=== PATIENT | male | born 2005 | race Two or more races ===

== ENCOUNTER 2023-07-08 09:20 | Outpatient (OUT) | payer OTHER, SELFPAY ==
[2023-07-08 12:25] LABS: TSH W/ REFLEX FT4 1.138 uIU/mL (0.516-4.130)
[2023-07-09 16:10] LABS: Thyroglobulin Antibody <1.0 IU/mL (0.0-0.9); Thyroid Peroxidase (TPO) Ab 9 IU/mL (0-26)
== END 2023-07-08 09:21 | disposition home or self-care (01) ==
LOC: LAB 09:24
PROVIDERS: PCP Nurse Practitioner Family; Visit Provider Nurse Practitioner Family
DX: E55.9 Vitamin D deficiency, unspecified (principal); Z83.49 Family history of other endocrine, nutritional and metabolic diseases; R53.83 Other fatigue
CPT/HCPCS: 36415; 82306; 84443; 86376; 86800

== ENCOUNTER 2023-08-06 20:53 | Emergency (ER) | payer OTHER, SELFPAY ==
[2023-08-06 21:00] VITALS: BP 149/88; PULSE 93; TEMP 36.4; O2SAT 100; BMI 51.5
--- NOTE | 2023-08-06 21:14 | XR_ITS ---
[address] [address] Patient Name: JET HERRERA MRN: [facility]:[id number] date: 2005 Sex: M Assigned Patient Location: ER Current Patient Location: ER Accession/Order Number: [id number] Exam Date: 08/06/2023 21:20 Report Date: 08/06/2023 21:54 At the request of: ELVIN MARKER Procedure: XR wrist LT min 3V Exam: Radiographs: XR hand LT min 3V, XR wrist LT min 3V Reason for exam: [facility] hand/wrist injury Comparison: None XR/XR wrist LT min 3V IMPRESSION: Unremarkable left hand radiographs. Unremarkable left wrist radiographs. Electronically authenticated by: YOSSI BUSTAMANTE Date: 08/06/2023 21:54
--- NOTE | 2023-08-06 21:14 | XR_ITS ---
[address] [address] Patient Name: JET HERRERA MRN: [id number] date: 2005 Sex: M Assigned Patient Location: ER Current Patient Location: ER Accession/Order Number: [id number] Exam Date: 08/06/2023 21:20 Report Date: 08/06/2023 21:54 At the request of: ELVIN MARKER Procedure: XR hand LT min 3V Exam: Radiographs: XR hand LT min 3V, XR wrist LT min 3V Reason for exam: [facility] hand/wrist injury Comparison: None XR/XR hand LT min 3V IMPRESSION: Unremarkable left hand radiographs. Unremarkable left wrist radiographs. Electronically authenticated by: YOSSI BUSTAMANTE Date: 08/06/2023 21:54
--- NOTE | 2023-08-06 21:14 | ED.UPPEXIN1 ---
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 The patient was at work and states he was picking up an approximately 10 pound item from a toad which he has to slide onto something else and at the time he was picking it up felt a snapping sensation in the medial aspect of his left hand. He now has pain and swelling at the 5th medial metacarpal region. There is some redness in this area. He states he can feel a lump in the proximal metacarpal area which I do not appreciate. He denies any blunt trauma. There is no numbness or tingling. He took an ibuprofen when the symptoms started several hours ago. No additional injuries or complaints. Related Data Home Medications ?Medication ?Instructions ?Recorded ?Confirmed cholecalciferol (vitamin D3) 1,250 50,000 unit PO .weekly 08/06/23 08/06/23 mcg (50,000 unit) capsule meloxicam 15 mg tablet 15 mg PO DAILY 08/06/23 08/06/23 Allergies Allergy/AdvReac Type Severity Reaction Status Date / Time Penicillins Allergy Hives Verified 08/06/23 21:06 Review of Systems ROS Status of ROS 10 or more systems reviewed and unremarkable except as noted in history and below Exam Narrative Exam Narrative: Nurses note and vital signs reviewed and patient is not hypoxic. General: Obese male resting currently on the stretcher, no respiratory distress Skin: Warm, dry, no pallor noted. There is no rash noted. Head: Normocephalic, atraumatic Eye: Normal conjunctiva, no drainage, EOMI. PERRL Cardiovascular: Regular Rate and Rhythm Respiratory: Patient is in no distress, no accessory muscle use, lungs are clear to auscultation, no wheezing, rales or rhonchi Musculoskeletal: There Is some mild redness to the medial aspect of the left hand overlying the 5th metacarpal. There is tenderness along the 5th metacarpal with no bony deformity is notable abnormality noted. The area is tender to palpation without appreciable swelling or bruising. As previously stated there was some erythema. Is able to approximate the thumb, index long and ring finger but not able to approximate the 5th finger. He is able to fully extend all of his fingers and make a loose fist. Distal sensation is intact. Capillary refill is less than 2 seconds. Radial pulse is brisk and equal. There is also some mild tenderness in the distal medial forearm no palpable deformity or abnormality. he is able to supinate and pronate without much discomfort but has discomfort with medial and lateral angulation of the hand. Neurological: A&O x4, normal speech Psychiatric: Cooperative Constitutional Vital Signs, click to edit/add: Last Vital Signs Temp 97.6 F 08/06/23 21:00 Pulse 93 H 08/06/23 21:00 Resp 16 08/06/23 21:00 BP 149/88 H 08/06/23 21:00 Pulse Ox 100 08/06/23 21:00 O2 Del Method Room Air 08/06/23 21:00 Course Vital Signs Vital signs: Vital Signs Temperature 97.6 F 08/06/23 21:00 Pulse Rate 93 H 08/06/23 21:00 Respiratory Rate 16 08/06/23 21:00 Blood Pressure 149/88 H 08/06/23 21:00 Pulse Oximetry 100 08/06/23 21:00 Oxygen Delivery Method Room Air 08/06/23 21:00 Temperature 97.6 F 08/06/23 21:00 Pulse Rate 93 H 08/06/23 21:00 Respiratory Rate 16 08/06/23 21:00 Blood Pressure 149/88 H 08/06/23 21:00 Pulse Oximetry 100 08/06/23 21:00 Oxygen Delivery Method Room Air 08/06/23 21:00 MDM - Extremity Injury (Upper) MDM Narrative Medical decision making narrative: 18-year-old male who is right-hand dominant presents for evaluation of pain in his left 5th metacarpal. He was at work and taking up in approximately 10 pound item and felt a snapping sensation in his left 5th metacarpal area. He has tenderness in this area with some decreased range of motion. His family is otherwise normal. I expect him that that was likely a tendon that he felt snapping and he may have some degree of tendinitis but clinically I do not suspect a tendon rupture. His neuro exam was normal. Capillary refill is normal. X-ray of the hand and wrist is negative for acute findings. He was placed in a wrist hand splint to immobilize this area of his hand and will be referred to outpatient Workmen's Comp. He had taken ibuprofen prior to arrival after the incident occurred but will be given a prescription for ibuprofen 600 mg to use as needed for ongoing pain. I believe he is stable for return to work despite this injury as the risks will also provide she will support to his hand. Medical Records Medical records narrative: [place] [address] XRay Report Signed Patient: JET HERRERA MR#: [id number] : 2005 Acct:[id number] Age/Sex: 18 / M ADM Date: 08/06/23 Loc: ER Attending Dr: Ordering Physician: Cindy Jacobson Date of Service: 08/06/23 Procedure(s): XR hand LT min 3V Accession Number(s): [id number] cc: Cindy Jacobson; SHERRI ORDOÑEZ [facility] [place] [id number] Patient Name: JET HERRERA MRN: [id number] date: 2005 Sex: M Assigned Patient Location: ER Current Patient Location: ER Accession/Order Number: [id number] Exam Date: 08/06/2023 21:20 Report Date: 08/06/2023 21:54 At the request of: CINDY JACOBSON Procedure: XR hand LT min 3V Exam: Radiographs: XR hand LT min 3V, XR wrist LT min 3V Reason for exam: [facility] hand/wrist injury Comparison: None XR/XR hand LT min 3V IMPRESSION: Unremarkable left hand radiographs. Unremarkable left wrist radiographs. Electronically authenticated by: YOSSI BUSTAMANTE Date: 08/06/2023 21:54 Discharge Plan Discharge Stand Alone Forms: Portal Instructions Clinical Impression: Left hand tendonitis Patient Disposition: Home, Self-Care Time of Disposition Decision: 22:11 Condition: Good Prescriptions / Home Meds: No Action cholecalciferol (vitamin D3) 1,250 mcg (50,000 unit) capsule 50,000 unit PO .weekly meloxicam 15 mg tablet 15 mg PO DAILY Print Language: Belarusian Instructions: Tendinitis (ED) Additional Instructions: Follow up with [facility] for further evaluation and treatment. Use ice, ibuprofen and the splint provided to you until symptoms resolve. Referrals: SHERRI ORDOÑEZ [Primary Care Provider] - 1 week
--- OUTSIDE RECORDS SUMMARY | 2023-08-06 21:14 | XMS_ITS | CCD ---
Author Organization [facility] Care Team Providers Care Reservoir Engineer Name Role Phone NAOMI ROD Unavailable Unavailable SELF, REFERRED Unavailable Unavailable HOUSE, BALJIT P Unavailable Unavailable HOUSE, BALJIT P Unavailable Unavailable NAOMI ROD Unavailable Unavailable SELF, REFERRED Unavailable Unavailable Devika King Unavailable HOUSE, DR COLLAZO Admitting Unavailable HOUSE, DR COLLAZO Primary Care Unavailable HOUSE, DR COLLAZO Consulting Unavailable HOUSE, DR COLLAZO Attending Unavailable HOUSE, DR COLLAZO Admitting Unavailable HOUSE, DR COLLAZO Primary Care Unavailable HOUSE, DR COLLAZO Consulting Unavailable HOUSE, DR COLLAZO Attending Unavailable HOUSE, DR COLLAZO Admitting Unavailable HOUSE, DR COLLAZO Consulting Unavailable HOUSE, DR COLLAZO Attending Unavailable [facility] [place], DR SANJAY Gavin Consulting Unavailable Asaad, Imad Unavailable DO Baljit Pisano Primary Care Provider [phone] MD Wilver Felton Attending Provider MD Lewis Mirza Attending Provider [phone] Manuelad, Imad Attending Unavailable HouseBaljit Primary Care Unavailable Asaad, Imad Admitting Unavailable House, Baljit Primary Care Unavailable Asaad, Imad Admitting Unavailable Asaad, Caad Attending Unavailable House, Baljit Primary Care Unavailable Lewis Mirza Admitting Unavailable Lewis Mirza Attending Unavailable Asaad, Imariana Attending Unavailable House, Baljit Primary Care Unavailable Asaad, Imad Admitting Unavailable HOUSE, BALJIT P Primary Care Unavailable Rafita Stover MD Attending Unavailable HOUSE, BALJIT P Admitting Unavailable HOUSE, BALJIT P Primary Care Unavailable HOUSE, BALJIT P Attending Unavailable HOUSE, BALJIT P Admitting Unavailable HOUSE, BALJIT P Attending Unavailable HOUSE, BALJIT P Primary Care Unavailable HOUSE, BALJIT P Admitting Unavailable HOUSE, BALJIT P Attending Unavailable HOUSE, BALJIT P Primary Care Unavailable HOUSE, BALJIT P Primary Care Unavailable Rafita Stover MD Attending Unavailable Rafita Stover MD Attending Unavailable HOUSE, BALJIT P Primary Care Unavailable HOUSE, BALJIT P Primary Care Unavailable Rafita Stover MD Attending Unavailable HOUSE, BALJIT P Primary Care Unavailable Rafita Stover MD Attending Unavailable HOUSE, BALJIT P Primary Care Unavailable Rafita Stover MD Attending Unavailable HOUSE, BALJIT P Primary Care Unavailable SANJAY WEBSTER Attending Unavailable WING, SANJAY Manning Attending Unavailable WING, SANJAY Manning Referring Unavailable HOUSE, BALJIT P Primary Care Unavailable House DO, Baljit P Primary Care Provider SHENMELAE VCYNYA Attending Unavailable HOUSE, BALJIT P Referring Unavailable HOUSE, BALJIT P Primary Care Unavailable SHENDGE V, MAGALIE Referring Unavailable HOUSE, BALJIT P Primary Care Unavailable Allergies Allergy Classification Reported Allergen(s) Allergy Type Date of Onset Reaction(s) Facility (1 source) penicillAMINE Drug Allergy [facility] Other (6 sources) Penicillin; Translations: [penicillin] Drug Allergy Unknown [facility] Repository (3 sources) Penicillins; Translations: [PENICILLINS] Drug allergy (disorder) 7 [facility] Repository (1 source) Penicillins Propensity to adverse reactions to drug 7 [facility] Medications Current Medications Medication Drug Class(es) Dates Sig (Normalized) Sig (Original) bismuth subsalicylate 17.5 mg/ml oral suspension (1 source) Bismuth Start: 12-26-2022 take 15 mL by mouth every six hours as needed bismuth subsalicylate (PEPTO BISMOL) 262 mg/15 mL suspension Take 15 mL by mouth every 6 (six) hours as needed for indigestion. 360 mL 0 12/26/2022 Active cariprazine (1 source) Atypical Antipsychotic Vraylar Active famotidine 20 mg oral tablet (1 source) Histamine-2 Receptor Antagonist Start: 12-26-2022 take 1 tablet by mouth in the morning, then take 1 tablet by mouth at bedtime famotidine (PEPCID) 20 mg tablet Take 1 tablet (20 mg total) by mouth in the morning and 1 tablet (20 mg total) before bedtime. 20 tablet 0 12/26/2022 Active ibuprofen 600 mg oral tablet (2 sources) Nonsteroidal Anti-inflammatory Drug Start: 06-30-2023 take 1 tablet by mouth every eight hours as needed for pain ibuprofen (MOTRIN) 600 mg tablet Take 1 tablet (600 mg total) by mouth every 8 (eight) hours as needed for pain. 12 tablet 0 06/30/2023 Active take 2 tablets by [facility] twice daily at mealtime as needed Ibuprofen 200 MG 2 tablet with food or milk as needed Orally twice a day Active meloxicam 15 mg oral tablet (1 source) Nonsteroidal Anti-inflammatory Drug Start: 07-21-2023 meloxicam (MOBIC) 15 mg tablet Indications: Chronic fatigue , Pain in both hands Take one tablet in the morning with food 30 tablet 2 07/21/2023 Active ondansetron 4 mg disintegrating oral tablet (1 source) Serotonin-3 Receptor Antagonist Start: 12-26-2022 take 1 tablet by mouth every eight hours as needed for nausea ondansetron ODT (ZOFRAN ODT) 4 mg disintegrating tablet Dissolve 1 tablet (4 mg total) on tongue every 8 (eight) hours as needed for nausea for up to 10 doses. 10 tablet 0 12/26/2022 Active tiZANidine 2 mg oral tablet (1 source) Central alpha-2 Adrenergic Agonist Start: 06-30-2023 take 1 tablet by mouth every six hours as needed tiZANidine (ZANAFLEX) 2 mg tablet Take 1 tablet (2 mg total) by mouth every 6 (six) hours as needed for muscle spasms. 12 tablet 0 06/30/2023 Active Problems Active Problems Problem Classification Problem Date Documented Da te Episodic/Chronic Hepatitis (7 sources) Hepatitis A test positive; Translations: [Hepatitis A without hepatic coma] Episodic Hepatitis (1 source) Hepatitis; Translations: [Hepatitis A without hepatic coma] Onset: 03-19-2023 Immunizations and screening for infectious disease (9 sources) Contact with and (suspected) exposure to other viral communicable diseases; Translations: [Anti-nuclear factor positive] Onset: 07-21-2023 Episodic Malaise and fatigue (2 sources) Fatigue; Translations: [Chronic fatigue, unspecified] Onset: 07-21-2023 07-21-2023 Chronic Malaise and fatigue (2 sources) Other fatigue; Translations: [Other fatigue] Onset: 04-21-2023 Episodic Nonspecific chest pain (2 sources) Other chest pain; Translations: [Chest pain, unspecified] Onset: 06-30-2023 Episodic Other connective tissue disease (4 sources) Pain in right lower leg; Translations: [PAIN IN RIGHT LOWER LEG] Onset: 07-03-2022 Episodic Other connective tissue disease (1 source) Pain of bilateral hands; Translations: [Pain in right hand] 07-21-2023 Episodic Other connective tissue disease (1 source) Pain in right hand; Translations: [Pain in right hand] Onset: 07-21-2023 Episodic Other connective tissue disease (1 source) Pain in left hand; Translations: [Pain in left hand] Onset: 07-21-2023 Episodic Other liver diseases (5 sources) Steatosis of liver; Translations: [Fatty (change of) liver, not elsewhere classified] Chronic Other liver diseases (4 sources) Fatty (change of) liver, not elsewhere classified; Translations: [Fatty (change of) liver, not elsewhere classified] Onset: 04-01-2023 Chronic Other lower respiratory disease (1 source) Rib pain Onset: 06-30-2023 Episodic Other nervous system disorders (1 source) Bilateral carpal tunnel syndrome; Translations: [Carpal tunnel syndrome, bilateral upper limbs] 07-21-2023 Chronic Other nervous system disorders (1 source) Carpal tunnel syndrome, bilateral upper limbs; Translations: [Carpal tunnel syndrome, bilateral upper limbs] Onset: 07-21-2023 Chronic Other non-traumatic joint disorders (4 sources) Other specified arthritis, unspecified site; Translations: [OTHER SPECIFIED ARTHRITIS UNS SITE] Onset: 09-15-2022 Chronic Other screening for suspected conditions (not mental disorders or infectious disease) (10 sources) Elevated liver enzymes level; Translations: [Other specified abnormal findings of blood chemistry] Onset: 03-19-2023 Episodic Other upper respiratory infections (1 source) Acute upper respiratory infection, unspecified Episodic Unclassified (1 source) Pain in right knee; Translations: [Pain in right knee] Onset: 05-19-2023 Unclassified (1 source) Underarm pain Onset: 06-30-2023 Unclassified (1 source) New Patient Onset: 07-21-2023 Past or Other Problems Problem Classification Problem Date Documented Da te Episodic/Chronic Appendicitis and other appendiceal conditions (1 source) Acute appendicitis; Translations: [Unspecified acute appendicitis] Onset: 02-20-2022 02-20-2022 Episodic Results Test Name Value Interpretation Reference Range Facility XR OSSEOUS SURVEY LIMITEDon 07-22-2023 XR OSSEOUS SURVEY LIMITED XR OSSEOUS SURVEY LIMITED XR OSSEOUS SURVEY LIMITED Clinical history:Pain in both hands Comparison: None. Findings: AP and oblique views of the left and right hand and left and right wrist obtained the same time. There is no acute process, fracture or dislocation. Alignment and mineralization are within normal limits. No erosive changes or soft tissue calcifications. Impression: Unremarkable evaluation of the bilateral hands and wrists. No evidence of acute process or erosive change. Finalized by Dean Palm MD on 07/22/2023 8:15 PM Normal [facility] BASIC METABOLIC PANLon 06-30 Anion gap [Moles/Vol] 6 mmol/L Normal 5-[address] [facility] Comment on above: Performed By: #### B ASAF, CBCA, 04678-2, 19173-0 #### [facility] ([id number]) [address] [place] [address] 77521 Calcium [Mass/Vol] 8.9 mg/dL Normal 8.5-10.5 [facility] Comment on above: Performed By: #### B ASAF, CBCA, 10886-5, 80533-3 #### [facility] ([id number]) [address] [place] [address] 96784 Chloride [Moles/Vol] 104 mmol/L Normal 98-109 [facility] Comment on above: Performed By: #### B MP, CBCA, 06383-0, 08758-1 #### [facility] ([id number]) [address] [place] [address] 47938 CO2 [Moles/Vol] 24 mmol/L Normal 22-32 [facility] Comment on above: Performed By: #### B MP, CBCA, 41581-6, 48561-9 #### [facility] ([id number]) [address] [place] [address] 14088 Creatinine [Mass/Vol] 0.83 mg/dL Normal 0.70-1.[address] [facility] Comment on above: Result Comment: METH OD TRACEABLE TO IDMS STANDARD Performed By: #### B SHERLYN RON, 52505-2, 80972-6 #### [facility] ([id number]) [address] [place] [address] 56321 eGFR (CKD-EPI) NON-RACE DEPENDENT >90 Normal >59 [facility] Comment on above: Result Comment: Reported eGFR is based on the CKD-EPI 2020 equation that does not use a race coefficient. Performed By: #### B SHERLYN RON, 70897-5, 82537-6 #### [facility] ([id number]) [address] [place] [address] 09844 Glucose [Mass/Vol] 103 mg/dL High 65-99 [facility] Comment on above: Performed By: #### B SHERLYN RON, 39191-2, 26672-7 #### [facility] ([id number]) [address] [place] [address] 58614 Potassium [Moles/Vol] 3.7 mmol/L Normal 3.5-5.[address] [facility] Comment on above: Performed By: #### B SHERLYN RON, 57528-8, 42387-2 #### [facility] ([id number]) [address] [place] [address] 50132 Sodium [Moles/Vol] 134 mmol/L Normal 134-146 [facility] Comment on above: Performed By: #### B SHERLYN RON, 52063-5, 11738-0 #### [facility] ([id number]) [address] [place] [address] 57903 Urea nitrogen [Mass/Vol] 10 mg/dL Normal 5-23 [facility] Comment on above: Performed By: #### B SHERLYN RON, 07851-1, 01161-7 #### [facility] ([id number]) [address] [place] [address] 97852 CBC AND AUTO DIFFon -20-20 24 ABSOLUTE BASOPHIL 0.0 X10E9/L Normal 0.0-0.2 [facility] Comment on above: Performed By: #### B MP, CBCA, 16764-3, 42943-4 #### [facility] ([id number]) [address] [place] [address] 33923 ABSOLUTE NEUTROPHIL 2.6 X10E9/L Normal 1.5-6.6 [facility] Comment on above: Performed By: #### B MP, CBCA, 51381-2, 45520-2 #### [facility] ([id number]) [address] [place] [address] 41249 Basophils/100 WBC (Bld) 0.6 % Normal [facility] Comment on above: Performed By: #### B MP, CBCA, 01929-3, 55001-6 #### [facility] ([id number]) [address] [place] [address] 88264 Eosinophils (Bld) [#/Vol] 0.1 10*3/uL Normal 0.0-0.4 [facility] Comment on above: Performed By: #### B MP, CBCA, 51198-3, 51203-1 #### [facility] ([id number]) [address] [place] [address] 77739 Eosinophils/100 WBC (Bld) 2.7 % Normal [facility] Comment on above: Performed By: #### B MP, CBCA, 71992-8, 74122-6 #### [facility] ([id number]) [address] [place] [address] 17974 Erythrocyte distribution width (RBC) [Ratio] 13.3 % Normal 11.5-15.0 [facility] Comment on above: Performed By: #### B MP, CBCA, 16751-8, 27973-7 #### [facility] ([id number]) [address] [place] [address] 12153 Hematocrit (Bld) [Volume fraction] 41.2 % Normal 39-49 [facility] Comment on above: Performed By: #### B MP, CBCA, 85253-4, 13546-2 #### [facility] ([id number]) [address] [place] [address] 38893 Hemoglobin (Bld) [Mass/Vol] 14.3 g/dL Normal 13.0-17.0 [facility] Comment on above: Performed By: #### B MP, CBCA, 48342-3, 06470-1 #### [facility] ([id number]) [address] [place] [address] 24872 Lymphocytes (Bld) [#/Vol] 1.4 10*3/uL Normal 1.0-3.5 [facility] Comment on above: Performed By: #### B ASAF, CBCA, 78880-0, 31962-5 #### [facility] ([id number]) [address] [place] [address] 36492 Lymphocytes/100 WBC (Bld) 30.6 % Normal [facility] Comment on above: Performed By: #### B MP, CBCA, 31894-3, 33111-4 #### [facility] ([id number]) [address] [place] [address] 58456 MCH (RBC) [Entitic mass] 29.7 pg Normal 27-34 [facility] Comment on above: Performed By: #### B MP, CBCA, 90226-7, 51467-6 #### [facility] ([id number]) [address] [place] [address] 00769 MCHC (RBC) [Mass/Vol] 34.7 g/dL Normal 32-[address] [facility] Comment on above: Performed By: #### B ASAF, CBCA, 55507-5, 73070-3 #### [facility] ([id number]) [address] [place] [address] 20903 MCV (RBC) [Entitic vol] 86 fL Normal 80-100 [facility] Comment on above: Performed By: #### B ASAF, CBCA, 08470-5, 26566-3 #### [facility] ([id number]) [address] [place] [address] 72364 Monocytes (Bld) [#/Vol] 0.6 10*3/uL Normal 0-0.9 [facility] Comment on above: Performed By: #### B ASAF, CBCA, 52107-5, 97454-9 #### [facility] ([id number]) [address] [place] [address] 70808 Monocytes/100 WBC (Bld) 11.8 % Normal [facility] Comment on above: Performed By: #### B ASAF, CBCA, 92602-9, 05077-1 #### [facility] ([id number]) [address] [place] [address] 22508 Neutrophils/100 WBC (Bld) 54.3 % Normal [facility] Comment on above: Performed By: #### B ASAF, CBCA, 31127-9, 04999-0 #### [facility] ([id number]) [address] [place] [address] 81946 Platelet mean volume (Bld) [Entitic vol] 9.1 fL Normal 7-12 [facility] Comment on above: Performed By: #### B ASAF, CBCA, 70965-9, 63780-5 #### [facility] ([id number]) [address] [place] [address] 08323 Platelets (Bld) [#/Vol] 236 10*3/uL Normal 150-450 [facility] Comment on above: Performed By: #### B MP, CBCA, 03564-4, 41689-2 #### [facility] ([id number]) [address] [place] [address] 47307 RBC COUNT 4.82 X10E12/L Normal 4.10-5.70 [facility] Comment on above: Performed By: #### B MP, CBCA, 12978-3, 20379-8 #### [facility] ([id number]) [address] [place] [address] 40476 WBC (Bld) [#/Vol] 4.7 10*3/uL Normal 4.0-11.0 [facility] Comment on above: Performed By: #### B MP, CBCA, 84100-1, 50669-6 #### [facility] ([id number]) [address] [place] [address] 02249 Fibrin D-dimer DDU (PPP) [Ma ss/Vol]on 06-30-2023 D DIMER <150 Normal <255 [facility] Comment on above: Result Comment: Results <255 ng/mL DDU: The presence of a VTE can safely be excluded with a negative D-Dimer result and Wells score. A negative result doesn't exclude the possibility of DIC. The test be repeated along with other diagnostic tests if the patient's symptoms persist or worsen. [email or web address] Performed By: #### B MP, CBCA, 09431-5, 34941-0 #### [facility] ([id number]) [address] [place] [address] 41989 TROPONIN Ion 06-30-2023 Troponin I.cardiac [Mass/Vol] ng/mL Normal 0.00-0.04 [facility] Comment on above: Performed By: #### B MP, CBCA, 72183-7, 54259-9 #### [facility] ([id number]) [address] [facility] [place]], [place] [address] XR CHEST 2 VWSon 06-30-2023 XR CHEST 2 VWS XR CHEST 2 VWS XR CHEST 2 VWS INDICATION: right sided chest pain. Chest pain FINDINGS: Cardiac silhouette is normal in size. Trachea midline. No focal pulmonary consolidation. No pleural effusion. No pneumothorax. IMPRESSION: 1. No acute findings. Finalized by Dwaine Sharpe MD on 06/30/2023 5:11 AM Normal [facility] Miscellaneouson 06-22-2023 Miscellaneous [id number] [id number]#[id number] FF Normal [facility] Office/Clinic Noteon 024 Miscellaneous [id number] 17612 [id number]#1.00OTGT IFF Normal [facility] Office/Clinic Note [id number] [id number]#1.00OTGT IFF [facility] Alanine aminotransferase [En zymatic activity/volume] in Serum or PlasmaOrdered By: Lewis Mirza on 05-19-2023 ALT [Catalytic activity/Vol] 56 U/L 7-52 [facility] Albumin [Mass/volume] in Ser um or Plasma by Bromocresol green (BCG) dye binding methoOrdered By: Lewis Mirza on 05-19-2023 Albumin BCG dye [Mass/Vol] 4.4 g/dL 3.5-5.7 [facility] Alkaline phosphatase [Enzyma tic activity/volume] in Serum or PlasmaOrdered By: Lewis Mirza on 05-19-2023 ALP [Catalytic activity/Vol] 58 U/L 34-104 [facility] Anti-Centromere B Antibodies on 05-19-2023 Anti-Centromere B Antibodies <0.2 Normal 0.0-0.9 [facility] Comment on above: Result Comment: Perf ormed at: - [facility] [address] [id number] Drafter Electrical: Zechariah Paula PhD, Phone: [phone] Performed By: #### I GG, SMAB, MITOM2, L-K MICRO, ALPHA PHEN, HEMOCHROM, CERULOP, TENA #### [facility] , #### PARVEEN, TSH3 #### [address] Anti-RNPon 05-19-2023 Anti-DIRECTOR REGULATORY COMPLIANCE 0.6 Normal 0.0-0.9 [facility] Comment on above: Performed By: #### I GG, SMAB, MITOM2, L-K MICRO, ALPHA PHEN, HEMOCHROM, CERULOP, TENA #### [facility] , #### PARVEEN, TSH3 #### [address] Anti-Newberry Antibodieson Anti-Newberry Antibodies <0.2 Normal 0.0-0.9 [facility] Comment on above: Performed By: #### I GG, SMAB, MITOM2, L-K MICRO, ALPHA PHEN, HEMOCHROM, CERULOP, TENA #### [facility] , #### PARVEEN, TSH3 #### [address] Anti-dsDNA(DBL)Abon 05-19-19 24 Anti-dsDNA(DBL)Ab 3 Normal 0-9 [facility] Comment on above: Result Comment: Nega tive <5 Equivocal 5 - 9 Positive >9 Performed By: #### I GG, SMAB, MITOM2, L-K MICRO, ALPHA PHEN, HEMOCHROM, CERULOP, TENA #### [facility] , #### PARVEEN, TSH3 #### [address] Aspartate aminotransferase [ Enzymatic activity/volume] in Serum or PlasmaOrdered By: Lewis Mirza on 05-19-2023 AST [Catalytic activity/Vol] 30 U/L 13-39 [facility] Automated erythrocytes count in urine sediment (number/area)Ordered By: Lewis Mirza on 05-19-2023 RBC Auto (Urine sed) [#/Area] 1-2 [HPF] 0-4 [facility] Automated leukocytes count i n urine sediment (number/area)Ordered By: Lewis Mirza on 05-19-2023 WBC Auto (Urine sed) [#/Area] None seen [HPF] 0-4 [facility] Basophils Auto (Bld) [#/Vol] Ordered By: Lewis Mirza on 05-19-2023 Basophils (Bld) [#/Vol] 0.0 10*3/uL 0.0-0.2 [facility] Basophils/100 WBC Auto (Bld) Ordered By: Lewis Mirza on 05-19-2023 Basophils/100 WBC (Bld) 0.7 % . [facility] Bilirubin Test strip Ql (U)O rdered By: Lewis Mirza on 05-19-2023 Bilirubin Ql (U) Negative Negative [facility] Bilirubin.total [Mass/volume ] in Serum or PlasmaOrdered By: Lewis Mirza on 05-19-2023 Bilirubin [Mass/Vol] 0.8 mg/dL 0.3-1.0 [facility] C reactive protein [Mass/vol ume] in Serum or PlasmaOrdered By: Lewis Mirza on 05-19-2023 CRP [Mass/Vol] < 0.5 mg/dL 0.0-0.5 [facility] C-Reactive Proteinon 024 CRP [Mass/Vol] mg/L Normal 0.0-0.5 [facility] Comment on above: Performed By: #### I GG, SMAB, MITOM2, L-K MICRO, ALPHA PHEN, HEMOCHROM, CERULOP, TENA #### [facility] , #### PARVEEN, TSH3 #### [facility] [address] Calcium [Mass/volume] in Ser um or PlasmaOrdered By: Lewis Mirza on 05-19-2023 Calcium [Mass/Vol] 9.4 mg/dL 8.6-10.3 [facility] Carbon dioxide, total [Moles /volume] in Serum or PlasmaOrdered By: Lewis Mirza on 05-19-2023 CO2 [Moles/Vol] 23.5 mmol/L 21.0-31.0 [facility] Chloride [Moles/volume] in S saima or PlasmaOrdered By: Lewis Mirza on 05-19-2023 Chloride [Moles/Vol] 107 mmol/L 98-107 [facility] Color Auto (U)Ordered By: Jenny Mirza on 05-19-2023 Color (U) Yellow Yellow [facility] Complement C3on 05-19-2023 Complement C3 161 mg/dL Normal 82-167 [facility] Comment on above: Result Comment: Perf ormed at: [facility] [address] [id number] Drafter Electrical: Zechariah Paula PhD, Phone: [phone] Performed By: #### I GG, SMAB, MITOM2, L-K MICRO, ALPHA PHEN, HEMOCHROM, CERULOP, TENA #### [facility] , #### PARVEEN, TSH3 #### [facility] [address] Complement C4on 05-19-2023 Complement C4 24 mg/dL Normal 12-38 [facility] Comment on above: Performed By: #### I GG, SMAB, MITOM2, L-K MICRO, ALPHA PHEN, HEMOCHROM, CERULOP, TENA #### [facility] , #### PARVEEN, TSH3 #### [facility] [address] [place] [address] [place] Complement Total (CH50)on Complement Total (CH50) 49 Normal >41 [facility] Comment on above: Result Comment: Age Male Female 1 - 30 days Not Estab. Not Estab. 31 days - 6 months >32 >20 7 months - 17 years >39 >39 >17 years >41 >41 NOTE: The adult ( >17 years ) reference interval range is used to flag abnormals on this report. If the patient is 17 years old or younger, use the table above to determine out of range values. Performed at: [facility] [address] [place] [id number] Drafter Electrical: Zechariah Paula PhD, Phone: [phone] PERFORMED BY: [place] [address] PATHOLOGIST LINING MAKER LISA COOLEY M.D. Performed By: #### I GG, SMAB, MITOM2, L-K MICRO, ALPHA PHEN, HEMOCHROM, CERULOP, TENA #### [facility] , #### PARVEEN, TSH3 #### [address] Complete Blood Count Auto Di ffon 05-19-2023 Basophils (Bld) [#/Vol] 0.0 10*3/uL Normal 0.0-0.2 [facility] Comment on above: Performed By: #### I GG, SMAB, MITOM2, L-K MICRO, ALPHA PHEN, HEMOCHROM, CERULOP, TENA #### [facility] , #### PARVEEN, TSH3 #### [address] Basophils/100 WBC (Bld) 0.7 % Normal . [facility] Comment on above: Performed By: #### I GG, SMAB, MITOM2, L-K MICRO, ALPHA PHEN, HEMOCHROM, CERULOP, TENA #### [facility] , #### PARVEEN, TSH3 #### [address] Eosinophils (Bld) [#/Vol] 0.2 10*3/uL Normal 0.0-0.45 [facility] Comment on above: Performed By: #### I GG, SMAB, MITOM2, L-K MICRO, ALPHA PHEN, HEMOCHROM, CERULOP, TENA #### [facility] , #### PARVEEN, TSH3 #### [address] Eosinophils/100 WBC (Bld) 2.7 % Normal . [facility] Comment on above: Performed By: #### I GG, SMAB, MITOM2, L-K MICRO, ALPHA PHEN, HEMOCHROM, CERULOP, TENA #### [facility] , #### PARVEEN, TSH3 #### [address] Erythrocyte distribution width (RBC) [Ratio] 13.0 % Normal 12.0-14.8 [facility] Comment on above: Performed By: #### I GG, SMAB, MITOM2, L-K MICRO, ALPHA PHEN, HEMOCHROM, CERULOP, TENA #### [facility] , #### PARVEEN, TSH3 #### [address] Hematocrit (Bld) [Volume fraction] 41.7 % Normal 38.8-50.0 [facility] Comment on above: Performed By: #### I GG, SMAB, MITOM2, L-K MICRO, ALPHA PHEN, HEMOCHROM, CERULOP, TENA #### [facility] , #### PARVEEN, TSH3 #### [address] Hemoglobin (Bld) [Mass/Vol] 14.2 g/dL Normal 13.0-17.0 [facility] Comment on above: Performed By: #### I GG, SMAB, MITOM2, L-K MICRO, ALPHA PHEN, HEMOCHROM, CERULOP, TENA #### [facility] , #### PARVEEN, TSH3 #### [address] Lymphocytes (Bld) [#/Vol] 2.1 10*3/uL Normal 1.00-4.8 [facility] Comment on above: Performed By: #### I GG, SMAB, MITOM2, L-K MICRO, ALPHA PHEN, HEMOCHROM, CERULOP, TENA #### [facility] , #### PARVEEN, TSH3 #### [address] Lymphocytes/100 WBC (Bld) 32.5 % Normal . [facility] Comment on above: Performed By: #### I GG, SMAB, MITOM2, L-K MICRO, ALPHA PHEN, HEMOCHROM, CERULOP, TENA #### [facility] , #### PARVEEN, TSH3 #### [address] MCH (RBC) [Entitic mass] 29.3 pg Normal 27.5-35.2 [facility] Comment on above: Performed By: #### I GG, SMAB, MITOM2, L-K MICRO, ALPHA PHEN, HEMOCHROM, CERULOP, TENA #### [facility] , #### PARVEEN, TSH3 #### [address] MCV (RBC) [Entitic vol] 86.0 fL Normal 83.5-101 [facility] Comment on above: Performed By: #### I GG, SMAB, MITOM2, L-K MICRO, ALPHA PHEN, HEMOCHROM, CERULOP, TENA #### [facility] , #### PARVEEN, TSH3 #### [address] Mean Corpuscular HGB Conc 34.1 g/dL Normal 32.5-35.6 [facility] Comment on above: Performed By: #### I GG, SMAB, MITOM2, L-K MICRO, ALPHA PHEN, HEMOCHROM, CERULOP, TENA #### [facility] , #### PARVEEN, TSH3 #### [address] Monocytes (Bld) [#/Vol] 0.7 10*3/uL Normal 0.0-0.8 [facility] Comment on above: Performed By: #### I GG, SMAB, MITOM2, L-K MICRO, ALPHA PHEN, HEMOCHROM, CERULOP, TENA #### [facility] , #### PARVEEN, TSH3 #### [address] Monocytes/100 WBC (Bld) 10.7 % Normal . [facility] Comment on above: Performed By: #### I GG, SMAB, MITOM2, L-K MICRO, ALPHA PHEN, HEMOCHROM, CERULOP, TENA #### [facility] , #### PARVEEN, TSH3 #### [address] Neutrophils (Bld) [#/Vol] 3.4 10*3/uL Normal 1.8-7.7 [facility] Comment on above: Performed By: #### I GG, SMAB, MITOM2, L-K MICRO, ALPHA PHEN, HEMOCHROM, CERULOP, TENA #### [facility] , #### PARVEEN, TSH3 #### [address] Neutrophils/100 WBC (Bld) 53.4 % Normal . [facility] Comment on above: Performed By: #### I GG, SMAB, MITOM2, L-K MICRO, ALPHA PHEN, HEMOCHROM, CERULOP, TENA #### [facility] , #### PARVEEN, TSH3 #### [address] NRBC% 0.2 /100{WBC} Normal 0-0.5 [facility] Comment on above: Performed By: #### I GG, SMAB, MITOM2, L-K MICRO, ALPHA PHEN, HEMOCHROM, CERULOP, TENA #### [facility] , #### PARVEEN, TSH3 #### [address] Platelet mean volume (Bld) [Entitic vol] 9.2 fL Normal 6.6-10.1 [facility] Comment on above: Performed By: #### I GG, SMAB, MITOM2, L-K MICRO, ALPHA PHEN, HEMOCHROM, CERULOP, TENA #### [facility] , #### PARVEEN, TSH3 #### [address] Platelets (Bld) [#/Vol] 254 10*3/uL Normal 150-450 [facility] Comment on above: Performed By: #### I GG, SMAB, MITOM2, L-K MICRO, ALPHA PHEN, HEMOCHROM, CERULOP, TENA #### [facility] , #### PARVEEN, TSH3 #### [address] RBC (Bld) [#/Vol] 4.85 10*6/uL Normal 3.90-5.60 [facility] Comment on above: Performed By: #### I GG, SMAB, MITOM2, L-K MICRO, ALPHA PHEN, HEMOCHROM, CERULOP, TENA #### [facility] , #### PARVEEN, TSH3 #### [address] WBC (Bld) [#/Vol] 6.4 10*3/uL Normal 4.1-10.5 [facility] Comment on above: Performed By: #### I GG, SMAB, MITOM2, L-K MICRO, ALPHA PHEN, HEMOCHROM, CERULOP, TENA #### [facility] , #### PARVEEN, TSH3 #### [address] Comprehensive Metabolic Pane adrianna 05-19-2023 Albumin [Mass/Vol] 4.4 g/dL Normal 3.5-5.7 [facility] Comment on above: Performed By: #### I GG, SMAB, MITOM2, L-K MICRO, ALPHA PHEN, HEMOCHROM, CERULOP, TENA #### [facility] , #### PARVEEN, TSH3 #### [address] Albumin/Globulin [Mass ratio] 1.6 {ratio} Normal [facility] Comment on above: Performed By: #### I GG, SMAB, MITOM2, L-K MICRO, ALPHA PHEN, HEMOCHROM, CERULOP, TENA #### [facility] , #### PARVEEN, TSH3 #### [address] ALP [Catalytic activity/Vol] 58 U/L Normal 34-104 [facility] Comment on above: Performed By: #### I GG, SMAB, MITOM2, L-K MICRO, ALPHA PHEN, HEMOCHROM, CERULOP, TENA #### [facility] , #### PARVEEN, TSH3 #### [address] ALT [Catalytic activity/Vol] 56 U/L High 7-52 [facility] Comment on above: Performed By: #### I GG, SMAB, MITOM2, L-K MICRO, ALPHA PHEN, HEMOCHROM, CERULOP, TENA #### [facility] , #### PARVEEN, TSH3 #### [address] Anion gap [Moles/Vol] 14.3 mmol/L Normal 6.0-15.0 [facility] Comment on above: Performed By: #### I GG, SMAB, MITOM2, L-K MICRO, ALPHA PHEN, HEMOCHROM, CERULOP, TENA #### [facility] , #### PARVEEN, TSH3 #### [address] AST [Catalytic activity/Vol] 30 U/L Normal 13-39 [facility] Comment on above: Performed By: #### I GG, SMAB, MITOM2, L-K MICRO, ALPHA PHEN, HEMOCHROM, CERULOP, TENA #### [facility] , #### PARVEEN, TSH3 #### [address] Bilirubin [Mass/Vol] 0.8 mg/dL Normal 0.3-1.0 [facility] Comment on above: Performed By: #### I GG, SMAB, MITOM2, L-K MICRO, ALPHA PHEN, HEMOCHROM, CERULOP, TENA #### [facility] , #### PARVEEN, TSH3 #### [address] Calcium [Mass/Vol] 9.4 mg/dL Normal 8.6-10.3 [facility] Comment on above: Performed By: #### I GG, SMAB, MITOM2, L-K MICRO, ALPHA PHEN, HEMOCHROM, CERULOP, TENA #### [facility] , #### PARVEEN, TSH3 #### [address] Chloride [Moles/Vol] 107 mmol/L Normal 98-107 [facility] Comment on above: Performed By: #### I GG, SMAB, MITOM2, L-K MICRO, ALPHA PHEN, HEMOCHROM, CERULOP, TENA #### [facility] , #### PARVEEN, TSH3 #### [address] CO2 [Moles/Vol] 23.5 mmol/L Normal 21.0-31.0 [facility] Comment on above: Performed By: #### I GG, SMAB, MITOM2, L-K MICRO, ALPHA PHEN, HEMOCHROM, CERULOP, TENA #### [facility] , #### PARVEEN, TSH3 #### [address] Creatinine [Mass/Vol] 0.78 mg/dL Normal 0.70-1.30 [facility] Comment on above: Performed By: #### I GG, SMAB, MITOM2, L-K MICRO, ALPHA PHEN, HEMOCHROM, CERULOP, TENA #### [facility] , #### PARVEEN, TSH3 #### [address] GFR/1.73 sq M.predicted MDRD (S/P/Bld) [Vol rate/Area] mL/min/{1.73_m2} [facility] Comment on above: Performed By: #### I GG, SMAB, MITOM2, L-K MICRO, ALPHA PHEN, HEMOCHROM, CERULOP, TENA #### [facility] , #### PARVEEN, TSH3 #### [address] Globulin (S) [Mass/Vol] 2.7 g/dL [facility] Comment on above: Performed By: #### I GG, SMAB, MITOM2, L-K MICRO, ALPHA PHEN, HEMOCHROM, CERULOP, TENA #### [facility] , #### PARVEEN, TSH3 #### [address] Glucose [Mass/Vol] 98 mg/dL Normal 70-100 [facility] Comment on above: Result Comment: [facility] Glucose Reference Range is dependent on time and content of last meal. Glucose of more than 200 mg/dL in a nonstressed, ambulatory subject supports the diagnosis of Diabetes Mellitus. ADA recommended reference range Performed By: #### I GG, SMAB, MITOM2, L-K MICRO, ALPHA PHEN, HEMOCHROM, CERULOP, TENA #### [facility] , #### PARVEEN, TSH3 #### [address] Potassium [Moles/Vol] 3.8 mmol/L Normal 3.5-5.1 [facility] Comment on above: Performed By: #### I GG, SMAB, MITOM2, L-K MICRO, ALPHA PHEN, HEMOCHROM, CERULOP, TENA #### [facility] , #### PARVEEN, TSH3 #### [address] Protein [Mass/Vol] 7.1 g/dL Normal 6.4-8.9 [facility] Comment on above: Performed By: #### I GG, SMAB, MITOM2, L-K MICRO, ALPHA PHEN, HEMOCHROM, CERULOP, TENA #### [facility] , #### PARVEEN, TSH3 #### [address] Sodium [Moles/Vol] 141 mmol/L Normal 136-145 [facility] Comment on above: Performed By: #### I GG, SMAB, MITOM2, L-K MICRO, ALPHA PHEN, HEMOCHROM, CERULOP, TENA #### [facility] , #### PARVEEN, TSH3 #### [address] Urea nitrogen [Mass/Vol] 10 mg/dL Normal 7-25 [facility] Comment on above: Performed By: #### I GG, SMAB, MITOM2, L-K MICRO, ALPHA PHEN, HEMOCHROM, CERULOP, TENA #### [facility] , #### PARVEEN, TSH3 #### [address] Creatine Kinaseon 05-19-2023 CK [Catalytic activity/Vol] 112 U/L Normal 30-223 [facility] Comment on above: Result Comment: PERF ORMED BY: [place] [id number] PATHOLOGIST [employer] LISA COOLEY M.D. Performed By: #### I GG, SMAB, MITOM2, L-K MICRO, ALPHA PHEN, HEMOCHROM, CERULOP, TENA #### [facility] , #### PARVEEN, TSH3 #### [facility] [address] [place] [address] [place] Creatine kinase [Enzymatic a ctivity/volume] in Serum or PlasmaOrdered By: Lewis Mirza on 05-19-2023 CK [Catalytic activity/Vol] 112 U/L 30-223 [facility] Creatinine [Mass/volume] in Serum or PlasmaOrdered By: Lewis Mirza on 05-19-2023 Creatinine [Mass/Vol] 0.78 mg/dL 0.70-1.30 [facility] Dipstick and Microscopicon 0 05-19-2023 Appearance (U) Clear Normal Clear [facility] Comment on above: Order Comment: Reaso n for Exam Elevated LFTs Performed By: #### I GG, SMAB, MITOM2, L-K MICRO, ALPHA PHEN, HEMOCHROM, CERULOP, TENA #### [facility] , #### PARVEEN, TSH3 #### [facility] [address] [place] [address] Bacteria,Urine None Seen Normal None Seen [facility] Comment on above: Order Comment: Reaso n for Exam Elevated LFTs Performed By: #### I GG, SMAB, MITOM2, L-K MICRO, ALPHA PHEN, HEMOCHROM, CERULOP, TENA #### [facility] , #### PARVEEN, TSH3 #### [facility] [address] [place] [address] Bilirubin,Urine Negative Normal Negative [facility] Comment on above: Order Comment: Reaso n for Exam Elevated LFTs Performed By: #### I GG, SMAB, MITOM2, L-K MICRO, ALPHA PHEN, HEMOCHROM, CERULOP, TENA #### [facility] , #### PARVEEN, TSH3 #### [facility] [address] [place] [address] Color (U) Yellow Normal Yellow [facility] Comment on above: Order Comment: Reaso n for Exam Elevated LFTs Performed By: #### I GG, SMAB, MITOM2, L-K MICRO, ALPHA PHEN, HEMOCHROM, CERULOP, TENA #### [facility] , #### PARVEEN, TSH3 #### [facility] [address] [place] [address] Glucose Ql (U) Normal Normal Normal [facility] Comment on above: Order Comment: Reaso n for Exam Elevated LFTs Performed By: #### I GG, SMAB, MITOM2, L-K MICRO, ALPHA PHEN, HEMOCHROM, CERULOP, TENA #### [facility] , #### PARVEEN, TSH3 #### [address] Hyaline Casts,Urine None Seen Normal 0-8 [facility] Comment on above: Order Comment: Reaso n for Exam Elevated LFTs Result Comment: PERF ORMED BY: [place] [address] PATHOLOGIST [employer] LISA COOLEY M.D. Performed By: #### I GG, SMAB, MITOM2, L-K MICRO, ALPHA PHEN, HEMOCHROM, CERULOP, TENA #### [facility] , #### PARVEEN, TSH3 #### [address] Ketones Ql (U) Negative Normal Negative [facility] Comment on above: Order Comment: Reaso n for Exam Elevated LFTs Performed By: #### I GG, SMAB, MITOM2, L-K MICRO, ALPHA PHEN, HEMOCHROM, CERULOP, TENA #### [facility] , #### PARVEEN, TSH3 #### [address] Leukocyte esterase Test strip Ql (U) Negative Normal Negative [facility] Comment on above: Order Comment: Reaso n for Exam Elevated LFTs Performed By: #### I GG, SMAB, MITOM2, L-K MICRO, ALPHA PHEN, HEMOCHROM, CERULOP, TENA #### [facility] , #### PARVEEN, TSH3 #### [facility] [address] [place] [address] Nitrite,Urine Negative Normal Negative [facility] Comment on above: Order Comment: Reaso n for Exam Elevated LFTs Performed By: #### I GG, SMAB, MITOM2, L-K MICRO, ALPHA PHEN, HEMOCHROM, CERULOP, TENA #### [facility] , #### PARVEEN, TSH3 #### [address] Occult Blood,Urine Negative Normal Negative [facility] Comment on above: Order Comment: Reaso n for Exam Elevated LFTs Performed By: #### I GG, SMAB, MITOM2, L-K MICRO, ALPHA PHEN, HEMOCHROM, CERULOP, TENA #### [facility] , #### PARVEEN, TSH3 #### [address] pH (U) 5.5 [pH] Normal 5.0-9.0 [facility] Comment on above: Order Comment: Reaso n for Exam Elevated LFTs Performed By: #### I GG, SMAB, MITOM2, L-K MICRO, ALPHA PHEN, HEMOCHROM, CERULOP, TENA #### [facility] , #### PARVEEN, TSH3 #### [address] Protein,Urine Negative Normal Negative [facility] Comment on above: Order Comment: Reaso n for Exam Elevated LFTs Performed By: #### I GG, SMAB, MITOM2, L-K MICRO, ALPHA PHEN, HEMOCHROM, CERULOP, TENA #### [facility] , #### PARVEEN, TSH3 #### [address] RBC,Urine 1-2 Normal 0-4 [facility] Comment on above: Order Comment: Reaso n for Exam Elevated LFTs Performed By: #### I GG, SMAB, MITOM2, L-K MICRO, ALPHA PHEN, HEMOCHROM, CERULOP, TENA #### [facility] , #### PARVEEN, TSH3 #### [facility] [address] [place] [address] Specificy [place],Urine 1.023 Normal 1.001-1.03 0 [facility] Comment on above: Order Comment: Reaso n for Exam Elevated LFTs Performed By: #### I GG, SMAB, MITOM2, L-K MICRO, ALPHA PHEN, HEMOCHROM, CERULOP, TENA #### [facility] , #### PARVEEN, TSH3 #### [facility] [address] [place] [address] Squamous Epithelial Cell,Urine None Seen Normal 0-2 [facility] Comment on above: Order Comment: Reaso n for Exam Elevated LFTs Performed By: #### I GG, SMAB, MITOM2, L-K MICRO, ALPHA PHEN, HEMOCHROM, CERULOP, TENA #### [facility] , #### PARVEEN, TSH3 #### [facility] [address] [place] [address] Urobilinogen,Urine Normal Normal Normal [facility] Comment on above: Order Comment: Reaso n for Exam Elevated LFTs Performed By: #### I GG, SMAB, MITOM2, L-K MICRO, ALPHA PHEN, HEMOCHROM, CERULOP, TENA #### [facility] , #### PARVEEN, TSH3 #### [facility] [address] [place] [address] WBC,Urine None Seen Normal 0-4 [facility] Comment on above: Order Comment: Reaso n for Exam Elevated LFTs Performed By: #### I GG, SMAB, MITOM2, L-K MICRO, ALPHA PHEN, HEMOCHROM, CERULOP, TENA #### [facility] , #### PARVEEN, TSH3 #### [facility] [address] [place] [address] Eosinophils Auto (Bld) [#/Vo l]Ordered By: Lewis Mirza on 05-19-2023 Eosinophils (Bld) [#/Vol] 0.2 10*3/uL 0.0-0.45 [facility] Eosinophils/100 WBC Auto (Bl d)Ordered By: Lewis Mirza on 05-19-2023 Eosinophils/100 WBC (Bld) 2.7 % . [facility] Erythrocyte Sedimentation Ra andra 05-19-2023 ESR (Bld) [Velocity] 14 mm/h Normal 0-14 [facility] Comment on above: Result Comment: PERF ORMED BY: [facility] [address] [place] [address] PATHOLOGIST [employer] LISA COOLEY M.D. Performed By: #### I GG, SMAB, MITOM2, L-K MICRO, ALPHA PHEN, HEMOCHROM, CERULOP, TENA #### [facility] , #### PARVEEN, TSH3 #### [facility] [address] Erythrocyte distribution wid th Auto (RBC) [Ratio]Ordered By: Lewis Mirza on 05-19-2023 Erythrocyte distribution width (RBC) [Ratio] 13.0 % 12.0-14.8 [facility] Erythrocyte sedimentation ra te by Photometric methodOrdered By: Lewis Mirza on 05-19-2023 ESR Photometric method (Bld) [Velocity] 14 mm/hr 0-14 [facility] Globulin Calc (S) [Mass/Vol] Ordered By: Lewis Mirza on 05-19-2023 Globulin (S) [Mass/Vol] 2.7 g/dL [facility] Glucose [Mass/volume] in Ser um or PlasmaOrdered By: Lewis Mirza on 05-19-2023 Glucose [Mass/Vol] 98 mg/dL 70-100 [facility] Comment on above: ADA recommended refe rence rangeRandom Glucose Reference Range is dependent on time and content of last meal. Glucose of more than 200 mg/dL in a nonstressed, ambulatory subject supports the diagnosis of Diabetes Mellitus. Hematocrit Auto (Bld) [Volum e fraction]Ordered By: Lewis Mirza on 05-19-2023 Hematocrit (Bld) [Volume fraction] 41.7 % 38.8-50.0 [facility] Hemoglobin [Mass/volume] in BloodOrdered By: Lewis Mirza on 05-19-2023 Hemoglobin (Bld) [Mass/Vol] 14.2 g/dL 13.0-17.0 [facility] Ketones Auto test strip (U) [Mass/Vol]Ordered By: Lewis Mirza on 05-19-2023 Ketones (U) [Mass/Vol] Negative Negative [facility] - UrinalysisOrder ed By: Lewis Mirza on 05-19-2023 Hyaline casts LM Ql (Urine sed) None seen [LPF] 0-8 [facility] Leukocytes [#/volume] correc sirisha for nucleated erythrocytes in Blood by Automated counOrdered By: Lewis Mirza on 05-19-2023 WBC corrected for nucl RBC Auto (Bld) [#/Vol] 6.4 10*3/uL 4.1-10.5 [facility] Lymphocytes Auto (Bld) [#/Vo l]Ordered By: Lewis Mirza on 05-19-2023 Lymphocytes (Bld) [#/Vol] 2.1 10*3/uL 1.00-4.8 [facility] Lymphocytes/100 WBC Auto (Bl d)Ordered By: Lewis Mirza on 05-19-2023 Lymphocytes/100 WBC (Bld) 32.5 % . [facility] MCH Auto (RBC) [Entitic mass ]Ordered By: Lewis Mirza on 05-19-2023 MCH (RBC) [Entitic mass] 29.3 pg 27.5-35.2 [facility] MCHC Auto (RBC) [Mass/Vol]Or dered By: Lewis Mirza on 05-19-2023 MCHC (RBC) [Mass/Vol] 34.1 g/dL 32.5-35.6 [facility] MCV Auto (RBC) [Entitic vol] Ordered By: Lewis Mirza on 05-19-2023 MCV (RBC) [Entitic vol] 86.0 fL 83.5-101 [facility] Monocytes Auto (Bld) [#/Vol] Ordered By: Lewis Mirza on 05-19-2023 Monocytes (Bld) [#/Vol] 0.7 10*3/uL 0.0-0.8 [facility] Monocytes/100 WBC Auto (Bld) Ordered By: Lewis Mirza on 05-19-2023 Monocytes/100 WBC (Bld) 10.7 % . [facility] Neutrophils Auto (Bld) [#/Vo l]Ordered By: Lewis Mirza on 05-19-2023 Neutrophils (Bld) [#/Vol] 3.4 10*3/uL 1.8-7.7 [facility] Neutrophils/100 WBC Auto (Bl d)Ordered By: Lewis Mirza on 05-19-2023 Neutrophils/100 WBC (Bld) 53.4 % . [facility] Nitrite Test strip Ql (U)Ord ered By: Lewis Mirza on 05-19-2023 Nitrite Ql (U) Negative Negative [facility] No Panel InformationOrdered By: Lewis Mirza on 05-19-2023 Estimated GFR (CKD-EPI) > 60.0 mL/Min [facility] Creatinine Clearance (Chem N/A [facility] Nucleated erythrocytes [Pres ence] in Blood by Automated countOrdered By: Lewis Mirza on 05-19-2023 Nucleated RBC Auto Ql (Bld) 0.2 /100{WBC} 0-0.5 [facility] PM-SCL Antibodieson 05-19-19 24 [facility] PM-Scl Antibody <20 Normal <20 [facility] Comment on above: Result Comment: This test was developed and its performance characteristics determined by [facility]. It has not been cleared or approved by the Food and Drug Administration. Negative: <20 Weak Positive: 20 - 39 Moderate Positive: 40 - 80 Strong Positive: >80 Performed at: [facility] [address] [place] [address] [id number] [employer]: Issa Thao MD, Phone: [phone] Performed By: #### I GG, SMAB, MITOM2, L-K MICRO, ALPHA PHEN, HEMOCHROM, CERULOP, TENA #### [facility] , #### PARVEEN, TSH3 #### [facility] [address] Platelet mean volume Auto (B ld) [Entitic vol]Ordered By: Lewis Mirza on 05-19-2023 Platelet mean volume (Bld) [Entitic vol] 9.2 fL 6.6-10.1 [facility] Platelets Auto (Bld) [#/Vol] Ordered By: Lewis Mirza on 05-19-2023 Platelets (Bld) [#/Vol] 254 10*3/uL 150-450 [facility] Potassium [Moles/volume] in Serum or PlasmaOrdered By: Lewis Mirza on 05-19-2023 Potassium [Moles/Vol] 3.8 mmol/L 3.5-5.1 [facility] Protein Auto test strip (U) [Mass/Vol]Ordered By: Lewis Mirza on 05-19-2023 Protein (U) [Mass/Vol] Negative Negative [facility] Protein [Mass/volume] in Ser um or PlasmaOrdered By: Lewis Mirza on 05-19-2023 Protein [Mass/Vol] 7.1 g/dL 6.4-8.9 [facility] RBC Auto (Bld) [#/Vol]Ordere d By: Lewis Mirza on 05-19-2023 RBC (Bld) [#/Vol] 4.85 10*6/uL 3.90-5.60 [facility] RNA Polymerase IIion 024 RNA Polymerase IIi <20 Normal <20 [facility] Comment on above: Result Comment: Nega tive: <20 Weak Positive: 20 - 39 Moderate Positive: 40 - 80 Strong Positive: >80 Performed at: [facility] [address] [place] [address] [id number] [employer]: Issa Thao MD, Phone: [phone] PERFORMED BY: [place] [address] PATHOLOGIST [employer]ING MAKER LISA COOLEY M.D. Performed By: #### I GG, SMAB, MITOM2, L-K MICRO, ALPHA PHEN, HEMOCHROM, CERULOP, TENA #### [facility] , #### PARVEEN, TSH3 #### [address] Scleroderma 70 Antibodieson 05-19-2023 Scleroderma 70 Antibodies <0.2 Normal 0.0-0.9 [facility] Comment on above: Performed By: #### I GG, SMAB, MITOM2, L-K MICRO, ALPHA PHEN, HEMOCHROM, CERULOP, TENA #### [facility] , #### PARVEEN, TSH3 #### [facility] [address] Serum or plasma albumin/glob ulin mass ratioOrdered By: Lewis Mirza on 05-19-2023 Albumin/Globulin [Mass ratio] 1.6 {ratio} [facility] Serum or plasma anion gap de terminationOrdered By: Lewis Mirza on 05-19-2023 Anion gap [Moles/Vol] 14.3 mmol/L 6.0-15.0 [facility] Sodium [Moles/volume] in Ser um or PlasmaOrdered By: Lewis Mirza on 05-19-2023 Sodium [Moles/Vol] 141 mmol/L 136-145 [facility] Specific gravity Auto test s trip (U) [Rel density]Ordered By: Lewis Mirza on 05-19-2023 Specific gravity (U) [Rel density] 1.023 1.001-1.03 0 [facility] Squamous epithelial cells de tection in urine sediment by light microscopyOrdered By: Lewis Mirza on 05-19-2023 Epithelial cells.squamous LM Ql (Urine sed) None seen [HPF] 0-2 [facility] Th/To Antibodyon 05-19-2023 Th/To Antibody Negative Normal Negative [facility] Comment on above: Result Comment: This test was developed and its performance characteristics determined by [facility]. It has not been cleared or approved by the Food and Drug Administration. Performed at: [facility] [address] [place] [address] [id number] [employer]: Issa Thao MD, Phone: [phone] Performed By: #### I GG, SMAB, MITOM2, L-K MICRO, ALPHA PHEN, HEMOCHROM, CERULOP, TENA #### [facility] , #### PARVEEN, TSH3 #### [facility] [address] [place] [address] Thyroid Stimulating Hormoneo n 05-19-2023 TSH Qn 1.01 m[IU]/L Normal 0.45-5.33 [facility] Comment on above: Result Comment: PERF ORMED BY: [place] [address] PATHOLOGIST [employer]ING MAK[employer] LISA COOLEY M.D. Performed By: #### I GG, SMAB, MITOM2, L-K MICRO, ALPHA PHEN, HEMOCHROM, CERULOP, TENA #### [facility] , #### PARVEEN, TSH3 #### [facility] [address] [place] [address] Thyrotropin [Units/volume] i n Serum or PlasmaOrdered By: Lewis Mirza on 05-19-2023 TSH Qn 1.01 m[IU]/L 0.45-5.33 [facility] U3 Rnpon 05-19-2023 U3 Cuff Maker Negative Normal Negative [facility] Comment on above: Result Comment: This test was developed and its performance characteristics determined by [facility]. It has not been cleared or approved by the Food and Drug Administration. Performed at: [facility] [address] [place] [id number] [employer]: Issa Thao MD, Phone: [phone] PERFORMED BY: [place] [address] PATHOLOGIST LINING MAKER LISA COOLEY M.D. Performed By: #### I GG, SMAB, MITOM2, L-K MICRO, ALPHA PHEN, HEMOCHROM, CERULOP, TENA #### [facility] , #### PARVEEN, TSH3 #### [address] Urea nitrogen [Mass/volume] in Serum or PlasmaOrdered By: Lewis Mirza on 05-19-2023 Urea nitrogen [Mass/Vol] 10 mg/dL 12-02 [facility] Urine bacteria detection by automated methodOrdered By: Lewis Mirza on 05-19-2023 Bacteria Auto Ql (U) None seen None Seen [facility] Urine clarity by refractomet ry automatedOrdered By: Lewis Mirza on 05-19-2023 Clarity Refractometry automated (U) Clear Clear [facility] Urine glucose measurement by automated test strip (mass/volume)Ordered By: Lewis Mirza on 05-19-2023 Glucose Auto test strip (U) [Mass/Vol] Normal mg/dL Normal [facility] Urine hemoglobin detection b y automated test stripOrdered By: Lewis Mirza on 05-19-2023 Hemoglobin Auto test strip Ql (U) Negative Negative [facility] Urine leukocyte esterase det ection by automated test stripOrdered By: Lewis Mirza on 05-19-2023 Leukocyte esterase Auto test strip Ql (U) Negative Negative [facility] Urobilinogen Auto test strip (U) [Mass/Vol]Ordered By: Lewis Mirza on 05-19-2023 Urobilinogen (U) [Mass/Vol] Normal mg/dL Normal [facility] WBC Auto (Bld) [#/Vol]Ordere d By: Lewis Mirza on 05-19-2023 WBC (Bld) [#/Vol] 6.4 10*3/uL 4.1-10.5 [facility] XR knee BI 2Von 05-19-2023 XR knee BI 2V [facility] [place] [address] XRay Report Signed Patient: Ta Duncan MR#: [id number] 0 : 2005 Acct:[id number] Age/Sex: 17 / M ADM Date: 05/19/23 Loc: ICXD Room: Type: [facility] Attending Dr: Lewis Mirza MD Copies to: Lewis Mirza MD Ordering Provider: Lewis Mirza MD Date of Service: 05/19/23 XR/XR knee BI 2V: PAIN ([id number]) XR/XR thoracic spine 3V*: PAIN THORACIC SPINE - - 3 views bilateral knee series 2 views each CLINICAL HISTORY: Chronic right knee and upper back injuries COMPARISON: None FINDINGS: Thoracic spine: Vertebral body heights appear maintained. Pedicles appear intact. No significant degenerative change. Right knee: No knee joint effusion or acute bony process. Joint spaces appear maintained. Left knee: No knee joint effusion. No acute bony process. Joint spaces appear maintained. XR/XR thoracic spine 3V* IMPRESSION: NO ACUTE BONY PROCESS OR SIGNIFICANT DEGENERATIVE CHANGE INVOLVING THE THORACIC SPINE OR KNEES. Impression dictated by: Ki Davila Jr., D.O.05/19/2023 2:25 PM Dictation Location: [place] [address] Transcribed By: [facility] 05/19/231424 Dictated By: Ki Davila Jr, DO 05/19/231423 Signed By: 05/19/231424 Normal [facility] pH Auto test strip (U)Ordere d By: Lewis Mirza on 05-19-2023 pH (U) 5.5 [pH] 5.0-9.0 [facility] Miscellaneouson 04-30-2023 Miscellaneous [id number]#1.00OTG TIFF Normal [facility] Outside Recordson 04-22-2023 Outside Records [id number]#1.00OTGTIF F [facility] TENA Antinuclear Antibodieson 04-21-2023 Antinuclear Abs, IFA Positive Critically abnormal . [facility] Comment on above: Order Comment: Reaso n for Exam Elevated LFTs Result Comment: Nega tive <1:80 Borderline 1:80 Positive >1:80 Performed By: #### I GG, SMAB, MITOM2, L-K MICRO, ALPHA PHEN, HEMOCHROM, CERULOP, TENA #### [facility] , #### PARVEEN, TSH3 #### [facility] [address] [place] [address] Homogeneous Pattern 1:160 High . [facility] Comment on above: Order Comment: Reaso n for Exam Elevated LFTs Result Comment: ICAP nomenclature: AC-1 Performed By: #### I GG, SMAB, MITOM2, L-K MICRO, ALPHA PHEN, HEMOCHROM, CERULOP, TENA #### [facility] , #### PARVEEN, TSH3 #### [facility] [address] Note 1 Normal . [facility] Comment on above: Order Comment: Bailee birch for Exam Elevated LFTs Result Comment: Nola slade Potential Disease Association Homogeneous Systemic Lupus Erythematosus, Drug Induced Systemic Lupus Erythematosus, Chronic Autoimmune hepatitis, Juvenile Idiopathic Arthritis Speckled Sjogren Syndrome, Systemic Lupus Erythematosus, Subacute Cutaneous Lupus, Lupus, Congenital Heart Block, Mixed Connective Tissue Disease, Scleroderma-diffuse, Scleroderma-Autoimmune Myositis Overlap Syndrome, Systemic Lupus Pcigvquddvfce-Cbazkxswcaw-Bgohogxafg Myositis Overlap Syndrome, Systemic Autoimmune Rheumatic Disease, Undifferentiated Connective Tissue Disease Nucleolar Systemic Sclerosis, Scleroderma-Autoimmune Myositis Overlap Syndrome, Sjogren Syndrome, Raynaud phenomenon, Pulmonary Arterial Hypertension, Systemic Autoimmune Rheumatic Disease, Cancer Centromere Scleroderma-CREST, Limited Cutaneous SSc, Raynaud's Phenomenon, Primary Biliary Cholangitis Nuclear Dot Primary Biliary Cholangitis Nuclear Primary Biliary Cholangitis, Autoimmune Membrane Hepatitis/Liver disease, Systemic Autoimmune Rheumatic Disease, Autoimmune Cytopenias, Linear Scleroderma, Antiphospholipid Syndrome Performed at: - [facility] [address] [id number] Drafter Electrical: Zechariah Paula PhD, Phone: [phone] Performed By: #### I GG, SMAB, MITOM2, L-K MICRO, ALPHA PHEN, HEMOCHROM, CERULOP, TENA #### [facility] , #### PARVEEN, TSH3 #### [facility] [address] Actin smooth muscle IgG Ab [ Units/volume] in SerumOrdered By: Wilver Felton on 04-21-2023 Actin smooth muscle IgG Qn (S) 13 Units 0-19 [facility] Comment on above: Negative 0 - 19 Weak positive 20 - 30 Moderate to strong positive >30 Actin Antibodies are found in 52-85% of patients with autoimmune hepatitis or chronic active hepatitis and in 22% of patients with primary biliary cirrhosis. Nmznu-6-Naenjyhcoxb Phenotyp meri 04-21-2023 Alpha 1 Anti-Trypsin 139 mg/dL Normal 95-164 [facility] Comment on above: Order Comment: Reaso n for Exam Elevated LFTs Performed By: #### I GG, SMAB, MITOM2, L-K MICRO, ALPHA PHEN, HEMOCHROM, CERULOP, TENA #### [facility] , #### PARVEEN, TSH3 #### [facility] [address] Phenotype (P1) MM Normal . [facility] Comment on above: Order Comment: Reaso n for Exam Elevated LFTs Result Comment: Phen otype Population A-1-AT Concentration* Incidence % % of MM (Typical Range) MM 86.5% 100% (96 - 189) MS 8.0% 86% (83 - 161) MZ 3.9% 61% (60 - 111) FM 0.4% 100% (93 - 191) SZ 0.3% 41% (42 - 75) SS 0.1% 64% (62 - 119) ZZ 0.05% 19% (16 - 38) FS 0.05% 70% (70 - 128) FZ Unknown 46% (44 - 88) FF Unknown Unknown *A-1-AT concentration in the homozygous MM phenotype is taken as the reference normal. Percent deficiency in each phenotype is reported relative to this reference. Ranges used to confirm phenotype. Performed at: - [facility] [id number] Drafter Electrical: Zechariah Paula PhD, Phone: [phone] Performed at: - [facility] [id number] Drafter Electrical: Aston Omalley MD, Phone: [phone] Performed By: #### I GG, SMAB, MITOM2, L-K MICRO, ALPHA PHEN, HEMOCHROM, CERULOP, TENA #### [facility] , #### PARVEEN, TSH3 #### [facility] [address] Blood or tissue HFE gene mut ations identification by molecular genetics methodOrdered By: Wilver Felton on 04-21-2023 HFE gene targeted mutation analysis Molgen Nom (Bld/Tiss) See comment . [facility] Comment on above: Result:c.845G>A (p.C bz889Nyt) - Not Detectedc.187C>G (p.Uhs56Yoi) - Not Detectedc.193A>T (p.Ogn75Por) - Not DetectedNot associated with increased risk to develop clinicalsymptoms of Hereditary Hemochromatosis. In symptomaticindividuals, other causes of iron overload should beevaluated. See Additional Information and Comments.Additional Clinical Information:Hereditary hemochromatosis (HFE related) is an autosomalrecessive iron storage disorder. Patients may have agenetic diagnosis of hereditary hemochromatosis and nevershow clinical symptoms. Clinical symptoms typically appearbetween 40 to 60 years in males and after menopause infemales. Signs and symptoms may include organ damage,primarily in the liver, risk for hepatocellularcarcinoma, diabetes, and heart disease due to ironaccumulation. Life expectancy may be decreased inindividuals who develop cirrhosis. Treatment forclinically symptomatic individuals may includetherapeutic phlebotomy. Liver transplant may be used totreat end stage liver failure. For preventive care,monitoring for iron overload is recommended for patientswho are homozygous for c.845G>A (p.Pwu790Ztk) and have yetto experience clinical symptoms.Comments:The most common HFE variants associated with hereditaryhemochromatosis are c.845G>A (p.Nhc558Hhi), c.187C>G(p.Qnl95Uin), c.193A>T (p.Fph03Ugy). While patientshomozygous for c.845G>A (p.Wdf045Qkf) are the most likelyto present clinical symptoms, less than 10% developclinically significant iron overload with tissue and organdamage.Genetic counseling is recommended to discuss the potentialclinical implications of positive results, as well asrecommendations for testing family members.Genetic Coordinators are available for health careproviders to discuss results at [phone] Details:Three variants analyzed:c.845G>A (p.Zzp318Thu), commonly referred to as C282Yc.187C>G (p.Dzm54Njw), commonly referred to as H63Dc.193A>T (p.Wlc26Hso), commonly referred to as L68CEnjogmu/Limitations:DNA Analysis of the HFE gene (NM_000410.4) was performedby PCR amplification followed by restriction enzymedigestion analyses. Results must be combined with clinicalinformation for the most accurate interpretation. Molecular-based testing is highly accurate, but as in any laboratorytest, diagnostic errors may occur. False positive or falsenegative results may occur for reasons that include geneticvariants, blood transfusions, bone marrow transplantation,somatic or tissue-specific mosaicism, mislabeled samples,or erroneous representation of family relationships.This test was developed and its performancecharacteristics determined by [facility]. It has not beencleared or approved by the Food and Drug Administration.References:Paul BR, Joseph PC, Mohini KV, Christiano LW, Erick ;[place] Association for the Study of Liver Diseases.Diagnosis and management of hemochromatosis: 2011 practiceguideline by the [place] Association for the Study ofLiver Diseases. Hepatology. 2010;54(1):328-43. doi:10.1002/hep.60137. PMID: 53483349; PMCID: LFO3517781.Surekha G, Shorty P, Hailey HENDERSON, Tor H, Corrine O,Simón S, Guerrero Castellanos, Alireza M, Holly S. [facility] best practiceguidelines for the molecular genetic diagnosis ofhereditary hemochromatosis (HH). Eur J Hum Meliza. 2016Apr;24(4):479-95. doi: 10.1038/ejhg.2015.128. Epub 2014. PMID: 23912099; PMCID: [id number]. Ceruloplasminon 04-21-2023 Ceruloplasmin 23.7 mg/dL Normal 16.0-31.0 [facility] Comment on above: Order Comment: Reaso n for Exam Elevated LFTs Result Comment: Perf ormed at: CB - [facility] [address] [id number] Drafter Electrical: Zcehariah Paula PhD, Phone: [phone] PERFORMED BY: [place] [address] PATHOLOGIST LINING MAKER LISA COOLEY M.D. Performed By: #### I GG, SMAB, MITOM2, L-K MICRO, ALPHA PHEN, HEMOCHROM, CERULOP, TENA #### [facility] , #### PARVEEN, TSH3 #### [address] Ferritinon 04-21-2023 Ferritin [Mass/Vol] 59.0 ng/mL Normal 23.9-336.2 [facility] Comment on above: Order Comment: Reaso n for Exam Elevated LFTs Reason for Exam Fatigue Performed By: #### I GG, SMAB, MITOM2, L-K MICRO, ALPHA PHEN, HEMOCHROM, CERULOP, TENA #### [facility] , #### PARVEEN, TSH3 #### [facility] [address] [place] [id number] [facility] Ferritin [Mass/volume] in Se rum or PlasmaOrdered By: Wilver Felton on 04-21-2023 Ferritin [Mass/Vol] 59.0 ng/mL 23.9-336.2 [facility] Hereditary Hemochromatosis,D NAon 04-21-2023 Hereditary Hemochromatosis Normal . [facility] Comment on above: Order Comment: Reaso n for Exam Elevated LFTs Result Comment: Resu lt: c.845G>A (p.Blr904Vin) - Not Detected c.187C>G (p.Xnw68Ihp) - Not Detected c.193A>T (p.Hit39Yip) - Not Detected Not associated with increased risk to develop clinical symptoms of Hereditary Hemochromatosis. In symptomatic individuals, other causes of iron overload should be evaluated. See Additional Information and Comments. Additional Clinical Information: Hereditary hemochromatosis (HFE related) is an autosomal recessive iron storage disorder. Patients may have a genetic diagnosis of hereditary hemochromatosis and never show clinical symptoms. Clinical symptoms typically appear between 40 to 60 years in males and after menopause in females. Signs and symptoms may include organ damage, primarily in the liver, risk for hepatocellular carcinoma, diabetes, and heart disease due to iron accumulation. Life expectancy may be decreased in individuals who develop cirrhosis. Treatment for clinically symptomatic individuals may include therapeutic phlebotomy. Liver transplant may be used to treat end stage liver failure. For preventive care, monitoring for iron overload is recommended for patients who are homozygous for c.845G>A (p.Fmv444Rzd) and have yet to experience clinical symptoms. Comments: The most common HFE variants associated with hereditary hemochromatosis are c.845G>A (p.Hwm905Gpt), c.187C>G (p.Sbl55Zjn), c.193A>T (p.Mep72Bis). While patients homozygous for c.845G>A (p.Xqi135Xbf) are the most likely to present clinical symptoms, less than 10% develop clinically significant iron overload with tissue and organ damage. Genetic counseling is recommended to discuss the potential clinical implications of positive results, as well as recommendations for testing family members. Genetic Coordinators are available for health care providers to discuss results at [phone] Test Details: Three variants analyzed: c.845G>A (p.Yps421Ika), commonly referred to as C282Y c.187C>G (p.Bdr74Qbt), commonly referred to as H63D c.193A>T (p.Ldi05Fta), commonly referred to as S65C Methods/Limitations: DNA Analysis of the HFE gene (NM_000410.4) was performed by PCR amplification followed by restriction enzyme digestion analyses. Results must be combined with clinical information for the most accurate interpretation. Molecular- based testing is highly accurate, but as in any laboratory test, diagnostic errors may occur. False positive or false negative results may occur for reasons that include genetic variants, blood transfusions, bone marrow transplantation, somatic or tissue-specific mosaicism, mislabeled samples, or erroneous representation of family relationships. This test was developed and its performance characteristics determined by [facility]. It has not been cleared or approved by the Food and Drug Administration. References: Paul BR, Joseph PC, Mohini KV, Christiano LW, Erick ; [place] Association for the Study of Liver Diseases. Diagnosis and management of hemochromatosis: 2011 practice guideline by the [place] Association for the Study of Liver Diseases. Hepatology. 2011 Nov;54(1):328-43. doi: 10.1002/hep.67392. PMID: 87364277; PMCID: [id number]. Surekha G, Shorty P, Hailey HENDERSON, Tor H, Corrine O, Simón S, Guerrero I, Alireza M, Holly S. [facility] best practice guidelines for the molecular genetic diagnosis of hereditary hemochromatosis (HH). Eur J Hum Meliza. 2016 Aug;24(4):479-95. doi: 10.1038/ejhg.2015.128. Epub 2014Nov 15. PMID: 41758196; PMCID: [id number]. Performed By: #### I GG, SMAB, MITOM2, L-K MICRO, ALPHA PHEN, HEMOCHROM, CERULOP, TENA #### [facility] , #### PARVEEN, TSH3 #### [address] Reviewed by: Normal . [facility] Comment on above: Order Comment: Reaso n for Exam Elevated LFTs Result Comment: Tech nical Component performed at [facility] Professional Component performed by: Daniella Birch, Ph.D., FACMG Director, Molecular Genetics [address] [place] [address] [facility] [address] Performed at: - [facility] [address] [place], [place] [id number] Drafter Electrical: Dinesh Davis [facility], Phone: [phone] PERFORMED BY: [place] [address] PATHOLOGIST LINING MAKER LISA COOLEY M.D. Performed By: #### I GG, SMAB, MITOM2, L-K MICRO, ALPHA PHEN, HEMOCHROM, CERULOP, TENA #### [facility] , #### PARVEEN, TSH3 #### [address] IgG [Mass/volume] in Serum o r PlasmaOrdered By: Wilver Felton on 04-21-2023 IgG [Mass/Vol] 1272 mg/dL [address] [place] [address] Comment on above: Performed at: - [facility] [place] [id number] Director: Zechariah Paula PhD, Phone: [phone] Immunoglobulin Asaf 3 Immunoglobulin G 1272 mg/dL Normal [address] [place] [address] Comment on above: Order Comment: Reaso n for Exam Elevated LFTs Result Comment: Perf ormed at: - [facility] [place] [address] [place], [place] [id number] Dra[employer] Electrical: Zechariah Paula PhD, Phone: [phone] Performed By: #### I GG, SMAB, MITOM2, L-K MICRO, ALPHA PHEN, HEMOCHROM, CERULOP, TENA #### [facility] , #### PARVEEN, TSH3 #### [facility] [address] [place] [address] Liver-Kidney Microsomal Abon 04-21-2023 Liver-Kidney Microsomal Ab 1.5 Normal 0.0-20.0 [facility] Comment on above: Order Comment: Reaso n for Exam Elevated LFTs Result Comment: Nega tive 0.0 - 20.0 Equivocal 20.1 - 24.9 Positive >24.9 LKM type 1 antibodies are detected in patients with autoimmune hepatitis type 2 and in up to 8% of patients with chronic HCV infection. Performed at: [address] [id number] Drafter Electrical: Zechariah Paula PhD, Phone: [phone] Performed By: #### I GG, SMAB, MITOM2, L-K MICRO, ALPHA PHEN, HEMOCHROM, CERULOP, TENA #### [facility] , #### PARVEEN, TSH3 #### [facility] [address] [place] [address] Mitochondrial (M2) Antibodyo n 04-21-2023 Mitochondrial (M2) Antibody <20.0 Normal 0.0-20.0 [facility] Comment on above: Order Comment: Reaso n for Exam Elevated LFTs Result Comment: Nega tive 0.0 - 20.0 Equivocal 20.1 - 24.9 Positive >24.9 Mitochondrial (M2) Antibodies are found in 90-96% of patients with primary biliary cirrhosis. Performed By: #### I GG, SMAB, MITOM2, L-K MICRO, ALPHA PHEN, HEMOCHROM, CERULOP, TENA #### [facility] , #### PARVEEN, TSH3 #### [facility] [address] [place] [address] No Panel InformationOrdered By: Wilver Felton on 04-21-2023 Anti-Nuclear Antibody Comment 2 See comment . [facility] Comment on above: Pattern Potential Di sease Association Homogeneous Systemic Lupus Erythematosus, Drug Induced Systemic Lupus Erythematosus, Chronic Autoimmune hepatitis, Juvenile Idiopathic Arthritis Speckled Sjogren Syndrome, Systemic Lupus Erythematosus, Subacute Cutaneous Lupus, Lupus, Congenital Heart Block, Mixed Connective Tissue Disease, Scleroderma-diffuse, Scleroderma-Autoimmune Myositis Overlap Syndrome, Systemic Lupus Ihovepeyndkbn-Wtwsgmiqkup-Vlkfqhxalh Myositis Overlap Syndrome, Systemic Autoimmune Rheumatic Disease, Undifferentiated Connective Tissue Disease Nucleolar Systemic Sclerosis, Scleroderma-Autoimmune Myositis Overlap Syndrome, Sjogren Syndrome, Raynaud phenomenon, Pulmonary Arterial Hypertension, Systemic Autoimmune Rheumatic Disease, Cancer Centromere Scleroderma-CREST, Limited Cutaneous SSc, Raynaud's Phenomenon, Primary Biliary Cholangitis Nuclear Dot Primary Biliary Cholangitis Nuclear Primary Biliary Cholangitis, AutoimmuneMembrane Hepatitis/Liver disease, Systemic Autoimmune Rheumatic Disease, Autoimmune Cytopenias, Linear Scleroderma, Antiphospholipid Syndrome Performed at: - [facility] [id number] [place], [place] [id number] Director: Zechariah Paula PhD, Phone: [phone] Hemochromatosis Note See comment . [facility] Comment on above: Technical Component performed at [facility] RTPProfessional Component performed by:Daniella Birch, Ph.D., FACMGDirector, Molecular Pewqxfzt32[address] [facility] [place] [address]Btcngfuht at: - [facility] [id number] [facility], [facility], [place] [id number] Director: Dinesh Davis [facility], Phone: [phone] Serum hogzp-2-sckfwwyhlsm me asurementOrdered By: Imad Asaariana on 04-21-2023 Alpha 1 antitrypsin [Mass/Vol] 139 mg/dL 95-164 [facility] Serum homogeneous pattern an tinuclear antibody (TENA) titerOrdered By: Imad Asaad on 04-21-2023 Homogenous nuclear Ab pattern (S) [Titer] 1:160 . [facility] Comment on above: ICAP nomenclature: A C-1 Serum mitochondria M2 IgG an tibody assay (units/volume)Ordered By: Imad Asaad on 04-21-2023 Mitochondria M2 IgG Qn (S) <20.0 Units 0.0-20.0 [facility] Comment on above: Negative 0.0 - 20.0 Equivocal 20.1 - 24.9 Positive >24.9Mitochondrial (M2) Antibodies are found in 90-96% ofpatients with primary biliary cirrhosis. Serum nuclear antibody titer Ordered By: Imad Asaad on 04-21-2023 Nuclear Ab (S) [Titer] Positive . [facility] Comment on above: Negative <1:80 Borortizine 1:80 Positive >1:80 Serum or plasma alpha 1 anti trypsin phenotyping identification by immunofixationOrdered By: Imariana Jacksonad on 04-21-2023 Alpha 1 antitrypsin phenotyping Immunofixation Nom Mm . [facility] Comment on above: Phenotype Population A-1-AT Concentration* Incidence % % of MM (Typical Range) MM 86.5% 100% (96 - 189) MS 8.0% 86% (83 - 161) MZ 3.9% 61% (60 - 111) FM 0.4% 100% (93 - 191) SZ 0.3% 41% (42 - 75) SS 0.1% 64% (62 - 119) ZZ 0.05% 19% (16 - 38) FS 0.05% 70% (70 - 128) FZ Unknown 46% (44 - 88) FF Unknown Unknown*A-1-AT concentration in the homozygous MM phenotype is taken as the reference normal. Percent deficiency in each phenotype is reported relative to this reference. Ranges used to confirm phenotype.Performed at: [address] [id number] Director: Zechariah Paula PhD, Phone: [phone] at: [address] [id number] Director: Aston Omalley MD, Phone: [phone] Serum or plasma ceruloplasmi n measurement (mass/volume)Ordered By: Wilver Felton on 04-21-2023 Ceruloplasmin [Mass/Vol] 23.7 mg/dL 16.0-31.0 [facility] Comment on above: Performed at: [address] [id number] Director: Zechariah Paula PhD, Phone: [phone] Serum or plasma lipoprotein a measurement (moles/volume)Ordered By: Wilver Felton on 04-21-2023 Lipoprotein a [Moles/Vol] 1.5 Units 0.0-20.0 [facility] Comment on above: Negative 0.0 - 20.0 Equivocal 20.1 - 24.9 Positive >24.9LKM type 1 antibodies are detected in patients withautoimmune hepatitis type 2 and in up to 8% ofpatients with chronic HCV infection.Performed at: [address] [id number] Director: Zechariah Paula PhD, Phone: [phone] Smooth Muscle Antibodyon Smooth Muscle Antibody 13 Normal 0-19 [facility] Comment on above: Order Comment: Reaso n for Exam Elevated LFTs Result Comment: Nega tive 0 - 19 Weak positive 20 - 30 Moderate to strong positive >30 Actin Antibodies are found in 52-85% of patients with autoimmune hepatitis or chronic active hepatitis and in 22% of patients with primary biliary cirrhosis. Performed By: #### I GG, SMAB, MITOM2, L-K MICRO, ALPHA PHEN, HEMOCHROM, CERULOP, TENA #### [facility] , #### PARVEEN, TSH3 #### [address] Thyroid Stimulating Hormoneo n 04-21-2023 TSH Qn 1.24 m[IU]/L Normal 0.45-5.33 [facility] Comment on above: Order Comment: Reaso n for Exam Elevated LFTs Reason for Exam Fatigue Result Comment: PERF ORMED BY: [place] [address] PATHOLOGIST LINING MAKER LISA COOLEY M.D. Performed By: #### I GG, SMAB, MITOM2, L-K MICRO, ALPHA PHEN, HEMOCHROM, CERULOP, TENA #### [facility] , #### PARVEEN, TSH3 #### [address] Thyrotropin [Units/volume] i n Serum or PlasmaOrdered By: Wilver Felton on 04-21-2023 TSH Qn 1.24 m[IU]/L 0.45-5.33 [facility] Miscellaneouson 04-07-2023 Miscellaneous [id number] IFF [facility] Miscellaneous [id number]#[id number] IFF [facility] Outside Recordson 03-24-2023 Outside Records [id number]#[id number] FF Normal [facility] Alanine aminotransferase [En zymatic activity/volume] in Serum or PlasmaOrdered By: Wilver Asa on 03-19-2023 ALT [Catalytic activity/Vol] 48 U/L 7-52 [facility] Albumin [Mass/volume] in Ser um or Plasma by Bromocresol green (BCG) dye binding methoOrdered By: Imad Asaad on 03-19-2023 Albumin BCG dye [Mass/Vol] 4.3 g/dL 3.5-5.7 [facility] Alkaline phosphatase [Enzyma tic activity/volume] in Serum or PlasmaOrdered By: ad [facility]-19-2023 ALP [Catalytic activity/Vol] 60 U/L 34-104 [facility] Aspartate aminotransferase [ Enzymatic activity/volume] in Serum or PlasmaOrdered By: ad [facility] on 03-19-2023 AST [Catalytic activity/Vol] 27 U/L 13-39 [facility] Bilirubin.direct [Mass/volum e] in Serum or PlasmaOrdered By: [facility] on 03-19-2023 Bilirubin.direct [Mass/Vol] 0.10 mg/dL 0.03-0.18 [facility] Bilirubin.total [Mass/volume ] in Serum or PlasmaOrdered By: [facility] on 03-19-2023 Bilirubin [Mass/Vol] 0.8 mg/dL 0.3-1.0 [facility] Globulin Calc (S) [Mass/Vol] Ordered By: [facility] on 03-19-2023 Globulin (S) [Mass/Vol] 2.8 g/dL [facility] Hep B Real-Time PCR, Quanton 03-19-2023 HBV As IU/mL Not detected Normal . [facility] Comment on above: Order Comment: Reaso n for Exam Elevated LFTs Reason for Exam Fatigue Performed By: #### I GG, SMAB, MITOM2, L-K MICRO, ALPHA PHEN, HEMOCHROM, CERULOP, TENA #### [facility] , #### PARVEEN, TSH3 #### [facility] [address] [place] [address] Log10 HBV (As IU/mL) Normal . [facility] Comment on above: Order Comment: Reaso n for Exam Elevated LFTs Reason for Exam Fatigue Result Comment: Resu lt Units: log10 IU/mL Unable to calculate result since non-numeric result obtained for component test. Performed By: #### I GG, SMAB, MITOM2, L-K MICRO, ALPHA PHEN, HEMOCHROM, CERULOP, TENA #### [facility] , #### PARVEEN, TSH3 #### [address] Test Information: Normal . [facility] Comment on above: Order Comment: Reaso n for Exam Elevated LFTs Reason for Exam Fatigue Result Comment: The reportable range for this assay is 10 IU/mL to 1 billion IU/mL. Performed at: [address] [id number] Drafter Electrical: Aston Omalley MD, Phone: [phone] PERFORMED BY: [place] [address] PATHOLOGIST LINING MAKER LISA COOLEY M.D. Performed By: #### I GG, SMAB, MITOM2, L-K MICRO, ALPHA PHEN, HEMOCHROM, CERULOP, TENA #### [facility] , #### PARVEEN, TSH3 #### [address] Hep C Ab wRfx to Qnt PCRon 1 05-19-2022 Hepatitis C Virus Antibody Non-Reactive Normal Non Reactive [facility] Comment on above: Order Comment: Reaso n for Exam Elevated LFTs Reason for Exam Fatigue Performed By: #### I GG, SMAB, MITOM2, L-K MICRO, ALPHA PHEN, HEMOCHROM, CERULOP, TENA #### [facility] , #### PARVEEN, TSH3 #### [facility] [address] [place] [address] Interpretation Hepatitis C Normal . [facility] Comment on above: Order Comment: Reaso n for Exam Elevated LFTs Reason for Exam Fatigue Result Comment: Not infected with HCV unless early or acute infection is suspected (which may be delayed in an immunocompromised individual), or other evidence exists to indicate HCV infection. Performed By: #### I GG, SMAB, MITOM2, L-K MICRO, ALPHA PHEN, HEMOCHROM, CERULOP, TENA #### [facility] , #### PARVEEN, TSH3 #### [facility] [address] [place] [address] Hepatic Panelon 03-19-2023 Albumin [Mass/Vol] 4.3 g/dL Normal 3.5-5.7 [facility] Comment on above: Order Comment: Reaso n for Exam Elevated LFTs Reason for Exam Fatigue Performed By: #### I GG, SMAB, MITOM2, L-K MICRO, ALPHA PHEN, HEMOCHROM, CERULOP, TENA #### [facility] , #### PARVEEN, TSH3 #### [address] Albumin/Globulin [Mass ratio] 1.5 {ratio} Normal [facility] Comment on above: Order Comment: Reaso n for Exam Elevated LFTs Reason for Exam Fatigue Performed By: #### I GG, SMAB, MITOM2, L-K MICRO, ALPHA PHEN, HEMOCHROM, CERULOP, TENA #### [facility] , #### PARVEEN, TSH3 #### [facility] [address] [place] [address] ALP [Catalytic activity/Vol] 60 U/L Normal 34-104 [facility] Comment on above: Order Comment: Reaso n for Exam Elevated LFTs Reason for Exam Fatigue Result Comment: PERF ORMED BY: [place] [address] PATHOLOGIST LINING MAKER LISA COOLEY M.D. Performed By: #### I GG, SMAB, MITOM2, L-K MICRO, ALPHA PHEN, HEMOCHROM, CERULOP, TENA #### [facility] , #### PARVEEN, TSH3 #### [address] ALT [Catalytic activity/Vol] 48 U/L Normal 7-52 [facility] Comment on above: Order Comment: Reaso n for Exam Elevated LFTs Reason for Exam Fatigue Performed By: #### I GG, SMAB, MITOM2, L-K MICRO, ALPHA PHEN, HEMOCHROM, CERULOP, TENA #### [facility] , #### PARVEEN, TSH3 #### [address] AST [Catalytic activity/Vol] 27 U/L Normal 13-39 [facility] Comment on above: Order Comment: Reaso n for Exam Elevated LFTs Reason for Exam Fatigue Performed By: #### I GG, SMAB, MITOM2, L-K MICRO, ALPHA PHEN, HEMOCHROM, CERULOP, TENA #### [facility] , #### PARVEEN, TSH3 #### [address] Bilirubin [Mass/Vol] 0.8 mg/dL Normal 0.3-1.0 [facility] Comment on above: Order Comment: Reaso n for Exam Elevated LFTs Reason for Exam Fatigue Performed By: #### I GG, SMAB, MITOM2, L-K MICRO, ALPHA PHEN, HEMOCHROM, CERULOP, TENA #### [facility] , #### PARVEEN, TSH3 #### [address] Bilirubin,Indirect 0.7 mg/dL Normal [facility] Comment on above: Order Comment: Reaso n for Exam Elevated LFTs Reason for Exam Fatigue Performed By: #### I GG, SMAB, MITOM2, L-K MICRO, ALPHA PHEN, HEMOCHROM, CERULOP, TENA #### [facility] , #### PARVEEN, TSH3 #### [facility] [address] [place] [address] [place] Bilirubin.indirect [Mass/Vol] 0.10 mg/dL Normal 0.03-0.18 [facility] Comment on above: Order Comment: Reaso n for Exam Elevated LFTs Reason for Exam Fatigue Performed By: #### I GG, SMAB, MITOM2, L-K MICRO, ALPHA PHEN, HEMOCHROM, CERULOP, TENA #### [facility] , #### PARVEEN, TSH3 #### [facility] [address] Globulin (S) [Mass/Vol] 2.8 g/dL Normal [facility] Comment on above: Order Comment: Reaso n for Exam Elevated LFTs Reason for Exam Fatigue Performed By: #### I GG, SMAB, MITOM2, L-K MICRO, ALPHA PHEN, HEMOCHROM, CERULOP, TENA #### [facility] , #### PARVEEN, TSH3 #### [address] Protein [Mass/Vol] 7.1 g/dL Normal 6.4-8.9 [facility] Comment on above: Order Comment: Reaso n for Exam Elevated LFTs Reason for Exam Fatigue Performed By: #### I GG, SMAB, MITOM2, L-K MICRO, ALPHA PHEN, HEMOCHROM, CERULOP, TENA #### [facility] , #### PARVEEN, TSH3 #### [address] Hepatitis A Antibody IgMon 1 05-19-2022 Hepatitis A Antibody IgM Negative Normal Negative [facility] Comment on above: Order Comment: Reaso n for Exam Elevated LFTs Reason for Exam Fatigue Performed By: #### I GG, SMAB, MITOM2, L-K MICRO, ALPHA PHEN, HEMOCHROM, CERULOP, TENA #### [facility] , #### PARVEEN, TSH3 #### [facility] [address] [place] [address] Hepatitis B Core Antibodyon 03-19-2023 Hepatitis B Core Antibody Negative Normal Negative [facility] Comment on above: Order Comment: Reaso n for Exam Elevated LFTs Reason for Exam Fatigue Performed By: #### I GG, SMAB, MITOM2, L-K MICRO, ALPHA PHEN, HEMOCHROM, CERULOP, TENA #### [facility] , #### PARVEEN, TSH3 #### [facility] [address] [place] [address] Hepatitis B Core Antibody Ig Mon 03-19-2023 Hepatitis B Core Antibody IgM Negative Normal Negative [facility] Comment on above: Order Comment: Reaso n for Exam Elevated LFTs Reason for Exam Fatigue Result Comment: Perf ormed at: - [facility] [address] [id number] Drafter Electrical: Zechariah Paula PhD, Phone: [phone] Performed By: #### I GG, SMAB, MITOM2, L-K MICRO, ALPHA PHEN, HEMOCHROM, CERULOP, TENA #### [facility] , #### PARVEEN, TSH3 #### [facility] [address] [place] [address] Hepatitis B Surface Ab, Blair ton 03-19-2023 Hepatitis B Surface Ab, Quant >1000.0 Normal Immunity>9 .9 [facility] Comment on above: Order Comment: Reaso n for Exam Elevated LFTs Reason for Exam Fatigue Result Comment: Stat us of Immunity Anti-HBs Level Inconsistent with Immunity 0.0 - 9.9 Consistent with Immunity >9.9 PERFORMED BY: [place] [address] PATHOLOGIST LINING MAKER LISA COOLEY M.D. Performed By: #### I GG, SMAB, MITOM2, L-K MICRO, ALPHA PHEN, HEMOCHROM, CERULOP, TENA #### [facility] , #### PARVEEN, TSH3 #### [facility] [address] [place] [address] Hepatitis B Surface Antibody on 03-19-2023 Hepatitis B Surface Antibody Reactive Normal . [facility] Comment on above: Order Comment: Reaso n for Exam Elevated LFTs Reason for Exam Fatigue Result Comment: Non Reactive: Inconsistent with immunity, less than 10 mIU/mL Reactive: Consistent with immunity, greater than 9.9 mIU/mL Performed By: #### I GG, SMAB, MITOM2, L-K MICRO, ALPHA PHEN, HEMOCHROM, CERULOP, TENA #### [facility] , #### PARVEEN, TSH3 #### [facility] [address] [place] [address] [place] Hepatitis B Surface Antigeno n 03-19-2023 HBsAg Screen Negative Normal Negative [facility] Comment on above: Order Comment: Reaso n for Exam Elevated LFTs Reason for Exam Fatigue Performed By: #### I GG, SMAB, MITOM2, L-K MICRO, ALPHA PHEN, HEMOCHROM, CERULOP, TENA #### [facility] , #### PARVEEN, TSH3 #### [facility] [address] Hepatitis B virus surface Ab [Units/volume] in SerumOrdered By: Wilver Felton on 03-19-2023 HBV surface Ab Qn (S) >1000.0 mIU/mL Immu nity>9 .9 [facility] Comment on above: Status of Immunity A nti-HBs Level Inconsistent with Immunity 0.0 - 9.9Consistent with Immunity >9.9 Hepatitis B virus surface Ag [Presence] in Serum or Plasma by ImmunoassayOrdered By: Wilver Felton on 03-19-2023 HBV surface Ag IA Ql Negative Negative [facility] Hepatitis C virus IgG Ab [Pr esence] in Serum or Plasma by ImmunoassayOrdered By: Wilver Felton on 03-19-2023 HCV IgG IA Ql Non-Reactive Non Reactive [facility] No Panel InformationOrdered By: Wilver Felton on 03-19-2023 Hepatitis A IgM Antibody Negative Negative [facility] Hepatitis B Core IgM Antibody Negative Negative [facility] Comment on above: Performed at: [address] [id number] Director: Zechariah Paula PhD, Phone: [phone] Hepatitis B Core Total Antibody Negative Negative [facility] Hepatitis B DNA Test Information See comment . [facility] Comment on above: The reportable range for this assay is 10 IU/mL to 1billion IU/mL.Performed at: [address] [id number] Director: Aston Omalley MD, Phone: [phone] Hepatitis C Interpretation See comment . [facility] Comment on above: Not infected with HC V unless early or acute infection issuspected (which may be delayed in an immunocompromisedindividual), or other evidence exists to indicate HCVinfection. Protein [Mass/volume] in Ser um or PlasmaOrdered By: Wilver Felton on 03-19-2023 Protein [Mass/Vol] 7.1 g/dL 6.4-8.9 [facility] Serum hepatitis B virus surf daniel antibody detectionOrdered By: Wilver Felton on 03-19-2023 HBV surface Ab Ql (S) Reactive . [facility] Comment on above: Non Reactive: Incons istent with immunity, less than 10 mIU/mL Reactive: Consistent with immunity, greater than 9.9 mIU/mL Serum or plasma albumin/glob ulin mass ratioOrdered By: ariana Felton on 03-19-2023 Albumin/Globulin [Mass ratio] 1.5 {ratio} [facility] Serum or plasma hepatitis B virus DNA measurement (units/volume) (viral load) by probOrdered By: Wilver Felton on 03-19-2023 HBV DNA GITA+probe Qn Not detected . [facility] Serum or plasma hepatitis B virus DNA viral load by probe and target amplification meOrdered By: ariana Felton on 03-19-2023 HBV DNA GITA+probe [Log units/Vol] See comment . [facility] Comment on above: Result Units: log10 IU/mLUnable to calculate result since non-numeric resultobtained for component test. Serum or plasma non-glucuron idated bilirubin measurement (mass/volume)Ordered By: Wilver Felton on 03-19-2023 Bilirubin.indirect [Mass/Vol] 0.7 mg/dL [facility] Outside Recordson 03-03-2023 Outside Records [id number]#[id number] [facility] Outside Recordson 02-19-2023 Outside Records [id number]#1.00OTG TIFF [facility] Coding Summaryon 02-16-2023 Coding Summary HTMLBase 64 BzerbsswZJb0cNw+PGhlYWQ+P M3CYTKlV51jqWXjyE1uK6IFCW lOSywgQVBQTElOSyIgbmFtZT1 kaXNjZXJu IC8+DK2wJHJgDocmyXBkn5M2g LS7J07gcn8fNLpsrYO5DEVwUl Cnnutry6puyXf6EWzyLazqTsN t NOPolZ53MVE4fS76Qc74mNIkg WFsr5niqUz2AyIdAZFhLOV6wA lkQGcek8LfXXEwP53vtOVng4L 6 QDJyyWnbyOSdYfVbeZD8yO9eS Zrbeurbv5sdqhrzMoz7ht28pQ Cnk6P5mRI9D3GqpcU9KHDeeNT g GwcxkHJIeW0anuxhw1ysjfrcV fUoWCSdGTd5AWv8QQMtiKwcPw JaPZ97CIG8BFGouzUpI7CmNUG s tFxqWfO4c1T2Dn7OG1UKAsudI 1VNTUFSWTwvdGQ+XB40xa46G3 QkEttzTqh5OKIyBFA8nTM1nE6 n EAIkYOtkb6Q2wAT9Y2VcsbWgs x4gw2wxSWEyEMgvQ09dmDEnc9 J7NPKozMT9ATMxyVxmRsUsjX7 3 Oyc+ICItyBwon4CtHbpex2ixy 9matHr5OgqdACJlywPbdKhgAX K2d8NzVw3rZKXrcPJ0iTZ5zD3 i WeBiAtV9HDuoV461VdDqjGWxB jnbX23mZ2LazQN+TKOdMnu4DU EmpQbgLN4tG3ShTZOdzhjbnPP m oEcqHS0fEQNjjacjRTMiuX8oH KOuM4w7ScRtOrW9QOkxR9QrYE XhwabfWg90hR7xXyHsNxH1ABy u B2GgcpC6HPFreDNiOKjcWMA5Y 00pj7Z9MYYvCKCzUNZ9bBM1bQ 1hbGlnbjogbGVmdDsgdmVydGl j JQrxTAwgD830HBNtfXqkXfRcV GluZyBEYXRlOiAgMTAvMDkvMj AyMzwvdGQ+VIPbKZN2tTmeVYR n cVNaOXlbTa9zdLfjgEerXV0oX JDnbghlPRXppV0mOAIpiGPavE sxEC6zQIQcatsmz602ZaMgZVZ 0 TECvcWZiJ9DefU8uZrMcVMLuD WZhH0XktRZeLHqnA738YZrlAa J9GOLpjhSsA6NdLHAnsTinEpY 0 d3D2Yf5Wt2EarcxjA9LleDGtL fZbGipvOCo3W4RvFmywiDR+PC 64XGDqVN36GRo3KSB8cLofKVr i LNKuV1HbvJ3tWfSvTAXzZXKvI yc+PHRhYmxlIHdpZHRoPScxMD EzNeYppLccJQ3cJz7kJRSoGPN v wIbnpDYsFkRzk8xnDFRyWJevY J1xeVurL5AsqTL0RJXxh2e5Os 51V62iQ3AyvKT+UYHlzWN8aFR 0 zS5mTnExPkA8VJkaB475LqZzv BDfYoghe7uan4tnqQq3OrH5JZ KoguQlzLlfMSL5r3KwLv02K86 s IHdpZHRoPSIxNSUiIHZhbGlnb m8pwG3aFf3+HFMguJP8sPM2zJ 3jVkGvSgW6YPaxY194MdRicQM v Vxlxg7upq3ggrGd6NdDaEOBvj lUnpKzoFSN6o5AnVi28C0NxsP oni3DeNhd2wg61uEGpy6I0sOH 9 I3CtJYIwddsmhKSttQluBF0vH NJhdzteJZJdeR6hDIMkR9y7Lz RuOxD9NKqjL6ZhxdJ1HHRttZS g DAZglFRRpR4kdktce2iwxubzP mVzSNOsVJt4WMx5GNBpyOksAa IjICD9VfG9KJM7uCFiqT5ztEe n neizfI1mKcl+SRP5aAEboWJHX K6nRojocKS+YDBmUXM0kXgeMT suNNKmkU2cYUVwM1z7ZqDlYmI 1 PMsfE8FxymC8ALCheWUgVQFmq WKYeT8drdxkc8iclkeiMlPpHW DoKFo6XNg2RNWcpZwrLoYjWZW 0 TtE5OGM3fICceW6rdIsqxthph G9wOyc+VkimiWciHED6DUv8T9 CzAgy3JTAwdKtgPI8obVYiMNl u Qq9qjYcviKpuKG5uEEXshdttk 228RqMkw5zkRUWjpBRjBTrcYJ U3L54ho3I0XFYuZBBvMTU0xED 4 tF4oiBrdzwfqpOSeaBllgwLdd QcxLSimJSeiB075DVWsjOnpYc XmODq0L0RbYke3UDLajEcaZG8 n bNIpAKbfXg7ggNozeWzsBZ8fW FKougjky841BhIfu7skJAGccP BqCPdhBRO7A45gt3Y7TCJxRQQ w XUG0wXD5xG0azZifxtakbDUkl ZhccrFzxUnvOVxbZKgvA297VP AnbDoaXeKyvKs0O0ZeBgx1OAL z wZtaBN6plQLoBBqsPz7zvWtzj DchFU8iEIZhqewoj452SrNda6 trYJIkeMPeWBjiFJA8K44pl6T 6 XAFmUNDeTDS0rSI8hJ2pbQskj jogbGVmdDsgdmVydGljYWwtYW zbH180FFSmqDubZqGoeTpcvuY g SQqgECz1D3RkSwdioYH+PC90Y PPgNI78cRPloDQhz3rowHn3Xf TkKXImTLD8nAoiSTigs5ZlNSC t H02auSSuj3Z3BKRovRegtZNiB vXgdAY1rU0vPLiwazloi2szly njCbqkg3bsdf18mA70R46xBNb p OZPmUYKkNOYaKQPjwAhfvh0ls G9wIi8+IGGoyHB4vJN5uI7zAD OoSxO2BFruX015TeZclTWgQog j y2tsv1idhCv6QtD8NKIasfPet SywLST6q0TlLi08G67uUEssBN TfQOCpTDAeJMCwkEpnyf2upY9 w Ii8+JXHwsAK4gNF6dL9eTqGeD sJ4SIsfY831DhKmqIBaDvqiY9 3rV4VcxXR+CIWtDxc0CTVfvCh s NP9uvZYeRTwbVx5fNLI5UsXcA gDkQCwvG1WaERQgipslsphacL G3FSYqRTXgiS78Xr3bnNzzZGY w zCWGiA2pygkzx3tzzvozWjRxA LFlWLz6YWv2ARRuiNhbLsGqAM N9PwD4UVR4lNNgwP2zsRdrcav g iC9eT2JfDTFcfgetWk42yO3dL uQjOcN9MHtnOax+QkFVRVIsIE dBVkVOIEFORFJFVzwvdGQ+PHR k USB6wVjeIQxtOREkeR4sVPZhT 6x4MlHgFqN8ODscP5ZuTDXhbe fbSc09iY4hTvTqTcQ3HOjkY6L v fbQ0FXMopFOiFEssVFG5Y98vt 3C8LNTkKZTwNOA3rKR2wA2voA lnbjogbGVmdDsgdmVydGljYWw t ZAucT585KSPjjDnsKwAuNhQaP vBlBVJ4C0CcZhe9QFLlySpwOR 3ekJApIWejMb9sgTpngIwwCA4 w KOJobbukDJJkjX0aYZAaxIIrb ZdxJE9wUZFedgaxr915BbXrPD M7MTBcaVOrS2TfnD3aQtPhAQC w RPCmV2GtdKRnWOllS593DRzgK vB4LVVvwrKaZ5KxXTYjsBanOk Z4o3G1Pb6sCLJOOJDlotgfcGU + XVPiZPX8fLocQYztLPMdyH6oO JWaF7e1IpTbQtG6FVyrQ7RtRV JnehzmSn76bI9dPpSzZvZ5PEf u U5VfxrH1WGXeoCZdTBziVSR2F 80bf0S4MTTaAOBbKVR9wTV8fL 1hbGlnbjogbGVmdDsgdmVydGl j GPfeUEyjY690GDDhtJwcQa2MX NT8K6TeBcz1QIZciVozIL4ltQ YuIRyeJp9tmEignXhzKH2eENB p zukfQKAowC3ySQBbjMMcwCsmZ V7wYRGflvfeu551SxXkJBY7TU NxgIQkQ3FzgP5hDfFuWGPwLEF w U7WgzAZpGEefN571BXsdHcI6Q RIcfaSrN8ZqBMQhpIfjAiK6f7 N7Qu2YJVozyBN+TF48vd21D0R h UykxCon2JOOtRVO7rBT9pR1uD XVuRDjuy2L0xYD5W0CsytHdsu 8ph3pyTYPaICxmT75ycAAmx3C 7 TCPnoMY7HQLegQfjHjQixJ19W yc+GSRzlMnbk8IvDzzcp3yuj0 ebzPa0RqPzJIKmahEozZkpHAX 0 s1AwLg76B27tUIyeXDWsWWHjC EDeGOOviCaqje7tkV5tQt1+PG QlyTU2vJG1kU8fUrQqBzZ8EUg p Z531PwFcpIXoVmnws0fsp8jmn Ns6SgYqKQGwepJygSmmNJX7m1 ZjIi17C8DfiMpqu6DdNqu9bu1 8 kWGqk1D2kJD2W6EbIQVezbkxa DDagXbhKC4hYUNoheunIXSvbV 1nMAQlD9x4UpQeJvX8UFmqS6K v frC6WMLafUPkRQKvjXVDlU2bj mrum7acociqTvOyZQFcMLu3OV l3JUSqpFkwOqTnMBB7BpI0SXE 0 eYGjaD7omGvgkgwjsG4oXis+U Mg3o0rvbEMvVQ9prSN5LG92RS 69gMPzt6M1aCJ9M7BlLZHqbko t vxqzbZA2EXHtYPHkfY30Ft2hs NzbQq7eREAeMLO9WRDotUQaE6 TsvV7cVnLhEXPnZNSmP0TkiYQ t QWknI197AZwkEpF5HIZdnsUaO 0FbUXMlrHpvPqL3i9H9Qd8AIL 32VU52VO91dJXzl9S1vHG9B8L h BIRdiypwnaocoRJ1FOAiUDVkk W21Qr2skRhuOz7nVHXfGCR9HK JowXGiD1ChdZ7qQqYgBZZrSYZ w H0SklBSyXXdyU950NKneLiT5X RQzsmBaI2FhKYOjcJylHeR6y4 J5Hy5VNa50HT64DS40hMMvy5E 5 cVX1Q3CrTVPalwjftfatmMU9W APqDGXcjT28Xd4smUulCl1fDK TgVRF6OGDzuAQtN3BrxE0eBeF j TCBeHJDjQ8PhxCCkQPphI092I PqiOhF6LFJofpFbK2ZdELAuxP utAvP0y5K5Wi4MACijahy7B0R k PjwvdHI+SD26XJUoZA71hYEbc MIho5shpKv4YhDkCETlSQK1eP reGKhhh3PnWYBfQ99ptWHgs9I 6 IGN (more content not included)... Normal [facility] Reminder Messageson 02-17-20 Reminder Messages - From: BALJIT PISANO DO To: [facility] Clinical Pool ([email or web address]); Sent: 02/12/2023 15:32:57 EDT ! Show up: 02/12/2023 15:32:57 EDT Subject: Results Follow Up Actions: Call the patient with result(s) Due Date/Time: 02/13/2023 15:32:00 EDT Reminder Comments: elevated lft's about the same as before Results: Date Result Name Ind Value Ref Range 02/12/2023 13:38 Alk Phos 56 IU/L (32 - 91) 02/12/2023 13:38 AST/SGOT 35 IU/L (13 - 38) 02/12/2023 13:38 ALT/SGPT ((H)) 53.0 IU/L (8.0 - 36.0) 02/12/2023 13:38 GGT ((H)) 31.0 IU/L (7.0 - 26.0) 02/12/2023 13:38 WBC 5.9 x103/mcL (3.5 - 10.5) 02/12/2023 13:38 RBC 4.89 x106/mcL (3.70 - 5.30) 02/12/2023 13:38 Hgb 14.7 gm/dL (11.8 - 17.7) 02/12/2023 13:38 Hct 42.2 % (34.8 - 51.9) 02/12/2023 13:38 MCV 86 fL (81 - 100) 02/12/2023 13:38 MCH 30 pg (24 - 34) 02/12/2023 13:38 MCHC 35 gm/dL (26 - 37) 02/12/2023 13:38 RDW 12.9 % (11.5 - 15.0) 02/12/2023 13:38 Platelet 254 x103/mcL (138 - 427) 02/12/2023 13:38 MPV 8.6 fL (6.3 - 10.2) 02/12/2023 13:38 Auto Neut % 57 % (44 - 88) 02/12/2023 13:38 Auto Lymph % 28 % (14 - 48) 02/12/2023 13:38 Auto Manati % 12 % (1 - 12) 02/12/2023 13:38 Auto Eos % 2.0 % (0.9 - 4.0) 02/12/2023 13:38 Auto Baso % 0.8 % (0.2 - 2.0) 02/12/2023 13:38 Neut Abs# 3.4 x103/mcL (1.5 - 9.2) 02/12/2023 13:38 Lymph Abs# 1.7 x103/mcL (1.3 - 2.9) 02/12/2023 13:38 Manati Abs# 0.7 x103/mcL (0.0 - 0.8) 02/12/2023 13:38 Eos Abs# 0.1 x103/mcL (0.0 - 0.4) 02/12/2023 13:38 Baso Abs# 0.0 x103/mcL (0.0 - 0.2) attempted to contact patient, unable to LM, multiple rings, no VM Patient returned tamra and was notified of results. Normal [facility] .Auto Diff 1on 02-12-2023 Auto Manati % 12 % Normal - [facility] Comment on above: Performed By: #### 1 [id number], [id number] ####[facility] (DEFAULT)[address] [place] [address] Baso Abs# 0.0 x10 Normal 0.0-0.2 [facility] Comment on above: Performed By: #### 1 [id number], [id number], [id number] ####[facility] (DEFAULT)[address] [place] [id number] Basophils/100 WBC (Bld) 0.8 % Normal 0.2-2.0 [facility] Comment on above: Performed By: #### 1 [id number], [id number], [id number] ####[facility] (DEFAULT)[address] [place] [id number] Eos Abs# 0.1 x10 Normal 0.0-0.4 [facility] Comment on above: Performed By: #### 1 [id number], [id number], [id number] ####[facility] (DEFAULT)[address] [place] [address] Eosinophils/100 WBC (Bld) 2.0 % Normal 0.9-4.0 [facility] Comment on above: Performed By: #### 1 [id number], [id number], [id number] ####[facility] (DEFAULT)[address] [place] [address] Lymph Abs# 1.7 x10 Normal 1.3-2.9 [facility] Comment on above: Performed By: #### 1 [id number], [id number], [id number] ####[facility] (DEFAULT)[address] [place] [address] Lymphocytes/100 WBC (Bld) 28 % Normal 14-48 [facility] Comment on above: Performed By: #### 1 [id number], [id number], [id number] ####[facility] (DEFAULT)[address] [place] [address] Manati Abs# 0.7 x10 Normal 0.0-0.8 [facility] Comment on above: Performed By: #### 1 [id number], [id number], [id number] ####[facility] (DEFAULT)[address] [place] [address] 12163 Neut Abs# 3.4 x10 Normal 1.5-9.2 [facility] Comment on above: Performed By: #### 1 [id number], [id number], [id number] ####[facility] (DEFAULT)[address] [place] [address] Neutrophils/100 WBC (Bld) 57 % Normal 44-88 [facility] Comment on above: Performed By: #### 1 [id number], [id number], [id number] ####[facility] (DEFAULT)[address] [place] [address] CBC w/ Auto Diffon Erythrocyte distribution width (RBC) [Ratio] 12.9 % Normal 11.5-15.0 [facility] Comment on above: Performed By: #### 1 [id number], [id number], [id number] #### [facility] (DEFAULT) [address] [place] [address] Hematocrit (Bld) [Volume fraction] 42.2 % Normal 34.8-51.9 [facility] Comment on above: Performed By: #### 1 [id number], [id number], [id number] #### [facility] (DEFAULT) [address] [place] [address] Hemoglobin (Bld) [Mass/Vol] 14.7 g/dL Normal 11.8-17.7 [facility] Comment on above: Performed By: #### 1 [id number], [id number], [id number] #### [facility] (DEFAULT) [address] [place] [address] Man Diff? Auto Invalid Interpretation Code [facility] Comment on above: Performed By: #### 1 [id number], [id number], [id number] #### [facility] (DEFAULT) [address] [place] [address] MCH (RBC) [Entitic mass] 30 pg Normal 24-34 [facility] Comment on above: Performed By: #### 1 [id number], [id number], [id number] #### [facility] (DEFAULT) [address] [place] [address] MCHC (RBC) [Mass/Vol] 35 g/dL Normal 26-37 [facility] Comment on above: Performed By: #### 1 [id number], [id number], [id number] #### [facility] (DEFAULT) [address] [place] [id number] MCV (RBC) [Entitic vol] 86 fL Normal 81-100 [facility] Comment on above: Performed By: #### 1 [id number], [id number], [id number] #### [facility] (DEFAULT) [address] [place] [id number] Platelet 254 x10 Normal 138-427 [facility] Comment on above: Performed By: #### 1 [id number] #### [facility] (DEFAULT) [address] [place] [address] 50139 Platelet mean volume (Bld) [Entitic vol] 8.6 fL Normal 6.3-10.2 [facility] Comment on above: Performed By: #### 1 [id number] #### [facility] (DEFAULT) [address] [place] [address] 26218 RBC 4.89 x10 Normal 3.70-5.30 [facility] Comment on above: Performed By: #### 1 [id number] #### [facility] (DEFAULT) [address] [place] [address] 85621 WBC 5.9 x10 Normal 3.5-10.5 [facility] Comment on above: Performed By: #### 1 [id number] #### [facility] (DEFAULT) [address] [place] [address] 23977 Liver Enzymeson 02-12-2023 Alk Phos 56 IU/L Normal 32-91 [facility] Comment on above: Performed By: #### 1 [id number] ####[facility] (DEFAULT)[address] [place] [address] 94080 ALT [Catalytic activity/Vol] 53.0 U/L High 8.0-36.0 [facility] Comment on above: Performed By: #### 1 [id number] ####[facility] (DEFAULT)[address] [place] [address] 87903 AST [Catalytic activity/Vol] 35 U/L Normal 13-38 [facility] Comment on above: Performed By: #### 1 [id number] ####[facility] (DEFAULT)[address] [place] [address] Gamma glutamyl transferase [Catalytic activity/Vol] 31.0 U/L High 7.0-26.0 [facility] Comment on above: Performed By: #### 1 [id number] ####[facility] (DEFAULT)[address] [place] [address] Coding Summaryon 01-16-2023 Coding Summary HTMLBase 64 EretbazkDOa5cSv+PGhlYWQ+P F9PZSOdY46jpCLqhJ2xE0NDQN lOSywgQVBQTElOSyIgbmFtZT1 kaXNjZXJu IC8+IY5kEMPrChomfCUcn6L2h IL5V56qgn8nWIfeaQR4UOUvNj Sdxfhbf9ehcFc5BOuhGnwsKiJ t CZAfiY70EWS9rP25Uu36gFJyu ULjt9dvwVx3DbNyPMAhKXJ4tZ omFSxos2MpPXIcW52wgHPla3C 6 CQDtyLabkDWqHqVtyJL8gJ9xX Lwsnyste1tedzohTqu6ly77lV Ewi2G4pFR7Y8GtptW6VHMnpFR g HjsgnNNOvO6zksabz6wojsyjE nTsCZNkQBo5GXq0EZPrtWlfDk CsJF14CUW7WJDzucNbL7SzDXZ s pFoaBaP0w9R7Jf2ES0NAHqoyV 1VNTUFSWTwvdGQ+HQ25dy79J9 YlCmbbKtv4VWLbIJT8rNK1yE3 n CFSiCIqhb5V0hCU8M9YlpcJhy j4dg3gdFZSqLErnE00cqTAun8 H8TBPttJS9IMOzcIucVsIwjV8 3 Oyc+GWJhzUuzn0UrMxbnn8whi 1frtPt3HnygGGUibqZmoOkbNV Q9v2YzSt7dVBZfxGJ9jGP2tY7 i YoPcZpH8NLcjP450XpJzqAOhZ jskB88aP4ShqIC+WRLjKil6PX UegPgzSN1aI4VgRAXaezpgvGI m hGkrDC6lXLNdalgwBFFhuU9vT SYnF5g4CuRfHrZ5YMerO2DnFA DltqsoXs43xS0sAqJwQaN9CBa u E4AnjcR8FQHqlXZzRLuqZMK6E 24xx3P6KJAaJPVwJQF3gAO0aW 1hbGlnbjogbGVmdDsgdmVydGl j BBclCXmyB497QCDlhSsdHvFqG GluZyBEYXRlOiAgMDkvMDgvMj AyMzwvdGQ+LYPlEWP1hAflFXD n zNVrJAcsDn0fzWzrtBqiMU8mQ ZVvfcphFNIfpJ8iRIMtjQUczR vfQY1eNIUlgouzn055XzJiMOB 0 JYQnpZZsX5AauP8bPwNzSDNpG GQtR6TtkWHzTKxeB329OSilVt Y6GOMoyzAiI7NwTZSuzMqzKaH 0 b0I0Fw5Ss9ZwmzyaN8GabTFjM gQlKstrHOy0R9GlXmrbgSV+PC 51GUSpNE50RFp6NRU1zPekOGp i ZAHrJ3ChvJ1dIoEuEXCjBDHrA yc+PHRhYmxlIHdpZHRoPScxMD BuHwGwmHvhSW4gHa8fKKWyUBV v mSwipCTvHcDet6fjMRKgAJzgF D4mbIicO5AaiUL9HGWsp2j9Zq 49Z82hV6MscTX+JPTtjNR7xUR 0 bY9oPxDtGoZ9FLkmF546KvTrr BMcAixif3taq9poxYb9XyW8RB JwipAerBuwIKM6h6AyId95M40 s IHdpZHRoPSIxNSUiIHZhbGlnb z6feP0yYm4+PMPulGM2eDW0eE 5vZoRjGxS9WJzmY780NsUkuYC v Rmzwe6egb5bfiSi1XpKbVIFdh aTvaCoxJYH5i8XyMg02Z9VzsY bet3MkDxt6kz86lJOyx2K8mPI 9 E0BjBBLxbuuxxEOnxUjlQR4mS GCkfphlDRZhoE7qKVCkQ0c2Db ToOyW4MKhjT6AwcrK8TBWtzHT g KPQiqQWDrX1ljgrlx7njltneF wGlBIMlSGm9JFs5YBExuLwqVz CkDIJ1RmP7JOG0tZVqzL5ulMc n ilptgP4jYid+NDR4aHCipBEFT Z5gUstamVX+UIEqTLU4lUmrCL tsRYLqhY7fKKKfL5t8SsHhEtA 1 ZWhkA4EdjkI3WYAojQKsKCXso GFNzI9nsfvks3eryoomGbOrYC FsBJw4MUz6LSVkxHxdRiZoWNM 0 NlR6SSI1nGFyuF3siDutjkptt G9wOyc+DgkekZmtBKR0NSp5M8 PbWwb3UURitOqeNE3wtOJxIAl u Hw2ikMsltSycMZ4qAWShowhyx 010IdMlv6ndKPQnbHBcENboHK B4F09lq3D2MDLwSWPbFJL2sEL 4 pF8odZixbclbrROolCgvfsXzn TfaJQgjNKqyM918ABIpdHabNt HsDFw1Q9IsCdp6MZRcvIncEW8 n vLWaEDsqZo0apPediUzgUG5rF RTmpiggl162SfYej1peIPNoeX RnVRafLZU6E96rb3C8MIQdTMF w OHR3dUP6jQ3lqRoqmgcznFFku IlltpNrxJxvAStpJSsdF643CA EybWhdRoNuiGq5X2BmAsl5AXR z dImbBW2zmIRyJFreVb8xpUnlb UluVB7bEFSufcsgr100TrVgd8 prZRDlaSDwWUcuAKM0U39dt5W 6 NFKwVLFbUHI2qZI6pN2xtQbwm jogbGVmdDsgdmVydGljYWwtYW ihJ012BCDjlStgCbUllXwkfpF g HNerSWt2Q2FjShcrdQN+PC90Y EUwJG04vOOzeHRgc1qwlRs9Xv YlKFSgNIM9nFzaAGfgx3CmQKK t C26djUXik6G6RRIgsEcdfGYdS aQhwSX3rR3eXMhmhregt9dyfg hmSikpc7xvig75lQ00A60gZXw p NWEyXELgRFAcVCQdvRgtzf6vw G9wIi8+OJFvqRQ2cZW2iF7pQY KbRtZ0MLvkB264DdRzrATxCht j f0yvq6xzrBv3IoX2RCBdebErv PueXUS1s8IvSn49L25zGRkxOF CrSOVnWMFkQZUwbVjxio6urF5 w Ii8+NQFozZE1dYX6mE5jBwNyO aS8FTvqS628VoDuvXIlSibnO0 2rC3BkaHD+BQBrMxu6RGTabPe s SO2bgRYfEVlsRr6iQEA5LuBdZ kItZVvaM4KjKOXizjsicmjlvS U0PHYrHBVkmP39Xh2thTjbHTG w sQJZhO5gjtyen5yedftwOpMkH NRqPFl1BVw7HQRczKwvJoRpJU T3SvN0EUT8dCYgtV1qrRbvzhd g mF3cD3BtVXGlaizhRh23cJ3xQ zIgLpD7AWhoQhz+QkFVRVIsIE dBVkVOIEFORFJFVzwvdGQ+PHR k IQE7uGndGDsnXBDlhR4dLDMwO 3v7KgTkBrC6NPopD4XhQJUvpf vrQd78aV2oEpQpUcN4LWqaD4S v qtY9GTAxbCJsCDgmYMV7P56pc 4J2MOReCCNcRZT5vNI2pF2owS lnbjogbGVmdDsgdmVydGljYWw t KBkgP993ESFfaSifDyBlJoKbP oXrCMB6G7JgGcb5RNActRczOL 9cuGEgYEvkEq9epUtvnIjqAC5 w ICHzyigsUUHoxG9dZQMibOWdo JkdTI6vUGRtpkulp716EbJiJK M0SROprYAsY7NbtQ9kMeNyGZK w VFLvP7YsrGMuULhjP209HQtlR eK7IKVirhYfD3RkCWXuiIbuYk Y3f0C9Kd1aAVNLGNFpjyhtpHZ + BOBeNNJ9kKloOGezAHWyeL7vD JLiW2z6EbHdAuR8NTovG5SgSP EzwdzdVf74vK8qVuJeAcK3JOf u U8ShfwI6FDEmiVBjZMgqGNK3V 25sp9N8UERoNRHpFOM2rEW6mH 1hbGlnbjogbGVmdDsgdmVydGl j JEesCSqeA406QRRfmPecPb9TO HH5Z7XgQec7GDWfvLjxMB3mzH FgSTqwMy5qdFckjPhrAL6bZLE p dxcwPFBsxG8aJNSsgGUhqErsP Z3hXKJowhghm992ZkUfWLV6PL QlgRUwJ8EdyB0wSkWpAZUeSUL w R0JgdNSoDCmjY717ZIeaVuS2K KHcpgFqW6NqYLBmsAhpOaJ3s0 R6Dp0SQLsteNW+BK74jv48V8L h LcjkPoc9QFDkYJM8kLC6qY5yH PRuFZzns9N8gWE0U1OakcJyrc 1tj4eqEHUzWIyeT96dkVNrx3L 7 FQKimJM1SULdrHneFrUpaG82L yc+BTNmnBmix4GqRacpa9ozt3 zlqKu6CpWjYWVkghZwqZoqVXK 0 h7ItBr67V21zHSheQGMgXYDwB FUnAQTrfOwsma7fpJ1vKk9+PG AhlID5oOZ7xY2sAbIeAdB0IUj p E075HsGovKEuZhwdz5jwc5lvv Zk5XkIvOHXxdnRhkEewKYQ0b0 UiEe17N2HqdFckt0OtRvv4yn2 8 xYGmf8S7xSV1H8UaUHEihnphe OIwpHjkGN8tGBBsxanjPXOqqD 8tCZTwR1l1YlNuCgW2VVjgY6T v tcQ5OIRpeDSrYFWhdOGCsQ8gn bsgn8piecgnQeBoBGWtZDc9LF p1ZLKmhCcyPwSnJRA3UtB0ONU 0 cLSpkW8zlNalmgknuB6fQbh+U Xn1x2wpwGLrFW0rbGB1KA48NH 69oBGza7L7qUQ9Q7ZqEYShghg t etbhvMH5RRBgJBSmpB74Gl3pe SiaRy4nVOAnPVC1JIWssULxD2 NniT5iFbStWRSfBBLoP6DlgSV t DRlnA908YOvtLzT7MNNqcnPcT 1DsSZEdvEmmHjY3e2A7Wq5FXQ 10MN67XT82nIBot6I7hTV4F5M h JFGnfszuyhhxnBH5WIIwWTZfi P59Gf7ksMezBa6vBJDzFYY9GY CyvAEfE7OhaS8fPmUbTTIbGYM w L9IaoXOlILciZ148MDelPcD4B QAmwdFjN4KlZBGheIkzQhD4w9 D1Vk6BFd75CX37BM85iWLtg0X 5 gSP0E6FeZADhzgfdaqjdcYM7E XRtKGCvfP65Fk3xnWutTo0aCE IaWTL8GHTosOJmI4XihS3qXtN j RLLbLJMsY4LdjUIlVIygJ417O YesLhV3MRFactDzD6UsIMAwhV eiDnX3m8Q6Tf6AUDploko2N9N k PjwvdHI+IE14DODvDP13kNGdm TVtc4inuIi5WqJhNRThLEU3lF roKFuom7NnYFSoP82uoUIin5R 6 IGN (more content not included)... [facility] Outside Recordson 01-15-2023 Outside Records [id number] [facility] Reminder Messageson 01-15-20 23 Reminder Messages - From: BALJIT PISANO DO To: [facility] Clinical Pool ([email or web address]); Sent: 01/13/2023 07:37:35 EDT ! Show up: 01/13/2023 07:37:35 EDT Subject: Results Follow Up Actions: Call the patient with result(s) Due Date/Time: 01/14/2023 07:37:00 EDT Reminder Comments: a bit lower than last time. all part of Hepatits A Results: Date Result Name Ind Value Ref Range 01/09/2023 9:07 Alk Phos 57 IU/L (32 - 91) 01/09/2023 9:07 AST/SGOT 35 IU/L (13 - 38) 01/09/2023 9:07 ALT/SGPT ((H)) 54.0 IU/L (8.0 - 36.0) 01/09/2023 9:07 GGT ((H)) 30.0 IU/L (7.0 - 26.0) Notified patient of results Normal [facility] Reminder Messages - From: BALJIT PISANO DO To: [facility] Clinical [facility] Sent: 01/13/2023 07:34:28 EDT ! Show up: 01/13/2023 07:34:28 EDT Subject: Results Follow Up Actions: Call the patient with result(s) Due Date/Time: 01/14/2023 07:34:00 EDT Reminder Comments: swollen fatty liver consistenat with hepatitis Results: Date Result Type Result Name 01/09/2023 16:08 Radiology US Gallbladder Notified patient of results Normal [facility] Liver Enzymeson 01-09-2023 Alk Phos 57 IU/L Normal 32-91 [facility] Comment on above: Performed By: #### 1 [id number] ####[facility] (DEFAULT)[address] [place] [address] 86214 ALT [Catalytic activity/Vol] 54.0 U/L High 8.0-36.0 [facility] Comment on above: Performed By: #### 1 [id number] ####[facility] (DEFAULT)[address] [place] [address] 17580 AST [Catalytic activity/Vol] 35 U/L Normal 13-38 [facility] Comment on above: Performed By: #### 1 [id number] ####[facility] (DEFAULT)[address] [place] [address] 00505 Gamma glutamyl transferase [Catalytic activity/Vol] 30.0 U/L High 7.0-26.0 [facility] Comment on above: Performed By: #### 1 [id number] ####[facility] (DEFAULT)[address] [place] [address] 14201 US Gallbladderon 01-09-2023 US Gallbladder Clinical History: Ri ght upper quadrant pain. Technique: [Sonography of the right upper quadrant was performed. Images were obtained and stored in a permanent archive.] Comparison: [None.] RESULT: Pancreas: [Normal sonographic appearance of the visualized portions.] Liver: Diffusely increased echogenicity with decreased through-transmission suggestive of steatosis. No distinct focal liver lesion. Biliary Ducts: No intrahepatic or extrahepatic biliary duct dilation. Common bile duct: 0.6 cm at the hilum. Gallbladder: [Normal caliber without cholelithiasis, wall thickening, or pericholecystic fluid.] Right kidney: [Visualized portions unremarkable.] Ascites: [None.] IMPRESSION: Diffuse hepatic steatosis. Otherwise unremarkable ultrasound. [] Final Signed (Electronic Signature): Rafita Farris MD 01/09/23 4:08 pm Technologist: [facility] Coding Summaryon 01-07-2023 Coding Summary HTMLBase 64 GhvpaqiaROf4kPf+PGhlYWQ+P Y1SGERiW51meSKmdK0eE2JPHO lOSywgQVBQTElOSyIgbmFtZT1 kaXNjZXJu IC8+LM8kXPToRgsdxEYbk4D6c MH0W37bmh1vQPljuAH8RIAjTp Lyhxzks1xvaVy1YPwuZhdkVlR t QRFzwH58WFA3uK16Hn23oSAer FUuv7weyOp6GwEkRLNnEPV5rK dsDFcsy3OqPQMiX98hjNKcg7O 6 KNRlwBsnfEJfSrXukSX2wF4yZ Nhvujbdu4fgxvxuQon7rh40jB Fdq2P9kUJ0X4AstjZ8JKKrvSY g YgyssPEAfG3fncntc7tyqmncP tTrHIKxNGk9WMp4IKHkkXdnKu EaHJ37BBL9UAPmzeTdU6FaJXB s tSzhGrY8g7J4Nz8YB9QBJuvcP 1VNTUFSWTwvdGQ+SW45oe96E5 AoAjveVth9MVLfAUD5mAK9cF2 n KHSlSIglx8I9mXT1V2BuvzEyd j6oh0coFARbZBmyD78wvTXsc5 S0IUSleRL2PBStlJceLcUxbD2 3 Oyc+ILJwiCwpi8TrKcidq1ael 6cwhYo9RcusFKXuwyCowSfdYK E3t9ZvSi0xZBTpnBC1aCI8bM4 i CxLrKuT7JAnwM547JcVipKQbE kioW69gN4JlcGT+IWQfIin6BO NjfZlkGN2qH9PsZIPyfxsssIW m tPhiLG2dLGLihncwMOHpcJ3xJ AHgB1m5HyAqIkE2KFjwA9MyLN JhbhswLt16yI0aMfLqXhA8EKf u Q9VtxgI1BASfoGCtUIliGZW7E 04fo8K0HDCqOAHcDKR7zGL2jB 1hbGlnbjogbGVmdDsgdmVydGl j NEpxYUykN917EMEqxRxkBzLwG GluZyBEYXRlOiAgMDgvMzAvMj AyMzwvdGQ+EKDvZNN2gHiqROB n lXLnFEcfMn9uwMckyIoeVM6hC MLllfqxQHFxhQ7oVQNkzPOfgQ atDV0uUVXssghbp211AzLtHQU 0 PXLloFYeV4LmeN4pJrLxUXQkQ NZxZ0MoqIWfEEaaX318MPdyCe X3LXXemjQnL2AtQFTooSksAjP 0 g6J4Rx5Uj2NfppjoO7BwiVAmF uBiUtlcSVw6Y2IcElfyzWH+PC 51VPTtYP30ENb4KSW4yVmbKCs i YTAyI2OniS0yHsVaWTDhLGOmM yc+PHRhYmxlIHdpZHRoPScxMD PbDrZrbBqlBD1pNs2dMKCeJYF v hFtluLZdCfFbs1rgYARiWRouH F2mqNsjC8LykCN8XRDuh2x4Rt 33Z12lS0HceBI+MSVzgUG3yTR 0 xY2fAoZqVrL7QUgcG782IxOck ZFoGgyhi8duj5hbyIn0OaP3TT NojgTkiXucKYB7t9LePj01A58 s IHdpZHRoPSIxNSUiIHZhbGlnb n0thZ8fVc6+IANagPY2nWN3dJ 1rIrFqOvF2NClmB396RbPuyLW v Dyiab0xns5hzuWm9NsOlZZMve eWvxYtjBYX0p0BvQt95O3SyvT kaz1AzRpu6xe31vFAjl9S6lVZ 9 F5AyVIGdexygdQMxrKssJQ4wL AHssfbxHWCxvD1jJVCuQ2s9Ok PzJiY0WHybV8KrhhV8FIVzhTB g UAOtsDLGmN2fwxplw2svplmrG gMoWDIiKPp7CFl3PVZmwTzpFr JzEJP5EbZ8NLL3sNJmsH8mkBd n itzjnY5yQtp+ZFN2vHJpxLDEM J3pLzqqiYI+XYLjKGJ8qEyuAK roTMGkqS5cRLAjN2r6LaLvJmZ 1 DDkrZ8VlfdK1KBMvjWBuTVAny PQAhP5dzflad4yjajttRxEvLJ SvRVv6PPp7RYRkfXitJgGfSJK 0 KqA0MYY9vTTgzA5huMepamaio G9wOyc+LkzpwIadSUO5SQx6P1 CyLtt0RLKazXyiIP7xiNZrMVg u Wq5ipWygwEyhXX8mATJtpiiba 172KaSdl8wvCUKhjSGaJJiaOX K7T29ow2O9RXIpDBTeMAY4gVL 4 uT3lfOaskedliVYxwNaxngUfr QdvLHklIQmyV265XYFlqOffFb YrAPp0N6ZsFmz3XHOmbWzxVR4 n vOYdBVjbHz6xxFpejBlyIR9bT MHvffpbd423XoZwm1yeMKBpiF ExKUyrKLR4I18fo2C2UTPgBZY w FOS9vEH2nK9mfYfjxlifzJLot OcgyoNclSjlYFpkBLinF362QW TbtXrkJwHhvRc8H6AlGbi4MQS z uJdbDQ5spAGoNHnrWq4ktRmcc SvtSR0gHOJzsiwzh720MgJyy1 upKPBlgQKfNNvqVIN6F99pz4E 6 ICZfBNGvEWW6bSB2tB2gqIcks jogbGVmdDsgdmVydGljYWwtYW siR586EMQaiKbeQtRymSfgcsQ g QSeiTTb7A8ZlZqhrxKH+PC90Y UJsGJ52wHSylZFdv1peoIp6Et YyYGEtCWA4rIjvMEepo7EgEIG t Y94ubXAfj2J7WAKbtJdzuXCnX mUroGX4uV6vWFpejkepf5ehly geGtkoc5aqas21uD77Y88gGYf p VCZeAJShJJQwYEEslNpawb1od G9wIi8+YLXpeCL7kIN7pH9sRY UkLaI0ZNahH033HdDcaYQnTvo j u8pbr3rqyGo8LpY5WYIzkyVee HbgRFO6k7PuIf44E61uFXyqGY AvISJqZDSqUZXccCwsvv4rjP9 w Ii8+RQYlqRI8iXF6qL0qIbFmW tZ0HKpnD959EnOppMMdTrbwI7 4qW8BihWS+VKXnMea9AZNpkSs s LU2qqCIwRXroHa8lAMX5KyXfZ kBtFTzmG1WbWEPuewcgjwubqK W9AWJoINJmaQ56Dt9iwQhmFMG w aMOXuW3hskfkv5opyyfhSaOzC UDgEQb3JOm7UAFshLcpOgTbNB J9EaQ7IKO5iGNllT4jrFxvpfi g fX1eN7AoJHEbxtbtRv60jX3nM rVuTmC0DYrcMdq+QkFVRVIsIE dBVkVOIEFORFJFVzwvdGQ+PHR k QIN2wTxxYZquYBOxvW3hVLHkT 7l5DmBdHxI4QPxjP9YkAWSolb uoWv01hF1uWbPnGfL3JVznW0D v tnN7EHIcpUInBLmfXOB5D47sr 2L1UMCqAPBcVZW1fFS0rZ1kvY lnbjogbGVmdDsgdmVydGljYWw t BDxoM883RONjsQahRuRrFqFrT aFwMEK0D1ZcMez3AYUipLdzBX 3eqZGmSEasKw9tzEnwlMpmDL0 w NOOlwajsWBDwdC7dUPNfrIOnd HqtBB4eTLRcvrjxv883PaZeXL A6GCDvqPAeL1QjtN8eNpOlYPR w IVMyH5JnlLYwYIcgZ813AZagA iH8PGUklhYvV5EzZGPgjAynQt E4c7N4Ku4yMIJPCZOeftvqgFY + DTRxJMC4eYwmAAxtKCTiuB3oP OGsM2n1XpGtOlD3AXduO1NxSW HwghdoCc88fS8kBvFsNyF1VCd u H7PpsnC6VARcxVTyJXorMBF4F 21wa9A3OEPpHIWoPRA3cGK9sE 1hbGlnbjogbGVmdDsgdmVydGl j XUelSOqfH886QFFyuHbuHy3LA TX5F6IsBnf9NTLunSjnLT9xmQ XmWQcjJr4hfErlzHzhNM5wGUY p hqbdHYShyW5nTBQbvIJkkYfmP P8mMDEdhbvou321BnDfQCP9VV LmhPFeJ1UljN6oLoQzWSTuLZL w F1SsyXMxCBfjR107FLcgKdM3K DGnldLxK7WvGULhlTqiTzS9t2 D4Ny2MHTlopAF+QY83wp70T7S h ImgkKei0ZVChUZE9gIU1kS7oU RGrMCgvz4C4gTF6O0MuhmMcxt 0be0znYAGxLLgjN47aiXHzh0S 7 ALUjcVJ0HBWhyDjqMgDneZ48M yc+UOWmuKmyd9DfVabks2oxc6 okrUj0XoDcPCIaaxPexFlhVDD 0 o6AkZf58G06lRLinFFEpLRViD CYaILOgoPeakh1mrW6wMw1+PG PmyIY4aLG6wC3lJuQeFxR3DTa p F675SyLyhCLvCzjuy1zkn7emj Ri7HvTrELFxuyRedDhzGGS0i8 UpJd60K5XztOcxu7TvPes2cc6 8 gFMjz1B2eLE1X8OjRMQokamjs SMqiSekSD8aQZZfgfnuLRKkzE 0nDDVkT1k3TiOpAnP3VPuuQ7Y v omP4BQRntMQdFGVmdRGVsQ1cf gnrh4vtkjjfOsCiYKBdUPe1WW p3VGQmtPodCoBgGBY0OxO7OXL 0 pZBuvV7ztNahsrldnN6hHks+U Nh6k9zwpAUhAB7hnDX9XX16NJ 27tEAqo8N7vYA1O4DuOTWlmmh t lclhoUE0LTZmNJKdvI67Bu8vj RqlSe6dHABgFFS4XWTbeRPhJ2 YxxX2iOjJxPAAqIVCdO9NqlDQ t GMidE242APdqOjW9DPNcmnHsH 5CnXWNaoMfuHkV4j9B3Dl3IXK 97TT09ZP21rXBwz3T7sBY4H8Q h EIMjcqjcedinsLR5EULxLIRqr C01Cz7plHejFn8jIZFfUTN0LR DfxPSvN9JeyO6xJgCtHIDtFAF w M0FrmWEnDKusK828UFtbDyT9S QRuwgQtJ9FiLOXpsPtjMlM0d2 G0Bt5IJf36CX12NP16jGTru5E 5 rYD8E4ZpOXGgmxayokhviCL9P IEjMCSbcX26Co7ihJcvSt1sZW FiMKI9HDPgiXIeE5DktW6yMmW j AOPhTMFeR7WbqCRiCRgyT657M DkaYyQ1CWYqvwWwC6FnITBmiX okNdA1f2F5Hz3EJZsvecp3O9F k PjwvdHI+YE39WLHtHY66jECuv PLlg3ywsCi0UsRuUIJuMSL1bL umMSisf5InRRJdX51juUQyb1L 6 IGN (more content not included)... Normal [facility] Reminder Messageson 01-03-20 Reminder Messages - From: BALJIT PISANO DO To: [facility] Clinical Pool ([email or web address]); Sent: 01/01/2023 10:45:19 EDT ! Show up: 01/01/2023 10:45:19 EDT Subject: Results Follow Up Actions: Call the patient with result(s) Due Date/Time: 01/02/2023 10:44:00 EDT Reminder Comments: Patient DOES have hepatitis A. that's why LFT's are elevated Results: Date Result Name Ind Value Ref Range 12/31/2022 14:09 HBsAg Screen LC Negative (Negative - ) 12/31/2022 14:09 Hep C Virus Ab LC Non Reactive (Non Reactive - ) 12/31/2022 14:09 Hep A Ab, Total LC ((A)) Positive (Negative - ) Attempted to contact Patient, unable to leave message-multiple rings/no voicemail Notified patient of results, patient verbalized understanding. Normal [facility] HBsAg Screen LCon 01-01-2023 HBsAg Screen LC Negative Invalid Interpretation Code Negative [facility] Comment on above: Result Comment: Perf ormed At: [address] [id number] Chai Apple PhD Ph:[phone] Performed By: #### 3 [id number], [id number], 2667522, 12247244, [id number], [id number] ####[facility] (DEFAULT)[address] [place] [address] HCV Antibody LCon 01-01-2023 Hep C Virus Ab LC Non-Reactive Invalid Interpretation Code Non Reactive [facility] Comment on above: Result Comment: HCV antibody alone does not differentiate between previously resolved infection and active infection. Equivocal and Reactive HCV antibody results should be followed up with an HCV RNA test to support the diagnosis of active HCV infection. Performed At: [address] [id number] Chai Apple PhD Ph:[phone] Performed By: #### 3 [id number], [id number], 1508661, 12568533, 78053231, [id number] ####[facility] (DEFAULT)[address] [place] [address]002 Hep A Ab, Total LCon 023 Hep A Ab, Total LC Positive Abnormal Negative [facility] Comment on above: Result Comment: Perf ormed At: [address] [id number] Chai Apple PhD Ph:[phone] Performed By: #### 3 [id number], 73098531, 4189299, 69250139, 09298697, [id number] ####[facility] (DEFAULT)[address] [place] [address]63 Outside Recordson 01-01-2023 Outside Records [id number]#1.00OTGTI FF Normal [facility] Patient Handouton 01-01-2023 Patient Handout [id number]#1.00OTGTI FF Normal [facility] .Auto Diff 12-31-2022 Auto [place] % 8 % Normal -12 [facility] Comment on above: Performed By: #### 3 [id number], 63470142, 2101450, 19017993, 26170891, [id number] ####[facility] (DEFAULT)[address] [place] [address] Baso Abs# 0.0 x10 Normal 0.0-0.2 [facility] Comment on above: Performed By: #### 3 1832107, 83830905, 1707139, 52380804, 33528678, [id number] ####[facility] (DEFAULT)[address] [place] [address] Basophils/100 WBC (Bld) 0.6 % Normal 0.2-2.0 [facility] Comment on above: Performed By: #### 3 9109190, 01125107, 6396965, 85071730, 38651556, [id number] ####[facility] (DEFAULT)[address] [place] [address]773 Eos Abs# 0.1 x10 Normal 0.0-0.4 [facility] Comment on above: Performed By: #### 3 7847595, 58404965, 7639067, 74016854, 97845853, [id number] ####[facility] (DEFAULT)[address] [place] [address] 14560 Eosinophils/100 WBC (Bld) 1.9 % Normal 0.9-4.0 [facility] Comment on above: Performed By: #### 3 5065763, 29547205, 3452638, 87780089, 83726798, [id number] ####[facility] (DEFAULT)[address] [place] [address]2585 Lymph Abs# 1.8 x10 Normal 1.3-2.9 [facility] Comment on above: Performed By: #### 3 6272505, 98550175, 1827491, 97235509, 31999583, [id number] ####[facility] (DEFAULT)[address] [place] [address] Lymphocytes/100 WBC (Bld) 27 % Normal 14-48 [facility] Comment on above: Performed By: #### 3 0633012, 83219538, 9200879, 64814321, 72385621, [id number] ####[facility] (DEFAULT)[address] [place] [address] Manati Abs# 0.5 x10 Normal 0.0-0.8 [facility] Comment on above: Performed By: #### 3 6295221, 00823763, 5207872, 68818092, 98903693, [id number] ####[facility] (DEFAULT)[address] [place] [address] Neut Abs# 4.3 x10 Normal 1.5-9.2 [facility] Comment on above: Performed By: #### 3 3459063, 45205209, 9405481, 81018688, 24024705, 2385310567 ####[facility] (DEFAULT)[address] [place] [address] Neutrophils/100 WBC (Bld) 63 % Normal 44-88 [facility] Comment on above: Performed By: #### 3 7913710, 40933598, 3407070, 68843229, 80293801, [id number] ####[facility] (DEFAULT)[address] [place] [address] CBC w/ Auto Diffon 3 Erythrocyte distribution width (RBC) [Ratio] 13.0 % Normal 11.5-15.0 [facility] Comment on above: Performed By: #### 3 3444002, 21382760, 5002474, 73312405, 45576243, [id number] ####[facility] (DEFAULT)[address] [place] [address] Hematocrit (Bld) [Volume fraction] 43.9 % Normal 34.8-51.9 [facility] Comment on above: Performed By: #### 3 1377942, 21284294, 3300584, 51427711, 96501610, [id number] ####[facility] (DEFAULT)[address] [place] [address] 28475 Hemoglobin (Bld) [Mass/Vol] 15.4 g/dL Normal 11.8-17.7 [facility] Comment on above: Performed By: #### 3 3563348, 09244079, 8654741, 86785585, 24741999, [id number] ####[facility] (DEFAULT)[address] [place] [address] Man Diff? Auto Invalid Interpretation Code [facility] Comment on above: Performed By: #### 3 2097223, 20147609, 4194906, 88169603, 54952308, [id number] ####[facility] (DEFAULT)[address] [place] [address] 95235 MCH (RBC) [Entitic mass] 30 pg Normal 24-34 [facility] Comment on above: Performed By: #### 3 0971421, 22352512, 5328752, 38573998, 65978400, [id number] ####[facility] (DEFAULT)[address] [place] [address] 83276 MCHC (RBC) [Mass/Vol] 35 g/dL Normal 26-37 [facility] Comment on above: Performed By: #### 3 9102119, 69441565, 5139089, 61151758, 08634109, [id number] ####[facility] (DEFAULT)[address] [place] [address] 89875 MCV (RBC) [Entitic vol] 86 fL Normal 81-100 [facility] Comment on above: Performed By: #### 3 4400944, 46461480, 6528544, 27302923, 98736403, 7785817972 ####[facility] (DEFAULT)[address] [place] [address] 62854 Platelet 252 x10 Normal 138-427 [facility] Comment on above: Performed By: #### 3 5859918, 65174400, 9775099, 70170751, 71541689, [id number] ####[facility] (DEFAULT)[address] [place] [address] 40435 Platelet mean volume (Bld) [Entitic vol] 8.5 fL Normal 6.3-10.2 [facility] Comment on above: Performed By: #### 3 6328741, 25274502, 9720758, 86273185, 73447419, 7386018554 ####[facility] (DEFAULT)[address] [place] [address] RBC 5.08 x10 Normal 3.70-5.30 [facility] Comment on above: Performed By: #### 3 5895070, 89861945, 7406949, 86637989, 37605394, 2787911671 ####[facility] (DEFAULT)[address] [place] [address] 77607 WBC 6.8 x10 Normal 3.5-10.5 [facility] Comment on above: Performed By: #### 3 0032895, 47490699, 1042079, 02209241, 95343121, 0153093450 ####[facility] (DEFAULT)[address] [place] [address] 91941 Liver Enzymeson 12-31-2022 Alk Phos 62 IU/L Normal 32-91 [facility] Comment on above: Performed By: #### 3 2332815, 01763168, 1601747, 67744311, 98742938, [id number] ####[facility] (DEFAULT)[address] [place] [address] 46659 ALT [Catalytic activity/Vol] 60.0 U/L High 8.0-36.0 [facility] Comment on above: Performed By: #### 3 5100037, 71105728, 1679535, 24683948, 57766691, [id number] ####[facility] (DEFAULT)[address] [place] [address] 91914 AST [Catalytic activity/Vol] 41 U/L High 13-38 [facility] Comment on above: Performed By: #### 3 3890813, 76986266, 5023257, 32274019, 24738947, [id number] ####[facility] [facility] (DEFAULT)[address] [place] [address] Gamma glutamyl transferase [Catalytic activity/Vol] 26.0 U/L Normal 7.0-26.0 [facility] Comment on above: Performed By: #### 3 [id number], [id number], [id number] ####[facility] (DEFAULT)[address] [place] [address] Patient Handouton 12-30-2022 Patient Handout [id number] TIFF Normal [facility] DIRECTOR REGULATORY COMPLIANCE ANTIBODIESon 09-22-2022 DIRECTOR REGULATORY COMPLIANCE Antibodies 0.3 AI Normal 0.0-0.9 [facility] Comment on above: Performed By: #### R NPAB #### [facility] [address] [place] [address] Dr. Radha Owens SJOGRENS ANTIBODIES (Anti SS A/B)on 09-22-2022 Sjogren's Anti-SS-A <0.2 Normal 0.0-0.9 [facility] Comment on above: Performed By: #### S AASSAB #### [facility] [address] [place] [address] Dr. Radha Owens Sjogren's Anti-SS-B <0.2 Normal 0.0-0.9 [facility] Comment on above: Performed By: #### S AASSAB #### [facility] [address] [place] [address] Dr. Radha Owens SLE PROFILE Bon 09-22-2022 TENA Direct Negative Normal Negative [facility] Comment on above: Performed By: #### S LEPB #### [facility] [address] [place] [address] Dr. Radha Owens Anti-DNA (DS) Ab Qn 2 IU/mL Normal 0-9 [facility] Comment on above: Result Comment: Nega tive <5 Equivocal 5 - 9 Positive >9 Performed By: #### S LEPB #### [facility] [address] [address] [address] Radha Owens Antichromatin Antibodies <0.2 Normal 0.0-0.9 [facility] Comment on above: Performed By: #### S LEPB #### [facility] [address] [address] [address] Radha Owens Complement C3, Serum 161 mg/dL Normal 82-167 [facility] Comment on above: Performed By: #### S LEPB #### [facility] [address] [address] [address] Radha Owens Complement C4, Serum 23 mg/dL Normal 12-38 [facility] Comment on above: Performed By: #### S LEPB #### [facility] [address] [place] [address] Dr. Radha Owens NEWBERRY ANTIBODIESon 3 Newberry Antibodies <0.2 Normal 0.0-0.9 [facility] Comment on above: Performed By: #### S MITHAB #### [facility] [address] [address] [address] Radha Owens RHEUMATOID FACTORon 09-21-19 23 RA Latex Turbid. <10.0 Normal <14.0 [facility] Comment on above: Performed By: #### R F ####[facility] [address] [address]Dr. Radha Owens TENA by IFAon 09-18-2022 Antinuclear Antibodies, IFA Positive Abnormal [facility] Comment on above: Result Comment: Nega tive <1:80 Borderline 1:80 Positive >1:80 Performed By: #### A NAIFA #### [facility] [address] [address] [address] Radha Owens Centriole Pattern Normal [facility] Comment on above: Performed By: #### A NAIFA #### [facility] [address] [address] [address] Radha Owens Centromere Pattern Normal [facility] Comment on above: Performed By: #### A NAIFA #### [facility] [address] [address] [address] Radha Owens Homogeneous Pattern 1:320 Critically high [facility] Comment on above: Result Comment: ICAP nomenclature: AC-1 Performed By: #### A NAIFA #### [facility] [address] [place], [place] [address] Dr. Radha Owens Midbody Pattern Normal [facility] Comment on above: Performed By: #### A NAIFA #### [facility] [address] [place], [place] [address] Dr. Radha Owens Note: Comment Normal [facility] Comment on above: Result Comment: For more information about Hep-2 cell patterns use ANApatterns.org, the official website for the International Consensus on Antinuclear Antibody (TENA) Patterns (ICAP). A positive TENA result may occur in healthy individuals (low titer) or be associated with a variety of diseases. See interpretation chart which is not all inclusive: . Pattern Antigen Detected Suggested Disease Association Homogeneous DNA(ds,ss), SLE - High titers Nucleosomes, Histones Drug-induced SLE Speckled Sm, DIRECTOR REGULATORY COMPLIANCE, SCL-70, SLE,MCTD,PSS (diffuse form), SS-A/SS-B Sjogrens Nucleolar SCL-70, PM-1/SCL High titers Scleroderma, PM/DM Centromere Centromere PSS (limited form) w/Crest syndrome variable Nuclear Dot [id number] Primary Biliary Cirrhosis Nuclear GP210, Primary Biliary Cirrhosis Membrane subhash A,B,C Performed By: #### A NAIFA #### [facility] [address] [place] [address] Dr. Radha Owens Nuclear Dot Pattern Normal [facility] Comment on above: Performed By: #### A NAIFA #### [facility] [address] [place] [address] Dr. Radha Owens Nuclear Membrane Pattern Normal [facility] Comment on above: Performed By: #### A NAIFA #### [facility] [address] [place] [address] Dr. Radha Owens Nucleolar Pattern Normal [facility] Comment on above: Performed By: #### A NAIFA #### [facility] [address] [place] [address] Dr. Radha Owens PCNA Pattern Normal [facility] Comment on above: Performed By: #### A NAIFA #### [facility] [address] [address] [address] Radha Owens Speckled Pattern Normal [facility] Comment on above: Performed By: #### A NAIFA #### [facility] [address] [place] [address] Dr. Radha Owens Spindle Apparatus Pattern Normal [facility] Comment on above: Performed By: #### A NAIFA #### [facility] [address] [address] [address] Radha Owens RHEUMATOID FACTORon 09-17-19 RA Latex Turbid. <10.0 Normal <14.0 [facility] Comment on above: Performed By: #### R F ####[facility] [address] [address]Dr. Radha Owens CBC AUTO DIFFon 09-15-2022 BASO # 0.0 103/ul Normal 0.0-0.1 [facility] Comment on above: Performed By: #### C BC #### [facility] [address] [place] [address] Dr. Radha Owens Basophils/100 WBC (Bld) 0.6 % Normal 0.2-2.0 [facility] Comment on above: Performed By: #### C BC #### [facility] [address] [place] [address] Dr. Radha Owens EO # 0.1 103/ul Normal 0.0-0.7 [facility] Comment on above: Performed By: #### C BC #### [facility] [address] [place] [address] Dr. Radha Owens Eosinophils/100 WBC (Bld) 1.8 % Normal 0.9-7.0 [facility] Comment on above: Performed By: #### C BC #### [facility] [address] [place] [address] Dr. Radha Owens Erythrocyte distribution width (RBC) [Ratio] 12.3 % Normal 11.0-15.0 [facility] Comment on above: Performed By: #### C BC #### [facility] [address] [place] [address] Dr. Radha Owens Hematocrit (Bld) [Volume fraction] 42.2 % Normal 42.0-54.0 [facility] Comment on above: Performed By: #### C BC #### [facility] [address] [place] [address] Dr. aRdha Owens Hemoglobin (Bld) [Mass/Vol] 14.3 g/dL Normal 14.0-18.0 [facility] Comment on above: Performed By: #### C BC #### [facility] [address] [place] [address] Dr. Radha Owens IG # 0.02 10e3/ul Normal 0.00-0.03 [facility] Comment on above: Performed By: #### C BC #### [facility] [address] [place] [address] Dr. Radha Owens IG % 0.3 % Normal 0.0-0.5 [facility] Comment on above: Performed By: #### C BC #### [facility] [address] [place] [address] Dr. Radha Owens LYMPH # 1.8 103/ul Normal 1.2-3.8 [facility] Comment on above: Performed By: #### C BC #### [facility] [address] [place] [address] Dr. Radha Owens Lymphocytes/100 WBC (Bld) 27.8 % Normal 20.5-60.0 [facility] Comment on above: Performed By: #### C BC #### [facility] [address] [place] [address] Dr. Radha Owens MANUAL DIFF REQ NO Normal [facility] Comment on above: Performed By: #### C BC #### [facility] [address] [place] [address] Dr. Radha Owens MCH (RBC) [Entitic mass] 29.8 pg Normal 25.9-34.0 [facility] Comment on above: Performed By: #### C BC #### [facility] [address] [place] [address] Dr. Radha Owens MCHC (RBC) [Mass/Vol] 33.9 g/dL Normal 29.9-35.2 [facility] Comment on above: Performed By: #### C BC #### [facility] [address] [place] [address] Dr. Radha Owens MCV (RBC) [Entitic vol] 87.9 fL Normal 80.0-94.0 [facility] Comment on above: Performed By: #### C BC #### [facility] [address] [place] [address] Dr. Radha Owens MONO # 0.7 103/ul Normal 0.3-0.8 [facility] Comment on above: Performed By: #### C BC #### [facility] [address] [place] [address] Dr. Radha Owens Monocytes/100 WBC (Bld) 11.3 % Normal 1.7-12.0 [facility] Comment on above: Performed By: #### C BC #### [facility] [address] [place] [address] Dr. Radha Owens NEUT # 3.8 103/ul Normal 1.4-6.5 [facility] Comment on above: Performed By: #### C BC #### [facility] [address] [place] [address] Dr. Radha Owens Neutrophils/100 WBC (Bld) 58.2 % Normal 43.0-75.0 [facility] Comment on above: Performed By: #### C BC #### [facility] [address] [place] [address] Dr. Radha Owens Platelet mean volume (Bld) [Entitic vol] 10.4 fL Normal 9.5-13.5 [facility] Comment on above: Performed By: #### C BC #### [facility] [address] [place] [address] Dr. Radha Owens PLT 235 103/ul Normal 150-450 [facility] Comment on above: Performed By: #### C BC #### [facility] [address] [place] [address] Dr. Radha Owens RBC 4.80 106/ul Normal 4.70-6.10 [facility] Comment on above: Performed By: #### C BC #### [facility] [address] [place] [address] Dr. Radha Owens WBC 6.5 103/ul Normal 4.0-11.0 [facility] Comment on above: Performed By: #### C BC #### [facility] [address] [place] [address] Dr. Radha Owens PROF 14(COMP METB)on 023 Albumin [Mass/Vol] 3.9 g/dL Normal 3.4-5.0 [facility] Comment on above: Performed By: #### C MP, URIC #### [facility] [address] [place] [address] Dr. Radha Owens Albumin/Globulin [Mass ratio] 1.0 {ratio} Normal [facility] Comment on above: Performed By: #### C MP, URIC #### [facility] [address] [place] [address] Dr. Radha Owens ALP [Catalytic activity/Vol] 73 U/L Normal 46-116 [facility] Comment on above: Performed By: #### C MP, URIC #### [facility] [address] [place] [address] Dr. Radha Owens ALT [Catalytic activity/Vol] 66 U/L Critically high 16-63 [facility] Comment on above: Performed By: #### C MP, URIC #### [facility] [address] [place] [address] Dr. Radha Owens Anion gap [Moles/Vol] 13.2 mmol/L Normal [facility] Comment on above: Performed By: #### C MP, URIC #### [facility] [address] [place] [address] Dr. Radha Owens AST [Catalytic activity/Vol] 31 U/L Normal 15-37 [facility] Comment on above: Performed By: #### C MP, URIC #### [facility] [address] [place] [address] Dr. Radha Owens Bilirubin [Mass/Vol] 0.8 mg/dL Normal 0.2-1.0 [facility] Comment on above: Performed By: #### C MP, URIC #### [facility] [address] [place] [address] Dr. Radha Owens Calcium [Mass/Vol] 9.2 mg/dL Normal 8.5-10.1 [facility] Comment on above: Performed By: #### C MP, URIC #### [facility] [address] [place] [address] Dr. Radha Owens Chloride [Moles/Vol] 107 mmol/L Normal 98-107 [facility] Comment on above: Performed By: #### C MP, URIC #### [facility] [address] [place] [address] Dr. Radha Owens CO2 [Moles/Vol] 26.0 mmol/L Normal 21.0-32.0 [facility] Comment on above: Performed By: #### C MP, URIC #### [facility] [address] [place] [address] Dr. Radha Owens Creatinine [Mass/Vol] 0.89 mg/dL Normal 0.70-1.30 [facility] Comment on above: Performed By: #### C MP, URIC #### [facility] [address] [place] [address] Dr. Radha Owens EGFR-AF ISRAELI >60 Normal >=60 [facility] Comment on above: Performed By: #### C MP, URIC #### [facility] [address] [place] [address] Dr. Radha Owens EGFR-NON AF ISRAELI >60 Normal >=60 [facility] Comment on above: Performed By: #### C MP, URIC #### [facility] [address] [place] [address] Dr. Radha Owens Globulin (S) [Mass/Vol] 4.1 g/dL Normal [facility] Comment on above: Performed By: #### C MP, URIC #### [facility] [address] [place] [address] Dr. Radha Owens Glucose [Mass/Vol] 99 mg/dL Normal 74-106 [facility] Comment on above: Performed By: #### C MP, URIC #### [facility] [address] [place] [address] Dr. Radha Owens Potassium [Moles/Vol] 4.2 mmol/L Normal 3.5-5.1 [facility] Comment on above: Performed By: #### C MP, URIC #### [facility] [address] [place] [address] Dr. Radha Owens Protein [Mass/Vol] 8.0 g/dL Normal 6.4-8.2 [facility] Comment on above: Performed By: #### C MP, URIC #### [facility] [address] [place] [address] Dr. Radha Owens Sodium [Moles/Vol] 142 mmol/L Normal 136-145 [facility] Comment on above: Performed By: #### C MP, URIC #### [facility] [address] [place] [address] Dr. Radha Owens Urea nitrogen [Mass/Vol] 13.0 mg/dL Normal 6.4-19.3 [facility] Comment on above: Performed By: #### C MP, URIC #### [facility] [address] [place] [address] Dr. Radha Owens Urea nitrogen/Creatinine [Mass ratio] 14.6 mg/mg Normal [facility] Comment on above: Performed By: #### C MP, URIC #### [facility] [address] [place] [address] Dr. Radha Owens SED RATE WESTERGRENon 2022 SED RATE 12 mm/hr Normal <=15 [facility] Comment on above: Performed By: #### S EDR #### [facility] [address] [place] [address] Dr. Radha Owens URIC ACID SERUMon 09-15-2022 Urate [Mass/Vol] 5.9 mg/dL Normal 3.5-7.2 [facility] Comment on above: Performed By: #### C MP, URIC #### [facility] [address] [place] [address] Dr. Radha Owens US CLIF DOP LEG RTon 07-03-19 23 US CLIF DOP LEG RT EXAMINATION: US CLIF DOP LEG RT HISTORY: Pain of right calf COMPARISON: No relevant comparison available. FINDINGS: REGION: Right lower extremity THROMBI: None. COMPRESSIBILITY: Normal compressibility. FLOW: Normal waveform and antegrade flow between 5 and 20 cm/s. OTHER: None. IMPRESSION: 1. No deep vein thrombus within the right lower extremity. Electronically authenticated by: SNAJAY ROJAS Date: 2022-07-03 17:14 Normal [facility] COVID Quick Testingon 2021 Result Negative [employer] Other MRI Knee w/o Righton MRI Knee w/o Right HISTORY: Fall with k nee pain. Popping sensation. Anterior knee pain. TECHNIQUE: Routine non-contrast MRI of the right knee. Unable to use dedicated knee coil, a body array coil used. Patient had difficulty holding still. Best images submitted. COMPARISON: None RESULT: Some limitations due to motion and inability to use dedicated knee coil. Within these limits: MENISCI: Medial Meniscus: Intact Lateral Meniscus: Intact LIGAMENTS: ACL, PCL, MCL, LCL Complex: Intact CARTILAGE: Within normal limits. TENDONS: Distal quadriceps intact. Patellar tendon intact. Popliteus tendon intact. BONES AND MARROW: No evidence of fracture or bone marrow replacing process. Benign small fibrous cortical defect within the posterior distal femur. MUSCLES: Muscle bulk and signal intensity are normal. JOINT FLUID AND SYNOVIUM: No joint effusion. No synovitis. No Conti's cyst. OTHER: Subcutaneous edema anteriorly. IMPRESSION: Intact menisci and ligaments. 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 TECHNIQUE: Right knee x-ray: 2 view(s). FINDINGS: Bones are normal density. No fracture, no bone destruction. Small knee effusion noted. Subcutaneous edema is seen. IMPRESSION: 1. No acute traumatic osseous pathology 2. Subcutaneous edema, possible small knee effusion Normal [facility] XR ANKLE 3 VIEWS - LEFTon XR ANKLE 3 VIEWS - LEFT REASON FOR EXAM: left ankle pain one month, hurt jumping for basketball ;PainTECHNIQUE: XR ANKLE 3 VIEWS - LEFTCOMPARISON: None.FINDINGS:DISTAL TIBIA and FIBULA: No fracture visualized. There is an eccentricslightly expansile lytic lesion with sclerotic margins at the lateraldiaphysis of the tibia, partially ossified superiorly. This extendsapproximately 5.7 cm craniocaudal, with transverse dimension of 1.8 cm x 2 cm. No periosteal new bone is noted.TALAR DOME and 5th METATARSAL: Normal.SOFT TISSUES: Normal. No radio-opaque foreign body.ANKLE JOINT EFFUSION: None.IMPRESSION:No fracture visualized. 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 There is no periosteal reaction identified.Interpreted by:Kandice Noriega MDSigned by: Kandice Noriega MD on 12/25/2017 2:18 PM Normal [facility] [place] Vital Signs Date Time Vital Sign Value Performing Clinician Facility 07-21-2023 09:16-0400 Body height 182.9 cm Magalie Shendge V, PA Work Phone: [facility] 07-21-2023 09:16-0400 Body mass index (BMI) [Ratio] 55.2 kg/m2 Magalie Shendge V, PA Work Phone: [facility] 07-21-2023 09:16-0400 Body weight 184.61 kg Magalie Shendge V, PA Work Phone: [facility] 07-21-2023 09:16-0400 Heart rate 85 /min Magalie Shendge V, PA Work Phone: [facility] 07-21-2023 09:16-0400 Respiratory rate 16 /min Magalie Shendge V, PA Work Phone: [facility] 05-26-2023 14:15-0500 Body height 185.42 cm Im [employer] Other [employer] Other 05-26-2023 14:15-0500 Body mass index (BMI) [Ratio] 51.45 kg/m2 Imad Asaad Other [employer] Other 05-26-2023 14:15-0500 Body weight 176.9 kg Imad Asaad Other [employer] Other 04-21-2023 13:45-0500 Body height 185.42 cm Imad Asaad Other [employer] Other 04-21-2023 13:45-0500 Body mass index (BMI) [Ratio] 51.84 kg/m2 Imad Asaad Other [employer] Other 04-21-2023 13:45-0500 Body weight 178.26 kg Imad Asaad Other [employer] Other 04-21-2023 13:45-0500 Diastolic blood pressure 82 mm[Hg] Imad Asaad Other [employer] Other 04-21-2023 13:45-0500 Systolic blood pressure 147 mm[Hg] Imad Asaad Other [employer] Other 03-19-2023 13:00-0500 Body height 185.42 cm Imad Asaad Other [employer] Other 03-19-2023 13:00-0500 Body mass index (BMI) [Ratio] 51.87 kg/m2 Imad Asaad Other [employer] Other 03-19-2023 13:00-0500 Body weight 178.36 kg Imad Asaad Other [employer] Other 03-19-2023 13:00-0500 Diastolic blood pressure 68 mm[Hg] Imad Asaad Other [employer] Other 03-19-2023 13:00-0500 Systolic blood pressure 76 mm[Hg] Imad Asaad Other [employer] Other 02-04-2022 10:55-0400 Body height 179.07 cm Devika King Other [employer] Other 02-04-2022 10:55-0400 Body mass index (BMI) [Ratio] 44.55 kg/m2 Devika King Other [employer] Other 02-04-2022 10:55-0400 Body temperature 97.5 [degF] Devika King Other [employer] Other 02-04-2022 10:55-0400 Body weight 142.88 kg Devika King Other [employer] Other 02-04-2022 10:55-0400 Respiratory rate 18 /min Devika King Other [employer] Other 02-04-2022 10:55-0400 SaO2% (BldA) [Mass fraction] 97 % Devika King Other [employer] Other Encounters Encounter Date Encounter Type Care Provider Facility Start: 07-21-2023 End: 07-22-2023 ambulatory MAGALIE SHENDGE V [facility] Start: 07-21-2023 End: 07-21-2023 ambulatory MAGALIE SHENDGE V [facility] Start: 07-21-2023 End: 07-21-2023 Office outpatient new 30 minutes Magalie COFFEY Work Phone: [facility] Comment on above: Positive TENA (antinu clear antibody) (Primary Dx); Chronic fatigue; Pain in both hands; Bilateral carpal tunnel syndrome Start: 06-30-2023 End: 07-01-2023 Emergency department patient visit SANJAY Nigel [facility] Start: 05-26-2023 End: 05-26-2023 ambulatory Imad Asaad Other [employer] Other Start: 05-26-2023 Office outpatient visit 25 minutes Imad Asaad [facility] Start: 05-19-2023 End: 05-19-2023 ambulatory Baljit House Facility:[facility] Start: 05-19-2023 End: 05-19-2023 ambulatory DO Baljit House Work Phone: [facility] Work Phone: Start: 05-19-2023 End: 05-19-2023 Patient encounter procedure DO Baljit House Work Phone: [facility] [address] Work Phone: Start: 04-29-2023 End: 04-30-2023 ambulatory BALJIT P HOUSE Facility:[facility] Start: 04-27-2023 End: 04-27-2023 ambulatory Imad Asaad Other [facility] [employer] Other Start: 04-27-2023 Telephone encounter Imad Asaad [facility] Start: 04-21-2023 End: 04-21-2023 ambulatory Baljit House Facility:[facility] Start: 04-21-2023 End: 04-21-2023 Patient encounter procedure DO Baljit House Work Phone: [facility] [address] [place] Work Phone: Start: 04-21-2023 End: 04-21-2023 ambulatory DO Baljit House Work Phone: [facility] Work Phone: Start: 04-21-2023 Office outpatient ne w 45 minutes Imad Asaad [facility] Start: 04-07-2023 End: 04-08-2023 ambulatory BALJIT P HOUSE Facility:[facility] Start: 04-01-2023 End: 04-01-2023 ambulatory Imad Asaad Facility:[facility] Start: 04-01-2023 End: 04-01-2023 ambulatory DO Baljit House Work Phone: [facility] Work Phone: Start: 04-01-2023 End: 04-01-2023 Patient encounter procedure DO Baljit House Work Phone: [facility] Work Phone: Start: 03-23-2023 End: 03-23-2023 ambulatory Imad Asaad Other [employer] Other Start: 03-23-2023 Telephone encounter Imad Asaad [facility] Start: 03-19-2023 Office outpatient ne w 45 minutes Imad Asaad [facility] Start: 03-19-2023 End: 03-19-2023 ambulatory DO Baljit House Work Phone: [employer] Other Start: 03-19-2023 End: 03-19-2023 Patient encounter procedure DO Baljit House Work Phone: [facility] [place] Work Phone: Start: 02-12-2023 End: 02-13-2023 ambulatory BALJIT P HOUSE Facility:[facility] Start: 01-28-2023 End: 01-29-2023 ambulatory BALJIT P HOUSE Facility:[facility] Start: 01-09-2023 End: 01-10-2023 ambulatory BALJIT P HOUSE Facility[facility] Start: 01-07-2023 End: 08-31-2023 ambulatory BALJIT P HOUSE Facility[facility] Start: 12-31-2022 End: 01-01-2023 ambulatory BALJIT PISANO Facility:[facility] Start: 12-30-2022 End: 12-31-2022 ambulatory Rafita Stover MD Facility:[facility] Start: 09-19-2022 End: 09-20-[address] BALJIT PISANO Facility:[facility] Start: 09-15-2022 End: 09-16-[address] BALJIT PISANO Facility:[facility] Start: 07-03-2022 End: 07-04-[address] BALJIT PISANO Facility:[facility] Start: 02-04-2022 End: 02-04-2022 ambulatory Devika King Other [facility] Other Start: 02-04-2022 Office outpatient ne w 30 minutes Devika King [facility] Start: 12-25-2017 End: 12-26-2017 Patient encounter BALJIT PISANO [facility] Procedures Date Procedure Procedure Detail Performing Clinician Start: 05-19-2023 Radiography of thora cic spine DO Baljit Pisano Work Phone: Start: 05-19-2023 X-ray of both knees DO Baljit SendMe Work Phone: Start: 04-01-2023 Ultrasound elastogra phy of liver DO Baljit Pisano Work Phone: Plan of Treatment Date Care Activity Detail Author Start: 01-03-2026 DTaP,Tdap and Td Vaccines (7 - Td or Tdap) DTaP,Tdap and Td Vaccines (7 - Td or Tdap) [facility] Start: 07-20-2024 Adult BMI Screening Adult BMI Screen ing [facility] Start: 07-20-2024 Tobacco Screening Tobacco Screening [facility] Start: 10-22-2023 End: 10-22-2023 Telemedicine consultation with patient 10/22/2023 9:30 AM EDT Telemedicine [facility] [address] [place] [phone] [place] [address] [place] [phone] [facility] Start: 07-21-2023 End: 07-20-2024 EMG EMG Neurology Routine Pain in both hands Bilateral carpal tunnel syndrome Expected: 07/21/2023 (Approximate), Expires: 07/20/2024 [facility] Work Phone: Comment on above: Expected: 07/21/2023 (Approximate), Expires: 07/20/2024 Start: 07-21-2023 End: 07-20-2024 XR Bones Limited Survey Views [facility]ICA [facility] Comment on above: Expected: 07/21/2023 , Expires: 07/20/2024 Start: 05-19-2023 Hemolytic complement CH50 level [facility] Start: 05-19-2023 DIRECTOR REGULATORY COMPLIANCE antibody measurement [facility] Start: 05-19-2023 [facility] Start: 04-01-2023 [facility] Start: 01-09-2023 Influenza vaccination Influenza Vacc ine [facility] Start: 07-11-2021 Adult BMI Follow Up Plan Adult BMI Follow Up Plan [facility] Start: 2015 Depression Screening Depression Scre ening [facility] Actin smooth muscle IgG Ab [Units/volume] in Serum [facility] Alpha 1 antitrypsin [Mass/volume] in Serum or Plasma [facility] Alpha 1 antitrypsin phenotyping [Identifier] in Serum or Plasma by Immunofixation [facility] Ceruloplasmin [Mass/volume] in Serum or Plasma [facility] Fibrillarin Ab [Presence] in Serum [facility] Hepatitis A virus antibody, IgM type [facility] Hepatitis B core antibody measurement [facility] Hepatitis B core antibody measurement, IgM type [facility] Hepatitis B virus DN A [#/volume] (viral load) in Serum or Plasma by GITA with probe detection [facility] Hepatitis B virus DN A [log units/volume] (viral load) in Serum or Plasma by GITA with probe detection [facility] Hepatitis B virus DN A [Units/volume] (viral load) in Serum or Plasma by GITA with probe detection [facility] Hepatitis B virus surface Ab [Presence] in Serum [facility] Hepatitis B virus surface Ab [Units/volume] in Serum [facility] Hepatitis B virus surface Ag [Presence] in Serum or Plasma by Immunoassay [facility] Hepatitis C virus Ig G Ab [Presence] in Serum or Plasma by Immunoassay [facility] HFE gene mutations f ound [Identifier] in Blood or Tissue by Molecular genetics method Nominal [facility] Homogenous nuclear A b pattern [Titer] in Serum [facility] IgG [Mass/volume] in Serum or Plasma [facility] Lipoprotein a [Moles/volume] in Serum or Plasma [facility] Mitochondria M2 IgG Ab [Units/volume] in Serum [facility] Nuclear Ab [Titer] i n Serum [facility] PM-SCL extractable nuclear Ab [Mass/volume] in Serum by Immune diffusion (ID) [facility] RNA polymerase III I gG Ab [Units/volume] in Serum or Plasma by Immunoassay [facility] Th-To Ab [Units/volu me] in Serum by Line blot [facility] Payers Date Payer Category Payer Self-pay [id number] 12-31-2022 [employer] ( [employer] others) [id number] 12-31-2022 [employer] ( and others) [id number] 05-11-2017 [employer] ( and others) [id number] 05-11-2017 [employer] ( and others) [facility] [id number] 05/11/2017-Present [phone] [address] [place] [address] [id number]. [id number] 11-25-2012 [employer] ( and others) [id number] 2003 Unknown [id number] 2.16.840.1.618530.3.579.2. 593 2003 Unknown [id number] 2.16.840.1.628460.3.579.2. 593 2003 Unknown [id number] 2.16.840.1.668013.3.579.2. 593 2003 Unknown [id number] 2.16.840.1.012242.3.579.2. 718 2003 Unknown [id number] 2.16.840.1.953055.3.579.2. 718 2003 Unknown [id number] 2.16.840.1.296700.3.579.2. 718 2003 Unknown [id number] 2.16.840.1.123486.3.579.2. 718 2003 Unknown [id number] 2.16.840.1.408272.3.579.2. 718 2003 Unknown [id number] 2.16.840.1.158382.3.579.2. 718 2003 Unknown [id number] 2.16.840.1.336999.3.579.2. 718 2003 Unknown [id number] 2.16.840.1.420856.3.579.2. 718 2003 Unknown [id number] 2.16.840.1.846923.3.579.2. 718 2003 Unknown [id number] 2.16.840.1.357313.3.579.2. 1286 2003 Unknown [id number] 2.16.840.1.557961.3.579.2. 1286 2003 Unknown [id number] 2.16.840.1.754772.3.579.2. 1286 2003 Unknown [id number] 2.16.840.1.173790.3.579.2. 1286 05-11-1961 [employer] ( and others) [id number] 05-11-1961 [employer] ( and others) [id number] Unknown [id number] 2.16.840.1.620446.3.579.2. 531 Unknown [id number] 2.16.840.1.300577.3.579.2. 531 Unknown [id number] 2.16.840.1.761126.3.579.2. 531 Unknown [id number] 2.16.840.1.882226.3.579.2. 531 Social History Date Type Detail Facility Unknown if ever smoked [facility] [employer] Other Start: 06-21-2020 End: 07-21-2023 Sex Assigned At [facility] yste Start: 2003 Sex Assigned At Male F [facility] Start: 02-20-2022 Tobacco smoking stat [facility] Never smoked tobacco [facility] Start: 02-20-2022 Tobacco use and exposure Smokeless tobacco non-user [facility] Start: 07-21-2023 Alcohol intake Ex-drinker (finding) [facility] Start: 06-21-2020 End: 07-21-2023 History of Social function [facility] Childcare Unknown [facility] Start: 2003 Sex Assigned At Not on file P [facility] Goals Date Patient Goal Desired Activity /State Clinical Notes 02-04-2022 to 07-21-2023 ERLINDA Cooper - 07/21/2023 9:30 AM EDT Note Date & Type Note Facility 07-21-2023 History of Present illness Narrative Images from the original note were not included. [address] [phone] Date of Service: 07/21/2023 Thank you for the referral to evaluate Ta Duncan for Pain in unspecified joint and fatigue .. This is a new patient and is seen at the request of BALJIT PISANO DO. Chief Complaint: Widespread pain SUBJECTIVE: Ta Duncan is a 18 y.o. male who presents today for evaluation of Pain in unspecified joint and fatigue . 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 Denies hand stiffness, experiences some in ankles and knees Previous medications/treatment Tizanidine-- made him feel weird Ibuprofen- helped a littlebit H/o psoriasis:no Family history of psoriasis/gout/autoimmune ds:maternal GM: RA lupus Current Outpatient Medications Medication Sig Dispense Refill bismuth subsalicylate (PEPTO BISMOL) 262 mg/15 mL suspension Take 15 mL by mouth every 6 (six) hours as needed for indigestion. 360 mL 0 famotidine (PEPCID) 20 mg tablet Take 1 tablet (20 mg total) by mouth in the morning and 1 tablet (20 mg total) before bedtime. 20 tablet 0 ibuprofen (MOTRIN) 600 mg tablet Take 1 tablet (600 mg total) by mouth every 8 (eight) hours as needed for pain. 12 tablet 0 ondansetron ODT (ZOFRAN ODT) 4 mg disintegrating tablet Dissolve 1 tablet (4 mg total) on tongue every 8 (eight) hours as needed for nausea for up to 10 doses. 10 tablet 0 tiZANidine (ZANAFLEX) 2 mg tablet Take 1 tablet (2 mg total) by mouth every 6 (six) hours as needed for muscle spasms. 12 tablet 0 meloxicam (MOBIC) 15 mg tablet Take one tablet in the morning with food 30 tablet 2 No current facility-administered medications for this visit. reviewed. Patient Active Problem List Diagnosis Acute appendicitis reviewed. Past Surgical History: Procedure Laterality Date LAPAROSCOPIC APPENDECTOMY N/A 02/20/2022 Performed by Dean Atkins DO at [facility] reviewed. Social History Tobacco Use Smoking status: Never Smokeless tobacco: Never Vaping Use Vaping Use: Never used Substance Use Topics Alcohol use: Not Currently Drug use: Never reviewed. Past Medical History: Diagnosis Date Anxiety Bipolar disorder ([facility]) Depression Fractures Mood disorder ([facility]) reviewed. Social History Social History Narrative Not on file reviewed Family History Problem Relation Age of Onset Heart disease Maternal Grandmother Cancer Maternal great-grandfather Lung cancer Maternal great-grandfather reviewed. Allergies Allergen Reactions Penicillins Hives reviewed. The following portions of the patient's history were reviewed and updated as appropriate: allergies, current medications, past family history, past medical history, past social history, past surgical history and problem list. REVIEW OF SYSTEMS: CONSTITUTIONAL: Admits: [] Weight Loss [] Fever [x] Frequent Night Sweats [x]Fatigue: / OPHTHALMOLOGIC: Admits: [] Glaucoma [] History or Current Inflammatory Eye Disease [] Cataracts ENT: Admits: [] Oral/Nasal Ulcers [] epistaxis [] Recurrent Sinusitis [] Dry Eyes [] Dry mouth CARDIOVASCULAR: Admits: [x] Chest pain: went to ER [place], did EKG, concluded as a muscle cramp [] Pericarditis/Pleuritis [] Palpitations [] Edema RESPIRATORY: Admits: [] hemoptysis [x] Dyspnea on Exertion [] Cough [] Wheezing GASTROINTESTINAL: Admits: [] Bloody Stool [x] Diarrhea [] Vomiting[x]Constipation GENITOURINARY: Admits: [] Blood in urine [] Genital Ulcers [] Burning/pain with urination MUSCULOSKELETAL: Admits: [] Muscle Pain [x] Joint Pain INTEGUMENTARY: Admits: [x] Skin changes: striae [] Sclerodactyly [] Raynauds [] Photosensitivity [] Alopecia NEUROLOGIC: Admits: [x] Recurrent Headaches [] Limb Weakness [x] Numbness/Tingling: fingers PSYCHIATRIC: Admits: [x] Insomnia [] Depression [x] Anxiety ENDOCRINE: Admits: [] Thyroid abnormalities HEMATOLOGY/LYMPH: Admits: [] Notable Swollen Lymph Nodes [] History of Cytopenias [] Bruising tendency [] History of DVT/PE All non checked boxes, patient denies. All other 10 point ROS reviewed and negative. PHYSICAL EXAMINATION: Constitutional: Pulse 85 Resp 16 Ht 182.9 cm (6') Wt (!) 184.6 kg (407 lb) BMI 55.20 kg/m : reviewed Comfortable, pleasant, no acute distress Eyes: Conjunctiva clear and moist, eyelids without lesions. Extraocular movements fully intact. Ears/Nose/Mouth/Throat: External inspection of ears/nose is normal - no scars, lesions, masses No oral ulcers or lesions on mucosa of inner mouth, tongue. Neck: Symmetrical, tongue midline, no masses, no lymphadenopathy, no thyromegaly Respiratory: Inspiratory and expiratory effort normal. Clear to auscultation bilaterally. No crackles or wheezes. Cardiovascular: Palpation of heart reveals normal PMI. Auscultation: regular rate rhythm, no murmurs/rubs/gallops. Carotid arteries symmetric and 2+. No edema of extremities Gastrointestinal: Soft, nontender, bowel sounds in all quadrants. No hepatosplenomegaly on palpation. Lymphatic: No lymphadenopathy in neck Neurologic: Facial muscles symmetric and of normal strength. Tongue is midline. Dermatologic: Inspection and palpation of skin and subcutaneous tissue of all four extremities without rashes Nailfold capillary exam normal Psychiatric: Normal affect. Judgement/insight intact. Musculoskeletal: b/l tender trigger points Neck: Full ROM. no swelling, No tenderness, Shoulder: Bilateral full active ROM. no swelling, No tenderness, Elbows: Full ROM. no swelling, No tenderness, Wrists: Full ROM. no swelling, No tenderness, Hands: Full ROM. no swelling, No tenderness, Hips: Normal ROM. No swelling, No tenderness, Knees: Normal ROM, no swelling, No tenderness, Feet: Full ROM. no swelling, No tenderness, Ankles: Normal ROM,no swelling, No tenderness, Spine: no tenderness throughout spine, no sacroiliac joint tenderness Physical Exam Labs & Imaging: Labs and Imaging reviewed and discussed with the patient during the visit. No results found for: RF , C3 , C4 Lab Results Component Value Date WBC 4.7 06/30/2023 HGB 14.3 06/30/2023 HCT 41.2 06/30/2023 MCV 86 06/30/2023 PLT 236 06/30/2023 Lab Results Component Value Date CREATININE 0.83 06/30/2023 BUN 10 06/30/2023 K 3.7 06/30/2023 CL 104 06/30/2023 CO2 24 06/30/2023 Lab Results Component Value Date ALT 69 (H) 12/26/2022 AST 44 (H) 12/26/2022 ALKPHOS 111 10/13/2019 ALT on 05/19/2023 was very mildly elevated at 56 but improved from December 2022, CBC was normal kidney function is normal CK was normal urine exam was normal DIRECTOR REGULATORY COMPLIANCE, anti Newberry antibody, scleroderma 70 antibody, complement C3-C4, centromere antibodies, p.m. Scl antibody, mahesh p.m. Scl antibody, anti dsDNA antibody, U3 DIRECTOR REGULATORY COMPLIANCE were all negative/ normal THC you antibody, RNA polymerase antibody were negative complement total was normal X-ray chest 2 views Result Date: 06/30/2023 Narrative: XR CHEST 2 VWS INDICATION: right sided chest pain. Chest pain FINDINGS: Cardiac silhouette is normal in size. Trachea midline. No focal pulmonary consolidation. No pleural effusion. No pneumothorax. IMPRESSION: 1. No acute findings. Finalized by Dwaine Sharpe MD on 06/30/2023 5:11 AM ASSESSMENT/PLAN: Ta Duncan is a 18 y.o. male patient presents for evaluation of Pain in unspecified joint and fatigue Patient established care with pa on 07/21/2023 Follow up in 3 months ICD-10-CM 1. Positive TENA (antinuclear antibody) R76.8 2. Chronic fatigue R53.82 3. Pain in both hands M79.641 M79.642 4. Bilateral carpal tunnel syndrome G56.03 Orders Placed This Encounter Procedures X-ray osseous survey limited Standing Status: Future Number of Occurrences: 1 Standing Expiration Date: 07/20/2024 Order Specific Question: Reason for Exam: Answer: hand pain Order Specific Question: Release to patient via MyChart? Answer: Immediate [1] EMG Standing Status: Future Standing Expiration Date: 07/20/2024 Order Specific Question: Reason for Exam: Answer: hand paraestehsia Order Specific Question: Release to patient via MyChart? Answer: Immediate [1] Overall impression and plan Patient had positive TENA at 1:160, done at an external lab. Patient denies frequent ulcers in nose or mouth, patchy hair loss, malar rash, photosensitivity, history of cytopenias, history of DVT/PE, blood in the urine or stool, joint swelling, joint stiffness in hands. He did not have any evidence of synovitis on examination the likelihood inflammatory arthritis/systemic autoimmune condition is low at this time I also explained to him that a titer of 1 in 160s considered a low titer and can be seen nonspecifically. If his symptoms were to change in future me may consider additional lab tests specific to exclude lupus He does describe widespread pain, chronic severe fatigue, chronic sleep disturbances, cognitive disturbances, paresthesia, had bilateral tender trigger points. I explained to patient that these symptoms are suggestive of fibromyalgia. Patient admitted that his mother also has fibromyalgia and he is familiar with what it is. I explained to him that I would like to exclude neuropathy by conducting EMG at this time. I will monitor his symptoms and would like to exclude any systemic autoimmune conditions/inflammatory arthritis should his symptoms change by ordering additional labs. He has tried tizanidine in the past and did not tolerate it well I would like to give meloxicam at this time Get EMG done Patient has class 3 obesity and would like him to work on weight loss, counseled him extensively on weight loss and lifestyle modification Consider gabapentin, Flexeril, Cymbalta, literature provided. Literature also provided on fibromyalgia He does report significant hand pain, hand x-rays today Exclude bilateral carpal tunnel syndrome, advised him to use wrist brace at bedtime, Voltaren gel Consider occupational therapy Consider hand surgery referral after EMG Follow-up in 3 months or sooner if symptoms change Total time spent with the patient face to face was 40 minutes which included obtaining and reviewing history, performing an exam, educating and counseling the patient, communicating test results to the patient. Preparing to see the patient (reviewing all results, history, medications, my office notes, other physician notes), ordering tests/medications/referrals, documenting in the patient's health record time spent was 10 minutes This note was created with the assistance of a speech recognition program. While intending to generate a timely document that accurately reflects the content of the visit, no guarantee can be provided that every grammatical or spelling mistake has been or will be identified or corrected. Thank you for your understanding. [facility] Magalie Cox PA-C [address] [place] [address] Office [phone] ERLINDA Cooper 07/21/23 2284 ERLINDA Cooper 07/21/23 0211 documented in this encounter [facility] 05-26-2023 Evaluation note Encounter Date Diagnosis Assessment Notes May, Elevated LFTs (ICD-10 - R79.89) The liver studies are all within normal limits. May, Fatty liver (ICD-10 - K76.0) Plan for repeat fibroscan in one year for routine surveillance. [facility] Other 12-12-2023 Evaluation note* Encounter Date Diagnosis Assessment Notes Treatment Notes Treatment Clinical Notes Apr, Fatty liver (ICD-10 - K76.0) Apr, Elevated LFTs (ICD-10 - R79.89) Apr, Hepatitis A test positive (ICD-10 - B15.9) Apr, Fatigue, unspecified type (ICD-10 - R53.83) [facility] Other 11-09-2023 Evaluation note* Encounter Date Diagnosis Assessment Notes Treatment Notes Treatment Clinical Notes Mar, Hepatitis A test positive (ICD-10 - B15.9) f/u after testing Mar, Elevated LFTs (ICD-10 - R79.89) Mar, Fatty liver (ICD-10 - K76.0) [facility] Other 09-27-2022 Evaluation note* Encounter Date Diagnosis Assessment Notes Treatment Notes Treatment Clinical Notes Jan, Contact with and (suspected) exposure to other viral communicable diseases (ICD-10 - Z20.828) Jan, Viral URI with cough (ICD-10 - J06.9) Advised patient that rapid COVID antigen test was negative today. Advised patient that will treat as viral URI. Supportive care as directed, increase fluids and rest, Tylenol/Motrin as directed, OTC cough/cold remedies as directed on packaging such as Mucinex DM, cool mist humidifier, throat lozenges. Discussed infection control practices such as good hand washing and mask wearing. Patient to follow up with PCP if symptoms persist or worsen despite treatment. Immediate eval for SOB, difficulty, chest pain, fevers that do not break with antipyretic or any other concerning symptoms as reviewed on patient education handout. Patient verbalizes understanding and is agreeable to treatment plan. Patient left in stable condition [facility] Other Evaluation noteNo assessment information available [facility] Work Phone: Evaluation noteNo InformationNort [facility] Other Evaluation note* Diagnosis Positive TENA (antinuclear antibody)- Primary Other and unspecified nonspecific immunological findings Chronic fatigue Other malaise and fatigue Pain in both hands Bilateral carpal tunnel syndrome Carpal tunnel syndrome documented in this [facility] N[facility]ative - Reported* Type Description Date Medical History bi polar [facility] Other Hiszvzf general Narrative - Reported* Type Description Date Medical History bi polar Surgical History appendectomy [facility] Other History general Narrative - Reported* Type Description Date Medical History bi polar Surgical History appendectomy Hospitalization History see above [facility] Other Instructions* Attachments The following attachments cannot be sent through Care Everywhere. * Carpal tunnel syndrome (Greenlandic) * Fibromyalgia (Greenlandic) * Gabapentin, ADULT ([place]ic) * Duloxetine, ADULT ([place]ic) * Meloxicam, ADULT ([place]ic) [facility] for [facility] Narrative PATIENT IS HERE AT THE REQUEST OF DR. PISANO FOR HEP INFECTION AND ELEVATED LIVER ENZYMES. US GALL BLADDER IN PT DOCS-LABS IN REFERRAL NOTESNort [facility] Other Summary Purpose Family History No Family History Records FoundNo Family History Records FoundNo Family History Records FoundNo Family History Records FoundNo Family History Records FoundNo Family History Records FoundNo Family History Records FoundNo Family History Records Found Advance Directives No Advanced Directives Records Found Advance Directive Response Recorded Date/ Time Advance Directives No December 18, 2018 8:54am Latest Code Status on File Code Status Date Activated Date Inactivated Comments Full Code 02/20/2022 8:51 AM 02/20/2022 1:58 PM Chief Complaint and Reason for Visit Chief Complaint B15.9 R79.89 Chief Complaint B15.9 R79.89 Fatty Liver Chief Complaint B15.9 R79.89 Fatty Liver r79.89 r53.83 Reason for Referral Specialty Diagnoses / Procedures Referred By Dhaval aparicio Referred To Contact Diagnoses Pain in both hands Bilateral carpal tunnel syndrome Procedures EMG Magalie Cox V, ERLINDA [address] [facility] [address] [place] [address] Referral ID Status Reason Start Date Expiration Date V isits Requested Visits Authorized [id number] Pending Review 07/21/2023 07/20/2024 1 1 Reason CONSULT Diagnosis 1 Fatigue (R53.83) Diagnosis 2 Body aches (R52) Referral Organization [facility] Referring Provider First Name Imad Referring Provider Last Name Asaad Referring Provider Specialty Gastroenter ology Referred Organization Unknown Facility Referred Provider Naomi Acuña Referred Provider Specialty Rheumatology Referral Priority Routine Additional Source Comments (unrecognized sect ion and content) No Status Records FoundNo Status Records FoundNo Status Records FoundNo Status Records FoundNo Status Records FoundNo Status Records FoundNo Status Records FoundNo Status Records Found INFORMATION SOURCE (unrecogn ized section and content) DATE CREATED AUTHOR 01/06/2018 [facility] DATE CREATED AUTHOR AUTHOR'S ORGANIZ ATION 04/19/2021 [facility] DATE CREATED AUTHOR AUTHOR'S ORGANIZ ATION 05/02/2021 [facility] dical Specialist DATE CREATED AUTHOR AUTHOR'S ORGANIZ ATION 09/22/2022 [facility]ital DATE CREATED AUTHOR AUTHOR'S ORGANIZ ATION 06/19/2023 [facility] DATE CREATED AUTHOR AUTHOR'S ORGANIZ ATION 06/22/2023 [facility] DATE CREATED AUTHOR AUTHOR'S ORGANIZ ATION 07/01/2023 [facility] DATE CREATED AUTHOR AUTHOR'S ORGANIZ ATION 07/24/2023 [facility] REASON FOR VISIT (unrecogniz ed section and content) Reason Comments New Patient M25.50- Pain in unsp ecified joint R53.83 - Other fatigue R76.8- Other specified abnormal immunological findings in serum Care Teams (unrecognized sec tion and content) Team Status: Active Member Role Status Dates Baljit Pisano DO Primary Care Provider Active Team Status: Inactive Member Role Status Dates Baljit Pisano DO Primary Care Provider Active Wilver Felton MD Attending Provider Active Team Status: Inactive Member Role Status Dates Wilver Felton MD Attending Provider Active Baljit Pisano DO Primary Care Provider Active Team Status: Inactive Member Role Status Dates Baljit Pisano DO Primary Care Provider Active Lewis Mirza MD Attending Provider Active Reservoir Engineer Relationship Specialty Start Date End Date Baljit Pisano DO [address] [place] [address] PCP - General 01/07/17 Goals (unrecognized section and content) Goals may be documented in a n alternate section FOR RECORDS PERTAINING TO PATIENTS WHO ARE OR HAVE BEEN ENROLLED IN A CHEMICAL DEPENDENCY/SUBSTANCEABUSE PROGRAM, SOME INFORMATION MAY BE OMITTED. This clinical summary was aggregated from multiple sources. Caution should be exercised in using it in the provision of clinical care. This summary normalizes information from multiple sources, and as a consequence, information in this document may materially change the coding, format and clinical context of patient data. In addition, data may be omitted in some cases. CLINICAL DECISIONS SHOULD BE BASED ON THE PRIMARY CLINICAL RECORDS. [employer] provides no warranty or guarantee of the accuracy or completeness of information in this document.
[2023-08-06 23:05] VITALS: BP 117/83; PULSE 91; O2SAT 100
== END 2023-08-06 23:09 | disposition home or self-care (01) ==
PROVIDERS: Emergency Provider Emergency Medicine; PCP Nurse Practitioner Family
DX: M77.8 Other enthesopathies, not elsewhere classified (principal); Z79.899 Other long term (current) drug therapy; E66.9 Obesity, unspecified; Z68.43 Body mass index [BMI] 50.0-59.9, adult
CPT/HCPCS: 73110; 73130; 99283

== ENCOUNTER 2024-01-24 20:24 | Emergency (ER) | payer OTHER, SELFPAY ==
--- OUTSIDE RECORDS SUMMARY | 2024-01-24 20:31 | XMS_ITS | CCD ---
Author Organization [facility] CliniSyd[facility] Care Team Providers Care Drop Wire Builder Name Role Phone NAOMI ROD Unavailable Unavailable [...] Consulting Unavailable HOUSE, DR COLLAZO Attending Unavailable [facility], DR SANJAY Gavin Consulting Unavailable Asaad, Imad Unavailable DO Baljit Pisano Primary Care Provider [phone] MD Wilver Felton Attending Provider [phone] MD Lewis Mirza Attending Provider Manuelad, Imad Attending Unavailable House, Baljit Primary Care Unavailable [...] Care Unavailable Rafita Stover MD Attending Unavailable House DO, Baljit P Primary Care Provider DO Baljit Pisano Primary Care Provider [phone] MD Lewis Mirza Attending Provider REUBEN Diaz Primary Care Provider MD Kareem Tijerina Attending Provider [phone] SHENBETTINA VCYNYA Attending Unavailable HOUSE, BALJIT P Referring Unavailable HOUSE, BALJIT P Primary Care Unavailable SHENDGE V, PATTIE Referring Unavailable HOUSE, BALJIT P Primary Care Unavailable HOUSE, BALJIT P Referring Unavailable HOUSE, BALJIT P Primary Care Unavailable HOUSE, BALJIT P Primary Care Unavailable ASHLEY WASHINGTON Attending Unavailable RAFITA GODWIN Attending Unavailable DARWINACHER, LEATHA Primary Care Unavailable RAFITA GODWIN Attending Unavailable RAFITA GODWIN Referring Unavailable ROHRBACHER, LEATHA Primary Care Unavailable ROHRBACHER, LEATHA Primary Care Unavailable YARELY PACHECO Attending Unavailable HOUSE, BALJIT P Primary Care Unavailable SANJAY WEBSTER Attending Unavailable SANJAY WEBSTER Attending Unavailable SANJAY WEBSTER Referring Unavailable HOUSE, BALJIT P Primary Care Unavailable Allergies Allergy Classification Reported Allergen(s) Allergy Type Date of Onset Reaction(s) Facility Penicillins (antibiotic) (1 source) Penicillins; Translations: [PENICILLINS] Drug Allergy [facility] Repository (1 source) penicillAMINE Drug Allergy [facility] Other (6 sources) Penicillin; Translations: [penicillin] Drug Allergy Unknown [facility] Repository (12 sources) Penicillins; Translations: [PENICILLINS] Drug allergy (disorder) 7 [facility] Repository (1 source) Penicillins Propensity to adverse reactions to drug 7 [facility] Medications Current Medications Medication Drug Class(es) [...] cariprazine (1 source) Atypical Antipsychotic Vraylar Active Cholecalciferol (15 sources) Vitamin D Start: 10-22-2023 take 1 capsule by mouth once daily cholecalciferol (vitamin D3) Active 1 CAP PO Daily October 22, 2023 12:00am Start: 07-09-2023 End: 10-22-2023 take 1 dose by mouth every week Cholecalciferol (Vitamin D3) Discontinued 1250 MCG PO every week 10 07July 09, 2023 1:00am October 22, 2023 9:43am take above dose for 8 weeks and then start 2,000 units daily of OTC vitamin d3 famotidine 20 mg oral tablet (1 source) Histamine-2 Receptor Antagonist Start: 12-26-2022 take 1 tablet by mouth in the morning, then take 1 tablet by mouth at bedtime famotidine (PEPCID) 20 mg tablet Take 1 tablet (20 mg total) by mouth in the morning and 1 tablet (20 mg total) before bedtime. 20 tablet 0 12/26/2022 Active meloxicam 15 mg oral tablet (1 [...] 10 doses. 10 tablet 0 12/26/2022 Active sertraline 50 mg oral tablet (10 sources) Serotonin Reuptake Inhibitor Start: 11-09-2023 take 50 mg by mouth once daily Sertraline Active 50 MG PO Daily 90 90 November 09, 2023 8:42am Start: 10-12-2023 End: 11-09-2023 take 25 mg by mouth once daily Sertraline Discontinued 25 MG PO Daily 30 October 12, 2023 12:00am November 09, 2023 8:43am tiZANidine 2 mg oral tablet (1 source) Central alpha-2 Adrenergic Agonist Start: 06-30-2023 take 1 tablet by mouth every six hours as needed tiZANidine (ZANAFLEX) 2 mg tablet Take 1 tablet (2 mg total) by mouth every 6 (six) hours as needed for muscle spasms. 12 tablet 0 06/30/2023 Active Completed/Discontinued Medications Medication Drug Class(es) Dates Sig (Normalized) Sig (Original) azithromycin 250 mg oral tablet (4 sources) Macrolide Antimicrobial Start: 11-09-2023 End: 12-09-2023 Azithromycin Discontinued 250 MG PO daily 6 5 November 09, 2023 12:00am December 09, 2023 11:26am Take 2 tablets today and then 1 for the next 4 days benzonatate 200 mg oral capsule (7 sources) Non-narcotic Antitussive Start: 08-27-2023 End: 09-10-2023 take 200 mg by mouth three times daily Benzonatate Discontinued 200 MG PO Three times daily 09 03August 27, 2023 12:00am September 10, 2023 10:35am doxycycline monohydrate 100 mg oral tablet (7 sources) Tetracycline-class Drug Start: 08-27-2023 End: 09-10-2023 take 100 mg by mouth twice daily Doxycycline Monohydrate Discontinued 100 MG PO Twice daily 27 02August 27, 2023 12:00am September 10, 2023 10:35am ibuprofen 200 mg oral tablet (12 sources) Nonsteroidal Anti-inflammatory Drug Start: 07-06-2023 End: 10-22-2023 take 200 mg by mouth every six hours Ibuprofen Discontinued 200 MG PO Every 6 hours July 06, 2023 1:00am October 22, 2023 9:43am Start: 06-30-2023 take 1 tablet by gilberto th every eight hours as needed for pain ibuprofen (MOTRIN) 600 mg tablet Take 1 tablet (600 mg total) by mouth every 8 (eight) hours as needed for pain. 12 tablet 0 06/30/2023 Active take 2 tablets by mo ut twice daily at mealtime as needed Ibuprofen 200 MG 2 tablet with food or milk as needed Orally twice a day Active Semaglutide (Weight Loss) (15 sources) Start: 09-10-2023 End: 09-10-2023 Semaglutide (Weight Loss) (W egovy) 0.25 mg/0.5 mL pen injector Discontinued 0.25 MG SUBCUT every week September 10, 2023 10:37am September 10, 2023 10:55am administer weeks 1 through 4 of therapy Start: 08-13-2023 End: 09-10-2023 Semaglutide (Weight Loss) (W egovy) 0.25 mg/0.5 mL pen injector Discontinued 0.25 MG SUBCUT every week 2 August 13, 2023 12:00am September 10, 2023 10:37am administer weeks 1 through 4 of therapy Start: 08-13-2023 Semaglutide (W eight Loss) (Wegovy) 0.25 mg/0.5 mL pen injector Active 0.25 MG SUBCUT every week 2 August 13, 2023 12:00am administer weeks 1 through 4 of therapy Problems Active Problems Problem Classification Problem Date Documented Da te Episodic/Chronic Abdominal pain (4 sources) Abdominal tenderness of left lower quadrant; Translations: [Left lower quadrant abdominal tenderness] 12-31-2023 Episodic Cardiac dysrhythmias (11 sources) Tachycardia; Translations: [Tachycardia, unspecified] Onset: 01-21-2024 10-22-2023 Episodic Chronic obstructive pulmonary disease and bronchiectasis (14 sources) Bronchitis; Translations: [Bronchitis, not specified as acute or chronic] 08-27-2023 Episodic Diabetes mellitus without complication (10 sources) Hyperglycemia; Translations: [Hyperglycemia, unspecified] 08-13-2023 Episodic Disorders of lipid metabolism (16 sources) Mixed hyperlipidemia; Translations: [Mixed hyperlipidemia] 09-10-2023 Chronic Gastrointestinal hemorrhage (4 sources) Hematochezia; Translations: [Melena] Onset: 01-21-2024 12-31-2023 Episodic Hepatitis (7 sources) Hepatitis A test positive; Translations: [Hepatitis A without hepatic coma] Episodic Hepatitis (1 source) Hepatitis; Translations: [Hepatitis A without hepatic coma] Onset: 03-19-2023 Immunizations and screening for infectious disease (19 sources) Contact with and (suspected) exposure to other viral communicable diseases; Translations: [Anti-nuclear factor positive] Onset: 07-21-2023 Episodic Influenza (1 source) Influenza Onset: 10-30-2023 Malaise and fatigue (2 sources) Fatigue; Translations: [Chronic fatigue, unspecified] Onset: 07-21-2023 07-21-2023 Chronic Malaise and fatigue (16 sources) Other fatigue; Translations: [Fatigue] Onset: 04-21-2023 Episodic Mood disorders (20 sources) Bipolar disorder; Translations: [Bipolar disorder, unspecified] Onset: 10-08-2023 07-07-2023 Chronic Mood disorders (1 source) Mood disorders; Translations: [Depression, unspecified] Onset: 10-08-2023 Nonspecific chest pain (2 sources) Chest pain, unspecified; Translations: [Other chest pain] Onset: 06-30-2023 Episodic Nutritional deficiencies (18 sources) Vitamin D deficiency; Translations: [Vitamin D deficiency, unspecified] 07-07-2023 Chronic Other connective tissue disease (4 sources) Pain [...] in left hand] Onset: 07-21-2023 Episodic Other gastrointestinal disorders (1 source) Altered bowel function; Translations: [Change in bowel habit] 12-31-2023 Episodic Other gastrointestinal disorders (1 source) Abdominal bloating; Translations: [Abdominal distension (gaseous)] 12-31-2023 Episodic Other gastrointestinal disorders (1 source) Abdominal distension (gaseous); Translations: [Flatulence, eructation, and gas pain] 12-31-2023 Episodic Other gastrointestinal disorders (1 source) Change in bowel habit; Translations: [Other symptoms involving digestive system] 12-31-2023 Episodic Other liver diseases (15 sources) Steatosis of liver; Translations: [Fatty (change of) liver, not elsewhere classified] 07-08-2023 Chronic Other liver diseases (20 sources) Fatty (change of) liver, not elsewhere classified; Translations: [Other chronic nonalcoholic liver disease] Onset: 04-01-2023 Chronic Other nervous system disorders (1 source) Bilateral carpal tunnel syndrome; Translations: [Carpal tunnel syndrome, bilateral upper limbs] 07-21-2023 Chronic Other nervous system disorders (1 source) Carpal tunnel syndrome, bilateral upper limbs; Translations: [Carpal tunnel syndrome, bilateral upper limbs] Onset: 07-21-2023 Chronic Other non-traumatic joint disorders (4 sources) Other specified arthritis, unspecified site; Translations: [OTHER SPECIFIED ARTHRITIS UNS SITE] Onset: 09-15-2022 Chronic Other non-traumatic joint disorders (10 sources) Multiple joint pain; Translations: [Pain in unspecified joint] 07-08-2023 Episodic Other non-traumatic joint disorders (4 sources) Pain in unspecified joint; Translations: [Pain in joint, multiple sites] 07-07-2023 Episodic Other non-traumatic joint disorders (17 sources) Pain in left knee; Translations: [Left knee pain] 09-24-2023 Episodic Other non-traumatic joint disorders (5 sources) Pain in right knee; Translations: [Pain in joint, lower leg] 09-24-2023 Episodic Other nutritional; endocrine; and metabolic disorders (10 sources) Morbid obesity; Translations: [Morbid (severe) obesity due to excess calories] 07-08-2023 Chronic Other nutritional; endocrine; and metabolic disorders (4 sources) Morbid (severe) obesity due to excess calories; Translations: [Morbid obesity] 07-07-2023 Chronic Other nutritional; endocrine; and metabolic disorders (6 sources) Body mass index 40+ - severely obese; Translations: [Body mass index (BMI) 50.0-59.9, adult] 09-10-2023 Chronic Other nutritional; endocrine; and metabolic disorders (10 sources) Body mass index (BMI) 50.0-59.9, adult; Translations: [Body Mass Index 50.0-59.9, adult] 09-10-2023 Chronic Other nutritional; endocrine; and metabolic disorders (9 sources) Abnormal weight gain; Translations: [Abnormal weight gain] 08-13-2023 Episodic Other nutritional; endocrine; and metabolic disorders (6 sources) Abnormal weight gain; Translations: [Abnormal weight gain] 08-13-2023 Episodic Other nutritional; endocrine; and metabolic disorders (1 source) Decrease in appetite; Translations: [Anorexia] 12-31-2023 Episodic Other nutritional; endocrine; and metabolic disorders (1 source) Anorexia; Translations: [Anorexia] 12-31-2023 Episodic Other screening for suspected conditions (not mental disorders or infectious disease) (10 sources) Elevated liver enzymes level; Translations: [Other specified abnormal findings of blood chemistry] Onset: 03-19-2023 Episodic Other upper respiratory infections (11 sources) Maxillary sinusitis; Translations: [Chronic maxillary sinusitis] 08-27-2023 Chronic Other upper respiratory infections (2 sources) Acute upper respiratory infection, unspecified; Translations: [Acute upper respiratory infection, unspecified] Onset: 10-30-2023 Episodic Residual codes; unclassified (10 sources) Family history of Luis thyroiditis; Translations: [Family history of other endocrine, nutritional and metabolic diseases] 07-07-2023 Episodic Residual codes; unclassified (10 sources) Disturbance in sleep behavior; Translations: [Sleep disorder, unspecified] 07-08-2023 Episodic Residual codes; unclassified (4 sources) Family history of other endocrine, nutritional and metabolic diseases; Translations: [Family history of other endocrine and metabolic diseases] 07-07-2023 Episodic Residual codes; unclassified (10 sources) Sleep disorder, unspecified; Translations: [Sleep disturbance, unspecified] 07-07-2023 Episodic Skin and subcutaneous tissue infections (1 source) Pilonidal cyst without abscess; Translations: [Pilonidal cyst without abscess] Onset: 01-21-2024 Episodic Spondylosis; intervertebral disc disorders; other back problems (1 source) Backache Onset: 01-21-2024 Episodic Unclassified (1 source) Pain in right knee; Translations: [Pain in right knee] Onset: 05-19-2023 Unclassified (1 source) SI Onset: 10-08-2023 Unclassified (1 source) New Patient Onset: 07-21-2023 Unclassified (1 source) Nasal Congestion, Chest Congestion Onset: 10-30-2023 Past or Other Problems Problem Classification Problem Date Documented Da te Episodic/Chronic Appendicitis and other appendiceal conditions (1 source) Acute appendicitis; Translations: [Unspecified acute appendicitis] Onset: 02-20-2022 02-20-2022 Episodic Other lower respiratory disease (1 source) Rib pain Onset: 06-30-2023 Episodic Results Test Name Value Interpretation Reference Range Facility XR CHEST 2 VWSon 10-30-2023 XR CHEST 2 VWS XR CHEST 2 VWS HISTORY: Cough, shortness of breath COMPARISON: Chest x-ray 06/30/2023 FINDINGS: PA and lateral views of the chest were obtained. Cardiac silhouette is within normal limits. No airspace consolidation or vascular congestion. No pleural effusion or pneumothorax. IMPRESSION: * No acute abnormality. Finalized by Tommy Owens MD on 10/30/2023 1:12 AM [facility] Cholesterol [Mass/volume] in Serum or PlasmaOrdered By: Kareem Tijerina on 08-13-2023 Cholesterol [Mass/Vol] 162 mg/dL 140-200 [facility] Comment on above: Chol less than 200 m g/dl low riskChol 201-239 mg/dl borderline riskChol 240 mg/dl and greater high risk Cholesterol in LDL Calc [Mas s/Vol]Ordered By: Kareem Tijerina on 08-13-2023 Cholesterol in LDL [Mass/Vol] 101 mg/dL High 0-100 [facility] Comment on above: LDL ATP III CLASSIFI CATIONLDL less than 100 mg/dL OptimalLDL 100-129 mg/dL Near or above optimalLDL 130-159 mg/dL Borderline highLDL 160-189 mg/dL HighLDL greater than 189 mg/dL Very high Cholesterol in VLDL Calc [Ma ss/Vol]Ordered By: Kareem Tijerina on 08-13-2023 Cholesterol in VLDL [Mass/Vol] 28 mg/dL [facility] HbA1c HPLC (Bld) [Mass fract ion]on 08-13-2023 HbA1c (Bld) [Mass fraction] 5.6 % [facility] Serum or plasma high density lipoprotein (HDL) cholesterol measurementOrdered By: Kareem Tijerina on 08-13-2023 Cholesterol in HDL [Mass/Vol] 32 mg/dL 23-92 [facility] Comment on above: HDL CHOL ATP-III CLA SSIFICATION Cardiovascular RiskHDL > or equal to 60 mg/dL LOWHDL < 40 mg/dL HIGH Serum or plasma insulin reynold urement (units/volume)Ordered By: Kareem Tijerina on 08-13-2023 Insulin Qn 23.8 u[iU]/mL 2.6-24.9 [facility] Comment on above: Performed at: [facility] Walk-in Appointment Scheduler [address] [id number] Director: Zechariah Paula PhD, Phone: [phone] Serum or plasma total choles terol/high density lipoprotein (HDL) cholesterol mass ratOrdered By: Kareem Tijerina on 08-13-2023 Cholesterol.total/[place] sterol in HDL [Mass ratio] 5.1 {ratio} <5.0 [facility] Triglyceride [Mass/volume] i n Serum or PlasmaOrdered By: Kareem Tijerina on 08-13-2023 Triglyceride [Mass/Vol] 144 mg/dL 0-149 [facility] Comment on above: TRIG ATP III CLASSIF ICATIONTRIG less than 150 mg/dL NormalTRIG 150-199 mg/dL Borderline highTRIG 200-500 mg/dL High TRIG greater than 500 mg/dL Very highStandard traceable to the Center for Disease Conrtrol and Prevention (CDC) test method. XR OSSEOUS SURVEY LIMITEDon 07-22-2023 XR OSSEOUS [...] Palm MD on 07/22/2023 8:15 PM Normal [facility] - Chemistry and C hemistry - challengeon 07-08-2023 TSH Qn 1.138 m[IU]/L 0.516-4.13 0 [facility] No Panel Informationon 07-08 25-Hydroxy Vitamin D Total 11.0 ng/mL [facility] Comment on above: <20 ng/mL Vit D defi cient20-<30 ng/mL Vit D [id number] ng/mL Vit D sufficient>100 ng/mL Potential Toxicity Serum or plasma thyroperoxid ase antibody assay (units/volume)on 07-08-2023 TPO Ab Qn 9 [IU]/mL 0-26 [facility] Thyroglobulin [Mass/volume] in Serum or Plasmaon 07-08-2023 Thyroglobulin [Mass/Vol] <1.0 [IU]/mL 0.0-0.9 [facility] Comment on above: Thyroglobulin Antibo dy measured by AvatripMethodologyIt should be noted that the presence of thyroglobulinantibodies may not be pathogenic nor diagnostic, especiallyat very low levels. The assay fishing captain has found thatfour percent of individuals without evidence of thyroiddisease or autoimmunity will have positive TgAb levels upto 4 IU/mL.Performed at: [email or web address] [id number] Director: Zechariah Paula PhD, Phone: [phone] BASIC METABOLIC PANLon 06-30 Anion gap [Moles/Vol] 6 mmol/L Normal 5-15 [facility] Comment on above: Performed By: #### B SHERLYN RON, 23784-3, 14600-3 #### [facility] ([id number]) [address] [place] [address] 19413 Calcium [Mass/Vol] 8.9 mg/dL Normal 8.5-10.5 [facility] Comment on above: Performed By: #### B ASAF CBCA, 79205-5, 34427-4 #### [facility] ([id number]) [address] [place] [address] 44324 Chloride [Moles/Vol] 104 mmol/L Normal 98-109 [facility] Comment on above: Performed By: #### B ASAF CBCA, 74855-5, 77015-9 #### [facility] ([id number]) [address] [place] [address] 99976 CO2 [Moles/Vol] 24 mmol/L Normal 22-32 [facility] Comment on above: Performed By: #### B ASAF, MARYA, 17330-4, 92226-6 #### [facility] ([id number]) [address] [place] [address] 30043 Creatinine [Mass/Vol] 0.83 mg/dL Normal 0.70-1.20 [facility] Comment on above: Result Comment: METH OD TRACEABLE TO IDMS STANDARD Performed By: #### B SHERLYN RON, 93000-7, 79870-5 #### [facility] ([id number]) [address] [place] [address] 01579 eGFR (CKD-EPI) NON-RACE DEPENDENT >90 Normal >59 [facility] Comment on above: Result Comment: Reported eGFR is based on the CKD-EPI 2020 equation that does not use a race coefficient. Performed By: #### B ASAF, SHERLYN, 59399-9, 12635-2 #### [facility] ([id number]) [address] [place] [address] 45203 Glucose [Mass/Vol] 103 mg/dL High 65-99 [facility] Comment on above: Performed By: #### B ASAF, MARYA, 40462-1, 14986-3 #### [facility] ([id number]) [address] [place] [address] 03182 Potassium [Moles/Vol] 3.7 mmol/L Normal 3.5-5.0 [facility] Comment on above: Performed By: #### B MARY RONA, 38222-4, 54174-8 #### [facility] ([id number]) [address] [place] [address] 55864 Sodium [Moles/Vol] 134 mmol/L Normal 134-146 [facility] Comment on above: Performed By: #### B ASAF, CBCA, 57826-8, 20691-3 #### [facility] ([id number]) [address] [place] [address] 83106 Urea nitrogen [Mass/Vol] 10 mg/dL Normal 5-23 [facility] Comment on above: Performed By: #### B MP, CBCA, 20861-9, 20414-6 #### [facility] ([id number]) [address] [place] [address] 81048 CBC AND AUTO DIFFon 06-30- 24 ABSOLUTE BASOPHIL 0.0 X10E9/L Normal 0.0-0.2 [facility] Comment on above: Performed By: #### B MP, CBCA, 32213-5, 84241-2 #### [facility] ([id number]) [address] [place] [address] 40602 ABSOLUTE NEUTROPHIL 2.6 X10E9/L Normal 1.5-6.6 [facility] Comment on above: Performed By: #### B MP, CBCA, 55567-0, 31451-9 #### [facility] ([id number]) [address] [place] [address] 55441 Basophils/100 WBC (Bld) 0.6 % Normal [facility] Comment on above: Performed By: #### B MP, CBCA, 31786-1, 41778-6 #### [facility] ([id number]) [address] [place] [address] 34653 Eosinophils (Bld) [#/Vol] 0.1 10*3/uL Normal 0.0-0.4 [facility] Comment on above: Performed By: #### B MP, CBCA, 88347-1, 21416-8 #### [facility] ([id number]) [address] [place] [address] 91971 Eosinophils/100 WBC (Bld) 2.7 % Normal [facility] Comment on above: Performed By: #### B MP, CBCA, 65519-2, 71240-6 #### [facility] ([id number]) [address] [place] [address] 76327 Erythrocyte distribution width (RBC) [Ratio] 13.3 % Normal 11.5-15.0 [facility] Comment on above: Performed By: #### B MP, CBCA, 27089-3, 11630-2 #### [facility] ([id number]) [address] [place] [address] 12894 Hematocrit (Bld) [Volume fraction] 41.2 % Normal 39-49 [facility] Comment on above: Performed By: #### B ASAF, CBCA, 88496-6, 02735-9 #### [facility] ([id number]) [address] [place] [address] 45853 Hemoglobin (Bld) [Mass/Vol] 14.3 g/dL Normal 13.0-17.0 [facility] Comment on above: Performed By: #### B MP, CBCA, 01041-4, 14126-1 #### [facility] ([id number]) [address] [place] [address] 84504 Lymphocytes (Bld) [#/Vol] 1.4 10*3/uL Normal 1.0-3.5 [facility] Comment on above: Performed By: #### B ASAF, CBCA, 33538-9, 11592-6 #### [facility] ([id number]) [address] [place] [address] 22528 Lymphocytes/100 WBC (Bld) 30.6 % Normal [facility] Comment on above: Performed By: #### B MP, CBCA, 31139-3, 69325-4 #### [facility] ([id number]) [address] [place] [address] 06802 MCH (RBC) [Entitic mass] 29.7 pg Normal 27-34 [facility] Comment on above: Performed By: #### B MP, CBCA, 91640-2, 23730-3 #### [facility] ([id number]) [address] [place] [address] 81569 MCHC (RBC) [Mass/Vol] 34.7 g/dL Normal 32-36 [facility] Comment on above: Performed By: #### B MP, CBCA, 10595-9, 49131-3 #### [facility] ([id number]) [address] [place] [address] 66844 MCV (RBC) [Entitic vol] 86 fL Normal 80-100 [facility] Comment on above: Performed By: #### B MP, CBCA, 94946-3, 36500-3 #### [facility] ([id number]) [address] [place] [address] 48394 Monocytes (Bld) [#/Vol] 0.6 10*3/uL Normal 0-0.9 [facility] Comment on above: Performed By: #### B MP, CBCA, 39761-9, 29615-7 #### [facility] ([id number]) [address] [place] [address] 38758 Monocytes/100 WBC (Bld) 11.8 % Normal [facility] Comment on above: Performed By: #### B MP, CBCA, 43211-0, 01194-9 #### [facility] ([id number]) [address] [place] [address] 61317 Neutrophils/100 WBC (Bld) 54.3 % Normal [facility] Comment on above: Performed By: #### B MP, CBCA, 35170-3, 96238-2 #### [facility] ([id number]) [address] [place] [address] 19719 Platelet mean volume (Bld) [Entitic vol] 9.1 fL Normal 7-12 [facility] Comment on above: Performed By: #### B MP, CBCA, 87650-6, 99211-6 #### [facility] ([id number]) [address] [place] [address] 84057 Platelets (Bld) [#/Vol] 236 10*3/uL Normal 150-450 [facility] Comment on above: Performed By: #### B MP, CBCA, 12343-4, 78251-8 #### [facility] ([id number]) [address] [place] [address] 16420 RBC COUNT 4.82 X10E12/L Normal 4.10-5.70 [facility] Comment on above: Performed By: #### B MP, CBCA, 32885-7, 56642-0 #### [facility] ([id number]) [address] [place] [id number] WBC (Bld) [#/Vol] 4.7 10*3/uL Normal 4.0-11.0 [facility] Comment on above: Performed By: #### B MP, CBCA, 34183-4, 28199-5 #### [facility] ([id number]) [address] [place] [address] Fibrin D-dimer DDU (PPP) [Ma ss/Vol]on 06-30-2023 D DIMER <150 Normal <255 [facility] Comment on above: Result Comment: Results <255 ng/mL DDU: The presence of a VTE can safely be excluded with a negative D-Dimer result and Wells score. A negative result doesn't exclude the possibility of DIC. The test be repeated along with other diagnostic tests if the patient's symptoms persist or worsen. [email or web address] Performed By: #### B MP, CBCA, 17083-3, 48433-4 #### [facility] ([id number]) [address] [place], [place] [id number] TROPONIN Ion 06-30-2023 Troponin I.cardiac [Mass/Vol] ng/mL Normal 0.00-0.04 [facility] Comment on above: Performed By: #### B ASAF, CBCA, 01606-9, 52115-5 #### [facility] ([id number]) [address] [place] [address] XR CHEST 2 VWSon 06-30-2023 XR CHEST 2 VWS XR CHEST 2 VWS XR CHEST 2 VWS INDICATION: right sided chest pain. Chest pain FINDINGS: Cardiac silhouette is normal in size. Trachea midline. No focal pulmonary consolidation. No pleural effusion. No pneumothorax. IMPRESSION: 1. No acute findings. Finalized by Dwaine Sharpe MD on 06/30/2023 5:11 AM Normal [facility] Miscellaneouson 06-22-2023 Miscellaneous [id number]#1.00OTG TIFF Normal [facility] Office/Clinic Noteon 024 Miscellaneous [id number]#1.00OT GTIFF [facility] Office/Clinic Note [id number]#1.00OT GTIFF [facility] Alanine aminotransferase [En zymatic activity/volume] in Serum or PlasmaOrdered By: Lewis Mirza on 05-19-2023 ALT [Catalytic activity/Vol] 56 U/L 7-52 [facility] Albumin [Mass/volume] in Ser um or Plasma by Bromocresol green (BCG) dye binding methoOrdered By: Lewis Mirza on 05-19-2023 Albumin BCG dye [Mass/Vol] 4.4 g/dL 3.5-5.7 [facility] Alkaline phosphatase [Enzyma tic activity/volume] in Serum or PlasmaOrdered By: Lewis Mirza on 05-19-2023 ALP [Catalytic activity/Vol] 58 U/L 34-104 [facility] Anti-Centromere B Antibodies on 05-19-2023 Anti-Centromere B Antibodies <0.2 Normal 0.0-0.9 [facility] Comment on above: Result Comment: Perf ormed at: - [facility] [address] [id number] Frame Feeder: Zechariah Paula PhD, Phone: [phone] Performed By: #### I GG, SMAB, MITOM2, L-K MICRO, ALPHA PHEN, HEMOCHROM, CERULOP, TENA #### [facility] , #### PARVEEN, TSH3 #### [address] Anti-RNPon 05-19-2023 Anti-SECURITIES RESEARCH ANALYST 0.6 Normal 0.0-0.9 [facility] Comment on above: Performed By: #### I GG, SMAB, MITOM2, L-K MICRO, ALPHA PHEN, HEMOCHROM, CERULOP, TENA #### [facility] , #### PARVEEN, TSH3 #### [address] Anti-Newberry Antibodieson Anti-Newberry Antibodies <0.2 Normal 0.0-0.9 [facility] Comment on above: Performed By: #### I GG, SMAB, MITOM2, L-K MICRO, ALPHA PHEN, HEMOCHROM, CERULOP, TENA #### [facility] , #### PARVEEN, TSH3 #### [address] Anti-dsDNA(DBL)Abon 05-19-19 24 Anti-dsDNA(DBL)Ab 3 Normal 0-9 [facility] Comment on above: Result Comment: Nega tive <5 Equivocal 5 - 9 Positive >9 Performed By: #### I GG, SMAB, MITOM2, L-K MICRO, ALPHA PHEN, HEMOCHROM, CERULOP, TENA #### [facility] , #### PARVEEN, TSH3 #### [address] Aspartate aminotransferase [ Enzymatic activity/volume] in Serum or PlasmaOrdered By: Lewis Mirza on 05-19-2023 AST [Catalytic activity/Vol] 30 U/L 13-39 [facility] Automated erythrocytes count in urine sediment (number/area)Ordered By: Lewis Mirza on 05-19-2023 RBC Auto (Urine sed) [#/Area] 1-2 [HPF] 0-4 [facility] Automated leukocytes count i n urine sediment (number/area)Ordered By: Lewis Mirza on 05-19-2023 WBC Auto (Urine sed) [#/Area] None seen [HPF] 0-4 [facility] Basophils Auto (Bld) [#/Vol] Ordered By: Lewis Mirza on 05-19-2023 Basophils (Bld) [#/Vol] 0.0 10*3/uL 0.0-0.2 [facility] Basophils/100 WBC Auto (Bld) Ordered By: Lewis Mirza on 05-19-2023 Basophils/100 WBC (Bld) 0.7 % . F [facility] Bilirubin Test strip Ql (U)O rdered By: Lewis Mirza on 05-19-2023 Bilirubin Ql (U) Negative Negative [facility] Bilirubin.total [Mass/volume ] in Serum or PlasmaOrdered By: eLwis Mirza on 05-19-2023 Bilirubin [Mass/Vol] 0.8 mg/dL 0.3-1.0 [facility] C reactive protein [Mass/vol ume] in Serum or PlasmaOrdered By: Lewis Mirza on 05-19-2023 CRP [Mass/Vol] < 0.5 mg/dL 0.0-0.5 [facility] C-Reactive Proteinon 024 CRP [Mass/Vol] mg/L Normal 0.0-0.5 [facility] Comment on above: Performed By: #### I GG, SMAB, MITOM2, L-K MICRO, ALPHA PHEN, HEMOCHROM, CERULOP, TENA #### [facility] , #### PARVEEN, TSH3 #### [facility] [address] Calcium [Mass/volume] in Ser um or PlasmaOrdered By: Lewis Mirza on 05-19-2023 Calcium [Mass/Vol] 9.4 mg/dL 8.6-10.3 [facility] Carbon dioxide, total [Moles /volume] in Serum or PlasmaOrdered By: Lewis Mirza on 05-19-2023 CO2 [Moles/Vol] 23.5 mmol/L 21.0-31.0 [facility] Chloride [Moles/volume] in S saima or PlasmaOrdered By: Lewis Mirza on 05-19-2023 Chloride [Moles/Vol] 107 mmol/L 98-107 [facility] Color Auto (U)Ordered By: Jenny Mirza on 05-19-2023 Color (U) Yellow Yellow [facility] Complement C3on 05-19-2023 Complement C3 161 mg/dL Normal 82-167 [facility] Comment on above: Result Comment: Perf ormed at: CB - [facility] [place] [id number] Frame Feeder: Zechariah Paula PhD, Phone: [phone] Performed By: #### I GG, SMAB, MITOM2, L-K MICRO, ALPHA PHEN, HEMOCHROM, CERULOP, TENA #### [facility] , #### PARVEEN, TSH3 #### [facility] [address] [place] [address] Complement C4on 05-19-2023 Complement C4 24 mg/dL Normal 12-38 [facility] Comment on above: Performed By: #### I GG, SMAB, MITOM2, L-K MICRO, ALPHA PHEN, HEMOCHROM, CERULOP, TENA #### [facility] , #### PARVEEN, TSH3 #### [facility] [address] [place] [address] [place] Complement Total (CH50)on Complement Total (CH50) 49 Normal >41 F [facility] Comment on above: Result Comment: Age [...] determine out of range values. Performed at: - [facility] [id number] Frame Feeder: Zechariah Paula PhD, Phone: [phone] PERFORMED BY: [place] [address] PATHOLOGIST HEATING AND VENTILATION ENGINEER LISA COOLEY M.D. Performed By: #### I GG, SMAB, MITOM2, L-K MICRO, ALPHA PHEN, HEMOCHROM, CERULOP, TENA #### [facility] , #### PARVEEN, TSH3 #### [address] Complete Blood Count Auto Di ffon 05-19-2023 Basophils (Bld) [#/Vol] 0.0 10*3/uL Normal 0.0-0.2 [facility] Comment on above: Performed By: #### I GG, SMAB, MITOM2, L-K MICRO, ALPHA PHEN, HEMOCHROM, CERULOP, TENA #### [facility] , #### PARVEEN, TSH3 #### [address] Basophils/100 WBC (Bld) 0.7 % Normal . [facility] Comment on above: Performed By: #### I GG, SMAB, MITOM2, L-K MICRO, ALPHA PHEN, HEMOCHROM, CERULOP, TENA #### [facility] , #### PARVEEN, TSH3 #### [address] Eosinophils (Bld) [#/Vol] 0.2 10*3/uL Normal 0.0-0.45 [facility] Comment on above: Performed By: #### I GG, SMAB, MITOM2, L-K MICRO, ALPHA PHEN, HEMOCHROM, CERULOP, TENA #### [facility] , #### PARVEEN, TSH3 #### [address] Eosinophils/100 WBC (Bld) 2.7 % Normal . [facility] Comment on above: Performed By: #### I GG, SMAB, MITOM2, L-K MICRO, ALPHA PHEN, HEMOCHROM, CERULOP, TENA #### [facility] , #### PARVEEN, TSH3 #### [address] Erythrocyte distribution width (RBC) [Ratio] 13.0 % Normal 12.0-14.8 [facility] Comment on above: Performed By: #### I GG, SMAB, MITOM2, L-K MICRO, ALPHA PHEN, HEMOCHROM, CERULOP, TENA #### [facility] , #### PARVEEN, TSH3 #### [address] Hematocrit (Bld) [Volume fraction] 41.7 % Normal 38.8-50.0 [facility] Comment on above: Performed By: #### I GG, SMAB, MITOM2, L-K MICRO, ALPHA PHEN, HEMOCHROM, CERULOP, TENA #### [facility] , #### PARVEEN, TSH3 #### [address] Hemoglobin (Bld) [Mass/Vol] 14.2 g/dL Normal 13.0-17.0 [facility] Comment on above: Performed By: #### I GG, SMAB, MITOM2, L-K MICRO, ALPHA PHEN, HEMOCHROM, CERULOP, TENA #### [facility] , #### PARVEEN, TSH3 #### [address] Lymphocytes (Bld) [#/Vol] 2.1 10*3/uL Normal 1.00-4.8 [facility] Comment on above: Performed By: #### I GG, SMAB, MITOM2, L-K MICRO, ALPHA PHEN, HEMOCHROM, CERULOP, TENA #### [facility] , #### PARVEEN, TSH3 #### [address] Lymphocytes/100 WBC (Bld) 32.5 % Normal . [facility] Comment on above: Performed By: #### I GG, SMAB, MITOM2, L-K MICRO, ALPHA PHEN, HEMOCHROM, CERULOP, TENA #### [facility] , #### PARVEEN, TSH3 #### [address] MCH (RBC) [Entitic mass] 29.3 pg Normal 27.5-35.2 [facility] Comment on above: Performed By: #### I GG, SMAB, MITOM2, L-K MICRO, ALPHA PHEN, HEMOCHROM, CERULOP, TENA #### [facility] , #### PARVEEN, TSH3 #### [address] MCV (RBC) [Entitic vol] 86.0 fL Normal 83.5-101 F [facility] Comment on above: Performed By: #### I GG, SMAB, MITOM2, L-K MICRO, ALPHA PHEN, HEMOCHROM, CERULOP, TENA #### [facility] , #### PARVEEN, TSH3 #### [address] Mean Corpuscular HGB Conc 34.1 g/dL Normal 32.5-35.6 [facility] Comment on above: Performed By: #### I GG, SMAB, MITOM2, L-K MICRO, ALPHA PHEN, HEMOCHROM, CERULOP, TENA #### [facility] , #### PARVEEN, TSH3 #### [address] Monocytes (Bld) [#/Vol] 0.7 10*3/uL Normal 0.0-0.8 [facility] Comment on above: Performed By: #### I GG, SMAB, MITOM2, L-K MICRO, ALPHA PHEN, HEMOCHROM, CERULOP, TENA #### [facility] , #### PARVEEN, TSH3 #### [address] Monocytes/100 WBC (Bld) 10.7 % Normal . [facility] Comment on above: Performed By: #### I GG, SMAB, MITOM2, L-K MICRO, ALPHA PHEN, HEMOCHROM, CERULOP, TENA #### [facility] , #### PARVEEN, TSH3 #### [address] Neutrophils (Bld) [#/Vol] 3.4 10*3/uL Normal 1.8-7.7 [facility] Comment on above: Performed By: #### I GG, SMAB, MITOM2, L-K MICRO, ALPHA PHEN, HEMOCHROM, CERULOP, TENA #### [facility] , #### PARVEEN, TSH3 #### [address] Neutrophils/100 WBC (Bld) 53.4 % Normal . [facility] Comment on above: Performed By: #### I GG, SMAB, MITOM2, L-K MICRO, ALPHA PHEN, HEMOCHROM, CERULOP, TENA #### [facility] , #### PARVEEN, TSH3 #### [place] [address] [place] NRBC% 0.2 /100{WBC} Normal 0-0.5 [facility] Comment on above: Performed By: #### I GG, SMAB, MITOM2, L-K MICRO, ALPHA PHEN, HEMOCHROM, CERULOP, TENA #### [facility] , #### PARVEEN, TSH3 #### [address] Platelet mean volume (Bld) [Entitic vol] 9.2 fL Normal 6.6-10.1 [facility] Comment on above: Performed By: #### I GG, SMAB, MITOM2, L-K MICRO, ALPHA PHEN, HEMOCHROM, CERULOP, TENA #### [facility] , #### PARVEEN, TSH3 #### [address] Platelets (Bld) [#/Vol] 254 10*3/uL Normal 150-450 [facility] Comment on above: Performed By: #### I GG, SMAB, MITOM2, L-K MICRO, ALPHA PHEN, HEMOCHROM, CERULOP, TENA #### [facility] , #### PARVEEN, TSH3 #### [address] RBC (Bld) [#/Vol] 4.85 10*6/uL Normal 3.90-5.60 [facility] Comment on above: Performed By: #### I GG, SMAB, MITOM2, L-K MICRO, ALPHA PHEN, HEMOCHROM, CERULOP, TENA #### [facility] , #### PARVEEN, TSH3 #### [address] WBC (Bld) [#/Vol] 6.4 10*3/uL Normal 4.1-10.5 [facility] Comment on above: Performed By: #### I GG, SMAB, MITOM2, L-K MICRO, ALPHA PHEN, HEMOCHROM, CERULOP, TENA #### [facility] , #### PARVEEN, TSH3 #### [address] Comprehensive Metabolic Pane adrianna 05-19-2023 Albumin [Mass/Vol] 4.4 g/dL Normal 3.5-5.7 [facility] Comment on above: Performed By: #### I GG, SMAB, MITOM2, L-K MICRO, ALPHA PHEN, HEMOCHROM, CERULOP, TENA #### [facility] , #### PARVEEN, TSH3 #### [address] Albumin/Globulin [Mass ratio] 1.6 {ratio} Normal [facility] Comment on above: Performed By: #### I GG, SMAB, MITOM2, L-K MICRO, ALPHA PHEN, HEMOCHROM, CERULOP, TENA #### [facility] , #### PARVEEN, TSH3 #### [address] ALP [Catalytic activity/Vol] 58 U/L Normal 34-104 [facility] Comment on above: Performed By: #### I GG, SMAB, MITOM2, L-K MICRO, ALPHA PHEN, HEMOCHROM, CERULOP, TENA #### [facility] , #### PARVEEN, TSH3 #### [address] ALT [Catalytic activity/Vol] 56 U/L High 7-52 [facility] Comment on above: Performed By: #### I GG, SMAB, MITOM2, L-K MICRO, ALPHA PHEN, HEMOCHROM, CERULOP, TENA #### [facility] , #### PARVEEN, TSH3 #### [address] Anion gap [Moles/Vol] 14.3 mmol/L Normal 6.0-15.0 [facility] Comment on above: Performed By: #### I GG, SMAB, MITOM2, L-K MICRO, ALPHA PHEN, HEMOCHROM, CERULOP, TENA #### [facility] , #### PARVEEN, TSH3 #### [address] AST [Catalytic activity/Vol] 30 U/L Normal 13-39 [facility] Comment on above: Performed By: #### I GG, SMAB, MITOM2, L-K MICRO, ALPHA PHEN, HEMOCHROM, CERULOP, TENA #### [facility] , #### PARVEEN, TSH3 #### [address] Bilirubin [Mass/Vol] 0.8 mg/dL Normal 0.3-1.0 [facility] Comment on above: Performed By: #### I GG, SMAB, MITOM2, L-K MICRO, ALPHA PHEN, HEMOCHROM, CERULOP, TENA #### [facility] , #### PARVEEN, TSH3 #### [address] Calcium [Mass/Vol] 9.4 mg/dL Normal 8.6-10.3 [facility] Comment on above: Performed By: #### I GG, SMAB, MITOM2, L-K MICRO, ALPHA PHEN, HEMOCHROM, CERULOP, TENA #### [facility] , #### PARVEEN, TSH3 #### [address] Chloride [Moles/Vol] 107 mmol/L Normal 98-107 [facility] Comment on above: Performed By: #### I GG, SMAB, MITOM2, L-K MICRO, ALPHA PHEN, HEMOCHROM, CERULOP, TENA #### [facility] , #### PARVEEN, TSH3 #### [address] CO2 [Moles/Vol] 23.5 mmol/L Normal 21.0-31.0 [facility] Comment on above: Performed By: #### I GG, SMAB, MITOM2, L-K MICRO, ALPHA PHEN, HEMOCHROM, CERULOP, TENA #### [facility] , #### PARVEEN, TSH3 #### [address] Creatinine [Mass/Vol] 0.78 mg/dL Normal 0.70-1.30 [facility] Comment on above: Performed By: #### I GG, SMAB, MITOM2, L-K MICRO, ALPHA PHEN, HEMOCHROM, CERULOP, TENA #### [facility] , #### PARVEEN, TSH3 #### [facility] [address] [place] [address] [place] GFR/1.73 sq M.predicted MDRD (S/P/Bld) [Vol rate/Area] mL/min/{1.73_m2} Normal [facility] Comment on above: Performed By: #### I GG, SMAB, MITOM2, L-K MICRO, ALPHA PHEN, HEMOCHROM, CERULOP, TENA #### [facility] , #### PARVEEN, TSH3 #### [facility] [address] [place] [address] Globulin (S) [Mass/Vol] 2.7 g/dL Normal [facility] Comment on above: Performed By: #### I GG, SMAB, MITOM2, L-K MICRO, ALPHA PHEN, HEMOCHROM, CERULOP, TENA #### [facility] , #### PARVEEN, TSH3 #### [facility] [address] [place] [address] Glucose [Mass/Vol] 98 mg/dL Normal 70-100 [facility] Comment on above: Result Comment: [place] Glucose Reference Range is dependent on time and content of last meal. Glucose of more than 200 mg/dL in a nonstressed, ambulatory subject supports the diagnosis of Diabetes Mellitus. ADA recommended reference range Performed By: #### I GG, SMAB, MITOM2, L-K MICRO, ALPHA PHEN, HEMOCHROM, CERULOP, TENA #### [facility] , #### PARVEEN, TSH3 #### [facility] [address] [place] [address] Potassium [Moles/Vol] 3.8 mmol/L Normal 3.5-5.1 [facility] Comment on above: Performed By: #### I GG, SMAB, MITOM2, L-K MICRO, ALPHA PHEN, HEMOCHROM, CERULOP, TENA #### [facility] , #### PARVEEN, TSH3 #### [address] Protein [Mass/Vol] 7.1 g/dL Normal 6.4-8.9 [facility] Comment on above: Performed By: #### I GG, SMAB, MITOM2, L-K MICRO, ALPHA PHEN, HEMOCHROM, CERULOP, TENA #### [facility] , #### PARVEEN, TSH3 #### [address] Sodium [Moles/Vol] 141 mmol/L Normal 136-145 [facility] Comment on above: Performed By: #### I GG, SMAB, MITOM2, L-K MICRO, ALPHA PHEN, HEMOCHROM, CERULOP, TENA #### [facility] , #### PARVEEN, TSH3 #### [address] Urea nitrogen [Mass/Vol] 10 mg/dL Normal 7-25 [facility] Comment on above: Performed By: #### I GG, SMAB, MITOM2, L-K MICRO, ALPHA PHEN, HEMOCHROM, CERULOP, TENA #### [facility] , #### PARVEEN, TSH3 #### [address] Creatine Kinaseon 05-19-2023 CK [Catalytic activity/Vol] 112 U/L Normal 30-223 [facility] Comment on above: Result Comment: PERF ORMED BY: [place] [address] PATHOLOGIST HEATING AND VENTILATION ENGINEER LISA COOLEY M.D. Performed By: #### I GG, SMAB, MITOM2, L-K MICRO, ALPHA PHEN, HEMOCHROM, CERULOP, TENA #### [facility] , #### PARVEEN, TSH3 #### [address] [place] [address] [place] Creatine kinase [Enzymatic a ctivity/volume] in Serum or PlasmaOrdered By: Lewis Mirza on 05-19-2023 CK [Catalytic activity/Vol] 112 U/L 30-223 [facility] Creatinine [Mass/volume] in Serum or PlasmaOrdered By: Lewis Mirza on 05-19-2023 Creatinine [Mass/Vol] 0.78 mg/dL 0.70-1.30 [facility] DNA double strand Ab [Units/ volume] in SerumOrdered By: Lewis Mirza on 05-19-2023 DNA double strand Ab Qn (S) 3 [IU]/mL 0-9 [facility] Comment on above: Negative <5 Equivoca l 5 - 9 Positive >9 Dipstick and Microscopicon 0 05-19-2023 Appearance (U) Clear Normal Clear [facility] Comment on above: Order Comment: Reaso n for Exam Elevated LFTs Performed By: #### I GG, SMAB, MITOM2, L-K MICRO, ALPHA PHEN, HEMOCHROM, CERULOP, TENA #### [facility] , #### PARVEEN, TSH3 #### [facility] [address] [place] [address] [place] Bacteria,Urine None Seen Normal None Seen [facility] Comment on above: Order Comment: Reaso n for Exam Elevated LFTs Performed By: #### I GG, SMAB, MITOM2, L-K MICRO, ALPHA PHEN, HEMOCHROM, CERULOP, TENA #### [facility] , #### PARVEEN, TSH3 #### [facility] [address] [place] [address] [place] Bilirubin,Urine Negative Normal Negative [facility] Comment on above: Order Comment: Reaso n for Exam Elevated LFTs Performed By: #### I GG, SMAB, MITOM2, L-K MICRO, ALPHA PHEN, HEMOCHROM, CERULOP, TENA #### [facility] , #### PARVEEN, TSH3 #### [facility] [address] [place] [address] [place] Color (U) Yellow Normal Yellow [facility] Comment on above: Order Comment: Reaso n for Exam Elevated LFTs Performed By: #### I GG, SMAB, MITOM2, L-K MICRO, ALPHA PHEN, HEMOCHROM, CERULOP, TENA #### [facility] , #### PARVEEN, TSH3 #### [facility] [address] [place] [address] Glucose Ql (U) Normal Normal Normal [facility] Comment on above: Order Comment: Reaso n for Exam Elevated LFTs Performed By: #### I GG, SMAB, MITOM2, L-K MICRO, ALPHA PHEN, HEMOCHROM, CERULOP, TENA #### [facility] , #### PARVEEN, TSH3 #### [facility] [address] [place] [address] Hyaline Casts,Urine None Seen Normal 0-8 [facility] Comment on above: Order Comment: Reaso n for Exam Elevated LFTs Result Comment: PERF ORMED BY: [place] [address] PATHOLOGIST HEATING AND VENTILATION ENGINEER LISA COOLEY M.D. Performed By: #### I GG, SMAB, MITOM2, L-K MICRO, ALPHA PHEN, HEMOCHROM, CERULOP, TENA #### [facility] , #### PARVEEN, TSH3 #### [facility] [address] [place] [address] Ketones Ql (U) Negative Normal Negative [facility] Comment on above: Order Comment: Reaso n for Exam Elevated LFTs Performed By: #### I GG, SMAB, MITOM2, L-K MICRO, ALPHA PHEN, HEMOCHROM, CERULOP, TENA #### [facility] , #### PARVEEN, TSH3 #### [facility] [address] [place] [address] Leukocyte esterase Test strip Ql (U) Negative Normal Negative [facility] Comment on above: Order Comment: Reaso n for Exam Elevated LFTs Performed By: #### I GG, SMAB, MITOM2, L-K MICRO, ALPHA PHEN, HEMOCHROM, CERULOP, TENA #### [facility] , #### PARVEEN, TSH3 #### [facility] [address] [place] [address] Nitrite,Urine Negative Normal Negative [facility] Comment on above: Order Comment: Reaso n for Exam Elevated LFTs Performed By: #### I GG, SMAB, MITOM2, L-K MICRO, ALPHA PHEN, HEMOCHROM, CERULOP, TENA #### [facility] , #### PARVEEN, TSH3 #### [address] Occult Blood,Urine Negative Normal Negative [facility] Comment on above: Order Comment: Reaso n for Exam Elevated LFTs Performed By: #### I GG, SMAB, MITOM2, L-K MICRO, ALPHA PHEN, HEMOCHROM, CERULOP, TENA #### [facility] , #### PARVEEN, TSH3 #### [address] pH (U) 5.5 [pH] Normal 5.0-9.0 [facility] Comment on above: Order Comment: Reaso n for Exam Elevated LFTs Performed By: #### I GG, SMAB, MITOM2, L-K MICRO, ALPHA PHEN, HEMOCHROM, CERULOP, TENA #### [facility] , #### PARVEEN, TSH3 #### [facility] [address] [place] [address] Protein,Urine Negative Normal Negative [facility] Comment on above: Order Comment: Reaso n for Exam Elevated LFTs Performed By: #### I GG, SMAB, MITOM2, L-K MICRO, ALPHA PHEN, HEMOCHROM, CERULOP, TENA #### [facility] , #### PARVEEN, TSH3 #### [address] RBC,Urine 1-2 Normal 0-4 [facility] Comment on above: Order Comment: Reaso n for Exam Elevated LFTs Performed By: #### I GG, SMAB, MITOM2, L-K MICRO, ALPHA PHEN, HEMOCHROM, CERULOP, TENA #### [facility] , #### PARVEEN, TSH3 #### [address] Specificy Cougar,Urine 1.023 Normal 1.00 1-1.03 0 [facility] Comment on above: Order Comment: Reaso n for Exam Elevated LFTs Performed By: #### I GG, SMAB, MITOM2, L-K MICRO, ALPHA PHEN, HEMOCHROM, CERULOP, TENA #### [facility] , #### PARVEEN, TSH3 #### [address] Squamous Epithelial Cell,Urine None Seen Normal 0-2 [facility] Comment on above: Order Comment: Reaso n for Exam Elevated LFTs Performed By: #### I GG, SMAB, MITOM2, L-K MICRO, ALPHA PHEN, HEMOCHROM, CERULOP, TENA #### [facility] , #### PARVEEN, TSH3 #### [address] Urobilinogen,Urine Normal Normal Normal [facility] Comment on above: Order Comment: Reaso n for Exam Elevated LFTs Performed By: #### I GG, SMAB, MITOM2, L-K MICRO, ALPHA PHEN, HEMOCHROM, CERULOP, TENA #### [facility] , #### PARVEEN, TSH3 #### [address] WBC,Urine None Seen Normal 0-4 [facility] Comment on above: Order Comment: Reaso n for Exam Elevated LFTs Performed By: #### I GG, SMAB, MITOM2, L-K MICRO, ALPHA PHEN, HEMOCHROM, CERULOP, TENA #### [facility] , #### PARVEEN, TSH3 #### [address] [place] [address] [place] Eosinophils Auto (Bld) [#/Vo l]Ordered By: Lewis Mirza on 05-19-2023 Eosinophils (Bld) [#/Vol] 0.2 10*3/uL 0.0-0.45 [facility] Eosinophils/100 WBC Auto (Bl d)Ordered By: Lewis Mirza on 05-19-2023 Eosinophils/100 WBC (Bld) 2.7 % . [facility] Erythrocyte Sedimentation Ra andra 05-19-2023 ESR (Bld) [Velocity] 14 mm/h Normal 0-14 [facility] Comment on above: Result Comment: PERF ORMED BY: [place] [address] PATHOLOGIST HEATING AND VENTILATION ENGINEER LISA COOLEY M.D. Performed By: #### I GG, SMAB, MITOM2, L-K MICRO, ALPHA PHEN, HEMOCHROM, CERULOP, TENA #### [facility] , #### PARVEEN, TSH3 #### [address] Erythrocyte distribution wid th Auto (RBC) [Ratio]Ordered By: Lewis Mirza on 05-19-2023 Erythrocyte distribution width (RBC) [Ratio] 13.0 % 12.0-14.8 [facility] Erythrocyte sedimentation ra te by Photometric methodOrdered By: Lewis Mirza on 05-19-2023 ESR Photometric method (Bld) [Velocity] 14 mm/hr 0-14 [facility] Fibrillarin Ab [Presence] in SerumOrdered By: Lewis Mirza on 05-19-2023 Fibrillarin Ab Ql (S) Negative Negative [facility] [facility] Comment on above: This test was develo ped and its performance characteristicsdetermined by [facility]. It has not been cleared orapproved by the Food and Drug Administration.Performed at: [facility] [employer] [id number] [place] [id number] Director: Issa Thao MD, Phone: [phone] Globulin Calc (S) [Mass/Vol] Ordered By: Lewis Mirza on 05-19-2023 Globulin (S) [Mass/Vol] 2.7 g/dL F [facility] Glucose [Mass/volume] in Ser um or PlasmaOrdered By: Lewis Mirza on 05-19-2023 Glucose [Mass/Vol] 98 mg/dL 70-100 [facility] Comment on above: ADA recommended refe rence rangeRandom Glucose Reference Range is dependent on time and content of last meal. Glucose of more than 200 mg/dL in a nonstressed, ambulatory subject supports the diagnosis of Diabetes Mellitus. Hematocrit Auto (Bld) [Volum e fraction]Ordered By: Lewis Mirza on 05-19-2023 Hematocrit (Bld) [Volume fraction] 41.7 % 38.8-50.0 [facility] Hemoglobin [Mass/volume] in BloodOrdered By: Lewis Mirza on 05-19-2023 Hemoglobin (Bld) [Mass/Vol] 14.2 g/dL 13.0-17.0 [facility] Ketones Auto test strip (U) [Mass/Vol]Ordered By: Lewis Mirza on 05-19-2023 Ketones (U) [Mass/Vol] Negative Negative [facility] Laboratory - Serology - non- microOrdered By: Lewis Mirza on 05-19-2023 SCL-70 extractable nuclear Ab IA Qn (S) <0.2 AI 0.0-0.9 [facility] Laboratory - UrinalysisOrder ed By: Lewis Mirza on 05-19-2023 Hyaline casts LM Ql (Urine sed) None seen [LPF] 0-8 [facility] Leukocytes [#/volume] correc sirisha for nucleated erythrocytes in Blood by Automated counOrdered By: Lewis Mirza on 05-19-2023 WBC corrected for nucl RBC Auto (Bld) [#/Vol] 6.4 10*3/uL 4.1-10.5 [facility] Lymphocytes Auto (Bld) [#/Vo l]Ordered By: Lewis Mirza on 05-19-2023 Lymphocytes (Bld) [#/Vol] 2.1 10*3/uL 1.00-4.8 [facility] Lymphocytes/100 WBC Auto (Bl d)Ordered By: Lewis Mirza on 05-19-2023 Lymphocytes/100 WBC (Bld) 32.5 % . [facility] MCH Auto (RBC) [Entitic mass ]Ordered By: Lewis Mirza on 05-19-2023 MCH (RBC) [Entitic mass] 29.3 pg 27.5-35.2 [facility] MCHC Auto (RBC) [Mass/Vol]Or dered By: Lewis Mirza on 05-19-2023 MCHC (RBC) [Mass/Vol] 34.1 g/dL 32.5-35.6 [facility] MCV Auto (RBC) [Entitic vol] Ordered By: Lewis Mirza on 05-19-2023 MCV (RBC) [Entitic vol] 86.0 fL 83.5-101 F [facility] Monocytes Auto (Bld) [#/Vol] Ordered By: Lewis Mirza on 05-19-2023 Monocytes (Bld) [#/Vol] 0.7 10*3/uL 0.0-0.8 [facility] Monocytes/100 WBC Auto (Bld) Ordered By: Lewis Mirza on 05-19-2023 Monocytes/100 WBC (Bld) 10.7 % . F [facility] Neutrophils Auto (Bld) [#/Vo l]Ordered By: Lewis Mirza on 05-19-2023 Neutrophils (Bld) [#/Vol] 3.4 10*3/uL 1.8-7.7 [facility] Neutrophils/100 WBC Auto (Bl d)Ordered By: Lewis Mirza on 05-19-2023 Neutrophils/100 WBC (Bld) 53.4 % . [facility] Nitrite Test strip Ql (U)Ord ered By: Lewis Mirza on 05-19-2023 Nitrite Ql (U) Negative Negative [facility] No Panel InformationOrdered By: Lewis Mirza on 05-19-2023 Estimated GFR (CKD-EPI) > 60.0 mL/Min [facility] Creatinine Clearance (Chem N/A [facility] SECURITIES RESEARCH ANALYST Antibody 0.6 AI 0.0-0.9 [facility] Serology Comments N/A [facility] Total Complement (CH50) 49 U/mL >41 F [facility] Comment on above: Age Male Female 1 - 30 days [...] table above to determine out of range values.Performed at: [facility] [address] [id number] Director: Zechariah Paula PhD, Phone: [phone] Nucleated erythrocytes [Pres ence] in Blood by Automated countOrdered By: Lewis Mirza on 05-19-2023 Nucleated RBC Auto Ql (Bld) 0.2 /100{WBC} 0-0.5 [facility] PM-SCL Antibodieson 05-19-19 24 ANDREE PM-Scl Antibody <20 Normal <20 [facility] Comment on above: Result Comment: This test was developed and its performance characteristics determined by [facility]. It has not been cleared or approved by the Food and Drug Administration. Negative: <20 Weak Positive: 20 - 39 Moderate Positive: 40 - 80 Strong Positive: >80 Performed at: [facility] [address] [place] [id number] Frame Feeder: Issa Thao MD, Phone: [phone] Performed By: #### I GG, SMAB, MITOM2, L-K MICRO, ALPHA PHEN, HEMOCHROM, CERULOP, TENA #### [facility] , #### PARVEEN, TSH3 #### [facility] [address] [place] [address] PM-Scl antibody assay by imm unodiffusionOrdered By: Lewis Mirza on 05-19-2023 PM-SCL extractable nuclear Ab Immune diff (S) [Mass/Vol] <20 Units <20 [facility] Comment on above: This test was develo ped and its performance characteristicsdetermined by [employer]. It has not been cleared orapproved by the Food and Drug Administration. Negative: <20 Weak Positive: 20 - 39 Moderate Positive: 40 - 80 Strong Positive: >80Performed at: [facility] [id number] [place], [place] [id number] Director: Issa Thao MD, Phone: [phone] Platelet mean volume Auto (B ld) [Entitic vol]Ordered By: Lewis Mirza on 05-19-2023 Platelet mean volume (Bld) [Entitic vol] 9.2 fL 6.6-10.1 [facility] Platelets Auto (Bld) [#/Vol] Ordered By: Lewis Mirza on 05-19-2023 Platelets (Bld) [#/Vol] 254 10*3/uL 150-450 [facility] Potassium [Moles/volume] in Serum or PlasmaOrdered By: Lewis Mirza on 05-19-2023 Potassium [Moles/Vol] 3.8 mmol/L 3.5-5.1 [facility] Protein Auto test strip (U) [Mass/Vol]Ordered By: Lewis Mirza on 05-19-2023 Protein (U) [Mass/Vol] Negative Negative [facility] Protein [Mass/volume] in Ser um or PlasmaOrdered By: Lewis Mirza on 05-19-2023 Protein [Mass/Vol] 7.1 g/dL 6.4-8.9 [facility] RBC Auto (Bld) [#/Vol]Ordere d By: Lewis Mirza on 05-19-2023 RBC (Bld) [#/Vol] 4.85 10*6/uL 3.90-5.60 [facility] RNA Polymerase IIion 024 RNA Polymerase IIi <20 Normal <20 [facility] Comment on above: Result Comment: Nega tive: <20 Weak Positive: 20 - 39 Moderate Positive: 40 - 80 Strong Positive: >80 Performed at: [facility] [address] [place], [place] [id number] Frame Feeder: Issa Thao MD, Phone: [phone] PERFORMED BY: [place] [address] [place] [address] PATHOLOGIST HEATING AND VENTILATION ENGINEER LISA COOLEY M.D. Performed By: #### I GG, SMAB, MITOM2, L-K MICRO, ALPHA PHEN, HEMOCHROM, CERULOP, TENA #### [facility] , #### PARVEEN, TSH3 #### [address] RNA polymerase III IgG Ab [U nits/volume] in Serum or Plasma by ImmunoassayOrdered By: Lewis Mirza on 05-19-2023 RNA polymerase III IgG IA Qn <20 Units <20 [facility] Comment on above: Negative: <20 Weak P ositive: 20 - 39 Moderate Positive: 40 - 80 Strong Positive: >80Performed at: [facility] [employer] [address] [id number] Director: Issa Thao MD, Phone: [phone] Scleroderma 70 Antibodieson 05-19-2023 Scleroderma 70 Antibodies <0.2 Normal 0.0-0.9 [facility] Comment on above: Performed By: #### I GG, SMAB, MITOM2, L-K MICRO, ALPHA PHEN, HEMOCHROM, CERULOP, TENA #### [facility] , #### PARVEEN, TSH3 #### [address] Serum Newberry extractable nucl ear antigen (ANDREE) antibody assay (units/volume)Ordered By: Lewis Mirza on 05-19-2023 Newberry extractable nuclear Ab Qn (S) <0.2 AI 0.0-0.9 [facility] Serum centromere protein B a ntibody assay (units/volume)Ordered By: Lewis Mirza on 05-19-2023 Centromere protein B Ab Qn (S) <0.2 AI 0.0-0.9 [facility] Comment on above: Performed at: - [address] [id number] Director: Zechariah Paula PhD, Phone: [phone] Serum or plasma albumin/glob ulin mass ratioOrdered By: Lewis Mirza on 05-19-2023 Albumin/Globulin [Mass ratio] 1.6 {ratio} [facility] Serum or plasma anion gap de terminationOrdered By: Lewis Mirza on 05-19-2023 Anion gap [Moles/Vol] 14.3 mmol/L 6.0-15.0 [facility] Serum or plasma complement C 3 measurement (mass/volume)Ordered By: Lewis Mirza on 05-19-2023 Complement C3 [Mass/Vol] 161 mg/dL 82-167 [facility] Comment on above: Performed at: [facility] [id number] [place], [place] [id number] Director: Zechariah Paula PhD, Phone: [phone] Serum or plasma complement C 4 measurement (mass/volume)Ordered By: Lewis Mirza on 05-19-2023 Complement C4 [Mass/Vol] 24 mg/dL 12-38 [facility] Sodium [Moles/volume] in Ser um or PlasmaOrdered By: Lewis Mirza on 05-19-2023 Sodium [Moles/Vol] 141 mmol/L 136-145 [facility] Specific gravity Auto test s trip (U) [Rel density]Ordered By: Lewis Mirza on 05-19-2023 Specific gravity (U) [Rel density] 1.023 1.001-1.03 0 [facility] Squamous epithelial cells de tection in urine sediment by light microscopyOrdered By: Lewis Mirza on 05-19-2023 Epithelial cells.squamous LM Ql (Urine sed) None seen [HPF] 0-2 [facility] Th-To Ab [Units/volume] in S saima by Line blotOrdered By: Lewis Mirza on 05-19-2023 Th-To Ab Line blot Qn (S) Negative Negative [facility] Comment on above: This test was develo ped and its performance characteristicsdetermined by [facility]. It has not been cleared orapproved by the Food and Drug Administration.Performed at: [facility] [address] [place], [place] [id number] Director: Issa Thao MD, Phone: [phone] Th/To Antibodyon 01-09-2024 Th/To Antibody Negative Normal Negative [facility] Comment on above: Result Comment: This test was developed and its performance characteristics determined by [facility]. It has not been cleared or approved by the Food and Drug Administration. Performed at: [facility] [address] [place] [id number] Frame Feeder: Issa Thao MD, Phone: [phone] Performed By: #### I GG, SMAB, MITOM2, L-K MICRO, ALPHA PHEN, HEMOCHROM, CERULOP, TENA #### [facility] , #### PARVEEN, TSH3 #### [facility] [address] [place] [address] Thyroid Stimulating Hormoneo n 05-19-2023 TSH Qn 1.01 m[IU]/L Normal 0.45-5.33 [facility] Comment on above: Result Comment: PERF ORMED BY: [place] [address] PATHOLOGIST HEATING AND VENTILATION ENGINEER LISA COOLEY M.D. Performed By: #### I GG, SMAB, MITOM2, L-K MICRO, ALPHA PHEN, HEMOCHROM, CERULOP, TENA #### [facility] , #### PARVEEN, TSH3 #### [facility] [address] [place] [address] Thyrotropin [Units/volume] i n Serum or PlasmaOrdered By: Lewis Mirza on 05-19-2023 TSH Qn 1.01 m[IU]/L 0.45-5.33 [facility] U3 Rnpon 05-19-2023 U3 Check Cashier Negative Normal Negative [facility] Comment on above: Result Comment: This test was developed and its performance characteristics determined by [facility]. It has not been cleared or approved by the Food and Drug Administration. Performed at: [facility] [address] [place] [id number] Frame Feeder: Issa Thao MD, Phone: [phone] PERFORMED BY: [place] [address] PATHOLOGIST HEATING AND VENTILATION ENGINEER LISA COOLEY M.D. Performed By: #### I GG, SMAB, MITOM2, L-K MICRO, ALPHA PHEN, HEMOCHROM, CERULOP, TENA #### [facility] , #### PARVEEN, TSH3 #### [facility] [address] Urea nitrogen [Mass/volume] in Serum or PlasmaOrdered By: Lewis Mirza on 05-19-2023 Urea nitrogen [Mass/Vol] 10 mg/dL 12-02 [facility] Urine bacteria detection by automated methodOrdered By: Lewis Mirza on 05-19-2023 Bacteria Auto Ql (U) None seen None Seen [facility] Urine clarity by refractomet ry automatedOrdered By: Lewis Mirza on 05-19-2023 Clarity Refractometry automated (U) Clear Clear [facility] Urine glucose measurement by automated test strip (mass/volume)Ordered By: Lewis Mirza on 05-19-2023 Glucose Auto test strip (U) [Mass/Vol] Normal mg/dL Normal [facility] Urine hemoglobin detection b y automated test stripOrdered By: Lewis Mirza on 05-19-2023 Hemoglobin Auto test strip Ql (U) Negative Negative [facility] Urine leukocyte esterase det ection by automated test stripOrdered By: Lewis Mirza on 05-19-2023 Leukocyte esterase Auto test strip Ql (U) Negative Negative [facility] Urobilinogen Auto test strip (U) [Mass/Vol]Ordered By: Lewis Mirza on 05-19-2023 Urobilinogen (U) [Mass/Vol] Normal mg/dL Normal [facility] WBC Auto (Bld) [#/Vol]Ordere d By: Lewis Mirza on 05-19-2023 WBC (Bld) [#/Vol] 6.4 10*3/uL 4.1-10.5 [facility] XR knee BI 2Von 05-19-2023 XR knee BI 2V [facility] [address] [place] [address] [place] [address] XRay Report Signed Patient: Jet Duncan MR#: [id number] 0 : 2005 Acct:[id number] Age/Sex: 17 / M ADM Date: 05/19/23 Loc: ICXD Room: Type: [facility] Attending Dr: Lewis Mirza MD Copies to: Lewis Mirza MD Ordering Provider: Lewis Mirza MD Date of Service: 05/19/23 XR/XR knee BI 2V: PAIN ([id number]) XR/XR thoracic spine 3V*: PAIN THORACIC SPINE [...] KNEES. Impression dictated by: Ki Davila Jr., DAlexanderOAlexander05/19/2023 2:25 PM Dictation Location: [place] [address] Transcribed By: [facility] 05/19/23 1425 Dictated By: Ki Davila Jr, DO 05/19/23 142 Signed By: 05/19/23 1425 [facility] pH Auto test strip (U)Ordere d By: Lewis Mirza on 05-19-2023 pH (U) 5.5 [pH] 5.0-9.0 [facility] Miscellaneouson 04-30-2023 Miscellaneous [id number] 2042 [id number]#1.00O TGTIFF [facility] Outside Recordson 04-22-2023 Outside Records [id number] [id number]#1.00OTGT IFF [facility] TENA Antinuclear Antibodieson 04-21-2023 Antinuclear Abs, IFA Positive Critically abnormal . [facility] Comment on above: Order Comment: Reaso n for Exam Elevated LFTs Result Comment: Nega tive <1:80 Borderline 1:80 Positive >1:80 Performed By: #### I GG, SMAB, MITOM2, L-K MICRO, ALPHA PHEN, HEMOCHROM, CERULOP, TENA #### [facility] , #### PARVEEN, TSH3 #### [facility] [address] Homogeneous Pattern 1:160 High . [facility] Comment on above: Order Comment: Reaso n for Exam Elevated LFTs Result Comment: ICAP nomenclature: AC-1 Performed By: #### I GG, SMAB, MITOM2, L-K MICRO, ALPHA PHEN, HEMOCHROM, CERULOP, TENA #### [facility] , #### PARVEEN, TSH3 #### [facility] [address] Note 1 Normal . [facility] Comment on above: Order Comment: Reaso n for Exam Elevated LFTs Result Comment: Nola slade Potential Disease Association Homogeneous Systemic Lupus Erythematosus, Drug Induced Systemic Lupus Erythematosus, Chronic Autoimmune hepatitis, Juvenile Idiopathic Arthritis Speckled Sjogren Syndrome, Systemic Lupus Erythematosus, Subacute Cutaneous Lupus, Lupus, Congenital Heart Block, Mixed Connective Tissue Disease, Scleroderma-diffuse, Scleroderma-Autoimmune Myositis Overlap Syndrome, Systemic Lupus Maegbamqgssho-Qsqkzuhkakl-Ucigricmxa Myositis Overlap Syndrome, Systemic Autoimmune Rheumatic Disease, [...] Scleroderma, Antiphospholipid Syndrome Performed at: - [facility] [address] [id number] Frame Feeder: Zechariah Paula PhD, Phone: [phone] Performed By: #### I GG, SMAB, MITOM2, L-K MICRO, ALPHA PHEN, HEMOCHROM, CERULOP, TENA #### [facility] , #### PARVEEN, TSH3 #### [address] Actin smooth muscle IgG Ab [ Units/volume] in SerumOrdered By: Wilver Felton on 04-21-2023 Actin smooth muscle IgG Qn (S) 13 Units 0-19 [facility] Comment on above: Negative 0 - 19 Weak positive 20 - 30 Moderate to strong positive >30 Actin Antibodies are found in 52-85% of patients with autoimmune hepatitis or chronic active hepatitis and in 22% of patients with primary biliary cirrhosis. Kqhch-1-Inqdlmuxosy Phenotyp meri 04-21-2023 Alpha 1 Anti-Trypsin 139 mg/dL Normal 95-164 [facility] Comment on above: Order Comment: Reaso n for Exam Elevated LFTs Performed By: #### I GG, SMAB, MITOM2, L-K MICRO, ALPHA PHEN, HEMOCHROM, CERULOP, TENA #### [facility] , #### PARVEEN, TSH3 #### [address] Phenotype (P1) MM Normal . [facility] Comment on above: Order [...] Ranges used to confirm phenotype. Performed at: [address] [id number] Frame Feeder: Zechariah Paula PhD, Phone: [phone] Performed at: [address] [id number] Frame Feeder: Aston Omalley MD, Phone: [phone] Performed By: #### I GG, SMAB, MITOM2, L-K MICRO, ALPHA PHEN, HEMOCHROM, CERULOP, TENA #### [facility] , #### PARVEEN, TSH3 #### [facility] [address] Blood or tissue HFE gene mut ations identification by molecular genetics methodOrdered By: Wilver Felton on 04-21-2023 HFE gene targeted mutation analysis Molgen Nom (Bld/Tiss) See comment . [facility] Comment on above: Result:c.845G>A (p.C md566Bsw) - Not Detectedc.187C>G (p.Ffp03Qpb) - Not Detectedc.193A>T (p.Azf63Dkw) - Not DetectedNot associated with increased risk [...] recommended for patientswho are homozygous for c.845G>A (p.Smm983Wox) and have yetto experience clinical symptoms.Comments:The most common HFE variants associated with hereditaryhemochromatosis are c.845G>A (p.Gqd170Sjy), c.187C>G(p.Xxn44Eky), c.193A>T (p.Htz16Eex). While patientshomozygous for c.845G>A (p.Rwi030Qyq) are the most likelyto present clinical symptoms, less than 10% developclinically significant iron overload with tissue and organdamage.Genetic counseling is recommended to discuss the potentialclinical implications of positive results, as well asrecommendations for testing family members.Genetic Coordinators are available for health careproviders to discuss results at [phone] Details:Three variants analyzed:c.845G>A (p.Lvy511Zfh), commonly referred to as C282Yc.187C>G (p.Rye14Rvh), commonly referred to as H63Dc.193A>T (p.Lwr29Vvx), commonly referred to as O16NSoqmcxr/Limitations:DNA Analysis of the HFE gene (NM_000410.4) was [...] was developed and its performancecharacteristics determined by [facility]. It has not beencleared or approved by the Food and Drug Administration.References:Paul BR, Joseph PC, Mohini KV, Christiano LW, Erick ;[employer] Association for the Study of Liver Diseases.Diagnosis and management of hemochromatosis: 2011 practiceguideline by the [employer] Association for the Study ofLiver Diseases. Hepatology. 2010;54(1):328-43. doi:10.1002/hep.63161. PMID: 84239263; PMCID: [id number].Surekha G, Shorty P, Hailey HENDERSON, Tor H, Corrine O,Simón S, Guerrero I, Alireza M, Holly S. [facility] best practiceguidelines for the molecular genetic diagnosis ofhereditary hemochromatosis (HH). Eur J Hum Meliza. 2016Apr;24(4):479-95. doi: 10.1038/ejhg.2015.128. Epub 2014. PMID: 61711417; PMCID: [id number]. Ceruloplasminon 04-21-2023 Ceruloplasmin 23.7 mg/dL Normal 16.0-31.0 [facility] Comment on above: Order Comment: Reaso n for Exam Elevated LFTs Result Comment: Perf ormed at: - [facility] [address] [id number] Frame Feeder: Zechariah Paula PhD, Phone: [phone] PERFORMED BY: [address] [place] [address] PATHOLOGIST HEATING AND VENTILATION ENGINEER LISA COOLEY M.D. Performed By: #### I GG, SMAB, MITOM2, L-K MICRO, ALPHA PHEN, HEMOCHROM, CERULOP, TENA #### [facility] , #### PARVEEN, TSH3 #### [facility] [address] [place] [address] [place] Ferritinon 04-21-2023 Ferritin [Mass/Vol] 59.0 ng/mL Normal 23.9-336.2 [facility] Comment on above: Order Comment: Reaso n for Exam Elevated LFTs Reason for Exam Fatigue Performed By: #### I GG, SMAB, MITOM2, L-K MICRO, ALPHA PHEN, HEMOCHROM, CERULOP, TENA #### [facility] , #### PARVEEN, TSH3 #### [address] Ferritin [Mass/volume] in Se rum or PlasmaOrdered By: Wilver Felton on 04-21-2023 Ferritin [Mass/Vol] 59.0 ng/mL 23.9-336.2 [facility] Hereditary Hemochromatosis,D NAon 04-21-2023 Hereditary Hemochromatosis Normal . [facility] Comment on above: Order Comment: Reaso n for Exam Elevated LFTs Result Comment: Resu lt: c.845G>A (p.Qdm382Bmu) - Not Detected c.187C>G (p.Xql08Nlf) - Not Detected c.193A>T (p.Fdi66Bat) - Not Detected Not associated with increased [...] for patients who are homozygous for c.845G>A (p.Mys126Voq) and have yet to experience clinical symptoms. Comments: The most common HFE variants associated with hereditary hemochromatosis are c.845G>A (p.Hqo816Fjz), c.187C>G (p.Fsb54Fdv), c.193A>T (p.Nbd03Uid). While patients homozygous for c.845G>A (p.Wni855Hpp) are the most likely to present clinical symptoms, less than 10% develop clinically significant iron overload with tissue and organ damage. Genetic counseling is recommended to discuss the potential clinical implications of positive results, as well as recommendations for testing family members. Genetic Coordinators are available for health care providers to discuss results at [phone] Test Details: Three variants analyzed: c.845G>A (p.Gjq481Hwv), commonly referred to as C282Y c.187C>G (p.Abm51Kqq), commonly referred to as H63D c.193A>T (p.Yhn43Uwn), commonly referred to as S65C Methods/Limitations: DNA [...] developed and its performance characteristics determined by [facility]. It has not been cleared or approved by the Food and Drug Administration. References: Paul BR, Joseph PC, Mohini KV, Christiano LW, Erick ; [employer] Association for the Study of Liver Diseases. Diagnosis and management of hemochromatosis: 2011 practice guideline by the [employer] Association for the Study of Liver Diseases. Hepatology. 2011 Julius;54(1):328-43. doi: 10.1002/hep.38550. PMID: 05170530; PMCID: [id number]. Surekha G, Shorty P, Hailey HENDERSON, Tor H, Corrine O, Simón S, Guerrero I, Alireza Bradford, Holly Sherwood. [facility] best practice guidelines for the molecular genetic diagnosis of hereditary hemochromatosis (HH). Eur J Hum Meliza. 2016 Aug;24(4):479-95. doi: 10.1038/ejhg.2015.128. Epub 2014Nov 15. PMID: 92248479; PMCID: [id number]. Performed By: #### I GG, SMAB, MITOM2, L-K MICRO, ALPHA PHEN, HEMOCHROM, CERULOP, TENA #### [facility] , #### PARVEEN, TSH3 #### [address] Reviewed by: Normal . [facility] Comment on above: Order Comment: Reaso n for Exam Elevated LFTs Result Comment: Tech nical Component [facility] at [facility] Professional Component performed by: Daniella Birch, Ph.D., [facility] Director, Molecular Genetics [address] [place] [address] Performed at: - [facility] [address] [place], [place] [id number] Frame Feeder: Dinesh Davis [facility], Phone: [phone] PERFORMED BY: [place] [address] PATHOLOGIST HEATING AND VENTILATION ENGINEER LISA COOLEY M.D. Performed By: #### I GG, SMAB, MITOM2, L-K MICRO, ALPHA PHEN, HEMOCHROM, CERULOP, TENA #### [facility] , #### PARVEEN, TSH3 #### [address] IgG [Mass/volume] in Serum o r PlasmaOrdered By: Wilver Felton on 04-21-2023 IgG [Mass/Vol] 1272 mg/dL [phone] [facility] Comment on above: Performed at: [facility] [address] [id number] Director: Zechariah Paula PhD, Phone: [phone] Immunoglobulin Asaf 3 Immunoglobulin G 1272 mg/dL Normal 671-1456 [facility] Comment on above: Order Comment: Reaso n for Exam Elevated LFTs Result Comment: Perf ormed at: [facility] [address] [id number] Frame Feeder: Zechariah Paula PhD, Phone: [phone] Performed By: #### I GG, SMAB, MITOM2, L-K MICRO, ALPHA PHEN, HEMOCHROM, CERULOP, TENA #### [facility] , #### PARVEEN, TSH3 #### [facility] [address] [place] [address] Liver-Kidney Microsomal Abon 04-21-2023 Liver-Kidney Microsomal Ab 1.5 Normal 0.0-20.0 [facility] Comment on above: Order Comment: Reaso n for Exam Elevated LFTs Result Comment: Nega tive 0.0 - 20.0 Equivocal 20.1 - 24.9 Positive >24.9 LKM type 1 antibodies are detected in patients with autoimmune hepatitis type 2 and in up to 8% of patients with chronic HCV infection. Performed at: [facility] [address] [id number] Frame Feeder: Zechariah Paula PhD, Phone: [phone] Performed By: #### I GG, SMAB, MITOM2, L-K MICRO, ALPHA PHEN, HEMOCHROM, CERULOP, TENA #### [facility] , #### PARVEEN, TSH3 #### [facility] [address] [place] [address] [place] Mitochondrial (M2) Antibodyo n 04-21-2023 Mitochondrial (M2) Antibody <20.0 Normal 0.0-20.0 [facility] Comment on above: Order Comment: Reaso n for Exam Elevated LFTs Result Comment: Nega tive 0.0 - 20.0 Equivocal 20.1 - 24.9 Positive >24.9 Mitochondrial (M2) Antibodies are found in 90-96% of patients with primary biliary cirrhosis. Performed By: #### I GG, SMAB, MITOM2, L-K MICRO, ALPHA PHEN, HEMOCHROM, CERULOP, TENA #### [facility] , #### PARVEEN, TSH3 #### [address] No Panel InformationOrdered By: Wilver Felton on 04-21-2023 Anti-Nuclear Antibody Comment 2 See comment . [facility] Comment on above: Pattern Potential Di sease Association Homogeneous Systemic Lupus Erythematosus, Drug Induced Systemic Lupus Erythematosus, Chronic Autoimmune hepatitis, Juvenile Idiopathic Arthritis Speckled Sjogren Syndrome, Systemic Lupus Erythematosus, Subacute Cutaneous Lupus, Lupus, Congenital Heart Block, Mixed Connective Tissue Disease, Scleroderma-diffuse, Scleroderma-Autoimmune Myositis Overlap Syndrome, Systemic Lupus Niyshsflnwhgh-Fxnqmrhozbr-Kgaucjkwod Myositis Overlap Syndrome, Systemic Autoimmune Rheumatic Disease, [...] Cytopenias, Linear Scleroderma, Antiphospholipid Syndrome Performed at: [facility] [address] [id number] Director: Zechariah Paula PhD, Phone: [phone] Hemochromatosis Note See comment . [facility] Comment on above: Technical Component performed at [facility] RTPProfessional Component performed by:Daniella Birch, Ph.D., FACMGDirector, Molecular Zvnkenuh[address] [facility] [place] [address]Zedamppgf at: [facility] [id number] [place], [place] [id number] Director: Dinesh Davis [facility], Phone: [phone] Serum aabfr-5-cyccfjdvpaa me asurementOrdered By: Imad Asaad on 04-21-2023 Alpha 1 antitrypsin [Mass/Vol] 139 mg/dL 95-164 [facility] Serum homogeneous pattern an tinuclear antibody (TENA) titerOrdered By: Imad Asaad on 04-21-2023 Homogenous nuclear Ab pattern (S) [Titer] 1:160 . [facility] Comment on above: ICAP nomenclature: A C-1 Serum mitochondria M2 IgG an tibody assay (units/volume)Ordered By: Imad Asaad on 04-21-2023 Mitochondria M2 IgG Qn (S) <20.0 Units 0.0-20.0 [facility] Comment on above: Negative 0.0 - 20.0 Equivocal 20.1 - 24.9 Positive >24.9Mitochondrial (M2) Antibodies are found in 90-96% ofpatients with primary biliary cirrhosis. Serum nuclear antibody titer Ordered By: Wilver Felton on 04-21-2023 Nuclear Ab (S) [Titer] Positive . [facility] Comment on above: Negative <1:80 Borde rline 1:80 Positive >1:80 Serum or plasma alpha 1 anti trypsin phenotyping identification by immunofixationOrdered By: Wilver Felton on 04-21-2023 Alpha 1 antitrypsin phenotyping Immunofixation Nom Mm . [facility] Comment on above: Phenotype Population A-1-AT [...] reference. Ranges used to confirm phenotype.Performed at: - [facility] [address] [id number] Director: Zechariah Paula PhD, Phone: [phone] at: [facility] [place] [facility] [address] [id number] Director: Aston Omalley MD, Phone: [phone] Serum or plasma ceruloplasmi n measurement (mass/volume)Ordered By: Wilver Felton on 04-21-2023 Ceruloplasmin [Mass/Vol] 23.7 mg/dL 16.0-31.0 [facility] Comment on above: Performed at: [facility] [address] [place] [id number] Director: Zechariah Paula PhD, Phone: [phone] Serum or plasma lipoprotein a measurement (moles/volume)Ordered By: Wilver Felton on 04-21-2023 Lipoprotein a [Moles/Vol] 1.5 Units 0.0-20.0 [facility] Comment on above: Negative 0.0 - 20.0 Equivocal 20.1 - 24.9 Positive >24.9LKM type 1 antibodies are detected in patients withautoimmune hepatitis type 2 and in up to 8% ofpatients with chronic HCV infection.Performed at: - [facility] [id number] [place], [place] [id number] Director: Zechariah Paula PhD, Phone: [phone] Smooth Muscle Antibodyon Smooth Muscle Antibody 13 Normal 0-19 [facility] Comment on above: Order Comment: Reaso [...] #### [facility] , #### PARVEEN, TSH3 #### [facility] [address] [place] [address] Thyroid Stimulating Hormoneo n 04-21-2023 TSH Qn 1.24 m[IU]/L Normal 0.45-5.33 [facility] Comment on above: Order Comment: Reaso n for Exam Elevated LFTs Reason for Exam Fatigue Result Comment: PERF ORMED BY: [place] [address] PATHOLOGIST HEATING AND VENTILATION ENGINEER LISA COOLEY M.D. Performed By: #### I GG, SMAB, MITOM2, L-K MICRO, ALPHA PHEN, HEMOCHROM, CERULOP, TENA #### [facility] , #### PARVEEN, TSH3 #### [facility] [address] [place] [id number] [facility] Thyrotropin [Units/volume] i n Serum or PlasmaOrdered By: Imad Asaad on 04-21-2023 TSH Qn 1.24 m[IU]/L 0.45-5.33 [facility] Miscellaneouson 04-07-2023 Miscellaneous [id number]#1.00OT GTIFF [facility] Miscellaneous [id number]#1.00OT GTIFF [facility] Outside Recordson 03-24-2023 Outside Records [id number]#1.00OTG TIFF [facility] Alanine aminotransferase [En zymatic activity/volume] in Serum or PlasmaOrdered By: Imad Asaad on 03-19-2023 ALT [Catalytic activity/Vol] 48 U/L 7-52 [facility] Albumin [Mass/volume] in Ser um or Plasma by Bromocresol green (BCG) dye binding methoOrdered By: Imad Asaad on 03-19-2023 Albumin BCG dye [Mass/Vol] 4.3 g/dL 3.5-5.7 [facility] Alkaline phosphatase [Enzyma tic activity/volume] in Serum or PlasmaOrdered By: Imad Asaad on 03-19-2023 ALP [Catalytic activity/Vol] 60 U/L 34-104 [facility] Aspartate aminotransferase [ Enzymatic activity/volume] in Serum or PlasmaOrdered By: Imad Asaad on 03-19-2023 AST [Catalytic activity/Vol] 27 U/L 13-39 [facility] Bilirubin.direct [Mass/volum e] in Serum or PlasmaOrdered By: Imad Asaad on 03-19-2023 Bilirubin.direct [Mass/Vol] 0.10 mg/dL 0.03-0.18 [facility] Bilirubin.total [Mass/volume ] in Serum or PlasmaOrdered By: Imad Asaad on 03-19-2023 Bilirubin [Mass/Vol] 0.8 mg/dL 0.3-1.0 [facility] Globulin Calc (S) [Mass/Vol] Ordered By: Imad Asaad on 03-19-2023 Globulin (S) [Mass/Vol] 2.8 g/dL F [facility] Hep B Real-Time PCR, Quanton 03-19-2023 HBV As IU/mL Not detected Normal . [facility] Comment on above: Order Comment: Reaso n for Exam Elevated LFTs Reason for Exam Fatigue Performed By: #### I GG, SMAB, MITOM2, L-K MICRO, ALPHA PHEN, HEMOCHROM, CERULOP, TENA #### [facility] , #### PARVEEN, TSH3 #### [address] Log10 HBV (As IU/mL) Normal . [facility] Comment on above: Order Comment: Reaso n for Exam Elevated LFTs Reason for Exam Fatigue Result Comment: Resu lt Units: log10 IU/mL Unable to calculate result since non-numeric result obtained for component test. Performed By: #### I GG, SMAB, MITOM2, L-K MICRO, ALPHA PHEN, HEMOCHROM, CERULOP, TENA #### [facility] , #### PARVEEN, TSH3 #### [address] Test Information: Normal . [facility] Comment on above: Order Comment: Reaso n for Exam Elevated LFTs Reason for Exam Fatigue Result Comment: The reportable range for this assay is 10 IU/mL to 1 billion IU/mL. Performed at: [address] [id number] Frame Feeder: Aston Omalley MD, Phone: [phone] PERFORMED BY: [place] [address] PATHOLOGIST HEATING AND VENTILATION ENGINEER LISA COOLEY M.D. Performed By: #### I GG, SMAB, MITOM2, L-K MICRO, ALPHA PHEN, HEMOCHROM, CERULOP, TENA #### [facility] , #### PARVEEN, TSH3 #### [address] [address] [place] Hep C Ab wRfx to Qnt PCRon 1 05-19-2022 Hepatitis C Virus Antibody Non-Reactive Normal Non Reactive [facility] Comment on above: Order Comment: Reaso n for Exam Elevated LFTs Reason for Exam Fatigue Performed By: #### I GG, SMAB, MITOM2, L-K MICRO, ALPHA PHEN, HEMOCHROM, CERULOP, TENA #### [facility] , #### PARVEEN, TSH3 #### [facility] [address] [place] [address] Interpretation Hepatitis C Normal . [facility] Comment on above: Order [...] #### [facility] , #### PARVEEN, TSH3 #### [facility] [address] [place] [address] Hepatic Panelon 03-19-2023 Albumin [Mass/Vol] 4.3 g/dL Normal 3.5-5.7 [facility] Comment on above: Order Comment: Reaso n for Exam Elevated LFTs Reason for Exam Fatigue Performed By: #### I GG, SMAB, MITOM2, L-K MICRO, ALPHA PHEN, HEMOCHROM, CERULOP, TENA #### [facility] , #### PARVEEN, TSH3 #### [facility] [address] [place] [address] Albumin/Globulin [Mass ratio] 1.5 {ratio} Normal [facility] Comment on above: Order Comment: Reaso n for Exam Elevated LFTs Reason for Exam Fatigue Performed By: #### I GG, SMAB, MITOM2, L-K MICRO, ALPHA PHEN, HEMOCHROM, CERULOP, TENA #### [facility] , #### PARVEEN, TSH3 #### [facility] [address] [place] [address] ALP [Catalytic activity/Vol] 60 U/L Normal 34-104 [facility] Comment on above: Order Comment: Reaso n for Exam Elevated LFTs Reason for Exam Fatigue Result Comment: PERF ORMED BY: [place] [address] PATHOLOGIST HEATING AND VENTILATION ENGINEER LISA COOLEY M.D. Performed By: #### I GG, SMAB, MITOM2, L-K MICRO, ALPHA PHEN, HEMOCHROM, CERULOP, TENA #### [facility] , #### PARVEEN, TSH3 #### [address] ALT [Catalytic activity/Vol] 48 U/L Normal 7-52 [facility] Comment on above: Order Comment: Reaso n for Exam Elevated LFTs Reason for Exam Fatigue Performed By: #### I GG, SMAB, MITOM2, L-K MICRO, ALPHA PHEN, HEMOCHROM, CERULOP, TENA #### [facility] , #### PARVEEN, TSH3 #### [address] AST [Catalytic activity/Vol] 27 U/L Normal 13-39 [facility] Comment on above: Order Comment: Reaso n for Exam Elevated LFTs Reason for Exam Fatigue Performed By: #### I GG, SMAB, MITOM2, L-K MICRO, ALPHA PHEN, HEMOCHROM, CERULOP, TENA #### [facility] , #### PARVEEN, TSH3 #### [facility] [address] [place] [address] Bilirubin [Mass/Vol] 0.8 mg/dL Normal 0.3-1.0 [facility] Comment on above: Order Comment: Reaso n for Exam Elevated LFTs Reason for Exam Fatigue Performed By: #### I GG, SMAB, MITOM2, L-K MICRO, ALPHA PHEN, HEMOCHROM, CERULOP, TENA #### [facility] , #### PARVEEN, TSH3 #### [facility] [address] Bilirubin,Indirect 0.7 mg/dL Normal [facility] Comment on above: Order Comment: Reaso n for Exam Elevated LFTs Reason for Exam Fatigue Performed By: #### I GG, SMAB, MITOM2, L-K MICRO, ALPHA PHEN, HEMOCHROM, CERULOP, TENA #### [facility] , #### PARVEEN, TSH3 #### [address] Bilirubin.indirect [Mass/Vol] 0.10 mg/dL Normal 0.03-0.18 [facility] Comment on above: Order Comment: Reaso n for Exam Elevated LFTs Reason for Exam Fatigue Performed By: #### I GG, SMAB, MITOM2, L-K MICRO, ALPHA PHEN, HEMOCHROM, CERULOP, TENA #### [facility] , #### PARVEEN, TSH3 #### [address] Globulin (S) [Mass/Vol] 2.8 g/dL Normal [facility] Comment on above: Order Comment: Reaso n for Exam Elevated LFTs Reason for Exam Fatigue Performed By: #### I GG, SMAB, MITOM2, L-K MICRO, ALPHA PHEN, HEMOCHROM, CERULOP, TENA #### [facility] , #### PARVEEN, TSH3 #### [address] Protein [Mass/Vol] 7.1 g/dL Normal 6.4-8.9 [facility] Comment on above: Order Comment: Reaso n for Exam Elevated LFTs Reason for Exam Fatigue Performed By: #### I GG, SMAB, MITOM2, L-K MICRO, ALPHA PHEN, HEMOCHROM, CERULOP, TENA #### [facility] , #### PARVEEN, TSH3 #### [address] Hepatitis A Antibody IgMon 1 05-19-2022 Hepatitis A Antibody IgM Negative Normal Negative [facility] Comment on above: Order Comment: Reaso n for Exam Elevated LFTs Reason for Exam Fatigue Performed By: #### I GG, SMAB, MITOM2, L-K MICRO, ALPHA PHEN, HEMOCHROM, CERULOP, TENA #### [facility] , #### PARVEEN, TSH3 #### [facility] [address] Hepatitis B Core Antibodyon 03-19-2023 Hepatitis B Core Antibody Negative Normal Negative [facility] Comment on above: Order Comment: Reaso n for Exam Elevated LFTs Reason for Exam Fatigue Performed By: #### I GG, SMAB, MITOM2, L-K MICRO, ALPHA PHEN, HEMOCHROM, CERULOP, TENA #### [facility] , #### PARVEEN, TSH3 #### [facility] [address] [place] [address] Hepatitis B Core Antibody Ig Mon 03-19-2023 Hepatitis B Core Antibody IgM Negative Normal Negative [facility] Comment on above: Order Comment: Reaso n for Exam Elevated LFTs Reason for Exam Fatigue Result Comment: Perf ormed at: [facility] [place] [place] [id number] Frame Feeder: Zechariah Paula PhD, Phone: [phone] Performed By: #### I GG, SMAB, MITOM2, L-K MICRO, ALPHA PHEN, HEMOCHROM, CERULOP, TENA #### [facility] , #### PARVEEN, TSH3 #### [facility] [address] [place] [address] Hepatitis B Surface Ab, Blair ton 03-19-2023 Hepatitis B Surface Ab, Quant >1000.0 Normal Immunity>9 .9 [facility] Comment on above: Order Comment: Reaso n for Exam Elevated LFTs Reason for Exam Fatigue Result Comment: Stat us of Immunity Anti-HBs Level Inconsistent with Immunity 0.0 - 9.9 Consistent with Immunity >9.9 PERFORMED BY: [place] [address] PATHOLOGIST HEATING AND VENTILATION ENGINEER LISA COOLEY M.D. Performed By: #### I GG, SMAB, MITOM2, L-K MICRO, ALPHA PHEN, HEMOCHROM, CERULOP, TENA #### [facility] , #### PARVEEN, TSH3 #### [facility] [address] [place] [address] Hepatitis B Surface Antibody on 03-19-2023 Hepatitis B Surface Antibody Reactive Normal . [facility] Comment on above: Order Comment: Reaso n for Exam Elevated LFTs Reason for Exam Fatigue Result Comment: Non Reactive: Inconsistent with immunity, less than 10 mIU/mL Reactive: Consistent with immunity, greater than 9.9 mIU/mL Performed By: #### I GG, SMAB, MITOM2, L-K MICRO, ALPHA PHEN, HEMOCHROM, CERULOP, TENA #### [facility] , #### PARVEEN, TSH3 #### [facility] [address] [place] [address] Hepatitis B Surface Antigeno n 03-19-2023 HBsAg Screen Negative Normal Negative [facility] Comment on above: Order Comment: Reaso n for Exam Elevated LFTs Reason for Exam Fatigue Performed By: #### I GG, SMAB, MITOM2, L-K MICRO, ALPHA PHEN, HEMOCHROM, CERULOP, TENA #### [facility] , #### PARVEEN, TSH3 #### [facility] [address] [place] [address] Hepatitis B virus surface Ab [Units/volume] in SerumOrdered By: Imad Asaad on 03-19-2023 HBV surface Ab Qn (S) >1000.0 mIU/mL Immu nity>9 .9 [facility] Comment on above: Status of Immunity A nti-HBs Level Inconsistent with Immunity 0.0 - 9.9Consistent with Immunity >9.9 Hepatitis B virus surface Ag [Presence] in Serum or Plasma by ImmunoassayOrdered By: Wilver Felton on 03-19-2023 HBV surface Ag IA Ql Negative Negative [facility] Hepatitis C virus IgG Ab [Pr esence] in Serum or Plasma by ImmunoassayOrdered By: Imariana Felton on 03-19-2023 HCV IgG IA Ql Non-Reactive Non Reactive [facility] No Panel InformationOrdered By: Wilver Felton on 03-19-2023 Hepatitis A IgM Antibody Negative Negative [facility] Hepatitis B Core IgM Antibody Negative Negative [facility] Comment on above: Performed at: [facility] [address] [id number] Director: Zechariah Paula PhD, Phone: [phone] Hepatitis B Core Total Antibody Negative Negative [facility] Hepatitis B DNA Test Information See comment . [facility] Comment on above: The reportable range for this assay is 10 IU/mL to 1billion IU/mL.Performed at: [facility] [address] [id number] Director: Aston Omalley MD, Phone: [phone] Hepatitis C Interpretation See comment . [facility] Comment on above: Not infected with HC V unless early or acute infection issuspected (which may be delayed in an immunocompromisedindividual), or other evidence exists to indicate HCVinfection. Protein [Mass/volume] in Ser um or PlasmaOrdered By: Wilver Felton on 03-19-2023 Protein [Mass/Vol] 7.1 g/dL 6.4-8.9 [facility] Serum hepatitis B virus surf daniel antibody detectionOrdered By: Wilver Felton on 03-19-2023 HBV surface Ab Ql (S) Reactive . [facility] Comment on above: Non Reactive: Incons istent with immunity, less than 10 mIU/mL Reactive: Consistent with immunity, greater than 9.9 mIU/mL Serum or plasma albumin/glob ulin mass ratioOrdered By: Wilver Felton on 03-19-2023 Albumin/Globulin [Mass ratio] 1.5 {ratio} [facility] Serum or plasma hepatitis B virus DNA measurement (units/volume) (viral load) by probOrdered By: Wilver Felton on 03-19-2023 HBV DNA GITA+probe Qn Not detected . [facility] Serum or plasma hepatitis B virus DNA viral load by probe and target amplification meOrdered By: Wilver Felton on 03-19-2023 HBV DNA GITA+probe [Log units/Vol] See comment . [facility] Comment on above: Result Units: log10 IU/mLUnable to calculate result since non-numeric resultobtained for component test. Serum or plasma non-glucuron idated bilirubin measurement (mass/volume)Ordered By: Wilver Felton on 03-19-2023 Bilirubin.indirect [Mass/Vol] 0.7 mg/dL [facility] Outside Recordson 03-03-2023 Outside Records [id number]#1.00OTG TIFF [facility] Outside Recordson 02-19-2023 Outside Records [id number]#1.00O TGTIFF [facility] Coding Summaryon 02-16-2023 Coding Summary HTMLBase 64 XnghantlBBq0lXv+PGhlYWQ+ IS6XQOKgR94cnBYnyO5dT1GC TElOSywgQVBQTElOSyIgbmFt QA1tiEFvSICs IC8+EJ9sQGTqKwljtLAxz2I4 tTL9R08syy0eRElrrWH9EZYt WyTkgcetm9iavHn9JZfbCqos OyBt XBAcuA72CQS8sY15Vf64zXUr uXNqr7kyoQy5NoObASZsCGJ0 nHzgKMwrf1ZeHPXxD91daEXo c2U6 HNZnaVbweOVoCaUhoYI3yZ9x CKkxjgxtd2ejnmjdGqq7dz84 iPIti2W8aKN4Z9EgavR0OXWw bGQg TgysuHTIrK4ipzgti9lybzbe UqBgMWYlCDv5EYl2YZMxuWbx NnSiLM33WKY1FHZqwqZvJ9Xv LWFs iNjzHaR3u7Z0Rh3LY2VTEjgn D6NVSGPBJJzxlUB+HX43po01 M9LuHmsnZhm9NAUzIDK9gFT1 aD0n JTIeYTdbw9O5uGN4A3ZfzjMy op7qc9inTPZcBCnqR71ldGVo v8L4WNWanVC0EPAvmJtyPhAz aG93 Oyc+MFQuyDwvo6LdHpmyq7zn t4uwtTm7LbqkEVTnukYxiJgy BUU2g8MzSw9nCOIwfGM4dCB6 aD0i NiSdJkN6BNoiT446QnWqyNBx OhvbP82zM4TczWD+PHRyPjx0 UOVrvUktVK6kW1ErRAMijnmp bGVm bSazSL7hZTFqkwzyGOEahN1z EFRwH1y7LdOcXyJ5RGmjK5Cv XLYtkqobLa09hJ0hKmNcFkH8 MGlu Q1OynlR3ADMljPGpLLfdXTA2 S00ti4C0PTGhTZYmGQO8wHN1 rH8zcOinqlytgVRxcYknbyEq dGlj JXueKMrjK161ZHRztUnjFpKi ZGluZyBEYXRlOiAgMTAvMDkv MjAyMzwvdGQ+HTCnXKS4iOvc PSAn fRCcEDxuPc1srMrbuAnwHB6a MJPnyydnQIXczO3dWTNspVIh nBvuUU1dNRDnmjmem171KqWd MHB0 PWJazUXgO8BhuG5cAnAnWYMm PYPwH5OyqYUqNGnsZ127UCby NgR2FDGvyaEpJ0AuSTFqjEpb OiB0 x7G4Ro8Qt3UtbodvQ1MyxYUv ByDiYxcxXNq6O3PhPtfvgVI+ SB79PLNuZP06RFp9UYD9vWyd PSdi PMCaY1NasK0iEbJfGCUkCPVe Oyc+PHRhYmxlIHdpZHRoPScx KWRyRwEjeCmdRO8jVf8kCXSv LWNv nZtpfXAdMzPvk4vnTCQsUQfc MG4hlBmmK9GsqIY2ISJre8t1 Gj71S70hO4EfjUC+PGNvbCB3 aWR0 yZ3lVvWpOzC3QAqbA724CcIq eQVbHnufu3qsm0usdVa3VkW8 AFMcxuNxiJpeQOC7y4OdFb09 Y29s IHdpZHRoPSIxNSUiIHZhbGln lj8dxX2nTw1+YIQdyUP0qSO6 eT1pWgKvMyE0LXhgY679KgDm cCIv Kfbup1eaa1znvDz3RyRfIXLc vtJguGrjUVS0t7IxRk85Z8Vp cJbkb0JlCpk0xo88gDZlu8I1 bGU9 Q4VwUQZwzvbnwCXreMtjIH0n AFRuvcwdHLScgV8vYJRmX3j2 YdBvCoW1ZHluQ7IpxnD6JHQg bGQg LDVqvLCLrS1otjysw8afdwdr UgNkVGYlAFe6VUq4RWSuiVpc AzIkUNO1QmJ6DNW3gMNenW8m bGln kruhjB7wQui+LVJ2kCKilAIQ DL2kXodywNW+EAKvGSX0sUow STztDDGpaF4tQHYtT9w3AzLg LjA1 EQxeH0XfhdQ9UKHutUUwMVUr gDWMsQ2kebekv8bgkhbiOwOr CPSeVWn9CGv0IBEpaJurTrGc ZWZ0 MtV5XAL1zQUlfK0ctAwqkwlj oP6bJgt+ImyilLuvIQV7MJf8 Z6UdCdm8PKXvgJxnJP3csNFr ZGlu Wb5egNqqsXgaPO6fBHSrtgny g307HqHfh9yxGKPzpNXoIYgj DGS8Z23ig4X4XZYrXNAzNBZ1 dGV4 tV2pgLafziqnvNXczGdezmGn jIysAWuvHTvjB317NKIedSev MfTuKNy9Q4WwFab9GBCvqUyb ZT0n zLXgCEgmEo5qgJuglWpdAS6e HRLiiekfv360OjGhu4ovTESu tEKlPWksSNJ7Q03tb9V2RCYw MDAw IGI7gIN0oI6acLzqcwiouBVo oEsjcyEchYcsYPtkEUnkH929 PBNdsKeeRjEsfHt6V5ZyAjg2 ZCBz zUuiOU2axQMoPNvyNw5lyDai cDhoVA1mQMAkuradb487IfHb b6xgSIWluKPzIDtpWOT6D34f b3I6 OSRsQCTjSGU1tRP9cI9rbDhl bjogbGVmdDsgdmVydGljYWwt NYgnB433NAFykMruHnVkeMrw bnQg CXgeFLx1S4AmLokvhPL+PC90 ANRaHE33xRWsmNPbc4jktLq5 FeIcHYMuCUH2dApnOGjys8Rz ZXIt I56siHBap3T4CPFksMfoxSYo IxXstIC3qN8vCZylvdaoz2yh vpwyAyhnr8nnyo45zL15S37q IHdp UJHaEYFeTXThXZKfiGtscx1k yW5gQw5+QCVrrEV3fPS8eS2s FJSpFiH5FCwyE845DuMyjGKq Pjxj m1qbv1rruWm7EjL3IQJcqfUo sGslFQL7q6TbWd39M58pMLqp KTQbREGbJIBoGKJkjWtvwt6u dG9w Ii8+AYFtqIO9tEA7oC9iOiLp HdO0KNywR517QkQnuCVhKbxo M16lE5CdaTH+ECPwHyd0YISn dHls BF3liOHyLTlsFg7rDKS7UrAv WcPaOMgaE3ZbNZSxsufztbsv vGS6LOZtCABgcC82Zm2hjUed MTBw nFDMnB6txmauq2egznoaJcVm GMQbNUv1VUm2OPRskSqjBwUs VGZ4EqK7CUQ5rAUgpZ0wfRqj bjog qB1jQ1ZhYZUzguywDf88yB9g XhSkLcA0EQmtCxs+QkFVRVIs IEdBVkVOIEFORFJFVzwvdGQ+ PHRk QUL3mNrcOQuwJCYzmS2mCKTp L6r5VmHjBpO4PNzfE3RtPJFy yjouNg07rF0wHaIeGbM8YHjk O2Zv vbK5CZSnqNSvIVodGKQ8R10k h5P8VKZkTGOjWOL3sMM1wN4g bGlnbjogbGVmdDsgdmVydGlj YWwt DTltP216MIWxlUwhOiSgUjLo SvLqHID8T5IrXha4YQFwoGdj XZ3dsEBjVDubUt4meAlfiKjd MC4w JPBddhqpADUslE9uKBIxcWZj pJqtFK5hSNPzmpqnd222GxUp YVZ5KUKjcKNaX4FydX8nFjWj MDAw DZDmP3VfxWLvMXztR962ZQmh KqE9YSSasxPlV9AkMFIpaXnl QaW1f2P6Iz0pPFMWYQNdpglj dGQ+ QUBsTTO8sKxvYSfsYKXhmE3v IAAgK9v9CwAmTzP0URszA5Js NJAmkqxvIn79dN2qQgDzHzV2 MGlu P7LuwwT5SKKehYJoPPlwZLN9 O93mx6Q5JCKyZJQoNHN9vSE5 oL2mtXylstuhfXOdaVhajnXb dGlj VJirJGswG923IZAxmRzoDz6A FHR8B7LsKxo4EWJqeMyjYX3k uWKqNQacNk6hpXkcgImzCO7s NTBp eepfAASzeJ3xVJByjUGlbHpd UB3yWIYbapxil687HwHuRKG5 AZThfSHmF8StsA6nYlKrNDUd MDAw D8GlhUTxMMxyZ100SOykXcL3 WXFpjaZrY6DvKTDafOlbXjD3 e8P4Ud3NAEkcaNN+KN63qv14 L3Rh LqmzPox1WGCcPQB5sCV7hD1o HDUpYEmzf7M2uIC0R1SsvoOh bz5lu6szCECfAOixJ56tcMIh c2U7 ZUNhaCX3RCLmyNrfKlZzoV27 Oyc+WVNqsQgxx8AiPgqkf8hx c8vhhOi8IpMgHIPobiUfbAij PSJ0 e6KdJz42E58iPRvpXLViTJAu EXKrAWNroFdtop8tpC5mMd0+ RXMbuEB4uYB3wY7yBrTyDgR0 YWxp C702RhPfhAJeImzpu0arn3yc dGq9OnUxVYJysxGmzKxhTLJ6 t6OnPc22C1QvrHlaq5DzDpr6 cj48 cBRck0V7wDN0G9KaFRVqymxy hDOwsHvnYY9rSTLypbwiJOQq tB5xUZXbS9s0RgThYbT6TSxp O2Zv jvG4YDQepFTtGWPytNANfE6o umyhk0xtrtrnToBmCXAxRWj6 HRw6QFHsiNkxIcQoVBZ9SvF7 ZXJ0 pIGmiP4fqFtjgwrquB7aRkb+ TBi0h4qzoTGqRG5ciTG6FK46 YO25sUTcw8U0aOH8X2InXNEp bmct sdnpqZK0KJJdUIGrlA60Fe6l xFqdEt0fFTCuQTG0OVApvBYn V1AkfZ3jDhWjBWReJAUyL0Jb eHQt NNvmD804LDsoVmO3PWBgkjMo T1OtMVGoxHepHoQ4k1L0By4U OZ53JP12UR66wAEim4S2xOC0 J3Bh EEYibemvjiwbuOO1FNJpUJKi qX16Ok6tgJulQl1gEJMsBXZ6 DJEaaCTvK9AchY9hFnArOOOy MDAw O7JpjPToVBacK988CMtqQzL7 PZTuktFnW0LkSTOpwEnhHsB8 v9C4Dt1XOc62RU08VA17aHQs c3R5 vTV5T3KsEMVaivmwosnfnZA3 CLHeJVYiuZ75En2wfLwzJz3l MYEdISN5DQSipHCjO7KeqD0c OiAj NEShTKFwQ6YltBEwBIigY637 XWguPzF3LXXzpsTkE4WoPNNj lVoiOyB5d7A8Jq0BVKkdueu4 L3Rk PjwvdHI+BO53VYHtOK39tXKz zSHpd2ckcSr7TfLwVNQlZKL9 gOjyUWgnn0YhHFUsT24uePLl c2U6 IGN (more content not included)... Normal [facility] Reminder Messageson 02-17-20 Reminder Messages - From: BALJIT PISANO DO To: [facility] Clinical Pool ([facility]); Sent: 02/12/2023 15:32:57 EDT ! Show up: [...] % (14 - 48) 02/12/2023 13:38 Auto [place] % 12 % (1 - 12) 02/12/2023 13:38 Auto Eos % 2.0 % (0.9 - 4.0) 02/12/2023 13:38 Auto Baso % 0.8 % (0.2 - 2.0) 02/12/2023 13:38 Neut Abs# 3.4 x103/mcL (1.5 - 9.2) 02/12/2023 13:38 Lymph Abs# 1.7 x103/mcL (1.3 - 2.9) 02/12/2023 13:38 [place] Abs# 0.7 x103/mcL (0.0 - 0.8) 02/12/2023 13:38 Eos Abs# 0.1 x103/mcL (0.0 - 0.4) 02/12/2023 13:38 Baso Abs# 0.0 x103/mcL (0.0 - 0.2) attempted to contact patient, unable to LM, multiple rings, no VM Patient returned tamra and was notified of results. [facility] [facility] .Auto Diff 1on 02-12-2023 Auto [place] % 12 % Normal 1-12 [facility] Comment on above: Performed By: #### 1 [id number], [id number] ####[facility] (DEFAULT)[address] [place] [address] Baso Abs# 0.0 x10 Normal 0.0-0.2 [facility] Comment on above: Performed By: #### 1 [id number], [id number], [id number] ####[facility] (DEFAULT)[address] [place] [address] Basophils/100 WBC (Bld) 0.8 % Normal 0.2-2.0 [facility] Comment on above: Performed By: #### 1 [id number], [id number], [id number] ####[facility] (DEFAULT)[address] [place] [address] Eos Abs# 0.1 x10 Normal 0.0-0.4 [facility] Comment on above: Performed By: #### 1 [id number], [id number], [id number] ####[facility] (DEFAULT)[address] [place] [address] Eosinophils/100 WBC (Bld) 2.0 % Normal 0.9-4.0 [facility] Comment on above: Performed By: #### 1 [id number], [id number], [id number] ####[facility] (DEFAULT)[address] [place] [address] Lymph Abs# 1.7 x10 Normal 1.3-2.9 [facility] Comment on above: Performed By: #### 1 [id number], [id number], [id number] ####[facility] (DEFAULT)[address] [place] [address] Lymphocytes/100 WBC (Bld) 28 % Normal 14-48 [facility] Comment on above: Performed By: #### 1 [id number], [id number], [id number] ####[facility] (DEFAULT)[address] [place] [address] [place] Abs# 0.7 x10 Normal 0.0-0.8 [facility] Comment on above: Performed By: #### 1 [id number], [id number], [id number] ####[facility] (DEFAULT)[address] [place] [address] Neut Abs# 3.4 x10 Normal 1.5-9.2 [facility] Comment on above: Performed By: #### 1 [id number], [id number], [id number] ####[facility] (DEFAULT)[address] [place] [address] Neutrophils/100 WBC (Bld) 57 % Normal 44-88 [facility] Comment on above: Performed By: #### 1 [id number], [id number], [id number] ####[facility] (DEFAULT)[address] [place] [address] CBC w/ Auto Diffon Erythrocyte distribution width (RBC) [Ratio] 12.9 % Normal 11.5-15.0 [facility] Comment on above: Performed By: #### 1 [id number], [id number], [id number] #### [facility] (DEFAULT) [address] [place] [address] Hematocrit (Bld) [Volume fraction] 42.2 % Normal 34.8-51.9 [facility] Comment on above: Performed By: #### 1 [id number], [id number], [id number] #### [facility] (DEFAULT) [address] [place] [address] Hemoglobin (Bld) [Mass/Vol] 14.7 g/dL Normal 11.8-17.7 [facility] Comment on above: Performed By: #### 1 [id number], [id number], [id number] #### [facility] (DEFAULT) [address] [place] [address] 13811 Man Diff? Auto Invalid Interpretation Code [facility] Comment on above: Performed By: #### 1 [id number], [id number], [id number] #### [facility] (DEFAULT) [address] [place] [address] [id number] MCH (RBC) [Entitic mass] 30 pg Normal 24-34 [facility] Comment on above: Performed By: #### 1 [id number], [id number], [id number] #### [facility] (DEFAULT) [address] [place] [address] 42218 MCHC (RBC) [Mass/Vol] 35 g/dL Normal 26-37 [facility] Comment on above: Performed By: #### 1 [id number], [id number], [id number] #### [facility] (DEFAULT) [address] [place] [address] 92540 MCV (RBC) [Entitic vol] 86 fL Normal 81-100 [facility] Comment on above: Performed By: #### 1 [id number], [id number], [id number] #### [facility] (DEFAULT) [address] [place] [address] 50494 Platelet 254 x10 Normal 138-427 [facility] Comment on above: Performed By: #### 1 [id number], [id number], [id number] #### [facility] (DEFAULT) [address] [place] [address] 76506 Platelet mean volume (Bld) [Entitic vol] 8.6 fL Normal 6.3-10.2 [facility] Comment on above: Performed By: #### 1 [id number], [id number], [id number] #### [facility] (DEFAULT) [address] [place] [address] 62022 RBC 4.89 x10 Normal 3.70-5.30 [facility] Comment on above: Performed By: #### 1 [id number], [id number], [id number] #### [facility] (DEFAULT) [address] [place] [address] 79749 WBC 5.9 x10 Normal 3.5-10.5 [facility] Comment on above: Performed By: #### 1 [id number], [id number], [id number] #### [facility] (DEFAULT) [address] [place] [address] Liver Enzymeson 02-12-2023 Alk Phos 56 IU/L Normal 32-91 [facility] Comment on above: Performed By: #### 1 [id number], [id number], [id number] ####[facility] (DEFAULT)[address] [place] [address] ALT [Catalytic activity/Vol] 53.0 U/L High 8.0-36.0 [facility] Comment on above: Performed By: #### 1 [id number], [id number], [id number] ####[facility] (DEFAULT)[address] [place] [address] AST [Catalytic activity/Vol] 35 U/L Normal 13-38 [facility] Comment on above: Performed By: #### 1 [id number], [id number], [id number] ####[facility] (DEFAULT)[address] [place] [address] Gamma glutamyl transferase [Catalytic activity/Vol] 31.0 U/L High 7.0-26.0 [facility] Comment on above: Performed By: #### 1 [id number], [id number], [id number] ####[facility] (DEFAULT)[address] [place] [address] Coding Summaryon 01-16-2023 Coding Summary HTMLBase 64 ZmyvgalpZPw0bNc+PGhlYWQ+ IC3BTPVnF02frDKljC9uD2KH TElOSywgQVBQTElOSyIgbmFt KH2dzOZlCEPw IC8+QX4ySSAlXyfzrCIpu0P9 gWL3Q79azk7mGJcqnCF2AJDw HjTtamjho4jefMe4HVazEcvk OyBt HUIdrL40UMZ8dU01Hz08hJUg nZWzd6sncKa8OkErUKZvCBL1 aAvePWiui0ZrCCMaQ30usIQk c2U6 UYMtuFcwgGUgMuSwdSF6mO1g OSqcmtcby8fsrrydYox4bd33 rOTct8Y5xLO6S2DqlnN5BWXd bGQg EfrqvPWRwN9ufbooy4ailkca OoHgAXYoICk9LKv7PUOohSuo NjPaGO83XUO8XGJbnsJhL6Sv LWFs eNfnFeT1a4Y3Pm4XX5XZHlhg H9WSFDKOFHxqqKO+PZ42rr18 Y3SnPkidBje3KOPyGRR7qAK6 aD0n NGLhNLull7G9uIO5A7IxnoIh ay5tm7ulIIBdNJzfM15ztMZk v6P8HMAwrFX9IDLqaHcaKeQw aG93 Oyc+KUYghBvdx9EoPitfk9wj i7lnwTq0PjnaPURzbwRpiAgn WAL3d9KlEc9oMYUwyOI1zIC1 aD0i UdXbCdG1EWhpZ494NiBslBYn HuoyX24nT4KdrRO+PHRyPjx0 UICzpNwaCM0gP7XhILXyccnv bGVm fZwjKY5fZWPrblblWUGjkZ1u BTBuK7x3MvJlKpH8WQzgG4Cm TJErjywcFc76zT3jHqIaIqT7 MGlu D9ArhmH5WUNcrNFnOSjdQVY7 Y05mf5Q2QYBdHQMnEAE9aWP2 bB4cgOpmbtihcCQfmFogtwOx dGlj VAfnFTqdR739GUZlkXzgBtHo ZGluZyBEYXRlOiAgMDkvMDgv MjAyMzwvdGQ+NEPkEJW7yFsy PSAn mXYmJLqeAb1qzVvybXxzQO1x NJOucllhBTAwoJ6tYKWdcCAr aHksXF8bHGLcewasc016GtFd MHB0 RXIetBGhE4EjxP4hKdDjRQAp GZShN7FgsRLuAIqwL520FBnx CkV9OFEuskBbS3QlQHXmoMvi OiB0 b3H5Ab0Fh9YvulhaC1JtzLIu UrMsGbmaOKf3G4WsJcreyWW+ TU92WZXhFY16KZa9IWW2aDqc PSdi VWXxL6DkxS5jFlHlACGdUOBs Oyc+PHRhYmxlIHdpZHRoPScx CQFgNeVauFqjBY1dZe8qEQHv LWNv gMwykAVjFxTat0xaFTLwXRru GN8esMujK8UfhRB4FDMwx4m7 Eq01X41zC1UwbFF+PGNvbCB3 aWR0 lT2uLeGcRyR6YEflC767VaWr zYFtWtumx0htx9qluCl1RrJ4 GZIzkwUfbRwxHCO7b1CuQf88 Y29s IHdpZHRoPSIxNSUiIHZhbGln dm1faN1aUb2+YGVedGU8iOE4 oV4fLyHbPoA2LZtjU495KsXn cCIv Bdrjz7caw6phfMv5OlOkAKNc fmDzmLpkXFT8h4OtNe41R4Ce xMrkq9PtBbt1jw52zFLyy2N6 bGU9 Z2LrEDEnybfyySEebSagTZ8v BVVuuiggWMXudS0bFTDaG7d1 GwYuJoB8XMdwQ7SrtmE5UQSz bGQg PLMuvANRuM3myocwm0vfnztn TcYvPNVzRDh1KBm7ROZozPxe IcOvOEI6IvH8PUM0gLIscQ0c bGln mppviP4eJfw+YBG9aBAzxNPX GU3lTmjlcML+TDRfMBG6pKhc BTtkOHQuuB7oLSHlL4r2QzNz LjA1 FVxnN7PxfnS1LJVpvXEnEDBb lVHXnL0ctozui6hpsnkkVdLb RXBdMNd5VQy4CUHraHdeBeCf ZWZ0 EtD4MJV6jHIwdY8ibQyaxhxj tI2aOop+RlhigZvcCVP2ZAl0 A4TmZcw8IWLfuNmbHH9nkHGw ZGlu Eh7ayCmamLfhZM0eWVOqvkqs e664WiVpo3zgSQOylKBwCSfd RCQ8Z96dv7B1NHOhHXVeNIE8 dGV4 mT3isJqorodzeUVvqWbjphCc qTpzDSlwZNnmX771RSBnyTps KfXwXPz4X9GkUsn9ZMSfmKya ZT0n xOVsKEetIm1ktTrcdWedBG7s FEZxlohmk667SaIhe9idGJIg aIBaCRklCZA3S56re4V0PPXe MDAw RMU3jNY0eC6xfGfnqatkzYNi dBnnjcWacVdsYMpkLIctM390 NSJbkZmtYfXbnHk9V1LeZde8 ZCBz xIukFZ5gmKDrLGebIf2nkJmm qBxdMI0cASWfwoael877NcPb q5atXBAgvWWsMEjbGTW2A19j b3I6 YTBhVBKmPGJ9dZK1nJ0ioFhk bjogbGVmdDsgdmVydGljYWwt NGvpW216XRIwlQksYiEizLmv bnQg QSduJRp8R1DpXmllwBY+PC90 TCOrEE80sJUzeUTvx1fxnMt1 IiHwCUTeJEK1lWxtVGgjf1Nb ZXIt Z03zqDJru9A2BINsvWsggSMl FpHtiCM2tE0cOEjncfpls1tm gfquTptmq7dbly54tW59V83c IHdp XOFjOFAvQKVyUKKsoEylfw8s yV3bRl7+FCIpkAW0gZG3uI9i FZXsWuK5TKuzM461MvWzmRHa Pjxj h1alm3uatYp6EkH5ASVbnvMr uSzrRFJ8a6EvZm71I89nJGkl NOHbATZlAXDcYYGldCljbp2u dG9w Ii8+IWSieBU2yXE6dY3aUgLg XsL0DLnrG173PxOwaZLiBjhn X04rW3ClfNT+WLXxTgz8ENFv dHls EQ5dlBQoRWpsZk0pWLE1NnNp BdHfYAflY0AoLIDeibhfespe lGH1OEYmUSJcbW08Uc7ufEpi MTBw uAUMaG6vepeiz7ukkjraSoJf HNNlBUh6LLa6CZKxwWcaUlHv WYT0JjL0LHV1xJPlvK5nySrx bjog sF6lY8AxGXVvlmsqEo29wE5u LyDhFpP2WTnuNrh+QkFVRVIs IEdBVkVOIEFORFJFVzwvdGQ+ PHRk GGU1mOvgWXaoQNDarX8oIATv O5n5ByGhFfZ9BMgfS0BgKLPu nzyqFb84hV9xSnAmUnL2AZqa O2Zv hvG8BTLiiVZsGAqlRIX8X40j o9B8YKImZGMcZDI4uFY4hT4e bGlnbjogbGVmdDsgdmVydGlj YWwt HOqlF306UMIznNfoSmBrMxOn GuWgOGU1L8QxCib4PDKdeWpo QQ4oxUVoDFbqBx5toQnnuYaf MC4w JCArovulTFHwnZ7yMDXqoXSj sJmhHF6cKFIjhbvez166BwJy DKK1OLMbrKCsX5OmpO9lXxDe MDAw KFFrX5EfqWZrIUglV101TApv TwC3SFZswtAqS9GxQPZlzLvl IdG4u3T3Pn4gHEXVZLKrjcsx dGQ+ ZNWaDOQ5iWnfOUelYPXdyZ0v ECFqG3f3PfFrIvD0TOmnN6Nd ZKSlgfcaZm10mT7nRzNpQfZ6 MGlu U2JtqzS4OWYuyFSyGZzlGBP6 T26sp0Q6BGYqEODnHBL7eZH1 pR3pzEavifsjvZOjfDjpuoUq dGlj ISswOZtgT585UBEguLuqPk4Q IGU0B0UvMms9RUAigQssRG2l qUExXWxmCy3blKhvrEniTK8x NTBp pzloBWRfnY1jQJAfsDPvoWvh EX0vXUHgimisi171NnFxOTU1 EBCpuFVjY4KrmY3cSuXiMOGz MDAw P2LgeYViMBcqZ054YDirWiQ1 GGYlyhQsG8KrSCOcxWrpLtP1 d9D3Gy1SFLraxKA+SY32jn03 L3Rh VjveYvy1TZSwQTW1uJA3kT0p BEWoKEjdl0W4oEX0E0RnwlKo hj3av1qgRMJfUTlaZ96dgNLz c2U7 ALYhnXM7YIUryXcbUqHvoY31 Oyc+OMSrqSmtm9OkNmqai7iq b3bxiHh6HrWcCNZxsoGemAnv PSJ0 a8EpTq00Z92cQQncUTCjFWMs PMWfDDAcvHygey1slK9yOr9+ IENrzSW8tPF9nX0lXuXkYyR1 YWxp O123NpYagSTaZlvfe8hwp5bn vVw7QzBgCPEzdzGswKsyKPZ6 i9AxRa92G0IjmFsyy8CcUkh2 cj48 sVAek6D6jRK4D7GbSGPzsdbf eQRcbWdaTJ7vSWJyrawnMVYc sR5bRRDmG8w7EwWgHeC2VPva O2Zv ckU4MSExkCDqSKZhqHGOuU3w ahhgv6rgpjjnAaFgRSBiDAp3 NEp7POAmuZgvIoHtCAP3OpC5 ZXJ0 cGUnyA0qgFppmktkcL3nRpf+ ZEz8a1nsnNRoBS8mxOH5GW75 FH19fBAvt6X9wIB6A5CeYOBq bmct godzuLU0XCXkAMWxlC52Mg3c yEbfYu3tOAOnGBP0KNUbeNSc W3TkrM7nZqSnRPZuATTnV1Qp eHQt GEcmQ019WXzxSqW1ZYCwhuEt A9YjQLGvmMelEhE1g0F2Yq7N SC40VN43YH65aGIbn1C5dSB8 J3Bh WIFogrjftfueyCM1MGVvIGBt dZ18Fs2diHtoAl1fFIPlEGN9 YWGyhUYdT1TbcK1iGsHnVNVi MDAw N0ObmACcJAsoT854WWsjPqP7 GKVsonGyB8IuOWOpoHlpFpX5 h4S1Bo3FXe59YY26KE34vFNc c3R5 kFY9D0OtCOTczpgwwnmipKE8 OOReLREerA57Es5cgHqxAf9z FNYjUAD4YVViaDIkN0UweA9h OiAj KSSaQCWuO4JnhTRsFAjwH822 OAmeCmV2MTGwqxQqE2RkSGFt jCnkJrA9x2N5Ke8HUVnfhet7 L3Rk PjwvdHI+MZ54UCUxQA01kFLg jWGjj2tnzBd7PeNfQKZvSZJ4 bOxgGOpgf0SlCQAdD64otLTu c2U6 IGN (more content not included)... [facility] Outside Recordson 01-15-2023 Outside Records [id number] [facility] Reminder Messageson 01-15-20 23 Reminder Messages - From: BALJIT PISANO DO To: [facility] Clinical Pool ([facility]); Sent: 01/13/2023 07:37:35 EDT ! Show up: [...] - 26.0) Notified patient of results Normal [facility] Reminder Messages - From: BALJIT PISANO DO To: [facility] Clinical Pool ([facility]); Sent: 01/13/2023 07:34:28 EDT ! Show up: 01/13/2023 07:34:28 EDT Subject: Results Follow Up Actions: Call the patient with result(s) Due Date/Time: 01/14/2023 07:34:00 EDT Reminder Comments: swollen fatty liver consistenat with hepatitis Results: Date Result Type Result Name 01/09/2023 16:08 Radiology US Gallbladder Notified patient of results Normal [facility] Liver Enzymeson 01-09-2023 Alk Phos 57 IU/L Normal 32-91 [facility] Comment on above: Performed By: #### 1 [id number] ####[facility] (DEFAULT)[address] [place] [address] ALT [Catalytic activity/Vol] 54.0 U/L High 8.0-36.0 [facility] Comment on above: Performed By: #### 1 [id number] ####[facility] (DEFAULT)[address] [place] [address] AST [Catalytic activity/Vol] 35 U/L Normal 13-38 [facility] Comment on above: Performed By: #### 1 [id number] ####[facility] (DEFAULT)[address] [place] [address] Gamma glutamyl transferase [Catalytic activity/Vol] 30.0 U/L High 7.0-26.0 [facility] Comment on above: Performed By: #### 1 [id number] ####[facility] (DEFAULT)[address] [place] [address] US Gallbladderon 01-09-2023 US Gallbladder Clinical History: [...] Rafita Farris MD 01/09/23 4:08 pm Technologist: [facility] Coding Summaryon 01-07-2023 Coding Summary HTMLBase 64 QdwslpuhKIf8hVz+PGhlYWQ+ DY0ZLWDuV27xgXVsrJ7eX7HD TElOSywgQVBQTElOSyIgbmFt RN2xdTMsRWJa IC8+VH1hQVYhXhezkEPwl0U7 qUJ3M40glg0hKEybnTA2ZVBw UwSayrlda2yifCw9NLpaXdmx OyBt SZRpeR91FKR7hK77Cc75vYPf uSNcx3qbuMs3KjKpJDKaPVP2 sXipYQatq5GlKWEdM85beQEd c2U6 VKAkyPazaFYbIeQlnCS4sU3c VCnnxeddy9vvaaqqTun2nj97 jSRzw7Z0jBM3P4BngpW7SZLs bGQg MhqzfSUChV3gffyij9qihptk TzOdZHRoALj9YOw2FCQbiNrm ZuBdZB80DMX2EDFvlbCnE6Hg LWFs jGykFaZ6k6Z7Zk4EQ3BPFtny G5SQLBOTPHufuFA+VM22ko96 H3PbYetbGhk5HFUiMXG1fTQ4 aD0n ZZSwYAqaz1V5wJK1U6ZxvmMb wv3vd2wqLQFuXAsuM88tfBTd z7I0QKJjqOU3FKYsbOndStBl aG93 Oyc+PTDqqIozz5HuHxtdx8sa c8gsxHg7VnawQJYzzkWeeTty QRJ6b5MwPm1dAMHwpWE8eIG8 aD0i MbFxZgA3UBqxV956HlUamXZc BimoI24pO0NunHD+PHRyPjx0 QINiaImxKO7fE1NgOUSoigiz bGVm tTicNW6eKFMgqrqcQJUzjD2j LDPnB2m9XkZfKrX3DBqwE1Uh NAUxdtpmCr86xX1iGzWqAiM1 MGlu E8GpqlG5TFKmgAVrFTttTPD9 D04jx0H0UGBsSYEbEYL0zUL7 vN7ofXsbxzybuOCevIrzhzYj dGlj HZqvTFbcA295JNKidFjdNnWl ZGluZyBEYXRlOiAgMDgvMzAv MjAyMzwvdGQ+WCLwIFT9nOlo PSAn qVQpDIbfTq1ksMxjiDyzZX5i KWClaiyzVOUezA8fCRNinULt sQilIT5cDWZutgste442ZrUs MHB0 OFRecICuE3NwdR3nUiOuFYTu SHRkG3EjwRWyBWpqT488DErb DpS2CZZloqBeC7EcCWYgyAht OiB0 f0E3Wn9Ds5FxryzuR3RjsXIu FfGhOxoqYBz9U5MbCgsxlLA+ AB37CZUeXC07SBq4SAZ3vKwe PSdi HSJaU5FndQ2pKkVuNOUfEIRi Oyc+PHRhYmxlIHdpZHRoPScx NTRbDdHohKhtSI6lBr2jXBFs LWNv aOpwxBFxLhOmw8ewJXOoLTjb MR1zhHbeL4FvsAD4MFBwm8v8 Xp80U90bS0LesFA+PGNvbCB3 aWR0 mQ0bCuTnYcJ3BFkdI300QeDm bFThKkikb4pqw4atqFl6RuI6 OZYokfOqpXsfDYO9d6ZmXv69 Y29s IHdpZHRoPSIxNSUiIHZhbGln pb5pnQ0zVe6+JFKyzCZ7fPV0 lF1gYvApZeQ5GDedI721QsGf cCIv Zbyxi9rgr2whxUk8BnFkNTAf vvStlOfqBDL2f1ZjHl61Q6Hy eOavd8EfOlf1nv91iVDdp9I8 bGU9 H2YbVPHbrjegxTKtaKdzWZ4d FAJxzatkWBNuvE2aKUPjW7a9 LfFxNrR5JIidJ5CfbuW9CEVz bGQg YZLsiHNSvN7hbnwpz9rieaof BgZiZIKxTDv7FRy9KIYfyTix WbHlHIV7SnN4CSX0xMBhbX6m bGln egvlaI2jHrh+UNT4eYMokCCV LB4fNmgnyOO+IJKzNBJ9oYwb MJsxPOYkyZ8rIPRkR5v2ZsEn LjA1 NPxtV1EymcO5HAJfuSLaXJVd eDHVeV7wsbznu3djmflpLbHj HTGjSXt3VQq4LNInuOtpZeVu ZWZ0 NzM9MZT6zTShfP7iqJgubkmg lH1rIuj+AppmhSfvWKQ0ZIw7 V8DaSft6BRApsUqsUC8sgUMs ZGlu Ex4ytBiksLbzEE5gLAGipiad y828DyNyi8afOUMxcLLdAEhx GBU6O97gh9D0COXkMOYsBPC1 dGV4 xE3okRlpiqetvUGusBvxubXy uNeqLZedADaoX035JVXfhGvj ChTvNEf0C7QgLui4TIMxaAfn ZT0n uBUcWYigCy5ohHaxaAdzVN6a ZGHybdygp539OaVvd6ndXMWd xKZcPVtdUIV8Y62iy4X4CNKt MDAw BAI7rNK3cH4djHrbjqphpGCv tErxhpIheKzbFIzdAEqgZ448 GXQncYgcMvNnnXj8N5DvVer6 ZCBz lNbzZZ8glSPpVRzhHi1ceXjf bZizKG3kGBHvnuwcb453VcEh f0qpSNRteAMrPMebFPF3E54l b3I6 IVPeZAXmSNT6mQB9cH9csPoq bjogbGVmdDsgdmVydGljYWwt ZIemL355DTZjrEyhXlEbvEvo bnQg FFdjGJx8K9NrXzgmcER+PC90 QBFnWJ36lMYvmHOcl2uhiLd3 YgXxJPDlBIH5pIuqSCuck3Oq ZXIt P40hvNZcc0X8YSYdlSeixNOy ZgSuoYY0bX9iWUmbxrjgv3lv twotIafwx4qoqk65eK47G77k IHdp RUGlVBGuZBDqMCJitAekau3u kG8zLj5+QMFofCT9fVG1pZ8p QQRgYdS1LFpqV050UuEpxSEh Pjxj u1wnl7rwiLb5MoE9KAGczpXg iKowSED7h4UcDb74J09hGLws KZGoMQCiEXIkJVJkpJcpor3g dG9w Ii8+WUUcaFD9iDR9xV0rJfRw DpX3SLdyV480NsUwhQZwXuws O70oT3GxdGZ+LGXcRyw8LNDi dHls NU0zbREjPFupFr8lFDV2KpFk WxYfCTdrR9DbZYOsbwlexgcz xEY3PQWhMECrmL93Ch6yxOij MTBw fUKHwU0atqttj0eehtzeFmFh VOQwVPs5TSq3DTLzjMmkFvWs MKB8DqG7JMK8nEMnkG1ksSfm bjog rV7oS9ZvFTQjejjzGg06pY8u GyCaDhJ5RQyoDjf+QkFVRVIs IEdBVkVOIEFORFJFVzwvdGQ+ PHRk IAG3oCoxDQmjBLNcrC2zKUOy N8h1WwSiAcC2SLrkN2NhZYUo qnofFq88yI3jFzUhJpR3QQdu O2Zv teP4CQCtcHDnOXozYLN7A47s j9P2IVMcHPSvHKZ0zOF9nX0r bGlnbjogbGVmdDsgdmVydGlj YWwt FBooW300EFVnfAwxNuPlRhHm UjOvSEG6E7DcQvc6QWGkxCzg VL9poLChWLkzPa9stBqywYym MC4w IGKqrhzhNOSmjA8gAOIkkMWb bLinCC1dSHBkngrcx294GcUw UPZ0DTUcfCMpU8LirB2wUnYm MDAw EDMrB5HuwTLvWLqkD935OKmc DnF6MGSadoRfX8QoTSMykAvn UtL3x3F3Lf1pFZVRUKZcmwhl dGQ+ SAXcJIM5oAfqJAaiAXKnyK5l BZTiO0v4UuAcZeB6PPojE2Lx NLGceensAd20qA3vZvMdXeJ6 MGlu R0EohgP5DWSecMWyNZcoNFR6 O01fg5V8PLQnQQZqULA6zWO2 aO3qxCttoohxjUQdpXaodvFs dGlj LMeuXXfvN807ZLUumXhfTm9N DRK9C3LwZdy4SKVfxHxjKC5u pKViFFxqRo8unEpuqTrlSV7g NTBp dcvmFUCaaU3cBNHykMJrqSon LG9aTPQqijkty355TwIfFQW3 NUFzpWIrS5NpzV3wBcAjCUSp MDAw V0WdtGUjKSqrC344RObsJpG6 MSBplcRtV2UrESJalPmgHsB6 u4E1Fi1UMHhtgIO+ZZ65ia68 L3Rh XlmxPha7YRZlYXE6kJH9rT8g ECLtOLdcz9J1xXU7D3UgcvOb ia4kn9idFUXbUSoyP37pfPEk c2U7 JGEfyYG2VAEshLtoWdCptO38 Oyc+DVLnbRxxx5XmBqsxs8iw m2meoQx1MiJhIWVcoaWvpBkv PSJ0 i8DvKy89H76qOXzmCBXzVTSx KALvFRUsiYovtu0hgL8iEz0+ QBXfiPB1jJY5uU1rQuKlMiC2 YWxp W134CgVagFPkYicnv3xcy1kx hGv2HtAnTNGbjyHcfXnyJPB2 p9CiRv89Y0HkzManw3NcAnn1 cj48 mRHok0J2hFQ1W3HbLDLmiosf qJYorQctLB0nCLJkztnzOBWs yR7mEDLtS5w7AnCyIbD8DUmp O2Zv kuD1YHBiaTBqPJUbwQWEdR7m crvmp9wotzljKoPfQKVmSIw5 OXu6UBYxzLqyUxArLMB7StA3 ZXJ0 iKYesT3ilVrwotyooX3pCgs+ YGp9h4ibrUGzAR3pmPE3IH95 YZ20iNCcs5V6mZF4O9ZfOBWp bmct cmswdPN7HKYzMPZsaS66Ng2p hJnvDt4xNJLzOEW2YVLgfUAh H7SxgF8jOyVtBJEaTGDrS6Qw eHQt ASerI691PCwpPnJ2TJQrykXf F3EsVZRhwEjpZpF8k8P3Sf9Y NZ56HF79WN05yMDht3O4sSR1 J3Bh CHHacjnnercuuRC6ROHlNCCp xG93Wo8hfJutNu1zIKGtRIE9 PGWouJThY2IdvY8iKwNzELIb MDAw D3UldIUsRImiX424XNueQtD8 QJBhluCpL7KeERAbeFfaMjD9 l7B5Iy8HJm25ZB93BP16rDYn c3R5 lBA1A8BzMPBnnblfaagsrYG9 LAQoKBOffK53Hm1vgNxeTf7k YKYeRHC2LPJonAOnX8PikH8o OiAj YETjEBUfG2XgtALyBNcsZ553 ZPbnGmG1SBKphtOkQ6JnVTNm cKzsGlR7c7D2Ej7AKWcqrlt3 L3Rk PjwvdHI+TI57EDJpWF88lHJf kEIvd6caoCv2RuSzYNMxFFC0 fGauMJyml5YqRZQqT05luRDj c2U6 IGN (more content not included)... Normal [facility] Reminder Messageson 01-03-20 Reminder Messages - From: BALJIT PISANO DO To: [facility] Clinical Pool ([email or web address]); Sent: 01/01/2023 10:45:19 EDT ! Show up: [...] patient of results, patient verbalized understanding. Normal [facility] HBsAg Screen LCon 01-01-2023 HBsAg Screen LC Negative Invalid Interpretation Code Negative [facility] Comment on above: Result Comment: Perf ormed At: [facility] [id number] Chai Apple PhD Ph:[phone] Performed By: #### 3 [id number], [id number], [id number], [id number], [id number], [id number] ####[facility] (DEFAULT)[address] [place] [address] HCV Antibody LCon 01-01-2023 Hep C Virus Ab LC Non-Reactive Invalid Interpretation Code Non Reactive [facility] Comment on above: Result Comment: HCV antibody alone does not differentiate between previously resolved infection and active infection. Equivocal and Reactive HCV antibody results should be followed up with an HCV RNA test to support the diagnosis of active HCV infection. Performed At: [facility] [address] [place], [place] [id number] Chai Apple PhD Ph:[phone] Performed By: #### 3 [id number], [id number], 4595742, [id number], [id number], [id number] ####[facility] (DEFAULT)[address] [place] [address]7537 Hep A Ab, Total LCon 08-24-2 023 Hep A Ab, Total LC Positive Abnormal Negative [facility] Comment on above: Result Comment: Perf ormed At: [facility] [address] [id number] Chai Apple PhD Ph:[phone] Performed By: #### 3 [id number], [id number], 0236195, 19511399, [id number], [id number] ####[facility] (DEFAULT)[address] [place] [address]96 Outside Recordson 01-01-2023 Outside Records [id number]#1.00OTG TIFF Normal [facility] Patient Handouton 01-01-2023 Patient Handout [id number]#1.00OTG TIFF Normal [facility] .Auto Diff 112-31-2022 Auto [place] % 8 % Normal 05-22 [facility] Comment on above: Performed By: #### 3 [id number], [id number], 5493529, 95313693, 00413099, [id number] ####[facility] (DEFAULT)[address] [place] [address] Baso Abs# 0.0 x10 Normal 0.0-0.2 [facility] Comment on above: Performed By: #### 3 [id number], 18089620, 7661680, 31224156, 19654304, [id number] ####[facility] (DEFAULT)[address] [place] [address]22 Basophils/100 WBC (Bld) 0.6 % Normal 0.2-2.0 [facility] Comment on above: Performed By: #### 3 [id number], 39601200, 5070732, 39380942, 64241048, [id number] ####[facility] (DEFAULT)[address] [place] [address]1944 Eos Abs# 0.1 x10 Normal 0.0-0.4 [facility] Comment on above: Performed By: #### 3 1055530, 56963850, 2118271, 63690011, 06485752, [id number] ####[facility] (DEFAULT)[address] [place] [address]164 Eosinophils/100 WBC (Bld) 1.9 % Normal 0.9-4.0 [facility] Comment on above: Performed By: #### 3 0535995, 54438001, 7261513, 62465547, 71771852, [id number] ####[facility] (DEFAULT)[address] [place] [address] 16650 Lymph Abs# 1.8 x10 Normal 1.3-2.9 [facility] Comment on above: Performed By: #### 3 3485718, 79949903, 2925736, 78263953, 87605712, [id number] ####[facility] (DEFAULT)[address] [place] [address] 59990 Lymphocytes/100 WBC (Bld) 27 % Normal 14-48 [facility] Comment on above: Performed By: #### 3 6931945, 15524966, 0728565, 36962883, 18207057, [id number] ####[facility] (DEFAULT)[address] [place] [address] [place] Abs# 0.5 x10 Normal 0.0-0.8 [facility] Comment on above: Performed By: #### 3 8605303, 89365938, 1241150, 74168322, 95650085, [id number] ####[facility] (DEFAULT)[address] [place] [address] 64149 Neut Abs# 4.3 x10 Normal 1.5-9.2 [facility] Comment on above: Performed By: #### 3 6927585, 89819281, 0890713, 87331470, 83886137, [id number] ####[facility] (DEFAULT)[address] [place] [address] 49628 Neutrophils/100 WBC (Bld) 63 % Normal 44-88 [facility] Comment on above: Performed By: #### 3 1155098, 46048948, 9703392, 66479721, 69430527, [id number] ####[facility] (DEFAULT)[address] [place] [address] CBC w/ Auto Diffon 3 Erythrocyte distribution width (RBC) [Ratio] 13.0 % Normal 11.5-15.0 [facility] Comment on above: Performed By: #### 3 4318104, 80338140, 7389795, 26557677, 06009573, [id number] ####[facility] (DEFAULT)[address] [place] [address] Hematocrit (Bld) [Volume fraction] 43.9 % Normal 34.8-51.9 [facility] Comment on above: Performed By: #### 3 7805177, 65803244, 5230017, 15425880, 85646852, [id number] ####[facility] (DEFAULT)[address] [place] [address] Hemoglobin (Bld) [Mass/Vol] 15.4 g/dL Normal 11.8-17.7 [facility] Comment on above: Performed By: #### 3 5585470, 63354904, 3551548, 30154091, 20483942, [id number] ####[facility] (DEFAULT)[address] [place] [address] Man Diff? Auto Invalid Interpretation Code [facility] Comment on above: Performed By: #### 3 5546251, 37854198, 5400453, 77566588, 89353342, [id number] ####[facility] (DEFAULT)[address] [place] [address] MCH (RBC) [Entitic mass] 30 pg Normal 24-34 [facility] Comment on above: Performed By: #### 3 6899237, 47347023, 0702568, 58780980, 57292836, [id number] ####[facility] (DEFAULT)[address] [place] [address] MCHC (RBC) [Mass/Vol] 35 g/dL Normal 26-37 [facility] Comment on above: Performed By: #### 3 4597599, 21300957, 7190177, 05681307, 47167492, [id number] ####[facility] (DEFAULT)[address] [place] [address] 22480 MCV (RBC) [Entitic vol] 86 fL Normal 81-100 [facility] Comment on above: Performed By: #### 3 [id number], [id number], [id number], [id number], [id number], [id number] ####[facility] (DEFAULT)[address] [place] [address] 16029 Platelet 252 x10 Normal 138-427 [facility] Comment on above: Performed By: #### 3 [id number], [id number], [id number], [id number], [id number], [id number] ####[facility] (DEFAULT)[address] [place] [address] 19989 Platelet mean volume (Bld) [Entitic vol] 8.5 fL Normal 6.3-10.2 [facility] Comment on above: Performed By: #### 3 [id number], [id number], [id number], [id number], [id number], [id number] ####[facility] (DEFAULT)[address] [place] [address] 69738 RBC 5.08 x10 Normal 3.70-5.30 [facility] Comment on above: Performed By: #### 3 [id number], [id number], [id number], [id number], [id number], [id number] ####[facility] (DEFAULT)[address] [place] [address] 07213 WBC 6.8 x10 Normal 3.5-10.5 [facility] Comment on above: Performed By: #### 3 [id number], [id number], [id number], [id number], [id number], [id number] ####[facility] (DEFAULT)[address] [place] [address] 48323 Liver Enzymeson 12-31-2022 Alk Phos 62 IU/L Normal 32-91 [facility] Comment on above: Performed By: #### 3 [id number], [id number], [id number], [id number], [id number], [id number] ####[facility] (DEFAULT)[address] [place] [address] ALT [Catalytic activity/Vol] 60.0 U/L High 8.0-36.0 [facility] Comment on above: Performed By: #### 3 [id number], [id number], [id number], [id number], [id number], [id number] ####[facility] (DEFAULT)[address] [place] [address] AST [Catalytic activity/Vol] 41 U/L High 13-38 [facility] Comment on above: Performed By: #### 3 [id number], [id number], [id number], [id number], [id number], [id number] ####[facility] (DEFAULT)[address] [place] [address] Gamma glutamyl transferase [Catalytic activity/Vol] 26.0 U/L Normal 7.0-26.0 [facility] Comment on above: Performed By: #### 3 [id number], [id number], [id number], [id number], [id number], [id number] ####[facility] (DEFAULT)[address] [place] [address] Patient Handouton 12-30-2022 Patient Handout [id number] TGTIFF Normal [facility] SECURITIES RESEARCH ANALYST ANTIBODIESon 09-22-2022 SECURITIES RESEARCH ANALYST Antibodies 0.3 AI Normal 0.0-0.9 [facility] Comment on above: Performed By: #### R NPAB #### [facility] [address] [place] [address] Dr. Radha Owens SJOGRENS ANTIBODIES (Anti SS A/B)on 09-22-2022 Sjogren's Anti-SS-A <0.2 Normal 0.0-0.9 [facility] Comment on above: Performed By: #### S AASSAB #### [facility] [address] [address] [address] Radha Owens Sjogren's Anti-SS-B <0.2 Normal 0.0-0.9 [facility] Comment on above: Performed By: #### S AASSAB #### [facility] [address] [address] [address] Radha Owens SLE PROFILE Bon 09-22-2022 TENA Direct Negative Normal Negative [facility] Comment on above: Performed By: #### S LEPB #### [facility] [address] [address] [address] Radha Owens Anti-DNA (DS) Ab Qn 2 IU/mL Normal 0-9 [facility] Comment on above: Result Comment: Nega tive <5 Equivocal 5 - 9 Positive >9 Performed By: #### S LEPB #### [facility] [address] [place] [address] Dr. Radha Owens Antichromatin Antibodies <0.2 Normal 0.0-0.9 [facility] Comment on above: Performed By: #### S LEPB #### [facility] [address] [address] [address] Radha Owens Complement C3, Serum 161 mg/dL Normal 82-167 [facility] Comment on above: Performed By: #### S LEPB #### [facility] [address] [place] [address] Dr. Radha Owens Complement C4, Serum 23 mg/dL Normal 12-38 [facility] Comment on above: Performed By: #### S LEPB #### [facility] [address] [address] [address] Radha Owens NEWBERRY ANTIBODIESon Newberry Antibodies <0.2 Normal 0.0-0.9 [facility] Comment on above: Performed By: #### S MITHAB #### [facility] [address] [address] [address] Radha Owens RHEUMATOID FACTORon 09-21-19 23 RA Latex Turbid. <10.0 Normal <14.0 [facility] Comment on above: Performed By: #### R F ####[facility] [id number] [address]Dr. Radha Owens TENA by IFAon 09-18-2022 Antinuclear Antibodies, IFA Positive Abnormal [facility] Comment on above: Result Comment: Nega tive <1:80 Borderline 1:80 Positive >1:80 Performed By: #### A NAIFA #### [facility] [address] [address] [address] Radha Owens Centriole Pattern Normal [facility] Comment on above: Performed By: #### A NAIFA #### [facility] [address] [address] [address] Radha Owens Centromere Pattern Normal [facility] Comment on above: Performed By: #### A NAIFA #### [facility] [address] [address] [address] Radha Owens Homogeneous Pattern 1:320 Critically high [facility] Comment on above: Result Comment: ICAP nomenclature: AC-1 Performed By: #### A NAIFA #### [facility] [address] [address] [address] Radha Owens Midbody Pattern Normal [facility] Comment on above: Performed By: #### A NAIFA #### [facility] [address] [address] [address] Radha Owens Note: Comment Normal [facility] Comment on above: Result Comment: For more [...] titers Nucleosomes, Histones Drug-induced SLE Speckled Sm, SECURITIES RESEARCH ANALYST, SCL-70, SLE,MCTD,PSS (diffuse form), SS-A/SS-B Sjogrens Nucleolar SCL-70, PM-1/SCL High titers Scleroderma, PM/DM Centromere Centromere PSS (limited form) w/Crest syndrome variable Nuclear Dot Sp100,e89-[id number] Primary Biliary Cirrhosis Nuclear GP210, Primary Biliary Cirrhosis Membrane subhash A,B,C Performed By: #### Rachid SOSA #### [address] [place] [address] [address]. Radha Owens Nuclear Dot Pattern Normal [facility] Comment on above: Performed By: #### A NAIFA #### [facility] [address] [place] [address] Dr. Radha Owens Nuclear Membrane Pattern Normal [facility] Comment on above: Performed By: #### A NAIFA #### [facility] [address] [place] [address] Dr. Radha Owens Nucleolar Pattern Normal [facility] Comment on above: Performed By: #### A NAIFA #### [facility] [address] [place] [address] Dr. Radha Owens PCNA Pattern Normal [facility] Comment on above: Performed By: #### A NAIFA #### [facility] [address] [place] [address] Dr. Radha Owens Speckled Pattern Normal [facility] Comment on above: Performed By: #### A NAIFA #### [facility] [address] [place] [address] Dr. Radha Owens Spindle Apparatus Pattern [facility] Comment on above: Performed By: #### A NAIFA #### [facility] [address] [place] [address] Dr. Radha Owens RHEUMATOID FACTORon 09-17-19 RA Latex Turbid. <10.0 Normal <14.0 [facility] Comment on above: Performed By: #### R F ####[facility] [id number] [address]Dr. Radha Owens CBC AUTO DIFFon 09-15-2022 BASO # 0.0 103/ul Normal 0.0-0.1 [facility] Comment on above: Performed By: #### C BC #### [facility] [address] [place] [address] Dr. Radha Owens Basophils/100 WBC (Bld) 0.6 % Normal 0.2-2.0 [facility] Comment on above: Performed By: #### C BC #### [facility] [address] [place] [address] Dr. Radha Owens EO # 0.1 103/ul Normal 0.0-0.7 [facility] Comment on above: Performed By: #### C BC #### [facility] [address] [place] [address] Dr. Radha Owens Eosinophils/100 WBC (Bld) 1.8 % Normal 0.9-7.0 [facility] Comment on above: Performed By: #### C BC #### [facility] [address] [place] [address] Dr. Radha Owens Erythrocyte distribution width (RBC) [Ratio] 12.3 % Normal 11.0-15.0 [facility] Comment on above: Performed By: #### C BC #### [facility] [address] [place] [address] Dr. Radha Owens Hematocrit (Bld) [Volume fraction] 42.2 % Normal 42.0-54.0 [facility] Comment on above: Performed By: #### C BC #### [facility] [address] [place] [address] Dr. Radha Owens Hemoglobin (Bld) [Mass/Vol] 14.3 g/dL Normal 14.0-18.0 [facility] Comment on above: Performed By: #### C BC #### [facility] [address] [place] [address] Dr. Radha Owens IG # 0.02 10e3/ul Normal 0.00-0.03 [facility] Comment on above: Performed By: #### C BC #### [facility] [address] [place] [address] Dr. Radha Owens IG % 0.3 % Normal 0.0-0.5 [facility] Comment on above: Performed By: #### C BC #### [facility] [address] [place] [address] Dr. Radha Owens LYMPH # 1.8 103/ul Normal 1.2-3.8 [facility] Comment on above: Performed By: #### C BC #### [facility] [address] [place] [address] Dr. Radha Owens Lymphocytes/100 WBC (Bld) 27.8 % Normal 20.5-60.0 [facility] Comment on above: Performed By: #### C BC #### [facility] [address] [place] [address] Dr. Radha Owens MANUAL DIFF REQ NO Normal [facility] Comment on above: Performed By: #### C BC #### [facility] [address] [place] [address] Dr. Radha Owens MCH (RBC) [Entitic mass] 29.8 pg Normal 25.9-34.0 [facility] Comment on above: Performed By: #### C BC #### [facility] [address] [place] [address] Dr. Radha Owens MCHC (RBC) [Mass/Vol] 33.9 g/dL Normal 29.9-35.2 [facility] Comment on above: Performed By: #### C BC #### [facility] [address] [place] [address] Dr. Radha Owens MCV (RBC) [Entitic vol] 87.9 fL Normal 80.0-94.0 [facility] Comment on above: Performed By: #### C BC #### [facility] [address] [place] [address] Dr. Radha Owens MONO # 0.7 103/ul Normal 0.3-0.8 [facility] Comment on above: Performed By: #### C BC #### [facility] [address] [place] [address] Dr. Radha Owens Monocytes/100 WBC (Bld) 11.3 % Normal 1.7-12.0 [facility] Comment on above: Performed By: #### C BC #### [facility] [address] [place] [address] Dr. Radha Owens NEUT # 3.8 103/ul Normal 1.4-6.5 [facility] Comment on above: Performed By: #### C BC #### [facility] [address] [place] [address] Dr. Radha Owens Neutrophils/100 WBC (Bld) 58.2 % Normal 43.0-75.0 [facility] Comment on above: Performed By: #### C BC #### [facility] [address] [place] [address] Dr. Radha Owens Platelet mean volume (Bld) [Entitic vol] 10.4 fL Normal 9.5-13.5 [facility] Comment on above: Performed By: #### C BC #### [facility] [address] [place] [address] Dr. Radha Owens PLT 235 103/ul Normal 150-450 [facility] Comment on above: Performed By: #### C BC #### [facility] [address] [place] [address] Dr. Radha Owens RBC 4.80 106/ul Normal 4.70-6.10 [facility] Comment on above: Performed By: #### C BC #### [facility] [address] [place] [address] Dr. Radha Owens WBC 6.5 103/ul Normal 4.0-11.0 [facility] Comment on above: Performed By: #### C BC #### [facility] [address] [place] [address] Dr. Radha Owens PROF 14(COMP METB)on 023 Albumin [Mass/Vol] 3.9 g/dL Normal 3.4-5.0 [facility] Comment on above: Performed By: #### C MP, URIC #### [facility] [address] [place] [address] Dr. Radha Owens Albumin/Globulin [Mass ratio] 1.0 {ratio} Normal [facility] Comment on above: Performed By: #### C MP, URIC #### [facility] [address] [place] [address] Dr. Radha Owens ALP [Catalytic activity/Vol] 73 U/L Normal 46-116 [facility] Comment on above: Performed By: #### C MP, URIC #### [facility] [address] [place] [address] Dr. Radha Owens ALT [Catalytic activity/Vol] 66 U/L Critically high 16-63 [facility] Comment on above: Performed By: #### C MP, URIC #### [facility] [address] [address] [address] Radha Owens Anion gap [Moles/Vol] 13.2 mmol/L Normal Th [facility] Comment on above: Performed By: #### C MP, URIC #### [facility] [address] [address] [address] Radha Owens AST [Catalytic activity/Vol] 31 U/L Normal 15-37 [facility] Comment on above: Performed By: #### C MP, URIC #### [facility] [address] [address] [address] Radha Owens Bilirubin [Mass/Vol] 0.8 mg/dL Normal 0.2-1.0 [facility] Comment on above: Performed By: #### C MP, URIC #### [facility] [address] [place] [address] Dr. Radha Owens Calcium [Mass/Vol] 9.2 mg/dL Normal 8.5-10.1 [facility] Comment on above: Performed By: #### C MP, URIC #### [facility] [address] [place] [address] Dr. Radha Owens Chloride [Moles/Vol] 107 mmol/L Normal 98-107 [facility] Comment on above: Performed By: #### C MP, URIC #### [facility] [address] [place] [address] Dr. Radha Owens CO2 [Moles/Vol] 26.0 mmol/L Normal 21.0-32.0 [facility] Comment on above: Performed By: #### C MP, URIC #### [facility] [address] [place] [address] Dr. Radha Owens Creatinine [Mass/Vol] 0.89 mg/dL Normal 0.70-1.30 [facility] Comment on above: Performed By: #### C MP, URIC #### [facility] [address] [place] [address] Dr. Radha Owens EGFR-AF COMORAN >60 Normal >=60 [facility] Comment on above: Performed By: #### C MP, URIC #### [facility] [address] [address] [address] Radha Owens EGFR-NON AF COMORAN >60 Normal >=60 [facility] Comment on above: Performed By: #### C MP, URIC #### [facility] [address] [address] [address] Radha Owens Globulin (S) [Mass/Vol] 4.1 g/dL Normal [facility] Comment on above: Performed By: #### C MP, URIC #### [facility] [address] [address] [address] Radha Owens Glucose [Mass/Vol] 99 mg/dL Normal 74-106 [facility] Comment on above: Performed By: #### C MP, URIC #### [facility] [address] [address] [address] Radha Owens Potassium [Moles/Vol] 4.2 mmol/L Normal 3.5-5.1 [facility] Comment on above: Performed By: #### C MP, URIC #### [facility] [address] [address] [address] Radha Owens Protein [Mass/Vol] 8.0 g/dL Normal 6.4-8.2 [facility] Comment on above: Performed By: #### C MP, URIC #### [facility] [address] [address] [address] Radha Owens Sodium [Moles/Vol] 142 mmol/L Normal 136-145 [facility] Comment on above: Performed By: #### C MP, URIC #### [facility] [address] [address] [address] Radha Owens Urea nitrogen [Mass/Vol] 13.0 mg/dL Normal 6.4-19.3 [facility] Comment on above: Performed By: #### C MP, URIC #### [facility] [address] [address] [address] Radha Owens Urea nitrogen/Creatinine [Mass ratio] 14.6 mg/mg Normal [facility] Comment on above: Performed By: #### C MP, URIC #### [facility] [address] [address] [address] Radha Owens SED RATE WESTERGRENon 2022 SED RATE 12 mm/hr Normal <=15 [facility] Comment on above: Performed By: #### S EDR #### [facility] [address] [address] [address] Radha Owens URIC ACID SERUMon 09-15-2022 Urate [Mass/Vol] 5.9 mg/dL Normal 3.5-7.2 [facility] Comment on above: Performed By: #### C MP, URIC #### [facility] [address] [place] [address] Dr. Radha Owens US CLIF DOP LEG [...] the right lower extremity. Electronically authenticated by: SANJAY ROJAS Date: 2022-07-03 17:14 Normal [facility] COVID Quick Testingon 2021 Result Negative [employer] Other MRI Knee w/o Righton MRI Knee [...] by Rafita Farris on 05/01/[address] [facility] [employer] KNEE RIGHTon 04-18-2021 KNEE RIGHT EXAMINATION: KNEE RI GHT, 04/18/2021 5:05 PM EST HISTORY: Traumatic injury, pain COMPARISON: None. TECHNIQUE: Right knee x-ray: 2 view(s). FINDINGS: Bones are normal density. No fracture, no bone destruction. Small knee effusion noted. Subcutaneous edema is seen. IMPRESSION: 1. No acute traumatic osseous pathology 2. Subcutaneous edema, possible small knee effusion Normal [facility] XR ANKLE 3 VIEWS - LEFTon [...] Noriega MD on 12/25/2017 2:18 PM Normal [facility] Vital Signs Date Time Vital Sign Value Performing Clinician Facility 12-31-2023 10:31-0400 Body height 182.88 cm [facility] 12-31-2023 10:31-0400 Body mass index (BMI) [Ratio] 56.2 kg/m2 [facility] 12-31-2023 [id number] Body weight 188.24 kg [facility] 12-31-2023 10:31-0400 Diastolic blood pressure 80 mm[Hg] [facility] 12-31-2023 10:31-0400 Heart rate 97 /min [facility] 12-31-2023 10:31-0400 SaO2% (BldA) [Mass fraction] 98 % [facility] 12-31-2023 10:31-0400 Systolic blood pressure 116 mm[Hg] [facility] 12-09-2023 11:15-0400 Body height 182.88 cm [facility] 12-09-2023 11:15-0400 Body mass index (BMI) [Ratio] 54.8 kg/m2 [facility] 12-09-2023 11:15-0400 Body weight 183.42 kg [facility] 12-09-2023 11:15-0400 Diastolic blood pressure 92 mm[Hg] [facility] 12-09-2023 11:15-0400 Heart rate 108 /min [facility] 12-09-2023 11:15-0400 Respiratory rate 20 /min [facility] 12-09-2023 11:15-0400 SaO2% (BldA) [Mass fraction] 98 % [facility] 12-09-2023 11:15-0400 Systolic blood pressure 144 mm[Hg] [facility] 11-09-2023 08:32-0400 Body height 182.88 cm REUBEN Diaz Work Phone: [facility] 11-09-2023 08:32-0400 Body mass index (BMI) [Ratio] 53.8 kg/m2 REUBEN Diaz Work Phone: [facility] 11-09-2023 08:32-0400 Body weight 180.07 kg REUBEN Diaz Work Phone: [facility] 11-09-2023 08:32-0400 Diastolic blood pressure 78 mm[Hg] REUBEN Diaz Work Phone: [facility] 11-09-2023 08:32-0400 Heart rate 91 /min [employer] Leatha Lucasrbacher Work Phone: [facility] 11-09-2023 08:32-0400 SaO2% (BldA) [Mass fraction] 98 % [employer] Leatha Lucasrbacher Work Phone: [facility] 11-09-2023 08:32-0400 Systolic blood pressure 118 mm[Hg] [employer] Leatha Lucasrbacher Work Phone: [facility] 10-22-2023 09:32-0400 Body height 182.88 cm [employer] Leatha Lucasrbacher Work Phone: [facility] 10-22-2023 09:32-0400 Body mass index (BMI) [Ratio] 54.5 kg/m2 [employer] Leatha Lucasrbacher Work Phone: [facility] 10-22-2023 09:32-0400 Body weight 182.37 kg [employer] Leatha Lucasrbacher Work Phone: [facility] 10-22-2023 09:32-0400 Diastolic blood pressure 71 mm[Hg] [employer] Leatha Lucasrbacher Work Phone: [facility] 10-22-2023 09:32-0400 Heart rate 114 /min [employer] GUNJyoti JamilLeatha Lucasrbacher Work Phone: [facility] 10-22-2023 09:32-0400 Respiratory rate 20 /min [employer] Leatha Lucasrbacher Work Phone: [facility] 10-22-2023 09:32-0400 SaO2% (BldA) [Mass fraction] 95 % [employer] GUNJyoti RmLeatha Lucasrbacher Work Phone: [facility] 10-22-2023 09:32-0400 Systolic blood pressure 120 mm[Hg] [employer] G[employer]oti Zavalarbacher Work Phone: [facility] 10-12-2023 15:58-0400 Body height 182.88 cm [employer] Leatha Zavalarbacher Work Phone: [facility] 10-12-2023 15:58-0400 Body mass index (BMI) [Ratio] 54.2 kg/m2 [employer] G[employer] Zavalarbacher Work Phone: [facility] 10-12-2023 15:58-0400 Body weight 181.43 kg [employer] Leatha Lucasrbacher Work Phone: [facility] 10-12-2023 15:58-0400 Diastolic blood pressure 76 mm[Hg] [employer] Leatha Lucasrbacher Work Phone: [facility] 10-12-2023 15:58-0400 Heart rate 112 /min [employer] Leatha Lucasrbacher Work Phone: [facility] 10-12-2023 15:58-0400 SaO2% (BldA) [Mass fraction] 98 % [employer] Leatha Zavalarbacher Work Phone: [facility] 10-12-2023 15:58-0400 Systolic blood pressure 118 mm[Hg] [employer] Leatha Zavalarbacher Work Phone: [facility] 09-24-2023 14:27-0400 Body height 182.88 cm [employer] Leatha Lucasrbacher Work Phone: [facility] 09-24-2023 14:27-0400 Body mass index (BMI) [Ratio] 53.4 kg/m2 [employer] Leatha Lucasrbacher Work Phone: [facility] 09-24-2023 14:27-0400 Body weight 178.71 kg [employer] Leatha Lucasrbacher Work Phone: [facility] 09-24-2023 14:27-0400 Diastolic blood pressure 78 mm[Hg] [employer] GUNJyoti JamilLeatha Lucasrbacher Work Phone: [facility] 09-24-2023 14:27-0400 Heart rate 110 /min [employer] Leatha Lucasrbacher Work Phone: [facility] 09-24-2023 14:27-0400 SaO2% (BldA) [Mass fraction] 98 % [employer] Leatha Lucasrbacher Work Phone: [facility] 09-24-2023 14:27-0400 Systolic blood pressure 128 mm[Hg] [employer] GUNJyoti JamilLeatha Lucasrbacher Work Phone: [facility] 09-10-2023 10:28-0400 Body height 182.88 cm [employer] Leatha Lucasrbacher Work Phone: [facility] 09-10-2023 10:28-0400 Body mass index (BMI) [Ratio] 54.3 kg/m2 [employer] G[employer]Jyoti JamilLeatha Lucasrbacher Work Phone: [facility] 09-10-2023 10:28-0400 Body weight 181.6 kg [employer] Leatha Lucasrbacher Work Phone: [facility] 09-10-2023 10:28-0400 Diastolic blood pressure 87 mm[Hg] [employer] Leatha Lucasrbacher Work Phone: [facility] 09-10-2023 10:28-0400 Heart rate 102 /min PLASTERER SPRAY GUNJyoti Zavalarbacher Work Phone: [facility] 09-10-2023 10:28-0400 Respiratory rate 20 /min PLASTERER SPRAY GUNJyoti JamilLeatha Lucasrbacher Work Phone: [facility] 09-10-2023 10:28-0400 SaO2% (BldA) [Mass fraction] 97 % PLASTERER SPRAY GUNJyoti JamilLeatha Lucasrbacher Work Phone: [facility] 09-10-2023 10:28-0400 Systolic blood pressure 134 mm[Hg] PLASTERER SPRAY GUNJyoti Zavalarbacher Work Phone: [facility] 08-27-2023 10:38-0400 Body height 182.88 cm PLASTERER SPRAY GUNJyoti Diaz Work Phone: [facility] 08-27-2023 10:38-0400 Body mass index (BMI) [Ratio] 54.5 kg/m2 P[employer] SPR[employer] GUNJyoti Quintanillaacher Work Phone: [facility] 08-27-2023 10:38-0400 Body weight 182.34 kg PLASTERER SPRAY GUNJyoti Zhang Lucassamantha Work Phone: [facility] 08-27-2023 10:38-0400 Diastolic blood pressure 74 mm[Hg] P[employer]ER[employer] SPRAY GUNJyoti Zhang Lucassamantha Work Phone: [facility] 08-27-2023 10:38-0400 Heart rate 104 /min PLASTERER SPRAY GUNJyoti Diaz Work Phone: [facility] 08-27-2023 10:38-0400 SaO2% (BldA) [Mass fraction] 98 % PLASTERER SPRAY GUNJyoti Diaz Work Phone: [facility] 08-27-2023 10:38-0400 Systolic blood pressure 116 mm[Hg] PLASTERER SPRAY GUNJyoti Diaz Work Phone: [facility] 08-13-2023 10:02-0400 Body height 182.88 cm DO Baljit House Work Phone: [facility] 08-13-2023 10:02-0400 Body mass index (BMI) [Ratio] 55.2 kg/m2 DO Baljit House Work Phone: [facility] 08-13-2023 10:02-0400 Body weight 184.75 kg DO Baljit House Work Phone: [facility] 08-13-2023 10:02-0400 Diastolic blood pressure 49 mm[Hg] DO Baljit House Work Phone: [facility] 08-13-2023 10:02-0400 Heart rate 99 /min DO Baljit House Work Phone: [facility] 08-13-2023 10:02-0400 Respiratory rate 20 /min DO Baljit Pisano Work Phone: [facility] 08-13-2023 10:02-0400 SaO2% (BldA) [Mass fraction] 96 % DO Baljit Pisano Work Phone: [facility] 08-13-2023 10:02-0400 Systolic blood pressure 121 mm[Hg] DO Baljit Pisano Work Phone: [facility] 07-21-2023 09:16-0400 Body height 182.9 cm Pattie Shendge V, PA Work Phone: [facility] 07-21-2023 09:16-0400 Body mass index (BMI) [Ratio] 55.2 kg/m2 Pattie Shendge V, PA Work Phone: [employer] 07-21-2023 09:16-0400 Body weight 184.61 kg Pattie Shendge V, PA Work Phone: [employer] 07-21-2023 09:16-0400 Heart rate 85 /min Pattie Shendge V, PA Work Phone: [employer] 07-21-2023 09:16-0400 Respiratory rate 16 /min Pattie Shendge V, PA Work Phone: [employer] 07-07-2023 13:25-0500 Body height 185.42 cm DO Baljit Pisano Work Phone: [facility] 07-07-2023 13:25-0500 Body mass index (BMI) [Percentile] Per age and sex 99.9 % DO Baljit Pisano Work Phone: [facility] 07-07-2023 13:25-0500 Body mass index (BMI) [Ratio] 53.1 kg/m2 DO Baljit Pisano Work Phone: [facility] 07-07-2023 13:25-0500 Body weight 182.79 kg DO Baljit House Work Phone: [facility] 07-07-2023 13:25-0500 Diastolic blood pressure 82 mm[Hg] DO Baljit House Work Phone: [facility] 07-07-2023 13:25-0500 Heart rate 97 /min DO Baljit House Work Phone: [facility] 07-07-2023 13:25-0500 SaO2% (BldA) [Mass fraction] 98 % DO Baljit Pisano Work Phone: [facility] 07-07-2023 13:25-0500 Systolic blood pressure 126 mm[Hg] DO Baljit House Work Phone: [facility] 05-26-2023 14:15-0500 Body height 185.42 cm Imad Asaad Other [facility] 05-26-2023 14:15-0500 Body mass index (BMI) [Ratio] 51.45 kg/m2 Imad Asaad Other [employer] Other 05-26-2023 14:15-0500 Body weight 176.9 kg Imad Asaad Other [facility] 04-21-2023 13:45-0500 Body height 185.42 cm Imad Asaad Other [employer] Other 04-21-2023 13:45-0500 Body mass index (BMI) [Ratio] 51.84 kg/m2 Imad Asaad Other [employer] Other 04-21-2023 13:45-0500 Body weight 178.26 kg Imad Asaad Other [employer] Other 04-21-2023 13:45-0500 Diastolic blood pressure 82 mm[Hg] Imad Asaad Other [employer] Other 04-21-2023 13:45-0500 Systolic blood pressure 147 mm[Hg] Imad Asaad Other [employer] Other 03-19-2023 13:00-0500 Body height 185.42 cm Imad Asaad Other [employer] Other 03-19-2023 13:00-0500 Body mass index (BMI) [Ratio] 51.87 kg/m2 Imad Asaad Other [employer] Other 03-19-2023 13:00-0500 Body weight 178.36 kg Imad Asaad Other [employer] Other 03-19-2023 13:00-0500 Diastolic blood pressure 68 mm[Hg] Imad Asaad Other [employer] Other 03-19-2023 13:00-0500 Systolic blood pressure 76 mm[Hg] Imad Asaad Other [employer] Other 02-04-2022 10:55-0400 Body height 179.07 cm Devika King Other [employer] Other 02-04-2022 10:55-0400 Body mass index (BMI) [Ratio] 44.55 kg/m2 Devika iKng Other [employer] Other 02-04-2022 10:55-0400 Body temperature 97.5 [degF] Devika King Other [employer] Other 02-04-2022 10:55-0400 Body weight 142.88 kg Devika King Other [employer] Other 02-04-2022 10:55-0400 Respiratory rate 18 /min Devika King Other [employer] Other 02-04-2022 10:55-0400 SaO2% (BldA) [Mass fraction] 97 % Devika King Other [employer] Other Encounters Encounter Date Encounter Type Care Provider Facility Start: 01-21-2024 End: 01-21-2024 Emergency department patient visit LEATHA DIA[facility] Start: 12-31-2023 End: 12-31-2023 ambulatory [facility] Work Phone: Start: 12-31-2023 End: 12-31-2023 Patient encounter procedure [facility] Work Phone: Start: 12-15-2023 End: 12-15-2023 ambulatory [facility] Work Phone: Start: 12-15-2023 End: 12-15-2023 Patient encounter procedure [facility] Work Phone: Start: 12-09-2023 End: 12-09-2023 ambulatory [facility] Work Phone: Start: 12-09-2023 End: 12-09-2023 Patient encounter procedure [facility] Work Phone: Start: 11-09-2023 End: 11-09-2023 ambulatory REUBEN Diaz Work Phone: [facility] Work Phone: Start: 11-09-2023 End: 11-09-2023 Patient encounter procedure REUBEN Diaz Work Phone: [facility] Work Phone: Start: 10-30-2023 End: 10-31-2023 Emergency department patient visit RAFITA Segura [facility] Start: 10-22-2023 End: 10-22-2023 ambulatory [employer] G[employer]Jyoti JamilLeatha Emily Work Phone: [facility] Work Phone: Start: 10-22-2023 End: 10-22-2023 Patient encounter procedure P[employer] SPR[employer] GUNJyoti Diaz Work Phone: [facility] Work Phone: Start: 10-12-2023 End: 10-12-2023 ambulatory [employer] G[employer]Jyoti JamilLeatha Emily Work Phone: [facility] Work Phone: Start: 10-12-2023 End: 10-12-2023 Patient encounter procedure REUBEN Diaz Work Phone: [facility] Work Phone: Start: 10-08-2023 End: 10-08-2023 Emergency department patient visit [facility] Start: 09-25-2023 End: 09-26-2023 ambulatory [facility] Start: 09-24-2023 End: 09-24-2023 Patient encounter procedure REUBEN Diaz Work Phone: [facility] Work Phone: Start: 09-10-2023 End: 09-10-2023 Patient encounter procedure PLASTER[employer] SPRAY GUNJyoti Diaz Work Phone: [facility] Work Phone: Start: 08-27-2023 End: 08-27-2023 ambulatory P[employer] SPR[employer] GUNJyoti Diaz Work Phone: [facility] Work Phone: Start: 08-27-2023 End: 08-27-2023 Patient encounter procedure REUBEN Zhang Emily Work Phone: [facility] Work Phone: Start: 08-19-2023 End: 08-19-2023 ambulatory [employer] G[employer]Jyoti Zhang Emily Work Phone: [facility] Work Phone: Start: 08-19-2023 End: 08-19-2023 Patient encounter procedure REUBEN Zhang Emily Work Phone: [facility] Work Phone: Start: 08-13-2023 End: 08-13-2023 ambulatory DO Baljit House Work Phone: [facility] Work Phone: Start: 08-13-2023 End: 08-13-2023 Patient encounter procedure DO Baljit House Work Phone: [facility] [place] Work Phone: Start: 08-13-2023 End: 08-13-2023 ambulatory DO Baljit House Work Phone: [facility] Work Phone: Start: 08-13-2023 End: 08-13-2023 Patient encounter procedure DO Baljit House Work Phone: [facility] Work Phone: Start: 08-07-2023 Non-patient / Non-visit DO Baljit House Work Phone: [facility] Work Phone: Start: 07-21-2023 End: 07-22-2023 ambulatory PATTIE [facility]GE V [facility] Start: 07-21-2023 End: 07-21-2023 ambulatory PATTIE SHENDGE V [facility] Start: 07-21-2023 End: 07-21-2023 Office outpatient new 30 minutes Pattie Cox PA Work Phone: [facility] Comment on above: Positive TENA (antinu clear antibody) (Primary Dx); Chronic fatigue; Pain in both hands; Bilateral carpal tunnel syndrome Start: 07-08-2023 Non-patient / Non-visit DO Baljit House Work Phone: [facility] Work Phone: Start: 07-07-2023 End: 07-07-2023 Patient encounter procedure DO Baljit House Work Phone: [facility] Work Phone: Start: 06-30-2023 End: 07-01-2023 Emergency department patient visit SANJAY WEBSTER [facility] Start: 05-26-2023 End: 05-26-2023 ambulatory Imad Asaad Other [facility] [employer] Other Start: 05-26-2023 Office outpatient visit 25 minutes Imad Asaad [facility] Start: 05-26-2023 End: 05-26-2023 Patient encounter procedure DO Baljit Pisano Work Phone: [facility]- Start: 05-19-2023 End: 05-19-2023 ambulatory Baljit House Facility:[facility] Start: 05-19-2023 End: 05-19-2023 ambulatory DO Baljit House Work Phone: [facility] Work Phone: Start: 05-19-2023 End: 05-19-2023 Patient encounter procedure DO Baljit House Work Phone: [facility] [address] Work Phone: Start: 04-29-2023 End: 04-30-2023 ambulatory BALJIT P HOUSE Facility:[facility] Start: 04-27-2023 End: 04-27-2023 ambulatory Imad Asaad Other [employer] Other Start: 04-27-2023 Telephone encounter Imad Asaad [facility] Start: 04-21-2023 End: 04-21-2023 ambulatory Baljit House Facility:[facility] Start: 04-21-2023 End: 04-21-2023 Patient encounter procedure DO Baljit House Work Phone: [facility] [place] Work Phone: Start: 04-21-2023 End: 04-21-2023 ambulatory DO Baljit House Work Phone: [facility] Work Phone: Start: 04-21-2023 Office outpatient ne w 45 minutes Imad Asaad [facility] Start: 04-07-2023 End: 04-08-2023 ambulatory BALJIT P HOUSE Facility:[facility] Start: 04-01-2023 End: 04-01-2023 ambulatory Imad Asaad Facility:[facility] Start: 04-01-2023 End: 04-01-2023 ambulatory DO Baljit House Work Phone: [facility] Work Phone: Start: 04-01-2023 End: 04-01-2023 Patient encounter procedure DO Baljit House Work Phone: [facility] Work Phone: Start: 03-23-2023 End: 03-23-2023 ambulatory Imad Asaad Other [employer] Other Start: 03-23-2023 Telephone encounter Imad Asaad [facility] Start: 03-19-2023 Office outpatient ne w 45 minutes Imad Asaad [facility] Start: 03-19-2023 End: 03-19-2023 ambulatory DO Baljit House Work Phone: [employer] Other Start: 03-19-2023 End: 03-19-2023 Patient encounter procedure DO Baljit House Work Phone: [facility] [place] Work Phone: Start: 02-12-2023 End: 02-13-2023 ambulatory BALJIT PISANO Facility:[facility] Start: 01-28-2023 End: 01-29-2023 ambulatory BALJIT PISANO Facility:[facility] Start: 01-09-2023 End: 01-10-2023 ambulatory BALJIT PISANO [facility] Start: 01-07-2023 End: 01-08-2023 ambulatory BALJIT PISANO Facility:[facility] Start: 12-31-2022 End: 01-01-2023 ambulatory BALJIT PISANO [facility] Start: 12-30-2022 End: 12-31-2022 ambulatory Rafita Stover MD Facility:[facility] Start: 09-19-2022 End: 09-20-[address] BALJIT PISANO Facility:[facility] Start: 09-15-2022 End: 09-16-[address] BALJIT PISANO Facility:[facility] Start: 07-03-2022 End: 07-04-[address] BALJIT PISANO Facility:[facility] Start: 02-04-2022 End: 02-04-2022 ambulatory Devika King Other [employer] Other Start: 02-04-2022 Office outpatient ne w 30 minutes Devika King [facility] Start: 12-25-2017 End: 12-26-2017 Patient encounter BALJIT Keith PISANO [facility] Procedures Date Procedure Procedure Detail Performing Clinician Start: 05-19-2023 Radiography of thora cic spine DO Baljit Pisano Work Phone: Start: 05-19-2023 X-ray of both knees DO [employer] Work Phone: Start: 04-01-2023 Ultrasound elastogra phy of liver DO Baljit [employer] Work Phone: Plan of Treatment Date Care Activity Detail Author Start: 01-03-2026 DTaP,Tdap and Td Vaccines (7 - Td or Tdap) DTaP,Tdap and Td Vaccines (7 - Td or Tdap) [facility] Start: 07-20-2024 Adult BMI Screening Adult BMI Screen ing [facility] Start: 07-20-2024 Tobacco Screening Tobacco Screening [facility] Start: 10-22-2023 End: 10-22-2023 Telemedicine consultation with patient 10/22/2023 9:30 AM EDT Telemedicine [facility] [address] [place] [address] [address] [place] [address] Pattie Cox PA [address] [facility] [place] [address] [facility] Start: 08-13-2023 Patient referral [facility] Work Phone: Start: 08-13-2023 Insulin [Units/volum e] in Serum or Plasma [facility] Start: 07-21-2023 End: 07-20-2024 EMG EMG Neurology Routine Pain in both hands Bilateral carpal tunnel syndrome Expected: 07/21/2023 (Approximate), Expires: 07/20/2024 [facility] Work Phone: Comment on above: Expected: 07/21/2023 (Approximate), Expires: 07/20/2024 Start: 07-21-2023 End: 07-20-2024 XR Bones Limited Survey Views [facility] Comment on above: Expected: 07/21/2023 , Expires: 07/20/2024 Start: 05-19-2023 Hemolytic complement CH50 level [facility] Start: 05-19-2023 SECURITIES 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 ANALYST antibody measurement [facility] Start: 05-19-2023 [facility] Start: 04-01-2023 [facility] Start: 01-09-2023 Influenza vaccination Influenza Vacc ine [facility] Start: 07-11-2021 Adult BMI Follow Up Plan Adult BMI Follow Up Plan [facility] Start: 2015 Depression Screening Depression Scre ening [facility] Actin smooth muscle IgG Ab [Units/volume] in Serum [facility] Alpha 1 antitrypsin [Mass/volume] in Serum or Plasma [facility] Alpha 1 antitrypsin phenotyping [Identifier] in Serum or Plasma by Immunofixation [facility] Ceruloplasmin [Mass/volume] in Serum or Plasma [facility] CT Abdomen and Pelvi s WO and W contrast IV [facility] CT Abdomen WO and W contrast IV [facility] Fibrillarin Ab [Presence] in Serum [facility] Hemoglobin.gastroint jhon nal [Presence] in Stool [facility] Hepatitis A virus antibody, IgM type [facility] Hepatitis B core antibody measurement [facility] Hepatitis B core antibody measurement, IgM type [facility] Hepatitis B virus DN A [#/volume] (viral load) in Serum or Plasma by GITA with probe detection [facility] Hepatitis B virus DN A [log units/volume] (viral load) in Serum or Plasma by GITA with probe detection [facility] Hepatitis B virus DN A [Units/volume] (viral load) in Serum or Plasma by GITA with probe detection [facility] Hepatitis B virus surface Ab [Presence] in Serum [facility] Hepatitis B virus surface Ab [Units/volume] in Serum [facility] Hepatitis B virus surface Ag [Presence] in Serum or Plasma by Immunoassay [facility] Hepatitis C virus Ig G Ab [Presence] in Serum or Plasma by Immunoassay [facility] HFE gene mutations f ound [Identifier] in Blood or Tissue by Molecular genetics method Nominal [facility] Homogenous nuclear A b pattern [Titer] in Serum [facility] IgG [Mass/volume] in Serum or Plasma [facility] Lipoprotein a [Moles/volume] in Serum or Plasma [facility] Mitochondria M2 IgG Ab [Units/volume] in Serum [facility] Nuclear Ab [Titer] i n Serum [facility] Patient referral [facility] Work Phone: PM-SCL extractable nuclear Ab [Mass/volume] in Serum by Immune diffusion (ID) [facility] RNA polymerase III I gG Ab [Units/volume] in Serum or Plasma by Immunoassay [facility] Th-To Ab [Units/volu me] in Serum by Line blot [facility] Immunizations Immunization Date Immunization Notes Care Provider Nataly parada 12-14-2020 meningococcal oligosaccharide (groups A, C, Y and W-135) diphtheria toxoid conjugate vaccine (MCV4O) DO Baljit House Work Phone: [facility] 01-04-2016 meningococcal oligosaccharide (groups A, C, Y and W-135) diphtheria toxoid conjugate vaccine (MCV4O) DO Baljit House Work Phone: [facility] 01-04-2016 tetanus toxoid, redu sia diphtheria toxoid, and acellular pertussis vaccine, adsorbed REUBEN Diaz Work Phone: [facility] 01-18-2015 meningococcal oligosaccharide (groups A, C, Y and W-135) diphtheria toxoid conjugate vaccine (MCV4O) DO Baljit House Work Phone: [facility] 01-18-2015 tetanus toxoid, redu sia diphtheria toxoid, and acellular pertussis vaccine, adsorbed REUBEN Diaz Work Phone: [facility] 12-29-2013 poliovirus vaccine, inactivated DO Baljit House Work Phone: [facility] 07-20-2013 diphtheria, tetanus toxoids and acellular pertussis vaccine DO Baljit House Work Phone: [facility] 07-20-2013 hepatitis A vaccine, pediatric/adolescent dosage, 2 dose schedule DO Baljit House Work Phone: [facility] 04-15-2013 hepatitis B vaccine, pediatric or pediatric/adolescent dosage DO Baljit House Work Phone: [facility] 04-15-2013 poliovirus vaccine, inactivated DO Baljit House Work Phone: [facility] 04-15-2013 varicella virus vaccine DO [facility] Work Phone: [facility] 01-17-2013 diphtheria, tetanus toxoids and acellular pertussis vaccine DO Baljit House Work Phone: [facility] 01-17-2013 hepatitis B vaccine, pediatric or pediatric/adolescent dosage DO Baljit House Work Phone: [facility] 01-17-2013 measles, mumps and rubella virus vaccine DO Baljit House Work Phone: [facility] 01-17-2013 poliovirus vaccine, inactivated DO Baljit House Work Phone: [facility] 12-28-2012 hepatitis A vaccine, pediatric/adolescent dosage, 2 dose schedule DO Baljit House Work Phone: [facility] 12-14-2012 diphtheria, tetanus toxoids and acellular pertussis vaccine DO Baljit House Work Phone: [facility] 12-14-2012 hepatitis B vaccine, pediatric or pediatric/adolescent dosage DO Baljit Pisano Work Phone: [facility] 12-14-2012 measles, mumps and rubella virus vaccine DO Baljit House Work Phone: [facility] 12-14-2012 poliovirus vaccine, inactivated DO Baljit House Work Phone: [facility] 12-14-2012 varicella virus vaccine DO Nigel Pisano Work Phone: [facility] 2003 diphtheria, tetanus toxoids and acellular pertussis vaccine, unspecified formulation DO Baljit Pisano Work Phone: [facility] 2003 haemophilus influenz ae type b conjugate and Hepatitis B vaccine DO Baljit House Work Phone: [facility] 2003 pneumococcal conjuga te vaccine, 7 valent DO Baljit House Work Phone: [facility] 2003 poliovirus vaccine, inactivated DO Baljit House Work Phone: [facility] Payers Date Payer Category Payer Self-pay [id number] 12-31-2022 [employer] ( [employer] others) [id number] 12-31-2022 [employer] ( and others) [id number] 05-11-2017 [employer] ( and others) [facility] [id number] 05/11/2017-Present [phone] [address] [place] [address] [id number] 05-11-2017 [employer] ( and others) [id number] 11-25-2012 [employer] ( and others) [id number] 2003 Unknown [id number] 2.16.840.1.549088.3.579.2. 593 2003 Unknown [id number] 2.16.840.1.507316.3.579.2. 593 2003 Unknown [id number] 2.16.840.1.510689.3.579.2. 593 2003 Unknown [id number] 2.16.840.1.277192.3.579.2. 718 2003 Unknown [id number] 2.16.840.1.908406.3.579.2. 718 2003 Unknown [id number] 2.16.840.1.428563.3.579.2. 718 2003 Unknown [id number] 2.16.840.1.444932.3.579.2. 718 2003 Unknown [id number] 2.16.840.1.325786.3.579.2. 718 2003 Unknown [id number] 2.16.840.1.981454.3.579.2. 2003 Unknown [id number] 2.16.840.1.276031.3.579.2. 2003 Unknown [id number] 2.16.840.1.413506.3.579.2. 2003 Unknown [id number] 2.16.840.1.846474.3.579.2. 2003 Unknown [id number] 2.16.840.1.205837.3.579.2. 1285 2003 Unknown [id number] 2.16.840.1.839116.3.579.2. 1285 2003 Unknown [id number] 2.16.840.1.058277.3.579.2. 1285 2003 Unknown [id number] 2.16.840.1.317140.3.579.2. 1285 2003 Unknown [id number] 2.16.840.1.518434.3.579.2. 1285 2003 Unknown [id number] 2.16.840.1.614672.3.579.2. 1285 2003 Unknown [id number] 2.16.840.1.508149.3.579.2. 1285 2003 Unknown [id number] 2.16.840.1.744554.3.579.2. 1285 2003 Unknown [id number] 2.16.840.1.948979.3.579.2. 6 05-11-1961 [employer] ( and others) [id number] 05-11-1961 [employer] ( and others) [id number] [employer] ( and others) [facility] [id number] Unknown [id number] 2.16.840.1.756792.3.579.2. 531 Unknown [id number] 2.16.840.1.635020.3.579.2. 531 Unknown [id number] 2.16.840.1.799718.3.579.2. 531 Unknown [id number] 2.16.840.1.872929.3.579.2. 531 Social History Date Type Detail Facility Unknown if ever smoked [employer] Other Start: 06-21-2020 End: 07-21-2023 [facility] Start[facility] Assigned At [facility] Start: 02-20-2022 End: 12-31-2023 Tobacco smoking status NHIS Never smoked tobacco [facility] Start: 02-20-2022 Tobacco use and exposure Smokeless tobacco non-user [facility] Start: 07-21-2023 Alcohol intake Ex-drinker (finding) [facility] [employer] [facility] Start: 06-21-2020 End: 07-21-2023 History of Social function [facility] Childcare Unknown [facility] Start: 2003 Sex Assigned At Not on file [facility] [employer] [facility] Goals Date Patient Goal Desired Activity /State Clinical Notes 02-04-2022 to 10-22-2023 Note Date & Type Note Facility 10-22-2023 Evaluation note Authored October 22, 2023 10:11am Highest weight: 407.5 lbs Do wn 5.4 lbs Start weight: 407.5 lbs. he is down 5.4 lbs. today with a weight of 402.1 lbs. Up 1.5 lbs since last visit 09/10/23. Starting Date: 08-13-2023. 1. Abnormal weight gain. He is a big strong individual. He continues strength training. He does not have any family history from his dad and his dad side of the family. He has obesity and his maternal grandfather, maternal grandmother and maternal aunt. He denies a family history of type 2 diabetes. 2. Obesity-improved. This is his second visit back. We tried an Ozempic sample. He could consider compounded semaglutide in the future, but currently not affordable. He would like to consider bariatric surgery in the future. He is a big strong individual and we want to make sure we protect his muscle mass. He needs to lose some weight around his belly for his fatty liver, insulin resistance and low HDL. His insurance does not cover weight loss medications. He notes his family does not have financial issues for healthy eating. He lives with his mom, step-dad and step brothers and sisters. His diet has always been poor that when he was growing up they did not have a lot of money and they would eat a lot of cheap processed foods. 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 He notes in high school he put on a lot of weight but was active in 3 sports but had a very poor diet at home and had a job so could go by his own fast foods. He notes nothing healthy . He notes that the beginning of he started a keto diet and during the entire time of quarantine he stayed on that diet eating less than 20 g of carbs a day and lost 80 pounds, he felt he got down to 232 pounds but gained all the weight back when he stopped keto. He notes he did not feel well on keto. He had not diet at all till this New Year's again and since that time has been eating from 7 AM till 10 AM in the morning and also between 5 to 8 PM at night. He notes breakfast is tended to be chicken and rice and dinner a vegetable and a protein. Despite doing this since May he has not lost any weight and may have gained weight. He notes his weight was 402 when he made that New 's resolution. He does have known fatty liver and has seen gastroenterology. He was in the ER for chest pain in May but notes she has had no further chest pain. His A1c was starting the program was borderline high at 5.6. He does have some depression with his PHQ-9 of 18 with starting the program and does carry a diagnosis on the chart of bipolar disorder. He notes he tried medication in the past 7 years ago when he was diagnosed with depression but did not continue on the medication. He is uncertain what that medication was. His PCP is Leatha Diaz. 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 The patient has a number of weight related health issues including fatty liver, depression and possible insulin resistance. Behavioral: The patient's previous eating habits prior to starting our program fair. Before starting the program the biggest reasons for weight struggles include increased appetite, consistency. Exercise before starting the program:going to gym and lifting weights 3 x week.the patient will treat with long-term lifestyle changes of improved nutrition, increased exercise and activity, stress reduction, adequate sleep and behavioral modification versus short-term dieting. 3. Fatty liver-treat with healthy lifestyle changes and hopefully greater than 10% weight loss. He has had a full workup by GI and a FibroScan. 4. Insulin resistance/acanthosis nigracans-treat with healthy lifestyle changes and recommended GLP-1 agonist. Consider metformin. 5. Bipolar disorder-his PHQ-9 was 18 with starting the program. I am sending him to behavioral health for evaluation and treatment. If he truly has bipolar disorder we could not consider an antidepressant unless he was on a mood stabilizing medication. 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 Treat also with good sleep hygiene. Consider trying to get a day job. 7. Fibromyalgia 8. Mixed hyperlipidemia-treat with decreasing the simple sweets, added sugars, refined starches, and bad/added fats, increasing activity and exercise and continued long-term weight loss. Follow up with me in 6 weeks. New labs needed: Up-to-date. Monitor cholesterol profile, ALT with treatment. Salivary cortisol x 2 ordered/pending. Author Kareem Tijerina [facility] Authored September 10, 2023 11:24a m Highest weight: 407.5 lbs Do wn 6.9 lbs. Start weight: 407.5 lbs. he is down 6.9 lbs. today with a weight of 400.6 lbs. last visit 2023. Starting Date: 08-13-2023. 1. Abnormal weight gain. He is a big strong individual. He continues strength training. He does not have any family history from his dad and his dad side of the family. He has obesity and his maternal grandfather, maternal grandmother and maternal aunt. He denies a family history of type 2 diabetes. 2. Obesity-improved. This is his first visit back. We are going to try an Ozempic sample and consider compounded semaglutide in the future. He would also like to consider bariatric surgery in the future. He is a big strong individual and we want to make sure we protect his muscle mass. He needs to lose some weight around his belly for his fatty liver, insulin resistance and low HDL. His insurance does not cover weight loss medications. He notes his family does not have financial issues for healthy eating. He lives with his mom, step-dad and step brothers and sisters. His diet has always been poor that when he was growing up they did not have a lot of money and they would eat a lot of cheap processed foods. 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 He notes in high school he put on a lot of weight but was active in 3 sports but had a very poor diet at home and had a job so could go by his own fast foods. He notes nothing healthy . He notes that the beginning of he started a keto diet and during the entire time of quarantine he stayed on that diet eating less than 20 g of carbs a day and lost 80 pounds, he felt he got down to 232 pounds but gained all the weight back when he stopped keto. He notes he did not feel well on keto. He had not diet at all till this New Year's again and since that time has been eating from 7 AM till 10 AM in the morning and also between 5 to 8 PM at night. He notes breakfast is tended to be chicken and rice and dinner a vegetable and a protein. Despite doing this since May he has not lost any weight and may have gained weight. He notes his weight was 402 when he made that New 's resolution. He does have known fatty liver and has seen gastroenterology. He was in the ER for chest pain in May but notes she has had no further chest pain. His A1c was starting the program was borderline high at 5.6. He does have some depression with his PHQ-9 of 18 with starting the program and does carry a diagnosis on the chart of bipolar disorder. He notes he tried medication in the past 7 years ago when he was diagnosed with depression but did not continue on the medication. He is uncertain what that medication was. His PCP is Leatha Diaz. 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 The patient has a number of weight related health issues including fatty liver, depression and possible insulin resistance. Behavioral: The patient's previous eating habits prior to starting our program fair. Before starting the program the biggest reasons for weight struggles include increased appetite, consistency. Exercise before starting the program:going to gym and lifting weights 3 x week.the patient will treat with long-term lifestyle changes of improved nutrition, increased exercise and activity, stress reduction, adequate sleep and behavioral modification versus short-term dieting. 3. Fatty liver-treat with healthy lifestyle changes and hopefully greater than 10% weight loss. He has had a full workup by GI and a FibroScan. 4. Insulin resistance/acanthosis nigracans-treat with healthy lifestyle changes and recommended GLP-1 agonist. Consider metformin. 5. Bipolar disorder-his PHQ-9 was 18 with starting the program. I am sending him to behavioral health for evaluation and treatment. If he truly has bipolar disorder we could not consider an antidepressant unless he was on a mood stabilizing medication. 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 Treat also with good sleep hygiene. Consider trying to get a day job. 7. Fibromyalgia 8. Mixed hyperlipidemia-treat with decreasing the simple sweets, added sugars, refined starches, and bad/added fats, increasing activity and exercise and continued long-term weight loss. Follow up with me in 5 weeks. New labs needed: Up-to-date. Monitor cholesterol profile, ALT with treatment. Salivary cortisol x 2 ordered/pending. Author Zaida Frias [facility] Authored December 09, 2023 11:3 2am Assessment: Highest weight: 407.5 lbs Down 2.9 lbs Start weight: 407.5 lbs. he is down 2.9 lbs. today with a weight of 404.6 lbs. He is up 2.5 lbs since last visit 10/22/2023. Starting Date: 08-13-2023. 1. Abnormal weight gain. He is a big strong individual. He continues strength training. He does not have any family history from his dad and his dad side of the family. He has obesity and his maternal grandfather, maternal grandmother and maternal aunt. He denies a family history of type 2 diabetes. 2. Obesity-improved. This is his second visit back. We tried an Ozempic sample. He could consider compounded semaglutide in the future, but currently not affordable. He would like to consider bariatric surgery in the future. He is a big strong individual and we want to make sure we protect his muscle mass. He needs to lose some weight around his belly for his fatty liver, insulin resistance and low HDL. His insurance does not cover weight loss medications. He notes his family does not have financial issues for healthy eating. He lives with his mom, step- dad and step brothers and sisters. His diet has always been poor that when he was growing up they did not have a lot of money and they would eat a lot of cheap processed foods. 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 He notes in high school he put on a lot of weight but was active in 3 sports but had a very poor diet at home and had a job so could go by his own fast foods. He notes nothing healthy . He notes that the beginning of he started a keto diet and during the entire time of quarantine he stayed on that diet eating less than 20 g of carbs a day and lost 80 pounds, he felt he got down to 232 pounds but gained all the weight back when he stopped keto. He notes he did not feel well on keto. He had not diet at all till this New Year's again and since that time has been eating from 7 AM till 10 AM in the morning and also between 5 to 8 PM at night. He notes breakfast is tended to be chicken and rice and dinner a vegetable and a protein. Despite doing this since May he has not lost any weight and may have gained weight. He notes his weight was 402 when he made that New Year's resolution. He does have known fatty liver and has seen gastroenterology. He was in the ER for chest pain in May but notes she has had no further chest pain. His A1c was starting the program was borderline high at 5.6. He does have some depression with his PHQ-9 of 18 with starting the program and does carry a diagnosis on the chart of bipolar disorder. He notes he tried medication in the past 7 years ago when he was diagnosed with depression but did not continue on the medication. He is uncertain what that medication was. His PCP is Leatha Diaz. 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 The patient has a number of weight related health issues including fatty liver, depression and possible insulin resistance. Behavioral: The patient's previous eating habits prior to starting our program fair. Before starting the program the biggest reasons for weight struggles include increased appetite, consistency. Exercise before starting the program:going to gym and lifting weights 3 x week.the patient will treat with long-term lifestyle changes of improved nutrition, increased exercise and activity, stress reduction, adequate sleep and behavioral modification versus short-term dieting. 3. Fatty liver-treat with healthy lifestyle changes and hopefully greater than 10% weight loss. He has had a full workup by GI and a FibroScan. 4. Insulin resistance/acanthosis nigracans-treat with healthy lifestyle changes and recommended GLP-1 agonist. Consider metformin. 5. Bipolar disorder-his PHQ-9 was 18 with starting the program. I am sending him to behavioral health for evaluation and treatment. If he truly has bipolar disorder we could not consider an antidepressant unless he was on a mood stabilizing medication. 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 Treat also with good sleep hygiene. Consider trying to get a day job. 7. Fibromyalgia 8. Mixed hyperlipidemia-treat with decreasing the simple sweets, added sugars, refined starches, and bad/added fats, increasing activity and exercise and continued long-term weight loss. Follow up with me in 6 weeks. New labs needed: Up-to-date. Monitor cholesterol profile, ALT with treatment. Salivary cortisol x 2 ordered/pending. [facility] Work Phone: [phone] Evaluation note* Author Kareem Tijerina [facility] Authored October 22, 2023 10:1 1am Highest weight: 407.5 lbs Do wn 5.4 lbs Start weight: 407.5 lbs. he is down 5.4 lbs. today with a weight of 402.1 lbs. Up 1.5 lbs since last visit 09/10/23. Starting Date: 08-13-2023. 1. Abnormal weight gain. He is a big strong individual. He continues strength training. He does not have any family history from his dad and his dad side of the family. He has obesity and his maternal grandfather, maternal grandmother and maternal aunt. He denies a family history of type 2 diabetes. 2. Obesity-improved. This is his second visit back. We tried an Ozempic sample. He could consider compounded semaglutide in the future, but currently not affordable. He would like to consider bariatric surgery in the future. He is a big strong individual and we want to make sure we protect his muscle mass. He needs to lose some weight around his belly for his fatty liver, insulin resistance and low HDL. His insurance does not cover weight loss medications. He notes his family does not have financial issues for healthy eating. He lives with his mom, step- dad and step brothers and sisters. His diet has always been poor that when he was growing up they did not have a lot of money and they would eat a lot of cheap processed foods. 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 He notes in high school he put on a lot of weight but was active in 3 sports but had a very poor diet at home and had a job so could go by his own fast foods. He notes nothing healthy . He notes that the beginning of he started a keto diet and during the entire time of quarantine he stayed on that diet eating less than 20 g of carbs a day and lost 80 pounds, he felt he got down to 232 pounds but gained all the weight back when he stopped keto. He notes he did not feel well on keto. He had not diet at all till this New Year's again and since that time has been eating from 7 AM till 10 AM in the morning and also between 5 to 8 PM at night. He notes breakfast is tended to be chicken and rice and dinner a vegetable and a protein. Despite doing this since May he has not lost any weight and may have gained weight. He notes his weight was 402 when he made that New Year's resolution. He does have known fatty liver and has seen gastroenterology. He was in the ER for chest pain in May but notes she has had no further chest pain. His A1c was starting the program was borderline high at 5.6. He does have some depression with his PHQ-9 of 18 with starting the program and does carry a diagnosis on the chart of bipolar disorder. He notes he tried medication in the past 7 years ago when he was diagnosed with depression but did not continue on the medication. He is uncertain what that medication was. His PCP is Leatha Diaz. 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 The patient has a number of weight related health issues including fatty liver, depression and possible insulin resistance. Behavioral: The patient's previous eating habits prior to starting our program fair. Before starting the program the biggest reasons for weight struggles include increased appetite, consistency. Exercise before starting the program:going to gym and lifting weights 3 x week.the patient will treat with long-term lifestyle changes of improved nutrition, increased exercise and activity, stress reduction, adequate sleep and behavioral modification versus short-term dieting. 3. Fatty liver-treat with healthy lifestyle changes and hopefully greater than 10% weight loss. He has had a full workup by GI and a FibroScan. 4. Insulin resistance/acanthosis nigracans-treat with healthy lifestyle changes and recommended GLP-1 agonist. Consider metformin. 5. Bipolar disorder-his PHQ-9 was 18 with starting the program. I am sending him to behavioral health for evaluation and treatment. If he truly has bipolar disorder we could not consider an antidepressant unless he was on a mood stabilizing medication. 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 Treat also with good sleep hygiene. Consider trying to get a day job. 7. Fibromyalgia 8. Mixed hyperlipidemia-treat with decreasing the simple sweets, added sugars, refined starches, and bad/added fats, increasing activity and exercise and continued long-term weight loss. Follow up with me in 6 weeks. New labs needed: Up-to-date. Monitor cholesterol profile, ALT with treatment. Salivary cortisol x 2 ordered/pending. Author Molly [facility] Authored December 15, 2023 9:4 0am Patient has been NPO other t jha plain water for the last 4 hours. Patient has not exercised for the last 4 hours. Patient has not consumed any caffeine, nutritional supplements, or medications containing Ephedra, MaHuang, Pseudoephedrine, or other decongestants or stimulants such as Adipex for the last 4 hours. Patient has not smoked or used any type of Nicotine products including patches, gum, and vapors for the last hour. Patient has followed all the preparatory guidelines for Calorimeter testing today and understands the results will be discussed with the Beader. RESULTS: RMR = 2620 Author Kareem Tijerina [facility] Authored December 09, 2023 11:4 5am Assessment: Highest weight: 407.5 lbs Down 2.9 lbs Start weight: 407.5 lbs. he is down 2.9 lbs. today with a weight of 404.6 lbs. He is up 2.5 lbs since last visit 10/22/2023. Starting Date: 08-13-2023. 1. Abnormal weight gain. He is a big strong individual. He continues strength training. He does not have any family history from his dad and his dad side of the family. He has obesity and his maternal grandfather, maternal grandmother and maternal aunt. He denies a family history of type 2 diabetes. 2. Obesity-improved initially with Ozempic sample but we tried off the medication and he had some weight regain. He does feel that its helpful to help better control his appetite without side effects. This is his third visit back. He could consider compounded semaglutide in the future, but currently not affordable. He should consider bariatric surgery in the future. He is a big strong individual and we want to make sure we protect his muscle mass. He needs to lose some weight around his belly for his fatty liver, insulin resistance and low HDL. His insurance does not cover weight loss medications. He notes his family does not have financial issues for healthy eating. He lives with his mom, step-dad and step brothers and sisters. His diet has always been poor that when he was growing up they did not have a lot of money and they would eat a lot of cheap processed foods. 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 He notes in high school he put on a lot of weight but was active in 3 sports but had a very poor diet at home and had a job so could go by his own fast foods. He notes nothing healthy . He notes that the beginning of COV he started a keto diet and during the entire time of quarantine he stayed on that diet eating less than 20 g of carbs a day and lost 80 pounds, he felt he got down to 232 pounds but gained all the weight back when he stopped keto. He notes he did not feel well on keto. He had not diet at all till this New Year's again and since that time has been eating from 7 AM till 10 AM in the morning and also between 5 to 8 PM at night. He notes breakfast is tended to be chicken and rice and dinner a vegetable and a protein. Despite doing this since May he has not lost any weight and may have gained weight. He notes his weight was 402 when he made that New Year's resolution. He does have known fatty liver and has seen gastroenterology. He was in the ER for chest pain in May but notes she has had no further chest pain. His A1c was starting the program was borderline high at 5.6. He is uncertain what that medication was. His PCP is Leatha Diaz. 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 The patient has a number of weight related health issues including fatty liver, depression and possible insulin resistance. Behavioral: The patient's previous eating habits prior to starting our program fair. Before starting the program the biggest reasons for weight struggles include increased appetite, consistency. Exercise before starting the program:going to gym and lifting weights 3 x week.the patient will treat with long-term lifestyle changes of improved nutrition, increased exercise and activity, stress reduction, adequate sleep and behavioral modification versus short-term dieting. 3. Fatty liver-treat with healthy lifestyle changes and hopefully greater than 10% weight loss. He has had a full workup by GI and a FibroScan. 4. Insulin resistance/acanthosis nigracans-treat with healthy lifestyle changes and recommended GLP-1 agonist. Consider metformin. 5. Bipolar disorder-his PHQ-9 was 18 with starting the program. I am sending him to behavioral health for evaluation and treatment. If he truly has bipolar disorder we could not consider an antidepressant unless he was on a mood stabilizing medication. 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 Treat also with good sleep hygiene. Consider trying to get a day job. 7. Fibromyalgia 8. Mixed hyperlipidemia-should be improving with somewhat healthier eating. He will continue to treat with decreasing the simple sweets, added sugars, refined starches, and bad/added fats, increasing activity and exercise and continued long-term weight loss. Follow up with me in 6 weeks. New labs needed: Up-to-date. Monitor cholesterol profile, ALT with treatment. Salivary cortisol x 2 ordered. [facility] Work Phone: [phone] Evaluation note* Author Kareem Tijerina [facility] Authored August 13, 2023 11:1 8am Assessment: Highest weight: 407.5 lbs Start weight: 407.5 lbs. Starting Date: 08-13-2023. 1. Abnormal weight gain. He is a big strong individual. He continues strength training. He does not have any family history from his dad and his dad side of the family. He has obesity and his maternal grandfather, maternal grandmother and maternal aunt. He denies a family history of type 2 diabetes. 2. Obesity-he is a big strong individual and we want to make sure we protect his muscle mass. He just needs to lose some weight around his belly. We are going to try Wegovy if covered by his insurance. He has no contraindications. He could consider compounded semaglutide if not covered and if affordable. He notes his family does not have financial issues for healthy eating. He lives with his mom, victorino and step brothers and sisters. His diet has always been poor that when he was growing up they did not have a lot of money and they would eat a lot of cheap processed foods. 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 He notes in high school he put on a lot of weight but was active in 3 sports but had a very poor diet at home and had a job so could go by his own fast foods. He notes nothing healthy . He notes that the beginning of he started a keto diet and during the entire time of quarantine he stayed on that diet eating less than 20 g of carbs a day and lost 80 pounds, he felt he got down to 232 pounds but gained all the weight back when he stopped keto. He notes he did not feel well on keto. He had not diet at all till this New Year's again and since that time has been eating from 7 AM till 10 AM in the morning and also between 5 to 8 PM at night. He notes breakfast is tended to be chicken and rice and dinner a vegetable and a protein. Despite doing this since May he has not lost any weight and may have gained weight. He notes his weight was 402 when he made that New Year's resolution. He does have known fatty liver and has seen gastroenterology. He was in the ER for chest pain in May but notes she has had no further chest pain. His A1c was starting the program was borderline high at 5.6. He does have some depression with his PHQ-9 of 18 with starting the program and does carry a diagnosis on the chart of bipolar disorder. He notes he tried medication in the past 7 years ago when he was diagnosed with depression but did not continue on the medication. He is uncertain what that medication was. His PCP is Leatha Diaz. 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 The patient has a number of weight related health issues including fatty liver, depression and possible insulin resistance. Behavioral: The patient's previous eating habits prior to starting our program fair. Before starting the program the biggest reasons for weight struggles include increased appetite, consistency. Exercise before starting the program:going to gym and lifting weights 3 x week.the patient will treat with long-term lifestyle changes of improved nutrition, increased exercise and activity, stress reduction, adequate sleep and behavioral modification versus short-term dieting. 3. Fatty liver-treat with healthy lifestyle changes and hopefully greater than 10% weight loss. He has had a full workup by GI and a FibroScan. 4. Insulin resistance/acanthosis nigracans-treat with healthy lifestyle changes and recommended GLP-1 agonist. Consider metformin. 5. Bipolar disorder-his PHQ-9 was 18 with starting the program. I am sending him to behavioral health for evaluation and treatment. If he truly has bipolar disorder we could not consider an antidepressant unless he was on a mood stabilizing medication. 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 Treat also with good sleep hygiene. Consider trying to get a day job. 7. Fibromyalgia Follow up with me in 4 weeks. New labs needed: Fasting cholesterol profile and insulin level being done now. Salivary cortisol x 2 ordered. The patient was instructed to consider logging all foods and caloric beverages. I highly recommended minimizing or stopping caloric beverages including alcohol. The importance of preplanning, shopping at the edge of the store, decreasing unhealthy food cues and environmental control stressed. I recommend packing snacks and meals when out of the home. Remove trigger/unhealthy foods if possible from the home. No macronutrient is completely restricted. We discussed the addictive nature and unhealthy biological changes that occur with ultra processed food. We discussed the brain and peripheral biological changes with obesity that make it a chronic disease. Importance of cooking most food items from scratch discussed. No skipping any meals. Avoid added sugar, refined starches, and added fats. I highly recommended preference for whole foods/real foods. Foods from the farm, not from the factory. The plate method discussed and handout given. Lean unprocessed protein with each meal and each snack to help control appetite, decrease cravings and lessen muscle loss with weight loss advised. Consider use of a protein shake or protein bar instead of missing a meal. The patient will try to get at least 5 or more servings of low carbohydrate veggies/salads daily. Recommend regular follow-up with our registered dietitian. Benefits of regular exercise including cardio and resistance training discussed and recommended as appropriate for the patient. Slowly increase activity. Our exercise program was recommended with our business editor/obesity exercise group. Handout given. Our free weekly group support/food triggers program was highly recommended to help with long-term behavioral change and support. Handout given. The patient must start healthy behavioral changes. The patient was instructed on good sleep hygiene and on the importance of adequate sleep. Circadian rhythm and the importance of mealtime discussed. I recommended stress reduction. Medication addition and subtraction options discussed. Risks and benefits of prescribed meds discussed. Initial [id number]-[id number] interview/evaluation. The patient was counseled in detail on the options for weight loss in an individual setting. 55 minutes was spent caring for the patient, counseling/educating patient on the options for the treatment of obesity and related healthcare issues. The program's treatment goals were reviewed with the patient. Each aspect of the program was discussed with the patient. [facility] Work Phone: [phone]) 414-880104-04-2024 Evaluation note* Author Kareem Tijerina [facility] Authored August 13, 2023 11:1 8am Assessment: Highest weight: 407.5 lbs Start weight: 407.5 lbs. Starting Date: 08-13-2023. 1. Abnormal weight gain. He is a big strong individual. He continues strength training. He does not have any family history from his dad and his dad side of the family. He has obesity and his maternal grandfather, maternal grandmother and maternal aunt. He denies a family history of type 2 diabetes. 2. Obesity-he is a big strong individual and we want to make sure we protect his muscle mass. He just needs to lose some weight around his belly. We are going to try Wegovy if covered by his insurance. He has no contraindications. He could consider compounded semaglutide if not covered and if affordable. He notes his family does not have financial issues for healthy eating. He lives with his mom, victorino and step brothers and sisters. His diet has always been poor that when he was growing up they did not have a lot of money and they would eat a lot of cheap processed foods. 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 He notes in high school he put on a lot of weight but was active in 3 sports but had a very poor diet at home and had a job so could go by his own fast foods. He notes nothing healthy . He notes that the beginning of he started a keto diet and during the entire time of quarantine he stayed on that diet eating less than 20 g of carbs a day and lost 80 pounds, he felt he got down to 232 pounds but gained all the weight back when he stopped keto. He notes he did not feel well on keto. He had not diet at all till this New Year's again and since that time has been eating from 7 AM till 10 AM in the morning and also between 5 to 8 PM at night. He notes breakfast is tended to be chicken and rice and dinner a vegetable and a protein. Despite doing this since May he has not lost any weight and may have gained weight. He notes his weight was 402 when he made that New Year's resolution. He does have known fatty liver and has seen gastroenterology. He was in the ER for chest pain in May but notes she has had no further chest pain. His A1c was starting the program was borderline high at 5.6. He does have some depression with his PHQ-9 of 18 with starting the program and does carry a diagnosis on the chart of bipolar disorder. He notes he tried medication in the past 7 years ago when he was diagnosed with depression but did not continue on the medication. He is uncertain what that medication was. His PCP is Leatha Diaz. 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 The patient has a number of weight related health issues including fatty liver, depression and possible insulin resistance. Behavioral: The patient's previous eating habits prior to starting our program fair. Before starting the program the biggest reasons for weight struggles include increased appetite, consistency. Exercise before starting the program:going to gym and lifting weights 3 x week.the patient will treat with long-term lifestyle changes of improved nutrition, increased exercise and activity, stress reduction, adequate sleep and behavioral modification versus short-term dieting. 3. Fatty liver-treat with healthy lifestyle changes and hopefully greater than 10% weight loss. He has had a full workup by GI and a FibroScan. 4. Insulin resistance/acanthosis nigracans-treat with healthy lifestyle changes and recommended GLP-1 agonist. Consider metformin. 5. Bipolar disorder-his PHQ-9 was 18 with starting the program. I am sending him to behavioral health for evaluation and treatment. If he truly has bipolar disorder we could not consider an antidepressant unless he was on a mood stabilizing medication. 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 Treat also with good sleep hygiene. Consider trying to get a day job. 7. Fibromyalgia Follow up with me in 4 weeks. New labs needed: Fasting cholesterol profile and insulin level being done now. Salivary cortisol x 2 ordered. The patient was instructed to consider logging all foods and caloric beverages. I highly recommended minimizing or stopping caloric beverages including alcohol. The importance of preplanning, shopping at the edge of the store, decreasing unhealthy food cues and environmental control stressed. I recommend packing snacks and meals when out of the home. Remove trigger/unhealthy foods if possible from the home. No macronutrient is completely restricted. We discussed the addictive nature and unhealthy biological changes that occur with ultra processed food. We discussed the brain and peripheral biological changes with obesity that make it a chronic disease. Importance of cooking most food items from scratch discussed. No skipping any meals. Avoid added sugar, refined starches, and added fats. I highly recommended preference for whole foods/real foods. Foods from the farm, not from the factory. The plate method discussed and handout given. Lean unprocessed protein with each meal and each snack to help control appetite, decrease cravings and lessen muscle loss with weight loss advised. Consider use of a protein shake or protein bar instead of missing a meal. The patient will try to get at least 5 or more servings of low carbohydrate veggies/salads daily. Recommend regular follow-up with our registered dietitian. Benefits of regular exercise including cardio and resistance training discussed and recommended as appropriate for the patient. Slowly increase activity. Our exercise program was recommended with our business editor/obesity exercise group. Handout given. Our free weekly group support/food triggers program was highly recommended to help with long-term behavioral change and support. Handout given. The patient must start healthy behavioral changes. The patient was instructed on good sleep hygiene and on the importance of adequate sleep. Circadian rhythm and the importance of mealtime discussed. I recommended stress reduction. Medication addition and subtraction options discussed. Risks and benefits of prescribed meds discussed. Initial [id number]-fv-[id number] interview/evaluation. The patient was counseled in detail on the options for weight loss in an individual setting. 55 minutes was spent caring for the patient, counseling/educating patient on the options for the treatment of obesity and related healthcare issues. The program's treatment goals were reviewed with the patient. Each aspect of the program was discussed with the patient. Author Kareem Tijerina [facility] Authored September 10, 2023 11:24a m Highest weight: 407.5 lbs Do wn 6.9 lbs. Start weight: 407.5 lbs. he is down 6.9 lbs. today with a weight of 400.6 lbs. last visit 2023. Starting Date: 08-13-2023. 1. Abnormal weight gain. He is a big strong individual. He continues strength training. He does not have any family history from his dad and his dad side of the family. He has obesity and his maternal grandfather, maternal grandmother and maternal aunt. He denies a family history of type 2 diabetes. 2. Obesity-improved. This is his first visit back. We are going to try an Ozempic sample and consider compounded semaglutide in the future. He would also like to consider bariatric surgery in the future. He is a big strong individual and we want to make sure we protect his muscle mass. He needs to lose some weight around his belly for his fatty liver, insulin resistance and low HDL. His insurance does not cover weight loss medications. He notes his family does not have financial issues for healthy eating. He lives with his mom, step-dad and step brothers and sisters. His diet has always been poor that when he was growing up they did not have a lot of money and they would eat a lot of cheap processed foods. 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 He notes in high school he put on a lot of weight but was active in 3 sports but had a very poor diet at home and had a job so could go by his own fast foods. He notes nothing healthy . He notes that the beginning of he started a keto diet and during the entire time of quarantine he stayed on that diet eating less than 20 g of carbs a day and lost 80 pounds, he felt he got down to 232 pounds but gained all the weight back when he stopped keto. He notes he did not feel well on keto. He had not diet at all till this New Year's again and since that time has been eating from 7 AM till 10 AM in the morning and also between 5 to 8 PM at night. He notes breakfast is tended to be chicken and rice and dinner a vegetable and a protein. Despite doing this since May he has not lost any weight and may have gained weight. He notes his weight was 402 when he made that New Year's resolution. He does have known fatty liver and has seen gastroenterology. He was in the ER for chest pain in May but notes she has had no further chest pain. His A1c was starting the program was borderline high at 5.6. He does have some depression with his PHQ-9 of 18 with starting the program and does carry a diagnosis on the chart of bipolar disorder. He notes he tried medication in the past 7 years ago when he was diagnosed with depression but did not continue on the medication. He is uncertain what that medication was. His PCP is Leatha Diaz. 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 The patient has a number of weight related health issues including fatty liver, depression and possible insulin resistance. Behavioral: The patient's previous eating habits prior to starting our program fair. Before starting the program the biggest reasons for weight struggles include increased appetite, consistency. Exercise before starting the program:going to gym and lifting weights 3 x week.the patient will treat with long-term lifestyle changes of improved nutrition, increased exercise and activity, stress reduction, adequate sleep and behavioral modification versus short-term dieting. 3. Fatty liver-treat with healthy lifestyle changes and hopefully greater than 10% weight loss. He has had a full workup by GI and a FibroScan. 4. Insulin resistance/acanthosis nigracans-treat with healthy lifestyle changes and recommended GLP-1 agonist. Consider metformin. 5. Bipolar disorder-his PHQ-9 was 18 with starting the program. I am sending him to behavioral health for evaluation and treatment. If he truly has bipolar disorder we could not consider an antidepressant unless he was on a mood stabilizing medication. 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 Treat also with good sleep hygiene. Consider trying to get a day job. 7. Fibromyalgia 8. Mixed hyperlipidemia-treat with decreasing the simple sweets, added sugars, refined starches, and bad/added fats, increasing activity and exercise and continued long-term weight loss. Follow up with me in 5 weeks. New labs needed: Up-to-date. Monitor cholesterol profile, ALT with treatment. Salivary cortisol x 2 ordered/pending. [facility] Work Phone: 1([phone]) 556-796004-04-2024 Evaluation note* Author Kareem Tijerina [facility] Authored August 13, 2023 11:1 8am Assessment: Highest weight: 407.5 lbs Start weight: 407.5 lbs. Starting Date: 08-13-2023. 1. Abnormal weight gain. He is a big strong individual. He continues strength training. He does not have any family history from his dad and his dad side of the family. He has obesity and his maternal grandfather, maternal grandmother and maternal aunt. He denies a family history of type 2 diabetes. 2. Obesity-he is a big strong individual and we want to make sure we protect his muscle mass. He just needs to lose some weight around his belly. We are going to try Wegovy if covered by his insurance. He has no contraindications. He could consider compounded semaglutide if not covered and if affordable. He notes his family does not have financial issues for healthy eating. He lives with his mom, victorino and step brothers and sisters. His diet has always been poor that when he was growing up they did not have a lot of money and they would eat a lot of cheap processed foods. 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 He notes in high school he put on a lot of weight but was active in 3 sports but had a very poor diet at home and had a job so could go by his own fast foods. He notes nothing healthy . He notes that the beginning of he started a keto diet and during the entire time of quarantine he stayed on that diet eating less than 20 g of carbs a day and lost 80 pounds, he felt he got down to 232 pounds but gained all the weight back when he stopped keto. He notes he did not feel well on keto. He had not diet at all till this New Year's again and since that time has been eating from 7 AM till 10 AM in the morning and also between 5 to 8 PM at night. He notes breakfast is tended to be chicken and rice and dinner a vegetable and a protein. Despite doing this since May he has not lost any weight and may have gained weight. He notes his weight was 402 when he made that New Year's resolution. He does have known fatty liver and has seen gastroenterology. He was in the ER for chest pain in May but notes she has had no further chest pain. His A1c was starting the program was borderline high at 5.6. He does have some depression with his PHQ-9 of 18 with starting the program and does carry a diagnosis on the chart of bipolar disorder. He notes he tried medication in the past 7 years ago when he was diagnosed with depression but did not continue on the medication. He is uncertain what that medication was. His PCP is Leatha Diaz. 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 The patient has a number of weight related health issues including fatty liver, depression and possible insulin resistance. Behavioral: The patient's previous eating habits prior to starting our program fair. Before starting the program the biggest reasons for weight struggles include increased appetite, consistency. Exercise before starting the program:going to gym and lifting weights 3 x week.the patient will treat with long-term lifestyle changes of improved nutrition, increased exercise and activity, stress reduction, adequate sleep and behavioral modification versus short-term dieting. 3. Fatty liver-treat with healthy lifestyle changes and hopefully greater than 10% weight loss. He has had a full workup by GI and a FibroScan. 4. Insulin resistance/acanthosis nigracans-treat with healthy lifestyle changes and recommended GLP-1 agonist. Consider metformin. 5. Bipolar disorder-his PHQ-9 was 18 with starting the program. I am sending him to behavioral health for evaluation and treatment. If he truly has bipolar disorder we could not consider an antidepressant unless he was on a mood stabilizing medication. 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 Treat also with good sleep hygiene. Consider trying to get a day job. 7. Fibromyalgia Follow up with me in 4 weeks. New labs needed: Fasting cholesterol profile and insulin level being done now. Salivary cortisol x 2 ordered. The patient was instructed to consider logging all foods and caloric beverages. I highly recommended minimizing or stopping caloric beverages including alcohol. The importance of preplanning, shopping at the edge of the store, decreasing unhealthy food cues and environmental control stressed. I recommend packing snacks and meals when out of the home. Remove trigger/unhealthy foods if possible from the home. No macronutrient is completely restricted. We discussed the addictive nature and unhealthy biological changes that occur with ultra processed food. We discussed the brain and peripheral biological changes with obesity that make it a chronic disease. Importance of cooking most food items from scratch discussed. No skipping any meals. Avoid added sugar, refined starches, and added fats. I highly recommended preference for whole foods/real foods. Foods from the farm, not from the factory. The plate method discussed and handout given. Lean unprocessed protein with each meal and each snack to help control appetite, decrease cravings and lessen muscle loss with weight loss advised. Consider use of a protein shake or protein bar instead of missing a meal. The patient will try to get at least 5 or more servings of low carbohydrate veggies/salads daily. Recommend regular follow-up with our registered dietitian. Benefits of regular exercise including cardio and resistance training discussed and recommended as appropriate for the patient. Slowly increase activity. Our exercise program was recommended with our business editor/obesity exercise group. Handout given. Our free weekly group support/food triggers program was highly recommended to help with long-term behavioral change and support. Handout given. The patient must start healthy behavioral changes. The patient was instructed on good sleep hygiene and on the importance of adequate sleep. Circadian rhythm and the importance of mealtime discussed. I recommended stress reduction. Medication addition and subtraction options discussed. Risks and benefits of prescribed meds discussed. Initial soxv-fi-sfuk interview/evaluation. The patient was counseled in detail on the options for weight loss in an individual setting. 55 minutes was spent caring for the patient, counseling/educating patient on the options for the treatment of obesity and related healthcare issues. The program's treatment goals were reviewed with the patient. Each aspect of the program was discussed with the patient. Author Oriana Cutler [facility] Authored October 22, 2023 9:48 am Highest weight: 407.5 lbs Do wn 5.4 lbs Start weight: 407.5 lbs. he is down 5.4 lbs. today with a weight of 402.1 lbs. Up 1.5 lbs since last visit 09/10/23. Starting Date: 08-13-2023. 1. Abnormal weight gain. He is a big strong individual. He continues strength training. He does not have any family history from his dad and his dad side of the family. He has obesity and his maternal grandfather, maternal grandmother and maternal aunt. He denies a family history of type 2 diabetes. 2. Obesity-improved. This is his first visit back. We are going to try an Ozempic sample and consider compounded semaglutide in the future. He would also like to consider bariatric surgery in the future. He is a big strong individual and we want to make sure we protect his muscle mass. He needs to lose some weight around his belly for his fatty liver, insulin resistance and low HDL. His insurance does not cover weight loss medications. He notes his family does not have financial issues for healthy eating. He lives with his mom, step-dad and step brothers and sisters. His diet has always been poor that when he was growing up they did not have a lot of money and they would eat a lot of cheap processed foods. 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 He notes in high school he put on a lot of weight but was active in 3 sports but had a very poor diet at home and had a job so could go by his own fast foods. He notes nothing healthy . He notes that the beginning of he started a keto diet and during the entire time of quarantine he stayed on that diet eating less than 20 g of carbs a day and lost 80 pounds, he felt he got down to 232 pounds but gained all the weight back when he stopped keto. He notes he did not feel well on keto. He had not diet at all till this New Year's again and since that time has been eating from 7 AM till 10 AM in the morning and also between 5 to 8 PM at night. He notes breakfast is tended to be chicken and rice and dinner a vegetable and a protein. Despite doing this since May he has not lost any weight and may have gained weight. He notes his weight was 402 when he made that New 's resolution. He does have known fatty liver and has seen gastroenterology. He was in the ER for chest pain in May but notes she has had no further chest pain. His A1c was starting the program was borderline high at 5.6. He does have some depression with his PHQ-9 of 18 with starting the program and does carry a diagnosis on the chart of bipolar disorder. He notes he tried medication in the past 7 years ago when he was diagnosed with depression but did not continue on the medication. He is uncertain what that medication was. His PCP is Leatha Diaz. 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 The patient has a number of weight related health issues including fatty liver, depression and possible insulin resistance. Behavioral: The patient's previous eating habits prior to starting our program fair. Before starting the program the biggest reasons for weight struggles include increased appetite, consistency. Exercise before starting the program:going to gym and lifting weights 3 x week.the patient will treat with long-term lifestyle changes of improved nutrition, increased exercise and activity, stress reduction, adequate sleep and behavioral modification versus short-term dieting. 3. Fatty liver-treat with healthy lifestyle changes and hopefully greater than 10% weight loss. He has had a full workup by GI and a FibroScan. 4. Insulin resistance/acanthosis nigracans-treat with healthy lifestyle changes and recommended GLP-1 agonist. Consider metformin. 5. Bipolar disorder-his PHQ-9 was 18 with starting the program. I am sending him to behavioral health for evaluation and treatment. If he truly has bipolar disorder we could not consider an antidepressant unless he was on a mood stabilizing medication. 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 Treat also with good sleep hygiene. Consider trying to get a day job. 7. Fibromyalgia 8. Mixed hyperlipidemia-treat with decreasing the simple sweets, added sugars, refined starches, and bad/added fats, increasing activity and exercise and continued long-term weight loss. Follow up with me in 5 weeks. New labs needed: Up-to-date. Monitor cholesterol profile, ALT with treatment. Salivary cortisol x 2 ordered/pending. Author Kareem Almodovardiff [facility] Authored September 10, 2023 11:24a m Highest weight: 407.5 lbs Do wn 6.9 lbs. Start weight: 407.5 lbs. he is down 6.9 lbs. today with a weight of 400.6 lbs. last visit 2023. Starting Date: 08-13-2023. 1. Abnormal weight gain. He is a big strong individual. He continues strength training. He does not have any family history from his dad and his dad side of the family. He has obesity and his maternal grandfather, maternal grandmother and maternal aunt. He denies a family history of type 2 diabetes. 2. Obesity-improved. This is his first visit back. We are going to try an Ozempic sample and consider compounded semaglutide in the future. He would also like to consider bariatric surgery in the future. He is a big strong individual and we want to make sure we protect his muscle mass. He needs to lose some weight around his belly for his fatty liver, insulin resistance and low HDL. His insurance does not cover weight loss medications. He notes his family does not have financial issues for healthy eating. He lives with his mom, step-dad and step brothers and sisters. His diet has always been poor that when he was growing up they did not have a lot of money and they would eat a lot of cheap processed foods. 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 He notes in high school he put on a lot of weight but was active in 3 sports but had a very poor diet at home and had a job so could go by his own fast foods. He notes nothing healthy . He notes that the beginning of he started a keto diet and during the entire time of quarantine he stayed on that diet eating less than 20 g of carbs a day and lost 80 pounds, he felt he got down to 232 pounds but gained all the weight back when he stopped keto. He notes he did not feel well on keto. He had not diet at all till this New Year's again and since that time has been eating from 7 AM till 10 AM in the morning and also between 5 to 8 PM at night. He notes breakfast is tended to be chicken and rice and dinner a vegetable and a protein. Despite doing this since May he has not lost any weight and may have gained weight. He notes his weight was 402 when he made that New Year's resolution. He does have known fatty liver and has seen gastroenterology. He was in the ER for chest pain in May but notes she has had no further chest pain. His A1c was starting the program was borderline high at 5.6. He does have some depression with his PHQ-9 of 18 with starting the program and does carry a diagnosis on the chart of bipolar disorder. He notes he tried medication in the past 7 years ago when he was diagnosed with depression but did not continue on the medication. He is uncertain what that medication was. His PCP is Leatha Diaz. 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 The patient has a number of weight related health issues including fatty liver, depression and possible insulin resistance. Behavioral: The patient's previous eating habits prior to starting our program fair. Before starting the program the biggest reasons for weight struggles include increased appetite, consistency. Exercise before starting the program:going to gym and lifting weights 3 x week.the patient will treat with long-term lifestyle changes of improved nutrition, increased exercise and activity, stress reduction, adequate sleep and behavioral modification versus short-term dieting. 3. Fatty liver-treat with healthy lifestyle changes and hopefully greater than 10% weight loss. He has had a full workup by GI and a FibroScan. 4. Insulin resistance/acanthosis nigracans-treat with healthy lifestyle changes and recommended GLP-1 agonist. Consider metformin. 5. Bipolar disorder-his PHQ-9 was 18 with starting the program. I am sending him to behavioral health for evaluation and treatment. If he truly has bipolar disorder we could not consider an antidepressant unless he was on a mood stabilizing medication. 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 Treat also with good sleep hygiene. Consider trying to get a day job. 7. Fibromyalgia 8. Mixed hyperlipidemia-treat with decreasing the simple sweets, added sugars, refined starches, and bad/added fats, increasing activity and exercise and continued long-term weight loss. Follow up with me in 5 weeks. New labs needed: Up-to-date. Monitor cholesterol profile, ALT with treatment. Salivary cortisol x 2 ordered/pending. [facility] Work Phone: [phone] Evaluation note* Author Kareem Tijerina [facility] Authored August 13, 2023 11:1 8am Assessment: Highest weight: 407.5 lbs Start weight: 407.5 lbs. Starting Date: 08-13-2023. 1. Abnormal weight gain. He is a big strong individual. He continues strength training. He does not have any family history from his dad and his dad side of the family. He has obesity and his maternal grandfather, maternal grandmother and maternal aunt. He denies a family history of type 2 diabetes. 2. Obesity-he is a big strong individual and we want to make sure we protect his muscle mass. He just needs to lose some weight around his belly. We are going to try Wegovy if covered by his insurance. He has no contraindications. He could consider compounded semaglutide if not covered and if affordable. He notes his family does not have financial issues for healthy eating. He lives with his mom, victorino and step brothers and sisters. His diet has always been poor that when he was growing up they did not have a lot of money and they would eat a lot of cheap processed foods. 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 He notes in high school he put on a lot of weight but was active in 3 sports but had a very poor diet at home and had a job so could go by his own fast foods. He notes nothing healthy . He notes that the beginning of he started a keto diet and during the entire time of quarantine he stayed on that diet eating less than 20 g of carbs a day and lost 80 pounds, he felt he got down to 232 pounds but gained all the weight back when he stopped keto. He notes he did not feel well on keto. He had not diet at all till this New Year's again and since that time has been eating from 7 AM till 10 AM in the morning and also between 5 to 8 PM at night. He notes breakfast is tended to be chicken and rice and dinner a vegetable and a protein. Despite doing this since May he has not lost any weight and may have gained weight. He notes his weight was 402 when he made that New 's resolution. He does have known fatty liver and has seen gastroenterology. He was in the ER for chest pain in May but notes she has had no further chest pain. His A1c was starting the program was borderline high at 5.6. He does have some depression with his PHQ-9 of 18 with starting the program and does carry a diagnosis on the chart of bipolar disorder. He notes he tried medication in the past 7 years ago when he was diagnosed with depression but did not continue on the medication. He is uncertain what that medication was. His PCP is Leatha Diaz. 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 The patient has a number of weight related health issues including fatty liver, depression and possible insulin resistance. Behavioral: The patient's previous eating habits prior to starting our program fair. Before starting the program the biggest reasons for weight struggles include increased appetite, consistency. Exercise before starting the program:going to gym and lifting weights 3 x week.the patient will treat with long-term lifestyle changes of improved nutrition, increased exercise and activity, stress reduction, adequate sleep and behavioral modification versus short-term dieting. 3. Fatty liver-treat with healthy lifestyle changes and hopefully greater than 10% weight loss. He has had a full workup by GI and a FibroScan. 4. Insulin resistance/acanthosis nigracans-treat with healthy lifestyle changes and recommended GLP-1 agonist. Consider metformin. 5. Bipolar disorder-his PHQ-9 was 18 with starting the program. I am sending him to behavioral health for evaluation and treatment. If he truly has bipolar disorder we could not consider an antidepressant unless he was on a mood stabilizing medication. 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 Treat also with good sleep hygiene. Consider trying to get a day job. 7. Fibromyalgia Follow up with me in 4 weeks. New labs needed: Fasting cholesterol profile and insulin level being done now. Salivary cortisol x 2 ordered. The patient was instructed to consider logging all foods and caloric beverages. I highly recommended minimizing or stopping caloric beverages including alcohol. The importance of preplanning, shopping at the edge of the store, decreasing unhealthy food cues and environmental control stressed. I recommend packing snacks and meals when out of the home. Remove trigger/unhealthy foods if possible from the home. No macronutrient is completely restricted. We discussed the addictive nature and unhealthy biological changes that occur with ultra processed food. We discussed the brain and peripheral biological changes with obesity that make it a chronic disease. Importance of cooking most food items from scratch discussed. No skipping any meals. Avoid added sugar, refined starches, and added fats. I highly recommended preference for whole foods/real foods. Foods from the farm, not from the factory. The plate method discussed and handout given. Lean unprocessed protein with each meal and each snack to help control appetite, decrease cravings and lessen muscle loss with weight loss advised. Consider use of a protein shake or protein bar instead of missing a meal. The patient will try to get at least 5 or more servings of low carbohydrate veggies/salads daily. Recommend regular follow-up with our registered dietitian. Benefits of regular exercise including cardio and resistance training discussed and recommended as appropriate for the patient. Slowly increase activity. Our exercise program was recommended with our business editor/obesity exercise group. Handout given. Our free weekly group support/food triggers program was highly recommended to help with long-term behavioral change and support. Handout given. The patient must start healthy behavioral changes. The patient was instructed on good sleep hygiene and on the importance of adequate sleep. Circadian rhythm and the importance of mealtime discussed. I recommended stress reduction. Medication addition and subtraction options discussed. Risks and benefits of prescribed meds discussed. Initial [id number] interview/evaluation. The patient was counseled in detail on the options for weight loss in an individual setting. 55 minutes was spent caring for the patient, counseling/educating patient on the options for the treatment of obesity and related healthcare issues. The program's treatment goals were reviewed with the patient. Each aspect of the program was discussed with the patient. Author Kareem Tijerina [facility] Authored October 22, 2023 10:1 1am Highest weight: 407.5 lbs Do wn 5.4 lbs Start weight: 407.5 lbs. he is down 5.4 lbs. today with a weight of 402.1 lbs. Up 1.5 lbs since last visit 09/10/23. Starting Date: 08-13-2023. 1. Abnormal weight gain. He is a big strong individual. He continues strength training. He does not have any family history from his dad and his dad side of the family. He has obesity and his maternal grandfather, maternal grandmother and maternal aunt. He denies a family history of type 2 diabetes. 2. Obesity-improved. This is his second visit back. We tried an Ozempic sample. He could consider compounded semaglutide in the future, but currently not affordable. He would like to consider bariatric surgery in the future. He is a big strong individual and we want to make sure we protect his muscle mass. He needs to lose some weight around his belly for his fatty liver, insulin resistance and low HDL. His insurance does not cover weight loss medications. He notes his family does not have financial issues for healthy eating. He lives with his mom, step- dad and step brothers and sisters. His diet has always been poor that when he was growing up they did not have a lot of money and they would eat a lot of cheap processed foods. 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 He notes in high school he put on a lot of weight but was active in 3 sports but had a very poor diet at home and had a job so could go by his own fast foods. He notes nothing healthy . He notes that the beginning of he started a keto diet and during the entire time of quarantine he stayed on that diet eating less than 20 g of carbs a day and lost 80 pounds, he felt he got down to 232 pounds but gained all the weight back when he stopped keto. He notes he did not feel well on keto. He had not diet at all till this New Year's again and since that time has been eating from 7 AM till 10 AM in the morning and also between 5 to 8 PM at night. He notes breakfast is tended to be chicken and rice and dinner a vegetable and a protein. Despite doing this since May he has not lost any weight and may have gained weight. He notes his weight was 402 when he made that New 's resolution. He does have known fatty liver and has seen gastroenterology. He was in the ER for chest pain in May but notes she has had no further chest pain. His A1c was starting the program was borderline high at 5.6. He does have some depression with his PHQ-9 of 18 with starting the program and does carry a diagnosis on the chart of bipolar disorder. He notes he tried medication in the past 7 years ago when he was diagnosed with depression but did not continue on the medication. He is uncertain what that medication was. His PCP is Leatha Diaz. 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 The patient has a number of weight related health issues including fatty liver, depression and possible insulin resistance. Behavioral: The patient's previous eating habits prior to starting our program fair. Before starting the program the biggest reasons for weight struggles include increased appetite, consistency. Exercise before starting the program:going to gym and lifting weights 3 x week.the patient will treat with long-term lifestyle changes of improved nutrition, increased exercise and activity, stress reduction, adequate sleep and behavioral modification versus short-term dieting. 3. Fatty liver-treat with healthy lifestyle changes and hopefully greater than 10% weight loss. He has had a full workup by GI and a FibroScan. 4. Insulin resistance/acanthosis nigracans-treat with healthy lifestyle changes and recommended GLP-1 agonist. Consider metformin. 5. Bipolar disorder-his PHQ-9 was 18 with starting the program. I am sending him to behavioral health for evaluation and treatment. If he truly has bipolar disorder we could not consider an antidepressant unless he was on a mood stabilizing medication. 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 Treat also with good sleep hygiene. Consider trying to get a day job. 7. Fibromyalgia 8. Mixed hyperlipidemia-treat with decreasing the simple sweets, added sugars, refined starches, and bad/added fats, increasing activity and exercise and continued long-term weight loss. Follow up with me in 6 weeks. New labs needed: Up-to-date. Monitor cholesterol profile, ALT with treatment. Salivary cortisol x 2 ordered/pending. Author Kareem Tijerina [facility] Authored September 10, 2023 11:24a m Highest weight: 407.5 lbs Do wn 6.9 lbs. Start weight: 407.5 lbs. he is down 6.9 lbs. today with a weight of 400.6 lbs. last visit 2023. Starting Date: 08-13-2023. 1. Abnormal weight gain. He is a big strong individual. He continues strength training. He does not have any family history from his dad and his dad side of the family. He has obesity and his maternal grandfather, maternal grandmother and maternal aunt. He denies a family history of type 2 diabetes. 2. Obesity-improved. This is his first visit back. We are going to try an Ozempic sample and consider compounded semaglutide in the future. He would also like to consider bariatric surgery in the future. He is a big strong individual and we want to make sure we protect his muscle mass. He needs to lose some weight around his belly for his fatty liver, insulin resistance and low HDL. His insurance does not cover weight loss medications. He notes his family does not have financial issues for healthy eating. He lives with his mom, step-dad and step brothers and sisters. His diet has always been poor that when he was growing up they did not have a lot of money and they would eat a lot of cheap processed foods. 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 He notes in high school he put on a lot of weight but was active in 3 sports but had a very poor diet at home and had a job so could go by his own fast foods. He notes nothing healthy . He notes that the beginning of he started a keto diet and during the entire time of quarantine he stayed on that diet eating less than 20 g of carbs a day and lost 80 pounds, he felt he got down to 232 pounds but gained all the weight back when he stopped keto. He notes he did not feel well on keto. He had not diet at all till this New Year's again and since that time has been eating from 7 AM till 10 AM in the morning and also between 5 to 8 PM at night. He notes breakfast is tended to be chicken and rice and dinner a vegetable and a protein. Despite doing this since May he has not lost any weight and may have gained weight. He notes his weight was 402 when he made that New 's resolution. He does have known fatty liver and has seen gastroenterology. He was in the ER for chest pain in May but notes she has had no further chest pain. His A1c was starting the program was borderline high at 5.6. He does have some depression with his PHQ-9 of 18 with starting the program and does carry a diagnosis on the chart of bipolar disorder. He notes he tried medication in the past 7 years ago when he was diagnosed with depression but did not continue on the medication. He is uncertain what that medication was. His PCP is Leatha Diaz. 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 The patient has a number of weight related health issues including fatty liver, depression and possible insulin resistance. Behavioral: The patient's previous eating habits prior to starting our program fair. Before starting the program the biggest reasons for weight struggles include increased appetite, consistency. Exercise before starting the program:going to gym and lifting weights 3 x week.the patient will treat with long-term lifestyle changes of improved nutrition, increased exercise and activity, stress reduction, adequate sleep and behavioral modification versus short-term dieting. 3. Fatty liver-treat with healthy lifestyle changes and hopefully greater than 10% weight loss. He has had a full workup by GI and a FibroScan. 4. Insulin resistance/acanthosis nigracans-treat with healthy lifestyle changes and recommended GLP-1 agonist. Consider metformin. 5. Bipolar disorder-his PHQ-9 was 18 with starting the program. I am sending him to behavioral health for evaluation and treatment. If he truly has bipolar disorder we could not consider an antidepressant unless he was on a mood stabilizing medication. 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 Treat also with good sleep hygiene. Consider trying to get a day job. 7. Fibromyalgia 8. Mixed hyperlipidemia-treat with decreasing the simple sweets, added sugars, refined starches, and bad/added fats, increasing activity and exercise and continued long-term weight loss. Follow up with me in 5 weeks. New labs needed: Up-to-date. Monitor cholesterol profile, ALT with treatment. Salivary cortisol x 2 ordered/pending. [facility] Work Phone: 1(111) 258-695203-12-2024 History of Present illness Narrative* ERLINDA Cooper - 07/21/2023 9:30 AM EDT Images from the original note were not included. [id number] [id number] Date of Service: 07/21/2023 Thank you for the referral to evaluate Jet Duncan for Pain in unspecified joint and fatigue.. This is a new patient and is seen at the request of BALJIT PISANO DO. Chief Complaint: Widespread pain SUBJECTIVE: Jet Duncan is a 18 y.o. male who presents today for evaluation of Pain in unspecified jointand fatigue . PAIN: Location:widespread Timing (When do [...] by mouth every 6 (six) hours as neededfor muscle spasms. 12 tablet 0 meloxicam (MOBIC) 15 mg tablet Take one tablet in the morning with food 30 tablet 2 No current facility-administered medications for this visit. reviewed. Patient Active Problem List Diagnosis Acute appendicitis reviewed. Past Surgical History: Procedure Laterality Date LAPAROSCOPIC APPENDECTOMY N/A 02/20/2022 Performed by Dean Atkins DO at [facility] reviewed. Social History Tobacco Use Smoking status: Never Smokeless tobacco: Never Vaping Use Vaping Use: Never used Substance Use Topics Alcohol use: Not Currently Drug use: Never reviewed. Past Medical History: Diagnosis Date Anxiety Bipolar disorder ([facility]) Depression Fractures Mood disorder ([facility]) reviewed. Social History Social History Narrative Not on file reviewed Family History Problem Relation Age of Onset Heart disease Maternal Grandmother Cancer Maternal great-grandfather Lung cancer Maternal great-grandfather reviewed. Allergies Allergen Reactions Penicillins Hives reviewed. The following portions of the patient's history were reviewed and updated as appropriate: allergies, current medications, past family history, past medical history, past social history, past surgicalhistory and problem list. REVIEW OF SYSTEMS: CONSTITUTIONAL: Admits: [] Weight Loss [] Fever [x] Frequent Night Sweats [x]Fatigue: 3/3 OPHTHALMOLOGIC: Admits: [] Glaucoma [] History or Current Inflammatory Eye Disease [] Cataracts ENT: Admits: [] Oral/Nasal Ulcers [] epistaxis [] Recurrent Sinusitis [] Dry Eyes [] Dry mouth CARDIOVASCULAR: Admits: [x] Chest pain: went to ER [facility], did EKG, concluded as a muscle cramp [...] CK was normal urine exam was normal SECURITIES RESEARCH ANALYST, anti Newberry antibody, scleroderma 70 antibody, complement C3-C4, centromere antibodies, p.m. Scl antibody, andree p.m. Scl antibody, anti dsDNA antibody, U3 SECURITIES RESEARCH ANALYST were all negative/ normal THC you antibody, [...] Sharpe MD on 06/30/2023 5:11 AM ASSESSMENT/PLAN: Jet Duncan is a 18 y.o. male patient presents for evaluation of Pain in unspecified joint and fatigue Patient established care with me on 07/21/2023 Follow up in 3 months [...] work on weight loss, counseled him extensively onweight loss and lifestyle modification Consider gabapentin, Flexeril, [...] or corrected. Thank you for your understanding. [facility] Pattie Cox PA-C [address] [place] [address] Office [phone] ERLINDA Cooper 07/21/23 [id number] ERLINDA Cooper 07/21/23 0598 documented [facility] Evaluation note* Encounter Date Diagnosis Assessment Notes Treatment Notes Treatment Clinical Notes May, Elevated LFTs (ICD-10 - R79.89) The liver studies are all within normal limits. May, Fatty liver (ICD-10 - K76.0) Plan for repeat fibroscan in one year for routine surveillance. [employer] Other 12-12-2023 Evaluation note* Encounter Date Diagnosis Assessment Notes Treatment Notes Treatment Clinical Notes Apr, Fatty liver (ICD-10 - K76.0) Apr, Elevated LFTs (ICD-10 - R79.89) Apr, Hepatitis A test positive (ICD-10 - B15.9) Apr, Fatigue, unspecified type (ICD-10 - R53.83) [employer] Other 11-09-2023 Evaluation note* Encounter Date Diagnosis Assessment Notes Treatment Notes Treatment Clinical Notes Mar, Hepatitis A test positive (ICD-10 - B15.9) f/u after testing Mar, Elevated LFTs (ICD-10 - R79.89) Mar, Fatty liver (ICD-10 - K76.0) [employer] Other 09-27-2022 Evaluation note* Encounter Date Diagnosis [...] treatment plan. Patient left in stable condition [employer] Other Chiyl complaint+Reason for visit Narrative* Chief Complaint 1 Month Follow Up Stomach Issues Amb Documentation [place]-Referral Leatha Diaz k76.0 r73.9 k76.0 Reason for Visit Family history of [place] shimoto thyroiditis Fatigue Fatty liver Multiple joint pain Obesities, morbid Sleep disturbance Vitamin D deficiency Abnormal weight gain Fatty liver Sleep disturbance Bipolar disorder [facility] Work Phone: Chizi complaint+Reason for visit Narrative* Chief Complaint Stomach Issues Amb Documentation [place]-Referral Leatha Emily k76.0 r73.9 k76.0 chest congestion Reason for Visit Family history of [place] shimoto thyroiditis Fatigue Fatty liver Multiple joint pain Obesities, morbid Sleep disturbance Vitamin D deficiency Abnormal weight gain Fatty liver Sleep disturbance Bipolar disorder Bronchitis Maxillary sinusitis [facility] Work Phone: Chief complaint+Reason for visit Narrative* Chief Complaint Amb Documentation [place]-Referral Leatha Emily k76.0 r73.9 k76.0 chest congestion knee issues Mental concerns Reason for Visit Abnormal weight gain Fatty liver Sleep disturbance Bipolar disorder Bronchitis Maxillary sinusitis Adult BMI 50.0-59.9 kg/sq m Fatty liver Mixed hyperlipidemia Vitamin D deficiency Bipolar disorder Left knee pain Right knee pain Depression [facility] Work Phone: Chiao complaint+Reason for visit Narrative* Chief Complaint [place]-Referral Abelino schuster Emily k76.0 r73.9 k76.0 chest congestion knee issues Mental concerns 4 week follow up Reason for Visit Abnormal weight gain Fatty liver Sleep disturbance Bipolar disorder Bronchitis Maxillary sinusitis Adult BMI 50.0-59.9 kg/sq m Fatty liver Mixed hyperlipidemia Vitamin D deficiency Bipolar disorder Left knee pain Right knee pain Depression Adult BMI 50.0-59.9 kg/sq m Fatty liver Mixed hyperlipidemia Tachycardia Depression [facility] Work Phone: Evaluation noteNo assessment information [facility] Work Phone: Evaluation noteNo InformationNoray [facility] hospital [employer] Other Evaluation note* Diagnosis Positive TENA (antinuclear antibody)- Primary Other and unspecified nonspecific immunological findings Chronic fatigue Other malaise and fatigue Pain in both hands Bilateral carpal tunnel syndrome Carpal tunnel syndrome documented [facility] Author Zaida Frias [facility] Authored August 13, 2023 10:3 8am Assessment: Highest weight: 407.5 lbs Start weight: 407.5 lbs. Starting Date: 08-13-2023. 1. Abnormal weight gain 2. Obesity-the patient will treat with long-term lifestyle changes of improved nutrition, increased exercise and activity, stress reduction, adequate sleep and behavioral modification versus short-term dieting. [ ] 3. [ ] 4. [ ] 5. [ ] 6. [ ] 7. [ ] 8. [ ] 9. [ ] 10. [ ] 11. [ ] Follow up with me in 6 weeks. New labs needed: [TSH, cholesterol profile, and CMP] The patient was instructed to consider logging all foods and caloric beverages. I highly recommended minimizing or stopping caloric beverages including alcohol. The importance of preplanning, shopping at the edge of the store, decreasing unhealthy food cues and environmental control stressed. I recommend packing snacks and meals when out of the home. Remove trigger/unhealthy foods if possible from the home. No macronutrient is completely restricted. We discussed the addictive nature and unhealthy biological changes that occur with ultra processed food. We discussed the brain and peripheral biological changes with obesity that make it a chronic disease. Importance of cooking most food items from scratch discussed. No skipping any meals. Avoid added sugar, refined starches, and added fats. I highly recommended preference for whole foods/real foods. Foods from the farm, not from the factory. The plate method discussed and handout given. Lean unprocessed protein with each meal and each snack to help control appetite, decrease cravings and lessen muscle loss with weight loss advised. Consider use of a protein shake or protein bar instead of missing a meal. The patient will try to get at least 5 or more servings of low carbohydrate veggies/salads daily. Recommend regular follow-up with our registered dietitian. Benefits of regular exercise including cardio and resistance training discussed and recommended as appropriate for the patient. Slowly increase activity. Our exercise program was recommended with our business editor/obesity exercise group. Handout given. Our free weekly group support/food triggers program was highly recommended to help with long-term behavioral change and support. Handout given. The patient must start healthy behavioral changes. The patient was instructed on good sleep hygiene and on the importance of adequate sleep. Circadian rhythm and the importance of mealtime discussed. I recommended stress reduction. Medication addition and subtraction options discussed. Risks and benefits of prescribed meds discussed. Initial [id number] interview/evaluation. The patient was counseled in detail on the options for weight loss in an individual setting. [ ] minutes was spent caring for the patient, counseling/educating patient on the options for the treatment of obesity and related healthcare issues. The program's treatment goals were reviewed with the patient. Each aspect of the program was discussed with the patient. [facility] Work Phone: Hiskeqp general Narrative - Reported* Type Description Date Medical History bi polar [employer] Other History general Narrative - Reported* Type Description Date Medical History bi polar Surgical History appendectomy [place] [facility] [employer] Other History general Narrative - Reported* Type Description Date Medical History bi polar Surgical History appendectomy Hospitalization History see above [employer] Other Instructions* Attachments The following attachments cannot be sent through Care Everywhere. * Carpal tunnel syndrome (Thai) * Fibromyalgia (Thai) * Gabapentin, ADULT (Thai) * Duloxetine, ADULT (Thai) * Meloxicam, ADULT (Thai) documented in [facility] encounterMain [facility] SystemReason for visit Narrative PATIENT IS HERE AT THE REQUEST OF DR. PISANO FOR HEP INFECTION AND ELEVATED LIVER ENZYMES. US GALL BLADDER IN PT DOCS-LABS IN REFERRAL NOTESNort [employer] Other Summary Purpose Family History No Family History Records Found Relationship Condition Age at Onset Recorded Date/T priya father Unknown family medical history Unknown Not Specified Fibromyalgia Unknown Disorder of thyroid Unknown Relationship Condition Age at Onset Recorded Date/T priya father Unknown family medical history Unknown Not Specified Fibromyalgia Unknown Disorder of thyroid Unknown Not Specified Disorder of thyroid Unknown Relationship Condition Age at Onset Recorded Date/T priya father Unknown family medical history Unknown mother Fibromyalgia Unknown Disorder of thyroid Unknown mother Disorder of thyroid Unknown Advance Directives No Advanced Directives Records Found Advance Directive Response Recorded Date/ Time Advance Directives No December 18, 2018 8:54am Latest Code Status on File Code Status Date Activated Date Inactivated Comments Full Code 02/20/2022 8:51 AM 02/20/2022 1:58 PM Advance Directive Response Recorded Date/ Time Advance Directives No December 18, 2018 9:54am Chief Complaint and Reason for Visit Chief Complaint B15.9 R79.89 Chief Complaint B15.9 R79.89 Fatty Liver Chief Complaint B15.9 R79.89 Fatty Liver r79.89 r53.83 Chief Complaint M79.1 M25.50,R 76.0 UPPER BACK PAIN, KNEE PAIN FAT 1 Month Follow Up Stomach Issues Amb Documentation [place]-Referral Leatha Diaz Reason for Visit Family history of [place] shimoto thyroiditis Fatigue Fatty liver Multiple joint pain Obesities, morbid Sleep disturbance Vitamin D deficiency Chief Complaint M79.1 M25.50,R 76.0 UPPER BACK PAIN, KNEE PAIN FAT 1 Month Follow Up Stomach Issues Amb Documentation [place]-Referral Leatha Diaz k76.0 r73.9 k76.0 Reason for Visit Family history of [place] shimoto thyroiditis Fatigue Fatty liver Multiple joint pain Obesities, morbid Sleep disturbance Vitamin D deficiency Abnormal weight gain Fatty liver Sleep disturbance Bipolar disorder Chief Complaint knee issues Mental concerns 4 week follow up Reason for Visit Adult BMI 50.0-59.9 kg/sq m Fatty liver Mixed hyperlipidemia Vitamin D deficiency Bipolar disorder Left knee pain Right knee pain Depression Adult BMI 50.0-59.9 kg/sq m Fatty liver Mixed hyperlipidemia Tachycardia Bronchitis Depression Chief Complaint knee issues Mental concerns 4 week follow up Metabolic testing Reason for Visit Left knee pain Right knee pain Depression Adult BMI 50.0-59.9 kg/sq m Fatty liver Mixed hyperlipidemia Tachycardia Bronchitis Depression Adult BMI 50.0-59.9 kg/sq m Fatty liver Mixed hyperlipidemia Tachycardia Chief Complaint Mental concerns 4 week follow up Metabolic testing cramping/blood in stool Reason for Visit Depression Adult BMI 50.0-59.9 kg/sq m Fatty liver Mixed hyperlipidemia Tachycardia Bronchitis Depression Adult BMI 50.0-59.9 kg/sq m Fatty liver Mixed hyperlipidemia Tachycardia Abdominal cramping Bloating Blood in stool Change in bowel habit Decreased appetite Left lower quadrant abdominal tenderness Reason for Referral Specialty Diagnoses / Procedures Referred By Dhaval aparicio Referred To Contact Diagnoses Pain in both hands Bilateral carpal tunnel syndrome Procedures [facility] Pattie Cox V, ERLINDA [address] [place] [address] [id number] [place] [address] Referral ID Status Reason Start Date Expiration Date V isits Requested Visits Authorized [id number] Pending Review 07/21/2023 07/20/2024 1 1 Reason [...] section and content) DATE CREATED AUTHOR 01/06/2018 [facility] DATE CREATED AUTHOR AUTHOR'S ORGANIZ ATION 04/19/2021 [facility] DATE CREATED AUTHOR AUTHOR'S ORGANIZ ATION 05/02/2021 [facility] dical Specialist DATE CREATED AUTHOR AUTHOR'S ORGANIZ ATION 09/22/2022 [facility] DATE CREATED AUTHOR AUTHOR'S ORGANIZ ATION 06/19/2023 [facility] DATE CREATED AUTHOR AUTHOR'S ORGANIZ ATION 06/22/2023 [facility] DATE CREATED AUTHOR AUTHOR'S ORGANIZ ATION 10/09/2023 [facility] DATE CREATED AUTHOR AUTHOR'S ORGANIZ ATION 01/23/2024 [facility] REASON FOR VISIT (unrecogniz ed section and [...] Active Lewis Mirza MD Attending Provider Active Drop Wire Builder Relationship Specialty Start Date End Date Baljit Pisano DO [address] [place] [address] PCP - General 01/07/17 Team Status: Active Member Role Status Dates Leatha Diaz APRN PULPING MACHINE OPERATOR-C Primary Care Provider Active Team Status: Inactive Member Role Status Dates Baljit Pisano DO Primary Care Provider Active Start: May 19, 2023 End: May 19, 2023 Lewis Mirza MD Attending Provider Active St art: May 19, 2023 End: May 19, 2023 Team Status: Inactive Member Role Status Dates Wilver Felton MD Attending Provider Active Start: May 26, 2023 End: May 26, 2023 Team Status: Inactive Member Role Status Dates Leatha Diaz APRN PULPING MACHINE OPERATOR-C Primary Care Provider, Attending Provider Active Start: July 07, 2023 End: July 07, 2023 Team Status: Active Member Role Status Dates Leatha Diaz APRN PULPING MACHINE OPERATOR-C Primary Care Provider, Attending Provider Active Start: July 08, 2023 Team Status: Active Member Role Status Dates Leatha Diaz APRN PULPING MACHINE OPERATOR-C Primary Care Provider Active Start: August 07, 2023 Montserrat Sterling Attending Provider Active Start: August 07, 2023 Team Status: Inactive Member Role Status Dates Leatha Diaz APRN PULPING MACHINE OPERATOR-C Primary Care Provider Active Start: August 13, 2023 End: August 13, 2023 Kareem Tijerina MD Attending Provider Active Start: August 13, 2023 End: August 13, 2023 Team Status: Active Member Role Status Dates Leatha Diaz APRN PULPING MACHINE OPERATOR-C Primary Care Provider Active Start: August 07, 2023 Montserrat Sterling LPN Attending Provider Active S tart: August 07, 2023 Team Status: Inactive Member Role Status Dates Leatha Diaz APRN PULPING MACHINE OPERATOR-C Primary Care Provider Active Start: August 19, 2023 End: August 19, 2023 ROS Mireles Attending Provider Active Start: August 19, 2023 End: August 19, 2023 Team Status: Inactive Member Role Status Dates Leatha Diaz APRN PULPING MACHINE OPERATOR-C Primary Care Provider, Attending Provider Active Start: August 27, 2023 End: August 27, 2023 Team Status: Inactive Member Role Status Dates Leatha Diaz APRN PULPING MACHINE OPERATOR-C Primary Care Provider Active Start: September 10, 2023 End: September 10, 2023 Kareem Tijerina MD Attending Provider Active Start: September 10, 2023 End: September 10, 2023 Team Status: Inactive Member Role Status Dates Leatha Diaz APRN PULPING MACHINE OPERATOR-C Primary Care Provider, Attending Provider Active Start: September 24, 2023 End: September 24, 2023 Team Status: Inactive Member Role Status Dates Leatha Diaz APRN PULPING MACHINE OPERATOR-C Primary Care Provider, Attending Provider Active Start: October 12, 2023 End: October 12, 2023 Team Status: Active Member Role Status Dates Leatha Diaz APRN PULPING MACHINE OPERATOR-C Primary Care Provider Active Start: August 07, 2023 Montserrat Nelson LPN Attending Provider Active St art: August 07, 2023 Team Status: Inactive Member Role Status Dates Leatha Diaz APRN PULPING MACHINE OPERATOR-C Primary Care Provider Active Start: October 22, 2023 End: October 22, 2023 Kareem Tijerina MD Attending Provider Active Start: October 22, 2023 End: October 22, 2023 Team Status: Inactive Member Role Status Magali Leatha iDaz APRN PULPING MACHINE OPERATOR-C Primary Care Provider, Attending Provider Active Start: November 09, 2023 End: November 09, 2023 Team Status: Inactive Member Role Status Dates Leatha Diaz APRN PULPING MACHINE OPERATOR-C Primary Care Provider Active Start: December 09, 2023 End: December 09, 2023 Kareem Tijerina MD Attending Provider Active Start: December 09, 2023 End: December 09, 2023 Team Status: Inactive Member Role Status Magali Leatha Diaz APRN PULPING MACHINE OPERATOR-C Primary Care Provider Active Start: December 15, 2023 End: December 15, 2023 Kareem Tijerina MD Attending Provider Active Start: December 15, 2023 End: December 15, 2023 Team Status: Inactive Member Role Status Dates Leatha Diaz APRN PULPING MACHINE OPERATOR-C Primary Care Provider, Attending Provider Active Start: December 31, 2023 End: December 31, 2023 Goals (unrecognized section and content) Goals may [...] BE BASED ON THE PRIMARY CLINICAL RECORDS. [facility] [employer] [facility]. provides no warranty or guarantee of the accuracy or completeness of information in this document.
[2024-01-24 20:33] VITALS: BP 148/88; PULSE 109; TEMP 37.1; O2SAT 97; BMI 52.9
--- NOTE | 2024-01-24 20:50 | ED.GENADUL1 ---
HPI HPI - General Adult General Stated complaint: lump Time Seen by Provider: 01/24/24 20:42 Source: patient Mode of arrival: walk-in History of Present Illness HPI narrative: Patient is a 18-year-old male who presents to the emergency department for drainage and bleeding from a pilonidal cyst/abscess. He states he was diagnosed with the abscess 3 days ago at the [place] emergency department. He was started on Percocet and clindamycin. He states he has been taking the medications. He denies any objective fevers or vomiting. He states tonight about 2 hours ago he was lying in bed when he felt drainage from the area and noticed pus and blood coming from the pilonidal cyst. He was concerned and presents to the ER for evaluation. Related Data Home Medications ?Medication ?Instructions ?Recorded ?Confirmed cholecalciferol (vitamin D3) 1,250 50,000 unit PO .weekly 08/06/23 01/24/24 mcg (50,000 unit) capsule clindamycin HCl 300 mg capsule 300 mg PO TID 01/24/24 01/24/24 oxycodone-acetaminophen 5 mg-325 1 tab PO Q4H PRN pain 01/24/24 01/24/24 mg tablet sertraline 50 mg tablet 50 mg PO DAILY 01/24/24 01/24/24 Previous Rx's ?Medication ?Instructions ?Recorded ketorolac 10 mg tablet 10 mg PO TID PRN pain #10 tabs 01/24/24 Allergies Allergy/AdvReac Type Severity Reaction Status Date / Time Penicillins Allergy Hives Verified 08/06/23 21:06 Opioid HPI Opioid Management Most Recent Opioid Data: No Data to Display Review of Systems ROS Constitutional Denies: fever or chills Ears, nose, mouth, and throat Denies: throat pain or nasal congestion Respiratory Denies: shortness of breath Gastrointestinal Denies: nausea or vomiting Integumentary/Breast Reports: skin pain and skin tenderness; Denies: rash Hematologic/Lymphatic Denies: easy bruising or easy bleeding Exam Narrative Exam Narrative: Gen.: Awake, alert, in no distress Head: Normocephalic, atraumatic ENT: Moist mucous membranes Respiratory: No respiratory distress Extremities: Moves extremities equally Back: Small pilonidal cyst noted above the rectum at the superior aspect of the buttocks. Small open area in the inferior aspect of the abscess with purulent/bloody drainage. Exam performed with Faustina Oden RN at bedside throughout the duration of the exam Psych: Normal mood and affect Neuro: No focal neuro deficit Skin: Warm, dry, intact Constitutional Vital Signs, click to edit/add: Last Vital Signs Temp 98.8 F 01/24/24 20:33 Pulse 109 H 01/24/24 20:33 Resp 20 01/24/24 20:33 BP 148/88 H 01/24/24 20:33 Pulse Ox 97 01/24/24 20:33 O2 Del Method Room Air 01/24/24 20:33 Course Vital Signs Vital signs: Vital Signs Temperature 98.8 F 01/24/24 20:33 Pulse Rate 109 H 01/24/24 20:33 Respiratory Rate 01/24/24 20:33 Blood Pressure 148/88 H 01/24/24 20:33 Pulse Oximetry 97 01/24/24 20:33 Oxygen Delivery Method Room Air 01/24/24 20:33 Temperature 98.8 F 01/24/24 20:33 Pulse Rate 109 H 01/24/24 20:33 Respiratory Rate 01/24/24 20:33 Blood Pressure 148/88 H 01/24/24 20:33 Pulse Oximetry 97 01/24/24 20:33 Oxygen Delivery Method Room Air 01/24/24 20:33 Medical Decision Making MDM Narrative Medical decision making narrative: Exam is consistent with open and draining pilonidal cyst abscess. Patient was given education and reassurance to continue clindamycin, additional Toradol given for comfort for home. The area was cleaned, dressed and he is hemodynamically stable for discharge. Continue warm compresses and follow-up with general surgery on Thursday as scheduled. Return to the ER if symptoms change or worsen SUPERVISED APC VISIT, PHYSICIAN ATTESTATION: Based on the medical record the care appears appropriate. ? Medical Records Medical records reviewed: Yes I reviewed the patient's medical records Discharge Plan Discharge Clinical Impression: Pilonidal abscess Patient Disposition: Home, Self-Care Time of Disposition Decision: 20:49 Condition: Good Prescriptions / Home Meds: New ketorolac 10 mg tablet 10 mg PO TID PRN (Reason: pain) Qty: 10 0RF No Action cholecalciferol (vitamin D3) 1,250 mcg (50,000 unit) capsule 50,000 unit PO .weekly clindamycin HCl 300 mg capsule 300 mg PO TID oxycodone-acetaminophen 5-325 mg tablet 1 tab PO Q4H PRN (Reason: pain) sertraline 50 mg tablet 50 mg PO DAILY Print Language: Monegasque Instructions: Pilonidal Cyst (ED) Referrals: SHERRI ORDOÑEZ [Primary Care Provider] - 1 week
--- NOTE | 2024-01-24 20:54 | PC.NURSE ---
Pt to room. Pt states that he was seen at [facility], diagnosed with a pylenodial cyst and put on ATB. Pt has a F/u appt with a surgeon. pt states that tonight he started to have drainage from that area. Nakia COFFEY come in room and assess area. Pt has dark red/purulent drainage noted in top of gluetal cleft and down into the cleft. Area cleansed with water. Nakia given pt reassurance.
== END 2024-01-24 20:58 | disposition home or self-care (01) ==
PROVIDERS: Emergency Provider Emergency Medicine; PCP Nurse Practitioner Family
DX: L05.01 Pilonidal cyst with abscess (principal)
CPT/HCPCS: 99282

== ENCOUNTER 2024-01-29 08:29 | Outpatient (RCR) | payer OTHER, SELFPAY ==
--- NOTE | 2024-01-29 08:31 | PC.NURSE ---
0800 arrival in department, accompanied by father who is going to learn to pack wound. patient had already removed packing prior to arrival. wound to upper crease of buttocks irrigated with 20 ml of ns using filter straw and ns syringe, 1st returned bloody purulent drainage, second only blood tinged drainage. surrounding skin cleansed with soap and water, dried. Wound approx 2 cm deep when probed with cotton tipped applicator. repacked with 1/4 iodaform dresing approx 12 inchs. patient expressed mild discomfort, 4x4 dressing folded and placed increase of buttocks to collect drainage, father asked questions and verbalized understanding regarding dressing change. Released ambulatory. all supplies sent home with patient.
== END 2024-02-08 23:59 | disposition home or self-care (01) ==
LOC: INF 08:29
PROVIDERS: PCP Nurse Practitioner Family; Visit Provider Nurse Practitioner Family
DX: L05.01 Pilonidal cyst with abscess (principal)

== ENCOUNTER 2024-03-28 10:45 | Outpatient (OUT) | payer OTHER, SELFPAY ==
--- OUTSIDE RECORDS SUMMARY | 2024-03-28 11:07 | XMS_ITS | CCD ---
Author Organization [facility] CliniSyma Care Team Providers Care Tourist Home Keeper Name Role Phone NAOMI ROD Unavailable Unavailable SELF, REFERRED Unavailable Unavailable HOUSE, BALJIT P Unavailable Unavailable HOUSE, BALJIT P Unavailable Unavailable NAOMI ROD Unavailable Unavailable SELF, REFERRED Unavailable Unavailable Devika King Unavailable HOUSE, DR SMILEY Admitting Unavailable HOUSE, DR SMILEY Primary Care Unavailable HOUSE, DR SMILEY Consulting Unavailable HOUSE, DR SMILEY Attending Unavailable HOUSE, DR SMILEY Admitting Unavailable HOUSE, DR SMILEY Primary Care Unavailable HOUSE, DR SMILEY Consulting Unavailable HOUSE, DR SMILEY Attending Unavailable HOUSE, DR SMILEY Admitting Unavailable HOUSE, DR SMILEY Consulting Unavailable HOUSE, DR SMILEY Attending Unavailable [facility], DR SANJAY Gavin Consulting Unavailable Wilver Felton Unavailable Norris, DO Smiley Primary Care Provider MD Wilver Felton Attending Provider [phone] MD Lewis Mirza Attending Provider [phone] NORRIS, BALJIT Parker Primary Care Unavailable Rafita Stover MD Attending [...] Rafita Stover MD Attending Unavailable HOUSE, BALJIT Keith Primary Care Unavailable Rafita Stover MD Attending Unavailable House DOBaljit Primary Care Provider DO Baljit Pisano Primary Care Provider MD Lewis Mirza Attending Provider REUBEN Diaz Primary Care Provider MD Kareem Tijerina Attending Provider PATTIE BERGER Attending Unavailable HOUSE, BALJIT P Referring Unavailable HOUSE, BALJIT P Primary Care Unavailable SHENDGE V, PATTIE Referring Unavailable HOUSE, BALJIT P Primary Care Unavailable HOUSE, BALJIT P Referring Unavailable HOUSE, BALJIT P Primary Care Unavailable HOUSE, BALJIT P Primary Care Unavailable ASHLEY WASHINGTON Attending Unavailable ROHRBACHER, LEATHA Primary Care Unavailable PIPPA VALLE Attending Unavailable KERAFITA SHIRLEY Attending Unavailable ROHRBACHER, LEATHA Primary Care Unavailable KERAFITA SHIRLEY Attending Unavailable RAFITA GODWIN Referring Unavailable ROHRBACHER, LEATHA Primary Care Unavailable ROHRBACHER, LEATHA Primary Care Unavailable YARELY PACHECO Attending Unavailable ROHRBACHER, LEATHA Primary Care Unavailable NORRIS, BALJIT Primary Care Unavailable SANJAY WEBSTER Attending Unavailable SANJAY WEBSTER Attending Unavailable SANJAY WEBSTER Referring Unavailable DELRAY, BALJIT Primary Care Unavailable LINDY LANGSTON Attending Unavailable ROHRBACHER, LEATHA Referring Unavailable ROHRBACHER, LEATHA Primary Care Unavailable Rohrbacher, [facility] Primary Care Unavailable Kareem Tijerina Admitting Unavailable Kareem Tijerina Attending Unavailable Asaad, Imad Attending Unavailable [place], Baljit Primary Care Unavailable Asaad, Imad Admitting Unavailable [place], Baljit Primary Care Unavailable Asaad, Imad Admitting Unavailable Asaad, Imad Attending Unavailable Patr, [facility] Primary Care Unavailable Asaad, Imad Admitting Unavailable Asaad, Imad Attending Unavailable Baljit Pisano Primary Care Unavailable Lewis Mirza Admitting Unavailable Lewis Mirza Attending Unavailable Leatha Diaz APRN Primary Care Provider Wilver Felton MD Attending Provider [phone] Allergies Allergy Classification Reported Allergen(s) Allergy Type Date of Onset Reaction(s) Facility (1 source) penicillAMINE Drug Allergy i-drive Other (6 sources) Penicillin; Translations: [penicillin] Drug Allergy Unknown [facility] Repository (18 sources) Penicillins; Translations: [PENICILLINS] Propensity to adverse reactions to drug 7 [facility] (2 sources) Penicillins Drug allergy (disorder) 4 [facility] Repository Medications Current Medications Medication Drug Class(es) Dates [...] 10 doses. 10 tablet 0 12/26/2022 Active pantoprazole 40 mg delayed release oral tablet (1 source) Proton Pump Inhibitor Start: 03-22-2024 take 1 tablet by mouth once daily Pantoprazole 40 mg tablet,delayed release (DR/EC) Active 40 MG PO Daily 56 56 March 22, 2024 12:00am tiZANidine 2 mg oral tablet (1 source) [...] Sig (Original) azithromycin 250 mg oral tablet (8 sources) Macrolide Antimicrobial Start: 11-09-2023 End: 12-09-2023 Azithromycin 250 mg tablet Discontinued 250 MG PO daily 6 November 08, 2023 11:00pm December 09, 2023 10:26am Take 2 tablets today and then 1 for the next 4 days benzonatate 200 mg oral capsule (11 sources) Non-narcotic Antitussive Start: 08-27-2023 End: 09-10-2023 take 1 capsule by mouth three times daily as needed for cough Benzonatate 200 mg capsule Discontinued 200 MG PO Three times daily as needed for cough 09 03August 26, 2023 11:00pm September 10, 2023 9:35am Cholecalciferol (20 sources) Vitamin D Start: 10-22-2023 End: 03-22-2024 take 1 capsule by mouth once daily cholecalciferol (vitamin D3) Discontinued 1 CAP PO Daily October 21, 2023 11:00pm March 22, 2024 9:58am Start: 10-22-2023 take 1 capsule by [facility] once daily cholecalciferol (vitamin D3) Active 1 CAP PO Daily October 22, 2023 12:00am Start: 07-09-2023 End: 10-22-2023 take 1 capsule by mouth every week Cholecalciferol (Vitamin D3) 1,250 mcg (50,000 unit) capsule Discontinued 1250 MCG PO every week 10 07July 09, 2023 12:00am October 22, 2023 8:43am take above dose for 8 weeks and then start 2,000 units daily of OTC vitamin d3 dicyclomine hydrochloride 10 mg oral capsule (1 source) Anticholinergic Start: 02-25-2024 End: 03-22-2024 take 1 capsule by mouth three times daily as needed for pain Dicyclomine 10 mg capsule Discontinued 10 MG PO Three times daily as needed for abdominal pain 09 03February 24, 2024 11:00pm March 22, 2024 9:58am doxycycline monohydrate 100 mg oral tablet (11 sources) Tetracycline-class Drug Start: 08-27-2023 End: 09-10-2023 take 1 tablet by mouth twice daily Doxycycline Monohydrate 100 mg tablet Discontinued 100 MG PO Twice daily 27 02August 26, 2023 11:00pm September 10, 2023 9:35am ibuprofen 200 mg oral tablet (16 sources) Nonsteroidal Anti-inflammatory Drug Start: 07-06-2023 End: 10-22-2023 take 1 tablet by mouth every six hours as needed Ibuprofen 200 mg tablet Discontinued 200 MG PO Every 6 hours as needed July 06, 2023 12:00am October 22, 2023 8:43am Start: 06-30-2023 take 1 tablet by gilberto every eight hours as needed for pain ibuprofen (MOTRIN) 600 mg tablet Take 1 tablet (600 mg total) by mouth every 8 (eight) hours as needed for pain. 12 tablet 0 06/30/2023 Active take 2 tablets by mo [facility] twice daily at mealtime as needed Ibuprofen 200 MG 2 tablet with food or milk as needed Orally twice a day Active Semaglutide (3 sources) Start: 02-09-2024 End: 02-25-2024 Semaglutide (Ozempic) 0.25 m g or 0.5 mg (2 mg/3 mL) pen injector Discontinued 0.25 MG SUBCUT every week February 08, 2024 11:00pm February 25, 2024 2:36pm sample Start: 02-09-2024 End: 02-25-2024 Semaglutide (Ozempic) 0.25 m g or 0.5 mg (2 mg/3 mL) pen injector Discontinued 0.25 MG SUBCUT every week February 09, 2024 12:00am February 25, 2024 3:36pm sample Start: 02-09-2024 Semaglutide (O zempic) 0.25 mg or 0.5 mg (2 mg/3 mL) pen injector Active 0.25 MG SUBCUT every week February 09, 2024 12:00am sample Semaglutide (Weight Loss) (20 sources) Start: 09-10-2023 End: 09-10-2023 Semaglutide (Weight Loss) (W egovy) 0.25 mg/0.5 mL pen injector Discontinued 0.25 MG SUBCUT every week September 10, 2023 9:37am September 10, 2023 9:55am administer weeks 1 through 4 of therapy Start: 09-10-2023 End: 09-10-2023 Semaglutide (Weight Loss) (W egovy) 0.25 mg/0.5 mL pen injector Discontinued 0.25 MG SUBCUT every week September 10, 2023 10:37am September 10, 2023 10:55am administer weeks 1 through 4 of therapy Start: 08-13-2023 End: 09-10-2023 Semaglutide (Weight Loss) (W egovy) 0.25 mg/0.5 mL pen injector Discontinued 0.25 MG SUBCUT every week 2 August 12, 2023 11:00pm September 10, 2023 9:37am administer weeks 1 through 4 of therapy [...] administer weeks 1 through 4 of therapy sertraline 50 mg oral tablet (18 sources) Serotonin Reuptake Inhibitor Start: 11-09-2023 End: 02-25-2024 take 1 tablet by mouth once daily Sertraline 50 mg tablet Discontinued 50 MG PO Daily 90 90 November 09, 2023 7:42am February 25, 2024 2:36pm Start: 10-12-2023 End: 11-09-2023 take 1 tablet by mouth once daily Sertraline 25 mg tablet Discontinued 25 MG PO Daily 30 October 11, 2023 11:00pm November 09, 2023 7:43am Sod Picosulf-Mag Ox-Citric A c (1 source) Start: 02-29-2024 End: 03-22-2024 Sod Picosulf-Mag Ox-Citric A c (Clenpiq) 10 mg-3.5 gram- 12 gram/175 mL solution Discontinued 175 ML PO .COMPLEX 350 1 February 28, 2024 11:00pm March 22, 2024 9:58am Follow instructions given by office Problems Active Problems Problem Classification Problem Date Documented Da te Episodic/Chronic Abdominal pain (20 sources) Abdominal tenderness of left lower quadrant; Translations: [Left lower quadrant abdominal tenderness] 12-31-2023 Episodic Cardiac dysrhythmias (18 sources) Tachycardia; Translations: [Tachycardia, unspecified] Onset: 01-21-2024 10-22-2023 Episodic Chronic obstructive pulmonary disease and bronchiectasis (19 sources) Bronchitis; Translations: [Bronchitis, not specified as acute or chronic] 08-27-2023 Episodic Disorders of lipid metabolism (20 sources) Mixed hyperlipidemia; Translations: [Mixed hyperlipidemia] 09-10-2023 Chronic Gastrointestinal hemorrhage (17 sources) Hematochezia; Translations: [Melena] Onset: 01-21-2024 12-31-2023 Episodic Headache; including migraine (2 sources) Morning headache; Translations: [Morning headache] 02-28-2024 Episodic Hepatitis (7 sources) Hepatitis A test positive; Translations: [Hepatitis A without hepatic coma] Episodic Immunizations and screening for infectious disease (20 sources) Contact with and (suspected) exposure to other viral communicable diseases; Translations: [Anti-nuclear factor positive] Onset: 07-21-2023 Episodic Influenza (1 source) Influenza Onset: 10-30-2023 Malaise and fatigue (2 sources) Fatigue; Translations: [Chronic fatigue, unspecified] Onset: 07-21-2023 07-21-2023 Chronic Mood disorders (20 sources) Bipolar disorder; Translations: [Bipolar disorder, unspecified] Onset: 10-07-2023 07-07-2023 Chronic Mood disorders (1 source) Mood disorders; Translations: [Depression, unspecified] Onset: 10-07-2023 Nonspecific chest pain (2 sources) Chest pain, unspecified; Translations: [Other chest pain] Onset: 06-30-2023 Episodic Nutritional deficiencies (20 sources) Vitamin D deficiency; Translations: [Vitamin D deficiency, unspecified] 07-07-2023 Chronic Other connective tissue disease (4 sources) Pain in right lower leg; Translations: [PAIN IN RIGHT LOWER LEG] Onset: 07-03-2022 Episodic Other connective tissue disease (1 source) Pain of bilateral hands; Translations: [Pain in right hand] 07-21-2023 Episodic Other gastrointestinal disorders (5 sources) Altered bowel function; Translations: [Change in bowel habit] 12-31-2023 Episodic Other gastrointestinal disorders (5 sources) Abdominal bloating; Translations: [Abdominal distension (gaseous)] 12-31-2023 Episodic Other gastrointestinal disorders (9 sources) Abdominal distension (gaseous); Translations: [Flatulence, eructation, and gas pain] 12-31-2023 Episodic Other gastrointestinal disorders (9 sources) Change in bowel habit; Translations: [Other symptoms involving digestive system] 12-31-2023 Episodic Other liver diseases (19 sources) Steatosis of liver; Translations: [Fatty (change [...] Onset: 09-15-2022 Chronic Other non-traumatic joint disorders (14 sources) Multiple joint pain; Translations: [Pain in unspecified joint] 07-08-2023 Episodic Other non-traumatic joint disorders (4 sources) Pain in unspecified joint; Translations: [Pain in joint, multiple sites] 07-07-2023 Episodic Other non-traumatic joint disorders (20 sources) Pain in left knee; Translations: [Left knee pain] 09-24-2023 Episodic Other non-traumatic joint disorders (5 sources) Pain in right knee; Translations: [Pain in joint, lower leg] 09-24-2023 Episodic Other nutritional; endocrine; and metabolic disorders (14 sources) Morbid obesity; Translations: [Morbid (severe) obesity due to excess calories] 07-08-2023 Chronic Other nutritional; endocrine; and metabolic disorders (5 sources) Morbid (severe) obesity due to excess calories; Translations: [Morbid obesity] 07-07-2023 Chronic Other nutritional; endocrine; and metabolic disorders (10 sources) Body mass index 40+ - severely obese; Translations: [Body mass index (BMI) 50.0-59.9, adult] 09-10-2023 Chronic Other nutritional; endocrine; and metabolic disorders (15 sources) Body mass index (BMI) 50.0-59.9, adult; Translations: [Body Mass Index 50.0-59.9, adult] 09-10-2023 Chronic Other nutritional; endocrine; and metabolic disorders (13 sources) Abnormal weight gain; Translations: [Abnormal weight gain] 08-13-2023 Episodic Other nutritional; endocrine; and metabolic disorders (6 sources) Abnormal weight gain; Translations: [Abnormal weight gain] 08-13-2023 Episodic Other nutritional; endocrine; and metabolic disorders (5 sources) Decrease in appetite; Translations: [Anorexia] 12-31-2023 Episodic Other nutritional; endocrine; and metabolic disorders (5 sources) Anorexia; Translations: [Anorexia] 12-31-2023 Episodic Other upper respiratory infections (15 sources) Maxillary sinusitis; Translations: [Chronic maxillary sinusitis] 08-27-2023 Chronic Other upper respiratory infections (2 sources) Acute upper respiratory infection, unspecified; Translations: [Acute upper respiratory infection, unspecified] Onset: 10-30-2023 Episodic Residual codes; unclassified (14 sources) Family history of Luis thyroiditis; Translations: [Family history of other endocrine, nutritional and metabolic diseases] 07-07-2023 Episodic Residual codes; unclassified (14 sources) Disturbance in sleep behavior; Translations: [Sleep disorder, unspecified] 07-08-2023 Episodic Residual codes; unclassified (4 sources) Family history of other endocrine, nutritional and metabolic diseases; Translations: [Family history of other endocrine and metabolic diseases] 07-07-2023 Episodic Residual codes; unclassified (10 sources) Sleep disorder, unspecified; Translations: [Sleep disturbance, unspecified] 07-07-2023 Episodic Residual codes; unclassified (1 source) Frequent night waking; Translations: [Insomnia, unspecified] 02-28-2024 Episodic Residual codes; unclassified (1 source) Insomnia, unspecified; Translations: [Other sleep disturbances] 02-25-2024 Episodic Skin and subcutaneous tissue infections (12 sources) Pilonidal cyst without abscess; Translations: [Pilonidal cyst with abscess] Onset: 01-21-2024 02-09-2024 Episodic Spondylosis; intervertebral disc disorders; other back problems (1 source) Backache Onset: 01-21-2024 Episodic Unclassified (2 sources) Cyst Onset: 01-22-2024 Unclassified (1 source) SI Onset: 10-07-2023 Unclassified (1 source) New Patient Onset: 07-21-2023 Unclassified (1 source) Nasal Congestion, Chest Congestion Onset: 10-30-2023 Unclassified (1 source) Pain in right knee; Translations: [Pain in right knee] Onset: 05-19-2023 Past or Other Problems Problem Classification Problem Date Documented Da te Episodic/Chronic Appendicitis and other appendiceal conditions (1 source) Acute appendicitis; Translations: [Unspecified acute appendicitis] Onset: 02-20-2022 02-20-2022 Episodic Diabetes mellitus without complication (15 sources) Hyperglycemia; Translations: [Hyperglycemia, unspecified] Onset: 08-13-2023 08-13-2023 Episodic Malaise and fatigue (20 sources) Other fatigue; Translations: [Fatigue] Onset: 04-21-2023 Episodic Other connective tissue disease (1 source) Pain in right hand; Translations: [Pain in right hand] Onset: 07-21-2023 Episodic Other connective tissue disease (1 source) Pain in left hand; Translations: [Pain in left hand] Onset: 07-21-2023 Episodic Other lower respiratory disease (1 source) Rib pain Onset: 06-30-2023 Episodic Other screening for suspected conditions (not mental disorders or infectious disease) (9 sources) Elevated liver enzymes level; Translations: [Other specified abnormal findings of blood chemistry] Onset: 04-21-2023 Episodic Results Test Name Value Interpretation Reference Range Facility Pathology study report docum entOrdered By: Chavez Valentine on 03-23-2024 Pathology study [facility] Other Darnell 03-22-2024 L ---- Specimen: [id number] Received: 03/22/24 Status: MELECIO Little Num: [id number] Spec Type: Surgical Subm Dr: Wilver Felton MD Tissues: A Small Intestine - Biopsy/Polyp (SMALL BOWEL BX'S R/O CELIAC) B GASTRIC FOR HP (GASTRIC BX'S R/O H PYLORI) C Colon Biopsy (RANDOM COLON BX'S R/O MICRO ) Procedures: HE/6, Gross/Micro L4/3, H PYLORI Age/ Patient Sex Location Account Attending Physician Ta Duncan 18/M [id number] Wilver Felton MD SPEC NUM: [id number] RECD: 03/22/24 STATUS: MELECIO LITTLE NUM: [id number] OLEGARIO: 03/22/24 [facility] DR: Wilver Felton MD ENTERED: 03/22/24 [facility] DR: SPEC TYPE: Surgical DEPT: S ENTERED BY: [id number] RECV BY: [id number] ORDERED: HE/6, Gross/Micro L4/3, H PYLORI ORDERED: HE/6, Gross/Micro L4/3, H PYLORI Pathological Diagnosis A. Small bowel, biopsy: - Small bowel mucosa with no significant histopathology. - No evidence of celiac disease identified. B. Stomach, biopsy: - Antral and oxyntic-type gastric mucosa with minimal chronic inactive gastritis. - No Helicobacter pylori microorganisms identified with immunohistochemical stain. C. Colon, random, biopsy: - Benign colonic mucosa with a single lymphoid aggregates. - No evidence of chronic, active or microscopic colitis identified. Clinical Information Change in bowel habits, abdominal distention and pain, melena. Rule out, celiac disease, H.pylori, and microscopic colitis. Gross Description Part A is received in formalin labeled with the patients name and small bowel BX is a richards- waldrop, focally erythematous, friable, 0.4 cm in greatest dimension tissue but. The specimen is entirely submitted in a single cassette. (1, ns, M20-2030 A) NAOMI Specimen: [id number] Received: 03/22/24 [facility] Num: [id number] Spec Type: Surgical Subm Dr: Wivler Felton MD Tissues: A Small Intestine - Biopsy/Polyp (SMALL BOWEL BX'S R/O CELIAC) B GASTRIC FOR HP (GASTRIC BX'S R/O H PYLORI) C Colon Biopsy (RANDOM COLON BX'S R/O MICRO ) Procedures: HE/6, Gross/Micro L4/3, H PYLORI Patient: Ta Dunacn [id number] (Continued) Specimen: [id number] Received: 03/22/24 (Continued) Gross Description (Continued) Signed (signature on file) Chavze Valentine MD 03/23/24 1501 Specimen: [id number] Received: 03/22/24 Status: MELECIO Little Num: [id number] Spec Type: Surgical Subm Dr: Wilver Felton MD Tissues: A Small Intestine - Biopsy/Polyp (SMALL BOWEL BX'S R/O CELIAC) B GASTRIC FOR HP (GASTRIC BX'S R/O H PYLORI) C Colon Biopsy (RANDOM COLON BX'S R/O MICRO ) Procedures: HE/6, Gross/Micro L4/3, H PYLORI Patient: Ta Duncan [id number] (Continued) Specimen: [id number] Received: 03/22/24 (Continued) Gross Description (Continued) Part B is received in formalin labeled with the patients name and gastric BX are two richards- waldrop, focally erythematous, friable, 0.3 cm each in greatest dimension tissue bits. The specimen is entirely submitted in a single cassette. (1, ns, [id number]) Part C is received in formalin labeled with the patients name and random colon BX'S are two richards-waldrop, focally erythematous, friable, 0.2 and 0.4 cm tissue bits. The specimen is entirely submitted in a single cassette. (1, ns, [id number] 5566 C) Microscopic Description A-C: Microscopic examination is performed. CPT Codes 91181 x3, 98906 Specimen: [id number] Received: 03/22/24 Status: MELECIO Little Num: [id number] Spec Type: Surgical Subm Dr: Wilver Felton MD Tissues: A Small Intestine - Biopsy/Polyp (SMALL BOWEL BX'S R/O CELIAC) B GASTRIC FOR HP (GASTRIC BX'S R/O H PYLORI) C Colon Biopsy (RANDOM COLON BX'S R/O MICRO ) Procedures: HE/6, Gross/Micro L4/3, H PYLORI (more content not included)... Normal [facility] XR CHEST 2 VWSon 10-30-2023 XR CHEST 2 VWS XR CHEST 2 VWS HISTORY: Cough, shortness of breath COMPARISON: Chest x-ray 06/30/2023 FINDINGS: PA and lateral views of the chest were obtained. Cardiac silhouette is within normal limits. No airspace consolidation or vascular congestion. No pleural effusion or pneumothorax. IMPRESSION: * No acute abnormality. Finalized by Tommy Owens MD on 10/30/2023 1:12 AM Normal [facility] Cholesterol [Mass/volume] in Serum or PlasmaOrdered By: Kareem Tijerina on 08-13-2023 Cholesterol [Mass/Vol] 162 mg/dL Normal 140-200 [facility] Comment on above: Chol less than 200 m g/dl low riskChol 201-239 mg/dl borderline riskChol 240 mg/dl and greater high risk Result Comment: Chol less than 200 mg/dl low risk Chol 201-239 mg/dl borderline risk Chol 240 mg/dl and greater high risk Performed By: #### M ITOM2, L-K MICRO, ALPHA PHEN, HEMOCHROM, CERULOP, TENA, IGG, SMAB #### [facility] , #### PARVEEN, TSH3 #### [address] Cholesterol in LDL Calc [Mas s/Vol]Ordered By: Kareem Tijerina on 08-13-2023 Cholesterol in LDL [Mass/Vol] 101 mg/dL High 0-100 [facility] Comment on above: LDL ATP III CLASSIFI CATIONLDL less than 100 mg/dL OptimalLDL 100-129 mg/dL Near or above optimalLDL 130-159 mg/dL Borderline highLDL 160-189 mg/dL HighLDL greater than 189 mg/dL Very high Cholesterol in VLDL Calc [Ma ss/Vol]Ordered By: Kareem Tijerina on 08-13-2023 Cholesterol in VLDL [Mass/Vol] 28 mg/dL [facility] HbA1c HPLC (Bld) [Mass fract ion]on 08-13-2023 HbA1c (Bld) [Mass fraction] 5.6 % [facility] Insulinon 08-13-2023 Insulin 23.8 u[iU]/mL Normal 2.6-24.9 [facility] Comment on above: Result Comment: Perf ormed at: CB - [facility] [address] [id number] Financial Management: Zechariah Paula PhD, Phone: [phone] PERFORMED BY: [place] [address] PATHOLOGIST OUTPATIENT INTERVIEWING CLERK LISA COOLEY M.D. Performed By: #### M ITOM2, L-K MICRO, ALPHA PHEN, HEMOCHROM, CERULOP, TENA, IGG, SMAB #### [facility] , #### PARVEEN, TSH3 #### [address] Lipid Panelon 08-13-2023 LDL Cholesterol,Calculated 101 mg/dL High 0-100 [facility] Comment on above: Result Comment: LDL ATP III CLASSIFICATION LDL less than 100 mg/dL Optimal LDL 100-129 mg/dL Near or above optimal LDL 130-159 mg/dL Borderline high LDL 160-189 mg/dL High LDL greater than 189 mg/dL Very high Performed By: #### M ITOM2, L-K MICRO, ALPHA PHEN, HEMOCHROM, CERULOP, TENA, IGG, SMAB #### [facility] , #### PARVEEN, TSH3 #### [address] Triglyceride w/Reflex 144 mg/dL Normal 0-149 [facility] Comment on above: Result Comment: TRIG ATP III CLASSIFICATION TRIG less than 150 mg/dL Normal TRIG 150-199 mg/dL Borderline high TRIG 200-500 mg/dL High TRIG greater than 500 mg/dL Very high Standard traceable to the Center for Disease Conrtrol and Prevention (CDC) test method. Performed By: #### M ITOM2, L-K MICRO, ALPHA PHEN, HEMOCHROM, CERULOP, TENA, IGG, SMAB #### [facility] , #### PARVEEN, TSH3 #### [address] VLDL CHOLESTEROL 28 mg/dL Normal [facility] Comment on above: Performed By: #### M ITOM2, L-K MICRO, ALPHA PHEN, HEMOCHROM, CERULOP, TENA, IGG, SMAB #### [facility] , #### PARVEEN, TSH3 #### [address] Serum or plasma high density lipoprotein (HDL) cholesterol measurementOrdered By: Kareem Tijerina on 08-13-2023 Cholesterol in HDL [Mass/Vol] 32 mg/dL Normal 23-92 [facility] Comment on above: HDL CHOL ATP-III CLA SSIFICATION Cardiovascular RiskHDL > or equal to 60 mg/dL LOWHDL < 40 mg/dL HIGH Result Comment: HDL CHOL ATP-III CLASSIFICATION Cardiovascular Risk HDL > or equal to 60 mg/dL LOW HDL < 40 mg/dL HIGH Performed By: #### M ITOM2, L-K MICRO, ALPHA PHEN, HEMOCHROM, CERULOP, TENA, IGG, SMAB #### [facility] , #### PARVEEN, TSH3 #### [address] Serum or plasma insulin reynold urement (units/volume)Ordered By: Kareem Tijerina on 04-04-2024 Insulin Qn 23.8 u[iU]/mL 2.6-24.9 [facility] Comment on above: Performed at: - [facility] [address] [id number] Director: Zechariah Paula PhD, Phone: [phone] Serum or plasma total choles terol/high density lipoprotein (HDL) cholesterol mass ratOrdered By: Kareem Tijerina on 08-13-2023 Cholesterol.total/[place] sterol in HDL [Mass ratio] 5.1 {ratio} Normal <5.0 [facility] Comment on above: Result Comment: PERF ORMED BY: [place] [address] PATHOLOGIST OUTPATIENT INTERVIEWING CLERK LISA COOLEY M.D. Performed By: #### M ITOM2, L-K MICRO, ALPHA PHEN, HEMOCHROM, CERULOP, TENA, IGG, SMAB #### [facility] , #### PARVEEN, TSH3 #### [facility] [address] [place] [place] [address] Triglyceride [Mass/volume] i n Serum or PlasmaOrdered By: Kareem Tijerina on 08-13-2023 Triglyceride [Mass/Vol] 144 mg/dL 0-149 [facility] Comment on above: TRIG ATP III [...] Palm MD on 07/22/2023 8:15 PM Normal [facility] - Chemistry and C hemistry - challengeon 07-08-2023 TSH Qn 1.138 m[IU]/L 0.516-4.13 0 [facility] No Panel Informationon 07-08 25-Hydroxy Vitamin D Total 11.0 ng/mL [facility] Comment on above: <20 ng/mL Vit D defi cient20-<30 ng/mL Vit D gsuutkzmzpvx96-256 ng/mL Vit D sufficient>100 ng/mL Potential Toxicity Serum or plasma thyroperoxid ase antibody assay (units/volume)on 07-08-2023 TPO Ab Qn 9 [IU]/mL 0-26 [facility] Thyroglobulin [Mass/volume] in Serum or Plasmaon 07-08-2023 Thyroglobulin [Mass/Vol] <1.0 [IU]/mL 0.0-0.9 [facility] Comment on above: Thyroglobulin Antibo dy measured by ManymoonMethodologyIt should be noted that the presence of thyroglobulinantibodies may not be pathogenic nor diagnostic, especiallyat very low levels. The assay landing gear mechanic has found thatfour percent of individuals without evidence of thyroiddisease or autoimmunity will have positive TgAb levels upto 4 IU/mL.Performed at: [facility] [id number] Director: Zechariah Paula PhD, Phone: [phone] BASIC METABOLIC PANLon 06-30 Anion gap [Moles/Vol] 6 mmol/L Normal 5-15 [facility] Comment on above: Performed By: #### B ASAF CBCA, 05585-3, 84287-9 #### [facility] ([id number]) [address] [place] [address]72 Calcium [Mass/Vol] 8.9 mg/dL Normal 8.5-10.5 [facility] Comment on above: Performed By: #### B ASAF, CBCA, 22376-6, 22943-9 #### [facility] ([id number]) [address] [place] [address]159 Chloride [Moles/Vol] 104 mmol/L Normal 98-109 [facility] Comment on above: Performed By: #### B ASAF, SHERLYN, 73259-8, 13867-8 #### [facility] ([id number]) [address] [place] [address] 29304 CO2 [Moles/Vol] 24 mmol/L Normal 22-32 [facility] Comment on above: Performed By: #### B ASAF, SHERLYN, 99909-3, 90985-4 #### [facility] ([id number]) [address] [place] [address] 93336 Creatinine [Mass/Vol] 0.83 mg/dL Normal 0.70-1.20 [facility] Comment on above: Result Comment: METH OD TRACEABLE TO IDMS STANDARD Performed By: #### B SHERLYN RON, 78212-8, 50628-4 #### [facility] ([id number]) [address] [place] [address]4623 eGFR (CKD-EPI) NON-RACE DEPENDENT >90 Normal >59 [facility] Comment on above: Result Comment: Reported eGFR is based on the CKD-EPI 2020 equation that does not use a race coefficient. Performed By: #### B SHERLYN RON, 67710-0, 30213-0 #### [facility] ([id number]) [address] [place] [address]407 Glucose [Mass/Vol] 103 mg/dL High 65-99 [facility] Comment on above: Performed By: #### B ASAF, MARYA, 26665-3, 65391-9 #### [facility] ([id number]) [address] [place] [address] 44983 Potassium [Moles/Vol] 3.7 mmol/L Normal 3.5-5.0 [facility] Comment on above: Performed By: #### B ASAF, MARYA, 09223-3, 71985-1 #### [facility] ([id number]) [address] [place] [address] 66267 Sodium [Moles/Vol] 134 mmol/L Normal 134-146 [facility] Comment on above: Performed By: #### B MP, CBCA, 33581-2, 11516-9 #### [facility] ([id number]) [address] [place] [address] 68466 Urea nitrogen [Mass/Vol] 10 mg/dL Normal 5-23 [facility] Comment on above: Performed By: #### B MP, CBCA, 18425-8, 56102-4 #### [facility] ([id number]) [address] [place] [address] 93236 CBC AND AUTO DIFFon 06-30-19 24 ABSOLUTE BASOPHIL 0.0 X10E9/L Normal 0.0-0.2 [facility] Comment on above: Performed By: #### B MP, CBCA, 35583-1, 34554-3 #### [facility] ([id number]) [address] [place] [address] 94186 ABSOLUTE NEUTROPHIL 2.6 X10E9/L Normal 1.5-6.6 [facility] Comment on above: Performed By: #### B MP, CBCA, 98954-1, 69794-3 #### [facility] ([id number]) [address] [place] [address] 30038 Basophils/100 WBC (Bld) 0.6 % Normal [facility] Comment on above: Performed By: #### B MP, CBCA, 10563-0, 33439-1 #### [facility] ([id number]) [address] [place] [address] 82723 Eosinophils (Bld) [#/Vol] 0.1 10*3/uL Normal 0.0-0.4 [facility] Comment on above: Performed By: #### B MP, CBCA, 45411-2, 03733-7 #### [facility] ([id number]) [address] [place] [address] 93738 Eosinophils/100 WBC (Bld) 2.7 % Normal [facility] Comment on above: Performed By: #### B MP, CBCA, 13901-4, 51639-8 #### [facility] ([id number]) [address] [place] [address] 31569 Erythrocyte distribution width (RBC) [Ratio] 13.3 % Normal 11.5-15.0 [facility] Comment on above: Performed By: #### B MP, CBCA, 79670-5, 17260-0 #### [facility] ([id number]) [address] [place] [address] 72099 Hematocrit (Bld) [Volume fraction] 41.2 % Normal 39-49 [facility] Comment on above: Performed By: #### B MP, CBCA, 15363-4, 80580-1 #### [facility] ([id number]) [address] [place] [address] 96260 Hemoglobin (Bld) [Mass/Vol] 14.3 g/dL Normal 13.0-17.0 [facility] Comment on above: Performed By: #### B MP, CBCA, 10216-6, 79064-1 #### [facility] ([id number]) [address] [place] [address] 18169 Lymphocytes (Bld) [#/Vol] 1.4 10*3/uL Normal 1.0-3.5 [facility] Comment on above: Performed By: #### B MP, CBCA, 21570-2, 40254-3 #### [facility] ([id number]) [address] [place] [address] 52588 Lymphocytes/100 WBC (Bld) 30.6 % Normal [facility] Comment on above: Performed By: #### B MP, CBCA, 85250-7, 19895-7 #### [facility] ([id number]) [address] [place] [address] 64647 MCH (RBC) [Entitic mass] 29.7 pg Normal 27-34 [facility] Comment on above: Performed By: #### B MP, CBCA, 80837-3, 67875-9 #### [facility] ([id number]) [address] [place] [address] 15104 MCHC (RBC) [Mass/Vol] 34.7 g/dL Normal 32-36 [facility] Comment on above: Performed By: #### B MP, CBCA, 97567-5, 02817-7 #### [facility] ([id number]) [address] [place] [address] 26191 MCV (RBC) [Entitic vol] 86 fL Normal 80-100 P [facility] Comment on above: Performed By: #### B MP, CBCA, 41761-2, 61973-3 #### [facility] ([id number]) [address] [place] [address] 43991 Monocytes (Bld) [#/Vol] 0.6 10*3/uL Normal 0-0.9 [facility] Comment on above: Performed By: #### B MP, CBCA, 84912-1, 66244-8 #### [facility] ([id number]) [address] [place] [address] 21500 Monocytes/100 WBC (Bld) 11.8 % Normal [facility] Comment on above: Performed By: #### B MP, CBCA, 21318-1, 86701-6 #### [facility] ([id number]) [address] [place] [address] 15006 Neutrophils/100 WBC (Bld) 54.3 % Normal [facility] Comment on above: Performed By: #### B MP, CBCA, 50806-7, 14566-5 #### [facility] ([id number]) [address] [place] [address] 71253 Platelet mean volume (Bld) [Entitic vol] 9.1 fL Normal 7-12 [facility] Comment on above: Performed By: #### B MP, CBCA, 64360-6, 85168-0 #### [facility] ([id number]) [address] [place] [address] 61474 Platelets (Bld) [#/Vol] 236 10*3/uL Normal 150-450 [facility] Comment on above: Performed By: #### B MP, CBCA, 78897-5, 75782-7 #### [facility] ([id number]) [address] [place] [address] 61923 RBC COUNT 4.82 X10E12/L Normal 4.10-5.70 [facility] Comment on above: Performed By: #### B MP, CBCA, 99151-3, 26204-3 #### [facility] ([id number]) [address] [place] [address] 18948 WBC (Bld) [#/Vol] 4.7 10*3/uL Normal 4.0-11.0 [facility] Comment on above: Performed By: #### B MP, CBCA, 81156-8, 30427-3 #### [facility] ([id number]) [address] [place] [address] 99088 Fibrin D-dimer DDU (PPP) [Ma ss/Vol]on 06-30-2023 D DIMER <150 Normal <255 [facility] Comment on above: Result Comment: Results <255 ng/mL DDU: The presence of a VTE can safely be excluded with a negative D-Dimer result and Wells score. A negative result doesn't exclude the possibility of DIC. The test be repeated along with other diagnostic tests if the patient's symptoms persist or worsen. [email or web address] Performed By: #### B MARY RONA, 91466-2, 16079-8 #### [facility] ([id number]) [address] [place] [address] 38152 TROPONIN Ion 06-30-2023 Troponin I.cardiac [Mass/Vol] ng/mL Normal 0.00-0.04 [facility] Comment on above: Performed By: #### B ASAF CBCA, 32941-1, 66376-0 #### [facility] ([id number]) [address] [place] [address] 84828 XR CHEST 2 VWSon 06-30-2023 XR CHEST 2 VWS XR CHEST 2 VWS XR CHEST 2 VWS INDICATION: right sided chest pain. Chest pain FINDINGS: Cardiac silhouette is normal in size. Trachea midline. No focal pulmonary consolidation. No pleural effusion. No pneumothorax. IMPRESSION: 1. No acute findings. Finalized by Dwaine Sharpe MD on 06/30/2023 5:11 AM Normal [facility] Miscellaneouson 06-22-2023 Miscellaneous [id number] [id number]#1.00OTG TIFF Normal [facility] Office/Clinic Noteon 024 Miscellaneous [id number] 1563 [id number]#1.00OT GTIFF Normal [facility] Office/Clinic Note [id number]#1.00OT GTIFF [facility] Alanine aminotransferase [En zymatic activity/volume] in Serum or PlasmaOrdered By: Lewis Mirza on 05-19-2023 ALT [Catalytic activity/Vol] 56 U/L [facility] 7-52 [facility] Comment on above: Performed By: #### M ITOM2, L-K MICRO, ALPHA PHEN, HEMOCHROM, CERULOP, TENA, IGG, SMAB #### [facility] , #### PARVEEN, TSH3 #### [address] Albumin [Mass/volume] in Ser um or Plasma by Bromocresol green (BCG) dye binding methoOrdered By: Lewis Mirza on 05-19-2023 Albumin BCG dye [Mass/Vol] 4.4 g/dL 3.5-5.7 [facility] Alkaline phosphatase [Enzyma tic activity/volume] in Serum or PlasmaOrdered By: Lewis Mirza on 05-19-2023 ALP [Catalytic activity/Vol] 58 U/L Normal 34-104 [facility] Comment on above: Performed By: #### M ITOM2, L-K MICRO, ALPHA PHEN, HEMOCHROM, CERULOP, TENA, IGG, SMAB #### [facility] , #### PARVEEN, TSH3 #### [address] Anti-Centromere B Antibodies on 05-19-2023 Anti-Centromere B Antibodies <0.2 Normal 0.0-0.9 [facility] Comment on above: Result Comment: Perf ormed at: - [facility] [address] [id number] Financial Management: Zechariah Paula PhD, Phone: [phone] Performed By: #### M ITOM2, L-K MICRO, ALPHA PHEN, HEMOCHROM, CERULOP, TENA, IGG, SMAB #### [facility] , #### PARVEEN, TSH3 #### [address] Anti-RNPon 05-19-2023 Anti-VICE PRESIDENT RESEARCH 0.6 Normal 0.0-0.9 [facility] Comment on above: Performed By: #### M ITOM2, L-K MICRO, ALPHA PHEN, HEMOCHROM, CERULOP, TENA, IGG, SMAB #### [facility] , #### PARVEEN, TSH3 #### [address] [place] [address] [place] Anti-Newberry Antibodieson Anti-Newberry Antibodies <0.2 Normal 0.0-0.9 [facility] Comment on above: Performed By: #### M ITOM2, L-K MICRO, ALPHA PHEN, HEMOCHROM, CERULOP, TENA, IGG, SMAB #### [facility] , #### PARVEEN, TSH3 #### [address] Anti-dsDNA(DBL)Abon 05-19-19 24 Anti-dsDNA(DBL)Ab 3 Normal 0-9 [facility] Comment on above: Result Comment: Nega tive <5 Equivocal 5 - 9 Positive >9 Performed By: #### M ITOM2, L-K MICRO, ALPHA PHEN, HEMOCHROM, CERULOP, TENA, IGG, SMAB #### [facility] , #### PARVEEN, TSH3 #### [address] Aspartate aminotransferase [ Enzymatic activity/volume] in Serum or PlasmaOrdered By: Lewis Mirza on 05-19-2023 AST [Catalytic activity/Vol] 30 U/L Normal 13-39 [facility] Comment on above: Performed By: #### M ITOM2, L-K MICRO, ALPHA PHEN, HEMOCHROM, CERULOP, TENA, IGG, SMAB #### [facility] , #### PARVEEN, TSH3 #### [address] Automated basophil %Ordered By: Lewis Mirza on 05-19-2023 Basophils/100 WBC (Bld) 0.7 % Normal . [facility] Comment on above: Performed By: #### M ITOM2, L-K MICRO, ALPHA PHEN, HEMOCHROM, CERULOP, TENA, IGG, SMAB #### [facility] , #### PARVEEN, TSH3 #### [address] Automated basophil countOrde red By: Lewis Mirza on 05-19-2023 Basophils (Bld) [#/Vol] 0.0 10*3/uL Normal 0.0-0.2 [facility] Comment on above: Performed By: #### M ITOM2, L-K MICRO, ALPHA PHEN, HEMOCHROM, CERULOP, TENA, IGG, SMAB #### [facility] , #### PARVEEN, TSH3 #### [address] Automated blood monocyte cou ntOrdered By: Lewis Mirza on 05-19-2023 Monocytes (Bld) [#/Vol] 0.7 10*3/uL Normal 0.0-0.8 [facility] Comment on above: Performed By: #### M ITOM2, L-K MICRO, ALPHA PHEN, HEMOCHROM, CERULOP, TENA, IGG, SMAB #### [facility] , #### PARVEEN, TSH3 #### [address] Automated eosinophil %Ordere d By: Lewis Mirza on 05-19-2023 Eosinophils/100 WBC (Bld) 2.7 % Normal . [facility] Comment on above: Performed By: #### M ITOM2, L-K MICRO, ALPHA PHEN, HEMOCHROM, CERULOP, TENA, IGG, SMAB #### [facility] , #### PARVEEN, TSH3 #### [address] Automated eosinophil countOr dered By: Lewis Mirza on 05-19-2023 Eosinophils (Bld) [#/Vol] 0.2 10*3/uL Normal 0.0-0.45 [facility] Comment on above: Performed By: #### M ITOM2, L-K MICRO, ALPHA PHEN, HEMOCHROM, CERULOP, TENA, IGG, SMAB #### [facility] , #### PARVEEN, TSH3 #### [facility] [address] [place] [address] [place] Automated erythrocytes count in urine sediment (number/area)Ordered By: Lewis Mirza on 05-19-2023 RBC Auto (Urine sed) [#/Area] 1-2 [HPF] 0-4 [facility] Automated leukocytes count i n urine sediment (number/area)Ordered By: Lewis Mirza on 05-19-2023 WBC Auto (Urine sed) [#/Area] None seen [HPF] 0-4 [facility] Automated monocyte %Ordered By: Lewis Mirza on 05-19-2023 Monocytes/100 WBC (Bld) 10.7 % Normal . [facility] Comment on above: Performed By: #### M ITOM2, L-K MICRO, ALPHA PHEN, HEMOCHROM, CERULOP, TENA, IGG, SMAB #### [facility] , #### PARVEEN, TSH3 #### [facility] [address] [place] [address] Automated neutrophil %Ordere d By: Lewis Mirza on 05-19-2023 Neutrophils/100 WBC (Bld) 53.4 % Normal . [facility] Comment on above: Performed By: #### M ITOM2, L-K MICRO, ALPHA PHEN, HEMOCHROM, CERULOP, TENA, IGG, SMAB #### [facility] , #### PARVEEN, TSH3 #### [facility] [address] [place] [place] [address] Automated urine color determ inationOrdered By: Lewis Mirza on 05-19-2023 Color (U) Yellow Normal Yellow [facility] Comment on above: Order Comment: Reaso n for Exam Elevated LFTs Reason for Exam Fatigue Performed By: #### M ITOM2, L-K MICRO, ALPHA PHEN, HEMOCHROM, CERULOP, TENA, IGG, SMAB #### [facility] , #### PARVEEN, TSH3 #### [facility] [address] [place] [place] [address] Bilirubin Test strip Ql (U)O rdered By: Lewis Mirza on 05-19-2023 Bilirubin Ql (U) Negative Negative [facility] Bilirubin.total [Mass/volume ] in Serum or PlasmaOrdered By: Lewis Mirza on 05-19-2023 Bilirubin [Mass/Vol] 0.8 mg/dL Normal 0.3-1.0 [facility] Comment on above: Performed By: #### M ITOM2, L-K MICRO, ALPHA PHEN, HEMOCHROM, CERULOP, TENA, IGG, SMAB #### [facility] , #### PARVEEN, TSH3 #### [facility] [address] [place] [address] [place] C reactive protein [Mass/vol ume] in Serum or PlasmaOrdered By: Lewis Mirza on 05-19-2023 CRP [Mass/Vol] < 0.5 mg/dL 0.0-0.5 [facility] C-Reactive Proteinon 024 CRP [Mass/Vol] mg/L Normal 0.0-0.5 [facility] Comment on above: Performed By: #### M ITOM2, L-K MICRO, ALPHA PHEN, HEMOCHROM, CERULOP, TENA, IGG, SMAB #### [facility] , #### PARVEEN, TSH3 #### [facility] [address] [place] [address] [place] Calcium [Mass/volume] in Ser um or PlasmaOrdered By: Lewis Mirza on 05-19-2023 Calcium [Mass/Vol] 9.4 mg/dL Normal 8.6-10.3 [facility] Comment on above: Performed By: #### M ITOM2, L-K MICRO, ALPHA PHEN, HEMOCHROM, CERULOP, TENA, IGG, SMAB #### [facility] , #### PARVEEN, TSH3 #### [facility] [address] [place] [address] [place] Carbon dioxide, total [Moles /volume] in Serum or PlasmaOrdered By: Lewis Mirza on 05-19-2023 CO2 [Moles/Vol] 23.5 mmol/L Normal 21.0-31.0 [facility] Comment on above: Performed By: #### M ITOM2, L-K MICRO, ALPHA PHEN, HEMOCHROM, CERULOP, TENA, IGG, SMAB #### [facility] , #### PARVEEN, TSH3 #### [facility] [address] [place] [place] [address] Chloride [Moles/volume] in S saima or PlasmaOrdered By: Lewis Mirza on 05-19-2023 Chloride [Moles/Vol] 107 mmol/L Normal 98-107 [facility] Comment on above: Performed By: #### M ITOM2, L-K MICRO, ALPHA PHEN, HEMOCHROM, CERULOP, TENA, IGG, SMAB #### [facility] , #### PARVEEN, TSH3 #### [address] Complement C3on 05-19-2023 Complement C3 161 mg/dL Normal 82-167 [facility] Comment on above: Result Comment: Perf ormed at: - [facility] [place] [id number] Financial Management: Zechariah Paula PhD, Phone: [phone] Performed By: #### M ITOM2, L-K MICRO, ALPHA PHEN, HEMOCHROM, CERULOP, TENA, IGG, SMAB #### [facility] , #### PARVEEN, TSH3 #### [address] Complement C4on 05-19-2023 Complement C4 24 mg/dL Normal 12-38 [facility] Comment on above: Performed By: #### M ITOM2, L-K MICRO, ALPHA PHEN, HEMOCHROM, CERULOP, TENA, IGG, SMAB #### [facility] , #### PARVEEN, TSH3 #### [address] Complement Total (CH50)on Complement Total (CH50) 49 Normal >41 [facility] Comment on above: Result Comment: Age Male [...] out of range values. Performed at: - [facility] [address] [id number] Financial Management: Zechariah Paula PhD, Phone: [phone] PERFORMED BY: [place] [address] PATHOLOGIST OUTPATIENT INTERVIEWING CLERK LISA COOLEY M.D. Performed By: #### M ITOM2, L-K MICRO, ALPHA PHEN, HEMOCHROM, CERULOP, TENA, IGG, SMAB #### [facility] , #### PARVEEN, TSH3 #### [address] Complete Blood Count Auto Di ffon 05-19-2023 Mean Corpuscular HGB Conc 34.1 g/dL Normal 32.5-35.6 [facility] Comment on above: Performed By: #### M ITOM2, L-K MICRO, ALPHA PHEN, HEMOCHROM, CERULOP, TENA, IGG, SMAB #### [facility] , #### PARVEEN, TSH3 #### [address] NRBC% 0.2 /100{WBC} Normal 0-0.5 [facility] Comment on above: Performed By: #### M ITOM2, L-K MICRO, ALPHA PHEN, HEMOCHROM, CERULOP, TENA, IGG, SMAB #### [facility] , #### PARVEEN, TSH3 #### [address] Comprehensive Metabolic Pane darnell 05-19-2023 Albumin [Mass/Vol] 4.4 g/dL Normal 3.5-5.7 [facility] Comment on above: Performed By: #### M ITOM2, L-K MICRO, ALPHA PHEN, HEMOCHROM, CERULOP, TENA, IGG, SMAB #### [facility] , #### PARVEEN, TSH3 #### [place] [address] [place] GFR/1.73 sq M.predicted MDRD (S/P/Bld) [Vol rate/Area] mL/min/{1.73_m2} Normal [facility] Comment on above: Performed By: #### M ITOM2, L-K MICRO, ALPHA PHEN, HEMOCHROM, CERULOP, TENA, IGG, SMAB #### [facility] , #### PARVEEN, TSH3 #### [address] Creatine kinase [Enzymatic a ctivity/volume] in Serum or PlasmaOrdered By: Lewis Mirza on 05-19-2023 CK [Catalytic activity/Vol] 112 U/L Normal 30-223 [facility] Comment on above: Result Comment: PERF ORMED BY: [place] [address] PATHOLOGIST OUTPATIENT INTERVIEWING CLERK LISA COOLEY M.D. Performed By: #### M ITOM2, L-K MICRO, ALPHA PHEN, HEMOCHROM, CERULOP, TENA, IGG, SMAB #### [facility] , #### PARVEEN, TSH3 #### [place] [address] [place] Creatinine [Mass/volume] in Serum or PlasmaOrdered By: Lewis Mirza on 05-19-2023 Creatinine [Mass/Vol] 0.78 mg/dL Normal 0.70-1.30 [facility] Comment on above: Performed By: #### M ITOM2, L-K MICRO, ALPHA PHEN, HEMOCHROM, CERULOP, TENA, IGG, SMAB #### [facility] , #### PARVEEN, TSH3 #### [address] DNA double strand Ab [Units/ volume] in SerumOrdered By: Lewis Mirza on 05-19-2023 DNA double strand Ab Qn (S) 3 [IU]/mL 0-9 [facility] Comment on above: Negative <5 Equivoca l 5 - 9 Positive >9 Dipstick and Microscopicon 0 05-19-2023 Appearance (U) Clear Normal Clear [facility] Comment on above: Order Comment: Reaso n for Exam Elevated LFTs Reason for Exam Fatigue Performed By: #### M ITOM2, L-K MICRO, ALPHA PHEN, HEMOCHROM, CERULOP, TENA, IGG, SMAB #### [facility] , #### PARVEEN, TSH3 #### [facility] [address] Bacteria,Urine None Seen Normal None Seen [facility] Comment on above: Order Comment: Reaso n for Exam Elevated LFTs Reason for Exam Fatigue Performed By: #### M ITOM2, L-K MICRO, ALPHA PHEN, HEMOCHROM, CERULOP, TENA, IGG, SMAB #### [facility] , #### PARVEEN, TSH3 #### [facility] [address] Bilirubin,Urine Negative Normal Negative [facility] Comment on above: Order Comment: Reaso n for Exam Elevated LFTs Reason for Exam Fatigue Performed By: #### M ITOM2, L-K MICRO, ALPHA PHEN, HEMOCHROM, CERULOP, TENA, IGG, SMAB #### [facility] , #### PARVEEN, TSH3 #### [facility] [address] Glucose Ql (U) Normal Normal Normal [facility] Comment on above: Order Comment: Reaso n for Exam Elevated LFTs Reason for Exam Fatigue Performed By: #### M ITOM2, L-K MICRO, ALPHA PHEN, HEMOCHROM, CERULOP, TENA, IGG, SMAB #### [facility] , #### PARVEEN, TSH3 #### [facility] [address] Hyaline Casts,Urine None Seen Normal 0-8 [facility] Comment on above: Order Comment: Reaso n for Exam Elevated LFTs Reason for Exam Fatigue Result Comment: PERF ORMED BY: [place] [address] PATHOLOGIST OUTPATIENT INTERVIEWING CLERK LISA COOLEY M.D. Performed By: #### M ITOM2, L-K MICRO, ALPHA PHEN, HEMOCHROM, CERULOP, TENA, IGG, SMAB #### [facility] , #### PARVEEN, TSH3 #### [address] Ketones Ql (U) Negative Normal Negative [facility] Comment on above: Order Comment: Reaso n for Exam Elevated LFTs Reason for Exam Fatigue Performed By: #### M ITOM2, L-K MICRO, ALPHA PHEN, HEMOCHROM, CERULOP, TENA, IGG, SMAB #### [facility] , #### PARVEEN, TSH3 #### [address] Leukocyte esterase Test strip Ql (U) Negative Normal Negative [facility] Comment on above: Order Comment: Reaso n for Exam Elevated LFTs Reason for Exam Fatigue Performed By: #### M ITOM2, L-K MICRO, ALPHA PHEN, HEMOCHROM, CERULOP, TENA, IGG, SMAB #### [facility] , #### PARVEEN, TSH3 #### [address] Nitrite,Urine Negative Normal Negative [facility] Comment on above: Order Comment: Reaso n for Exam Elevated LFTs Reason for Exam Fatigue Performed By: #### M ITOM2, L-K MICRO, ALPHA PHEN, HEMOCHROM, CERULOP, TENA, IGG, SMAB #### [facility] , #### PARVEEN, TSH3 #### [address] Occult Blood,Urine Negative Normal Negative [facility] Comment on above: Order Comment: Reaso n for Exam Elevated LFTs Reason for Exam Fatigue Performed By: #### M ITOM2, L-K MICRO, ALPHA PHEN, HEMOCHROM, CERULOP, TENA, IGG, SMAB #### [facility] , #### PARVEEN, TSH3 #### [address] Protein,Urine Negative Normal Negative [facility] Comment on above: Order Comment: Reaso n for Exam Elevated LFTs Reason for Exam Fatigue Performed By: #### M ITOM2, L-K MICRO, ALPHA PHEN, HEMOCHROM, CERULOP, TENA, IGG, SMAB #### [facility] , #### PARVEEN, TSH3 #### [address] RBC,Urine 1-2 Normal 0-4 [facility] Comment on above: Order Comment: Reaso n for Exam Elevated LFTs Reason for Exam Fatigue Performed By: #### M ITOM2, L-K MICRO, ALPHA PHEN, HEMOCHROM, CERULOP, TENA, IGG, SMAB #### [facility] , #### PARVEEN, TSH3 #### [address] Specificy [place],Urine 1.023 Normal 1.00 1-1.03 0 [facility] Comment on above: Order Comment: Reaso n for Exam Elevated LFTs Reason for Exam Fatigue Performed By: #### M ITOM2, L-K MICRO, ALPHA PHEN, HEMOCHROM, CERULOP, TENA, IGG, SMAB #### [facility] , #### PARVEEN, TSH3 #### [address] Squamous Epithelial Cell,Urine None Seen Normal 0-2 [facility] Comment on above: Order Comment: Reaso n for Exam Elevated LFTs Reason for Exam Fatigue Performed By: #### M ITOM2, L-K MICRO, ALPHA PHEN, HEMOCHROM, CERULOP, TENA, IGG, SMAB #### [facility] , #### PARVEEN, TSH3 #### [address] Urobilinogen,Urine Normal Normal Normal [facility] Comment on above: Order Comment: Reaso n for Exam Elevated LFTs Reason for Exam Fatigue Performed By: #### M ITOM2, L-K MICRO, ALPHA PHEN, HEMOCHROM, CERULOP, TENA, IGG, SMAB #### [facility] , #### PARVEEN, TSH3 #### [address] WBC,Urine None Seen Normal 0-4 [facility] Comment on above: Order Comment: Reaso n for Exam Elevated LFTs Reason for Exam Fatigue Performed By: #### M ITOM2, L-K MICRO, ALPHA PHEN, HEMOCHROM, CERULOP, TENA, IGG, SMAB #### [facility] , #### PARVEEN, TSH3 #### [address] Erythrocyte Sedimentation Ra andra 05-19-2023 ESR (Bld) [Velocity] 14 mm/h Normal 0-14 [facility] Comment on above: Result Comment: PERF ORMED BY: [place] [address] PATHOLOGIST OUTPATIENT INTERVIEWING CLERK LISA COOLEY M.D. Performed By: #### M ITOM2, L-K MICRO, ALPHA PHEN, HEMOCHROM, CERULOP, TENA, IGG, SMAB #### [facility] , #### PARVEEN, TSH3 #### [address] Erythrocyte distribution wid th [Ratio] by Automated countOrdered By: Lewis Mirza on 05-19-2023 Erythrocyte distribution width (RBC) [Ratio] 13.0 % Normal 12.0-14.8 [facility] Comment on above: Performed By: #### M ITOM2, L-K MICRO, ALPHA PHEN, HEMOCHROM, CERULOP, TENA, IGG, SMAB #### [facility] , #### PARVEEN, TSH3 #### [facility] [address] [place] [address] [place] Erythrocyte sedimentation ra te by Photometric methodOrdered By: Lewis Mirza on 05-19-2023 ESR Photometric method (Bld) [Velocity] 14 mm/hr 0-14 [facility] Erythrocytes [#/volume] in B lood by Automated countOrdered By: Lewis Mirza on 05-19-2023 RBC (Bld) [#/Vol] 4.85 10*6/uL Normal 3.90-5.60 [facility] Comment on above: Performed By: #### M ITOM2, L-K MICRO, ALPHA PHEN, HEMOCHROM, CERULOP, TENA, IGG, SMAB #### [facility] , #### PARVEEN, TSH3 #### [facility] [address] Fibrillarin Ab [Presence] in SerumOrdered By: Lewis Mirza on 05-19-2023 Fibrillarin Ab Ql (S) Negative Negative [facility] Comment on above: This test was develo ped and its performance characteristicsdetermined by [facility]. It has not been cleared orapproved by the Food and Drug Administration.Performed at: [employer] [facility] [facility] [employer] [address] [id number] Director: Issa Thao MD, Phone: [phone] Glucose [Mass/volume] in Ser um or PlasmaOrdered By: Lewis Mirza on 05-19-2023 Glucose [Mass/Vol] 98 mg/dL Normal 70-100 [facility] Comment on above: ADA recommended refe rence rangeRandom Glucose Reference Range is dependent on time and content of last meal. Glucose of more than 200 mg/dL in a nonstressed, ambulatory subject supports the diagnosis of Diabetes Mellitus. Result Comment: [place] om Glucose Reference Range is dependent on time and content of last meal. Glucose of more than 200 mg/dL in a nonstressed, ambulatory subject supports the diagnosis of Diabetes Mellitus. ADA recommended reference range Performed By: #### M ITOM2, L-K MICRO, ALPHA PHEN, HEMOCHROM, CERULOP, TENA, IGG, SMAB #### [facility] , #### PARVEEN, TSH3 #### [address] Hematocrit [Volume Fraction] of Blood by Automated countOrdered By: Lewis Mirza on 05-19-2023 Hematocrit (Bld) [Volume fraction] 41.7 % Normal 38.8-50.0 [facility] Comment on above: Performed By: #### M ITOM2, L-K MICRO, ALPHA PHEN, HEMOCHROM, CERULOP, TENA, IGG, SMAB #### [facility] , #### PARVEEN, TSH3 #### [address] Hemoglobin [Mass/volume] in BloodOrdered By: Lewis Mirza on 05-19-2023 Hemoglobin (Bld) [Mass/Vol] 14.2 g/dL Normal 13.0-17.0 [facility] Comment on above: Performed By: #### M ITOM2, L-K MICRO, ALPHA PHEN, HEMOCHROM, CERULOP, TENA, IGG, SMAB #### [facility] , #### PARVEEN, TSH3 #### [address] Ketones Auto test strip (U) [Mass/Vol]Ordered By: Lewis Mirza on 05-19-2023 Ketones (U) [Mass/Vol] Negative Negative [facility] - Serology - non- microOrdered By: Lewis Mirza on 05-19-2023 SCL-70 extractable nuclear Ab IA Qn (S) <0.2 AI 0.0-0.9 [facility] Laboratory - UrinalysisOrder ed By: Lewis Mirza on 05-19-2023 Hyaline casts LM Ql (Urine sed) None seen [LPF] 0-8 [facility] Leukocytes [#/volume] correc sirisha for nucleated erythrocytes in Blood by Automated counOrdered By: Lewis Mirza on 05-19-2023 WBC corrected for nucl RBC Auto (Bld) [#/Vol] 6.4 10*3/uL 4.1-10.5 [facility] Leukocytes [#/volume] in Blo od by Automated countOrdered By: Lewis Mirza on 05-19-2023 WBC (Bld) [#/Vol] 6.4 10*3/uL Normal 4.1-10.5 [facility] Comment on above: Performed By: #### M ITOM2, L-K MICRO, ALPHA PHEN, HEMOCHROM, CERULOP, TENA, IGG, SMAB #### [facility] , #### PARVEEN, TSH3 #### [facility] [address] [place] [address] [place] Lymphocytes [#/volume] in Bl ood by Automated countOrdered By: Lewis Mirza on 05-19-2023 Lymphocytes (Bld) [#/Vol] 2.1 10*3/uL Normal 1.00-4.8 [facility] Comment on above: Performed By: #### M ITOM2, L-K MICRO, ALPHA PHEN, HEMOCHROM, CERULOP, TENA, IGG, SMAB #### [facility] , #### PARVEEN, TSH3 #### [facility] [address] [place] [address] [place] Lymphocytes/100 leukocytes i n Blood by Automated countOrdered By: Lewis Mirza on 05-19-2023 Lymphocytes/100 WBC (Bld) 32.5 % Normal . [facility] Comment on above: Performed By: #### M ITOM2, L-K MICRO, ALPHA PHEN, HEMOCHROM, CERULOP, TENA, IGG, SMAB #### [facility] , #### PARVEEN, TSH3 #### [facility] [address] [place] [address] [place] MCH [Entitic mass] by Automa sirisha countOrdered By: Lewis Mirza on 05-19-2023 MCH (RBC) [Entitic mass] 29.3 pg Normal 27.5-35.2 [facility] Comment on above: Performed By: #### M ITOM2, L-K MICRO, ALPHA PHEN, HEMOCHROM, CERULOP, TENA, IGG, SMAB #### [facility] , #### PARVEEN, TSH3 #### [address] MCHC Auto (RBC) [Mass/Vol]Or dered By: Lewis Mirza on 05-19-2023 MCHC (RBC) [Mass/Vol] 34.1 g/dL 32.5-35.6 [facility] MCV [Entitic volume] by Auto mated countOrdered By: Lewis Mirza on 05-19-2023 MCV (RBC) [Entitic vol] 86.0 fL Normal 83.5-101 [facility] Comment on above: Performed By: #### M ITOM2, L-K MICRO, ALPHA PHEN, HEMOCHROM, CERULOP, TENA, IGG, SMAB #### [facility] , #### PARVEEN, TSH3 #### [address] Neutrophils [#/volume] in Bl ood by Automated countOrdered By: Lewis Mirza on 05-19-2023 Neutrophils (Bld) [#/Vol] 3.4 10*3/uL Normal 1.8-7.7 [facility] Comment on above: Performed By: #### M ITOM2, L-K MICRO, ALPHA PHEN, HEMOCHROM, CERULOP, TENA, IGG, SMAB #### [facility] , #### PARVEEN, TSH3 #### [address] Nitrite Test strip Ql (U)Ord ered By: Lewis Mirza on 05-19-2023 Nitrite Ql (U) Negative Negative [facility] No Panel InformationOrdered By: Lewis Mirza on 05-19-2023 Estimated GFR (CKD-EPI) > 60.0 mL/Min [facility] Creatinine Clearance (Chem N/A [facility] VICE PRESIDENT RESEARCH Antibody 0.6 AI 0.0-0.9 [facility] Serology Comments N/A [facility] Total Complement (CH50) 49 U/mL >41 [facility] Comment on above: Age Male Female [...] to determine out of range values.Performed at: [facility] [employer] [id number] Director: Zechariah Paula PhD, Phone: [phone] Nucleated erythrocytes [Pres ence] in Blood by Automated countOrdered By: Lewis Mirza on 05-19-2023 Nucleated RBC Auto Ql (Bld) 0.2 /100{WBC} 0-0.5 [facility] PM-SCL Antibodieson 05-19-19 24 ANDREE PM-Scl Antibody <20 Normal <20 [facility] Comment on above: Result Comment: This test was developed and its performance characteristics determined by [employer]. It has not been cleared or approved by the Food and Drug Administration. Negative: <20 Weak Positive: 20 - 39 Moderate Positive: 40 - 80 Strong Positive: >80 Performed at: [employer] [address] [place] [id number] Financial Management: Issa Thao MD, Phone: [phone] Performed By: #### M ITOM2, L-K MICRO, ALPHA PHEN, HEMOCHROM, CERULOP, TENA, IGG, SMAB #### [facility] , #### PARVEEN, TSH3 #### [address] PM-Scl antibody assay by imm unodiffusionOrdered By: Lewis Mirza on 05-19-2023 PM-SCL extractable nuclear Ab Immune diff (S) [Mass/Vol] <20 Units <20 [facility] Comment on above: This test was develo ped and its performance characteristicsdetermined by [employer]. It has not been cleared orapproved by the Food and Drug Administration. Negative: <20 Weak Positive: 20 - 39 Moderate Positive: 40 - 80 Strong Positive: >80Performed at: [facility] [id number] [place], [place] [id number] Director: Issa Thao MD, Phone: [phone] Platelet mean volume [Entiti c volume] in Blood by Automated countOrdered By: Lewis Mirza on 05-19-2023 Platelet mean volume (Bld) [Entitic vol] 9.2 fL Normal 6.6-10.1 [facility] Comment on above: Performed By: #### M ITOM2, L-K MICRO, ALPHA PHEN, HEMOCHROM, CERULOP, TENA, IGG, SMAB #### [facility] , #### PARVEEN, TSH3 #### [address] Platelets [#/volume] in Bloo d by Automated countOrdered By: Lewis Mirza on 05-19-2023 Platelets (Bld) [#/Vol] 254 10*3/uL Normal 150-450 [facility] Comment on above: Performed By: #### M ITOM2, L-K MICRO, ALPHA PHEN, HEMOCHROM, CERULOP, TENA, IGG, SMAB #### [facility] , #### PARVEEN, TSH3 #### [address] Potassium [Moles/volume] in Serum or PlasmaOrdered By: Lewis Mirza on 05-19-2023 Potassium [Moles/Vol] 3.8 mmol/L Normal 3.5-5.1 [facility] Comment on above: Performed By: #### M ITOM2, L-K MICRO, ALPHA PHEN, HEMOCHROM, CERULOP, TENA, IGG, SMAB #### [facility] , #### PARVEEN, TSH3 #### [address] Protein Auto test strip (U) [Mass/Vol]Ordered By: Lewis Mirza on 05-19-2023 Protein (U) [Mass/Vol] Negative Negative [facility] Protein [Mass/volume] in Ser um or PlasmaOrdered By: Lewis Mirza on 05-19-2023 Protein [Mass/Vol] 7.1 g/dL Normal 6.4-8.9 [facility] Comment on above: Performed By: #### M ITOM2, L-K MICRO, ALPHA PHEN, HEMOCHROM, CERULOP, TENA, IGG, SMAB #### [facility] , #### PARVEEN, TSH3 #### [address] RNA Polymerase IIion 024 RNA Polymerase IIi <20 Normal <20 [facility] Comment on above: Result Comment: Nega tive: <20 Weak Positive: 20 - 39 Moderate Positive: 40 - 80 Strong Positive: >80 Performed at: [facility] [address] [place], [place] [id number] Financial Management: Issa Thao MD, Phone: [phone] PERFORMED BY: [place] [address] PATHOLOGIST OUTPATIENT INTERVIEWING CLERK LISA COOLEY M.D. Performed By: #### M ITOM2, L-K MICRO, ALPHA PHEN, HEMOCHROM, CERULOP, TENA, IGG, SMAB #### [facility] , #### PARVEEN, TSH3 #### [address] RNA polymerase III IgG Ab [U nits/volume] in Serum or Plasma by ImmunoassayOrdered By: Lewis Mirza on 05-19-2023 RNA polymerase III IgG IA Qn <20 Units <20 [facility] Comment on above: Negative: <20 Weak P ositive: 20 - 39 Moderate Positive: 40 - 80 Strong Positive: >80Performed at: [facility] [id number] [place], [place] [id number] Director: Issa Thao MD, Phone: [phone] Scleroderma 70 Antibodieson 05-19-2023 Scleroderma 70 Antibodies <0.2 Normal 0.0-0.9 [facility] Comment on above: Performed By: #### M ITOM2, L-K MICRO, ALPHA PHEN, HEMOCHROM, CERULOP, TENA, IGG, SMAB #### [facility] , #### PARVEEN, TSH3 #### [address] Serum Newberry extractable nucl ear antigen (ANDREE) antibody assay (units/volume)Ordered By: Lewis Mirza on 05-19-2023 Newberry extractable nuclear Ab Qn (S) <0.2 AI 0.0-0.9 [facility] Serum centromere protein B a ntibody assay (units/volume)Ordered By: Lweis Mirza on 05-19-2023 Centromere protein B Ab Qn (S) <0.2 AI 0.0-0.9 [facility] Comment on above: Performed at: [address] Director: Zechariah Paula PhD, Phone: [phone] Serum globulin measurement b y calculation (mass/volume)Ordered By: Lewis Mirza on 05-19-2023 Globulin (S) [Mass/Vol] 2.7 g/dL Normal [facility] Comment on above: Performed By: #### M ITOM2, L-K MICRO, ALPHA PHEN, HEMOCHROM, CERULOP, TENA, IGG, SMAB #### [facility] , #### PARVEEN, TSH3 #### [address] Serum or plasma albumin/glob ulin mass ratioOrdered By: Lewis Mirza on 05-19-2023 Albumin/Globulin [Mass ratio] 1.6 {ratio} Normal [facility] Comment on above: Performed By: #### M ITOM2, L-K MICRO, ALPHA PHEN, HEMOCHROM, CERULOP, TENA, IGG, SMAB #### [facility] , #### PARVEEN, TSH3 #### [address] Serum or plasma anion gap de terminationOrdered By: Lewis Mirza on 05-19-2023 Anion gap [Moles/Vol] 14.3 mmol/L Normal 6.0-15.0 [facility] Comment on above: Performed By: #### M ITOM2, L-K MICRO, ALPHA PHEN, HEMOCHROM, CERULOP, TENA, IGG, SMAB #### [facility] , #### PARVEEN, TSH3 #### [address] Serum or plasma complement C 3 measurement (mass/volume)Ordered By: Lewis Mirza on 05-19-2023 Complement C3 [Mass/Vol] 161 mg/dL 82-167 [facility] Comment on above: Performed at: [place] [id number] Director: Zechariah Paula PhD, Phone: [phone] Serum or plasma complement C 4 measurement (mass/volume)Ordered By: Lewis Mirza on 05-19-2023 Complement C4 [Mass/Vol] 24 mg/dL 12-38 [facility] Sodium [Moles/volume] in Ser um or PlasmaOrdered By: Lewis Mirza on 05-19-2023 Sodium [Moles/Vol] 141 mmol/L Normal 136-145 [facility] Comment on above: Performed By: #### M ITOM2, L-K MICRO, ALPHA PHEN, HEMOCHROM, CERULOP, TENA, IGG, SMAB #### [facility] , #### PARVEEN, TSH3 #### [address] Specific gravity Auto test s trip (U) [Rel density]Ordered By: Lewis Mirza on 05-19-2023 Specific gravity (U) [Rel density] 1.023 1.001-1.03 0 [facility] Squamous epithelial cells de tection in urine sediment by light microscopyOrdered By: Lewis Mirza on 05-19-2023 Epithelial cells.squamous LM Ql (Urine sed) None seen [HPF] 0-2 [facility] Th-To Ab [Units/volume] in S saima by Line blotOrdered By: Lewis Mirza on 05-19-2023 Th-To Ab Line blot Qn (S) Negative Negative [facility] Comment on above: This test was develo ped and its performance characteristicsdetermined by [facility]. It has not been cleared orapproved by the Food and Drug Administration.Performed at: [employer] [facility] [id number] [place], [place] [id number] Director: Issa Thao MD, Phone: [phone] Th/To Antibodyon 05-19-2023 Th/To Antibody Negative Normal Negative [facility] Comment on above: Result Comment: This test was developed and its performance characteristics determined by [facility]. It has not been cleared or approved by the Food and Drug Administration. Performed at: [facility] [address] [place], [place] [id number] Financial Management: Issa Thao MD, Phone: [phone] Performed By: #### M ITOM2, L-K MICRO, ALPHA PHEN, HEMOCHROM, CERULOP, TENA, IGG, SMAB #### [facility] , #### PARVEEN, TSH3 #### [facility] [address] [place] [address] Thyrotropin [Units/volume] i n Serum or PlasmaOrdered By: Lewis Mirza on 05-19-2023 TSH Qn 1.01 m[IU]/L Normal 0.45-5.33 [facility] Comment on above: Result Comment: PERF ORMED BY: [place] [address] PATHOLOGIST OUTPATIENT INTERVIEWING CLERK LISA COOLEY M.D. Performed By: #### M ITOM2, L-K MICRO, ALPHA PHEN, HEMOCHROM, CERULOP, TENA, IGG, SMAB #### [facility] , #### PARVEEN, TSH3 #### [facility] [address] [place] [address] U3 Rnpon 05-19-2023 U3 Passenger [place] Negative Normal Negative [facility] Comment on above: Result Comment: This test was developed and its performance characteristics determined by [facility]. It has not been cleared or approved by the Food and Drug Administration. Performed at: [employer] [facility] [employer] [address] [place] [id number] Financial Management: Issa Thao MD, Phone: [phone] PERFORMED BY: [place] [address] PATHOLOGIST OUTPATIENT INTERVIEWING CLERK LISA COOLEY M.D. Performed By: #### M ITOM2, L-K MICRO, ALPHA PHEN, HEMOCHROM, CERULOP, TENA, IGG, SMAB #### [facility] , #### PARVEEN, TSH3 #### [address] Urea nitrogen [Mass/volume] in Serum or PlasmaOrdered By: Lewis Mirza on 05-19-2023 Urea nitrogen [Mass/Vol] 10 mg/dL Normal 7-25 [facility] Comment on above: Performed By: #### M ITOM2, L-K MICRO, ALPHA PHEN, HEMOCHROM, CERULOP, TENA, IGG, SMAB #### [facility] , #### PARVEEN, TSH3 #### [address] Urine bacteria detection by automated methodOrdered By: Lewis Mirza on 05-19-2023 Bacteria Auto Ql (U) None seen None Seen [facility] Urine clarity by refractomet ry automatedOrdered By: Lewis Mirza on 05-19-2023 Clarity Refractometry automated (U) Clear Clear [facility] Urine glucose measurement by automated test strip (mass/volume)Ordered By: Lewis Mirza on 05-19-2023 Glucose Auto test strip (U) [Mass/Vol] Normal mg/dL Normal [facility] Urine hemoglobin detection b y automated test stripOrdered By: Lewis Mirza on 05-19-2023 Hemoglobin Auto test strip Ql (U) Negative Negative [facility] Urine leukocyte esterase det ection by automated test stripOrdered By: Lewis Mirza on 05-19-2023 Leukocyte esterase Auto test strip Ql (U) Negative Negative [facility] Urine pH measurement by auto mated test stripOrdered By: Lewis Mirza on 05-19-2023 pH (U) 5.5 [pH] Normal 5.0-9.0 [facility] Comment on above: Order Comment: Reaso n for Exam Elevated LFTs Reason for Exam Fatigue Performed By: #### M ITOM2, L-K MICRO, ALPHA PHEN, HEMOCHROM, CERULOP, TENA, IGG, SMAB #### [facility] , #### PARVEEN, TSH3 #### [address] Urobilinogen Auto test strip (U) [Mass/Vol]Ordered By: Lewis Mirza on 05-19-2023 Urobilinogen (U) [Mass/Vol] Normal mg/dL Normal [facility] XR knee BI 2Von 05-19-2023 XR knee BI 2V [facility] [place] [address] [place] [address] XRay Report Signed Patient: Ta Duncan MR#: [id number] 0 : 2005 Acct:[id number] Age/Sex: 17 / M ADM Date: 05/19/23 Loc: ICXD Room: Type[facility] Attending Dr: Lewis Mirza MD Copies to: Lewis Mirza MD Ordering Provider: Lewis Mirza MD Date of Service: 05/19/23 XR/XR knee BI 2V: PAIN ([id number]) XR/XR thoracic spine 3V*: PAIN THORACIC SPINE [...] KNEES. Impression dictated by: Ki Davila Jr., D.OAlexander05/19/2023 2:25 PM Dictation Location: [place] [address] Transcribed By: [facility] 05/19/23 142 Dictated By: Ki Davila Jr, 05/19/231423 Signed By: 05/19/23 1425 Normal [facility] Miscellaneouson 04-30-2023 Miscellaneous [id number] 2042 [id number] TGTIFF Normal [facility] Outside Recordson 04-22-2023 Outside Records [id number] [id number] IFF Normal [facility] TENA Antinuclear Antibodieson 04-21-2023 Antinuclear Abs, IFA Positive Critically abnormal . [facility] Comment on above: Order Comment: Reaso n for Exam Elevated LFTs Result Comment: Nega tive <1:80 Borderline 1:80 Positive >1:80 Performed By: #### M ITOM2, L-K MICRO, ALPHA PHEN, HEMOCHROM, CERULOP, TENA, IGG, SMAB #### [facility] , #### PARVEEN, TSH3 #### [facility] [address] Homogeneous Pattern 1:160 High . [facility] Comment on above: Order Comment: Reaso n for Exam Elevated LFTs Result Comment: ICAP nomenclature: AC-1 Performed By: #### M ITOM2, L-K MICRO, ALPHA PHEN, HEMOCHROM, CERULOP, TENA, IGG, SMAB #### [facility] , #### PARVEEN, TSH3 #### [facility] [address] Note 1 Normal . [facility] Comment on above: Order Comment: Reaso n for Exam Elevated LFTs Result Comment: Nola slade Potential [employer] Homogeneous Systemic Lupus Erythematosus, Drug Induced Systemic Lupus Erythematosus, Chronic Autoimmune hepatitis, Juvenile Idiopathic Arthritis Speckled Sjogren Syndrome, Systemic Lupus Erythematosus, Subacute Cutaneous Lupus, Lupus, Congenital Heart Block, Mixed Connective Tissue Disease, Scleroderma-diffuse, Scleroderma-Autoimmune Myositis Overlap Syndrome, Systemic Lupus Ylbfqsgyggsjt-Fgdjjmhnaoq-Psrdhgwmtg Myositis Overlap Syndrome, Systemic Autoimmune Rheumatic Disease, [...] Scleroderma, Antiphospholipid Syndrome Performed at: - [facility] [address] [id number] Financial Management: Zechariah Paula PhD, Phone: [phone] Performed By: #### M ITOM2, L-K MICRO, ALPHA PHEN, HEMOCHROM, CERULOP, TENA, IGG, SMAB #### [facility] , #### PARVEEN, TSH3 #### [facility] [address] Actin smooth muscle IgG Ab [ Units/volume] in SerumOrdered By: Imad Asaad on 04-21-2023 Actin smooth muscle IgG Qn (S) 13 Units 0-19 [facility] Comment on above: Negative 0 - 19 Weak positive 20 - 30 Moderate to strong positive >30 Actin Antibodies are found in 52-85% of patients with autoimmune hepatitis or chronic active hepatitis and in 22% of patients with primary biliary cirrhosis. Gtcqi-4-Xfhxtxjilgy Phenotyp meri 04-21-2023 Alpha 1 Anti-Trypsin 139 mg/dL Normal 95-164 [facility] Comment on above: Order Comment: Reaso n for Exam Elevated LFTs Performed By: #### M ITOM2, L-K MICRO, ALPHA PHEN, HEMOCHROM, CERULOP, TENA, IGG, SMAB #### [facility] , #### PARVEEN, TSH3 #### [address] Phenotype (P1) MM Normal . [facility] Comment on above: Order Comment: Reaso n [...] used to confirm phenotype. Performed at: - [facility] [id number] [place], [place] [id number] Financial Management: Zechariah Paula PhD, Phone: [phone] Performed at: - [facility] [id number] Financial Management: Aston Omalley MD, Phone: [phone] Performed By: #### M ITOM2, L-K MICRO, ALPHA PHEN, HEMOCHROM, CERULOP, TENA, IGG, SMAB #### [facility] , #### PARVEEN, TSH3 #### [address] Blood or tissue HFE gene mut ations identification by molecular genetics methodOrdered By: Wilver Felton on 04-21-2023 HFE gene targeted mutation analysis Molgen Nom (Bld/Tiss) See comment . [facility] Comment on above: Result:c.845G>A (p.C oh105Xgo) - Not Detectedc.187C>G (p.Msu49Wpi) - Not Detectedc.193A>T (p.Vov51Yoo) - Not DetectedNot associated with increased risk [...] recommended for patientswho are homozygous for c.845G>A (p.Vxf716Spo) and have yetto experience clinical symptoms.Comments:The most common HFE variants associated with hereditaryhemochromatosis are c.845G>A (p.Wpr161Jxz), c.187C>G(p.Bia62Nfu), c.193A>T (p.Gok41Cka). While patientshomozygous for c.845G>A (p.Ygu708Fxs) are the most likelyto present clinical symptoms, less than 10% developclinically significant iron overload with tissue and organdamage.Genetic counseling is recommended to discuss the potentialclinical implications of positive results, as well asrecommendations for testing family members.Genetic Coordinators are available for health careproviders to discuss results at [phone]).Test Details:Three variants analyzed:c.845G>A (p.Osr727Ffw), commonly referred to as C282Yc.187C>G (p.Ecz85Ssi), commonly referred to as H63Dc.193A>T (p.Iai93Zpn), commonly referred to as U80MKarxqgg/Limitations:DNA Analysis of the HFE gene (NM_000410.4) was [...] was developed and its performancecharacteristics determined by [employer]. It has not beencleared or approved by the Food and Drug Administration.References:Paul BR, Joseph PC, Mohini KV, Christiano LW, Erick ;[employer] Liver [employer].Diagnosis and management of hemochromatosis: 2011 practiceguideline by the [employer] the Study ofLiver Diseases. Hepatology. 2010;54(1):328-43. doi:10.1002/hep.70576. PMID: 46400652; PMCID: IHO8080363.Surekha Hartman Shorty P, Hailey HENDERSON, Tor H, Corrine O,Simón S, Guerrero I, Alireza Bradford, Holly Sherwood. EMQN best practiceguidelines for the molecular genetic diagnosis ofhereditary hemochromatosis (HH). Eur J Hum Meliza. 2016Apr;24(4):479-46. doi: 10.1038/ejhg.2015.128. Epub 2014. PMID: 75825452; PMCID: [id number]. Ceruloplasminon 04-21-2023 Ceruloplasmin 23.7 mg/dL Normal 16.0-31.0 [facility] Comment on above: Order Comment: Reaso n for Exam Elevated LFTs Result Comment: Perf ormed at: - [facility] [address] [id number] Financial Management: Zechariah Paula PhD, Phone: [phone] PERFORMED BY: [place] [address] PATHOLOGIST OUTPATIENT INTERVIEWING CLERK LISA COOLEY M.D. Performed By: #### M ITOM2, L-K MICRO, ALPHA PHEN, HEMOCHROM, CERULOP, TENA, IGG, SMAB #### [facility] , #### PARVEEN, TSH3 #### [facility] [address] [place] [place] [address] Ferritin [Mass/volume] in Se rum or PlasmaOrdered By: Wilver Felton on 04-21-2023 Ferritin [Mass/Vol] 59.0 ng/mL Normal 23.9-336.2 [facility] Comment on above: Order Comment: Reaso n for Exam Elevated LFTs Reason for Exam Fatigue Performed By: #### M ITOM2, L-K MICRO, ALPHA PHEN, HEMOCHROM, CERULOP, TENA, IGG, SMAB #### [facility] , #### PARVEEN, TSH3 #### [facility] [address] [place] [place] [address] Hereditary Hemochromatosis,Carmella Haq 04-21-2023 Hereditary Hemochromatosis Normal . [facility] Comment on above: Order Comment: Reaso n for Exam Elevated LFTs Result Comment: Resu lt: c.845G>A (p.Als166Dmz) - Not Detected c.187C>G (p.Ixq15Hek) - Not Detected c.193A>T (p.Bru27Ota) - Not Detected Not associated with increased [...] for patients who are homozygous for c.845G>A (p.Crd974Vna) and have yet to experience clinical symptoms. Comments: The most common HFE variants associated with hereditary hemochromatosis are c.845G>A (p.Fyo605Cgz), c.187C>G (p.Pxh07Sio), c.193A>T (p.Udm40Btm). While patients homozygous for c.845G>A (p.Clx282Bvu) are the most likely to present clinical symptoms, less than 10% develop clinically significant iron overload with tissue and organ damage. Genetic counseling is recommended to discuss the potential clinical implications of positive results, as well as recommendations for testing family members. Genetic Coordinators are available for health care providers to discuss results at [phone] Test Details: Three variants analyzed: c.845G>A (p.Xlb077Ybc), commonly referred to as C282Y c.187C>G (p.Jif79Gbw), commonly referred to as H63D c.193A>T (p.Beq56Aqc), commonly referred to as S65C Methods/Limitations: DNA [...] developed and its performance characteristics determined by [facility]. It has not been cleared or approved by the Food and Drug Administration. References: Paul BR, Joseph PC, Mohini KV, Christiano LW, Erick ; [employer] Liver Diseases. Diagnosis and management of hemochromatosis: 2011 practice guideline by the [employer] Liver Diseases. Hepatology. 2011 Nov;54(1):328-43. doi: 10.1002/hep.65214. PMID: 22560665; PMCID: [id number]. Surekha G, Shorty P, Hailey HENDERSON, Tor H, Corrine O, Simón S, Guerrero I, Alireza M, Holly S. [facility] best practice guidelines for the molecular genetic diagnosis of hereditary hemochromatosis (HH). Eur J Hum Meliza. 2016 Aug;24(4):479-95. doi: 10.1038/ejhg.2015.128. Epub 2014Nov 15. PMID: 93115774; PMCID: [id number]. Performed By: #### M ITOM2, L-K MICRO, ALPHA PHEN, HEMOCHROM, CERULOP, TENA, IGG, SMAB #### [facility] , #### PARVEEN, TSH3 #### [facility] [address] [place] [address] [place] Reviewed by: Normal . [facility] Comment on above: Order Comment: Reaso n for Exam Elevated LFTs Result Comment: Tech nical Component performed at [facility] RTP Professional Component performed by: Daniella Birch, Ph.D., FACMG Director, Molecular Genetics [address] [place] [address] Dr Betsye AGUAYO [address] Performed at: - [facility] [address] [facility], [place] [id number] Financial Management: Dinesh Davis [facility], Phone: [phone] PERFORMED BY: [place] [address] PATHOLOGIST OUTPATIENT INTERVIEWING CLERK LISA COOLEY M.D. Performed By: #### M ITOM2, L-K MICRO, ALPHA PHEN, HEMOCHROM, CERULOP, TENA, IGG, SMAB #### [facility] , #### PARVEEN, TSH3 #### [facility] [address] [place] [place] [address] IgG [Mass/volume] in Serum o r PlasmaOrdered By: Wilver Felton on 04-21-2023 IgG [Mass/Vol] 1272 mg/dL [phone] [facility] Comment on above: Performed at: [employer] [address] [id number] Director: Zechariah Paula PhD, Phone: [phone] Immunoglobulin Asaf 3 Immunoglobulin G 1272 mg/dL Normal [phone] [facility] Comment on above: Order Comment: Reaso n for Exam Elevated LFTs Result Comment: Perf ormed at: [employer] [address] [id number] Financial Management: Zechariah Paula PhD, Phone: [phone] Performed By: #### M ITOM2, L-K MICRO, ALPHA PHEN, HEMOCHROM, CERULOP, TENA, IGG, SMAB #### [facility] , #### PARVEEN, TSH3 #### [facility] [address] [place] [place] [address] Liver-Kidney Microsomal Abon 04-21-2023 Liver-Kidney Microsomal Ab 1.5 Normal 0.0-20.0 [facility] Comment on above: Order Comment: Reaso n for Exam Elevated LFTs Result Comment: Nega tive 0.0 - 20.0 Equivocal 20.1 - 24.9 Positive >24.9 LKM type 1 antibodies are detected in patients with autoimmune hepatitis type 2 and in up to 8% of patients with chronic HCV infection. Performed at: [employer] [facility] [address] [id number] Financial Management: Zechariah Paula PhD, Phone: [phone] Performed By: #### M ITOM2, L-K MICRO, ALPHA PHEN, HEMOCHROM, CERULOP, TENA, IGG, SMAB #### [facility] , #### PARVEEN, TSH3 #### [facility] [address] [place] [place] [address] Mitochondrial (M2) Antibodyo n 04-21-2023 Mitochondrial (M2) Antibody <20.0 Normal 0.0-20.0 [facility] Comment on above: Order Comment: Reaso n for Exam Elevated LFTs Result Comment: Nega tive 0.0 - 20.0 Equivocal 20.1 - 24.9 Positive >24.9 Mitochondrial (M2) Antibodies are found in 90-96% of patients with primary biliary cirrhosis. Performed By: #### M ITOM2, L-K MICRO, ALPHA PHEN, HEMOCHROM, CERULOP, TENA, IGG, SMAB #### [facility] , #### PARVEEN, TSH3 #### [facility] [address] [place] [address] No Panel InformationOrdered By: Wilver Felton on 04-21-2023 Anti-Nuclear Antibody Comment 2 See comment . [facility] Comment on above: Pattern Potential Di sease Association Homogeneous Systemic Lupus Erythematosus, Drug Induced Systemic Lupus Erythematosus, Chronic Autoimmune hepatitis, Juvenile Idiopathic Arthritis Speckled Sjogren Syndrome, Systemic Lupus Erythematosus, Subacute Cutaneous Lupus, Lupus, Congenital Heart Block, Mixed Connective Tissue Disease, Scleroderma-diffuse, Scleroderma-Autoimmune Myositis Overlap Syndrome, Systemic Lupus Gyccfgbpasmim-Qtwemmymwpt-Qdktwflage Myositis Overlap Syndrome, Systemic Autoimmune Rheumatic Disease, [...] Cytopenias, Linear Scleroderma, Antiphospholipid Syndrome Performed at: [address] [id number] Director: Zechariah Paula PhD, Phone: [phone] Hemochromatosis Note See comment . [facility] Comment on above: Technical Component performed at [facility] RTPProfessional Component performed by:Daniella Birch, Ph.D., FACMGDirector, Molecular [address] [place] [address] [place] [address]Xshefuqox at: TG - [facility] [id number] Juni Munson, [facility], [place] [id number] Director: Dinesh Davis [facility], Phone: [phone] Serum rbtkx-2-araesywxnfb me asurementOrdered By: Imad Asaad on 04-21-2023 Alpha 1 antitrypsin [Mass/Vol] 139 mg/dL 95-164 [facility] Serum homogeneous pattern an tinuclear antibody (TENA) titerOrdered By: Imad Asaad on 04-21-2023 Homogenous nuclear Ab pattern (S) [Titer] 1:160 . [facility] Comment on above: ICAP nomenclature: A C-1 Serum mitochondria M2 IgG an tibody assay (units/volume)Ordered By: Imad Asaad on 04-21-2023 Mitochondria M2 IgG Qn (S) <20.0 Units 0.0-20.0 [facility] Comment on above: Negative 0.0 - 20.0 Equivocal 20.1 - 24.9 Positive >24.9Mitochondrial (M2) Antibodies are found in 90-96% ofpatients with primary biliary cirrhosis. Serum nuclear antibody titer Ordered By: Imad Asaad on 04-21-2023 Nuclear Ab (S) [Titer] Positive . [facility] Comment on above: Negative <1:80 Borde rline 1:80 Positive >1:80 Serum or plasma alpha 1 anti trypsin phenotyping identification by immunofixationOrdered By: Imad Asa on 04-21-2023 Alpha 1 antitrypsin phenotyping Immunofixation Nom Mm . [facility] Comment on above: Phenotype Population A-1-AT [...] reference. Ranges used to confirm phenotype.Performed at: [address] [id number] Director: Zechariah Paula PhD, Phone: [phone] at: [address] [id number] Director: Aston Omalley MD, Phone: [phone] Serum or plasma ceruloplasmi n measurement (mass/volume)Ordered By: Wilver Felton on 04-21-2023 Ceruloplasmin [Mass/Vol] 23.7 mg/dL 16.0-31.0 [facility] Comment on above: Performed at: [address] [id number] Director: Zechariah Paula PhD, Phone: [phone] Serum or plasma lipoprotein a measurement (moles/volume)Ordered By: Wilver Felton on 04-21-2023 Lipoprotein a [Moles/Vol] 1.5 Units 0.0-20.0 [facility] Comment on above: Negative 0.0 - 20.0 Equivocal 20.1 - 24.9 Positive >24.9LKM type 1 antibodies are detected in patients withautoimmune hepatitis type 2 and in up to 8% ofpatients with chronic HCV infection.Performed at: [address] [id number] Director: Zechariah Paula PhD, Phone: [phone] Smooth Muscle Antibodyon Smooth Muscle Antibody 13 Normal 0-19 [facility] Comment on above: Order Comment: Reaso n for Exam Elevated LFTs Result Comment: Nega tive 0 - 19 Weak positive 20 - 30 Moderate to strong positive >30 Actin Antibodies are found in 52-85% of patients with autoimmune hepatitis or chronic active hepatitis and in 22% of patients with primary biliary cirrhosis. Performed By: #### M ITOM2, L-K MICRO, ALPHA PHEN, HEMOCHROM, CERULOP, TENA, IGG, SMAB #### [facility] , #### PARVEEN, TSH3 #### [facility] [address] [place] [id number] [facility] Thyrotropin [Units/volume] i n Serum or PlasmaOrdered By: Imad Asaariana on 04-21-2023 TSH Qn 1.24 m[IU]/L Normal 0.45-5.33 [facility] Comment on above: Order Comment: Reaso n for Exam Elevated LFTs Reason for Exam Fatigue Result Comment: PERF ORMED BY: [place] [address] PATHOLOGIST OUTPATIENT INTERVIEWING CLERK LISA COOLEY M.D. Performed By: #### M ITOM2, L-K MICRO, ALPHA PHEN, HEMOCHROM, CERULOP, TENA, IGG, SMAB #### [facility] , #### PARVEEN, TSH3 #### [place] [id number] [facility] Miscellaneouson 04-07-2023 Miscellaneous [id number]#1.00OT GTIFF [facility] Miscellaneous [id number]#1.00OT GTIFF [facility] Outside Recordson 03-24-2023 Outside Records [id number]#1.00OTG TIFF [facility] Alanine aminotransferase [En zymatic activity/volume] in Serum or PlasmaOrdered By: Imad Asaad on 03-19-2023 ALT [Catalytic activity/Vol] 48 U/L 7-52 [facility] Albumin [Mass/volume] in Ser um or Plasma by Bromocresol green (BCG) dye binding methoOrdered By: Imad Asaad on 03-19-2023 Albumin BCG dye [Mass/Vol] 4.3 g/dL 3.5-5.7 [facility] Alkaline phosphatase [Enzyma tic activity/volume] in Serum or PlasmaOrdered By: Imad Asaad on 03-19-2023 ALP [Catalytic activity/Vol] 60 U/L 34-104 [facility] Aspartate aminotransferase [ Enzymatic activity/volume] in Serum or PlasmaOrdered By: Imad Jose Francisco on 03-19-2023 AST [Catalytic activity/Vol] 27 U/L 13-39 [facility] Bilirubin.direct [Mass/volum e] in Serum or PlasmaOrdered By: Imad Manuelad on 03-19-2023 Bilirubin.direct [Mass/Vol] 0.10 mg/dL 0.03-0.18 [facility] Bilirubin.total [Mass/volume ] in Serum or PlasmaOrdered By: Imad Asaad on 03-19-2023 Bilirubin [Mass/Vol] 0.8 mg/dL 0.3-1.0 [facility] Globulin Calc (S) [Mass/Vol] Ordered By: [facility] on 03-19-2023 Globulin (S) [Mass/Vol] 2.8 g/dL [facility] Hepatitis B virus surface Ab [Units/volume] in SerumOrdered By: ariana [facility] 03-19-2023 HBV surface Ab Qn (S) >1000.0 mIU/mL Immu nity>9 .9 [facility] Comment on above: Status of Immunity A nti-HBs Level Inconsistent with Immunity 0.0 - 9.9Consistent with Immunity >9.9 Hepatitis B virus surface Ag [Presence] in Serum or Plasma by ImmunoassayOrdered By: ariana Felton on 03-19-2023 HBV surface Ag IA Ql Negative Negative [facility] Hepatitis C virus IgG Ab [Pr esence] in Serum or Plasma by ImmunoassayOrdered By: ariana Felton on 03-19-2023 HCV IgG IA Ql Non-Reactive Non Reactive [facility] No Panel InformationOrdered By: [facility] 03-19-2023 Hepatitis A IgM Antibody Negative Negative [facility] Hepatitis B Core IgM Antibody Negative Negative [facility] Comment on above: Performed at: [facility] [address] [id number] Director: Zechariah Paula PhD, Phone: [phone] Hepatitis B Core Total Antibody Negative Negative [facility] Hepatitis B DNA Test Information See comment . [facility] Comment on above: The reportable range for this assay is 10 IU/mL to 1billion IU/mL.Performed at: [address] [id number] Director: Aston Omalley MD, Phone: [phone] Hepatitis C Interpretation See comment . [facility] Comment on above: Not infected with HC V unless early or acute infection issuspected (which may be delayed in an immunocompromisedindividual), or other evidence exists to indicate HCVinfection. Protein [Mass/volume] in Ser um or PlasmaOrdered By: Wilver Felton on 03-19-2023 Protein [Mass/Vol] 7.1 g/dL 6.4-8.9 [facility] Serum hepatitis B virus surf daniel antibody detectionOrdered By: ariana Felton on 03-19-2023 HBV surface Ab Ql (S) Reactive . [facility] Comment on above: Non Reactive: Incons istent with immunity, less than 10 mIU/mL Reactive: Consistent with immunity, greater than 9.9 mIU/mL Serum or plasma albumin/glob ulin mass ratioOrdered By: ariana Felton on 03-19-2023 Albumin/Globulin [Mass ratio] 1.5 {ratio} [facility] Serum or plasma hepatitis B virus DNA measurement (units/volume) (viral load) by probOrdered By: ariana Felton on 03-19-2023 HBV DNA GITA+probe Qn Not detected . [facility] Serum or plasma hepatitis B virus DNA viral load by probe and target amplification meOrdered By: ariana Felton on 03-19-2023 HBV DNA GITA+probe [Log units/Vol] See comment . [facility] Comment on above: Result Units: log10 IU/mLUnable to calculate result since non-numeric resultobtained for component test. Serum or plasma non-glucuron idated bilirubin measurement (mass/volume)Ordered By: Wilver Felton on 03-19-2023 Bilirubin.indirect [Mass/Vol] 0.7 mg/dL [facility] Outside Recordson 03-03-2023 Outside Records [id number]#1.00[facility] 02-19-2023 Outside Records [id number]#1.00O TGTIFF [facility] Coding Summaryon 02-16-2023 Coding Summary HTMLBase 64 OazkdevjTZz2rQe+PGhlYWQ+ YF8SYNCxT48gcTUxuQ1wZ6TI TElOSywgQVBQTElOSyIgbmFt DG5pvKMyXSRi IC8+SY5aAIQiXajlcKRys3K2 eZJ6M44ihj4gSQmxzCQ2ENGc TtCggoygy1pvrPy7XOszUjpe OyBt SRYjeV79IUE4jV06Eb22fBJb rTIkv7kwwKp1FcHySXTnTVN3 fFzbALvrs1TuCWXbF86sgHPp c2U6 YKHwaKsyfATpDtFcjRS4pV7l RHyobboqr3lncerjCww2nz69 iOIel1I3sOS4Z8NwiaP2TXOv bGQg BkxihDHTaT9lnezqd2kgmttt YdGsZQAnVJw2ULg3QXIjiVvs KjFdPP24SYI5PDGginKtM2Dx LWFs bDflMdP5b3Q7Ko1DI5XXVirl W5IDVELFRXaztPG+DG91ac96 F7HtWcahMoj8PPOjGQQ0tXE8 aD0n KVTeODopc7L8cBY9I9PtkbWe nr3mt2qpQSNlEJhlO03jsXSd x9Z2RZZwyUI3AIXrkVthDdZu aG93 Oyc+EYAjtLtlq2HiIwirn4hw n0vxdRq0KipgDGWssmZhhAgl PXL2h6LhXp1xYGMrmQA4eKU1 aD0i FqZnPiZ6WUczV014BrCrbOYo ZlivG91mW9KgnFQ+PHRyPjx0 CHRtcTjyNU1dN0DrWUVjsria bGVm bXdnCJ4gBOAfqpzsIBSatT3h ZREpW5w0IuWjQeT9TAykV2Wz ORCmclhmCn70vL8rUkWiSyB3 MGlu D3KvxqE9YZWoiQBwHZnxRSW8 T35iy7O0OFVqYQVdCTO4oXK2 dL9ktTufghhydGRzpRcsyeNk dGlj XHosGDrtM981PAUpyPpnRnVk ZGluZyBEYXRlOiAgMTAvMDkv MjAyMzwvdGQ+JRCfLUS2jFsj PSAn sVYoECfhDj2pwFacmNrfCK2l RAIzsxyaGAMomB4tVZMksDZw iPpiSI1gFCDpokzon243HeDz MHB0 XKJavQHpE4YgcJ3iTuYyJUJy VVKdF9KawVGrWXymG704ZClm CiC7IDRsshSyN4OtWWMecJfk OiB0 l6I7Zn4Ky3JcslyoV5OneAXm FsAdKsvfZUz1U3JoHnsdhAL+ VJ13WTXpRF80IBl6AKN0zSpq PSdi GWQaZ9MeuA6eCwVxHYDhUCRs Oyc+PHRhYmxlIHdpZHRoPScx XRWjReLeaXmjBD7pOk3jQOTj LWNv bVcosCKlZzAeo5rpNNHbHOar MJ8tuRjtO7EstUH8OBXkw9k4 Gp32O30xN2GqjQG+PGNvbCB3 aWR0 vQ9iYpRpAjW2NMiuZ259FvXk eBWaGyofx9xyr2rsdUc5YhA2 UXBrxtCvzChcQKV7z9ObUf53 Y29s IHdpZHRoPSIxNSUiIHZhbGln ev0mvZ1lDt0+TITxuPK6wCA5 gD3mLcVtSkQ9RAbpK736LoYq cCIv Zlxtt4vcs9wizDn2VyKqNOMz ylOtnIvxAHX2y8MkVm06V5Zq uHyuy4HvHbk5mm85pGYfp4O5 bGU9 A6FnFRTocrzdiFApkMhyTH2a NTSmkyfaMOHwsF4qUXKgK1r2 KwJdTyC5VOdjC9SgcbB3SKUa bGQg CNWzpVIKpU1sjccxr3buuxvv QkQsZSPfVFq4DUo9SMSdqOwq WrJrDPD0VeT1KLI4jUTkpJ8o bGln owfwbF5uYjh+OHD1kJAybTOQ GF2hEfzdoYI+VRUkIFT0iFfc FUqgRSBqbF9mJHCuN0n4KyVi LjA1 IToiP0XhnrF5TXThdEXjFQYh gEZDoR4apcszn7jboozqQeSu QQVcZJf5COm8ILYogGgaGxBz ZWZ0 HeE9DUG5uSXxaG0yiAcvypcz kR3sWyp+IhmsmAklXBZ8EDj1 U4MuAss9EWVxeEclBV0kaLPp ZGlu Qz6ykBjmkUgsCO5jJINmjgvg d589MkUvx3oaIFFkcIZuJIbt ZQZ5T62rr6T6PPXiRQBgOJC2 dGV4 aF8hcTpcbeplqHNmsGkhgyOq aJavYFhnSIrtS956FCFxhBzw YlBgZPy3O6GsZte8WTUaqFvm ZT0n zJBwKPggWw7pxVbevTkaIM7g OWOvpndzp635VcRme2ghLSSy qKFhGCabUYM6C45kh0X2JEFe MDAw RQB5tSL1vK6bqGwkjgwypIMr uYssenEqpBnqYFrlXEyyT455 VYRqiAcmOtYajRx1W7VgOeh2 ZCBz aNunES7ejECrDMrzZh9umDlp sJzeLZ7bKVCrfjlkq465ErMs z6nnJFRglNEgDKxjAOX4T73w b3I6 IFCuHJMwDFW1bUO8oO3teVsh bjogbGVmdDsgdmVydGljYWwt QNkpJ487ACGfzFhtIhAqkLze bnQg EKcrWUs3V6UbQgyxkSJ+PC90 WYFqQP01mABvbZZar1zquPk8 JdWfCPQjTMJ4yLzmGWdiq7Uj ZXIt H76ykQEsv6N0AEUpfDgcnHUq KhWwtOR6gO7eQXkfsrdet8xm onczBhnto6dxjz13pT31O01w IHdp VASfSNUjCFMmWOTtiQtvwf2x rW1nCh6+HXSmnWL9tWM5oB7j AJGaZdG8VMstD938PcDrkTNf Pjxj y6htz2vzeIj3NdB2UGPwlnWo aVasVIX9x4BmIe48R50eYJiw WHHbVVMiLTKfVPPcjLhejy9b dG9w Ii8+NNIbxLN9bAG4oL6iHfWf TxN9UKwoP989GpXozRFvKpbu U26oD1HepLX+FCRuPrc8TPHt dHls KE1udZFhKNjuJk8kABH3PsMs XzSjTMwxP3OpFHOokzdgxddc bXH9DUMxHQLobI42Lx7fvHhh MTBw fWKCxV0ynemri0djvjpcJgZk KYKsUVo8UVx4RPVtdAzfYbDp bjog sK8lY3EgZFProlpiIq71fQ5q SeCcMrO3QQfxMnx+QkFVRVIs IEdBVkVOIEFORFJFVzwvdGQ+ PHRk JQX1hZudTUnxSZWxnK9zWVHs J3o4RgVcMaQ4OFqyZ4ZnIXRp zwftMw70iK1wGlXtTkV0QZbl O2Zv fzN2ZMXdeQFcKLvyUKG5Y61s r9V1QGJpARKbFYS2tHO8eI8d bGlnbjogbGVmdDsgdmVydGlj YWwt MFnaA226CMQwoWgoSvHlFuPy BxAgREY0M6ZpAgt0OGTctLfm TI0acSIlHNvpGm1dnZmeyUvq MC4w SAOeursdQSJcwM2qFAIveMGk mEueIA8jGZApunlkl611IcVq MIU9QONzkKYzL9HyqQ6oKxVn MDAw SQUgK1HcnHKoDYasJ710YOld CgO9ONLcycJnB2XtODOokIgi QfD5y2D6Br9eUCAQAKTucuta dGQ+ MOKvHTX3uQhrSMnxOGTwyA9r HWAwP5d0ItDgUdE4HIijE8Mx CDPpupjeNn78yK3gTiPsHvM0 MGlu A7HmrtS4QOGuuYYcLFwaZML3 T26xg9Q3RJLcQNSwGSD6zZH0 jD2wwNtnrzaouXWnhVcrqfEe dGlj OZypGYshA946EGOgcKbfPe2O TOQ8G5MbMer2HXJpsHccIR4y zTNyDUhyCw4maVhggHitSO8o NTBp ebcvBNQbkG0hMWLdiWQekDzw IR4oDLMaaoudc844QiWeHJP1 DVCflWWtN1WmvA0yAyGwXYUv MDAw L6IsrNDhCKqbZ846WAbcCiM9 COIgkcWzO3HsNTUycNxaEcU5 l3U1Je1IBZclvOH+YQ11id37 L3Rh GopqIwz8SLOdCJI0xYY5iH8l ISXgTOvyw5I0fKP7P8WdpnRu sl1bb8ctRFUtRDvtS14lwTBs c2U7 GRCedMX8MZIteTjkKtZtwB63 Oyc+JFTiuLvah1NyXfxnj2za m2lmpRk0MsKcUPRksgJuoOde PSJ0 n5YzBe75Q22eEHysUXKpSSQu UVNlXYBcrDedib7cmT5kGv4+ TXJtjGX5zRA9kI4bLkBsSqP7 YWxp N882VnHfnDDuDhysm7vsl8js dTz6HmDzJFApbaTarXzvXOM8 w7CaQp19C8ZveZhkt7RnArc6 cj48 sNCyu4I0lQJ8A8VkWDJvdiya rRPyuQfoYZ9xSAJyofhqAVUu lN5xCJVvA0h3HpDzJlL2HJyf O2Zv vvV2FMWebVWfITMxhMERfG0l rhkgx7xpxauhLeWnQWOhQAb5 CDg5WEMgzFxnPmNeKJW1BlG8 ZXJ0 wIGmpE5yeSzvvimdzR2lBsq+ CBn9f0odxKQmQI9bdSH1HY50 PY10lUNkh7F8nNY7J4RyLFPo bmct mdvaoNE6OERgQXDdgD01Im6a yOctOt3qRLXjSAQ4EBGjbDSa C4CqwA4gAoYnYJWmBCYdJ9Rn eHQt VTraF986YUauRdN4ELXfehQt M3XfDFUswWdcBjC5c1M5Hv0W YU62GM67RK27lVKmk2E4xLP0 J3Bh PTUffvdspurxtFS1TGQcPKHn jW52Wu3foJumJh7kTWQtOSV3 VSJlkMKlV4ImcY7mRsSgRNXg MDAw X5EwyGOiMEddC686UQxuOvL9 ZQWkhpPrH6BaGGSsuQfcVfA3 z9P6Zp9ZUq07QX78RW22iZHv c3R5 vSD8J2XdVOMbmsyicmgihGM6 IDVrOCBarS16Cd1hmCyfMy6p CRRqXCS4TFBlkAMpS7WkpX4q OiAj FVThJWLeU8NgbZMaSXfcJ666 NAgbUnU9YPZtduBpA7XaXIIh zWstYqX1k0Z1Pu3LTPptdli4 L3Rk PjwvdHI+YL71GRVjXR42sYYb qSWlk7cflGw2LwEtWYDkYGC7 cDxnAHslt1EvOFTbV52avLMc c2U6 IGN (more content not included)... Normal [facility] Reminder Messageson 02-17-20 Reminder Messages - From: BALJIT PISANO DO To: [facility] Clinical [facility] ([facility] Sent: 02/12/2023 15:32:57 EDT ! Show up: [...] % (14 - 48) 02/12/2023 13:38 Auto [place] % 12 % (1 - 12) 02/12/2023 13:38 Auto Eos % 2.0 % (0.9 - 4.0) 02/12/2023 13:38 Auto Baso % 0.8 % (0.2 - 2.0) 02/12/2023 13:38 Neut Abs# 3.4 x103/mcL (1.5 - 9.2) 02/12/2023 13:38 Lymph Abs# 1.7 x103/mcL (1.3 - 2.9) 02/12/2023 13:38 [place] Abs# 0.7 x103/mcL (0.0 - 0.8) 02/12/2023 13:38 Eos Abs# 0.1 x103/mcL (0.0 - 0.4) 02/12/2023 13:38 Baso Abs# 0.0 x103/mcL (0.0 - 0.2) attempted to contact patient, unable to LM, multiple rings, no VM Patient returned tamra and was notified of results. Normal [facility] .Auto Diff 1on 02-12-2023 Auto [place] % 12 % Normal 1-12 [facility] Comment on above: Performed By: #### 1 [id number] ####[facility] (DEFAULT)[address] [place] [address] Baso Abs# 0.0 x10 Normal 0.0-0.2 [facility] Comment on above: Performed By: #### 1 [id number], [id number], [id number] ####[facility] (DEFAULT)[address] [place] [address] 58743 Basophils/100 WBC (Bld) 0.8 % Normal 0.2-2.0 [facility] Comment on above: Performed By: #### 1 [id number], [id number], [id number] ####[facility] (DEFAULT)[address] [place] [address] 11917 Eos Abs# 0.1 x10 Normal 0.0-0.4 [facility] Comment on above: Performed By: #### 1 [id number], [id number], [id number] ####[facility] (DEFAULT)[address] [place] [address] 74145 Eosinophils/100 WBC (Bld) 2.0 % Normal 0.9-4.0 [facility] Comment on above: Performed By: #### 1 [id number], [id number], [id number] ####[facility] (DEFAULT)[address] [place] [address] 54347 Lymph Abs# 1.7 x10 Normal 1.3-2.9 [facility] Comment on above: Performed By: #### 1 [id number], [id number], [id number] ####[facility] (DEFAULT)[address] [place] [address] 83581 Lymphocytes/100 WBC (Bld) 28 % Normal 14-48 [facility] Comment on above: Performed By: #### 1 [id number], [id number], [id number] ####[facility] (DEFAULT)[address] [place] [address] 25200 [place] Abs# 0.7 x10 Normal 0.0-0.8 [facility] Comment on above: Performed By: #### 1 [id number], [id number], [id number] ####[facility] (DEFAULT)[address] [place] [address] 24864 Neut Abs# 3.4 x10 Normal 1.5-9.2 [facility] Comment on above: Performed By: #### 1 [id number], [id number], [id number] ####[facility] (DEFAULT)[address] [place] [address] Neutrophils/100 WBC (Bld) 57 % Normal 44-88 [facility] Comment on above: Performed By: #### 1 [id number], [id number], [id number] ####[facility] (DEFAULT)[address] [place] [address] CBC w/ Auto Diffon Erythrocyte distribution width (RBC) [Ratio] 12.9 % Normal 11.5-15.0 [facility] Comment on above: Performed By: #### 1 [id number], [id number], [id number] #### [facility] (DEFAULT) [address] [place] [address] Hematocrit (Bld) [Volume fraction] 42.2 % Normal 34.8-51.9 [facility] Comment on above: Performed By: #### 1 [id number], [id number], [id number] #### [facility] (DEFAULT) [address] [place] [address] Hemoglobin (Bld) [Mass/Vol] 14.7 g/dL Normal 11.8-17.7 [facility] Comment on above: Performed By: #### 1 [id number], [id number], [id number] #### [facility] (DEFAULT) [address] [place] [address] Man Diff? Auto Invalid Interpretation Code [facility] Comment on above: Performed By: #### 1 [id number], [id number], [id number] #### [facility] (DEFAULT) [address] [place] [address] MCH (RBC) [Entitic mass] 30 pg Normal 24-34 [facility] Comment on above: Performed By: #### 1 [id number], [id number], [id number] #### [facility] (DEFAULT) [address] [place] [address] MCHC (RBC) [Mass/Vol] 35 g/dL Normal 26-37 [facility] Comment on above: Performed By: #### 1 [id number], [id number], [id number] #### [facility] (DEFAULT) [address] [place] [address] 87817 MCV (RBC) [Entitic vol] 86 fL Normal 81-100 [facility] Comment on above: Performed By: #### 1 [id number], [id number], [id number] #### [facility] (DEFAULT) [address] [place] [address] 98593 Platelet 254 x10 Normal 138-427 [facility] Comment on above: Performed By: #### 1 [id number], [id number], [id number] #### [facility] (DEFAULT) [address] [place] [address] 93445 Platelet mean volume (Bld) [Entitic vol] 8.6 fL Normal 6.3-10.2 [facility] Comment on above: Performed By: #### 1 [id number], [id number], [id number] #### [facility] (DEFAULT) [address] [place] [address] 11626 RBC 4.89 x10 Normal 3.70-5.30 [facility] Comment on above: Performed By: #### 1 [id number], [id number], [id number] #### [facility] (DEFAULT) [address] [place] [address] 18507 WBC 5.9 x10 Normal 3.5-10.5 [facility] Comment on above: Performed By: #### 1 [id number], [id number], [id number] #### [facility] (DEFAULT) [address] [place] [address] 42237 Liver Enzymeson 02-12-2023 Alk Phos 56 IU/L Normal 32-91 [facility] Comment on above: Performed By: #### 1 [id number], [id number], [id number] ####[facility] (DEFAULT)[address] [place] [address] 52984 ALT [Catalytic activity/Vol] 53.0 U/L High 8.0-36.0 [facility] Comment on above: Performed By: #### 1 [id number], [id number], [id number] ####[facility] (DEFAULT)[address] [place] [address] 30503 AST [Catalytic activity/Vol] 35 U/L Normal 13-38 [facility] Comment on above: Performed By: #### 1 [id number], [id number], [id number] ####[facility] (DEFAULT)[address] [place] [address] Gamma glutamyl transferase [Catalytic activity/Vol] 31.0 U/L High 7.0-26.0 [facility] Comment on above: Performed By: #### 1 [id number], [id number], [id number] ####[facility] (DEFAULT)[address] [place] [address] Coding Summaryon 01-16-2023 Coding Summary HTMLBase 64 TkeaxbyfBYk8zGb+PGhlYWQ+ EL4NJLKaI37uhQKpbS7nD5CD TElOSywgQVBQTElOSyIgbmFt NK4aeZVmLETe IC8+UK5uTJZnXvoeyOWrr7Z9 nJK2U73qea9cRDmavPV0NYRr ZkUsdornl7qvcCl3JEvkKdmt OyBt FBDwsY60INY8tD89Ap67hIOq wJOqs5lauZo7AqPyFMSgEBS8 bLepICgtc4CpCOWnZ09szKTy c2U6 JPNgnYnsuZCfTaNioZK7rE4j LXxrkriuy4yhdomoUon0ic47 mZBia9N3fKX5W8PrssY1AVJk bGQg ZlmhwKVBqG3lrfbvj7efujlq HcYhEZOfMLe4UFu4KMSokCvc VmYcGY24YWH2HFOcmpCdV4Dk LWFs qVldUhJ4g0O2Ek4BQ5WGFdrp M6WJYDGKTKrccLN+PQ00xj53 K1FlBwvvZck5MTPwDSX6sMG7 aD0n QLTxSJyyq2U2tKB2K0SdzdCb ou7sl9wyQQKnBVmoY25kvTGu j5G1UZMwyLY9YUSizIizGzCz aG93 Oyc+RPUiyLway8RhIkppd7kz v1cjbAf9CyprTQYelcJnzYyr DCT6d3LdZo8qINLvmLK9nSA0 aD0i MvXeJmT4AXczI044NaNhzNWy QpdvS41eI0RsiDX+PHRyPjx0 XIIqfFxnHJ6iE6TrHEQtzoyo bGVm eWucAJ8mBWElqqsbDISoeD4q NVCuA1u7RlCfSuR8VMinR9Ob XRShwmsyRf53yE7qFaDuEqW5 MGlu R9ZihvF6BKMbaFIjRQngYVG4 G12nk3G5KYYfYWGfNND4wBW5 uJ8xqPnidvuwdXZqqUwcpnWe dGlj QFhdJRwvP278PUAxdEkdTlXa ZGluZyBEYXRlOiAgMDkvMDgv MjAyMzwvdGQ+UEPcDQM4gHot PSAn jWMrKIbcKh2cwIerkHpyRH6p FUVywgkvQYRtvU0lWBYcdSXl tKmgYP2eAKMymieih793FpTg MHB0 UAYpsZVcC7HmvF0wBaJzKXGf WOIwV9KznIDmMGakA679PZvn MlP8QHPygxVfJ6VgHQHubWph OiB0 r5Z7Me5Ej2MkjhqsD0DkxJKt EwChCzzoAPk7H8YeBfdytMQ+ EF19LFXmOL04QDv4BEX7pUpi PSdi HCGlC9KvmP0mVhQxCPKdUWMu Oyc+PHRhYmxlIHdpZHRoPScx QOEcGvYfxPfkMC0mMy8tFCIh LWNv xWidzDHuKhFkt4wvLIPfIIyk RC6dlXnsL1GvhBT8AGTcf1k8 Gj85Y72dQ4AtgKX+PGNvbCB3 aWR0 wD2gZtKlGuU2UQzhP764CyTa pHLfAljwr7nbx3vajYa5VfN0 UTHheaSwdZwzYJR1v4EmCz44 Y29s IHdpZHRoPSIxNSUiIHZhbGln rc3gjC7sJg1+TAOhcAB2hUF2 xA1nBsOvFrS3IZxjI767MiMx cCIv Eplmm7tzp7ywpBy9MeXpCQXz ikJkaHbaGNF1b2JjOo63S0Lq yNdap4AkMrs1pu25hMLut1K4 bGU9 F9FsZVVupmotaDZqtLaaQR5y QGSsniszAEJojM3lVQEsK8e4 GzBiBnW4BCrrK1GpthQ5XKNt bGQg ALRbaUOFiZ6iwusnw4akjjch PhMmPPOoDKn6QHr5LHNnqRop DqGqECJ0SuT5REW0aMYwcN5r bGln oewozI6tDkl+TDZ5kUJgvZMJ IN3eJjlgiFO+REYjQCQ4cNqc IMoiCYWrwF3nYUBgL5e1XjGc LjA1 VYxzL7XochF1XTUniHGgVNOp iTFXlC8tqxrkv1fsompjCqSg DXUzJBf6VZg5UURluBapXtLa ZWZ0 VbD4YQY4kNUwrF9ulHnrjehg cE7kBkq+QnvhgXyhAVC2YPe8 I9GuUie7WMRmiTexJB4rzOXv ZGlu En7nnWoohHrvJY6vVTPmxgvb u083EyUnz4btGESsaNXjAHuo LCW1P69cx8T3SGKaIQUqPIN5 dGV4 aM0qgCobpmkdxSKcoIqqkhUg eBbhKTrkSCnkP504BZZwdYwp QqOiBXy5N2VfQfy8PKBplWjg ZT0n mDYqTOwpFl5ziVrzrGuvYW9e ENGfczful483VgLfc9dtJXVj cDBpZRkbNEH3B10rf8N5AZKa MDAw NWY6lIL1hD6vhRclnyqmbAOb wPvaqrMnmHguHNldMNcdH481 TKRdwUatYaOxtNe9N1AsSfs2 ZCBz bQtfII6qjTOcZSauUk8luWfm oIjbBZ6hRHVqdavia291KbJg m1ajGWIttKVwUYmaGLC3M75g b3I6 TVBnBPAtWRY4xOU4jA9geMfw bjogbGVmdDsgdmVydGljYWwt CKweX786YQKjcQmhVtMqtLdo bnQg PZnfTXc6Z6MgUgmjtSW+PC90 DDKgWI21iVXqxHUll0lkaRx1 JxMwFHEoNQK9qGlkUIszj5Ej ZXIt W21tjJPid1Z6XOAeyMasiOBt BaZspLU1oV8fJSjcyvpmv5si yynjPhcmm0hbsc60mE15D43u IHdp FWMxKQQxVEDyXMHsfIemnl3m eL7wNa8+AYQsxSJ7sAV7dR2i QZDeKgJ3IBemX987AnQqrIZm Pjxj o3jws0iweDc6BlZ3OOPaxmPw bIrhUNG6d5RmJe60N26aVOxi SQMmWFAyNZCnUTUwqVkski3j dG9w Ii8+UPTfbBX0fHH7iL1oNzKs JoD1YBxnR745YbIjmLXgEvrd N84cB7UztVV+GYBcRql6AXBk dHls SO2gzQAtLAhuJo3oJRF6HcYe CcIoRSgrA2OfNQHjcmzfzafv cIA0MNPrOGJuiM57Eb3yoFbs MTBw oLULkO2rekuxh2phrwwgYjPo CPKcIGj9VIm8VDGhaQywUaSy TYO2OoI7ABH0iSVocD5jhIsc bjog pZ4yL2WoFRVlvojgGt40lP6c VhFaOyZ1DNejJfl+QkFVRVIs IEdBVkVOIEFORFJFVzwvdGQ+ PHRk ASJ5kGoaOFtcIRRsuX4mOPYa Z0b3RoHiXdV9TTwtK7OeSUJu mgpiPr09tP8yWqVyQdA1VHht O2Zv bvD6UVZfrFVsBUqbFGL1I26h u9X2UIIcAGVrWWR6eEE1gG3s bGlnbjogbGVmdDsgdmVydGlj YWwt XLefK061SICvnZirAjYvSlKv SuIzWTX6P8TjPyp6VPBioLca XD4zpGHpMZatKb6bqUxjjAwu MC4w XHZtzngaRXRvdB7dMTLhbXIl iWsaSU7vMFXkaklfo029LzLf DKK0DPVzqUIyA9ZwsD3uFdMc MDAw LEDxO6FxhYAbQJqkJ055UNnh HgH0IUPnkrNbJ3UqGBXfnOll TbE6m5P1Za1dZGPGKUFxskio dGQ+ FJLoJJH2xSxsVGigNJMpaZ3j PLEtV3x5ZcGgCvJ5RRojQ6Rj UJZjaubsCc79tF2pSlUwXrA7 MGlu N0XgmaC0KWRzdVCtEZhrXOZ5 M48at6L5KTWzEACqWTD6eGB5 fA4ytGhxhiewlVMhiBarhvMd dGlj QQqtRUrkZ248DSRijBzjAr8L PYW4A2DmIon6WQAxfXcyUO0a kGQnLFzwRi8taFtrsZnrPM8s NTBp vuobCZLccS9eSXRkpAZrnOhl IT4nJHCaillwg218DoFtQYS4 RXZsnAJxO6AjaH1dOmBxJZQx MDAw I0VesRKsIJudH285DWdaTpI7 OIBidaDaY8XfFYKcuBitJhX6 t3U4Lo3EYJsloUI+VJ25pq97 L3Rh OswwVbk6GSKaYAX2iQH6lT4x SJXjYIuay4S0uMF8U0QkzrPj nm5uq9esYKIvUKfdA59hwALx c2U7 ESQxfUB0LQDdaQmcWfNevP25 Oyc+IGBarCvdp5KiMonhi7cl k5grnMx1GeGnDINuleMbfEgc PSJ0 w7EkTh77S99qUTsoOYYuEIWb GOFcWKTrxCpeas1gcW1oMx0+ WHByjRV4aSE5mX5pXuFeGxB0 YWxp L955ShPnaOZwZteat5cpc3hc cIr4FrIxLQQwkaEqxIulKNM6 j5QhKv83S0GjpTphr7JdDxq6 cj48 eTFju5L2hYQ2S5JsMGSqieqh mUMpsEkqEI5jROAearvgDMYo bN0bBWDzS5y3DvUvWxZ7UIch O2Zv vaV7LFJawQQgIMWtuJIIpO3y cloxa9nhkivhDkXnCYAjURz5 MXs0VSGlaCwqJqYoZYA6UoR8 ZXJ0 vLXeqZ5qzXmngluhxH1aJvk+ STz9q6oahNPqSB0zqSF1CH25 UL64fGAkr0J6yAD4W6EkXMDw bmct pnwohMM9ACQpGHThaD56Fu9p tSkjAv9iBCJoFTG5MMFqpZHe F8UpmQ7bHyUcUSOhFMNyI4Fq eHQt PQqzP418WFchReH8BWRawxCt Q5ThLJQbrPbvDzC1b9V5Kk3W KZ89GF08AO76nSIkt5B6qLT8 J3Bh TOZlutzgczqvbBT1KHXzEHOa xS28Cl1hcDyuRx4mVQJxXTQ7 VVYppOOoF7WyaG9oMxYdLRDq MDAw I4ZrdHEbYZpoA881GKvzZoJ6 RVDikqRoY0GoYMChsVbuAlI1 c0U3Wh3DKg27MT51FO02wQVi c3R5 rVP2K2PzIJLhbynzaextjAW7 WUOkZSHlqJ28Do6tvSlnCw0h QOAjUWV4YMEjfKZxJ7CyoP0w OiAj TTCmUTPsX0SrkAHbUWdiE507 SDqoZyN0RXNziwBeB0KfATMr yVqjWyS3b1T9Jg5BYGytqnj7 L3Rk PjwvdHI+RU03MOCtKA88lPMh cKDfx0grqEo2PxNkMZRtANK6 hZyiOTpif3YeTJFoY97msEOv c2U6 IGN (more content not included)... [facility] Outside Recordson 01-15-2023 Outside Records [id number] [facility] Reminder Messageson 01-15-20 Reminder Messages - From: BALJIT PISANO DO To: [facility] Clinical Pool ([facility]); Sent: 01/13/2023 07:37:35 EDT ! Show up: [...] - 26.0) Notified patient of results Normal [facility] Reminder Messages - From: BALJIT PISANO DO To: [facility] [place] Sent: 01/13/2023 07:34:28 EDT ! Show up: 01/13/2023 07:34:28 EDT Subject: Results Follow Up Actions: Call the patient with result(s) Due Date/Time: 01/14/2023 07:34:00 EDT Reminder Comments: swollen fatty liver consistenat with hepatitis Results: Date Result Type Result Name 01/09/2023 16:08 Radiology US Gallbladder Notified patient of results Normal [facility] Liver Enzymeson 01-09-2023 Alk Phos 57 IU/L Normal 32-91 [facility] Comment on above: Performed By: #### 1 [id number] ####[facility] (DEFAULT)[address] [place] [address] 52971 ALT [Catalytic activity/Vol] 54.0 U/L High 8.0-36.0 [facility] Comment on above: Performed By: #### 1 [id number] ####[facility] (DEFAULT)[address] [place] [address] 77276 AST [Catalytic activity/Vol] 35 U/L Normal 13-38 [facility] Comment on above: Performed By: #### 1 [id number] ####[facility] (DEFAULT)[address] [place] [address] 33869 Gamma glutamyl transferase [Catalytic activity/Vol] 30.0 U/L High 7.0-26.0 [facility] Comment on above: Performed By: #### 1 [id number] ####[facility] (DEFAULT)[address] [place] [address] 41152 US Gallbladderon 01-09-2023 US Gallbladder Clinical History: [...] Rafita Farris MD 01/09/23 4:08 pm Technologist: [facility] Coding Summaryon 01-07-2023 Coding Summary HTMLBase 64 LiafkxjgQVn1fCd+PGhlYWQ+ AW1XDOPvB07inXErdW1cP7YU TElOSywgQVBQTElOSyIgbmFt MQ5zoPFuACNg IC8+FD1nJPLoAysokZOqq2T1 tSH3G94ywr5eWRclxBN3PWNj YfPuuyptg2vygAx9RDrdCihb OyBt VWGxlQ41GKS9dZ08Gs20yRDn dZTpx4iywTr9OhLfWXAoLPZ0 sWilFTznk3DeJHNbT00olLHs c2U6 WFIxuSwkhFRhBsXjqHT4nY0c QGffzgljj5guxfkhUbp0bn37 uDLgk4L1tKH2Q1NwymO5JWTf bGQg JxtjqUGDpB4lfynhq8ekpzfz JnIpFJNeYUm9QGo5UCSwnZqt QvNkRO98CMW5BXCdokNcW8Zs LWFs lQxzWjX3m6I5Qz0RB8ZKBhem Y6KSICEXCXkmpSN+DW91tb57 S1AmFpjuAyk7DSOnXGH5vWU6 aD0n SWYhTWkjt5C1oDN1M7NwmyZk bx2lr7rcKKWkNHvrY48ekTHc i2T4XGMufKT8ETDuiGnyReYx aG93 Oyc+WIAocAunl9TwPfkib6ad w7slhQh0KgmfWAXgxoNnuKkj NKO5k5LmJl1oYIKspWZ1kEC4 aD0i RjBaYvD2GEdsG416YgFpcIVx KdysA90uZ5TcaWC+PHRyPjx0 NGRxqLkcYO6kJ3DzQRAbolod bGVm dTujZP8gSXHksmmiERIzjK9v JVAaG5v2RsZfUaF1XGqyC6Zl TFIuthpcFp16tR4bUxOvLkM1 MGlu F7DqqjG3MFYfxQBkSDjkJLM0 U97yl1Q7AHMmMNFoJNG5vSQ9 fL0qfIxbxfinnDOpkHvffyVc dGlj OXuiOObpA906EUNydZvxMdQu ZGluZyBEYXRlOiAgMDgvMzAv MjAyMzwvdGQ+QLRfXMO4jVyg PSAn mGCwIWmtEg9vcEawoFvqFV1e DTSszyryZZWioV8jDFMvpLRt vRlgNX9pMZWkfbkrd349ZoPf MHB0 ANFlvPHcD8TcyS3lFjDqRMVn MWLvH2YshFEqPTgcI111NSiy UxN4UJNaahSfA9HeANRqmKdp OiB0 x3W1Ew8Wk2FkvjxxG1LkaUNv XcHgQrydAKu5G4FtEhjodCX+ TI91QKYpAV55PVq2RSN7bQak PSdi QNDlR2LahT5oOwPsRPBtOFJq Oyc+PHRhYmxlIHdpZHRoPScx XGCzEsDmlWuaWX4zPt4iXEXi LWNv sYhzlGBuWnCvm6xnJGYjPTcz IQ1yfIhvR1ZdiBG3EMAri5k3 Ud49N38oT2VabCI+PGNvbCB3 aWR0 fG4qRfJlRrJ9FTlbM476LzPq iRTmLijyd8oql5xxuKq7IkL2 NWZzdyBybLvjKYT2y8MtJq95 Y29s IHdpZHRoPSIxNSUiIHZhbGln yc8ysH2zCa5+JBMnwCV6yUZ6 hU9vRuZmJjL4EWhvR081SzEm cCIv Areoa4ths4fveIq2QtQsQGGh maPwdEwmJJQ6j3RfTu78H3Hy eWdrr0EcPbx5bh17mTAqx4G6 bGU9 C6VuVTMpfyylpLPexVrgTY3u VLZfzdvsKOMthM6iCUDuI1g4 UxYxYuE9ZUjyV0YvlfE3VACx bGQg FXCwrBQOkM1jiglrg7knzivg EqFpYORpMIz1HIv2IOEznSvs ZmQiCGU2UsJ6YRQ1hWRgeF9g bGln hisywQ2vLfo+TDW1yKLhuMYG WW6zAohvtXY+QPGgIKL8vXcs ZHjaGIPqlZ0tSWBxN7j6DyGw LjA1 IAywY3GvseY9KVYxbSVbYLRa rPHEaG1ddyhst7muhdbxKkOk ZZYxXFn7EPf3DHGryHoiMqWo ZWZ0 VmW7IIB9jCUshA0wrJdqrhat fP0sWdh+EnyybDexHYN3CMb0 I4OmYxs9PYYvqFlmVC3clEKd ZGlu Ii5foRqvhTkxZZ2sZWOxvavj h026LzKsp1jeYQKdbIJvXKgk REM4G29pl0X5XGLlGDHmQOD0 dGV4 pD1neFidkbnqlMPcyYmgbdLf gOogBJzbVSnkB355HBPagLwn AdRzBAx0A5ZeXcy2PYZvmFzu ZT0n iAMzXZnbMy6hgMuhfPcoSG5y LZCfyhsje162JeCwp4chWHYr oWAlHWoaFKC7R66nv6K0VMXw MDAw PIL6jNB4oM3exGzcdkowvNMo kXroxzSqgHdrBIvgHOsdB937 CGHabMczTiDnlCq3E6MhOty1 ZCBz zQsoXW9gbMNzHQxcEi1nwMfg tOzyVB7bIIItxuhsp608ObYp y7ofUTPgrIJeATgyVWV5A83r b3I6 EECrUDZdCWQ6fEO4wG7wwPci bjogbGVmdDsgdmVydGljYWwt DCjfL715IFBbuUvaZmBjkRav bnQg JTlgTSs2X5ZrDqyssWD+PC90 PSQyCL75fCHnsOKqp0bpdYj1 SzAzVHQpDEZ1nDnjFNlzl2Gt ZXIt G43ciQLsv8J1BFBfxSdzsSBl GhZduQG6kR7iOLrutdjhp5sx nrueRmlji5scbs94iY68K89i IHdp SCAkYYXqDFMkELLaqZmwxn2p uJ8qNv4+WGPqbJV4fYA0uG9i MBYrTdX5CRzvB376CwSmaEOx Pjxj z0nsu5sknDx7RtX0EPZbhxGv fUnqJCF7k7TdAr38P00nOPhw TJBdOVMeFYTzCJSxzQudsb4t dG9w Ii8+WEYszQJ5xHN8gS0mUcAb GnR4PMniA959UpVwmQKlCclm J81gL7PcsKA+MDXnIlu5GLBu dHls EQ1rzESoQPgyRb1bANF5PaOl LrIfFFnuZ5DzIOYomjwcpjhd fSD1ODVsHTHuhZ22Cj1lsJur MTBw mVLOkC0abkbnw7vyizydLkBw WOYkYEg3RQo5KBPemFynDlBu ELI7GyK2EUU1wIHndT1bvAfw bjog vM6vN2KzRQHkeycdHj88eQ5e QpMpKvK6QBwgTax+QkFVRVIs IEdBVkVOIEFORFJFVzwvdGQ+ PHRk BLX3pLozRCyjPGCdlX5oJAJg M9v9GeWaXnB1QSziU7RyXYDn mynbRc73dN1iJlBgVjM6RFhf O2Zv zsA6ITFneKTmHGzxMER6I11x n4B3QISdHOXyLCC9rHR5kF3q bGlnbjogbGVmdDsgdmVydGlj YWwt RVaeJ262JCDuxSvxNoIkCuKm SuHhCSJ7S1NaFcc4CJHfzFkz RG3oyCDjXIquGl9acMzgqLdb MC4w IHYenpchHXWlcA7fEISbiMZb vGcoQD4tJOJtevyym151EhMk HTY0PKVvkKUnX3NlsC8zUlJo MDAw GPPoF6DqfWWvBGexL358UIry VfP9DIEkryIxH9VsAHGufMta ZbR4l2X6Sh1vZIGSTNHhvesq dGQ+ ZJYgUIX4lEeqQGvfWSCuvI2n GBLkH3t2GdEpSfZ1FLhgX0Ux EXMymrpiCq40tI3tQcBhIvM2 MGlu Y0DznuD7FTYxfMDxYDhhYJV5 X74dq8I2FZHeNFGkSTT8mDY6 tT6ujSwxcxghlLIxdQpvwbTr dGlj FLvoUMksR969JGVufVbdIz8D ESE9E1AfWch7ZQTsrVhdOH8o oGXlGTabYy1biCqfqOxwSV1m NTBp awkbZQUiyH7pCGEyeUOonVwg OT8bLLFudoklu728NzRaANU1 TGDptPOmP9UwnH8qIvPpEHKm MDAw P8LeoEZqBPcaW630XKoeRqM7 BYOszxOiG7IlPXGpbXofFuA5 m1E9Vk7DVFzsmOK+BM27jr04 L3Rh NepoCuh3OISlMDH4zIA6qX8r EXOtXHwrs5B7uEH1G9PqqwJv we1oe0lqRSLvZGsfB77shJCj c2U7 RDCbiNM2BPSkzYizHeEtuB82 Oyc+KQBuhErrg0XkMpxsb8md y3yrjWw2XbByZGCsgzDjnDuu PSJ0 h2TsOy78B39tMFmpFVNpGQZp YSRuLVApwNbohp0ccA0sFk4+ VEVxoMF9iZG3lD1tMtEjOvI5 YWxp F162XuJfaNWcMmcqg7cxr3jh zQe5JrNhAHReumNknEzfQQV6 y1WgKj40I9KnmMdjn4EgAyi5 cj48 sYZxh3S7dMP4Y5FeALSadeeg bVGyxMabAV2eEADzmpqdEOQm rK7oWANyK9o4JhRgUeW3XKhh O2Zv bpT1DHCwvOSqDLOueOJUpJ6q jeaxr0xxchupKkEtKJZlSOg7 WKg3SCFoyQwxHpFmNOB1RbY2 ZXJ0 uNKuhS1lvOfokdjcnH6jWeh+ QSu7g7vfuRBiOJ2rzDD4VV52 NK04vXDbm9M7eMM9Y7UjDYDk bmct rryvkJT5MEVcRYTcbZ53Hq3q bXmnXp4kIARtFBB3POOwvGEz K2HtzS8rJmJuXVJvBLEnV0Vm eHQt KNrqP389YCjuQcK8KXRwtsCp Y2BpGLYkdCufTdK8z1K0Gb4P ZJ22RO82VD37gHNqk1X8lHP5 J3Bh LMUifpsiuafkrIV1DRAwGDRq yU90Li8bgYajWv5tZPVrYFV4 ALRivESiJ5TkjH1tOpOyASVj MDAw A2RhwLJpNZnfK200ZUgyVxH5 VKCoegNrH9TfZAUfjJomByU6 n7T0Lu5SEt57RK07FZ93nQBz c3R5 kGX3X5AbCIMcwiytzytlyVU6 FERgEUGnpE59Nk9efNbfOo0c YUXfRBA0IHCljDWsJ3XvzY4h OiAj FJKdRDFbE7XlwQDdIQmuE646 XAuxLeN0LOTjugHnU6AtQVJa jSptRwP3n4M3Vs2JFVkckix0 L3Rk PjwvdHI+KF27ODNpRF60tCJb zQIsa4dffDq1ZhUmTMHxZCH1 pNltHTaeu7UkPLMxP07ueVQz c2U6 IGN (more content not included)... Normal [facility] Reminder Messageson 01-03-20 Reminder Messages - From: BALJIT PISANO DO To: [facility] Clinical Pool ([facility] Sent: 01/01/2023 10:45:19 EDT ! Show up: [...] patient of results, patient verbalized understanding. Normal [facility] HBsAg Screen LCon 01-01-2023 HBsAg Screen LC Negative Invalid Interpretation Code Negative [facility] Comment on above: Result Comment: Perf ormed At: [id number] [place], [place] [id number] Chai Apple PhD Ph:[phone] Performed By: #### 3 [id number], [id number], [id number], [id number], [id number], [id number] ####[facility] (DEFAULT)[address] [place] [address]238 HCV Antibody LCon 01-01-2023 Hep C Virus Ab LC Non-Reactive Invalid Interpretation Code Non Reactive [facility] Comment on above: Result Comment: HCV antibody alone does not differentiate between previously resolved infection and active infection. Equivocal and Reactive HCV antibody results should be followed up with an HCV RNA test to support the diagnosis of active HCV infection. Performed At: [id number] [place], [place] [id number] Chai Apple PhD Ph:[phone] Performed By: #### 3 [id number], [id number], 2423222, 30532160, 76935908, [id number] ####[facility] (DEFAULT)[address] [place] [address]7340 Hep A Ab, Total LCon 023 Hep A Ab, Total LC Positive Abnormal Negative [facility] Comment on above: Result Comment: Perf ormed At: [address] [id number] Chai Apple PhD Ph:[phone] Performed By: #### 3 [id number], [id number], 2807972, 50134381, [id number], [id number] ####[facility] (DEFAULT)[address] [place] [address]9528 Outside Recordson 01-01-2023 Outside Records [id number] [facility] [id number]#1.00OTG TIFF Normal [facility] Patient Handouton 01-01-2023 Patient Handout [id number] [facility] [id number]#1.00OTG TIFF Normal [facility] .Auto Diff 12-31-2022 Auto [place] % 8 % Normal -12 [facility] Comment on above: Performed By: #### 3 [id number], [id number], 4175267, 89386752, 69808502, [id number] ####[facility] (DEFAULT)[address] [place] [address]8967 Baso Abs# 0.0 x10 Normal 0.0-0.2 [facility] Comment on above: Performed By: #### 3 [id number], 60325333, 6850754, 40373647, 77563682, [id number] ####[facility] (DEFAULT)[address] [place] [address]6936 Basophils/100 WBC (Bld) 0.6 % Normal 0.2-2.0 [facility] Comment on above: Performed By: #### 3 [id number], 65234936, 8179116, 64116244, 97821839, [id number] ####[facility] (DEFAULT)[address] [place] [address]1111 Eos Abs# 0.1 x10 Normal 0.0-0.4 [facility] Comment on above: Performed By: #### 3 [id number], 84770642, 9781583, 75082793, 60117301, [id number] ####[facility] (DEFAULT)[address] [place] [address] 17703 Eosinophils/100 WBC (Bld) 1.9 % Normal 0.9-4.0 [facility] Comment on above: Performed By: #### 3 2481055, 83826878, 5584417, 39536917, 77230830, [id number] ####[facility] (DEFAULT)[address] [place] [address]6830 Lymph Abs# 1.8 x10 Normal 1.3-2.9 [facility] Comment on above: Performed By: #### 3 6598881, 87743430, 2898159, 41263497, 59344586, [id number] ####[facility] (DEFAULT)[address] [place] [address] Lymphocytes/100 WBC (Bld) 27 % Normal 14-48 [facility] Comment on above: Performed By: #### 3 8461515, 65525819, 7467288, 74117554, 09191799, [id number] ####[facility] (DEFAULT)[address] [place] [address] [place] Abs# 0.5 x10 Normal 0.0-0.8 [facility] Comment on above: Performed By: #### 3 3000341, 89633060, 6619162, 00850279, 63929854, [id number] ####[facility] (DEFAULT)[address] [place] [address] Neut Abs# 4.3 x10 Normal 1.5-9.2 [facility] Comment on above: Performed By: #### 3 1617778, 10590843, 9921157, 24656505, 79297736, [id number] ####[facility] (DEFAULT)[address] [place] [address] Neutrophils/100 WBC (Bld) 63 % Normal 44-88 [facility] Comment on above: Performed By: #### 3 3398846, 52385497, 7919033, 40046857, 54318691, [id number] ####[facility] (DEFAULT)[address] [place] [address] CBC w/ Auto Diffon 3 Erythrocyte distribution width (RBC) [Ratio] 13.0 % Normal 11.5-15.0 [facility] Comment on above: Performed By: #### 3 [id number], 03435200, 8583283, [id number], [id number], [id number] ####[facility] (DEFAULT)[address] [place] [address] Hematocrit (Bld) [Volume fraction] 43.9 % Normal 34.8-51.9 [facility] Comment on above: Performed By: #### 3 [id number], [id number], [id number], [id number], [id number], [id number] ####[facility] (DEFAULT)[address] [place] [address] Hemoglobin (Bld) [Mass/Vol] 15.4 g/dL Normal 11.8-17.7 [facility] Comment on above: Performed By: #### 3 [id number], [id number], [id number], [id number], [id number], [id number] ####[facility] (DEFAULT)[address] [place] [address] Man Diff? Auto Invalid Interpretation Code [facility] Comment on above: Performed By: #### 3 [id number], [id number], [id number], [id number], [id number], [id number] ####[facility] (DEFAULT)[address] [place] [address] MCH (RBC) [Entitic mass] 30 pg Normal 24-34 [facility] Comment on above: Performed By: #### 3 [id number], [id number], 4569894, 53605637, [id number], [id number] ####[facility] (DEFAULT)[address] [place] [address] MCHC (RBC) [Mass/Vol] 35 g/dL Normal 26-37 [facility] Comment on above: Performed By: #### 3 [id number], [id number], [id number], [id number], [id number], [id number] ####[facility] (DEFAULT)[address] [place] [address] MCV (RBC) [Entitic vol] 86 fL Normal 81-100 [facility] Comment on above: Performed By: #### 3 [id number], [id number], 1485481, 76935803, 18885939, [id number] ####[facility] (DEFAULT)[address] [place] [address] Platelet 252 x10 Normal 138-427 [facility] Comment on above: Performed By: #### 3 [id number], [id number], 1278975, 12937265, 67714785, [id number] ####[facility] (DEFAULT)[address] [place] [address] Platelet mean volume (Bld) [Entitic vol] 8.5 fL Normal 6.3-10.2 [facility] Comment on above: Performed By: #### 3 [id number], [id number], 0498841, 39998134, [id number], [id number] ####[facility] (DEFAULT)[address] [place] [address] RBC 5.08 x10 Normal 3.70-5.30 [facility] Comment on above: Performed By: #### 3 [id number], 60635303, 8952067, 39865447, 42004571, [id number] ####[facility] (DEFAULT)[address] [place] [address]73 WBC 6.8 x10 Normal 3.5-10.5 [facility] Comment on above: Performed By: #### 3 [id number], 70512057, 6075512, 28740171, 57158085, [id number] ####[facility] (DEFAULT)[address] [place] [address] Liver Enzymeson 12-31-2022 Alk Phos 62 IU/L Normal 32-91 [facility] Comment on above: Performed By: #### 3 [id number], 18401267, 4656239, 96958569, 08599992, [id number] ####[facility] (DEFAULT)[address] [place] [address] 10911 ALT [Catalytic activity/Vol] 60.0 U/L High 8.0-36.0 [facility] Comment on above: Performed By: #### 3 [id number], 30791466, 6188260, 79933892, 81450890, [id number] ####[facility] (DEFAULT)[address] [place] [address]01 AST [Catalytic activity/Vol] 41 U/L High 13-38 [facility] Comment on above: Performed By: #### 3 [id number], 06935287, 6236696, 49196094, 80730315, [id number] ####[facility] (DEFAULT)[address] [place] [address] Gamma glutamyl transferase [Catalytic activity/Vol] 26.0 U/L Normal 7.0-26.0 [facility] Comment on above: Performed By: #### 3 [id number], 62942463, 6455217, 09329359, 94200711, [id number] ####[facility] (DEFAULT)[address] [place] [address] Patient Handouton 12-30-2022 Patient Handout [id number] TGTIFF Normal [facility] VICE PRESIDENT RESEARCH ANTIBODIESon 09-22-2022 VICE PRESIDENT RESEARCH Antibodies 0.3 AI Normal 0.0-0.9 [facility] Comment on above: Performed By: #### R NPAB #### [facility] [address] [place] [address] Dr. Radha Owens SJOGRENS ANTIBODIES (Anti SS A/B)on 09-22-2022 Sjogren's Anti-SS-A <0.2 Normal 0.0-0.9 [facility] Comment on above: Performed By: #### S AASSAB #### [facility] [address] [place] [address] Dr. Radha Owens Sjogren's Anti-SS-B <0.2 Normal 0.0-0.9 [facility] Comment on above: Performed By: #### S AASSAB #### [facility] [address] [place] [address] Dr. Radha Owens SLE PROFILE Bon 09-22-2022 TENA Direct Negative Normal Negative [facility] Comment on above: Performed By: #### S LEPB #### [facility] [address] [place] [address] Dr. Radha Owens Anti-DNA (DS) Ab Qn 2 IU/mL Normal 0-9 [facility] Comment on above: Result Comment: Nega tive <5 Equivocal 5 - 9 Positive >9 Performed By: #### S LEPB #### [facility] [address] [address] [address] Radha Owens Antichromatin Antibodies <0.2 Normal 0.0-0.9 [facility] Comment on above: Performed By: #### S LEPB #### [facility] [address] [address] [address] Radha Owens Complement C3, Serum 161 mg/dL Normal 82-167 [facility] Comment on above: Performed By: #### S LEPB #### [facility] [address] [address] [address] Radha Owens Complement C4, Serum 23 mg/dL Normal 12-38 [facility] Comment on above: Performed By: #### S LEPB #### [facility] [address] [address] [address] Radha Owens NEWBERRY ANTIBODIESon 3 Newberry Antibodies <0.2 Normal 0.0-0.9 [facility] Comment on above: Performed By: #### S MITHAB #### [facility] [address] [address] [address] Radha Owens RHEUMATOID FACTORon 09-21-19 23 RA Latex Turbid. <10.0 Normal <14.0 [facility] Comment on above: Performed By: #### R F ####[facility] [address] [address]Dr. Radha Owens TENA by IFAon 09-18-2022 Antinuclear Antibodies, IFA Positive Abnormal [facility] Comment on above: Result Comment: Nega tive <1:80 Borderline 1:80 Positive >1:80 Performed By: #### A NAIFA #### [facility] [address] [address] [address] Radha Owens Centriole Pattern Normal [facility] Comment on above: Performed By: #### A NAIFA #### [facility] [address] [address] [address] Radha Owens Centromere Pattern Normal [facility] Comment on above: Performed By: #### A NAIFA #### [facility] [address] [address] [address] Radha Owens Homogeneous Pattern 1:320 Critically high [facility] Comment on above: Result Comment: ICAP nomenclature: AC-1 Performed By: #### A NAIFA #### [facility] [address] [address] [address] Radha Owens Midbody Pattern Normal [facility] Comment on above: Performed By: #### A NAIFA #### [facility] [address] [address] [address] Radha Owens Note: Comment Normal [facility] Comment on above: Result Comment: [...] titers Nucleosomes, Histones Drug-induced SLE Speckled Sm, VICE PRESIDENT RESEARCH, SCL-70, SLE,MCTD,PSS (diffuse form), SS-A/SS-B Sjogrens Nucleolar SCL-70, PM-1/SCL High titers Scleroderma, PM/DM Centromere Centromere PSS (limited form) w/Crest syndrome variable Nuclear Dot Sp100,s52-ssimdl Primary Biliary Cirrhosis Nuclear GP210, Primary Biliary Cirrhosis Membrane subhash A,B,C Performed By: #### A NAIFA #### [facility] [address] [place] [address] Dr. Radha Owens Nuclear Dot Pattern Normal [facility] Comment on above: Performed By: #### A NAIFA #### [facility] [address] [place] [address] Dr. Radha Owens Nuclear Membrane Pattern Normal [facility] Comment on above: Performed By: #### A NAIFA #### [facility] [address] [address] [address] Radha Owens Nucleolar Pattern Normal [facility] Comment on above: Performed By: #### A NAIFA #### [facility] [address] [place] [address] Dr. Radha Owens PCNA Pattern Normal [facility] Comment on above: Performed By: #### A NAIFA #### [facility] [address] [address] [address] Radha Owens Speckled Pattern Normal [facility] Comment on above: Performed By: #### A NAIFA #### [facility] [address] [place] [address] Dr. Radha Owens Spindle Apparatus Pattern Normal [facility] Comment on above: Performed By: #### A NAIFA #### [facility] [address] [place] [address] Dr. Radha Owens RHEUMATOID FACTORon 09-17-19 RA Latex Turbid. <10.0 Normal <14.0 [facility] Comment on above: Performed By: #### R F ####[facility] [address] [address]Dr. Radha Owens CBC AUTO DIFFon 09-15-2022 BASO # 0.0 103/ul Normal 0.0-0.1 [facility] Comment on above: Performed By: #### C BC #### [facility] [address] [place] [address] Dr. Radha Owens Basophils/100 WBC (Bld) 0.6 % Normal 0.2-2.0 [facility] Comment on above: Performed By: #### C BC #### [facility] [address] [place] [address] Dr. Radha Owens EO # 0.1 103/ul Normal 0.0-0.7 [facility] Comment on above: Performed By: #### C BC #### [facility] [address] [place] [address] Dr. Radha Owens Eosinophils/100 WBC (Bld) 1.8 % Normal 0.9-7.0 [facility] Comment on above: Performed By: #### C BC #### [facility] [address] [place] [address] Dr. Radha Owens Erythrocyte distribution width (RBC) [Ratio] 12.3 % Normal 11.0-15.0 [facility] Comment on above: Performed By: #### C BC #### [facility] [address] [place] [address] Dr. Radha Owens Hematocrit (Bld) [Volume fraction] 42.2 % Normal 42.0-54.0 [facility] Comment on above: Performed By: #### C BC #### [facility] [address] [place] [address] Dr. Radha Owens Hemoglobin (Bld) [Mass/Vol] 14.3 g/dL Normal 14.0-18.0 [facility] Comment on above: Performed By: #### C BC #### [facility] [address] [place] [address] Dr. Radha Owens IG # 0.02 10e3/ul Normal 0.00-0.03 [facility] Comment on above: Performed By: #### C BC #### [facility] [address] [place] [address] Dr. Radha Owens IG % 0.3 % Normal 0.0-0.5 [facility] Comment on above: Performed By: #### C BC #### [facility] [address] [place] [address] Dr. Radha Owens LYMPH # 1.8 103/ul Normal 1.2-3.8 [facility] Comment on above: Performed By: #### C BC #### [facility] [address] [place] [address] Dr. Radha Owens Lymphocytes/100 WBC (Bld) 27.8 % Normal 20.5-60.0 [facility] Comment on above: Performed By: #### C BC #### [facility] [address] [place] [address] Dr. Radha Owens MANUAL DIFF REQ NO Normal [facility] Comment on above: Performed By: #### C BC #### [facility] [address] [place] [address] Dr. Radha Owens MCH (RBC) [Entitic mass] 29.8 pg Normal 25.9-34.0 [facility] Comment on above: Performed By: #### C BC #### [facility] [address] [place] [address] Dr. Radha Owens MCHC (RBC) [Mass/Vol] 33.9 g/dL Normal 29.9-35.2 [facility] Comment on above: Performed By: #### C BC #### [facility] [address] [address] [address] Radha Owens MCV (RBC) [Entitic vol] 87.9 fL Normal 80.0-94.0 [facility] Comment on above: Performed By: #### C BC #### [facility] [address] [address] [address] Radha Owens MONO # 0.7 103/ul Normal 0.3-0.8 [facility] Comment on above: Performed By: #### C BC #### [facility] [address] [place] [address] Dr. Radha Owens Monocytes/100 WBC (Bld) 11.3 % Normal 1.7-12.0 [facility] Comment on above: Performed By: #### C BC #### [facility] [address] [place] [address] Dr. Radha Owens NEUT # 3.8 103/ul Normal 1.4-6.5 [facility] Comment on above: Performed By: #### C BC #### [facility] [address] [place] [address] Dr. Radha Owens Neutrophils/100 WBC (Bld) 58.2 % Normal 43.0-75.0 [facility] Comment on above: Performed By: #### C BC #### [facility] [address] [place] [address] Dr. Radha Owens Platelet mean volume (Bld) [Entitic vol] 10.4 fL Normal 9.5-13.5 [facility] Comment on above: Performed By: #### C BC #### [facility] [address] [place] [address] Dr. Radha Owens PLT 235 103/ul Normal 150-450 [facility] Comment on above: Performed By: #### C BC #### [facility] [address] [place] [address] Dr. Radha Owens RBC 4.80 106/ul Normal 4.70-6.10 [facility] Comment on above: Performed By: #### C BC #### [facility] [address] [address] [address] Radha Owens WBC 6.5 103/ul Normal 4.0-11.0 [facility] Comment on above: Performed By: #### C BC #### [facility] [address] [place] [address] Dr. Radha Owens PROF 14(COMP METB)on 023 Albumin [Mass/Vol] 3.9 g/dL Normal 3.4-5.0 [facility] Comment on above: Performed By: #### C MP, URIC #### [facility] [address] [place] [address] Dr. Radha Owens Albumin/Globulin [Mass ratio] 1.0 {ratio} Normal [facility] Comment on above: Performed By: #### C MP, URIC #### [facility] [address] [place] [address] Dr. Radha Owens ALP [Catalytic activity/Vol] 73 U/L Normal 46-116 [facility] Comment on above: Performed By: #### C MP, URIC #### [facility] [address] [place] [address] Dr. Radha Owens ALT [Catalytic activity/Vol] 66 U/L Critically high 16-63 [facility] Comment on above: Performed By: #### C MP, URIC #### [facility] [address] [address] [address] Radha Owens Anion gap [Moles/Vol] 13.2 mmol/L Normal [facility] Comment on above: Performed By: #### C MP, URIC #### [facility] [address] [place] [address] Dr. Radha Owens AST [Catalytic activity/Vol] 31 U/L Normal 15-37 [facility] Comment on above: Performed By: #### C MP, URIC #### [facility] [address] [place] [address] Dr. Radha Owens Bilirubin [Mass/Vol] 0.8 mg/dL Normal 0.2-1.0 [facility] Comment on above: Performed By: #### C MP, URIC #### [facility] [address] [address] [address] Radha Owens Calcium [Mass/Vol] 9.2 mg/dL Normal 8.5-10.1 [facility] Comment on above: Performed By: #### C MP, URIC #### [facility] [address] [address] [address] Radha Owens Chloride [Moles/Vol] 107 mmol/L Normal 98-107 [facility] Comment on above: Performed By: #### C MP, URIC #### [facility] [address] [place] [address] Dr. Radha Owens CO2 [Moles/Vol] 26.0 mmol/L Normal 21.0-32.0 [facility] Comment on above: Performed By: #### C MP, URIC #### [facility] [address] [place] [address] Dr. Radha Owens Creatinine [Mass/Vol] 0.89 mg/dL Normal 0.70-1.30 [facility] Comment on above: Performed By: #### C MP, URIC #### [facility] [address] [place] [address] Dr. Radha Owens EGFR-AF ARGENTINE >60 Normal >=60 [facility] Comment on above: Performed By: #### C MP, URIC #### [facility] [address] [place] [address] Dr. Radha Owens EGFR-NON AF ARGENTINE >60 Normal >=60 [facility] Comment on above: Performed By: #### C MP, URIC #### [facility] [address] [place] [address] Dr. Radha Owens Globulin (S) [Mass/Vol] 4.1 g/dL Normal [facility] Comment on above: Performed By: #### C MP, URIC #### [facility] [address] [place] [address] Dr. Radha Owens Glucose [Mass/Vol] 99 mg/dL Normal 74-106 [facility] Comment on above: Performed By: #### C MP, URIC #### [facility] [address] [address] [address] Radha Owens Potassium [Moles/Vol] 4.2 mmol/L Normal 3.5-5.1 [facility] Comment on above: Performed By: #### C MP, URIC #### [facility] [address] [address] [address] Radha Owens Protein [Mass/Vol] 8.0 g/dL Normal 6.4-8.2 [facility] Comment on above: Performed By: #### C MP, URIC #### [facility] [address] [address] [address] Radha Owens Sodium [Moles/Vol] 142 mmol/L Normal 136-145 [facility] Comment on above: Performed By: #### C MP, URIC #### [facility] [address] [place] [address] Dr. Rdaha Owens Urea nitrogen [Mass/Vol] 13.0 mg/dL Normal 6.4-19.3 [facility] Comment on above: Performed By: #### C MP, URIC #### [facility] [address] [address] [address] Radha Owens Urea nitrogen/Creatinine [Mass ratio] 14.6 mg/mg Normal [facility] Comment on above: Performed By: #### C MP, URIC #### [facility] [address] [place] [address] Dr. Radha Owens [facility] SED RATE 12 mm/hr Normal <=15 [facility] Comment on above: Performed By: #### S EDR #### [facility] [address] [address] [address] Radha Owens URIC ACID SERUMon 09-15-2022 Urate [Mass/Vol] 5.9 mg/dL Normal 3.5-7.[address] [facility] Comment on above: Performed By: #### C MP, URIC #### [facility] [address] [address] [address] Radha Owens US CLIF DOP LEG [...] by: SANJAY ROJAS Date: 2022-07-03 17:14 Normal [facility] COVID Quick Testingon 2021 Result Negative ViSSee Other MRI Knee w/o Righton MRI Knee [...] by Rafita Farris on 05/01/2021 1125 Normal [facility] [employer] KNEE RIGHTon 04-18-2021 KNEE RIGHT EXAMINATION: KNEE RI GHT, 04/18/2021 5:05 PM EST HISTORY: Traumatic injury, pain COMPARISON: None. TECHNIQUE: Right knee x-ray: 2 view(s). FINDINGS: Bones are normal density. No fracture, no bone destruction. Small knee effusion noted. Subcutaneous edema is seen. IMPRESSION: 1. No acute traumatic osseous pathology 2. Subcutaneous edema, possible small knee effusion Normal [facility] XR ANKLE 3 VIEWS - LEFTon [...] Noriega MD on 12/25/2017 2:18 PM Normal [facility] Vital Signs Date Time Vital Sign Value Performing Clinician Facility 03-22-2024 11:15-0500 Diastolic blood pressure 89 mm[Hg] Leatha Diaz APRN Work Phone: [facility] 03-22-2024 11:15-0500 Heart rate 84 /min Leatha Diaz APRN Work Phone: [facility] 03-22-2024 11:15-0500 Respiratory rate 16 /min Leatha Diaz APRN Work Phone: [facility] 03-22-2024 11:15-0500 SaO2% (BldA) [Mass fraction] 99 % Leatha Diaz APRN Work Phone: [facility] 03-22-2024 11:15-0500 Systolic blood pressure 142 mm[Hg] Leatha Diaz APRN Work Phone: [facility] 03-22-2024 09:53-0500 Body height 182.88 cm Leatha Diaz APRN Work Phone: [facility] 03-22-2024 09:53-0500 Body weight 181.43 kg Leatha Diaz APRN Work Phone: [facility] 02-25-2024 15:32-0400 Body height 182.88 cm [facility] 02-25-2024 15:32-0400 Body mass index (BMI) [Ratio] 57.1 kg/m2 [facility] 02-25-2024 15:32-0400 Body temperature 97.1 [degF] [facility] 02-25-2024 15:32-0400 Body weight 190.96 kg [facility] 02-25-2024 15:32-0400 Diastolic blood pressure 86 mm[Hg] [facility] 02-25-2024 15:32-0400 Heart rate 73 /min [facility] 02-25-2024 15:32-0400 SaO2% (BldA) [Mass fraction] 97 % [facility] 02-25-2024 15:32-0400 Systolic blood pressure 132 mm[Hg] [facility] 02-09-2024 09:01-0400 Body height 182.88 cm [facility] 02-09-2024 09:01-0400 Body mass index (BMI) [Ratio] 57.4 kg/m2 [facility] 02-09-2024 09:01-0400 Body weight 192.09 kg [facility] 02-09-2024 09:01-0400 Diastolic blood pressure 81 mm[Hg] [facility] 02-09-2024 09:01-0400 Heart rate 110 /min [facility] 02-09-2024 09:01-0400 Respiratory rate 20 /min [facility] 02-09-2024 09:01-0400 SaO2% (BldA) [Mass fraction] 94 % [facility] 02-09-2024 09:01-0400 Systolic blood pressure 126 mm[Hg] [facility] 01-28-2024 10:26-0400 Body height 182.88 cm [facility] 01-28-2024 10:26-0400 Body mass index (BMI) [Ratio] 57.1 kg/m2 [facility] 01-28-2024 10:26-0400 Body temperature 97.8 [degF] [facility] 01-28-2024 10:26-0400 Body weight 190.96 kg [facility] 01-28-2024 10:26-0400 Diastolic blood pressure 84 mm[Hg] [facility] 01-28-2024 10:26-0400 Heart rate 110 /min [facility] 01-28-2024 10:26-0400 SaO2% (BldA) [Mass fraction] 96 % [facility] 01-28-2024 10:26-0400 Systolic blood pressure 130 mm[Hg] [facility] 12-31-2023 10:31-0400 Body height 182.88 cm [facility] 12-31-2023 10:31-0400 Body mass index (BMI) [Ratio] 56.2 kg/m2 [facility] 12-31-2023 10:31-0400 Body weight 188.24 kg [facility] 12-31-2023 10:31-0400 Diastolic blood pressure 80 mm[Hg] [facility] 12-31-2023 10:31-0400 Heart rate 97 /min [facility] 12-31-2023 10:31-0400 SaO2% (BldA) [Mass fraction] 98 % [facility] 12-31-2023 10:31-0400 Systolic blood pressure 116 mm[Hg] [facility] 12-09-2023 11:15-0400 Body height 182.88 cm [facility] 12-09-2023 11:15-0400 Body mass index (BMI) [Ratio] 54.8 kg/m2 [facility] 12-09-2023 11:15-0400 Body weight 183.42 kg [facility] 12-09-2023 11:15-0400 Diastolic blood pressure 92 mm[Hg] [facility] 12-09-2023 11:15-0400 Heart rate 108 /min [facility] 12-09-2023 11:15-0400 Respiratory rate 20 /min [facility] 12-09-2023 11:15-0400 SaO2% (BldA) [Mass fraction] 98 % [facility] 12-09-2023 11:15-0400 Systolic blood pressure 144 mm[Hg] [facility] 11-09-2023 08:32-0400 Body height 182.88 cm MARKET RESEARCH COORDINATORJyoti Quintanillaacher Work Phone: [facility] 11-09-2023 08:32-0400 Body mass index (BMI) [Ratio] 53.8 kg/m2 MARKET RESEARCH COORDINATORJyoti Zavalarbacher Work Phone: [facility] 11-09-2023 08:32-0400 Body weight 180.07 kg MARKET RESEARCH COORDINATORJyoti Quintanillaacher Work Phone: [facility] 11-09-2023 08:32-0400 Diastolic blood pressure 78 mm[Hg] MARKET RESEARCH COORDINATORJyoti Quintanillaacher Work Phone: [facility] 11-09-2023 08:32-0400 Heart rate 91 /min MARKET RESEARCH COORDINATORJyoti Quintanillaacher Work Phone: [facility] 11-09-2023 08:32-0400 SaO2% (BldA) [Mass fraction] 98 % MARKET RESEARCH COORDINATORJyoti Zavalarbacher Work Phone: [facility] 11-09-2023 08:32-0400 Systolic blood pressure 118 mm[Hg] REUBEN Quintanillaacher Work Phone: [facility] 10-22-2023 09:32-0400 Body height 182.88 cm MARKET RESEARCH COORDINATORJyoti Zavalarbacher Work Phone: [facility] 10-22-2023 09:32-0400 Body mass index (BMI) [Ratio] 54.5 kg/m2 MARKET RESEARCH COORDINATORJyoti Zavalarbacher Work Phone: [facility] 10-22-2023 09:32-0400 Body weight 182.37 kg MARKET RESEARCH COORDINATORJyoti Quintanillaacher Work Phone: [facility] 10-22-2023 09:32-0400 Diastolic blood pressure 71 mm[Hg] MARKET RESEARCH COORDINATOR Leatha Lucasrbacher Work Phone: [facility] 10-22-2023 09:32-0400 Heart rate 114 /min MARKET RESEARCH COORDINATOR Leatha Zavalarbacher Work Phone: [facility] 10-22-2023 09:32-0400 Respiratory rate 20 /min MARKET RESEARCH COORDINATOR Leatha Lucasrbacher Work Phone: [facility] 10-22-2023 09:32-0400 SaO2% (BldA) [Mass fraction] 95 % MARKET RESEARCH COORDINATOR Leatha Lucasrbacher Work Phone: [facility] 10-22-2023 09:32-0400 Systolic blood pressure 120 mm[Hg] MARKET RESEARCH COORDINATOR Leatha Lucasrbacher Work Phone: [facility] 10-12-2023 15:58-0400 Body height 182.88 cm MARKET RESEARCH COORDINATOR Leatha Zavalarbacher Work Phone: [facility] 10-12-2023 15:58-0400 Body mass index (BMI) [Ratio] 54.2 kg/m2 MARKET RESEARCH COORDINATORJyoti Zavalarbacher Work Phone: [facility] 10-12-2023 15:58-0400 Body weight 181.43 kg MARKET RESEARCH COORDINATOR Leatha Lucasrbacher Work Phone: [facility] 10-12-2023 15:58-0400 Diastolic blood pressure 76 mm[Hg] MARKET RESEARCH COORDINATOR Leatha Lucasrbacher Work Phone: [facility] 10-12-2023 15:58-0400 Heart rate 112 /min MARKET RESEARCH COORDINATOR Leatha Lucasrbacher Work Phone: [facility] 10-12-2023 15:58-0400 SaO2% (BldA) [Mass fraction] 98 % MARKET RESEARCH COORDINATOR Leatha Lucasrbacher Work Phone: [facility] 10-12-2023 15:58-0400 Systolic blood pressure 118 mm[Hg] MARKET RESEARCH COORDINATOR Leatha Lucasrbacher Work Phone: [facility] 09-24-2023 14:27-0400 Body height 182.88 cm MARKET RESEARCH COORDINATOR Leatha Lucasrbacher Work Phone: [facility] 09-24-2023 14:27-0400 Body mass index (BMI) [Ratio] 53.4 kg/m2 MARKET RESEARCH COORDINATOR Leatha Lucasrbacher Work Phone: [facility] 09-24-2023 14:27-0400 Body weight 178.71 kg MARKET RESEARCH COORDINATOR Leatha Lucasrbacher Work Phone: [facility] 09-24-2023 14:27-0400 Diastolic blood pressure 78 mm[Hg] MARKET RESEARCH COORDINATORJyoti JamilLeatha Lucasrbacher Work Phone: [facility] 09-24-2023 14:27-0400 Heart rate 110 /min MARKET RESEARCH COORDINATOR Leatha Lucasrbacher Work Phone: [facility] 09-24-2023 14:27-0400 SaO2% (BldA) [Mass fraction] 98 % MARKET RESEARCH COORDINATOR Leatha Lucasrbacher Work Phone: [facility] 09-24-2023 14:27-0400 Systolic blood pressure 128 mm[Hg] MARKET RESEARCH COORDINATORJyoti JamilLeatha Socorroacher Work Phone: [facility] 09-10-2023 10:28-0400 Body height 182.88 cm MARKET RESEARCH COORDINATORJyoti JamilLeatha Lucasrbacher Work Phone: [facility] 09-10-2023 10:28-0400 Body mass index (BMI) [Ratio] 54.3 kg/m2 MARKET RESEARCH COORDINATORJyoti JamilLeatha Lucasrbacher Work Phone: [facility] 09-10-2023 10:28-0400 Body weight 181.6 kg MARKET RESEARCH COORDINATORJyoti Zavalarbacher Work Phone: [facility] 09-10-2023 10:28-0400 Diastolic blood pressure 87 mm[Hg] MARKET RESEARCH COORDINATOR Leatha Lucsarbacher Work Phone: [facility] 09-10-2023 10:28-0400 Heart rate 102 /min MARKET RESEARCH COORDINATOR Leatha Lucasrbacher Work Phone: [facility] 09-10-2023 10:28-0400 Respiratory rate 20 /min MARKET RESEARCH COORDINATOR Leatha Lucasrbacher Work Phone: [facility] 09-10-2023 10:28-0400 SaO2% (BldA) [Mass fraction] 97 % MARKET RESEARCH COORDINATOR Leatha Lucasrbacher Work Phone: [facility] 09-10-2023 10:28-0400 Systolic blood pressure 134 mm[Hg] MARKET RESEARCH COORDINATOR Leatha Lucasmarlenacher Work Phone: [facility] 08-27-2023 10:38-0400 Body height 182.88 cm MARKET RESEARCH COORDINATOR Leatha Lucasrbacher Work Phone: [facility] 08-27-2023 10:38-0400 Body mass index (BMI) [Ratio] 54.5 kg/m2 MARKET RESEARCH COORDINATOR Leatha Zavalarbacher Work Phone: [facility] 08-27-2023 10:38-0400 Body weight 182.34 kg MARKET RESEARCH COORDINATOR Leatha Lucasmarlenacher Work Phone: [facility] 08-27-2023 10:38-0400 Diastolic blood pressure 74 mm[Hg] MARKET RESEARCH COORDINATOR Leatha Lucasrbacher Work Phone: [facility] 08-27-2023 10:38-0400 Heart rate 104 /min MARKET RESEARCH COORDINATOR Leatha Lucasrbacher Work Phone: [facility] 08-27-2023 10:38-0400 SaO2% (BldA) [Mass fraction] 98 % MARKET RESEARCH COORDINATORJyoti Zavalarbacher Work Phone: [facility] 08-27-2023 10:38-0400 Systolic blood pressure 116 mm[Hg] REUBEN Quintanillaacher Work Phone: [facility] 08-13-2023 10:02-0400 Body height 182.88 cm DO Baljit House Work Phone: [facility] 08-13-2023 10:02-0400 Body mass index (BMI) [Ratio] 55.2 kg/m2 DO Baljit House Work Phone: [facility] 08-13-2023 10:02-0400 Body weight 184.75 kg DO Baljit House Work Phone: [facility] 08-13-2023 10:02-0400 Diastolic blood pressure 49 mm[Hg] DO Baljit House Work Phone: [facility] 08-13-2023 10:02-0400 Heart rate 99 /min DO Baljit House Work Phone: [facility] 08-13-2023 10:02-0400 Respiratory rate 20 /min DO Baljit House Work Phone: [facility] 08-13-2023 10:02-0400 SaO2% (BldA) [Mass fraction] 96 % DO Baljit House Work Phone: [facility] 08-13-2023 10:02-0400 Systolic blood pressure 121 mm[Hg] DO Baljit House Work Phone: [facility] 07-21-2023 09:16-0400 Body height 182.9 cm Pattie Shendge V, PA Work Phone: [employer] 07-21-2023 09:16-0400 Body mass index (BMI) [Ratio] 55.2 kg/m2 Pattie Shendge V, PA Work Phone: [employer] [facility] 07-21-2023 09:16-0400 Body weight 184.61 kg Pattie Shendge V, PA Work Phone: [facility] 07-21-2023 09:16-0400 Heart rate 85 /min Pattie Shendge V, PA Work Phone: [facility] 07-21-2023 09:16-0400 Respiratory rate 16 /min Pattie Shendge V, PA Work Phone: [facility] 07-07-2023 13:25-0500 Body height 185.42 cm DO Baljit House Work Phone: [facility] 07-07-2023 13:25-0500 Body mass index (BMI) [Percentile] Per age and sex 99.9 % DO Baljit House Work Phone: [facility] 07-07-2023 13:25-0500 Body mass index (BMI) [Ratio] 53.1 kg/m2 DO Baljit House Work Phone: [facility] 07-07-2023 13:25-0500 Body weight 182.79 kg DO Baljit House Work Phone: [facility] 07-07-2023 13:25-0500 Diastolic blood pressure 82 mm[Hg] DO Baljit House Work Phone: [facility] 07-07-2023 13:25-0500 Heart rate 97 /min DO Baljit House Work Phone: [facility] 07-07-2023 13:25-0500 SaO2% (BldA) [Mass fraction] 98 % DO Baljit House Work Phone: [facility] 07-07-2023 13:25-0500 Systolic blood pressure 126 mm[Hg] DO Baljit House Work Phone: [facility] 05-26-2023 14:15-0500 Body height 185.42 cm Imad Asaad Other [facility] 05-26-2023 14:15-0500 Body mass index (BMI) [Ratio] 51.45 kg/m2 Imad Asaad Other [employer] Other 05-26-2023 14:15-0500 Body weight 176.9 kg Imad Asaad Other [facility] 04-21-2023 13:45-0500 Body height 185.42 cm Imad Asaad Other [employer] Other 04-21-2023 13:45-0500 Body mass index (BMI) [Ratio] 51.84 kg/m2 Imad Asaad Other [employer] Other 04-21-2023 13:45-0500 Body weight 178.26 kg Imad Asaad Other [employer] Other 04-21-2023 13:45-0500 Diastolic blood pressure 82 mm[Hg] Imad Asaad Other [employer] Other 04-21-2023 13:45-0500 Systolic blood pressure 147 mm[Hg] Imad Asaad Other [employer] Other 03-19-2023 13:00-0500 Body height 185.42 cm Imad Asaad Other [employer] Other 03-19-2023 13:00-0500 Body mass index (BMI) [Ratio] 51.87 kg/m2 Imad Asaad Other [employer] Other 03-19-2023 13:00-0500 Body weight 178.36 kg Imad Asaad Other [employer] Other 03-19-2023 13:00-0500 Diastolic blood pressure 68 mm[Hg] Imad Asaad Other [employer] Other 03-19-2023 13:00-0500 Systolic blood pressure 76 mm[Hg] Imad Asaad Other [employer] Other 02-04-2022 10:55-0400 Body height 179.07 cm Devika King Other [employer] Other 02-04-2022 10:55-0400 Body mass index (BMI) [Ratio] 44.55 kg/m2 Devika King Other [employer] Other 02-04-2022 10:55-0400 Body temperature 97.5 [degF] Devika King Other [employer] Other 02-04-2022 10:55-0400 Body weight 142.88 kg Devika King Other [employer] Other 02-04-2022 10:55-0400 Respiratory rate 18 /min Devika King Other [employer] Other 02-04-2022 10:55-0400 SaO2% (BldA) [Mass fraction] 97 % Devika Kunzler Other [employer] Other Encounters Encounter Date Encounter Type Care Provider Facility Start: 03-22-2024 Non-patient / Non-visit Leatha Diaz APRN Work Phone: [facility] G[facility] Work Phone: Start: 03-22-2024 End: 03-22-2024 Admission to same day surgery center Leatha Diaz APRN Work Phone: [facility] Work Phone: Start: 03-22-2024 End: 03-22-2024 ambulatory Leatha Diaz Facility:[facility] Start: 02-25-2024 End: 02-25-2024 ambulatory [facility] [place] Work Phone: Start: 02-25-2024 End: 02-25-2024 Patient encounter procedure [facility] Work Phone: Start: 02-09-2024 End: 02-09-2024 ambulatory [facility] Work Phone: Start: 02-09-2024 End: 02-09-2024 Patient encounter procedure [facility] Work Phone: Start: 01-28-2024 End: 01-28-2024 ambulatory [facility] Work Phone: Start: 01-28-2024 End: 01-28-2024 Patient encounter procedure [facility] Work Phone: Start: 01-26-2024 End: 01-26-2024 ambulatory [facility] Start: 01-24-2024 End: 01-24-2024 Emergency department patient visit [facility] Start: 01-22-2024 End: 01-23-2024 [facility] Start: 01-21-2024 End: 01-21-2024 Emergency department patient visit [facility] Start: 12-31-2023 End: 12-31-2023 ambulatory [facility] Work Phone: Start: 12-31-2023 End: 12-31-2023 Patient encounter procedure [facility] Work Phone: Start: 12-15-2023 End: 12-15-2023 ambulatory [facility] Work Phone: Start: 12-15-2023 End: 12-15-2023 Patient encounter procedure [facility] Work Phone: Start: 12-09-2023 End: 12-09-2023 ambulatory [facility] Work Phone: Start: 12-09-2023 End: 12-09-2023 Patient encounter procedure [facility] Work Phone: Start: 11-09-2023 End: 11-09-2023 ambulatory MARKET RESEARCH COORDINATOR Leatha Emily Work Phone: [facility] Work Phone: Start: 11-09-2023 End: 11-09-2023 Patient encounter procedure REUBEN Diaz Work Phone: [facility] Work Phone: Start: 10-30-2023 End: 10-31-2023 [facility] Start: 10-22-2023 End: 10-22-2023 ambulatory MARKET RESEARCH COORDINATORJyoti Diaz Work Phone: [facility] Work Phone: Start: 10-22-2023 End: 10-22-2023 Patient encounter procedure REUBEN Jamilfer Emily Work Phone: [facility] Work Phone: Start: 10-12-2023 End: 10-12-2023 ambulatory MARKET RESEARCH COORDINATOR Leathasudheer Diaz Work Phone: [facility] Work Phone: Start: 10-12-2023 End: 10-12-2023 Patient encounter procedure MARKET RESEARCH COORDINATORJyoti JamilLeatha Emily Work Phone: [facility] Work Phone: Start: 10-07-2023 End: 10-08-2023 Emergency department patient visit BALJIT P [facility] Start: 09-25-2023 End: 09-25-2023 ambulatory BALJIT P [facility] Start: 09-24-2023 End: 09-24-2023 Patient encounter procedure REUBEN Zhang Emily Work Phone: [facility] Work Phone: Start: 09-10-2023 End: 09-10-2023 Patient encounter procedure MARKET RESEARCH COORDINATORJyoti Zhang Emily Work Phone: [facility] Work Phone: Start: 08-27-2023 End: 08-27-2023 ambulatory REUBEN Zhang Emily Work Phone: [facility] Work Phone: Start: 08-27-2023 End: 08-27-2023 Patient encounter procedure MARKET RESEARCH COORDINATORJyoti Zhang Emily Work Phone: [facility] Work Phone: Start: 08-19-2023 End: 08-19-2023 ambulatory MARKET RESEARCH COORDINATORJyoti Zhang Emily Work Phone: [facility] Work Phone: Start: 08-19-2023 End: 08-19-2023 Patient encounter procedure MARKET RESEARCH COORDINATOR Leatha Emily Work Phone: [facility] Work Phone: Start: 08-13-2023 End: 08-13-2023 Patient encounter procedure DO Baljit House Work Phone: [facility] [place] Work Phone: Start: 08-13-2023 End: 08-13-2023 ambulatory DO Baljit House Work Phone: [facility] Work Phone: Start: 08-13-2023 End: 08-13-2023 ambulatory DO Baljit House Work Phone: [facility] Work Phone: Start: 08-13-2023 End: 08-13-2023 Patient encounter procedure DO Baljit Pisano Work Phone: [facility] Work Phone: Start: 08-07-2023 Non-patient / Non-visit DO Baljit Pisano Work Phone: [facility] Work Phone: Start: 07-21-2023 End: 07-21-2023 ambulatory PATTIE SHENDGE V [facility] Start: 07-21-2023 End: 07-21-2023 Office outpatient new 30 minutes Pattie Shendge PA Work Phone: [facility] Comment on above: Positive TENA (antinu clear antibody) (Primary Dx); Chronic fatigue; Pain in both hands; Bilateral carpal tunnel syndrome Start: 07-21-2023 End: 07-21-2023 ambulatory PATTIE SHENDGE V [facility] Start: 07-08-2023 Non-patient / Non-visit DO Baljit Pisano Work Phone: [facility] Work Phone: Start: 07-07-2023 End: 07-07-2023 Patient encounter procedure DO Baljit Pisano Work Phone: [facility] Work Phone: Start: 06-30-2023 End: 07-01-2023 Emergency department patient visit SANJAY WEBSTER [facility] Start: 05-26-2023 End: 05-26-2023 ambulatory Imad Asaad Other [facility] [employer] Other Start: 05-26-2023 Office outpatient visit 25 minutes Imad Asaad [facility] Start: 05-26-2023 End: 05-26-2023 Patient encounter procedure DO Baljit House Work Phone: [facility]- Start: 05-19-2023 End: 05-19-2023 Patient encounter procedure DO Baljit House Work Phone: [facility] [address] Work Phone: Start: 05-19-2023 End: 05-19-2023 ambulatory DO Baljit House Work Phone: [facility] Work Phone: Start: 04-29-2023 End: 04-30-2023 ambulatory BALJIT P HOUSE Facility:[facility] Start: 04-27-2023 End: 04-27-2023 ambulatory Imad Asaad Other [facility] [employer] Other Start: 04-27-2023 Telephone encounter Imad Asaad [facility] Start: 04-21-2023 End: 04-21-2023 Patient encounter procedure DO Baljit House Work Phone: [facility] [place] Work Phone: Start: 04-21-2023 End: 04-21-2023 ambulatory DO Balijt House Work Phone: [facility] Work Phone: Start: 04-21-2023 Office outpatient new 45 minutes Imad Asaad [facility] Start: 04-07-2023 End: 04-08-2023 ambulatory BALJIT P HOUSE Facility:[facility] Start: 04-01-2023 End: 04-01-2023 Patient encounter procedure DO Baljit House Work Phone: [facility] Work Phone: Start: 04-01-2023 End: 04-01-2023 ambulatory DO Baljit House Work Phone: [facility] Work Phone: Start: 03-23-2023 End: 03-23-2023 ambulatory Imad Asaad Other [employer] Other Start: 03-23-2023 Telephone encounter Imad Asaad [facility] Start: 03-19-2023 Office outpatient new 45 minutes Imad Asaad [facility] Start: 03-19-2023 End: 03-19-2023 ambulatory DO Baljit Pisano Work Phone: [employer] Other Start: 03-19-2023 End: 03-19-2023 Patient encounter procedure DO Baljit House Work Phone: [facility] [place] Work Phone: Start: 02-12-2023 End: 02-13-2023 ambulatory BALJIT PISANO [facility] Start: 01-28-2023 End: 01-29-2023 ambulatory BALJIT PISANO Facility:[facility] Start: 01-09-2023 End: 01-10-2023 ambulatory BALJIT PISANO [facility] Start: 01-07-2023 End: 01-08-2023 ambulatory BALJIT PISANO Facility:[facility] Start: 12-31-2022 End: 01-01-2023 ambulatory BALJIT PISANO [facility] Start: 12-30-2022 End: 12-31-2022 ambulatory Rafita Stover MD Facility:[facility] Start: 09-19-2022 End: 09-20-[address] BALJIT PISANO Facility:[facility] Start: 09-15-2022 End: 09-16-[address] BALJIT PISANO Facility:[facility] Start: 07-03-2022 End: 07-04-[address] BALJIT PISANO Facility:[facility] Start: 02-04-2022 End: 02-04-2022 ambulatory Devika King Other [employer] Other Start: 02-04-2022 Office outpatient new 30 minutes Devika King [facility] Start: 12-25-2017 End: 12-26-2017 Patient encounter BALJIT PISANO [facility] Procedures Date Procedure Procedure Detail Performing Clinician Start: 03-22-2024 Esophagogastroduodenoscopy Leatha mcgrath APRN Work Phone: Start: 05-19-2023 Radiography of thoracic spine DO Baljit [place] Work Phone: Start: 05-19-2023 X-ray of both knees DO Baljit [place] Work Phone: Start: 04-01-2023 Ultrasound elastography of liver DO [facility] Work Phone: Plan of Treatment Date Care Activity Detail Author Start: 01-03-2026 DTaP,Tdap and Td Vaccines (7 - Td or Tdap) DTaP,Tdap and Td Vaccines (7 - Td or Tdap) [facility] Start: 07-20-2024 Adult BMI Screening Adult BMI Screen ing [facility] Start: 07-20-2024 Tobacco Screening Tobacco Screening [facility] Start: 03-22-2024 [facility] Start: 01-28-2024 Patient referral [facility] Work Phone: Start: 10-22-2023 End: 10-22-2023 Telemedicine consultation with patient 10/22/2023 9:30 AM EDT Telemedicine [facility] [address] [place] [phone] [place] [address] [place] [phone] [facility] Start: 08-13-2023 Patient referral [facility] Work Phone: Start: 08-13-2023 Insulin [Units/volum e] in Serum or Plasma [facility] Start: 07-21-2023 End: 07-20-2024 [facility] Neurology Routine Pain in both hands Bilateral carpal tunnel syndrome Expected: 07/21/2023 (Approximate), Expires: 07/20/2024 [facility] Work Phone: Comment on above: Expected: 07/21/2023 (Approximate), Expires: 07/20/2024 Start: 07-21-2023 End: 07-20-2024 XR Bones Limited Survey Views [facility] Comment on above: Expected: 07/21/2023 , Expires: 07/20/2024 Start: 05-19-2023 Hemolytic complement CH50 level [facility] Start: 05-19-2023 VICE PRESIDENT RESEARCH antibody measurement [facility] Start: 05-19-2023 [facility] Start: 04-01-2023 [facility] Start: 01-09-2023 Influenza vaccination Influenza Vacc ine [facility] Start: 07-11-2021 Adult BMI Follow Up Plan Adult BMI Follow Up Plan [facility] Start: 2015 Depression Screening Depression Scre ening [facility] Actin smooth muscle IgG Ab [Units/volume] in Serum [facility] Alpha 1 antitrypsin [Mass/volume] in Serum or Plasma [facility] Alpha 1 antitrypsin phenotyping [Identifier] in Serum or Plasma by Immunofixation [facility] Ceruloplasmin [Mass/volume] in Serum or Plasma [facility] CT Abdomen and Pelvi s WO and W contrast IV [facility] CT Abdomen WO and W contrast IV [facility] Fibrillarin Ab [Presence] in Serum [facility] Hemoglobin.gastroint jhon nal [Presence] in Stool [facility] Hepatitis A virus antibody, IgM type [facility] Hepatitis B core antibody measurement [facility] Hepatitis B core antibody measurement, IgM type [facility] Hepatitis B virus DN A [#/volume] (viral load) in Serum or Plasma by GITA with probe detection [facility] Hepatitis B virus DN A [log units/volume] (viral load) in Serum or Plasma by GITA with probe detection [facility] Hepatitis B virus DN A [Units/volume] (viral load) in Serum or Plasma by GITA with probe detection [facility] Hepatitis B virus surface Ab [Presence] in Serum [facility] Hepatitis B virus surface Ab [Units/volume] in Serum [facility] Hepatitis B virus surface Ag [Presence] in Serum or Plasma by Immunoassay [facility] Hepatitis C virus Ig G Ab [Presence] in Serum or Plasma by Immunoassay [facility] HFE gene mutations f ound [Identifier] in Blood or Tissue by Molecular genetics method Nominal [facility] Homogenous nuclear A b pattern [Titer] in Serum [facility] IgG [Mass/volume] in Serum or Plasma [facility] Lipoprotein a [Moles/volume] in Serum or Plasma [facility] Mitochondria M2 IgG Ab [Units/volume] in Serum [facility] Nuclear Ab [Titer] i n Serum [facility] Patient Education Hemorrhoids (D C) Esophagitis Know your Meds [facility] Work Phone: Patient referral [facility] Work Phone: PM-SCL extractable nuclear Ab [Mass/volume] in Serum by Immune diffusion (ID) [facility] RNA polymerase III I gG Ab [Units/volume] in Serum or Plasma by Immunoassay [facility] Th-To Ab [Units/volu me] in Serum by Line blot [facility] Immunizations Immunization Date Immunization Notes Care Provider [facility] 12-14-2020 meningococcal oligosaccharide (groups A, C, Y and W-135) diphtheria toxoid conjugate vaccine (MCV4O) DO [employer] Work Phone: [facility] 01-04-2016 meningococcal oligosaccharide (groups A, C, Y and W-135) diphtheria toxoid conjugate vaccine (MCV4O) DO [employer] Work Phone: [facility] 01-04-2016 tetanus toxoid, redu sia diphtheria toxoid, and acellular pertussis vaccine, adsorbed REUBEN Diaz Work Phone: [facility] 01-18-2015 meningococcal oligosaccharide (groups A, C, Y and W-135) diphtheria toxoid conjugate vaccine (MCV4O) DO [employer] Work Phone: [facility] 01-18-2015 tetanus toxoid, redu sia diphtheria toxoid, and acellular pertussis vaccine, adsorbed REUBEN Diaz Work Phone: [facility] 12-29-2013 poliovirus vaccine, inactivated DO [facility] Work Phone: [facility] 07-20-2013 diphtheria, tetanus toxoids and acellular pertussis vaccine DO [facility] Work Phone: [facility] 07-20-2013 hepatitis A vaccine, pediatric/adolescent dosage, 2 dose schedule DO [facility] Work Phone: [facility] 04-15-2013 hepatitis B vaccine, pediatric or pediatric/adolescent dosage DO [facility] Work Phone: [facility] 04-15-2013 poliovirus vaccine, inactivated DO [facility] Work Phone: [facility] 04-15-2013 varicella virus vaccine DO Nigel [facility] Work Phone: [facility] 01-17-2013 diphtheria, tetanus toxoids and acellular pertussis vaccine DO [facility] Work Phone: [facility] 01-17-2013 hepatitis B vaccine, pediatric or pediatric/adolescent dosage DO [facility] Work Phone: [facility] 01-17-2013 measles, mumps and rubella virus vaccine DO [facility] Work Phone: [facility] 01-17-2013 poliovirus vaccine, inactivated DO [facility] Work Phone: [facility] 12-28-2012 hepatitis A vaccine, pediatric/adolescent dosage, 2 dose schedule DO [facility] Work Phone: [facility] 12-14-2012 diphtheria, tetanus toxoids and acellular pertussis vaccine DO [facility] Work Phone: [facility] 12-14-2012 hepatitis B vaccine, pediatric or pediatric/adolescent dosage DO [facility] Work Phone: [facility] 12-14-2012 measles, mumps and rubella virus vaccine DO [facility] Work Phone: [facility] 12-14-2012 poliovirus vaccine, inactivated DO [facility] Work Phone: [facility] 12-14-2012 varicella virus vaccine DO [facility] Work Phone: [facility] 2003 diphtheria, tetanus toxoids and acellular pertussis vaccine, unspecified formulation DO [facility] [place] Work Phone: [facility] 2003 haemophilus influenz ae type b conjugate and Hepatitis B vaccine DO [facility] [place] Work Phone: [facility] 2003 pneumococcal conjuga te vaccine, 7 valent DO [facility] Work Phone: [facility] 2003 poliovirus vaccine, inactivated DO [facility] Work Phone: [facility] Payers Date Payer Category Payer [employer] ( and others) [id number] 03-19-2023 Self-pay [id number] 12-31-2022 [employer] ( [employer] others) [id number] 12-31-2022 [employer] ( and others) [id number] 05-11-2017 [employer] ( and others) [facility] [id number] 05/11/2017-Present [phone] [facility] [address] [place] [address] [id number] 05-11-2017 [employer] ( and others) [id number] 11-25-2012 [employer] ( and others) [id number] 2003 Unknown [id number] 2.16.840.1.658137.3.579.2. 593 2003 Unknown [id number] 2.16.840.1.435395.3.579.2. 593 2003 Unknown [id number] 2.16.840.1.995484.3.579.2. 593 2003 Unknown [id number] 2.16.840.1.325015.3.579.2. 718 2003 Unknown [id number] 2.16.840.1.240309.3.579.2. 718 2003 Unknown [id number] 2.16.840.1.120129.3.579.2. 718 2003 Unknown [id number] 2.16.840.1.170868.3.579.2. 718 2003 Unknown [id number] 2.16.840.1.936132.3.579.2. 718 2003 Unknown [id number] 2.16.840.1.209198.3.579.2. 718 2003 Unknown [id number] 2.16.840.1.740677.3.579.2. 718 2003 Unknown [id number] 2.16.840.1.135683.3.579.2. 718 2003 Unknown [id number] 2.16.840.1.797405.3.579.2. 718 2003 Unknown [id number] 2.16.840.1.862074.3.579.2. 1286 2003 Unknown [id number] 2.16.840.1.669716.3.579.2. 128 2003 Unknown [id number] 2.16.840.1.537499.3.579.2. 1286 2003 Unknown [id number] 2.16.840.1.489495.3.579.2. 128 2003 Unknown [id number] 2.16.840.1.221646.3.579.2. 1286 2003 Unknown [id number] 2.16.840.1.034137.3.579.2. 1286 2003 Unknown [id number] 2.16.840.1.057244.3.579.2. 1286 2003 Unknown [id number] 2.16.840.1.155441.3.579.2. 1286 2003 Unknown [id number] 2.16.840.1.391360.3.579.2. 1286 2003 Unknown [id number] 2.16.840.1.728239.3.579.2. 1286 2003 Unknown [id number] 2.16.840.1.402537.3.579.2. 1286 2003 Unknown [id number] 2.16.840.1.865646.3.579.2. 1286 05-11-1961 [employer] ( and others) [id number] 05-11-1961 [employer] ( and others) [id number] Unknown [id number] 2.16.840.1.414000.3.579.2. 531 Unknown [id number] 2.16840.1.079389.3.579.2. 531 Unknown [id number] 2.16840.1.738557.3.579.2. 531 Unknown [id number] 2.16840.1.849145.3.579.2. 531 Unknown [id number] 2.16840.1.300811.3.579.2. 531 Social History Date Type Detail Facility Unknown if ever smoked [facility] Other Start: 06-21-2020 End: 07-21-2023 [facility] Start: 2003 Sex Assigned At Male [facility] Start: 02-20-2022 End: 12-31-2023 Tobacco smoking status NHIS Never smoked tobacco [facility] Start: 02-20-2022 Tobacco use and exposure Smokeless tobacco non-user [facility] Start: 07-21-2023 Alcohol intake Ex-drinker (finding) [facility] Start: 06-21-2020 End: 07-21-2023 History of Social function [facility] Childcare Unknown [facility] Start: 2003 Sex Assigned At Not on file P [facility] Start: 03-22-2024 Sex Male (finding) [facility] Goals Date Patient Goal Desired Activity /State Clinical Notes 02-04-2022 to 03-22-2024 Note Date & Type Note Facility 03-22-2024 Procedure note [facility] 03-22-2024 History and physical note [facility] 03-11-2024 History and physical note Note Date/Time March 22, 2024 10:12am [facility] [address] [place] [address] Gastroenterology H&P Signed Patient: Ta Duncan MR#: [id number] : 2005 Acct:[id number] Age/Sex: 18 / M Adm Date: 4 Loc: Room: Type: [facility] Attending Dr: Wilver Felton MD Copies to: MD Leatha Ribeiro APRN, [employer] GOODS INSPECTOR~ Date of Service: 03/22/2024 HISTORY & PHYSICAL: Patient's history with special attention to the cardiovascular, pulmonary systems and the current problem was reviewed with the patient immediately prior to the procedure. Present medications and doses reviewed in the EMR. Allergies and pertinent laboratory tests were also reviewedat this time in the EMR. The physical examination, as below, was then performed. Indication, assessment and HPI: 18-year-old man here for EGD for evaluation of abdominal pain heartburn and intermittent vomiting and colonoscopy for evaluation of change in bowel habits Family history of GI malignancy? No PHYSICAL EXAMINATION General appearance: NAD Skin: No jaundice Head: NC/AT Eyes: Anicteric Neck: Supple Lungs: Normal respiratory effort, no use of accessory muscles Abdomen: nondistended Neuro: Ox3. REVIEW OF SYSTEMS Constitutional: Denies malaise, fevers Cardiovascular: Denies chest pain, palpitations Respiratory: Denies shortness of breath, wheezing Gastrointestinal: As per HPI Genitourinary: Denies dysuria, polyuria Musculoskeletal: Denies joint swelling, joint stiffness Neurological: Denies confusion, numbness, tingling Endocrine: Denies fatigue Written informed consent obtained from the patient. Risks (including but not limited to perforation, infection, bloating, bleeding, need for emergent surgeryand loss of life), benefits and alternatives explained and questions answered. The patient verbalized understanding. Based on history patient is an appropriate candidate for the procedure. Wilver Felton M.D. Documented By: Wilver Felton MD 03/22/24 1010 Signed By: <Electronically signed by Wilver Felton MD> 03/22/24 1012 [facility] Work Phone: 1(847) 216-220410-01-2024 Evaluation note* Author Kareem Tijerina [facility] Authored February 09, 2024 8: 48am Highest weight: 407.5 lbs. U p 16.3lbs Start weight: 407.5 lbs. he is up 16.3 lbs. today with a weight of 423.8 lbs. He is up 19.2 lbs since last visit 12/09/2023. Starting Date: 08-13-2023. 1. Abnormal weight gain. He is a big strong individual. He continues strength training. He does not have any family history from his dad and his dad side of the family. He has obesity and his maternal grandfather, maternal grandmother and maternal aunt. He denies a family history of type 2 diabetes. 2. Obesity-improved initially with Ozempic sample having recent issues with some GI cramping and some blood in his stool for which she will be seeing GI. His screening metabolic rate was 2620. 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 He could consider compounded semaglutide in the future, but currently not affordable. He should consider bariatric surgery in the future. He has history of bipolar disorder so would have to be careful with considering phentermine, Topamax or Wellbutrin. He is a big strong individual and we want to make sure we protect his muscle mass. He understands the risk of eating a highly processed diet. 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 6. 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 Follow up with me in 6-8 weeks. New labs needed: Up-to-date. Monitor cholesterol profile, ALT with treatment. Salivary cortisol x 2 ordered. [facility] Work Phone: 1(769) 843-659608-06-2024 Evaluation note* Author Molly Kulkarni [facility] Authored December 15, 2023 9:4 0am Patient [...] the results will be discussed with the [employer] Driver. 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 6. 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 Salivary cortisol x 2 ordered. [facility] Work Phone: 1([phone]) 507-463808-06-2024 Evaluation note* Author Molly Kulkarni [facility] Authored December 15, 2023 9:4 0am Patient [...] the results will be discussed with the [employer] Driver. 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 6. 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 Salivary cortisol x 2 ordered. Author Zaida Frias [facility] Authored February 09, 2024 9: 20am Highest weight: 407.5 lbs. U p 16.3lbs Start weight: 407.5 lbs. he is up 16.3 lbs. today with a weight of 423.8 lbs. He is up 19.2 lbs since last visit 12/09/2023. Starting Date: 08-13-2023. 1. Abnormal weight gain. 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 6. 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 Salivary cortisol x 2 ordered. [facility] Work Phone: 1([phone]) 814-762008-06-2024 Evaluation note* Author Molly Kulkarni [facility] Authored December 15, 2023 9:4 0am Patient [...] the results will be discussed with the [employer] Driver. 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 6. 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 Salivary cortisol x 2 ordered. Author Kareem Tijerina [facility] Authored February 09, 2024 9: 48am Highest weight: 407.5 lbs. U p 16.3lbs Start weight: 407.5 lbs. he is up 16.3 lbs. today with a weight of 423.8 lbs. He is up 19.2 lbs since last visit 12/09/2023. Starting Date: 08-13-2023. 1. Abnormal weight gain. He is a big strong individual. He continues strength training. He does not have any family history from his dad and his dad side of the family. He has obesity and his maternal grandfather, maternal grandmother and maternal aunt. He denies a family history of type 2 diabetes. 2. Obesity-improved initially with Ozempic sample having recent issues with some GI cramping and some blood in his stool for which she will be seeing GI. His screening metabolic rate was 2620. 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 He could consider compounded semaglutide in the future, but currently not affordable. He should consider bariatric surgery in the future. He has history of bipolar disorder so would have to be careful with considering phentermine, Topamax or Wellbutrin. He is a big strong individual and we want to make sure we protect his muscle mass. He understands the risk of eating a highly processed diet. 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 6. 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 Follow up with me in 6-8 weeks. New labs needed: Up-to-date. Monitor cholesterol profile, ALT with treatment. Salivary cortisol x 2 ordered. 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 He notes in high school he put on a lot of weight but was active in 3 sports but had a very poor diet at home and had a job so could go by his own fast foods. He notes nothing healthy . He notes that the beginning he started a keto diet and during [...] on a mood stabilizing medication. 6. 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 6. 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 6. 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 Salivary cortisol x 2 ordered/pending. 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 6. 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 Author Molly Shad [facility] Authored December 15, 2023 9:4 0am Patient [...] the results will be discussed with the [employer]ump[employer] Driver. 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 6. 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 Salivary cortisol x 2 ordered. 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 I am sending him to [facility] for evaluation and treatment. If he truly has bipolar disorder we could not consider an antidepressant unless he was on a mood stabilizing medication. 6. 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 Handout given. Our free weekly [...] and benefits of prescribed meds discussed. Initial bprw-hq-osms interview/evaluation. The patient was counseled in detail on the options for weight loss in an individual setting. 55 minutes was spent caring for the patient, counseling/educating patient on the options for the treatment of obesity and related healthcare issues. The program's treatment goals were reviewed with the patient. Each aspect of the program was discussed with the patient. 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 6. 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 Handout given. Our free weekly [...] and benefits of prescribed meds discussed. Initial xdms-be-xewl interview/evaluation. The patient was counseled in detail on the options for weight loss in an individual setting. 55 minutes was spent caring for the patient, counseling/educating patient on the options for the treatment of obesity and related healthcare issues. The program's treatment goals were reviewed with the patient. Each aspect of the program was discussed with the patient. 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 6. 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 Salivary cortisol x 2 ordered/pending. 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 6. 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 Handout given. Our free weekly [...] and benefits of prescribed meds discussed. Initial bmgo-jw-dwsz interview/evaluation. The patient was counseled in detail on the options for weight loss in an individual setting. 55 minutes was spent caring for the patient, counseling/educating patient on the options for the treatment of obesity and related healthcare issues. The program's treatment goals were reviewed with the patient. Each aspect of the program was discussed with the patient. 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 6. 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 6. 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 Salivary cortisol x 2 ordered/pending. 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 His PCP is Leatha Rohrbacher. He was sent for sleep study but [...] on a mood stabilizing medication. 6. 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 Handout given. Our free weekly [...] and benefits of prescribed meds discussed. Initial jwzd-wa-laae interview/evaluation. The patient was counseled in detail on the options for weight loss in an individual setting. 55 minutes was spent caring for the patient, counseling/educating patient on the options for the treatment of obesity and related healthcare issues. The program's treatment goals were reviewed with the patient. Each aspect of the program was discussed with the patient. 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 6. 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 6. 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 Salivary cortisol x 2 ordered/pending. [facility] Work Phone: [phone]) 796-554603-12-2024 History of Present illness Narrative* ERLINDA Cooper - 07/21/2023 9:30 AM EDT Images from the original note were not included. [id number] [address] Date of Service: 07/21/2023 Thank you for [...] 02/20/2022 Performed by Dean Atkins DO at [facility] reviewed. Social History Tobacco Use Smoking status: Never Smokeless tobacco: Never Vaping Use Vaping Use: Never used Substance Use Topics Alcohol use: Not Currently Drug use: Never reviewed. Past Medical History: Diagnosis Date Anxiety Bipolar disorder ([facility]) Depression Fractures Mood disorder ([facility]) reviewed. Social History Social History Narrative Not [...] [] Fever [x] Frequent Night Sweats [x]Fatigue: 3/ OPHTHALMOLOGIC: Admits: [] Glaucoma [] History or Current Inflammatory Eye Disease [] Cataracts ENT: Admits: [] Oral/Nasal Ulcers [] epistaxis [] Recurrent Sinusitis [] Dry Eyes [] Dry mouth CARDIOVASCULAR: Admits: [x] Chest pain: went to ER [facility], did EKG, concluded as a muscle cramp [...] CK was normal urine exam was normal VICE PRESIDENT RESEARCH, anti Newberry antibody, scleroderma 70 antibody, complement C3-C4, centromere antibodies, p.m. Scl antibody, andree p.m. Scl antibody, anti dsDNA antibody, U3 VICE PRESIDENT [employer]EARCH were all negative/ normal THC you antibody, [...] or corrected. Thank you for your understanding. [facility] Pattie Cox PA-C [address] [place] [address] Office [phone] ERLINDA Cooper 07/21/23 [id number] ERLINDA Cooper 07/21/23 [id number] [facility]* Encounter Date Diagnosis Assessment Notes Treatment Notes Treatment Clinical Notes May, Elevated LFTs (ICD-10 - R79.89) The liver studies are all within normal limits. May, Fatty liver (ICD-10 - K76.0) Plan for repeat fibroscan in one year for routine surveillance. [facility] Other 12-12-2023 Evaluation note* Encounter Date Diagnosis Assessment Notes Treatment Notes Treatment Clinical Notes Apr, Fatty liver (ICD-10 - K76.0) Apr, Elevated LFTs (ICD-10 - R79.89) Apr, Hepatitis A test positive (ICD-10 - B15.9) Apr, Fatigue, unspecified type (ICD-10 - R53.83) [facility] Other 11-09-2023 Evaluation note* Encounter Date Diagnosis Assessment Notes Treatment Notes Treatment Clinical Notes Mar, Hepatitis A test positive (ICD-10 - B15.9) f/u after testing Mar, Elevated LFTs (ICD-10 - R79.89) Mar, Fatty liver (ICD-10 - K76.0) [facility] Other 09-27-2022 Evaluation note* Encounter Date Diagnosis [...] treatment plan. Patient left in stable condition [facility] Other Chief complaint+Reason for visit Narrative* Chief Complaint 1 Month Follow Up Stomach Issues Amb Documentation [place]-Referral Leatha Emily k76.0 r73.9 k76.0 Reason for Visit Family history of [place] shimoto thyroiditis Fatigue Fatty liver Multiple joint pain Obesities, morbid Sleep disturbance Vitamin D deficiency Abnormal weight gain Fatty liver Sleep disturbance Bipolar disorder [facility] Work Phone: Chief complaint+Reason for visit Narrative* Chief Complaint Stomach Issues Amb Documentation [place]-Referral Leatha Emily k76.0 r73.9 k76.0 chest congestion Reason for Visit Family history of [place] shimoto thyroiditis Fatigue Fatty liver Multiple joint pain Obesities, morbid Sleep disturbance Vitamin D deficiency Abnormal weight gain Fatty liver Sleep disturbance Bipolar disorder Bronchitis Maxillary sinusitis [facility] Work Phone: Chief complaint+Reason for visit Narrative* Chief Complaint Amb Documentation [place]-Referral Leatha Emily k76.0 r73.9 k76.0 chest congestion knee issues Mental concerns Reason for Visit Abnormal weight gain Fatty liver Sleep disturbance Bipolar disorder Bronchitis Maxillary sinusitis Adult BMI 50.0-59.9 kg/sq m Fatty liver Mixed hyperlipidemia Vitamin D deficiency Bipolar disorder Left knee pain Right knee pain Depression [facility] Work Phone: Chiga complaint+Reason for visit Narrative* Chief Complaint [place]-Referral Abelino schuster Emily k76.0 r73.9 k76.0 chest congestion knee issues Mental concerns 4 week follow up Reason for Visit Abnormal weight gain Fatty liver Sleep disturbance Bipolar disorder Bronchitis Maxillary sinusitis Adult BMI 50.0-59.9 kg/sq m Fatty liver Mixed hyperlipidemia Vitamin D deficiency Bipolar disorder Left knee pain Right knee pain Depression Adult BMI 50.0-59.9 kg/sq m Fatty liver Mixed hyperlipidemia Tachycardia Depression [facility] Work Phone: Evaluation noteNo assessment information available [facility] Work Phone: Evaluation noteNo InformationNort Favor Other Evaluation note* Diagnosis Positive TENA (antinuclear antibody)- Primary Other and unspecified nonspecific immunological findings Chronic fatigue Other malaise and fatigue Pain in both hands Bilateral carpal tunnel syndrome Carpal tunnel syndrome [facility] Author Zaida Frias [facility] Authored August 13, 2023 10:3 8am [...] Our exercise program was recommended with our gear setter/obesity exercise group. Handout given. Our free weekly [...] and benefits of prescribed meds discussed. Initial lmlg-gw-psxs interview/evaluation. The patient was counseled in detail on the options for weight loss in an individual setting. [ ] minutes was spent caring for the patient, counseling/educating patient on the options for the treatment of obesity and related healthcare issues. The program's treatment goals were reviewed with the patient. Each aspect of the program was discussed with the patient. [facility] Work Phone: History general Narrative - Reported* Type Description Date Medical History bi polar [facility] Other History general Narrative - Reported* Type Description Date Medical History bi polar Surgical History appendectomy [facility] Other History general Narrative - Reported* Type Description Date Medical History bi polar Surgical History appendectomy Hospitalization History see above [facility] Other Instructions* Attachments The following attachments cannot be sent through Care Everywhere. * Carpal tunnel syndrome (Greek) * Fibromyalgia (Greek) * Gabapentin, ADULT (Greek) * Duloxetine, ADULT (Greek) * Meloxicam, ADULT (Greek) documented in [facility] encounterOhio [facility]Fit[facility] SystemReason for visit Narrative PATIENT IS HERE AT THE REQUEST OF DR. PISANO FOR HEP INFECTION AND ELEVATED LIVER ENZYMES. US GALL BLADDER IN PT DOCS-LABS IN REFERRAL NOTESNort Favor Other Summary Purpose Family History Relationship Condition Age at Onset Recorded Date/T [...] thyroid Unknown mother Disorder of thyroid Unknown Relationship Condition Age at Onset Recorded Date/T priya father Unknown family medical history Unknown mother Fibromyalgia Unknown Disorder of thyroid Unknown Advance Directives Advance Directive Response Recorded Date/ Time Advance [...] Month Follow Up Stomach Issues Amb Documentation [place]-Referral Leatha Diaz Reason for Visit Family history of [place] shimoto thyroiditis Fatigue Fatty liver Multiple joint pain Obesities, morbid Sleep disturbance Vitamin D deficiency Chief Complaint M79.1 M25.50,R 76.0 UPPER BACK PAIN, KNEE PAIN FAT 1 Month Follow Up Stomach Issues Amb Documentation [place]-Referral Leatha Diaz k76.0 r73.9 k76.0 Reason for [...] Decreased appetite Left lower quadrant abdominal tenderness Chief Complaint 4 week follow up Metabolic testing cramping/blood in stool cyst still painful Reason for Visit Bronchitis Depression Adult BMI 50.0-59.9 kg/sq m Fatty liver Mixed hyperlipidemia Tachycardia Abdominal cramping Bloating Blood in stool Change in bowel habit Decreased appetite Left lower quadrant abdominal tenderness Chief Complaint Metabolic testing cramping/blood in stool cyst still painful Reason for Visit Adult BMI 50.0-59.9 kg/sq m Fatty liver Mixed hyperlipidemia Tachycardia Abdominal cramping Bloating Blood in stool Change in bowel habit Decreased appetite Left lower quadrant abdominal tenderness Bloating Blood in stool Change in bowel habit Pilonidal cyst Chief Complaint Metabolic testing cramping/blood in stool cyst still painful stomach pain Reason for Visit Adult BMI 50.0-59.9 kg/sq m Fatty liver Mixed hyperlipidemia Tachycardia Abdominal cramping Bloating Blood in stool Change in bowel habit Decreased appetite Left lower quadrant abdominal tenderness Bloating Blood in stool Change in bowel habit Pilonidal cyst Adult BMI 50.0-59.9 kg/sq m Fatty liver Mixed hyperlipidemia Chief Complaint Admit Date cramping/blood in stool December 30 10:28am cyst still painful January 28, 2024 10:22am stomach pain February 25, 2024 3 :28pm change in bowel habit/abd distension & p ain/melena March 22, 2024 9:36am change in bowel habit/abd distension & p ain/melena March 22, 2024 10:10am Reason for Visit Admit Date Abdominal cramping December 31, 2023 10 :28am Bloating December 31, 2023 10 :28am Blood in stool December 31, 2023 10 :28am Change in bowel habit December 31, 2023 10:28am Decreased appetite December 31, 2023 10 :28am Left lower quadrant abdominal tenderness December 31, 2023 10:28am Bloating January 28, 2024 10:22am Blood in stool January 28, 2024 10:22am Change in bowel habit January 27 10:22am Pilonidal cyst January 28, 2024 10:22am Adult BMI 50.0-59.9 kg/sq m February 09, 2024 8:55am Fatty liver February 09, 2024 8: 55am Mixed hyperlipidemia February 09, 2024 8 :55am Abdominal cramping February 25, 2024 3 :28pm Abdominal pain February 25, 2024 3 :28pm Bloating February 25, 2024 3 :28pm Blood in stool February 25, 2024 3 :28pm Change in bowel habit February 25, 2024 3:28pm Frequent nocturnal awakening February 3:28pm Morning headache February 25, 2024 3 :28pm Obesities, morbid February 25, 2024 3 :28pm Reason for Referral Specialty Diagnoses / Procedures Referred By Dhaval aparicio Referred To Contact Diagnoses Pain in both hands Bilateral carpal tunnel syndrome Procedures [facility] Pattie Cox V, ERLINDA [address] [facility] [address] [place] [address] Referral ID Status Reason Start Date Expiration Date V isits Requested Visits Authorized [id number] Pending Review 07/21/2023 07/20/2024 1 1 Reason [...] section and content) DATE CREATED AUTHOR 01/06/2018 [facility] DATE CREATED AUTHOR AUTHOR'S ORGANIZ ATION 04/19/2021 [facility] DATE CREATED AUTHOR AUTHOR'S ORGANIZ ATION 05/02/2021 [facility] DATE CREATED AUTHOR AUTHOR'S ORGANIZ ATION 09/22/2022 [facility] DATE CREATED AUTHOR AUTHOR'S ORGANIZ ATION 06/22/2023 [facility] DATE CREATED AUTHOR AUTHOR'S ORGANIZ ATION 01/25/2024 [facility] DATE CREATED AUTHOR AUTHOR'S ORGANIZ ATION 01/25/2024 [facility] DATE CREATED AUTHOR AUTHOR'S ORGANIZ ATION 01/28/2024 [facility] DATE CREATED AUTHOR AUTHOR'S ORGANIZ ATION 03/24/2024 [facility] REASON FOR VISIT (unrecogniz ed section and [...] Active Lewis Mirza MD Attending Provider Active Tourist Home Keeper Relationship Specialty Start Date End Date Baljit Pisano DO [address] [place] [address] PCP - General 01/07/17 Team Status: Active Member Role Status Dates Leatha Diaz APRN [employer]NAGERS-C Primary Care Provider Active Team Status: Inactive [...] Member Role Status Dates Leatha Diaz APRN [employer]NAG[employer]-C Primary Care Provider, Attending Provider Active Start: July 07, 2023 End: July 07, 2023 Team Status: Active Member Role Status Dates Leatha Diaz APRN [employer]-C Primary Care Provider, Attending Provider Active Start: July 08, 2023 Team Status: Active Member Role Status Dates Leatha Diaz APRN [employer]NAG[employer]-C Primary Care Provider Active Start: August 07, 2023 Montserrat Sterling Attending Provider Active Start: August 07, 2023 Team Status: Inactive Member Role Status Dates Leatha Diaz APRN [employer]-C Primary Care Provider Active Start: August 13, 2023 End: August 13, 2023 Kareem Tijerina MD Attending Provider Active Start: August 13, 2023 End: August 13, 2023 Team Status: Active Member Role Status Dates Leatha Diaz APRN [employer]NAG[employer]-C Primary Care Provider Active Start: August 07, 2023 Montserrat Sterling LPN Attending Provider Active S tart: August 07, 2023 Team Status: Inactive Member Role Status Dates Leatha Diaz APRN [employer]NAG[employer]-C Primary Care Provider Active Start: August 19, 2023 End: August 19, 2023 ROS Mireles Attending Provider Active Start: August 19, 2023 End: August 19, 2023 Team Status: Inactive Member Role Status Dates Leatha Diaz APRN [employer]-C Primary Care Provider, Attending Provider Active Start: August 27, 2023 End: August 27, 2023 Team Status: Inactive Member Role Status Dates Leatha Diaz APRN [employer]NAG[employer]-C Primary Care Provider Active Start: September 10, 2023 End: September 10, 2023 Kareem Tijerina MD Attending Provider Active Start: September 10, 2023 End: September 10, 2023 Team Status: Inactive Member Role Status Dates Leatha Diaz APRN [employer]NAG[employer]-C Primary Care Provider, Attending Provider Active Start: September 24, 2023 End: September 24, 2023 Team Status: Inactive Member Role Status Dates Leatha Diaz APRN [employer]NA[employer]-C Primary Care Provider, Attending Provider Active Start: October 12, 2023 End: October 12, 2023 Team Status: Active Member Role Status Dates Leatha Diaz APRN [employer]NAG[employer]-C Primary Care Provider Active Start: August 07, 2023 Montserrat Nelson LPN Attending Provider Active St art: August 07, 2023 Team Status: Inactive Member Role Status Dates Leatha Diaz APRN [employer]-C Primary Care Provider Active Start: October 22, 2023 End: October 22, 2023 Kareem Tijerina MD Attending Provider Active Start: October 22, 2023 End: October 22, 2023 Team Status: Inactive Member Role Status Dates Leatha Diaz APRN [employer]-C Primary Care Provider, Attending Provider Active Start: November 09, 2023 End: November 09, 2023 Team Status: Inactive Member Role Status Dates Leatha Diaz APRN [employer]NAG[employer]-C Primary Care Provider Active Start: December 09, 2023 End: December 09, 2023 Kareem Tijerina MD Attending Provider Active Start: December 09, 2023 End: December 09, 2023 Team Status: Inactive Member Role Status Dates Leatha Diaz APRN [employer]NAGERS-C Primary Care Provider Active Start: December 15, 2023 End: December 15, 2023 Kareem Tijerina MD Attending Provider Active Start: December 15, 2023 End: December 15, 2023 Team Status: Inactive Member Role Status Dates Leatha Diaz APRN [employer]-C Primary Care Provider, Attending Provider Active Start: December 31, 2023 End: December 31, 2023 Team Status: Inactive Member Role Status Dates Leatha Diaz APRN [employer]NAG[employer]-C Primary Care Provider, Attending Provider Active Start: January 28, 2024 End: January 28, 2024 Team Status: Inactive Member Role Status Dates Leahta Diaz APRN [employer]-C Primary Care Provider Active Start: February 09, 2024 End: February 09, 2024 Kareem Tijerina MD Attending Provider Active Start: February 09, 2024 End: February 09, 2024 Team Status: Inactive Member Role Status Dates Leatha Diaz APRN [employer]NAGERS-C Primary Care Provider, Attending Provider Active Start: February 25, 2024 End: February 25, 2024 Team Status: Inactive Member Role Status Dates Leatha Diaz APRN [employer]UC[employer]NAG[employer]-C Primary Care Provider Active Start: March 222023 End: March 22, 2024 Wilver Felton MD Attending Provider Active Start: March 22, 2024 End: March 22, 2024 Team Status: Active Member Role Status Dates Leatha Diaz APRN [employer]UC[employer]NAGERS-C Primary Care Provider Active Start: March 222023 Wilver Felton MD Attending Provider, Other Provider Active Start: March 22, 2024 Goals (unrecognized section and content) Goals may [...] BE BASED ON THE PRIMARY CLINICAL RECORDS. [email or web address] [facility]. provides no warranty or guarantee of the accuracy or completeness of information in this document.
== END 2024-03-28 10:46 | disposition home or self-care (01) ==
PROVIDERS: PCP Nurse Practitioner Family; Visit Provider Nurse Practitioner Family
DX: G47.33 Obstructive sleep apnea (adult) (pediatric) (principal)

== ENCOUNTER 2024-03-30 10:45 | Outpatient (OUT) | payer OTHER, SELFPAY ==
--- OUTSIDE RECORDS SUMMARY | 2024-04-04 08:14 | XMS_ITS | CCD ---
Author Organization [facility] Team Providers Care Log Loader Name Role Phone NAOMI ROD Unavailable Unavailable SELF, REFERRED Unavailable Unavailable HOUSE, BALJIT P Unavailable Unavailable HOUSE, BALJIT P Unavailable Unavailable BERRIN, NAOMI ANTUNEZ Unavailable Unavailable SELF, REFERRED Unavailable Unavailable Devika [...] Consulting Unavailable HOUSE, DR SMILEY Attending Unavailable [facility], DR SANJAY Gavin Consulting Unavailable Wilver Felton Unavailable House, DO Smiley Primary Care Provider [phone] MD Wilver Felton Attending Provider MD Lewis Mirza Attending Provider HOUSE, BALJIT Parker Primary Care Unavailable Rafita Stover MD Attending Unavailable HOUSE, BLAJIT P Admitting Unavailable HOUSE, BALJIT P Primary [...] Unavailable Rafita Stover MD Attending Unavailable House Baljit VALLE Primary Care Provider Norris, DO Smiley Primary Care Provider MD Lewis Mirza Attending Provider [phone] REUBEN Diaznifer Primary Care Provider MD Kareem Tijeirna Attending Provider ROSY Rocha, PATTIE Attending Unavailable HOUSE, BALJIT P Referring Unavailable [...] Primary Care Unavailable KERAFITA SHIRLEY Attending Unavailable KERAFITA SHIRLEY Referring Unavailable ROHRBACHER, LEATHA Primary Care Unavailable ROHRBACHER, LEATHA Primary Care Unavailable OUYARELY YOUNG Attending Unavailable ROHRBACHER, LEATHA Primary Care Unavailable NORRIS, BALJIT Primary Care Unavailable SANJAY WEBSTER Attending Unavailable SANJAY WEBSTER Attending Unavailable SANJAY WEBSTER Referring Unavailable ARLINGTON, ABLJIT Primary Care Unavailable LINDY LANGSTON Attending Unavailable ROHRBACHER, LEATHA Referring Unavailable ROHRBACHER, [facility] Primary Care Unavailable Rohrbacher FINISHING SUPERVISOR, [facility] Wilver Felton MD Attending Provider [phone] Asaad, Imad Attending Unavailable Norris, Baljit Primary Care Unavailable Asaad, Imad Admitting Unavailable Schertz, Baljit Primary Care Unavailable Lewis Mirza Admitting Unavailable Lewis Mirza Attending Unavailable Emily, Leatha Primary Care Unavailable Kareem Tijerina Admitting Unavailable Kareem Tijerina Attending Unavailable Asaariana, Wilver Attending Unavailable [facility] Primary Care Unavailable Asaad, Imad Admitting Unavailable Allergies Allergy Classification Reported Allergen(s) Allergy Type Date of Onset Reaction(s) Facility (1 source) [facility] ([facility] sources) Penicillin; Translations: [penicillin] Drug Allergy Unknown [facility] Repository (18 sources) Penicillins; Translations: [PENICILLINS] Propensity to adverse reactions to drug 7 [place] (2 sources) Penicillins Drug allergy (disorder) 4 [facility] Repository Medications Current Medications Medication Drug [...] tablet Discontinued 250 MG PO daily 6 5 November 08, 2023 11:00pm December 09, 2023 [...] 9:58am Start: 10-22-2023 take 1 capsule by mo [facility] once daily cholecalciferol (vitamin D3) Active 1 [...] times daily as needed for abdominal pain 30 February 24, 2024 11:00pm March 22, 2024 9:58am [...] 06/30/2023 Active take 2 tablets by mo [facility] twice daily at mealtime as needed [...] mg tablet Discontinued 50 MG PO Daily November 09, 2023 7:42am February 25, 2024 2:36pm Start: 10-12-2023 End: 11-09-2023 take 1 tablet by mouth once daily Sertraline 25 mg tablet Discontinued 25 MG PO Daily October 11, 2023 11:00pm November 09, 2023 [...] quadrant; Translations: [Left lower quadrant abdominal tenderness] Onset: 03-22-2024 12-31-2023 Episodic Cardiac dysrhythmias (18 sources) Tachycardia; [...] Translations: [Other chronic nonalcoholic liver disease] Onset: 08-13-2023 Chronic Other nervous system disorders (1 source) [...] By: Chavez Valentine on 03-23-2024 Pathology study [facility] Other Darnell 03-22-2024 L ---- Specimen: [id number] Received: 03/22/24 Status: MELECIO Little Num: [id number] Spec Type: Surgical Subm Dr: Wilver Felton MD Tissues: A Small Intestine - Biopsy/Polyp (SMALL BOWEL BX'S R/O CELIAC) B GASTRIC FOR HP (GASTRIC BX'S R/O H PYLORI) C Colon Biopsy (RANDOM COLON BX'S R/O MICRO ) Procedures: HE/6, Gross/Micro L4/3, H PYLORI Age/ Patient Sex Location Account Attending Physician Ta Duncan 18/M [id number] Wilver Felton MD SPEC NUM: [id number] RECD: 03/22/24 STATUS: MELECIO LITTLE NUM: [id number] OLEGARIO: 03/22/24 [facility] DR: Wilver Felton MD ENTERED: 03/22/[address] [facility] [address]: SPEC TYPE: Surgical DEPT: S ENTERED BY: [id number] RECV BY: [id number] ORDERED: HE/6, Gross/Micro L4/3, H PYLORI ORDERED: [...] submitted in a single cassette. (1, ns, [id number] A) NAOMI Specimen: [id number] Received: 03/22/24 Status: MELECIO Req Num: [id number] Spec Type: Surgical Subm Dr: Wilver Felton MD Tissues: A Small Intestine - Biopsy/Polyp (SMALL BOWEL BX'S R/O CELIAC) B GASTRIC FOR HP (GASTRIC BX'S R/O H PYLORI) C Colon Biopsy (RANDOM COLON BX'S R/O MICRO ) Procedures: HE/6, Gross/Micro L4/3, H PYLORI Patient: Ta Duncan [id number] (Continued) Specimen: [id number] Received: 03/22/24 (Continued) Gross Description (Continued) Signed (signature on file) Chavez Valentine MD 03/23/24 1501 Specimen: [id number] Received: 03/22/24 Status: MELECIO Little Num: [id number] Spec Type: Surgical Subm Dr: Wilver Felton MD Tissues: A Small Intestine - Biopsy/Polyp (SMALL BOWEL BX'S R/O CELIAC) B GASTRIC FOR HP (GASTRIC BX'S R/O H PYLORI) C Colon Biopsy (RANDOM COLON BX'S R/O MICRO ) Procedures: HE/6, Gross/Micro L4/3, H PYLORI Patient: Ta Duncan [id number] (Continued) Specimen: [id number] Received: 03/22/24 (Continued) Gross Description (Continued) Part B is received in formalin labeled with the patients name and gastric BX are two richards- waldrop, focally erythematous, friable, 0.3 cm each in greatest dimension tissue bits. The specimen is entirely submitted in a single cassette. (1, ns, [id number]) Part C is received in formalin labeled with the patients name and random colon BX'S are two richards-waldrop, focally erythematous, friable, 0.2 and 0.4 cm tissue bits. The specimen is entirely submitted in a single cassette. (1, ns, [id number] C) Microscopic Description A-C: Microscopic examination is performed. CPT Codes 75449 x3, 39085 Specimen: [id number] Received: 03/22/24 Status: MELECIO Little Num: [id number] Spec Type: Surgical Subm Dr: Wilver Felton MD Tissues: A Small Intestine - Biopsy/Polyp (SMALL BOWEL BX'S R/O CELIAC) B GASTRIC FOR HP (GASTRIC BX'S R/O H PYLORI) C Colon Biopsy (RANDOM COLON BX'S R/O MICRO ) Procedures: HE/6, Gross/Micro L4/3, H PYLORI (more content not included)... Normal [facility] XR CHEST [...] Owens MD on 10/30/2023 1:12 AM Normal [facility] Cholesterol [Mass/volume] in Serum or PlasmaOrdered By: Kareem Tijerina on 08-13-2023 Cholesterol [Mass/Vol] 162 mg/dL Normal 140-200 [facility] Comment on above: Chol less than 200 m g/dl low riskChol 201-239 mg/dl borderline riskChol 240 mg/dl and greater high risk Result Comment: Chol less than 200 mg/dl low risk Chol 201-239 mg/dl borderline risk Chol 240 mg/dl and greater high risk Performed By: #### M ITOM2, L-K MICRO, ALPHA PHEN, HEMOCHROM, CERULOP, TENA, IGG, SMAB #### [facility] , #### PARVEEN, TSH3 #### [facility] [address] [place] [address] Cholesterol in LDL Calc [Mas s/Vol]Ordered By: Kareem Tijerina on 08-13-2023 Cholesterol in LDL [Mass/Vol] 101 mg/dL High 0-100 [facility] Comment on above: LDL ATP III CLASSIFI CATIONLDL less than 100 mg/dL OptimalLDL 100-129 mg/dL Near or above optimalLDL 130-159 mg/dL Borderline highLDL 160-189 mg/dL HighLDL greater than 189 mg/dL Very high Cholesterol in VLDL Calc [Ma ss/Vol]Ordered By: Kareem Tijerina on 08-13-2023 Cholesterol in VLDL [Mass/Vol] 28 mg/dL [facility] HbA1c HPLC (Bld) [Mass fract ion]on 08-13-2023 HbA1c (Bld) [Mass fraction] 5.6 % [facility] Insulinon 08-13-2023 Insulin 23.8 u[iU]/mL Normal 2.6-24.[address] [facility] Comment on above: Result Comment: Perf ormed at: CB - [facility] [address] [id number] President & Founder: Zechariah Palua PhD, Phone: [phone] PERFORMED BY: [place] [address] PATHOLOGIST STREETCAR REPAIRER HELPER LISA COOLEY M.D. Performed By: #### M ITOM2, L-K MICRO, ALPHA PHEN, HEMOCHROM, CERULOP, TENA, IGG, SMAB #### [facility] , #### PARVEEN, TSH3 #### [address] Lipid Panelon 08-13-2023 LDL Cholesterol,Calculated 101 mg/dL High 0-100 [facility] Comment on above: Result Comment: LDL ATP III CLASSIFICATION LDL less than 100 mg/dL Optimal LDL 100-129 mg/dL Near or above optimal LDL 130-159 mg/dL Borderline high LDL 160-189 mg/dL High LDL greater than 189 mg/dL Very high Performed By: #### M ITOM2, L-K MICRO, ALPHA PHEN, HEMOCHROM, CERULOP, TENA, IGG, SMAB #### [facility] , #### PARVEEN, TSH3 #### [address] Triglyceride w/Reflex 144 mg/dL Normal 0-149 [facility] Comment on [...] #### [facility] , #### PARVEEN, TSH3 #### [address] VLDL CHOLESTEROL 28 mg/dL Normal [facility] Comment on above: Performed By: #### M ITOM2, L-K MICRO, ALPHA PHEN, HEMOCHROM, CERULOP, TENA, IGG, SMAB #### [facility] , #### PARVEEN, TSH3 #### [address] Serum or plasma high density lipoprotein (HDL) cholesterol measurementOrdered By: Kareem Tijerina on 08-13-2023 Cholesterol in HDL [Mass/Vol] 32 mg/dL Normal 23-92 [facility] Comment on above: HDL CHOL ATP-III [...] #### [facility] , #### PARVEEN, TSH3 #### [address] Serum or plasma insulin reynold urement (units/volume)Ordered By: Kareme Tijerina on 08-13-2023 Insulin Qn 23.8 u[iU]/mL 2.6-24.9 [facility] Comment on above: Performed at: CB - [facility] [id number] [place], [place] [id number] Director: Zechariah Paula PhD, Phone: [phone] Serum or plasma total choles terol/high density lipoprotein (HDL) cholesterol mass ratOrdered By: Kareem Tijerina on 08-13-2023 Cholesterol.total/[place] sterol in HDL [Mass ratio] 5.1 {ratio} Normal <5.0 [facility] Comment on above: Result Comment: PERF ORMED BY: [place] [address] [address] REPAIRER HELPER LISA COOLEY M.D. Performed By: #### M ITOM2, L-K MICRO, ALPHA PHEN, HEMOCHROM, CERULOP, TENA, IGG, SMAB #### [facility] , #### PARVEEN, TSH3 #### [address] Triglyceride [Mass/volume] i n Serum or PlasmaOrdered By: Kareem Tijerina on 08-13-2023 Triglyceride [Mass/Vol] 144 mg/dL 0-149 [facility] Comment on above: TRIG ATP III CLASSIF [...] Palm MD on 07/22/2023 8:15 PM Normal [facility] - Chemistry and C hemistry - challengeon 07-08-2023 TSH Qn 1.138 m[IU]/L 0.516-4.13 0 [facility] No Panel Informationon 07-08 25-Hydroxy Vitamin D Total 11.0 ng/mL [facility] Comment on above: <20 ng/mL Vit D defi cient20-<30 ng/mL Vit D iipmenhhuuei79-841 ng/mL Vit D sufficient>100 ng/mL Potential Toxicity Serum or plasma thyroperoxid ase antibody assay (units/volume)on 07-08-2023 TPO Ab Qn 9 [IU]/mL 0-26 [facility] Thyroglobulin [Mass/volume] in Serum or Plasmaon 07-08-2023 Thyroglobulin [Mass/Vol] <1.0 [IU]/mL 0.0-0.9 [facility] Comment on above: Thyroglobulin Antibo dy measured by [employer] WalletMethodologyIt should be noted that the presence of thyroglobulinantibodies may not be pathogenic nor diagnostic, especiallyat very low levels. The assay residence director has found thatfour percent of individuals without evidence of thyroiddisease or autoimmunity will have positive TgAb levels upto 4 IU/mL.Performed at: [employer] Director: Zechariah Paula PhD, Phone: [phone] BASIC METABOLIC PANLon 06-30 Anion gap [Moles/Vol] 6 mmol/L Normal 5-15 [facility] Comment on above: Performed By: #### B ASAF CBCA, 00873-3, 82336-2 #### [facility] ([id number]) [address] [place] [address] Calcium [Mass/Vol] 8.9 mg/dL Normal 8.5-10.5 [facility] Comment on above: Performed By: #### B ASAF CBCA, 80756-9, 00445-9 #### [facility] ([id number]) [address] [place] [address] Chloride [Moles/Vol] 104 mmol/L Normal 98-109 [facility] Comment on above: Performed By: #### B SHERLYN RON, 02526-4, 38703-8 #### [facility] ([id number]) [address] [place] [address] 49518 CO2 [Moles/Vol] 24 mmol/L Normal 22-32 [facility] Comment on above: Performed By: #### B SHERLYN RON, 87973-0, 47842-2 #### [facility] ([id number]) [address] [place] [address] 42528 Creatinine [Mass/Vol] 0.83 mg/dL Normal 0.70-1.20 [facility] Comment on above: Result Comment: METH OD TRACEABLE TO IDMS STANDARD Performed By: #### B SHERLYN RON, 40109-2, 38737-7 #### [facility] ([id number]) [address] [place] [address]172 eGFR (CKD-EPI) NON-RACE DEPENDENT >90 Normal >59 [facility] Comment on above: Result Comment: Reported eGFR is based on the CKD-EPI 2020 equation that does not use a race coefficient. Performed By: #### B SHERLYN RON, 55211-6, 39409-7 #### [facility] ([id number]) [address] [place] [address]393 Glucose [Mass/Vol] 103 mg/dL High 65-99 [facility] Comment on above: Performed By: #### B SHERLYN RON, 19339-3, 31916-1 #### [facility] ([id number]) [address] [place] [address] 51061 Potassium [Moles/Vol] 3.7 mmol/L Normal 3.5-5.0 [facility] Comment on above: Performed By: #### B SHERLYN RON, 55367-0, 37483-1 #### [facility] ([id number]) [address] [place] [address]26 Sodium [Moles/Vol] 134 mmol/L Normal 134-146 [facility] Comment on above: Performed By: #### B MP, CBCA, 07928-0, 71491-5 #### [facility] ([id number]) [address] [place] [address] 92745 Urea nitrogen [Mass/Vol] 10 mg/dL Normal 5-23 [facility] Comment on above: Performed By: #### B MP, CBCA, 65672-7, 78488-5 #### [facility] ([id number]) [address] [place] [address] 69266 CBC AND AUTO DIFFon 06-30- 24 ABSOLUTE BASOPHIL 0.0 X10E9/L Normal 0.0-0.2 [facility] Comment on above: Performed By: #### B MP, CBCA, 43649-5, 57484-8 #### [facility] ([id number]) [address] [place] [address] 37551 ABSOLUTE NEUTROPHIL 2.6 X10E9/L Normal 1.5-6.6 [facility] Comment on above: Performed By: #### B MP, CBCA, 34675-6, 09483-2 #### [facility] ([id number]) [address] [place] [address] 18695 Basophils/100 WBC (Bld) 0.6 % Normal [facility] Comment on above: Performed By: #### B MP, CBCA, 00184-2, 74117-7 #### [facility] ([id number]) [address] [place] [address] 78312 Eosinophils (Bld) [#/Vol] 0.1 10*3/uL Normal 0.0-0.4 [facility] Comment on above: Performed By: #### B MP, CBCA, 33402-5, 36674-8 #### [facility] ([id number]) [address] [place] [address] 33273 Eosinophils/100 WBC (Bld) 2.7 % Normal [facility] Comment on above: Performed By: #### B MP, CBCA, 64935-2, 40962-5 #### [facility] ([id number]) [address] [place] [address] 96037 Erythrocyte distribution width (RBC) [Ratio] 13.3 % Normal 11.5-15.0 [facility] Comment on above: Performed By: #### B ASAF, CBCA, 74525-4, 02748-3 #### [facility] ([id number]) [address] [place] [address] 89535 Hematocrit (Bld) [Volume fraction] 41.2 % Normal 39-49 [facility] Comment on above: Performed By: #### B ASAF, CBCA, 72323-4, 85117-2 #### [facility] ([id number]) [address] [place] [address] 04874 Hemoglobin (Bld) [Mass/Vol] 14.3 g/dL Normal 13.0-17.0 [facility] Comment on above: Performed By: #### B ASAF, CBCA, 39436-1, 00502-0 #### [facility] ([id number]) [address] [place] [address] 08536 Lymphocytes (Bld) [#/Vol] 1.4 10*3/uL Normal 1.0-3.5 [facility] Comment on above: Performed By: #### B MP, CBCA, 92596-1, 83528-4 #### [facility] ([id number]) [address] [place] [address] 91232 Lymphocytes/100 WBC (Bld) 30.6 % Normal [facility] Comment on above: Performed By: #### B MP, CBCA, 10440-0, 43262-0 #### [facility] ([id number]) [address] [place] [address] 73690 MCH (RBC) [Entitic mass] 29.7 pg Normal 27-34 [facility] Comment on above: Performed By: #### B MP, CBCA, 16575-2, 36843-7 #### [facility] ([id number]) [address] [place] [address] 58410 MCHC (RBC) [Mass/Vol] 34.7 g/dL Normal 32-36 [facility] Comment on above: Performed By: #### B MP, CBCA, 57609-4, 19937-2 #### [facility] ([id number]) [address] [place] [address] 61335 MCV (RBC) [Entitic vol] 86 fL Normal 80-100 [facility] Comment on above: Performed By: #### B MP, CBCA, 37448-4, 06948-2 #### [facility] ([id number]) [address] [place] [address] 06150 Monocytes (Bld) [#/Vol] 0.6 10*3/uL Normal 0-0.9 [facility] Comment on above: Performed By: #### B MP, CBCA, 37636-4, 86500-9 #### [facility] ([id number]) [address] [place] [address] 81306 Monocytes/100 WBC (Bld) 11.8 % Normal [facility] Comment on above: Performed By: #### B MP, CBCA, 37056-9, 55629-2 #### [facility] ([id number]) [address] [place] [address] 12379 Neutrophils/100 WBC (Bld) 54.3 % Normal [facility] Comment on above: Performed By: #### B MP, CBCA, 28130-0, 14423-5 #### [facility] ([id number]) [address] [place] [address] 47181 Platelet mean volume (Bld) [Entitic vol] 9.1 fL Normal 7-12 [facility] Comment on above: Performed By: #### B MP, CBCA, 32208-3, 43764-2 #### [facility] ([id number]) [address] [place] [address] 24487 Platelets (Bld) [#/Vol] 236 10*3/uL Normal 150-450 [facility] Comment on above: Performed By: #### B MP, CBCA, 10013-7, 15947-6 #### [facility] ([id number]) [address] [place] [address] 13437 RBC COUNT 4.82 X10E12/L Normal 4.10-5.70 [facility] Comment on above: Performed By: #### B MP, CBCA, 48357-8, 09210-4 #### [facility] ([id number]) [address] [place] [address] 90004 WBC (Bld) [#/Vol] 4.7 10*3/uL Normal 4.0-11.0 [facility] Comment on above: Performed By: #### B MP, CBCA, 30541-1, 32528-1 #### [facility] ([id number]) [address] [place] [address] 19269 Fibrin D-dimer DDU (PPP) [Ma ss/Vol]on 06-30-2023 D DIMER <150 Normal <255 [facility] Comment on above: Result Comment: Results <255 ng/mL DDU: The presence of a VTE can safely be excluded with a negative D-Dimer result and Wells score. A negative result doesn't exclude the possibility of DIC. The test be repeated along with other diagnostic tests if the patient's symptoms persist or worsen. [email or web address] Performed By: #### B MARY RONA, 62145-7, 50536-6 #### [facility] ([id number]) [address] [place] [address] 26735 TROPONIN Ion 06-30-2023 Troponin I.cardiac [Mass/Vol] ng/mL Normal 0.00-0.04 [facility] Comment on above: Performed By: #### B MARY RONA, 48013-4, 44275-4 #### [facility] ([id number]) [address] [place] [address] 32444 XR CHEST 2 VWSon 06-30-2023 XR CHEST 2 VWS XR CHEST 2 VWS XR CHEST 2 VWS INDICATION: right sided chest pain. Chest pain FINDINGS: Cardiac silhouette is normal in size. Trachea midline. No focal pulmonary consolidation. No pleural effusion. No pneumothorax. IMPRESSION: 1. No acute findings. Finalized by Dwaine Sharpe MD on 06/30/2023 5:11 AM Normal [facility] Miscellaneouson 06-22-2023 Miscellaneous [id number] 1121 [id number]#1.00OTG TIFF [facility] Office/Clinic Noteon 024 Miscellaneous [id number] 5429 [id number]#1.00OT GTIFF [facility] Office/Clinic Note [id number]#1.00OT GTIFF [facility] Alanine aminotransferase [En zymatic activity/volume] in Serum or PlasmaOrdered By: Lewis Mirza on 05-19-2023 ALT [Catalytic activity/Vol] 56 U/L [facility] 7-52 [facility] Comment on above: Performed By: #### M ITOM2, L-K MICRO, ALPHA PHEN, HEMOCHROM, CERULOP, TENA, IGG, SMAB #### [facility] , #### PARVEEN, TSH3 #### [place] [address] [place] Albumin [Mass/volume] in Ser um or Plasma by Bromocresol green (BCG) dye binding methoOrdered By: Lewis Mirza on 05-19-2023 Albumin BCG dye [Mass/Vol] 4.4 g/dL 3.5-5.7 [facility] Alkaline phosphatase [Enzyma tic activity/volume] in Serum or PlasmaOrdered By: Lewis Mirza on 05-19-2023 ALP [Catalytic activity/Vol] 58 U/L Normal 34-104 [facility] Comment on above: Performed By: #### M ITOM2, L-K MICRO, ALPHA PHEN, HEMOCHROM, CERULOP, TENA, IGG, SMAB #### [facility] , #### PARVEEN, TSH3 #### [address] Anti-Centromere B Antibodies on 05-19-2023 Anti-Centromere B Antibodies <0.2 Normal 0.0-0.9 [facility] Comment on above: Result Comment: Perf ormed at: - [facility] [place] [id number] President & Founder: Zechariah Paula PhD, Phone: [phone] Performed By: #### M ITOM2, L-K MICRO, ALPHA PHEN, HEMOCHROM, CERULOP, TENA, IGG, SMAB #### [facility] , #### PARVEEN, TSH3 #### [place] [address] [place] Anti-RNPon 05-19-2023 Anti-PAPER CONE DRYING MACHINE OPERATOR 0.6 Normal 0.0-0.9 [facility] Comment on above: Performed By: #### M ITOM2, L-K MICRO, ALPHA PHEN, HEMOCHROM, CERULOP, TENA, IGG, SMAB #### [facility] , #### PARVEEN, TSH3 #### [place] [address] [place] Anti-Newberry Antibodieson Anti-Newberry Antibodies <0.2 Normal 0.0-0.9 [facility] Comment on above: Performed By: #### M ITOM2, L-K MICRO, ALPHA PHEN, HEMOCHROM, CERULOP, TENA, IGG, SMAB #### [facility] , #### PARVEEN, TSH3 #### [address] Anti-dsDNA(DBL)Abon 05-19-19 24 Anti-dsDNA(DBL)Ab 3 Normal 0-9 [facility] Comment on above: Result Comment: Nega tive <5 Equivocal 5 - 9 Positive >9 Performed By: #### M ITOM2, L-K MICRO, ALPHA PHEN, HEMOCHROM, CERULOP, TENA, IGG, SMAB #### [facility] , #### PARVEEN, TSH3 #### [address] Aspartate aminotransferase [ Enzymatic activity/volume] in Serum or PlasmaOrdered By: Lewis Mirza on 05-19-2023 AST [Catalytic activity/Vol] 30 U/L Normal 13-39 [facility] Comment on above: Performed By: #### M ITOM2, L-K MICRO, ALPHA PHEN, HEMOCHROM, CERULOP, TENA, IGG, SMAB #### [facility] , #### PARVEEN, TSH3 #### [address] Automated basophil %Ordered By: Lewis Mirza on 05-19-2023 Basophils/100 WBC (Bld) 0.7 % Normal . [facility] [facility] Comment on above: Performed By: #### M ITOM2, L-K MICRO, ALPHA PHEN, HEMOCHROM, CERULOP, TENA, IGG, SMAB #### [facility] , #### PARVEEN, TSH3 #### [address] Automated basophil countOrde red By: Lewis Mirza on 05-19-2023 Basophils (Bld) [#/Vol] 0.0 10*3/uL Normal 0.0-0.2 [facility] Comment on above: Performed By: #### M ITOM2, L-K MICRO, ALPHA PHEN, HEMOCHROM, CERULOP, TENA, IGG, SMAB #### [facility] , #### PARVEEN, TSH3 #### [address] Automated blood monocyte cou ntOrdered By: Lewis Mirza on 05-19-2023 Monocytes (Bld) [#/Vol] 0.7 10*3/uL Normal 0.0-0.8 [facility] Comment on above: Performed By: #### M ITOM2, L-K MICRO, ALPHA PHEN, HEMOCHROM, CERULOP, TENA, IGG, SMAB #### [facility] , #### PARVEEN, TSH3 #### [address] Automated eosinophil %Ordere d By: Lewis Mirza on 05-19-2023 Eosinophils/100 WBC (Bld) 2.7 % Normal . [facility] Comment on above: Performed By: #### M ITOM2, L-K MICRO, ALPHA PHEN, HEMOCHROM, CERULOP, TENA, IGG, SMAB #### [facility] , #### PARVEEN, TSH3 #### [address] Automated eosinophil countOr dered By: Lewis Mirza on 05-19-2023 Eosinophils (Bld) [#/Vol] 0.2 10*3/uL Normal 0.0-0.45 [facility] Comment on above: Performed By: #### M ITOM2, L-K MICRO, ALPHA PHEN, HEMOCHROM, CERULOP, TENA, IGG, SMAB #### [facility] , #### PARVEEN, TSH3 #### [address] Automated erythrocytes count in urine sediment (number/area)Ordered By: Lewis Mirza on 05-19-2023 RBC Auto (Urine sed) [#/Area] 1-2 [HPF] 0-4 [facility] Automated leukocytes count i n urine sediment (number/area)Ordered By: Lewis Mirza on 05-19-2023 WBC Auto (Urine sed) [#/Area] None seen [HPF] 0-4 [facility] Automated monocyte %Ordered By: Lewis Mirza on 05-19-2023 Monocytes/100 WBC (Bld) 10.7 % Normal . [facility] Comment on above: Performed By: #### M ITOM2, L-K MICRO, ALPHA PHEN, HEMOCHROM, CERULOP, TENA, IGG, SMAB #### [facility] , #### PARVEEN, TSH3 #### [address] Automated neutrophil %Ordere d By: Lewis Mirza on 05-19-2023 Neutrophils/100 WBC (Bld) 53.4 % Normal . [facility] Comment on above: Performed By: #### M ITOM2, L-K MICRO, ALPHA PHEN, HEMOCHROM, CERULOP, TENA, IGG, SMAB #### [facility] , #### PARVEEN, TSH3 #### [facility] [address] [place] [address] Automated urine color determ inationOrdered By: Lewis Mirza on 05-19-2023 Color (U) Yellow Normal Yellow [facility] Comment on above: Order Comment: Reaso n for Exam Elevated LFTs Reason for Exam Fatigue Performed By: #### M ITOM2, L-K MICRO, ALPHA PHEN, HEMOCHROM, CERULOP, TENA, IGG, SMAB #### [facility] , #### PARVEEN, TSH3 #### [facility] [address] [place] [address] Bilirubin Test strip Ql (U)O rdered By: Lewis Mirza on 05-19-2023 Bilirubin Ql (U) Negative Negative [facility] Bilirubin.total [Mass/volume ] in Serum or PlasmaOrdered By: Lewis Mirza on 05-19-2023 Bilirubin [Mass/Vol] 0.8 mg/dL Normal 0.3-1.0 [facility] Comment on above: Performed By: #### M ITOM2, L-K MICRO, ALPHA PHEN, HEMOCHROM, CERULOP, TENA, IGG, SMAB #### [facility] , #### PARVEEN, TSH3 #### [facility] [address] [place] [address] [place] C reactive protein [Mass/vol ume] in Serum or PlasmaOrdered By: Lewis Mirza on 05-19-2023 CRP [Mass/Vol] < 0.5 mg/dL 0.0-0.5 [facility] C-Reactive Proteinon 024 CRP [Mass/Vol] mg/L Normal 0.0-0.5 [facility] Comment on above: Performed By: #### M ITOM2, L-K MICRO, ALPHA PHEN, HEMOCHROM, CERULOP, TENA, IGG, SMAB #### [facility] , #### PARVEEN, TSH3 #### [facility] [address] [place] [address] [place] Calcium [Mass/volume] in Ser um or PlasmaOrdered By: Lewis Mirza on 05-19-2023 Calcium [Mass/Vol] 9.4 mg/dL Normal 8.6-10.[address] [facility] Comment on above: Performed By: #### M ITOM2, L-K MICRO, ALPHA PHEN, HEMOCHROM, CERULOP, TENA, IGG, SMAB #### [facility] , #### PARVEEN, TSH3 #### [facility] [address] [place] [address] [place] Carbon dioxide, total [Moles /volume] in Serum or PlasmaOrdered By: Lewis Mirza on 05-19-2023 CO2 [Moles/Vol] 23.5 mmol/L Normal 21.0-31.0 [facility] Comment on above: Performed By: #### M ITOM2, L-K MICRO, ALPHA PHEN, HEMOCHROM, CERULOP, TENA, IGG, SMAB #### [facility] , #### PARVEEN, TSH3 #### [facility] [address] [place] [address] [place] Chloride [Moles/volume] in S saima or PlasmaOrdered By: Lewis Mirza on 05-19-2023 Chloride [Moles/Vol] 107 mmol/L Normal 98-107 [facility] Comment on above: Performed By: #### M ITOM2, L-K MICRO, ALPHA PHEN, HEMOCHROM, CERULOP, TENA, IGG, SMAB #### [facility] , #### PARVEEN, TSH3 #### [facility] [address] Complement C3on 05-19-2023 Complement C3 161 mg/dL Normal 82-[address] [facility] Comment on above: Result Comment: Perf ormed at: - [facility] [address] [id number] President & Founder: Zechariah Paula PhD, Phone: [phone] Performed By: #### M ITOM2, L-K MICRO, ALPHA PHEN, HEMOCHROM, CERULOP, TENA, IGG, SMAB #### [facility] , #### PARVEEN, TSH3 #### [address] Complement C4on 05-19-2023 Complement C4 24 mg/dL Normal 12-[address] [facility] Comment on above: Performed By: #### M ITOM2, L-K MICRO, ALPHA PHEN, HEMOCHROM, CERULOP, TENA, IGG, SMAB #### [facility] , #### PARVEEN, TSH3 #### [address] Complement Total (CH50)on Complement Total (CH50) 49 Normal >41 [facility] Comment on [...] out of range values. Performed at: - [address] [id number] President & Founder: Zechariah Paula PhD, Phone: [phone] PERFORMED BY: [place] [address] PATH[address] STRE[address]CAR REPAIRER HELPER LISA COOLEY M.D. Performed By: #### M ITOM2, L-K MICRO, ALPHA PHEN, HEMOCHROM, CERULOP, TENA, IGG, SMAB #### [facility] , #### PARVEEN, TSH3 #### [address] Complete Blood Count Auto Di ffon 05-19-2023 Mean Corpuscular HGB Conc 34.1 g/dL Normal 32.5-35.6 [facility] Comment on above: Performed By: #### M ITOM2, L-K MICRO, ALPHA PHEN, HEMOCHROM, CERULOP, TENA, IGG, SMAB #### [facility] , #### PARVEEN, TSH3 #### [address] NRBC% 0.2 /100{WBC} Normal 0-0.[address] [facility] Comment on above: Performed By: #### M ITOM2, L-K MICRO, ALPHA PHEN, HEMOCHROM, CERULOP, TENA, IGG, SMAB #### [facility] , #### PARVEEN, TSH3 #### [address] Comprehensive Metabolic Pane darnell 05-19-2023 Albumin [Mass/Vol] 4.4 g/dL Normal 3.5-5.7 [facility] Comment on above: Performed By: #### M ITOM2, L-K MICRO, ALPHA PHEN, HEMOCHROM, CERULOP, TENA, IGG, SMAB #### [facility] , #### PARVEEN, TSH3 #### [place] [address] [place] GFR/1.73 sq M.predicted MDRD (S/P/Bld) [Vol rate/Area] mL/min/{1.73_m2} Normal [facility] Comment on above: Performed By: #### M ITOM2, L-K MICRO, ALPHA PHEN, HEMOCHROM, CERULOP, TENA, IGG, SMAB #### [facility] , #### PARVEEN, TSH3 #### [address] Creatine kinase [Enzymatic a ctivity/volume] in Serum or PlasmaOrdered By: Lewis Mirza on 05-19-2023 CK [Catalytic activity/Vol] 112 U/L Normal 30-223 [facility] Comment on above: Result Comment: PERF ORMED BY: [place] [address] [address]CAR REPAIRER HELPER LISA COOLEY M.D. Performed By: #### M ITOM2, L-K MICRO, ALPHA PHEN, HEMOCHROM, CERULOP, TENA, IGG, SMAB #### [facility] , #### PARVEEN, TSH3 #### [place] [address] [place] Creatinine [Mass/volume] in Serum or PlasmaOrdered By: Lewis Mirza on 05-19-2023 Creatinine [Mass/Vol] 0.78 mg/dL Normal 0.70-1.30 [facility] Comment on above: Performed By: #### M ITOM2, L-K MICRO, ALPHA PHEN, HEMOCHROM, CERULOP, TENA, IGG, SMAB #### [facility] , #### PARVEEN, TSH3 #### [place] [address] [place] DNA double strand Ab [Units/ volume] in SerumOrdered By: Lewis Mirza on 05-19-2023 DNA double strand Ab Qn (S) 3 [IU]/mL 0-9 [facility] Comment on above: Negative <5 Equivoca l 5 - 9 Positive >9 Dipstick and Microscopicon 0 05-19-2023 Appearance (U) Clear Normal Clear [facility] Comment on above: Order Comment: Reaso n for Exam Elevated LFTs Reason for Exam Fatigue Performed By: #### M ITOM2, L-K MICRO, ALPHA PHEN, HEMOCHROM, CERULOP, TENA, IGG, SMAB #### [facility] , #### PARVEEN, TSH3 #### [address] Bacteria,Urine None Seen Normal None Seen [facility] Comment on above: Order Comment: Reaso n for Exam Elevated LFTs Reason for Exam Fatigue Performed By: #### M ITOM2, L-K MICRO, ALPHA PHEN, HEMOCHROM, CERULOP, TENA, IGG, SMAB #### [facility] , #### PARVEEN, TSH3 #### [address] Bilirubin,Urine Negative Normal Negative [facility] Comment on above: Order Comment: Reaso n for Exam Elevated LFTs Reason for Exam Fatigue Performed By: #### M ITOM2, L-K MICRO, ALPHA PHEN, HEMOCHROM, CERULOP, TENA, IGG, SMAB #### [facility] , #### PARVEEN, TSH3 #### [address] Glucose Ql (U) Normal Normal Normal [facility] Comment on above: Order Comment: Reaso n for Exam Elevated LFTs Reason for Exam Fatigue Performed By: #### M ITOM2, L-K MICRO, ALPHA PHEN, HEMOCHROM, CERULOP, TENA, IGG, SMAB #### [facility] , #### PARVEEN, TSH3 #### [facility] [address] Hyaline Casts,Urine None Seen Normal 0-8 [facility] Comment on above: Order Comment: Reaso n for Exam Elevated LFTs Reason for Exam Fatigue Result Comment: PERF ORMED BY: [place] [address] [address] REPAIRER HELPER LISA COOLEY M.D. Performed By: #### M ITOM2, L-K MICRO, ALPHA PHEN, HEMOCHROM, CERULOP, TENA, IGG, SMAB #### [facility] , #### PARVEEN, TSH3 #### [address] Ketones Ql (U) Negative Normal Negative [facility] Comment on above: Order Comment: Reaso n for Exam Elevated LFTs Reason for Exam Fatigue Performed By: #### M ITOM2, L-K MICRO, ALPHA PHEN, HEMOCHROM, CERULOP, TENA, IGG, SMAB #### [facility] , #### PARVEEN, TSH3 #### [address] Leukocyte esterase Test strip Ql (U) Negative Normal Negative [facility] Comment on above: Order Comment: Reaso n for Exam Elevated LFTs Reason for Exam Fatigue Performed By: #### M ITOM2, L-K MICRO, ALPHA PHEN, HEMOCHROM, CERULOP, TENA, IGG, SMAB #### [facility] , #### PARVEEN, TSH3 #### [address] Nitrite,Urine Negative Normal Negative [facility] Comment on above: Order Comment: Reaso n for Exam Elevated LFTs Reason for Exam Fatigue Performed By: #### M ITOM2, L-K MICRO, ALPHA PHEN, HEMOCHROM, CERULOP, TENA, IGG, SMAB #### [facility] , #### PARVEEN, TSH3 #### [address] Occult Blood,Urine Negative Normal Negative [facility] Comment on above: Order Comment: Reaso n for Exam Elevated LFTs Reason for Exam Fatigue Performed By: #### M ITOM2, L-K MICRO, ALPHA PHEN, HEMOCHROM, CERULOP, TENA, IGG, SMAB #### [facility] , #### PARVEEN, TSH3 #### [address] Protein,Urine Negative Normal Negative [facility] Comment on above: Order Comment: Reaso n for Exam Elevated LFTs Reason for Exam Fatigue Performed By: #### M ITOM2, L-K MICRO, ALPHA PHEN, HEMOCHROM, CERULOP, TENA, IGG, SMAB #### [facility] , #### PARVEEN, TSH3 #### [address] RBC,Urine 1-2 Normal 0-4 [facility] Comment on above: Order Comment: Reaso n for Exam Elevated LFTs Reason for Exam Fatigue Performed By: #### M ITOM2, L-K MICRO, ALPHA PHEN, HEMOCHROM, CERULOP, TENA, IGG, SMAB #### [facility] , #### PARVEEN, TSH3 #### [address] Specificy [place],Urine 1.023 Normal 1.00 1-1.03 0 [facility] Comment on above: Order Comment: Reaso n for Exam Elevated LFTs Reason for Exam Fatigue Performed By: #### M ITOM2, L-K MICRO, ALPHA PHEN, HEMOCHROM, CERULOP, TENA, IGG, SMAB #### [facility] , #### PARVEEN, TSH3 #### [address] Squamous Epithelial Cell,Urine None Seen Normal 0-2 [facility] Comment on above: Order Comment: Reaso n for Exam Elevated LFTs Reason for Exam Fatigue Performed By: #### M ITOM2, L-K MICRO, ALPHA PHEN, HEMOCHROM, CERULOP, TENA, IGG, SMAB #### [facility] , #### PARVEEN, TSH3 #### [address] Urobilinogen,Urine Normal Normal Normal [facility] Comment on above: Order Comment: Reaso n for Exam Elevated LFTs Reason for Exam Fatigue Performed By: #### M ITOM2, L-K MICRO, ALPHA PHEN, HEMOCHROM, CERULOP, TENA, IGG, SMAB #### [facility] , #### PARVEEN, TSH3 #### [address] WBC,Urine None Seen Normal 0-4 [facility] Comment on above: Order Comment: Reaso n for Exam Elevated LFTs Reason for Exam Fatigue Performed By: #### M ITOM2, L-K MICRO, ALPHA PHEN, HEMOCHROM, CERULOP, TENA, IGG, SMAB #### [facility] , #### PARVEEN, TSH3 #### [address] Erythrocyte Sedimentation Ra andra 05-19-2023 ESR (Bld) [Velocity] 14 mm/h Normal 0-14 [facility] Comment on above: Result Comment: PERF ORMED BY: [place] [address] [address]CAR REPAIRER HELPER LISA COOLEY M.D. Performed By: #### M ITOM2, L-K MICRO, ALPHA PHEN, HEMOCHROM, CERULOP, TENA, IGG, SMAB #### [facility] , #### PARVEEN, TSH3 #### [address] Erythrocyte distribution wid th [Ratio] by Automated countOrdered By: Lewis Mirza on 05-19-2023 Erythrocyte distribution width (RBC) [Ratio] 13.0 % Normal 12.0-14.8 [facility] Comment on above: Performed By: #### M ITOM2, L-K MICRO, ALPHA PHEN, HEMOCHROM, CERULOP, TENA, IGG, SMAB #### [facility] , #### PARVEEN, TSH3 #### [address] Erythrocyte sedimentation ra te by Photometric methodOrdered By: Lewis Mirza on 05-19-2023 ESR Photometric method (Bld) [Velocity] 14 mm/hr 0-14 [facility] Erythrocytes [#/volume] in B lood by Automated countOrdered By: Lewis Mirza on 05-19-2023 RBC (Bld) [#/Vol] 4.85 10*6/uL Normal 3.90-5.60 [facility] Comment on above: Performed By: #### M ITOM2, L-K MICRO, ALPHA PHEN, HEMOCHROM, CERULOP, TENA, IGG, SMAB #### [facility] , #### PARVEEN, TSH3 #### [facility] [address] Fibrillarin Ab [Presence] in SerumOrdered By: Lewis Mirza on 05-19-2023 Fibrillarin Ab Ql (S) Negative Negative [facility] Comment on above: This test was develo ped and its performance characteristicsdetermined by [facility]. It has not been cleared orapproved by the Food and Drug Administration.Performed at: [facility] [employer] [address] [id number] Director: Issa Thao MD, Phone: [phone] Glucose [Mass/volume] in Ser um or PlasmaOrdered By: Lewis Mirza on 05-19-2023 Glucose [Mass/Vol] 98 mg/dL Normal 70-[address] [facility] Comment on above: ADA recommended refe rence rangeRandom Glucose Reference Range is dependent on time and content of last meal. Glucose of more than 200 mg/dL in a nonstressed, ambulatory subject supports the diagnosis of Diabetes Mellitus. Result Comment: [place] om Glucose Reference Range is dependent on time and content of last meal. Glucose of more than 200 mg/dL in a nonstressed, ambulatory subject supports the diagnosis of Diabetes Mellitus. ADA recommended reference range Performed By: #### M ITOM2, L-K MICRO, ALPHA PHEN, HEMOCHROM, CERULOP, TENA, IGG, SMAB #### [facility] , #### PARVEEN, TSH3 #### [facility] [address] [place] [address] [place] Hematocrit [Volume Fraction] of Blood by Automated countOrdered By: Lewis Mirza on 05-19-2023 Hematocrit (Bld) [Volume fraction] 41.7 % Normal 38.8-50.0 [facility] Comment on above: Performed By: #### M ITOM2, L-K MICRO, ALPHA PHEN, HEMOCHROM, CERULOP, TENA, IGG, SMAB #### [facility] , #### PARVEEN, TSH3 #### [facility] [address] Hemoglobin [Mass/volume] in BloodOrdered By: Lewis Mirza on 05-19-2023 Hemoglobin (Bld) [Mass/Vol] 14.2 g/dL Normal 13.0-17.0 [facility] Comment on above: Performed By: #### M ITOM2, L-K MICRO, ALPHA PHEN, HEMOCHROM, CERULOP, TENA, IGG, SMAB #### [facility] , #### PARVEEN, TSH3 #### [address] Ketones Auto test strip (U) [Mass/Vol]Ordered By: Lewis Mirza on 05-19-2023 Ketones (U) [Mass/Vol] Negative Negative [facility] - Serology - non- microOrdered By: Lewis Mirza on 05-19-2023 SCL-70 extractable nuclear Ab IA Qn (S) <0.2 AI 0.0-0.9 [facility] - UrinalysisOrder ed By: Lewis Mirza on 05-19-2023 Hyaline casts LM Ql (Urine sed) None seen [LPF] 0-8 [facility] Leukocytes [#/volume] correc sirisha for nucleated erythrocytes in Blood by Automated counOrdered By: Lewis Mirza on 05-19-2023 WBC corrected for nucl RBC Auto (Bld) [#/Vol] 6.4 10*3/uL 4.1-10.5 [facility] Leukocytes [#/volume] in Blo od by Automated countOrdered By: Lewis Mirza on 05-19-2023 WBC (Bld) [#/Vol] 6.4 10*3/uL Normal 4.1-10.[address] [facility] Comment on above: Performed By: #### M ITOM2, L-K MICRO, ALPHA PHEN, HEMOCHROM, CERULOP, TENA, IGG, SMAB #### [facility] , #### PARVEEN, TSH3 #### [address] Lymphocytes [#/volume] in Bl ood by Automated countOrdered By: Lewis Mirza on 05-19-2023 Lymphocytes (Bld) [#/Vol] 2.1 10*3/uL Normal 1.00-4.8 [facility] Comment on above: Performed By: #### M ITOM2, L-K MICRO, ALPHA PHEN, HEMOCHROM, CERULOP, TENA, IGG, SMAB #### [facility] , #### PARVEEN, TSH3 #### [place] [address] [place] Lymphocytes/100 leukocytes i n Blood by Automated countOrdered By: Lewis Mirza on 05-19-2023 Lymphocytes/100 WBC (Bld) 32.5 % Normal . [facility] Comment on above: Performed By: #### M ITOM2, L-K MICRO, ALPHA PHEN, HEMOCHROM, CERULOP, TENA, IGG, SMAB #### [facility] , #### PARVEEN, TSH3 #### [place] [address] [place] MCH [Entitic mass] by Automa sirisha countOrdered By: Lewis Mirza on 05-19-2023 MCH (RBC) [Entitic mass] 29.3 pg Normal 27.5-35.2 [facility] Comment on above: Performed By: #### M ITOM2, L-K MICRO, ALPHA PHEN, HEMOCHROM, CERULOP, TENA, IGG, SMAB #### [facility] , #### PARVEEN, TSH3 #### [facility] [address] MCHC Auto (RBC) [Mass/Vol]Or dered By: Lewis Mirza on 05-19-2023 MCHC (RBC) [Mass/Vol] 34.1 g/dL 32.5-35.6 [facility] MCV [Entitic volume] by Auto mated countOrdered By: Lewis Mirza on 05-19-2023 MCV (RBC) [Entitic vol] 86.0 fL Normal 83.5-101 [facility] Comment on above: Performed By: #### M ITOM2, L-K MICRO, ALPHA PHEN, HEMOCHROM, CERULOP, TENA, IGG, SMAB #### [facility] , #### PARVEEN, TSH3 #### [facility] [address] [place] [address] Neutrophils [#/volume] in Bl ood by Automated countOrdered By: Lewis Mirza on 05-19-2023 Neutrophils (Bld) [#/Vol] 3.4 10*3/uL Normal 1.8-7.7 [facility] Comment on above: Performed By: #### M ITOM2, L-K MICRO, ALPHA PHEN, HEMOCHROM, CERULOP, TENA, IGG, SMAB #### [facility] , #### PARVEEN, TSH3 #### [address] Nitrite Test strip Ql (U)Ord ered By: Lewis Mirza on 05-19-2023 Nitrite Ql (U) Negative Negative [facility] No Panel InformationOrdered By: Lewis Mirza on 05-19-2023 Estimated GFR (CKD-EPI) > 60.0 mL/Min [facility] Creatinine Clearance (Chem N/A [facility] PAPER [employer] DRYING MACHINE OPERATOR Antibody 0.6 AI 0.0-0.9 [facility] Serology Comments N/A [facility] Total Complement (CH50) 49 U/mL >41 [facility] Comment on above: Age Male Female 1 [...] to determine out of range values.Performed at: - [address] [id number] Director: Zechariah Paula PhD, Phone: [phone] Nucleated erythrocytes [Pres ence] in Blood by Automated countOrdered By: Lewis Mirza on 05-19-2023 Nucleated RBC Auto Ql (Bld) 0.2 /100{WBC} 0-0.5 [facility] PM-SCL Antibodieson 05-19-19 24 ANDREE PM-Scl Antibody <20 Normal <20 [facility] Comment on above: Result Comment: This test was developed and its performance characteristics determined by [facility]. It has not been cleared or approved by the Food and Drug Administration. Negative: <20 Weak Positive: 20 - 39 Moderate Positive: 40 - 80 Strong Positive: >80 Performed at: [facility] [address] [place], [place] [id number] President & Founder: Issa Thao MD, Phone: [phone] Performed By: #### M ITOM2, L-K MICRO, ALPHA PHEN, HEMOCHROM, CERULOP, TENA, IGG, SMAB #### [facility] , #### PARVEEN, TSH3 #### [address] PM-Scl antibody assay by imm unodiffusionOrdered By: Lewis Mirza on 05-19-2023 PM-SCL extractable nuclear Ab Immune diff (S) [Mass/Vol] <20 Units <20 [facility] Comment on above: This test was develo ped and its performance characteristicsdetermined by [employer]. It has not been cleared orapproved by the Food and Drug Administration. Negative: <20 Weak Positive: 20 - 39 Moderate Positive: 40 - 80 Strong Positive: >80Performed at: [facility] [id number] [place], [place] [id number] Director: Issa Thao MD, Phone: [phone] Platelet mean volume [Entiti c volume] in Blood by Automated countOrdered By: Lewis Mirza on 05-19-2023 Platelet mean volume (Bld) [Entitic vol] 9.2 fL Normal 6.6-10.1 [facility] Comment on above: Performed By: #### M ITOM2, L-K MICRO, ALPHA PHEN, HEMOCHROM, CERULOP, TENA, IGG, SMAB #### [facility] , #### PARVEEN, TSH3 #### [address] Platelets [#/volume] in Bloo d by Automated countOrdered By: Lewis Mirza on 05-19-2023 Platelets (Bld) [#/Vol] 254 10*3/uL Normal 150-450 [facility] Comment on above: Performed By: #### M ITOM2, L-K MICRO, ALPHA PHEN, HEMOCHROM, CERULOP, TENA, IGG, SMAB #### [facility] , #### PARVEEN, TSH3 #### [address] Potassium [Moles/volume] in Serum or PlasmaOrdered By: Lewis Mirza on 05-19-2023 Potassium [Moles/Vol] 3.8 mmol/L Normal 3.5-5.1 [facility] Comment on above: Performed By: #### M ITOM2, L-K MICRO, ALPHA PHEN, HEMOCHROM, CERULOP, TENA, IGG, SMAB #### [facility] , #### PARVEEN, TSH3 #### [address] Protein Auto test strip (U) [Mass/Vol]Ordered By: Lewis Mirza on 05-19-2023 Protein (U) [Mass/Vol] Negative Negative [facility] Protein [Mass/volume] in Ser um or PlasmaOrdered By: Lewis Mirza on 05-19-2023 Protein [Mass/Vol] 7.1 g/dL Normal 6.4-8.[address] [facility] Comment on above: Performed By: #### M ITOM2, L-K MICRO, ALPHA PHEN, HEMOCHROM, CERULOP, TENA, IGG, SMAB #### [facility] , #### PARVEEN, TSH3 #### [facility] [address] [place] [address] RNA Polymerase IIion 024 RNA Polymerase IIi <20 Normal <20 [facility] Comment on above: Result Comment: Nega tive: <20 Weak Positive: 20 - 39 Moderate Positive: 40 - 80 Strong Positive: >80 Performed at: [facility] [address] [place], [place] [id number] President & Founder: Issa Thao MD, Phone: [phone] PERFORMED BY: [place] [address] PATHOLOG[address]RE[address]CAR REPAIRER HELPER LISA COOLEY M.D. Performed By: #### M ITOM2, L-K MICRO, ALPHA PHEN, HEMOCHROM, CERULOP, TENA, IGG, SMAB #### [facility] , #### PARVEEN, TSH3 #### [address] RNA polymerase III IgG Ab [U nits/volume] in Serum or Plasma by ImmunoassayOrdered By: Lewis Mirza on 05-19-2023 RNA polymerase III IgG IA Qn <20 Units <20 [facility] Comment on above: Negative: <20 Weak P ositive: 20 - 39 Moderate Positive: 40 - 80 Strong Positive: >80Performed at: [facility] [id number] [place], [place] [id number] Director: Issa Thao MD, Phone: [phone] Scleroderma 70 Antibodieson 05-19-2023 Scleroderma 70 Antibodies <0.2 Normal 0.0-0.9 [facility] Comment on above: Performed By: #### M ITOM2, L-K MICRO, ALPHA PHEN, HEMOCHROM, CERULOP, TENA, IGG, SMAB #### [facility] , #### PARVEEN, TSH3 #### [facility] [address] [place] [address] Serum Newberry extractable nucl ear antigen (ANDREE) antibody assay (units/volume)Ordered By: Lewis Mirza on 05-19-2023 Newberry extractable nuclear Ab Qn (S) <0.2 AI 0.0-0.9 [facility] Serum centromere protein B a ntibody assay (units/volume)Ordered By: Lewis Mirza on 05-19-2023 Centromere protein B Ab Qn (S) <0.2 AI 0.0-0.9 [facility] Comment on above: Performed at: [address] [id number] Director: Zechariah Paula PhD, Phone: [phone] Serum globulin measurement b y calculation (mass/volume)Ordered By: Lewis Mirza on 05-19-2023 Globulin (S) [Mass/Vol] 2.7 g/dL Normal [facility] Comment on above: Performed By: #### M ITOM2, L-K MICRO, ALPHA PHEN, HEMOCHROM, CERULOP, TENA, IGG, SMAB #### [facility] , #### PARVEEN, TSH3 #### [address] Serum or plasma albumin/glob ulin mass ratioOrdered By: Lewis Mirza on 05-19-2023 Albumin/Globulin [Mass ratio] 1.6 {ratio} Normal [facility] Comment on above: Performed By: #### M ITOM2, L-K MICRO, ALPHA PHEN, HEMOCHROM, CERULOP, TENA, IGG, SMAB #### [facility] , #### PARVEEN, TSH3 #### [address] Serum or plasma anion gap de terminationOrdered By: Lewis Mirza on 05-19-2023 Anion gap [Moles/Vol] 14.3 mmol/L Normal 6.0-15.0 [facility] Comment on above: Performed By: #### M ITOM2, L-K MICRO, ALPHA PHEN, HEMOCHROM, CERULOP, TENA, IGG, SMAB #### [facility] , #### PARVEEN, TSH3 #### [address] Serum or plasma complement C 3 measurement (mass/volume)Ordered By: Lewis Mirza on 05-19-2023 Complement C3 [Mass/Vol] 161 mg/dL 82-167 [facility] Comment on above: Performed at: [place] [id number] Director: Zechariah Paula PhD, Phone: [phone] Serum or plasma complement C 4 measurement (mass/volume)Ordered By: Lewis Mirza on 05-19-2023 Complement C4 [Mass/Vol] 24 mg/dL 12-38 [facility] Sodium [Moles/volume] in Ser um or PlasmaOrdered By: Lewis Mirza on 05-19-2023 Sodium [Moles/Vol] 141 mmol/L Normal 136-[address] [facility] Comment on above: Performed By: #### M ITOM2, L-K MICRO, ALPHA PHEN, HEMOCHROM, CERULOP, TENA, IGG, SMAB #### [facility] , #### PARVEEN, TSH3 #### [address] Specific gravity Auto test s trip (U) [Rel density]Ordered By: Lewis Mirza on 05-19-2023 Specific gravity (U) [Rel density] 1.023 1.001-1.03 0 [facility] Squamous epithelial cells de tection in urine sediment by light microscopyOrdered By: Lewis Mirza on 05-19-2023 Epithelial cells.squamous LM Ql (Urine sed) None seen [HPF] 0-2 [facility] Th-To Ab [Units/volume] in S saima by Line blotOrdered By: Lewis Mirza on 05-19-2023 Th-To Ab Line blot Qn (S) Negative Negative [facility] Comment on above: This test was develo ped and its performance characteristicsdetermined by [facility]. It has not been cleared orapproved by the Food and Drug Administration.Performed at: [facility] [address] [place], [place] [id number] Director: Issa Thao MD, Phone: [phone] Th/To Antibodyon 05-19-2023 Th/To Antibody Negative Normal Negative [facility] Comment on above: Result Comment: This test was developed and its performance characteristics determined by [facility]. It has not been cleared or approved by the Food and Drug Administration. Performed at: [facility] [address] [place], [place] [id number] President & Founder: Issa Thao MD, Phone: [phone] Performed By: #### M ITOM2, L-K MICRO, ALPHA PHEN, HEMOCHROM, CERULOP, TENA, IGG, SMAB #### [facility] , #### PARVEEN, TSH3 #### [facility] [address] [place] [address] Thyrotropin [Units/volume] i n Serum or PlasmaOrdered By: Lewis Mirza on 05-19-2023 TSH Qn 1.01 m[IU]/L Normal 0.45-5.33 [facility] Comment on above: Result Comment: PERF ORMED BY: [place] [address] PATH[address]CAR REPAIRER HELPER LISA COOLEY M.D. Performed By: #### M ITOM2, L-K MICRO, ALPHA PHEN, HEMOCHROM, CERULOP, TENA, IGG, SMAB #### [facility] , #### PARVEEN, TSH3 #### [facility] [address] [place] [address] U3 Rnpon 05-19-2023 U3 Hatchery Laborer Negative Normal Negative [facility] Comment on above: Result Comment: This test was developed and its performance characteristics determined by [facility]. It has not been cleared or approved by the Food and Drug Administration. Performed at: [facility] [address] [place], [place] [id number] President & Founder: Issa Thao MD, Phone: [phone] PERFORMED BY: [place] [address] [address]CAR REPAIRER HELPER LISA COOLEY M.D. Performed By: #### M ITOM2, L-K MICRO, ALPHA PHEN, HEMOCHROM, CERULOP, TENA, IGG, SMAB #### [facility] , #### PARVEEN, TSH3 #### [address] Urea nitrogen [Mass/volume] in Serum or PlasmaOrdered By: Lewis Mirza on 05-19-2023 Urea nitrogen [Mass/Vol] 10 mg/dL Normal 7-25 [facility] Comment on above: Performed By: #### M ITOM2, L-K MICRO, ALPHA PHEN, HEMOCHROM, CERULOP, TENA, IGG, SMAB #### [facility] , #### PARVEEN, TSH3 #### [facility] [address] [place] [address] Urine bacteria detection by automated methodOrdered By: Lewis Mirza on 05-19-2023 Bacteria Auto Ql (U) None seen None Seen [facility] Urine clarity by refractomet ry automatedOrdered By: Lewis Mirza on 05-19-2023 Clarity Refractometry automated (U) Clear Clear [facility] Urine glucose measurement by automated test strip (mass/volume)Ordered By: Lewis Mirza on 05-19-2023 Glucose Auto test strip (U) [Mass/Vol] Normal mg/dL Normal [facility] Urine hemoglobin detection b y automated test stripOrdered By: Lewis Mirza on 05-19-2023 Hemoglobin Auto test strip Ql (U) Negative Negative [facility] Urine leukocyte esterase det ection by automated test stripOrdered By: Lewis Mirza on 05-19-2023 Leukocyte esterase Auto test strip Ql (U) Negative Negative [facility] Urine pH measurement by auto mated test stripOrdered By: Lewis Mirza on 05-19-2023 pH (U) 5.5 [pH] Normal 5.0-9.0 [facility] Comment on above: Order Comment: Reaso n for Exam Elevated LFTs Reason for Exam Fatigue Performed By: #### M ITOM2, L-K MICRO, ALPHA PHEN, HEMOCHROM, CERULOP, TENA, IGG, SMAB #### [facility] , #### PARVEEN, TSH3 #### [address] Urobilinogen Auto test strip (U) [Mass/Vol]Ordered By: Lewis Mirza on 05-19-2023 Urobilinogen (U) [Mass/Vol] Normal mg/dL Normal [facility] XR knee BI 2Von 05-19-2023 XR knee BI 2V [facility] [place] [address] [place] [address] XRay Report Signed Patient: Ta Duncan MR#: [id number] 0 : 2005 Acct:[id number] Age/Sex: 17 / M ADM Date: 05/19/23 Loc: ICXD Room: Type: [facility] Attending Dr: Lewis Mirza MD Copies to: Lewis Mirza MD Ordering Provider: Lewis Mirza MD Date of Service: 05/19/23 XR/XR knee BI 2V: PAIN ([id number]) XR/XR thoracic spine 3V*: PAIN THORACIC SPINE [...] OR KNEES. Impression dictated by: Ki Davila Jr. DAlexanderOAlexander05/19/2023 2:25 PM Dictation Location: [place] [address] Transcribed By: NIKITA 05/19/23 1425 Dictated By: Ki Davila Jr, 05/19/23 1424 Signed By: 05/19/23 1425 Normal [facility] Miscellaneouson 04-30-2023 Miscellaneous [id number]#1.00O TGTIFF Normal [facility] Outside Recordson 04-22-2023 Outside Records [id number]#1.00OTGT IFF Normal [facility] TENA Antinuclear Antibodieson 04-21-2023 Antinuclear Abs, IFA Positive Critically abnormal . [facility] Comment on above: Order Comment: Reaso n for Exam Elevated LFTs Result Comment: Nega tive <1:80 Borderline 1:80 Positive >1:80 Performed By: #### M ITOM2, L-K MICRO, ALPHA PHEN, HEMOCHROM, CERULOP, TENA, IGG, SMAB #### [facility] , #### PARVEEN, TSH3 #### [facility] [address] Homogeneous Pattern 1:160 High . [facility] Comment on above: Order Comment: Reaso n for Exam Elevated LFTs Result Comment: ICAP nomenclature: AC-1 Performed By: #### M ITOM2, L-K MICRO, ALPHA PHEN, HEMOCHROM, CERULOP, TENA, IGG, SMAB #### [facility] , #### PARVEEN, TSH3 #### [facility] [address] Note 1 Normal . [facility] Comment on above: Order Comment: Reaso n for Exam Elevated LFTs Result Comment: Nola slade Potential Disease Association Homogeneous Systemic Lupus Erythematosus, Drug Induced Systemic Lupus Erythematosus, Chronic Autoimmune hepatitis, Juvenile Idiopathic Arthritis Speckled Sjogren Syndrome, Systemic Lupus Erythematosus, Subacute Cutaneous Lupus, Lupus, Congenital Heart Block, Mixed Connective Tissue Disease, Scleroderma-diffuse, Scleroderma-Autoimmune Myositis Overlap Syndrome, Systemic Lupus Jgrppdgpvnuhl-Badiihjjtav-Pofueodxgh Myositis Overlap Syndrome, Systemic Autoimmune Rheumatic Disease, [...] Cytopenias, Linear Scleroderma, Antiphospholipid Syndrome Performed at: [facility] [place] [id number] [place], [place] [id number] President & Founder: Zechariah Paula PhD, Phone: [phone] Performed By: #### M ITOM2, L-K MICRO, ALPHA PHEN, HEMOCHROM, CERULOP, TENA, IGG, SMAB #### [facility] , #### PARVEEN, TSH3 #### [address] Actin smooth muscle IgG Ab [ Units/volume] in SerumOrdered By: Imad Asaad on 04-21-2023 Actin smooth muscle IgG Qn (S) 13 Units 0-19 [facility] Comment on above: Negative 0 - 19 Weak positive 20 - 30 Moderate to strong positive >30 Actin Antibodies are found in 52-85% of patients with autoimmune hepatitis or chronic active hepatitis and in 22% of patients with primary biliary cirrhosis. Pfwob-0-Bgvtewczfcn Phenotyp meri 04-21-2023 Alpha 1 Anti-Trypsin 139 mg/dL Normal 95-164 [facility] Comment on above: Order Comment: Reaso n for Exam Elevated LFTs Performed By: #### M ITOM2, L-K MICRO, ALPHA PHEN, HEMOCHROM, CERULOP, TENA, IGG, SMAB #### [facility] , #### PARVEEN, TSH3 #### [address] Phenotype (P1) MM Normal . [facility] Comment on above: Order [...] used to confirm phenotype. Performed at: - [facility] [address] [id number] President & Founder: Zechariah Paula PhD, Phone: [phone] Performed at: - [facility] [address] [id number] President & Founder: Aston Omalley MD, Phone: [phone] Performed By: #### M ITOM2, L-K MICRO, ALPHA PHEN, HEMOCHROM, CERULOP, TENA, IGG, SMAB #### [facility] , #### PARVEEN, TSH3 #### [address] Blood or tissue HFE gene mut ations identification by molecular genetics methodOrdered By: Wilver Felton on 04-21-2023 HFE gene targeted mutation analysis [employer] Nom (Bld/Tiss) See comment . [facility] Comment on above: Result:c.845G>A (p.C bv883Tmv) - Not Detectedc.187C>G (p.Bzs14Nxu) - Not Detectedc.193A>T (p.Ztt21Xgb) - Not DetectedNot associated with increased risk [...] recommended for patientswho are homozygous for c.845G>A (p.Nuq209Jfv) and have yetto experience clinical symptoms.Comments:The most common HFE variants associated with hereditaryhemochromatosis are c.845G>A (p.Mhk343Xjl), c.187C>G(p.Uqb30Sfm), c.193A>T (p.Sra92Mtn). While patientshomozygous for c.845G>A (p.Mzc063Gln) are the most likelyto present clinical symptoms, less than 10% developclinically significant iron overload with tissue and organdamage.Genetic counseling is recommended to discuss the potentialclinical implications of positive results, as well asrecommendations for testing family members.Genetic Coordinators are available for health careproviders to discuss results at [phone]).Test Details:Three variants analyzed:c.845G>A (p.Aul388Rka), commonly referred to as C282Yc.187C>G (p.Plx20Acz), commonly referred to as H63Dc.193A>T (p.Hnm89Taj), commonly referred to as W80YXhpcfej/Limitations:DNA Analysis of the HFE gene (NM_000410.4) was [...] was developed and its performancecharacteristics determined by [facility]. It has not beencleared or approved by the Food and Drug Administration.References:Paul BR, Joseph PC, Mohini KV, Christiano LW, Erick ;[place] Association for the Study of Liver Diseases.Diagnosis and management of hemochromatosis: 2011 practiceguideline by the [place] Association for the Study ofLiver Diseases. Hepatology. 2010;54(1):328-43. doi:10.1002/hep.56267. PMID: 45582862; PMCID: [id number].Surekha G, Shorty P, Hailey DW, Tor H, Corrine O,Simón S, Guerrero Castellanos, Alireza Bradford, Holly Sherwood. EMQN best practiceguidelines for the molecular genetic diagnosis ofhereditary hemochromatosis (HH). Eur J Hum Meliza. 2016Apr;24(4):479-79. doi: 10.1038/ejhg.2015.128. Epub 2014. PMID: 62827811; PMCID: [id number]. Ceruloplasminon 04-21-2023 Ceruloplasmin 23.7 mg/dL Normal 16.0-31.[address] [facility] Comment on above: Order Comment: Reaso n for Exam Elevated LFTs Result Comment: Perf ormed at: CB - [facility] [address] [id number] President & Founder: Zechariah Paula PhD, Phone: [phone] PERFORMED BY: [place] [address] [address]CAR REPAIRER HELPER LISA COOLEY M.D. Performed By: #### M ITOM2, L-K MICRO, ALPHA PHEN, HEMOCHROM, CERULOP, TENA, IGG, SMAB #### [facility] , #### PARVEEN, TSH3 #### [facility] [address] [place] [address] Ferritin [Mass/volume] in Se rum or PlasmaOrdered By: Wilver Felton on 04-21-2023 Ferritin [Mass/Vol] 59.0 ng/mL Normal 23.9-336.2 [facility] Comment on above: Order Comment: Reaso n for Exam Elevated LFTs Reason for Exam Fatigue Performed By: #### M ITOM2, L-K MICRO, ALPHA PHEN, HEMOCHROM, CERULOP, TENA, IGG, SMAB #### [facility] , #### PARVEEN, TSH3 #### [facility] [address] [place] [address] Hereditary Hemochromatosis,D NAon 04-21-2023 Hereditary Hemochromatosis Normal . [facility] Comment on above: Order Comment: Reaso n for Exam Elevated LFTs Result Comment: Resu lt: c.845G>A (p.Kiq960Cpm) - Not Detected c.187C>G (p.Jlt14Ujp) - Not Detected c.193A>T (p.Onz80Ynm) - Not Detected Not associated with increased [...] for patients who are homozygous for c.845G>A (p.Onw318Bpr) and have yet to experience clinical symptoms. Comments: The most common HFE variants associated with hereditary hemochromatosis are c.845G>A (p.Jqq045Fqi), c.187C>G (p.Tto09Dal), c.193A>T (p.Pfw63Gxl). While patients homozygous for c.845G>A (p.Fop994Bku) are the most likely to present clinical symptoms, less than 10% develop clinically significant iron overload with tissue and organ damage. Genetic counseling is recommended to discuss the potential clinical implications of positive results, as well as recommendations for testing family members. Genetic Coordinators are available for health care providers to discuss results at [phone]). Test Details: Three variants analyzed: c.845G>A (p.Gok869Isn), commonly referred to as C282Y c.187C>G (p.Gaf30Rqk), commonly referred to as H63D c.193A>T (p.Kbk55Ydf), commonly referred to as S65C Methods/Limitations: DNA [...] developed and its performance characteristics determined by [facility]. It has not been cleared or approved by the Food and Drug Administration. References: Paul BR, Joseph PC, Mohini KV, Christiano LW, Erick ; [place] Association for the Study of Liver Diseases. Diagnosis and management of hemochromatosis: 2011 practice guideline by the [place] Association for the Study of Liver Diseases. Hepatology. 2011 Nov;54(1):328-43. doi: 10.1002/hep.33217. PMID: 91415958; PMCID: [id number]. Surekha G, Shorty P, Hailey DW, Tor H, Corrine O, Simón S, Guererro I, Alireza Bradford, Holly Sherwood. [facility] best practice guidelines for the molecular genetic diagnosis of hereditary hemochromatosis (HH). Eur J Hum Meliza. 2016 Aug;24(4):479-95. doi: 10.1038/ejhg.2015.128. Epub 2014Nov 15. PMID: 39017936; PMCID: [id number]. Performed By: #### M ITOM2, L-K MICRO, ALPHA PHEN, HEMOCHROM, CERULOP, TENA, IGG, SMAB #### [facility] , #### PARVEEN, TSH3 #### [facility] [address] Reviewed by: Normal . [facility] Comment on above: Order Comment: Reaso n for Exam Elevated LFTs Result Comment: Tech nical Component performed at [facility] [place] Professional Component performed by: Daniella Birch, Ph.D., [facility] Director, Molecular Genetics [address] [place] [address] [place] [address] Performed at: - [facility] [place] [address] [facility], [facility], [place] [id number] President & Founder: Dinesh Davis [facility], Phone: [phone] PERFORMED BY: [place] [address] [address]CAR REPAIRER HELPER LISA COOLEY M.D. Performed By: #### M ITOM2, L-K MICRO, ALPHA PHEN, HEMOCHROM, CERULOP, TENA, IGG, SMAB #### [facility] , #### PARVEEN, TSH3 #### [address] IgG [Mass/volume] in Serum o r PlasmaOrdered By: Imariana Felton on 04-21-2023 IgG [Mass/Vol] 1272 mg/dL 671-1456 [facility] Comment on above: Performed at: [facility] [address] [id number] Director: Zechariah Paula PhD, Phone: [phone] Immunoglobulin Asaf Immunoglobulin G 1272 mg/dL Normal 671-1456 [facility] Comment on above: Order Comment: Reaso n for Exam Elevated LFTs Result Comment: Perf ormed at: [facility] [id number] President & Founder: Zechariah Paula PhD, Phone: [phone] Performed By: #### M ITOM2, L-K MICRO, ALPHA PHEN, HEMOCHROM, CERULOP, TENA, IGG, SMAB #### [facility] , #### PARVEEN, TSH3 #### [address] Liver-Kidney Microsomal Abon 04-21-2023 Liver-Kidney Microsomal Ab 1.5 Normal 0.0-20.0 [facility] Comment on above: Order Comment: Reaso n for Exam Elevated LFTs Result Comment: Nega tive 0.0 - 20.0 Equivocal 20.1 - 24.9 Positive >24.9 LKM type 1 antibodies are detected in patients with autoimmune hepatitis type 2 and in up to 8% of patients with chronic HCV infection. Performed at: [facility] [address] [id number] President & Founder: Zechariah Paula PhD, Phone: [phone] Performed By: #### M ITOM2, L-K MICRO, ALPHA PHEN, HEMOCHROM, CERULOP, TENA, IGG, SMAB #### [facility] , #### PARVEEN, TSH3 #### [address] Mitochondrial (M2) Antibodyo n 04-21-2023 Mitochondrial (M2) Antibody <20.0 Normal 0.0-20.0 [facility] Comment on above: Order Comment: Reaso n for Exam Elevated LFTs Result Comment: Nega tive 0.0 - 20.0 Equivocal 20.1 - 24.9 Positive >24.9 Mitochondrial (M2) Antibodies are found in 90-96% of patients with primary biliary cirrhosis. Performed By: #### M ITOM2, L-K MICRO, ALPHA PHEN, HEMOCHROM, CERULOP, TENA, IGG, SMAB #### [facility] , #### PARVEEN, TSH3 #### [facility] [address] [place] [address] No Panel InformationOrdered By: Wilver Felton on 04-21-2023 Anti-Nuclear Antibody Comment 2 See comment . [facility] Comment on above: Pattern Potential Di sease Association Homogeneous Systemic Lupus Erythematosus, Drug Induced Systemic Lupus Erythematosus, Chronic Autoimmune hepatitis, Juvenile Idiopathic Arthritis Speckled Sjogren Syndrome, Systemic Lupus Erythematosus, Subacute Cutaneous Lupus, Lupus, Congenital Heart Block, Mixed Connective Tissue Disease, Scleroderma-diffuse, Scleroderma-Autoimmune Myositis Overlap Syndrome, Systemic Lupus Iibgbyzlrhpnv-Xnkcxvgmwuc-Ttgsscjtdd Myositis Overlap Syndrome, Systemic Autoimmune Rheumatic Disease, [...] Cytopenias, Linear Scleroderma, Antiphospholipid Syndrome Performed at: [facility] [place], [place] [id number] Director: Zechariah Paula PhD, Phone: [phone] Hemochromatosis Note See comment . [facility] Comment on above: Technical Component performed at [facility] RTPProfessional Component performed by:Daniella Birch, Ph.D., FACMGDirector, Molecular Uemlwopc[address] [facility] [place] [address]Pjzyjnkpn at: [facility] [id number] [facility], [place], [place] [id number] Director: Dinesh Davis [facility], Phone: [phone] Serum tpvqg-9-jbhnywfqqse me asurementOrdered By: Wilver Felton on 04-21-2023 Alpha 1 antitrypsin [Mass/Vol] 139 mg/dL 95-164 [facility] Serum homogeneous pattern an tinuclear antibody (TENA) titerOrdered By: ariana Felton on 04-21-2023 Homogenous nuclear Ab pattern (S) [Titer] 1:160 . [facility] Comment on above: ICAP nomenclature: A C-1 Serum mitochondria M2 IgG an tibody assay (units/volume)Ordered By: ariana Jackson on 04-21-2023 Mitochondria M2 IgG Qn (S) <20.0 Units 0.0-20.0 [facility] Comment on above: Negative 0.0 - 20.0 Equivocal 20.1 - 24.9 Positive >24.9Mitochondrial (M2) Antibodies are found in 90-96% ofpatients with primary biliary cirrhosis. Serum nuclear antibody titer Ordered By: Wilver Felton on 04-21-2023 Nuclear Ab (S) [Titer] Positive . [facility] Comment on above: Negative <1:80 Borde rline 1:80 Positive >1:80 Serum or plasma alpha 1 anti trypsin phenotyping identification by immunofixationOrdered By: Wilver Felton on 04-21-2023 Alpha 1 antitrypsin phenotyping Immunofixation Nom Mm . [facility] Comment on above: Phenotype Population A-1-AT [...] Ranges used to confirm phenotype.Performed at: [address] [id number] Director: Zechariah Paula PhD, Phone: [phone] at: [address] [id number] Director: Aston Omalley MD, Phone: [phone] Serum or plasma ceruloplasmi n measurement (mass/volume)Ordered By: Wilver Felton on 04-21-2023 Ceruloplasmin [Mass/Vol] 23.7 mg/dL 16.0-31.0 [facility] Comment on above: Performed at: [address] [id number] Director: Zechariah Paula PhD, Phone: [phone] Serum or plasma lipoprotein a measurement (moles/volume)Ordered By: Wilver Felton on 04-21-2023 Lipoprotein a [Moles/Vol] 1.5 Units 0.0-20.0 [facility] Comment on above: Negative 0.0 - 20.0 Equivocal 20.1 - 24.9 Positive >24.9LKM type 1 antibodies are detected in patients withautoimmune hepatitis type 2 and in up to 8% ofpatients with chronic HCV infection.Performed at: [address] [id number] Director: Zechariah Paula PhD, Phone: [phone] Smooth Muscle Antibodyon Smooth Muscle Antibody 13 Normal 0-19 [facility] Comment on above: Order [...] #### [facility] , #### PARVEEN, TSH3 #### [address] Thyrotropin [Units/volume] i n Serum or PlasmaOrdered By: Imad Asaad on 04-21-2023 TSH Qn 1.24 m[IU]/L Normal 0.45-5.33 [facility] Comment on above: Order Comment: Reaso n for Exam Elevated LFTs Reason for Exam Fatigue Result Comment: PERF ORMED BY: [place] [address] [address]CAR REPAIRER HELPER LISA COOLEY M.D. Performed By: #### M ITOM2, L-K MICRO, ALPHA PHEN, HEMOCHROM, CERULOP, TENA, IGG, SMAB #### [facility] , #### PARVEEN, TSH3 #### [place] [id number] [facility] Miscellaneouson 04-07-2023 Miscellaneous [id number]#1.00OT GTIFF [facility] Miscellaneous [id number]#1.00OT GTIFF [facility] Outside Recordson 03-24-2023 Outside Records [id number]#1.00OTG TIFF [facility] Alanine aminotransferase [En zymatic activity/volume] in Serum or PlasmaOrdered By: Imad Asaad on 03-19-2023 ALT [Catalytic activity/Vol] 48 U/L 7-52 [facility] Albumin [Mass/volume] in Ser um or Plasma by Bromocresol green (BCG) dye binding methoOrdered By: Imad Asaad on 03-19-2023 Albumin BCG dye [Mass/Vol] 4.3 g/dL 3.5-5.7 [facility] Alkaline phosphatase [Enzyma tic activity/volume] in Serum or PlasmaOrdered By: Imad Asaad on 03-19-2023 ALP [Catalytic activity/Vol] 60 U/L 34-104 [facility] Aspartate aminotransferase [ Enzymatic activity/volume] in Serum or PlasmaOrdered By: Imad Asaad on 11-09-2023 AST [Catalytic activity/Vol] 27 U/L 13-39 [facility] Bilirubin.direct [Mass/volum e] in Serum or PlasmaOrdered By: [facility] Manuel on 03-19-2023 Bilirubin.direct [Mass/Vol] 0.10 mg/dL 0.03-0.18 [facility] Bilirubin.total [Mass/volume ] in Serum or PlasmaOrdered By: [facility] on 03-19-2023 Bilirubin [Mass/Vol] 0.8 mg/dL 0.3-1.0 [facility] Globulin Calc (S) [Mass/Vol] Ordered By: [facility] on 03-19-2023 Globulin (S) [Mass/Vol] 2.8 g/dL [facility] Hepatitis B virus surface Ab [Units/volume] in SerumOrdered By: [facility] on 03-19-2023 HBV surface Ab Qn (S) >1000.0 mIU/mL Immu nity>9 .9 [facility] Comment on above: Status of Immunity A nti-HBs Level Inconsistent with Immunity 0.0 - 9.9Consistent with Immunity >9.9 Hepatitis B virus surface Ag [Presence] in Serum or Plasma by ImmunoassayOrdered By: ariana Felton on 03-19-2023 HBV surface Ag IA Ql Negative Negative [facility] Hepatitis C virus IgG Ab [Pr esence] in Serum or Plasma by ImmunoassayOrdered By: ariana Jackson 03-19-2023 HCV IgG IA Ql Non-Reactive Non Reactive [facility] No Panel InformationOrdered By: [facility] on 03-19-2023 Hepatitis A IgM Antibody Negative Negative [facility] Hepatitis B Core IgM Antibody Negative Negative [facility] Comment on above: Performed at: [address] [id number] Director: Zechariah Paula PhD, Phone: [phone] Hepatitis B Core Total Antibody Negative Negative [facility] Hepatitis B DNA Test Information See comment . [facility] Comment on above: The reportable range for this assay is 10 IU/mL to 1billion IU/mL.Performed at: - [facility] [id number] Director: Aston Omalley MD, Phone: [phone] Hepatitis C Interpretation See comment . [facility] Comment on above: Not infected with HC V unless early or acute infection issuspected (which may be delayed in an immunocompromisedindividual), or other evidence exists to indicate HCVinfection. Protein [Mass/volume] in Ser um or PlasmaOrdered By: Wilver Felton on 03-19-2023 Protein [Mass/Vol] 7.1 g/dL 6.4-8.[address] [facility] Serum hepatitis B virus surf daniel antibody detectionOrdered By: Wilver Felton on 03-19-2023 HBV surface Ab Ql (S) Reactive . [facility] Comment on above: Non Reactive: Incons istent with immunity, less than 10 mIU/mL Reactive: Consistent with immunity, greater than 9.9 mIU/mL Serum or plasma albumin/glob ulin mass ratioOrdered By: Wilver Felton on 03-19-2023 Albumin/Globulin [Mass ratio] 1.5 {ratio} [facility] Serum or plasma hepatitis B virus DNA measurement (units/volume) (viral load) by probOrdered By: Wilver Felton on 03-19-2023 HBV DNA GITA+probe Qn Not detected . [facility] Serum or plasma hepatitis B virus DNA viral load by probe and target amplification meOrdered By: ariana Felton on 03-19-2023 HBV DNA GITA+probe [Log units/Vol] See comment . [facility] Comment on above: Result Units: log10 IU/mLUnable to calculate result since non-numeric resultobtained for component test. Serum or plasma non-glucuron idated bilirubin measurement (mass/volume)Ordered By: Wilver Felton on 03-19-2023 Bilirubin.indirect [Mass/Vol] 0.7 mg/dL [facility] 03-03-2023 Outside Records [id number] TIFF [facility] 02-19-2023 Outside Records [id number] [facility] Coding Summaryon 02-16-2023 Coding Summary HTMLBase 64 ZeaxdiclLQw5cJp+PGhlYWQ+ WM2CCALaZ79ujLMogG1fU3DM TElOSywgQVBQTElOSyIgbmFt AI9yaWJxHKAk IC8+ZM7jSGIbDzkzsIQvb3K9 zDL9W03ubl5rOUetvTU8UJTt XxLruwobo7pymJt5HHbcJmbj OyBt QUDgsJ60SKV9dO59Fn69jKLy yQJsi3flcOe6IoMuCGGwHZV5 aFdeCEqgi7WgPHWfG87mbUNe c2U6 GLMdmVrrkAQhEuGeiGV2oH1v MEwqoluso8simqztIoq3dr09 tSNex3P9eYB1H4GxkuN0TXDg bGQg FycudTLEhW3bzkpwz7bxxbui WiFbWUJsJRz9MDr0VNShiBvm FdYyVZ98DCA4QONwxxCdK5Jw LWFs fTcmJjR4w2R3Jw1HD2ZTWrvz I2MMYYDTPEokhJN+EK10uj63 D6SkNegiKtb6OORgTJM3pVZ7 aD0n LQQuGIjqj5W2yQP0N1LpgbUb dm0qy7fcCWJtQMmkJ96gqJCs r9R9EEWipKA6KRBuiVwvOyIc aG93 Oyc+GJKcmUbsl7VuGbcax2yt j4tvnAg1PebbFYJbehXskKoa FAE6z1HrWr9tCOQisSD3hWI0 aD0i NeGmKcD1HQixE928XeCdiPFy BchjB52xQ6TqwAM+PHRyPjx0 QFHytPtqQR8iU0BqVNBfdzyc bGVm dVpqGW9fCUHvukhdFSZijE7c UOHfW8z6VqMqPsK7CTbeR3Of WWWhlucnIu21aT3dZwReHfP5 MGlu N7GanxK4LVGagZPeRFqwEPA0 P66em7R9TSFaLJTbTLI0xMN6 pZ9nhElliwqdhGQjbJshziTt dGlj OUhlTYouB896LVLziXaiTxIc ZGluZyBEYXRlOiAgMTAvMDkv MjAyMzwvdGQ+HMFqWYA7fEio PSAn jJMcOJmrEa1crGzkoLjmSF4b YJLhoxnvJFNgbT6jTXZmhJIf dXfxDK0mTQRechsha592YoXe MHB0 SXQeeFPxO4NebB4aOtErZINr RZDdU7DczKXbJYadR836CPhz JpA3DHQzyvVgV1WrUNIviUqj OiB0 x1U9Mg9Wr0YmnrgmS3YuoJZk HxTxAfpvIKn0Q5ZjDeyysCS+ JU40JXVaKX42MJe0LCS7wDlh PSdi IJMjH5BztQ3qRoIuJUUtKOLr Oyc+PHRhYmxlIHdpZHRoPScx VKJpOdEkwQcaFT2fQc8fYMSe LWNv nFoixNChTqNyi8oqSRNrKRzp PV7tfBfhW1WyyYD7QSMos7t4 Fv24F15vP9OqwJK+PGNvbCB3 aWR0 pI5rEoVdUaH8BJvdX048OjZj mKYuUfvts2mwb5lxqTk0SnN4 IOImiqOzjNvyXJQ2p4DtPg72 Y29s IHdpZHRoPSIxNSUiIHZhbGln jt0vnW6dVz5+XJKsoAH9rJL0 nB2fFbZnKaI1UFcjE222QrXy cCIv Cndvf7qsp6awoCh2OjPeRWPr uaSslHqyGSL3a3EoMl76G1Xt mCoij0HjGhx3rc77fALsl0E2 bGU9 Z8TdOBUdsfkzuGHntNcqWK6v WPRwlzttRIZpkV3wOPUrW3l2 LfSvNxJ4LGypL0SdohG2HPYi bGQg ONXjoJYEcO8vydrut4ipnmma DrXkHYUnBXh0WWv3QYTrbKir EzNkOWA6JkB1MBH8jTAubA8k bGln doiouE5sLqh+KLS2iSKwuIGE SI6kFdgjyNX+XWNkTRJ3gBlt RHxzYVMiaZ1qSIAeV4m9EbVu LjA1 TLohA9WfylT8YBUvvSHlXHJk uFJHlM3zhfrzn2wmoaumEhAk AEGjXBs8CWl2PIWpdRlwTcAf ZWZ0 TkG7VDU9oQMjsM0ntNlxhqod tF3hVgc+IyqjwOhrACE9SIa5 T7OdOev9GDKuwTywAI1vrJKi ZGlu Vj4fqHjtiLroFC7xYTDrigbn f254XjDno4ccTMDovWUdNXfg YOW5Y12fd2L8VXKsLFArNYV4 dGV4 lO0saCqwoemcqSSlrAbujuOp nEnkOEeaOHuuU808HBGivIfq ZyIvKSx1U8OwOxi7ABXgbYam ZT0n rKBbUIgeOe0uzZdkoRyaYZ3v YKLgplmvp686WxTre4dhSSEc jWQaATwnDRT5L28yg3T3VAPe MDAw XGP2kGE4cI1xaLilxrinaEBv vYprweIafHtiSShxUWspI336 FIFtcIdbDxRxoLl4P5HqWeb4 ZCBz eTfbCS3wtJAwJBdpPa8pgCbj eGvkPH3aMVIlqzicy796AfUg p9plVNVmdFJhBLhdTEY2B30r b3I6 SQBtCPZrMNZ9xVM6sH3ldVqv bjogbGVmdDsgdmVydGljYWwt PAktU657TDLveWmbXnZepYao bnQg QQkfZOv5V3HeYchznLD+PC90 QORvPV39bNAzgUYij1nbgZb0 AaKvSFMhWYL7rBadAYfaj5Sc ZXIt U33eiYWqy3L0BCGxhYljcPOa LzIcyCO2bM6vFNrtvavms2pa tlwpNxfcr1eurf54uI30U53c IHdp JJWsULDnGAXzAPQntQoqac0z zY0yDh4+QXYhoZV2uOH8yZ2f AHCoKxR3REsoF645BfPimDOr Pjxj b5jxv6lqwFk1RwC7EGGhzwGy aHfdTII1m5AvLc74J01nMFjy RRLjFXGsSGVnCWWogHfgrm4a dG9w Ii8+CBBflJO2pTZ4cD2pJjRl YeJ3GZwhD248FkKlbOLnJcno N05vU5NhlND+JXTmVyf9CECt dHls DP7caPAdNLkrSc4kQZA5ArOe QuYdQVbuS3ZyCJFjkqahyalr fNQ3GVIqPGXctJ73Yd3kjExt MTBw hCEMpH6ctyngs6ytcuxyYbSw IOIlDLs0PMe8IEUmyEprTtZx KMP3SuD3RNM2eITbjB4jaJiw bjog oM2pT9AbMXGxbtyzOk27gO8h TlEsTaR6AVjxUxg+QkFVRVIs IEdBVkVOIEFORFJFVzwvdGQ+ PHRk LFX3bZlaTOmwUPNwkU6gBZFz W2s8LcNcJqV5XBxjG8TvXNFa rfhqTc26kR2vZaXoNmM9HXjm O2Zv teY6VZZrdLEjYAzbCUD9O97t e5E7EHNlSEEkMZT6iTS5wD7r bGlnbjogbGVmdDsgdmVydGlj YWwt EXctA795EGMmmPdtLxRsFoNx JwOrCRO7J7WbTkt3JAGpjNrt QF9xxKEnDQwbPg2gbWdicLgn MC4w AYQppfdzRPKgfK0xBSQfsLYw fOltBP2sCRVbsratc510TgOw SUH0QSYhyRPuO6SfmF7kVyHx MDAw GRAxV4FhfMDkUHipW992LPxn KtG3OIJjakRgZ5EwGNRrdAdg YjM4m6R3Ic4fSYMLDDWjpwac dGQ+ HSEiTBN7vXspLWvoFDFbmD3x ABCdA6c4HoJsUiK1JBssJ5Qm WHRolpkjGt49eM0mDmRzJgK4 MGlu A8MdqmA0MFKpyWBfFRjnRTX5 V06dp3A5NYNoXYWdRRO1nVA7 hT9umTydjohueLCuvPepfmZk dGlj CBolBDoxU813LJPynTbfCa4Z UEV0U4EbVht1QMDmkMexTT7a rUIkLYgaFn7sdLqljJebXN8f NTBp kaklLBPoiH5pUPScqIXfhAtv AC6pIKHinwsky868GmKbOFC9 RGSoxHIxB0XtwT2uMrEuCECx MDAw E2IdzDCbIRrqN928OTyvPuE1 YMYeigByX5CaJKMhhUipMkF0 c0S6Uv9QZKfviQX+XZ77le96 L3Rh HegxMod1PCCyMQX5tIE1hB1k CCUiLCkjs1G9qUZ8P4XizhYl gy0lr4eeBNOqCGbhU30ubGOa c2U7 ISUpyKN7FPTlsVhoDpAyqX15 Oyc+DPRazNfzb2MxVuuml3zn r6tgxVh2CcBwZNAgupBxsLuk PSJ0 n8IgYv14A52dWAryVXYcCRNu ANReJNItlXdtpj7joK8gFw7+ MOHyeKP9sVR4nA6zZbEnKvP1 YWxp W495CcAxpXWiHxxvg2yuy8uc bCr9ZxHuBMObryMkuDrbBJW3 f8HmWc50G7EowKied8DbPed8 cj48 yEVym8M7wOD4A9PdGOXirirw oZAxoJkwMH5oFCFwsehwEAGt hK2sKIPsX1w7OwOsTtN3KTam O2Zv vvU2PHHppWAlBOObnYQLoY5h laldi1pznguqFdYoNUIrMPg0 GEp4FBXrdBtfJsGnZCD6AmK3 ZXJ0 aROdqM8rdUidrjtwvN2oWwy+ TGn5w2nahCSvZM8geTQ0TU99 CK33sMOjb7P8gIX0P8QiMDNw bmct mssxoWH8BFNuTEEzfI94Rg4r bEctHs4tAANxMRN2RPEmbRDn H3UvyA9cFkFuPVRrJNPaW0Io eHQt IFocS829FPjhMqM4VHNeloUc H9WfQGYyeYenVeW5g8H2Im1U UW49XE09CJ88yQScy9M2uOA1 J3Bh UMEsmubywpxspBZ2LELzIDZy nM93Mp3tmBlvVr2mYRYrQTN6 EMNetAJnC0SjkX8aKgMmPLZk MDAw S0GfsTBhAMpyN211YDlrOlQ2 ZAIpocMfL6AdZNNshWevYgM8 j0O5Qw7GTv45PH47KE33yPCu c3R5 xMH5L5PxRUKozyfzqsbhzPN7 WEDeDNGflG61Tj8qiJueUv1u TFVeSTB8CIHvzPNuF3AuaJ1s OiAj ZKYfSVKcT8ZbeXYvKSwkH636 FUxrEoP6IOXgjhUnR2IpAWAi qNmkZlU2m4M2Mx1BXVmaxcm4 L3Rk PjwvdHI+IJ91ZZZxOY49tUAt wCGfn9oboEp7ZsKlPAFeCXA8 eGspMEzxn6GkPXOoE84lfJAp c2U6 IGN (more content not included)... Normal [facility] Reminder Messageson 02-17-20 Reminder Messages - From: BALJIT PISANO DO To: [facility] Clinical Pool ([facility]); Sent: 02/12/2023 15:32:57 EDT ! [...] % (14 - 48) 02/12/2023 13:38 Auto Maui % 12 % (1 - 12) 02/12/2023 13:38 Auto Eos % 2.0 % (0.9 - 4.0) 02/12/2023 13:38 Auto Baso % 0.8 % (0.2 - 2.0) 02/12/2023 13:38 Neut Abs# 3.4 x103/mcL (1.5 - 9.2) 02/12/2023 13:38 Lymph Abs# 1.7 x103/mcL (1.3 - 2.9) 02/12/2023 13:38 Maui Abs# 0.7 x103/mcL (0.0 - 0.8) 02/12/2023 13:38 Eos Abs# 0.1 x103/mcL (0.0 - 0.4) 02/12/2023 13:38 Baso Abs# 0.0 x103/mcL (0.0 - 0.2) attempted to contact patient, unable to LM, multiple rings, no VM Patient returned tamra and was notified of results. Normal [facility] .Auto Diff 1on 02-12-2023 Auto Maui % 12 % Normal -12 [facility] Comment on above: Performed By: #### 1 [id number], [id number], [id number] ####[facility] (DEFAULT)[address] [place] [address] Baso Abs# 0.0 x10 Normal 0.0-0.2 [facility] Comment on above: Performed By: #### 1 [id number], [id number], [id number] ####[facility] (DEFAULT)[address] [place] [address] 44257 Basophils/100 WBC (Bld) 0.8 % Normal 0.2-2.0 [facility] Comment on above: Performed By: #### 1 [id number], [id number], [id number] ####[facility] (DEFAULT)[address] [place] [address]1460 Eos Abs# 0.1 x10 Normal 0.0-0.4 [facility] Comment on above: Performed By: #### 1 [id number], [id number], [id number] ####[facility] (DEFAULT)[address] [place] [address] 38759 Eosinophils/100 WBC (Bld) 2.0 % Normal 0.9-4.0 [facility] Comment on above: Performed By: #### 1 [id number], [id number], [id number] ####[facility] (DEFAULT)[address] [place] [address] 38555 Lymph Abs# 1.7 x10 Normal 1.3-2.9 [facility] Comment on above: Performed By: #### 1 [id number], [id number], [id number] ####[facility] (DEFAULT)[address] [place] [address] 36838 Lymphocytes/100 WBC (Bld) 28 % Normal 14-48 [facility] Comment on above: Performed By: #### 1 [id number], [id number], [id number] ####[facility] (DEFAULT)[address] [place] [address]014 Maui Abs# 0.7 x10 Normal 0.0-0.8 [facility] Comment on above: Performed By: #### 1 [id number], [id number], [id number] ####[facility] (DEFAULT)[address] [place] [address] 56027 Neut Abs# 3.4 x10 Normal 1.5-9.2 [facility] Comment on above: Performed By: #### 1 [id number], [id number], [id number] ####[facility] (DEFAULT)[address] [place] [address] 46993 Neutrophils/100 WBC (Bld) 57 % Normal 44-88 [facility] Comment on above: Performed By: #### 1 [id number], [id number], [id number] ####[facility] (DEFAULT)[address] [place] [address] CBC w/ Auto Diffon Erythrocyte distribution width (RBC) [Ratio] 12.9 % Normal 11.5-15.0 [facility] Comment on above: Performed By: #### 1 [id number], [id number], [id number] #### [facility] (DEFAULT) [address] [place] [address] Hematocrit (Bld) [Volume fraction] 42.2 % Normal 34.8-51.9 [facility] Comment on above: Performed By: #### 1 [id number], [id number], [id number] #### [facility] (DEFAULT) [address] [place] [address] Hemoglobin (Bld) [Mass/Vol] 14.7 g/dL Normal 11.8-17.7 [facility] Comment on above: Performed By: #### 1 [id number], [id number], [id number] #### [facility] (DEFAULT) [address] [place] [address] Man Diff? Auto Invalid Interpretation Code [facility] Comment on above: Performed By: #### 1 [id number], [id number], [id number] #### [facility] (DEFAULT) [address] [place] [address] MCH (RBC) [Entitic mass] 30 pg Normal 24-34 [facility] Comment on above: Performed By: #### 1 [id number], [id number], [id number] #### [facility] (DEFAULT) [address] [place] [address] MCHC (RBC) [Mass/Vol] 35 g/dL Normal 26-37 [facility] Comment on above: Performed By: #### 1 [id number], [id number], [id number] #### [facility] (DEFAULT) [address] [place] [address] MCV (RBC) [Entitic vol] 86 fL Normal 81-100 [facility] Comment on above: Performed By: #### 1 [id number], [id number], [id number] #### [facility] (DEFAULT) [address] [place] [address] 19197 Platelet 254 x10 Normal 138-427 [facility] Comment on above: Performed By: #### 1 [id number], 6377133, [id number] #### [facility] (DEFAULT) [address] [place] [address] 02323 Platelet mean volume (Bld) [Entitic vol] 8.6 fL Normal 6.3-10.2 [facility] Comment on above: Performed By: #### 1 [id number], [id number], [id number] #### [facility] (DEFAULT) [address] [place] [address] RBC 4.89 x10 Normal 3.70-5.30 [facility] Comment on above: Performed By: #### 1 [id number], 2566736, [id number] #### [facility] (DEFAULT) [address] [place] [address] WBC 5.9 x10 Normal 3.5-10.5 [facility] Comment on above: Performed By: #### 1 [id number], [id number], [id number] #### [facility] (DEFAULT) [address] [place] [address] 32186 Liver Enzymeson 02-12-2023 Alk Phos 56 IU/L Normal 32-91 [facility] Comment on above: Performed By: #### 1 [id number], 6321565, [id number] ####[facility] (DEFAULT)[address] [place] [address] 57526 ALT [Catalytic activity/Vol] 53.0 U/L High 8.0-36.0 [facility] Comment on above: Performed By: #### 1 [id number], [id number], [id number] ####[facility] (DEFAULT)[address] [place] [address] 43135 AST [Catalytic activity/Vol] 35 U/L Normal 13-38 [facility] Comment on above: Performed By: #### 1 [id number], [id number], [id number] ####[facility] (DEFAULT)[address] [place] [address] Gamma glutamyl transferase [Catalytic activity/Vol] 31.0 U/L High 7.0-26.0 [facility] Comment on above: Performed By: #### 1 [id number], 9978638, [id number] ####[facility] (DEFAULT)[address] [place] [address] Coding Summaryon 01-16-2023 Coding Summary HTMLBase 64 JarugsnmKRk7tBg+PGhlYWQ+ DR7KPOCgN54rnCNvwP2wR7FA TElOSywgQVBQTElOSyIgbmFt OG9zcOIcWMCr IC8+VH8hRMBgCnoemLZug1V4 aWX4W52nmi9dWEpjdJB6SYUj WgHngxokh9fbzOp7XXasShmq OyBt PNGnkM62WGU6dG74Ss46hRSr mSIsy2mvoLk2CoXaVAUsNII1 aHmnLAwwb5QjXSXlA88onKSo c2U6 CHJbgOklnOCySlHlhMY6fX7y RIjnmqrnh5vbivpcMgf3ta87 bBHyn7V2fSW8B2TrkkI0BAYa bGQg ModalQZGbP3oazigs7akjslm HrTpWACjSWy0KOe8UYNqbYcg SwXaRS33WRI5TMXqhjAsM6Vv LWFs pLsgFsF3a2J2Ao3BZ9LEYbid U0IFVLWCXOojfEO+CD95dt66 P0AhCkjbHjn8DCOfPQA9rMC5 aD0n IKXmNUxui4A4fUV1K5FhnqGs xp1fk8pnPOMiPScsO94czMJr m5F1NAPvfJZ3WZRteKixExWc aG93 Oyc+BNAfpLpmj5UhDpokg0qx k7fxvLg6MyzyKCCzebJmcUcf DJU8s8DrYm8pXNChiFO6wRH5 aD0i VvDoUxM9JIgoQ477TeLrsDXk NmvhO40iN0AnxYL+PHRyPjx0 AUOlaOoyPS3lR0JjPXHmemda bGVm xKyvRU2oCDMcmxfuSFCiuK8r ZIBrZ2f6IsWbDuN7ROltJ3Yl XGSufarsTr74gD1fRqSfMmR7 MGlu G7NhijB2HRHpxSPnGTloMGA4 O27ii1D1QUZfILMpIYO0xKZ0 fD6fzQceefaijWHdaXaovzOc dGlj LZdjZDqiI881JGPmcLnhLqXx ZGluZyBEYXRlOiAgMDkvMDgv MjAyMzwvdGQ+RQGaEBG8iBjq PSAn gVCiVNalRp0joDkorGtsON4i KRGoetwqVWDusX2sMAJwlCGy aJubBQ6dSYUbrolog884EnBk MHB0 QSSjoGOoH2WdhJ9fFyXfCCCs BKQiB7EhoPAlFVzdL952OItv MqG4TWZjsySrO2LuPCJelXmm OiB0 u5J9Rj3Zi9KdexcpW4JhhNHq ZgMdHpflNRr9F1FqZzlcgMP+ DN32EGAzRM18FMg1PLE1uHql PSdi CCDoJ2LuyW9gUxGqKQBkTBNu Oyc+PHRhYmxlIHdpZHRoPScx MIInWwWqnZqmSJ4mVt1yNWZh LWNv fEhyfENvSqWgk3xzSWWyVJgm BV8ewKqrV3PelCO3IJSjg1v7 Pa00K32zA6IrhKR+PGNvbCB3 aWR0 sI9uZhEePbC2NWtoI427ZhPs rSQcFqebc4cwt1kafIe8NlI9 TVLeajTewPjlQAM7o0JuZw79 Y29s IHdpZHRoPSIxNSUiIHZhbGln dg1htK8tGu1+RWKkbET9yUW7 yC8mEdUgHlL7TXkaU642WbSy cCIv Sxicb1ktx2nkaAs9RjArFYNf opIpkYxdTBI9d9KdHg40U7Lc aRhsd2DxOpj4pw04xYLpr9T5 bGU9 U5NmLOGetivtwMZxeWlzYY5d XBBlyzorKXJjkD0zOJGbD8e1 FzIgMdH5NRwhN2RdxdY0EIVy bGQg WEJolZTIuG8hrzmfp3vhauyh TjIlTNGxVZy2SXt4VSVsuPvd SwNfOFH6YnF9DBF6kMCvpY6r bGln fkijbL3lIgw+JKZ7iCTudVNV EI9hHrdtkUB+IKTbRPU0uVsc ELnyINQglJ1iLWNiK4l2PfRh LjA1 EQwqT7YyvhX5WHRzhGFgTMNb kBSXxX2zcpzar9bixqzoEoYx DFFyUNh2RDt4XRPqeTysVoLn ZWZ0 OeM9ZUD8kOAzoW7xrTjlzlda kN7mJia+EluemSvkWHF6PHe0 N9ThPfv2IZVgsGumVD1zrJKe ZGlu Ru5vwPeffQhcHN3lSRXhfxbh v770LlNqa7bnBAMsiXLzFJks ZQN1H07ds5I1KYEjGPKbAOT1 dGV4 fU9ncQbpmwfbvURjwBqudqXi tTffCKydAWnoD055MEImqFrb LeUtCOx6R7KmQdv4RGGxuZot ZT0n oBBaKZkiYi3pfBpztFwpKE2h QGAxdsiug443MdNxw4drYTOk rGRiSToeQLF0I01wx7B2TBDx MDAw SYQ4pBJ1cX5laCrbhpefoHIy kBarrjZfsXkwZFniEUllY726 ESBtuUdfCdIkiMq0T9NuQho5 ZCBz lDsaIN3diGWiNMsuXj2hqQlv iGglKY0rUQTcaacui577KkTx j3yrBDHyyANtUHvjOEM6Z69g b3I6 SYFxOIWvXDM3jIV2iL8iuGog bjogbGVmdDsgdmVydGljYWwt DRjrS467BNAnuBmdQhVpbZyi bnQg BIgqKYi5Y3LgCuugsLA+PC90 ZCUmMN18vABwjDKth2bnfWw1 UiShWFJwQEB4uOttTRxey3He ZXIt L84zwLJzk0A2IWQiiSmwtGSu BrVkkFO1hQ6cRHbwvwwvv0bp nyckKtylt2bjho89cF64F06o IHdp POCtEGNpFAUdHNMmnLvwtc3m gG4iGb4+XXMfvJO4oWQ8cF4h XIQgXyT3SQstV531VgJvsWHw Pjxj n5zcg4sttPv7AvW3DHFwpaIp fQlySFW2t5CiWh26A03cYRcz EGTiSPOqBEIrXEPmnGurfa7m dG9w Ii8+OLWitGB2sNE3gI9lWgKg PxN3QCaoI848DnUerKOnPhtc M50vT7PabAR+HQAfVan5VQJk dHls MO7vxQIqNYajUs2eJRD6AkUd BmRmAPhjT1HxYKCyhoedamyf iUH2ZVOnMANkaI82Ob6zkHec MTBw lNUAcJ7qsrkke1quczclLgNt KYVlCAk6AWj5DHVsdUqsWeIf DGW4EqM7AAH8rPGojQ4myFoy bjog uO6uE1UyQLNsvvspGa61sL1q IePrXvM5SAloTdw+QkFVRVIs IEdBVkVOIEFORFJFVzwvdGQ+ PHRk GSQ8sWtfFKvnIEGbcW0iITFx M5e3KkSiZnI3ZElmV9JyNFCl ysrtQs42rN7hLwFdItT8ZWav O2Zv dcF3IZOqsCVoDKdwMVJ5J71c s0F2TLVcSNGrROM4lSU8sB9v bGlnbjogbGVmdDsgdmVydGlj YWwt YOcbM558IXLosTfwQjAvBbRh EdAeCAG0A3KsDhw4GSMkkSuh BC3tbKOrEUjvMu2nlTfmlCcu MC4w SVZtvvxdKWYwzV9yBUOqwQVf tGifSB2tJIBofcnqs619PkYx YEY8BBJrhRHpX0HzdF5nFnPw MDAw VZJpF7QbdOPqGOjyI299JOrs LwJ0DUVjbpTyJ1NmRWCjzVqr ZiC9r4R7Zk9uUCXZOMAonzjp dGQ+ UQVeUBG5sRgoUUzmFVBchV1x RSFjR5k5BdPxHfL8OYyhU1Rf ORSzzqbgJn52kK2jYmZnSfQ5 MGlu U6TgtjP8EXXfvNTnADgcLHT0 C31hy2Q3AGOmHZQeLSR6nUW2 hU6uoBhjrwafdXEthNoznuJb dGlj SMegDOypC584YCAaxKkyCs6J YUK7A2KzQlc7YFKaeXeaIS6g cWKsXRjrOd5ioJiszFdyFW3k NTBp eixtESGouM7gJFAgmVRyvTec HR7oHZOymntbn017AfLwODK9 DAQajXDgI6BtzW0wTeCjYXCx MDAw A9PoaFZmHGzjX642WTirSxH6 BKPccmEcF9VjWBRirHqzYgM8 z7J2Ea6ELSwfsIB+MU40cf07 L3Rh KcwuCmk9FXRtYBI4qLX0gA1f RTXbHBwed8E3qMV4Q0DigtBv jj3da2naIXLvCYbsO40dxTIx c2U7 UEBelMS2VYRayUdwFbWanC37 Oyc+WCSjjZlls4JwIdqnl5oz y8jmrBh2OvTgPGBgplGzsKsm PSJ0 q2TgIz07C01yFEcdWPCwPNFa FZPkJXAetBfrvt6twW0xBf3+ HJIquER4oBQ5qP9oCdGrWlU1 YWxp E591IwDcxIRlBoyiu9igh4fv yTk4IvCnXXMrsqRejBalCVB4 e6CjIp23I3ObkUsmf4OkAzg8 cj48 lMYjb3W0sEP1S1JgNRDaocpd bOLfjQddJA9tHWLsiwbxMMQp vH3bAHFeN6v3SqNhBaD8YJge O2Zv wtW7LZDtpXIsJHOxxIJLhU3b vdrnz2fvoeddJkHgUJYfFDk6 YCn4WDCunPukDxXsDDO1OkI9 ZXJ0 uBVleB0fhLnqntkimP9vVzx+ CYd3b2sxlCTyQL9hmZQ2JW50 IX32eZPcy1Y2sOK1Q8HkQTEd bmct jsnhoVC9VCRxYGWktP44Wj3h sKkkMh0pVSQaFSV7DZVhnRZc V0IigV8nFtFdHTQxXPLgH5Xo eHQt DWzbR746USfbZiD5SPUzeiIt M2BoZGDdtYbjCbO9y0L3Fm0Z FK40HU83QK55xBCln9P5bFH2 J3Bh NCBkxswaquyryNK3FANrGTCm sH67Rt5ofJaaKh0fTBZeVKT2 NWBikTGeB7XloS2lGcRaFYYl MDAw C1FrsDRcUTurJ848VRmpIvP7 SZCxcpXfO3UmXWYxgSlhBfR7 c5B7Qu2NVq17CI54GF39iMZq c3R5 zKJ4M5FyPTAwfjztpwkyeLF5 NGFaKPFjeY24Ki4bcOupRp1p PJYlIAN7GQUlaLKvY7FyvS8b OiAj EEIvSMNbY5OngPHtEEccT083 GElpXlH5EDUaskAiR3ShGMPq cJjrZbL6u1H1Fx2KJYeehco2 L3Rk PjwvdHI+MO24JZGxBV57cOOm aTTio9jprQr2ApWfKGAaBLN2 oOkwGCwms4ElYELqV58jwCGb c2U6 IGN (more content not included)... [facility] Outside Recordson 01-15-2023 Outside Records [id number] FF [facility] Reminder Messageson 01-15-20 23 Reminder Messages - From: BALJIT PISANO DO To: [facility] Clinical Pool ([facility]); Sent: 01/13/2023 07:37:35 EDT ! Show up: [...] - 26.0) Notified patient of results Normal [facility] Reminder Messages - From: BALJIT PISANO DO To: [facility] Clinical Pool ([facility]); Sent: 01/13/2023 07:34:28 EDT ! Show up: 01/13/2023 07:34:28 EDT Subject: Results Follow Up Actions: Call the patient with result(s) Due Date/Time: 01/14/2023 07:34:00 EDT Reminder Comments: swollen fatty liver consistenat with hepatitis Results: Date Result Type Result Name 01/09/2023 16:08 Radiology US Gallbladder Notified patient of results Normal [facility] Liver Enzymeson 01-09-2023 Alk Phos 57 IU/L Normal 32-91 [facility] Comment on above: Performed By: #### 1 [id number] ####[facility] (DEFAULT)[address] [place] [address] [id number] ALT [Catalytic activity/Vol] 54.0 U/L High 8.0-36.0 [facility] Comment on above: Performed By: #### 1 [id number] ####[facility] (DEFAULT)[address] [place] [address] [id number] AST [Catalytic activity/Vol] 35 U/L Normal 13-38 [facility] Comment on above: Performed By: #### 1 [id number] ####[facility] (DEFAULT)[address] [place] [address] 48036 Gamma glutamyl transferase [Catalytic activity/Vol] 30.0 U/L High 7.0-26.0 [facility] Comment on above: Performed By: #### 1 [id number] ####[facility] (DEFAULT)[address] [place] [address] [id number] US Gallbladderon 01-09-2023 US Gallbladder Clinical History: [...] Rafita Farris MD 01/09/23 4:08 pm Technologist: [facility] Coding Summaryon 01-07-2023 Coding Summary HTMLBase 64 TfrnhvzjMOk6gVn+PGhlYWQ+ XS6ANFEgE66ykAAxmM7mR9JJ TElOSywgQVBQTElOSyIgbmFt YO5huVUbPONu IC8+ND5rCBMrInmrdZIqp3J7 xZA6Y84jil0kIHyktUL0XHTd GrDipkwrc5zegNn1AGvdWbha OyBt YZXwmR07CMS7rS85Tr00lLWo gPPmz6dokDt0JlIkXTQbLFW3 iRskANldz7AoWHMtV98bpBDa c2U6 ECVncXeaxYMnOtQfkWI1zV6s POvjqjxha7rpkfxmRls9tc73 kPFrv4X8sVP5V1OhfiZ4RPUn bGQg UjhsnMGWbT4dxmchh5kcdvbv MmXoAWYuYFr8YRt6KPVvuYxe NsXtOK92UQA1HVJfvwVbE4Oj LWFs rBpqXrN6q9E8Hq3RH7NEBzsw Z5AAUWQPWEwmwXZ+NO34bp28 W8XnXkilZsj6CJEvTZT7vFN9 aD0n QDUwNVacz4Q9tBI6N0VajeEz kz1sn3guVLKbGNsvW30biMYz h0G1KRMenQA1FRAhdEnjLpJe aG93 Oyc+SPYghZuoe0JwCxgqz8fe d0vhzXg3RxpwTUHssiUltUex KMJ8w4ReFl2hCPOtuRA3eUO2 aD0i MaXbHzO9DCidX010CtNjiBZs PvywI12sK7SamVO+PHRyPjx0 HVYxxTalLG9fG9LqZJVjzbpb bGVm tMmxAA1fUDOarmoaQQCcmH8q NXRuD1v1EyUwLuA6TIpvH0Fc MSXxivvbEn45sI4fXwQoNuZ3 MGlu H3FugiH0YSImrKOmMAllVHP1 L42lr2C8GLGjPCVuLKR2fMH1 jX5eyJuqkcutaQJcrUbybtSf dGlj FTtlXNdwC329XQMuoXrgQmUs ZGluZyBEYXRlOiAgMDgvMzAv MjAyMzwvdGQ+SNRkODZ9oEbk PSAn nXIzEYelIt8ddEurfGwpNL0s GBPghwltIXWsrE9wPEVnxCFr gTulNU3tXEQmznixy051YmWv MHB0 HPXbkKIbI8VcgH3lUgAbITFx ITEsJ0AdqTGqFLtdF125JSkd NuG5FISbaoJoR1BiPNEevLyi OiB0 a6E4Kf4Py6AsusabM4HiwJNy PvZoMrugCPz6R0JgEcohqKB+ BC55UJKpUA02WEo3TBZ2bQti PSdi XQPjF8SzbE5gHuDsPDQvNJTs Oyc+PHRhYmxlIHdpZHRoPScx UDZiDrLepKerHU6vYf3bXBAl LWNv fJdpmCZoBfQwu5mwQVVeVSsi QF4qwAllM7FnvDQ5CWDvz5w7 Oz69Y77cJ4HmhTM+PGNvbCB3 aWR0 tD2vZoPqPpK7PHpkA992DpTa uRGqLykuc0lsi1euxXt8LaV9 PXWpioTtcOrpDXW2t3JwBk38 Y29s IHdpZHRoPSIxNSUiIHZhbGln qz8dgH4qJc3+YALvwAT2lTC3 jN0nVpQaQhA9RPcdT415OrYd cCIv Ucxul4opn5dawLi6ZyJuRJZf vcSnbXeyIFR9h4AxYh92P0He xJnle8BjLxr3rv58rFCiz9L5 bGU9 I0OiSEVxvwukpQFvkHxsCM0p FWNcmiqcXSEimN6cUHDtW1e0 UzTdTnZ9UEfmK2YrafG6RTMh bGQg KPApjNKPyW4yrfpnj0kwctsu XhZnEMLcQHr0NVl5LDXrtItn MkRgKKZ6ClF9CAA8hNAhwX1j bGln afwyiB6uNzz+RSG8lGJtcEIJ DY3uIdpfkPZ+OWBqMPF0gTsc TKswQFOmjW9iPTPhB1n9JgFa LjA1 YLohH6CvozI3EHLqbKTnOFUs qAEEwR6nanqjy4jhytgxKvRg EBIlUKv3BCy9FXYpgNyoPgXm ZWZ0 GrX4GCQ5yQModK5hyNzaxzff xN4dGtg+HouljUblSBI8EQx2 J7WjGfi7ARCmxJriKA6eqLVi ZGlu Bq9yqCrhxAlbMG8sEFYjhyvx k293OmTxb1xnFCYbjSWzSCkh XZE8X71gi8Z1OJWhPPBjANI2 dGV4 bS4jrVrzcxjrrLLamQxafpVx oShwPUfhKZimZ644EQSwiUbp ChHbAIp2R1TxBsm0NRLdkCmc ZT0n lONvSMjdPx2ifCtjmLxxIM5y PCCbeffjq446OqVuu4xuVKUp nAQnUOniIHK9E52hw0P3ZTUa MDAw OEJ1mAM6qR5eaBaemshbyTLz vGwmmcXjtUasCAdbCFbcL940 MEWfwPjwJzIvuFi2J2ReEci6 ZCBz hKbdKP6ryRXnFRraIt5hiDwp oIniOR4sZANykemth735HnAq s9mxWMMezQBzSNbkEPK9T42h b3I6 JSNnKDKyNNT9aRI4bC6zmNtg bjogbGVmdDsgdmVydGljYWwt XIgyL803GYStuDucJiDpkIaa bnQg YAbsZSh3Z5MkXipquDE+PC90 HIRcLU74uVAeaYZpd1djgNo1 IxGrUGJvWTV8bPfmVWput3Tq ZXIt X60geLDae7Z2NHClvYujiUJk VsYtvCW2lV4aFQwbnycnm0vi avjnSnqiz4jsix07nB52W71z IHdp ACWfWLNaIFMrAYAipDdyko6o vM9vRx4+XNBgcDF2fWB4dC8s UMAjMdD4DZizF482FeRvtVGo Pjxj e5lfe9uaeBk3PcJ5MEFztiQa pEytMUK3e5UqHb99S50kYMft BFMlQXSpPHNyCSSvsCsryr5v dG9w Ii8+LSMcxPI2tJG1xE7iClLi VvM2FRbsY751DxKbwIOuIwsb U63mU1PkjOC+IKOuBkf6KARu dHls LD5euDGuILcyLx2wGTP3FrFr DrYtMTpcL1SnGAQvduemiaek eEC4RAXqNHSfhL59Hs0zeGnd MTBw hLIDhL5qbgchx9ndwhulKfOk HZXwXMv2SIt3QLWcxSvoXuFd QNE1UbM9KIE9vFDvgM0rfRhu bjog uW8aL5AwHRYltlgpMc31oG8m JbAjCkT8NHdoAdx+QkFVRVIs IEdBVkVOIEFORFJFVzwvdGQ+ PHRk TSM9aUgaTZvbMAYkoR4yWNXk X0p5KkMqWzK5YBapL8UsBLMx yiowGl30pF3iIxOkQtV3ETxd O2Zv dzA6UJKwfFKaDPpePOG8P05b b3Q9XVUvOPGcFLP5lHU2mP5i bGlnbjogbGVmdDsgdmVydGlj YWwt RIhaQ314FESarFzyNtWqLzCq ZyErTHV6V6QxMja7NBUwvMbi ZQ6alGCfXDsoPc2cjQrutSfh MC4w JUXjcljaGDCvcI1jPRJyjQKf qAuuBB5fULFpfrbxw756LwRb SIA6ACWykZUqO6EqvE6bMlHa MDAw TRWoN7ZosAEeOQctE705TCtu LwN0ACXpzeIcO8HaSJFqvXtc PyJ8h2C8Yy3eFRNIPODqlidq dGQ+ IGPtIAO4aGrdWMegJBXszO6w OFNnF2o3KaClBsZ1YYruF9Vh OAFwsozuIv33vY0mClFaAeZ8 MGlu X8HtrnU9ZPQhbVZcJShoAQX7 M64cc8E1ATEiTWXwJIV0cTV1 fJ1paNhjenprfKKjjXmbblHn dGlj RRneBKkdT358IOUzuOgxYi1F VBZ5N9AtCrp4REFunWyxYQ3t pZOzCKxwLq5fqSnnfQkqTG3m NTBp qwuhBNDtcV5xELDhmDNxoVzj SX4jMJHqyhaox360ScScWAH6 TDWfiRWmT7RtcQ3rPbHmFDPa MDAw J5EafZEwKXwuR439XIhoDnH3 OCNahvYmT4JnLQJklNyvNfK7 d3Q6Po7GFVyfcWC+IG25gc97 L3Rh AcfzEay0CKAwKHG5bNT5fU0o LGTmRGipb6R3vLT2I8EnqfYm ri9ic9ecQJLwQVtgZ75wuQCz c2U7 GQUzvFT4EIZgfQeoEaWhyJ24 Oyc+TZZdlYmum4CnEhhfm6oj y6tfrRc9GbPpKWCswlNnnInd PSJ0 e8WqKk16Y04kTLmgYLCuIWQw JNVpMMAqeAwzvy0yiF3tJr9+ IYCevPO3wRV6uI0jBpXmVlY7 YWxp J814QeBwyAZsYxccz9itn5dl aCu8UhJwRBDzhaMhcLnuZTW8 r6LtPj62Q0EzdPyfb3LoUgt7 cj48 kKSir8H9lYG4F3PySHXnatpv eVKvhOofDL2zUIBxlnjpVTVx pA5hXDCyS2m3PuUrCqD8EGmf O2Zv leJ9NSMcbHPzBAUkaWXJxS0i xopjs9urcgnlEwChLYEnUNt2 XFg0FQOjaAadAdIrXAQ7SpI0 ZXJ0 kUHikV3oiBgjrzoneK9cGqo+ ZVx1y7pxiAPgVC0elDG3LP74 CV62pSXqj0R3iYB8C9LyNREy bmct mqtyjSS3QQZzZOKoiL25Wk3g wFqxRk2mFPIjIRZ4UBRxbIWv G3CbmO3tGwPdUTMhEWOvG3Xi eHQt ADciR655HXjeTwQ6AARwrdRj A7PdITJgbKkbLbR4d8J2Zr5Y LZ28PA96YI15gFXgm7I7lID7 J3Bh BHJwtlsxjwcgzKQ4DJWpHFHq yG83Sd2urMrwNt5oPEAuMFB2 TOFhlYHkT9EilA6cMhNaQLKn MDAw L8BkwZSgFYloY606XRvcLvX9 OFWhceBvP9XpPZXcjRfaZvQ2 n9O9Yo0RJu46UR52AC85hBKk c3R5 sAC9Z0OdPCPvthtldutklAT8 TZJzWJDmhZ04Gl3ifLveKq3t QTYqTCF3IHRqdDWoX1YhtR0s OiAj VVUcXHYyL9EyjXFtSJpwP781 EFoeCeP2RKTzedNuW0CfPBRe tPkyGjM2l2M0Ft1XMNijhmq1 L3Rk PjwvdHI+WS08KHQvFG22eGTb zOLip5qhsSf7TpBuTJXlRCB6 xOhfMSeot5LhPLHqH54peDVa c2U6 IGN (more content not included)... Normal [facility] Reminder Messageson 01-03-20 Reminder Messages - From: BALJIT PISANO DO To: [facility] Clinical Pool ([facility]); Sent: 01/01/2023 10:45:19 EDT ! Show up: [...] patient of results, patient verbalized understanding. Normal [facility] HBsAg Screen LCon 01-01-2023 HBsAg Screen LC Negative Invalid Interpretation Code Negative [facility] Comment on above: Result Comment: Perf ormed At: [facility] [address] [place], [place] [id number] Chai Apple PhD Ph:[phone] Performed By: #### 3 [id number], [id number], [id number], [id number], [id number], [id number] ####[facility] (DEFAULT)[address] [place] [address]3376 HCV Antibody LCon 01-01-2023 Hep C Virus Ab LC Non-Reactive Invalid Interpretation Code Non Reactive [facility] Comment on above: Result Comment: HCV antibody alone does not differentiate between previously resolved infection and active infection. Equivocal and Reactive HCV antibody results should be followed up with an HCV RNA test to support the diagnosis of active HCV infection. Performed At: [facility] [address] [place], [place] [id number] Chai Apple PhD Ph:[phone] Performed By: #### 3 [id number], [id number], 1094890, 39803016, [id number], [id number] ####[facility] (DEFAULT)[address] [place] [address]3262 Hep A Ab, Total LCon 023 Hep A Ab, Total LC Positive Abnormal Negative [facility] Comment on above: Result Comment: Perf ormed At: [place] [id number] [place], [place] [id number] Chai Apple PhD Ph:[phone] Performed By: #### 3 [id number], [id number], 5361867, 28634473, 33350234, [id number] ####[facility] (DEFAULT)[address] [place] [address] 56594 Outside Recordson 01-01-2023 Outside Records [id number]#1.00OTG TIFF Normal [facility] Patient Handouton 01-01-2023 Patient Handout [id number]#1.00OTG TIFF Normal [facility] .Auto Diff 112-31-2022 Auto Maui % 8 % Normal 1-12 [facility] Comment on above: Performed By: #### 3 [id number], [id number], 7744558, 29701067, 10828293, [id number] ####[facility] (DEFAULT)[address] [place] [address] Baso Abs# 0.0 x10 Normal 0.0-0.2 [facility] Comment on above: Performed By: #### 3 5955083, 13172921, 2921858, 40811252, 60978433, [id number] ####[facility] (DEFAULT)[address] [place] [address] Basophils/100 WBC (Bld) 0.6 % Normal 0.2-2.0 [facility] Comment on above: Performed By: #### 3 0483495, 20649271, 2193837, 82154732, 41443602, [id number] ####[facility] (DEFAULT)[address] [place] [address] Eos Abs# 0.1 x10 Normal 0.0-0.4 [facility] Comment on above: Performed By: #### 3 2443399, 12709345, 7397980, 09040056, 43126273, [id number] ####[facility] (DEFAULT)[address] [place] [address] 95461 Eosinophils/100 WBC (Bld) 1.9 % Normal 0.9-4.0 [facility] Comment on above: Performed By: #### 3 7231003, 00491530, 3660295, 39276196, 34071074, [id number] ####[facility] (DEFAULT)[address] [place] [address] 42792 Lymph Abs# 1.8 x10 Normal 1.3-2.9 [facility] Comment on above: Performed By: #### 3 9674886, 31894375, 2189946, 67064118, 70196676, [id number] ####[facility] (DEFAULT)[address] [place] [address] 21530 Lymphocytes/100 WBC (Bld) 27 % Normal 14-48 [facility] Comment on above: Performed By: #### 3 4466253, 09800909, 1622059, 34080476, 56304422, [id number] ####[facility] (DEFAULT)[address] [place] [address] Maui Abs# 0.5 x10 Normal 0.0-0.8 [facility] Comment on above: Performed By: #### 3 6613696, 39459043, 8424640, 55802561, 72533419, [id number] ####[facility] (DEFAULT)[address] [place] [address] Neut Abs# 4.3 x10 Normal 1.5-9.2 [facility] Comment on above: Performed By: #### 3 8827410, 01109246, 6049977, 02939275, 48260157, [id number] ####[facility] (DEFAULT)[address] [place] [address] Neutrophils/100 WBC (Bld) 63 % Normal 44-88 [facility] Comment on above: Performed By: #### 3 7161498, 82960557, 7801698, 12537583, 17273080, [id number] ####[facility] (DEFAULT)[address] [place] [address] CBC w/ Auto Diffon 3 Erythrocyte distribution width (RBC) [Ratio] 13.0 % Normal 11.5-15.0 [facility] Comment on above: Performed By: #### 3 9875214, 69141241, 9240387, 66951181, 25033069, [id number] ####[facility] (DEFAULT)[address] [place] [address] Hematocrit (Bld) [Volume fraction] 43.9 % Normal 34.8-51.9 [facility] Comment on above: Performed By: #### 3 0995552, 82504601, 3990609, 45496131, 42599371, 8480389552 ####[facility] (DEFAULT)[address] [place] [address] Hemoglobin (Bld) [Mass/Vol] 15.4 g/dL Normal 11.8-17.7 [facility] Comment on above: Performed By: #### 3 3288293, 82072329, 8029972, 29222400, 96505643, 4804306754 ####[facility] (DEFAULT)[address] [place] [address] Man Diff? Auto Invalid Interpretation Code [facility] Comment on above: Performed By: #### 3 2611609, 34743513, 8865127, 97452421, 10401233, [id number] ####[facility] (DEFAULT)[address] [place] [address] MCH (RBC) [Entitic mass] 30 pg Normal 24-34 [facility] Comment on above: Performed By: #### 3 3053986, 56778210, 6656090, 75649396, 74550921, 5875073858 ####[facility] (DEFAULT)[address] [place] [address] MCHC (RBC) [Mass/Vol] 35 g/dL Normal 26-37 [facility] Comment on above: Performed By: #### 3 4515108, 67007895, 6846830, 35091012, 02367751, 1157906228 ####[facility] (DEFAULT)[address] [place] [address] MCV (RBC) [Entitic vol] 86 fL Normal 81-100 [facility] Comment on above: Performed By: #### 3 2797541, 23582185, 1139854, 51989403, 74762459, 2310984758 ####[facility] (DEFAULT)[address] [place] [address] Platelet 252 x10 Normal 138-427 [facility] Comment on above: Performed By: #### 3 4958238, 27986088, 2917356, 78183893, 86501917, [id number] ####[facility] (DEFAULT)[address] [place] [address] Platelet mean volume (Bld) [Entitic vol] 8.5 fL Normal 6.3-10.2 [facility] Comment on above: Performed By: #### 3 6871150, 29476493, 1169968, 73550478, 81624408, [id number] ####[facility] (DEFAULT)[address] [place] [address] RBC 5.08 x10 Normal 3.70-5.30 [facility] Comment on above: Performed By: #### 3 6260974, 99732768, 0754951, 61365833, 18944884, 7407103491 ####[facility] (DEFAULT)[address] [place] [address] WBC 6.8 x10 Normal 3.5-10.5 [facility] Comment on above: Performed By: #### 3 8927818, 40959150, 6028735, 32399536, 27073675, [id number] ####[facility] (DEFAULT)[address] [place] [address] 92197 Liver Enzymeson 12-31-2022 Alk Phos 62 IU/L Normal 32-91 [facility] Comment on above: Performed By: #### 3 3884126, 17158079, 1175179, 33014427, 64017161, [id number] ####[facility] (DEFAULT)[address] [place] [address] 50280 ALT [Catalytic activity/Vol] 60.0 U/L High 8.0-36.0 [facility] Comment on above: Performed By: #### 3 4178117, 80158764, 0816283, 78828389, 22523507, 8636127738 ####[facility] (DEFAULT)[address] [place] [address] 15678 AST [Catalytic activity/Vol] 41 U/L High 13-38 [facility] Comment on above: Performed By: #### 3 7776677, 86586713, 9374955, 36162710, 37620629, 1342888177 ####[facility] (DEFAULT)[address] [place] [address] Gamma glutamyl transferase [Catalytic activity/Vol] 26.0 U/L Normal 7.0-26.0 [facility] Comment on above: Performed By: #### 3 8048279, 27099591, 9983516, 21414852, 84985998, [id number] ####[facility] (DEFAULT)[address] [place] [address] Patient Handouton 12-30-2022 Patient Handout [id number]#[id number] TGTIFF Normal [facility] [employer]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 Radha Owens SJOGRENS ANTIBODIES (Anti SS A/B)on 09-22-2022 Sjogren's Anti-SS-A <0.2 Normal 0.0-0.9 [facility] Comment on above: Performed By: #### S AASSAB #### [facility] [address] [place] [address] Dr. Radha Owens Sjogren's Anti-SS-B <0.2 Normal 0.0-0.9 [facility] Comment on above: Performed By: #### S AASSAB #### [facility] [address] [place] [address] Dr. Radha Owens SLE PROFILE Bon 09-22-2022 TENA Direct Negative Normal Negative [facility] Comment on above: Performed By: #### S LEPB #### [facility] [address] [place] [address] Dr. Radha Owens Anti-DNA (DS) Ab Qn 2 IU/mL Normal 0-9 [facility] Comment on above: Result Comment: Nega tive <5 Equivocal 5 - 9 Positive >9 Performed By: #### S LEPB #### [facility] [address] [place] [address] Dr. Radha Owens Antichromatin Antibodies <0.2 Normal 0.0-0.9 [facility] Comment on above: Performed By: #### S LEPB #### [facility] [address] [place] [address] [address] Radha Owens Complement C3, Serum 161 mg/dL Normal 82-167 [facility] Comment on above: Performed By: #### S LEPB #### [facility] [address] [place] [address] [address] Radha Owens Complement C4, Serum 23 mg/dL Normal 12-38 [facility] Comment on above: Performed By: #### S LEPB #### [facility] [address] [place] [address] Dr. Radha Owens NEWBERRY ANTIBODIESon 3 Newberry Antibodies <0.2 Normal 0.0-0.9 [facility] Comment on above: Performed By: #### S MITHAB #### [facility] [address] [place] [address] Dr. Radha Owens RHEUMATOID FACTORon 09-21-19 23 RA Latex Turbid. <10.0 Normal <14.0 [facility] Comment on above: Performed By: #### R F ####[facility] [address] [place] [address]Dr. Radha Owens TENA by IFAon 09-18-2022 Antinuclear Antibodies, IFA Positive Abnormal [facility] Comment on above: Result Comment: Nega tive <1:80 Borderline 1:80 Positive >1:80 Performed By: #### A NAIFA #### [facility] [address] [place] [address] Dr. Radha Owens Centriole Pattern Normal [facility] Comment on above: Performed By: #### A NAIFA #### [facility] [address] [place] [address] Dr. Radha Owens Centromere Pattern Normal [facility] Comment on above: Performed By: #### A NAIFA #### [facility] [address] [place] [address] [address] Radha Owens Homogeneous Pattern 1:320 Critically high [facility] Comment on above: Result Comment: ICAP nomenclature: AC-1 Performed By: #### A NAIFA #### [facility] [address] [place], [place] [address] Dr. Radha Owens Midbody Pattern Normal [facility] Comment on above: Performed By: #### A NAIFA #### [facility] [address] [place], [place] [address] Dr. Radha Owens Note: Comment Normal [facility] Comment on above: Result Comment: For more [...] titers Nucleosomes, Histones Drug-induced SLE Speckled Sm, P[employer]ACHINE OPERATOR, SCL-70, SLE,MCTD,PSS (diffuse form), SS-A/SS-B Sjogrens Nucleolar SCL-70, PM-1/SCL High titers Scleroderma, PM/DM Centromere Centromere PSS (limited form) w/Crest syndrome variable Nuclear Dot Sp100,e86-ysraww Primary Biliary Cirrhosis Nuclear GP210, Primary Biliary Cirrhosis Membrane subhash A,B,C Performed By: #### A NAIFA #### [facility] [address] [place] [address] Dr. Radha Owens Nuclear Dot Pattern Normal [facility] Comment on above: Performed By: #### A NAIFA #### [facility] [address] [place] [address] Dr. Radha Owens Nuclear Membrane Pattern Normal [facility] Comment on above: Performed By: #### A NAIFA #### [facility] [address] [place] [address] Dr. Radha Owens Nucleolar Pattern Normal [facility] Comment on above: Performed By: #### A NAIFA #### [facility] [address] [place] [address] Dr. Radha Owens PCNA Pattern Normal [facility] Comment on above: Performed By: #### A NAIFA #### [facility] [address] [place] [address] Dr. Radha Owens Speckled Pattern Normal [facility] [place] Comment on above: Performed By: #### A NAIFA #### [facility] [address] [place] [address] [address] Radha Owens Spindle Apparatus Pattern Normal [facility] Comment on above: Performed By: #### A NAIFA #### [facility] [address] [place] [address] [address] Radha Owens RHEUMATOID FACTORon 09-17-19 RA Latex Turbid. <10.0 Normal <14.0 [facility] Comment on above: Performed By: #### R F ####[facility] [address] [place], [place] [address]YyDr. Radha Owens CBC AUTO DIFFon 09-15-2022 BASO # 0.0 103/ul Normal 0.0-0.1 [facility] Comment on above: Performed By: #### C BC #### [facility] [address] [place] [address] Dr. Radha Owens Basophils/100 WBC (Bld) 0.6 % Normal 0.2-2.0 [facility] Comment on above: Performed By: #### C BC #### [facility] [address] [place] [address] [address] Radha Owens EO # 0.1 103/ul Normal 0.0-0.7 [facility] Comment on above: Performed By: #### C BC #### [facility] [address] [place] [address] [address] Radha Owens Eosinophils/100 WBC (Bld) 1.8 % Normal 0.9-7.0 [facility] Comment on above: Performed By: #### C BC #### [facility] [address] [place] [address] Dr. Radha Owens Erythrocyte distribution width (RBC) [Ratio] 12.3 % Normal 11.0-15.0 [facility] Comment on above: Performed By: #### C BC #### [facility] [address] [place] [address] Dr. Radha Owens Hematocrit (Bld) [Volume fraction] 42.2 % Normal 42.0-54.0 [facility] Comment on above: Performed By: #### C BC #### [facility] [address] [place] [address] Dr. Radha Owens Hemoglobin (Bld) [Mass/Vol] 14.3 g/dL Normal 14.0-18.0 [facility] Comment on above: Performed By: #### C BC #### [facility] [address] [place] [address] Dr. Radha Owens IG # 0.02 10e3/ul Normal 0.00-0.03 [facility] Comment on above: Performed By: #### C BC #### [facility] [address] [place] [address] Dr. Radha Owens IG % 0.3 % Normal 0.0-0.5 [facility] Comment on above: Performed By: #### C BC #### [facility] [address] [place] [address] Dr. Radha Owens LYMPH # 1.8 103/ul Normal 1.2-3.8 [facility] Comment on above: Performed By: #### C BC #### [facility] [address] [place] [address] Dr. Radha Owens Lymphocytes/100 WBC (Bld) 27.8 % Normal 20.5-60.0 [facility] Comment on above: Performed By: #### C BC #### [facility] [address] [place] [address] Dr. Radha Owens MANUAL DIFF REQ NO Normal [facility] Comment on above: Performed By: #### C BC #### [facility] [address] [place] [address] Dr. Radha Owens MCH (RBC) [Entitic mass] 29.8 pg Normal 25.9-34.0 [facility] Comment on above: Performed By: #### C BC #### [facility] [address] [place] [address] Dr. Radha Owens MCHC (RBC) [Mass/Vol] 33.9 g/dL Normal 29.9-35.2 [facility] Comment on above: Performed By: #### C BC #### [facility] [address] [place] [address] [address] Radha Owens MCV (RBC) [Entitic vol] 87.9 fL Normal 80.0-94.0 [facility] Comment on above: Performed By: #### C BC #### [facility] [address] [place] [address] [address] Radha Owens MONO # 0.7 103/ul Normal 0.3-0.8 [facility] Comment on above: Performed By: #### C BC #### [facility] [address] [place] [address] Dr. Radha Owens Monocytes/100 WBC (Bld) 11.3 % Normal 1.7-12.0 [facility] Comment on above: Performed By: #### C BC #### [facility] [address] [place] [address] Dr. Radha Owens NEUT # 3.8 103/ul Normal 1.4-6.5 [facility] Comment on above: Performed By: #### C BC #### [facility] [address] [place] [address] Dr. Radha Owens Neutrophils/100 WBC (Bld) 58.2 % Normal 43.0-75.0 [facility] Comment on above: Performed By: #### C BC #### [facility] [address] [place] [address] Dr. Radha Owens Platelet mean volume (Bld) [Entitic vol] 10.4 fL Normal 9.5-13.5 [facility] Comment on above: Performed By: #### C BC #### [facility] [address] [place] [address] Dr. Radha Owens PLT 235 103/ul Normal 150-450 [facility] Comment on above: Performed By: #### C BC #### [facility] [address] [place] [address] Dr. Radha Owens RBC 4.80 106/ul Normal 4.70-6.10 [facility] Comment on above: Performed By: #### C BC #### [facility] [address] [place] [address] Dr. Radha Owens WBC 6.5 103/ul Normal 4.0-11.0 [facility] Comment on above: Performed By: #### C BC #### [facility] [address] [place] [address] Dr. Radha Owens PROF 14(COMP METB)on 023 Albumin [Mass/Vol] 3.9 g/dL Normal 3.4-5.0 [facility] Comment on above: Performed By: #### C MP, URIC #### [facility] [address] [place] [address] Dr. Radha Owens Albumin/Globulin [Mass ratio] 1.0 {ratio} Normal [facility] Comment on above: Performed By: #### C MP, URIC #### [facility] [address] [place] [address] Dr. Radha Owens ALP [Catalytic activity/Vol] 73 U/L Normal 46-116 [facility] Comment on above: Performed By: #### C MP, URIC #### [facility] [address] [place] [address] Dr. Radha Owens ALT [Catalytic activity/Vol] 66 U/L Critically high 16-63 [facility] Comment on above: Performed By: #### C MP, URIC #### [facility] [address] [place] [address] Dr. Radha Owens Anion gap [Moles/Vol] 13.2 mmol/L Normal [facility] Comment on above: Performed By: #### C MP, URIC #### [facility] [address] [place] [address] Dr. Radha Owens AST [Catalytic activity/Vol] 31 U/L Normal 15-37 [facility] Comment on above: Performed By: #### C MP, URIC #### [facility] [address] [place] [address] Dr. Radha Owens Bilirubin [Mass/Vol] 0.8 mg/dL Normal 0.2-1.0 [facility] Comment on above: Performed By: #### C MP, URIC #### [facility] [address] [place] [address] Dr. Radha Owens Calcium [Mass/Vol] 9.2 mg/dL Normal 8.5-10.1 [facility] Comment on above: Performed By: #### C MP, URIC #### [facility] [address] [place] [address] Dr. Radha Owens Chloride [Moles/Vol] 107 mmol/L Normal 98-107 [facility] Comment on above: Performed By: #### C MP, URIC #### [facility] [address] [place] [address] Dr. Radha Owens CO2 [Moles/Vol] 26.0 mmol/L Normal 21.0-32.0 [facility] Comment on above: Performed By: #### C MP, URIC #### [facility] [address] [place] [address] Dr. Radha Owens Creatinine [Mass/Vol] 0.89 mg/dL Normal 0.70-1.30 [facility] Comment on above: Performed By: #### C MP, URIC #### [facility] [address] [place] [address] Dr. Radha Owens EGFR-AF CITIZEN [place] >60 Normal >=60 [facility] Comment on above: Performed By: #### C MP, URIC #### [facility] [address] [place] [address] Dr. Radha Owens EGFR-NON AF CITIZEN OF [place] >60 Normal >=60 [facility] Comment on above: Performed By: #### C MP, URIC #### [facility] [address] [place] [address] Dr. Radha Owens Globulin (S) [Mass/Vol] 4.1 g/dL Normal [facility] Comment on above: Performed By: #### C MP, URIC #### [facility] [address] [place] [address] Dr. Radha Owens Glucose [Mass/Vol] 99 mg/dL Normal 74-106 [facility] Comment on above: Performed By: #### C MP, URIC #### [facility] [address] [place] [address] Dr. Radha Owens Potassium [Moles/Vol] 4.2 mmol/L Normal 3.5-5.1 [facility] Comment on above: Performed By: #### C MP, URIC #### [facility] [address] [place] [address] Dr. Radha Owens Protein [Mass/Vol] 8.0 g/dL Normal 6.4-8.2 [facility] Comment on above: Performed By: #### C MP, URIC #### [facility] [address] [place] [address] Dr. Radha Owens Sodium [Moles/Vol] 142 mmol/L Normal 136-145 [facility] Comment on above: Performed By: #### C MP, URIC #### [facility] [address] [place] [address] Dr. Radha Owens Urea nitrogen [Mass/Vol] 13.0 mg/dL Normal 6.4-19.3 [facility] Comment on above: Performed By: #### C MP, URIC #### [facility] [address] [place] [address] Dr. Radha Owens Urea nitrogen/Creatinine [Mass ratio] 14.6 mg/mg Normal [facility] Comment on above: Performed By: #### C MP, URIC #### [facility] [address] [place] [address] Dr. Radha Owens [facility] 12 mm/hr Normal <=15 [facility] Comment on above: Performed By: #### S EDR #### [facility] [address] [place] [address] Dr. Radha Owens URIC ACID SERUMon 09-15-2022 Urate [Mass/Vol] 5.9 mg/dL Normal 3.5-7.2 [facility] Comment on above: Performed By: #### C MP, URIC #### [facility] [address] [place] [address] Dr. Radha Owens US CLIF DOP LEG RTon 07-03-19 US CLIF DOP LEG RT EXAMINATION: US [...] by: SANJAY ROJAS Date: 2022-07-03 17:14 Normal [facility] [employer] Quick Testingon 2021 Result Negative [employer] Other MRI Knee w/o Righton 021 MRI Knee w/o Right HISTORY: Fall with [...] by Rafita Farris on 05/01/2021 1125 Normal [facility] [employer] KNEE RIGHTon 04-18-2021 KNEE RIGHT EXAMINATION: [facility]/18/2021 5:05 PM EST HISTORY: Traumatic injury, pain COMPARISON: None. TECHNIQUE: Right knee x-ray: 2 view(s). FINDINGS: Bones are normal density. No fracture, no bone destruction. Small knee effusion noted. Subcutaneous edema is seen. IMPRESSION: 1. No acute traumatic osseous pathology 2. Subcutaneous edema, possible small knee effusion Normal [facility] XR ANKLE 3 VIEWS - LEFTon XR [...] Noriega MD on 12/25/2017 2:18 PM Normal [facility] Vital Signs Date Time Vital Sign Value Performing Clinician Facility 03-22-2024 11:15-0500 Diastolic blood pressure 89 mm[Hg] Leatha Diaz APRN Work Phone: [facility] 03-22-2024 11:15-0500 Heart rate 84 /min Leatha Diaz APRN Work Phone: [facility] 03-22-2024 11:15-0500 Respiratory rate 16 /min Leatha Diaz APRN Work Phone: [facility] 03-22-2024 11:15-0500 SaO2% (BldA) [Mass fraction] 99 % Leatha Diaz APRN Work Phone: [facility] 03-22-2024 11:15-0500 Systolic blood pressure 142 mm[Hg] Leatha Diaz APRN Work Phone: [facility] 03-22-2024 09:53-0500 Body height 182.88 cm Leatha Diaz APRN Work Phone: [facility] 03-22-2024 09:53-0500 Body weight 181.43 kg Leatha Diaz APRN Work Phone: [facility] 02-25-2024 15:32-0400 Body height 182.88 cm [facility] 02-25-2024 15:32-0400 Body mass index (BMI) [Ratio] 57.1 kg/m2 [facility] 02-25-2024 15:32-0400 Body temperature 97.1 [degF] [facility] 02-25-2024 15:32-0400 Body weight 190.96 kg [facility] 02-25-2024 15:32-0400 Diastolic blood pressure 86 mm[Hg] [facility] 02-25-2024 15:32-0400 Heart rate 73 /min [facility] 02-25-2024 15:32-0400 SaO2% (BldA) [Mass fraction] 97 % [facility] 02-25-2024 15:32-0400 Systolic blood pressure 132 mm[Hg] [facility] 02-09-2024 09:01-0400 Body height 182.88 cm [facility] 02-09-2024 09:01-0400 Body mass index (BMI) [Ratio] 57.4 kg/m2 [facility] 02-09-2024 09:01-0400 Body weight 192.09 kg [facility] 02-09-2024 09:01-0400 Diastolic blood pressure 81 mm[Hg] [facility] 02-09-2024 09:01-0400 Heart rate 110 /min [facility] 02-09-2024 09:01-0400 Respiratory rate 20 /min [facility] 02-09-2024 09:01-0400 SaO2% (BldA) [Mass fraction] 94 % [facility] 02-09-2024 09:01-0400 Systolic blood pressure 126 mm[Hg] [facility] 01-28-2024 10:26-0400 Body height 182.88 cm [facility] 01-28-2024 10:26-0400 Body mass index (BMI) [Ratio] 57.1 kg/m2 [facility] 01-28-2024 10:26-0400 Body temperature 97.8 [degF] [facility] 01-28-2024 [id number] Body weight 190.96 kg [facility] 01-28-2024 10:26-0400 Diastolic blood pressure 84 mm[Hg] [facility] 01-28-2024 10:26-0400 Heart rate 110 /min [facility] 01-28-2024 10:26-0400 SaO2% (BldA) [Mass fraction] 96 % [facility] 01-28-2024 10:26-0400 Systolic blood pressure 130 mm[Hg] [facility] 12-31-2023 10:31-0400 Body height 182.88 cm [facility] 12-31-2023 10:31-0400 Body mass index (BMI) [Ratio] 56.2 kg/m2 [facility] 12-31-2023 10:[id number] Body weight 188.24 kg [facility] 12-31-2023 10:31-0400 Diastolic blood pressure 80 mm[Hg] [facility] 12-31-2023 10:31-0400 Heart rate 97 /min [facility] 12-31-2023 10:31-0400 SaO2% (BldA) [Mass fraction] 98 % [facility] 12-31-2023 10:31-0400 Systolic blood pressure 116 mm[Hg] [facility] 12-09-2023 11:15-0400 Body height 182.88 cm [facility] 12-09-2023 11:15-0400 Body mass index (BMI) [Ratio] 54.8 kg/m2 [facility] 12-09-2023 11:15-0400 Body weight 183.42 kg [facility] 12-09-2023 11:15-0400 Diastolic blood pressure 92 mm[Hg] [facility] 12-09-2023 11:15-0400 Heart rate 108 /min [facility] 12-09-2023 11:15-0400 Respiratory rate 20 /min [facility] 12-09-2023 11:15-0400 SaO2% (BldA) [Mass fraction] 98 % [facility] 12-09-2023 11:15-0400 Systolic blood pressure 144 mm[Hg] [facility] 11-09-2023 08:32-0400 Body height 182.88 cm FINISHING SUPERVISORJyoti Quintanillaacher Work Phone: [facility] 11-09-2023 08:32-0400 Body mass index (BMI) [Ratio] 53.8 kg/m2 FINISHING SUPERVISORJyoti Quintanillaacher Work Phone: [facility] 11-09-2023 08:32-0400 Body weight 180.07 kg FINISHING SUPERVISORJyoti Quintanillaacher Work Phone: [facility] 11-09-2023 08:32-0400 Diastolic blood pressure 78 mm[Hg] FINISHING SUPERVISORJyoti Quintanillaacher Work Phone: [facility] 11-09-2023 08:32-0400 Heart rate 91 /min FINISHING SUPERVISORJyoti Quintanillaacher Work Phone: [facility] 11-09-2023 08:32-0400 SaO2% (BldA) [Mass fraction] 98 % FINISHING SUPERVISORJyoti Quintanillaacher Work Phone: [facility] 11-09-2023 08:32-0400 Systolic blood pressure 118 mm[Hg] REUBEN Quintanillaacher Work Phone: [facility] 10-22-2023 09:32-0400 Body height 182.88 cm FINISHING SUPERVISORJyoti Quintanillaacher Work Phone: [facility] 10-22-2023 09:32-0400 Body mass index (BMI) [Ratio] 54.5 kg/m2 FINISHING SUPERVISORJyoti Quintanillaacher Work Phone: [facility] 10-22-2023 09:32-0400 Body weight 182.37 kg FINISHING SUPERVISORJyoti Quintanillaacher Work Phone: [facility] 10-22-2023 09:32-0400 Diastolic blood pressure 71 mm[Hg] FINISHING SUPERVISOR Leatha Lucasrbacher Work Phone: [facility] 10-22-2023 09:32-0400 Heart rate 114 /min FINISHING SUPERVISORJyoti Zavalarbacher Work Phone: [facility] 10-22-2023 09:32-0400 Respiratory rate 20 /min FINISHING SUPERVISORJyoti Zavalarbacher Work Phone: [facility] 10-22-2023 09:32-0400 SaO2% (BldA) [Mass fraction] 95 % FINISHING SUPERVISOR Leatha Zavalarbacher Work Phone: [facility] 10-22-2023 09:32-0400 Systolic blood pressure 120 mm[Hg] FINISHING SUPERVISOR Leatha Zavalarbacher Work Phone: [facility] 10-12-2023 15:58-0400 Body height 182.88 cm FINISHING SUPERVISOR Leatha Quintanillaacher Work Phone: [facility] 10-12-2023 15:58-0400 Body mass index (BMI) [Ratio] 54.2 kg/m2 FINISHING SUPERVISORJyoti Quintanillaacher Work Phone: [facility] 10-12-2023 15:58-0400 Body weight 181.43 kg FINISHING SUPERVISORJyoti Zavalarbacher Work Phone: [facility] 10-12-2023 15:58-0400 Diastolic blood pressure 76 mm[Hg] FINISHING SUPERVISOR Leatha Zavalarbacher Work Phone: [facility] 10-12-2023 15:58-0400 Heart rate 112 /min FINISHING SUPERVISOR Leatha Zavalarbacher Work Phone: [facility] 10-12-2023 15:58-0400 SaO2% (BldA) [Mass fraction] 98 % FINISHING SUPERVISOR Leatha Lucasrbacher Work Phone: [facility] 10-12-2023 15:58-0400 Systolic blood pressure 118 mm[Hg] FINISHING SUPERVISORJyoti Zhang Lucasrbacher Work Phone: [facility] 09-24-2023 14:27-0400 Body height 182.88 cm FINISHING SUPERVISORJyoti Zavalarbacher Work Phone: [facility] 09-24-2023 14:27-0400 Body mass index (BMI) [Ratio] 53.4 kg/m2 FINISHING SUPERVISORJyoti Zhang Lucasrbacher Work Phone: [facility] 09-24-2023 14:27-0400 Body weight 178.71 kg FINISHING SUPERVISORJyoti Quintanillaacher Work Phone: [facility] 09-24-2023 14:27-0400 Diastolic blood pressure 78 mm[Hg] FINISHING SUPERVISOR Leatha Lucasrbacher Work Phone: [facility] 09-24-2023 14:27-0400 Heart rate 110 /min FINISHING SUPERVISORJyoti Quintanillaacher Work Phone: [facility] 09-24-2023 14:27-0400 SaO2% (BldA) [Mass fraction] 98 % FINISHING SUPERVISORJyoti Quintanillaacher Work Phone: [facility] 09-24-2023 14:27-0400 Systolic blood pressure 128 mm[Hg] FINISHING SUPERVISOR Leatha Lucasmarlenacher Work Phone: [facility] 09-10-2023 10:[id number] Body height 182.88 cm FINISHING SUPERVISOR Leatha Zavalarbacher Work Phone: [facility] 09-10-2023 10:28040 Body mass index (BMI) [Ratio] 54.3 kg/m2 FINISHING SUPERVISOR Leatha Lucasrbacher Work Phone: [facility] 09-10-2023 10:28040 Body weight 181.6 kg FINISHING SUPERVISORJyoti JamilLeatha Socorroacher Work Phone: [facility] 09-10-2023 10:28-0400 Diastolic blood pressure 87 mm[Hg] FINISHING SUPERVISOR Leatha Lucasrbacher Work Phone: [facility] 09-10-2023 10:28-0400 Heart rate 102 /min FINISHING SUPERVISOR Leatha Zavalarbacher Work Phone: [facility] 09-10-2023 10:28-0400 Respiratory rate 20 /min FINISHING SUPERVISOR Leatha Lucasrbacher Work Phone: [facility] 09-10-2023 10:28-0400 SaO2% (BldA) [Mass fraction] 97 % FINISHING SUPERVISOR Leatha Lucasmarlenacher Work Phone: [facility] 09-10-2023 10:28-0400 Systolic blood pressure 134 mm[Hg] FINISHING SUPERVISOR Leatha Lucasrbacher Work Phone: [facility] 08-27-2023 10:38-0400 Body height 182.88 cm FINISHING SUPERVISOR Leatha Lucasmarlenacher Work Phone: [facility] 08-27-2023 10:38-0400 Body mass index (BMI) [Ratio] 54.5 kg/m2 FINISHING SUPERVISOR Leatha Quintanillaacher Work Phone: [facility] 08-27-2023 10:38-0400 Body weight 182.34 kg FINISHING SUPERVISOR Leatha Lucasmarlenacher Work Phone: [facility] 08-27-2023 10:38-0400 Diastolic blood pressure 74 mm[Hg] FINISHING SUPERVISOR Leatha Lucasrbacher Work Phone: [facility] 08-27-2023 10:38-0400 Heart rate 104 /min FINISHING SUPERVISOR Leatha Lucasrbacher Work Phone: [facility] 08-27-2023 10:38-0400 SaO2% (BldA) [Mass fraction] 98 % FINISHING SUPERVISORJyoti RmLeatha Socorroacher Work Phone: [facility] 08-27-2023 10:38-0400 Systolic blood pressure 116 mm[Hg] REUBEN Zavalamarlenchito Work Phone: [facility] 08-13-2023 10:02-0400 Body height 182.88 cm DO Baljit House Work Phone: [facility] 08-13-2023 10:02-0400 Body mass index (BMI) [Ratio] 55.2 kg/m2 DO Baljit House Work Phone: [facility] 08-13-2023 10:02-0400 Body weight 184.75 kg DO Baljit House Work Phone: [facility] 08-13-2023 10:02-0400 Diastolic blood pressure 49 mm[Hg] DO Baljit Norris Work Phone: [facility] 08-13-2023 10:02-0400 Heart rate 99 /min DO Baljit Norris Work Phone: [facility] 08-13-2023 10:02-0400 Respiratory rate 20 /min DO Baljit Pisano Work Phone: [facility] 08-13-2023 10:02-0400 SaO2% (BldA) [Mass fraction] 96 % DO Baljit Norris Work Phone: [facility] 08-13-2023 10:02-0400 Systolic blood pressure 121 mm[Hg] DO Baljit House Work Phone: [facility] 07-21-2023 09:16-0400 Body height 182.9 cm Pattie Shenmarvine V, PA Work Phone: [employer] 07-21-2023 09:16-0400 Body mass index (BMI) [Ratio] 55.2 kg/m2 Pattie Shendge V, PA Work Phone: [employer] [facility] 07-21-2023 09:16-0400 Body weight 184.61 kg Pattie Shendge V, PA Work Phone: [facility] 07-21-2023 09:16-0400 Heart rate 85 /min Pattie Shendge V, PA Work Phone: [facility] 07-21-2023 09:16-0400 Respiratory rate 16 /min Pattie Shendge V, PA Work Phone: [facility] 07-07-2023 13:25-0500 Body height 185.42 cm DO Baljit House Work Phone: [facility] 07-07-2023 13:25-0500 Body mass index (BMI) [Percentile] Per age and sex 99.9 % DO Baljit House Work Phone: [facility] 07-07-2023 13:25-0500 Body mass index (BMI) [Ratio] 53.1 kg/m2 DO Baljit House Work Phone: [facility] 07-07-2023 13:25-0500 Body weight 182.79 kg DO Baljit House Work Phone: [facility] 07-07-2023 13:25-0500 Diastolic blood pressure 82 mm[Hg] DO Baljit House Work Phone: [facility] 07-07-2023 13:25-0500 Heart rate 97 /min DO Baljit House Work Phone: [facility] 07-07-2023 13:25-0500 SaO2% (BldA) [Mass fraction] 98 % DO Baljit House Work Phone: [facility] 07-07-2023 13:25-0500 Systolic blood pressure 126 mm[Hg] DO Baljit House Work Phone: [facility] 05-26-2023 14:15-0500 Body height 185.42 cm Imad Asaad Other [facility] 05-26-2023 14:15-0500 Body mass index (BMI) [Ratio] 51.45 kg/m2 Imad Asaad Other [employer] Other 05-26-2023 14:15-0500 Body weight 176.9 kg Imad Asaad Other [facility] 04-21-2023 13:45-0500 Body height 185.42 cm Imad Asaad Other [employer] Other 04-21-2023 13:45-0500 Body mass index (BMI) [Ratio] 51.84 kg/m2 Imad Asaad Other [employer] Other 04-21-2023 13:45-0500 Body weight 178.26 kg Imad Asaad Other [employer] Other 04-21-2023 13:45-0500 Diastolic blood pressure 82 mm[Hg] Imad Asaad Other [employer] Other 04-21-2023 13:45-0500 Systolic blood pressure 147 mm[Hg] Imad Asaad Other [employer] Other 03-19-2023 13:00-0500 Body height 185.42 cm Imad Asaad Other [employer] Other 03-19-2023 13:00-0500 Body mass index (BMI) [Ratio] 51.87 kg/m2 Imad Asaad Other [employer] Other 03-19-2023 13:00-0500 Body weight 178.36 kg Imad Asaad Other [employer] Other 03-19-2023 13:00-0500 Diastolic blood pressure 68 mm[Hg] Imad Asaad Other [employer] Other 03-19-2023 13:00-0500 Systolic blood pressure 76 mm[Hg] Imad Asaad Other [employer] Other 02-04-2022 10:55-0400 Body height 179.07 cm Devika King Other [employer] Other 02-04-2022 10:55-0400 Body mass index (BMI) [Ratio] 44.55 kg/m2 Devika King Other [employer] Other 02-04-2022 10:55-0400 Body temperature 97.5 [degF] Devika King Other [employer] Other 02-04-2022 10:55-0400 Body weight 142.88 kg Devika King Other [employer] Other 02-04-2022 10:55-0400 Respiratory rate 18 /min Devika King Other [employer] Other 02-04-2022 10:55-0400 SaO2% (BldA) [Mass fraction] 97 % Devika King Other [employer] Other Encounters Encounter Date Encounter Type Care Provider Facility Start: 03-22-2024 Non-patient / Non-visit Leatha Diaz APRN Work Phone: [facility] Gastroenterology Work Phone: Start: 03-22-2024 End: 03-22-2024 Admission to same day surgery center Leatha Diaz APRN Work Phone: [facility] Work Phone: Start: 03-22-2024 End: 03-22-2024 ambulatory Leatha Diaz FINISHING SUPERVISOR Work Phone: [facility] Work Phone: Start: 02-25-2024 End: 02-25-2024 ambulatory [facility] Work Phone: Start: 02-25-2024 End: 02-25-2024 Patient encounter procedure [facility] Work Phone: Start: 02-09-2024 End: 02-09-2024 ambulatory [facility] Work Phone: Start: 02-09-2024 End: 02-09-2024 Patient encounter procedure [facility] Work Phone: Start: 01-28-2024 End: 01-28-2024 ambulatory [facility] Work Phone: Start: 01-28-2024 End: 01-28-2024 Patient encounter procedure [facility] Work Phone: Start: 01-26-2024 End: 01-26-2024 ambulatory [facility] Start: 01-24-2024 End: 01-24-2024 Emergency department patient visit [facility] Start: 01-22-2024 End: 01-23-2024 Emergency department patient visit [facility] Start: 01-21-2024 End: 01-21-2024 Emergency department patient visit [facility] Start: 12-31-2023 End: 12-31-2023 ambulatory [facility] Work Phone: Start: 12-31-2023 End: 12-31-2023 Patient encounter procedure [facility] Work Phone: Start: 12-15-2023 End: 12-15-2023 ambulatory [facility] Work Phone: Start: 12-15-2023 End: 12-15-2023 Patient encounter procedure [facility] Work Phone: Start: 12-09-2023 End: 12-09-2023 ambulatory [facility] Work Phone: Start: 12-09-2023 End: 12-09-2023 Patient encounter procedure [facility] Work Phone: Start: 11-09-2023 End: 11-09-2023 ambulatory FINISHING SUPERVISORJyoti Diaz Work Phone: [facility] Work Phone: Start: 11-09-2023 End: 11-09-2023 Patient encounter procedure REUBEN Diaz Work Phone: [facility] Work Phone: Start: 10-30-2023 End: 10-31-2023 Emergency department patient visit [facility] Start: 10-22-2023 End: 10-22-2023 ambulatory FINISHING SUPERVISORJyoti Diaz Work Phone: [facility] Work Phone: Start: 10-22-2023 End: 10-22-2023 Patient encounter procedure REUBEN Stewartr Work Phone: [facility] Work Phone: Start: 10-12-2023 End: 10-12-2023 ambulatory FINISHING SUPERVISORJyoti Diaz Work Phone: [facility] Work Phone: Start: 10-12-2023 End: 10-12-2023 Patient encounter procedure REUBEN Quintanillaacher Work Phone: [facility] Work Phone: Start: 10-07-2023 End: 10-08-2023 Emergency department patient visit BALJIT [facility] Start: 09-25-2023 End: 09-25-2023 ambulatory BALJIT [facility] Start: 09-24-2023 End: 09-24-2023 Patient encounter procedure REUBEN Zhang Emily Work Phone: [facility] Work Phone: Start: 09-10-2023 End: 09-10-2023 Patient encounter procedure REUBEN Zhang Emily Work Phone: [facility] Work Phone: Start: 08-27-2023 End: 08-27-2023 ambulatory REUBEN Zhang Emily Work Phone: [facility] Work Phone: Start: 08-27-2023 End: 08-27-2023 Patient encounter procedure REUBEN Zhang Emily Work Phone: [facility] Work Phone: Start: 08-19-2023 End: 08-19-2023 ambulatory FINISHING SUPERVISORJyoti Zhang Emily Work Phone: [facility] Work Phone: Start: 08-19-2023 End: 08-19-2023 Patient encounter procedure REUBEN Zhang Emily Work Phone: [facility] Work Phone: Start: 08-13-2023 End: 08-13-2023 Patient encounter procedure DO Baljit Schertz Work Phone: [facility] [place] Work Phone: Start: 08-13-2023 End: 08-13-2023 ambulatory DO Baljit House Work Phone: [facility] Work Phone: Start: 08-13-2023 End: 08-13-2023 ambulatory DO Baljit Pisano Work Phone: [facility] Work Phone: Start: 08-13-2023 End: 08-13-2023 Patient encounter procedure DO Baljit Pisano Work Phone: [facility] Work Phone: Start: 08-07-2023 Non-patient / Non-visit DO Baljit Pisano Work Phone: [facility] Work Phone: Start: 07-21-2023 End: 07-21-2023 ambulatory PATTIE SHENDGE V [facility] Start: 07-21-2023 End: 07-21-2023 Office outpatient new 30 minutes Pattie Shendge PA Work Phone: [facility] Comment on above: Positive TENA (antinu clear antibody) (Primary Dx); Chronic fatigue; Pain in both hands; Bilateral carpal tunnel syndrome Start: 07-21-2023 End: 07-21-2023 ambulatory PATTIE SHENDGE V [facility] Start: 07-08-2023 Non-patient / Non-visit DO Baljit Pisano Work Phone: [facility] Work Phone: Start: 07-07-2023 End: 07-07-2023 Patient encounter procedure DO Baljit Pisano Work Phone: [facility] Work Phone: Start: 06-30-2023 End: 07-01-2023 Emergency department patient visit SANJAY WEBSTER [facility] Start: 05-26-2023 End: 05-26-2023 ambulatory Imad Asaad Other [facility] [employer] Other Start: 05-26-2023 Office outpatient visit 25 minutes Imad Asaad [facility] Start: 05-26-2023 End: 05-26-2023 Patient encounter procedure DO Baljit House Work Phone: [facility]- Start: 05-19-2023 End: 05-19-2023 Patient encounter procedure DO Baljit House Work Phone: [facility] [address] Work Phone: Start: 05-19-2023 End: 05-19-2023 ambulatory DO Baljit House Work Phone: [facility] Work Phone: Start: 04-29-2023 End: 04-30-2023 ambulatory BALJIT P HOUSE Facility:[facility] Start: 04-27-2023 End: 04-27-2023 ambulatory Imad Asaad Other [place] [email or web address] Other Start: 04-27-2023 Telephone encounter Imad Asaad [facility] Start: 04-21-2023 End: 04-21-2023 Patient encounter procedure DO Baljit House Work Phone: [facility] [address] [place] Work Phone: Start: 04-21-2023 End: 04-21-2023 ambulatory DO Baljit House Work Phone: [facility] Work Phone: Start: 04-21-2023 Office outpatient new 45 minutes Imad Asaad [facility] Start: 04-07-2023 End: 04-08-2023 ambulatory BALJIT P HOUSE Facility:[facility] Start: 04-01-2023 End: 04-01-2023 ambulatory DO Baljit House Work Phone: [facility] Work Phone: Start: 04-01-2023 End: 04-01-2023 Patient encounter procedure DO Baljit House Work Phone: [facility] Work Phone: Start: 03-23-2023 End: 03-23-2023 ambulatory Imad Asaad Other [employer] Other Start: 03-23-2023 Telephone encounter Imad Asaad [facility] Start: 03-19-2023 Office outpatient new 45 minutes Imad Asaad [facility] Start: 03-19-2023 End: 03-19-2023 ambulatory DO Baljit Pisano Work Phone: [employer] Other Start: 03-19-2023 End: 03-19-2023 Patient encounter procedure DO Baljit House Work Phone: [facility] [place] Work Phone: Start: 02-12-2023 End: 02-13-2023 ambulatory BALJIT PISANO Facility:[facility] Start: 01-28-2023 End: 01-29-2023 ambulatory BALJIT PISANO Facility:[facility] Start: 01-09-2023 End: 01-10-2023 ambulatory BALJIT PISANO [facility] Start: 01-07-2023 End: 01-08-2023 ambulatory [facility]O [facility] Start: 12-31-2022 End: 01-01-2023 ambulatory BALJIT PISANO Facility:[facility] Start: 12-30-2022 End: 12-31-2022 ambulatory Raf[facility]over [facility] Start: 09-19-2022 End: 09-20-[address] BALJIT PISANO Facility:[facility] Start: 09-15-2022 End: 09-16-[address] BALJIT PISANO Facility:[facility] Start: 07-03-2022 End: 07-04-[address] BALJIT PISANO Facility:[facility] Start: 02-04-2022 End: 02-04-2022 ambulatory Devika King Other [employer] Other Start: 02-04-2022 Office outpatient new 30 minutes Devika King [facility] Start: 12-25-2017 End: 12-26-2017 Patient encounter BALJIT PISANO [facility] Procedures Date Procedure Procedure Detail Performing Clinician Start: 03-22-2024 Esophagogastroduodenoscopy Leatha mcgrath APRN Work Phone: Start: 05-19-2023 Radiography of thoracic spine DO Baljit Schertz Work Phone: Start: 05-19-2023 X-ray of both knees DO Baljit Schertz Work Phone: Start: 04-01-2023 Ultrasound elastography of liver DO [facility] Work Phone: Plan of Treatment Date Care Activity Detail Author Start: 01-03-2026 DTaP,Tdap and Td Vaccines (7 - Td or Tdap) DTaP,Tdap and Td Vaccines (7 - Td or Tdap) [facility] Start: 07-20-2024 Adult BMI Screening Adult BMI Screen ing [facility] Start: 07-20-2024 Tobacco Screening Tobacco Screening [facility] Start: 03-22-2024 [facility] Start: 01-28-2024 Patient referral [facility] Work Phone: Start: 10-22-2023 End: 10-22-2023 Telemedicine consultation with patient 10/22/2023 9:30 AM EDT [facility] [address] [place] [phone] [place] [address] [place] [phone] [facility] Start: 08-13-[address] [facility] Work Phone: Start: 08-13-2023 Insulin [Units/volum e] in Serum or Plasma [facility] Start: 07-21-2023 End: 07-20-2024 [facility] Routine Pain in both hands Bilateral carpal tunnel syndrome Expected: 07/21/2023 (Approximate), Expires: 07/20/2024 [facility] Work Phone: Comment on above: Expected: 07/21/2023 (Approximate), Expires: 07/20/2024 Start: 07-21-2023 End: 07-20-2024 XR Bones Limited Survey Views 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 [facility] Start: 05-19-2023 [facility] Start: 04-01-2023 [facility] Start: 01-09-2023 Influenza vaccination Influenza Vacc ine [facility] Start: 07-11-2021 Adult BMI Follow Up Plan Adult BMI Follow Up Plan [facility] Start: 2015 Depression Screening Depression Scre ening [facility] Actin smooth muscle IgG Ab [Units/volume] in Serum [facility] Alpha 1 antitrypsin [Mass/volume] in Serum or Plasma [facility] Alpha 1 antitrypsin phenotyping [Identifier] in Serum or Plasma by Immunofixation [facility] Ceruloplasmin [Mass/volume] in Serum or Plasma [facility] CT Abdomen and Pelvi s WO and W contrast IV [facility] CT Abdomen WO and W contrast IV [facility] Fibrillarin Ab [Presence] in Serum [facility] Hemoglobin.gastroint jhon nal [Presence] in Stool [facility] Hepatitis A virus antibody, IgM type [facility] Hepatitis B core antibody measurement [facility] Hepatitis B core antibody measurement, IgM type [facility] Hepatitis B virus DN A [#/volume] (viral load) in Serum or Plasma by GITA with probe detection [facility] Hepatitis B virus DN A [log units/volume] (viral load) in Serum or Plasma by GITA with probe detection [facility] Hepatitis B virus DN A [Units/volume] (viral load) in Serum or Plasma by GITA with probe detection [facility] Hepatitis B virus surface Ab [Presence] in Serum [facility] Hepatitis B virus surface Ab [Units/volume] in Serum [facility] Hepatitis B virus surface Ag [Presence] in Serum or Plasma by Immunoassay [facility] Hepatitis C virus Ig G Ab [Presence] in Serum or Plasma by Immunoassay [facility] HFE gene mutations f ound [Identifier] in Blood or Tissue by Molecular genetics method Nominal [facility] Homogenous nuclear A b pattern [Titer] in Serum [facility] IgG [Mass/volume] in Serum or Plasma [facility] Lipoprotein a [Moles/volume] in Serum or Plasma [facility] Mitochondria M2 IgG Ab [Units/volume] in Serum [facility] Nuclear Ab [Titer] i n Serum [facility] Patient Education Hemorrhoids (D C) Esophagitis Know your Meds [facility] Work Phone: Patient referral [facility] Work Phone: PM-SCL extractable nuclear Ab [Mass/volume] in Serum by Immune diffusion (ID) [facility] RNA polymerase III I gG Ab [Units/volume] in Serum or Plasma by Immunoassay [facility] Th-To Ab [Units/volu me] in Serum by Line blot [facility] Immunizations Immunization Date Immunization Notes Care Provider [facility] 12-14-2020 meningococcal oligosaccharide (groups A, C, Y and W-135) diphtheria toxoid conjugate vaccine (MCV4O) DO [employer] Work Phone: [facility] 01-04-2016 meningococcal oligosaccharide (groups A, C, Y and W-135) diphtheria toxoid conjugate vaccine (MCV4O) DO [employer] Work Phone: [facility] 01-04-2016 tetanus toxoid, redu sia diphtheria toxoid, and acellular pertussis vaccine, adsorbed REUBEN Diaz Work Phone: [facility] 01-18-2015 meningococcal oligosaccharide (groups A, C, Y and W-135) diphtheria toxoid conjugate vaccine (MCV4O) DO [employer] Work Phone: [facility] 01-18-2015 tetanus toxoid, redu sia diphtheria toxoid, and acellular pertussis vaccine, adsorbed REUBEN Diaz Work Phone: [facility] 12-29-2013 poliovirus vaccine, inactivated DO Baljit House Work Phone: [facility] 07-20-2013 diphtheria, tetanus toxoids and acellular pertussis vaccine DO Baljit House Work Phone: [facility] 07-20-2013 hepatitis A vaccine, pediatric/adolescent dosage, 2 dose schedule DO Baljit House Work Phone: [facility] 04-15-2013 hepatitis B vaccine, pediatric or pediatric/adolescent dosage DO Baljit House Work Phone: [facility] 04-15-2013 poliovirus vaccine, inactivated DO Baljit House Work Phone: [facility] 04-15-2013 varicella virus vaccine DO Nigel [facility] Work Phone: [facility] 01-17-2013 diphtheria, tetanus toxoids and acellular pertussis vaccine DO Baljit House Work Phone: [facility] 01-17-2013 hepatitis B vaccine, pediatric or pediatric/adolescent dosage DO Baljit House Work Phone: [facility] 01-17-2013 measles, mumps and rubella virus vaccine DO Baljit House Work Phone: [facility] 01-17-2013 poliovirus vaccine, inactivated DO Baljit House Work Phone: [facility] 12-28-2012 hepatitis A vaccine, pediatric/adolescent dosage, 2 dose schedule DO Baljit House Work Phone: [facility] 12-14-2012 diphtheria, tetanus toxoids and acellular pertussis vaccine DO Baljit House Work Phone: [facility] 12-14-2012 hepatitis B vaccine, pediatric or pediatric/adolescent dosage DO Baljit House Work Phone: [facility] 12-14-2012 measles, mumps and rubella virus vaccine DO Baljit House Work Phone: [facility] 12-14-2012 poliovirus vaccine, inactivated DO Baljit House Work Phone: [facility] 12-14-2012 varicella virus vaccine DO Nigel Pisano Work Phone: [facility] 2003 diphtheria, tetanus toxoids and acellular pertussis vaccine, unspecified formulation DO Baljit Pisano Work Phone: [facility] 2003 haemophilus influenz ae type b conjugate and Hepatitis B vaccine DO Baljit Pisano Work Phone: [facility] 2003 pneumococcal conjuga te vaccine, 7 valent DO [facility] Work Phone: [facility] 2003 poliovirus vaccine, inactivated DO [facility] Work Phone: [facility] Payers Date Payer Category Payer [employer] ( [employer] others) [id number] 04-21-2023 Self-pay [id number] 12-31-2022 [employer] ( [employer] others) [id number] 12-31-2022 [employer] ( [employer] others) [id number] 05-11-2017 [employer] ( [employer] others) [facility] [id number] 05/11/2017-Present [phone] [address] [place] [address] [id number] 05-11-2017 [employer] ( and others) [id number] 11-25-2012 [employer] ( and others) [id number] 2003 Unknown [id number] 2.16.840.1.331906.3.579.2. 593 2003 Unknown [id number] 2.16.840.1.153422.3.579.2. 593 2003 Unknown [id number] 2.16.840.1.067099.3.579.2. 593 2003 Unknown [id number] 2.16.840.1.600001.3.579.2. 718 2003 Unknown [id number] 2.16.840.1.052359.3.579.2. 718 2003 Unknown [id number] 2.16.840.1.029526.3.579.2. 718 2003 Unknown [id number] 2.16.840.1.143526.3.579.2. 718 2003 Unknown [id number] 2.16.840.1.955976.3.579.2. 718 2003 Unknown [id number] 2.16.840.1.647725.3.579.2. 718 2003 Unknown [id number] 2.16.840.1.560556.3.579.2. 718 2003 Unknown [id number] 2.16.840.1.268042.3.579.2. 718 2003 Unknown [id number] 2.16.840.1.320636.3.579.2. 718 2003 Unknown [id number] 2.16.840.1.256865.3.579.2. 1286 2003 Unknown [id number] 2.16.840.1.403939.3.579.2. 1285 2003 Unknown [id number] 2.16.840.1.566135.3.579.2. 1286 2003 Unknown [id number] 2.16.840.1.199970.3.579.2. 1285 2003 Unknown [id number] 2.16.840.1.321390.3.579.2. 1286 2003 Unknown [id number] 2.16.840.1.907910.3.579.2. 1286 2003 Unknown [id number] 2.16.840.1.128415.3.579.2. 1286 2003 Unknown [id number] 2.16.840.1.640649.3.579.2. 1286 2003 Unknown [id number] 2.16.840.1.731809.3.579.2. 1286 2003 Unknown [id number] 2.16.840.1.943737.3.579.2. 1286 2003 Unknown [id number] 2.16.840.1.058892.3.579.2. 1286 2003 Unknown [id number] 2.16.840.1.945920.3.579.2. 1286 05-11-1961 [employer] ( [employer] others) [id number] 05-11-1961 [employer] ( and others) [id number] Unknown [id number] 2.16.840.1.504298.3.579.2. 531 Unknown [id number] 2.16.840.1.944617.3.579.2. 531 Unknown [id number] 2.16.840.1.782576.3.579.2. 531 Unknown [id number] 2.16840.1.216275.3.579.2. 531 Social History Date Type Detail Facility Unknown if ever smoked [employer] Other Start: 06-21-2020 End: 07-21-2023 [facility] Start: 2005 Sex Assigned At Male [facility] Start: 02-20-2022 End: 12-31-2023 Tobacco smoking status NHIS Never smoked tobacco [facility] Start: 02-20-2022 Tobacco use and exposure Smokeless tobacco [facility] Start: 07-21-2023 Alcohol intake Ex-drinker (finding) [facility] Start: 06-21-2020 End: 07-21-2023 History of Social function [facility] Start: 2003 Sex Assigned At Not on file [facility] [employer] Start: 03-22-2024 Sex Male (finding) [facility] Goals Date Patient Goal Desired Activity /State Clinical Notes 02-04-2022 to 03-22-2024 Note Date & Type Note Facility 03-22-2024 Procedure note [facility] 03-22-2024 History and physical note [facility] 03-11-2024 History and physical note Note Date/Time March 22, 2024 10:12am [facility] [address] [place] [address] Gastroenterology H&P Signed Patient: Ta Duncan MR#: [id number] : 2005 Acct:[id number] Age/Sex: 18 / M Adm Date: 4 Loc: Room: Type: [facility] Attending Dr: Wilver Felton MD Copies to: MD Leatha Ribeiro APRN, JAKE~ Date of Service: 03/22/2024 HISTORY & PHYSICAL: [...] signed by Wilver Felton MD> 03/22/24 1012 [facility] Work Phone: 1(509) 268-883010-01-2024 Evaluation note* Author Kareem Tijerina [facility] Authored February 09, 2024 8: 48am [...] 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 6. 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 Salivary cortisol x 2 ordered. [facility] Work Phone: 1(636) 284-140408-06-2024 Evaluation note* Author Molly Kulkarni [facility] Authored December 15, 2023 9:4 0am [...] the results will be discussed with the Dermatology Technician. 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 6. 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 Salivary cortisol x [address] [facility] Work Phone: 1(705) 849-594308-06-2024 Evaluation note* Author Molly Kulkarni [facility] Authored December 15, 2023 9:4 0am [...] the results will be discussed with the Dermatology Technician. 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 6. 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 6. 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 Salivary cortisol x [address] [facility] Work Phone: 1(926) 363-688008-06-2024 Evaluation note* Author Molly Kulkarni [facility] Authored December 15, 2023 9:4 0am [...] the results will be discussed with the Dermatology Technician. 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 6. 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 6. 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 Salivary cortisol x [address] 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 6. 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 6. 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 6. 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 Salivary cortisol x 2 ordered/pending. 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 6. 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 Author Molly [facility] Authored December 15, 2023 9:4 [...] the results will be discussed with the Dermatology Technician. 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 6. 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 Salivary cortisol x [address] 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 6. 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 Handout given. Our free weekly [...] and benefits of prescribed meds discussed. Initial jvtc-sh-dgpr interview/evaluation. The patient was counseled in detail on the options for weight loss in an individual setting. 55 minutes was spent caring for the patient, counseling/educating patient on the options for the treatment of obesity and related healthcare issues. The program's treatment goals were reviewed with the patient. Each aspect of the program was discussed with the patient. 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 6. 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 Handout given. Our free weekly [...] and benefits of prescribed meds discussed. Initial kzjv-vt-fttx interview/evaluation. The patient was counseled in detail on the options for weight loss in an individual setting. 55 minutes was spent caring for the patient, counseling/educating patient on the options for the treatment of obesity and related healthcare issues. The program's treatment goals were reviewed with the patient. Each aspect of the program was discussed with the patient. 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 6. 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 Salivary cortisol x 2 ordered/pending. 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 6. 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 Handout given. Our free weekly [...] and benefits of prescribed meds discussed. Initial upmu-it-ojnx interview/evaluation. The patient was counseled in detail on the options for weight loss in an individual setting. 55 minutes was spent caring for the patient, counseling/educating patient on the options for the treatment of obesity and related healthcare issues. The program's treatment goals were reviewed with the patient. Each aspect of the program was discussed with the patient. 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 6. 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 6. 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 Salivary cortisol x 2 ordered/pending. 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 6. 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 Handout given. Our free weekly [...] and benefits of prescribed meds discussed. Initial [id number] interview/evaluation. The patient was counseled in detail on the options for weight loss in an individual setting. 55 minutes was spent caring for the patient, counseling/educating patient on the options for the treatment of obesity and related healthcare issues. The program's treatment goals were reviewed with the patient. Each aspect of the program was discussed with the patient. 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 6. 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 6. 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 Salivary cortisol x 2 ordered/pending. [facility] Work Phone: [phone]) 975-357503-12-2024 History of Present illness Narrative* ERLINDA Cooper - 07/21/2023 9:30 AM EDT Images from the original note were not included. [address] [address] Date of Service: 07/21/2023 Thank you for [...] 02/20/2022 Performed by Dean Atkins DO at [facility] reviewed. Social History Tobacco Use Smoking status: Never Smokeless tobacco: Never Vaping Use Vaping Use: Never used Substance Use Topics Alcohol use: Not Currently Drug use: Never reviewed. Past Medical History: Diagnosis Date Anxiety Bipolar disorder ([facility]) Depression Fractures Mood disorder ([facility]) reviewed. 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 Scl antibody, andree p.m. Scl antibody, anti dsDNA antibody, U3 PAPER CONE DRYING MACHINE OPERATOR were all negative/ normal THC you antibody, [...] or corrected. Thank you for your understanding. [facility] Pattie Cox PA-C [address] [place] [address] Office [phone] ERLINDA Cooper 07/21/23 [id number] ERLINDA Cooper 07/21/23 4300 documented in this encounterPremier Health Atrium Medical CenterFRS [id number] Evaluation note* Encounter Date Diagnosis Assessment Notes Treatment Notes Treatment Clinical Notes May, Elevated LFTs (ICD-10 - R79.89) The liver studies are all within normal limits. May, Fatty liver (ICD-10 - K76.0) Plan for repeat fibroscan in one year for routine surveillance. [employer] Other 12-12-2023 Evaluation note* Encounter Date Diagnosis Assessment Notes Treatment Notes Treatment Clinical Notes Apr, Fatty liver (ICD-10 - K76.0) Apr, Elevated LFTs (ICD-10 - R79.89) Apr, Hepatitis A test positive (ICD-10 - B15.9) Apr, Fatigue, unspecified type (ICD-10 - R53.83) [employer] Other 11-09-2023 Evaluation note* Encounter Date Diagnosis Assessment Notes Treatment Notes Treatment Clinical Notes Mar, Hepatitis A test positive (ICD-10 - B15.9) f/u after testing Mar, Elevated LFTs (ICD-10 - R79.89) Mar, Fatty liver (ICD-10 - K76.0) [employer] Other 09-27-2022 Evaluation note* Encounter Date Diagnosis [...] treatment plan. Patient left in stable condition [employer] Other [place] complaint+Reason for visit Narrative* Chief Complaint 1 Month Follow Up Stomach Issues Amb Documentation [place]-Referral Leatha Diaz k76.0 r73.9 k76.0 Reason for Visit Family history of [place] shimoto thyroiditis Fatigue Fatty liver Multiple joint pain Obesities, morbid Sleep disturbance Vitamin D deficiency Abnormal weight gain Fatty liver Sleep disturbance Bipolar disorder [facility] Work Phone: Chief complaint+Reason for visit Narrative* Chief Complaint Stomach Issues Amb Documentation [place]-Referral Leatha Emily k76.0 r73.9 k76.0 chest congestion Reason for Visit Family history of [place] shimoto thyroiditis Fatigue Fatty liver Multiple joint pain Obesities, morbid Sleep disturbance Vitamin D deficiency Abnormal weight gain Fatty liver Sleep disturbance Bipolar disorder Bronchitis Maxillary sinusitis [facility] Work Phone: Chief complaint+Reason for visit Narrative* Chief Complaint Amb Documentation [place]-Referral Leatha Emily k76.0 r73.9 k76.0 chest congestion knee issues Mental concerns Reason for Visit Abnormal weight gain Fatty liver Sleep disturbance Bipolar disorder Bronchitis Maxillary sinusitis Adult BMI 50.0-59.9 kg/sq m Fatty liver Mixed hyperlipidemia Vitamin D deficiency Bipolar disorder Left knee pain Right knee pain Depression [facility] Work Phone: Chief complaint+Reason for visit Narrative* Chief Complaint [place]-Referral Abelino belkismaryana Emily k76.0 r73.9 k76.0 chest congestion knee issues Mental concerns 4 week follow up Reason for Visit Abnormal weight gain Fatty liver Sleep disturbance Bipolar disorder Bronchitis Maxillary sinusitis Adult BMI 50.0-59.9 kg/sq m Fatty liver Mixed hyperlipidemia Vitamin D deficiency Bipolar disorder Left knee pain Right knee pain Depression Adult BMI 50.0-59.9 kg/sq m Fatty liver Mixed hyperlipidemia Tachycardia Depression [facility] Work Phone: Evaluation noteNo assessment information available [facility] Work Phone: Evaluation noteNo [email or web address] Other Evaluation note* Diagnosis Positive TENA (antinuclear antibody)- Primary Other and unspecified nonspecific immunological findings Chronic fatigue Other malaise and fatigue Pain in both hands Bilateral carpal tunnel syndrome Carpal tunnel syndrome documented in this encounter [facility]* Author Zaida ArtPrem[facility] Authored August 13, 2023 10:3 8am Assessment: [...] Our exercise program was recommended with our private wealth advisor/obesity exercise group. Handout given. Our free weekly [...] and benefits of prescribed meds discussed. Initial [id number]-ad-[id number] interview/evaluation. The patient was counseled in detail on the options for weight loss in an individual setting. [ ] minutes was spent caring for the patient, counseling/educating patient on the options for the treatment of obesity and related healthcare issues. The program's treatment goals were reviewed with the patient. Each aspect of the program was discussed with the patient. [facility] Work Phone: History general Narrative - Reported* Type Description Date Medical History bi polar [employer] Other History general Narrative - Reported* Type Description Date Medical History bi polar Surgical History appendectomy [employer] [facility] [employer] Other History general Narrative - Reported* Type Description Date Medical History bi polar Surgical History appendectomy Hospitalization History see above [employer] Other Instructions* Attachments The following attachments cannot be sent through Care Everywhere. * Carpal tunnel syndrome (Czech) * Fibromyalgia (Czech) * Gabapentin, ADULT (Czech) * Duloxetine, ADULT (Czech) * Meloxicam, ADULT (Czech) documented in this encounterPremier Health Atrium Medical CenterGridstore [facility] SystemReason for visit Narrative PATIENT IS HERE AT THE REQUEST OF DR. PISANO FOR HEP INFECTION AND ELEVATED LIVER ENZYMES. US GALL BLADDER IN PT DOCS-LABS IN REFERRAL [email or web address] Other Summary Purpose Family History No Family [...] Unknown Disorder of thyroid Unknown Advance Directives No [...] Month Follow Up Stomach Issues Amb Documentation [place]-Referral Leatha Diaz Reason for Visit Family history of [place] shimoto thyroiditis Fatigue Fatty liver Multiple joint pain Obesities, morbid Sleep disturbance Vitamin D deficiency Chief Complaint M79.1 M25.50,R 76.0 UPPER BACK PAIN, KNEE PAIN FAT 1 Month Follow Up Stomach Issues Amb Documentation [place]-Referral Leatha Diaz k76.0 r73.9 k76.0 Reason for [...] both hands Bilateral carpal tunnel syndrome Procedures Pattie Braden PA [address] [facility] [address] [place] [address] Referral ID Status Reason Start Date Expiration Date V isits Requested Visits Authorized [id number] Pending Review 07/21/2023 07/20/2024 1 1 Reason [...] DATE CREATED AUTHOR AUTHOR'S ORGANIZ ATION 04/19/2021 [facility] DATE CREATED AUTHOR AUTHOR'S ORGANIZ ATION 05/02/2021 [facility] Special[facility] DATE CREATED AUTHOR AUTHOR'S ORGANIZ ATION 09/22/[address] [facility] DATE CREATED AUTHOR AUTHOR'S ORGANIZ ATION 06/22/2023 [facility] DATE CREATED AUTHOR AUTHOR'S ORGANIZ ATION 01/25/2024 [facility] DATE CREATED AUTHOR AUTHOR'S ORGANIZ ATION 01/25/2024 [facility] DATE CREATED AUTHOR AUTHOR'S ORGANIZ ATION 01/28/2024 [facility] DATE CREATED AUTHOR AUTHOR'S ORGANIZ ATION 04/02/2024 [facility] REASON FOR VISIT (unrecogniz ed [...] Active Lewis Mirza MD Attending Provider Active Log Loader Relationship Specialty Start Date End Date Baljit Pisano DO [address] [place] [address] PCP - General 01/07/17 Team Status: Active Member Role Status Dates Leatha Diaz APRN TOW MOTOR DRIVER-C Primary Care Provider Active Team Status: Inactive [...] Member Role Status Dates Leatha Diaz APRN TOW MOTOR DRIVER-C Primary Care Provider, Attending Provider Active Start: July 07, 2023 End: July 07, 2023 Team Status: Active Member Role Status Dates Leatha Diaz APRN TOW MOTOR DRIVER-C Primary Care Provider, Attending Provider Active Start: July 08, 2023 Team Status: Active Member Role Status Dates Leatha Diaz APRN TOW MOTOR DRIVER-C Primary Care Provider Active Start: August 07, 2023 Montserrat Sterling Attending Provider Active Start: August 07, 2023 Team Status: Inactive Member Role Status Dates Leatha Diaz APRN TOW MOTOR DRIVER-C Primary Care Provider Active Start: August 13, 2023 End: August 13, 2023 Kareem Tijerina MD Attending Provider Active Start: August 13, 2023 End: August 13, 2023 Team Status: Active Member Role Status Dates Leatha Diaz APRN TOW MOTOR DRIVER-C Primary Care Provider Active Start: August 07, 2023 Montserrat Sterling LPN Attending Provider Active S tart: August 07, 2023 Team Status: Inactive Member Role Status Dates Leatha Diaz APRN TOW MOTOR DRIVER-C Primary Care Provider Active Start: August 19, 2023 End: August 19, 2023 ROS Mireles Attending Provider Active Start: August 19, 2023 End: August 19, 2023 Team Status: Inactive Member Role Status Dates Leatha Diaz APRN TOW MOTOR DRIVER-C Primary Care Provider, Attending Provider Active Start: August 27, 2023 End: August 27, 2023 Team Status: Inactive Member Role Status Dates Leatha Diaz APRN TOW MOTOR DRIVER-C Primary Care Provider Active Start: September 10, 2023 End: September 10, 2023 Kareem Tijerina MD Attending Provider Active Start: September 10, 2023 End: September 10, 2023 Team Status: Inactive Member Role Status Dates Leatha Diaz APRN TOW MOTOR DRIVER-C Primary Care Provider, Attending Provider Active Start: September 24, 2023 End: September 24, 2023 Team Status: Inactive Member Role Status Dates Leatha Diaz APRN TOW MOTOR DRIVER-C Primary Care Provider, Attending Provider Active Start: October 12, 2023 End: October 12, 2023 Team Status: Active Member Role Status Dates Leatha Diaz APRN TOW MOTOR DRIVER-C Primary Care Provider Active Start: August 07, 2023 Montserrat Nelson LPN Attending Provider Active St art: August 07, 2023 Team Status: Inactive Member Role Status Dates Leatha Diaz APRN TOW MOTOR DRIVER-C Primary Care Provider Active Start: October 22, 2023 End: October 22, 2023 Kareem Tijerina MD Attending Provider Active Start: October 22, 2023 End: October 22, 2023 Team Status: Inactive Member Role Status Dates Leatha Diaz APRN TOW MOTOR DRIVER-C Primary Care Provider, Attending Provider Active Start: November 09, 2023 End: November 09, 2023 Team Status: Inactive Member Role Status Dates Leatha Diaz APRN TOW MOTOR DRIVER-C Primary Care Provider Active Start: December 09, 2023 End: December 09, 2023 Kareem Tijerina MD Attending Provider Active Start: December 09, 2023 End: December 09, 2023 Team Status: Inactive Member Role Status Dates Leatha Diaz APRN TOW MOTOR DRIVER-C Primary Care Provider Active Start: December 15, 2023 End: December 15, 2023 Kareem Tijerina MD Attending Provider Active Start: December 15, 2023 End: December 15, 2023 Team Status: Inactive Member Role Status Dates Leatha Diaz APRN TOW MOTOR DRIVER-C Primary Care Provider, Attending Provider Active Start: December 31, 2023 End: December 31, 2023 Team Status: Inactive Member Role Status Dates Leatha Diaz APRN TOW MOTOR DRIVER-C Primary Care Provider, Attending Provider Active Start: January 28, 2024 End: January 28, 2024 Team Status: Inactive Member Role Status Dates Leatha Diaz APRN TOW MOTOR DRIVER-C Primary Care Provider Active Start: February 09, 2024 End: February 09, 2024 Kareem Tijerina MD Attending Provider Active Start: February 09, 2024 End: February 09, 2024 Team Status: Inactive Member Role Status Dates Leatha Diaz APRN TOW MOTOR DRIVER-C Primary Care Provider, Attending Provider Active Start: February 25, 2024 End: February 25, 2024 Team Status: Inactive Member Role Status Dates Leatha Diaz APRN TOW MOTOR DRIVER-C Primary Care Provider Active Start: March 222023 End: March 22, 2024 Wilver Felton MD Attending Provider Active Start: March 22, 2024 End: March 22, 2024 Team Status: Active Member Role Status Dates Leatha Diaz APRN TOW MOTOR DRIVER-C Primary Care Provider Active Start: March 222023 [...] BE BASED ON THE PRIMARY CLINICAL RECORDS. [facility] [employer] [facility]. provides no warranty or guarantee of the accuracy or completeness of information in this document.
== END 2024-03-30 10:46 ==
LOC: SLEEP 04-04 07:52
PROVIDERS: PCP Nurse Practitioner Family; Visit Provider Nurse Practitioner Family
DX: G47.33 Obstructive sleep apnea (adult) (pediatric) (principal)
CPT/HCPCS: 95806

== ENCOUNTER 2024-04-06 21:38 | Emergency (ER) | payer OTHER, SELFPAY ==
[2024-04-06 21:47] VITALS: BP 151/105; PULSE 101; TEMP 36.8; O2SAT 98; BMI 53.2
--- NOTE | 2024-04-06 21:52 | XR_ITS ---
[facility] [place] [id number] Patient Name: JET HERRERA MRN: [id number] date: 2005 Sex: M Assigned Patient Location: ER Current Patient Location: Accession/Order Number: [id number] Exam Date: 04/06/2024 22:21 Report Date: 04/06/2024 23:12 At the request of: ELVIN MARKER Procedure: XR hand LT min 3V EXAM: XR hand LT min 3V HISTORY: The patient is a 18-year-old male, pain COMPARISON: 08/06/2023. FINDINGS: The left hand is radiographically negative with no evidence of fracture, dislocation, cortical discontinuities, or other osseous or articular abnormalities. No radiopaque foreign bodies are seen. XR/XR hand LT min 3V IMPRESSION: Negative. Electronically authenticated by: JAIRO WHITE Date: 04/06/2024 23:12
--- OUTSIDE RECORDS SUMMARY | 2024-04-06 21:53 | XMS_ITS | CCD ---
Author Organization [facility] Team Providers Care Silver Lap Machine Tender Name Role Phone NAOMI ROD Unavailable Unavailable [...] Consulting Unavailable HOUSE, DR SMILEY Attending Unavailable [facility], DR SANJAY Gavin Consulting Unavailable Wilver Felton Unavailable House, DO Smiley Primary Care Provider [phone] MD Wilver Felton Attending Provider [phone] MD Lewis Mirza Attending Provider [phone] HOUSE, BALJIT Parker Primary Care Unavailable Rafita [...] Provider MD Lewis Mirza Attending Provider REUBEN Diaznifer Primary Care Provider MD Kareem Tijerina Attending Provider ROSY Rocha, PATTIE Attending Unavailable [...] WEBSTER Attending Unavailable SANJAY WEBSTER Referring Unavailable FERDINAND, BALJIT Primary Care Unavailable LINDY LANGSTON Attending Unavailable ROHRBACHER, LEATHA Referring Unavailable ROHRBACHER, [facility] Primary Care Unavailable Rohrbacher [facility] Wilver Felton MD Attending Provider Asaad, Imad Attending Unavailable Norris, Baljit Primary Care Unavailable Asaad, Imad Admitting Unavailable [place], Baljit Primary Care Unavailable Lewis Mirza Admitting Unavailable Lewis Mirza Attending Unavailable Emily, Leatha Primary Care Unavailable Kareem Tijerina Admitting Unavailable Kareem Tijerina Attending Unavailable Asaariana, Wilver Attending Unavailable [facility] Primary Care Unavailable Asaad, Imad Admitting Unavailable Allergies Allergy Classification Reported Allergen(s) Allergy Type Date of Onset Reaction(s) Facility (1 source) [facility]illAMINE [facility] Other (6 sources) Penicillin; Translations: [penicillin] Drug Allergy Unknown [facility] Repository (18 sources) Penicillins; Translations: [PENICILLINS] Propensity to adverse reactions to drug 7 [employer] (2 sources) Penicillins Drug allergy (disorder) 4 [facility] Repository Medications Current Medications Medication Drug [...] Start: 10-22-2023 take 1 capsule by mo [facility] once daily cholecalciferol (vitamin D3) Active 1 [...] 06/30/2023 Active take 2 tablets by mo [facility] twice daily at mealtime as needed Ibuprofen [...] By: Chavez Valentine on 03-23-2024 Pathology study [facility] Other Darnell 03-22-2024 L ---- Specimen: [id number] Received: 03/22/24 Status: MELECIO Little Num: [id number] Spec Type: Surgical Subm Dr: Wilver Felton MD Tissues: A Small Intestine - Biopsy/Polyp (SMALL BOWEL BX'S R/O CELIAC) B GASTRIC FOR HP (GASTRIC BX'S R/O H PYLORI) C Colon Biopsy (RANDOM COLON BX'S R/O MICRO ) Procedures: HE/6, Gross/Micro L4/3, H PYLORI Age/ Patient Sex Location Account Attending Physician Ta Duncan 18/M [id number] Wilver Felton MD SPEC NUM: [id number] RECD: 03/22/24 STATUS: MELECIO LITTLE NUM: [id number] OLEGARIO: 03/22/24 [facility] DR: Wilver Felton MD ENTERED: 03/22/[address] [facility] DR: SPEC TYPE: Surgical DEPT: S ENTERED BY: [id number] RECV BY: [id number] ORDERED: HE/6, Gross/Micro L4/3, H PYLORI ORDERED: [...] submitted in a single cassette. (1, ns, [id number] A) NAOMI Specimen: [id number] Received: 03/22/24 Status: MELECIO Req Num: [id number] Spec Type: Surgical Subm Dr: Wilver Felton MD Tissues: A Small Intestine - Biopsy/Polyp (SMALL BOWEL BX'S R/O CELIAC) B GASTRIC FOR HP (GASTRIC BX'S R/O H PYLORI) C Colon Biopsy (RANDOM COLON BX'S R/O MICRO ) Procedures: HE/6, Gross/Micro L4/3, H PYLORI Patient: Ta Duncan [id number] (Continued) Specimen: [id number] Received: 03/22/24 (Continued) Gross Description (Continued) Signed (signature on file) Chavez Valentine MD 03/23/24 1501 Specimen: [id number] Received: 03/22/24 Status: MELECIO Little Num: [id number] Spec Type: Surgical Subm Dr: Wilver Felton MD Tissues: A Small Intestine - Biopsy/Polyp (SMALL BOWEL BX'S R/O CELIAC) B GASTRIC FOR HP (GASTRIC BX'S R/O H PYLORI) C Colon Biopsy (RANDOM COLON BX'S R/O MICRO ) Procedures: HE/6, Gross/Micro L4/3, H PYLORI Patient: Ta Duncan [id number] (Continued) Specimen: [id number] Received: 03/22/24 (Continued) Gross Description (Continued) Part B is received in formalin labeled with the patients name and gastric BX are two richards- waldrop, focally erythematous, friable, 0.3 cm each in greatest dimension tissue bits. The specimen is entirely submitted in a single cassette. (1, ns, [id number]) Part C is received in formalin labeled with the patients name and random colon BX'S are two richards-waldrop, focally erythematous, friable, 0.2 and 0.4 cm tissue bits. The specimen is entirely submitted in a single cassette. (1, ns, [id number] C) Microscopic Description A-C: Microscopic examination is performed. CPT Codes 81865 x3, 44724 Specimen: [id number] Received: 03/22/24 Status: MELECIO Little Num: [id number] Spec Type: Surgical Subm Dr: Wilver Felton MD Tissues: A Small Intestine - Biopsy/Polyp (SMALL BOWEL BX'S R/O CELIAC) B GASTRIC FOR HP (GASTRIC BX'S R/O H PYLORI) C Colon Biopsy (RANDOM COLON BX'S R/O MICRO ) Procedures: HE/6, Gross/Micro L4/3, H PYLORI (more content not included)... Normal [facility] XR CHEST 2 [...] Owens MD on 10/30/2023 1:12 AM Normal [facility] Cholesterol [Mass/volume] in Serum or PlasmaOrdered By: Kareem Tijerina on 08-13-2023 Cholesterol [Mass/Vol] 162 mg/dL Normal 140-200 [facility] Comment on above: Chol less than [...] #### [facility] , #### PARVEEN, TSH3 #### [facility] [address] [place] [address] Cholesterol in LDL Calc [Mas s/Vol]Ordered By: Kareem Tijerina on 08-13-2023 Cholesterol in LDL [Mass/Vol] 101 mg/dL High 0-100 [facility] Comment on above: LDL ATP III CLASSIFI CATIONLDL less than 100 mg/dL OptimalLDL 100-129 mg/dL Near or above optimalLDL 130-159 mg/dL Borderline highLDL 160-189 mg/dL HighLDL greater than 189 mg/dL Very high Cholesterol in VLDL Calc [Ma ss/Vol]Ordered By: Kareem Tijerina on 08-13-2023 Cholesterol in VLDL [Mass/Vol] 28 mg/dL [facility] HbA1c HPLC (Bld) [Mass fract ion]on 08-13-2023 HbA1c (Bld) [Mass fraction] 5.6 % [facility] Insulinon 08-13-2023 Insulin 23.8 u[iU]/mL Normal 2.6-24.9 [facility] Comment on above: Result Comment: Perf ormed at: CB - [facility] [address] [id number] Forging Engineer: Zechariah Paula PhD, Phone: [phone] PERFORMED BY: [place] [address] PATHOLOGIST MANAGED CARE PROVIDER LISA COOLEY M.D. Performed By: #### M ITOM2, L-K MICRO, ALPHA PHEN, HEMOCHROM, CERULOP, TENA, IGG, SMAB #### [facility] , #### PARVEEN, TSH3 #### [address] Lipid Panelon 08-13-2023 LDL Cholesterol,Calculated 101 mg/dL High 0-100 [facility] Comment on above: Result Comment: LDL ATP III CLASSIFICATION LDL less than 100 mg/dL Optimal LDL 100-129 mg/dL Near or above optimal LDL 130-159 mg/dL Borderline high LDL 160-189 mg/dL High LDL greater than 189 mg/dL Very high Performed By: #### M ITOM2, L-K MICRO, ALPHA PHEN, HEMOCHROM, CERULOP, TENA, IGG, SMAB #### [facility] , #### PARVEEN, TSH3 #### [address] Triglyceride w/Reflex 144 mg/dL Normal 0-149 [facility] Comment on above: [...] #### [facility] , #### PARVEEN, TSH3 #### [address] VLDL CHOLESTEROL 28 mg/dL Normal [facility] Comment on above: Performed By: #### M ITOM2, L-K MICRO, ALPHA PHEN, HEMOCHROM, CERULOP, TENA, IGG, SMAB #### [facility] , #### PARVEEN, TSH3 #### [address] Serum or plasma high density lipoprotein (HDL) cholesterol measurementOrdered By: Kareem Tijerina on 08-13-2023 Cholesterol in HDL [Mass/Vol] 32 mg/dL Normal 23-92 [facility] Comment on above: HDL CHOL ATP-III [...] #### [facility] , #### PARVEEN, TSH3 #### [address] Serum or plasma insulin reynold urement (units/volume)Ordered By: Kareem Tijerina on 08-13-2023 Insulin Qn 23.8 u[iU]/mL 2.6-24.9 [facility] Comment on above: Performed at: CB - [facility] [id number] [place], [place] [id number] Director: Zechariah Paula PhD, Phone: [phone] Serum or plasma total choles terol/high density lipoprotein (HDL) cholesterol mass ratOrdered By: Kareem Tijerina on 08-13-2023 Cholesterol.total/[place] sterol in HDL [Mass ratio] 5.1 {ratio} Normal <5.0 [facility] Comment on above: Result Comment: PERF ORMED BY: [place] [address] PATHOLOGIST MANAGED CARE PROVIDER LISA COOLEY M.D. Performed By: #### M ITOM2, L-K MICRO, ALPHA PHEN, HEMOCHROM, CERULOP, TENA, IGG, SMAB #### [facility] , #### PARVEEN, TSH3 #### [address] Triglyceride [Mass/volume] i n Serum or PlasmaOrdered By: Kareem Tijerina on 08-13-2023 Triglyceride [Mass/Vol] 144 mg/dL 0-149 [facility] Comment on above: TRIG ATP III [...] Palm MD on 07/22/2023 8:15 PM Normal [facility] - Chemistry and C hemistry - challengeon 07-08-2023 TSH Qn 1.138 m[IU]/L 0.516-4.13 0 [facility] No Panel Informationon 07-08 25-Hydroxy Vitamin D Total 11.0 ng/mL [facility] Comment on above: <20 ng/mL Vit D defi cient20-<30 ng/mL Vit D lwgtbmrkegjy31-327 ng/mL Vit D sufficient>100 ng/mL Potential Toxicity Serum or plasma thyroperoxid ase antibody assay (units/volume)on 07-08-2023 TPO Ab Qn 9 [IU]/mL 0-26 [facility] Thyroglobulin [Mass/volume] in Serum or Plasmaon 07-08-2023 Thyroglobulin [Mass/Vol] <1.0 [IU]/mL 0.0-0.9 [facility] Comment on above: Thyroglobulin Antibo dy measured by [employer] Products GroupMethodologyIt should be noted that the presence of thyroglobulinantibodies may not be pathogenic nor diagnostic, especiallyat very low levels. The assay juice mixer has found thatfour percent of individuals without evidence of thyroiddisease or autoimmunity will have positive TgAb levels upto 4 IU/mL.Performed at: [facility] Director: Zechariah Paula PhD, Phone: [phone] BASIC METABOLIC PANLon 06-30 Anion gap [Moles/Vol] 6 mmol/L Normal 5-15 [facility] Comment on above: Performed By: #### B ASAF CBCA, 59599-8, 40711-6 #### [facility] ([id number]) [address] [place] [address] Calcium [Mass/Vol] 8.9 mg/dL Normal 8.5-10.5 [facility] Comment on above: Performed By: #### B ASAF CBCA, 77827-1, 04315-8 #### [facility] ([id number]) [address] [place] [address]67 Chloride [Moles/Vol] 104 mmol/L Normal 98-109 [facility] Comment on above: Performed By: #### B SHERLYN RON, 56820-0, 29891-2 #### [facility] ([id number]) [address] [place] [address] 62413 CO2 [Moles/Vol] 24 mmol/L Normal 22-32 [facility] Comment on above: Performed By: #### B SHERLYN RON, 84917-4, 79275-5 #### [facility] ([id number]) [address] [place] [address]999 Creatinine [Mass/Vol] 0.83 mg/dL Normal 0.70-1.20 [facility] Comment on above: Result Comment: METH OD TRACEABLE TO IDMS STANDARD Performed By: #### B SHERLYN RON, 57446-8, 25860-3 #### [facility] ([id number]) [address] [place] [address]33 eGFR (CKD-EPI) NON-RACE DEPENDENT >90 Normal >59 [facility] Comment on above: Result Comment: Reported eGFR is based on the CKD-EPI 2020 equation that does not use a race coefficient. Performed By: #### B SHERLYN RON, 29074-7, 07191-7 #### [facility] ([id number]) [address] [place] [address] 28532 Glucose [Mass/Vol] 103 mg/dL High 65-99 [facility] Comment on above: Performed By: #### B SHERLYN RON, 48114-8, 44526-2 #### [facility] ([id number]) [address] [place] [address] 31806 Potassium [Moles/Vol] 3.7 mmol/L Normal 3.5-5.0 [facility] Comment on above: Performed By: #### B SHERLYN RON, 33208-0, 67820-8 #### [facility] ([id number]) [address] [place] [address]160 Sodium [Moles/Vol] 134 mmol/L Normal 134-146 [facility] Comment on above: Performed By: #### B MP, CBCA, 39692-0, 48358-5 #### [facility] ([id number]) [address] [place] [address] 04631 Urea nitrogen [Mass/Vol] 10 mg/dL Normal 5-23 [facility] Comment on above: Performed By: #### B MP, CBCA, 23774-2, 82600-5 #### [facility] ([id number]) [address] [place] [address] 62597 CBC AND AUTO DIFFon 06-30- 24 ABSOLUTE BASOPHIL 0.0 X10E9/L Normal 0.0-0.2 [facility] Comment on above: Performed By: #### B MP, CBCA, 07101-8, 45247-1 #### [facility] ([id number]) [address] [place] [address] 34197 ABSOLUTE NEUTROPHIL 2.6 X10E9/L Normal 1.5-6.6 [facility] Comment on above: Performed By: #### B MP, CBCA, 36694-9, 62512-3 #### [facility] ([id number]) [address] [place] [address] 16411 Basophils/100 WBC (Bld) 0.6 % Normal [facility] Comment on above: Performed By: #### B MP, CBCA, 59963-8, 96456-8 #### [facility] ([id number]) [address] [place] [address] 18989 Eosinophils (Bld) [#/Vol] 0.1 10*3/uL Normal 0.0-0.4 [facility] Comment on above: Performed By: #### B MP, CBCA, 09349-9, 42972-5 #### [facility] ([id number]) [address] [place] [address] 40587 Eosinophils/100 WBC (Bld) 2.7 % Normal [facility] Comment on above: Performed By: #### B MP, CBCA, 30161-7, 48493-7 #### [facility] ([id number]) [address] [place] [address] 18109 Erythrocyte distribution width (RBC) [Ratio] 13.3 % Normal 11.5-15.0 [facility] Comment on above: Performed By: #### B ASAF, CBCA, 81612-8, 90290-6 #### [facility] ([id number]) [address] [place] [address] 53819 Hematocrit (Bld) [Volume fraction] 41.2 % Normal 39-49 [facility] Comment on above: Performed By: #### B ASAF, CBCA, 48581-2, 95075-1 #### [facility] ([id number]) [address] [place] [address] 79087 Hemoglobin (Bld) [Mass/Vol] 14.3 g/dL Normal 13.0-17.0 [facility] Comment on above: Performed By: #### B ASAF, CBCA, 72720-2, 47428-3 #### [facility] ([id number]) [address] [place] [address] 50691 Lymphocytes (Bld) [#/Vol] 1.4 10*3/uL Normal 1.0-3.5 [facility] Comment on above: Performed By: #### B MP, CBCA, 34288-2, 44309-2 #### [facility] ([id number]) [address] [place] [address] 54262 Lymphocytes/100 WBC (Bld) 30.6 % Normal [facility] Comment on above: Performed By: #### B MP, CBCA, 17638-5, 72606-8 #### [facility] ([id number]) [address] [place] [address] 63731 MCH (RBC) [Entitic mass] 29.7 pg Normal 27-34 [facility] Comment on above: Performed By: #### B MP, CBCA, 25004-4, 70041-5 #### [facility] ([id number]) [address] [place] [address] 89520 MCHC (RBC) [Mass/Vol] 34.7 g/dL Normal 32-36 [facility] Comment on above: Performed By: #### B MP, CBCA, 44294-5, 29532-8 #### [facility] ([id number]) [address] [place] [address] 63119 MCV (RBC) [Entitic vol] 86 fL Normal 80-100 [facility] Comment on above: Performed By: #### B MP, CBCA, 83633-7, 52490-4 #### [facility] ([id number]) [address] [place] [address] 45517 Monocytes (Bld) [#/Vol] 0.6 10*3/uL Normal 0-0.9 [facility] Comment on above: Performed By: #### B MP, CBCA, 43484-9, 06595-8 #### [facility] ([id number]) [address] [place] [address] 72720 Monocytes/100 WBC (Bld) 11.8 % Normal [facility] Comment on above: Performed By: #### B MP, CBCA, 36726-1, 98014-7 #### [facility] ([id number]) [address] [place] [address] 88561 Neutrophils/100 WBC (Bld) 54.3 % Normal [facility] Comment on above: Performed By: #### B MP, CBCA, 04736-9, 43743-6 #### [facility] ([id number]) [address] [place] [address] 59273 Platelet mean volume (Bld) [Entitic vol] 9.1 fL Normal 7-12 [facility] Comment on above: Performed By: #### B MP, CBCA, 35680-2, 18190-1 #### [facility] ([id number]) [address] [place] [address] 19465 Platelets (Bld) [#/Vol] 236 10*3/uL Normal 150-450 [facility] Comment on above: Performed By: #### B MP, CBCA, 90067-5, 03733-4 #### [facility] ([id number]) [address] [place] [address] 05355 RBC COUNT 4.82 X10E12/L Normal 4.10-5.70 [facility] Comment on above: Performed By: #### B MP, CBCA, 98546-4, 23605-6 #### [facility] ([id number]) [address] [place] [address] 59672 WBC (Bld) [#/Vol] 4.7 10*3/uL Normal 4.0-11.0 [facility] Comment on above: Performed By: #### B MP, CBCA, 86128-0, 32967-2 #### [facility] ([id number]) [address] [place] [address] 30280 Fibrin D-dimer DDU (PPP) [Ma ss/Vol]on 06-30-2023 D DIMER <150 Normal <255 [facility] Comment on above: Result Comment: Results <255 ng/mL DDU: The presence of a VTE can safely be excluded with a negative D-Dimer result and [place] score. A negative result doesn't exclude the possibility of DIC. The test be repeated along with other diagnostic tests if the patient's symptoms persist or worsen. [email or web address] Performed By: #### B MARY RONA, 51313-5, 57133-5 #### [facility] ([id number]) [address] [place] [address] 13443 TROPONIN Ion 06-30-2023 Troponin I.cardiac [Mass/Vol] ng/mL Normal 0.00-0.04 [facility] Comment on above: Performed By: #### B MARY RONA, 91610-7, 61331-3 #### [facility] ([id number]) [address] [place] [address] 19711 XR CHEST 2 VWSon 06-30-2023 XR CHEST 2 VWS XR CHEST 2 VWS XR CHEST 2 VWS INDICATION: right sided chest pain. Chest pain FINDINGS: Cardiac silhouette is normal in size. Trachea midline. No focal pulmonary consolidation. No pleural effusion. No pneumothorax. IMPRESSION: 1. No acute findings. Finalized by Dwaine Sharpe MD on 06/30/2023 5:11 AM Normal [facility] Miscellaneouson 06-22-2023 Miscellaneous [id number] 1121 [id number]#1.00OTG TIFF [facility] Office/Clinic Noteon 024 Miscellaneous [id number] 9411 [id number]#1.00OT GTIFF [facility] Office/Clinic Note [id number]#1.00OT GTIFF [facility] Alanine aminotransferase [En zymatic activity/volume] in Serum or PlasmaOrdered By: Lewis Mirza on 05-19-2023 ALT [Catalytic activity/Vol] 56 U/L [facility] 7-52 [facility] Comment on above: Performed By: #### M ITOM2, L-K MICRO, ALPHA PHEN, HEMOCHROM, CERULOP, TENA, IGG, SMAB #### [facility] , #### PARVEEN, TSH3 #### [place] [address] [place] Albumin [Mass/volume] in Ser um or Plasma by Bromocresol green (BCG) dye binding methoOrdered By: Lewis Mirza on 05-19-2023 Albumin BCG dye [Mass/Vol] 4.4 g/dL 3.5-5.7 [facility] Alkaline phosphatase [Enzyma tic activity/volume] in Serum or PlasmaOrdered By: Lewis Mirza on 05-19-2023 ALP [Catalytic activity/Vol] 58 U/L Normal 34-104 [facility] Comment on above: Performed By: #### M ITOM2, L-K MICRO, ALPHA PHEN, HEMOCHROM, CERULOP, TENA, IGG, SMAB #### [facility] , #### PARVEEN, TSH3 #### [address] Anti-Centromere B Antibodies on 05-19-2023 Anti-Centromere B Antibodies <0.2 Normal 0.0-0.9 [facility] Comment on above: Result Comment: Perf ormed at: - [facility] [place] [id number] Forging Engineer: Zechariah Paula PhD, Phone: [phone] Performed By: #### M ITOM2, L-K MICRO, ALPHA PHEN, HEMOCHROM, CERULOP, TENA, IGG, SMAB #### [facility] , #### PARVEEN, TSH3 #### [place] [address] [place] Anti-RNPon 05-19-2023 Anti-ELECTRIC ACCOUNTING MACHINE OPERATOR 0.6 Normal 0.0-0.9 [facility] Comment on above: Performed By: #### M ITOM2, L-K MICRO, ALPHA PHEN, HEMOCHROM, CERULOP, TENA, IGG, SMAB #### [facility] , #### PARVEEN, TSH3 #### [place] [address] [place] Anti-Newberry Antibodieson Anti-Newberry Antibodies <0.2 Normal 0.0-0.9 [facility] Comment on above: Performed By: #### M ITOM2, L-K MICRO, ALPHA PHEN, HEMOCHROM, CERULOP, TENA, IGG, SMAB #### [facility] , #### PARVEEN, TSH3 #### [address] Anti-dsDNA(DBL)Abon 05-19-19 24 Anti-dsDNA(DBL)Ab 3 Normal 0-9 [facility] Comment on above: Result Comment: Nega tive <5 Equivocal 5 - 9 Positive >9 Performed By: #### M ITOM2, L-K MICRO, ALPHA PHEN, HEMOCHROM, CERULOP, TENA, IGG, SMAB #### [facility] , #### PARVEEN, TSH3 #### [address] Aspartate aminotransferase [ Enzymatic activity/volume] in Serum or PlasmaOrdered By: Lewis Mizra on 05-19-2023 AST [Catalytic activity/Vol] 30 U/L Normal 13-39 [facility] Comment on above: Performed By: #### M ITOM2, L-K MICRO, ALPHA PHEN, HEMOCHROM, CERULOP, TENA, IGG, SMAB #### [facility] , #### PARVEEN, TSH3 #### [address] Automated basophil %Ordered By: Lewis Mirza on 05-19-2023 Basophils/100 WBC (Bld) 0.7 % Normal . [facility] Comment on above: Performed By: #### M ITOM2, L-K MICRO, ALPHA PHEN, HEMOCHROM, CERULOP, TENA, IGG, SMAB #### [facility] , #### PARVEEN, TSH3 #### [address] Automated basophil countOrde red By: Lewis Mirza on 05-19-2023 Basophils (Bld) [#/Vol] 0.0 10*3/uL Normal 0.0-0.2 [facility] Comment on above: Performed By: #### M ITOM2, L-K MICRO, ALPHA PHEN, HEMOCHROM, CERULOP, TENA, IGG, SMAB #### [facility] , #### PARVENE, TSH3 #### [address] Automated blood monocyte cou ntOrdered By: Lewis Mirza on 05-19-2023 Monocytes (Bld) [#/Vol] 0.7 10*3/uL Normal 0.0-0.8 [facility] Comment on above: Performed By: #### M ITOM2, L-K MICRO, ALPHA PHEN, HEMOCHROM, CERULOP, TENA, IGG, SMAB #### [facility] , #### PARVEEN, TSH3 #### [address] Automated eosinophil %Ordere d By: Lewis Mirza on 05-19-2023 Eosinophils/100 WBC (Bld) 2.7 % Normal . [facility] Comment on above: Performed By: #### M ITOM2, L-K MICRO, ALPHA PHEN, HEMOCHROM, CERULOP, TENA, IGG, SMAB #### [facility] , #### PARVEEN, TSH3 #### [address] Automated eosinophil countOr dered By: Lewis Mirza on 05-19-2023 Eosinophils (Bld) [#/Vol] 0.2 10*3/uL Normal 0.0-0.45 [facility] Comment on above: Performed By: #### M ITOM2, L-K MICRO, ALPHA PHEN, HEMOCHROM, CERULOP, TENA, IGG, SMAB #### [facility] , #### PARVEEN, TSH3 #### [address] Automated erythrocytes count in urine sediment (number/area)Ordered By: Lewis Mirza on 05-19-2023 RBC Auto (Urine sed) [#/Area] 1-2 [HPF] 0-4 [facility] Automated leukocytes count i n urine sediment (number/area)Ordered By: Lewis Mirza on 05-19-2023 WBC Auto (Urine sed) [#/Area] None seen [HPF] 0-4 [facility] Automated monocyte %Ordered By: Lewis Mirza on 05-19-2023 Monocytes/100 WBC (Bld) 10.7 % Normal . [facility] Comment on above: Performed By: #### M ITOM2, L-K MICRO, ALPHA PHEN, HEMOCHROM, CERULOP, TENA, IGG, SMAB #### [facility] , #### PARVEEN, TSH3 #### [address] Automated neutrophil %Ordere d By: Lewis Mirza on 05-19-2023 Neutrophils/100 WBC (Bld) 53.4 % Normal . [facility] Comment on above: Performed By: #### M ITOM2, L-K MICRO, ALPHA PHEN, HEMOCHROM, CERULOP, TENA, IGG, SMAB #### [facility] , #### PARVEEN, TSH3 #### [facility] [address] [place] [address] Automated urine color determ inationOrdered By: Lewis Mirza on 05-19-2023 Color (U) Yellow Normal Yellow [facility] Comment on above: Order Comment: Reaso n for Exam Elevated LFTs Reason for Exam Fatigue Performed By: #### M ITOM2, L-K MICRO, ALPHA PHEN, HEMOCHROM, CERULOP, TENA, IGG, SMAB #### [facility] , #### PARVEEN, TSH3 #### [facility] [address] [place] [address] Bilirubin Test strip Ql (U)O rdered By: Lewis Mirza on 05-19-2023 Bilirubin Ql (U) Negative Negative [facility] Bilirubin.total [Mass/volume ] in Serum or PlasmaOrdered By: Lewis Mirza on 05-19-2023 Bilirubin [Mass/Vol] 0.8 mg/dL Normal 0.3-1.0 [facility] Comment on above: Performed By: #### M ITOM2, L-K MICRO, ALPHA PHEN, HEMOCHROM, CERULOP, TENA, IGG, SMAB #### [facility] , #### PARVEEN, TSH3 #### [facility] [address] [place] [address] [place] C reactive protein [Mass/vol ume] in Serum or PlasmaOrdered By: Lewis Mirza on 05-19-2023 CRP [Mass/Vol] < 0.5 mg/dL 0.0-0.5 [facility] C-Reactive Proteinon 024 CRP [Mass/Vol] mg/L Normal 0.0-0.[address] [facility] Comment on above: Performed By: #### M ITOM2, L-K MICRO, ALPHA PHEN, HEMOCHROM, CERULOP, TENA, IGG, SMAB #### [facility] , #### PARVEEN, TSH3 #### [facility] [address] [place] [address] [place] Calcium [Mass/volume] in Ser um or PlasmaOrdered By: Lewis Mirza on 05-19-2023 Calcium [Mass/Vol] 9.4 mg/dL Normal 8.6-10.3 [facility] Comment on above: Performed By: #### M ITOM2, L-K MICRO, ALPHA PHEN, HEMOCHROM, CERULOP, TENA, IGG, SMAB #### [facility] , #### PARVEEN, TSH3 #### [facility] [address] [place] [address] [place] Carbon dioxide, total [Moles /volume] in Serum or PlasmaOrdered By: Lewis Mirza on 05-19-2023 CO2 [Moles/Vol] 23.5 mmol/L Normal 21.0-31.0 [facility] Comment on above: Performed By: #### M ITOM2, L-K MICRO, ALPHA PHEN, HEMOCHROM, CERULOP, TENA, IGG, SMAB #### [facility] , #### PARVEEN, TSH3 #### [facility] [address] [place] [address] [place] Chloride [Moles/volume] in S saima or PlasmaOrdered By: Lewis Mirza on 05-19-2023 Chloride [Moles/Vol] 107 mmol/L Normal 98-107 [facility] Comment on above: Performed By: #### M ITOM2, L-K MICRO, ALPHA PHEN, HEMOCHROM, CERULOP, TENA, IGG, SMAB #### [facility] , #### PARVEEN, TSH3 #### [facility] [address] Complement C3on 05-19-2023 Complement C3 161 mg/dL Normal 82-167 [facility] Comment on above: Result Comment: Perf ormed at: - [facility] [address] [id number] Forging Engineer: Zechariah Paula PhD, Phone: [phone] Performed By: #### M ITOM2, L-K MICRO, ALPHA PHEN, HEMOCHROM, CERULOP, TENA, IGG, SMAB #### [facility] , #### PARVEEN, TSH3 #### [address] Complement C4on 05-19-2023 Complement C4 24 mg/dL Normal 12-38 [facility] Comment on above: Performed By: #### M ITOM2, L-K MICRO, ALPHA PHEN, HEMOCHROM, CERULOP, TENA, IGG, SMAB #### [facility] , #### PARVEEN, TSH3 #### [address] Complement Total (CH50)on Complement Total (CH50) 49 Normal >41 [facility] Comment on above: [...] out of range values. Performed at: - [address] [id number] Forging Engineer: Zechariah Paula PhD, Phone: [phone] PERFORMED BY: [place] [address] PATHOLOGIST MANAGED CARE PROVIDER LISA COOLEY M.D. Performed By: #### M ITOM2, L-K MICRO, ALPHA PHEN, HEMOCHROM, CERULOP, TENA, IGG, SMAB #### [facility] , #### PARVEEN, TSH3 #### [address] Complete Blood Count Auto Di ffon 05-19-2023 Mean Corpuscular HGB Conc 34.1 g/dL Normal 32.5-35.6 [facility] Comment on above: Performed By: #### M ITOM2, L-K MICRO, ALPHA PHEN, HEMOCHROM, CERULOP, TENA, IGG, SMAB #### [facility] , #### PARVEEN, TSH3 #### [address] NRBC% 0.2 /100{WBC} Normal 0-0.5 [facility] Comment on above: Performed By: #### M ITOM2, L-K MICRO, ALPHA PHEN, HEMOCHROM, CERULOP, TENA, IGG, SMAB #### [facility] , #### PARVEEN, TSH3 #### [address] Comprehensive Metabolic Pane darnell 05-19-2023 Albumin [Mass/Vol] 4.4 g/dL Normal 3.5-5.7 [facility] Comment on above: Performed By: #### M ITOM2, L-K MICRO, ALPHA PHEN, HEMOCHROM, CERULOP, TENA, IGG, SMAB #### [facility] , #### PARVEEN, TSH3 #### [place] [address] [place] GFR/1.73 sq M.predicted MDRD (S/P/Bld) [Vol rate/Area] mL/min/{1.73_m2} Normal [facility] Comment on above: Performed By: #### M ITOM2, L-K MICRO, ALPHA PHEN, HEMOCHROM, CERULOP, TENA, IGG, SMAB #### [facility] , #### PARVEEN, TSH3 #### [address] Creatine kinase [Enzymatic a ctivity/volume] in Serum or PlasmaOrdered By: Lewis Mirza on 05-19-2023 CK [Catalytic activity/Vol] 112 U/L Normal 30-223 [facility] Comment on above: Result Comment: PERF ORMED BY: [place] [address] PATHOLOGIST MANAGED CARE PROVIDER LISA COLOEY M.D. Performed By: #### M ITOM2, L-K MICRO, ALPHA PHEN, HEMOCHROM, CERULOP, TENA, IGG, SMAB #### [facility] , #### PARVEEN, TSH3 #### [place] [address] [place] Creatinine [Mass/volume] in Serum or PlasmaOrdered By: Lewis Mirza on 05-19-2023 Creatinine [Mass/Vol] 0.78 mg/dL Normal 0.70-1.30 [facility] Comment on above: Performed By: #### M ITOM2, L-K MICRO, ALPHA PHEN, HEMOCHROM, CERULOP, TENA, IGG, SMAB #### [facility] , #### PARVEEN, TSH3 #### [place] [address] [place] DNA double strand Ab [Units/ volume] in SerumOrdered By: Lewis Mirza on 05-19-2023 DNA double strand Ab Qn (S) 3 [IU]/mL 0-9 [facility] Comment on above: Negative <5 Equivoca l 5 - 9 Positive >9 Dipstick and Microscopicon 0 05-19-2023 Appearance (U) Clear Normal Clear [facility] Comment on above: Order Comment: Reaso n for Exam Elevated LFTs Reason for Exam Fatigue Performed By: #### M ITOM2, L-K MICRO, ALPHA PHEN, HEMOCHROM, CERULOP, TENA, IGG, SMAB #### [facility] , #### PARVEEN, TSH3 #### [address] Bacteria,Urine None Seen Normal None Seen [facility] Comment on above: Order Comment: Reaso n for Exam Elevated LFTs Reason for Exam Fatigue Performed By: #### M ITOM2, L-K MICRO, ALPHA PHEN, HEMOCHROM, CERULOP, TENA, IGG, SMAB #### [facility] , #### PARVEEN, TSH3 #### [address] Bilirubin,Urine Negative Normal Negative [facility] Comment on above: Order Comment: Reaso n for Exam Elevated LFTs Reason for Exam Fatigue Performed By: #### M ITOM2, L-K MICRO, ALPHA PHEN, HEMOCHROM, CERULOP, TENA, IGG, SMAB #### [facility] , #### PARVEEN, TSH3 #### [address] Glucose Ql (U) Normal Normal Normal [facility] Comment on above: Order Comment: Reaso n for Exam Elevated LFTs Reason for Exam Fatigue Performed By: #### M ITOM2, L-K MICRO, ALPHA PHEN, HEMOCHROM, CERULOP, TENA, IGG, SMAB #### [facility] , #### PARVEEN, TSH3 #### [facility] [address] Hyaline Casts,Urine None Seen Normal 0-8 [facility] Comment on above: Order Comment: Reaso n for Exam Elevated LFTs Reason for Exam Fatigue Result Comment: PERF ORMED BY: [place] [address] PATHOLOGIST MANAGED CARE PROVIDER LISA COOLEY M.D. Performed By: #### M ITOM2, L-K MICRO, ALPHA PHEN, HEMOCHROM, CERULOP, TENA, IGG, SMAB #### [facility] , #### PARVEEN, TSH3 #### [address] Ketones Ql (U) Negative Normal Negative [facility] Comment on above: Order Comment: Reaso n for Exam Elevated LFTs Reason for Exam Fatigue Performed By: #### M ITOM2, L-K MICRO, ALPHA PHEN, HEMOCHROM, CERULOP, TENA, IGG, SMAB #### [facility] , #### PARVEEN, TSH3 #### [address] Leukocyte esterase Test strip Ql (U) Negative Normal Negative [facility] Comment on above: Order Comment: Reaso n for Exam Elevated LFTs Reason for Exam Fatigue Performed By: #### M ITOM2, L-K MICRO, ALPHA PHEN, HEMOCHROM, CERULOP, TENA, IGG, SMAB #### [facility] , #### PARVEEN, TSH3 #### [address] Nitrite,Urine Negative Normal Negative [facility] Comment on above: Order Comment: Reaso n for Exam Elevated LFTs Reason for Exam Fatigue Performed By: #### M ITOM2, L-K MICRO, ALPHA PHEN, HEMOCHROM, CERULOP, TENA, IGG, SMAB #### [facility] , #### PARVEEN, TSH3 #### [address] Occult Blood,Urine Negative Normal Negative [facility] Comment on above: Order Comment: Reaso n for Exam Elevated LFTs Reason for Exam Fatigue Performed By: #### M ITOM2, L-K MICRO, ALPHA PHEN, HEMOCHROM, CERULOP, TENA, IGG, SMAB #### [facility] , #### PARVEEN, TSH3 #### [address] Protein,Urine Negative Normal Negative [facility] Comment on above: Order Comment: Reaso n for Exam Elevated LFTs Reason for Exam Fatigue Performed By: #### M ITOM2, L-K MICRO, ALPHA PHEN, HEMOCHROM, CERULOP, TENA, IGG, SMAB #### [facility] , #### PARVEEN, TSH3 #### [address] RBC,Urine 1-2 Normal 0-4 [facility] Comment on above: Order Comment: Reaso n for Exam Elevated LFTs Reason for Exam Fatigue Performed By: #### M ITOM2, L-K MICRO, ALPHA PHEN, HEMOCHROM, CERULOP, TENA, IGG, SMAB #### [facility] , #### PARVEEN, TSH3 #### [address] Specificy [place],Urine 1.023 Normal 1.00 1-1.03 0 [facility] Comment on above: Order Comment: Reaso n for Exam Elevated LFTs Reason for Exam Fatigue Performed By: #### M ITOM2, L-K MICRO, ALPHA PHEN, HEMOCHROM, CERULOP, TENA, IGG, SMAB #### [facility] , #### PARVEEN, TSH3 #### [address] Squamous Epithelial Cell,Urine None Seen Normal 0-2 [facility] Comment on above: Order Comment: Reaso n for Exam Elevated LFTs Reason for Exam Fatigue Performed By: #### M ITOM2, L-K MICRO, ALPHA PHEN, HEMOCHROM, CERULOP, TENA, IGG, SMAB #### [facility] , #### PARVEEN, TSH3 #### [address] Urobilinogen,Urine Normal Normal Normal [facility] Comment on above: Order Comment: Reaso n for Exam Elevated LFTs Reason for Exam Fatigue Performed By: #### M ITOM2, L-K MICRO, ALPHA PHEN, HEMOCHROM, CERULOP, TENA, IGG, SMAB #### [facility] , #### PARVEEN, TSH3 #### [address] WBC,Urine None Seen Normal 0-4 [facility] Comment on above: Order Comment: Reaso n for Exam Elevated LFTs Reason for Exam Fatigue Performed By: #### M ITOM2, L-K MICRO, ALPHA PHEN, HEMOCHROM, CERULOP, TENA, IGG, SMAB #### [facility] , #### PARVEEN, TSH3 #### [address] Erythrocyte Sedimentation Ra andra 05-19-2023 ESR (Bld) [Velocity] 14 mm/h Normal 0-14 [facility] Comment on above: Result Comment: PERF ORMED BY: [place] [address] PATHOLOGIST MANAGED CARE PROVIDER ILSA COOLEY M.D. Performed By: #### M ITOM2, L-K MICRO, ALPHA PHEN, HEMOCHROM, CERULOP, TENA, IGG, SMAB #### [facility] , #### PARVEEN, TSH3 #### [address] Erythrocyte distribution wid th [Ratio] by Automated countOrdered By: Lewis Mirza on 05-19-2023 Erythrocyte distribution width (RBC) [Ratio] 13.0 % Normal 12.0-14.8 [facility] Comment on above: Performed By: #### M ITOM2, L-K MICRO, ALPHA PHEN, HEMOCHROM, CERULOP, TENA, IGG, SMAB #### [facility] , #### PARVEEN, TSH3 #### [address] Erythrocyte sedimentation ra te by Photometric methodOrdered By: Lewis Mirza on 05-19-2023 ESR Photometric method (Bld) [Velocity] 14 mm/hr 0-14 [facility] Erythrocytes [#/volume] in B lood by Automated countOrdered By: Lewis Mirza on 05-19-2023 RBC (Bld) [#/Vol] 4.85 10*6/uL Normal 3.90-5.60 [facility] Comment on above: Performed By: #### M ITOM2, L-K MICRO, ALPHA PHEN, HEMOCHROM, CERULOP, TENA, IGG, SMAB #### [facility] , #### PARVEEN, TSH3 #### [facility] [address] Fibrillarin Ab [Presence] in SerumOrdered By: Lewis Mirza on 05-19-2023 Fibrillarin Ab Ql (S) Negative Negative [facility] Comment on above: This test was develo ped and its performance characteristicsdetermined by [employer]. It has not been cleared orapproved by the Food and Drug Administration.Performed at: [facility] [employer] [address] [id number] Director: Issa Thao MD, Phone: [phone] Glucose [Mass/volume] in Ser um or PlasmaOrdered By: Lewis Mirza on 05-19-2023 Glucose [Mass/Vol] 98 mg/dL Normal 70-100 [facility] Comment on above: ADA recommended refe rence rangeRandom Glucose Reference Range is dependent on time and content of last meal. Glucose of more than 200 mg/dL in a nonstressed, ambulatory subject supports the diagnosis of Diabetes Mellitus. Result Comment: [place] Glucose Reference Range is dependent on time and content of last meal. Glucose of more than 200 mg/dL in a nonstressed, ambulatory subject supports the diagnosis of Diabetes Mellitus. ADA recommended reference range Performed By: #### M ITOM2, L-K MICRO, ALPHA PHEN, HEMOCHROM, CERULOP, TENA, IGG, SMAB #### [facility] , #### PARVEEN, TSH3 #### [facility] [address] [place] [address] [place] Hematocrit [Volume Fraction] of Blood by Automated countOrdered By: Lewis Mirza on 05-19-2023 Hematocrit (Bld) [Volume fraction] 41.7 % Normal 38.8-50.0 [facility] Comment on above: Performed By: #### M ITOM2, L-K MICRO, ALPHA PHEN, HEMOCHROM, CERULOP, TENA, IGG, SMAB #### [facility] , #### PARVEEN, TSH3 #### [facility] [address] Hemoglobin [Mass/volume] in BloodOrdered By: Lewis Mirza on 05-19-2023 Hemoglobin (Bld) [Mass/Vol] 14.2 g/dL Normal 13.0-17.0 [facility] Comment on above: Performed By: #### M ITOM2, L-K MICRO, ALPHA PHEN, HEMOCHROM, CERULOP, TENA, IGG, SMAB #### [facility] , #### PARVEEN, TSH3 #### [address] Ketones Auto test strip (U) [Mass/Vol]Ordered By: Lewis Mirza on 05-19-2023 Ketones (U) [Mass/Vol] Negative Negative [facility] - Serology - non- microOrdered By: Lewis Mirza on 05-19-2023 SCL-70 extractable nuclear Ab IA Qn (S) <0.2 AI 0.0-0.9 [facility] - UrinalysisOrder ed By: Lewis Mirza on 05-19-2023 Hyaline casts LM Ql (Urine sed) None seen [LPF] 0-8 [facility] Leukocytes [#/volume] correc sirisha for nucleated erythrocytes in Blood by Automated counOrdered By: Lewis Mirza on 05-19-2023 WBC corrected for nucl RBC Auto (Bld) [#/Vol] 6.4 10*3/uL 4.1-10.5 [facility] Leukocytes [#/volume] in Blo od by Automated countOrdered By: Lewis Mirza on 05-19-2023 WBC (Bld) [#/Vol] 6.4 10*3/uL Normal 4.1-10.5 [facility] Comment on above: Performed By: #### M ITOM2, L-K MICRO, ALPHA PHEN, HEMOCHROM, CERULOP, TENA, IGG, SMAB #### [facility] , #### PARVEEN, TSH3 #### [address] Lymphocytes [#/volume] in Bl ood by Automated countOrdered By: Lewis Mirza on 05-19-2023 Lymphocytes (Bld) [#/Vol] 2.1 10*3/uL Normal 1.00-4.8 [facility] Comment on above: Performed By: #### M ITOM2, L-K MICRO, ALPHA PHEN, HEMOCHROM, CERULOP, TENA, IGG, SMAB #### [facility] , #### PARVEEN, TSH3 #### [place] [address] [place] Lymphocytes/100 leukocytes i n Blood by Automated countOrdered By: Lewis Mirza on 05-19-2023 Lymphocytes/100 WBC (Bld) 32.5 % Normal . [facility] Comment on above: Performed By: #### M ITOM2, L-K MICRO, ALPHA PHEN, HEMOCHROM, CERULOP, TENA, IGG, SMAB #### [facility] , #### PARVEEN, TSH3 #### [place] [address] [place] MCH [Entitic mass] by Automa sirisha countOrdered By: Lewis Mirza on 05-19-2023 MCH (RBC) [Entitic mass] 29.3 pg Normal 27.5-35.2 [facility] Comment on above: Performed By: #### M ITOM2, L-K MICRO, ALPHA PHEN, HEMOCHROM, CERULOP, TENA, IGG, SMAB #### [facility] , #### PARVEEN, TSH3 #### [facility] [address] MCHC Auto (RBC) [Mass/Vol]Or dered By: Lewis Mirza on 05-19-2023 MCHC (RBC) [Mass/Vol] 34.1 g/dL 32.5-35.6 [facility] MCV [Entitic volume] by Auto mated countOrdered By: Lewis Mirza on 05-19-2023 MCV (RBC) [Entitic vol] 86.0 fL Normal 83.5-101 [facility] Comment on above: Performed By: #### M ITOM2, L-K MICRO, ALPHA PHEN, HEMOCHROM, CERULOP, TENA, IGG, SMAB #### [facility] , #### PARVEEN, TSH3 #### [facility] [address] [place] [address] Neutrophils [#/volume] in Bl ood by Automated countOrdered By: Lewis Mirza on 05-19-2023 Neutrophils (Bld) [#/Vol] 3.4 10*3/uL Normal 1.8-7.7 [facility] Comment on above: Performed By: #### M ITOM2, L-K MICRO, ALPHA PHEN, HEMOCHROM, CERULOP, TENA, IGG, SMAB #### [facility] , #### PARVEEN, TSH3 #### [address] Nitrite Test strip Ql (U)Ord ered By: Lewis Mirza on 05-19-2023 Nitrite Ql (U) Negative Negative [facility] No Panel InformationOrdered By: Lewis Mirza on 05-19-2023 Estimated GFR (CKD-EPI) > 60.0 mL/Min [facility] Creatinine Clearance (Chem N/A [facility] ELECTRIC ACCOUNTING MACHINE OPERATOR Antibody 0.6 AI 0.0-0.9 [facility] Serology Comments N/A [facility] Total Complement (CH50) 49 U/mL >41 [facility] Comment on above: Age Male Female [...] determine out of range values.Performed at: - [address] [id number] Director: Zechariah Paula PhD, Phone: [phone] Nucleated erythrocytes [Pres ence] in Blood by Automated countOrdered By: Lewis Mirza on 05-19-2023 Nucleated RBC Auto Ql (Bld) 0.2 /100{WBC} 0-0.5 [facility] PM-SCL Antibodieson 05-19-19 24 ANDREE PM-Scl Antibody <20 Normal <20 [facility] Comment on above: Result Comment: This test was developed and its performance characteristics determined by [facility] [employer]. It has not been cleared or approved by the Food and Drug Administration. Negative: <20 Weak Positive: 20 - 39 Moderate Positive: 40 - 80 Strong Positive: >80 Performed at: [employer] [address] [place], [place] [id number] Forging Engineer: Issa Thao MD, Phone: [phone] Performed By: #### M ITOM2, L-K MICRO, ALPHA PHEN, HEMOCHROM, CERULOP, TENA, IGG, SMAB #### [facility] , #### PARVEEN, TSH3 #### [address] PM-Scl antibody assay by imm unodiffusionOrdered By: Lewis Mirza on 05-19-2023 PM-SCL extractable nuclear Ab Immune diff (S) [Mass/Vol] <20 Units <20 [facility] Comment on above: This test was develo ped and its performance characteristicsdetermined by [facility]. It has not been cleared orapproved by the Food and Drug Administration. Negative: <20 Weak Positive: 20 - 39 Moderate Positive: 40 - 80 Strong Positive: >80Performed at: [employer] [facility] [employer] [id number] [place], [place] [id number] Director: Issa Thao MD, Phone: [phone] Platelet mean volume [Entiti c volume] in Blood by Automated countOrdered By: Lewis Mirza on 05-19-2023 Platelet mean volume (Bld) [Entitic vol] 9.2 fL Normal 6.6-10.1 [facility] Comment on above: Performed By: #### M ITOM2, L-K MICRO, ALPHA PHEN, HEMOCHROM, CERULOP, TENA, IGG, SMAB #### [facility] , #### PARVEEN, TSH3 #### [address] Platelets [#/volume] in Bloo d by Automated countOrdered By: Lewis Mirza on 05-19-2023 Platelets (Bld) [#/Vol] 254 10*3/uL Normal 150-450 [facility] Comment on above: Performed By: #### M ITOM2, L-K MICRO, ALPHA PHEN, HEMOCHROM, CERULOP, TENA, IGG, SMAB #### [facility] , #### PARVEEN, TSH3 #### [address] Potassium [Moles/volume] in Serum or PlasmaOrdered By: Lewis Mirza on 05-19-2023 Potassium [Moles/Vol] 3.8 mmol/L Normal 3.5-5.1 [facility] Comment on above: Performed By: #### M ITOM2, L-K MICRO, ALPHA PHEN, HEMOCHROM, CERULOP, TENA, IGG, SMAB #### [facility] , #### PARVEEN, TSH3 #### [address] Protein Auto test strip (U) [Mass/Vol]Ordered By: Lewis Mirza on 05-19-2023 Protein (U) [Mass/Vol] Negative Negative [facility] Protein [Mass/volume] in Ser um or PlasmaOrdered By: Lewis Mirza on 05-19-2023 Protein [Mass/Vol] 7.1 g/dL Normal 6.4-8.9 [facility] Comment on above: Performed By: #### M ITOM2, L-K MICRO, ALPHA PHEN, HEMOCHROM, CERULOP, TENA, IGG, SMAB #### [facility] , #### PARVEEN, TSH3 #### [facility] [address] [place] [address] RNA Polymerase IIion 024 RNA Polymerase IIi <20 Normal <20 [facility] Comment on above: Result Comment: Nega tive: <20 Weak Positive: 20 - 39 Moderate Positive: 40 - 80 Strong Positive: >80 Performed at: [employer] [address] [place], [place] [id number] Forging Engineer: Issa Thao MD, Phone: [phone] PERFORMED BY: [place] [address] PATHOLOGIST MANAGED CARE PROVIDER LISA COOLEY M.D. Performed By: #### M ITOM2, L-K MICRO, ALPHA PHEN, HEMOCHROM, CERULOP, TENA, IGG, SMAB #### [facility] , #### PARVEEN, TSH3 #### [address] RNA polymerase III IgG Ab [U nits/volume] in Serum or Plasma by ImmunoassayOrdered By: Lewis Mirza on 05-19-2023 RNA polymerase III IgG IA Qn <20 Units <20 [facility] Comment on above: Negative: <20 Weak P ositive: 20 - 39 Moderate Positive: 40 - 80 Strong Positive: >80Performed at: [employer] [facility] [employer] [id number] [place], [place] [id number] Director: Issa Thao MD, Phone: [phone] Scleroderma 70 Antibodieson 05-19-2023 Scleroderma 70 Antibodies <0.2 Normal 0.0-0.9 [facility] Comment on above: Performed By: #### M ITOM2, L-K MICRO, ALPHA PHEN, HEMOCHROM, CERULOP, TENA, IGG, SMAB #### [facility] , #### PARVEEN, TSH3 #### [facility] [address] [place] [address] Serum Newberry extractable nucl ear antigen (ANDREE) antibody assay (units/volume)Ordered By: Lewis Mirza on 05-19-2023 Newberry extractable nuclear Ab Qn (S) <0.2 AI 0.0-0.9 [facility] Serum centromere protein B a ntibody assay (units/volume)Ordered By: Lewis Mirza on 05-19-2023 Centromere protein B Ab Qn (S) <0.2 AI 0.0-0.9 [facility] Comment on above: Performed at: [address] [id number] Director: Zechariah Paula PhD, Phone: [phone] Serum globulin measurement b y calculation (mass/volume)Ordered By: Lewis Mirza on 05-19-2023 Globulin (S) [Mass/Vol] 2.7 g/dL Normal [facility] Comment on above: Performed By: #### M ITOM2, L-K MICRO, ALPHA PHEN, HEMOCHROM, CERULOP, TENA, IGG, SMAB #### [facility] , #### PARVEEN, TSH3 #### [address] Serum or plasma albumin/glob ulin mass ratioOrdered By: Lewis Mirza on 05-19-2023 Albumin/Globulin [Mass ratio] 1.6 {ratio} Normal [facility] Comment on above: Performed By: #### M ITOM2, L-K MICRO, ALPHA PHEN, HEMOCHROM, CERULOP, TENA, IGG, SMAB #### [facility] , #### PARVEEN, TSH3 #### [address] Serum or plasma anion gap de terminationOrdered By: Lewis Mirza on 05-19-2023 Anion gap [Moles/Vol] 14.3 mmol/L Normal 6.0-15.0 [facility] Comment on above: Performed By: #### M ITOM2, L-K MICRO, ALPHA PHEN, HEMOCHROM, CERULOP, TENA, IGG, SMAB #### [facility] , #### PARVEEN, TSH3 #### [address] Serum or plasma complement C 3 measurement (mass/volume)Ordered By: Lewis Mirza on 05-19-2023 Complement C3 [Mass/Vol] 161 mg/dL 82-167 [facility] Comment on above: Performed at: [place] [id number] Director: Zechariah Paula PhD, Phone: [phone] Serum or plasma complement C 4 measurement (mass/volume)Ordered By: Lewis Mirza on 05-19-2023 Complement C4 [Mass/Vol] 24 mg/dL 12-38 [facility] Sodium [Moles/volume] in Ser um or PlasmaOrdered By: Lewis Mirza on 05-19-2023 Sodium [Moles/Vol] 141 mmol/L Normal 136-145 [facility] [facility] Comment on above: Performed By: #### M ITOM2, L-K MICRO, ALPHA PHEN, HEMOCHROM, CERULOP, TENA, IGG, SMAB #### [facility] , #### PARVEEN, TSH3 #### [address] Specific gravity Auto test s trip (U) [Rel density]Ordered By: Lewis Mirza on 05-19-2023 Specific gravity (U) [Rel density] 1.023 1.001-1.03 0 [facility] Squamous epithelial cells de tection in urine sediment by light microscopyOrdered By: Lewis Mirza on 05-19-2023 Epithelial cells.squamous LM Ql (Urine sed) None seen [HPF] 0-2 [facility] Th-To Ab [Units/volume] in S saima by Line blotOrdered By: Lewis Mirza on 05-19-2023 Th-To Ab Line blot Qn (S) Negative Negative [facility] Comment on above: This test was develo ped and its performance characteristicsdetermined by [facility]. It has not been cleared orapproved by the Food and Drug Administration.Performed at: [employer] [facility] [employer] [address] [place], [place] [id number] Director: Issa Thao MD, Phone: [phone] Th/To Antibodyon 05-19-2023 Th/To Antibody Negative Normal Negative [facility] Comment on above: Result Comment: This test was developed and its performance characteristics determined by [facility]. It has not been cleared or approved by the Food and Drug Administration. Performed at: [employer] [address] [place], [place] [id number] Forging Engineer: Issa Thao MD, Phone: [phone] Performed By: #### M ITOM2, L-K MICRO, ALPHA PHEN, HEMOCHROM, CERULOP, TENA, IGG, SMAB #### [facility] , #### PARVEEN, TSH3 #### [facility] [address] [place] [address] Thyrotropin [Units/volume] i n Serum or PlasmaOrdered By: Lewis Mirza on 05-19-2023 TSH Qn 1.01 m[IU]/L Normal 0.45-5.33 [facility] Comment on above: Result Comment: PERF ORMED BY: [place] [address] PATHOLOGIST MANAGED CARE PROVIDER LISA COOLEY M.D. Performed By: #### M ITOM2, L-K MICRO, ALPHA PHEN, HEMOCHROM, CERULOP, TENA, IGG, SMAB #### [facility] , #### PARVEEN, TSH3 #### [facility] [address] [place] [address] U3 Rnpon 05-19-2023 U3 Hotel Office Manager Negative Normal Negative [facility] Comment on above: Result Comment: This test was developed and its performance characteristics determined by [facility]. It has not been cleared or approved by the Food and Drug Administration. Performed at: [employer] [facility] [employer] [address] [place], [place] [id number] Forging Engineer: Issa Thao MD, Phone: [phone] PERFORMED BY: [place] [address] PATHOLOGIST MANAGED CARE PROVIDER LISA COOLEY M.D. Performed By: #### M ITOM2, L-K MICRO, ALPHA PHEN, HEMOCHROM, CERULOP, TENA, IGG, SMAB #### [facility] , #### PARVEEN, TSH3 #### [address] Urea nitrogen [Mass/volume] in Serum or PlasmaOrdered By: Lewis Mirza on 05-19-2023 Urea nitrogen [Mass/Vol] 10 mg/dL Normal 7-25 [facility] Comment on above: Performed By: #### M ITOM2, L-K MICRO, ALPHA PHEN, HEMOCHROM, CERULOP, TENA, IGG, SMAB #### [facility] , #### PARVEEN, TSH3 #### [facility] [address] [place] [address] Urine bacteria detection by automated methodOrdered By: Lewis Mirza on 05-19-2023 Bacteria Auto Ql (U) None seen None Seen [facility] Urine clarity by refractomet ry automatedOrdered By: Lewis Mirza on 05-19-2023 Clarity Refractometry automated (U) Clear Clear [facility] Urine glucose measurement by automated test strip (mass/volume)Ordered By: Lewis Mirza on 05-19-2023 Glucose Auto test strip (U) [Mass/Vol] Normal mg/dL Normal [facility] Urine hemoglobin detection b y automated test stripOrdered By: Lewis Mirza on 05-19-2023 Hemoglobin Auto test strip Ql (U) Negative Negative [facility] Urine leukocyte esterase det ection by automated test stripOrdered By: Lewis Mirza on 05-19-2023 Leukocyte esterase Auto test strip Ql (U) Negative Negative [facility] Urine pH measurement by auto mated test stripOrdered By: Lewis Mirza on 05-19-2023 pH (U) 5.5 [pH] Normal 5.0-9.0 [facility] Comment on above: Order Comment: Reaso n for Exam Elevated LFTs Reason for Exam Fatigue Performed By: #### M ITOM2, L-K MICRO, ALPHA PHEN, HEMOCHROM, CERULOP, TENA, IGG, SMAB #### [facility] , #### PARVEEN, TSH3 #### [address] Urobilinogen Auto test strip (U) [Mass/Vol]Ordered By: Lewis Mirza on 05-19-2023 Urobilinogen (U) [Mass/Vol] Normal mg/dL Normal [facility] XR knee BI 2Von 05-19-2023 XR knee BI 2V [facility] [address] [place] [address] XRay Report Signed Patient: Ta Duncan MR#: [id number] 0 : 2005 Acct:[id number] Age/Sex: 17 / M ADM Date: 05/19/23 Loc: ICXD Room: Type: [facility] Attending Dr: Lewis Mirza MD Copies to: Lewis Mirza MD Ordering Provider: Lewis Mirza MD Date of Service: 05/19/23 XR/XR knee BI 2V: PAIN ([id number]) XR/XR thoracic spine 3V*: PAIN THORACIC SPINE [...] Davila Jr. DAlexanderOAlexander05/19/2023 2:25 PM Dictation Location: [place] [address] Transcribed By: NIKITA 05/19/23 1425 Dictated By: Ki Davila Jr, 05/19/23 1424 Signed By: 05/19/23 1425 Normal [facility] Miscellaneouson 04-30-2023 Miscellaneous [id number]#1.00O TGTIFF Normal [facility] Outside Recordson 04-22-2023 Outside Records [id number]#1.00OTGT IFF Normal [facility] TENA Antinuclear Antibodieson 04-21-2023 Antinuclear Abs, IFA Positive Critically abnormal . [facility] Comment on above: Order Comment: Reaso n for Exam Elevated LFTs Result Comment: Nega tive <1:80 Borderline 1:80 Positive >1:80 Performed By: #### M ITOM2, L-K MICRO, ALPHA PHEN, HEMOCHROM, CERULOP, TENA, IGG, SMAB #### [facility] , #### PARVEEN, TSH3 #### [facility] [address] Homogeneous Pattern 1:160 High . [facility] Comment on above: Order Comment: Reaso n for Exam Elevated LFTs Result Comment: ICAP nomenclature: AC-1 Performed By: #### M ITOM2, L-K MICRO, ALPHA PHEN, HEMOCHROM, CERULOP, TENA, IGG, SMAB #### [facility] , #### PARVEEN, TSH3 #### [facility] [address] Note 1 Normal . [facility] Comment on above: Order Comment: Reaso n for Exam Elevated LFTs Result Comment: Nola slade Potential Disease Association Homogeneous Systemic Lupus Erythematosus, Drug Induced Systemic Lupus Erythematosus, Chronic Autoimmune hepatitis, Juvenile Idiopathic Arthritis Speckled Sjogren Syndrome, Systemic Lupus Erythematosus, Subacute Cutaneous Lupus, Lupus, Congenital Heart Block, Mixed Connective Tissue Disease, Scleroderma-diffuse, Scleroderma-Autoimmune Myositis Overlap Syndrome, Systemic Lupus Gfpqbljzhdolq-Zmhsxcofukk-Ubopprzjzg Myositis Overlap Syndrome, Systemic Autoimmune Rheumatic Disease, [...] Cytopenias, Linear Scleroderma, Antiphospholipid Syndrome Performed at: [facility] [place] [id number] [place], [place] [id number] Forging Engineer: Zechariah Paula PhD, Phone: [phone] Performed By: #### M ITOM2, L-K MICRO, ALPHA PHEN, HEMOCHROM, CERULOP, TENA, IGG, SMAB #### [facility] , #### PARVEEN, TSH3 #### [address] Actin smooth muscle IgG Ab [ Units/volume] in SerumOrdered By: Imad Asaad on 04-21-2023 Actin smooth muscle IgG Qn (S) 13 Units 0-19 [facility] Comment on above: Negative 0 - 19 Weak positive 20 - 30 Moderate to strong positive >30 Actin Antibodies are found in 52-85% of patients with autoimmune hepatitis or chronic active hepatitis and in 22% of patients with primary biliary cirrhosis. Zdhla-4-Wdbeaukvgco Phenotyp meri 04-21-2023 Alpha 1 Anti-Trypsin 139 mg/dL Normal 95-164 [facility] Comment on above: Order Comment: Reaso n for Exam Elevated LFTs Performed By: #### M ITOM2, L-K MICRO, ALPHA PHEN, HEMOCHROM, CERULOP, TENA, IGG, SMAB #### [facility] , #### PARVEEN, TSH3 #### [address] Phenotype (P1) MM Normal . [facility] Comment on above: Order Comment: [...] to confirm phenotype. Performed at: - [facility] [address] [id number] Forging Engineer: Zechariah Paula PhD, Phone: [phone] Performed at: - [facility] [address] [id number] Forging Engineer: Aston Omalley MD, Phone: [phone] Performed By: #### M ITOM2, L-K MICRO, ALPHA PHEN, HEMOCHROM, CERULOP, TENA, IGG, SMAB #### [facility] , #### PARVEEN, TSH3 #### [address] Blood or tissue HFE gene mut ations identification by molecular genetics methodOrdered By: Wilver Felton on 04-21-2023 HFE gene targeted mutation analysis [employer] Nom (Bld/Tiss) See comment . [facility] Comment on above: Result:c.845G>A (p.C aa176Nor) - Not Detectedc.187C>G (p.Yxd88Zfv) - Not Detectedc.193A>T (p.Bkb08Hbb) - Not DetectedNot associated with increased risk [...] recommended for patientswho are homozygous for c.845G>A (p.Irx833Hzg) and have yetto experience clinical symptoms.Comments:The most common HFE variants associated with hereditaryhemochromatosis are c.845G>A (p.Sdk951Yft), c.187C>G(p.Chm03Xmz), c.193A>T (p.Zdt06Wfh). While patientshomozygous for c.845G>A (p.Vjm022Uho) are the most likelyto present clinical symptoms, less than 10% developclinically significant iron overload with tissue and organdamage.Genetic counseling is recommended to discuss the potentialclinical implications of positive results, as well asrecommendations for testing family members.Genetic Coordinators are available for health careproviders to discuss results at [phone] ([phone]).Test Details:Three variants analyzed:c.845G>A (p.Mqn879Vem), commonly referred to as C282Yc.187C>G (p.Unx82Ihu), commonly referred to as H63Dc.193A>T (p.Hhu39Bsw), commonly referred to as U23UQhgmwrp/Limitations:DNA Analysis of the HFE gene (NM_000410.4) was [...] was developed and its performancecharacteristics determined by [employer]. It has not beencleared or approved by the Food and Drug Administration.References:Paul BR, Joseph PC, Mohini KV, Christiano LW, Erick ;[place] Association for the Study of Liver Diseases.Diagnosis and management of hemochromatosis: 2011 practiceguideline by the [place] Association for the Study ofLiver Diseases. Hepatology. 2010;54(1):328-43. doi:10.1002/hep.81595. PMID: 27944755; PMCID: [id number].Surekha G, Shorty P, Hailey DW, Tor H, Corrine O,Simón S, Guerrero Castellanos, Alireza Bradford, Holly Sherwood. EMQN best practiceguidelines for the molecular genetic diagnosis ofhereditary hemochromatosis (HH). Eur J Hum Meliza. 2016Apr;24(4):479-39. doi: 10.1038/ejhg.2015.128. Epub 2014. PMID: 91326661; PMCID: [id number]. Ceruloplasminon 04-21-2023 Ceruloplasmin 23.7 mg/dL Normal 16.0-31.0 [facility] Comment on above: Order Comment: Reaso n for Exam Elevated LFTs Result Comment: Perf ormed at: CB - [facility] [address] [id number] Forging Engineer: Zechariah Paula PhD, Phone: [phone] PERFORMED BY: [place] [address] PATHOLOGIST MANAGED CARE PROVIDER LISA COOLEY M.D. Performed By: #### M ITOM2, L-K MICRO, ALPHA PHEN, HEMOCHROM, CERULOP, TENA, IGG, SMAB #### [facility] , #### PARVEEN, TSH3 #### [facility] [address] [place] [address] Ferritin [Mass/volume] in Se rum or PlasmaOrdered By: Wilver Felton on 04-21-2023 Ferritin [Mass/Vol] 59.0 ng/mL Normal 23.9-336.2 [facility] Comment on above: Order Comment: Reaso n for Exam Elevated LFTs Reason for Exam Fatigue Performed By: #### M ITOM2, L-K MICRO, ALPHA PHEN, HEMOCHROM, CERULOP, TENA, IGG, SMAB #### [facility] , #### PARVEEN, TSH3 #### [facility] [address] [place] [address] Hereditary Hemochromatosis,D NAon 04-21-2023 Hereditary Hemochromatosis Normal . [facility] Comment on above: Order Comment: Reaso n for Exam Elevated LFTs Result Comment: Resu lt: c.845G>A (p.Nrm127Rar) - Not Detected c.187C>G (p.Mei34Bgs) - Not Detected c.193A>T (p.Pnl51Awa) - Not Detected Not associated with increased [...] for patients who are homozygous for c.845G>A (p.Xbj291Hmv) and have yet to experience clinical symptoms. Comments: The most common HFE variants associated with hereditary hemochromatosis are c.845G>A (p.Lib939Dnq), c.187C>G (p.Fhi24Rya), c.193A>T (p.Sgl52Mei). While patients homozygous for c.845G>A (p.Sre105Jle) are the most likely to present clinical symptoms, less than 10% develop clinically significant iron overload with tissue and organ damage. Genetic counseling is recommended to discuss the potential clinical implications of positive results, as well as recommendations for testing family members. Genetic Coordinators are available for health care providers to discuss results at [phone]). Test Details: Three variants analyzed: c.845G>A (p.Pzy057Wmb), commonly referred to as C282Y c.187C>G (p.Yle57Awc), commonly referred to as H63D c.193A>T (p.Bqq94Aqa), commonly referred to as S65C Methods/Limitations: DNA [...] developed and its performance characteristics determined by [facility]. It has not been cleared or approved by the Food and Drug Administration. References: Paul BR, Joseph PC, Mohini KV, Christiano LW, Erick ; [place] Association for the Study of Liver Diseases. Diagnosis and management of hemochromatosis: 2011 practice guideline by the [place] Association for the Study of Liver Diseases. Hepatology. 2011 Nov;54(1):328-43. doi: 10.1002/hep.41072. PMID: 06039020; PMCID: [id number]. Surekha G, Shorty P, Hailey DW, Tor H, Corrine O, Simón S, Guerrero I, Alireza Bradford, Holly Sherwood. [facility] best practice guidelines for the molecular genetic diagnosis of hereditary hemochromatosis (HH). Eur J Hum Meliza. 2016 Aug;24(4):479-95. doi: 10.1038/ejhg.2015.128. Epub 2014Nov 15. PMID: 80054014; PMCID: PDS5601439. Performed By: #### M ITOM2, L-K MICRO, ALPHA PHEN, HEMOCHROM, CERULOP, TENA, IGG, SMAB #### [facility] , #### PARVEEN, TSH3 #### [facility] [address] Reviewed by: Normal . [facility] Comment on above: Order Comment: Reaso n for Exam Elevated LFTs Result Comment: Tech nical Component performed at [facility] Professional Component performed by: Daniella Birch, Ph.D., [facility] Director, Molecular Genetics [address] [place] [address] [place] [address] Performed at: - [facility] [place] [address] [facility], [facility], [place] [id number] Forging Engineer: Dinesh Davis [facility], Phone: [phone] PERFORMED BY: [place] [address] PATHOLOGIST MANAGED CARE PROVIDER LISA COOLEY M.D. Performed By: #### M ITOM2, L-K MICRO, ALPHA PHEN, HEMOCHROM, CERULOP, TENA, IGG, SMAB #### [facility] , #### PARVEEN, TSH3 #### [address] IgG [Mass/volume] in Serum o r PlasmaOrdered By: Imariana Felton on 04-21-2023 IgG [Mass/Vol] 1272 mg/dL 671-1456 [facility] Comment on above: Performed at: [employer] [address] [id number] Director: Zechariah Paula PhD, Phone: [phone] Immunoglobulin Asaf Immunoglobulin G 1272 mg/dL Normal 671-1456 [facility] Comment on above: Order Comment: Reaso n for Exam Elevated LFTs Result Comment: Perf ormed at: [facility] [id number] Forging Engineer: Zechariah Paula PhD, Phone: [phone] Performed By: #### M ITOM2, L-K MICRO, ALPHA PHEN, HEMOCHROM, CERULOP, TENA, IGG, SMAB #### [facility] , #### PARVEEN, TSH3 #### [address] Liver-Kidney Microsomal Abon 04-21-2023 Liver-Kidney Microsomal Ab 1.5 Normal 0.0-20.0 [facility] Comment on above: Order Comment: Reaso n for Exam Elevated LFTs Result Comment: Nega tive 0.0 - 20.0 Equivocal 20.1 - 24.9 Positive >24.9 LKM type 1 antibodies are detected in patients with autoimmune hepatitis type 2 and in up to 8% of patients with chronic HCV infection. Performed at: [employer] [address] [id number] Forging Engineer: Zechariah Paula PhD, Phone: [phone] Performed By: #### M ITOM2, L-K MICRO, ALPHA PHEN, HEMOCHROM, CERULOP, TENA, IGG, SMAB #### [facility] , #### PARVEEN, TSH3 #### [address] Mitochondrial (M2) Antibodyo n 04-21-2023 Mitochondrial (M2) Antibody <20.0 Normal 0.0-20.0 [facility] Comment on above: Order Comment: Reaso n for Exam Elevated LFTs Result Comment: Nega tive 0.0 - 20.0 Equivocal 20.1 - 24.9 Positive >24.9 Mitochondrial (M2) Antibodies are found in 90-96% of patients with primary biliary cirrhosis. Performed By: #### M ITOM2, L-K MICRO, ALPHA PHEN, HEMOCHROM, CERULOP, TENA, IGG, SMAB #### [facility] , #### PARVEEN, TSH3 #### [facility] [address] [place] [address] No Panel InformationOrdered By: Wilver Felton on 04-21-2023 Anti-Nuclear Antibody Comment 2 See comment . [facility] Comment on above: Pattern Potential Di sease Association Homogeneous Systemic Lupus Erythematosus, Drug Induced Systemic Lupus Erythematosus, Chronic Autoimmune hepatitis, Juvenile Idiopathic Arthritis Speckled Sjogren Syndrome, Systemic Lupus Erythematosus, Subacute Cutaneous Lupus, Lupus, Congenital Heart Block, Mixed Connective Tissue Disease, Scleroderma-diffuse, Scleroderma-Autoimmune Myositis Overlap Syndrome, Systemic Lupus Nmdcisuadowqq-Lvijvpcyutc-Bdmoefugjs Myositis Overlap Syndrome, Systemic Autoimmune Rheumatic Disease, [...] Cytopenias, Linear Scleroderma, Antiphospholipid Syndrome Performed at: [facility] [place], [place] [id number] Director: Zechariah Paula PhD, Phone: [phone] Hemochromatosis Note See comment . [facility] Comment on above: Technical Component performed at [facility] RTPProfessional Component performed by:Daniella Birch, Ph.D., FACMGDirector, Molecular Vszvtfjq40[address] [facility] [place] [address]Ufqwarnka at: [facility] [id number] [facility], [place], [place] [id number] Director: Dinesh Davis [facility], Phone: [phone] Serum fdegp-9-ndinsxkhcfc me asurementOrdered By: Wilver Felton on 04-21-2023 Alpha 1 antitrypsin [Mass/Vol] 139 mg/dL 95-164 [facility] Serum homogeneous pattern an tinuclear antibody (TENA) titerOrdered By: ariana Felton on 04-21-2023 Homogenous nuclear Ab pattern (S) [Titer] 1:160 . [facility] Comment on above: ICAP nomenclature: A C-1 Serum mitochondria M2 IgG an tibody assay (units/volume)Ordered By: ariana Jackson on 04-21-2023 Mitochondria M2 IgG Qn (S) <20.0 Units 0.0-20.0 [facility] Comment on above: Negative 0.0 - 20.0 Equivocal 20.1 - 24.9 Positive >24.9Mitochondrial (M2) Antibodies are found in 90-96% ofpatients with primary biliary cirrhosis. Serum nuclear antibody titer Ordered By: Wilver Felton on 04-21-2023 Nuclear Ab (S) [Titer] Positive . [facility] Comment on above: Negative <1:80 Borde rline 1:80 Positive >1:80 Serum or plasma alpha 1 anti trypsin phenotyping identification by immunofixationOrdered By: Wilver Felton on 04-21-2023 Alpha 1 antitrypsin phenotyping Immunofixation Nom Mm . [facility] Comment on above: Phenotype Population A-1-AT [...] reference. Ranges used to confirm phenotype.Performed at: [address] [id number] Director: Zechariah Paula PhD, Phone: [phone] at: [address] [id number] Director: Aston Omalley MD, Phone: [phone] Serum or plasma ceruloplasmi n measurement (mass/volume)Ordered By: Wilver Felton on 04-21-2023 Ceruloplasmin [Mass/Vol] 23.7 mg/dL 16.0-31.0 [facility] Comment on above: Performed at: [address] [id number] Director: Zechariah Paula PhD, Phone: [phone] Serum or plasma lipoprotein a measurement (moles/volume)Ordered By: Wilver Felton on 04-21-2023 Lipoprotein a [Moles/Vol] 1.5 Units 0.0-20.0 [facility] Comment on above: Negative 0.0 - 20.0 Equivocal 20.1 - 24.9 Positive >24.9LKM type 1 antibodies are detected in patients withautoimmune hepatitis type 2 and in up to 8% ofpatients with chronic HCV infection.Performed at: [address] [id number] Director: Zechariah Paula PhD, Phone: [phone] Smooth Muscle Antibodyon Smooth Muscle Antibody 13 Normal 0-[address] [facility] Comment on above: [...] #### [facility] , #### PARVEEN, TSH3 #### [address] Thyrotropin [Units/volume] i n Serum or PlasmaOrdered By: Imad Asaad on 04-21-2023 TSH Qn 1.24 m[IU]/L Normal 0.45-5.33 [facility] Comment on above: Order Comment: Reaso n for Exam Elevated LFTs Reason for Exam Fatigue Result Comment: PERF ORMED BY: [place] [address] PATHOLOGIST MANAGED CARE PROVIDER LISA COOLEY M.D. Performed By: #### M ITOM2, L-K MICRO, ALPHA PHEN, HEMOCHROM, CERULOP, TENA, IGG, SMAB #### [facility] , #### PARVEEN, TSH3 #### [place] [id number] [facility] [place] Miscellaneouson 04-07-2023 Miscellaneous [id number]#1.00OT GTIFF [facility] Miscellaneous [id number]#1.00OT GTIFF [facility] Outside Recordson 03-24-2023 Outside Records [id number]#1.00OTG TIFF [facility] Alanine aminotransferase [En zymatic activity/volume] in Serum or PlasmaOrdered By: Imad Asaad on 03-19-2023 ALT [Catalytic activity/Vol] 48 U/L 7-52 [facility] Albumin [Mass/volume] in Ser um or Plasma by Bromocresol green (BCG) dye binding methoOrdered By: Imad Asaad on 03-19-2023 Albumin BCG dye [Mass/Vol] 4.3 g/dL 3.5-5.7 [facility] Alkaline phosphatase [Enzyma tic activity/volume] in Serum or PlasmaOrdered By: Imad Asaad on 03-19-2023 ALP [Catalytic activity/Vol] 60 U/L 34-104 [facility] Aspartate aminotransferase [ Enzymatic activity/volume] in Serum or PlasmaOrdered By: Imad Asaad on 11-09-2023 AST [Catalytic activity/Vol] 27 U/L 13-39 [facility] Bilirubin.direct [Mass/volum e] in Serum or PlasmaOrdered By: [facility] Manuel on 03-19-2023 Bilirubin.direct [Mass/Vol] 0.10 mg/dL 0.03-0.18 [facility] Bilirubin.total [Mass/volume ] in Serum or PlasmaOrdered By: [facility] on 03-19-2023 Bilirubin [Mass/Vol] 0.8 mg/dL 0.3-1.0 [facility] Globulin Calc (S) [Mass/Vol] Ordered By: [facility] on 03-19-2023 Globulin (S) [Mass/Vol] 2.8 g/dL [facility] Hepatitis B virus surface Ab [Units/volume] in SerumOrdered By: [facility] on 03-19-2023 HBV surface Ab Qn (S) >1000.0 mIU/mL Immu nity>9 .9 [facility] Comment on above: Status of Immunity A nti-HBs Level Inconsistent with Immunity 0.0 - 9.9Consistent with Immunity >9.9 Hepatitis B virus surface Ag [Presence] in Serum or Plasma by ImmunoassayOrdered By: ariaan Felton on 03-19-2023 HBV surface Ag IA Ql Negative Negative [facility] Hepatitis C virus IgG Ab [Pr esence] in Serum or Plasma by ImmunoassayOrdered By: ariana Jackson 03-19-2023 HCV IgG IA Ql Non-Reactive Non Reactive [facility] No Panel InformationOrdered By: [facility] on 03-19-2023 Hepatitis A IgM Antibody Negative Negative [facility] Hepatitis B Core IgM Antibody Negative Negative [facility] Comment on above: Performed at: [address] [id number] Director: Zechariah Paula PhD, Phone: [phone] Hepatitis B Core Total Antibody Negative Negative [facility] Hepatitis B DNA Test Information See comment . [facility] Comment on above: The reportable range for this assay is 10 IU/mL to 1billion IU/mL.Performed at: - [facility] [id number] Director: Aston Omalley MD, Phone: [phone] Hepatitis C Interpretation See comment . [facility] Comment on above: Not infected with HC V unless early or acute infection issuspected (which may be delayed in an immunocompromisedindividual), or other evidence exists to indicate HCVinfection. Protein [Mass/volume] in Ser um or PlasmaOrdered By: Wilver Felton on 03-19-2023 Protein [Mass/Vol] 7.1 g/dL 6.4-8.9 [facility] Serum hepatitis B virus surf danile antibody detectionOrdered By: Wilver Felton on 03-19-2023 HBV surface Ab Ql (S) Reactive . [facility] Comment on above: Non Reactive: Incons istent with immunity, less than 10 mIU/mL Reactive: Consistent with immunity, greater than 9.9 mIU/mL Serum or plasma albumin/glob ulin mass ratioOrdered By: Wilver Felton on 03-19-2023 Albumin/Globulin [Mass ratio] 1.5 {ratio} [facility] Serum or plasma hepatitis B virus DNA measurement (units/volume) (viral load) by probOrdered By: Wilver Felton on 03-19-2023 HBV DNA GITA+probe Qn Not detected . [facility] Serum or plasma hepatitis B virus DNA viral load by probe and target amplification meOrdered By: ariana Felton on 03-19-2023 HBV DNA GITA+probe [Log units/Vol] See comment . [facility] Comment on above: Result Units: log10 IU/mLUnable to calculate result since non-numeric resultobtained for component test. Serum or plasma non-glucuron idated bilirubin measurement (mass/volume)Ordered By: Wilver Felton on 03-19-2023 Bilirubin.indirect [Mass/Vol] 0.7 mg/dL [facility] Outside Recordson 03-03-2023 Outside Records [id number] TIFF [facility] Outside Recordson 02-19-2023 Outside Records [id number] [facility] Coding Summaryon 02-16-2023 Coding Summary HTMLBase 64 HyusztqkRIs5vJl+PGhlYWQ+ NY3TNKJjF24prDEpnQ3sR0WR TElOSywgQVBQTElOSyIgbmFt TW0ouCVjJIBx IC8+VW8gDNQiNfxcqGPbw6C0 bCW1W31cql8uQLohaKZ6TKHk WcXmltvpk9iyqCm3QXsdYnyo OyBt ZTXodB28MJX2qY43Zm44uPQw iBKhz0ybdKr6HaGdLISxXYY7 qMloKZamy4DiEONrX12kxTFy c2U6 LJJkgMyutKLzQiLvsDX9zV2q WSkjtqlvl7ilzpfiErb2eh51 cLJrm1X1jXF1Y6WjdrT9GNPf bGQg LdzoiEYSqG4jcdphm3dtbhsa YoXfBVXyQAq5PEb8UQZwnSnv KoOxAW11LOK7UXLojcYvB2Vl LWFs rXlnCsZ6j3H3Rr4GH4WDJhss C4NWBGSQTIpbiPN+WM88gn15 Q4LwXkxySet2KNMdJCE2zSU6 aD0n PIItUOwod2T4vMJ9B0HekhLs pl0zb7jzBCDcOZcqE41adNLb s5M9KWYloJP8QGGnlMmwHaKq aG93 Oyc+NOXwhHodz4LkXuxvg9rf q4aslMb9EhtqYBAoidGmzHwc CJX9z6YrTu0rYZTydSN4lNR4 aD0i TqHlBlS2LFmfM654AcIynTNn MffhG82wL8MchMR+PHRyPjx0 BCQttUtyIU3iG8FlURFoamuq bGVm nHuoEH2vPEOwfpovANKleZ0y ZNAqY9l5IgAaVeO0XMriR6Dk FGVaxwviVz52kV9mMtWyVwH9 MGlu W2OmioY4JGLikLXzBIdlDWY1 Y32ea7W4QBElZUJnJOB5lNM3 eH5qvPeyjcqarOFnvEsvexBh dGlj ZEkyHCtmR391XGVgnHbxNaWq ZGluZyBEYXRlOiAgMTAvMDkv MjAyMzwvdGQ+EDDtAZD3kXhr PSAn mPMpWQidDs2ezHzpdKxhXP1u HKZpotiuAAVsiS0tKMMbnRLb jBcxJV9eICZjqitce737ZlLn MHB0 XGAugGLiO6YwbC2dUqKhYQRg DJZbX2QxvHMlZExoK190CToe HpH7JEWycoNoD4YyAEAcmQyz OiB0 n3Y2Vu7Pb2HkgbycW5EmkKCv YcNqZswgHQw9R7OhBcewhGB+ JE84PXGeZQ93NEb8LGR5uFbu PSdi TJZgP6YyfQ4xLiGwRWJpPAMc Oyc+PHRhYmxlIHdpZHRoPScx JYRvJgAolNrxER2uQa2nUBXh LWNv sQazeUBeGmEcc5xiZBHaCAqd KN7mhNmhD6GwaPB9VTEaf2e8 Eu24C90mK9OteHI+PGNvbCB3 aWR0 mC7zTuLlJeS8JOfjJ006HxSj fXWyNvtpz9fhg2thwBo8CzE3 IMWmhjMmkVeiVNH2r0ZbCg54 Y29s IHdpZHRoPSIxNSUiIHZhbGln ab3uoI4wAn0+OALouZG6uWO2 iB4vEwFwXcM5FTuaO900AeBu cCIv Wfikq5qgh9ubzJb5BsGuBSIj bhCeyFrgSCF0p9DzGh22C2Uo bNori5OnDlr2sk54jEVsf5J9 bGU9 E0IkKRKmgstzjLPkuExdBI6e FKEzpaxbFPXjuP5sIIWwR1k9 CfNdLvJ1JJbxK3IdtkD9TSNp bGQg TXKurZMSqJ2hqpdir6breenl RjFlLGWtSCt3FHh1OQVosHwe JmLmVDO8NbV2ARM9wGQpoW2g bGln gcmgwE6lEcj+UML6qMIzsYXO MZ7xLynhdHO+RLBbTTO4kMea XUhaSCVqjC0rSZFoP2v5DoAo LjA1 TItbF0HhlaU1PMAniYFqVNCl iODWwO5krkcyl4qsdjlrTsAh HVZgEIv0OWa0PPUsxPleBbVs ZWZ0 AjB3UBG5iEZjyY5pxNjavfib nO5kAai+PwzoqVgdWMW4DHh5 Z1CzKpy4ITGfjJavZH3rmQPf ZGlu Ti4mzTiuvOeiZP3dCDLwfftr x701AoMrs6ahWQFmbLXiNIol VSM4U25ic8Z7ZCGgOXJjURA7 dGV4 oQ3kyGwklifgcGFptDmvjpPm pZagXAvnGCphT329PEFhxCgl LcFzVBd2Y0LuEqk0YHIrnVkc ZT0n uUKdBAwoTg4hmKsmxMxtPW8m AOWwupxbh277GwEov0dwYEUa cAHlOKygGVA5K87mz3Z5KYGr MDAw CJZ5lIE4zA5wtPsagwydyKNs uIsiapWooPjkHUbiAJdiV410 KEFhtTxdBqJkdLu2J2QvJdx2 ZCBz eGhuED6gdOZpNMgbHc8ldYbl vRhzMD7hSOGbiuyxl785XaGi c0awKSBmvSJePFhtKHR0M34x b3I6 OIItUKZcBMF4eEP4cD4meCia bjogbGVmdDsgdmVydGljYWwt UJgaX050YLMfoUvkYgIouUix bnQg LXnqCJk2O9QkUtmtwNZ+PC90 SMKsUS66oUVbeHPio9hiqGo9 ZiWuVCVuLWM6jBpoLIqqa7Hd ZXIt B49ogOUht6J4CZCwvWoogBRt AjYdlDI3bB9lAJyfhbrwh4ul oednRqlfz6pxmb73mA98J62t IHdp OHJfSJQdPSPlTOKowPpddm5q hS5hSd9+KNMwcOO2yVG6wK6h LWRsHbI5BVowL069MbTxnPYr Pjxj c3gce0hryRr6OpY8BMIwieWr vAltWSK1j5XoMa00C10oPJvg FAHdKZYlEKMeWIFgvEedlm1q dG9w Ii8+TBKhmVJ7dGV9eP3wJzQf EoU6ZWqqB200OdLxdHIeUznu I54sV5MklVU+CWIqJab4UUBf dHls XP0bhXSlDRzkXr3jLBV9JqFi MnQsLCjaV2QiKNCgcrjvozxb hIG2AWPmXNYscG60Rh0rjXno MTBw wBNFrR8cpmoss1uggorhEsOb MZPsMBs0VVg6NWOopEszSlLc BMK5JwM1GEF0uHLxjK1ckNnu bjog aJ5cR8OaTIWwidcuMm75dU7t FsJjRiE5JUabYqa+QkFVRVIs IEdBVkVOIEFORFJFVzwvdGQ+ PHRk ZPS2pUgxDWfqCTTzqP5oXQOv J0o3HnRdNcZ7UOhkT8WfMMIv ilshCi88yM7aOgSlOjD9HKsb O2Zv qyC5RXOltUPvIRucATI0O66f t6D9WDKvKFMaFTX2cPK3rU2h bGlnbjogbGVmdDsgdmVydGlj YWwt XDotP138SWTcxVgoUnHkEtHr ToUtOHW2N3WfAtu1SUTzeClx HN2emMKxJUqcCa0nzCigvKjz MC4w PIWlidnoXLCekB8kHVRexGMq uGjqVW5xPSAemlzal054KuKy EIR9YUVouTEzC8YbkJ1gKvOg MDAw HPMaI5PngZQxUYoxV136ZRiq JzM9HEQdheSbO8UdMKCaxMen HoT4a4H6Cd3pDAQNSNYumiru dGQ+ WFQlROA6gPseIJjdRYXdnS5j JDFyM4l1UiHwSgB8XSpeP1Co KWQrdqdcKf63bD5zRwBvScM6 MGlu R8UllnM9EQDftGIkFIzxECC1 T34gu3W8ICEyLNIfXBH7gVO0 uS0umEfljxqavEDfmVpajyTm dGlj CWktKEjgL489IHBkiRjnFu4P YZU3X5NoYwo4WBKubFfyZH6d fNYkQZnbGm2jgRukvUthSP0o NTBp riisCHIydU0zDYKslMGniUbt CN6eHFLwkwera853BfDyEAJ5 IBRvhRRaD5GlmB6yKvOpWOJv MDAw Z5JjvGFhSDqhH836TKquGeU2 ZYScpuDuN2IjEYGesOnuOoJ9 x1Q8Ce8MPHpvtEG+BS62qu71 L3Rh XfgzEse4KCLlHFW1sXI6aN8c IOIiVFsgj4K1iLE4E0UsvdFi lp7rf2ocTJFlNBagK42euHCd c2U7 ECLcnTV1GNJryUedAcWnnO22 Oyc+DECppRhio2MdOxcce7uz g3gdhGe4CwJoGTPfbwKaiZtf PSJ0 p2VrWa03J25xENimNWWzCIQs WPErHAQitEswaj3heC4lBb3+ KJWshDX5uMG6yQ2eAsYnWxK1 YWxp P450DqTvhVTcAiahz6hex0bs fSk6YwEqJYHuveZgtNpgPXL9 x7LgCl95M1LskGbuo2JbLmx2 cj48 uPXzz0Y0hFX6D8XtJINezsex aWPatZkyIB0zBKBcebbuNCIo vQ4eFPSfN1a0OtGfGjS5GKzc O2Zv sjO3PENhkBZuFDPgnKSPaA4g llkkt9jlhbqxXsNyIMGlWId2 EJn8JYNjlUtqOxAhSLQ3UuK8 ZXJ0 hWLhrN1dlNdggxeykF0oRph+ MSy4f3hadJZeCN8kkHL2TQ98 LF37tGEpm7Z5jUW7V1WuHQEn bmct anvvdPJ8BSJuJAWejW99Xy9u xEmlZe3hJBUnEEA6ALDhaZIn P1WryH6zUvPaSSAgBWVgW3Ub eHQt JHyoK555GNwfJqW3QKFfciVd D5PpNSIieZlgUlM2j4Z0Ui6R PO15TG60LD89gUCue0Y4hXZ0 J3Bh PUVzhwnqqgdtgNZ0EBBaETFr nH43Gh5vbVupVr8dNCBuZGS1 IXOzxOTdD1WgjO9bMoUyFJUm MDAw P1YizXVlGYilQ862PDvvQnG9 XHXkpzCsM4LjXZZfqCasBzR3 y5Q2Os4SZi93YA44OU84lWFd c3R5 kNX6D3NnXGQgqdebpfdstMI9 MGDtDINheO79Rg7jcIwgVw0d DHNkWYH3BIWbqITdG5MghM8b OiAj NFIeWCLoW7XdfDVwQZseC092 UOhpOvD9XTNdquUuY8JlAQJg vAdtHgP3x2F0Dc9IEGwtkzz1 L3Rk PjwvdHI+EM38YMTdVU20dTQz lOKxn0ttcUj6OeAgKMGbVJZ7 hNvqUHfbg0WhSPHhC82htJWu c2U6 IGN (more content not included)... Normal [facility] Reminder Messageson 02-17-20 Reminder Messages - From: BALJIT PISANO DO To: [facility] Clinical Pool ([facility]); Sent: 02/12/2023 15:32:57 EDT ! Show up: [...] % (14 - 48) 02/12/2023 13:38 Auto Zavala % 12 % (1 - 12) 02/12/2023 13:38 Auto Eos % 2.0 % (0.9 - 4.0) 02/12/2023 13:38 Auto Baso % 0.8 % (0.2 - 2.0) 02/12/2023 13:38 Neut Abs# 3.4 x103/mcL (1.5 - 9.2) 02/12/2023 13:38 Lymph Abs# 1.7 x103/mcL (1.3 - 2.9) 02/12/2023 13:38 Zavala Abs# 0.7 x103/mcL (0.0 - 0.8) 02/12/2023 13:38 Eos Abs# 0.1 x103/mcL (0.0 - 0.4) 02/12/2023 13:38 Baso Abs# 0.0 x103/mcL (0.0 - 0.2) attempted to contact patient, unable to LM, multiple rings, no VM Patient returned tamra and was notified of results. Normal [facility] .Auto Diff 1on 02-12-2023 Auto Zavala % 12 % Normal -12 [facility] Comment on above: Performed By: #### 1 [id number], [id number], [id number] ####[facility] (DEFAULT)[address] [place] [address] Baso Abs# 0.0 x10 Normal 0.0-0.2 [facility] Comment on above: Performed By: #### 1 [id number], [id number], [id number] ####[facility] (DEFAULT)[address] [place] [address] 62926 Basophils/100 WBC (Bld) 0.8 % Normal 0.2-2.0 [facility] Comment on above: Performed By: #### 1 [id number], [id number], [id number] ####[facility] (DEFAULT)[address] [place] [address] 40173 Eos Abs# 0.1 x10 Normal 0.0-0.4 [facility] Comment on above: Performed By: #### 1 [id number], [id number], [id number] ####[facility] (DEFAULT)[address] [place] [address] 73709 Eosinophils/100 WBC (Bld) 2.0 % Normal 0.9-4.0 [facility] Comment on above: Performed By: #### 1 [id number], [id number], [id number] ####[facility] (DEFAULT)[address] [place] [address] 16966 Lymph Abs# 1.7 x10 Normal 1.3-2.9 [facility] Comment on above: Performed By: #### 1 [id number], [id number], [id number] ####[facility] (DEFAULT)[address] [place] [address] 53063 Lymphocytes/100 WBC (Bld) 28 % Normal 14-48 [facility] Comment on above: Performed By: #### 1 [id number], [id number], [id number] ####[facility] (DEFAULT)[address] [place] [address] 60448 Zavala Abs# 0.7 x10 Normal 0.0-0.8 [facility] Comment on above: Performed By: #### 1 [id number], [id number], [id number] ####[facility] (DEFAULT)[address] [place] [address] 84925 Neut Abs# 3.4 x10 Normal 1.5-9.2 [facility] Comment on above: Performed By: #### 1 [id number], [id number], [id number] ####[facility] (DEFAULT)[address] [place] [address] 72390 Neutrophils/100 WBC (Bld) 57 % Normal 44-88 [facility] Comment on above: Performed By: #### 1 [id number], [id number], [id number] ####[facility] (DEFAULT)[address] [place] [address] CBC w/ Auto Diffon Erythrocyte distribution width (RBC) [Ratio] 12.9 % Normal 11.5-15.0 [facility] Comment on above: Performed By: #### 1 [id number], [id number], [id number] #### [facility] (DEFAULT) [address] [place] [address] Hematocrit (Bld) [Volume fraction] 42.2 % Normal 34.8-51.9 [facility] Comment on above: Performed By: #### 1 [id number], 5651498, [id number] #### [facility] (DEFAULT) [address] [place] [address] Hemoglobin (Bld) [Mass/Vol] 14.7 g/dL Normal 11.8-17.7 [facility] Comment on above: Performed By: #### 1 [id number], [id number], [id number] #### [facility] (DEFAULT) [address] [place] [address] Man Diff? Auto Invalid Interpretation Code [facility] Comment on above: Performed By: #### 1 [id number], [id number], [id number] #### [facility] (DEFAULT) [address] [place] [address] MCH (RBC) [Entitic mass] 30 pg Normal 24-34 [facility] Comment on above: Performed By: #### 1 [id number], 3861025, [id number] #### [facility] (DEFAULT) [address] [place] [address] MCHC (RBC) [Mass/Vol] 35 g/dL Normal 26-[address] [facility] Comment on above: Performed By: #### 1 [id number], 6323486, [id number] #### [facility] (DEFAULT) [address] [place] [address] MCV (RBC) [Entitic vol] 86 fL Normal 81-100 [facility] Comment on above: Performed By: #### 1 [id number], 6303676, [id number] #### [facility] (DEFAULT) [address] [place] [address] 88936 Platelet 254 x10 Normal 138-427 [facility] Comment on above: Performed By: #### 1 [id number], 8260203, [id number] #### [facility] (DEFAULT) [address] [place] [address] 68044 Platelet mean volume (Bld) [Entitic vol] 8.6 fL Normal 6.3-10.2 [facility] Comment on above: Performed By: #### 1 [id number], 9092135, [id number] #### [facility] (DEFAULT) [address] [place] [address] RBC 4.89 x10 Normal 3.70-5.30 [facility] Comment on above: Performed By: #### 1 [id number], 1540152, [id number] #### [facility] (DEFAULT) [address] [place] [address] WBC 5.9 x10 Normal 3.5-10.5 [facility] Comment on above: Performed By: #### 1 [id number], 9589926, [id number] #### [facility] (DEFAULT) [address] [place] [address] 69059 Liver Enzymeson 02-12-2023 Alk Phos 56 IU/L Normal 32-91 [facility] Comment on above: Performed By: #### 1 [id number], 5030383, [id number] ####[facility] (DEFAULT)[address] [place] [address] 50922 ALT [Catalytic activity/Vol] 53.0 U/L High 8.0-36.0 [facility] Comment on above: Performed By: #### 1 [id number], [id number], [id number] ####[facility] (DEFAULT)[address] [place] [address] 65803 AST [Catalytic activity/Vol] 35 U/L Normal 13-38 [facility] Comment on above: Performed By: #### 1 [id number], [id number], [id number] ####[facility] (DEFAULT)[address] [place] [address] Gamma glutamyl transferase [Catalytic activity/Vol] 31.0 U/L High 7.0-26.0 [facility] Comment on above: Performed By: #### 1 [id number], 4383929, [id number] ####[facility] (DEFAULT)[address] [place] [address] Coding Summaryon 01-16-2023 Coding Summary HTMLBase 64 MficoyvqYSn0rTc+PGhlYWQ+ SM4UAJBfQ74erPJqnE2aI1OC TElOSywgQVBQTElOSyIgbmFt KM7pfBDkOFDz IC8+OJ5xSTCaTfsniALdp8O0 uPN4P35rna7tNYskzJN2XFGi DxMgjcsji8rvaJn2FPowVnzw OyBt MQOkaA12MHR3aK50Ut40oXAx xRKqw8xyxCi9HzCfRCNsNTA8 yMmoKWawl3XbQRGwQ20clKCn c2U6 LJOveGjflXUcEfPunON6dZ1l FJgdvpfpy1burkmmXaz2rk79 gVUkn9W7vAE4Y4NjajG7UWIw bGQg GndyrEDSpV3shzgob5sgbnio JwYwRGKjAEs0NPj4WDQhuBki WfLlBE32BRR4DZInlwMxF5Uf LWFs tLbdHlG7v9G8Ga7PP3SJOily F0JCIOJRPPswuCP+IL99fr73 N3MlVdacOmv6PDVoZAA2gFQ6 aD0n HGTnMRipo3J8jCW8K2JmnpRd ka7iv3mrKSJgIKkdE59ksVJc m3Q5XIWfmIK7VBNexGijYaBt aG93 Oyc+ROIeeZrxp5OqHdqeu0cg p9xctJy7QiblYENqawOcvXrj XYU2a0JzDb6dFQCwvPA1eRZ5 aD0i MwSuBdU7UKwyS159JaGuvCAq XhkoU78mS5GgmJO+PHRyPjx0 EKNlgCodCC5kC3SvJCAjbrlp bGVm eYvkWU5vIQXcestuHDYwzI9n TEDgN7h9PcAsTkH6ASygT5Nn FSXdvxgbHn41zX2gOcZlZcU9 MGlu V5YklrU9PDPhuPPdXCjvHTP6 I46ep4X9ASLrFFPzAVN4eCH3 mY2hdEslurlgvGEasKzlraCl dGlj QLouWQtfY798JRNpaTdrFoLc ZGluZyBEYXRlOiAgMDkvMDgv MjAyMzwvdGQ+FLDeNUE9tJtx PSAn cUGpZBjyKr2rqYplsJsmOF3n DBPlvpyvVSDcyS9sFQBdfMKv sZxmML5zSPPmtwkdj183ZjCq MHB0 PTHocNLlC2DvyL7lRlNdYSVt CCZmZ3VhlRUoXZftN837DRjd PoD8TGWrnaMgR3SaSDAkwJho OiB0 d9O5Jv4Mr3JuebypQ9LaiGJg OiXnZnwzUTw1Q4XrLxjopMR+ LB02RQOlRV07NBn3OMX1pHxs PSdi ZZGlW9FefU0tCmKxCCTfGBZl Oyc+PHRhYmxlIHdpZHRoPScx BKJlBwMbvHkfOS1rXy5mLJEw LWNv qJdmeATyNjFfx3adVEWfHDaa OG9lnXenI2NocKV5GNIfx4y0 Rv69P04sU5HffPH+PGNvbCB3 aWR0 cZ1aYyPpNdD8QRsdH541JeTr mEFpQogge4wor7kviHt1RkV7 UFYsnxXslKhaDHR6j8HlBi73 Y29s IHdpZHRoPSIxNSUiIHZhbGln an9hkH7aAe3+GYXutAF0zMS6 bG8dJsWjSpP7NAhoV911RcWp cCIv Mqeqd2gyk8dxrNg2YhUkHAZk diVvmDbnLJV3c4AsSc50S4Dh uUbvi6LuTlg8zh04vVUdk4T5 bGU9 D9OmVXNwffqqmPFxoXcaMN3j AIAssujeRVKroJ9gEZRyP8o4 SzSwUeP7PTibO6VdhgS4CGUm bGQg ZRMtyHQGwH1phxrfx0ltmybb WoTbDEMyIMb1IPc4VOTgvDzr TnEyFAY2DmT8WFQ5kWLcrN8k bGln qpqbbE6uCrq+ZQY9xRDhoTRC VD2sIltziUX+ALWsGUI8uDwv IFpjAMAfgS9sIRCmK1p3EdGc LjA1 BVhoN1ZhxsI7UKWguCZlJOPp jXNLjF3fjvsxl9kznrnkUoUr GOPcJBe9KIf8GCZvcEpzAtYm ZWZ0 RqC5CWW6lUNzlQ1dpYmoxmap vT9iXcj+FnamfUasZHB3GZu9 L7WeFve2HGLxtCcwFL8wqRRh ZGlu Yh9daKnqhLglJU4mWHKeghxq z363NmZlz4cxXOTejYNzZYoo YSN8F82ke1C1SPGvKAXbWIA6 dGV4 xG0krVmkrhlmwIHfuCzgouZz cFojKBkoFXgaU441UOGldTjl ApZcXNv0J2StDyx1HDZivRtr ZT0n aTBmPJiaHl1ofYvtrQpgQA6z OTEsotepn790BcSyg3erAYFh aTBrPWjfFDN7W43xz6T0DXAg MDAw YEW0aIA8dQ1vsOudmywraMMd iVqmlmOsdWxnKCplIMumJ865 TRXvoMukWgTepBx0M3YfNkn2 ZCBz rPszMO6mdWBnTNiaYj7aeCbv rWsxBG6hIRJeytsdb861NbFb c4zgQFAtsRPrFKdzFTN3Y09y b3I6 CAFhATThPLG8tAH5zP9gpNcg bjogbGVmdDsgdmVydGljYWwt WAxaA941XQCzqQlsUeUnhQdm bnQg JXltBId2K8AuIceahRW+PC90 SPWcIX90eVHcoFUio6cwgIf2 OwHjEFRbBRB3qOqhRLxkn5Lz ZXIt N12hyOSzw0V3LRCefCxnbHPg RcWcuDO7aI4zMNounhryd2cz nolkLutgb3yufn45yS72O14x IHdp WXOeTIHpUVEqUDYsrBjcwk1g iB7dYk7+JWGtiAU5oJM5iW9l UZBpAqW0EPocD195SzSvqUHc Pjxj o6cqp3ynaWl1EfK5GFEgzlCh kSwaDYF6l6HoOp87U66oKGok RRUpCVJnCGBvPPUflSbblp5c dG9w Ii8+NVEkhRK8pYC1yC4qQgPa MdU7LCyeU951SkKlxCHiTddv M46lU4WsgLP+SDMjFep2JEZc dHls EB7maNWpOOdtRw2bISQ3XpGu SvPfMEryY6PwGZFmyilgroko zBN7GTErQQNrtO04Yv5daUwd MTBw cMEHyN5jszcns4lqwongFgHd RGHiMGn0KLb2BUWpgSkgUpDf FVI8UtT2IJB2fZLrvY6uxUyf bjog xV0cZ7TcQYDvmdhyLx76rP1i LfGnJoA5EIesJyz+QkFVRVIs IEdBVkVOIEFORFJFVzwvdGQ+ PHRk JIX9uHafIWgiVALgmA9sLBTn J2f0TsLwIaW9ENzoK5GvPBLx oylrPl17rZ9zVkKcZjZ9YNsa O2Zv cbI9GJOfmLEgZRzeXKN8L59c v4Y9JCLpUBCoYEJ7hEK4pU2h bGlnbjogbGVmdDsgdmVydGlj YWwt YUwdK948MKHmyRcaNlScWhDn YhVfDPC6I6HaYco3RNNbaLry QM6cvGNzRUzwUm4euKnnlIiv MC4w FXBahoodAULfeJ5cFIYhjANn pPcjVH4oFGYatsmtb999FjBn XEZ7NZXdqHPbE2KqxW3xUnTb MDAw NSJhD3FgpBLfYEfaW801MItj PdS8FIMtxoGtH2SuEZUmdLlz CwH9z4D2Vk9cCBWBZJIyvbkg dGQ+ WUSeZMQ6nOqeQQcgSCUfzL5o PFFnV5f7XyTgPwD2FQpaB6Me FLRnkedtKl73gT8pAoBbJwY6 MGlu Z2AfswM5RVRmrJMgZEjbDWB9 D95wc0Y2XJGwUTJgWVH5mWG3 sS0rpIjrvwuivVDhgMkxxmXb dGlj PHsjQWfcR862RVGykVevCs4Y VXW5H8SjFqo7RTWzxAygPT5h xWRpOKevRq4yyTcunFnaRB5y NTBp jhxqATLxgH5wUWMfpZPyoTew TG9fXTAwzihkr171HmReUUR1 CWRwjCRqV2RjpJ1yHjKgCXYv MDAw H5AabCFaJGfnE785MHbbDxK8 EQBberHgQ1OaDOUzxSjoJdD0 m3A6Gt5GDApcbWA+VE75jy60 L3Rh JlqsChh6YPQfXDE7pBV3uT7p CATmBKsdu7M3hUW4E0RkzsFl wh9nu2xpSKBiBGtvO10ycNTj c2U7 KXHtgJF5ADLuaRbzBtAfzA89 Oyc+SNDwgNaiv9GrFpqzo7hp m4zieXs5EbHmEFQdiiMxxDvn PSJ0 z7ZeUo84K03rYKfjNMTdZYHj HYOiRDSotQjqba8njX0hKf8+ UIEbjJW6dUF6rA4sZfEeUuH8 YWxp Y187HcJdlVJvOscqr1duw3vd oXa7PkGnGNLfydUtjHncRXH4 j6XqOg80H7WpjKzqv3FhVri9 cj48 uVDya0O7iMH2S5LfBXNvwkpi fEXxhCocYN7xQQHwsmzkPNQl rQ7rVKEzF6v5VnAmZjI9ARzq O2Zv knN5MNWcuMRpQWJohIARjF7v aoxmk1uznbbvToOwPBUpOYl5 FBc6ILKngPhsHsJoCUL2FqG3 ZXJ0 lLErnW9zgQpwocxfeH3oHbw+ MJh8q3mzhFYfCA5dlPP5AM42 OQ65mQMtj7D3pHB6L6CpMEKq bmct yifpqAB4CDWwIFJjoC41Gx4c iNqaZa6tMXZeYTG6MHNxpHFq B5FqyK5nBsPkWMLbCSBeE4Ac eHQt GKozQ479EZkqNcR9XOIknaCm M9OfHHJiuUgeDsY7a9K2As3P MR41CH34IL35bIKri2I0yTG8 J3Bh GZOxvczxhdyhbIK8WCCdWNGo hD46Mv9ifBbvBa8pVUGuFLG7 HLAqcHXoC4TxbF4pQtDvINNd MDAw T2QjoYHcVOuhN260PIyvBnT6 BVQvdmGaM0HkVAQqfYqaLwH9 e0F3Xf4SBi68HS36NV92kQEt c3R5 eVH7D7HoSZKqqpikfhzwkPN1 ELAvTRCfvL62Cr3fgAyaOt4h TBAwOQU5KTOcdZOsQ5BdeJ8f OiAj SSJzMMFnU7LjmXWmJDriN923 RErwFiL2QEAgrdGcU6UpVGEd zPmdBcK3y7P8Og5SQTczsan6 L3Rk PjwvdHI+MQ32XGYyEG47kQXu bNYwc4tbeEk1ZeBtHMYeXEF9 zDgcSStar8LbLGDeB37mjEAu c2U6 IGN (more content not included)... [facility] Outside Recordson 01-15-2023 Outside Records [id number] FF [facility] Reminder Messageson 01-15-20 23 Reminder Messages - From: BALJIT PISANO DO To: [facility] Clinical Pool ([facility]); Sent: 01/13/2023 07:37:35 EDT ! Show up: [...] - 26.0) Notified patient of results Normal [facility] Reminder Messages - From: BALJIT PISANO DO To: [facility] Clinical Pool ([facility]); Sent: 01/13/2023 07:34:28 EDT ! Show up: 01/13/2023 07:34:28 EDT Subject: Results Follow Up Actions: Call the patient with result(s) Due Date/Time: 01/14/2023 07:34:00 EDT Reminder Comments: swollen fatty liver consistenat with hepatitis Results: Date Result Type Result Name 01/09/2023 16:08 Radiology US Gallbladder Notified patient of results Normal [facility] Liver Enzymeson 01-09-2023 Alk Phos 57 IU/L Normal 32-91 [facility] Comment on above: Performed By: #### 1 [id number] ####[facility] (DEFAULT)[address] [place] [id number] ALT [Catalytic activity/Vol] 54.0 U/L High 8.0-36.0 [facility] Comment on above: Performed By: #### 1 [id number] ####[facility] (DEFAULT)[address] [place] [address] [id number] AST [Catalytic activity/Vol] 35 U/L Normal 13-38 [facility] Comment on above: Performed By: #### 1 [id number] ####[facility] (DEFAULT)[address] [place] [address] [id number] Gamma glutamyl transferase [Catalytic activity/Vol] 30.0 U/L High 7.0-26.0 [facility] Comment on above: Performed By: #### 1 [id number] ####[facility] (DEFAULT)[address] [place] [id number] US Gallbladderon 01-09-2023 US Gallbladder Clinical History: [...] Rafita Farris MD 01/09/23 4:08 pm Technologist: [facility] Coding Summaryon 01-07-2023 Coding Summary HTMLBase 64 FiqmbhxoXYi3oLk+PGhlYWQ+ UW7ZRXKoO33lrWXkeL2qU1KH TElOSywgQVBQTElOSyIgbmFt WR7irPSbPESk IC8+ZZ7xJOPoZrpiaDZsi5K8 cYS5C13eny6nECbmsUH4BLSz JyNklojvi7ivwWf1GVevVyky OyBt AHEbuZ88CKE4fI72Fm31zCIp kXYqj3sokEi9LrTxNOTeXVF8 xNklJTloc4UwIUJeD73ekPNj c2U6 IXEyqDjjgPBoPgJbeUS3aU8w NLiizugdh4ucnpkcZvi9td97 iOPyl3J4mUH6L9AsnpK5SBVf bGQg ZsfdqPFRoJ9krfcry7neqnvs ZhBmCSFmUDa8ODw3JRZvuZmr NyFfKZ88BLS0ARGlmiAwK4Ru LWFs qUhnCjM2e2L6Ut5LM7IJXary X5HDOBWAJIeydEG+KI69ad24 F4JlByahRpy8EWAnXQW1xAY7 aD0n PFFpJRuqo3J0rNY5J1GkguNp jy1vu2jmJJHfTLnfC60fnNSl n7W2HKYvcMP1TKTwtBoiPjCo aG93 Oyc+UBMrjYwtw8QlFqdfi7qq e0zwdLx6VyqnKDAbnzZgtFpn TZF8l0RtCt5uQOOncST0yOY5 aD0i IbAoHhM5KGzxO002YcLsbCEz LzbeZ44nZ5TnfXX+PHRyPjx0 VRWncDesPL6jN2OqGSOumsta bGVm wWeqSR6lKAHmuqxrEMSabR7m RYTlQ0o8NeFlIlW4KVgqW1Bd JONjtpgnVp99oB9gYgFpGrK6 MGlu B8LkayV2VDOjfSXeXNzmRXP7 H03vd9Y8YMGeYHRvUPN8nSM8 tS4bgMphywzweYEciGhdvrKh dGlj YIrhTCgjF364MJVqzUpiBrAg ZGluZyBEYXRlOiAgMDgvMzAv MjAyMzwvdGQ+EKXsFUE0uTvs PSAn dWCkEXhwQp6vuNxbhLgjNR3d IVWfeqmnDCXqmJ5iBIVzeTWf nVeaDU1yWSTlsfedq328ZyKg MHB0 HFYtaZKdE4IllW2uTpFqXEZh LOJyD0ZzvTKxUGysZ408VUyz JiO3SHKobtYbK7PdJJHkdNvy OiB0 z8Y2Dn5Pw5WisqisT1IlwBSt FeJoOgkiUZl9Y7YpNfaerBI+ MY42QEGwRZ31WIw9CKB1dWrf PSdi CJSuB3LgaF4cGfSjDEVsGFUb Oyc+PHRhYmxlIHdpZHRoPScx RKCtMkRgyKcqRY4qXg6sSJQe LWNv gDyfuBXxJeGus0dcTKKsZAaw LV8nsVydX2YyvSG8UUWgo4k4 Vs16A87jS8TudEX+PGNvbCB3 aWR0 dA7nQvLfSuX5QYauY665UjRe iJKlKzskv0spi9kkfFc9MmY8 TLUuvaRxaLgkMPK7x9KmAb51 Y29s IHdpZHRoPSIxNSUiIHZhbGln ky9ldF7kRy4+NRYkjMA7jSZ5 fW3zWtCvDhK2PEusF069YbAl cCIv Pquwe4xfx6mptOg7LjRqBEAc weLzlNkbBEG8n4QxDr72P0Ah sAoff4HhOpl8ag49vXAaq6R4 bGU9 L7WjABXjoqcdyPNcjAgdXL4d NRTeuttmNLRthR1fJZKkQ7y7 UnNjHoN8QNpiA2NkfdN0RGYx bGQg ZFRfuFZGzD0cyxvpb6rymjfk PcKvCEUaKNg4ZEq2IIXuyTgt QrQoHZC3FkP7OPQ7oGPaiG9r bGln hzliaX4lCif+PGB4tVGiqPNS CU8kIppohNU+JLTxJDG3mHow ACcbIVPndG7mUIPjR9f0JqVh LjA1 FHfeK6ZjnyU7UEHmwBYbBYOe jTTNxV8syzobw5edplavGbZo YEBeHFm9EHj4ZOXrvJqzHmCl ZWZ0 HiC7JQL6mVWacT7ehDwmorwt tR3kRwt+OpfcuUgoOUQ9HQa8 Q9NfNjo8GAJgfSffBH7hzBVi ZGlu Bk5iwTjewPskEE5hUPIynoyh m820MpVjd1prIQTrpNCjGXdg YRF0U59pl0G3TKPlHEScIHR8 dGV4 aH8qgBkjtgmuyPTzwRxcmpTr kNsmODuwMQyxK324TQSicNje AiYsLBt3P1PjQqu7OQMspNnt ZT0n tXXrKEtsRv7fnKpufJviJF9w ODGibnepr045XvSzq4rzZJNh pDCwVVoyCDW9C31yg2L4WDTi MDAw ZBF9hIN8mV1cvVyjhqtkgAQj bLfvxsMvqOzaGAzpQRgeQ862 PAJqrQfaTyOizAm0H9RyByv8 ZCBz iKraSL2zvGMpYKvqGd5rkTnu jTmhXV9uWFPptwest523FoIo e5eaLEHbrFTtWCrqTDU5V78f b3I6 WVTkPLSgRJY3jYE8dF4fuYxi bjogbGVmdDsgdmVydGljYWwt RRsnY193VABtpQxqOhUekWqj bnQg YNzhCIw9W1QkRqiafLU+PC90 WOPhNV08xLCipVPzd8othDb5 VtUyVIXoBKC2hDdbCQjec6Fo ZXIt L27mhXUyt1W3OTXmdAlloVGx MuFiyFD0pI6kQVtojhqsa8ij hgorLuxsx8sizy33pI86P21f IHdp OFDaDXUhNRCsEJLblGlxxt0i qC2gSf6+LEZlrSK4xQR2zS9u WCEoXgF2QOacU698VqKojRCj Pjxj x4qsn6gzxIn0ZyD8THJrwhRc fBdyNLO5p3XiSo01Y43lJIik JGSnZZNdXBUdMKWydZcxks4n dG9w Ii8+EJQjgTP4jEZ8oB3jZmHh KiJ5FXwbI272EvJmiGRzWklf D57xS9TycFH+WZJwQso6TKOs dHls WS2jeLDeMUubGx4qEYP9QhPt FfBsPGvfF4UuTCMqaybnlbty hFO6YBZdVEIsvR15Gq5wyYfb MTBw pRNKcX4jfbinr7dqibcjRsIp AYXkHAb8TWi5SIQplSihQpAo PYY5CdL6XBG5aESvgL8xiOwh bjog zM8vK5PpZJWshadnXm18dZ3n KdBhSjA4PHkvSty+QkFVRVIs IEdBVkVOIEFORFJFVzwvdGQ+ PHRk BEA2yIzgMPjbFZWtvF8sDYFg K7q1CjHhXmU8VBvjT0EaFSRo tuocWx82wA2xZhVlGfT7GUlr O2Zv suY0PPXjkYKgSDnuAPH4Y43r u9J5HVUuQNHpYIJ4vZV6gP2k bGlnbjogbGVmdDsgdmVydGlj YWwt JLgwX362XZSyoZqcPuTaLuGb GzPgVVB2Q5CyLzy0RVHjzVbw BF6lqUXqUVqjQk8qoKvlqGua MC4w SXTdheczYZGjfR0bSHNteFIv sHmyNX8hGNEzjbzgb504KzFf OQY6LNNcjXWaZ4QqnH9gUySa MDAw NFJsD9FjjOUxGUviR082DZoz BpE5VYKdgrZbD7LkOXNkjKrr BjN7p6O7Bm4lTZOACGGdbrho dGQ+ ZRAfOAE5qPbqESkbXVOyzJ8n GPUxO0k9UjXiWuT1JLzuQ2Fk VORisvrvYv85uQ3nLoVuVfT2 MGlu S8HebvF4XEHpnPAwWVueVGN8 I30gu6H0TMVtBTVmLLC3qSN6 bJ5ufEvhmaxulMZnsXlywhRh dGlj NJuyUOkbB683YTXabBskJx0L JPV5G0PcJyb5JBZqcIgtAS7c pSXxNXhpKc1wlCokmHmaKC6v NTBp xsrgKVPqpE4mUHVvpSEeeRrv ID8pFACwfoejt270RbAbAQD9 QNEsxAOtD8EifC4wUuBeWILw MDAw W8GuvWLyLOauR962TYgrCyM3 MDKdykPtV0KkYFVsvJrvNkO6 j0T3Ds9BKUkxaRW+IM77sl54 L3Rh OsdsVle7UEKjVDS1qMN8fB3p XIJqFAbda3H4kHF2M7MrpeJc cm1aj3egAQOyURdaI96ctDVg c2U7 TXYqtWI3NXMexVovEpMptA49 Oyc+PVRecNgip2OiWrktx1ai d3uqlBi0FnMnFGFnrtCdfQtf PSJ0 g3YhMj64A44yGHbcUURrAEVl CHMtVQWakGuvzy4xmD2rIv7+ BZErrOQ9aWZ4nN8jIkZbXvH2 YWxp N191RsNjeLRaZsize0aux5ci kRh1YnGfLLBmomTecAcyNLU7 r2IoYl75Y4QwjSctz4EnZvx3 cj48 xYJov4Y6mIA0G3YiURRjnovp sSCfhNolIO6wENUzirinGISv jL6uFGFlJ7a4LvJzWrA8TOqo O2Zv vxU9ZKOelYUeWPHyeRAMdU8g jbest9xercdfYkBxTRCiYBj2 RDl7EROddFkdVtTvMMH4QiH0 ZXJ0 pILuqY4yjIldbqsieI2jDng+ WMx1d5actZPgUL4xtQF1VX18 IG73hABmv4C8rXK6O7KsVDCk bmct crliaVF4EPHaPBRplW42Mq3p fDslNs1xHMVbICM7EZJbaNBb G6ZmcM6dMzFaFTPxVCWeH2Qr eHQt CRfbQ075MHufDeO6XIKcveOk M9QoCAHhkTdfWwN2v1X2Af1X SE84GT54QS80uDHla9H0lPW5 J3Bh AMQazimwxfbepSA3QLVnKPWb qN35Md0zsQmjNt6kUHHuPYF0 TKCteONhS7CmhU0xErLuYUYw MDAw I5UabPOhUZakE300UGjoTeR6 BRLjekOvR5ThCYRvyFymFbM7 q7G6Ff0YPl21PH03LV41rJVd c3R5 nYP5C1VuRLHmllsysqlodTA3 KZUvJCIqaH87Oc8gkNawVl1s MOClVGS6OJWdgYRnE3AmfM1r OiAj JKGkEQUtY7LtaUTqXKlsZ971 JZzwVlZ6XNPhizVlK4IwWVEt iLmcPtM4e2E5To8TTPtzhvz3 L3Rk PjwvdHI+EW46EWIaAY42zNMr xBGyi9sujSk3XiKgQJOyBSI1 yJerWLuvc6QjSGYwB40skOTy c2U6 IGN (more content not included)... Normal [facility] Reminder Messageson 01-03-20 Reminder Messages - From: BALJIT PISANO DO To: [facility] Clinical [facility] ([facility]); Sent: 01/01/2023 10:45:19 EDT ! Show up: [...] patient of results, patient verbalized understanding. Normal [facility] HBsAg Screen LCon 01-01-2023 HBsAg Screen LC Negative Invalid Interpretation Code Negative [facility] Comment on above: Result Comment: Perf ormed At: [facility] [address] [place], [place] [id number] Chai Apple PhD Ph:[phone] Performed By: #### 3 [id number], [id number], 1518356, [id number], [id number], [id number] ####[facility] (DEFAULT)[address] [place] [address] 51665 HCV Antibody LCon 01-01-2023 Hep C Virus Ab LC Non-Reactive Invalid Interpretation Code Non Reactive [facility] Comment on above: Result Comment: HCV antibody alone does not differentiate between previously resolved infection and active infection. Equivocal and Reactive HCV antibody results should be followed up with an HCV RNA test to support the diagnosis of active HCV infection. Performed At: [facility] [address] [place], [place] [id number] Chai Apple PhD Ph:[phone] Performed By: #### 3 [id number], [id number], 1970924, 79565471, 79722247, [id number] ####[facility] (DEFAULT)[address] [place] [address] 74176 Hep A Ab, Total LCon 023 Hep A Ab, Total LC Positive Abnormal Negative [facility] Comment on above: Result Comment: Perf ormed At: [address] [id number] [place], [place] [id number] Chai Apple PhD Ph:[phone] Performed By: #### 3 [id number], 71443937, 9115289, 46523282, 07617636, [id number] ####[facility] (DEFAULT)[address] [place] [address] 04342 Outside Recordson 01-01-2023 Outside Records [id number]#1.00OTG TIFF Normal [facility] Patient Handouton 01-01-2023 Patient Handout [id number]#1.00OTG TIFF Normal [facility] .Auto Diff 112-31-2022 Auto Zavala % 8 % Normal 1-12 [facility] Comment on above: Performed By: #### 3 [id number], 01833859, 4051034, 87829061, 55352923, [id number] ####[facility] (DEFAULT)[address] [place] [address] Baso Abs# 0.0 x10 Normal 0.0-0.2 [facility] Comment on above: Performed By: #### 3 3659976, 91083084, 9286210, 46478495, 55339625, [id number] ####[facility] (DEFAULT)[address] [place] [address] Basophils/100 WBC (Bld) 0.6 % Normal 0.2-2.0 [facility] Comment on above: Performed By: #### 3 8314249, 37893911, 2299028, 96448823, 51977140, [id number] ####[facility] (DEFAULT)[address] [place] [address] Eos Abs# 0.1 x10 Normal 0.0-0.4 [facility] Comment on above: Performed By: #### 3 8770538, 82894219, 7711561, 94616407, 67833966, [id number] ####[facility] (DEFAULT)[address] [place] [address]277 Eosinophils/100 WBC (Bld) 1.9 % Normal 0.9-4.0 [facility] Comment on above: Performed By: #### 3 0257604, 72200046, 3283172, 14518246, 58504412, [id number] ####[facility] (DEFAULT)[address] [place] [address] 17442 Lymph Abs# 1.8 x10 Normal 1.3-2.9 [facility] Comment on above: Performed By: #### 3 4915415, 17204351, 3676308, 06011566, 47107730, [id number] ####[facility] (DEFAULT)[address] [place] [address] 38426 Lymphocytes/100 WBC (Bld) 27 % Normal 14-48 [facility] Comment on above: Performed By: #### 3 2104957, 09873432, 8269315, 55892879, 02646331, [id number] ####[facility] (DEFAULT)[address] [place] [address] Zavala Abs# 0.5 x10 Normal 0.0-0.8 [facility] Comment on above: Performed By: #### 3 9927527, 40582009, 3520394, 48659260, 56375046, [id number] ####[facility] (DEFAULT)[address] [place] [address] Neut Abs# 4.3 x10 Normal 1.5-9.2 [facility] Comment on above: Performed By: #### 3 8971332, 70179159, 6776214, 39390517, 31932236, [id number] ####[facility] (DEFAULT)[address] [place] [address] Neutrophils/100 WBC (Bld) 63 % Normal 44-88 [facility] Comment on above: Performed By: #### 3 2615331, 57444500, 8004465, 84060753, 10898049, 6425093639 ####[facility] (DEFAULT)[address] [place] [address] CBC w/ Auto Diffon 3 Erythrocyte distribution width (RBC) [Ratio] 13.0 % Normal 11.5-15.0 [facility] Comment on above: Performed By: #### 3 7717022, 43273556, 5359818, 60325834, 86662512, [id number] ####[facility] (DEFAULT)[address] [place] [address] Hematocrit (Bld) [Volume fraction] 43.9 % Normal 34.8-51.9 [facility] Comment on above: Performed By: #### 3 6804383, 37193156, 4082799, 12277341, 08892809, [id number] ####[facility] (DEFAULT)[address] [place] [address] Hemoglobin (Bld) [Mass/Vol] 15.4 g/dL Normal 11.8-17.7 [facility] Comment on above: Performed By: #### 3 0257284, 64126645, 7093299, 50660757, 13442915, [id number] ####[facility] (DEFAULT)[address] [place] [address] Man Diff? Auto Invalid Interpretation Code [facility] Comment on above: Performed By: #### 3 0882130, 91825156, 3496106, 82527211, 52674659, [id number] ####[facility] (DEFAULT)[address] [place] [address] MCH (RBC) [Entitic mass] 30 pg Normal 24-34 [facility] Comment on above: Performed By: #### 3 2050493, 61200744, 0087557, 49453092, 54851998, [id number] ####[facility] (DEFAULT)[address] [place] [address] MCHC (RBC) [Mass/Vol] 35 g/dL Normal 26-[address] [facility] Comment on above: Performed By: #### 3 3734022, 68163008, 1347533, 16818852, 45497175, [id number] ####[facility] (DEFAULT)[address] [place] [address] MCV (RBC) [Entitic vol] 86 fL Normal 81-100 [facility] Comment on above: Performed By: #### 3 5674963, 78235869, 5795588, 60931155, 10546314, [id number] ####[facility] (DEFAULT)[address] [place] [address] Platelet 252 x10 Normal 138-427 [facility] Comment on above: Performed By: #### 3 3857194, 39247839, 2572843, 08152881, 48078866, [id number] ####[facility] (DEFAULT)[address] [place] [address] Platelet mean volume (Bld) [Entitic vol] 8.5 fL Normal 6.3-10.2 [facility] Comment on above: Performed By: #### 3 2661372, 01279576, 3107209, 48674532, 84512984, [id number] ####[facility] (DEFAULT)[address] [place] [address] RBC 5.08 x10 Normal 3.70-5.30 [facility] Comment on above: Performed By: #### 3 3374153, 47577757, 7844935, 64330442, 75258582, 0152340282 ####[facility] (DEFAULT)[address] [place] [address] WBC 6.8 x10 Normal 3.5-10.5 [facility] Comment on above: Performed By: #### 3 9293432, 52782929, 0364464, 03694936, 61626296, 1059540155 ####[facility] (DEFAULT)[address] [place] [address] 45804 Liver Enzymeson 12-31-2022 Alk Phos 62 IU/L Normal 32-91 [facility] Comment on above: Performed By: #### 3 9096401, 00094273, 1611999, 99967909, 56219454, 6368366416 ####[facility] (DEFAULT)[address] [place] [address] 58765 ALT [Catalytic activity/Vol] 60.0 U/L High 8.0-36.0 [facility] Comment on above: Performed By: #### 3 2282456, 25820545, 3951193, 68050984, 61906123, 6541504983 ####[facility] (DEFAULT)[address] [place] [address] 07809 AST [Catalytic activity/Vol] 41 U/L High 13-38 [facility] Comment on above: Performed By: #### 3 0450908, 75579760, 0575752, 11922765, 29388330, 5730763594 ####[facility] (DEFAULT)[address] [place] [address] Gamma glutamyl transferase [Catalytic activity/Vol] 26.0 U/L Normal 7.0-26.0 [facility] Comment on above: Performed By: #### 3 3653345, 10794111, 0951023, 29079197, 71682265, [id number] ####[facility] (DEFAULT)[address] [place] [address] Patient Handouton 12-30-2022 Patient Handout [id number]#1.00O TGTIFF Normal [facility] ELECTRIC ACCOUNTING MACHINE OPERATOR ANTIBODIESon 09-22-2022 ELECTRIC ACCOUNTING MACHINE OPERATOR Antibodies 0.3 AI Normal 0.0-0.9 [facility] Comment on above: Performed By: #### R NPAB #### [facility] [address] [place] [address] Dr. Radha Owens SJOGRENS ANTIBODIES (Anti SS A/B)on 09-22-2022 Sjogren's Anti-SS-A <0.2 Normal 0.0-0.9 [facility] Comment on above: Performed By: #### S AASSAB #### [facility] [address] [place] [address] Dr. Radha Owens Sjogren's Anti-SS-B <0.2 Normal 0.0-0.9 [facility] Comment on above: Performed By: #### S AASSAB #### [facility] [address] [place] [address] Dr. Radha Owens SLE PROFILE Bon 09-22-2022 TENA Direct Negative Normal Negative [facility] [place] [facility] Comment on above: Performed By: #### S LEPB #### [facility] [address] [place] [address] Dr. Radha Owens Anti-DNA (DS) Ab Qn 2 IU/mL Normal 0-9 [facility] Comment on above: Result Comment: Nega tive <5 Equivocal 5 - 9 Positive >9 Performed By: #### S LEPB #### [facility] [address] [place] [address] Dr. Radha Owens Antichromatin Antibodies <0.2 Normal 0.0-0.9 [facility] [place] [facility] Comment on above: Performed By: #### S LEPB #### [facility] [address] [place] [address] [address] Radha Owens Complement C3, Serum 161 mg/dL Normal 82-167 [facility] [place] [facility] Comment on above: Performed By: #### S LEPB #### [facility] [address] [place] [address] [address] Radha Owens Complement C4, Serum 23 mg/dL Normal 12-38 [facility] [place] [facility] Comment on above: Performed By: #### S LEPB #### [facility] [address] [place] [address] Dr. Radha Owens NEWBERRY ANTIBODIESon 3 Newberry Antibodies <0.2 Normal 0.0-0.9 [facility] Comment on above: Performed By: #### S MITHAB #### [facility] [address] [place] [address] Dr. Radha Owens RHEUMATOID FACTORon 09-21-19 23 RA Latex Turbid. <10.0 Normal <14.0 [facility] Comment on above: Performed By: #### R F ####[facility] [address] [place] [address]Dr. Radha Owens TENA by IFAon 09-18-2022 Antinuclear Antibodies, IFA Positive Abnormal [facility] [place] [facility] Comment on above: Result Comment: Nega tive <1:80 Borderline 1:80 Positive >1:80 Performed By: #### A NAIFA #### [facility] [address] [place] [address] Dr. Radha Owens Centriole Pattern Normal [facility] Comment on above: Performed By: #### A NAIFA #### [facility] [address] [place] [address] Dr. Radha Owens Centromere Pattern Normal [facility] Comment on above: Performed By: #### A NAIFA #### [facility] [address] [place] [address] [address] Radha Owens Homogeneous Pattern 1:320 Critically high [facility] Comment on above: Result Comment: ICAP nomenclature: AC-1 Performed By: #### A NAIFA #### [facility] [address] [place], [place] [address] Dr. Radha Owens Midbody Pattern Normal [facility] Comment on above: Performed By: #### A NAIFA #### [facility] [address] [place], [place] [address] Dr. Radha Owens Note: Comment Normal [facility] Comment on above: Result Comment: For more [...] titers Nucleosomes, Histones Drug-induced SLE Speckled Sm, ELECTRIC ACCOUNTING MACHINE OPERATOR, SCL-70, SLE,MCTD,PSS (diffuse form), SS-A/SS-B Sjogrens Nucleolar SCL-70, PM-1/SCL High titers Scleroderma, PM/DM Centromere Centromere PSS (limited form) w/Crest syndrome variable Nuclear Dot Sp100,s67-zsejve Primary Biliary Cirrhosis Nuclear GP210, Primary Biliary Cirrhosis Membrane subhash A,B,C Performed By: #### A NAIFA #### [facility] [address] [place] [address] Dr. Radha Owens Nuclear Dot Pattern Normal [facility] Comment on above: Performed By: #### A NAIFA #### [facility] [address] [place] [address] Dr. Radha Owens Nuclear Membrane Pattern Normal [facility] Comment on above: Performed By: #### A NAIFA #### [facility] [address] [place] [address] Dr. Radha Owens Nucleolar Pattern Normal [facility] Comment on above: Performed By: #### A NAIFA #### [facility] [address] [place] [address] Dr. Radha Owens PCNA Pattern Normal [facility] [place] [facility] Comment on above: Performed By: #### A NAIFA #### [facility] [address] [place] [address] Dr. Radha Owens Speckled Pattern Normal [facility] Comment on above: Performed By: #### A NAIFA #### [facility] [address] [place] [address] [address] Radha Owens Spindle Apparatus Pattern Normal [facility] [place] [facility] Comment on above: Performed By: #### A NAIFA #### [facility] [address] [place] [address] [address] Radha Owens RHEUMATOID FACTORon 09-17-19 RA Latex Turbid. <10.0 Normal <14.0 [facility] Comment on above: Performed By: #### R F ####[facility] [address] [place], [place] [address]PcDr. Radha Owens CBC AUTO DIFFon 09-15-2022 BASO # 0.0 103/ul Normal 0.0-0.1 [facility] [place] [facility] Comment on above: Performed By: #### C BC #### [facility] [address] [place] [address] Dr. Radha Owens Basophils/100 WBC (Bld) 0.6 % Normal 0.2-2.0 [facility] Comment on above: Performed By: #### C BC #### [facility] [address] [place] [address] [address] Radha Owens EO # 0.1 103/ul Normal 0.0-0.7 [facility] [place] [facility] Comment on above: Performed By: #### C BC #### [facility] [address] [place] [address] [address] Radha Owens Eosinophils/100 WBC (Bld) 1.8 % Normal 0.9-7.0 [facility] [place] [facility] Comment on above: Performed By: #### C BC #### [facility] [address] [place] [address] Dr. Radha Owens Erythrocyte distribution width (RBC) [Ratio] 12.3 % Normal 11.0-15.0 [facility] [place] [facility] Comment on above: Performed By: #### C BC #### [facility] [address] [place] [address] Dr. Radha Owens Hematocrit (Bld) [Volume fraction] 42.2 % Normal 42.0-54.0 [facility] [place] [facility] Comment on above: Performed By: #### C BC #### [facility] [address] [place] [address] Dr. Radha Owens Hemoglobin (Bld) [Mass/Vol] 14.3 g/dL Normal 14.0-18.0 [facility] [place] [facility] Comment on above: Performed By: #### C BC #### [facility] [address] [place] [address] Dr. Radha Owens IG # 0.02 10e3/ul Normal 0.00-0.03 [facility] [place] [facility] Comment on above: Performed By: #### C BC #### [facility] [address] [place] [address] Dr. Radha Owens IG % 0.3 % Normal 0.0-0.5 [facility] [place] [facility] Comment on above: Performed By: #### C BC #### [facility] [address] [place] [address] Dr. Radha Owens LYMPH # 1.8 103/ul Normal 1.2-3.8 [facility] [place] [facility] Comment on above: Performed By: #### C BC #### [facility] [address] [place] [address] Dr. Radha Owens Lymphocytes/100 WBC (Bld) 27.8 % Normal 20.5-60.0 [facility] [place] [facility] Comment on above: Performed By: #### C BC #### [facility] [address] [place] [address] Dr. Radha Owens MANUAL DIFF REQ NO Normal [facility] Comment on above: Performed By: #### C BC #### [facility] [address] [place] [address] Dr. Radha Owens MCH (RBC) [Entitic mass] 29.8 pg Normal 25.9-34.0 [facility] [place] [facility] Comment on above: Performed By: #### C BC #### [facility] [address] [place] [address] Dr. Radha Owens MCHC (RBC) [Mass/Vol] 33.9 g/dL Normal 29.9-35.2 [facility] [place] [facility] Comment on above: Performed By: #### C BC #### [facility] [address] [place] [address] [address] Radha Owens MCV (RBC) [Entitic vol] 87.9 fL Normal 80.0-94.0 [facility] Comment on above: Performed By: #### C BC #### [facility] [address] [place] [address] [address] Radha Owens MONO # 0.7 103/ul Normal 0.3-0.8 [facility] [place] [facility] Comment on above: Performed By: #### C BC #### [facility] [address] [place] [address] Dr. Radha Owens Monocytes/100 WBC (Bld) 11.3 % Normal 1.7-12.0 [facility] Comment on above: Performed By: #### C BC #### [facility] [address] [place] [address] Dr. Radha Owens NEUT # 3.8 103/ul Normal 1.4-6.5 [facility] [place] [facility] Comment on above: Performed By: #### C BC #### [facility] [address] [place] [address] Dr. Radha Owens Neutrophils/100 WBC (Bld) 58.2 % Normal 43.0-75.0 [facility] [place] [facility] Comment on above: Performed By: #### C BC #### [facility] [address] [place] [address] Dr. Radha Owens Platelet mean volume (Bld) [Entitic vol] 10.4 fL Normal 9.5-13.5 [facility] [place] [facility] Comment on above: Performed By: #### C BC #### [facility] [address] [place] [address] Dr. Radha Owens PLT 235 103/ul Normal 150-450 [facility] [place] [facility] Comment on above: Performed By: #### C BC #### [facility] [address] [place] [address] Dr. Radha Owens RBC 4.80 106/ul Normal 4.70-6.10 [facility] [place] [facility] Comment on above: Performed By: #### C BC #### [facility] [address] [place] [address] Dr. Radha Owens WBC 6.5 103/ul Normal 4.0-11.0 [facility] [place] [facility] Comment on above: Performed By: #### C BC #### [facility] [address] [place] [address] Dr. Radha Owens PROF 14(COMP METB)on 023 Albumin [Mass/Vol] 3.9 g/dL Normal 3.4-5.0 [facility] Comment on above: Performed By: #### C MP, URIC #### [facility] [address] [place] [address] Dr. Radha Owens Albumin/Globulin [Mass ratio] 1.0 {ratio} Normal [facility] [place] [facility] Comment on above: Performed By: #### C MP, URIC #### [facility] [address] [place] [address] Dr. Radha Owens ALP [Catalytic activity/Vol] 73 U/L Normal 46-116 [facility] [place] [facility] Comment on above: Performed By: #### C MP, URIC #### [facility] [address] [place] [address] Dr. Rahda Owens ALT [Catalytic activity/Vol] 66 U/L Critically high 16-63 [facility] [place] [facility] Comment on above: Performed By: #### C MP, URIC #### [facility] [address] [place] [address] Dr. Radha Owens Anion gap [Moles/Vol] 13.2 mmol/L Normal [facility] Comment on above: Performed By: #### C MP, URIC #### [facility] [address] [place] [address] Dr. Radha Owens AST [Catalytic activity/Vol] 31 U/L Normal 15-37 [facility] [place] [facility] Comment on above: Performed By: #### C MP, URIC #### [facility] [address] [place] [address] Dr. Radha Owens Bilirubin [Mass/Vol] 0.8 mg/dL Normal 0.2-1.0 [facility] [place] [facility] Comment on above: Performed By: #### C MP, URIC #### [facility] [address] [place] [address] Dr. Radha Owens Calcium [Mass/Vol] 9.2 mg/dL Normal 8.5-10.1 [facility] Comment on above: Performed By: #### C MP, URIC #### [facility] [address] [place] [address] Dr. Radha Owens Chloride [Moles/Vol] 107 mmol/L Normal 98-107 [facility] [place] [facility] Comment on above: Performed By: #### C MP, URIC #### [facility] [address] [place] [address] Dr. Radha Owens CO2 [Moles/Vol] 26.0 mmol/L Normal 21.0-32.0 [facility] Comment on above: Performed By: #### C MP, URIC #### [facility] [address] [place] [address] Dr. Radha Owens Creatinine [Mass/Vol] 0.89 mg/dL Normal 0.70-1.30 [facility] [place] [facility] Comment on above: Performed By: #### C MP, URIC #### [facility] [address] [place] [address] Dr. Radha Owens EGFR-AF FIJIAN >60 Normal >=60 [facility] Comment on above: Performed By: #### C MP, URIC #### [facility] [address] [place] [address] Dr. Radha Owens EGFR-NON AF FIJIAN >60 Normal >=60 [facility] [place] [facility] Comment on above: Performed By: #### C MP, URIC #### [facility] [address] [place] [address] Dr. Radha Owens Globulin (S) [Mass/Vol] 4.1 g/dL Normal [facility] Comment on above: Performed By: #### C MP, URIC #### [facility] [address] [place] [address] Dr. Radha Owens Glucose [Mass/Vol] 99 mg/dL Normal 74-106 [facility] Comment on above: Performed By: #### C MP, URIC #### [facility] [address] [place] [address] Dr. Radha Owens Potassium [Moles/Vol] 4.2 mmol/L Normal 3.5-5.1 [facility] [place] [facility] Comment on above: Performed By: #### C MP, URIC #### [facility] [address] [place] [address] Dr. Radha Owens Protein [Mass/Vol] 8.0 g/dL Normal 6.4-8.2 [facility] Comment on above: Performed By: #### C MP, URIC #### [facility] [address] [place] [address] Dr. Radha Owens Sodium [Moles/Vol] 142 mmol/L Normal 136-145 [facility] Comment on above: Performed By: #### C MP, URIC #### [facility] [address] [place] [address] Dr. Radha Owens Urea nitrogen [Mass/Vol] 13.0 mg/dL Normal 6.4-19.3 [facility] Comment on above: Performed By: #### C MP, URIC #### [facility] [address] [place] [address] Dr. Radha Owens Urea nitrogen/Creatinine [Mass ratio] 14.6 mg/mg Normal [facility] Comment on above: Performed By: #### C MP, URIC #### [facility] [address] [place] [address] Dr. Radha Owens [facility] 2022 SED RATE 12 mm/hr Normal <=15 [facility] Comment on above: Performed By: #### S EDR #### [facility] [address] [place] [address] Dr. Radha Owens URIC ACID SERUMon 09-15-2022 Urate [Mass/Vol] 5.9 mg/dL Normal 3.5-7.2 [facility] Comment on above: Performed By: #### C MP, URIC #### [facility] [address] [place] [address] Dr. 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 TECHNIQUE: Right knee x-ray: 2 view(s). FINDINGS: Bones are normal density. No fracture, no bone destruction. Small knee effusion noted. Subcutaneous edema is seen. IMPRESSION: 1. No acute traumatic osseous pathology 2. Subcutaneous edema, possible small knee effusion Normal [facility] XR ANKLE 3 VIEWS - LEFTon [...] Noriega MD on 12/25/2017 2:18 PM Normal [facility] Vital Signs Date Time Vital Sign Value Performing Clinician Facility 03-22-2024 11:15-0500 Diastolic blood pressure 89 mm[Hg] Leatha Diaz APRN Work Phone: [facility] 03-22-2024 11:15-0500 Heart rate 84 /min Leatha Diaz APRN Work Phone: [facility] 03-22-2024 11:15-0500 Respiratory rate 16 /min Leatha Diaz APRN Work Phone: [facility] 03-22-2024 11:15-0500 SaO2% (BldA) [Mass fraction] 99 % Leatha Diaz APRN Work Phone: [facility] 03-22-2024 11:15-0500 Systolic blood pressure 142 mm[Hg] Leatha Diaz APRN Work Phone: [facility] 03-22-2024 09:53-0500 Body height 182.88 cm Leatha Diaz APRN Work Phone: [facility] 03-22-2024 09:53-0500 Body weight 181.43 kg Leatha Diaz APRN Work Phone: [facility] 02-25-2024 15:32-0400 Body height 182.88 cm [facility] 02-25-2024 15:32-0400 Body mass index (BMI) [Ratio] 57.1 kg/m2 [facility] 02-25-2024 15:32-0400 Body temperature 97.1 [degF] [facility] 02-25-2024 15:32-0400 Body weight 190.96 kg [facility] 02-25-2024 15:32-0400 Diastolic blood pressure 86 mm[Hg] [facility] 02-25-2024 15:32-0400 Heart rate 73 /min [facility] 02-25-2024 15:32-0400 SaO2% (BldA) [Mass fraction] 97 % [facility] 02-25-2024 15:32-0400 Systolic blood pressure 132 mm[Hg] [facility] 02-09-2024 09:01-0400 Body height 182.88 cm [facility] 02-09-2024 09:01-0400 Body mass index (BMI) [Ratio] 57.4 kg/m2 [facility] 02-09-2024 09:01-0400 Body weight 192.09 kg [facility] 02-09-2024 09:01-0400 Diastolic blood pressure 81 mm[Hg] [facility] 02-09-2024 09:01-0400 Heart rate 110 /min [facility] 02-09-2024 09:01-0400 Respiratory rate 20 /min [facility] 02-09-2024 09:01-0400 SaO2% (BldA) [Mass fraction] 94 % [facility] 02-09-2024 09:01-0400 Systolic blood pressure 126 mm[Hg] [facility] 01-28-2024 10:26-0400 Body height 182.88 cm [facility] 01-28-2024 10:26-0400 Body mass index (BMI) [Ratio] 57.1 kg/m2 [facility] 01-28-2024 10:26-0400 Body temperature 97.8 [degF] [facility] 01-28-2024 [id number] Body weight 190.96 kg [facility] 01-28-2024 10:26-0400 Diastolic blood pressure 84 mm[Hg] [facility] 01-28-2024 10:26-0400 Heart rate 110 /min [facility] 01-28-2024 10:26-0400 SaO2% (BldA) [Mass fraction] 96 % [facility] 01-28-2024 10:26-0400 Systolic blood pressure 130 mm[Hg] [facility] 12-31-2023 10:31-0400 Body height 182.88 cm [facility] 12-31-2023 10:31-0400 Body mass index (BMI) [Ratio] 56.2 kg/m2 [facility] 12-31-2023 [id number] Body weight 188.24 kg [facility] 12-31-2023 10:31-0400 Diastolic blood pressure 80 mm[Hg] [facility] 12-31-2023 10:31-0400 Heart rate 97 /min [facility] 12-31-2023 10:31-0400 SaO2% (BldA) [Mass fraction] 98 % [facility] 12-31-2023 10:31-0400 Systolic blood pressure 116 mm[Hg] [facility] 12-09-2023 11:15-0400 Body height 182.88 cm [facility] 12-09-2023 11:15-0400 Body mass index (BMI) [Ratio] 54.8 kg/m2 [facility] 12-09-2023 11:15-0400 Body weight 183.42 kg [facility] 12-09-2023 11:15-0400 Diastolic blood pressure 92 mm[Hg] [facility] 12-09-2023 11:15-0400 Heart rate 108 /min [facility] 12-09-2023 11:15-0400 Respiratory rate 20 /min [facility] 12-09-2023 11:15-0400 SaO2% (BldA) [Mass fraction] 98 % [facility] 12-09-2023 11:15-0400 Systolic blood pressure 144 mm[Hg] [facility] 11-09-2023 08:32-0400 Body height 182.88 cm APPLIQUERJyoti Quintanillaacher Work Phone: [facility] 11-09-2023 08:32-0400 Body mass index (BMI) [Ratio] 53.8 kg/m2 APPLIQUERJyoti Quintanillaacher Work Phone: [facility] 11-09-2023 08:32-0400 Body weight 180.07 kg APPLIQUERJyoti Quintanillaacher Work Phone: [facility] 11-09-2023 08:32-0400 Diastolic blood pressure 78 mm[Hg] APPLIQUERJyoti Quintanillaacher Work Phone: [facility] 11-09-2023 08:32-0400 Heart rate 91 /min APPLIQUERJyoti Quintanillaacher Work Phone: [facility] 11-09-2023 08:32-0400 SaO2% (BldA) [Mass fraction] 98 % APPLIQUERJyoti Quintanillaacher Work Phone: [facility] 11-09-2023 08:32-0400 Systolic blood pressure 118 mm[Hg] REUBEN Quintanillaacher Work Phone: [facility] 10-22-2023 09:32-0400 Body height 182.88 cm APPLIQUERJyoti Quintanillaacher Work Phone: [facility] 10-22-2023 09:32-0400 Body mass index (BMI) [Ratio] 54.5 kg/m2 APPLIQUERJyoti Quintanillaacher Work Phone: [facility] 10-22-2023 09:32-0400 Body weight 182.37 kg APPLIQUERJyoti Quintanillaacher Work Phone: [facility] 10-22-2023 09:32-0400 Diastolic blood pressure 71 mm[Hg] APPLIQUER Leatha Lucasrbacher Work Phone: [facility] 10-22-2023 09:32-0400 Heart rate 114 /min APPLIQUERJyoti Zavalarbacher Work Phone: [facility] 10-22-2023 09:32-0400 Respiratory rate 20 /min APPLIQUERJyoti Zavalarbacher Work Phone: [facility] 10-22-2023 09:32-0400 SaO2% (BldA) [Mass fraction] 95 % APPLIQUER Leatha Zavalarbacher Work Phone: [facility] 10-22-2023 09:32-0400 Systolic blood pressure 120 mm[Hg] APPLIQUER Leatha Zavalarbacher Work Phone: [facility] 10-12-2023 15:58-0400 Body height 182.88 cm APPLIQUER Leatha Quintanillaacher Work Phone: [facility] 10-12-2023 15:58-0400 Body mass index (BMI) [Ratio] 54.2 kg/m2 APPLIQUERJyoti Quintanillaacher Work Phone: [facility] 10-12-2023 15:58-0400 Body weight 181.43 kg APPLIQUERJyoti Zavalarbacher Work Phone: [facility] 10-12-2023 15:58-0400 Diastolic blood pressure 76 mm[Hg] APPLIQUER Leatha Zavalarbacher Work Phone: [facility] 10-12-2023 15:58-0400 Heart rate 112 /min APPLIQUER Leatha Zavalarbacher Work Phone: [facility] 10-12-2023 15:58-0400 SaO2% (BldA) [Mass fraction] 98 % APPLIQUER Leatha Lucasrbacher Work Phone: [facility] 10-12-2023 15:58-0400 Systolic blood pressure 118 mm[Hg] APPLIQUERJyoti Zhang Lucasrbacher Work Phone: [facility] 09-24-2023 14:27-0400 Body height 182.88 cm APPLIQUERJyoti Zavalarbacher Work Phone: [facility] 09-24-2023 14:27-0400 Body mass index (BMI) [Ratio] 53.4 kg/m2 APPLIQUERJyoti Zhang Lucasrbacher Work Phone: [facility] 09-24-2023 14:27-0400 Body weight 178.71 kg APPLIQUERJyoti Quintanillaacher Work Phone: [facility] 09-24-2023 14:27-0400 Diastolic blood pressure 78 mm[Hg] APPLIQUER Leatha Lucasrbacher Work Phone: [facility] 09-24-2023 14:27-0400 Heart rate 110 /min APPLIQUERJyoti Quintanillaacher Work Phone: [facility] 09-24-2023 14:27-0400 SaO2% (BldA) [Mass fraction] 98 % APPLIQUERJyoti Quintanillaacher Work Phone: [facility] 09-24-2023 14:27-0400 Systolic blood pressure 128 mm[Hg] APPLIQUER Leatha Lucasmarlenacher Work Phone: [facility] 09-10-2023 10:[id number] Body height 182.88 cm APPLIQUER Leatha Zavalarbacher Work Phone: [facility] 09-10-2023 10:28040 Body mass index (BMI) [Ratio] 54.3 kg/m2 APPLIQUER Leatha Lucasrbacher Work Phone: [facility] 09-10-2023 10:[id number] Body weight 181.6 kg APPLIQUERJyoti JamilLeatha Socorroacher Work Phone: [facility] 09-10-2023 10:28-0400 Diastolic blood pressure 87 mm[Hg] APPLIQUER Leatha Lucasrbacher Work Phone: [facility] 09-10-2023 10:28-0400 Heart rate 102 /min APPLIQUER Leatha Zavalarbacher Work Phone: [facility] 09-10-2023 10:28-0400 Respiratory rate 20 /min APPLIQUER Leatha Lucasrbacher Work Phone: [facility] 09-10-2023 10:28-0400 SaO2% (BldA) [Mass fraction] 97 % APPLIQUER Leatha Lucasmarlenacher Work Phone: [facility] 09-10-2023 10:28-0400 Systolic blood pressure 134 mm[Hg] APPLIQUER Leatha Lucasrbacher Work Phone: [facility] 08-27-2023 10:38-0400 Body height 182.88 cm APPLIQUER Leatha Lucasmarlenacher Work Phone: [facility] 08-27-2023 10:38-0400 Body mass index (BMI) [Ratio] 54.5 kg/m2 APPLIQUER Leatha Quintanillaacher Work Phone: [facility] 08-27-2023 10:38-0400 Body weight 182.34 kg APPLIQUER Leatha Lucasmarlenacher Work Phone: [facility] 08-27-2023 10:38-0400 Diastolic blood pressure 74 mm[Hg] APPLIQUER Leatha Lucasrbacher Work Phone: [facility] 08-27-2023 10:38-0400 Heart rate 104 /min APPLIQUER Leatha Lucasrbacher Work Phone: [facility] 08-27-2023 10:38-0400 SaO2% (BldA) [Mass fraction] 98 % APPLIQUERJyoti RmLeatha Socorroacher Work Phone: [facility] 08-27-2023 10:38-0400 Systolic blood pressure 116 mm[Hg] REUBEN Zavalamarlenchito Work Phone: [facility] 08-13-2023 10:02-0400 Body height 182.88 cm DO Baljit House Work Phone: [facility] 08-13-2023 10:02-0400 Body mass index (BMI) [Ratio] 55.2 kg/m2 DO Baljit House Work Phone: [facility] 08-13-2023 10:02-0400 Body weight 184.75 kg DO Baljit House Work Phone: [facility] 08-13-2023 10:02-0400 Diastolic blood pressure 49 mm[Hg] DO Baljit Norris Work Phone: [facility] 08-13-2023 10:02-0400 Heart rate 99 /min DO Baljit Norris Work Phone: [facility] 08-13-2023 10:02-0400 Respiratory rate 20 /min DO Baljit Pisano Work Phone: [facility] 08-13-2023 10:02-0400 SaO2% (BldA) [Mass fraction] 96 % DO Baljit Norris Work Phone: [facility] 08-13-2023 10:02-0400 Systolic blood pressure 121 mm[Hg] DO Baljit House Work Phone: [facility] 07-21-2023 09:16-0400 Body height 182.9 cm Pattie Shenmarvine V, PA Work Phone: [employer] 07-21-2023 09:16-0400 Body mass index (BMI) [Ratio] 55.2 kg/m2 Pattie Shendge V, PA Work Phone: [facility] 07-21-2023 09:16-0400 Body weight 184.61 kg Pattie Shendge V, PA Work Phone: [facility] 07-21-2023 09:16-0400 Heart rate 85 /min Pattie Shendge V, PA Work Phone: [facility] 07-21-2023 09:16-0400 Respiratory rate 16 /min Pattie Shendge V, PA Work Phone: [facility] 07-07-2023 13:25-0500 Body height 185.42 cm DO Baljit House Work Phone: [facility] 07-07-2023 13:25-0500 Body mass index (BMI) [Percentile] Per age and sex 99.9 % DO Baljit House Work Phone: [facility] 07-07-2023 13:25-0500 Body mass index (BMI) [Ratio] 53.1 kg/m2 DO Baljit House Work Phone: [facility] 07-07-2023 13:25-0500 Body weight 182.79 kg DO Baljit House Work Phone: [facility] 07-07-2023 13:25-0500 Diastolic blood pressure 82 mm[Hg] DO Baljit House Work Phone: [facility] 07-07-2023 13:25-0500 Heart rate 97 /min DO Baljit House Work Phone: [facility] 07-07-2023 13:25-0500 SaO2% (BldA) [Mass fraction] 98 % DO Baljit House Work Phone: [facility] 07-07-2023 13:25-0500 Systolic blood pressure 126 mm[Hg] DO Baljit House Work Phone: [facility] 05-26-2023 14:15-0500 Body height 185.42 cm Imad Asaad Other [facility] 05-26-2023 14:15-0500 Body mass index (BMI) [Ratio] 51.45 kg/m2 Imad Asaad Other [employer] Other 05-26-2023 14:15-0500 Body weight 176.9 kg Imad Asaad Other [facility] 04-21-2023 13:45-0500 Body height 185.42 cm Imad Asaad Other [employer] Other 04-21-2023 13:45-0500 Body mass index (BMI) [Ratio] 51.84 kg/m2 Imad Asaad Other [employer] Other 04-21-2023 13:45-0500 Body weight 178.26 kg Imad Asaad Other [employer] Other 04-21-2023 13:45-0500 Diastolic blood pressure 82 mm[Hg] Imad Asaad Other [employer] Other 04-21-2023 13:45-0500 Systolic blood pressure 147 mm[Hg] Imad Asaad Other [employer] Other 03-19-2023 13:00-0500 Body height 185.42 cm Imad Asaad Other [employer] Other 03-19-2023 13:00-0500 Body mass index (BMI) [Ratio] 51.87 kg/m2 Imad Asaad Other [employer] Other 03-19-2023 13:00-0500 Body weight 178.36 kg Imad Asaad Other [employer] Other 03-19-2023 13:00-0500 Diastolic blood pressure 68 mm[Hg] Imad Asaad Other [employer] Other 03-19-2023 13:00-0500 Systolic blood pressure 76 mm[Hg] Imad Asaad Other [employer] Other 02-04-2022 10:55-0400 Body height 179.07 cm Devika King Other [employer] Other 02-04-2022 10:55-0400 Body mass index (BMI) [Ratio] 44.55 kg/m2 Devika King Other [employer] Other 02-04-2022 10:55-0400 Body temperature 97.5 [degF] Devika King Other [employer] Other 02-04-2022 10:55-0400 Body weight 142.88 kg Devika King Other [employer] Other 02-04-2022 10:55-0400 Respiratory rate 18 /min Devika King Other [employer] Other 02-04-2022 10:55-0400 SaO2% (BldA) [Mass fraction] 97 % Devika King Other [employer] Other Encounters Encounter Date Encounter Type Care Provider Facility Start: 03-22-2024 Non-patient / Non-visit Leatha Diaz APRN Work Phone: [facility] G[facility] Work Phone: Start: 03-22-2024 End: 03-22-2024 Admission to same day surgery center Leatha Diaz APRN Work Phone: [facility] Work Phone: Start: 03-22-2024 End: 03-22-2024 ambulatory Leatha Diaz APPLIQUER Work Phone: [facility] Work Phone: Start: 02-25-2024 End: 02-25-2024 ambulatory [facility] Work Phone: Start: 02-25-2024 End: 02-25-2024 Patient encounter procedure [facility] Work Phone: Start: 02-09-2024 End: 02-09-[address] [facility] Work Phone: Start: 02-09-2024 End: 02-09-2024 Patient encounter procedure [facility] Work Phone: Start: 01-28-2024 End: 01-28-2024 ambulatory [facility] Work Phone: Start: 01-28-2024 End: 01-28-2024 Patient encounter procedure [facility] Work Phone: Start: 01-26-2024 End: 01-26-2024 ambulatory [facility] Start: 01-24-2024 End: 01-24-2024 Emergency department patient visit [facility] Start: 01-22-2024 End: 01-23-2024 Emergency department patient visit [facility] Start: 01-21-2024 End: 01-21-2024 Emergency department patient visit [facility] Start: 12-31-2023 End: 12-31-2023 ambulatory [facility] Work Phone: Start: 12-31-2023 End: 12-31-2023 Patient encounter procedure [facility] Work Phone: Start: 12-15-2023 End: 12-15-2023 ambulatory [facility] Work Phone: Start: 12-15-2023 End: 12-15-2023 Patient encounter procedure [facility] Work Phone: Start: 12-09-2023 End: 12-09-2023 ambulatory [facility] Work Phone: Start: 12-09-2023 End: 12-09-2023 Patient encounter procedure [facility] Work Phone: Start: 11-09-2023 End: 11-09-2023 ambulatory APPLIQUERJyoti Diaz Work Phone: [facility] Work Phone: Start: 11-09-2023 End: 11-09-2023 Patient encounter procedure REUBEN Diaz Work Phone: [facility] Work Phone: Start: 10-30-2023 End: 10-31-2023 Emergency department patient visit [facility] Start: 10-22-2023 End: 10-22-2023 ambulatory APPLIQUERJyoti Diaz Work Phone: [facility] Work Phone: Start: 10-22-2023 End: 10-22-2023 Patient encounter procedure REUBEN Stewartr Work Phone: [facility] Work Phone: Start: 10-12-2023 End: 10-12-2023 ambulatory APPLIQUERJyoti Diaz Work Phone: [facility] Work Phone: Start: 10-12-2023 End: 10-12-2023 Patient encounter procedure REUBEN Quintanillaacher Work Phone: [facility] Work Phone: Start: 10-07-2023 End: 10-08-2023 Emergency department patient visit [facility]JIT [facility] Start: 09-25-2023 End: 09-25-2023 ambulatory BALJIT [facility] Start: 09-24-2023 End: 09-24-2023 Patient encounter procedure REUBEN Zhang Emily Work Phone: [facility] Work Phone: Start: 09-10-2023 End: 09-10-2023 Patient encounter procedure REUBEN Zhang Emily Work Phone: [facility] Work Phone: Start: 08-27-2023 End: 08-27-2023 ambulatory REUBEN Zhang Emily Work Phone: [facility] Work Phone: Start: 08-27-2023 End: 08-27-2023 Patient encounter procedure REUBEN Zhang Emily Work Phone: [facility] Work Phone: Start: 08-19-2023 End: 08-19-2023 ambulatory APPLIQUERJyoti Zhang Emily Work Phone: [facility] Work Phone: Start: 08-19-2023 End: 08-19-2023 Patient encounter procedure REUBEN Zhang Emily Work Phone: [facility] Work Phone: Start: 08-13-2023 End: 08-13-2023 Patient encounter procedure DO Baljit [place] Work Phone: [facility] Work Phone: Start: 08-13-2023 End: 08-13-2023 ambulatory DO Baljit House Work Phone: [facility] Work Phone: Start: 08-13-2023 End: 08-13-2023 ambulatory DO Baljit Pisano Work Phone: [facility] Work Phone: Start: 08-13-2023 End: 08-13-2023 Patient encounter procedure DO Baljit Pisano Work Phone: [facility] Work Phone: Start: 08-07-2023 Non-patient / Non-visit DO Baljit Pisano Work Phone: [facility] Work Phone: Start: 07-21-2023 End: 07-21-2023 ambulatory PATTIE SHENDGE V [facility] Start: 07-21-2023 End: 07-21-2023 Office outpatient new 30 minutes Pattie Shendge PA Work Phone: [facility] Comment on above: Positive TENA (antinu clear antibody) (Primary Dx); Chronic fatigue; Pain in both hands; Bilateral carpal tunnel syndrome Start: 07-21-2023 End: 07-21-2023 ambulatory PATTIE SHENDGE V [facility] Start: 07-08-2023 Non-patient / Non-visit DO Baljit Pisano Work Phone: [facility] Work Phone: Start: 07-07-2023 End: 07-07-2023 Patient encounter procedure DO Baljit Pisano Work Phone: [facility] Work Phone: Start: 06-30-2023 End: 07-01-2023 Emergency department patient visit [facility] Start: 05-26-2023 End: 05-26-2023 ambulatory Imad Asaad Other [facility] [employer] Other Start: 05-26-2023 Office outpatient visit 25 minutes Imad Asaad [facility] Start: 05-26-2023 End: 05-26-2023 Patient encounter procedure DO Baljit House Work Phone: [facility] Start: 05-19-2023 End: 05-19-2023 Patient encounter procedure DO Baljit House Work Phone: [facility] [address] Work Phone: Start: 05-19-2023 End: 05-19-2023 ambulatory DO Baljit House Work Phone: [facility] Work Phone: Start: 04-29-2023 End: 04-30-2023 ambulatory BALJIT P HOUSE Facility:[facility] Start: 04-27-2023 End: 04-27-2023 ambulatory Imad Asaad Other [employer] Other Start: 04-27-2023 Telephone encounter Imad Asaad [facility] Start: 04-21-2023 End: 04-21-2023 Patient encounter procedure DO Baljit House Work Phone: [facility] Work Phone: Start: 04-21-2023 End: 04-21-2023 ambulatory DO Baljit House Work Phone: [facility] Work Phone: Start: 04-21-2023 Office outpatient new 45 minutes Imad Asaad [facility] Start: 04-07-2023 End: 04-08-2023 ambulatory BALJIT P HOUSE Facility:[facility] Start: 04-01-2023 End: 04-01-2023 ambulatory DO Baljit House Work Phone: [facility] Work Phone: Start: 04-01-2023 End: 04-01-2023 Patient encounter procedure DO Baljit House Work Phone: [facility] Work Phone: Start: 03-23-2023 End: 03-23-2023 ambulatory Imad Asaad Other [employer] Other Start: 03-23-2023 Telephone encounter Imad Asaad [facility] Start: 03-19-2023 Office outpatient new 45 minutes Imad Asaad [facility] Start: 03-19-2023 End: 03-19-2023 ambulatory DO Baljit Pisano Work Phone: [employer] Other Start: 03-19-2023 End: 03-19-2023 Patient encounter procedure DO Baljit House Work Phone: [facility] Work Phone: Start: 02-12-2023 End: 02-13-2023 ambulatory BALJIT PISANO Facility[facility] Start: 01-28-2023 End: 01-29-2023 ambulatory BALJIT PISANO Facility:[facility] Start: 01-09-2023 End: 01-10-2023 ambulatory BALJIT PISANO [facility] Start: 01-07-2023 End: 01-08-2023 ambulatory [facility]IT [facility]IS[facility]O [facility] Start: 12-31-2022 End: 01-01-2023 ambulatory BALJIT PISANO [facility] Start: 12-30-2022 End: 12-31-2022 ambulatory Rafita Stover MD [facility] Start: 09-19-2022 End: 09-20-[address] BALJIT PISANO Facility:[facility] Start: 09-15-2022 End: 09-16-[address] BALJIT PISANO Facility:[facility] Start: 07-03-2022 End: 07-04-[address] BALJIT PISANO Facility:[facility] Start: 02-04-2022 End: 02-04-2022 ambulatory Devika King Other [employer] Other Start: 02-04-2022 Office outpatient new 30 minutes Devika King [facility] Start: 12-25-2017 End: 12-26-2017 Patient encounter BALJIT PISANO [facility] Procedures Date Procedure Procedure Detail Performing Clinician Start: 03-22-2024 Esophagogastroduodenoscopy Leatha mcgrath APRN Work Phone: Start: 05-19-2023 Radiography of thoracic spine DO [facility] [place] Work Phone: Start: 05-19-2023 X-ray of both knees DO Baljit [place] Work Phone: Start: 04-01-2023 Ultrasound elastography of liver DO [facility] Work Phone: Plan of Treatment Date Care Activity Detail Author Start: 01-03-2026 DTaP,Tdap and Td Vaccines (7 - Td or Tdap) DTaP,Tdap and Td Vaccines (7 - Td or Tdap) [facility] Start: 07-20-2024 Adult BMI Screening Adult BMI Screen ing [facility] Start: 07-20-2024 Tobacco Screening Tobacco Screening [facility] Start: 03-22-2024 [facility] Start: 01-28-2024 Patient referral [facility] Work Phone: Start: 10-22-2023 End: 10-22-2023 Telemedicine consultation with patient 10/22/2023 9:30 AM EDT Tele[facility]icine [facility] [address] [place] [phone] [place] [address] [place] [phone] [facility] Start: 08-13-2023 Patient referral [facility] Work Phone: Start: 08-13-2023 Insulin [Units/volum e] in Serum or Plasma [facility] Start: 07-21-2023 End: 07-20-2024 [facility] Neurology Routine Pain in both hands Bilateral carpal tunnel syndrome Expected: 07/21/2023 (Approximate), Expires: 07/20/2024 [facility] Work Phone: Comment on above: Expected: 07/21/2023 (Approximate), Expires: 07/20/2024 Start: 07-21-2023 End: 07-20-2024 XR Bones Limited Survey Views [facility] Comment on above: Expected: 07/21/2023 , Expires: 07/20/2024 Start: 05-19-2023 Hemolytic complement CH50 level [facility] Start: 05-19-2023 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 [facility] Start: 05-19-2023 [facility] Start: 04-01-2023 [facility] Start: 01-09-2023 Influenza vaccination Influenza Vacc ine [facility] Start: 07-11-2021 Adult BMI Follow Up Plan Adult BMI Follow Up Plan [facility] Start: 2015 Depression Screening Depression Scre ening [facility] Actin smooth muscle IgG Ab [Units/volume] in Serum [facility] Alpha 1 antitrypsin [Mass/volume] in Serum or Plasma [facility] Alpha 1 antitrypsin phenotyping [Identifier] in Serum or Plasma by Immunofixation [facility] Ceruloplasmin [Mass/volume] in Serum or Plasma [facility] CT Abdomen and Pelvi s WO and W contrast IV [facility] CT Abdomen WO and W contrast IV [facility] Fibrillarin Ab [Presence] in Serum [facility] Hemoglobin.gastroint jhon nal [Presence] in Stool [facility] Hepatitis A virus antibody, IgM type [facility] Hepatitis B core antibody measurement [facility] Hepatitis B core antibody measurement, IgM type [facility] Hepatitis B virus DN A [#/volume] (viral load) in Serum or Plasma by GITA with probe detection [facility] Hepatitis B virus DN A [log units/volume] (viral load) in Serum or Plasma by GITA with probe detection [facility] Hepatitis B virus DN A [Units/volume] (viral load) in Serum or Plasma by GITA with probe detection [facility] Hepatitis B virus surface Ab [Presence] in Serum [facility] Hepatitis B virus surface Ab [Units/volume] in Serum [facility] Hepatitis B virus surface Ag [Presence] in Serum or Plasma by Immunoassay [facility] Hepatitis C virus Ig G Ab [Presence] in Serum or Plasma by Immunoassay [facility] HFE gene mutations f ound [Identifier] in Blood or Tissue by Molecular genetics method Nominal [facility] Homogenous nuclear A b pattern [Titer] in Serum [facility] IgG [Mass/volume] in Serum or Plasma [facility] Lipoprotein a [Moles/volume] in Serum or Plasma [facility] Mitochondria M2 IgG Ab [Units/volume] in Serum [facility] Nuclear Ab [Titer] i n Serum [facility] Patient Education Hemorrhoids (D C) Esophagitis Know your Meds [facility] Work Phone: Patient referral [facility] Work Phone: PM-SCL extractable nuclear Ab [Mass/volume] in Serum by Immune diffusion (ID) [facility] RNA polymerase III I gG Ab [Units/volume] in Serum or Plasma by Immunoassay [facility] Th-To Ab [Units/volu me] in Serum by Line blot [facility] Immunizations Immunization Date Immunization Notes Care Provider Fa [facility] 12-14-2020 meningococcal oligosaccharide (groups A, C, Y and W-135) diphtheria toxoid conjugate vaccine (MCV4O) DO [employer] Work Phone: [facility] 01-04-2016 meningococcal oligosaccharide (groups A, C, Y and W-135) diphtheria toxoid conjugate vaccine (MCV4O) DO [employer] Work Phone: [facility] 01-04-2016 tetanus toxoid, redu sia diphtheria toxoid, and acellular pertussis vaccine, adsorbed REUBEN Diaz Work Phone: [facility] 01-18-2015 meningococcal oligosaccharide (groups A, C, Y and W-135) diphtheria toxoid conjugate vaccine (MCV4O) DO [employer] Work Phone: [facility] 01-18-2015 tetanus toxoid, redu sia diphtheria toxoid, and acellular pertussis vaccine, adsorbed REUBEN Diaz Work Phone: [facility] 12-29-2013 poliovirus vaccine, inactivated DO [facility] Work Phone: [facility] 07-20-2013 diphtheria, tetanus toxoids and acellular pertussis vaccine DO [facility] Work Phone: [facility] 07-20-2013 hepatitis A vaccine, pediatric/adolescent dosage, 2 dose schedule DO [facility] Work Phone: [facility] 04-15-2013 hepatitis B vaccine, pediatric or pediatric/adolescent dosage DO [facility] Work Phone: [facility] 04-15-2013 poliovirus vaccine, inactivated DO [facility] Work Phone: [facility] 04-15-2013 varicella virus vaccine DO Nigel [facility] Work Phone: [facility] 01-17-2013 diphtheria, tetanus toxoids and acellular pertussis vaccine DO [facility] Work Phone: [facility] 01-17-2013 hepatitis B vaccine, pediatric or pediatric/adolescent dosage DO [facility] Work Phone: [facility] 01-17-2013 measles, mumps and rubella virus vaccine DO [facility] Work Phone: [facility] 01-17-2013 poliovirus vaccine, inactivated DO [facility] Work Phone: [facility] 12-28-2012 hepatitis A vaccine, pediatric/adolescent dosage, 2 dose schedule DO [facility] Work Phone: [facility] 12-14-2012 diphtheria, tetanus toxoids and acellular pertussis vaccine DO [facility] Work Phone: [facility] 12-14-2012 hepatitis B vaccine, pediatric or pediatric/adolescent dosage DO [facility] Work Phone: [facility] 12-14-2012 measles, mumps and rubella virus vaccine DO [facility] Work Phone: [facility] 12-14-2012 poliovirus vaccine, inactivated DO [facility] Work Phone: [facility] 12-14-2012 varicella virus vaccine DO Nigel Pisano Work Phone: [facility] 2003 diphtheria, tetanus toxoids and acellular pertussis vaccine, unspecified formulation DO Baljit Pisano Work Phone: [facility] 2003 haemophilus influenz ae type b conjugate and Hepatitis B vaccine DO Baljit Pisano Work Phone: [facility] 2003 pneumococcal conjuga te vaccine, [address] [facility] Work Phone: [facility] 2003 poliovirus vaccine, inactivated DO [facility] Work Phone: [facility] Payers Date Payer Category Payer [employer] others) [id number] 04-21-2023 Self-pay [id number] 12-31-2022 [employer] others) [id number] 12-31-2022 [employer] others) [id number] 05-11-2017 [employer] ( [employer] others) [facility] [id number] 05/11/2017-Present [phone] [address] [place] [address] [id number] 05-11-2017 [employer] ( [employer] others) [id number] 11-25-2012 [employer] ( [employer] others) [id number] 2003 Unknown [id number] 2.16.840.1.917102.3.579.2. 593 2003 Unknown [id number] 2.16.840.1.161524.3.579.2. 593 2003 Unknown [id number] 2.16.840.1.885457.3.579.2. 593 2003 Unknown [id number] 2.16.840.1.707499.3.579.2. 718 2003 Unknown [id number] 2.16.840.1.931530.3.579.2. 718 2003 Unknown [id number] 2.16.840.1.036170.3.579.2. 718 2003 Unknown [id number] 2.16.840.1.720024.3.579.2. 718 2003 Unknown [id number] 2.16.840.1.976593.3.579.2. 718 2003 Unknown [id number] 2.16.840.1.443597.3.579.2. 718 2003 Unknown [id number] 2.16.840.1.599406.3.579.2. 718 2003 Unknown [id number] 2.16.840.1.202539.3.579.2. 718 2003 Unknown [id number] 2.16.840.1.320514.3.579.2. 718 2003 Unknown [id number] 2.16.840.1.298731.3.579.2. 1286 2003 Unknown [id number] 2.16.840.1.488414.3.579.2. 1285 2003 Unknown [id number] 2.16.840.1.409916.3.579.2. 1286 2003 Unknown [id number] 2.16.840.1.456135.3.579.2. 1285 2003 Unknown [id number] 2.16.840.1.200783.3.579.2. 1286 2003 Unknown [id number] 2.16.840.1.502271.3.579.2. 1286 2003 Unknown [id number] 2.16.840.1.278579.3.579.2. 1286 2003 Unknown [id number] 2.16.840.1.107881.3.579.2. 1286 2003 Unknown [id number] 2.16.840.1.886857.3.579.2. 1286 2003 Unknown [id number] 2.16.840.1.046656.3.579.2. 1286 2003 Unknown [id number] 2.16.840.1.082693.3.579.2. 1286 2003 Unknown [id number] 2.16.840.1.267046.3.579.2. 1286 05-11-1961 [employer] others) [id number] 05-11-1961 [employer] ( [employer] others) [id number] Unknown [id number] 2.16.840.1.553703.3.579.2. 531 Unknown [id number] 2.16.840.1.602471.3.579.2. 531 Unknown [id number] 2.16.840.1.724094.3.579.2. 531 Unknown [id number] 2.16840.1.039891.3.579.2. 531 Social History Date Type Detail Facility Unknown if ever smoked [employer] Other Start: 06-21-2020 End: 07-21-2023 [facility] Start: 02-20-2022 End: 12-31-2023 Tobacco smoking status NHIS Never smoked tobacco [facility] Start: 02-20-2022 Tobacco use and exposure Smokeless tobacco [facility]user [facility] Start: 07-21-2023 Alcohol intake Ex-drinker (finding) [facility] Start: 06-21-2020 End: 07-21-2023 [facility] of Social function [facility] Start: 2003 Sex Assigned At Not on file [facility] [employer] [facility] Start: 03-22-2024 Sex Male (finding) [facility] Goals Date Patient Goal Desired Activity /State Clinical Notes 02-04-2022 to 03-22-2024 Note Date & Type Note Facility 03-22-2024 Procedure note [facility] 03-22-2024 History and physical note [facility] 03-11-2024 History and physical note Note Date/Time March 22, 2024 10:12am [facility] [address] [place] [address] Gastroenterology H&P Signed Patient: Ta Duncan MR#: [id number] : 2005 Acct:[id number] Age/Sex: 18 / M Adm Date: 4 Loc: Room: Type: [facility] Attending Dr: Wilver Felton MD Copies to: [...] signed by Wilver Felton MD> 03/22/24 1012 [facility] Work Phone: 1(625) 216-642510-01-2024 Evaluation note* Author Kareem Tijerina [facility] Authored February 09, 2024 8: 48am [...] is going to start working with a rda. 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 6. 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 Salivary cortisol x 2 ordered. [facility] Work Phone: 1([phone]) 680-328708-06-2024 Evaluation note* Author Molyl Kulkarni [facility] Authored December 15, 2023 9:4 0am [...] the results will be discussed with the [employer]. 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 6. 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 [facility] Work Phone: 1(260) 969-245208-06-2024 Evaluation note* Author Molly Kulkarni [facility] Authored December 15, 2023 9:4 0am [...] the results will be discussed with the [employer]. 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 6. 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 6. 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 [facility] Work Phone: 1(676) 381-765908-06-2024 Evaluation note* Author Molly Kulkarni [facility] Authored December 15, 2023 9:4 0am [...] the results will be discussed with the [employer]. 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 6. 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 Author Kareem Tijerina [facility] Authored February 09, 2024 9: 48am [...] is going to start working with a rda. 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 6. 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 6. 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 His PCP is Leatha iDaz. He was sent for sleep study but [...] on a mood stabilizing medication. 6. 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 6. 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 Salivary cortisol x 2 ordered/pending. 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 6. 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 Author Molly [facility] Authored December 15, 2023 9:4 0am [...] the results will be discussed with the [employer]. 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 6. 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 6. 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 Handout given. Our free weekly [...] and benefits of prescribed meds discussed. Initial [id number]-it-bflf interview/evaluation. The patient was counseled in detail on the options for weight loss in an individual setting. 55 minutes was spent caring for the patient, counseling/educating patient on the options for the treatment of obesity and related healthcare issues. The program's treatment goals were reviewed with the patient. Each aspect of the program was discussed with the patient. 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 6. 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 Handout given. Our free weekly [...] and benefits of prescribed meds discussed. Initial togx-uy-ryre interview/evaluation. The patient was counseled in detail on the options for weight loss in an individual setting. 55 minutes was spent caring for the patient, counseling/educating patient on the options for the treatment of obesity and related healthcare issues. The program's treatment goals were reviewed with the patient. Each aspect of the program was discussed with the patient. 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 6. 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 Salivary cortisol x 2 ordered/pending. 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 6. 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 Handout given. Our free weekly [...] and benefits of prescribed meds discussed. Initial [id number]-[id number] interview/evaluation. The patient was counseled in detail on the options for weight loss in an individual setting. 55 minutes was spent caring for the patient, counseling/educating patient on the options for the treatment of obesity and related healthcare issues. The program's treatment goals were reviewed with the patient. Each aspect of the program was discussed with the patient. 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 6. 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 6. 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 Salivary cortisol x 2 ordered/pending. 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 6. 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 Handout given. Our free weekly [...] and benefits of prescribed meds discussed. Initial gixj-eh-aurw interview/evaluation. The patient was counseled in detail on the options for weight loss in an individual setting. 55 minutes was spent caring for the patient, counseling/educating patient on the options for the treatment of obesity and related healthcare issues. The program's treatment goals were reviewed with the patient. Each aspect of the program was discussed with the patient. 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 6. 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 6. 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 Salivary cortisol x 2 ordered/pending. [facility] Work Phone: 1(589) 512-710803-12-2024 History of Present illness Narrative* ERLINDA Cooper - 07/21/2023 9:30 AM EDT Images from the original note were not included. [address] [address] Date of Service: 07/21/2023 Thank you for [...] 02/20/2022 Performed by Dean Atkins DO at [facility] reviewed. Social History Tobacco Use Smoking status: Never Smokeless tobacco: Never Vaping Use Vaping Use: Never used Substance Use Topics Alcohol use: Not Currently Drug use: Never reviewed. Past Medical History: Diagnosis Date Anxiety Bipolar disorder ([facility]) Depression Fractures Mood disorder ([facility]) reviewed. 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 Scl antibody, andree p.m. Scl antibody, anti dsDNA antibody, U3 ELECTRIC ACCOUNTING MACHINE OPERATOR were all negative/ normal THC [...] or corrected. Thank you for your understanding. [facility] Pattie Cox PA-C [address] [place] [address] Office [phone] ERLINDA Cooper 07/21/23 [id number] ERLINDA Cooper 07/21/23 [id number] documented in this encounterMemorial Health SystemRoovyn [id number] Evaluation note* Encounter Date Diagnosis Assessment Notes Treatment Notes Treatment Clinical Notes May, Elevated LFTs (ICD-10 - R79.89) The liver studies are all within normal limits. May, Fatty liver (ICD-10 - K76.0) Plan for repeat fibroscan in one year for routine surveillance. [employer] Other 12-12-2023 Evaluation note* Encounter Date Diagnosis Assessment Notes Treatment Notes Treatment Clinical Notes Apr, Fatty liver (ICD-10 - K76.0) Apr, Elevated LFTs (ICD-10 - R79.89) Apr, Hepatitis A test positive (ICD-10 - B15.9) Apr, Fatigue, unspecified type (ICD-10 - R53.83) [employer] Other 11-09-2023 Evaluation note* Encounter Date Diagnosis Assessment Notes Treatment Notes Treatment Clinical Notes Mar, Hepatitis A test positive (ICD-10 - B15.9) f/u after testing Mar, Elevated LFTs (ICD-10 - R79.89) Mar, Fatty liver (ICD-10 - K76.0) [employer] Other 09-27-2022 Evaluation note* Encounter Date Diagnosis [...] treatment plan. Patient left in stable condition [employer] Other [place] complaint+Reason for visit Narrative* Chief Complaint 1 Month Follow Up Stomach Issues Amb Documentation [place]-Referral Leatha Diaz k76.0 r73.9 k76.0 Reason for Visit Family history of [place] shimoto thyroiditis Fatigue Fatty liver Multiple joint pain Obesities, morbid Sleep disturbance Vitamin D deficiency Abnormal weight gain Fatty liver Sleep disturbance Bipolar disorder [facility] Work Phone: Chief complaint+Reason for visit Narrative* Chief Complaint Stomach Issues Amb Documentation [place]-Referral Leatha Emily k76.0 r73.9 k76.0 chest congestion Reason for Visit Family history of [place] shimoto thyroiditis Fatigue Fatty liver Multiple joint pain Obesities, morbid Sleep disturbance Vitamin D deficiency Abnormal weight gain Fatty liver Sleep disturbance Bipolar disorder Bronchitis Maxillary sinusitis [facility] Work Phone: Chief complaint+Reason for visit Narrative* Chief Complaint Amb Documentation [place]-Referral Leatha Emily k76.0 r73.9 k76.0 chest congestion knee issues Mental concerns Reason for Visit Abnormal weight gain Fatty liver Sleep disturbance Bipolar disorder Bronchitis Maxillary sinusitis Adult BMI 50.0-59.9 kg/sq m Fatty liver Mixed hyperlipidemia Vitamin D deficiency Bipolar disorder Left knee pain Right knee pain Depression [facility] Work Phone: Chief complaint+Reason for visit Narrative* Chief Complaint [place]-Referral Abelino belkismaryana Emily k76.0 r73.9 k76.0 chest congestion knee issues Mental concerns 4 week follow up Reason for Visit Abnormal weight gain Fatty liver Sleep disturbance Bipolar disorder Bronchitis Maxillary sinusitis Adult BMI 50.0-59.9 kg/sq m Fatty liver Mixed hyperlipidemia Vitamin D deficiency Bipolar disorder Left knee pain Right knee pain Depression Adult BMI 50.0-59.9 kg/sq m Fatty liver Mixed hyperlipidemia Tachycardia Depression [facility] Work Phone: Evaluation noteNo assessment information available [facility] Work Phone: Evaluation noteNo InformationNort [employer] Other Evaluation note* Diagnosis Positive TENA (antinuclear antibody)- Primary Other and unspecified nonspecific immunological findings Chronic fatigue Other malaise and fatigue Pain in both hands Bilateral carpal tunnel syndrome Carpal tunnel syndrome documented in this encounter [facility] Authored August 13, 2023 10:3 8am [...] Our exercise program was recommended with our cell pourer/obesity exercise group. Handout given. Our free weekly [...] and benefits of prescribed meds discussed. Initial [id number] interview/evaluation. The patient was counseled in detail on the options for weight loss in an individual setting. [ ] minutes was spent caring for the patient, counseling/educating patient on the options for the treatment of obesity and related healthcare issues. The program's treatment goals were reviewed with the patient. Each aspect of the program was discussed with the patient. [facility] Work Phone: History general Narrative - Reported* Type Description Date Medical History bi polar [employer] Other History general Narrative - Reported* Type Description Date Medical History bi polar Surgical History appendectomy [facility] [employer] Other History general Narrative - Reported* Type Description Date Medical History bi polar Surgical History appendectomy Hospitalization History see above [employer] Other Instructions* Attachments The following attachments cannot be sent through Care Everywhere. * Carpal tunnel syndrome (Vietnamese) * Fibromyalgia (Vietnamese) * Gabapentin, ADULT (Vietnamese) * Duloxetine, ADULT (Vietnamese) * Meloxicam, ADULT (Vietnamese) documented in this encounterMemorial Health SystemCloudShare [facility] SystemReason for visit Narrative PATIENT IS HERE AT THE REQUEST OF DR. PISANO FOR HEP INFECTION AND ELEVATED LIVER ENZYMES. US GALL BLADDER IN PT [employer] IN REFERRAL NOTESNort [employer] Other Summary Purpose Family History No Family [...] Month Follow Up Stomach Issues Amb Documentation [place]-Referral Leatha Diaz Reason for Visit Family history of [place] shimoto thyroiditis Fatigue Fatty liver Multiple joint pain Obesities, morbid Sleep disturbance Vitamin D deficiency Chief Complaint M79.1 M25.50,R 76.0 UPPER BACK PAIN, KNEE PAIN FAT 1 Month Follow Up Stomach Issues Amb Documentation [place]-Referral Leatha Diaz k76.0 r73.9 k76.0 Reason for [...] tunnel syndrome Procedures Pattie Braden PA [address] [facility] [address] [place] [address] Referral ID Status Reason Start Date Expiration Date V isits Requested Visits Authorized [id number] Pending Review 07/21/2023 07/20/2024 1 1 Reason [...] section and content) DATE CREATED AUTHOR 01/06/2018 [facility] DATE CREATED AUTHOR AUTHOR'S ORGANIZ ATION 04/19/2021 [facility] DATE CREATED AUTHOR AUTHOR'S ORGANIZ ATION 05/02/2021 [facility] dical Specialist DATE CREATED AUTHOR AUTHOR'S ORGANIZ ATION 09/22/2022 [facility] DATE CREATED AUTHOR AUTHOR'S ORGANIZ ATION 06/22/2023 [facility] DATE CREATED AUTHOR AUTHOR'S ORGANIZ ATION 01/25/2024 [facility] DATE CREATED AUTHOR AUTHOR'S ORGANIZ ATION 01/25/2024 [facility] DATE CREATED AUTHOR AUTHOR'S ORGANIZ ATION 01/28/2024 [facility] DATE CREATED AUTHOR AUTHOR'S ORGANIZ ATION 04/02/2024 [facility] REASON FOR VISIT (unrecogniz ed [...] Active Lewis Mirza MD Attending Provider Active Silver Lap Machine Tender Relationship Specialty Start Date End Date Baljit Pisano DO [address] [place] [address] PCP - General 01/07/17 Team Status: Active Member Role Status Dates Leatha Diaz APRN DIRECTOR SPORTS-C Primary Care Provider Active Team Status: Inactive Member Role Status Dates Baljit Pisaon DO Primary Care Provider Active Start: May 19, 2023 End: May 19, 2023 Lewis Mirza MD Attending Provider Active St art: May 19, 2023 End: May 19, 2023 Team Status: Inactive Member Role Status Dates Wilver Felton MD Attending Provider Active Start: May 26, 2023 End: May 26, 2023 Team Status: Inactive Member Role Status Dates Leatha Diaz APRN DIRECTOR SPORTS-[employer] Primary Care Provider, Attending Provider Active Start: July 07, 2023 End: July 07, 2023 Team Status: Active Member Role Status Dates Leatha Diaz APRN DIRECTOR SPORTS-[employer] Primary Care Provider, Attending Provider Active Start: July 08, 2023 Team Status: Active Member Role Status Dates Leatha Diaz APRN DIRECTOR [employer] Primary Care Provider Active Start: August 07, 2023 Montserrat Sterling Attending Provider Active Start: August 07, 2023 Team Status: Inactive Member Role Status Dates Leatha Diaz APRN DIRECTOR SP[employer] Primary Care Provider Active Start: August 13, 2023 End: August 13, 2023 Kareem Tijerina MD Attending Provider Active Start: August 13, 2023 End: August 13, 2023 Team Status: Active Member Role Status Dates Leatha Diaz APRN DIRECTOR SP[employer] Primary Care Provider Active Start: August 07, 2023 Montserrat Sterling LPN Attending Provider Active S tart: August 07, 2023 Team Status: Inactive Member Role Status Dates Leatha Diaz APRN DIRECTOR SP[employer] Primary Care Provider Active Start: August 19, 2023 End: August 19, 2023 ROS Mireles Attending Provider Active Start: August 19, 2023 End: August 19, 2023 Team Status: Inactive Member Role Status Dates Leatha Diaz APRN DIRECTOR SP[employer] Primary Care Provider, Attending Provider Active Start: August 27, 2023 End: August 27, 2023 Team Status: Inactive Member Role Status Dates Leatha Diaz APRN DIRECTOR SPORTS-C Primary Care Provider Active Start: September 10, 2023 End: September 10, 2023 Kareem Tijerina MD Attending Provider Active Start: September 10, 2023 End: September 10, 2023 Team Status: Inactive Member Role Status Dates Leatha Diaz APRN DIRECTOR SPORTS-C Primary Care Provider, Attending Provider Active Start: September 24, 2023 End: September 24, 2023 Team Status: Inactive Member Role Status Dates Leatha Diaz APRN DIRECTOR SP[employer]TS-C Primary Care Provider, Attending Provider Active Start: October 12, 2023 End: October 12, 2023 Team Status: Active Member Role Status Dates Leatha Diaz APRN DIRECTOR SP[employer] Primary Care Provider Active Start: August 07, 2023 Montserrat Nelson LPN Attending Provider Active St art: August 07, 2023 Team Status: Inactive Member Role Status Dates Leatha Diaz APRN DIRECTOR SPORTS-[employer] Primary Care Provider Active Start: October 22, 2023 End: October 22, 2023 Kareem Tijerina MD Attending Provider Active Start: October 22, 2023 End: October 22, 2023 Team Status: Inactive Member Role Status Dates Leatha Diaz APRN DIRECTOR SP[employer]TS-[employer] Primary Care Provider, Attending Provider Active Start: November 09, 2023 End: November 09, 2023 Team Status: Inactive Member Role Status Dates Leatha Diaz APRN DIRECTOR SPORTS-[employer] Primary Care Provider Active Start: December 09, 2023 End: December 09, 2023 Kareem Tijerina MD Attending Provider Active Start: December 09, 2023 End: December 09, 2023 Team Status: Inactive Member Role Status Dates Leatha Diaz APRN DIRECTOR SPORTS-[employer] Primary Care Provider Active Start: December 15, 2023 End: December 15, 2023 Kareem Tijerina MD Attending Provider Active Start: December 15, 2023 End: December 15, 2023 Team Status: Inactive Member Role Status Dates Leatha Diaz APRN DIRECTOR SPORTS-C Primary Care Provider, Attending Provider Active Start: December 31, 2023 End: December 31, 2023 Team Status: Inactive Member Role Status Dates Leatha Diaz APRN DIRECTOR SPORTS-C Primary Care Provider, Attending Provider Active Start: January 28, 2024 End: January 28, 2024 Team Status: Inactive Member Role Status Dates Leatha Diaz APRN DIRECTOR SPORTS-C Primary Care Provider Active Start: February 09, 2024 End: February 09, 2024 Kareem Tijerina MD Attending Provider Active Start: February 09, 2024 End: February 09, 2024 Team Status: Inactive Member Role Status Dates Leatha Diaz APRN DIRECTOR SPORTS-C Primary Care Provider, Attending Provider Active Start: February 25, 2024 End: February 25, 2024 Team Status: Inactive Member Role Status Dates Leatha Diaz APRN DIRECTOR SPORTS-C Primary Care Provider Active Start: March 222023 End: March 22, 2024 Wilver Felton MD Attending Provider Active Start: March 22, 2024 End: March 22, 2024 Team Status: Active Member Role Status Dates Leatha Diaz APRN DIRECTOR SPORTS-C Primary Care Provider Active Start: March 222023 [...] BE BASED ON THE PRIMARY CLINICAL RECORDS. [facility] [employer] [facility] provides no warranty or guarantee of the accuracy or completeness of information in this document.
--- NOTE | 2024-04-06 22:18 | ED.ANIMALBI1 ---
HPI - Animal Bite General Chief Complaint: Animal Bite Stated Complaint: Dog Bite Time Seen by Provider: 04/06/24 22:01 Source: patient Mode of arrival: walk-in History of Present Illness HPI narrative: This 18-year-old male who is right-hand dominant presents for evaluation of a dog bite to his left hand. The patient's parents dogs were fighting and he attempted to break up the fight and sustained superficial bite french to his left hand on the left index finger, left long finger and distal end of the left ring finger. As far as he knows the dog's immunizations are up-to-date. He does not know the date of his last tetanus shot. He is most worried about his left hand index finger because he feels it is swollen and he has difficulty bending it. He washed his hands with soap and water before coming to the hospital. No additional injuries or complaints. Related Data Home Medications ?Medication ?Instructions ?Recorded ?Confirmed cholecalciferol (vitamin D3) 1,250 50,000 unit PO .weekly 08/06/23 01/24/24 mcg (50,000 unit) capsule clindamycin HCl 300 mg capsule 300 mg PO TID 01/24/24 01/24/24 oxycodone-acetaminophen 5 mg-325 1 tab PO Q4H PRN pain 01/24/24 01/24/24 mg tablet sertraline 50 mg tablet 50 mg PO DAILY 01/24/24 01/24/24 Previous Rx's ?Medication ?Instructions ?Recorded ketorolac 10 mg tablet 10 mg PO TID PRN pain #10 tabs 01/24/24 Allergies Allergy/AdvReac Type Severity Reaction Status Date / Time Penicillins Allergy Hives Verified 08/06/23 21:06 Review of Systems ROS Status of ROS 10 or more systems reviewed and unremarkable except as noted in history and below Exam Narrative Exam Narrative: Vital signs and Nursing Notes reviewed: Patient is afebrile, he is mildly tachycardic with a pulse of 101 and blood pressure is elevated at 151/105, he is not hypoxic with pulse ox of 98% on room air General: Awake, alert, oriented, no acute distress, lying comfortably on the stretcher HEENT: Normocephalic atraumatic, mucous membranes are moist and pink, eyes are clear, Chest: Lungs are clear to auscultation with good air entry, there is no wheezing rhonchi or rales appreciated no accessory muscle use, patient is speaking in complete sentences-no chest wall tenderness to palpation CVS: Regular rate and rhythm S1-S2, no murmurs rubs or gallops, pulses are brisk and equal bilaterally Extremities: There are 4 abrasions to the medial aspect of the left index finger between the metacarpal and proximal phalanx. There is a superficial laceration to the left long finger and a superficial abrasion along the fingernail of the distal end of the left ring finger. No active bleeding noted patient is able to approximate thumb and all fingers. Capillary refill is normal. Skin: Normal in appearance without rash,pallor, petechiae or purpura Neuro: No focal deficits Constitutional Vital Signs, click to edit/add: Last Vital Signs Temp 98.2 F 04/06/24 21:47 Pulse 101 H 04/06/24 21:47 Resp 16 04/06/24 21:47 BP 151/105 H 04/06/24 21:47 Pulse Ox 98 04/06/24 21:47 O2 Del Method Room Air 04/06/24 21:47 Course Vital Signs Vital signs: Vital Signs Temperature 98.2 F 04/06/24 21:47 Pulse Rate 101 H 04/06/24 21:47 Respiratory Rate 16 04/06/24 21:47 Blood Pressure 151/105 H 04/06/24 21:47 Pulse Oximetry 98 04/06/24 21:47 Oxygen Delivery Method Room Air 04/06/24 21:47 Temperature 98.2 F 04/06/24 21:47 Pulse Rate 101 H 04/06/24 21:47 Respiratory Rate 16 04/06/24 21:47 Blood Pressure 151/105 H 04/06/24 21:47 Pulse Oximetry 98 04/06/24 21:47 Oxygen Delivery Method Room Air 04/06/24 21:47 MDM - Animal Bite MDM Narrative Medical decision making narrative: This 18-year-old male who is right-hand dominant presents for evaluation after he was bit by his parents dogs after trying to break up a dog fight. As far as he knows, his parents dog's immunizations are up-to-date. He sustained several superficial lacerations to the left index finger, long finger and ring finger. X-ray of the extremity does not show any acute fracture. His hand was soaked in Hibiclens and tetanus was updated. He was medicated with clindamycin and doxycycline as he is penicillin allergic. He was instructed to continue soaking his hand in warm Epsom salt water and use the antibiotics as prescribed until gone. He declined the need for any pain medication. Discharge Plan Discharge Chief Complaint: Animal Bite Clinical Impression: Dog bite Patient Disposition: Home, Self-Care Time of Disposition Decision: 22:33 Condition: Good Prescriptions / Home Meds: No Action cholecalciferol (vitamin D3) 1,250 mcg (50,000 unit) capsule 50,000 unit PO .weekly clindamycin HCl 300 mg capsule 300 mg PO TID oxycodone-acetaminophen 5-325 mg tablet 1 tab PO Q4H PRN (Reason: pain) sertraline 50 mg tablet 50 mg PO DAILY ketorolac 10 mg tablet 10 mg PO TID PRN (Reason: pain) Qty: 10 0RF Print Language: Cypriot Instructions: Animal Bite (ED) Referrals: SHERRI ORDOÑEZ [Primary Care Provider] - 1 week
--- NOTE | 2024-04-06 22:24 | PC.NURSE ---
3 scratch french from teeth
[2024-04-06] MEDS: DOXYCYCLINE MONOHYDRATE 100 MG CAPSULE PO (22:35)
[2024-04-06] MEDS: CLINDAMYCIN HCL 150 MG CAPSULE 450 MG PO (22:35)
[2024-04-06] MEDS: ADACEL DIPH,PERTUSS(ACELL),TET VAC/PF 0.5 ML ADULT SYRINGE IM (22:36)
== END 2024-04-06 22:45 | disposition home or self-care (01) ==
PROVIDERS: Emergency Provider Emergency Medicine; PCP Nurse Practitioner Family
DX: S61.213A Laceration without foreign body of left middle finger without damage to nail, initial encounter (principal); S60.411A Abrasion of left index finger, initial encounter; S60.415A Abrasion of left ring finger, initial encounter; W54.0XXA Bitten by dog, initial encounter; Z23 Encounter for immunization
CPT/HCPCS: 73130; 90471; 90715; 99284

== ENCOUNTER 2024-10-13 09:01 | Outpatient (OUT) | payer BC, SELFPAY ==
--- OUTSIDE RECORDS SUMMARY | 2024-10-12 06:00 | XMS_ITS ---
[facility] Address [address] [place] [address] Care Team Providers Care Geochemist Name Role Phone Garret Corbinjoseline Primary Care Provider [phone] SHERRI ORDOÑEZ Unavailable Allergies Allergen (clinical drug ingredient) Drug/Non Drug [...] Problem Status W/U Status Risk Notes Problem [id number] Bipolar disorder, current episode mixed, mild (F31.61) Active confirmed Vital Signs Height 72 in 10/12/2024 Weight 453.4 lbs 10/12/2024 BMI 61.49 kg/m2 10/12/2024 Blood pressure systolic 132 mm Hg 10/13/19 25 Blood pressure diastolic 85 mm Hg 025 Oximetry 96 % 10/12/2024 Heart Rate 93 /min 10/12/2024 Encounters Encounter Location Date Provider Diagnosis [address] [place] [address] 10/12/2024 Kip Soviak Bipolar disorder, cu rrent [...] Up: 4 Weeks, Reason: med check Provider Name:Caleb Corbin, 11/02/2024 08:45:00 AM, [address] [place] [address], [phone], Progress Notes * JET HERRERA ADOB:2005 (19 yo M)Acc No.[id number]:10/12/2024 Behavioral Health Patient: Veronique LUTHER JET A Provider: TE Valles :2005 A ge:19 Y S ex:Male Date:10/12/2024 Address:[address] [place], [place] [id number] Subjective: * Chief Complaints: * r eferral from PCP for med mgnt of anxiety, bipolar disorderPt here to be established for depression and anxiety. Only sleeps 4-5 hrs a night. Only eats once a day. KSj * HPI: C onstitutional: PYSCHIATRIC HISTORY: Psychiatrist: YES IN [place] Therapist: NO Past Diagnosis: BIPOLAR, DEPRESSION, ANXIETY Past Medications:hydrOXYzine, Sertraline . Hospitalizations:[facility] 08/02 Self injurious behaviors:YES Suicide Attempts:NO [...] Reported to:N/A . SOCIAL HX: Born in: [place] Raised in: [place]/ [place] Currently resides in:[place] Who lives with you: 2 FRIENDS Siblings:NO Half-siblings:2 BROTHERS/ 1 SISTER Step-siblings: NO order:OLDEST Patient was raised by: MOM Parental relationship: GOOD Patient's childhood was described as:GOOD . DEVELOPMENTAL HX: Type of delivery: VAGINAL Term:YES Problems at : NO Smoking/alcohol/drug use with : NO Met developmental milestones:NO Speech delays:NO . 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 EMPLOYMENT: Currently employed:[employer] YEARS ON AND OFF Longest job held: [employer] Source of income: [employer] Difficulty holding a job:NO Retired:NO Receiving disability: [...] Hospitalization/Major Diagno stic Procedure: A dmitted to [facility] for depression 08/02 * Family History: F [...] Codes: 3 079F DIAST BP 80-89 MM [id number] SYST BP GE 130 - 139MM [id number] RVW MEDS BY RX/ IN [id number] NEW PSYCH DIAG EVAL W/MED SRVCS * Follow Up: 4 Weeks (Reason: med check) Care Plan: * Problems: * Images: * Sign off status: Completed true * Provider: TE Valles Date: 0 10/12/2024 Generated for Dylan ng/Syed/eTransmitting on: 10/13/2024 09:09 AM EDT History and Physical Notes * HPI (History of Present Illness) Category Sub-Category Detail Notes Category Not es Constitutional PYSCHIATRIC HISTORY: Psychiatrist: YES IN [place] Therapist: NO Past Diagnosis: BIPOLAR, DEPRESSION, ANXIETY Past Medications:hydrOXYzine, Sertraline . Hospitalizations:[facility] 08/02 Self injurious behaviors:YES Suicide Attempts:NO [...] Reported to:N/A . SOCIAL HX: Born in: [place] Raised in: [place]/ [place] Currently resides in:[place] Who lives with you: 2 FRIENDS Siblings:NO Half-siblings:2 BROTHERS/ 1 SISTER Step-siblings: NO order:OLDEST Patient was raised by: MOM Parental relationship: GOOD Patient's childhood was described as:GOOD . DEVELOPMENTAL HX: Type of delivery: VAGINAL Term:YES Problems at : NO Smoking/alcohol/drug use with : NO Met developmental milestones:NO Speech delays:NO . 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 EMPLOYMENT: Currently employed:[employer] YEARS ON AND OFF Longest job held: [employer] Source of income: [employer] Difficulty holding a [...]
--- OUTSIDE RECORDS SUMMARY | 2024-10-13 04:48 | XMS_ITS | Continuity of Care Document ---
Author Organization [facility] Address [address] [place] [address] Phone Support Name Relationship Address Phone Ranjith Barrientos Emergency Contact [address] [place] [address] Leatha Diaz APRN Personal Relationship [address] [place] [address] Care Teams Patient Care Team Team Status: Active Member Role Status Dates Leatha Diaz APRN DIGITAL ENGINEER-C Primary Care Provider Active Visit Care Team Team Status: Inactive Member Role Status Dates Leatha Diaz APRN DIGITAL ENGINEER-C Primary Care Provider, Attending Provider Active Start: August 31, 2024 End: August 31, 2024 Visit Care Team Team Status: Inactive Member Role Status Dates Leatha Diaz APRN DIGITAL ENGINEER-C Primary Care Provider, Attending Provider Active Start: September 22, 2024 End: September 22, 2024 Patient Care Team Team Status: Inactive Member Role Status Dates Leatha Diaz APRN DIGITAL ENGINEER-C Primary Care Provider, Attending Provider Active Start: October 13, 2024 End: October 13, 2024 Chief Complaint and Reason for Visit Chief Complaint Admit Date Mental Health August 31, 2024 1:0 3pm Check Up September 22, 2024 8:56a m pain in upper right stomach October 13 8:25am Reason for Visit Admit Date Anxiety August 31, 2024 1:0 3pm Depression August 31, 2024 1:0 3pm Bipolar disorder August 31, 2024 1:0 3pm Anxiety September 22, 2024 8:56a m Depression September 22, 2024 8:56a m Bipolar disorder September 22, 2024 8:56a m Rib pain on right side October 13, 2024 8: 25am Allergies, Adverse Reactions, Alerts Allergen Type Severity Reaction Last Updated Verified Status Penicillins Allergy Severe Hives October 13, 2024 8:25am Yes Active Social History Smoking Status Status Start Date End Date Date of Observa tion Never smoked tobacco (finding) August 31, 2024 1:51pm Observation Status Observation Response Date of Response Patient Sex Male October 13, 2024 8 :47am Assigned Sex Male July 11 Family History Relationship Condition Age at Onset Recorded Date/T priya father Unknown family medical history Unknown mother Fibromyalgia Unknown Disorder of thyroid Unknown Problems Active Problems Medical Problem Onset Date Status Change in bowel habit Active Sciatica, right side Active Frequent nocturnal awakening Act ifrah Morning headache Active Rib pain on right side Active Family history of Luis thyroiditis Active Left lower quadrant abdominal tenderness Active Fatigue Active Abdominal cramping Active Sleep disturbance Active Obesities, morbid Active Pilonidal abscess of teri cleft Active Multiple joint pain Active Pilonidal cyst Active Fatty liver Active Positive TENA (antinuclear antibody) Active Abnormal weight gain Active Anxiety Active Bipolar disorder Active Depression Active Blood glucose elevated Active Maxillary sinusitis Active Mixed hyperlipidemia Active Tachycardia Active Bloating Active Adult BMI 50.0-59.9 kg/sq m Acti ve Left knee pain Active Right knee pain Active Blood in stool Active Decreased appetite Active Abdominal pain Active Bronchitis Active Vitamin D deficiency Active Medications Medication Status Dose Units Route Directions Qty Days St art Date Stop Date End Date Instructions Cholecalcife rol (Vitamin D3) 1,250 mcg (50,000 unit) capsule Discont inued 1250 MCG PO every week 5 30 ua 2023 1:00am October 22, 2023 9:43a m take above dose for 8 weeks and then start 2,000 units daily of OTC vitamin d3 Sod Picosulf-Mag Ox-Citric Ac (Clenpiq) 10 mg-3.5 gram- 12 gram/175 mL solution Discont inued 175 ML PO .COMPLEX 350 1 Octobe r 2023 12:00a m Novem iglesia 2023 10:58 am Follow instructions given by office Pantoprazole 40 mg tablet,delay ed release (DR/EC) Discont inued 40 MG PO Daily 56 56 Novemb er 2023 1:00am October 13, 2024 8:33a m Ibuprofen 200 mg tablet Discont inued 200 MG PO Every 6 hours as needed 2023 1:00am October 22, 2023 9:43a m Semaglutide (Weight Loss) (Wegovy) 0.25 mg/0.5 mL pen injector Discont inued 0.25 MG SUBCUT every week 2 August 13, 2023 12:00a m September 10, 2023 10:37 am administer weeks 1 through 4 of therapy cholecalcife rol (vitamin D3) Discont inued 1 CAP PO Daily October 22, 2023 12:00a m Novem 2023 10:58 am Sertraline 25 mg tablet Discont inued 25 MG PO Daily 30 October 12, 2023 12:00a m November 09, 2023 8:43a m Prednisone 20 mg tablet Discont inued 20 MG PO .COMPLEX 18 2024 1:00am August 31, 2024 1:01p m Take 3 tabs po daily x 3 days, then take 2 tabs po daily x 3 days, then take 1 tab po daily x 3 days. Hydroxyzine Hcl 50 mg tablet Discont inued 50 MG PO Three times daily as needed August 31, 2024 12:00a m October 13, 2024 8:33a m Sertraline 100 mg tablet Discont inued 100 MG PO Daily August 31, 2024 12:00a m October 13, 2024 8:33a m Buspirone 5 mg tablet Discont inued 5 MG PO Twice daily 60 30 August 31, 2024 12:00a m September 22, 2024 9:21a m Buspirone 10 mg tablet Discont inued 10 MG PO Twice daily 180 90 September 22, 2024 9:21am October 13, 2024 8:33a m Semaglutide (Weight Loss) (Wegovy) 0.25 mg/0.5 mL pen injector Discont inued 0.25 MG SUBCUT every week September 10, 2023 10:37a m September 10, 2023 10:55 am administer weeks 1 through 4 of therapy Doxycycline Monohydrate 100 mg tablet Discont inued 100 MG PO Twice daily 20 August 27, 2023 12:00a m September 10, 2023 10:35 am Benzonatate 200 mg capsule Discont inued 200 MG PO Three times daily as needed for cough 30 10 August 27, 2023 12:00a m September 10, 2023 10:35 am Sertraline 50 mg tablet Discont inued 50 MG PO Daily 90 90 November 09, 2023 8:42am Octob er 2023 3:36p m Azithromycin 250 mg tablet Discont inued 250 MG PO daily 6 5 November 09, 2023 12:00a m December 09, 2023 11:26 am Take 2 tablets today and then 1 for the next 4 days Semaglutide (Ozempic) 0.25 mg or 0.5 mg (2 mg/3 mL) pen injector Discont inued 0.25 MG SUBCUT every week Octobe r 2023 12:00a m Octob er 2023 3:36p m sample Dicyclomine 10 mg capsule Discont inued 10 MG PO Three times daily as needed for abdominal pain 30 10 Octobe r 2023 12:00a m Novem iglesia 2023 10:58 am Sulfamethoxa zole-Trimeth oprim (Bactrim Ds) 800-160 mg tablet Discont inued 1 TAB PO Twice daily 14 7 Decemb er 2023 1:00am Febru allyssa 2024 11:01 am Aripiprazole 5 mg tablet Active 5 MG PO Daily October 13, 2024 12:00a m Immunizations Immunization Event Date Not Given Reason Dose Number [employer] Lot Number Vaccine Information Statement (VIS) Detail Haemophilus B Conjugate/HepB- Comvax 2003 diphtheria, TT and 5 pertussis antigens December 14, 2012 diphtheria, TT and 5 pertussis antigens January 17, 2013 diphtheria, TT and 5 pertussis antigens July 20, 2013 DTap, unspecified 2003 Hepatitis A Vaccine, adol/ped, 2 dose December 28, 2012 Hepatitis A Vaccine, adol/ped, 2 dose July 20, 2013 Hepatitis B Vaccine, adol/ped dosage December 14, 2012 Hepatitis B Vaccine, adol/ped dosage January 17, 2013 Hepatitis B Vaccine, adol/ped dosage April 15, 2013 Inactivated Poliovirus Vaccine 2003 Inactivated Poliovirus Vaccine December 14, 2012 Inactivated Poliovirus Vaccine January 17, 2013 Inactivated Poliovirus Vaccine April 15, 2013 Inactivated Poliovirus Vaccine December 29, 2013 Meningococcal MCV4O January 18, 2015 Meningococcal MCV4O January 04, 2016 Meningococcal MCV4O December 14, 2020 Measles, Mumps, and Rubella Virus Vaccine December 14, 2012 Measles, Mumps, and Rubella Virus Vaccine January 17, 2013 Pneumococcal Conjugate Vaccine, 7 valent 2003 Tetanus, Diphtheria, Pertussis (Tdap) January 18, 2015 Tetanus, Diphtheria, Pertussis (Tdap) January 04, 2016 Varicella Virus Vaccine December 14, 2012 Varicella Virus Vaccine April 15, 2013 Vital Signs Vital Reading Result Reference Range Collection Date/Time Height 72 [in_i] August 31 1:04pm Weight 200.03 kg August 31 1:04pm Body Temperature 99 [degF] 97.6-99.0 August 31, 2024 1:04pm Heart Rate 110 /min 60-100 August 31 1:04pm Oxygen saturation by Pulse oximetry 96 % 95-100 August 31, 2024 1:0 4pm BP Systolic 138 mm[Hg] 100-140 August 31 1:04pm BP Diastolic 74 mm[Hg] 60-100 August 31 1:04pm BMI (Body Mass Index) 59.8 kg/m2 August 31, 2024 1:04pm Height 72 [in_i] September 22, 2024 9:01am Weight 202.30 kg September 22, 2024 9:01am Body Temperature 97.9 [degF] 97.6-99.0 September 22, 025 9:01am Heart Rate 108 /min 60-100 September 22, 2024 9:01am Oxygen saturation by Pulse oximetry 97 % 95-100 September 22, 2024 9:01a m BP Systolic 126 mm[Hg] 100-140 September 22, 2024 9:01am BP Diastolic 88 mm[Hg] 60-100 September 22, 2024 9:01am BMI (Body Mass Index) 60.5 kg/m2 September 222024 9:01am Height 72 [in_i] October 13, 2024 8:28am Weight 205.02 kg October 13, 2024 8:28am Body Temperature 98.6 [degF] 97.6-99.0 October 13, 2 025 8:28am Heart Rate 97 /min 60-100 October 13, 2024 8:28am Oxygen saturation by Pulse oximetry 97 % 95-100 October 13, 2024 8:28a m BP Systolic 132 mm[Hg] 100-140 October 13, 2024 8:28am BP Diastolic 82 mm[Hg] 60-100 October 13, 2024 8:28am BMI (Body Mass Index) 61.2 kg/m2 October 132024 8:28am Advance Directives Advance Directive Response Recorded Date/ Time Advance Directives No December 18, 2018 9:54am Insurance Providers Guarantor Ta Duncan Address [address] [place] [id number] Contact Info. Home Phone: Payer Policy Id Coverage Id Subscriber's Name Subscriber Id Effective Date Expiration Date Addison LOMAX [id number] Ta Duncan [id number] [facility] [id number] Carmella Ch [id number] Encounters Encounter Location(s) Arrival/Admit Date Discharge/Depart Date Provider(s) Departed Physician/Prov ider Office Visit [facility] August 31, 2024 1:03pm August 31, 2024 1:37pm Leatha Diaz APRN CNP Departed Physician/Prov ider Office Visit [facility] September 22, 2024 8:56am September 22, 2024 9:27am Leatha Diaz APRN CNP Departed Physician/Prov ider Office Visit [facility] October 13, 2024 8:25am October 13, 2024 8:47am Leatha Diaz APRN CNP Recent Diagnosis Onset Date Admit Date Anxiety August 31, 2024 1:03pm Depression August 31, 2024 1:03pm Bipolar disorder August 31 1:03pm Anxiety September 22, 2024 8 :56am Depression September 22, 2024 8 :56am Bipolar disorder September 22, 2024 8:56am Rib pain on right side October 13, 2024 8:25am Assessments Diagnosis Onset Date Resolution Status Admit Date Anxiety acute August 31 1:03pm Depression acute August 31 1:03pm Bipolar disorder chronic August 312024 1:03pm Anxiety acute September 22, 2024 8:56am Depression acute September 22, 2024 8:56am Bipolar disorder chronic September 8:56am Rib pain on right side acute 2024 8:25am Plan of Treatment Author Leatha [facility] Authored August 31, 2024 1:5 4pm Patient is not suicidal or h omicidal at this time. Discussed treatment options with patient today. It was decided in collaboration with the patient to continue sertraline and will start BuSpar daily for management with depression/anxiety. Medication profile and possible SE reviewed with patient today. Patient to take medication as directed and prescribed. Do not skip/miss doses and do not stop abruptly. Referral placed to Referral to psychiatry. Patient is interested in counseling at this time, he is awaiting call from insurance, also discussed that he could called [facility] as well. Warning s/s reviewed with patient today. Patient to go immediately to the ER should patient experience any of these. Call with any changes or worsening in symptoms. Patient verbalizes understanding and agrees to treatment plan. Author Leatha [facility] Authored September 22, 2024 9:36a m Patient is not suicidal or h omicidal at this time. Discussed treatment options with patient today. It was decided in collaboration with the patient to continue sertraline and will increase BuSpar twice daily for management with depression/anxiety. Medication profile and possible SE reviewed with patient today. Patient to take medication as directed and prescribed. Do not skip/miss doses and do not stop abruptly. Referral placed to Referral to psychiatry. Patient is interested in counseling at this time, he is awaiting call from insurance, also discussed that he could called [facility] as well. Warning s/s reviewed with patient today. Patient to go immediately to the ER should patient experience any of these. Call with any changes or worsening in symptoms. Keep appointment with psychiatry on October 12. Patient verbalizes understanding and agrees to treatment plan. see above see above Future Tests Future scheduled test information is unavailable Pending Tests Test Name Ordered Date Scheduled Date XR ribs RT min 3V w CXR1V* October 13, 2024 8:45am Future Visits Future appointment information is unavailable Referrals to Other Providers Reason for Referral Referral Start Date Provider Provider Contact Information Provider Address F41.9 - Anxiety disorder, unspecified,F33.1 - Major depressive disorder, recurrent, moderate,F31.9 - Bipolar disorder, unspecified August 31, 2024 Caleb Mcdaniels [facility] Future Procedures Future procedure information is unavailable Future Medications Future medication information is unavailable Patient Instructions Patient instructions are unavailable
--- OUTSIDE RECORDS SUMMARY | 2024-10-13 09:09 | XMS_ITS | Encounter Summary ---
Author Organization [facility] Address [id number] [place] [address] Care Team Providers Care Rework Operator Name Role Phone Leatha Diaz APRN-CHECO Primary Care Provid er Reason for Visit * Reason Comments Med Refill Encounter Details Date Type Department Care Team (Late st Contact Info) Description 10/22/2023 Refill [facility] [address] [place] [address] [address] [place] [address] [place] [address] [place] [address] [address] [place] [address] Chronic fatigue; Pain in both hands Social History Tobacco Use Types Packs/Day Years Used Date Smoking Tobacco: Never Smokeless Tobacco: Never Alcohol Use Standard Drinks/Week Comments Not Currently 0 (1 standard drink = 0.6 oz pur e alcohol) Childcare Answer Date Recorded Childcare Unknown 10/20/2018 Employment Answer Date Recorded Employment Unknown 10/20/2018 Hunger Screening Answer Date Recorded Within the past 12 months we worried whether our food would run out before we got money to buy more. Never True 10/07/2023 Within the past 12 months th e food we bought just didn't last and we didn't have money to get more. Never True 10/07/2023 Purpose - Life Answer Date Recorded Purpose and direction in life Unknown Sex and Gender Information Value Date Recorded Sex Assigned at Not on file Legal Sex Male 12:01 PM EDT Gender Identity Not on file Sexual Orientation Not on file documented as of this encounter Plan of Treatment Not on file documented as of this encounter Visit Diagnoses Diagnosis Chronic fatigue Other malaise and fatigue Pain in both hands documented in this encounter Care Teams Rework Operator Relationship Specialty Start Date End Date Leatha Diaz APRN-NP [address] [place] [address] PCP - General Nurse Practitioner 01/21/24 documented as of this encounter
--- OUTSIDE RECORDS SUMMARY | 2024-10-13 09:10 | XMS_ITS | Patient Health Record ---
Author Organization [facility] Address [address] [place] [address] Care Team Providers Care Strategy Execution Consultant Name Role Phone Caleb Corbin Primary Care Provider SHERRI ORDOÑEZ Unavailable Allergies Allergen (clinical drug ingredient) Drug/Non Drug Allergy documented on EMR Reaction Allergy Type Onset Date Status Penicillin anaphylaxis Drug Allergy 10/27/2007 Act ifrah Reason For Referral Reason 09/12 *2nd attempt attempt, lvmsg requesting return call referral from PCP for med mgnt of anxiety, bipolar disorder Diagnosis 1 Encounter for screen ing examination for mental health and behavioral disorders (Z13.30) Referral Organization [facility] Referring Provider First Name SHERRI Referring Provider Last Name TIAGO Referring Provider [facility] icine Referred Organization [facility] [place] Referred Provider Caleb Corbin Referred Address [address] [place] [place], [place],[address],[place] Referred Provider Specialty Medicatio ns Referral Priority Routine Medications Medication SIG (Take, Route, Frequency, Duration) [...] Problem Status W/U Status Risk Notes Problem [id number] Bipolar disorder, current episode mixed, mild (F31.61) Active confirmed Vital Signs Heart Rate 93 /min 10/12/2024 Oximetry 96 % 10/12/2024 Blood pressure diastolic 85 mm Hg 10/12/2024 Height 72 in 10/12/2024 Blood pressure systolic 132 mm Hg 10/12/2024 Weight 453.4 lbs 10/12/2024 BMI 61.49 kg/m2 10/12/2024 Encounters Encounter Location Date Provider Diagnosis [place] [address] [place] [address] 10/12/2024 Kip Soviak Bipolar disorder, cu rrent [...] start/continuation of the treatment. Plan Of Treatment Next Appt Details Provider Name:Caleb Corbin, 11/02/2024 08:45:00 AM, [address] [place] [address], [phone], Insurance Providers Payer Name Payer Address Payer Phone Subscriber Number Group Number Insured Name Patient Relationship to Insured Coverage Start Date Coverage End Date ANTH Primary [address] [place] [phone] [id number] JET HERRERA Self - patient is the insured Medical (General) History Medical History History ICD Code Anxiety Depression Bipolar Disorder Sleep apnea Surgical History Surgery Date(Month/Year) appendectormy 03/2022 Hospitalization History Reason Date(Month/Year) Admitted to [facility] for depressi on 08/02
--- OUTSIDE RECORDS SUMMARY | 2024-10-13 09:10 | XMS_ITS | Clinical Summary ---
Author Organization [facility] Address [address] [place] [address] Care Team Providers Care Billiard Table Repairer Name Role Phone Baljit Briscoe Primary Care Provider [phone] Social History Tobacco Use Types Packs/Day Years Used Date Smoking Tobacco: Never Assessed Sex and Gender Information Value Date Recorded Sex Assigned at Not on file Legal Sex Male 1:48 PM EDT Gender Identity Not on file Sexual Orientation Not on file Plan of Treatment Health Maintenance Due Date Last Done Comments MMR Vaccine (1 of 1 - Standa rd series) 07/11/2004 DTaP/Tdap/Td Vaccine (1 - Tdap) 07/11/2010 Varicella Vaccine (1 of 2 - 13+ 2-dose series) 07/11/2016 HPV Vaccine (1 - Male 3-dose series) 07/11/2018 Meningococcal B Vaccine (1 o f 2 - Standard) 2019 Hepatitis B Vaccine (1 of 3 - 19+ 3-dose series) 07/11/2022 COVID-19 Vaccine ( - 2023-2 5 season) 2024 Influenza Vaccine (#1) 2024 HIB Vaccine Aged Out No longer eligi ble based on patient's age to complete this topic Hepatitis A Vaccine Aged Out No longe r eligible based on patient's age to complete this topic IPV Vaccine Aged Out No longer eligi ble based on patient's age to complete this topic Meningococcal ACWY Vaccine Aged Out N o longer eligible based on patient's age to complete this topic Pneumococcal Vaccine Aged Out No long er eligible based on patient's age to complete this topic RSV, Nirsevimab Immunization Aged Out No longer eligible based on patient's age to complete this topic Rotavirus Vaccine Aged Out No longer eligible based on patient's age to complete this topic Insurance INDIRA LEDEZMA INDIRA LEDEZMA Care Teams Billiard Table Repairer Relationship Specialty Start Date End Date Baljti Briscoe [address] [place] [address] PCP - General Family Medicine 12/25/17
--- OUTSIDE RECORDS SUMMARY | 2024-10-13 09:10 | XMS_ITS | Encounter Summary ---
Author Organization [facility] Address [facility] [id number] [address] [place] [address] Care Team Providers Care Ophthalmic Asst Name Role Phone Leatha Diaz APRN-CHECO Primary Care Provid er Encounter Details Date Type Department Care Team (Late st Contact Info) Description 07/22/2023 Orders Only [facility] [address] [id number] Emiliana Lester MD [address] [facility] [address] [place] [address] Social History Tobacco Use Types Packs/Day Years [...] got money to buy more. Never True 12/26/2022 Within the past 12 months th e food we bought just didn't last and we didn't have money to get more. Never True 12/26/2022 Purpose - Life Answer Date Recorded Purpose and direction in life Unknown Sex and Gender Information Value Date Recorded Sex Assigned at Not on file Legal Sex Male 12:01 PM EDT Gender Identity Not on file Sexual Orientation Not on file documented as of this encounter Plan of Treatment Not on file documented as of this encounter Procedures Procedure Name Priority Date/Time Associated Diagnosis Comments MULTIPLE LABS Routine 07/22/2023 9:00 AM EDT documented in this encounter Results * Multiple labs (07/22/2023 9:00 AM EDT) Emiliana Lester MD [facility] Final Result MANUALLY TRANSCRIBED RESULTS documented in this encounter Visit Diagnoses Not on filedocumented in this encounter Care Teams Ophthalmic Asst Relationship Specialty Start Date End Date Leatha Diaz APRN-NP [address] [place] [address] PCP - General Nurse Practitioner 01/21/24 documented as of this encounter
--- OUTSIDE RECORDS SUMMARY | 2024-10-13 09:10 | XMS_ITS | Clinical Summary ---
Author Organization [facility] Address [address] [place] [address] Care Team Providers Care Jitney Driver Name Role Phone Unavailable Primary Care Provider Unavailabl e Social History Tobacco Use Types Packs/Day Years Used Date Smoking Tobacco: Never Assessed Sex and Gender Information Value Date Recorded Sex Assigned at Not on file Legal Sex Male 8:05 PM EDT Gender Identity Not on file Sexual Orientation Not on file Last Filed Vital Signs Vital Sign Reading Time Taken Comments Blood Pressure - - Pulse - - Temperature - - Respiratory Rate - - Oxygen Saturation - - Inhaled Oxygen Concentration - - Weight 136 kg (300 lb) 05/14/2021 12:00 PM EST Height 182.9 cm (6') 05/14/2021 12:00 PM EST Body Mass Index 40.69 05/14/2021 12:00 PM EST Plan of Treatment Not on file Insurance
--- OUTSIDE RECORDS SUMMARY | 2024-10-13 09:10 | XMS_ITS | Clinical Summary ---
Author Organization [facility] tem Address [id number] [place] [address] Care Team Providers Care Licensing Officer Name Role Phone Leatha Diaz APRN-CHECO Primary Care Provid er Allergies Active Allergy Reactions Criticality Noted Date Comments Penicillins Hives Medium 01/07/2017 Medications * This document contains information received from the source organization and may not represent a complete record from that organization. traZODone (DESYREL) 50 mg tabletIndicatio ns:MDD (major depressive disorder), recurrent severe, without psychosis (CMS-HCC) Take 1 tablet (50 mg total) by mouth nightly as needed for sleep. 90 tablet 1 07/28/2024 Active ARIPiprazole (ABILIFY) 5 mg tabletIndicatio ns:MDD (major depressive disorder), recurrent severe, without psychosis (CMS-HCC) Take 1 tablet (5 mg total) by mouth in the morning. 90 tablet 1 07/28/2024 Active sertraline (ZOLOFT) 100 mg tabletIndicatio ns:MDD (major depressive disorder), recurrent severe, without psychosis (CMS-HCC),Gener alized anxiety disorder with panic attacks Take 1.5 tablets (150 mg total) by mouth in the morning. 135 tablet 1 08/29/2024 Active hydrOXYzine (ATARAX) 50 mg tabletIndicatio ns:Generalized anxiety disorder with panic attacks Take 1 tablet (50 mg total) by mouth 3 (three) times a day as needed for anxiety. 90 tablet 5 08/29/2024 Active Active Problems Problem Noted Date Diagnosed Date MDD (major depressive disord er), recurrent severe, without psychosis 2024 Generalized anxiety disorder with panic attacks 2024 At risk for intentional self-harm 07/11/2024 Acute appendicitis 02/20/2022 Encounters * This document contains information received from the source organization and may not represent a complete record from that organization. Date Type Department Care Team Description 08/29/2024 Travel 08/11/2024 Travel 07/28/2024 Travel from Last 3 Months Family History Medical History Relation Name Comments No Known Problems Father Heart disease Maternal Grandmother Cancer Maternal great-grandfather Lung cancer Maternal great-grandfather Relation Name Status Comments Father Alive Maternal Grandmother Maternal great-grandfather Mother Alive Social History Tobacco Use Types Packs/Day Years Used Date Smoking Tobacco: Never Smokeless Tobacco: Never Tobacco Cessation:Counseling Given: Not Answered Alcohol Use Standard Drinks/Week Comments Yes 0 (1 standard drink = 0.6 oz pur e alcohol) occasionally [facility] Utilities Answer Date Recorded In the past 12 months has th e [employer], gas, oil, or water company threatened to shut off services in your home? No 07/11/2024 PRAPARE - Transportation Answer Date Re corded In the past 12 months, has l ack of transportation kept you from medical appointments or from getting medications? No 07/2024 In the past 12 months, has l ack of transportation kept you from meetings, work, or from getting things needed for daily living? No 07/11/2024 Housing Instability Answer Date Recorde d Are you worried or concerned that in the next two months you may not have stable housing that you own, rent or stay in as a part of a household? No 07/11/2024 Childcare Answer Date Recorded Childcare Unknown 10/20/2018 Employment Answer Date Recorded Employment Unknown 10/20/2018 Hunger Screening Answer Date Recorded Within the past 12 months we worried whether our food would run out before we got money to buy more. Never True 08/29/2024 Within the past 12 months th e food we bought just didn't last and we didn't have money to get more. Never True 08/29/2024 Purpose - Life Answer Date Recorded Purpose and direction in life Unknown Sex and Gender Information Value Date Recorded Sex Assigned at Not on file Legal Sex Male 12:01 PM EDT Gender Identity Not on file Sexual Orientation Not on file Last Filed Vital Signs Vital Sign Reading Time Taken Comments Blood Pressure 120/82 08/29/2024 8:01 AM EDT Pulse 102 08/29/2024 8:01 AM EDT Temperature 36.7 C (98.1 F) 07/15/2024 7:16 AM EST Respiratory Rate 16 07/15/2024 7:16 AM EST Oxygen Saturation 96% 07/11/2024 2:11 PM EST Inhaled Oxygen Concentration - - Weight 176.9 kg (390 lb) 07/11/2024 6:33 PM EST Height 182.9 cm (6' 0.01 ) 07/11/2024 6:33 PM ES T Body Mass Index 52.88 07/11/2024 6:33 PM EST Plan of Treatment Health Maintenance Due Date Last Done Comments Depression Screening 2015 Adult BMI Follow Up Plan 07/11/2021 Influenza Vaccine 01/09/2025 Adult BMI Screening 07/11/2025 07/11/2024 Tobacco Screening 08/30/2025 08/30/2024 DTaP,Tdap and Td Vaccines (8 - Td or Tdap) 04/06/2034 04/06/2024, 01/04/2016, 01/18/2015, Additional history exists Medical Devices Not on file Insurance [facility] Advance Directives * Full Code (Latest Code Status on File) Date Activated Date Inactivated Comments 07/11/2024 8:34 PM 07/15/2024 7:44 PM * Full Code Date Activated Date Inactivated Comments 02/20/2022 8:51 AM 02/20/2022 1:58 PM Care Teams Licensing Officer Relationship Specialty Start Date End Date Leatha Diaz APRN-NP [address] [place] [address] PCP - General Nurse Practitioner 01/21/24
--- NOTE | 2024-10-13 09:12 | XR_ITS ---
The [address] [address] Patient Name: JET HERRERA MRN: [id number] date: 2005 Sex: M Assigned Patient Location: [facility] Current Patient Location: [facility] Accession/Order Number: [id number] Exam Date: 10/13/2024 10:30 Report Date: 10/13/2024 10:32 At the request of: SHERRI ORDOÑEZ Procedure: XR ribs RT min 3V w CXR1V PA CHEST WITH RIGHT RIBS: CLINICAL HISTORY: Right rib pain beneath the breast when coughing or sneezing for the past one to 2 months. COMPARISON: None The chest film shows no infiltrate, effusion or pneumothorax. The cardiac, hilar and mediastinal silhouettes are within normal limits. No vascular congestion is seen. AP and both oblique views of the right ribs show no displaced fractures or bony destruction. XR/XR ribs RT min 3V w CXR1V IMPRESSION: NO ACUTE FINDINGS. Impression dictated by: Delfina Mcnamara M.D. 10/13/2024 10:32 AM Dictation Location: [place] [address] Electronically authenticated by: [id number] Y Date: 10/13/2024 10:32
== END 2024-10-13 09:02 | disposition home or self-care (01) ==
LOC: RAD 09:07
PROVIDERS: PCP Nurse Practitioner Family; Visit Provider Nurse Practitioner Family
DX: R07.81 Pleurodynia (principal)
CPT/HCPCS: 71101

== ENCOUNTER 2024-10-21 11:51 | Emergency (ER) | payer BC, SELFPAY ==
--- OUTSIDE RECORDS SUMMARY | 2024-10-12 06:00 | XMS_ITS ---
[facility] Organization [facility] Address [address] [place] [address] Care Team Providers Care Secretary Specialist Name Role Phone Garret Corbinjoseline Primary Care Provider [phone] SHERRI ORDOÑEZ Unavailable [phone] Allergies Allergen (clinical drug ingredient) Drug/Non Drug Allergy documented on EMR Reaction Allergy Type Onset Date Status Penicillin anaphylaxis Drug Allergy 10/27/2007 Act ifrah REASON FOR VISIT referral from PCP for med mgnt of anxiety, bipolar disorder, Pt here to be established for depression and anxiety. Only sleeps 4-5 hrs a night. Only eats once a day. KSj Medications Medication SIG (Take, Route, Frequency, Duration) Notes Start Date End Date Status hydrOXYzine HCl 50 MG Oral for 30 Days Active Lurasidone HCl 20 MG 1 tablet once a day for 10 days, 2 tablets once a day for 20 days Orally for 30 days titration starter dose 10/12/2024 Active busPIRone HCl 10 MG Oral for 90 Days Not-Taking Sertraline HCl 100 MG Oral for 90 Days Active Social History Tobacco Use: Social History Observation Description Date Details (start date - stop date) Never Smoker NA - NA Depression Screening (PHQ-9): Question Answer Notes Little interest or pleasure in doing things Nearly every day Feeling down, depressed, or hopeless Nearly ever y day Trouble falling or staying a sleep, or sleeping too much Nearly every day Feeling tired or having little energy Nearly mika ry day Poor appetite or overeating Nearly every day Feeling bad about yourself-o r that you are a failure or have let yourself or your family down Nearly every day Trouble concentrating on thi ngs, such as reading the newspaper or watching television Nearly every day Moving or speaking so slowly that other people could have noticed. Or the opposite being so fidgety or restless that you have been moving around a lot more than usual Not at all Thoughts that you would be b abdullahi off , or of hurting yourself in some way Nearly every day(Consider Suicide Assessment Risk) Total Score 24 Intepretation Severe Depression AUDIT-C (Standard) Question Answer Notes Did you have a drink contain ing alcohol in the past year? Yes How often did you have a dri nk containing alcohol in the past year? Monthly or less (1 point) How many drinks did you have on a typical day when you were drinking in the past year? 5 or 6 drinks (2 points) How often did you have six o r more drinks on one occasion in the past year? Less than monthly (1 point) Points 4 Interpretation Positive Tobacco Control (Standard) Question Answer Notes Tobacco use: Nonsmoker Problems Problem Type SNOMED Code ICD Code Onset Dates Problem Status W/U Status Risk Notes Problem [id number] Bipolar disorder, current episode mixed, mild (F31.61) Active confirmed Vital Signs Height 72 in 10/12/2024 Weight 453.4 lbs 10/12/2024 BMI 61.49 kg/m2 10/12/2024 Blood pressure systolic 132 mm Hg 10/13/19 25 Blood pressure diastolic 85 mm Hg 025 Oximetry 96 % 10/12/2024 Heart Rate 93 /min 10/12/2024 Encounters Encounter Location Date Provider Diagnosis [address] [place] [address] 10/12/2024 Kip Soviak Bipolar disorder, cu rrent episode mixed, mild F31.61 Assessments Encounter Date Diagnosis (ICD Code) Assessment Notes Treatment Notes Treatment Clinical Notes Section Notes 10/12/2024 Bipolar disorder, current episode mixed, mild (ICD-10 - F31.61) Patient will trial Latuda 40 mg for the next 30 days follow-up to evaluate.. Patient verbally acknowledges understanding instructions including medication education and has no further questions comments or concerns at this time. . Follow in 1 Month . Recommended treatment for Bipolar disorder includes FDA approved and OFF label medications: second generation antipsychotics and mood stabilizers. Discussed life threatening side effect of Lamotrigine. Pt is to monitor for new skin rashes or sensation of a sunburn or itchiness or redness, mouth sores or sores in mucus membranes, and call provider immediately and or go to ER, and stop the medication. Second generation antipsychotic medications can cause headache, drowsiness, agitation, dizziness, nausea, or extrapyramidal symptoms such as tremors, muscle spasms, slowness of movement or jerking of muscles. . Stable . The patient verbalizes understanding with all questions answered thoroughly and is in agreement with treatment plan. . Continue current treatment. Call for problems . GOALS: . Maintain medication regimen . _Improve mood stability . _Improve anxiety control . _Improve social and interpersonal functioning . Patient/Guardian will call sooner if symptoms worsen. Patient understands to go to ER if needed if symptoms become severe. . Crisis Intervention plan was discussed and agreed upon. Patient/Guardian will call 911 in case of emergency. Emergency contact information was provided to the patient/guardian. . Pharmacological management: . Alternative medication plans were discussed with the patient/guardian. All relevant side effects and potential adverse effects were discussed with the patient/guardian. Standard cautions and potential benefits were discussed. Patient/Guardian consented to the start/continuation of the treatment. Plan Of Treatment Medication Medication Name Sig Start Date Stop Date Notes Lurasidone HCl 20 MG 1 tablet once a day for 10 days, 2 tablets once a day for 20 days Orally for 30 days 10/12/2024 titration starter do se Next Appt Details Follow Up: 4 Weeks, Reason: med check Provider Name:aCleb Corbin, 11/02/2024 08:45:00 AM, [address] [place] [address], [phone], Progress Notes * JET HERRERA ADOB:2005 (19 yo M)Acc No.[id number]:10/12/2024 Behavioral Health Patient: Veronique LUTHER JET A Provider: TE Valles :2005 A ge:19 Y S ex:Male Date:10/12/2024 Address:[address] [place], [place] [id number] Subjective: * Chief Complaints: * r eferral from PCP for med mgnt of anxiety, bipolar disorderPt here to be established for depression and anxiety. Only sleeps 4-5 hrs a night. Only eats once a day. KSj * HPI: C onstitutional: PYSCHIATRIC HISTORY: Psychiatrist: YES IN [place] Therapist: NO Past Diagnosis: BIPOLAR, DEPRESSION, ANXIETY Past Medications:hydrOXYzine, Sertraline . Hospitalizations:[facility] 08/02 Self injurious behaviors:YES Suicide Attempts:NO Drug/Alcohol Rehab:NO . FAMILY HX OF MENTAL DISORDERS: Mom -NO Dad -UNKNOWN First and second degree relatives, maternal and paternal sides:NO Family hx of suicide? NO Family hx of epilepsy? NO . SUBSTANCE DISORDERS: . LEGAL HX: Arrests:NO DUI:NO Probation: NO Violent to others:NO Bankruptcy: NO Other legal issues:NO . HX OF ABUSE: Hx of abuse or neglect:NO Witness to abuse:NO Reported to:N/A . SOCIAL HX: Born in: [place] Raised in: [place]/ [place] Currently resides in:[place] Who lives with you: 2 FRIENDS Siblings:NO Half-siblings:2 BROTHERS/ 1 SISTER Step-siblings: NO order:OLDEST Patient was raised by: MOM Parental relationship: GOOD Patient's childhood was described as:GOOD . DEVELOPMENTAL HX: Type of delivery: VAGINAL Term:YES Problems at : NO Smoking/alcohol/drug use with : NO Met developmental milestones:NO Speech delays:NO . 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 EMPLOYMENT: Currently employed:[employer] YEARS ON AND OFF Longest job held: [employer] Source of income: [employer] Difficulty holding a job:NO Retired:NO Receiving disability: . MARITAL HX: Martial status: NO # of marriages:N/A How long did marriage last:N/A Age at time marriage:N/A Describe relationship with spouse/partner:N/A Reason for divorce:N/A Sexual orientation:STRAIGHT Age became sexually active: 13 # of sexual partners: 3 Patient is here to discuss his depression. Patient is seen in extreme depression denies any suicidal ideations at this time. Patient was recently inpatient psychiatric facility in July 2024 where he was started on sertraline. Since that time he has been increased to 100 mg and has seen absolutely no benefit to this medication at all. Patient prior medication was 8 years ago when he was started on Vraylar which caused hyperactivity and patient did not continue that medication. * Medical History: * Surgical History: a ppendectormy 03/2022 * Hospitalization/Major Diagno stic Procedure: A dmitted to [facility] for depression 08/02 * Family History: F ather: unknown. M other: alive, Unknown autoimmune disease pt does not know the name.?Maternal Grand Father: alive. M aternal Grand Mother: , diagnosed with Lupus. 2 brother(s) , 1 sister(s) - healthy. . * Social History: G eneral: D epression Screening (PHQ-9) L ittle interest or pleasure in doing things?Nearly every day F eeling down, depressed, or hopeless N early every day T rouble falling or staying asleep, or sleeping too much N early every day F eeling tired or having little energy N early every day P oor appetite or overeating N early every day F eeling bad about yourself-or that you are a failure or have let yourself or your family down N early every day T rouble concentrating on things, such as reading the newspaper or watching television N early every day M oving or speaking so slowly that other people could have noticed. Or the opposite being so fidgety or restless that you have been moving around a lot more than usual N ot at all T houghts that you would be better off , or of hurting yourself in some way N early every day(Consider Suicide Assessment Risk) T otal Score 2 4 I ntepretation S evere Depression D rug/Alcohol: A JOAQUIM-C (Standard) D id you have a drink containing alcohol in the past year? Y es H ow often did you have a drink containing alcohol in the past year? M onthly or less (1 point) H ow many drinks did you have on a typical day when you were drinking in the past year? 5 or 6 drinks (2 points) H ow often did you have six or more drinks on one occasion in the past year? L ess than monthly (1 point) P oints 4 I nterpretation P ositive T obacco Use: T obacco Control (Standard) T obacco use: N onsmoker * Medications: T akinghydrOXYzine HCl 50 MG Tablet Oral Sertraline HCl 100 MG Tablet Oral Taking hydrOXYzine HCl 50 MG Tablet Oral Taking Sertraline HCl 100 MG Tablet Oral Not-Taking/PRNbusPIRone HCl 10 MG Tablet Oral Medication List reviewed and reconciled with the patientNot-Taking/PRN busPIRone HCl 10 MG Tablet Oral Medication List reviewed and reconciled with the patient * Allergies: P enicillin: anaphylaxis - Allergy - Criticality High - Onset Date 10/27/2007no[Allergies Verified] Objective: * Vitals: H t: 72 in, Wt: 453.4 lbs, BMI:61.49Index, BP: 132/85 mm Hg, SaO2:96%, HR: 93 /min. * Examination: G eneral Examination: GENERAL APPEARANCE: A lert and oriented, cooperative. NEUROLOGIC EXAM: a lert and oriented x 3, no tremor, normal gait, appropriate for age. PSYCH g ood eye contact, oriented to person, oriented to place, oriented to time, appropriate mood and affect, denies SI/HI, affect normal, affect appropriate, appropriate for age, good eye contact, no thought disorder. General . AIMS EXAM:.AIMS Muscles of Facial Expression: NoneAIMS Lips and Perioral Area: NoneAIMS Jaw Area Involuntary Movements: NoneAIMS Tongue Involuntary Movements: NoneAIMS Upper Arms, Wrists, Hands, Fingers: NoneAIMS Lower Legs, Knees, Ankles, Toes: NoneAIMS Overall Abnormal Movement Severity: NoneAIMS Incapacitation Abnormal Movement: NoneAIMS Self Awareness of Abnormal Movement: Aware, None notedAIMS Current Teeth, Denture Problems: NoAIMS Movements Disappear in Sleep: No. .MENTAL STATUS EXAM:.Appearance: Appropriately dressed and groomed, good eye contact, cooperative, pleasantBehavior/Motor Activity: NormalGait/Station: Within normal limitsBH Speech: NormalMood: GoodAffect: FullThought processes/Associations: Logical and goal directedThought Content: Non-psychoticCognition/Attention/Memory/Concentration: Alert and oriented x 4; grossly intact attention; memory-recent/remote judged adequate by interviewerInsight: GoodJudgement: GoodBH language: Within normal limitsFund of Knowledge: Adequate.. Assessment: * Assessment: 1. B ipolar disorder, current episode mixed, mild - F31.61 (Primary) Plan: * Treatment: * Procedure Codes: 3 079F DIAST BP 80-89 MM [id number] SYST BP GE 130 - 139MM [id number] RVW MEDS BY RX/ IN [id number] NEW PSYCH DIAG EVAL W/MED SRVCS * Follow Up: 4 Weeks (Reason: med check) Care Plan: * Problems: * Images: * Sign off status: Completed true * Provider: TE Valles Date: 0 10/12/2024 Generated for Dylan ng/Syed/eTransmitting on: 0 10/21/2024 12:00 PM EDT History and Physical Notes * HPI (History of Present Illness) Category Sub-Category Detail Notes Category Not es Constitutional PYSCHIATRIC HISTORY: Psychiatrist: YES IN [place] Therapist: NO Past Diagnosis: BIPOLAR, DEPRESSION, ANXIETY Past Medications:hydrOXYzine, Sertraline . Hospitalizations:[facility] 08/02 Self injurious behaviors:YES Suicide Attempts:NO Drug/Alcohol Rehab:NO . FAMILY HX OF MENTAL DISORDERS: Mom -NO Dad -UNKNOWN First and second degree relatives, maternal and paternal sides:NO Family hx of suicide? NO Family hx of epilepsy? NO . SUBSTANCE DISORDERS: . LEGAL HX: Arrests:NO DUI:NO Probation: NO Violent to others:NO Bankruptcy: NO Other legal issues:NO . HX OF ABUSE: Hx of abuse or neglect:NO Witness to abuse:NO Reported to:N/A . SOCIAL HX: Born in: [place] Raised in: [place]/ [place] Currently resides in:[place] Who lives with you: 2 FRIENDS Siblings:NO Half-siblings:2 BROTHERS/ 1 SISTER Step-siblings: NO order:OLDEST Patient was raised by: MOM Parental relationship: GOOD Patient's childhood was described as:GOOD . DEVELOPMENTAL HX: Type of delivery: VAGINAL Term:YES Problems at : NO Smoking/alcohol/drug use with : NO Met developmental milestones:NO Speech delays:NO . 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 EMPLOYMENT: Currently employed:[employer] YEARS ON AND OFF Longest job held: [employer] Source of income: [employer] Difficulty holding a job:NO Retired:NO Receiving disability: . MARITAL HX: Martial status: NO # of marriages:N/A How long did marriage last:N/A Age at time marriage:N/A Describe relationship with spouse/partner:N/A Reason for divorce:N/A Sexual orientation:STRAIGHT Age became sexually active: 13 # of sexual partners: 3 Patient is here to discuss his depression. Patient is seen in extreme depression denies any suicidal ideations at this time. Patient was recently inpatient psychiatric facility in July 2024 where he was started on sertraline. Since that time he has been increased to 100 mg and has seen absolutely no benefit to this medication at all. Patient prior medication was 8 years ago when he was started on Vraylar which caused hyperactivity and patient did not continue that medication. Examination Category Sub-Category Detail Notes Category Not es General Examination GENERAL APPEARANCE: Alert an d oriented, cooperative NEUROLOGIC EXAM: alert and oriented x 3, no tremor, normal gait, appropriate for age DIABETIC FOOT EXAM Monofilament: normal PSYCH good eye contact, or iented to person, oriented to place, oriented to time, appropriate mood and affect, denies SI/HI, affect normal, affect appropriate, appropriate for age, good eye contact, no thought disorder General .AIMS EXAM:.AIMS Mus cles of Facial Expression: NoneAIMS Lips and Perioral Area: NoneAIMS Jaw Area Involuntary Movements: NoneAIMS Tongue Involuntary Movements: NoneAIMS Upper Arms, Wrists, Hands, Fingers: NoneAIMS Lower Legs, Knees, Ankles, Toes: NoneAIMS Overall Abnormal Movement Severity: NoneAIMS Incapacitation Abnormal Movement: NoneAIMS Self Awareness of Abnormal Movement: Aware, None notedAIMS Current Teeth, Denture Problems: NoAIMS Movements Disappear in Sleep: No. .MENTAL STATUS EXAM:.Appearance: Appropriately dressed and groomed, good eye contact, cooperative, pleasantBehavior/Motor Activity: NormalGait/Station: Within normal limitsBH Speech: NormalMood: GoodAffect: FullThought processes/Associations: Logical and goal directedThought Content: Non-psychoticCognition/Attention/Memory/Concentration: Alert and oriented x 4; grossly intact attention; memory-recent/remote judged adequate by interviewerInsight: GoodJudgement: GoodBH language: Within normal limitsFund of Knowledge: Adequate.
--- OUTSIDE RECORDS SUMMARY | 2024-10-21 12:00 | XMS_ITS | Encounter Summary ---
Author Organization [facility] Address [id number] [address] [place] [address] Care Team Providers Care Health Education Coordinator Name Role Phone Leatha Diaz APRN-CHECO Primary Care Provid er Encounter Details Date Type Department Care Team (Late st Contact Info) Description 07/22/2023 Orders Only [facility] [address] [phone] Emiliana Lester MD [address] [facility] [address] [place] [address] Social History Tobacco Use Types Packs/Day Years [...] (07/22/2023 9:00 AM EDT) Emiliana Lester MD [facility] Final Result MANUALLY TRANSCRIBED RESULTS documented in this encounter Visit Diagnoses Not on filedocumented in this encounter Care Teams Health Education Coordinator Relationship Specialty Start Date End Date Leatha Diaz APRN-NP [address] [place] [address] PCP - General Nurse Practitioner 01/21/24 documented as of this encounter
--- OUTSIDE RECORDS SUMMARY | 2024-10-21 12:00 | XMS_ITS | Clinical Summary ---
Author Organization [facility] tem Address [facility] [place] [address] Care Team Providers Care Specialist Employee Labor Relations Name Role Phone Leatha Diaz APRN-CHECO Primary [...] = 0.6 oz pur e alcohol) occasionally [facility] Utilities Answer Date Recorded In the past 12 months has th e [employer], gas, oil, or water company threatened to [...] exists Medical Devices Not on file Insurance [facility] Advance Directives * Full Code (Latest Code Status on File) Date Activated Date Inactivated Comments 07/11/2024 8:34 PM 07/15/2024 7:44 PM * Full Code Date Activated Date Inactivated Comments 02/20/2022 8:51 AM 02/20/2022 1:58 PM Care Teams Specialist Employee Labor Relations Relationship Specialty Start Date End Date Leatha Diaz APRN-NP [address] [place] [address] PCP - General Nurse Practitioner 01/21/24
--- OUTSIDE RECORDS SUMMARY | 2024-10-21 12:00 | XMS_ITS | Patient Health Record ---
Author Organization [facility] Address [address] [place] [address] Care Team Providers Care Electrician Shop Name Role Phone Caleb Corbin Primary Care [...] health and behavioral disorders (Z13.30) Referral Organization [facility] Referring Provider First Name SHERRI Referring Provider Last Name TIAGO Referring Provider [facility] icine Referred Organization [facility] [place] Referred Provider Caleb Corbin Referred Address [address] [place], [place],[address],[place] Referred Provider Specialty Medicatio ns Referral Priority [...] Problem Status W/U Status Risk Notes Problem [id number] Bipolar disorder, current episode mixed, mild (F31.61) Active confirmed Vital Signs Heart Rate 93 /min 10/12/2024 Oximetry 96 % 10/12/2024 Blood pressure diastolic 85 mm Hg 10/12/2024 Height 72 in 10/12/2024 Blood pressure systolic 132 mm Hg 10/12/2024 Weight 453.4 lbs 10/12/2024 BMI 61.49 kg/m2 10/12/2024 Encounters Encounter Location Date Provider Diagnosis [place] [address] [place] [address] 10/12/2024 Kip Soviak Bipolar disorder, cu rrent [...] Details Provider Name:Caleb Corbin, 11/02/2024 08:45:00 AM, [address] [place] [address], [id number], Insurance Providers Payer Name Payer Address Payer Phone Subscriber Number Group Number Insured Name Patient Relationship to Insured Coverage Start Date Coverage End Date ANTH Primary [address] [place] [address] [phone] [id number] JET HERRERA Self - patient is the insured Medical (General) History Medical History History ICD Code Anxiety Depression Bipolar Disorder Sleep apnea Surgical History Surgery Date(Month/Year) appendectormy 03/2022 Hospitalization History Reason Date(Month/Year) Admitted to [facility] for depressi on 08/02
--- OUTSIDE RECORDS SUMMARY | 2024-10-21 12:00 | XMS_ITS | Encounter Summary ---
Author Organization [facility] Address [facility] [place] [address] Care Team Providers Care Environmental Services Coordinator Name Role Phone Leatha Diaz APRN-CHECO Primary Care Provid er Reason for Visit * Reason Comments Med Refill Encounter Details Date Type Department Care Team (Late st Contact Info) Description 10/22/2023 Refill [facility] [address] [place] [address] [address] [place] [address] [place] [address] [place] [address] [address] [place] [address] Chronic fatigue; Pain in both [...] hands documented in this encounter Care Teams Environmental Services Coordinator Relationship Specialty Start Date End Date Leatha Diaz APRN-NP [address] [place] [address] PCP - General Nurse Practitioner 01/21/24 documented as of this encounter
--- OUTSIDE RECORDS SUMMARY | 2024-10-21 12:00 | XMS_ITS | Clinical Summary ---
Author Organization [facility] Address [address] [place] [address] Care Team Providers Care Embedded Software Manager Name Role Phone Baljit Briscoe Primary Care Provider [phone] Social History Tobacco Use Types Packs/Day Years [...] - 19+ 3-dose series) 07/11/2022 COVID-19 Vaccine (1 - 2023-2 5 season) 2024 Influenza Vaccine (Season Ended) 2025 HIB Vaccine Aged Out No longer eligi [...] Insurance INDIRA LEDEZMA INDIRA LEDEZMA Care Teams Embedded Software Manager Relationship Specialty Start Date End Date Baljit Briscoe [address] [place] [address] PCP - General Family Medicine 12/25/17
--- OUTSIDE RECORDS SUMMARY | 2024-10-21 12:00 | XMS_ITS | Clinical Summary ---
Author Organization [facility] Healthcare Address [address] [place] [address] Care Team Providers Care Billboard Mechanic Name Role Phone Unavailable Primary Care Provider [...]
[2024-10-21 12:12] VITALS: BP 132/85; PULSE 104; TEMP 37.1; O2SAT 95; BMI 59.4
--- NOTE | 2024-10-21 12:26 | XR_ITS ---
The [place] [id number] Patient Name: JET HERRERA MRN: [id number] date: 2005 Sex: M Assigned Patient Location: ER Current Patient Location: ER Accession/Order Number: [id number] Exam Date: 10/21/2024 12:48 Report Date: 10/21/2024 12:50 At the request of: TELMA LARSON MD Procedure: XR chest 2V PA AND LATERAL CHEST: CLINICAL HISTORY: Right lower chest pain when coughing or sneezing for the past 1 to 2 months. COMPARISON: 10/13/2024 Slight elevation of the right hemidiaphragm is again seen. There is no developing consolidation, effusion or pneumothorax. The cardiac, hilar and mediastinal silhouettes are within normal limits. There is no vascular congestion. The bony thorax, as visualized appears intact . XR/XR chest 2V IMPRESSION: NO ACUTE CARDIOPULMONARY ABNORMALITY. Impression dictated by: Delfina Mcnamara M.D. 10/21/2024 12:50 PM Dictation Location: [place] [address] Electronically authenticated by: [id number] Y Date: 10/21/2024 12:50
--- NOTE | 2024-10-21 14:13 | ED.CHESTPAI1 ---
HPI - Chest Pain General Chief Complaint: Chest Pain Stated Complaint: CHEST PAINS Time Seen by Provider: 10/21/24 12:26 Mode of arrival: walk-in History of Present Illness HPI narrative: The patient is coming to the ER with a right sided chest wall pain, it comes only when he coughs or sneezes and is not going on at least for a month He does have a lift weights at work He denies any other complaint Related Data Home Medications ?Medication ?Instructions ?Recorded ?Confirmed sertraline 50 mg tablet 50 mg PO DAILY 01/24/24 10/21/24 Previous Rx's ?Medication ?Instructions ?Recorded ibuprofen 600 mg tablet 600 mg PO Q8H #10 tabs 10/21/24 Allergies Allergy/AdvReac Type Severity Reaction Status Date / Time Penicillins Allergy Hives Verified 10/21/24 12:11 Review of Systems ROS Status of ROS 10 or more systems reviewed and unremarkable except as noted in history and below PFSH PFS Social History Little interest or pleasure in doing things: nearly every day Feeling down, depressed, or hopeless: nearly every day Exam Narrative Exam Narrative: Nurses notes and vital signs reviewed and patient is not hypoxic. General: Well-appearing and in no apparent distress. Skin: Warm, dry, no pallor noted. No rash. Head: Normocephalic, atraumatic. Neck: Supple, non-tender. Eye: Pupils are equal, round and EOMI. No scleral icterus. Ears, Nose, Mouth, and Throat: TM are clear, no nasal mucosal hypertrophy. Oral mucosa is moist, no posterior oropharynx erythema, uvula is mid-line Cardiovascular: Regular Rate and Rhythm without murmur, gallop or rub. Respiratory: No accessory muscle use or respiratory distress. Lungs are clear to auscultation, no wheezing, rales or rhonchi Chest Wall: Objective tenderness in the right side of the chest wall and no ecchymosis or any skin changes Back: No midline thoracic or lumbar vertebral tenderness. No CVA tenderness Musculoskeletal: normal ROM, no calf or popliteal tenderness, no lower extremity edema/swelling GI: Abdomen is soft, non-distended. Normal bowel sounds. No masses appreciated. No tenderness to palpation. No rebound, guarding, or rigidity noted. Neurological: A&O x4. No cranial nerve dysfunction observed. No truncal ataxia. Moves all extremities. Sensation intact. Psychiatric: Cooperative and interactive. Normal mood and affect. Constitutional Vital Signs, click to edit/add: Last Vital Signs Temp 98.7 F 10/21/24 12:12 Pulse 79 10/21/24 14:30 Resp 18 10/21/24 14:30 BP 147/97 H 10/21/24 14:30 Pulse Ox 99 10/21/24 14:30 O2 Del Method Room Air 10/21/24 14:30 Course Vital Signs Vital signs: Vital Signs Temperature 98.7 F 10/21/24 12:12 Pulse Rate 104 H 10/21/24 12:12 Respiratory Rate 20 10/21/24 12:12 Blood Pressure 132/85 10/21/24 12:12 Pulse Oximetry 95 10/21/24 12:12 Oxygen Delivery Method Room Air 10/21/24 12:12 Temperature 98.7 F 10/21/24 12:12 Pulse Rate 79 10/21/24 14:30 Respiratory Rate 18 10/21/24 14:30 Blood Pressure 147/97 H 10/21/24 14:30 Pulse Oximetry 99 10/21/24 14:30 Oxygen Delivery Method Room Air 10/21/24 14:30 MDM - Chest Pain MDM Narrative Medical decision making narrative: X-ray of the chest showed no acute pathology and the patient pain is mostly muscular Patient has been going on for months associated with sneezing or coughing and the patient does not have a regular cough that is productive He was treated with Toradol in the ER and also treated with ibuprofen to go home for the next 3 days The patient is to follow up with primary care physician in next 2-3 days or to return to the emergency department should any of the signs or symptoms worsen or new symptoms develop. The patient agrees with the following Diagnosis and Treatment plan and the patient will be discharged home. Discharge Plan Discharge Chief Complaint: Chest Pain Clinical Impression: Sprain of chest wall Patient Disposition: Home, Self-Care Time of Disposition Decision: 14:14 Condition: Good Mode of Transportation: Private Vehicle Prescriptions / Home Meds: New ibuprofen 600 mg tablet 600 mg PO Q8H Qty: 10 0RF No Action sertraline 50 mg tablet 50 mg PO DAILY Print Language: Mosotho Instructions: Costochondritis (DC) Referrals: SHERRI ORDOÑEZ [Primary Care Provider, Unknown] - 1 week Discharge Date/Time: 10/21/24 14:30
[2024-10-21] MEDS: KETOROLAC TROMETHAMINE 60 MG/2 ML VIAL IM (14:21)
[2024-10-21 14:30] VITALS: BP 147/97; PULSE 79; O2SAT 99
== END 2024-10-21 14:30 | disposition home or self-care (01) ==
PROVIDERS: Emergency Provider Emergency Medicine; PCP Nurse Practitioner Family
DX: S23.9XXA Sprain of unspecified parts of thorax, initial encounter (principal); R07.89 Other chest pain
CPT/HCPCS: 71046; 96372; 99284; J1885

== ENCOUNTER 2025-03-01 09:17 | Outpatient (OUT) | payer BC, SELFPAY ==
--- OUTSIDE RECORDS SUMMARY | 2025-03-01 04:59 | XMS_ITS | Continuity of Care Document ---
Author Organization [facility] Address [address] [place] [address] Phone Care Team Providers Care Drafting Clerk Name Role Phone Leatha Diaz APRN Primary Care Provider Adelaida Jiang CMA Attending Provider Leatha Escalona APRN Attending Provider Care Teams Patient Care Team Team Status: Active Member Role/Relationship Status Dates Leatha Diaz APRN ACTUARIAL INTERN-C Primary Care Provider Active Patient Care Team Team Status: Active Member Role/Relationship Status Dates Leatha Diaz APRN ACTUARIAL INTERN-C Primary Care Provider Active Start: January 04, 2025 Adelaida Jiang CMAAttending ProviderActiveStart: January 04, 2025 Patient Care Team Team Status: Inactive Member Role/Relationship Status Dates Leatha Diaz APRN ACTUARIAL INTERN-C Primary Care Provider Active Start: February End: March 01, 2025Leatha Diaz APRN ACTUARIAL INTERN-CAttending ProviderActive Start: March 01, 2025 End: March 01, 2025 Chief Complaint and Reason for Visit Chief Complaint Admit Date Amb Documentation January 04, 2025 9: 27am R Ankle Swelling March 01, 2025 8 :30am Reason for Visit Admit Date Ankle pain, right March 01, 2025 8 :30am Fatty liver March 01, 2025 8 :30am Mixed hyperlipidemia March 01, 2025 8:30am Right foot pain March 01, 2025 8 :30am Allergies, Adverse Reactions, Alerts Allergen Type Severity Reaction Last Updated Verified Status Penicillins Allergy Severe Hives March 01, 2025 8:34am Ye s Active Social History Smoking Status Status Start Date End Date Date of Observa tion Never smoked tobacco (finding) August 31, 2024 1:51pm Observation Status Observation Response Date of Response Legal Sex [facility] (finding) [facility] Family History Relationship Condition Age at Onset Recorded Date/T priya father Unknown family medical history Unknown motherFibromyalgiaUnknownDisorder of thyroidUnknown Problems Active Problems Problem Diagnosis/Recorded Date Onset Date Stat us Change in bowel habit December 31, 2023 10:51am Unknow n Active Sciatica, right side June 16, 2024 11:51am Unknow n Active Frequent nocturnal awakening February 28, 2024 9:37am Unknown Active Morning headache February 28, 2024 9:37am Unknown Active Family history of Luis thyroiditis July 07, 2023 3:11pm Unknown Active Fatigue July 07, 2023 3:11pm Unknown A ctive Abdominal cramping December 31, 2023 10:51am Unknown Active Sleep disturbance July 08, 2023 10:09am Unknown Active Obesities, morbid July 08, 2023 10:09am Unknown Active Multiple joint pain July 08, 2023 10:08am Unknow n Active Fatty liver July 06, 2023 1:20pm Unknown A ctive Positive TENA (antinuclear antibody) July 13, 2023 11 :26am Unknown Active Abnormal weight gain August 13, 2023 11:12am Unknown Active Anxiety August 31, 2024 1:25pm Unknown Acti ve Bipolar disorder July 06, 2023 1:20pm Unknown Active Depression August 13, 2023 11:21am Unknown Acti ve Blood glucose elevated August 13, 2023 10:52am Unknown Active Mixed hyperlipidemia September 10, 2023 11:21am Unknown Active Tachycardia October 22, 2023 10:09am Unknown Acti ve Adult BMI 50.0-59.9 kg/sq m September 10, 2023 11:22am Unkn own Active Right knee pain September 24, 2023 2:51pm Unknown Act ifrah Ankle pain, right March 01, 2025 8:51am Unknown Active Right foot pain March 01, 2025 8:51am Unknown Active Vitamin D deficiency July 07, 2023 3:11pm Unknow n Active Inactive/Resolved Problems Problem Diagnosis/Recorded Date Onset Date Stat us Rib pain on right side October 13, 2024 8:45am Unknown Resolved Left lower quadrant abdomina l tenderness December 31, 2023 10:53am Unknown Resolved Pilonidal abscess of cleft February 09, 2024 9:1 3am Unknown Resolved Pilonidal cyst January 28, 2024 2:47pm Unknown Resolved Maxillary sinusitis August 27, 2023 10:56am Unknown Resolved Bloating December 31, 2023 10:51am Unknown Re solved Blood in stool December 31, 2023 10:50am Unknown Resolved Decreased appetite December 31, 2023 10:53am Unknown Resolved Abdominal pain February 25, 2024 4:15pm Unknown Resolved Bronchitis August 27, 2023 10:56am Unknown Res olved Medications Medication Status Dose Units Route Directions Qty Days Refills S tart Date Stop Date End Date Reason(s) Instructions Adherence Cholecalciferol (Vitamin D3) 1,250 mcg (50,000 unit) capsule Discontinued 1250 MCG PO every week 5 30 1 July 09, 2023 1:00am October 22, 2023 9:43amtake above dose for 8 weeks and then start 2,000 units daily of OTC vitamin d3Sod Picosulf-Mag Ox-Citric Ac (Clenpiq) 10 mg-3.5 gram- 12 gram/175 mL qmuihlkiYuspqhxonjho543EYLI.HNLUIKA60149Msqkchh 2023 12:00amNovember 2023 10:58amFollow instructions given by office Pantoprazole 40 mg tablet,delayed release (DR/EC)Rqwtqbdrlvfb28QXOMAyymu72727 March 22, 2024 1:00amJune 2024 8:33amIbuprofen 200 mg tablet Gwfhzxysjwrd163WVDFGysyd 6 hours as neededFebruary 2023 1:00amJune 2023 9:43amSemaglutide (Weight Loss) (Wegovy) 0.25 mg/0.5 mL pen injector Discontinued0.25MGSUBCUTevery vajz4668Milqq 2023 12:00amMay 2023 10:37amadminister weeks 1 through 4 of therapycholecalciferol (vitamin D3) Bvfvcrujqgwe1YQDMSFjmosYxyj 2023 12:00amNovember 2023 10:58am Sertraline 25 mg uyweifGzhxggpjrghg75DZTFBizpp22997Kmxz 2023 12:00amJuly 2023 8:43amDepression Depression, unspecifiedPrednisone 20 mg nbycymVcdvkadqyygl85UQWK.MTLIPTP708 June 16, 2024 1:00amApril 2024 1:01pmTake 3 tabs po daily x 3 days, then take 2 tabs po daily x 3 days, then take 1 tab po daily x 3 days. Hydroxyzine Hcl 50 mg jykupxEkhezxkyfrkx61XSCVOkidr times daily as neededApril 2024 12:00amJun2024 8:33amSertraline 100 mg wmxclsGtaspsvhogxe589YC PODailyApril 2024 12:00amJune 2024 8:33amBuspirone 5 mg tablet Tyqcwaldtfge2RJSHSysgq cqlqg91035Vjrrj 2024 12:00amMay 2024 9:21am Anxiety Anxiety disorder, unspecifiedBuspirone 10 mg iwdutuRyideaqeitul32AXNOGriuq daily 641331Etj 2024 9:21amJune 2024 8:33amAnxiety Anxiety disorder, unspecifiedSemaglutide (Weight Loss) (Wegovy) 0.25 mg/0.5 mL pen injectorDiscontinued0.25MGSUBCUTevery weekMa2023 10:37amMay 2023 10:55amadminister weeks 1 through 4 of therapyDoxycycline Monohydrate 100 mg wwoxvjNxtfikvwitlb692CTIOQefcu ueyxq20748Buhds 2023 12:00amMay 2023 10:35amMaxillary sinusitis Bronchitis Chronic maxillary sinusitis Bronchitis, not specified as acute or chronicBenzonatate 200 mg capsule Gftizksvmjzt282LCVIShydt times daily as needed for bzofh15805Szozk 2023 12:00amMay 2023 10:35amBronchitis Bronchitis, not specified as acute or chronicSertraline 50 mg tabletDiscontinued 94KAHRUeaqm37329Eejn 2023 8:42amOctober 2023 3:36pmDepression Depression, unspecifiedAzithromycin 250 mg cubcvsIkafslzdffnv410YIWYxuvty399Uixi 2023 12:00amJuly 2023 11:26amBronchitis Bronchitis, not specified as acute or chronicTake 2 tablets today and then 1 for the next 4 daysSemaglutide (Ozempic) 0.25 mg or 0.5 mg (2 mg/3 mL) pen injector Discontinued0.25MGSUBCUTevery Oct2023 12:00amOctober 2023 3:36pmsampleDicyclomine 10 mg rrmbnrqBwmctzwngztn48JKBDYoocz times daily as needed for abdominal ytcs83237Jblhtkc 2023 12:00amNovember 2023 10:58amAbdominal pain Unspecified abdominal painSulfamethoxazole-Trimethoprim (Bactrim Ds) 800-160 mg wygfzjXylvvzumstfg7XUMFVGjvub jqxgf0951Rzkclpqq 2023 1:00amFebruary 2024 11:01amPilonidal cyst Pilonidal cyst without abscessAripiprazole 5 mg cdmqtcBlglcj7EYNDRjbpzEkzz 2024 12:00amComplies with drug therapy Immunizations Immunization Event Date Not Given Reason Dose Number Mirror Machine Feeder Lot Number Reason(s) Given Vaccine Information Statement (VIS) Detail Administration Location Haemophilus B Conjugate/HepB- Comvax September 13 diphtheria, TT and 5 pertussis antigensAugust 2012diphtheria, TT and 5 pertussis antigensSeptember 2012diphtheria, TT and 5 pertussis antigens July 20, 2013DTap, unspecifiedMay 2003Hepatitis A Vaccine, adol/ped, 2 doseAugust 2012Hepatitis A Vaccine, adol/ped, 2 doseMarch 2013 Hepatitis B Vaccine, adol/ped dosageAugust 2012Hepatitis B Vaccine, adol/ped dosageSeptember 2012Hepatitis B Vaccine, adol/ped dosageDecember 2012Inactivated Poliovirus VaccineMay 2003Inactivated Poliovirus VaccineAugust 2012Inactivated Poliovirus VaccineSeptember 2012 Inactivated Poliovirus VaccineDecember 2012Inactivated Poliovirus Vaccine December 29, 2013Meningococcal QIA6PVozhvlhzb2014Meningococcal MCV4O January 04, 2016Meningococcal AGZ7LGyfzvg 2020Measles, Mumps, and Rubella Virus VaccineAugust 2012Measles, Mumps, and Rubella Virus VaccineSeptember 2012Pneumococcal Conjugate Vaccine, 7 valentMay 2003Tetanus, Diphtheria, Pertussis (Tdap)January 18, 2015Tetanus, Diphtheria, Pertussis (Tdap)January 04, 2016Varicella Virus VaccineAugust 2012Varicella Virus VaccineDecemb2012 Vital Signs Vital Reading Result Reference Range Collection Date/Time Height 72 [in_i] March 01, 2025 8:83dtJhyjqc519.38 [facility] 2024 8:35amBody Keckfzsfgue57.2 [degF]97.6-99.0[facility] 2024 8:35amHeart Pacj690 /pzv11-335 March 01, 2025 8:35amOxygen saturation by Pulse %95-100[facility] 2024 8:35amBP Zxpaifeo787 mm[Hg]100-140[facility] 2024 8:35amBP Cmsvajquj90 mm[Hg]60-100[facility] 2024 8:35amBMI (Body Mass Index)61.7 kg/m2 March 01, 2025 8:35am Advance Directives Advance Directive Response Recorded Date/ Time Advance Directives No December 18, 2018 9:54am Insurance Providers Guarantor Ta Duncan Address [address] [facility] [address]Ygtkpoh Info.Home Phone: Coverage Status Update:2024 Payer Group Member ID Coverage Type Subscriber Relationship to Subscriber Effective Date Expiration Date Addison LOMAX [id number] A Bauer Id: [id number] [address] [place] [id number] Home Phone: Email: [email or web address] [facility] [id number] Cook , D Id: [id number] [place] [address] Home Phone: Encounters Encounter Location(s) Arrival/Admit Date Discharge/Departure Date Discharge/Departure Disposition Provider(s) Non-patient / Non-visit -[facility] t 2024 9:27am Adelaida Jiang CMADeparted Physician/Provider [facility] 8:30amOctober 2024 8:57amDischarged to home care or self care (routine discharge)Leatha Diaz APRN CNP Recent Diagnosis Onset Date Admit Date Ankle pain, right Unknown March 01, 2025 8:30am Fatty liver Unknown March 01 8:30am Mixed hyperlipidemia Unknown February 8:30am Right foot pain Unknown March 01 8:30am Assessments Diagnosis Onset Date Resolution Status Admit Date Ankle pain, right acuteOctober 2024 8:30amFatty liveracuteOctober 2024 8:30amMixed hyperlipidemiaacuteOctober 2024 8:30amRight foot painacuteOctober 2024 8:30am Plan of Treatment Future Tests Future scheduled test information is unavailable Pending Tests Test Name Ordered Date Scheduled Date XR ankle RT min 3V* March 01, 2025 8:50am XR foot RT min 3V*March 01, 2025 8:50amComprehensive Metabolic PanelOctober 2024 8:45am Future Visits Future appointment information is unavailable Future Procedures Procedure Name Ordered Date Scheduled Date Complete Blood Count Auto Diff March 01 8:45am Lipid PanelOctober 2024 8:45am Future Medications Future medication information is unavailable Patient Instructions Patient instructions are unavailable
--- OUTSIDE RECORDS SUMMARY | 2025-03-01 09:22 | XMS_ITS | CCD ---
Author Organization [facility] Care Team Providers Care Frame Opener Name Role Phone NAOMI ROD Unavailable Unavailable [...] Consulting Unavailable HOUSE, DR SMILEY Attending Unavailable [facility], DR SANJAY aGvin Consulting Unavailable Jose Francisco Imariana Unavailable DO Baljit Pisano Primary Care Provider MD Wilver Felton Attending Provider MD Lewis Mirza Attending Provider HOUSE, BALJIT Keith Primary Care Unavailable Rafita [...] Care Unavailable Rafita Stover MD Attending Unavailable House, DO Smiley Primary Care Provider MD Lewis Mirza Attending Provider [phone] REUBEN Diazfer Primary Care Provider MD Kareem Tijerina Attending Provider [phone] Rohrbacher CLOTH CALENDER, [facility] Primary Care Provider Wilver Felton MD Attending Provider Asaariana, Imad Attending Unavailable Baljit Pisano [facility] Care Unavailable Asaad, Imad Admitting Unavailable Baljit Pisano [facility] Care Unavailable Lewis Mirza Admitting Unavailable Lewis Mirza Attending Unavailable Rohrbacher, [facility] Primary Care Unavailable Kareem Tijerina Admitting Unavailable Kareem Tijerina Attending Unavailable Jose Francisco, Wilver Attending Unavailable Rohrbacher, [facility] Primary Care Unavailable Asaad, Imad Admitting Unavailable Baljit Pisano DO Primary Care Provider Rohrbacher CLOTH CALENDER-FIRE OFFICIAL, [facility] Provid er Abbi JAY Primary Care Physician [phone] Nato Lezama Attending Unavailable Nato Lezama Attending Unavailable Rohrbacher CLOTH CALENDER-FIRE OFFICIAL, [facility] Provid er ROHRBACHER, LEATHA Primary Care Unavailable YARELY PACHECO Attending Unavailable ROHRBACHER, LEATHA Primary Care Unavailable ROHRBACHER, LEATHA Primary Care Unavailable KIKE SANFORD Attending Unavailable ROHRBACHER, LEATHA Primary Care Unavailable ROHRBACHER, LEATHA Referring Unavailable NEL, ZAYNAB Attending Unavailable ROHRBACHER, LEATHA Primary Care Unavailable ROHRBACHER, LEATHA Referring Unavailable NEL, ZAYNAB Attending Unavailable ROHRBACHER, LEATHA Primary Care Unavailable ROHRBACHER, LEATHA Referring Unavailable NEL, ZAYNAB Attending Unavailable ROHRBACHER, LEATHA Primary Care Unavailable ROHRBACHER, LEATHA Referring Unavailable ROHRBACHER, LEATHA Primary Care Unavailable GAIL MCELROY Attending Unavailable GAIL MCELROY Referring Unavailable ROHRBACHER, LEATHA Primary Care Unavailable GAIL MCELROY Referring Unavailable ROHRBACHER, LEATHA Primary Care Unavailable BELEN LANGSTON Referring Unavailable BELEN LANGSTON Admitting Unavailable BELEN LANGSTON Attending Unavailable ENID MONTENEGRO Attending Unavailable TYLER BOLTON Referring Unavailable ROHRBACHER, LEATHA Primary Care Unavailable ROHRBACHER, LEATHA Primary Care Unavailable COLUMBA MCCONNELL K Admitting Unavailable HOTEIT, WISSAM K Attending Unavailable PHYSICIANS, PROMEDICRachid [facility] Consulting Jacquie RICKY Hernandez Referring Unavailable ROHRBACHER, LEATHA Primary Care Unavailable ROHRBACHER, LEATHA Primary Care Unavailable FRANCI YU Attending Unavailab GAIL Martin Attending Unavailable ROHRBACHER, LEATHA Referring Unavailable ROHRBACHER, LEATHA Primary Care Unavailable BELEN LANGSTON Attending Unavailable ROHRBACHER, LEATHA Referring Unavailable ROHRBACHER, LEATHA Primary Care Unavailable BELEN LANGSTON Attending Unavailable ROHRBACHER, LEATHA Referring Unavailable ROHRBACHER, LEATHA Primary Care Unavailable FRANCI BYRD Attending Unavailable ROHRBACHER, LEATHA Referring Unavailable ROHRBACHER, LEATHA Primary Care Unavailable FRANCI BYRD Attending Unavailable ROHRBACHER, LEATHA Referring Unavailable ROHRBACHER, LEATHA Primary Care Unavailable Allergies Allergy ClassificationReported Allergen(s)Allergy TypeDate of OnsetReaction(s) Facility (1 source)penicillAMINEDrug AllergyhiWashington [facility] Other (7 sources)Penicillin; Translations: [penicillin]Drug AllergyUrticaria (disorder)[facility] (20 sources)Penicillins; Translations: [Penicillins]Allergy to substance 04-50-5524BhybwQbcqeikjyUniversity [facility]als [facility] Medications Current Medications MedicationDrug Class(es)DatesSig (Normalized)Sig (Original)acetaminophen 325 mg / oxyCODONE hydrochloride 5 mg oral tablet (1 source)Opioid AgonistStart: 01-23-2024 End: 65-15-5740mhhSARWIE-acetaminophen (PERCOCET) 5-325 mg per tablet Indications: Pilonidal cyst Take 1 tablet bymouth every 4 (four) hours as needed for pain for up to 7 days. Max Daily Amount: 6 tablets 6 tablet 01/23/2024 01/30/2024 ActiveARIPiprazole 5 mg oral tablet (13 sources)Atypical AntipsychoticStart: 03-16-1091sxzz 1 tablet by mouth in the morningARIPiprazole (ABILIFY) 5 mg tablet Indications: MDD (major depressive disorder), recurrent severe, without psychosis ([facility]) Take 1 tablet (5 mg total) by mouth in the morning. 90 tablet 1 07/28/2024 Activebismuth subsalicylate 17.5 mg/ml oral suspension (2 sources)BismuthStart: 67-25-5853tdof 15 mL by mouth every six hours as needed bismuth subsalicylate (PEPTO BISMOL) 262 mg/15 mL suspension Take 15 mL by mouth every 6 (six) hours as needed for indigestion. 360 mL 12/26/2022 Active cariprazine (1 source)Atypical AntipsychoticVraylar Activecefdinir 300 mg oral capsule (1 source)Cephalosporin AntibacterialStart: 07-05-2024 End: 29-94-1607obne 1 capsule by mouth every twelve hourscefdinir 300 mg Cap 300 mg = 1 cap(s), Oral, q12hr, X 7 day(s), # 14 cap(s), Refills(s) 0, Pharmacy: [id number], 183, cm, 07/05/24 21:52:00 EST, Height/Length Dosing, 195.2, kg, 07/05/24 21:52:00 EST, Weight Dosing Start Date: 07/05/24 Stop Date: 07/12/24 Status: Orderedclindamycin 300 mg oral capsule (1 source)Lincosamide AntibacterialStart: 01-21-2024 End: 29-92-5134okmj 1 capsule by mouth three times dailyclindamycin (CLEOCIN) 300 mg capsule Take 1 capsule (300 mg total) by mouth 3 (three) times a day for 7 days. 21 capsule 01/21/2024 01/28/2024 Activefamotidine 20 mg oral tablet (2 sources)Histamine-2 Receptor AntagonistStart: 68-92-9285uahd 1 tablet by mouth in the morning, then take 1 tablet by mouth at bedtimefamotidine (PEPCID) 20 mg tablet Take 1 tablet (20 mg total) by mouth in the morning and 1 tablet (2 0 mg total) before bedtime. 20 tablet 12/26/2022 Activeibuprofen 800 mg oral tablet (20 sources)Nonsteroidal Anti-inflammatory DrugStart: 01-05-2025 End: 52-31-9846sxjy 1 tablet by mouth every eight hours as needed for pain ibuprofen (MOTRIN) 800 mg tablet Take 1 tablet (800 mg total) by mouth every 8 (eight) hours as needed for pain. 30 tablet 01/05/2025 02/13/2025 Discontinued (Patient Stopped On Own)Start: 07-06-2023 End: 31-19-8938ytnn 1 tablet by mouth every six hours as neededIbuprofen 200 mg tablet Discontinued 200 MG PO Every 6 hours as needed July 06, 2023 1:00am October 22, 2023 9:43amStart: 85-19-3310qrcn 1 tablet by mouth every eight hours as needed for painibuprofen (MOTRIN) 600 mg tablet Take 1 tablet (600 mg total) by mouth every 8 (eight) hours as needed for pain. 12 tablet 06/30/2023 Active take 2 tablets by mouth twice daily at mealtime as neededIbuprofen 200 MG 2 tablet with food or milk as needed Orally twice a day Activemeloxicam 15 mg oral tablet (2 sources)Nonsteroidal Anti-inflammatory DrugStart: 79-50-2285rkitevtqz (MOBIC) 15 mg tablet Indications: Chronic fatigue , Pain in both hands Take one tablet inthe morning with food 30 tablet 2 07/21/2023 Activenaloxone (NARCAN) 4 mg/actuation spray,non-aerosol nasal spray (1 source)Start: 64-34-7809jvqifcyy (NARCAN) 4 mg/actuation spray,non-aerosol nasal spray Administer 1 spray (4 mg total) intoalternating nostrils as needed for opioid reversal. 01/23/2024 Activenaproxen 500 mg oral tablet (1 source)Nonsteroidal Anti-inflammatory DrugStart: 07-05-2024 End: 18-41-8725aygb 1 tablet by mouth twice dailynaproxen 500 mg Tab 500 mg = 1 tab(s), Oral, BID, X 10 day(s), # 20 tab(s), Refills(s) 0, Pharmacy:[facility] #[id number], 183, cm, 07/05/24 21:52:00 EST, Height/Length Dosing, 195.2, kg, 07/05/24 21:52:00 EST, Weight Dosing Start Date: 07/05/24 Stop Date: 07/15/24 Status: Orderedondansetron 4 mg disintegrating oral tablet (2 sources)Serotonin-3 Receptor AntagonistStart: 31-39-5663wfdk 1 tablet by mouth every eight hours as needed for nauseaondansetron ODT (ZOFRAN ODT) 4 mg disintegrating tablet Dissolve 1 tablet (4 mg total) on tongue every 8 (eight) hours as needed for nausea for up to 10 doses. 10 tablet 12/26/2022 Active tiZANidine 2 mg oral tablet (2 sources)Central alpha-2 Adrenergic AgonistStart: 30-65-9375bgnh 1 tablet by mouth every six hours as neededtiZANidine (ZANAFLEX) 2 mg tablet Take 1 tablet (2 mg total) by mouth every 6 (six) hours as neededfor muscle spasms. 12 tablet 06/30/2023 ActivetraZODone hydrochloride 50 mg oral tablet (1 source)Serotonin Reuptake InhibitorStart: 07-28-2024 End: 97-91-3828udbj 1 tablet by mouth once daily as needed for sleeptraZODone (DESYREL) 50 mg tablet Indications: MDD (major depressive disorder), recurrent severe, without psychosis (CMS-HCC) Take 1 tablet (50 mg total) by mouth nightly as needed for sleep. 90 tablet 1 07/28/2024 11/29/2024 Discontinued (Therapy completed) Completed/Discontinued Medications MedicationDrug Class(es)DatesSig (Normalized)Sig (Original)azithromycin 250 mg oral tablet (12 sources)Macrolide AntimicrobialStart: 11-09-2023 End: 45-53-8514Jccxbfatipay 250 mg tablet Discontinued 250 MG PO daily 6 November 09, 2023 12:00am December 09, 2023 11:26am Take 2 tablets today and then 1 for the next 4 daysbenzonatate 200 mg oral capsule (15 sources)Non-narcotic AntitussiveStart: 08-27-2023 End: 48-52-3050nufr 1 capsule by mouth three times daily as needed for cough Benzonatate 200 mg capsule Discontinued 200 MG PO Three times daily as needed for cough 2023 12:00am September 10, 2023 10:35ambusPIRone hydrochloride 10 mg oral tablet (5 sources)Start: 09-22-2024 End: 93-54-0913kzzy 1 tablet by mouth twice dailyBuspirone 10 mg tablet Discontinued 10 MG PO Twice daily 180 90 September 22, 2024 9:21am October 13, 2024 8:33amStart: 08-31-2024 End: 83-58-2493azkw 1 tablet by mouth twice dailyBuspirone 5 mg tablet Discontinued 5 MG PO Twice daily 60 30 August 31, 2024 12:00am September 22, 2024 9:21amCholecalciferol (20 sources)Vitamin DStart: 10-22-2023 End: 64-79-3576lqoe 1 capsule by mouth once dailycholecalciferol (vitamin D3) Discontinued 1 CAP PO Daily October 22, 2023 12:00am March 22, 2024 10:58am Start: 10-22-2023 End: 72-88-6846ubym 1 capsule by mouth once dailycholecalciferol (vitamin D3) Discontinued 1 CAP PO Daily October 21, 2023 11:00pm March 22, 2024 9:58am Start: 30-40-8407eyfx 1 capsule by mouth once dailycholecalciferol (vitamin D3) Active 1 CAP PO Daily October 22, 2023 12:00amStart: 07-09-2023 End: 25-54-8520dmas 1 capsule by mouth every weekCholecalciferol (Vitamin D3) 1,250 mcg (50,000 unit) capsule Discontinued 1250 MCG PO every week 10 07July 09, 2023 1:00am October 22, 2023 9:43am take above dose for 8 weeks and then start 2,000 units daily of OTC vitamin x0nryfpybwatl hydrochloride 10 mg oral capsule (5 sources)AnticholinergicStart: 02-25-2024 End: 31-29-1178scqc 1 capsule by mouth three times daily as needed for pain Dicyclomine 10 mg capsule Discontinued 10 MG PO Three times daily as needed for abdominal pain 30 February 25, 2024 12:00am March 22, 2024 10:58am doxycycline hyclate 100 mg oral capsule (17 sources)Tetracycline-class DrugStart: 11-27-2024 End: 53-87-6838pjea 1 capsule by mouth in the morning, then take 1 capsule by mouth at bedtimedoxycycline (VIBRAMYCIN) 100 mg capsule Take 1 capsule (100 mg total) by mouth in the morning and 1capsule (100 mg total) before bedtime. 11/27/2024 12/15/2024 Discontinued (Therapy completed)Start: 08-27-2023 End: 93-53-8230bsoo 1 tablet by mouth twice dailyDoxycycline Monohydrate 100 mg tablet Discontinued 100 MG PO Twice daily 27 02August 27, 2023 12:00am September 10, 2023 10:35amhydrOXYzine pamoate 50 mg oral capsule (4 sources)AntihistamineStart: 08-31-2024 End: 93-35-1015jzud 1 tablet by mouth three times daily as neededHydroxyzine Hcl 50 mg tablet Discontinued 50 MG PO Three times daily as needed August 31, 2024 12:00am October 13, 2024 8:33amStart: 08-29-2024 End: 00-93-9298vvrg 1 tablet by mouth three times daily as needed for anxiety hydrOXYzine (ATARAX) 50 mg tablet Indications: Generalized anxiety disorder with panic attacks Take1 tablet (50 mg total) by mouth 3 (three) times a day as needed for anxiety. 90 tablet 5 Discontinued (Therapy completed)pantoprazole 40 mg delayed release oral tablet (5 sources)Proton Pump InhibitorStart: 03-22-2024 End: 37-56-5099rcog 1 tablet by mouth once dailyPantoprazole 40 mg tablet,delayed release (DR/EC) Discontinued 40 MG PO Daily 56 56 March 22, 2024 1:00am October 13, 2024 8:33ampredniSONE 20 mg oral tablet (4 sources)Start: 06-16-2024 End: 55-21-8570qzsl 3 tablets by mouth once daily, then take 2 tablets by mouth once daily, then take 1 tablet by mouth once dailyPrednisone 20 mg tablet Discontinued 20 MG PO .COMPLEX June 16, 2024 1:00am August 31, 2024 1:01pm Take 3 tabs po daily x 3 days, then take 2 tabs po daily x 3 days, then take 1 tab po dailyx 3 days.Semaglutide (7 sources)Start: 02-09-2024 End: 81-86-0063Czyrjmqdoxf (Ozempic) 0.25 mg or 0.5 mg (2 mg/3 mL) pen injector Discontinued 0.25 MG SUBCUT every week February 08, 2024 11:00pm February 25, 2024 2:36pm sampleStart: 02-09-2024 End: 91-48-2163Funfoahsumx (Ozempic) 0.25 mg or 0.5 mg (2 mg/3 mL) pen injector Discontinued 0.25 MG SUBCUT every week February 09, 2024 12:00am February 25, 2024 3:36pm sampleStart: 62-31-7978Nuznyghrmbs (Ozempic) 0.25 mg or 0.5 mg (2 mg/3 mL) pen injector Active 0.25 MG SUBCUT every week February 09, 2024 12:00am sampleSemaglutide (Weight Loss) (20 sources)Start: 09-10-2023 End: 16-24-0128Boqyigtghjo (Weight Loss) (Wegovy) 0.25 mg/0.5 mL pen injector Discontinued 0.25 MG SUBCUT every week September 10, 2023 9:37am September 10, 2023 9:55am administer weeks 1 through 4 of therapyStart: 09-10-2023 End: 92-62-4946Vshjyrlhznd (Weight Loss) (Wegovy) 0.25 mg/0.5 mL pen injector Discontinued 0.25 MG SUBCUT every week September 10, 2023 10:37am September 10, 2023 10:55am administer weeks 1 through 4 of therapyStart: 08-13-2023 End: 42-00-4777Klfsgxgizsz (Weight Loss) (Wegovy) 0.25 mg/0.5 mL pen injector Discontinued 0.25 MG SUBCUT every week 07 08August 12, 2023 11:00pm September 10, 2023 9:37am administer weeks 1 through 4 of therapyStart: 08-13-2023 End: 36-26-0518Orefxhlrhid (Weight Loss) (Wegovy) 0.25 mg/0.5 mL pen injector Discontinued 0.25 MG SUBCUT every week 2 August 13, 2023 12:00am September 10, 2023 10:37am administer weeks 1 through 4 of therapyStart: 03-72-3881Gbcejygjkit (Weight Loss) (Wegovy) 0.25 mg/0.5 mL pen injector Active 0.25 MG SUBCUT every week 2 August 13, 2023 12:00am administer weeks 1 through 4 of therapy sertraline 100 mg oral tablet (20 sources)Serotonin Reuptake InhibitorStart: 08-31-2024 End: 08-93-8410eoij 1 tablet by mouth once dailySertraline 100 mg tablet Discontinued 100 MG PO Daily August 31, 2024 12:00am October 13, 2024 8:33am Start: 08-29-2024 End: 24-32-6687admc 1.5 tablets by mouth in the morningsertraline (ZOLOFT) 100 mg tablet Indications: MDD (major depressive disorder), recurrent severe, wi thout psychosis (CMS-HCC) , Generalized anxiety disorder with panic attacks Take 1.5 tablets (150 mg total) by mouth in the morning. 135 tablet 1 08/29/2024 11/29/2024 Discontinued (Therapy completed)Start: 11-09-2023 End: 16-50-7287gdpf 1 tablet by mouth once dailySertraline 50 mg tablet Discontinued 50 MG PO Daily 90 November 09, 2023 8:42am February 25, 2024 3 :36pmStart: 10-12-2023 End: 66-46-7884tlpe 1 tablet by mouth once dailySertraline 25 mg tablet Discontinued 25 MG PO Daily 30 October 12, 2023 12:00am November 09, 2023 8:43am Sod Picosulf-Mag Ox-Citric Ac (5 sources)Start: 02-29-2024 End: 32-05-1695Yzg Picosulf-Mag Ox-Citric Ac (Clenpiq) 10 mg-3.5 gram- 12 gram/175 mL solution Discontinued 175 MLPO .COMPLEX 350 1 February 29, 2024 12:00am March 22, 2024 10:58am Follow instructions given by officeStart: 02-29-2024 End: 09-43-1442Ztz Picosulf-Mag Ox-Citric Ac (Clenpiq) 10 mg-3.5 gram- 12 gram/175 mL solution Discontinued 175 MLPO .COMPLEX 350 1 February 28, 2024 11:00pm March 22, 2024 9:58am Follow instructions given by office sulfamethoxazole 800 mg / trimethoprim 160 mg oral tablet (4 sources)Dihydrofolate Reductase Inhibitor Antibacterial, Sulfonamide AntimicrobialStart: 04-18-2024 End: 39-53-1177kogy 1 tablet by mouth twice dailySulfamethoxazole-Trimethoprim (Bactrim Ds) 800-160 mg tablet Discontinued 1 TAB PO Twice daily 14 7December 2023 1:00am June 16, 2024 11:01am Problems Active Problems Problem ClassificationProblemDateDocumented DateEpisodic/ChronicAbdominal pain (20 sources)Abdominal tenderness of left lower quadrant; Translations: [Left lower quadrant abdominal tenderness]Onset: 322832-59-1176YomvzrdxZhfqzda disorders (20 sources)Anxiety; Translations: [Anxiety disorder, unspecified]Onset: 414297-39-6130TcepmjlIgvylsg obstructive pulmonary disease and bronchiectasis (20 sources)Bronchitis; Translations: [Bronchitis, not specified as acute or chronic]23-28-5565ZkplslrjWinhowyr mellitus without complication (19 sources)Hyperglycemia; Translations: [Hyperglycemia, unspecified]Onset: 393638-07-1593RiorxajoCztmwubre of lipid metabolism (20 sources)Mixed hyperlipidemia; Translations: [Mixed hyperlipidemia]09-10-2023 ChronicHeadache; including migraine (6 sources)Morning headache; Translations: [Morning headache]24-66-5462Zeicdzvo Hepatitis (7 sources)Hepatitis A test positive; Translations: [Hepatitis A without hepatic coma]EpisodicImmunizations and screening for infectious disease (20 sources)Contact with and (suspected) exposure to other viral communicable diseases; Translations: [Anti-nuclear factor positive]EpisodicMalaise and fatigue (1 source)Fatigue; Translations: [Chronic fatigue, unspecified]65-22-5319Pammmzs Malaise and fatigue (20 sources)Other fatigue; Translations: [Fatigue]Onset: 04-12-0396WezccylnXawp disorders (20 sources)Bipolar disorder; Translations: [Bipolar disorder, unspecified] Onset: 859344-96-7378CyivfazNmwofrncrme deficiencies (20 sources)Vitamin D deficiency; Translations: [Vitamin D deficiency, unspecified]23-77-0712RiszrvpHlzuv connective tissue disease (4 sources)Pain in right lower leg; Translations: [PAIN IN RIGHT LOWER LEG] Onset: 89-89-3311YchnfdamJoaaj gastrointestinal disorders (9 sources)Altered bowel function; Translations: [Change in bowel habit] 67-04-1239JubpmkwqZttdf gastrointestinal disorders (9 sources)Abdominal bloating; Translations: [Abdominal distension (gaseous)] 92-29-0049BknjccgvTkmdg gastrointestinal disorders (9 sources)Abdominal distension (gaseous); Translations: [Flatulence, eructation, and gas pain]29-28-8404PhpyunanGkyby gastrointestinal disorders (9 sources)Change in bowel habit; Translations: [Other symptoms involving digestive system]74-58-5729DbbgnvlaYifls liver diseases (20 sources)Steatosis of liver; Translations: [Fatty (change of) liver, not elsewhere classified]01-14-3495HyqrqozYnneg liver diseases (20 sources)Fatty (change of) liver, not elsewhere classified; Translations: [Other chronic nonalcoholic liver disease]Onset: 12-01-5899PjkwiywEbwfi lower respiratory disease (1 source)Rib pain; Translations: [Pleurodynia]36-19-8945QczclshyVyqet lower respiratory disease (1 source)Pleurodynia; Translations: [Chest pain, unspecified]16-19-1155Vnqdahvs Other male genital disorders (8 sources)Cyst of epididymis; Translations: [Cyst of epididymis]Onset: 426468-16-9554RrnuyrwzHytag male genital disorders (1 source)Disorder of male genital organ; Translations: [Hydrocele, unspecified] 15-65-5755NxvcjddcAhabb male genital disorders (2 sources)Cyst of epididymis; Translations: [Cyst of epididymis]Onset: 80-86-5565FzbvpavaNvunv male genital disorders (2 sources)Hydrocele, unspecified; Translations: [Hydrocele, unspecified]Onset: 74-02-2464WhktlmdeMsnsg nervous system disorders (1 source)Bilateral carpal tunnel syndrome; Translations: [Carpal tunnel syndrome, bilateral upper limbs]91-98-8209CftbqkaXaurh non-traumatic joint disorders (4 sources)Other specified arthritis, unspecified site; Translations: [OTHER SPECIFIED ARTHRITIS UNS SITE]Onset: 06-83-0667MfssgfcQtoww non-traumatic joint disorders (18 sources)Multiple joint pain; Translations: [Pain in unspecified joint] 42-48-3702PghakvihMouqg non-traumatic joint disorders (4 sources)Pain in unspecified joint; Translations: [Pain in joint, multiple sites]26-13-0626MoarwwymQldcg non-traumatic joint disorders (20 sources)Pain in left knee; Translations: [Left knee pain]06-78-0155Glfjawdi Other non-traumatic joint disorders (5 sources)Pain in right knee; Translations: [Pain in joint, lower leg] 54-69-7308WmgwxslaLytrx nutritional; endocrine; and metabolic disorders (18 sources)Morbid obesity; Translations: [Morbid (severe) obesity due to excess calories]35-29-9272ObepxquTkdey nutritional; endocrine; and metabolic disorders (5 sources)Morbid (severe) obesity due to excess calories; Translations: [Morbid obesity]22-68-2922AziqthtRxqtc nutritional; endocrine; and metabolic disorders (14 sources)Body mass index 40+ - severely obese; Translations: [Body mass index (BMI) 50.0-59.9, adult]72-88-5162WqvfckiQeisu nutritional; endocrine; and metabolic disorders (15 sources)Body mass index (BMI) 50.0-59.9, adult; Translations: [Body Mass Index 50.0-59.9, adult]01-19-6589LvottkfYofdn nutritional; endocrine; and metabolic disorders (1 source)Body mass index (BMI) 60.0-69.9, adult; Translations: [Body mass index (BMI) 60.0-69.9, adult]Onset: 03-09-7872WxixfmpImfrh nutritional; endocrine; and metabolic disorders (17 sources)Abnormal weight gain; Translations: [Abnormal weight gain]08-13-2023 EpisodicOther nutritional; endocrine; and metabolic disorders (6 sources)Abnormal weight gain; Translations: [Abnormal weight gain]08-13-2023 EpisodicOther nutritional; endocrine; and metabolic disorders (9 sources)Decrease in appetite; Translations: [Anorexia]02-80-2230XftsfnhjVlcvk nutritional; endocrine; and metabolic disorders (5 sources)Anorexia; Translations: [Anorexia]24-47-1971GkdlydhsMzutr skin disorders (4 sources)Pilonidal disease; Translations: [Other specified disorders of the skin and subcutaneous tissue]58-25-8139EjdbccsoWkooc skin disorders (1 source)Other specified disorders of the skin and subcutaneous tissue; Translations: [Other specified disorders of the skin and subcutaneous tissue] Onset: 54-40-1445KgoeuecyAzbln upper respiratory infections (19 sources)Maxillary sinusitis; Translations: [Chronic maxillary sinusitis] 75-86-1491CyqryeiZgfkp upper respiratory infections (2 sources)Acute upper respiratory infection, unspecified; Translations: [Acute upper respiratory infection]Onset: 22-11-3319DmrermdoYptiss media and related conditions (1 source)Otitis media; Translations: [Otitis media, unspecified, right ear] Onset: 85-87-5205JlkitpifIahnqnsd codes; unclassified (18 sources)Family history of Luis thyroiditis; Translations: [Family history of other endocrine, nutritional and metabolic diseases]07-07-2023 EpisodicResidual codes; unclassified (18 sources)Disturbance in sleep behavior; Translations: [Sleep disorder, unspecified]01-54-0561IhrhhkecWcobvtfq codes; unclassified (4 sources)Family history of other endocrine, nutritional and metabolic diseases; Translations: [Family history of other endocrine and metabolic diseases]06-43-7051XmtfblfoAeeoymou codes; unclassified (10 sources)Sleep disorder, unspecified; Translations: [Sleep disturbance, unspecified]53-60-2368PiolrhqmWiharhut codes; unclassified (5 sources)Frequent night waking; Translations: [Insomnia, unspecified] 48-63-3675ImanxfnfHhkykugq codes; unclassified (1 source)Insomnia, unspecified; Translations: [Other sleep disturbances] 99-94-4795OyhywusiIfavqvvbovoi (1 source)Pain in right knee; Translations: [Pain in right knee]Onset: 98-76-2522Uzftviumnuze (2 sources)Autogenerated ProblemOnset: 483783-38-3501Mkolwdtpzugg (1 source)Acute cough; Translations: [Acute cough]Onset: 58-36-8424Gwongodyzqkl (1 source)Tail Bone PainOnset: 90-36-1696Fffrfatiwxlh (1 source)New PatientOnset: 17-27-7534Uipdkxvxguqn (1 source)Testicle PainOnset: 48-85-2952Fuldehghuxqk (1 source)SuicidalOnset: 44-39-3213Dysfentgnqbs (1 source)my mental healthOnset: 26-77-3304Fmtbvrrawjjp (1 source)Post-opOnset: 78-41-3475Qmowlilrirpe (1 source)CystOnset: 04-26-2024 Past or Other Problems Problem ClassificationProblemDateDocumented DateEpisodic/ChronicAppendicitis and other appendiceal conditions (14 sources)Acute appendicitis; Translations: [Unspecified acute appendicitis] Onset: 366384-58-0810VhjothsnFgcoyxx dysrhythmias (20 sources)Tachycardia; Translations: [Tachycardia, unspecified]Onset: 825766-98-9517LtndurtpOwurjzxcaxbkznfk hemorrhage (20 sources)Hematochezia; Translations: [Melena]Onset: 815038-75-0067 EpisodicMiscellaneous mental health disorders (13 sources)At risk for deliberate self harm ; Translations: [Other symptoms and signs involving emotional state]Onset: 393369-21-8724UvjxbcokWxomlgukbqs chest pain (1 source)Chest pain, unspecified; Translations: [Chest pain, unspecified]Onset: 83-42-2417PhkumomaHsoft connective tissue disease (1 source)Pain of bilateral hands; Translations: [Pain in right hand]07-21-2023 EpisodicOther lower respiratory disease (2 sources)Cough; Translations: [Cough, unspecified]Onset: 74-98-8303Pgvmhsrm Other screening for suspected conditions (not mental disorders or infectious disease) (9 sources)Elevated liver enzymes level; Translations: [Other specified abnormal findings of blood chemistry]Onset: 48-59-7988BgzqkgplCidpyruch and history of mental health and substance abuse codes (1 source)Personal history of other mental and behavioral disorders; Translations: [Personal history of othermental and behavioral disorders]Onset: 68-79-8025ExucumlaGdqj and subcutaneous tissue infections (20 sources)Pilonidal abscess of teri cleft; Translations: [Pilonidal cyst with abscess]Onset: 657638-96-1091PktpckyyFmajfqqvzda; intervertebral disc disorders; other back problems (7 sources)Disorder of right sciatic nerve; Translations: [Sciatica, right side] Onset: 645853-90-1446AygyiiddQgdjltk and intentional self-inflicted injury (1 source)Suicidal ideations; Translations: [Suicidal ideations]Onset: 69-65-0619Lwjmavjf Results Test NameValueInterpretationReference RangeFacilityPOCT NURSING URINE MACROSCOPIC UAon 27-67-8945EFEWDYSRC NURNegativeNormalNegativeProAshtabula County Medical CenterComment on above:Performed By: #### 33698-6, 5643-2, CBCA, 3298-7, 4024- 6, CMP, THYR #### [facility] ([id number]) [address] [place], [place] [address]NVLVT/HGB NURNegativeNoatrium health pinevilleNegativeOhioHealth Shelby Hospital Comment on above:Performed By: #### 64459-5, 5643-2, CBCA, 3298-7, 4024-6, CMP, THYR #### [facility] ([id number]) [address], [address] [place], [place] [address]DGUEWJE NURNegativeRosemeadNegSelect Medical Specialty [facility] Comment on above:Performed By: #### 61904-3, 5643-2, CBCA, 3298-7, 4024-6, CMP, THYR #### [facility] ([id number]) [address], [address] [place], [place] [address]UGVKNKV NURNegativeNormalNegativeProMckitrick Hospitalca [facility] Comment on above:Performed By: #### 89129-4, 5643-2, CBCA, 3298-7, 4024-6, CMP, THYR #### [facility] ([id number]) [address], [address] [place], [place] [address]ZYWPBZYER ESTERASE NURNegativeNormalNegativeProSalem City Hospital HospitalComment on above:Performed By: #### 03736-4, 5643-2, CBCA, 3298-7, 4024- 6, CMP, THYR #### [facility] ([id number]) [address], [address] [place], [place] [address]HGHJXXI NURNegativeNormalNegativeOhioHealth Shelby Hospital Comment on above:Performed By: #### 57723-5, 5643-2, CBCA, 3298-7, 4024-6, CMP, THYR #### [facility] ([id number]) [address], [address] [place], [place] [address]FM NUR5.4Qydjnn3.0, 6.0, 6.5, 7.0, 7.5, 8.0, 8.5, 5.5ProMedica Wvumedicine Harrison Community HospitalComment on above:Performed By: #### 22501-3, 5643-2, CBCA, 3298- 7, 4024-6, CMP, THYR #### [facility] ([id number]) [address], [address] [place], [place] [address]NOFJEHT NURNegativeNormalNegativeOhioHealth Shelby Hospital Comment on above:Performed By: #### 39187-8, 5643-2, CBCA, 3298-7, 4024-6, CMP, THYR #### [facility] ([id number]) [address], [address] [place], [place] [address]CMHXTBTF GRAVITY SUE>=1.250Zabqwxpu9.010, 1.015, 1.020, 1.025 [facility]ica Stevens HospitalComment on above:Performed By: #### 58310-2, 5643-2, CBCA, 3298-7, 4024-6, CMP, THYR #### [facility] ([id number]) [address], [address] [place], [place] [address]AHTCCJCLXWJO NUR0.2 E.U./dLNormalProAshtabula County Medical Center Comment on above:Performed By: #### 81943-0, 5643-2, CBCA, 3298-7, 4024-6, CMP, THYR #### [facility] ([id number]) [address], [address] [place], [place] [address]EG SCROTUM WITH DUPLEXon 31-36-9946QZ SCROTUM WITH DUPLEXUS SCROTUM WITH DUPLEX CLINICAL INFORMATION: right testicle pain. TECHNIQUE: Real-time sonographic evaluation of the scrotum and testes was performed with waldrop scale and color flow imaging. Real time waldrop scale, color flow imaging and duplex spectral Doppler waveform analysis evaluation was performed of the major arterial inflow and venous outflow structures of the testicles with arterial and venous spectral waveforms obtained and reviewed in view of the clinical history of right testicle pain . Duplex spectral Doppler document arterial and venous spectral waveforms documented within the majorarterial inflow and venous outflow of both testicles. Arterial and venous Doppler duplex spectral waveforms were evaluated. COMPARISON: No relevant prior studies available. FINDINGS: The right testicle measures 4.8 x 2.6 x 2.4 cm and left testicle measures 4.7 x 2.5 x 2.4 cm. Homogeneous testicles with normal, symmetric vascularity. Complex right epididymal cyst measuring 1.0 cm.Small right hydrocele. The arterial and venous waveforms are within normal limits. IMPRESSION: * No evidence of testicular torsion or mass. * Complex right epididymal cyst measuring 1.0 cm. * Small complex right hydrocele. Finalized by Maciel Skaggs MD on 12/30/2024 12:32 AMNormalProMediRegency Hospital Cleveland EastBASIC METABOLIC PANELon 37-28-6379Ltnsm gap [Moles/Vol]12 mmol/LNormal 5-15ProNexus Children'S Hospital HoustonComment on above:Performed By: #### BMP #### [facility] ([facility]) [address] [place] [address] VIRCalcium [Mass/Vol]10.2 mg/dLNormal8.5-10.5PAvita Health SystemComment on above:Performed By: #### BMP #### [facility] ([facility]) [address] [place] [address] VIRChloride [Moles/Vol]103 mmol/HDpvodw05-009FiyBkmdldNexus Children'S Hospital HoustonComment on above:Performed By: #### BMP #### [facility] ([facility]) [address] [place] [address] VIRCO2 [Moles/Vol]28 mmol/NZbkeyc35-65RmcUhyotp [facility]remont HospitalComment on above:Performed By: #### BMP #### [facility] ([facility]) [address] [place] [address] VIRCreatinine [Mass/Vol]0.96 mg/dLNormal0.60-1.30ProNexus Children'S Hospital HoustonComment on above:Result Comment: METHOD TRACEABLE TO IDMS STANDARDPerformed By: #### BMP #### [facility] ([facility]) [address] [place] [address] VIREGFR (CKD-EPI) NON-RACE DEPENDENT>^90Normal>=60ProNexus Children'S Hospital HoustonComment on above:Result Comment: Reported eGFR is based on the CKD-EPI 2020 equation that does not use a race coefficient.Performed By: #### BMP #### [facility] ([facility]) [address] [place] [address] VIRGlucose [Mass/Vol]90 mg/iSHeogni04-61QiyRzxbibNexus Children'S Hospital HoustonComment on above:Performed By: #### BMP #### [facility] ([facility]) [address] [place] [address] VIRPotassium [Moles/Vol]3.9 mmol/LNormal3.5-5.0ProNexus Children'S Hospital HoustonComment on above:Performed By: #### BMP #### [facility] ([facility]) [address] [place] [address] VIRSodium [Moles/Vol]143 mmol/LCgkfri591-473FydBzdsgn [facility]ont HospitalComment on above:Performed By: #### BMP #### [facility]) [address] [place] [address] VIRUrea nitrogen [Mass/Vol]14 mg/dLNormal5-23ProNexus Children'S Hospital HoustonComment on above:Performed By: #### BMP #### [facility]) [address] [place] [address] VIRHGB A1C (GLYCO-HGB)on 19-63-1093Dyvbzor [Mass/Vol]111 mg/dL NormalProAshtabula County Medical CenterComment on above:Performed By: #### 02010-1, 5643-2, CBCA, 3298-7, 4024-6, CMP, THYR #### [facility] ([id number]) [address] [address] [place], [place] [address]SiY4m (Bld) [Mass fraction]5.5 %Normal4.4-5.6OhioHealth Shelby HospitalComment on above:Result Comment: NOTE ADA Guidelines Result HgbA1c Normal : less than 5.7 % Prediabetes : 5.7 % to 6.4 % Diabetes : > 6.4 % Use with caution in patients with abnormal hemoglobin variants as the half-life of red blood cells and in vivo glycation rates are affected.Performed By: #### 43045-1, 5643-2, CBCA, 3298-7, 4024-6, CMP, THYR #### [facility] ([id number]) [address], [address] [place], [place] [address]Mjnkn 1996 panelon 94-87-8237Ibzbsjozvlx [Mass/Vol]172 mg/dL Bkmlpu881-043OiuZnfnqq [place] HospitalComment on above:Performed By: #Jeffery OWENS 89540-5 #### [facility] ([id number]) [address], [address] [place], [place] [address]Ubwipqnqsdo in HDL [Mass/Vol]33 mg/dLLow>39ProMediUniversity Hospitals Samaritan Medical Center HospitalComment on above:Result Comment: HDL <40 mg/dL - High Risk HDL > or = 40mg/dL- Desirable HDL >60 mg/dL - Negative Risk Performed By: ##Joselito OWENS 35366-1 #### [facility] ([id number]) [address] [place], [place] [address]Qgeclcbyphk in LDL [Mass/Vol]117 mg/dLNormal<130ProSalem City Hospital HospitalComment on above:Result Comment: LDL <100 mg/dL - Desirable LDL >160 mg/dL - High Risk Performed By: ##Joselito OWENS 45922-5 #### [facility] ([id number]) [address], [address] [place], [place] [address]Hbufixpflju in VLDL [Mass/Vol]22 mg/dLNormal0-30ProSalem City Hospital HospitalComment on above:Performed By: #Jeffery OWENS 43179-1 #### [facility] ([id number]) [address], [address] [place], [place] [address]IJRFYYQGWDT:HDL5.2High1.0-5.0ProSalem City Hospital HospitalComment on above:Performed By: ##Joselito OWENS 97410-0 #### [facility] ([id number]) [address], [address] [place], [place] [address]Lxcupfdmmbcw [Mass/Vol]109 mg/vCNyjtzd38-681CcfXwkswa [place] HospitalComment on above:Performed By: #### HA1C, 26502-7 #### [facility] ([id number]) [address], [address] [place], [place] [address]KNKKEJAXNPQIGpi 29-88-7334Paadhmgvmtjao [Mass/Vol]ug/mLLow 10.0-30.0ProAshtabula County Medical CenterComment on above:Result Comment: Reference ranges are for therapeutic limits.Performed By: #### 72109-8, 5643-2, CBCA, 3298-7, 4024-6, CMP, THYR #### [facility] ([id number]) [address] [place], [place] [address]AKF AND AUTO DIFFon 64-12-7056YTOPTGRV BASOPHIL0.1 X10E9/LNormal 0.0-0.2ProMedOhio State Health SystemComment on above:Performed By: #### 61805-0, 5643-2, CBCA, 3298-7, 4024-6, CMP, THYR #### [facility] ([id number]) [address] [place], [place] [address]WMWFFABE NEUTROPHIL6.5 X10E9/LNormal1.5-6.6ProAshtabula County Medical CenterComment on above:Performed By: #### 96909-7, 5643-2, CBCA, 3298-7, 4024- 6, CMP, THYR #### [facility] ([id number]) [address], [address] [place], [place] [address]Iwadkejlm/100 WBC (Bld)0.6 %NormalProSalem City Hospital Hospital Comment on above:Performed By: #### 81029-0, 5643-2, CBCA, 3298-7, 4024-6, CMP, THYR #### [facility] ([id number]) [address], [facility] [address] [place], [place] [address]Navdkdtguxx (Bld) [#/Vol]0.1 10*3/uLNormal0.0-0.4ProSalem City Hospital HospitalComment on above:Performed By: #### 43935-8, 5643-2, CBCA, 3298- 7, 4024-6, CMP, THYR #### [facility] ([id number]) [address], [address] [place], [place] [address]Gvfafjvtrci/100 WBC (Bld)0.7 %NormalProSalem City Hospital Hospital Comment on above:Performed By: #### 11897-5, 5643-2, CBCA, 3298-7, 4024-6, CMP, THYR #### [facility] ([id number]) [address] [address] [place], [place] [address]Gpodnikpyjv distribution width (RBC) [Ratio]13.6 %Normal 11.5-15.0ProSalem City Hospital HospitalComment on above:Performed By: #### 44571-0, 5643-2, CBCA, 3298-7, 4024-6, CMP, THYR #### [facility] ([id number]) [address], [facility] [address] [place], [place] [address]Upbwxprati (Bld) [Volume fraction]43.5 %Eezanh02-29MuqIpyuth [place] HospitalComment on above:Performed By: #### 69531-3, 5643-2, CBCA, 3298- 7, 4024-6, CMP, THYR #### [facility] ([id number]) [address] [address] [place], [place] [address]Onqpqrpzwn (Bld) [Mass/Vol]15.5 g/dDJdrbym66.0-17.0ProSalem City Hospital HospitalComment on above:Performed By: #### 70326-0, 5643-2, CBCA, 3298- 7, 4024-6, CMP, THYR #### [facility] ([id number]) [address], [address] [place], [place] [address]Mgxsfxbkgrw (Bld) [#/Vol]2.0 10*3/uLNormal1.0-3.5ProMedica Cost HospitalComment on above:Performed By: #### 42117-5, 5643-2, CBCA, 3298- 7, 4024-6, CMP, THYR #### [facility] ([id number]) [address], [address] [place], [place] [address]Nhrsuguyuih/100 WBC (Bld)21.0 %NormalProSalem City Hospital Hospital Comment on above:Performed By: #### 42627-8, 5643-2, CBCA, 3298-7, 4024-6, CMP, THYR #### [facility] ([id number]) [address] [place], [place] [address]TOK (RBC) [Entitic mass]30.4 sbPuaial11-82DscIynoyj [place] HospitalComment on above:Performed By: #### 86446-8, 5643-2, CBCA, 3298-7, 4024- 6, CMP, THYR #### [facility] ([id number]) [address], [address] [place], [place] [address]XXOB (RBC) [Mass/Vol]35.7 g/pNEwmrvu48-65CmbTrtwis [place] HospitalComment on above:Performed By: #### 19515-4, 5643-2, CBCA, 3298-7, 4024- 6, CMP, THYR #### [facility] ([id number]) [address], [address] [place], [place] [address]TAE (RBC) [Entitic vol]85 lHSqvnta22-886LjgOzctvw [place] HospitalComment on above:Performed By: #### 70040-1, 5643-2, CBCA, 3298-7, 4024- 6, CMP, THYR #### [facility] ([id number]) [address], [address] [place], [place] [address]Lscqwdbaj (Bld) [#/Vol]0.8 10*3/uLNormal0-0.9ProMedica Cost HospitalComment on above:Performed By: #### 06818-2, 5643-2, CBCA, 3298-7, 4024- 6, CMP, THYR #### [facility] ([id number]) [address], [address] [place], [place] [address]Xphluifup/100 WBC (Bld)8.5 %NormalOhioHealth Shelby Hospital Comment on above:Performed By: #### 18862-3, 5643-2, CBCA, 3298-7, 4024-6, CMP, THYR #### [facility] ([id number]) [address], [address] [place], [place] [address]Qaqdyomvlzr/100 WBC (Bld)69.2 %NormalOhioHealth Shelby Hospital Comment on above:Performed By: #### 92227-0, 5643-2, CBCA, 3298-7, 4024-6, CMP, THYR #### [facility] ([id number]) [address], [address] [place], [place] [address]Zkgchvpo mean volume (Bld) [Entitic vol]8.7 fLNormal7-12 [facility] Cost HospitalComment on above:Performed By: #### 96981-5, 5643-2, CBCA, 3298-7, 4024-6, CMP, THYR #### [facility] ([id number]) [address], [address] [place], [place] [address]Knrbijjio (Bld) [#/Vol]248 10*3/uGDnyirn024-119XfeTfcpdu Cost HospitalComment on above:Performed By: #### 55221-5, 5643-2, CBCA, 3298-7, 4024- 6, CMP, THYR #### [facility] ([id number]) [address], [address] [place], [place] [address]KHR COUNT5.09 X10E12/LNormal4.10-5.70ProSal[facility] Hospital Comment on above:Performed By: #### 45488-0, 5643-2, CBCA, 3298-7, 4024-6, CMP, THYR #### [facility] ([id number]) [address], [address] [place] [address]VUR (Bld) [#/Vol]9.4 10*3/uLNormal4.0-11.0ProSalem City Hospital HospitalComment on above:Performed By: #### 76446-2, 5643-2, CBCA, 3298-7, 4024- 6, CMP, THYR #### [facility] ([id number]) [address], [address] [place] [address]AQAUQJGQYZDLO METABOLIC PANELon 21-54-8579Csdtvdz [Mass/Vol]4.3 g/dLNormal3.2-5.3ProMedPeoples Hospital HospitalComment on above:Performed By: #### 61426-1, 5643-2, CBCA, 3298-7, 4024-6, CMP, THYR #### [facility] ([id number]) [address] [place], [place] [address]RRJ [Catalytic activity/Vol]81 U/PJnduaw79-364OvjPhxlyp [place] HospitalComment on above:Performed By: #### 70340-6, 5643-2, CBCA, 3298-7, 4024- 6, CMP, THYR #### [facility] ([id number]) [address], [address] [place], [place] [address]ZGR [Catalytic activity/Vol]60 U/LHigh0-40Pro[facility]ica [facility] HospitalComment on above:Performed By: #### 53632-3, 5643-2, CBCA, 3298-7, 4024- 6, CMP, THYR #### [facility] ([id number]) [address], [address] [place] [address]Nwqvw gap [Moles/Vol]11 mmol/LNormal5-15Pro[facility]ica Stevens HospitalComment on above:Performed By: #### 76762-5, 5643-2, CBCA, 3298-7, 4024- 6, CMP, THYR #### [facility] ([id number]) [address], [address] [place] [address]MPX [Catalytic activity/Vol]38 U/LNormal0-41Pro[facility]ica [facility] HospitalComment on above:Performed By: #### 68419-8, 5643-2, CBCA, 3298-7, 4024- 6, CMP, THYR #### [facility] ([id number]) [address] [place], [place] [address]Tlamhoywg [Mass/Vol]1.3 mg/dLHigh0.3-1.2ProMedica Stevens HospitalComment on above:Performed By: #### 19495-9, 5643-2, CBCA, 3298-7, 4024- 6, CMP, THYR #### [facility] ([id number]) [address], [address] [place], [place] [address]Fsavayr [Mass/Vol]9.6 mg/dLNormal8.5-10.5ProMedica Stevens HospitalComment on above:Performed By: #### 27391-6, 5643-2, CBCA, 3298-7, 4024- 6, CMP, THYR #### [facility] ([id number]) [address], [address] [place], [place] [address]Qxxxlphm [Moles/Vol]104 mmol/MZdqcpd16-432JfrWdiihm Stevens HospitalComment on above:Performed By: #### 05452-2, 5643-2, CBCA, 3298-7, 4024- 6, CMP, THYR #### [facility] ([id number]) [address], [address] [place], [place] [address]HC0 [Moles/Vol]23 mmol/DYbnbkt39-29BcjDifgsnTwin City Hospital Comment on above:Performed By: #### 40271-7, 5643-2, CBCA, 3298-7, 4024-6, CMP, THYR #### [facility] ([id number]) [address], [address] [place], [place] [address]Thtgrcfric [Mass/Vol]0.89 mg/dLNormal0.60-1.30Ohio[facility] HospitalComment on above:Result Comment: METHOD TRACEABLE TO IDMS STANDARD Performed By: #### 28051-4, 5643-2, CBCA, 3298-7, 4024-6, CMP, THYR #### [facility] ([id number]) [address], [address] [place], [place] [address]mBCN (CKD-EPI) NON-RACE DEPENDENT>90Normal>59ProAshtabula County Medical CenterComment on above:Result Comment: Reported eGFR is based on the CKD-EPI 2021 equation that does not use a race coefficient.Performed By: #### 63562-5, 5643-2, CBCA, 3298-7, 4024-6, CMP, THYR #### [facility] ([id number]) [address], [address] [place], [place] [address]Qohltci [Mass/Vol]93 mg/nRUtswup40-81OqhGcrjcoOhioHealth Shelby Hospital Comment on above:Performed By: #### 79328-2, 5643-2, CBCA, 3298-7, 4024-6, CMP, THYR #### [facility] ([id number]) [address], [address] [place], [place] [address]Cxbhorwmi [Moles/Vol]4.2 mmol/LNormal3.5-5.0ProMedica Stevens HospitalComment on above:Performed By: #### 93900-2, 5643-2, CBCA, 3298-7, 4024- 6, CMP, THYR #### [facility] ([id number]) [address], [address] [place], [place] [address]Ewkfsir [Mass/Vol]7.8 g/dLNormal6.0-8.0[facility] Comment on above:Performed By: #### 20924-4, 5643-2, CBCA, 3298-7, 4024-6, CMP, THYR #### [facility] ([id number]) [address] [place], [place] [address]Bahzlj [Moles/Vol]138 mmol/FBqcdxr804-621EnyBlmigv Stevens HospitalComment on above:Performed By: #### 77035-6, 5643-2, CBCA, 3298-7, 4024- 6, CMP, THYR #### [facility] ([id number]) [address], [address] [place], [place] [address]Xxmy nitrogen [Mass/Vol]16 mg/dLNormal5-23ProMckitrick Hospitalca [facility] HospitalComment on above:Performed By: #### 63730-3, 5643-2, CBCA, 3298-7, 4024- 6, CMP, THYR #### [facility] ([id number]) [address], [address] [place], [place] [address]KTQI SCREEN, URINEon 02-19-4791GEWJSTRKGHU/METHAMPNegativeNormal NEGProMedica Stevens HospitalComment on above:Result Comment: AMPH/METH screening cut off = 1000 ng/mLPerformed By: #### DSU #### [facility] ([id number]) [address], [address] [place], [place] [address]YUKEIEOLUKVZQldvpadxYzzjxmLLMPnkQfrmbq [facility] HospitalComment on above:Result Comment: Barbiturates screening cut off value = 200 ng/mLPerformed By: #### DSU #### [facility] ([id number]) [address], [address] [place], [place] [address]NHEPZOHOOLZQBOFUgacoabaEpuxwjAFWLstClkxtl Stevens HospitalComment on above:Result Comment: Benzodiazepines screening cut off value = 200 ng/mL Performed By: #### DSU #### [facility] ([id number]) [address], [address] [place], [place] [address]IBFCAAMRTRHLIhbwawumNyjwyeFUBHxcYcmuax Stevens HospitalComment on above:Result Comment: Cannabinoids/THC screening cut off value = 50 ng/mL Performed By: #### DSU #### [facility] ([id number]) [address] [place], [place] [address]LGCTVOB METABOLITENegativeNormalNEGProMckitrick Hospitalca [facility] Comment on above:Result Comment: Cocaine screening cut off value = 300 ng/mL Performed By: #### DSU #### [facility] ([id number]) [address], [address] [place], [place] [address]UQQBLXSMbbsczqsWvgazkDKRNvxOghhvy Stevens HospitalComment on above:Result Comment: Ecstasy screening cut off value = 500 ng/mL This report is intended for use in clinical monitoring or management of patients.Performed By: #### DSU #### [facility] ([id number]) [address], [address] [place], [place] [address]YZMDMYPVAXvqhwirqBetjdbBQPPnpWkycur Stevens HospitalComment on above:Result Comment: Methadone screening cut off value = 300 ng/mL.Performed By: #### DSU #### [facility] ([id number]) [address], [address] [place], [place] [address]VRUKHAWBscecmbjUyygwwTABQjlPlzgws Stevens HospitalComment on above:Result Comment: Opiates screening cut off value = 300 ng/mL NOTE: This test is used for the detection of codeine, hydrocodone (>1000 ng/mL), morphine and hydromorphone (>900 ng/mL) in urine.Performed By: #### DSU #### [facility] ([id number]) [address] [place] [address] [address] [place], [place] [address]HTUBBAZWHOyueswikMavimaXLWLmxJoghme [facility] HospitalComkalamazoo psychiatric hospital on above:Result Comment: Oxycodone screening cut off value = 300 ng/mL NOTE: This test is used for the detection of oxycodone and oxymorphone in urine.Performed By: #### DSU #### [facility] ([id number]) [address] [place] [address]ACUIPYQMBQCQYXcrdsptvAnhdreLGRVksCjcydr [facility] on above:Result Comment: Phencyclidine screening cut off value = 25 ng/mL Performed By: #### DSU #### [facility] ([id number]) [address] [place] [address] [place] [address]267UCNBHPGgf 50-99-8241Tmdzmac [Mass/Vol]mg/dLNormal0.00-0.08 [facility] on above:Result Comment: This report is intended for use in clinical monitoring or management of patients.Performed By: #### 66168-2, 5643-2, CBCA, 3298-7, 4024-6, CMP, THYR #### [facility] ([id number]) [address] [place] [address] [address] [place], [place] [address]Dnjrrravmml [Mass/Vol]on 19-04-6499CMGTOUWIKZ<2.1Ehtjgy3.0-25.0 [facility] on above:Result Comment: Reference ranges are for therapeutic limits.Performed By: #### 10687-0, 5643-2, CBCA, 3298-7, 4024-6, CMP, THYR #### [facility] ([id number]) [address] [place] [address], [address] [place], [place] [address]LTFMECP PROFILEon 56-10-1343Qqka T4 [Mass/Vol]0.86 ng/dLNormal 0.61-1.60[facility] HospitalComment on above:Performed By: #### 71627-7, 5643-2, CBCA, 3298-7, 4024-6, CMP, THYR #### [facility] ([id number]) [address] [facility], [address] [place], [place] [address]KNZ2.67 uIU/mLNormal0.49-4.67[facility] HospitalComment on above:Performed By: #### 37192-8, 5643-2, CBCA, 3298-7, 4024-6, CMP, THYR #### [facility] ([id number]) [address] [facility], [address] [place], [place] [address]Vyhccwntb antidepressants [Mass/Vol]on 11-31-7218DCIUGKMBXH NegativeNormalNEGProMedica Stevens HospitalComment on above:Performed By: #### 75861-3, 5643-2, CBCA, 3298-7, 4024-6, CMP, THYR #### [facility] ([id number]) [address] [facility], [address] [place], [place] [address]NKY MACROSCOPIC NURon 85-74-0578GZJHKSWGJ NURNegativeNormalNEG [facility] HospitalComment on above:Performed By: #### NUM #### [facility] ([id number]) [address] [place], [place] [address]YPGVP/HGB NURNegativeNormalNEGProMedica Stevens HospitalComment on above:Performed By: #### NUM #### [facility] ([id number]) [address] [place], [place] [address]LDNGJGU NURNegativeNormalNEGProMedica Stevens HospitalComment on above:Performed By: #### NUM #### [facility] ([id number]) [address] [place], [place] [address]ZWNDMDS NURNegativeNormalNEGProMedica Cost HospitalComment on above:Performed By: #### NUM #### [facility] ([id number]) [address] [place], [place] [address]PQEVKLLSE ESTERASE NURNegativeNormalNEGOhioHealth Shelby Hospital Comment on above:Performed By: #### NUM #### [facility] ([id number]) [address] [place], [place] [address]DYBNPWD NURNegativeNormalNEGProMckitrick Hospitalca Cost HospitalComment on above:Performed By: #### NUM #### [facility] ([id number]) [address] [place], [place] [address]EO NUR5.4Cjbksz7.0-8.5PTwin City HospitalComment on above: Performed By: #### NUM #### [facility] ([id number]) [address] [place], [place] [address]ACXPEKI NURNegativeNormalNEGProAshtabula County Medical CenterComment on above:Performed By: #### NUM #### [facility] ([id number]) [address] [place], [place] [address]QZIFMQII GRAVITY SUE>=1.258Qyizwh1.003-1.035ProSalem City Hospital HospitalComment on above:Performed By: #### NUM #### [facility] ([id number]) [address] [place], [place] [address]WJDWNBRDUSYY NUR0.2 eu/dLNormal<1.1PTwin City Hospital Comment on above:Performed By: #### NUM #### [facility] ([id number]) [address] [place], [place] [address]VF Note-Physicianon [id number] Note-PhysicianED Note-Physician Basic Information Time Seen: Johnny ROSADO, Santiago Almeida 07/05/2024 21:54 Chief Complaint Pt arrives to ED from home with c/o a sharp pain to his upper right chest whenever he coughs, states he sometimes gets winded. States cough is productive. Pa fevers/chills. 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 History of Present Illness Patient is a 18-year-old male that presents today for evaluation of his cough, congestion as well as chest pain when he coughs. Patient states that he has had a cough and congestion since Thursday. He started to develop intermittent chest pain on the right upper chest wall that started with him coughing. He does note that the cough is productive. Denies any fevers, body aches, chills. Has not taken any meds for this prior to arrival. Denies any shortness of breath or dyspnea. Denies any nausea,vomiting, abdominal pain. Review of Systems No other aggravating or relieving factors no other associated symptoms no other prior treatments orcomplaints. Family: Reviewed and noncontributory Social: lives at home Review of systems negative unless otherwise specified in the HPI. Physical Exam Vitals & Measurements T: 36.5 ???C(Oral) HR: 96(Peripheral) RR: 18 BP: 123/76 SpO2: 95% HT: 183 cm WT: 195.2 kg BMI: 58.29 Nurse's notes and vital signs reviewed. General: Alert, no acute distress, patient resting comfortably Patient is not toxic or lethargic. Skin: Warm, intact, no pallor noted. There is no evidence of rash at this time. Head: Normocephalic, atraumatic Eye: Normal conjunctiva Ears, Nose, Throat: Moist mucous membranes. No posterior pharyngeal erythema no exudate swelling shift or mass. No trisumus no stridor. There is injection and erythema with posterior effusion and pusnoted to the right TM. No evidence of perforation. Canal is unremarkable. Left tympanic membrane unremarkable with no injection erythema no posterior effusions perforation or pus. Neck: No meningeal signs. Cardio: Regular Rate and Rhythm with normal peripheral perfusion Respiratory: No acute distress, no stridor, no retractions. CTA bilaterally. Abdomen: Soft, nontender, no masses detected. No rebound, guarding, or rigidity Neurological: Appropriate for age Psychiatric: Cooperative Procedure [ ] The patient was diagnosed with upper respiratory infection and was not prescribed an antibiotic. [SATISFIES MIPS PERFORMANCE] [ ] The patient has competing comorbid condition within the last 12 months. The comorbid condition was [] (e.g., neutropenia, cystic fibrosis, chronic bronchitis, pulmonary edema, respiratory failure, rheumatoid lung disease). [MIPS PERFORMANCE EXCEPTION/EXCLUSION [ ] The patient is already on antibiotics, or has taken them within the last 30 days. [MIPS PERFORMANCE EXCEPTION/EXCLUSION] [x] The patient had a competing diagnosis of [acute otitis media] (e.g. acute otitis media, chronicsinusitis, UTI, etc.) [MIPS PERFORMANCE EXCEPTION/EXCLUSION] [ ] The patient was diagnosed with upper respiratory infection and was prescribed or dispensed an antibiotic. [DOES NOT SATISFY MIPS PERFORMANCE] Medical Decision Making Patient is a 18-year-old male that presents today for evaluation of his cough, congestion, chest pain. Cough and congestion started on Thursday and he started to develop some chest pain when he has been coughing. Does note that the cough is productive. Denies any other systemic signs or symptoms. On exam the patient is afebrile nontoxic-appearing. SpO2 95% on room air. No posterior pharyngeal erythema or edema. There is injection erythema with posterior fusion and pus noted to the right TM. Left TM unremarkable. CTA to bilateral lung yu. RRR. Abdomen soft nontender. Patient was negative for influenza and COVID. 2 view chest x-ray interpreted by myself is negative for any acute cardiopulmonary process. I did offer to obtain an EKG as well as blood work given the patient's chest pain but he wants to hold off for now. He likely has an upper respiratory infection that has now led to an otitis media on the right. He does note that he used to be prone to ear infections as a kid but has not had one in a long time. He will be started on cefdinir given his penicillin allergy and will be provided with naproxen for his pain. He will be discharged home with close follow-up with his PCP. We discussed if he has new or worsening symptoms that he should promptly return to the ED for evaluation. Return to ED precautions were reviewed with the patient at length. Assessment/Plan Cough (R05.9: Cough, unspecified) Otitis media, right (H66.91: Otitis media, unspecified, right ear) Upper respiratory infection (J06.9: Acute upper respiratory infection, unspecified) Orders: cefdinir, 300 mg = 1 cap(s), Oral, q12hr, X 7 day(s), # 14 cap(s), Refills(s) 0, Pharmacy: [id number], 183, cm, 07/05/24 21:52:00 EST, Height/Length Dosing, 195.2, kg, 07/05/24 21:52:00 EST, Weight Dosing naproxen, 500 mg = 1 tab(s), Oral, BI (more content not included)...[facility] HospitalComment on above:Result Comment: Electronically Signed By: Santiago Turner PA-C\.br\Date and Time Signed: 07/06/2499:50 EST\.br\Electronically Co-Signed By: Nato Lezama DO\.br\Date and Time Co- Signed: 07/06/24 06:36 ESTXR Chest 2 Viewson [id number] Chest 2 ViewsExam Date/Time: 07/05/2024 22:12 EST Reason for Exam: Cough Report IMPRESSION: NO RADIOGRAPHIC EVIDENCE OF ACUTE INTRATHORACIC PROCESS. EXAMINATION: XR Chest 2 Views HISTORY: Cough TECHNIQUE: Frontal and lateral views of the chest. COMPARISON: None available FINDINGS: Cardiomediastinal silhouette is within normal limits. No pneumothorax, pleural effusion, or consolidation. No acute osseous abnormality. Ordering Provider: Nato Lezama FINAL REPORT Dictated: 07/06/2024 8:27 am Lewis Pineda DO Signed (Electronic Signature): 07/06/2024 8:27 am Signed by: Lewis Pineda DO Transcribed by: ADELE Technologist: ORACIOSelect [facility] [place] Clinical Summaryon [id number] Clinical SummaryED Clinical Summary [address] [address] ED Clinical Summary Person Information Name: JET DUNCAN[place] Age: 18 Years : 2005 Sex: Male Language: Dutch PCP: Abbi JAY CNP Marital Status: Single Phone: Visit Id: Visit Reason: Chest pain - Pleuritic; Cough; Respiratory problem; chest pain and sob Speciality: Acuity: 3 Enc Type: Emergency Med Service: Emergency Arrival: 07/05/2024 21:45:44 Discharge: 07/05/2024 23:18:25 LOS: 000 01:33 Checkin: 07/05/2024 21:45:44 Checkout: 07/05/2024 23:18:25 Dispo Type: Home (Routine DC) EVENTS: Event Name Event Status Request Date/Time Start Date/Time Complete Date/Time Arrive Complete 07/05/2024 21:45:44 07/05/2024 21:45:44 07/05/2024 21:45:44 Document Home Meds Request 07/05/2024 21:45:44 Triage Complete 07/05/2024 21:45:44 07/05/2024 21:52:24 07/05/2024 21:52:24 Registration Complete 07/05/2024 21:49:52 07/05/2024 21:49:52 07/05/2024 21:49:52 Reg Complete Request 07/05/2024 21:49:52 Reg Bed Request Complete 07/05/2024 21:49:52 07/05/2024 21:49:52 07/05/2024 21:49:52 EKG Cancel 07/05/2024 21:50:53 07/05/2024 22:28:11 X-Ray Complete 07/05/2024 21:52:58 07/05/2024 22:04:06 07/05/2024 22:12:02 Bed Assign Complete 07/05/2024 21:53:45 07/05/2024 21:53:45 07/05/2024 21:53:45 Dr Exam Complete 07/05/2024 21:53:45 07/05/2024 21:54:18 07/05/2024 21:54:18 RN Exam Complete 07/05/2024 21:53:45 07/05/2024 22:40:17 07/05/2024 22:40:17 Registration Request 07/05/2024 21:54:18 Dr Exam Complete 07/05/2024 21:55:50 07/05/2024 21:55:50 07/05/2024 21:55:50 Wet Read Complete 07/05/2024 22:12:02 07/05/2024 22:20:31 07/05/2024 22:20:31 Pending Labs Complete 07/05/2024 22:27:58 07/05/2024 22:57:33 Lab Complete 07/05/2024 22:27:58 07/05/2024 22:57:33 Swab Complete 07/05/2024 22:27:58 07/05/2024 22:57:33 Discharge Complete 07/05/2024 23:10:12 07/05/2024 23:18:30 07/05/2024 23:18:30 Transfer Complete 07/05/2024 23:18:30 07/05/2024 23:18:30 07/05/2024 23:18:30 ADDRESS: [address] [place] [address] [address] [place] [phone] PHYS DOC NOTES: MEDICAL INFORMATION: Prescriptions Given: New Medications [facility] #[id number], [address] [place], [place] [id number], [phone] cefdinir (cefdinir 300 mg Cap) 1 Capsules By Mouth every 12 hours for 7 Days. Refills: 0. naproxen (naproxen 500 mg Tab) 1 Tablets By Mouth 2 times a day for 10 Days. Refills: 0. PATIENT EDUCATION INFORMATION: Instructions: Upper Respiratory Infection, Adult; Otitis Media, Adult Follow up: With: Address: When: Abbi JAY [address] [place] [phone] Business (1) In 3 days 07/08/2024 DIAGNOSIS: Cough; Otitis media, right; [facility] Patient Summaryon [id number] Patient SummaryED Patient Summary [address] [address] Patient Discharge Instructions Person Information Name: JET DUNCAN Age: 18 Years Arrival Date: 07/05/2024 21:45:44 Discharge Diagnosis: Cough; Otitis media, right; Upper respiratory infection Primary Care Physician: Abbi JAY CNP Provider Information Primary Provider: Naot Lezama DO Advanced Educational Technician:Johnny ROSADO, Santiago Almeida The exam and treatment you received in the Emergency Department were for an urgent problem and are not intended as complete care. It is important that you follow up with a doctor, nurse practitioner,or physician???s assistant project manager for ongoing care. If your symptoms become worse or you do not improve asexpected and you are unable to reach your usual health care provider, you should return to the Emergency Department. We are available 24 hours a day. JET DUNCAN has been given the following list of patient education materials, prescriptions and follow-up instructions: Follow-up Instructions: With: Address: When: Abbi JAY [address] [place] [phone] Business (1) In 3 days 07/08/2024 In the event that this physician does not participate in your insurance network, please consult with your insurance company to find a nearby participating provider. Patient Education Materials: Upper Respiratory Infection, Adult; Otitis Media, Adult A MESSAGE TO ALL PATIENTS REGARDING OPIOIDS PRESCRIPTION OPIOIDS: WHAT YOU NEED TO KNOW Prescription opioids can be used to help relieve gpeoqwvk-eo-lqtttk pain and are often prescribed following a surgery or injury, or for certain health conditions. These medications can be an important part of the treatment but also come with serious risks. It is important to work with your healthcare provider to make sure you are getting the safest, most effective care. WHAT ARE THE RISKS AND SIDE EFFECTS OF OPIOID USE? Prescription opioids carry serious risks of addiction and overdose, especially with prolonged use. An opioid overdose, often marked by slowed breathing, can cause sudden . The use of prescription opioids can have a number of side effects as well, even when taken as directed: ??? Tolerance???meaning you might need to take more of the medication for the same pain relief ??? Physical dependence???meaning you have symptoms of withdrawal when a medication is stopped ??? Increased sensitivity to pain ??? Constipation ??? Nausea, vomiting, and dry mouth ??? Sleepiness and dizziness ??? Confusion ??? Depression ??? Low levels of testosterone that can result in lower sex drive, energy, and strength ??? Itching and sweating RISKS ARE GREATER WITH: ??? History of drug misuse, substance use disorder, or overdose ??? Mental health conditions (such as depression or anxiety) ??? Sleep apnea ??? Older age (65 years and older) ??? Avoid alcohol while taking prescription opioids. Also, unless specifically advised by your health care provider, medications to avoid include: ??? Benzodiazepines (such as Xanax or Valium) ??? Muscle relaxants (such as Soma or Flexeril) ??? Hypnotics (such as Ambien or Lunesta) ??? Other prescription opioids KNOW YOUR OPTIONS Talk to your health care provider about ways to manage your pain that don???t involve prescription opioids. Some of these options may actually work better and have fewer risks and side effects. Options may include: ??? Pain relievers such as acetaminophen, ibuprofen, and naproxen ??? Some medication that are also used for depression or seizures ??? Physical therapy and exercise ??? Cognitive behavioral therapy, a psychological, goal-directed approach, in which patients learn how to modify physical, behavioral, and emotional triggers of pain and stress. IF YOU ARE PRESCRIBED OPIOIDS FOR PAIN: ??? Never take opioids in greater amounts or more often than prescribed. ??? Follow up with your primary health care provider. o Work together to create a plan on how to manage your pain. o Talk about ways to help manage your pain that don???t involve prescription opioids. o Talk about any and all concerns and side effects. ??? Help prevent misuse and abuse o Never sell or share prescription opioids. o Never use another person???s prescription opioids. ??? Store prescription opioids in a secure place and out of reach of others (this may include visitors, children, friends, and family). ??? Safely dispose of unused prescription opioids: Find your community drug take-back program or your pharmacy mail-back program, or flush them down the toilet, following guidance from the Food and Drug Administration (www.fda.gov/Drugs/ResourcesForYou). ??? Visit www.cdc.gov/drugoverdose to learn about the risks of opioids abuse and overdose. ??? If you believe you may be struggling with (more content not included)... NormalMetrohealth Main Campus Medical CenterInfluenza A&B Agon 41-71-1693Mffyasumku A Ag NegativeNormalNegativeMetrohealth Main Campus Medical CenterComment on above:Performed By: #### [id number] #### [facility] [address] [place], [place] [address]Vjdoozlqkn B AgNegativeNormalNegativeFisher [facility] And HospitalComment on above:Result Comment: Test sensitivity and specificity vary for age group, specimen type, antigen types, and prevalence of disease. Test results must be evaluated in conjunction with other clinical data available to the physician. Individuals who received nasally administered Influenza A vaccine may havepositive test results up to 3 days after vaccination.Performed By: #### [id number] #### [facility] [address] [place], [place] [address]VUWMB OTHER TESTSOrdered By: Pauline Munoz on 07-05-2024 Influenzae A AgNegative (07/05/24 10:36 PM)NormalNegativeLAKESIDE WOM[facility] [place] Man SeroInfluenzae B AgNegative 1 (07/05/24 10:36 PM)NormalNegativeLAKESIDE WOMEN'S [facility]OSP[facility] [place] Man SeroComment on above:Interpretive Data: Test sensitivity and specificity vary for age group, specimen type, antigen types, and prevalence of disease. Test results must be evaluated in conjunction with other clinical dataavailable to the physician. Individuals who received nasally administered Influenza A vaccine may have positive test results up to 3 days after vaccination.Rapid COV Int NEG CtlPass (07/05/24 10:36 PM)NormalLAKESIDE WOMEN'S HOSP[facility] [place] Man SeroRapid COV Int POS CtlPass (07/05/24 10:36 PM)NormalLAKESIDE WOMEN'S [facility] [place] Man SeroSARS-CoV+SARS-CoV-2 (COVID-19) Ag IA.rapid Ql (Resp)Not Detected 2 (07/05/24 10:36 PM)NormalNot DetectedLAKESIDE WOMEN'S [facility]OSP[facility] [place] Man SeroComment on above:Interpretive Data: The FeedHenry Veritor System for Rapid Detection of SARS-CoV-2 is a chromatographic digital immunoassay intended for the direct and qualitative detection of SARS-CoV-2 nucleocapsid antigens in nasal swabs from individuals who are suspected of COVID-19 by their healthcare provider withinthe first five days of the onset of symptoms. Negative results should be treated as presumptive, do not rule out SARS-CoV-2 infection and should not be used as the sole basis for treatment or patient management decisions, including infection control decisions. Negative results should be considered in the context of a patient s recent exposures, history and the presence of clinical signs and symptoms consistent with COVID-19, and confirmed with a molecular assay, if necessary, for patient management. For in vitro diagnostic use. In the [place], only for use under an Emergency Use Authorization. In the [place], this test has not been FDA cleared or approved; this test has been authorized by FDA under an EUA for use by authorized laboratories; use by laboratories certified under the CLIA, 42 U.S.C. 263a, that meet requirements to perform moderate, high, or waived complexity tests and at the Point of Care (POC), i.e., in patient care settings operating under a CLIA Certificate of Waiver, Certificate of Compliance, or Certificate of Accreditation. This test has been authorized only for the detection of proteins from SARS-CoV-2, not for any otherviruses or pathogens; and, in the [place], this test is only authorized for the duration of the declaration that circumstances exist justifying the authorization of emergency use of in vitro diagnostics for detection and/or diagnosis of the virus that causes COVID-19 under Section 564(b)(1) of the Act,21 U.S.C. 360bbb-3(b)(1), unless the authorization is terminated or revoked sooner.Rapid COVID Antigen ([facility])on 23-37-7311Oozey COV Int NEG CtlPassNoSelect Medical Specialty Hospital - Southeast OhioComment on above:Performed By: #### [id number] #### [facility] [address] [place], [place] [address]Acbsb COV Int POS CtlPassNormalMetrohealth Main Campus Medical Center Comment on above:Performed By: #### [id number] #### [facility] [address] [place], [place] [address]GAWC-HyJ+SARS-CoV-2 (COVID-19) Ag IA.rapid Ql (Resp)Not detectedNormalNot Main Campus Medical CenterComment on above:Result Comment: The BD Veritor??? System for Rapid Detection of SARS-CoV-2 is a chromatographic digital immunoassay intended for the direct and qualitative detection of SARS-CoV-2 nucleocapsid antigens in nasal swabs from individuals who are suspected of COVID-19 by their healthcare provider withinthe first five days of the onset of symptoms. Negative results should be treated as presumptive, do not rule out SARS-CoV-2 infection and should not be used as the sole basis for treatment or patient management decisions, including infection control decisions. Negative results should be considered in the context of a patient???s recent exposures, history and the presence of clinical signs and symptoms consistent with COVID-19, and confirmed with a molecular assay, if necessary, for patient management. For in vitro diagnostic use. In the [place], only for use under an Emergency Use Authorization. In the [place], this test has not been FDA cleared or approved; this test has been authorized by FDA under an EUA for use by authorized laboratories; use by laboratories certified under the CLIA, 42 U.S.C. ???263a, that meet requirements to perform moderate, high, or waived complexity tests and at the Point of Care (POC), i.e., in patient care settings operating under a CLIA Certificate of Waiver, Certificate of Compliance, or Certificate of Accreditation. This test has been authorized only for the detection of proteins from SARS-CoV-2, not for any otherviruses or pathogens; and, in the [place], this test is only authorized for the duration of the declaration that circumstances exist justifying the authorization of emergency use of in vitro diagnostics for detection and/or diagnosis of the virus that causes COVID-19 under Section 564(b)(1) of the Act,21 U.S.C. ??? 360bbb-3(b)(1), unless the authorization is terminated or revoked sooner.Performed By: #### [id number] #### [facility] [address] [address]KD CHEST 1 VWon [id number] CHEST 1 VWXR CHEST 1 VW EXAM: XR CHEST 1 VW CLINICAL INFORMATION: Cough, sob. COMPARISON: 10/30/2023 FINDINGS: There are no pleural effusions. The lungs are clear and well aerated. Heart size is within normal limits. IMPRESSION: 1. No acute cardiopulmonary disease. Finalized by Sotero Meneses MD on 07/05/2024 2:46 [facility] Pathology study report documentOrdered By: Chavez Valentine on 69-86-5714Cpddsvypq study [facility] Other Lon 03-22-2024L Specimen: [id number] Received: 03/22/24 Status: MELECIO Little Num: [id number] Spec Type: Surgical Subm Dr: Wilver Felton MD Tissues: A Small Intestine - Biopsy/Polyp (SMALL BOWEL BX'S R/O CELIAC) B GASTRIC FOR HP (GASTRIC BX'S R/O H PYLORI) C Colon Biopsy (RANDOM COLON BX'S R/O MICRO ) Procedures: HE/6, Gross/Micro L4/3, H PYLORI Age/ Patient Sex Location Account Attending Physician Jet Duncan 18/M [id number] Wilver Felton MD SPEC NUM: [id number] RECD: 03/22/24 STATUS: MELECIO LITTLE NUM: [id number] OLEGARIO: 03/22/24 [facility] DR: Wilver Felton MD ENTERED: 03/22/24 [facility] DR: SPEC TYPE: Surgical DEPT: S ENTERED BY: [id number] RECV BY: [id number] ORDERED: HE/6, Gross/Micro L4/3, H PYLORI ORDERED: [...] submitted in a single cassette. (1, ns, [id number] A) NAOMI Specimen: [id number] Received: 03/22/24 Status: MELECIO Little Num: [id number] Spec Type: Surgical Subm Dr: Wilver Felton MD Tissues: A Small Intestine - Biopsy/Polyp (SMALL BOWEL BX'S R/O CELIAC) B GASTRIC FOR HP (GASTRIC BX'S R/O H PYLORI) C Colon Biopsy (RANDOM COLON BX'S R/O MICRO ) Procedures: , Gross/Micro L4/3, H PYLORI Patient: Paul Duncanqueta Rashid [id number] (Continued) Specimen: [id number] Received: 03/22/24 (Continued) Gross Description (Continued) Signed (signature on file) Chavez Valentine MD 03/23/24 1501 Specimen: [id number] Received: 03/22/24 Status: MELECIO Little Num: [id number] Spec Type: Surgical Subm Dr: Wilver Felton MD Tissues: A Small Intestine - Biopsy/Polyp (SMALL BOWEL BX'S R/O CELIAC) B GASTRIC FOR HP (GASTRIC BX'S R/O H PYLORI) C Colon Biopsy (RANDOM COLON BX'S R/O MICRO ) Procedures: , Gross/Micro L4/3, H PYLORI Patient: Jet Duncan [id number] (Continued) Specimen: [id number] Received: 03/22/24 (Continued) Gross Description (Continued) Part B is received in formalin labeled with the patients name and gastric BX are two richards- waldrop, focally erythematous, friable, 0.3 cm each in greatest dimension tissue bits. The specimen is entirely submitted in a single cassette. (1, ns, [id number]) Part C is received in formalin labeled with the patients name and random colon BX'S are two richards-waldrop, focally erythematous, friable, 0.2 and 0.4 cm tissue bits. The specimen is entirely submitted in a single cassette. (1, ns, [id number] C) Microscopic Description A-C: Microscopic examination is performed. CPT Codes 38655 x3, 72540 Specimen: [id number] Received: 03/22/24 Status: MELECIO Little Num: [id number] Spec Type: Surgical Subm Dr: Wilver Felton MD Tissues: A Small Intestine - Biopsy/Polyp (SMALL BOWEL BX'S R/O CELIAC) B GASTRIC FOR HP (GASTRIC BX'S R/O H PYLORI) C Colon Biopsy (RANDOM COLON BX'S R/O MICRO ) Procedures: HE/6, Gross/Micro L4/3, H PYLORI (more content not included)...NormalThe [facility] Physician GroupCholesterol [Mass/volume] in Serum or PlasmaOrdered By: Kareem Tijerina on 08-13-2023 Cholesterol [Mass/Vol]162 mg/rIPwtxyt941-593HfioxyyxmSycamore Medical Center Comment on above:Chol less than 200 mg/dl low riskChol 201-239 mg/dl borderline riskChol 240 mg/dl and greater high riskResult Comment: Chol less than 200 mg/dl low risk Chol 201-239 mg/dl borderline risk Chol 240 mg/dl and greater high riskPerformed By: #### MITOM2, L-K MICRO, ALPHA PHEN, HEMOCHROM, CERULOP, TENA, IGG, SMAB #### [facility] , #### PARVEEN, TSH3 #### [facility] [address] [place] [address] USACholesterol in LDL Calc [Mass/Vol]Ordered By: Kareem Tijerina on 33-80-2253Rotosjarosn in LDL [Mass/Vol]101 mg/dLHigh0-100[facility] Medical CenterComment on above:LDL ATP III CLASSIFICATIONLDL less than 100 mg/dL OptimalLDL 100-129 mg/dL Near or above zweocdbDTR777-546 mg/dL Borderline highLDL 160-189 mg/dL HighLDL greater than 189 mg/dL Very high Cholesterol in VLDL Calc [Mass/Vol]Ordered By: Kareem Tijerina on 08-13-2023 Cholesterol in VLDL [Mass/Vol]28 mg/dLSycamore Medical CenterHbA1c HPLC (Bld) [Mass fraction]on 54-77-0941IkV6k (Bld) [Mass fraction]5.6 %[facility] Medical CenterInsulinon 63-13-1056Gtdztfi31.8 u[iU]/mLNormal2.6-24.9The [facility] Physician GroupComment on above:Result Comment: Performed at: [facility] [id number] Registered Sales Assistant: Zechariah Paula PhD, Phone: [phone] PERFORMED BY: [place] [address] PATHOLOGIST LACTATION CONSULTANT LISA COOLEY M.D.Performed By: #### MITOM2, L-K MICRO, ALPHA PHEN, HEMOCHROM, CERULOP, TENA, IGG, SMAB #### [facility] , #### PARVEEN, TSH3 #### [facility] [address] [place] [address] USALipid Panelon 56-26-4656YCA Cholesterol,Dbwjjgzuvv696 mg/dLHigh0-100The [facility] Physician [facility] CenterComment on above:Result Comment: LDL ATP III CLASSIFICATION LDL less than 100 mg/dL Optimal LDL 100-129 mg/dL Near or above optimal LDL 130-159 mg/dL Borderline high LDL 160-189 mg/dL High LDL greater than 189 mg/dL Very highPerformed By: #### MITOM2, L-K MICRO, ALPHA PHEN, HEMOCHROM, CERULOP, TENA, IGG, SMAB #### [facility] , #### PARVEEN, TSH3 #### [facility] [address] [place] [address] USATriglyceride w/Fwnqmj463 mg/dLNormal0-149The [facility] Physician GroupComment on above:Result Comment: TRIG ATP III CLASSIFICATION TRIG less than 150 mg/dL Normal TRIG 150-199 mg/dL Borderline high TRIG 200-500 mg/dL High TRIG greater than 500 mg/dL Very high Standard traceable to the Center for Disease Conrtrol and Prevention (CDC) test method.Performed By: #### MITOM2, L-K MICRO, ALPHA PHEN, HEMOCHROM, CERULOP, TENA, IGG, SMAB #### [facility] , #### PARVEEN, TSH3 #### [facility] [address] [address] USAVLDL JVUYHNFVDOP61 mg/dLNoNorth Carolina Specialty Hospital Physician GroupComment on above:Performed By: #### MITOM2, L-K MICRO, ALPHA PHEN, HEMOCHROM, CERULOP, TENA, IGG, SMAB #### [facility] , #### PARVEEN, TSH3 #### [facility] [address] [place] [address] USASerum or plasma high density lipoprotein (HDL) cholesterol measurementOrdered By: Kareem Tijerina on 71-32-6819Nrazdncajvn in HDL [Mass/Vol]32 mg/qGTirmdb23-07KeitnmzgaSycamore Medical CenterComment on above: HDL CHOL ATP-III CLASSIFICATION Cardiovascular RiskHDL > or equal to 60 mg/dL LOWHDL < 40 mg/dL HIGHResult Comment: HDL CHOL ATP-III CLASSIFICATION Cardiovascular Risk HDL > or equal to 60 mg/dL LOW HDL < 40 mg/dL HIGHPerformed By: #### MITOM2, L-K MICRO, ALPHA PHEN, HEMOCHROM, CERULOP, TENA, IGG, SMAB #### [facility] , #### PARVEEN, TSH3 #### [facility] [address] [id number] USASerum or plasma insulin measurement (units/volume)Ordered By: Kareem Tijerina on 18-62-3747Jaanefx Qn23.8 u[iU]/mL2.6-24.9Sy[facility]ore Medical CenterComment on above:Performed at: [facility] [id number] Director: Zechariah Paula PhD, Phone: [phone] or plasma total cholesterol/high density lipoprotein (HDL) cholesterol mass ratOrdered By: Kareem Tijerina on 08-13-2023 Cholesterol.total/Cholesterol in HDL [Mass ratio]5.1 {ratio}Normal<5.0Sy[facility]ore Medical CenterComment on above:Result Comment: PERFORMED BY: [place] [address] PATHOLOGIST LACTATION CONSULTANT LISA COOLEY M.D.Performed By: #### MITOM2, L-K MICRO, ALPHA PHEN, HEMOCHROM, CERULOP, TENA, IGG, SMAB #### [facility] , #### PARVEEN, TSH3 #### [place] [address] USATriglyceride [Mass/volume] in Serum or PlasmaOrdered By: Kareem Tijerina on 22-59-5135Nbaliosdsxtz [Mass/Vol]144 mg/dL0-149[facility] Medical CenterComment on above:TRIG ATP III CLASSIFICATIONTRIG less than 150 mg/dL NormalTRIG 150-199 mg/dL Borderline highTRIG 200-500 mg/dL High TRIG greater than 500 mg/dL Very highStandard traceable to the Center for Disease Conrtrol and Prevention (CDC) test method.Laboratory - Chemistry and Chemistry - challengeon 19-31-4243CTV Qn1.138 m[IU]/L0.516-4.130[facility] Medical CenterNo Panel Informationon 97-38-714680637016-Grsciom Vitamin D Total11.0 ng/mLSycamore Medical CenterComment on above:<20 ng/mL Vit D voymsikgq20-<30 ng/mL Vit D wqwqutvatpey35-230 ng/mL Vit D sufficient>100 ng/mL Potential ToxicitySerum or plasma thyroperoxidase antibody assay (units/volume) on 69-75-0165HAQ Ab Qn9 [IU]/mL0-26[facility] Thyroglobulin [Mass/volume] in Serum or Plasmaon 91-95-8466Uhrrtsooadvsv [Mass/Vol]<1.0 [IU]/mL0.0-0.9Fire[facility] Medical CenterComment on above: Thyroglobulin Antibody measured by Ana Maria CoulterMethodologyIt should be noted that the presence of thyroglobulinantibodies may not be pathogenic nor diagnostic, especiallyat very low levels. The assay forensic document examiner has found thatfour percent of individuals without evidence of thyroiddisease or auto immunity will have positive TgAb levels upto 4 IU/mL.Performed at: [address] [id number] Director: Zechariah Paula PhD, Phone: [phone] 60-93-6444Eyrqjvcnaidca [id number]#1.00[facility] Office/Clinic Noteon 56-38-0893Etopxujfjwrbi [id number]#1.00[facility] Office/Clinic [id number]#1.00[facility]letown HospitalAlanine aminotransferase [Enzymatic activity/volume] in Serum or PlasmaOrdered By: Lewis Mirza on 32-31-4339OXB [Catalytic activity/Vol]56 U/LHigh7-52[facility] Medical CenterComment on above:Performed By: #### MITOM2, L-K MICRO, ALPHA PHEN, HEMOCHROM, CERULOP, TENA, IGG, SMAB #### [facility] , #### PARVEEN, TSH3 #### [place] [address] USAAlbumin [Mass/volume] in Serum or Plasma by Bromocresol green (BCG) dye binding methoOrdered By: Lewis Mirza on 93-03-6920Kmgdjrg BCG dye [Mass/Vol]4.4 g/dL3.5-5.7FMercy Health St. Anne HospitalAlkaline phosphatase [Enzymatic activity/volume] in Serum or PlasmaOrdered By: Lewis Mirza on 30-86-0767BSB [Catalytic activity/Vol]58 U/HQvrozq26-141CszpzzhwiSycamore Medical CenterComment on above:Performed By: #### MITOM2, L-K MICRO, ALPHA PHEN, HEMOCHROM, CERULOP, TENA, IGG, SMAB #### [facility] , #### PARVEEN, TSH3 #### [place] [address] USAAnti-Centromere B Antibodieson 68-79-0485Hyyf-Centromere B Antibodies<0.6Mprhdd9.0-0.9[facility] Physician GroupComment on above:Result Comment: Performed at: [facility] [id number] Registered Sales Assistant: Zechariah Paula PhD, Phone: [phone] By: #### MITOM2, L-K MICRO, ALPHA PHEN, HEMOCHROM, CERULOP, TENA, IGG, SMAB #### [facility] , #### PARVEEN, TSH3 #### [place] [address] USAAnti-RNPon 49-06-5631Prki-RNP0.6Eoyxuu3.0-0.9The [facility] GroupComment on above:Performed By: #### MITOM2, L-K MICRO, ALPHA PHEN, HEMOCHROM, CERULOP, TENA, IGG, SMAB #### [facility] , #### PARVEEN, TSH3 #### [place] [address] USAAnti-Newberry Antibodieson 84-22-4473Jfvj-Newberry Antibodies <0.0Cljhcc9.0-0.9The [facility] GroupComment on above:Performed By: #### MITOM2, L-K MICRO, ALPHA PHEN, HEMOCHROM, CERULOP, TENA, IGG, SMAB #### [facility] , #### PARVEEN, TSH3 #### [place] [address] USAAnti-dsDNA(DBL)Abon 72-23-4070Bcjm-dsDNA(DBL)Ou2Spcnjt4-9 [facility] Physician GroupComment on above:Result Comment: Negative <5 Equivocal 5 - 9 Positive >9Performed By: #### MITOM2, L-K MICRO, ALPHA PHEN, HEMOCHROM, CERULOP, TENA, IGG, SMAB #### [facility] , #### PARVEEN, TSH3 #### [place] [address] USAAspartate aminotransferase [Enzymatic activity/volume] in Serum or PlasmaOrdered By: Lewis Mirza on 70-14-1694TDH [Catalytic activity/Vol]30 U/ZNyyjmi02-69SrfmtqjxjSycamore Medical CenterComment on above: Performed By: #### MITOM2, L-K MICRO, ALPHA PHEN, HEMOCHROM, CERULOP, TENA, IGG, SMAB #### [facility] , #### PARVEEN, TSH3 #### [place] [address] USAAutomated basophil %Ordered By: Lewis Mirza on 92-39-0123Dnuemycff/100 WBC (Bld)0.7 %Normal.[facility] Comment on above:Performed By: #### MITOM2, L-K MICRO, ALPHA PHEN, HEMOCHROM, CERULOP, TENA, IGG, SMAB #### [facility] , #### PARVEEN, TSH3 #### [facility] [address] [place] [address] USAAutomated basophil countOrdered By: Lewis Mirza on 34-16-2510Sjdqwaftj (Bld) [#/Vol]0.0 10*3/uLNormal0.0-0.2FMercy Health St. Anne HospitalComment on above:Performed By: #### MITOM2, L-K MICRO, ALPHA PHEN, HEMOCHROM, CERULOP, TENA, IGG, SMAB #### [facility] , #### PARVEEN, TSH3 #### [place] [address] USAAutomated blood monocyte countOrdered By: Lewis Mirza on 68-84-3513Pfriwtwvd (Bld) [#/Vol]0.7 10*3/uLNormal0.0-0.8[facility] CenterComment on above:Performed By: #### MITOM2, L-K MICRO, ALPHA PHEN, HEMOCHROM, CERULOP, TENA, IGG, SMAB #### [facility] , #### PARVEEN, TSH3 #### [facility] [address] [place] [address] USAAutomated eosinophil %Ordered By: Lewis Mirza on 59-61-7713Neoduuosres/100 WBC (Bld)2.7 %Normal.[facility] Comment on above:Performed By: #### MITOM2, L-K MICRO, ALPHA PHEN, HEMOCHROM, CERULOP, TENA, IGG, SMAB #### [facility] , #### PARVEEN, TSH3 #### [place] [address] USAAutomated eosinophil countOrdered By: Lewis Mirza on 55-00-1061Ewxyalcpkpf (Bld) [#/Vol]0.2 10*3/uLNormal0.0-0.45[facility] Medical CenterComment on above:Performed By: #### MITOM2, L-K MICRO, ALPHA PHEN, HEMOCHROM, CERULOP, TENA, IGG, SMAB #### [facility] , #### PARVEEN, TSH3 #### [place] [address] USAAutomated erythrocytes count in urine sediment (number/area)Ordered By: Lewis Mirza on 83-75-2293JCV Auto (Urine sed) [#/Area]1-2 [HPF]0-4FMercy Health St. Anne HospitalAutomated leukocytes count in urine sediment (number/area)Ordered By: Lewis Mirza on 08-08-7689DKP Auto (Urine sed) [#/Area]None seen [HPF]0-4FMercy Health St. Anne HospitalAutomated monocyte %Ordered By: Lewis Mirza on 01-04-2856Kgxiqpaiv/100 WBC (Bld)10.7 % Normal.[facility] Medical CenterComment on above:Performed By: #### MITOM2, L-K MICRO, ALPHA PHEN, HEMOCHROM, CERULOP, TENA, IGG, SMAB #### [facility] , #### PARVEEN, TSH3 #### [facility] [address] [place] [address] USAAutomated neutrophil %Ordered By: Lewis Mirza on 22-05-6480Iojhoxnvnal/100 WBC (Bld)53.4 %Normal.[facility] Medical CenterComment on above:Performed By: #### MITOM2, L-K MICRO, ALPHA PHEN, HEMOCHROM, CERULOP, TENA, IGG, SMAB #### [facility] , #### PARVEEN, TSH3 #### [place] [address] USAAutomated urine color determinationOrdered By: Lewis Mirza on 92-86-4768Rwuud (U)YellowNormalYellowSycamore Medical CenterComment on above:Order Comment: Reason for Exam Elevated LFTs Reason for Exam FatiguePerformed By: #### MITOM2, L-K MICRO, ALPHA PHEN, HEMOCHROM, CERULOP, TENA, IGG, SMAB #### [facility] , #### PARVEEN, TSH3 #### [place] [address] USABilirubin Test strip Ql (U)Ordered By: Lewis Mirza on 90-86-2126Pdiuxgmug Ql (U)NegativeNegativeSycamore Medical Center Bilirubin.total [Mass/volume] in Serum or PlasmaOrdered By: Lewis Mirza on 35-65-4067Zpebkxvry [Mass/Vol]0.8 mg/dLNormal0.3-1.0[facility] Medical CenterComment on above:Performed By: #### MITOM2, L-K MICRO, ALPHA PHEN, HEMOCHROM, CERULOP, TENA, IGG, SMAB #### [facility] , #### PARVEEN, TSH3 #### [facility] [address] [place] [address] USAC reactive protein [Mass/volume] in Serum or PlasmaOrdered By: Lewis Mirza on 51-22-3324NWP [Mass/Vol]< 0.5 mg/dL0.0-0.5FMercy Health St. Anne HospitalC-Reactive Proteinon 86-45-7579QLZ [Mass/Vol]mg/LNormal 0.0-0.5The [facility] Physician GroupComment on above:Performed By: #### MITOM2, L-K MICRO, ALPHA PHEN, HEMOCHROM, CERULOP, TENA, IGG, SMAB #### [facility] , #### PARVEEN, TSH3 #### [facility] [address] [id number] USACalcium [Mass/volume] in Serum or PlasmaOrdered By: Lewis Mirza on 56-35-2676Nmhzoxb [Mass/Vol]9.4 mg/dLNormal8.6-10.3FMercy Health St. Anne HospitalComment on above:Performed By: #### MITOM2, L-K MICRO, ALPHA PHEN, HEMOCHROM, CERULOP, TENA, IGG, SMAB #### [facility] , #### PARVEEN, TSH3 #### [facility] [address] [id number] USACarbon dioxide, total [Moles/volume] in Serum or Plasma Ordered By: Lewis Mirza on 20-92-0992OX9 [Moles/Vol]23.5 mmol/LNormal 21.0-31.0[facility] Medical CenterComment on above:Performed By: #### MITOM2, L-K MICRO, ALPHA PHEN, HEMOCHROM, CERULOP, TENA, IGG, SMAB #### [facility] , #### PARVEEN, TSH3 #### [facility] [address] [id number] USAChloride [Moles/volume] in Serum or PlasmaOrdered By: Lewis Mirza on 84-59-3599Zdhlwunr [Moles/Vol]107 mmol/GWrrlsv57-529TxqpjocntSycamore Medical CenterComment on above:Performed By: #### MITOM2, L-K MICRO, ALPHA PHEN, HEMOCHROM, CERULOP, TENA, IGG, SMAB #### [facility] , #### PARVEEN, TSH3 #### [place] [address] USAComplement C3on 84-93-9561Ikbyooagaj C3161 mg/dLNormal 82-167The [facility] Physician GroupComment on above:Result Comment: Performed at: [facility] [address] [id number] Registered Sales Assistant: Zechariah aPula PhD, Phone: [phone] By: #### MITOM2, L-K MICRO, ALPHA PHEN, HEMOCHROM, CERULOP, TENA, IGG, SMAB #### [facility] , #### PARVEEN, TSH3 #### [place] [address] USAComplement C4on 63-47-5458Pwhcykifsx C424 mg/eTTdgcek94-54 [facility] Physician GroupComment on above:Performed By: #### MITOM2, L-K MICRO, ALPHA PHEN, HEMOCHROM, CERULOP, TENA, IGG, SMAB #### [facility] , #### PARVEEN, TSH3 #### [place] [address] USAComplement Total (CH50)on 82-55-1311Zdrkbcioat Total (CH50)49Normal>41The [facility] Physician [facility] CenterComment on above:Result Comment: Age Male Female 1 - 30 [...] determine out of range values. Performed at: [facility] [address] [id number] Registered Sales Assistant: Zechariah Paula PhD, Phone: [phone] PERFORMED BY: [place] [id number] PATHOLOGIST LACTATION CONSULTANT LISA COOLEY M.D.Performed By: #### MITOM2, L-K MICRO, ALPHA PHEN, HEMOCHROM, CERULOP, TENA, IGG, SMAB #### [facility] , #### PARVEEN, TSH3 #### [place] [address] USAComplete Blood Count Auto Diffon 35-17-7739Yupf Corpuscular HGB Conc34.1 g/oBJerirn52.5-35.6The [facility] Physician GroupComment on above:Performed By: #### MITOM2, L-K MICRO, ALPHA PHEN, HEMOCHROM, CERULOP, TENA, IGG, SMAB #### [facility] , #### PARVEEN, TSH3 #### [place] [address] USANRBC%0.2 /100{WBC}Normal0-0.5[facility] Comment on above:Performed By: #### MITOM2, L-K MICRO, ALPHA PHEN, HEMOCHROM, CERULOP, TENA, IGG, SMAB #### [facility] , #### PARVEEN, TSH3 #### [place] [address] USAComprehensive Metabolic Panelon 57-50-9303Ygoagfa [Mass/Vol]4.4 g/dLNormal3.5-5.7The [facility] Physician [facility] CenterComment on above: Performed By: #### MITOM2, L-K MICRO, ALPHA PHEN, HEMOCHROM, CERULOP, TENA, IGG, SMAB #### [facility] , #### PARVEEN, TSH3 #### [place] [address] USAGFR/1.73 sq M.predicted MDRD (S/P/Bld) [Vol rate/Area] mL/min/{1.73_m2}NormalThe [facility] Physician GroupComment on above:Performed By: #### MITOM2, L-K MICRO, ALPHA PHEN, HEMOCHROM, CERULOP, TENA, IGG, SMAB #### [facility] , #### PARVEEN, TSH3 #### [place] [id number] USACreatine kinase [Enzymatic activity/volume] in Serum or PlasmaOrdered By: Lewis Mirza on 10-08-1708FT [Catalytic activity/Vol]112 U/L Bupcrb95-647IzxpuskteSycamore Medical CenterComment on above:Result Comment: PERFORMED BY: [place] [address] PATHOLOGIST LACTATION CONSULTANT LISA COOLEY M.D.Performed By: #### MITOM2, L-K MICRO, ALPHA PHEN, HEMOCHROM, CERULOP, TENA, IGG, SMAB #### [facility] , #### PARVEEN, TSH3 #### [facility] [address] [place] [address] USACreatinine [Mass/volume] in Serum or PlasmaOrdered By: Lewis Mirza on 24-93-4344Ttlfmgkupy [Mass/Vol]0.78 mg/dLNormal0.70-1.30 [facility] CenterComment on above:Performed By: #### MITOM2, L-K MICRO, ALPHA PHEN, HEMOCHROM, CERULOP, TENA, IGG, SMAB #### [facility] , #### PARVEEN, TSH3 #### [place] [id number] USADNA double strand Ab [Units/volume] in SerumOrdered By: Lewis Mirza on 51-69-8553YKQ double strand Ab Qn (S)3 [IU]/mL0-9Sy[facility] Medical CenterComment on above:Negative <5 Equivocal 5 - 9 Positive >9 Dipstick and Microscopicon 07-28-6383Opmnzwvcbn (U)ClearNormalClearThe [facility] Physician GroupComment on above:Order Comment: Reason for Exam Elevated LFTs Reason for Exam FatiguePerformed By: #### MITOM2, L-K MICRO, ALPHA PHEN, HEMOCHROM, CERULOP, TENA, IGG, SMAB #### [facility] , #### PARVEEN, TSH3 #### [place] [address] USABacteria,UrineNone SeenNormalNone SeenHca Florida Ucf [facility] Hospital Physician GroupComment on above:Order Comment: Reason for Exam Elevated LFTs Reason for Exam FatiguePerformed By: #### MITOM2, L-K MICRO, ALPHA PHEN, HEMOCHROM, CERULOP, TENA, IGG, SMAB #### [facility] , #### PARVEEN, TSH3 #### [place] [address] USABilirubin,UrineNegativeNormalNegativeHca Florida [facility] Physician GroupComment on above:Order Comment: Reason for Exam Elevated LFTs Reason for Exam FatiguePerformed By: #### MITOM2, L-K MICRO, ALPHA PHEN, HEMOCHROM, CERULOP, TENA, IGG, SMAB #### [facility] , #### PARVEEN, TSH3 #### [place] [address] USAGlucose Ql (U)NormalNormalNormalThe [facility] Physician GroupComment on above:Order Comment: Reason for Exam Elevated LFTs Reason for Exam FatiguePerformed By: #### MITOM2, L-K MICRO, ALPHA PHEN, HEMOCHROM, CERULOP, TENA, IGG, SMAB #### [facility] , #### PARVEEN, TSH3 #### [facility] [address] [place] [address] USAHyaline Casts,UrineNone SeenNormal0-8The [facility] Physician GroupComment on above:Order Comment: Reason for Exam Elevated LFTs Reason for Exam FatigueResult Comment: PERFORMED BY: [place] [address] PATHOLOGIST LACTATION CONSULTANT LISA COOLEY M.D.Performed By: #### MITOM2, L-K MICRO, ALPHA PHEN, HEMOCHROM, CERULOP, TENA, IGG, SMAB #### [facility] , #### PARVEEN, TSH3 #### [place] [address] USAKetones Ql (U)NegativeNormalNegativeHca Florida [facility] Physician GroupComment on above:Order Comment: Reason for Exam Elevated LFTs Reason for Exam FatiguePerformed By: #### MITOM2, L-K MICRO, ALPHA PHEN, HEMOCHROM, CERULOP, TENA, IGG, SMAB #### [facility] , #### PARVEEN, TSH3 #### [place] [address] USALeukocyte esterase Test strip Ql (U)NegativeNormalNegative [facility] Physician GroupComment on above:Order Comment: Reason for Exam Elevated LFTs Reason for Exam FatiguePerformed By: #### MITOM2, L-K MICRO, ALPHA PHEN, HEMOCHROM, CERULOP, TENA, IGG, SMAB #### [facility] , #### PARVEEN, TSH3 #### [place] [address] USANitrite,UrineNegativeNormalNegativeHca Florida [facility] Physician GroupComment on above:Order Comment: Reason for Exam Elevated LFTs Reason for Exam FatiguePerformed By: #### MITOM2, L-K MICRO, ALPHA PHEN, HEMOCHROM, CERULOP, TENA, IGG, SMAB #### [facility] , #### PARVEEN, TSH3 #### [place] [address] USAOccult Blood,UrineNegativeNormalNegativeHca [place] [facility] Physician GroupComment on above:Order Comment: Reason for Exam Elevated LFTs Reason for Exam FatiguePerformed By: #### MITOM2, L-K MICRO, ALPHA PHEN, HEMOCHROM, CERULOP, TENA, IGG, SMAB #### [facility] , #### PARVEEN, TSH3 #### [place] [address] USAProtein,UrineNegativeNormalNegativeHca [place] [facility] Physician GroupComment on above:Order Comment: Reason for Exam Elevated LFTs Reason for Exam FatiguePerformed By: #### MITOM2, L-K MICRO, ALPHA PHEN, HEMOCHROM, CERULOP, TENA, IGG, SMAB #### [facility] , #### PARVEEN, TSH3 #### [place] [address] USARBC,[id number] [facility] Physician GroupComment on above:Order Comment: Reason for Exam Elevated LFTs Reason for Exam FatiguePerformed By: #### MITOM2, L-K MICRO, ALPHA PHEN, HEMOCHROM, CERULOP, TENA, IGG, SMAB #### [facility] , #### PARVEEN, TSH3 #### [place] [address] USASpecificy Addison,Urine1.509Jyhthk7.001-1.030[facility] Physician GroupComment on above:Order Comment: Reason for Exam Elevated LFTs Reason for Exam FatiguePerformed By: #### MITOM2, L-K MICRO, ALPHA PHEN, HEMOCHROM, CERULOP, TENA, IGG, SMAB #### [facility] , #### PARVEEN, TSH3 #### [place] [address] USASquamous Epithelial Cell,UrineNone SeenNormal0-2[facility] Physician GroupComment on above:Order Comment: Reason for Exam Elevated LFTs Reason for Exam FatiguePerformed By: #### MITOM2, L-K MICRO, ALPHA PHEN, HEMOCHROM, CERULOP, TENA, IGG, SMAB #### [facility] , #### PARVEEN, TSH3 #### [place] [address] USAUrobilinogen,UrineNormalNormalNormalThe [facility] Physician GroupComment on above:Order Comment: Reason for Exam Elevated LFTs Reason for Exam FatiguePerformed By: #### MITOM2, L-K MICRO, ALPHA PHEN, HEMOCHROM, CERULOP, TENA, IGG, SMAB #### [facility] , #### PARVEEN, TSH3 #### [facility] [address] [place] [address] USAWBC,UrineNone SeenNormal0-4[facility] Comment on above:Order Comment: Reason for Exam Elevated LFTs Reason for Exam FatiguePerformed By: #### MITOM2, L-K MICRO, ALPHA PHEN, HEMOCHROM, CERULOP, TENA, IGG, SMAB #### [facility] , #### PARVEEN, TSH3 #### [place] [address] USAErythrocyte Sedimentation Rateon 20-85-8147VVX (Bld) [Velocity]14 mm/hNormal0-14[facility] Physician GroupComment on above:Result Comment: PERFORMED BY: [place] [address] PATHOLOGIST LACTATION CONSULTANT LISA COOLEY M.D.Performed By: #### MITOM2, L-K MICRO, ALPHA PHEN, HEMOCHROM, CERULOP, TENA, IGG, SMAB #### [facility] , #### PARVEEN, TSH3 #### [place] [address] USAErythrocyte distribution width [Ratio] by Automated count Ordered By: Lewis Mirza on 61-76-7114Reamuxtlutq distribution width (RBC) [Ratio]13.0 %Mwssof96.0-14.8[facility] Medical CenterComment on above: Performed By: #### MITOM2, L-K MICRO, ALPHA PHEN, HEMOCHROM, CERULOP, TENA, IGG, SMAB #### [facility] , #### PARVEEN, TSH3 #### [place] [address] USAErythrocyte sedimentation rate by Photometric method Ordered By: Lewis Mriza on 16-19-8971WVC Photometric method (Bld) [Velocity] 14 mm/hr0-14Sycamore Medical CenterErythrocytes [#/volume] in Blood by Automated countOrdered By: Lewis Mirza on 02-44-1926VEM (Bld) [#/Vol]4.85 10*6/uLNormal3.90-5.60[facility] Medical CenterComment on above: Performed By: #### MITOM2, L-K MICRO, ALPHA PHEN, HEMOCHROM, CERULOP, TENA, IGG, SMAB #### [facility] , #### PARVEEN, TSH3 #### [facility] [address] [place] [address] USAFibrillarin Ab [Presence] in SerumOrdered By: Lewis Mirza on 74-13-7625Equruaggckm Ab Ql (S)NegativeNegativeSycamore Medical CenterComment on above:This test was developed and its performance characteristicsdetermined by [facility]. It has not been cleared orapproved by the Food and Drug Administration.Performed at: [employer] [address] [id number] Director: Issa Thao MD, Phone: [phone] [Mass/volume] in Serum or PlasmaOrdered By: Lewis Mirza on 59-41-1630Vwdegse [Mass/Vol]98 mg/eETowbok93-092PpmmtkgjaSycamore Medical CenterComment on above:ADA recommended reference rangeRandom Glucose Reference Range is dependent on time and content of last meal. Glucose of more than 200 mg/dL in a nonstressed, ambulatory subject supports the diagnosisof Diabetes Mellitus.Result Comment: Random Glucose Reference Range is dependent on time and content of last meal. Glucose of more than 200 mg/dL in a nonstressed, ambulatory subject supports the diagnosis of Diabetes Mellitus. ADA recommended reference rangePerformed By: #### MITOM2, L-K MICRO, ALPHA PHEN, HEMOCHROM, CERULOP, TENA, IGG, SMAB #### [facility] , #### PARVEEN, TSH3 #### [facility] [address] [place] [address] USAHematocrit [Volume Fraction] of Blood by Automated count Ordered By: Lewis Mirza on 25-28-8096Ngjgmmgtke (Bld) [Volume fraction]41.7 % Oviyni28.8-50.0Sy[facility]ore Medical CenterComment on above:Performed By: #### MITOM2, L-K MICRO, ALPHA PHEN, HEMOCHROM, CERULOP, TENA, IGG, SMAB #### [facility] , #### PARVEEN, TSH3 #### [facility] [address] [place] [address] USAHemoglobin [Mass/volume] in BloodOrdered By: Lewis Mirza on 28-95-9303Rjqltbkbjm (Bld) [Mass/Vol]14.2 g/pRXirskg25.0-17.0 [facility] Medical CenterComment on above:Performed By: #### MITOM2, L-K MICRO, ALPHA PHEN, HEMOCHROM, CERULOP, TENA, IGG, SMAB #### [facility] , #### PARVEEN, TSH3 #### [facility] [address] [place] [address] USAKetones Auto test strip (U) [Mass/Vol]Ordered By: Lewis Mirza on 60-20-0260Mbmlvsy (U) [Mass/Vol]NegativeNegativeSycamore Medical CenterLaboratory - Serology - non-microOrdered By: Lewis Mirza on 37-37-5634DDI-70 extractable nuclear Ab IA Qn (S)<0.2 AI0.0-0.9[facility] Medical CenterLaboratory - UrinalysisOrdered By: Lewis Mirza on 30-01-5201Dloafnz casts LM Ql (Urine sed)None seen [LPF]0-8[facility] Medical CenterLeukocytes [#/volume] corrected for nucleated erythrocytes in Blood by Automated counOrdered By: Lewis Mirza on 17-20-1298SMR corrected for nucl RBC Auto (Bld) [#/Vol]6.4 10*3/uL4.1-10.5FMercy Health St. Anne Hospital Leukocytes [#/volume] in Blood by Automated countOrdered By: Lewis Mirza on 16-02-6788KKK (Bld) [#/Vol]6.4 10*3/uLNormal4.1-10.5FMercy Health St. Anne HospitalComment on above:Performed By: #### MITOM2, L-K MICRO, ALPHA PHEN, HEMOCHROM, CERULOP, TENA, IGG, SMAB #### [facility] , #### PARVEEN, TSH3 #### [place] [address] USALymphocytes [#/volume] in Blood by Automated countOrdered By: Lewis Mirza on 49-25-4472Iyxmbkqokve (Bld) [#/Vol]2.1 10*3/uLNormal 1.00-4.8[facility] Medical CenterComment on above:Performed By: #### MITOM2, L-K MICRO, ALPHA PHEN, HEMOCHROM, CERULOP, TENA, IGG, SMAB #### [facility] , #### PARVEEN, TSH3 #### [place] [address] USALymphocytes/100 leukocytes in Blood by Automated count Ordered By: Lewis Mirza on 87-74-9811Ptsbxzhrkwi/100 WBC (Bld)32.5 %Normal. [facility] Medical CenterComment on above:Performed By: #### MITOM2, L-K MICRO, ALPHA PHEN, HEMOCHROM, CERULOP, TENA, IGG, SMAB #### [facility] , #### PARVEEN, TSH3 #### [address] [Entitic mass] by Automated countOrdered By: Lewis Mirza on 02-11-5991IMO (RBC) [Entitic mass]29.3 rcIrwnwp40.5-35.2FMercy Health St. Anne HospitalComment on above:Performed By: #### MITOM2, L-K MICRO, ALPHA PHEN, HEMOCHROM, CERULOP, TENA, IGG, SMAB #### [facility] , #### PARVEEN, TSH3 #### [address] StreetHC Auto (RBC) [Mass/Vol]Ordered By: Lewis Mirza on 47-51-2036PBIS (RBC) [Mass/Vol]34.1 g/dL32.5-35.6FMercy Health St. Anne HospitalMCV [Entitic volume] by Automated countOrdered By: Lewis Mirza on 20-47-1367RUC (RBC) [Entitic vol]86.0 eQOzbbgi48.5-101Sy[facility]ore Medical CenterComment on above:Performed By: #### MITOM2, L-K MICRO, ALPHA PHEN, HEMOCHROM, CERULOP, TENA, IGG, SMAB #### [facility] , #### PARVEEN, TSH3 #### [facility] [address] [place] [address] USANeutrophils [#/volume] in Blood by Automated countOrdered By: Lewis Mirza on 93-04-9714Ceqyholzqhk (Bld) [#/Vol]3.4 10*3/uLNormal 1.8-7.7FMercy Health St. Anne HospitalComment on above:Performed By: #### MITOM2, L-K MICRO, ALPHA PHEN, HEMOCHROM, CERULOP, TENA, IGG, SMAB #### [facility] , #### PARVEEN, TSH3 #### [facility] [address] [place] [address] USANitrite Test strip Ql (U)Ordered By: Lewis Mirza on 30-40-5463Fopzsst Ql (U)NegativeNegativeSycamore Medical CenterNo Panel InformationOrdered By: Lewis Mirza on 40-77-5888Volvolldk GFR (CKD-EPI) > 60.0 mL/MinSycamore Medical CenterPharmacy Creatinine Clearance (ChemSumma Health Akron CampusRNP Antibody0.6 AI0.0-0.9Memorial Hospitalerology CommentsN/[facility] Total Complement (CH50)49 U/mL>41Sy[facility]ore Medical CenterComment on above:Age Male Female 1 - 30 days Not Estab. Not Estab. 31 days - 6 months >32 >20 7 months - 17 years >39 >39 >17 years >41 >41 NOTE: The adult ( >17 years ) reference intervalrange is used to flag abnormals on this report. If the patient is 17 years old or younger, use the table above to determine out of range values.Performed at: [address] [id number] Director: Zechariah Paula PhD, Phone: [phone] erythrocytes [Presence] in Blood by Automated countOrdered By: Lewis Mirza on 86-14-5344Lkxzmigei RBC Auto Ql (Bld)0.2 /100{WBC}0-0.5FMercy Health St. Anne HospitalPM-SCL Antibodieson 09-17-2289JVK PM-Scl Antibody<20Normal<20[facility] Physician GroupComment on above:Result Comment: This test was developed and its performance characteristics determined by [facility]. It has not been cleared or approved by the Food and Drug Administration. Negative: <20 Weak Positive: 20 - 39 Moderate Positive: 40 - 80 Strong Positive: >80 Performed at: [employer] [employer] [address] [place], [place] [id number] Registered Sales Assistant: Issa Thao MD, Phone: [phone] By: #### MITOM2, L-K MICRO, ALPHA PHEN, HEMOCHROM, CERULOP, TENA, IGG, SMAB #### [facility] , #### PARVEEN, TSH3 #### [place] [address] USAPM-Scl antibody assay by immunodiffusionOrdered By: Lewis Mirza on 54-86-4016YH-SCL extractable nuclear Ab Immune diff (S) [Mass/Vol] <20 Units<20Sy[facility]ore Medical CenterComment on above:This test was developed and its performance characteristicsdetermined by [employer]. It has not been cleared orapproved by the Food and Drug Administration. Negative: <20 Weak Positive: 20 - 39 Moderate Positive: 40 - 80 Strong Positive: >80Performed at: [facility] [place], [place] [id number] Director: Issa Thao MD, Phone: [phone] mean volume [Entitic volume] in Blood by Automated countOrdered By: Lewis Mirza on 05-19-2023 Platelet mean volume (Bld) [Entitic vol]9.2 fLNormal6.6-10.1FMercy Health St. Anne HospitalComment on above:Performed By: #### MITOM2, L-K MICRO, ALPHA PHEN, HEMOCHROM, CERULOP, TENA, IGG, SMAB #### [facility] , #### PARVEEN, TSH3 #### [facility] [address] [place] [address] USAPlatelets [#/volume] in Blood by Automated countOrdered By: Lewis Mirza on 84-73-5488Dghcxsrks (Bld) [#/Vol]254 10*3/cUNgupul622-339 [facility] Medical CenterComment on above:Performed By: #### MITOM2, L-K MICRO, ALPHA PHEN, HEMOCHROM, CERULOP, TENA, IGG, SMAB #### [facility] , #### PARVEEN, TSH3 #### [facility] [address] [place] [address] USAPotassium [Moles/volume] in Serum or PlasmaOrdered By: Lewis Mirza on 82-97-2219Hfevfxatx [Moles/Vol]3.8 mmol/LNormal3.5-5.1 [facility] Medical CenterComment on above:Performed By: #### MITOM2, L-K MICRO, ALPHA PHEN, HEMOCHROM, CERULOP, TENA, IGG, SMAB #### [facility] , #### PARVEEN, TSH3 #### [place] [address] USAProtein Auto test strip (U) [Mass/Vol]Ordered By: Lewis Mirza on 77-21-8579Zmrtxit (U) [Mass/Vol]NegativeNegativeSycamore Medical CenterProtein [Mass/volume] in Serum or PlasmaOrdered By: Lewis Mirza on 48-48-5512Ftivewn [Mass/Vol]7.1 g/dLNormal6.4-8.9[facility] Medical CenterComment on above:Performed By: #### MITOM2, L-K MICRO, ALPHA PHEN, HEMOCHROM, CERULOP, TENA, IGG, SMAB #### [facility] , #### PARVEEN, TSH3 #### [facility] [address] [place] [address] USARNA Polymerase IIion 70-83-9110XGB Polymerase IIi<20Normal <20[facility] Physician GroupComment on above:Result Comment: Negative: <20 Weak Positive: 20 - 39 Moderate Positive: 40 - 80 Strong Positive: >80 Performed at: [employer] [address] [place], [place] [id number] Registered Sales Assistant: sIsa Thao MD, Phone: [phone] PERFORMED BY: [place] [address] PATHOLOGIST LACTATION CONSULTANT LISA COOLEY M.D.Performed By: #### MITOM2, L-K MICRO, ALPHA PHEN, HEMOCHROM, CERULOP, TENA, IGG, SMAB #### [facility] , #### PARVEEN, TSH3 #### [place] [address] USARNA polymerase III IgG Ab [Units/volume] in Serum or Plasma by ImmunoassayOrdered By: Lewis Mirza on 07-07-7711TBE polymerase III IgG IA Qn<20 Units<20[facility] Medical CenterComment on above:Negative: <20 Weak Positive: 20 - 39 Moderate Positive: 40 - 80 Strong Positive: >80Performedat: [employer] [facility] [employer] [address] [place], [place] [id number] Director: Issa Thao MD, Phone: [phone] 70 Antibodieson 33-62-2533Jyvvdxocvez 70 Antibodies<0.7Tjpqci9.0-0.9[facility] Physician GroupComment on above:Performed By: #### MITOM2, L-K MICRO, ALPHA PHEN, HEMOCHROM, CERULOP, TENA, IGG, SMAB #### [facility] , #### PARVEEN, TSH3 #### [facility] [address] [place] [address] USASerum Newberry extractable nuclear antigen (ANDREE) antibody assay (units/volume)Ordered By: Lewis Mirza on 18-67-8347Ahsjx extractable nuclear Ab Qn (S)<0.2 AI0.0-0.9Memorial Hospitalerum centromere protein B antibody assay (units/volume)Ordered By: Lewis Mirza on 05-19-2023 Centromere protein B Ab Qn (S)<0.2 AI0.0-0.9[facility] Comment on above:Performed at: [address] [id number] Director: Zechariah Paula PhD, Phone: [phone] globulin measurement by calculation (mass/volume)Ordered By: Lewis Mirza on 05-19-2023 Globulin (S) [Mass/Vol]2.7 g/dLNormalSycamore Medical CenterComment on above:Performed By: #### MITOM2, L-K MICRO, ALPHA PHEN, HEMOCHROM, CERULOP, TENA, IGG, SMAB #### [facility] , #### PARVEEN, TSH3 #### [facility] [address] [place] [address] USASerum or plasma albumin/globulin mass ratioOrdered By: Lewis Mirza on 19-86-0091Hkddnbv/Globulin [Mass ratio]1.6 {ratio}Normal [facility] Medical CenterComment on above:Performed By: #### MITOM2, L-K MICRO, ALPHA PHEN, HEMOCHROM, CERULOP, TENA, IGG, SMAB #### [facility] , #### PARVEEN, TSH3 #### [facility] [address] [place] [address] USASerum or plasma anion gap determinationOrdered By: Lewis Mirza on 30-75-6605Dxaid gap [Moles/Vol]14.3 mmol/LNormal6.0-15.0[facility] Medical CenterComment on above:Performed By: #### MITOM2, L-K MICRO, ALPHA PHEN, HEMOCHROM, CERULOP, TENA, IGG, SMAB #### [facility] , #### PARVEEN, TSH3 #### [facility] [address] [place] [address] USASerum or plasma complement C3 measurement (mass/volume) Ordered By: Lewis Mirza on 81-71-2267Ddrnjvkqel C3 [Mass/Vol]161 mg/kP50-724 [facility] Medical CenterComment on above:Performed at: [facility] [place] [id number] Director: Zechariah Paula PhD, Phone: [phone] or plasma complement C4 measurement (mass/volume)Ordered By: Lewis Mirza on 16-78-4062Wlwzwvnwhy C4 [Mass/Vol]24 mg/vW42-52UofaihflkMemorial Hospitalodium [Moles/volume] in Serum or PlasmaOrdered By: Lewis Mirza on 54-92-5202Jvcwxt [Moles/Vol]141 mmol/HJvytca165-999KdmueanmtSycamore Medical CenterComment on above:Performed By: #### MITOM2, L-K MICRO, ALPHA PHEN, HEMOCHROM, CERULOP, TENA, IGG, SMAB #### [facility] , #### PARVEEN, TSH3 #### [place] [address] USASpecific gravity Auto test strip (U) [Rel density]Ordered By: Lewis Mirza on 75-03-9327Lyjoszgh gravity (U) [Rel density]1.023 1.001-1.030Memorial Hospitalquamous epithelial cells detection in urine sediment by light microscopyOrdered By: Lewis Mirza on 05-19-2023 Epithelial cells.squamous LM Ql (Urine sed)None seen [HPF]0-2FMercy Health St. Anne HospitalTh-To Ab [Units/volume] in Serum by Line blotOrdered By: Lewis Mirza on 21-49-5325Qi-To Ab Line blot Qn (S)NegativeNegativeSycamore Medical CenterComment on above:This test was developed and its performance characteristicsdetermined by [facility]. It has not been cleared orapproved by the Food and Drug Administration.Performed at: [facility] [employer] [address] [place], [place] [id number] Director: Issa Thao MD, Phone: [phone]/To Antibodyon 47-38-8233Nn/To AntibodyNegativeNormalNegativeHca Florida Ucf [facility] Hospital Physician GroupComment on above:Result Comment: This test was developed and its performance characteristics determined by [facility]. It has not been cleared or approved by the Food and Drug Administration. Performed at: [facility] [employer] [address] [place], [place] [id number] Registered Sales Assistant: Issa Thao MD, Phone: [phone] By: #### MITOM2, L-K MICRO, ALPHA PHEN, HEMOCHROM, CERULOP, TENA, IGG, SMAB #### [facility] , #### PARVEEN, TSH3 #### [facility] [address] [place] [address] USAThyrotropin [Units/volume] in Serum or PlasmaOrdered By: Lewis Mirza on 99-52-8723CPB Qn1.01 m[IU]/LNormal0.45-5.33[facility] Medical CenterComment on above:Result Comment: PERFORMED BY: [place] [address] PATHOLOGIST LACTATION CONSULTANT LISA COOLEY M.D.Performed By: #### MITOM2, L-K MICRO, ALPHA PHEN, HEMOCHROM, CERULOP, TENA, IGG, SMAB #### [facility] , #### PARVEEN, TSH3 #### [facility] [address] [place] [address] USAU3 Rnpon 54-73-7347F9 RnpNegativeNormalNegativeHca Florida [facility]cf [facility] Physician GroupComment on above:Result Comment: This test was developed and its performance characteristics determined by [facility]. It has not been cleared or approved by the Food and Drug Administration. Performed at: [employer] [facility] [employer] [address] [place] [id number] Registered Sales Assistant: Issa Thao MD, Phone: [phone] PERFORMED BY: [place] [address] PATHOLOGIST LACTATION CONSULTANT LISA COOLEY M.D.Performed By: #### MITOM2, L-K MICRO, ALPHA PHEN, HEMOCHROM, CERULOP, TENA, IGG, SMAB #### [facility] , #### PARVEEN, TSH3 #### [place] [address] USAUrea nitrogen [Mass/volume] in Serum or PlasmaOrdered By: Lewis Mirza on 63-94-1556Gytr nitrogen [Mass/Vol]10 mg/dLNoatrium health pineville12-02Sy[facility] Medical CenterComment on above:Performed By: #### MITOM2, L-K MICRO, ALPHA PHEN, HEMOCHROM, CERULOP, TENA, IGG, SMAB #### [facility] , #### PARVEEN, TSH3 #### [facility] [address] [place] [address] USAUrine bacteria detection by automated methodOrdered By: Lewis Mirza on 76-38-4864Ezmrousr Auto Ql (U)None seenNone SeenSycamore Medical CenterUrine clarity by refractometry automatedOrdered By: Lewis Mirza on 26-93-7568Iydpydr Refractometry automated (U)ClearClear [facility] Medical CenterUrine glucose measurement by automated test strip (mass/volume)Ordered By: Lewis Mirza on 07-02-9386Qvwpxmq Auto test strip (U) [Mass/Vol]Normal mg/dLNoHighland District HospitalUrine hemoglobin detection by automated test stripOrdered By: Lewis Mirza on 36-48-5310Bfgczdwzip Auto test strip Ql (U)NegativeNegPremier Health Upper Valley Medical CenterUrine leukocyte esterase detection by automated test stripOrdered By: Lewis Mirza on 53-83-0975Rugzrdjjk esterase Auto test strip Ql (U) NegativeNegPremier Health Upper Valley Medical CenterUrine pH measurement by automated test stripOrdered By: Lewis Mirza on 76-35-7085wC (U)5.5 [pH]Normal 5.0-9.0[facility] Medical CenterComment on above:Order Comment: Reason for Exam Elevated LFTs Reason for Exam FatiguePerformed By: #### MITOM2, L-K MICRO, ALPHA PHEN, HEMOCHROM, CERULOP, TENA, IGG, SMAB #### [facility] , #### PARVEEN, TSH3 #### [facility] [address] [place] [address] USAUrobilinogen Auto test strip (U) [Mass/Vol]Ordered By: Lewis Mirza on 81-60-9706Vxlflqbuqfrk (U) [Mass/Vol]Normal mg/dLNormal [facility] CenterXR knee BI 2Von 09-13-9673IO knee BI 2V [facility] [employer] [address] [place] [address] XRay Report Signed Patient: Jet Duncan MR#: [id number] 0 : 2005 Acct:[id number] Age/Sex: 17 / M ADM Date: 05/19/23 Loc: ICXD Room: Type: [facility] Attending Dr: Lewis Mirza MD Copies to: Lewis Mirza MD Ordering Provider: Lewis Mirza MD Date of Service: 05/19/23 XR/XR knee BI 2V: PAIN ([id number]) XR/XR thoracic spine 3V*: PAIN THORACIC SPINE [...] Davila Jr., D.OAlexander05/19/2023 2:25 PM Dictation Location: [place] [address] Transcribed By: [facility] 05/19/231424 Dictated By: Ki Davila Jr, DO 05/19/231423 Signed By: 05/19/23 JustinSt[facility] Physician GroupMiscellaneouson 04-30-2023 [id number]#1.00OTGTIFFSelect Medical Specialty Hospital - Southeast OhioOutside Recordson 58-71-2973Kudpewo Records [id number]#1.00OTGTSelect Medical Specialty Hospital - Southeast [place] Antinuclear Antibodieson 01-07-8221Uqactpvdxzu Abs, IFAPositiveCritically abnormal.[facility] Physician GroupComment on above:Order Comment: Reason for Exam Elevated LFTsResult Comment: Negative <1:80 Borderline 1:80 Positive >1:80Performed By: #### MITOM2, L-K MICRO, ALPHA PHEN, HEMOCHROM, CERULOP, TENA, IGG, SMAB #### [facility] , #### PARVEEN, TSH3 #### [facility] [address] [place] [id number] USAHomogeneous Pattern1:160High.[facility] Comment on above:Order Comment: Reason for Exam Elevated LFTsResult Comment: ICAP nomenclature: AC-1Performed By: #### MITOM2, L-K MICRO, ALPHA PHEN, HEMOCHROM, CERULOP, TENA, IGG, SMAB #### [facility] , #### PARVEEN, TSH3 #### [facility] [address] [place] [address] USANote 1Normal.[facility] Physician GroupComment on above:Order Comment: Reason for Exam Elevated LFTsResult Comment: Pattern Potential Disease Association Homogeneous Systemic Lupus Erythematosus, Drug Induced Systemic Lupus Erythematosus, Chronic Autoimmune hepatitis, Juvenile Idiopathic Arthritis Speckled Sjogren Syndrome, Systemic Lupus Erythematosus, Subacute Cutaneous Lupus, Lupus, Congenital Heart Block, Mixed Connective Tissue Disease, Scleroderma-diffuse, Scleroderma-Autoimmune Myositis Overlap Syndrome, Systemic Lupus Wztrlhtdqnalv-Dgcbqdqvdfv-Hihbnyzoaa Myositis Overlap Syndrome, Systemic Autoimmune Rheumatic Disease, [...] Scleroderma, Antiphospholipid Syndrome Performed at: - [facility] [address] [id number] Registered Sales Assistant: Zechariah Paula PhD, Phone: [phone] By: #### MITOM2, L-K MICRO, ALPHA PHEN, HEMOCHROM, CERULOP, TENA, IGG, SMAB #### [facility] , #### PARVEEN, TSH3 #### [facility] [address] [place] [id number] USAActin smooth muscle IgG Ab [Units/volume] in SerumOrdered By: Imad Asaad on 25-32-2170Nbstu smooth muscle IgG Qn (S)13 Units0-19[facility] Medical CenterComment on above:Negative 0 - 19 Weak positive 20 - 30 Moderate to strong positive >30 Actin Antibodies are foundin 52-85% of patients with autoimmune hepatitis or chronic active hepatitis and in 22% of patients w ith primary biliary cirrhosis.Hxovb-2-Towezxuzzsz Phenotypeon 48-72-4010Bxzug 1 Anti-Aluriad950 mg/wCMalzgc37-345Puf [facility] Physician GroupComment on above: Order Comment: Reason for Exam Elevated LFTsPerformed By: #### MITOM2, L-K MICRO, ALPHA PHEN, HEMOCHROM, CERULOP, TENA, IGG, SMAB #### [facility] , #### PARVEEN, TSH3 #### [facility] [address] [place] [id number] USAPhenotype (P1)MMNormal.[facility] Comment on above:Order Comment: Reason for Exam Elevated LFTsResult Comment: Phenotype Population A-1-AT Concentration* Incidence % % [...] used to confirm phenotype. Performed at: - [facility] [address] [place], [place] [id number] Registered Sales Assistant: Zechariah Paula PhD, Phone: [phone] Performed at: - [address] [id number] Registered Sales Assistant: Aston Omalley MD, Phone: [phone] By: #### MITOM2, L- K MICRO, ALPHA PHEN, HEMOCHROM, CERULOP, TENA, IGG, SMAB #### [facility] , #### PARVEEN, TSH3 #### [facility] [address] [place] [address] USABlood or tissue HFE gene mutations identification by molecular genetics methodOrdered By: Wilver Felton on 91-65-9828MNV gene targeted mutation analysis Molgen Nom (Bld/Tiss)See comment.[facility]camore Medical CenterComment on above:Result:c.845G>A (p.Gfw963Sez) - Not Detectedc.187C>G (p.Uba22Gaj) - Not Detectedc.193A>T (p.Iwf22Kpb) - Not DetectedNot associated with increased risk to develop clinicalsymptoms of Hereditary Hemochromatosis. In symptomaticindividuals, other causes of iron overload should beevaluated. See Additional Information and Comments.Additional Clinical Information:Hereditary hemochromatosis (HFErelated) is an autosomalrecessive iron storage disorder. Patients [...] recommended for patientswho are homozygous for c.845G>A (p.Glb133Ufr) and have yetto experience clinical symptoms.Comments:The most common HFE variants associated with hereditaryhemochromatosis are c.845G>A (p.Qfp445Mna), c.187C>G(p.Ouh07Tdd), c.193A>T (p.Sbx46Qpn). While patientshomozygous for c.845G>A (p.Gpd432Dfe) are the most likelyto present clinical symptoms, less than 10% developclinically significant iron overload with tissue and organdamage.Genetic counseling is recommended to discuss the potentialclinical implications of positive results, as well asrecommendations for testing family members.Genetic Coordinators are available for health careproviders to discuss results at [phone] Details:Three variants analyzed:c.845G>A (p.Pqf912Prj), commonly referred to as C282Yc.187C>G (p.Ati70Bqc), commonly referred to as H63Dc.193A>T (p.Qhf14Aus), commonly referred to ptL02MNfnjmzn/Limitations:DNA Analysis of the HFE gene (NM_000410.4) was [...] was developed and its performancecharacteristics determined by [employer]. It has not beencleared or approved by the Food and Drug Administration.References:Paul BR, Joseph PC, Mohini KV, Christiano LW, Erick ;[employer] Association for the Study of Liver Diseases.Diagnosis and management of hemochromatosis: 2011 practiceguideline by the [employer] Association for the Study ofLiver Diseases. Hepatology. 2010;54(1):328-43. doi:10.1002/hep.07581. PMID: 29835403; PMCID: [id number].Surekha G, Shorty P, Hailey DW, Tor H, Corrine O,Simón S, Guerrero I, Alireza Bradford, Holly Sherwood. [facility] best practiceguidelines for the molecular genetic diagnosis ofhereditary hemochromatosis (HH). Eur J Hum Meliza. 2016Ap r;24(4):479-88. doi: 10.1038/ejhg.2015.128. Epub 2014. PMID: 27596605; PMCID: [id number].Ceruloplasminon 46-41-4121Rpozmmsyiecmz19.7 mg/dLNormal 16.0-31.0[facility] Physician GroupComment on above:Order Comment: Reason for Exam Elevated LFTsResult Comment: Performed at: [facility] [address] [id number] Registered Sales Assistant: Zechariah Paula PhD, Phone: [phone] PERFORMED BY: [place] [address] PATHOLOGIST LACTATION CONSULTANT LISA COOLEY M.D.Performed By: #### MITOM2, L-K MICRO, ALPHA PHEN, HEMOCHROM, CERULOP, TENA, IGG, SMAB #### [facility] , #### PARVEEN, TSH3 #### [facility] [address] [place] [address] USAFerritin [Mass/volume] in Serum or PlasmaOrdered By: Wilver Felton on 40-79-6432Qrxkmjwl [Mass/Vol]59.0 ng/bOWqmfgl59.9-336.2FMercy Health St. Anne HospitalComment on above:Order Comment: Reason for Exam Elevated LFTs Reason for Exam FatiguePerformed By: #### MITOM2, L-K MICRO, ALPHA PHEN, HEMOCHROM, CERULOP, TENA, IGG, SMAB #### [facility] , #### PARVEEN, TSH3 #### [facility] [address] [place] [address] USAHereditary Hemochromatosis,DNAon 05-73-8291Jdqbmuleqi HemochromatosisNormal.[facility] Physician GroupComment on above:Order Comment: Reason for Exam Elevated LFTsResult Comment: Result: c.845G>A (p.Hxb741Lyo) - Not Detected c.187C>G (p.Via77Iai) - Not Detected c.193A>T (p.Xle34Exb) - Not Detected Not associated with increased [...] for patients who are homozygous for c.845G>A (p.Iun208Tpy) and have yet to experience clinical symptoms. Comments: The most common HFE variants associated with hereditary hemochromatosis are c.845G>A (p.Pur464Rty), c.187C>G (p.Cvq57Bnx), c.193A>T (p.Ixz19Xva). While patients homozygous for c.845G>A (p.Hwv407Reo) are the most likely to present clinical symptoms, less than 10% develop clinically significant iron overload with tissue and organ damage. Genetic counseling is recommended to discuss the potential clinical implications of positive results, as well as recommendations for testing family members. Genetic Coordinators are available for health care providers to discuss results at [phone] Test Details: Three variants analyzed: c.845G>A (p.Jvx374Gtt), commonly referred to as C282Y c.187C>G (p.Ved57Bnm), commonly referred to as H63D c.193A>T (p.Fff59Kov), commonly referred to as S65C Methods/Limitations: DNA [...] developed and its performance characteristics determined by [facility]. It has not been cleared or approved by the Food and Drug Administration. References: Paul BR, Joseph PC, Mohini KV, Christiano LW, Erick ; [employer] Association for the Study of Liver Diseases. Diagnosis and management of hemochromatosis: 2011 practice guideline by the [employer] Association for the Study of Liver Diseases. Hepatology. 2010;54(1):328-43. doi: 10.1002/hep.11316. PMID: 30111975; PMCID: [id number]. Surekha G, Shorty P, Hailey DW, Tor H, Corrine O, Simón S, Guerrero I, Alireza M, Holly S. [facility] best practice guidelines for the molecular genetic diagnosis of hereditary hemochromatosis (HH). Eur J Hum Meliza. 2016 Aug;24(4):479-95. doi: 10.1038/ejhg.2015.128. Epub 2014Nov 15. PMID: 91514865; PMCID: [id number].Performed By: #### MITOM2, L-K MICRO, ALPHA PHEN, HEMOCHROM, CERULOP, TENA, IGG, SMAB #### [facility] , #### PARVEEN, TSH3 #### [facility] [address] [place] [address] USAReviewed by:Normal.[facility] Physician GroupComment on above:Order Comment: Reason for Exam Elevated LFTsResult Comment: Technical Component performed at [facility] RT Professional Component performed by: Daniella Birch, Ph.D., [facility]MG Director, Molecular Genetics [address] [place] [address] [facility] [address] Performed at: [facility] RT [address] [place], [place] [id number] Registered Sales Assistant: Dinesh Davis [facility], Phone: [phone] PERFORMED BY: [place] [address] PATHOLOGIST LACTATION CONSULTANT LISA COOLEY M.D.Performed By: #### MITOM2, L-K MICRO, ALPHA PHEN, HEMOCHROM, CERULOP, TENA, IGG, SMAB #### [facility] , #### PARVEEN, TSH3 #### [facility] [address] [place] [address] USAIgG [Mass/volume] in Serum or PlasmaOrdered By: Imad Asaad on 92-54-6899IjU [Mass/Vol]1272 mg/mF775-7333TgokgmsffSycamore Medical Center Comment on above:Performed at: [facility]Song[facility] [id number] Director: Zechariah Paula PhD, Phone: [phone] G on 07-59-2422Khrggdrgqybftb G1272 mg/rDRgtzpj978-1809Sig [facility] Physician GroupComment on above:Order Comment: Reason for Exam Elevated LFTsResult Comment: Performed at: [facility] [id number] Registered Sales Assistant: Zechariah Paula PhD, Phone: [phone] By: #### MITOM2, L-K MICRO, ALPHA PHEN, HEMOCHROM, CERULOP, TENA, IGG, SMAB #### [facility] , #### PARVEEN, TSH3 #### [facility] [address] [place] [address] USALiver-Kidney Microsomal Abon 58-88-3385Gwcro-Kidney Microsomal Ab1.7Toiszj2.0-20.0[facility] Physician GroupComment on above: Order Comment: Reason for Exam Elevated LFTsResult Comment: Negative 0.0 - 20.0 Equivocal 20.1 - 24.9 Positive >24.9 LKM type 1 antibodies are detected in patients with autoimmune hepatitis type 2 and in up to 8% of patients with chronic HCV infection. Performed at: - [facility] [id number] Registered Sales Assistant: Zechariah Paula PhD, Phone: [phone] By: #### MITOM2, L-K MICRO, ALPHA PHEN, HEMOCHROM, CERULOP, TENA, IGG, SMAB #### [facility] , #### PARVEEN, TSH3 #### [facility] [address] [id number] USAMitochondrial (M2) Antibodyon 25-36-2358Mcixhjyvozwlw (M2) Antibody<20.9Pqciyk6.0-20.0[facility] Physician GroupComment on above:Order Comment: Reason for Exam Elevated LFTsResult Comment: Negative 0.0 - 20.0 Equivocal 20.1 - 24.9 Positive >24.9 Mitochondrial (M2) Antibodies are found in 90-96% of patients with primary biliary cirrhosis.Performed By: #### MITOM2, L-K MICRO, ALPHA PHEN, HEMOCHROM, CERULOP, TENA, IGG, SMAB #### [facility] , #### PARVEEN, TSH3 #### [facility] [address] [place] [address] USANo Panel InformationOrdered By: Wilver Felton on 04-21-2023 Anti-Nuclear Antibody Comment 2See comment.[facility] Comment on above:Pattern Potential Disease Association Homogeneous Systemic Lupus Erythematosus, Drug Induced Systemic Lupus Erythematosus, Chronic Autoimmune hepatitis, Juvenile Idiopathic Arthritis Speckled Sjogren Syndrome, Systemic Lupus Erythematosus, Subacute Cutaneous Lupus, Lupus, Congenital Heart Block, Mixed Connective Tissue Disease, Scleroderma-diffuse, Scleroderma- Autoimmune Myositis Overlap Syndrome, Systemic Lupus Btjusscrgegdv-Slnaojcqrge-Ndrllddgqj Myositis Overlap Syndrome, Systemic Autoimmune Rheumatic Disease, Undifferentiated Connective Tissue Disease Nucleolar Systemic Sclerosis, Scleroderma-Autoimmune Myositis Overlap Syndrome, Sjogren Syndrome, Raynaud phenomenon, Pulmonary Arterial Hypertension, Systemic Autoimmune Rheumatic Disease, Cancer Centromere Scleroderma-CREST, Limited Cutaneous SSc, Raynaud's Phenomenon, Primary Biliary Cholangit is Nuclear Dot Primary Biliary Cholangitis Nuclear Primary Biliary Cholangitis, AutoimmuneMembrane Hepatitis/Liver disease, Systemic Autoimmune Rheumatic Disease, Autoimmune Cytopenias, Linear Scleroderma, Antiphospholipid Syndrome Performed at: [facility] [employer] [id number] Director: Zechariah Paula PhD, Phone: [phone] NoteSee comment.[facility]ore Medical CenterComment on above:Technical Component performed at [facility] RTPProfessional Component performed by:Daniella Birch, Ph.D., FACMGDirector, Molecular Jjvkpwkj1007 [facility] [place] [address]Ftrhvogam at: [facility] [id number] [facility], [facility], [place] [id number] Director: Dinesh Davis [facility], Phone: [phone] thnju-2-qtimjuffzrb measurementOrdered By: Imad Asaad on 79-93-4808Xhxfq 1 antitrypsin [Mass/Vol]139 mg/gT59-523QlpkdiiukMemorial Hospitalerum homogeneous pattern antinuclear antibody (TENA) titerOrdered By: Imad Asaad on 55-99-1533Gcndjdpiti nuclear Ab pattern (S) [Titer]1:160. [facility] Medical CenterComment on above:ICAP nomenclature: AC-1Serum mitochondria M2 IgG antibody assay (units/volume)Ordered By: [facility] on 36-86-5137Uimpczsqccza M2 IgG Qn (S)<20.0 Units0.0-20.0Sy[facility]ore Medical CenterComment on above:Negative 0.0 - 20.0 Equivocal 20.1 - 24.9 Positive >24.9Mitochondrial (M2) Antibodies are found in 90-96% ofpatients with primary biliary cirrhosis.Serum nuclear antibody titerOrdered By: [facility] on 74-78-1310Odvmfqs Ab (S) [Titer]Positive.[facility] Comment on above:Negative <1:80 Borderline 1:80 Positive >1:80Serum or plasma alpha 1 antitrypsin phenotyping identification by immunofixationOrdered By: [facility] on 98-94-5639Sbivf 1 antitrypsin phenotyping Immunofixation NomMm. [facility] Medical CenterComment on above:Phenotype Population A-1-AT Concentration* Incidence % % of [...] reference. Ranges used to confirm phenotype.Performed at: [facility] [employer] [id number] Director: Zechariah Paula PhD, Phone: [phone] at: [id number] Director: Aston Omalley MD, Phone: [phone] or plasma ceruloplasmin measurement (mass/volume)Ordered By: ariana Felton on 96-68-1901Twgiermgtkgkz [Mass/Vol]23.7 mg/dL16.0-31.0Sy[facility] Medical CenterComment on above:Performed at: [facility] SystemsJohn D. [facility] [place] [id number] Director: Zechariah Paula PhD, Phone: [phone] or plasma lipoprotein a measurement (moles/volume)Ordered By: Wilver Felton on 53-12-9198Ffoshrytjqd a [Moles/Vol]1.5 Units0.0-20.0Sy[facility]ore Medical CenterComment on above:Negative 0.0 - 20.0 Equivocal 20.1 - 24.9 Positive >24.9LKM type 1 antibodies are detected in patients withautoimmune hepatitis type 2 and in up to 8% ofpatients with chronic HCV infection.Performed at: [facility] [place] [id number] Director: Zechariah Paula PhD,Phone: [phone] Muscle Antibodyon 00-85-4048Lgpcmt Muscle Alteunxx56Uhzigq9-92Jww [facility] Physician GroupComment on above:Order Comment: Reason for Exam Elevated LFTsResult Comment: Negative 0 - 19 Weak positive 20 - 30 Moderate to strong positive >30 Actin Antibodies are found in 52-85% of patients with autoimmune hepatitis or chronic active hepatitis and in 22% of patients with primary biliary cirrhosis.Performed By: #### MITOM2, L-K MICRO, ALPHA PHEN, HEMOCHROM, CERULOP, TENA, IGG, SMAB #### [facility] , #### PARVEEN, TSH3 #### [facility] [address] [address] USAThyrotropin [Units/volume] in Serum or PlasmaOrdered By: Imariana Felton on 03-96-8372NAX Qn1.24 m[IU]/LNormal0.45-5.33Sy[facility] Medical CenterComment on above:Order Comment: Reason for Exam Elevated LFTs Reason for Exam FatigueResult Comment: PERFORMED BY: [facility] [address] [place] [address] PATHOLOGIST LACTATION CONSULTANT LISA COOLEY M.D.Performed By: #### MITOM2, L-K MICRO, ALPHA PHEN, HEMOCHROM, CERULOP, TENA, IGG, SMAB #### [facility] , #### PARVEEN, TSH3 #### [facility] [address] [address] USAMiscellaneouson 12-16-5147Jdneojwrtkhuj [id number]#1.00[facility] [id number]#1.00[facility] HospitalOutside Recordson 19-91-3885Kwsdzyz Records [id number]#1.00[facility] Alanine aminotransferase [Enzymatic activity/volume] in Serum or PlasmaOrdered By: Imad Asaad on 79-38-2673ZAN [Catalytic activity/Vol]48 U/L7-52[facility] Medical CenterAlbumin [Mass/volume] in Serum or Plasma by Bromocresol green (BCG) dye binding methoOrdered By: Imad Asaad on 78-30-5626Folrvcb BCG dye [Mass/Vol]4.3 g/dL3.5-5.7FMercy Health St. Anne HospitalAlkaline phosphatase [Enzymatic activity/volume] in Serum or PlasmaOrdered By: Imad Asaad on 37-72-8556QMN [Catalytic activity/Vol]60 U/U05-236WisbjrghvSycamore Medical CenterAspartate aminotransferase [Enzymatic activity/volume] in Serum or Plasma Ordered By: Imad Asaad on 42-63-7546MUY [Catalytic activity/Vol]27 U/L13-39 [facility] Medical CenterBilirubin.direct [Mass/volume] in Serum or PlasmaOrdered By: Imad Asaad on 29-54-4862Hkvowgthg.direct [Mass/Vol]0.10 mg/dL 0.03-0.18FMercy Health St. Anne HospitalBilirubin.total [Mass/volume] in Serum or PlasmaOrdered By: Imad Asaad on 56-76-6387Rfncemofg [Mass/Vol]0.8 mg/dL 0.3-1.0[facility] Medical CenterGlobulin Calc (S) [Mass/Vol]Ordered By: Imad Asaad on 72-67-0789Oulzoblx (S) [Mass/Vol]2.8 g/dLSycamore Medical CenterHeten broeck hospitaltis B virus surface Ab [Units/volume] in SerumOrdered By: Imad Asaad 29-05-4931JYM surface Ab Qn (S)>1000.0 mIU/mLImmunity>9.9[facility] Medical CenterComment on above:Status of Immunity Anti-HBs Level Inconsistent with Immunity 0.0 -9.9Consistent with Immunity >9.9Hepatitis B virus surface Ag [Presence] in Serum or Plasma by ImmunoassayOrdered By: Imariana Felton on 14-96-8642QHP surface Ag IA QlNegative NegativeSycamore Medical CenterHepatitis C virus IgG Ab [Presence] in Serum or Plasma by ImmunoassayOrdered By: Imad Asaad 66-36-5667ZPY IgG IA Ql Non-ReactiveNon ReactiveSycamore Medical CenterNo Panel Information Ordered By: Imad Manuelad on 41-00-5249Cpabpvgiq A IgM AntibodyNegativeNegative [facility] Medical CenterHeten broeck hospitaltis B Core IgM AntibodyNegativeNegative [facility] Medical CenterComment on above:Performed at: [facility] [place], [place] [id number] Director: Zechariah Paula PhD, Phone: [phone] B Core Total AntibodyNegativeNegativeSycamore Medical CenterHepatitis B DNA Test InformationSee comment.[facility] Medical CenterComment on above:The reportable range for this assay is 10 IU/mL to 1billion IU/mL.Performed at: - Lab[address] [id number] Director: Aston Omalley MD, Phone: [phone] Hepatitis C InterpretationSee comment.[facility] Medical CenterComment on above:Not infected with HCV unless early or acute infection issuspected (which may be delayed in an immunocompromisedindividual), or other evidence exists to indicate HCVinfection.Protein [Mass/volume] in Serum or PlasmaOrdered By: Wilver Felton on 87-37-5847Kwdoegw [Mass/Vol]7.1 g/dL6.4-8.9Memorial Hospitalerum hepatitis B virus surface antibody detectionOrdered By: Wilver Felton on 24-93-2514ATH surface Ab Ql (S)Reactive.[facility] Medical CenterComment on above:Non Reactive: Inconsistent with immunity, less than 10 mIU/mL Reactive: Consistent with immunity, greater than 9.9 mIU/mLSerum or plasma albumin/globulin mass ratioOrdered By: Wilver Felton on 03-19-2023 Albumin/Globulin [Mass ratio]1.5 {ratio}Memorial Hospitalerum or plasma hepatitis B virus DNA measurement (units/volume) (viral load) by prob Ordered By: Wilver Felton on 55-56-8322IGX DNA GITA+probe QnNot detected.Memorial Hospitalerum or plasma hepatitis B virus DNA viral load by probe and target amplification meOrdered By: Wilver Felton on 11-85-7074DHK DNA GITA+probe [Log units/Vol]See comment.[facility] Medical CenterComment on above: Result Units: log10 IU/mLUnable to calculate result since non-numeric resultobtained for component test.Serum or plasma non-glucuronidated bilirubin measurement (mass/volume)Ordered By: Wilver Felton on 71-08-1648Yjhubhgyh.indirect [Mass/Vol]0.7 mg/dLSycamore Medical CenterOutside Recordson 03-03-2023 Outside [id number]#1.00[facility] HospitalOutside Recordson 48-74-9158Zyvjfva Records [id number]#1.00[facility] Coding Summaryon 20-42-2146Uphpnx SummaryHTMLBase 64 PsmxmqhdOSs0aSw+PGhlYWQ+WM7FDABhE92zjZCghE0sE1DYWHdDTijpJCSSEZrDRpAfjhOpNP4jfWMq ZXJu [file] IGN (more content not included)...[facility] MiamisburgReminder Messageson 71-77-6142Bznrdyom Messages From: BALJIT PISANO DO To: [facility] Clinical Pool (MAGR_[place]); Sent: 02/12/2023 15:32:57 EDT ! Show up: [...] % (14 - 48) 02/12/2023 13:38 Auto [place] % 12 % (1 - 12) 02/12/2023 13:38 Auto Eos % 2.0 % (0.9 - 4.0) 02/12/2023 13:38 Auto Baso % 0.8 % (0.2 - 2.0) 02/12/2023 13:38 Neut Abs# 3.4 x103/mcL (1.5 - 9.2) 02/12/2023 13:38 Lymph Abs# 1.7 x103/mcL (1.3 - 2.9) 02/12/2023 13:38 [place] Abs# 0.7 x103/mcL (0.0 - 0.8) 02/12/2023 13:38 Eos Abs# 0.1 x103/mcL (0.0 - 0.4) 02/12/2023 13:38 Baso Abs# 0.0 x103/mcL (0.0 - 0.2) attempted to contact patient, unable to LM, multiple rings, no VM Patient returned tamra and was notified of results.[facility].Auto Diff 1on 24-31-9483Axnh [place] %12 %Normal-Genesis HospitalComment on above: Performed By: #### [id number], 6775716, [id number] ####[facility] (DEFAULT)[address] [place] [address]Mfso Abs#0.0 d27Tvsfyb9.0-0.2 Cherry HospitalComment on above:Performed By: #### [id number], 2401886, [id number] ####[facility] (DEFAULT)[address] [place] [address]Vcejghpkj/100 WBC (Bld)0.8 %Normal0.2-2.0Magruder HospitalComment on above: Performed By: #### 03873564, 4838437, [id number] ####[facility] (DEFAULT)[address] [place] [address] 46831Nqg Abs#0.1 s40Cenlck6.0-0.4 Cherry HospitalComment on above:Performed By: #### 05634694, 2664413, [id number] ####[facility] (DEFAULT)[address] [place] [address] 479[address]Ckpustqarxd/100 WBC (Bld)2.0 %Normal0.9-4.0Magruder HospitalComment on above:Performed By: #### [id number], 9403481, [id number] ####[facility] (DEFAULT)[address] [place] [address] 94661Ykhrt Abs#1.7 c89Zggwts5.3-2.9 [facility] HospitalComment on above:Performed By: #### 66892272, 6577694, [id number] ####[facility] (DEFAULT)[address] [place] [address]Encdbsfgoso/100 WBC (Bld)28 %Bhunaq49-72Dkmvepqt HospitalComment on above: Performed By: #### 29238561, 0518276, [id number] ####[facility] (DEFAULT)[address] [place] [address]Mgbo Abs#0.7 w89Ggsbck4.0-0.8 Cherry HospitalComment on above:Performed By: #### 63065455, 4236338, [id number] ####[facility] (DEFAULT)[address] [place] [address] 30137Fmny Abs#3.4 v81Ugtgug6.5-9.2Mmetrohealth main campus medical center HospitalComment on above:Performed By: #### 94975330, 8887872, [id number] ####[facility] (DEFAULT)[address] [place] [address] 39436Pevuwwxxzlw/100 WBC (Bld)57 %Umllvq59-98Zbywtmqk HospitalComment on above:Performed By: #### 84322849, 9296085, [id number] ####[facility] (DEFAULT)[address] [place] [address]TAF w/ Auto Diffon 18-80-2727Pjdojkrhzbx distribution width (RBC) [Ratio]12.9 %Normal 11.5-15.0Genesis HospitalComment on above:Performed By: #### [id number], 2272751, [id number] #### [facility] (DEFAULT) [address] [place] [address]Xjyydpbfaf (Bld) [Volume fraction]42.2 %Wbpiuh00.8-51.9 Genesis HospitalComment on above:Performed By: #### 22315059, 2230980, [id number] #### [facility] (DEFAULT) [address] [place] [address] 78986Yhpdlncild (Bld) [Mass/Vol]14.7 g/mBEqundx84.8-17.7 Genesis HospitalComment on above:Performed By: #### 22575983, 5323553, [id number] #### [facility] (DEFAULT) [address] [place] [address] 29268Nuo Diff?AutoInvalid Interpretation [facility] Comment on above:Performed By: #### 82117400, 5542098, [id number] #### [facility] (DEFAULT) [address] [place] [address] 67335BJX (RBC) [Entitic mass]30 oyNjfmhj82-69Xusiojhd Hospital Comment on above:Performed By: #### 55687335, 7424187, [id number] #### [facility] (DEFAULT) [address] [place] [address] 776[address]HWYS (RBC) [Mass/Vol]35 g/uCBwtwqs12-61Dhuyelbe Hospital Comment on above:Performed By: #### 54264740, 2653314, [id number] #### [facility] (DEFAULT) [address] [place] [address] 48012IAU (RBC) [Entitic vol]86 uKUrmhoa60-824Cvwxmarc Hospital Comment on above:Performed By: #### 69063578, 8502105, [id number] #### [facility] (DEFAULT) [address] [place] [address] 476[address]Mhhvukcs608 e85Qikblp798-436Edhuddvi HospitalComment on above:Performed By: #### 86342682, 4967851, [id number] #### [facility] (DEFAULT) [address] [place] [address] 21457Azngfpba mean volume (Bld) [Entitic vol]8.6 fLNormal 6.3-10.2Mmetrohealth main campus medical center HospitalComment on above:Performed By: #### 75267752, 9111368, [id number] #### [facility] (DEFAULT) [address] [place] [address] 99003YLA0.89 u00Iaxvgs6.70-5.30[facility] HospitalComment on above:Performed By: #### [id number], [id number], [id number] #### [facility] (DEFAULT) [address] [place] [address] 50059VVX8.9 q01Hbevaj2.5-10.5[facility] HospitalComment on above: Performed By: #### [id number], [id number], [id number] #### [facility] (DEFAULT) [address] [place] [address] 78067Dxqvt Enzymeson 75-84-9351Pbg Phos56 IU/ZYmomgw37-47 [facility] HospitalComment on above:Performed By: #### [id number], [id number], [id number] ####[facility] (DEFAULT)[address] [place] [address] 55362QXB [Catalytic activity/Vol]53.0 U/LHigh8.0-36.0[facility] HospitalComment on above:Performed By: #### [id number], [id number], [id number] ####[facility] (DEFAULT)[address] [place] [address] 54718FSF [Catalytic activity/Vol]35 U/PKhqyoq52-02Mqcocugc HospitalComment on above:Performed By: #### [id number], 8758022, [id number] ####[facility] (DEFAULT)[address] [place] [address] 60762Eftby glutamyl transferase [Catalytic activity/Vol]31.0 U/LHigh 7.0-26.0[facility] HospitalComment on above:Performed By: #### [id number], 8854083, [id number] ####[facility] (DEFAULT)[address] [place] [address] 42031Fmvmhs Summaryon 95-11-0902Wzqgkd SummaryHTMLBase 64 CsceimexATn6wGh+PGhlYWQ+MJ3TBOWqN75dsFRcuR0hT2RAMVrDBfitSPMSWHgAGoZijfAiKZ5flDDz ZXJu [file] IGN (more content not included)...[facility] MiamisburgOutside Recordson 90-90-8933Ascfwri [id number]#1.00OTGTIFF [facility] MiamisburgReminder Messageson 91-39-2530Epmdedhp Messages From: BALJIT PISANO DO To: [facility] Sent: 01/13/2023 07:37:35 EDT ! Show up: [...] IU/L (7.0 - 26.0) [facility] Messages From: BALJIT PISANO DO To: [facility] Clinical Pool ([facility]); Sent: 01/13/2023 07:34:28 EDT ! Show up: 01/13/2023 07:34:28 EDT Subject: Results Follow Up Actions: Call the patient with result(s) Due Date/Time: 01/14/2023 07:34:00 EDT Reminder Comments: swollen fatty liver consistenat with hepatitis Results: Date Result Type Result Name 01/09/2023 16:08 Radiology US Gallbladder [facility] Enzymeson 92-96-8304Tjf Phos57 IU/IJxewcd68-74Dchtzelx HospitalComment on above:Performed By: #### [id number] ####[facility] (DEFAULT)[address] [place] [address] 68631MSF [Catalytic activity/Vol]54.0 U/LHigh8.0-36.0[facility] HospitalComment on above:Performed By: #### [id number] ####[facility] (DEFAULT)[address] [place] [address] 86368QEV [Catalytic activity/Vol]35 U/GHdshdw63-17 [facility] HospitalComment on above:Performed By: #### [id number] ####[facility] (DEFAULT)[address] [place], [place] [address]Rmgtm glutamyl transferase [Catalytic activity/Vol]30.0 U/LHigh7.0-26.0[facility] HospitalComment on above:Performed By: #### [id number] ####[facility] (DEFAULT)[address] [place], [place] [address]OM Gallbladderon 49-31-5384BH GallbladderClinical History: Right upper quadrant pain. Technique: [Sonography of the [...] Rafita Farris MD 01/09/23 4:08 pm Technologist: [address] HospitalCoding Summaryon 98-28-8466Mftumv SummaryHTMLBase 64 YqgopgaeULc2nIy+PGhlYWQ+NV2OWYFqA95pxEIfyD7eU4NSLMpNHkbtXRYVHZwKCcFhqgZpLG5uaDYc ZXJu [file] IGN (more content not included)...[facility] MiamisburgReminder Messageson 51-15-5781Kykfiyio Messages From: BALJIT PISANO DO To: [facility] Clinical [facility] Sent: 01/01/2023 10:45:19 EDT ! Show up: [...] voicemail Notified patient of results, patient verbalized understanding.NormalGenesis HospitalHBsAg Screen LCon 46-88-6536WJuTk Screen LCNegativeInvalid Interpretation CodeNegativeGenesis HospitalComment on above:Result Comment: Performed At: [address] [id number] Chai Apple PhD Ph:[phone] By: #### [id number], [id number], 9547740, 69665646, 38310298, [id number] ####[facility] (DEFAULT)[address] [place] [address] 74411EQA Antibody LCon 74-49-9088Cqa C Virus Ab LC Non-ReactiveInvalid Interpretation CodeNon ReactiveGenesis HospitalComment on above:Result Comment: HCV antibody alone does not differentiate between previously resolved infection and active infection. Equivocal and Reactive HCV antibody results should be followed up with an HCV RNA test to support the diagnosis of active HCV infection. Performed At: [address] [id number] Chai Apple PhD Ph:[phone] By: #### [id number], [id number], 2725308, 70521641, 11012309, [id number] ####[facility] (DEFAULT)[address] [place] [address] 74633Nfi A Ab, Total LCon 66-38-5447Jsr A Ab, Total LCPositiveAbnormalNegativeGenesis HospitalComment on above:Result Comment: Performed At: [address] [address] [place], [place] [id number] Chai Apple PhD Ph:[phone] By: #### [id number], 34081866, 1068467, 80676904, 50125796, [id number] ####[facility] (DEFAULT)[address] [place] [address] 04672Jxdpcqs Recordson 53-03-5193Zikufvs Records [id number]#1.00[facility] Patient Handouton 04-08-7414Dcgvubr Handout [id number]#1.00[facility].Auto Diff 167-25-9935Umhx [place] %8 %Normal1-12[facility] HospitalComment on above: Performed By: #### [id number], 41495587, 6637759, 78636593, 82783329, [id number] ####[facility] (DEFAULT)[address] [place] [address] 02888Rmwn Abs# 0.0 c45Awhlcl8.0-0.2M[facility] HospitalComment on above:Performed By: #### [id number], 57943402, 5955569, 76551349, 15443456, [id number] ####[facility] (DEFAULT)[address] [place] [address] 00294Jyxncxreq/100 WBC (Bld) 0.6 %Normal0.2-2.0[facility] HospitalComment on above:Performed By: #### [id number], 84390490, 0599959, 52252162, 91713850, [id number] ####[facility] (DEFAULT)[address] [place] [address] 43632Lxv Abs#0.1 g05Hrjbfw4.0-0.4 [facility] HospitalComment on above:Performed By: #### [id number], 94046729, 4281773, 56112685, 02541666, [id number] ####[facility] (DEFAULT)[address] [place] [address] 36821Oebqioqgwpi/100 WBC (Bld)1.9 %Normal0.9-4.0 [facility] HospitalComment on above:Performed By: #### [id number], 38536788, 1313086, 30420788, 49178558, [id number] ####[facility] (DEFAULT)[address] [place] [address] 09078Cpwnc Abs#1.8 l97Evldxs4.3-2.9[facility] HospitalComment on above:Performed By: #### [id number], 07395473, 2942185, 65024786, 66170596, [id number] ####[facility] (DEFAULT)[address] [place] [address] 71147Netidkqfevh/100 WBC (Bld)27 %Fotihn26-58Qvimrbvs HospitalComment on above:Performed By: #### [id number], 12977356, 0316036, 96678669, 31116500, [id number] ####[facility] (DEFAULT)[address] [place] [address] 51945Lwtm Abs#0.5 y53Zfvzfh9.0-0.8[facility] Hospital Comment on above:Performed By: #### [id number], 92869055, 5174255, 72644646, 58407850, 1641347582 ####[facility] (DEFAULT)[address] [place] [address] 39651Qbjp Abs#4.3 z77Iwrwse7.5-9.2Magruniversity hospitals [facility] HospitalComment on above: Performed By: #### 72701893, 37710538, 0285747, 00888366, 79907992, [id number] ####[facility] (DEFAULT)[address] [place] [address] 88342 Neutrophils/100 WBC (Bld)63 %Ggdnqa83-17Jlnmjfld HospitalComment on above: Performed By: #### [id number], 35651547, 3677071, 26806600, 16420759, 9167984118 ####[facility] (DEFAULT)[address] [place] [address] 33926WHG w/ Auto Diffon 48-58-2019Slvdxuvqnzb distribution width (RBC) [Ratio]13.0 %Normal 11.5-15.0[facility] HospitalComment on above:Performed By: #### [id number], 00871497, 7299850, 97383402, 50576540, 2122483305 ####[facility] (DEFAULT)[address] [place] [address] 15993Ebitamegtf (Bld) [Volume fraction]43.9 %Fjuhff46.8-51.9[facility] HospitalComment on above:Performed By: #### 54982324, 57095428, 6379977, 08117245, 24664923, 9554482318 ####[facility] (DEFAULT)[address] [place] [address] 01315Jorwyzvyok (Bld) [Mass/Vol]15.4 g/vJHeolpw29.8-17.7[facility] HospitalComment on above:Performed By: #### [id number], 84544831, 3863750, 17832880, 75873014, 7455622894 ####[facility] (DEFAULT)[address] [place] [address] 28712Tgo Diff? AutoInvalid Interpretation CodeFayette County Memorial Hospital HospitalComment on above:Performed By: #### [id number], 16350833, 3958387, 08225884, 89089006, [id number] ####[facility] (DEFAULT)[address] [place] [address] 60604MBF (RBC) [Entitic mass]30 rwKfwlha09-21Ncmhjidg HospitalComment on above:Performed By: #### [id number], 17913412, 8511013, 66262726, 32963423, [id number] ####[facility] (DEFAULT)[address] [place] [address] 94218NPTF (RBC) [Mass/Vol]35 g/bDEvhuiu48-56Ckpmpurl HospitalComment on above:Performed By: #### 73153351, 16944074, 2241139, 49384983, 22928633, 0547266179 ####[facility] (DEFAULT)[address] [place] [address] 52873RQD (RBC) [Entitic vol]86 fL Ropoop78-898Iellicbs HospitalComment on above:Performed By: #### [id number], 53235552, 0850443, 86169259, 70203347, 5157884359 ####[facility] (DEFAULT)[address] [place] [address] 67374Godkuspc651 i08Gpwueg089-252 [facility] HospitalComment on above:Performed By: #### [id number], 51960952, 9721660, 75694673, 79286407, 1186193424 ####[facility] (DEFAULT)[address] [place] [address] 06929Cmjwkfjl mean volume (Bld) [Entitic vol]8.5 fLNormal6.3-10.2M[facility] HospitalComment on above:Performed By: #### [id number], 27869549, 5344508, 53608566, 00017794, 5795938219 ####[facility] (DEFAULT)[address] [place] [address] 08208DJQ1.08 e67Uamhcm7.70-5.30 [facility] HospitalComment on above:Performed By: #### 12977659, 20198569, 2103735, 30315340, 71286213, 5916482355 ####[facility] (DEFAULT)[address] [place] [address] 38885URW2.8 z85Rvsxdv5.5-10.5[facility] Hospital Comment on above:Performed By: #### 42902493, 84033227, 1419388, 96264608, 60996857, 1089974606 ####[facility] (DEFAULT)[address] [place] [address] 19800Lwzch Enzymeson 53-96-9408Siq Phos62 IU/ZLgxftr17-19Ualkkoyi HospitalComment on above:Performed By: #### 85987715, 65368477, 0659199, 61661664, 09986161, [id number] ####[facility] (DEFAULT)[address] [place] [address] 14385DUL [Catalytic activity/Vol]60.0 U/LHigh8.0-36.0 [facility] HospitalComment on above:Performed By: #### 15817576, 42814372, 5382245, 56559041, 40850968, [id number] ####[facility] (DEFAULT)[address] [place] [address] 85837RRI [Catalytic activity/Vol]41 U/CSimf19-94 [facility] HospitalComment on above:Performed By: #### 10541005, 99220219, 8300080, 53543405, 35277049, 3327876962 ####[facility] (DEFAULT)[address] [place] [address] 52778Ipxqj glutamyl transferase [Catalytic activity/Vol]26.0 U/LNormal7.0-26.0[facility] HospitalComment on above:Performed By: #### [id number], 69900524, 1819789, 57224877, 37494562, 8690582341 ####[facility] (DEFAULT)[address] [place] [address] 51111Zxxoxrn Handouton 25-23-6280Duywxol Handout [id number]#1.00OTGTIFFNormCleveland Clinic South Pointe HospitalRNP ANTIBODIESon 21-33-5741YLM Antibodies0.3 AINormal0.0-0.9[facility] Comment on above:Performed By: #### RNPAB #### [facility] [address] [place] [address] Dr. Radha Jung ANTIBODIES (Anti SSA/B)on 85-71-0444Rbnaqqs's Anti-SS-A <0.0Xnxidx6.0-0.9[facility] - YoungstownComment on above:Performed By: #### SAASSAB #### [facility] [address] [place] [address] Dr. Radha Lux Anti-SS-B<0.9Cacmow4.0-0.9The [facility] HospitalComment on above:Performed By: #### SAASSAB #### [facility] [address] [place] [address] Dr. Radah Mendez PROFILE Bon 78-65-2834QEF DirectNegativeNormalNegativeThe [facility] HospitalComment on above:Performed By: #### SLEPB #### [facility] [address] [place] [address] Dr. Radha Gaston-DNA (DS) Ab Qn2 IU/mLNormal0-9[facility] - YoungstownComment on above:Result Comment: Negative <5 Equivocal 5 - 9 Positive >9Performed By: #### SLEPB #### [facility] [address] [place] [address] Dr. Radha OwensAntichromatin Antibodies<0.3Lborkw4.0-0.9[facility] Comment on above:Performed By: #### SLEPB #### [facility] [address] [place] [address] Dr. Radha Barber C3, Osfot236 mg/pBXafccq67-311MgdSelect Medical Specialty Hospital - [place] Comment on above:Performed By: #### SLEPB #### [facility] [address] [place] [address] Dr. Radha Barber C4, Serum23 mg/kZCguiaj23-16Dwp [facility] Comment on above:Performed By: #### SLEPB #### [facility] [address] [place] [address] Dr. Radha Sen ANTIBODIESon 84-16-9873Gxzmg Antibodies<0.0Ghybsw4.0-0.9The [facility] HospitalComment on above:Performed By: #### SMITHAB #### [facility] [address] [place] [address] Dr. Radha WaltersID FACTORon 93-51-7231HE Latex Turbid.<10.0Normal<14.0[facility] - YoungstownComment on above:Performed By: #### RF ####[facility] [address] [place] [address]Dr. Radha Montes De [place] by IFAon 31-42-7397Vfzqlhygkjr Antibodies, IFAPositiveAbKindred Healthcare Comment on above:Result Comment: Negative <1:80 Borderline 1:80 Positive >1:80Performed By: #### ANAIFA #### [facility] [address] [place] [address] [address] Radha Herrera [facility] HospitalComment on above: Performed By: #### ANAIFA #### [facility] [address] [place] [address] [address] Radha Santoyoromesilvestre PatternAkron Children's HospitalComment on above: Performed By: #### ANAIFA #### [facility] [address] [address] [address] Radha OwensHomogeneous Pattern1:320Critically highSelect Medical Specialty [facility] [place] Comment on above:Result Comment: ICAP nomenclature: AC-1Performed By: #### ANAIFA #### [facility] [address] [address] [address] Radha OwensMidbody PatternAkron Children's HospitalComment on above: Performed By: #### ANAIFA #### [facility] [address] [address] [address] Radha OwensNote:CommentAkron Children's HospitalComment on above:Result Comment: For more information about Hep-2 cell [...] titers Nucleosomes, Histones Drug-induced SLE Speckled Sm, CERTIFIED TECHNICIAN SPECIALIST, SCL-70, SLE,MCTD,PSS (diffuse form), SS-A/SS-B Sjogrens Nucleolar SCL-70, PM- 1/SCL High titers Scleroderma, PM/DM Centromere Centromere PSS (limited form)w/Crest syndrome variable Nuclear Dot Sp100,u33-zpaxya Primary Biliary Cirrhosis Nuclear GP210, Primary Biliary Cirrhosis Membrane subhash A,B,C Performed By: #### ANAIFA #### [facility] [address] [place] [address] [address] Radha Moseley Dot [facility] HospitalComment on above: Performed By: #### ANAIFA #### [facility] [address] [address] [address] Radha Moseley Membrane [facility] HospitalComment on above:Performed By: #### ANAIFA #### [facility] [address] [address] [address] Radha Ganolar [facility] HospitalComkalamazoo psychiatric hospital on above: Performed By: #### ANAIFA #### [facility] [address] [place] [address] Dr. Radha Lees [facility] HospitalComkalamazoo psychiatric hospital on above:Performed By: #### ANAIFA #### [facility] [address] [place] [address] Dr. Radha OwensSpeckled [facility] HospitalComkalamazoo psychiatric hospital on above: Performed By: #### ANAIFA #### [facility] [address] [place] [address] Dr. Radha OwensSpdarleenle Apparatus [facility] HospitalComkalamazoo psychiatric hospital on above:Performed By: #### ANAIFA #### [facility] [address] [place] [address] Dr. Radha OwensRHEUMATOID FACTORon 27-53-2456LT Latex Turbid.<10.0Normal<14.0[facility] on above:Performed By: #### RF ####[facility] [address] [place] [address]Dr. Radha Barnett AUTO DIFF on 75-41-1163BIZR #0.0 103/ulNormal0.0-0.1[facility] on above: Performed By: #### CBC #### [facility] [address] [address] [address] Radha OwensBasophils/100 WBC (Bld)0.6 %Normal0.2-2.0The [facility] Comment on above:Performed By: #### CBC #### [facility] [address] [address] [address] Radha Aguirre #0.1 103/ulNormal0.0-0.7The [facility] HospitalComment on above: Performed By: #### CBC #### [facility] [address] [address] [address] Radha Burrellosinophils/100 WBC (Bld)1.8 %Normal0.9-7.0The [facility] Comment on above:Performed By: #### CBC #### [facility] [address] [place] [address] Dr. Radha Burrellrythrocyte distribution width (RBC) [Ratio]12.3 %Lqusie37.0-15.0 The [facility] HospitalComment on above:Performed By: #### CBC #### [facility] [address] [place] [address] Dr. Radha OwensHematocrit (Bld) [Volume fraction]42.2 %Evshsa46.0-54.0The [facility] HospitalComment on above:Performed By: #### CBC #### [facility] [address] [place] [address] Dr. Radha OwensHemoglobin (Bld) [Mass/Vol]14.3 g/wHEezjbf26.0-18.0The [facility] HospitalComment on above:Performed By: #### CBC #### [facility] [address] [place] [address] Dr. Radha Farooq #0.02 10e3/ulNormal0.00-0.03The [facility] HospitalComment on above:Performed By: #### CBC #### [facility] [address] [place] [address] Dr. Radha Farooq %0.3 %Normal0.0-0.5The [facility] HospitalComment on above: Performed By: #### CBC #### [facility] [address] [address] [address] Radha Covarrubias #1.8 103/ulNormal1.2-3.8The [facility] HospitalComment on above:Performed By: #### CBC #### [facility] [address] [address] [address] Radha Munozhocytes/100 WBC (Bld)27.8 %Vhjcgx55.5-60.0The [facility] HospitalComment on above:Performed By: #### CBC #### [facility] [address] [address] [address] Radha Morse DIFF REQNONormalThe [facility] HospitalComment on above: Performed By: #### CBC #### [facility] [address] [place] [address] Dr. Radha Penaloza (RBC) [Entitic mass]29.8 zkIurmjb55.9-34.0The [facility] HospitalComment on above:Performed By: #### CBC #### [facility] [address] [place] [address] Dr. Radha Penaloza (RBC) [Mass/Vol]33.9 g/wUErzphc98.9-35.2The [facility] on above:Performed By: #### CBC #### [facility] [address] [place] [address] Dr. Radha Penaloza (RBC) [Entitic vol]87.9 lNKujnfy85.0-94.0The [facility] Hospitalment on above:Performed By: #### CBC #### [facility] [address] [place] [address] Dr. Radha Lofton #0.7 103/ulNormal0.3-0.8The [facility] on above:Performed By: #### CBC #### [facility] [address] [address] [address] Radha Peralesocytes/100 WBC (Bld)11.3 %Normal1.7-12.0The [facility] Comment on above:Performed By: #### CBC #### [facility] [address] [address] [address] Radha Mcfadden #3.8 103/ulNormal1.4-6.5The [facility] HospitalComment on above:Performed By: #### CBC #### [facility] [address] [address] [address] Radha Weeksutrophils/100 WBC (Bld)58.2 %Gmkdnk57.0-75.0The [facility] HospitalComment on above:Performed By: #### CBC #### [facility] [address] [place] [address] Dr. Radha Herrmannlet mean volume (Bld) [Entitic vol]10.4 fLNormal9.5-13.5The [facility] HospitalComment on above:Performed By: #### CBC #### [facility] [address] [place] [address] Dr. Radha OwensPLT235 103/tuTjchvk074-128Ulh [facility] HospitalComment on above: Performed By: #### CBC #### [facility] [address] [place] [address] Dr. Radha OwensRBC4.80 106/ulNormal4.70-6.10The [facility] HospitalComment on above:Performed By: #### CBC #### [facility] [address] [place] [address] Dr. Radha OwensWBC6.5 103/ulNormal4.0-11.0The [facility] HospitalComment on above: Performed By: #### CBC #### [facility] [address] [place] [address] Dr. Radha OwensPROBladimir 14(COMP METB)on 00-72-9075Ukeallf [Mass/Vol]3.9 g/dLNormal 3.4-5.0The [facility] HospitalComment on above:Performed By: #### CMP, URIC #### [facility] [address] [place] [address] Dr. Radha OwensAlbumin/Globulin [Mass ratio]1.0 {ratio}NormalThe [facility] HospitalComment on above:Performed By: #### CMP, URIC #### [facility] [address] [place] [address] Dr. Radha Uriarte [Catalytic activity/Vol]73 U/GDwfdht95-991Mtl [facility] HospitalComment on above:Performed By: #### CMP, URIC #### [facility] [address] [place] [address] Dr. Radha Atkins [Catalytic activity/Vol]66 U/LCritically wxrn53-00Vdi [facility] HospitalComment on above:Performed By: #### CMP, URIC #### [facility] [address] [place] [address] Dr. Radha Barron gap [Moles/Vol]13.2 mmol/LNormalThe [facility] Comment on above:Performed By: #### CMP, URIC #### [facility] [address] [place] [address] Dr. Radha Interiano [Catalytic activity/Vol]31 U/QEgvcfj84-15Jnd [facility] HospitalComment on above:Performed By: #### CMP, URIC #### [facility] [address] [place] [address] Dr. Radha OwensBilirubin [Mass/Vol]0.8 mg/dLNormal0.2-1.0The [facility] Comment on above:Performed By: #### CMP, URIC #### [facility] [address] [place] [address] Dr. Radha OwensCalcium [Mass/Vol]9.2 mg/dLNormal8.5-10.1The [facility] Comment on above:Performed By: #### CMP, URIC #### [facility] [address] [place] [address] Dr. Radha OwensChloride [Moles/Vol]107 mmol/SJzeebd60-377Dgm [facility] Comment on above:Performed By: #### CMP, URIC #### [facility] [address] [place] [address] Dr. Radha OwensCO2 [Moles/Vol]26.0 mmol/HJiflbk93.0-32.0The [facility] Comment on above:Performed By: #### CMP, URIC #### [facility] [address] [place] [address] Dr. Radha OwensCreatinine [Mass/Vol]0.89 mg/dLNormal0.70-1.30[facility] HospitalComment on above:Performed By: #### CMP, URIC #### [facility] [address] [address] [address] Radha BurrellGFR-AF ALBANIAN>60Normal>=60[facility] HospitalComment on above:Performed By: #### CMP, URIC #### [facility] [address] [place] [address] Dr. Radha BurrellGFR-NON AF ALBANIAN>60Normal>=60[facility] HospitalComment [facility] above:Performed By: #### CMP, URIC #### [facility] [address] [place] [address] Dr. Radha OwensGlobulin (S) [Mass/Vol]4.1 g/dLNormalThe [facility] HospitalComment on above:Performed By: #### CMP, URIC #### [facility] [address] [place] [address] Dr. Radha OwensGlucose [Mass/Vol]99 mg/cPMjikbd17-310XecSelect [facility] [place] Comment on above:Performed By: #### CMP, URIC #### [facility] [address] [place] [address] Dr. Radha OwensPotassium [Moles/Vol]4.2 mmol/LNormal3.5-5.1The [facility] Comment on above:Performed By: #### CMP, URIC #### [facility] [address] [place] [address] Dr. Radha OwensProtein [Mass/Vol]8.0 g/dLNormal6.4-8.2[facility] Comment on above:Performed By: #### CMP, URIC #### [facility] [address] [place] [address] Dr. Radha Vilchisdium [Moles/Vol]142 mmol/TCceboy815-915Uom [facility] Comment on above:Performed By: #### CMP, URIC #### [facility] [address] [address] [address] Radha OwensUrea nitrogen [Mass/Vol]13.0 mg/dLNormal6.4-19.3[facility] HospitalComment on above:Performed By: #### CMP, URIC #### [facility] [address] [address] [address] Radha Melendrez nitrogen/Creatinine [Mass ratio]14.6 mg/mgNoMount St. Mary HospitalComment on above:Performed By: #### CMP, URIC #### [facility] [address] [place] [address] Dr. Radha OwensSECarmella RATE WESTERGRENon [id number] RATE12 mm/hrNormal<=15The [facility] HospitalComment on above:Performed By: #### SEDR #### [facility] [address] [place] [address] Dr. Radha OwensURIC ACID SERUMon [id number] [Mass/Vol]5.9 mg/dLNormal 3.5-7.2[facility] HospitalComment on above:Performed By: #### CMP, URIC #### [facility] [address] [place] [address] Dr. Radha Rodriguez CLIF DOP LEG RTon [id number] CLIF DOP LEG RTEXAMINATION: US CLIF DOP LEG RT HISTORY: Pain of right calf COMPARISON: No relevant comparison available. FINDINGS: REGION: Right lower extremity THROMBI: None. COMPRESSIBILITY: Normal compressibility. FLOW: Normal waveform and antegrade flow between 5 and 20 cm/s. OTHER: None. IMPRESSION: 1. No deep vein thrombus within the right lower extremity. Electronically authenticated by: SANJAY ROJAS Date: 2022-07-03 17:14[facility] HospitalCOVID Quick Testingon [id number] [facility] Other MRI Knee w/o Righton [id number] Knee w/o Right HISTORY: Fall with knee pain. Popping sensation. Anterior knee pain. TECHNIQUE: [...] and signed by Rafita Farris on 05/01/2021 1125NormalNortsoutheastern arizona behavioral health servicesn [facility] HospitalKN RIGHTon [id number] RIGHTEXAMINATION: KNEE RIGHT, 04/18/2021 5:05 PM EST HISTORY: Traumatic injury, pain COMPARISON: None. TECHNIQUE: Right knee x-ray: 2 view(s). FINDINGS: Bones are normal density. No fracture, no bone destruction. Small knee effusion noted. Subcutaneous edema is seen. IMPRESSION: 1. No acute traumatic osseous pathology 2. Subcutaneous edema, possible small knee effusionNoSt. [facility] ANKLE 3 VIEWS - LEFTon [id number] ANKLE 3 VIEWS - LEFTREASON FOR EXAM: left ankle pain one month, hurt jumping for basketball ;PainTECHNIQUE: XR ANKLE 3 V IEWS - LEFTCOMPARISON: None.FINDINGS:DISTAL TIBIA and FIBULA: No fracture visualized. There is an eccentricslightly expansile lytic lesion with sclerotic margins at the lateraldiaphysis of the tibia,partially ossified superiorly. This extendsapproximately 5.7 cm craniocaudal, [...] by: Kandice Noriega MD on 12/25/2017 2:18 PMNormal [facility] Vital Signs Date TimeVital SignValuePerforming MohpsqgqfMouqjvzv31-26-9034 10:06-0400Body nnnezt206.9 cmFranci Byrd CLOTH CALENDER-MANAGER MATERIAL Work Phone: [facility]10-06-2025 10:06-0400Body mass index (BMI) [Ratio]61.28 kg/c3HlxtjttFranci Byrd CLOTH CALENDER-MANAGER MATERIAL Work Phone: [facility]10-06-2025 10:06-0400Body fzunin684.94 kgFranci Byrd CLOTH CALENDER-MANAGER MATERIAL Work Phone: [facility]10-06-2025 10:06-0400Diastolic blood mm[Hg]Franci Byrd CLOTH CALENDER-MANAGER MATERIAL Work Phone: [facility]10-06-2025 10:06-0400Heart rate 106 /minFranci Byrd CLOTH CALENDER-MANAGER MATERIAL Work Phone: [facility]10-06-2025 10:06-0400Systolic blood wlywtnsp716 mm[Hg]Franci Byrd CLOTH CALENDER-MANAGER MATERIAL Work Phone: [facility]09-16-2025 10:44-0400Body xkbwyb836.9 cmGail Shell MD Work Phone: [facility] ALGAentis Ekonuv78-00-1181 10:44-0400Body mass index (BMI) [Ratio]60.49 kg/k5TngbrGail Shell MD Work Phone: [facility]09-16-2025 10:44-0400Body eyasxg185.3 kgGail Shell MD Work Phone: [facility]09-16-2025 10:44-0400Diastolic blood inazcvmt15 mm[Hg]Gail Shell MD Work Phone: [facility]09-16-2025 10:44-0400Heart rate 111 /minDavicarmella Shell MD Work Phone: [facility]09-16-2025 10:44-0400Systolic blood uvanerkq041 mm[Hg]Gail Shell MD Work Phone: [facility]09-08-2025 09:34-0400Body btiiyn354.9 cmJearturo Byrd CLOTH CALENDER-MANAGER MATERIAL Work Phone: [facility]09-08-2025 09:34-0400Body mass index (BMI) [Ratio]60.33 kg/m5Cnfwwgn Byrd CLOTH CALENDER-MANAGER MATERIAL Work Phone: [facility] ALGAentis Aotrad59-52-9800 09:34-0400Body wiplyr882.76 kgFranci Gayoll CLOTH CALENDER-MANAGER MATERIAL Work Phone: [facility] ALGAentis Uspybt53-86-3958 09:34-0400Diastolic blood obduczkv63 mm[Hg]Franci Byrd CLOTH CALENDER-MANAGER MATERIAL Work Phone: [facility]09-08-2025 09:34-0400Heart rate 100 /minFranci Byrd CLOTH CALENDER-MANAGER MATERIAL Work Phone: [facility]09-08-2025 09:34-0400Systolic blood vgjwczvu656 mm[Hg]Franci Byrd CLOTH CALENDER-MANAGER MATERIAL Work Phone: [facility] ALGAentis Kwsstf56-01-9475 10:35-0400Diastolic blood tcewzfjs30 mm[Hg]Enid Montenegro CLOTH CALENDER-MANAGER MATERIAL Work Phone: [facility]09-03-2025 10:35-0400Heart rate 90 /minEnid Montenegro CLOTH CALENDER-MANAGER MATERIAL Work Phone: [facility]09-03-2025 10:35-0400Systolic blood ztpituyg884 mm[Hg]Enid Montenegro REUBEN-MANAGER MATERIAL Work Phone: [facility]08-07-2025 08:15-0400Body dhyvxl851.[address]08-07-2025 08:15-0400Body mass index (BMI) [Ratio]59.4 kg/m2Pmh [address] [place], [place] 1885108-07-2025 08:15-0400Body eqkwum116.[address] [place], [place] 1885107-22-2025 08:22-0400Body .9 cmBelen Langston MD Work Phone: [facility]07-22-2025 08:22-0400Body mass index (BMI) [Ratio]60.2 kg/v3CrbobgdyovqBelen Langston MD Work Phone: [facility]07-22-2025 08:22-0400Body enfbpk887.4 kgBelen Langston MD Work Phone: [facility]06-05-2025 08:28-0400Body .88 [facility]06[facility]20[facility] 08:28-0400Body mass index (BMI) [Ratio]61.2 kg/y7GvvyxnvbrSycamore Medical Center06-05-2025 08:28-0400Body jxpnpnbliqs44.6 [degF][facility]06-05-2025 08:28-0400Body .02 kgSy[facility] Center06-05-2025 08:28-0400Diastolic blood jwpfyjvd45 mm[Hg][facility] 10-13-2024 08:28-0400Heart rate97 /minSycamore Medical Center 10-13-2024 08:28-4157PgL1% (BldA) [Mass fraction]97 %[facility]06-05-2025 08:28-0400Systolic blood favbftfk749 mm[Hg][facility]05-15-2025 09:01-0400Body edtkzy671.88 cmSy[facility]05-15-2025 09:01-0400Body mass index (BMI) [Ratio]60.5 kg/m2 [facility]05-15-2025 09:01-0400Body rzhzuzexjud56.9 [degF][facility]05-15-2025 09:01-0400Body hqchky356.3 kg [facility]05-15-2025 09:01-0400Diastolic blood gthqibhm46 mm[Hg][facility]05-15-2025 09:01-0400Heart cacx306 /min [facility]05-15-2025 09:01-2264BkU0% (BldA) [Mass fraction]97 %[facility]05-15-2025 09:01-0400Systolic blood hbildsye126 mm[Hg][facility]04-23-2025 13:04-0400 Body uumssr561.88 cmSy[facility] Center04-23-2025 13:04-0400Body mass index (BMI) [Ratio]59.8 kg/p2RfoijvfcdSycamore Medical Center04-23-2025 13:04-0400Body onexgmsimvc42 [degF][facility]04-23-2025 13:04-0400Body erhgrf301.03 kgSycamore Medical Center04-23-2025 13:04-0400Diastolic blood unkcplzm76 mm[Hg][facility] 08-31-2024 13:04-0400Heart uooc807 /minSy[facility]ore Medical Center 08-31-2024 13:04-1543WiX1% (BldA) [Mass fraction]96 %[facility]04-23-2025 13:04-0400Systolic blood optbhrrs683 mm[Hg][facility]02-25-2025 23:17-0500Diastolic blood upodzeui49 mm[Hg]Nato Lezama [facility]02-25-2025 23:17-0500Heart rate96 /Joanie Lezama [facility]02-25-2025 23:17-0500 Respiratory rate18 /Joanie Chapmane [facility]02-25-2025 23:17-0685VwK7% (BldA) [Mass fraction]95 %Nato Lezaam [facility]02-25-2025 23:17-0500 Systolic blood hwrpdori468 mm[Hg]Nato Lezama [address] [place], [place] 2605902-25-2025 21:47-0500Body dsmvzwnarnz51.7 [degF]Nato Lezama [facility]02-25-2025 21:47-0500 Diastolic blood lgmflwwy42 mm[Hg]Nato Lezama [address] [place], [place] 2605902-25-2025 21:47-0500Heart rate96 /Joanie Lezama [address] [place], [place] 2605902-25-2025 21:47-0500 Respiratory rate18 /minNato Lezama [facility]02-25-2025 21:47-1055AgN7% (BldA) [Mass fraction]97 %Nato Lezama [facility]02-25-2025 21:47-0500 Systolic blood mm[Hg]Nato Lezama [facility]02-06-2025 09:58-0500Body .88 cmLeatha Emily CLOTH CALENDER Work Phone: [facility]02-06-2025 09:58-0500 Body mass index (BMI) [Ratio]59.1 kg/g5Epjmdjpb Emily CLOTH CALENDER Work Phone: [facility]02-06-2025 09:58-0500 Body twrcyilbema77.4 [degF]Leatha Diaz CLOTH CALENDER Work Phone: [phone]02-06-2025 09:58-0500 Body qjgkxa495.76 kgLeatha Zavalamarlenacher CLOTH CALENDER Work Phone: [phone] [place], [place] 6885502-06-2025 09:58-0500 Diastolic blood raysezng72 mm[Hg]Leatha Emily CLOTH CALENDER Work Phone: [phone] [place], [place] 6885502-06-2025 09:58-0500 Heart hhlz093 /Kemal Socorroacher CLOTH CALENDER Work Phone: [phone] [place], [place] 6885502-06-2025 09:58-0500 Respiratory rate18 /Kemal Socorroacher CLOTH CALENDER Work Phone: [phone])[address] [place], [place] 6885502-06-2025 09:58-0500 SaO2% (BldA) [Mass fraction]97 %Leatha Emily CLOTH CALENDER Work Phone: [phone] [place], [place] 6885502-06-2025 09:58-0500 Systolic blood lsxcaull985 mm[Hg]Leatha Emily CLOTH CALENDER Work Phone: [phone] [place], [place] 6885512-09-2024 08:25-0500 Body pfxgno418.88 cmLeatha Zavalamarlenacher CLOTH CALENDER Work Phone: [phone] [place], [place] 6885512-09-2024 08:25-0500 Body mass index (BMI) [Ratio]58.1 kg/r7Xlnpicxb Socorroacher CLOTH CALENDER Work Phone: [phone] [place], [place] 6885512-09-2024 08:25-0500 Body .6 [degF]Leatha Emily CLOTH CALENDER Work Phone: [phone] [place], [place] 6885512-09-2024 08:25-0500 Body gozgqs202.27 kgLeatha Zavalamarlenacher CLOTH CALENDER Work Phone: [phone] [place], [place] 6885512-09-2024 08:25-0500 Diastolic blood cuixrpvy91 mm[Hg]Leatha Emily CLOTH CALENDER Work Phone: [phone] [place], [place] 8462612-09-2024 08:25-0500 Heart rate89 /minJennifer Rohrbacher CLOTH CALENDER Work Phone: [phone] [place], [place] 6885512-09-2024 08:25-0500 SaO2% (BldA) [Mass fraction]98 %Leatha Zavalarbacher CLOTH CALENDER Work Phone: [phone] [place], [place] 6885512-09-2024 08:25-0500 Systolic blood nknpvcma987 mm[Hg]Leatha Zavalarbacher CLOTH CALENDER Work Phone: [phone] [place], [place] 6885511-12-2024 11:15-0500 Diastolic blood qrnfjzeb21 mm[Hg]Leatha Zavalarbacher CLOTH CALENDER Work Phone: [phone] [place], [place] 6885511-12-2024 11:15-0500 Heart rate84 /minJennifer Rohrbacher CLOTH CALENDER Work Phone: [phone] [place], [place] 6885511-12-2024 11:15-0500 Respiratory rate16 /minJennifer Rohrbacher CLOTH CALENDER Work Phone: [phone] [place], [place] 6885511-12-2024 11:15-0500 SaO2% (BldA) [Mass fraction]99 %Leatha Zavalarbacher CLOTH CALENDER Work Phone: [phone] [place], [place] 6885511-12-2024 11:15-0500 Systolic blood aivofwka926 mm[Hg]Leatha Zavalarbacher CLOTH CALENDER Work Phone: [phone] [place], [place] 6885511-12-2024 09:53-0500 Body lzgygo740.88 cmJennifer Rohrbacher CLOTH CALENDER Work Phone: [phone] [place], [place] 6885511-12-2024 09:53-0500 Body dlerch396.43 kgJennifer Rohrbacher CLOTH CALENDER Work Phone: [phone] [place], [place] 6885510-17-2024 15:32-0400 Body bywjod300.88 [facility]10-17-2024 15:32-0400Body mass index (BMI) [Ratio]57.1 kg/g9DipsuvjrkSycamore Medical Center10-17-2024 15:32-0400Body loelyqhzdpg55.1 [degF][facility]10-17-2024 15:32-0400Body cygyhp627.96 kgSycamore Medical Center10-17-2024 15:32-0400Diastolic blood fbfkfamc67 mm[Hg][facility] 02-25-2024 15:32-0400Heart rate73 /minSy[facility]ore Medical Center 02-25-2024 15:32-7315PnO6% (BldA) [Mass fraction]97 %[facility]10-17-2024 15:32-0400Systolic blood mm[Hg][facility]10-01-2024 09:01-0400Body oddqiy639.88 cmSy[facility]ore [facility] Center10-01-2024 09:01-0400Body mass index (BMI) [Ratio]57.4 kg/m2 [facility]10-01-2024 09:01-0400Body lunhpd921.09 kg [facility]10-01-2024 09:01-0400Diastolic blood potxnnly51 mm[Hg][facility]10-01-2024 09:01-0400Heart xbgf184 /min [facility]10-01-2024 09:01-0400Respiratory rate20 /min [facility]10-01-2024 09:01-4511UqE6% (BldA) [Mass fraction]94 %[facility]10-01-2024 09:01-0400Systolic blood fexrdadx203 mm[Hg][facility]09-19-2024 10:26-0400 Body embcge205.88 cmSy[facility] Center09-19-2024 10:26-0400Body mass index (BMI) [Ratio]57.1 kg/e0LqrukwjbpSycamore Medical Center09-19-2024 10:26-0400Body zlvgrhgykmu03.8 [degF][facility]09-19-2024 10:26-0400Body uoaupi998.96 kgSycamore Medical Center09-19-2024 10:Diastolic blood dqvyvxna04 mm[Hg][facility] 01-28-2024 10:Heart kidu160 /[facility] 01-28-2024 10:9998JbG8% (BldA) [Mass fraction]96 %[facility]09-19-2024 10:Systolic blood aknkofbj053 mm[Hg][facility]09-17-2024 10:20-0400Body nesxxj610.9 cmBelen Langston MD Work Phone: [facility]09-17-2024 10:20-0400Body mass index (BMI) [Ratio]56.39 kg/x8BawyisbwhsiBelen Langston MD Work Phone: [facility]09-17-2024 10:200400Body ysxcur718.61 kgBelen Langston MD Work Phone: [facility]09-17-2024 10:200400Diastolic blood waqhqizj36 mm[Hg]Belen Langston MD Work Phone: [facility]09-17-2024 10:200400Heart rate 108 /Jaron Langston MD Work Phone: [facility]09-17-2024 10:200400Systolic blood wgimxmsh910 mm[Hg]Belen Langston MD Work Phone: [facility]08-22-2024 10:0400Body hrkhfi933.88 cm[facility]08-22-2024 10:310400Body mass index (BMI) [Ratio]56.2 kg/g2LaivsuulySycamore Medical Center08-22-2024 10:31-0400Body dqtgwo454.24 kgSycamore Medical Center08-22-2024 10:31-0400Diastolic blood nsxtgsre04 mm[Hg][facility] 12-31-2023 10:310Heart rate97 /[facility] 12-31-2023 10:31-2991FaG9% (BldA) [Mass fraction]98 %[facility]08-22-2024 10:31-0400Systolic blood yrojnjqp885 mm[Hg][facility]07-31-2024 11:15-0400Body hyehqn132.88 cmSycamore Medical Center07-31-2024 11:15-0400Body mass index (BMI) [Ratio]54.8 kg/m2 [facility]07-31-2024 11:15-0400Body vobzup737.42 kg [facility]07-31-2024 11:15-0400Diastolic blood qbleyvqr27 mm[Hg][facility]07-31-2024 11:15-0400Heart bphp046 /min [facility]07-31-2024 11:15-0400Respiratory rate20 /min [facility]07-31-2024 11:15-4104FxL7% (BldA) [Mass fraction]98 %[facility]07-31-2024 11:15-0400Systolic blood fdpsqany906 mm[Hg][facility]07-01-2024 08:32-0400 Body ymwstd302.88 cmAPRQueta Diaz Work Phone: [facility]07-01-2024 08:32-0400 Body mass index (BMI) [Ratio]53.8 kg/m2REUBEN Diaz Work Phone: [facility]07-01-2024 08:32-0400 Body adngkn734.07 kgAPRQueta Diaz Work Phone: [facility]07-01-2024 08:32-0400 Diastolic blood ysfmyhka82 mm[Hg]REUBEN Diaz Work Phone: [facility]07-01-2024 08:32-0400 Heart rate91 /minREUBEN Diaz Work Phone: [facility]07-01-2024 08:32-0400 SaO2% (BldA) [Mass fraction]98 %CLOTH CALENDERQueta Zhang Lucasrbacher Work Phone: 1([phone] [place], [place] 8462607-01-2024 08:32-0400 Systolic blood xlbpcipq834 mm[Hg]CLOTH CALENDER Leatha Lucasrbacher Work Phone: [phone]06-13-2024 09:32-0400 Body nsrmwy151.88 cmAPRQueta Zhang Lucasrbacher Work Phone: 1([phone])[address]06-13-2024 09:32-0400 Body mass index (BMI) [Ratio]54.5 kg/m2APRQueta Zhang Lucasrbacher Work Phone: 1(043)[address] [place], [place] 6885506-13-2024 09:32-0400 Body .37 kgAPRQueta Zhang Lucasrbacher Work Phone: 1(572)[address]06-13-2024 09:32-0400 Diastolic blood zskippfu05 mm[Hg]CLOTH CALENDERQueta Zhang Lucasrbacher Work Phone: 1(300)[address]06-13-2024 09:32-0400 Heart xdvi241 /minAPRQueta Zhang Lucasrbacher Work Phone: 1([phone])[address]06-13-2024 09:32-0400 Respiratory rate20 /minAPRQueta Zhang Lucasrbacher Work Phone: 1(542)[address] [place], [place] 6885506-13-2024 09:32-0400 SaO2% (BldA) [Mass fraction]95 %CLOTH CALENDERQueta Zhang Lucasrbacher Work Phone: 1([phone])641-[address] [place], [place] 8462606-13-2024 09:32-0400 Systolic blood dkobwvbp453 mm[Hg]CLOTH CALENDER Leatha Lucasrbacher Work Phone: [phone]06-03-2024 15:58-0400 Body knuqwh158.88 cmASILVIANO Leatha Lucasrbacher Work Phone: 1(201)623-[address] [place], [place] 8462606-03-2024 15:58-0400 Body mass index (BMI) [Ratio]54.2 kg/m2APRQueta Zhang Lucasrbacher Work Phone: [phone])[address]06-03-2024 15:58-0400 Body frpyat232.43 kgAPRQueta Zhang Lucasrbacher Work Phone: 1([phone])[address]06-03-2024 15:58-0400 Diastolic blood sskksavl66 mm[Hg]CLOTH CALENDER Leatha Lucasrbacher Work Phone: 1(263)[address] [place], [place] 6885506-03-2024 15:58-0400 Heart iprz193 /minAPRQueta Leatha Lucasrbacher Work Phone: 1(685)[address] [place], [place] 6885506-03-2024 15:58-0400 SaO2% (BldA) [Mass fraction]98 %CLOTH CALENDER Leatha Lucasrbacher Work Phone: 1(062)[address] [place], [place] 6885506-03-2024 15:58-0400 Systolic blood vcrewavt236 mm[Hg]CLOTH CALENDER Leatha Lucasrbacher Work Phone: 1(654)[address] [place], [place] 6885505-16-2024 14:27-0400 Body ypupjn750.88 cmAPRQueta Zhang Lucasrbacher Work Phone: 1(255)[address] [place], [place] 6885505-16-2024 14:27-0400 Body mass index (BMI) [Ratio]53.4 kg/m2APRQueta Zhang Lucasrbacher Work Phone: 1([phone])[address]05-16-2024 14:27-0400 Body yzeiou488.71 kgAPRQueta Leatha Lucasrbacher Work Phone: 1(982)[address] [place], [place] 6885505-16-2024 14:27-0400 Diastolic blood mm[Hg]CLOTH CALENDERQueta JamilLeatha Lucasrbacher Work Phone: 1(469)[address]05-16-2024 14:27-0400 Heart uzim919 /minAPRQueta Zavalarbacher Work Phone: [phone]05-16-2024 14:27-0400 SaO2% (BldA) [Mass fraction]98 %REUBEN Zavalarbacher Work Phone: [phone]05-16-2024 14:27-0400 Systolic blood mehvfixg692 mm[Hg]CLOTH CALENDERQueta Zhang Lucasrbacher Work Phone: 1([phone])[address]05-02-2024 10:28-0400 Body .88 cmAPRQueta Zavalarbacher Work Phone: 1(264)[address]05-02-2024 10:28-0400 Body mass index (BMI) [Ratio]54.3 kg/m2APRQueta Zavalarbacher Work Phone: 1(145)[address]05-02-2024 10:28-0400 Body skhxya551.6 kgAPRQueta Zhang Lucasrbacher Work Phone: 1([phone])[address]05-02-2024 10:28-0400 Diastolic blood hhiuognw81 mm[Hg]REUBEN Zavalarbacher Work Phone: 1(959)[address]05-02-2024 10:28-0400 Heart rsba952 /minAPRQueta Zavalarbacher Work Phone: 1(251)[address]05-02-2024 10:28-0400 Respiratory rate20 /minAPRQueta Zavalarbacher Work Phone: 1([phone])[address]05-02-2024 10:28-0400 SaO2% (BldA) [Mass fraction]97 %REUBEN Zavalarbacher Work Phone: [phone])[address]05-02-2024 10:28-0400 Systolic blood zvuymffo708 mm[Hg]CLOTH CALENDER Leatha Lucasrbacher Work Phone: 1(698)[address]04-18-2024 10:38-0400 Body owipxd929.88 cmAPRQueta Leatha Stewartr Work Phone: [facility]04-18-2024 10:38-0400 Body mass index (BMI) [Ratio]54.5 kg/m2APRQueta Quintanillaacher Work Phone: [facility]04-18-2024 10:38-0400 Body kujbwq718.34 kgAPRQueta Stewartr Work Phone: [facility]04-18-2024 10:38-0400 Diastolic blood brovfdrp64 mm[Hg]CLOTH CALENDERQueta Diaz Work Phone: [facility]04-18-2024 10:38-0400 Heart kakb073 /minAPRQueta Stewartr Work Phone: [facility]04-18-2024 10:38-0400 SaO2% (BldA) [Mass fraction]98 %CLOTH CALENDERQueta Diaz Work Phone: [facility]04-18-2024 10:38-0400 Systolic blood raujgtdz696 mm[Hg]REUBEN Stewartr Work Phone: [facility]04-04-2024 10:02-0400 Body xyvdfy904.88 cmDO Kamibu Work Phone: [phone]-[facility]04-04-2024 10:02-0400 Body mass index (BMI) [Ratio]55.2 kg/m2DO Baljit House Work Phone: [phone] [place], [place] [address]-04-2024 10:02-0400 Body jhrfqo527.75 kgDO Kamibu Work Phone: [phone] [place], [place] [address]-04-2024 10:02-0400 Diastolic blood erurgdim57 mm[Hg]DO Baljit [employer] Work Phone: [phone] [place], [place] [address]-04-2024 10:02-0400 Heart rate99 /minDO Kamibu Work Phone: [facility]04-04-2024 10:02-0400 Respiratory rate20 /Jigna Pisano Work Phone: [phone] [place], [place] [address]-04-2024 10:02-0400 SaO2% (BldA) [Mass fraction]96 %DO Baljit Pisano Work Phone: [phone]-[facility]04-04-2024 10:02-0400 Systolic blood mm[Hg]DO Baljit Pisano Work Phone: [phone]03-12-2024 09:16-0400 Body rdhoay899.9 cmPriya Shendge V, PA Work Phone: [facility] [phone] 09:16-0400Body mass index (BMI) [Ratio]55.2 kg/d8Azxpz Shendge V, PA Work Phone: [phone]-[facility] HospitalIn[facility] [phone] 09:16-0400Body .61 kgPriya Shendge V, PA Work Phone: [phone]-[facility]i03-12-2024 09:16-0400Heart rate 85 /minPriya Shendge V, PA Work Phone: [facility] HospitalCloud4Wi03-12-2024 09:16-0400 Respiratory rate16 /minPriya Shendge V, PA Work Phone: [phone]-MD On-Line1[facility] HospitalCloud4Wi02-27-2024 13:25-0500Body mcaaxc306.42 cmDO Baljit Pisano Work Phone: [phone] [place], [place] [address]102-27-2024 13:25-0500 Body mass index (BMI) [Percentile] Per age and sex99.9 %DO Baljit Pisano Work Phone: [phone] [place], [place] [address]102-27-2024 13:25-0500 Body mass index (BMI) [Ratio]53.1 kg/m2DO Baljit Pisano Work Phone: [facility]02-27-2024 13:25-0500 Body heooyd800.79 kgDO Baljit Pisano Work Phone: [phone] [place], [place] 1500102-27-2024 13:25-0500 Diastolic blood ydjiugcz73 mm[Hg]DO Baljit Pisano Work Phone: [phone] [place], [place] 1500102-27-2024 13:25-0500 Heart rate97 /minDO Baljit [employer] Work Phone: [phone] [place], [place] [address]102-27-2024 13:25-0500 SaO2% (BldA) [Mass fraction]98 %DO Baljit Pisano Work Phone: [phone] [place], [place] [address]102-27-2024 13:25-0500 Systolic blood mm[Hg]DO Baljit [employer] Work Phone: [phone]01-16-2024 14:15-0500 Body iomjzk732.42 cmImad Asaad Other [address] [place], [place] 4992101-16-2024 14:15-0500 Body mass index (BMI) [Ratio]51.45 kg/m2Imad Asaad Other [facility] Other 01-16-2024 14:15-0500Body yjyoxf780.9 kgImad Asaad Other [facility]12-12-2023 13:45-0500 Body .42 cmImad Asaad Other [facility] Other 12-12-2023 13:45-0500Body mass index (BMI) [Ratio] 51.84 kg/m2Imad Asaad Other [facility] Other 12-12-2023 13:45-0500Body jsixkq773.26 kgImad Asaad Other [facility] Other 12-12-2023 13:45-0500Diastolic blood scgyuyfb30 mm[Hg] Imad Asaad Other [facility] Other 12-12-2023 13:45-0500Systolic blood ygoxfspk602 mm[Hg] Imad Asaad Other [facility] Other 11-09-2023 13:00-0500Body upmvec728.42 cmImad Asaad Other [facility] Other 11-09-2023 13:00-0500Body mass index (BMI) [Ratio] 51.87 kg/m2Imad Asaad Other [facility] Other 11-09-2023 13:00-0500Body .36 kgImad Asaad Other [facility] Other 11-09-2023 13:00-0500Diastolic blood grwcuvac96 mm[Hg] Imad Asaad Other [facility] Other 11-09-2023 13:00-0500Systolic blood ligrwzra32 mm[Hg] Imad Asaad Other [facility] Other 09-27-2022 10:55-0400Body .07 Ashlyn King Other [facility] Other 09-27-2022 10:55-0400Body mass index (BMI) [Ratio] 44.55 kg/e7OrsqpDevika King Other [facility] Other 09-27-2022 10:55-0400Body bvhkmsodjsq02.5 [degF]Devika King Other [facility] Other 09-27-2022 10:55-0400Body stzaev394.88 kgDevika King Other [facility] Other 09-27-2022 10:55-0400Respiratory rate18 /minDevika King Other [facility] Other 09-27-2022 10:55-0483JbN7% (BldA) [Mass fraction]97 % Devika King Other [facility] Other Encounters Encounter DateEncounter TypeCare ProviderFacilityStart: 02-13-2025 End: 44-07-9248Ajztve outpatient [facility] 10 [facility] Rachid Byrd CLOTH CALENDER[facility] Work Phone: [facility] General SurgeryComment on above: Pilonidal disease (Primary Dx)Start: 02-13-2025 End: 84-05-4706iaioonktmeKKMAKZU Rachid [facility] Start: 01-24-2025 End: 88-03-3332Vssftskkq encounterGail Shell MD Work Phone: [facility] Genito-Urinary SurgeonsStart: 01-24-2025 End: 93-04-4587rpraguvwgzNYMIA E FUMOProMedica Glenbeigh Hospitaltart: 01-24-2025 End: 17-97-7990Esifqd outpatient visit 25 Rahel Shell MD Work Phone: [facility] Genito-Urinary SurgeonsComment on above:Epididymal cyst (Primary Dx)Start: 01-19-2025 End: 95-17-6375Kttzbbvpl encounterBere Dang AProMedelmo Physicians General SurgeryStart: 01-16-2025 End: 04-27-6406Ycoyaf follow up visit related to original Tete Byrd CLOTH CALENDER-MANAGER MATERIAL Work Phone: [facility] Physicians General SurgeryComment on above: Pilonidal disease (Primary Dx)Start: 01-16-2025 End: 76-38-6541dqsnvtqwcoPIZOLUJ A [facility] Start: 01-11-2025 End: 00-71-7521Uihmfj outpatient new 30 minutesHeather Darcy ALEXIS-MANAGER MATERIAL Work Phone: [facility] Genito-Urinary SurgeonsComment on above:Epididymal cyst (Primary Dx); Right hydroceleStart: 01-11-2025 End: 17-76-2959ximsslsxchTORBOYW SA[facility] H[facility] FOR WOMENKRYSTYNAMercy Health St. Anne Hospital HospitalStart: 01-06-2025 End: 80-05-9357Zvyuizwrq encounterEse Reyna [facility] Physicians General SurgeryStart: 01-05-2025 End: 08-55-6703Axhnwf OnlyDean Atkins DO Work Phone: [facility] Surgeons Sign InStart: 01-03-2025 End: 03-05-6429Ltuhqukyc encounterEleanor Kruse [facility] Physicians General SurgeryStart: 01-02-2025 End: 22-65-7337Gjvluxizoe and management of inpatientJEMIRA DIAZ [facility] Centertart: 12-30-2024 End: 01-95-3669Gxukstrwi encounterBere DOBBSAProMedelmo Physicians General SurgeryStart: 12-29-2024 End: 55-82-9508Chepdbpbh department patient visitJENNMARYANA Flores Cost HospitalStart: 12-15-2024 End: 67-52-5350Uaxmxhp encounter procedurePmh Pre-Admission Testing 2PUniversity [facility] - Pre AdmitStart: 67-47-2656Uoqwuwgai for other preprocedural examinationDAAURORA MCELROYGood Samaritan Hospital HospitalStart: 12-15-2024 End: 55-85-8657hpulgjacdeWZBHJLCL ROHRBBEBETORPOrthoColorado Hospital at St. [facility] Campus HospitalStart: 11-29-2024 End: 70-79-6155Ikxcac outpatient visit 15 minutesBelen Langston MD Work Phone: [facility] General SurgeryComment on above: Pilonidal disease (Primary Dx)Start: 11-29-2024 End: 65-60-0071pctabyrejmUXOADRTOXZJ M [facility] Start: 10-13-2024 End: 84-44-8960zhqpnytabfOjhkygsmcGreene Memorial Hospital Work Phone: Start: 10-13-2024 End: 77-16-6568Zwgemop encounter procedureCarolinas [facility] Work Phone: Start: 09-22-2024 End: 62-04-8410hafywklevoJbaodbknfOhioHealth [facility] Work Phone: Start: 09-22-2024 End: 92-11-4711Osdfotn encounter procedureCarolinas [facility]care [facility] Work Phone: Start: 08-31-2024 End: 65-75-1885hqszgblnpgQykdhlxzrOhioHealth [facility] Work Phone: Start: 08-31-2024 End: 80-47-7013Mzqvdxy encounter procedureCarolinas Continuecare [facility] Physician GroupTogus VA Medical Center Work Phone: Start: 08-29-2024 End: 99-84-0327edpzqcigttNQQUZGDG ROHRBACHERProMedica Buffalo HospitalStart: 08-11-2024 End: 03-84-4087pvrndbugfuYYFGUKPF ROHRBACHERProMedica Buffalo HospitalStart: 07-28-2024 End: 30-76-6910lmfkxnpgpuPWGURVDI ROHRBACHERProMedBothwell Regional Health Center HospitalStart: 07-26-2024 End: 57-09-3509liobbqbgfrDXAH C BISOSKIProMediUniversity Hospitals Samaritan Medical Center HospitalStart: 07-11-2024 End: 64-96-6525Iwxfdqakwb and management of inpatientJENNIFER LUCASRBACHER [facility] Cost HospitalStart: 75-84-0271Wru-patient / Non-visitFirelands Physician Group-FPG [facility] Work Phone: Start: 07-05-2024 End: 61-04-3633Ylcqkqlxy department patient visitJohn Lise [facility] Start: 07-05-2024 End: 75-67-8754Gsptlccdl department patient visitISRAELOhioHealth Mansfield Hospitaltart: 06-16-2024 End: 42-85-9443mesphmwsbdNuufabyq Lucasrbacher CLOTH CALENDER Work Phone: [facility] Work Phone: Start: 06-16-2024 End: 32-65-7852Pbsogcr encounter procedureJemira Quintanillaacher CLOTH CALENDER Work Phone: [facility] Jacek Work Phone: Start: 04-26-2024 End: 88-16-1683ceqtjudjrjGRBCFXSRQLDLourdes Counseling Center [facility] Start: 04-18-2024 End: 36-58-2666Kgmztcy encounter procedureJennmaryana Zavalarbacher CLOTH CALENDER Work Phone: [facility]-FPG [facility] Work Phone: Start: 09-74-3005Uku-patient / Non-visitJemira Zavalarbacher CLOTH CALENDER Work Phone: [facility] Gastroenterology Work Phone: Start: 03-22-2024 End: 04-42-3251Bnyqceple to same day surgery centerJemira Quintanillaacher CLOTH CALENDER Work Phone: [facility] Work Phone: Start: 03-22-2024 End: 20-97-5642daenomgeadVovhpjio Lucasrbacher CLOTH CALENDER Work Phone: [facility] Work Phone: Start: 02-25-2024 End: 51-27-7322cafapxldmuTtvazxydbGreene Memorial Hospital Work Phone: Start: 02-25-2024 End: 30-72-1442Mmqtmdw encounter procedureCarolinas Continuecare [facility] Physician GroupTogus VA Medical Center Work Phone: Start: 02-09-2024 End: 12-64-2001lqprjhanniMckvgwbqqGreene Memorial Hospital Work Phone: Start: 02-09-2024 End: 62-92-1676Pgrkiai encounter procedureCarolinas [facility]care [facility] Work Phone: start: 01-28-2024 End: 57-61-0641vcndhmcizyGewdvridzGreene Memorial Hospital Work Phone: start: 01-28-2024 End: 33-36-1679Wjvemge encounter procedureCarolinas [facility] Physician GroupTogus VA Medical Center Work Phone: Start: 01-26-2024 End: 14-27-2029Rfxtdj outpatient new 30 minutesBelen Langston MD Work Phone: [facility] General SurgeryComment on above: Pilonidal abscess (Primary Dx)Start: 01-24-2024 End: 91-50-6512Znrxtdbce department patient visitJoint Township District Memorial Hospitaltart: 01-21-2024 End: 75-57-7655Arqrllljn department patient visitJoint Township District Memorial Hospitaltart: 12-31-2023 End: 52-42-8123hdxwnlohdrByizxnnakGreene Memorial Hospital Work Phone: Start: 12-31-2023 End: 12-27-9757Ugupgnp encounter procedureCarolinas [facility] Physician GroupTogus [facility] Medical Center Work Phone: Start: 12-15-2023 End: 53-33-8894cbtoursddoIpsruermyGreene Memorial Hospital Work Phone: Start: 12-15-2023 End: 45-20-7361Ipqvwpz encounter procedureCar[facility] Physician [facility] Work Phone: Start: 12-09-2023 End: 77-76-4191xvxrqwkprgYjukjvqtyOhioHealth [facility] Work Phone: Start: 12-09-2023 End: 28-29-1157Fpxcegs encounter procedureCar[facility] Physician [facility] Work Phone: Start: 11-09-2023 End: 72-71-5087yqrzoflxwaFZXV Jennifer Rohrbacher Work Phone: [facility] Work Phone: Start: 11-09-2023 End: 90-66-4725Rgnwcyo encounter procedureREUBEN Diaz Work Phone: [facility] Physician [facility] Work Phone: Start: 10-22-2023 End: 56-01-2560idwxtlesysKFLY Jennifer Rohrbacher Work Phone: [facility] Work Phone: Start: 10-22-2023 End: 21-54-7105Fmlckmt encounter procedureREUBEN Diaz Work Phone: [facility] Work Phone: Start: 10-12-2023 End: 23-23-0448ixsiysbzgvVDQJ Jennifer Rohrbacher Work Phone: [facility] Work Phone: Start: 10-12-2023 End: 14-23-7093Tyepgiq encounter procedureAPRQueta Diaz Work Phone: [facility] Physician [facility] Work Phone: Start: 09-24-2023 End: 42-72-9852Agpqggd encounter procedureAPRQueta Diaz Work Phone: [facility] Work Phone: Start: 09-10-2023 End: 70-07-4422Pwfxzmj encounter procedureREUBEN Diaz Work Phone: [facility] Work Phone: Start: 08-27-2023 End: 24-12-2188tsfyjdkfasVJUO Jennifer Rohrbacher Work Phone: [facility] Work Phone: Start: 08-27-2023 End: 94-30-5907Jcqfcnn encounter procedureREUBEN Diaz Work Phone: [facility] Work Phone: Start: 08-19-2023 End: 70-93-3535tyhcnocmnwBAYL Jennifer Rohrbacher Work Phone: [facility] Work Phone: Start: 08-19-2023 End: 59-91-2904Crirogc encounter procedureREUBEN Diaz Work Phone: [facility] Phys[facility] GroupMARLTON [facility] Work Phone: Start: 08-13-2023 End: 30-37-3772Asilbrv encounter procedureDO [facility] Work Phone: [facility] [place] Work Phone: Start: 08-13-2023 End: 96-85-5091heqiepetlmIS [facility] Work Phone: [facility] Work Phone: Start: 08-13-2023 End: 63-76-7341vzrbradwigER [facility] Work Phone: [facility] Work Phone: Start: 08-13-2023 End: 42-62-2819Mlzotgc encounter procedureDO Baljit Pisano Work Phone: [facility] Work Phone: Start: 91-21-7062Qfv-patient / Non-visitDO Baljit Pisano Work Phone: [facility] palestinej Physician [facility] Work Phone: Start: 07-21-2023 End: 62-82-8202Sefjed outpatient new 30 minutesMagalie COFFEY Work Phone: [facility] RheumatologyComment on above: Positive TENA (antinuclear antibody) (Primary Dx); Chronic fatigue; Pain in both hands; Bilateral carpal tunnel syndromeStart: 31-55-1690Vlz-patient / Non-visitDO Baljit Pisano Work Phone: [facility] Work Phone: Start: 07-07-2023 End: 55-65-8751Bfhsyph encounter procedureDO Baljit Pisano Work Phone: [facility] Work Phone: Start: 05-26-2023 End: 57-23-0204wjtvwmuuxuImbo Asaad Other [facility] Other Start: 03-45-9116Gfwniu outpatient visit 25 minutes Imad AsaadFPG GastroenterologyStart: 05-26-2023 End: 74-33-9538Pvnmfog encounter procedureDO Baljit Pisano Work Phone: [facility]ician Group-Start: 05-19-2023 End: 67-84-5275Dcnfaoc encounter procedureDO Baljit Pisano Work Phone: [facility] Work Phone: Start: 05-19-2023 End: 57-21-8542yhveprbeeqYU Baljit Pisano Work Phone: [facility] Work Phone: Start: 04-29-2023 End: 31-26-4543lljomhgiqrLPQCFDU P HOUSEFacility:[facility] ClinicStart: 04-27-2023 End: 60-41-1118kkrkbcanylZqga Asaad Other [facility] Other Start: 86-54-0790Ksytujvfk encounterImad AsaadFPG GastroenterologyStart: 04-21-2023 End: 14-40-9121Qnvimbd encounter procedureDO Baljit Pisano Work Phone: [facility] [place] Work Phone: Start: 04-21-2023 End: 10-33-1971fedqvnboavQP Baljit Pisano Work Phone: [facility] Work Phone: Start: 76-10-5229Rdybhw outpatient new 45 minutesImad AsaadFPG GastroenterologyStart: 04-07-2023 End: 20-09-5393dhjcxjfhwrPFEJVKJ P HOUSEFacility:[facility] ClinicStart: 04-01-2023 End: 53-38-3756vqkgaigdvsNU Baljit Pisano Work Phone: [facility] Work Phone: Start: 04-01-2023 End: 86-07-7419Rvleyhb encounter procedureDO Baljit Pisano Work Phone: [phone]-[facility] Work Phone: Start: 03-23-2023 End: 03-85-6752gzgejimrxaJbpd Asaad Other [facility] Other Start: 70-56-3163Gvjwivojx encounterImad AsaadFPG GastroenterologyStart: 40-81-2484Hmaqpx outpatient new 45 minutesImad AsaadFPG GastroenterologyStart: 03-19-2023 End: 63-38-9538jddxbjwljyTX Baljit Pisano Work Phone: [facility] Other Start: 03-19-2023 End: 70-30-2142Tffaobs encounter procedureDO Baljit Pisano Work Phone: [facility] [place] Work Phone: Start: 02-12-2023 End: 33-65-8454oactlglosmFEPELVR P HOUSEFacility:[facility] HospitalStart: 01-28-2023 End: 96-44-2943jlmrivstumLESVRPT P HOUSEFacility:[facility] ClinicStart: 01-09-2023 End: 44-98-0959kythxakgjePKWFFON P HOUSEFacility:[facility] HospitalStart: 01-07-2023 End: 18-77-5885fidlvdeyrhEDQRCNZ P HOUSEFacility:[facility] ClinicStart: 12-31-2022 End: 25-03-5990kxnvkdcqasUZJLNSX P HOUSEFacility:[facility] HospitalStart: 12-30-2022 End: 80-39-8516gzucvehnbkQjzmqa G Cadigan MDFacility:[facility] ClinicStart: 09-19-2022 End: 36-49-6678jdvxmrfsqkLA CHARLES HOUSEFacility:H7Bavsq: 09-15-2022 End: 16-28-4749qprdttqtlxSO CHARLES HOUSEFacility:M9Ohaxv: 07-03-2022 End: 83-68-8052csnvbnnwpzLZ CHARLES HOUSEFacility:P0Gupgg: 02-04-2022 End: 52-16-6471exvowibyzdDhlrq Keller Other [facility] Other Start: 42-84-8659Nnnxci outpatient new 30 minutesAmbzelalem [facility] ClydeStart: 12-25-2017 End: 89-38-6023Jchzlhr encounterCHARLES P HOUSENationTrumbull Regional Medical Center's [facility] Procedures DateProcedureProcedure DetailPerforming ClinicianStart: 03-22-2024 EsophagogastroduodenoscopyJennmaryana Diaz APRN Work Phone: Start: 75-99-7866Cjilyuzcvwe of thoracic spineDO Baljit Pisano Work Phone: Start: 50-12-3423L-ray of both kneesDO Baljit Pisano Work Phone: Start: 03-92-0016Lrgxguvcta elastography of liverDO Baljit Pisano Work Phone: Plan of Treatment DateCare ActivityDetailAuthorStart: 67-67-8719JTnX,Tdap and Td Vaccines (8 - Td or Tdap)DTaP,Tdap and Td Vaccines (8 - Td or Tdap)[facility] Health SystemStart: 88-30-6439Bpoii BMI ScreeningAdult BMI ScreeningProMckitrick Hospitalca Health SystemStart: 19-90-4566Qbloyvj ScreeningTobacco ScreeningGrace Cottage HospitalMedica Health SystemStart: 85-32-6165Mtokl BMI ScreeningAdult BMI ScreeningProMedica Health SystemStart: 00-53-4627Erbgqdl ScreeningTobacco ScreeningProMedica Health SystemStart: 75-38-3003Tvcot BMI ScreeningAdult BMI ScreeningProMedica Health SystemStart: 89-64-4299Mkojygx ScreeningTobacco ScreeningProMedica Health SystemStart: 49-93-2024Jveymyk ScreeningTobacco ScreeningProMedica Health SystemStart: 57-65-4658DCjR,Tdap and Td Vaccines (7 - Td or Tdap)DTaP,Tdap and Td Vaccines (7 - Td or Tdap)[facility] Health SystemStart: 89-70-7073Rapru BMI ScreeningAdult BMI ScreeningProMedica Health SystemStart: 81-16-1743Ynmejtn ScreeningTobacco ScreeningProMedica Health SystemStart: 02-55-8080Ijhcg BMI ScreeningAdult BMI ScreeningProMedica Health SystemStart: 32-88-2114Irslple ScreeningTobacco ScreeningProMedica Health SystemStart: 45-41-5464Lgyif BMI ScreeningAdult BMI ScreeningProMedica Health SystemStart: 39-02-6962Fgesazu ScreeningTobacco ScreeningSt. John of God Hospital SystemStart: 03-13-2025 End: 10-86-7148Jksamrk encounter vvyqptffz39/03/2025 10:30 AM EST Office Visit [facility] [address] [place] [address] Franci Byrd, CLOTH CALENDER-MANAGER MATERIAL [address] [place] [address] [facility] SurgeryStart: 02-13-2025 End: 73-69-6229Mmnqmwd encounter cnudrsrty31/06/2025 10:15 AM EDT Office Visit [facility] [address] [place] [address] Franci Byrd, CLOTH CALENDER-MANAGER MATERIAL [address] [place], [place] [id number] [facility] General SurgeryStart: 14-33-1954Diwde BMI ScreeningAdult BMI ScreeningSt. John of God Hospital SystemStart: 42-51-6643Xxdzklp ScreeningTobacco ScreeningWilson Medical Centertart: 01-24-2025 End: 36-01-8515Tuswdvf encounter kezuucecr23/16/2025 9:30 AM EDT Office Visit [facility] [address] [place] [address] Gail Shell MD [address] [place] [address] [facility] Genito-Urinary SurgeonsStart: 01-16-2025 End: 76-71-4956Rlxakrx encounter pjfxaijrs14/08/2025 9:30 AM EDT Office Visit [facility] [address] [place], [id number] Franci Byrd, CLOTH CALENDER-MANAGER MATERIAL [address] [place] [address] [facility] SurgeryStart: 01-11-2025 End: 33-89-7816Jbwwqly encounter bjhajhbqd26/03/2025 10:30 AM EDT Office Visit [facility] [address] [place] [address] [place] [address], [place] [phone] Gail Shell MD [address] [place] [address] [facility] Genito-Urinary SurgeonsStart: 69-36-1352Ackadsinz vaccinationInfluenza VaccineSt. John of God Hospital SystemStart: 01-02-2025 End: 77-07-0069Tqiasqqmr to same day surgery teqlzf0401/02/2025 10:00 AM EDT - 01/02/2025 11:00 AM EDT Surgery [facility] Surgery [address] [place] [address] Belen Langston MD [address] [place] [address] EXCISION CYST PILONIDAL [14472 (CPT )][facility] Surgery Comment on above:EXCISION CYST PILONIDAL [84484 (CPT )]Start: 01-02-2025 End: 46-97-4838Dcdbsmsrtu qlfqekmmiavq16/25/2025 10:00 AM EDT Anesthesia Event [facility] Surgery [address] [place], [place] [id number] Balaji Castelan, DO [address] [facility] [place] [address] [facility] Surgery Start: 01-02-2025 End: 13-71-3580Vdoekzkz pilonidal cyst/sinus simpleEXCISION CYST PILONIDAL pilonidal cyst 01/02/2025 10:00 AM EDTFREMONT SURGERYStart: 91-54-5816Lgueggdffe hospital visit by auqpglwew19/25/2025 10:00 AM EDT Hospital Encounter [facility] - Surgery [address] [place] [address] Belen Langston MD [address] [place] [address] [facility] - SurgeryStart: 12-13-2024 End: 12-51-4047Nlxoinc encounter ojmmuagkz22/05/2025 8:15 AM EDT Procedure visit [facility] - Pre Admit [address] [place] [address] [facility]elCvytdmProvidence [facility] AdmitStart: 60-81-8865Fgxehme referralSumma Health [facility] Work Phone: Start: 46-65-0840Fkpfs BMI ScreeningAdult BMI ScreeningSt. John of God Hospital SystemStart: 46-56-0834Ujnbneg ScreeningTobacco ScreeningWilson Medical Centertart: 24-57-9737JfsglvblhMemorial Hospitaltart: 03-08-2024 End: 96-75-5952Nwieoyh encounter hpntlayml49/29/2024 8:30 AM EDT Office Visit [facility] [address] [place], [place] Belen Langston MD [address] [place] [address] [facility] SurgeryStart: 54-59-7734Iqwqtsi referralSumma Health [facility] Work Phone: Start: 48-38-2073Emwvbujbl vaccinationInfluenza VaccineSt. John of God Hospital SystemStart: 10-22-2023 End: 66-86-2642Bgirmaxemqmb consultation with riwsrai0110/22/2023 9:30 AM EDT Telemedicine [facility] [address] [place] [address] Magalie Cox PA [address] [facility] [address] [place] [address] [facility] RheumatologyStart: 94-87-2445Yxlyzyg referralUniversity Hospitals St. [facility] Work Phone: Start: 95-30-9126Fwrqvmy [Units/volume] in Serum or PlasmaMemorial Hospitaltart: 07-21-2023 End: 65-33-1970TJOJWD Neurology Routine Pain in both hands Bilateral carpal tunnel syndrome Expected: 07/21/2023 (Approximate), Expires: 07/20/2024[facility] Work Phone: comment on above:Expected: 07/21/2023 (Approximate), Expires: 07/20/2024Start: 07-21-2023 End: 39-83-8746MO [employer] Survey ViewsProOhio Valley Surgical Hospital SystemComment on above:Expected: 07/21/2023, Expires: 07/20/2024Start: 79-17-0223Pnkvfbnji complement CH50 levelMemorial Hospitaltart: 99-64-2133ZAM antibody measurementMemorial Hospitaltart: 03-96-4078DamszvwyzMemorial Hospitaltart: 05-03-9104VrlmiifbmMemorial Hospitaltart: 73-53-3213Remrhivwv vaccinationInfluenza VaccineProOhio Valley Surgical Hospital SystemStart: 57-36-1236Fbohx BMI Follow Up PlanAdult BMI Follow Up PlanSt. John of God Hospital SystemStart: 65-03-6477Tqcycanjsx ScreeningDepression ScreeningSt. John of God Hospital SystemActin smooth muscle IgG Ab [Units/volume] in SerumSycamore Medical CenterAlpha 1 antitrypsin [Mass/volume] in Serum or PlasmaSycamore Medical CenterAlpha 1 antitrypsin phenotyping [Identifier] in Serum or Plasma by ImmunofixationSycamore Medical CenterCeruloplasmin [Mass/volume] in Serum or PlasmaSycamore Medical CenterCT Abdomen and Pelvis WO and W contrast [facility] WO and W contrast [facility] DaytonExcision spermatocele w/wo epididymectomySPERMATOCELECTOMY SpermatoceleTOLEDO SURGERYFibrillarin Ab [Presence] in [facility] HospitalHemoglobin.gastrointestinal [Presence] in StoolSycamore Medical CenterHepatitis A virus antibody, IgM typeSycamore Medical CenterHelittle company of [facility] B core antibody measurement [facility] B core antibody measurement, IgM type [facility] CenterHel[facility] B virus DNA [#/volume] (viral load) in Serum or Plasma by GITA with probe detectionSycamore Medical Center Hepatitis B virus DNA [log units/volume] (viral load) in Serum or Plasma by GITA with probe detectionSycamore Medical CenterHelittle [facility] B virus DNA [Units/volume] (viral load) in Serum or Plasma by GITA with probe detection [facility] CenterHel[facility] B virus surface Ab [Presence] in [facility] B virus surface Ab [Units/volume] in [facility]Hel[facility] B virus surface Ag [Presence] in Serum or Plasma by ImmunoassaySycamore Medical CenterHelittle [facility] C virus IgG Ab [Presence] in Serum or Plasma by ImmunoassaySycamore Medical CenterHFE gene mutations found [Identifier] in Blood or Tissue by Molecular genetics method NominalSycamore Medical CenterHomogenous nuclear Ab pattern [Titer] in [facility] HospitalIgG [Mass/volume] in Serum or PlasmaSycamore Medical CenterLipoprotein a [Moles/volume] in Serum or PlasmaSycamore Medical CenterMitochondria M2 IgG Ab [Units/volume] in [facility] HospitalNuclear Ab [Titer] in [facility] Patient EducationHemorrhoids (DC) Esophagitis Know your [facility] Work Phone: [facility] Work Phone: PM-SCL extractable nuclear Ab [Mass/volume] in Serum by Immune diffusion (ID)[facility]ore Medical CenterRNA polymerase III IgG Ab [Units/volume] in Serum or Plasma by ImmunoassaySycamore Medical CenterTh-To Ab [Units/volume] in Serum by Line [facility] End: 80-26-1460Mdyhhbvl Procedure / SurgeryUnlisted Procedure / Surgery Procedures Routine Pilonidal disease 1 Occurrences starting 11/29/2024until 11/29/2025[facility] Work Phone: Comment on above:1 Occurrences starting 11/29/2024 until 11/29/2025XR Ribs - right ViewsLompoc Valley Medical Center Immunizations Immunization DateImmunizationNotesCare GghgcfmwOeashgbj23-61-2855qnkaolxznacun oligosaccharide (groups A, C, Y and W-135) diphtheria toxoid conjugate vaccine (MCV4O)DO [facility] Work Phone: [phone]08-26-2016 meningococcal oligosaccharide (groups A, C, Y and W-135) diphtheria toxoid conjugate vaccine (MCV4O)DO [facility] Work Phone: [phone]08-26-2016tetanus toxoid, reduced diphtheria toxoid, and acellular pertussis vaccine, adsorbedAPRN Leatha Diaz Work Phone: [facility]09-10-2015 meningococcal oligosaccharide (groups A, C, Y and W-135) diphtheria toxoid conjugate vaccine (MCV4O)DO [facility] Work Phone: [facility]09-10-2015tetanus toxoid, reduced diphtheria toxoid, and acellular pertussis vaccine, adsorbedAPRN Leatha Diaz Work Phone: [facility]08-21-2014poliovirus vaccine, inactivatedDO [facility] Work Phone: [facility]03-12-2014diphtheria, tetanus toxoids and acellular pertussis vaccineDO [facility] Work Phone: [facility]03-12-2014hepatitis A vaccine, pediatric/adolescent dosage, 2 dose scheduleDO [facility] Work Phone: [phone] [place], [place] 1500112-06-2013hepatitis B vaccine, pediatric or pediatric/adolescent dosageDO [facility] Work Phone: [phone]12-06-2013poliovirus vaccine, inactivatedDO [facility] Work Phone: [phone] [place], [place] 9814412-06-2013varicella virus vaccineDO [facility] Work Phone: [phone] [place], [place] 7043309-09-2013diphtheria, tetanus toxoids and acellular pertussis vaccineDO [facility] Work Phone: [phone] [place], [place] 9814409-09-2013hepatitis B vaccine, pediatric or pediatric/adolescent dosageDO [facility] Work Phone: [phone] [place], [place] 7043309-09-2013measles, mumps and rubella virus vaccineDO [facility] Work Phone: [phone] [place], [place] 7043309-09-2013poliovirus vaccine, inactivatedDO [facility] Work Phone: [phone] [place], [place] 7043308-20-2013hepatitis A vaccine, pediatric/adolescent dosage, 2 dose scheduleDO [facility] Work Phone: [phone] [place], [place] 7043308-06-2013diphtheria, tetanus toxoids and acellular pertussis vaccineDO [facility] Work Phone: [phone]08-06-2013hepatitis B vaccine, pediatric or pediatric/adolescent dosageDO [facility] Work Phone: [phone]08-06-2013measles, mumps and rubella virus vaccineDO [facility] Work Phone: [phone] [place], [place] 1500108-06-2013poliovirus vaccine, inactivatedDO [facility] Work Phone: [phone]08-06-2013varicella virus vaccineDO [facility] Work Phone: [phone] [place], [place] 1500105-06-2004diphtheria, tetanus toxoids and acellular pertussis vaccine, unspecified formulationDO [facility] Work Phone: [facility]05-06-2004haemophilus influenzae type b conjugate and Hepatitis B vaccineDO [facility] Work Phone: [facility]05-06-2004 pneumococcal conjugate vaccine, 7 valentDO [facility] Work Phone: [facility]05-06-2004poliovirus vaccine, inactivatedDO [facility] Work Phone: [facility] Payers DatePayer CategoryPayerPolicy [id number] Care - OtherANTH Member Subscriber Plan / Payer (Effective 2024-Present) Name: Jet Duncan Relation to Subscriber: Self Name: Jet Duncan Payer ID: [id number] (NAIC) Type: Not on file Address: [address] [id number] [id number] of Defense ( and others)[id number] of Defense ( and others)[id number] Department of Defense ( and others)[id number] of Defense ( and others) [facility] [id number] 05/11/2017-Present [phone] [address] [place] [address] 1.2.840.213373.1.13.424.2.7.3.898400.77195-22-2171Qkqlwqjzvo of Defense ( and others)[id number] of Defense ( and others)[id number] 2.16.840.1.006664.3.57[id number] 2.16840.1.164875.3.57[id number] 2.16840.1.429369.3.57[id number] 2.16.840.1.881467.3.57[id number] 2.16.840.1.761520.3.57[id number] 2.16.840.1.793136.3.57[id number] 2.16840.1.739314.3.57[id number] 2.16.840.1.459893.3.57[id number] 2.16.840.1.096076.3.57[id number] 2.16.840.1.237378.3.579.[id number] 2.16840.1.125796.3.57[id number] 2.16.840.1.898371.3.579.2.[id number] 2.16.840.1.335520.3.57[id number] 2.16.840.1.743408.3.579.[id number] 2.16.840.1.825562.3.57[id number] 2.16.840.1.109859.3.579.[id number] 2.16840.1.704484.3.579.[id number] 2.16840.1.862545.3.579.2.50[id number] 2.16840.1.905781.3.57[id number] 2.840.1.890869.3.579.2.[id number] 2.16840.1.677704.3.57[id number] 2.840.1.272211.3.57[id number] 2.16.840.1.944380.3.57[id number] 2.16.840.1.882224.3.57[id number] 2.16.840.1.883395.3.57[id number] 2.16840.1.626261.3.579.2.2[id number] 2.0.1.826001.3.579.[id number] 2.0.1.020891.3.57[id number] 2..1.185122.3.579.2.11[id number] 2..1.824169.3.579.[id number] 2..1.104357.3.579.2.08[id number] 2..1.364343.3.579.2.967349-25-8696Psbqbbs46918946 2..1.707307.3.579.2.313693-39-0200Pwtlrmonff of Defense ( and others)[id number] of Defense ( and others)[id number] [id number] 2..1.1[id number] 2.1.616426.3.579.2.093Reewmof13404967 2.1.471214.3.579.2.531 [id number] 2.1.112574.3.579.2.531Worker's Comp Other Managed Care [place] 1.2.840.723136.1.13.424.2.7.9.558813.313.315 Social History DateTypeDetailFacilityUnknown if ever smokedNorth Q Medical Centers Other Start: 06-21-2020 End: 09-10-3270Gzu Assigned At BirthSt. John of God Hospital SystemStart: 92-71-7395Ztc Assigned At BirthMalProtestant Deaconess Hospitaltart: 02-20-2022 End: 22-27-5501Bnbfeto smoking status NHISNever smoked tobacco (finding) [facility]: 12-14-2014 End: 30-60-6544DewPoub (finding)[facility] Hospitaltart: 72-68-8051Aysjrew use and exposureSmokeless tobacco non-userSt. John of God Hospital SystemStart: 07-21-2023 End: 52-38-4571Fufcebi intakeEx-drinker (finding)[facility] Centertart: 06-21-2020 End: 85-01-9203Fvqzktx of Social functionSt. John of God Hospital SystemChildcareUnknown [facility] Centertart: 26-04-4970Oht Assigned At BirthNot on file [facility] Centertart: 01-26-2024 End: 30-70-9471Yclgvufse beverage intakeCurrent drinker of alcohol (finding) [facility] Centertart: 90-40-5135Tppgegy CommentoccasionallyProKeenan Private HospitalTobacco smoking statusNo Smoking Status EnteredParma Community General Hospital Ham the [employer], gas, oil, or water company threatened to shut off services in your home in past 12MoNoProOhio Valley Surgical Hospital System Goals DatePatient GoalDesired Activity/StatePersonal health goal Functional Status EdkrKrfsrsdsugCfsbspMnqltiif12-91-5147Ijqrinnvch StatusN/AFMercy Health St. [facility] Clinical Notes 02-04-2022 to 02-13-2025 Note Date & GsafTxazIqaamozh61-93-9428 History of Present illness Narrative* FranciJESSICA Lucero - 02/13/2025 10:15 AM EDT Images from the original note were not included. Subjective Jet Duncan is a 19 y.o. male status post excision of pilonidal disease on 01/02/2025. That has been packing the wound as instructed. He denies fever and chills. He denies purulent drainage. 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 Objective Vitals: 02/13/25 1006 BP: 125/77 Pulse: 106 Physical Exam Constitutional: General: He is not in acute distress. Appearance: Normal appearance. He is not ill-appearing. HENT: Head: Normocephalic and atraumatic. Mouth/Throat: Mouth: Mucous membranes are moist. Eyes: Pupils: Pupils are equal, round, and reactive to light. Cardiovascular: Rate and Rhythm: Normal rate. Pulmonary: Effort: Pulmonary effort is normal. No respiratory distress. Abdominal: Comments: Intergluteal cleft incision with beefy red tissue, no surrounding erythema, no purulent drainage. Healing appropriately. Packed with half-inch plain packing strips. Musculoskeletal: General: Normal range of motion. Skin: General: Skin is warm and dry. Neurological: Mental Status: He is alert and oriented to person, place, and time. Mental status is at baseline. Assessment Jet Duncan is a 19 y.o.male postop excision of pilonidal disease. Plan Continue dressing changes. Pack less each time to promote closure. Continue warm water soaks. Follow up in 1 month. Pilonidal disease [L98.8] JESSICA URIARTE [facility] [place] This note was created with the assistance of a speech recognition program. While intending to generate a timely document that accurately reflects the content of the visit, no guarantee can be provided that every grammatical or spelling mistake has been or will be identified or corrected. Thank you for your understanding. JESSICA Uriarte 02/13/25 1026 documented in this encounterKnox Community Hospital09-16-2025 Miscellaneous Notes* Telephone Encounter - Gail Shell MD - 01/24/2025 11:09 AM EDT Please schedule for right spermatocele ectomy, general, 90 minutes documented in this encounterKnox Community Hospital09-16-2025 Telephone encounter Note* Telephone Encounter - Gail Shell MD - 01/24/2025 11:09 AM EDT Please schedule for right spermatocele ectomy, general, 90 minutes [facility]09-16-20[facility] History of Present illness Narrative* Gail Shell MD - 01/24/2025 10:30 AM EDT Images from the original note were not included. [address] [facility] [address] Patient: Jet Duncan Date of : 2005 Encounter Date: 01/24/2025 History of Present Illness: Chief Complaint: surgical discussion The patient is a 19 y.o. male, an established patient, and is here for epididymal cyst. Causes painwhen walking or has his legs close together. Summary of old records: The patient is a 19 y.o. male, a new patient, and is here for ER follow up. Patient was seen on ER 12/30/2024 with complaints of right testicular pain. Scrotal ultrasound showed no evidence of testicular torsion or mass, complex right epididymal cyst measuring 1.0 cm, small complex right hydrocele. UA negative. He was discharged with referral to Urology Patient states he was at work as if tension on his scrotum. He noticed some right testicular swelling. He says he has near constant pain in the right testicle. He is currently taking 800 mg ibuprofenPRN pain for pilonidal cyst removal 12/30/2024. He reports no change in testicular symptoms with this He notes walking makes the pain much worse as he thinks it is due to his legs rubbing together. Pain is relieved slightly when he lays down in his able to spread his legs apart. Urinalysis today: No results for input(s): EXTPOCURCO , EXTPOCURCH , EXTPOCAPP , EXTPOCURBS , EXTPOCURBIL , EXTPOCUKET , EXTPOCUSPG , EXTPOCUHGB , EXTPOCUPRO , EXTPOCUURO , EXTPOCULEU , EXTPOCUNIT , EXTPOCUWBC , EXTPOCUBLD , EXTPOCURBC , EXTPOCUCRY , EXTPOCUBAC , EXTPOCUTREP , EXTPOCUPH , EXTPOCUL EE in the last 72 hours. Last BUN and creatinine: Lab Results Component Value Date BUN 14 12/15/2024 Lab Results Component Value Date CREATININE 0.96 12/15/2024 Last PSA: No results found for: PSA No results found for: PROSTATICSP Additional Lab/Culture results: None Imaging Reviewed during this Office Visit: None (Results were independently reviewed by physician and radiology report verified) Past Medical, Family, and Social History Update: The following portions of the patient's history were reviewed and updated as appropriate: allergies, current medications, past family history, past medical history, past social history, past surgicalhistory and problem list. Past Medical History: Diagnosis Date Anxiety Bipolar disorder ([facility]) Depression Fibromyalgia Fibromyalgia, primary Fractures Headache Liver disease fatty liver Mood disorder Sleep apnea does not use a cpap URI, acute 07/03/2024 Visual impairment Past Surgical History: Procedure Laterality Date COLONOSCOPY ESOPHAGOGASTRODUODENOSCOPY EXCISION CYST PILONIDAL N/A 01/02/2025 Performed by Belen Langston MD at [facility] LAPAROSCOPIC APPENDECTOMY N/A 02/20/2022 Performed by Dean Atkins DO at [facility] Family History Problem Relation Age of Onset Heart disease Mother Thyroid disease Mother Fibromyalgia Mother No Known Problems Father Heart disease Maternal Grandmother Thyroid disease Maternal Grandmother Cancer Maternal great-grandfather Lung cancer Maternal great-grandfather Current Outpatient Medications Medication Sig Dispense Refill ARIPiprazole (ABILIFY) 5 mg tablet Take 1 tablet (5 mg total) by mouth in the morning. 90 tablet 1 ibuprofen (MOTRIN) 800 mg tablet Take 1 tablet (800 mg total) by mouth every 8 (eight) hours as needed for pain. 30 tablet 0 sertraline (ZOLOFT) 100 mg tablet Take 1 tablet (100 mg total) by mouth in the morning. No current facility-administered medications for this visit. (All medications reviewed and updated by provider since last office visit or hospitalization) Allergies: Penicillins Tobacco History: Social History Tobacco Use Smoking Status Never Smokeless Tobacco Never (If patient a smoker, smoking cessation counseling offered) Social History: Social History Substance and Sexual Activity Alcohol Use Yes Comment: occasionally Review of Systems: General: Negative for chills and fever. Cardiovascular: Negative for chest pain and shortness of breath. Gastrointestinal: Negative for constipation, diarrhea, nausea, and vomitting. -per HPI Physical Exam: BP 134/90 (BP Site: Left Arm, BP Postition: Sitting) Pulse 111 Ht 182.9 cm (6') Wt (!) 202.3 kg (446 lb) BMI 60.49 kg/m General: AAOx3 Psych: normal mood and affect HEENT normal Lungs: Respiratory effort normal Cardiovascular: Normal peripheral pulses Abdomen: Soft, non-tender, non-distended. No CVA TTP Skin: Warm and dry MSK: FROM Neuro: CN II-XII grossly intact Right epididymal head cyst mobile a proximally 1 cm. Tenderness to palpation Assessment and Plan: Jet was seen today for surgical discussion. Diagnoses and all orders for this visit: Epididymal cyst Problem List Epididymal cyst - Primary Overview 01/24/25 Discussed risks benefits complications of surgery. Patient risk factors include obesity. Understands we would like to proceed. 01/11/25 Interested in surgical removal of cyst. Therefore, we will schedule him with Dr. Shell for further discussion. He declined exam today. Will defer to Dr Shell. I recommend ice, elevation, Nsaids for pain Follow-up: Moderate MDM Acute problem requiring intervention Minor surgery with risk factors Spermatocele ectomy. Gail Shell MD This note was created with the assistance of a speech recognition program. While intending to generate a timely document that accurately reflects the content of the visit, no guarantee can be provided that every grammatical or spelling mistake has been or will be identified or corrected. Thank you for your understanding. documented in this encounterKnox Community Hospital09-11-2025 Miscellaneous Notes* Telephone Encounter - Bere DangTARA - 01/19/2025 2:17 PM EDT Called patient, received disability forms from [employer]. Unable to make contact with patient, left voicemail message for patient to call our office back. Disability forms were filled out and sent back on 01/03/25. The forms we received are the same formsthat have already been completed and mailed to the patients home address. Patient is off work starting 01/02/25 - 02/13/25, with return back to work date of 02/14/25. Need to speak to patient to ensure work restrictions are still unavailable for his employer. * Telephone Encounter - Bere DangTARA - 01/19/2025 2:17 PM EDT Called patient, received disability forms from [employer]. Unable to make contact with patient, left voicemail message for patient to call our office back. Disability forms were filled out and sent back on 01/03/25. The forms we received are the same formsthat have already been completed and mailed to the patients home address. Patient is off work starting 01/02/25 - 02/13/25, with return back to work date of 02/14/25. Need to speak to patient to ensure work restrictions are still unavailable for his employer. documented in this encounterKnox Community Hospital09-11-2025 Telephone encounter Note* Telephone Encounter - Bere TARA Dang - 01/19/2025 2:17 PM EDT Called patient, received disability forms from [employer]. Unable to make contact with patient, left voicemail message for patient to call our office back. Disability forms were filled out and sent back on 01/03/25. The forms we received are the same formsthat have already been completed and mailed to the patients home address. Patient is off work starting 01/02/25 - 02/13/25, with return back to work date of 02/14/25. Need to speak to patient to ensure work restrictions are still unavailable for his employer. [facility]09-11-20[facility] Telephone encounter Note* Telephone Encounter - Bere RmTARA arellano - 01/19/2025 2:17 PM EDT Called patient, received disability forms from [employer]. Unable to make contact with patient, left voicemail message for patient to call our office back. Disability forms were filled out and sent back on 01/03/25. The forms we received are the same formsthat have already been completed and mailed to the patients home address. Patient is off work starting 01/02/25 - 02/13/25, with return back to work date of 02/14/25. Need to speak to patient to ensure work restrictions are still unavailable for his employer. [facility]09-08-2025 History of Present illness Narrative* Franci Byrd, CLOTH CALENDER-JAKE - 01/16/2025 9:30 AM EDT Subjective Jet Duncan is a 19 y.o. male status post excision of pilonidal disease on 01/02/2025. He reports an increased amount of pain for the first few days after surgery. He is not really having any pain now. He has been showering and running warm water over the area. His stepdad has been packing itas instructed. He reports yellow drainage. No fever. Objective Vitals: 01/16/25 0934 BP: 114/73 Pulse: 100 Physical Exam Constitutional: General: He is not in acute distress. Appearance: Normal appearance. He is not ill-appearing. HENT: Head: Normocephalic and atraumatic. Mouth/Throat: Mouth: Mucous membranes are moist. Eyes: Pupils: Pupils are equal, round, and reactive to light. Cardiovascular: Rate and Rhythm: Normal rate. Pulmonary: Effort: Pulmonary effort is normal. No respiratory distress. Abdominal: Comments: Intergluteal cleft incision with healthy-appearing tissue, no purulent drainage, no surrounding area erythema. Packed with half-inch packing strips. Clean dressing applied. Musculoskeletal: General: Normal range of motion. Skin: General: Skin is warm and dry. Neurological: Mental Status: He is alert and oriented to person, place, and time. Mental status is at baseline. Assessment Jet Duncan is a 19 y.o.male postop excision of pilonidal disease. Plan Take shower daily and let warm soapy water run over the area. Continue packing. Follow up in 4 weeks. Pilonidal disease [L98.8] JESSICA URIARTE [facility] [place] This note was created with the assistance of a speech recognition program. While intending to generate a timely document that accurately reflects the content of the visit, no guarantee can be provided that every grammatical or spelling mistake has been or will be identified or corrected. Thank you for your understanding. JESSICA Uriarte 01/16/25 0952 documented in this encounterKnox Community Hospital09-03-2025 History of Present illness Narrative* JESSICA Holder - 01/11/2025 10:30 AM EDT Images from the original note were not included. [address] [facility] [address] [address] Patient: Jet Duncan Date of : 2005 Encounter Date: 01/11/2025 History of Present Illness: Chief Complaint: Chief Complaint Patient presents with New Patient [facility] Er fu Epididymal cyst// Right hydrocele// [employer] The patient is a 19 y.o. male, a new patient, and is here for ER follow up. Patient was seen on ER 12/30/2024 with complaints of right testicular pain. Scrotal ultrasound showed no evidence of testicular torsion or mass, complex right epididymal cyst measuring 1.0 cm, small complex right hydrocele. UA negative. He was discharged with referral to Urology Patient states he was at work as if tension on his scrotum. He noticed some right testicular swelling. He says he has near constant pain in the right testicle. He is currently taking 800 mg ibuprofenPRN pain for pilonidal cyst removal 12/30/2024. He reports no change in testicular symptoms with this He notes walking makes the pain much worse as he thinks it is due to his legs rubbing together. Pain is relieved slightly when he lays down in his able to spread his legs apart. Summary of old records: Reviewed ER note 12/30/2024 Urinalysis today: No results for input(s): EXTPOCURCO , EXTPOCURCH , EXTPOCAPP , EXTPOCURBS , EXTPOCURBIL , EXTPOCUKET , EXTPOCUSPG , EXTPOCUHGB , EXTPOCUPRO , EXTPOCUURO , EXTPOCULEU , EXTPOCUNIT , EXTPOCUWBC , EXTPOCUBLD , EXTPOCURBC , EXTPOCUCRY , EXTPOCUBAC , EXTPOCUTREP , EXTPOCUPH , EXTPOCUL EE in the last 72 hours. Last BUN and creatinine: Lab Results Component Value Date BUN 14 12/15/2024 Lab Results Component Value Date CREATININE 0.96 12/15/2024 Last PSA: No results found for: PSA No results found for: PROSTATICSP Additional Lab/Culture results: None Imaging Reviewed during this Office Visit: None (Results were independently reviewed by physician and radiology report verified) Past Medical, Family, and Social History Update: The following portions of the patient's history were reviewed and updated as appropriate: allergies, current medications, past family history, past medical history, past social history, past surgicalhistory and problem list. Past Medical History: Diagnosis Date Anxiety Bipolar disorder (CMS-HCC) Depression Fibromyalgia Fibromyalgia, primary Fractures Headache Liver disease fatty liver Mood disorder Sleep apnea does not use a cpap URI, acute 07/03/2024 Visual impairment Past Surgical History: Procedure Laterality Date COLONOSCOPY ESOPHAGOGASTRODUODENOSCOPY EXCISION CYST PILONIDAL N/A 01/02/2025 Performed by Belen Langston MD at [facility] LAPAROSCOPIC APPENDECTOMY N/A 02/20/2022 Performed by Dean Atkins DO at [facility] Family History Problem Relation Age of Onset Heart disease Mother Thyroid disease Mother Fibromyalgia Mother No Known Problems Father Heart disease Maternal Grandmother Thyroid disease Maternal Grandmother Cancer Maternal great-grandfather Lung cancer Maternal great-grandfather Current Outpatient Medications Medication Sig Dispense Refill ARIPiprazole (ABILIFY) 5 mg tablet Take 1 tablet (5 mg total) by mouth in the morning. 90 tablet 1 ibuprofen (MOTRIN) 800 mg tablet Take 1 tablet (800 mg total) by mouth every 8 (eight) hours as needed for pain. 30 tablet 0 sertraline (ZOLOFT) 100 mg tablet Take 1 tablet (100 mg total) by mouth in the morning. No current facility-administered medications for this visit. (All medications reviewed and updated by provider since last office visit or hospitalization) Allergies: Penicillins Tobacco History: Social History Tobacco Use Smoking Status Never Smokeless Tobacco Never (If patient a smoker, smoking cessation counseling offered) Social History: Social History Substance and Sexual Activity Alcohol Use Yes Comment: occasionally Review of Systems: Constitutional: Normal activity and energy. Patient denies change in appetite, weight loss or gain,malaise (depression), chills, fever, or diaphoresis (sweating). Eyes: Patient denies vision changes or diplopia (double vision). Ears, Nose, Nose and Throat: Patient denies tinnitus (ringing in ears), hearing loss, epistaxis (nose bleed), hoarseness, and dysphagia (hard to swallow). Respiratory: Patient denies dyspnea (shortness of breath), cough, hemotypsis (blood in sputum), andwheezing. Cardiovascular: Patient denies chest pain, palpitations, and shortness of breath. Gastrointestinal: Patient denies abdominal pain, nausea, vomiting, bloating, diarrhea (chronic), constipation (chronic), melena (black stool), hematochezia (blood in stool). Musculoskeletal: Patient denies joint pain/stiffness, weakness, swelling, and backache. Neurologic: Patient denies weakness, dizziness, loss of consciousness, transient ischemic symptoms,and seizures. Integument: Patient denies rashes and non-healing lesions. Psychiatric: Patient denies increased nervousness, mood changes, or depression. Endocrine: Patient denies thyroid trouble, heat or cold intolerance, diabetes, excessive thirst, hunger, and excessive urination. Blood Disorders: Patient denies anemia, easy bruising, and easy bleeding. Physical Exam: BP 121/84 (BP Site: Right Arm, BP Postition: Sitting, BP CUFF SIZE: M (9-13 inches)) Pulse 90 Constitutional: He appears well-developed. No distress. HENT: Head: Atraumatic. Nose: Nose normal. Eyes: Conjunctivae are normal. Pulmonary/Chest: Effort normal. No respiratory distress. Abdominal: Soft. There is no tenderness. Neurological: He is alert and oriented for age. Gait normal. Skin: Skin is warm and dry. Psychiatric: He has a normal mood and affect. His speech is normal. Genitourinary: Deferred Nursing note and vitals reviewed. Assessment and Plan: Jet was seen today for new patient. Diagnoses and all orders for this visit: Epididymal cyst - [facility] - [place] Right hydrocele - [facility] - [place] Problem List Epididymal cyst - Primary Overview 01/11/25 Interested in surgical removal of cyst. Therefore, we will schedule him with Dr. Shell for further discussion. He declined exam today. Will defer to Dr Shell. I recommend ice, elevation, Nsaids for pain Follow-up: Dr Shell for surgical discussion JESSICA CONDE This note was created with the assistance of a speech recognition program. While intending to generate a timely document that accurately reflects the content of the visit, no guarantee can be provided that every grammatical or spelling mistake has been or will be identified or corrected. Thank you for your understanding. JESSICA Holder 01/12/25 0939 documented in this encounterKn[facility]08-29-[facility]25 Miscellaneous Notes* Telephone Encounter - Ese Reyna CMA - 01/06/2025 9:18 AM EDT ----- Message from Dean Atkins DO sent at 01/05/2025 11:26 AM EDT ----- Regarding: RE: Excision of Pilonidal Cyst Ibuprofen 800 sent to his pharmacy. Make sure he does not have any history of ulcers or gastritis. Thanks, Tylenol as [id number]. ----- Message ----- From: Ese Reyna CMA Sent: 01/05/2025 11:22 AM EDT To: Dean Atkins DO Subject: Excision of Pilonidal Cyst Dr. Claudio Dhaliwal excised this patient's pilonidal cyst on Thursday. He called stating the OTC tylenol was not helping. Would you be willing to call him in a prescription for Tylenol or Ibuprofen to help him? Please let me know. Thank you, Ese * Telephone Encounter - Ese Reyna CMA - 01/06/2025 9:18 AM EDT Left message for patient regarding prescription. * Telephone Encounter - Ese Reyna CMA - 01/06/2025 9:18 AM EDT Spoke with patient's mother Ranjith as she is an approved contact for [facility]. Informed her of the medication prescribed by Dr. Atkins. Ranjith verbally understood. documented in this encounterKn[facility]08-29-2025 Telephone encounter Note* Telephone Encounter - Ese Reyna CMA - 01/06/2025 9:18 AM EDT ----- Message from Dean Atkins DO sent at 01/05/2025 11:26 AM EDT ----- Regarding: RE: Excision of Pilonidal Cyst Ibuprofen 800 sent to his pharmacy. Make sure he does not have any history of ulcers or gastritis. Thanks, Tylenol as [id number]. ----- Message ----- From: Ese Reyna CMA Sent: 01/05/2025 11:22 AM EDT To: Dean Atkins DO Subject: Excision of Pilonidal Cyst Dr. Claudio Dhaliwal excised this patient's pilonidal cyst on Thursday. He called stating the OTC tylenol was not helping. Would you be willing to call him in a prescription for Tylenol or Ibuprofen to help him? Please let me know. Thank you, Ese [facility]08-29-2025 Telephone encounter Note* Telephone Encounter - Ese Reyna CMA - 01/06/2025 9:18 AM EDT Left message for patient regarding prescription. [facility]08-29-[facility] Telephone encounter Note* Telephone Encounter - Ese Reyna CMA - 01/06/2025 9:18 AM EDT Spoke with patient's mother Ranjith as she is an approved contact for [facility]. Informed her of the medication prescribed by Dr. Atkins. Ranjith verbally understood. [facility]08-26-2025 Miscellaneous Notes* Telephone Encounter - Eleanor Kruse CMA - 01/03/2025 9:00 AM EDT Jet called with concerns of some bleeding where he had an excision of a pilonidal cyst yesterday,01/03/25. I told him that some bleeding is normal, he can put a maxi-pad in that area. He is to call us if the color changes to yellow, or green, if the wound starts to smell, or becomes hot to the touch. He has no signs of infection at this time. documented in this encounterKnox [facility]08-26-2025 Telephone encounter Note* Telephone Encounter - Eleanor Kruse CMA - 01/03/2025 9:00 AM EDT Jet called with concerns of some bleeding where he had an excision of a pilonidal cyst yesterday,01/03/25. I told him that some bleeding is normal, he can put a maxi-pad in that area. He is to call us if the color changes to yellow, or green, if the wound starts to smell, or becomes hot to the touch. He has no signs of infection at this time. [facility]08-[facility] Miscellaneous Notes* Telephone Encounter - TARA Franklin - 12/30/2024 12:05 PM EDT Called patient to ask additional question regarding his disability/fmla forms. Unable to make contact with patient, left voicemail message for patient to call our office back. * Telephone Encounter - TARA Franklin - 12/30/2024 12:05 PM EDT Patient called back and questions were answered. Disability/FMLA forms were filled out and faxed toemployer. documented in this encounterKn[facility]08-22-2025 Telephone encounter Note* Telephone Encounter - TARA Franklin - 12/30/2024 12:05 PM EDT Called patient to ask additional question regarding his disability/fmla forms. Unable to make contact with patient, left voicemail message for patient to call our office back. [facility]08-[facility] Telephone encounter Note* Telephone Encounter - TARA Franklin - 12/30/2024 12:05 PM EDT Patient called back and questions were answered. Disability/FMLA forms were filled out and faxed toemployer. [employer]08-07-2025 Instructions* Patient Instructions* Kiera Inman RN - 12/15/2024 8:15 AM EDT Preoperative Education Checklist- General Surgery date: 01/02/25 Surgery time: 1000 a.m. Arrival time: 0800 a.m. 1. Bring a photo ID and your insurance card with you the day of surgery. You will check in at the main lobby of the [facility]- registration desk is straight ahead as soon as you walk in. Tell them you are here for surgery. 2. If you have a Living Will/Durable Power of Roll [employer]cer Machine for Health Care that is not on file here, please bring a copy the day of surgery. 3. Please shower/bathe the night before surgery with the provided soap or wipes. Do not shower the morning of surgery- you will do use wipes when you arrive here at the hospital before getting into your surgical gown. Do not shave the area of your procedure for 2 days prior to your surgery. 4. NO powder, lotion, perfume/cologne, aftershave, make-up, deodorant, or hair products after you have bathed. 5. NO nail beninese/acrylic on at least one finger. If you are having a hand, wrist or foot surgery then all nail beninese and artificial/acrylic nails must be removed from that hand or foot. 6. Avoid ALL Aspirin and non-steroidal anti-inflammatory drugs and certain vitamins (Ibuprofen, Advil, Aleve, Excedrin, Meloxicam, Celebrex, fish/krill oil, etc.) for 7 days prior to surgery as instructed by your surgeon and/or your prescribing doctor. Tylenol IS ALLOWED. If you are on Ticlid, Xarelto, Eliquis, Pradaxa, Plavix or Coumadin, please check with your prescribing doctor for instructions for when to stop them. 7. If you use an inhaler, continue to use it routinely. 8. Nothing to eat or drink (not even water, gum, mints, or hard candy!) AFTER midnight prior to your surgery. 9. Take only medications that you are instructed to on the morning of surgery with a TINY SIP OF WATER. 10. Choose a responsible adult that will be able to drive you home when you are discharged from your hospital stay for your surgery and can stay with you in your home for 24 hours after your procedure. You must NOT drive any vehicle or operate any machinery for 24 hours after surgery. 11. When you dress for your appointment, please wear loose fitting clothing that is appropriate to accommodate your surgical area procedure. BRING WITH YOU ANY DEVICES YOU MAY NEED: SEA hose, ice machine, sling/swath, brace or special shoe, oversized zip-up or button up shirt, CPAP machine if staying overnight. 12. Do NOT wear jewelry, watches, or any piercings or metal for surgery- leave these valuables and money at home. 13. Do NOT wear contact lenses for surgery- glasses are okay if needed. 14. The anesthesiologist will talk with you the day of surgery and will ask you to sign a Consent Form. 15. Refrain from smoking or any type of tobacco use for at least 8 hours and marijuana for 24 hoursprior to arrival for your surgery. 16. Notify your surgeon if you develop any illness before your surgery. 17. If you are staying overnight, please DO NOT BRING your home medications with you. 18. If you have any questions prior to surgery, please call the Preadmission Testing office at [phone], Mon.-Fri. 7 a.m.-3 p.m. Leave a voicemail if needed. Pre-Surgery Instructions: Medication Instructions ARIPiprazole (ABILIFY) 5 mg tablet Stop taking 0 days prior to procedure How to Avoid an Infection after Your Surgery Your doctor will give you specific instructions, but remember: -ALWAYS wash hands before caring for your incision. -No picking, scratching, or rubbing your incision. -No creams, lotion, powder, rubbing alcohol or hydrogen peroxide on the incision (can harm the tissue and slow healing). -Your doctor will give you specific instructions for what type of dressing you will need and how often it will need changed for infection purposes. -No tight clothing on incision. -Do not allow anyone to touch your incision unless they are cleaning, checking, or redressing it (be sure they wash their hands first). -No contact of your incision with pets; avoid sleeping with pets. -Take full course of antibiotic if prescribed for you after surgery- do not stop unless directed davidson your physician. You may also be given an antibiotic prior to your surgery to help prevent surgical site infections. -Eat a healthy and varied diet including proteins, fruits, and vegetables to help promote wound healing and keep blood sugars under control if you are diabetic. -Smoking slows the healing process by decreasing the amount of oxygen in your blood that is needed for tissue healing. Try to avoid or stop smoking if possible. LOOK at your incision each morning and each night to check the progress of healing. Some soreness, numbness, itching and/or mild bruising around the incision is normal. Call your doctor if you noticeany of the following: -Increased redness or hardening around the incision area. -Increased pain at the incision site. -Incision feels hot to the touch. -Swelling or pulling apart of the incision edges. -Yellow or green drainage or foul odor coming from the incision. -Bleeding from the incision (apply pressure as needed). -Fever higher than 101 degrees Fahrenheit for more than 4 hours. SHOWERING: Your doctor will give you specific instructions, but remember: -Be careful getting into and out of the shower. -Showers should be quick (5 minutes or less). -Use a clean washcloth to gently wash your incision with soap and water and pat the area dry with aclean towel. -No re-using wash cloths or towels; get a fresh one to clean your incision. -Do not soak in the bathtub, go swimming or use a hot tub (Jacuzzi), or perform activities where your incision is submerged in water or exposed to any fluids or substances until instructed by your doctor. -If your have the sticky strips (steri-strips) over the incision, it is OK to shower with them. Do not remove them. Let them fall off on their own. If you have a question, call your doctor s office. Go to the follow-up appointment with your doctor. documented in this encounterProMedica Health [id number] Miscellaneous Notes* Perioperative Nursing Note - Kiera Inman RN - 12/15/2024 8:15 AM EDT Preoperative Education Checklist- General Surgery date: 01/02/25 Surgery time: 1000 a.m. Arrival time: 0800 a.m. 1. Bring a photo ID and your insurance card with you the day of surgery. You will check in at the main lobby of the [facility]- registration desk is straight ahead as soon as you walk in. Tell them you are here for surgery. 2. If you have a Living Will/Durable Power of Roll Icer Machine for Health Care that is not on file here, please bring a copy the day of surgery. 3. Please shower/bathe the night before surgery with the provided soap or wipes. Do not shower the morning of surgery- you will do use wipes when you arrive here at the hospital before getting into your surgical gown. Do not shave the area of your procedure for 2 days prior to your surgery. 4. NO powder, lotion, perfume/cologne, aftershave, make-up, deodorant, or hair products after you have bathed. 5. NO nail beninese/acrylic on at least one finger. If you are having a hand, wrist or foot surgery then all nail beninese and artificial/acrylic nails must be removed from that hand or foot. 6. Avoid ALL Aspirin and non-steroidal anti-inflammatory drugs and certain vitamins (Ibuprofen, Advil, Aleve, Excedrin, Meloxicam, Celebrex, fish/krill oil, etc.) for 7 days prior to surgery as instructed by your surgeon and/or your prescribing doctor. Tylenol IS ALLOWED. If you are on Ticlid, Xarelto, Eliquis, Pradaxa, Plavix or Coumadin, please check with your prescribing doctor for instructions for when to stop them. 7. If you use an inhaler, continue to use it routinely. 8. Nothing to eat or drink (not even water, gum, mints, or hard candy!) AFTER midnight prior to your surgery. 9. Take only medications that you are instructed to on the morning of surgery with a TINY SIP OF WATER. 10. Choose a responsible adult that will be able to drive you home when you are discharged from your hospital stay for your surgery and can stay with you in your home for 24 hours after your procedure. You must NOT drive any vehicle or operate any machinery for 24 hours after surgery. 11. When you dress for your appointment, please wear loose fitting clothing that is appropriate to accommodate your surgical area procedure. BRING WITH YOU ANY DEVICES YOU MAY NEED: SEA hose, ice machine, sling/swath, brace or special shoe, oversized zip-up or button up shirt, CPAP machine if staying overnight. 12. Do NOT wear jewelry, watches, or any piercings or metal for surgery- leave these valuables and money at home. 13. Do NOT wear contact lenses for surgery- glasses are okay if needed. 14. The anesthesiologist will talk with you the day of surgery and will ask you to sign a Consent Form. 15. Refrain from smoking or any type of tobacco use for at least 8 hours and marijuana for 24 hoursprior to arrival for your surgery. 16. Notify your surgeon if you develop any illness before your surgery. 17. If you are staying overnight, please DO NOT BRING your home medications with you. 18. If you have any questions prior to surgery, please call the Preadmission Testing office at [phone], Mon.-Fri. 7 a.m.-3 p.m. Leave a voicemail if needed. Pre-Surgery Instructions: Medication Instructions ARIPiprazole (ABILIFY) 5 mg tablet Stop taking 0 days prior to procedure How to Avoid an Infection after Your Surgery Your doctor will give you specific instructions, but remember: -ALWAYS wash hands before caring for your incision. -No picking, scratching, or rubbing your incision. -No creams, lotion, powder, rubbing alcohol or hydrogen peroxide on the incision (can harm the tissue and slow healing). -Your doctor will give you specific instructions for what type of dressing you will need and how often it will need changed for infection purposes. -No tight clothing on incision. -Do not allow anyone to touch your incision unless they are cleaning, checking, or redressing it (be sure they wash their hands first). -No contact of your incision with pets; avoid sleeping with pets. -Take full course of antibiotic if prescribed for you after surgery- do not stop unless directed davidson your physician. You may also be given an antibiotic prior to your surgery to help prevent surgical site infections. -Eat a healthy and varied diet including proteins, fruits, and vegetables to help promote wound healing and keep blood sugars under control if you are diabetic. -Smoking slows the healing process by decreasing the amount of oxygen in your blood that is needed for tissue healing. Try to avoid or stop smoking if possible. LOOK at your incision each morning and each night to check the progress of healing. Some soreness, numbness, itching and/or mild bruising around the incision is normal. Call your doctor if you noticeany of the following: -Increased redness or hardening around the incision area. -Increased pain at the incision site. -Incision feels hot to the touch. -Swelling or pulling apart of the incision edges. -Yellow or green drainage or foul odor coming from the incision. -Bleeding from the incision (apply pressure as needed). -Fever higher than 101 degrees Fahrenheit for more than 4 hours. SHOWERING: Your doctor will give you specific instructions, but remember: -Be careful getting into and out of the shower. -Showers should be quick (5 minutes or less). -Use a clean washcloth to gently wash your incision with soap and water and pat the area dry with aclean towel. -No re-using wash cloths or towels; get a fresh one to clean your incision. -Do not soak in the bathtub, go swimming or use a hot tub (Jacuzzi), or perform activities where your incision is submerged in water or exposed to any fluids or substances until instructed by your doctor. -If your have the sticky strips (steri-strips) over the incision, it is OK to shower with them. Do not remove them. Let them fall off on their own. If you have a question, call your doctor s office. Go to the follow-up appointment with your doctor. * Perioperative Nursing Note - Kiera Inman RN - 12/15/2024 8:15 AM EDT Hibiclens and surgical instructions reviewed. Patient verbalized understanding. documented in this encounterKnox [facility] Hospital08-07-2025 Nurse Note* Perioperative Nursing Note - Kiera Inman RN - 12/15/2024 8:15 AM EDT Preoperative Education Checklist- General Surgery date: 01/02/25 Surgery time: 1000 a.m. Arrival time: 0800 a.m. 1. Bring a photo ID and your insurance card with you the day of surgery. You will check in at the main lobby of the [facility]- registration desk is straight ahead as soon as you walk in. Tell them you are here for surgery. 2. If you have a Living Will/Durable Power of Roll Icer Machine for Health Care that is not on file here, please bring a copy the day of surgery. 3. Please shower/bathe the night before surgery with the provided soap or wipes. Do not shower the morning of surgery- you will do use wipes when you arrive here at the hospital before getting into your surgical gown. Do not shave the area of your procedure for 2 days prior to your surgery. 4. NO powder, lotion, perfume/cologne, aftershave, make-up, deodorant, or hair products after you have bathed. 5. NO nail beninese/acrylic on at least one finger. If you are having a hand, wrist or foot surgery then all nail beninese and artificial/acrylic nails must be removed from that hand or foot. 6. Avoid ALL Aspirin and non-steroidal anti-inflammatory drugs and certain vitamins (Ibuprofen, Advil, Aleve, Excedrin, Meloxicam, Celebrex, fish/krill oil, etc.) for 7 days prior to surgery as instructed by your surgeon and/or your prescribing doctor. Tylenol IS ALLOWED. If you are on Ticlid, Xarelto, Eliquis, Pradaxa, Plavix or Coumadin, please check with your prescribing doctor for instructions for when to stop them. 7. If you use an inhaler, continue to use it routinely. 8. Nothing to eat or drink (not even water, gum, mints, or hard candy!) AFTER midnight prior to your surgery. 9. Take only medications that you are instructed to on the morning of surgery with a TINY SIP OF WATER. 10. Choose a responsible adult that will be able to drive you home when you are discharged from your hospital stay for your surgery and can stay with you in your home for 24 hours after your procedure. You must NOT drive any vehicle or operate any machinery for 24 hours after surgery. 11. When you dress for your appointment, please wear loose fitting clothing that is appropriate to accommodate your surgical area procedure. BRING WITH YOU ANY DEVICES YOU MAY NEED: SEA hose, ice machine, sling/swath, brace or special shoe, oversized zip-up or button up shirt, CPAP machine if staying overnight. 12. Do NOT wear jewelry, watches, or any piercings or metal for surgery- leave these valuables and money at home. 13. Do NOT wear contact lenses for surgery- glasses are okay if needed. 14. The anesthesiologist will talk with you the day of surgery and will ask you to sign a Consent Form. 15. Refrain from smoking or any type of tobacco use for at least 8 hours and marijuana for 24 hoursprior to arrival for your surgery. 16. Notify your surgeon if you develop any illness before your surgery. 17. If you are staying overnight, please DO NOT BRING your home medications with you. 18. If you have any questions prior to surgery, please call the [facility] office at [phone], Mon.-Fri. 7 a.m.-3 p.m. Leave a voicemail if needed. Pre-Surgery Instructions: Medication Instructions ARIPiprazole (ABILIFY) 5 mg tablet Stop taking 0 days prior to procedure How to Avoid an Infection after Your Surgery Your doctor will give you specific instructions, but remember: -ALWAYS wash hands before caring for your incision. -No picking, scratching, or rubbing your incision. -No creams, lotion, powder, rubbing alcohol or hydrogen peroxide on the incision (can harm the tissue and slow healing). -Your doctor will give you specific instructions for what type of dressing you will need and how often it will need changed for infection purposes. -No tight clothing on incision. -Do not allow anyone to touch your incision unless they are cleaning, checking, or redressing it (be sure they wash their hands first). -No contact of your incision with pets; avoid sleeping with pets. -Take full course of antibiotic if prescribed for you after surgery- do not stop unless directed davidson your physician. You may also be given an antibiotic prior to your surgery to help prevent surgical site infections. -Eat a healthy and varied diet including proteins, fruits, and vegetables to help promote wound healing and keep blood sugars under control if you are diabetic. -Smoking slows the healing process by decreasing the amount of oxygen in your blood that is needed for tissue healing. Try to avoid or stop smoking if possible. LOOK at your incision each morning and each night to check the progress of healing. Some soreness, numbness, itching and/or mild bruising around the incision is normal. Call your doctor if you noticeany of the following: -Increased redness or hardening around the incision area. -Increased pain at the incision site. -Incision feels hot to the touch. -Swelling or pulling apart of the incision edges. -Yellow or green drainage or foul odor coming from the incision. -Bleeding from the incision (apply pressure as needed). -Fever higher than 101 degrees Fahrenheit for more than 4 hours. SHOWERING: Your doctor will give you specific instructions, but remember: -Be careful getting into and out of the shower. -Showers should be quick (5 minutes or less). -Use a clean washcloth to gently wash your incision with soap and water and pat the area dry with aclean towel. -No re-using wash cloths or towels; get a fresh one to clean your incision. -Do not soak in the bathtub, go swimming or use a hot tub (Jacuzzi), or perform activities where your incision is submerged in water or exposed to any fluids or substances until instructed by your doctor. -If your have the sticky strips (steri-strips) over the incision, it is OK to shower with them. Do not remove them. Let them fall off on their own. If you have a question, call your doctor s office. Go to the follow-up appointment with your doctor. [facility]08-07-2025 Nurse Note* Perioperative Nursing Note - Kiera Inman RN - 12/15/2024 8:15 AM EDT Hibiclens and surgical instructions reviewed. Patient verbalized understanding. [facility]07-22-2025 History of Present illness Narrative* Belen Langston MD - 11/29/2024 8:30 AM EDT Images from the original note were not included. Chief Complaint: Pilonidal abscess History of Present Illness: Jet Duncan is a 19 y.o. male presents to the office with a pilonidal abscess. Approximately1 week ago, he developed pain in his intergluteal cleft. He was seen evaluated in the ER and was thought to have a pilonidal cyst. I&D was not performed at that time. The pain continued to get worse and eventually he felt a bulge in the area. It then started to drain bloody purulent fluid. He went to outside hospital ER yesterday, again no I&D was performed since it was already draining. He was placed on antibiotics, clindamycin. He is here today for further evaluation. He notes that the pain is improved, however the area stilldraining. He has never had anything like this before. 11/29/2024 He is here today due to concerns for recurrent pilonidal abscess. On he began having pain and swelling. He went to the urgent care on Thursday. He was prescribed antibiotics. It spontaneously drained. He has had relief since it has drained. Here to discuss surgery. Since he was last seen he has gained some weight. He now weighs 444 lb. BMI is 60. HPI Review of Systems Constitutional: Negative for fever and chills. Respiratory: Negative for shortness of breath. Cardiovascular: Negative for chest pain and palpitations. Gastrointestinal: Negative for nausea, vomiting and abdominal pain. Intergluteal pain Genitourinary: Negative for dysuria and difficulty urinating. Skin: Positive for wound. Negative for rash. Pilonidal abscess Allergic/Immunologic: Negative for immunocompromised state. Neurological: Negative for weakness and light-headedness. Hematological: Does not bruise/bleed easily. Psychiatric/Behavioral: Negative for behavioral problems and confusion. Past Medical History: Diagnosis Date Anxiety Bipolar disorder ([facility]) Depression Fibromyalgia Fractures Mood disorder URI, acute 07/03/2024 Past Surgical History: Procedure Laterality Date COLONOSCOPY LAPAROSCOPIC APPENDECTOMY N/A 02/20/2022 Performed by Dean Atkins DO at [facility] Allergies Allergen Reactions Penicillins Hives Current Outpatient Medications: ARIPiprazole (ABILIFY) 5 mg tablet, Take 1 tablet (5 mg total) by mouth in the morning., Disp: 90 tablet, Rfl: 1 hydrOXYzine (ATARAX) 50 mg tablet, Take 1 tablet (50 mg total) by mouth 3 (three) times a day as needed for anxiety., Disp: 90 tablet, Rfl: 5 sertraline (ZOLOFT) 100 mg tablet, Take 1.5 tablets (150 mg total) by mouth in the morning., Disp: 135 tablet, Rfl: 1 traZODone (DESYREL) 50 mg tablet, Take 1 tablet (50 mg total) by mouth nightly as needed for sleep., Disp: 90 tablet, Rfl: 1 Social History Socioeconomic History Marital status: Single Spouse name: Not on file Number of children: Not on file Years of education: Not on file Highest education level: Not on file Occupational History Not on file Tobacco Use Smoking status: Never Smokeless tobacco: Never Vaping Use Vaping status: Some Days Substances: Nicotine Devices: Disposable Substance and Sexual Activity Alcohol use: Yes Comment: occasionally Drug use: Never Sexual activity: Not Currently Other Topics Concern Not on file Social History Narrative Not on file Social Drivers of Health Financial Resource Strain: Not on file Food Insecurity: No Food Insecurity (08/29/2024) Hunger Screening Food Insecurity - Worry: Never True Food Insecurity - Inability: Never True Transportation Needs: No Transportation Needs (07/11/2024) PRAPARE - Transportation Lack of Transportation (Medical): No Lack of Transportation (Non-Medical): No Physical Activity: Not on file Stress: Not on file Social Connections: Not on file Interpersonal Safety: Not At Risk (07/11/2024) Humiliation, Afraid, Rape, and Kick questionnaire Fear of Current or Ex-Partner: No Emotionally Abused: No Physically Abused: No Sexually Abused: No Housing Instability: Low Risk (07/11/2024) Housing Instability Housing Instability: No Family History Problem Relation Age of Onset No Known Problems Father Heart disease Maternal Grandmother Cancer Maternal great-grandfather Lung cancer Maternal great-grandfather Physical Exam Vitals reviewed. Constitutional: Appearance: Normal appearance. He is obese. HENT: Head: Normocephalic and atraumatic. Eyes: Pupils: Pupils are equal, round, and reactive to light. Cardiovascular: Rate and Rhythm: Normal rate. Pulmonary: Effort: Pulmonary effort is normal. Abdominal: General: There is no distension. Palpations: Abdomen is soft. Tenderness: There is no abdominal tenderness. Musculoskeletal: General: No swelling. Skin: General: Skin is warm and dry. Comments: At intergluteal cleft, 3-4 pits noted. One of the pits with hair in it. Hair was removed,He is hirsute. No abscess. No cellulitis. Neurological: Mental Status: He is alert and oriented to person, place, and time. Mental status is at baseline. Psychiatric: Mood and Affect: Mood normal. Behavior: Behavior normal. Vital Signs: There were no vitals taken for this visit. Respiratory Source: No data recorded Admission Weight: Labs: Lab Results Component Value Date WBC 9.4 07/11/2024 HGB 15.5 07/11/2024 HCT 43.5 07/11/2024 MCV 85 07/11/2024 PLT 248 07/11/2024 Lab Results Component Value Date GLU 93 07/11/2024 CALCIUM 9.6 07/11/2024 K 4.2 07/11/2024 CO2 23 07/11/2024 CL 104 07/11/2024 BUN 16 07/11/2024 CREATININE 0.89 07/11/2024 No results found for: AMYLASE Lab Results Component Value Date LIPASE 28 12/26/2022 Lab Results Component Value Date ALT 60 (H) 07/11/2024 AST 38 07/11/2024 ALKPHOS 81 07/11/2024 No results found for: INR , PROTIME Assessment: Jet Duncan is a 19 y.o.male with pilonidal disease, recurrent abscess Morbid obesity Plan: We discussed surgical excision. Due to his high BMI, he would be at high-risk for surgical site infection/wound complications with surgery, plan for excision of pilonidal disease without primary closure. We discussed that he would have an open wound that would required daily dressing changes until it heals. He would like to proceed with surgical excision. Weight loss encouraged again. Evaluation included: Preparing to see the patient (e.g., review of tests) Obtaining and/or reviewing separately obtained history Performing a medically appropriate examination and/or evaluation Counseling and educating the patient/family/caregiver Referring and communicating with other health pet care attendant Belen Langston MD [facility] [place] [facility] note* Diagnosis Onset Date Resolution Status Admit Date Anxiety acuteApril 2024 1:03pmDepressionacuteApril 2024 1:03pmBipolar disorderchronicApril 2024 1:03pm [facility] Work Phone: 1(444) 967-956304-23-2025 Evaluation note* Diagnosis Onset Date Resolution Status Admit Date Anxiety acuteApril 2024 1:03pmDepressionacuteApril 2024 1:03pmBipolar disorderchronicApril 2024 1:03pmAnxietyacuteMay 2024 8:56am DepressionacuteMay 2024 8:56amBipolar disorderchronicMay 2024 8:56am Rib pain on right sideacuteJune 2024 8:25am [facility] Work Phone: [phone]) 967-122002-26-2025 Hospital Discharge instructions Patient Education 07/05/2024 23:18:30 Upper Respiratory Infection, Adult Upper Respiratory Infection, Adult An upper respiratory infection (URI) is a common viral infection of the nose, throat, and upper airpassages that lead to the lungs. The most common type of URI is the common cold. URIs usually get better on their own, without medical treatment. What are the causes? A URI is caused by a virus. You may catch a virus by: Breathing in droplets from an infected person's cough or sneeze. Touching something that has been exposed to the virus (is contaminated) and then touching your mouth, nose, or eyes. What increases the risk? You are more likely to get a URI if: You are very young or very old. You have close contact with others, such as at work, school, or a health care facility. You smoke. You have long-term (chronic) heart or lung disease. You have a weakened disease-fighting system (immune system). You have nasal allergies or asthma. You are experiencing a lot of stress. You have poor nutrition. What are the signs or symptoms? A URI usually involves some of the following symptoms: Runny or stuffy (congested) nose. Cough. Sneezing. Sore throat. Headache. Fatigue. Fever. Loss of appetite. Pain in your forehead, behind your eyes, and over your cheekbones (sinus pain). Muscle aches. Redness or irritation of the eyes. Pressure in the ears or face. How is this diagnosed? This condition may be diagnosed based on your medical history and symptoms, and a physical exam. Your health care provider may use a swab to take a mucus sample from your nose (nasal swab). This sample can be tested to determine what virus is causing the illness. How is this treated? URIs usually get better on their own within 7 10 days. Medicines cannot cure URIs, but your health care provider may recommend certain medicines to help relieve symptoms, such as: Qnqs-[id number] cold medicines. Cough suppressants. Coughing is a type of defense against infection that helps to clear the respiratory system, so take these medicines only as recommended by your health care provider. Fever-reducing medicines. Follow these instructions at home: Activity Rest as needed. If you have a fever, stay home from work or school until your fever is gone or until your health care provider says your URI cannot spread to other people (is no longer contagious). Your health care provider may have you wear a face mask to prevent your infection from spreading. Relieving symptoms Gargle with a mixture of salt and water 3 4 times a day or as needed. To make salt water, completely dissolve 1 tsp (3 6 g) of salt in 1 cup (237 mL) of warm water. Use a cool-mist humidifier to add moisture to the air. This can help you breathe more easily. Eating and drinking Drink enough fluid to keep your urine pale yellow. Eat soups and other clear broths. General instructions Take muev-mto-xzxtjam and prescription medicines only as told by your health care provider. These include cold medicines, fever reducers, and cough suppressants. Do not use any products that contain nicotine or tobacco. These products include cigarettes, chewing tobacco, and vaping devices, such as e-cigarettes. If you need help quitting, ask your health careprovider. Stay away from secondhand smoke. Stay up to date on all immunizations, including the yearly (annual) flu vaccine. Keep all follow-up visits. This is important. How to prevent the spread of infection to others URIs can be contagious. To prevent the infection from spreading: Wash your hands with soap and water for at least 20 seconds. If soap and water are not available, use hand building architect. Avoid touching your mouth, face, eyes, or nose. Cough or sneeze into a tissue or your sleeve or elbow instead of into your hand or into the air. Contact a health care provider if: You are getting worse instead of better. You have a fever or chills. Your mucus is brown or red. You have yellow or brown discharge coming from your nose. You have pain in your face, especially when you bend forward. You have swollen neck glands. You have pain while swallowing. You have white areas in the back of your throat. Get help right away if: You have shortness of breath that gets worse. You have severe or persistent: ?Headache. ?Ear pain. ?Sinus pain. ?Chest pain. You have chronic lung disease along with any of the following: ?Making high-pitched whistling sounds when you breathe, most often when you breathe out (wheezing). ?Prolonged cough (more than 14 days). ?Coughing up blood. ?A change in your usual mucus. You have a stiff neck. You have changes in your: ?Vision. ?Hearing. ?Thinking. ?Mood. These symptoms may be an emergency. Get help right away. Call 911. Do not wait to see if the symptoms will go away. Do not drive yourself to the hospital. Summary An upper respiratory infection (URI) is a common infection of the nose, throat, and upper air passages that lead to the lungs. A URI is caused by a virus. URIs usually get better on their own within 7 10 days. Medicines cannot cure URIs, but your health care provider may recommend certain medicines to help relieve symptoms. This information is not intended to replace advice given to you by your health care provider. Make sure you discuss any questions you have with your health care provider. Document Revised: 11/27/2021 Document Reviewed: 11/27/2021 [employer] Patient Education 2023 [employer] 07/05/2024 23:18:30 Otitis Media, Adult Otitis Media, Adult Otitis media occurs when there is inflammation and fluid in the middle ear with signs and symptoms of an acute infection. The middle ear is a part of the ear that contains bones for hearing as well as air that helps send sounds to the brain. When infected fluid builds up in this space, it causes pressure and can lead to an ear infection. The eustachian tube connects the middle ear to the back of the nose (nasopharynx) and normally allows air into the middle ear. If the eustachian tube becomes blocked, fluid can build up and become infected. What are the causes? This condition is caused by a blockage in the eustachian tube. This can be caused by mucus or by swelling of the tube. Problems that can cause a blockage include: A cold or other upper respiratory infection. Allergies. An irritant, such as tobacco smoke. Enlarged adenoids. The adenoids are areas of soft tissue located high in the back of the throat, behind the nose and the roof of the mouth. They are part of the body's defense system (immune system). A mass in the nasopharynx. Damage to the ear caused by pressure changes (barotrauma). What increases the risk? You are more likely to develop this condition if you: Smoke or are exposed to tobacco smoke. Have an opening in the roof of your mouth (cleft palate). Have gastroesophageal reflux. Have an immune system disorder. What are the signs or symptoms? Symptoms of this condition include: Ear pain. Fever. Decreased hearing. Tiredness (lethargy). Fluid leaking from the ear, if the eardrum is ruptured or has burst. Ringing in the ear. How is this diagnosed? This condition is diagnosed with a physical exam. During the exam, your health care provider will use an instrument called an otoscope to look in your ear and check for redness, swelling, and fluid. He or she will also ask about your symptoms. Your health care provider may also order tests, such as: A pneumatic otoscopy. This is a test to check the movement of the eardrum. It is done by squeezing a small amount of air into the ear. A tympanogram. This is a test that shows how well the eardrum moves in response to air pressure in the ear canal. It provides a graph for your health care provider to review. How is this treated? This condition can go away on its own within 3 5 days. But if the condition is caused by a bacterial infection and does not go away on its own, or if it keeps coming back, your health care provider may: Prescribe antibiotic medicine to treat the infection. Prescribe or recommend medicines to control pain. Follow these instructions at home: Take typm-jug-tvdqtax and prescription medicines only as told by your health care provider. If you were prescribed an antibiotic medicine, take it as told by your health care provider. Do notstop taking the antibiotic even if you start to feel better. Keep all follow-up visits. This is important. Contact a health care provider if: You have bleeding from your nose. There is a lump on your neck. You are not feeling better in 5 days. You feel worse instead of better. Get help right away if: You have severe pain that is not controlled with medicine. You have swelling, redness, or pain around your ear. You have stiffness in your neck. A part of your face is not moving (paralyzed). The bone behind your ear (mastoid bone) is tender when you touch it. You develop a severe headache. Summary Otitis media is redness, soreness, and swelling of the middle ear, usually resulting in pain and decreased hearing. This condition can go away on its own within 3 5 days. If the problem does not go away in 3 5 days, your health care provider may give you medicines to treat the infection. If you were prescribed an antibiotic medicine, take it as told by your health care provider. Follow all instructions that were given to you by your health care provider. This information is not intended to replace advice given to you by your health care provider. Make sure you discuss any questions you have with your health care provider. Document Revised: 08/05/2021 Document Reviewed: 08/05/2021 [employer] Patient Education 2023 [employer]. Follow Up Care 07/05/2024 21:47:00 With:Abbi JAY Address: [address] [place] [phone] Business (1) When:07/08/2024 [facility] 02-25-2025 NoteED Patient Education Note ENT Otitis Media, Adult Otitis media occurs when there is inflammation and fluid in the middle ear with signs and symptoms of an acute infection. The middle ear is a part of the ear that contains bones for hearing as well as air that helps send sounds to the brain. When infected fluid builds up in this space, it causes pressure and can lead to an ear infection. The eustachian tube connects the middle ear to the back of the nose (nasopharynx) and normally allows air into the middle ear. If the eustachian tube becomes blocked, fluid can build up and become infected. What are the causes? This condition is caused by a blockage in the eustachian tube. This can be caused by mucus or by swelling of the tube. Problems that can cause a blockage include: ??? A cold or other upper respiratory infection. ??? Allergies. ??? An irritant, such as tobacco smoke. ??? Enlarged adenoids. The adenoids are areas of soft tissue located high in the back of the throat, behind the nose and the roof of the mouth. They are part of the body's defense system (immune system). ??? A mass in the nasopharynx. ??? Damage to the ear caused by pressure changes (barotrauma). What increases the risk? You are more likely to develop this condition if you: ??? Smoke or are exposed to tobacco smoke. ??? Have an opening in the roof of your mouth (cleft palate). ??? Have gastroesophageal reflux. ??? Have an immune system disorder. What are the signs or symptoms? Symptoms of this condition include: ??? Ear pain. ??? Fever. ??? Decreased hearing. ??? Tiredness (lethargy). ??? Fluid leaking from the ear, if the eardrum is ruptured or has burst. ??? Ringing in the ear. How is this diagnosed? This condition is diagnosed with a physical exam. During the exam, your health care provider will use an instrument called an otoscope to look in your ear and check for redness, swelling, and fluid. He or she will also ask about your symptoms. Your health care provider may also order tests, such as: ??? A pneumatic otoscopy. This is a test to check the movement of the eardrum. It is done by squeezing a small amount of air into the ear. ??? A tympanogram. This is a test that shows how well the eardrum moves in response to air pressurein the ear canal. It provides a graph for your health care provider to review. How is this treated? This condition can go away on its own within 3?5 days. But if the condition is caused by a bacterial infection and does not go away on its own, or if it keeps coming back, your health care provider may: ??? Prescribe antibiotic medicine to treat the infection. ??? Prescribe or recommend medicines to control pain. Follow these instructions at home: ??? Take gvyu-yeq-oncfjam and prescription medicines only as told by your health care provider. ??? If you were prescribed an antibiotic medicine, take it as told by your health care provider. Donot stop taking the antibiotic even if you start to feel better. ??? Keep all follow-up visits. This is important. Contact a health care provider if: ??? You have bleeding from your nose. ??? There is a lump on your neck. ??? You are not feeling better in 5 days. ??? You feel worse instead of better. Get help right away if: ??? You have severe pain that is not controlled with medicine. ??? You have swelling, redness, or pain around your ear. ??? You have stiffness in your neck. ??? A part of your face is not moving (paralyzed). ??? The bone behind your ear (mastoid bone) is tender when you touch it. ??? You develop a severe headache. Summary ??? Otitis media is redness, soreness, and swelling of the middle ear, usually resulting in pain and decreased hearing. ??? This condition can go away on its own within 3?5 days. ??? If the problem does not go away in 3?5 days, your health care provider may give you medicines to treat the infection. ??? If you were prescribed an antibiotic medicine, take it as told by your health care provider. ??? Follow all instructions that were given to you by your health care provider. This information is not intended to replace advice given to you by your health care provider. Make sure you discuss any questions you have with your health care provider. Document Revised: 08/05/2021 Document Reviewed: 08/05/2021 Elsevier Patient Education ? 2023 [employer]. Infectious Disease Upper Respiratory Infection, Adult An upper respiratory infection (URI) is a common viral infection of the nose, throat, and upper airpassages that lead to the lungs. The most common type of URI is the common cold. URIs usually get better on their own, without medical treatment. What are the causes? A URI is caused by a virus. You may catch a virus by: ??? Breathing in droplets from an infected person's cough or sneeze. ??? Touching something that has been exposed to the virus (more content not included)...[facility]02-06-2025 Evaluation note* Diagnosis Onset Date Resolution Status Admit Date Sciatica, right side acuteFebruary 2024 9:39amAnxietyacuteApril 2024 1:03pmDepressionacute Kaila 2024 1:03pmBipolar disorderchronicApril 2024 1:03pm [facility] Work Phone: 1([phone]) 242-570112-09-2024 Evaluation note* Diagnosis Onset Date Resolution Status Admit Date Pilonidal cyst acuteDecember 2023 8:23amSciatica, right sideacuteFebruary 2024 9:39am [facility] Work Phone: 1(130) 609-928511-12-2024 [place] [address] EGD/Colonoscopy Procedure Signed Patient: Jet Duncan MR#: [id number] : 2005 Acct:[id number] Age/Sex: 18 / M Adm Date: 4 Loc: Room: Type: [facility] Attending Dr: Wilver Felton MD Copies to: MD Leatha Ribeiro, CLOTH CALENDER, MANAGER MATERIAL~ EGD & Colonoscopy Date/Provider 03/22/2024 Wilver Felton MD Colonoscopy Findings: Procedure: Colonoscopy with biopsy Indication: 18-year-old man here for EGD for evaluation of abdominal pain heartburn and intermittent vomiting and colonoscopy for evaluation of change in bowel habits Pre-operative diagnosis: Change in bowel habits Post-operative diagnosis: Internal hemorrhoids Sedation: propofol per anesthesia dept O2 oximetry, hemodynamic monitoring was performed pre, during, and post procedure. Patient was identified, H&P completed, patient was given full explanation of the procedure as well as associatedrisks and written consent wasobtained prior to procedure. Patient expressed complete understanding of the procedure as well as alternatives to the procedure and to anesthesia and agreed to proceed with the procedure as indicated. Patient was immediately reassessed prior to IV sedation. Under IV sedation, patient was placed in the left lateral decubitus position. Digital rectal exam was performed and normal. Colonoscope was inserted and passed proximally to the cecum, which was identified by the ileocecal valve, appendiceal orifice and cecal floor. Colonoscope was slowly withdrawnwith the findings as below. [place] bowel prep score was good. Findings: Random colonic biopsies were done using biopsy forceps to assess for microscopic colitis. Terminal Ileum: Normal Cecum: Normal. Ascending colon: Normal. Hepatic flexure: Normal. Transverse colon: Normal. Splenic flexure: Normal. Descending colon: Normal. Sigmoid colon: Normal. Rectum: Normal. Retroflexed views: Rectum did show internal hemorrhoids. Biopsy taken: Yes Complications: None EBL: Minimal Recommendations: -Follow up pathology -Follow up in the office Following a period of recovery, patient was seen and given full explanation of the procedure. Patient tolerated the procedure well and will be discharged in satisfactory, stable condition. Wilver Felton M.D. EGD Findings: Procedure: EGD with biopsy Indication: 18-year-old man here for EGD for evaluation of abdominal pain heartburn and intermittent vomiting and colonoscopy for evaluation of change in bowel habits Pre-operative diagnosis: Abdominal pain and heartburn Post-operative diagnosis: LA grade a esophagitis Sedation: propofol per anesthesia dept O2 oximetry, hemodynamic monitoring was performed pre, during, and post procedure. Patient was identified, H&P completed, patient was given full explanation of the procedure as well as associatedrisks and written consent wasobtained prior to procedure. Patient expressed complete understanding of the procedure as well as alternatives to the procedure and to anesthesia and agreed to proceed with the procedure as indicated. Patient was immediately reassessed prior to IV sedation. Following IV sedation, patient was placed in the left lateral decubitus position. Bite block was inserted. Endoscope was passed through the mouth, into the esophagus. Endoscope was advanced into the stomach through the pyloricchannel and into the 2nd portion of duodenum by direct visualization. Endoscopewas withdrawn into the stomach and retroflexion was performed. The endoscope was straightened,the stomach was decompressed. Endoscope was withdrawn into the esophagus then completely removed with the findings as below. Findings: DUODENUM: bulb and descending portion appeared normal. Biopsies were done usingbiopsy forceps to assess for celiac STOMACH: pyloric channel, antrum, body, fundus and cardia, including retroflexedviews appear normal. Biopsies were done using biopsy forceps to assess for H. pylori ESOPHAGUS: LA grade a esophagitis. Diaphragmatic hiatus was 43 cm from incisorsand GE junction (upper margin of gastric folds) was at 43 cm from incisors. Squamocolumnar junction was at 43 cm from incisors. Biopsy taken: Yes Complications: None EBL: None Recommendations: -Pantoprazole 40 mg daily -Follow up pathology Following a period of recovery, patient was seen and given full explanation of the procedure. Patient tolerated the procedure well and will be discharged in satisfactory, stable condition. Wilver Felton M.D. Documented By: Wilver Felton MD 03/22/24 1012 Signed By: 03/22/24 1039 [facility]11-12-2024 [place] [address] Gastroenterology H&P Signed Patient: Jet Duncan MR#: [id number] : 2005 Acct:[id number] Age/Sex: 18 / M Adm Date: 4 Loc: Room: Type: [facility] Attending Dr: Wilver Felton MD Copies to: MD Leatha Ribeiro APRN, JAKE~ Date of Service: 03/22/2024 HISTORY & PHYSICAL: Patient's history with special attention to the cardiovascular, pulmonary systems and the current problem was reviewed with the patient immediately prior to the procedure. Present medications and doses reviewed in the EMR. Allergies and pertinent laboratory tests were also re viewedat this time in the EMR. The physical [...] Wilver Felton MD 03/22/24 1010 Signed By: 03/22/24 1012 [facility]11-01-2024 History and physical note Author Wilver Felton [facility] CenterNote Date/TimeNovember 2023 10:12am [place] [address] Gastroenterology H&P Signed Patient: Jet Duncan MR#: [id number] : 2005 Acct:[id number] Age/Sex: 18 / M Adm Date: 4 Loc: Room: Type: [facility] Attending Dr: Wilver Felton MD Copies to: MD Leatha Ribeiro APRN, JAKE~ Date of Service: 03/22/2024 HISTORY & PHYSICAL: Patient's history with special attention to the cardiovascular, pulmonary systems and the current problem was reviewed with the patient immediately prior to the procedure. Present medications and doses reviewed in the EMR. Allergies and pertinent laboratory tests were also re viewedat this time in the EMR. The physical [...] Wilver Felton MD> 03/22/[address] [facility] Work Phone: 1(682) 882-837410-01-2024 Evaluation note* Author Kareem Tijerina [facility] CenterAuthoredOctober 2023 8:48amHighest weight: 407.5 lbs. Up 16.3lbs Start weight: 407.5 lbs. 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 6. 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 Salivary cortisol x 2 ordered. [facility] Work Phone: 1(650) 165-115109-17-2024 History of Present illness Narrative* Belen Langston MD - 01/26/2024 10:30 AM EDT Images from the original note were not included. Chief Complaint: Pilonidal abscess History of Present Illness: Jet Duncan is a 18 y.o. male presents to the office with a pilonidal abscess. Approximately1 week ago, he developed pain in his intergluteal cleft. He was seen evaluated in the ER and was thought to have a pilonidal cyst. I&D was not performed at that time. The pain continued to get worse and eventually he felt a bulge in the area. It then started to drain bloody purulent fluid. He went to outside hospital ER yesterday, again no I&D was performed since it was already draining. He was placed on antibiotics, clindamycin. He is here today for further evaluation. He notes that the pain is improved, however the area stilldraining. He has never had anything like this before. Reports occasional bright red blood with a bowel movement. He states that this happens every 3 daysor so. He denies any constipation. He denies any diarrhea. He denies any anal pain with bowel movement. He states blood is on the outside of the stool. This started 1 month ago. HPI Review of Systems Constitutional: Negative for fever and chills. Respiratory: Negative for shortness of breath. Cardiovascular: Negative for chest pain and palpitations. Gastrointestinal: Positive for blood in stool. Negative for nausea, vomiting and abdominal pain. Intergluteal pain Genitourinary: Negative for dysuria and difficulty urinating. Skin: Negative for rash and wound. Allergic/Immunologic: Negative for immunocompromised state. Neurological: Negative for weakness and light-headedness. Hematological: Does not bruise/bleed easily. Psychiatric/Behavioral: Negative for behavioral problems and confusion. Past Medical History: Diagnosis Date Anxiety Bipolar disorder ([facility]) Depression Fractures Mood disorder ([facility]) Past Surgical History: Procedure Laterality Date LAPAROSCOPIC APPENDECTOMY N/A 02/20/2022 Performed by Dean Atkins DO at [facility] Allergies Allergen Reactions Penicillins Hives Current Outpatient Medications: bismuth subsalicylate (PEPTO BISMOL) 262 mg/15 mL suspension, Take 15 mL by mouth every 6 (six) hours as needed for indigestion., Disp: 360 mL, Rfl: 0 clindamycin (CLEOCIN) 300 mg capsule, Take 1 capsule (300 mg total) by mouth 3 (three) times a day for 7 days., Disp: 21 capsule, Rfl: 0 famotidine (PEPCID) 20 mg tablet, Take 1 tablet (20 mg total) by mouth in the morning and 1 tablet (20 mg total) before bedtime., Disp: 20 tablet, Rfl: 0 ibuprofen (MOTRIN) 600 mg tablet, Take 1 tablet (600 mg total) by mouth every 8 (eight) hours as needed for pain., Disp: 12 tablet, Rfl: 0 meloxicam (MOBIC) 15 mg tablet, Take one tablet in the morning with food, Disp: 30 tablet, Rfl: 2 naloxone (NARCAN) 4 mg/actuation spray,non-aerosol nasal spray, Administer 1 spray (4 mg total) into alternating nostrils as needed for opioid reversal., Disp: , Rfl: ondansetron ODT (ZOFRAN ODT) 4 mg disintegrating tablet, Dissolve 1 tablet (4 mg total) on tongue every 8 (eight) hours as needed for nausea for up to 10 doses., Disp: 10 tablet, Rfl: 0 oxyCODONE-acetaminophen (PERCOCET) 5-325 mg per tablet, Take 1 tablet by mouth every 4 (four) hoursas needed for pain for up to 7 days. Max Daily Amount: 6 tablets, Disp: 6 tablet, Rfl: 0 tiZANidine (ZANAFLEX) 2 mg tablet, Take 1 tablet (2 mg total) by mouth every 6 (six) hours as needed for muscle spasms., Disp: 12 tablet, Rfl: 0 Social History Socioeconomic History Marital status: Single Spouse name: Not on file Number of children: Not on file Years of education: Not on file Highest education level: Not on file Occupational History Not on file Tobacco Use Smoking status: Never Smokeless tobacco: Never Vaping Use Vaping status: Some Days Substances: Nicotine Devices: Disposable Substance and Sexual Activity Alcohol use: Yes Comment: occasionally Drug use: Never Sexual activity: Not Currently Other Topics Concern Not on file Social History Narrative Not on file Social Determinants of Health Financial Resource Strain: Not on file Food Insecurity: No Food Insecurity (01/26/2024) Hunger Screening Food Insecurity - Worry: Never True Food Insecurity - Inability: Never True Transportation Needs: Not on file Physical Activity: Not on file Stress: Not on file Social Connections: Not on file Interpersonal Safety: Not on file Housing Instability: Not on file Family History Problem Relation Age of Onset No Known Problems Father Heart disease Maternal Grandmother Cancer Maternal great-grandfather Lung cancer Maternal great-grandfather Physical Exam Vitals reviewed. Constitutional: Appearance: Normal appearance. He is obese. HENT: Head: Normocephalic and atraumatic. Eyes: Pupils: Pupils are equal, round, and reactive to light. Cardiovascular: Rate and Rhythm: Normal rate. Pulmonary: Effort: Pulmonary effort is normal. Abdominal: General: There is no distension. Palpations: Abdomen is soft. Tenderness: There is no abdominal tenderness. Musculoskeletal: General: No swelling. Skin: General: Skin is warm and dry. Comments: At intergluteal cleft, 1-2 cm area of fluctuance, there is an opening in the skin that isdraining purulent fluid. Inferior to this, there was a pit. He is hirsute. Neurological: Mental Status: He is alert and oriented to person, place, and time. Mental status is at baseline. Psychiatric: Mood and Affect: Mood normal. Behavior: Behavior normal. Vital Signs: Blood pressure 114/81, pulse 108, height 182.9 cm (6'), weight (!) 188.6 kg (415 lb 12.8 oz). Respiratory Source: No data recorded Admission Weight: Weight: (!) 188.6 kg (415 lb 12.8 oz) Labs: Lab Results Component Value Date WBC 4.7 06/30/2023 HGB 14.3 06/30/2023 HCT 41.2 06/30/2023 MCV 86 06/30/2023 PLT 236 06/30/2023 Lab Results Component Value Date GLU 103 (H) 06/30/2023 CALCIUM 8.9 06/30/2023 K 3.7 06/30/2023 CO2 24 06/30/2023 CL 104 06/30/2023 BUN 10 06/30/2023 CREATININE 0.83 06/30/2023 No results found for: AMYLASE Lab Results Component Value Date LIPASE 28 12/26/2022 Lab Results Component Value Date ALT 69 (H) 12/26/2022 AST 44 (H) 12/26/2022 ALKPHOS 111 10/13/2019 No results found for: INR , PROTIME Procedure Consent was obtained The areas prepped and draped in the usual sterile fashion. Local anesthesia was infiltrated. An incision was made overlying the area of greatest fluctuance. This was deepened until the abscesscavity was reached. Copious amount of purulent fluid was drained. All loculations were broken down.This was irrigated. The wound was packed and covered with gauze and tape. Assessment: Jet Duncan is a 18 y.o.male with pilonidal abscess Pilonidal abscess [L05.01] Plan: Incision and drainage pilonidal abscess was performed in the office today Change packing once daily Return to the office in 6 weeks For bright red blood per rectum, likely secondary to internal hemorrhoids. Recommended hydration, high-fiber diet, fiber supplementation and stool softener. Avoid straining. Avoid constipation or diarrhea. Avoid prolonged time on the toilet Evaluation included: Preparing to see the patient (e.g., review of tests) Obtaining and/or reviewing separately obtained history Performing a medically appropriate examination and/or evaluation Counseling and educating the patient/family/caregiver Referring and communicating with other health pet care attendant Belen Langston MD [facility] [place] [facility] note* Author Molly Kulkarni [facility] 2023 9:40amPatient has been NPO other than plain water for the last 4 hours. [...] the results will be discussed with the Mathematics Faculty Member. 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 I am sending him to [facility] for evaluation and treatment. If he truly has bipolar disorder we could not consider an antidepressant unless he was on a mood stabilizing medication. 6. 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 Salivary cortisol x 2 ordered. [facility] Work Phone: 1(650) 360-954808-06-2024 Evaluation note* Author Molly Kulkarni [facility] CenterMaryam 2023 9:40amPatient has been NPO other than plain water for the last 4 hours. [...] the results will be discussed with the Mathematics Faculty Member. 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 6. 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 Author Zaida Frias [facility] CenterAuthoredOctober 2023 9:20amHighest weight: 407.5 lbs. Up 16.3lbs Start weight: 407.5 lbs. 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 6. 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 Salivary cortisol x 2 ordered. [facility] Work Phone: 1(439) 932-214608-06-2024 Evaluation note* Author Molly Kulkarni [facility] CenterInderjithoHa 2023 9:40amPatient has been NPO other than plain water for the last 4 hours. [...] the results will be discussed with the Mathematics Faculty Member. 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 6. 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 Author Kareem Tijerina [facility] CenterAuthoredOctober 2023 9:48amHighest weight: 407.5 lbs. Up 16.3lbs Start weight: 407.5 lbs. 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 6. 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 Salivary cortisol x 2 ordered. [facility] Work Phone: 1(417) 421-913506-13-2024 Evaluation note* Author Kareem Tijerina [facility] CenterAuthoredJune 2023 10:11amHighest weight: 407.5 lbs Down 5.4 lbs Start weight: 407.5 lbs. 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 6. 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 Author Kareem Tijerina [facility] CenterAuthoredLay 2023 11:24amHighest weight: 407.5 lbs Down 6.9 lbs. Start weight: 407.5 lbs. 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 6. 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 6. 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 Salivary cortisol x 2 ordered/pending. [facility] Work Phone: 1(302) 750-821006-13-2024 Evaluation note* Author Kareem Tijerina [facility] CenterInderjithoAlyce 2023 10:11amHighest weight: 407.5 lbs Down 5.4 lbs Start weight: 407.5 lbs. 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 6. 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 Author Molly [facility] HospitalMaryam 2023 9:40amPatient has been NPO other than plain water for the last 4 hours. [...] the results will be discussed with the Mathematics Faculty Member. 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 6. 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 Salivary cortisol x 2 ordered. 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 6. 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 Handout given. Our free weekly [...] and benefits of prescribed meds discussed. Initial [id number] interview/evaluation. The patient was counseled in detail on the options for weight loss in an individual setting. 55 minutes was spent caring for the patient, counseling/educating patient on the options for the treatment of obesity and related healthcare issues. The program's treatment goals were reviewed with the patient. Each aspect of the program was discussed with the patient. 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 6. 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 Handout given. Our free weekly [...] and benefits of prescribed meds discussed. Initial jhox-zs-gmzr interview/evaluation. The patient was counseled in detail on the options for weight loss in an individual setting. 55 minutes was spent caring for the patient, counseling/educating patient on the options for the treatment of obesity and related healthcare issues. The program's treatment goals were reviewed with the patient. Each aspect of the program was discussed with the patient. Author Kareem Tijerina [facility] CenterAuthoredMay 2023 11:24amHighest weight: 407.5 lbs Down 6.9 lbs. Start weight: 407.5 lbs. 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 6. 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 Salivary cortisol x 2 ordered/pending. 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 6. 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 Handout given. Our free weekly [...] and benefits of prescribed meds discussed. Initial gvhq-ky-hzlc interview/evaluation. The patient was counseled in detail on the options for weight loss in an individual setting. 55 minutes was spent caring for the patient, counseling/educating patient on the options for the treatment of obesity and related healthcare issues. The program's treatment goals were reviewed with the patient. Each aspect of the program was discussed with the patient. Author Oriana Cutler [facility] CenterAuthoredJunzev 2023 9:48amHighest weight: 407.5 lbs Down 5.4 lbs Start weight: 407.5 lbs. 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 6. 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 Author [facility]ijerina [facility] 20[facility] 11:24amHighest weight: 407.5 lbs Down 6.9 lbs. Start weight: 407.5 lbs. 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 6. 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 Salivary cortisol x 2 ordered/pending. 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 6. 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 Handout given. Our free weekly [...] and benefits of prescribed meds discussed. Initial plor-cl-dgfp interview/evaluation. The patient was counseled in detail on the options for weight loss in an individual setting. 55 minutes was spent caring for the patient, counseling/educating patient on the options for the treatment of obesity and related healthcare issues. The program's treatment goals were reviewed with the patient. Each aspect of the program was discussed with the patient. Author Kareem Tijerina [facility] 2023 10:11amHighest weight: 407.5 lbs Down 5.4 lbs Start weight: 407.5 lbs. 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 6. 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 Author Kareem Tijerina [facility] 2023 11:24amHighest weight: 407.5 lbs Down 6.9 lbs. Start weight: 407.5 lbs. 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 6. 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 Salivary cortisol x 2 ordered/pending. [facility] Work Phone: 1([phone]) 962-817703-12-2024 History of Present illness Narrative* ERLINDA Cooper - 07/21/2023 9:30 AM EDT Images from the original note were not included. [address] [id number] Date of Service: 07/21/2023 Thank you for [...] 02/20/2022 Performed by Dean Atkins DO at [facility] reviewed. Social History Tobacco Use Smoking status: Never Smokeless tobacco: Never Vaping Use Vaping Use: Never used Substance Use Topics Alcohol use: Not Currently Drug use: Never reviewed. Past Medical History: Diagnosis Date Anxiety Bipolar disorder ([facility]) Depression Fractures Mood disorder ([facility]) reviewed. Social History Social History Narrative [...] Admits: [x] Chest pain: went to ER [place], did EKG, concluded as a muscle cramp [...] CK was normal urine exam was normal CERTIFIED TECHNICIAN SPECIALIST, anti Newberry antibody, scleroderma 70 antibody, complement C3-C4, centromere antibodies, p.m. Scl antibody, andree p.m. Scl antibody, anti dsDNA antibody, U3 CERTIFIED TECHNICIAN SPECIALIST were all negative/ normal THC you antibody, [...] or corrected. Thank you for your understanding. [facility] Rheumatology Magalie Cox PA-C [address] [place] [address] Office [phone] ERLINDA Cooper 07/21/23 [id number] ERLINDA Cooper 07/21/23 5765 documented in this encounterTriHealth Bethesda Butler HospitalPokitDok [facility] [id number] Evaluation note* Encounter Date Diagnosis Assessment Notes Treatment Notes Treatment Clinical Notes May, Elevated LFTs (ICD-10 - R79.89) The liver studies are all within normal limits. May,Fatty liver (ICD-10 - K76.0)Plan for repeat fibroscan in one year for routine surveillance. [facility] Other 12-12-2023 Evaluation note* Encounter Date Diagnosis Assessment Notes Treatment Notes Treatment Clinical Notes Apr, Fatty liver (ICD-10 - K76.0) Apr,Elevated LFTs (ICD-10 - R79.89) Apr,Hepatitis A test positive (ICD-10 - B15.9) Apr,Fatigue, unspecified type (ICD-10 - R53.83) [facility] Other 11-09-2023 Evaluation note* Encounter Date Diagnosis Assessment Notes Treatment Notes Treatment Clinical Notes Mar, Hepatitis A test positive (ICD-1 0 - B15.9) f/u after testing Mar,Elevated LFTs (ICD-10 - R79.89) Mar,Fatty liver (ICD-10 - K76.0) [facility] Other 09-27-2022 Evaluation note* Encounter Date Diagnosis Assessment Notes Treatment Notes Treatment Clinical Notes Jan, Contact with and (stein spected) exposure to other viral communicable diseases (ICD-10 - Z20.828) Jan,Viral URI with cough (ICD-10 - J06.9) Advised [...] treatment plan. Patient left in stable condition [facility] Other [place] complaint+Reason for visit Narrative* Chief Complaint 1 Month Follow Up Stomach Issues Amb Documentation [place]-Referral Leatha Diaz k76.0 r73.9 k76.0Reason for VisitFamily history of Luis thyroiditis Fatigue Fatty liver Multiple joint pain Obesities, morbid Sleep disturbance Vitamin D deficiency Abnormal weight gain Fatty liver Sleep disturbance Bipolar disorder [facility] Work Phone: Chief complaint+Reason for visit Narrative* Chief Complaint Stomach Issues Amb Documentation [place]-Referral Leatha Emily k76.0 r73.9 k76.0 chest congestionReason for VisitFamily history of Luis thyroiditis Fatigue Fatty liver Multiple joint pain Obesities, morbid Sleep disturbance Vitamin D deficiency Abnormal weight gain Fatty liver Sleep disturbance Bipolar disorder Bronchitis Maxillary sinusitis [facility] Work Phone: Chief complaint+Reason for visit Narrative* Chief Complaint Amb Documentation [place]-Referral Leatha Emily k76.0 r73.9 k76.0 chest congestion knee issues Mental concernsReason for VisitAbnormal weight gain Fatty liver Sleep disturbance Bipolar disorder Bronchitis Maxillary sinusitis Adult BMI 50.0-59.9 kg/sq m Fatty liver Mixed hyperlipidemia Vitamin D deficiency Bipolar disorder Left knee pain Right knee pain Depression [facility] Work Phone: Chief complaint+Reason for visit Narrative* Chief Complaint Marina-Referral Abelino schuster Emily k76.0 r73.9 k76.0 chest congestion knee issues Mental concerns 4 week follow upReason for VisitAbnormal weight gain Fatty liver Sleep disturbance Bipolar disorder Bronchitis Maxillary sinusitis Adult BMI 50.0-59.9 kg/sq m Fatty liver Mixed hyperlipidemia Vitamin D deficiency Bipolar disorder Left knee pain Right knee pain Depression Adult BMI 50.0-59.9 kg/sq m Fatty liver Mixed hyperlipidemia Tachycardia Depression [facility] Work Phone: Evaluation + Plan note No data available for this section [facility] Evaluation noteNo assessment information available [facility] Work Phone: Evaluation noteNo InformationNort Q Medical Centers Other Evaluation note* Author Zaida Frias [facility] CenterAuthoredApril 2023 10:38amAssessment: Highest weight: 407.5 lbs Start weight: 407.5 [...] Our exercise program was recommended with our community arts officer/obesity exercise group. Handout given. Our free weekly [...] and benefits of prescribed meds discussed. Initial aase-rp-dtva interview/evaluation. The patient was counseled in detail on the options for weight loss in an individual setting. [ ] minutes was spent caring for the patient, counseling/educating patient on the options for the treatment of obesity and related healthcare issues. The program's treatment goals were reviewed with the patient. Each aspect of the program was discussed with the patient. [facility] Work Phone: Evaluation note* Diagnosis Positive TENA (antinuclear antibody)- Primary Other and unspecified nonspecific immunological findings Chronic fatigue Other malaise and fatigue Pain in both hands Bilateral carpal tunnel syndrome Carpal tunnel syndrome [facility] Diagnosis Pilonidal abscess- Primary Pilonidal cyst with abscess [facility]* Diagnosis Pilonidal disease- Primary [facility]* Diagnosis Epididymal cyst- Primary Other specified disorder of male genital organs Right hydrocele Unspecified hydrocele [facility]* Diagnosis Pilonidal disease- Primary [facility]* Diagnosis Epididymal cyst- Primary Other specified disorder of male genital organs [facility] SystemHistory general Narrative - Reported* Type Description Date Medical History bi polar [employer] [facility] [address] Labs Other Hisbqbe general Narrative - Reported* Type Description Date Medical History bi polar Surgical Historyappendectomy [facility] 640 Labs Other History general Narrative - Reported* Type Description Date Medical History bi polar Surgical HistoryappendectomyHospitalization Historysee above [employer] [facility] [address] Labs Other Hospital Discharge instructionsAmbulatory Orders* Referral to Psychiatry Time Frame: 08/31/24, Location: None Selected [facility] Work Phone: Instructions* Attachments The following attachments cannot be sent through Care Everywhere. * Carpal tunnel syndrome (Dutch) * Fibromyalgia (Dutch) * Gabapentin, ADULT (Dutch) * Duloxetine, ADULT (Dutch) * Meloxicam, ADULT (Dutch) documented in this encounterProMediok Health SystemInstructionsNot on file documented in this encounterProMedica Health SystemInstructionsNot on file documented in this encounterProMedica Health SystemInstructionsNot on file documented in this encounterProMedica Health SystemInstructionsNot on file documented in this encounterProMedica Health SystemInstructionsNot on file documented in this encounterProMedica Health SystemInstructionsNot on file documented in this encounterProMedica Health SystemInstructionsNot on file documented in this encounterProOhio Valley Surgical Hospital SystemProgress note No data available for this section [facility] Reason for visit NarrativePATIENT IS HERE AT THE REQUEST OF DR. PISANO FOR HEP INFECTION AND ELEVATED LIVER ENZYMES. US REGAN MARTINEZ ADDER IN PT DOCS-LABS IN REFERRAL NOTESNonevada regional medical center [facility] Other Summary Purpose Family History No Family History Records Found Relationship Condition Age at Onset Recorded Date/T priya father Unknown family medical history Unknown Not SpecifiedFibromyalgiaUnknownDisorder of thyroidUnknown Relationship Condition Age at Onset Recorded Date/T priya father Unknown family medical history Unknown Not SpecifiedFibromyalgiaUnknownDisorder of thyroidUnknownNot SpecifiedDisorder of thyroidUnknown Relationship Condition Age at Onset Recorded Date/T priya father Unknown family medical history Unknown motherFibromyalgiaUnknownDisorder of thyroidUnknownmotherDisorder of thyroid Unknown Relationship Condition Age at Onset Recorded Date/T priya father Unknown family medical history Unknown motherFibromyalgiaUnknownDisorder of thyroidUnknown Advance Directives No Advanced Directives Records Found Advance Directive Response Recorded Date/ Time Advance Directives No December 18, 2018 8:54am Advance Directive Response Recorded Date/ Time Advance Directives No December 18, 2018 9:54am Code StatusDate ActivatedDate InactivatedCommentsFull Code02/20/2022 8:51 AM 02/20/2022 1:58 PMDate ActivatedDate KeydfbipikfFtfvbtdh23/13/2022 8:51 AM 02/20/2022 1:58 PMDate ActivatedDate InactivatedComments07/11/2024 8:34 PM07/15/2024 7:44 PMDate ActivatedDate DdqyiskqzmkHglijfcj51/13/2022 8:51 AM02/20/2022 1:58 PMDate ActivatedDate InactivatedComments07/11/2024 8:34 PM07/15/2024 7:44 PMDate ActivatedDate CahmuqhluuzPpudiyrk83/13/2022 8:51 AM02/20/2022 1:58 PM Chief Complaint and Reason for Visit Chief Complaint B15.9 R79.89 Chief Complaint B15.9 R79.89 Fatty Liver Chief Complaint B15.9 R79.89 Fatty Liver r79.89 r53.83 Chief Complaint M79.1 M25.50,R 76.0 UPPER BACK PAIN, KNEE PAIN FAT 1 Month Follow Up Stomach Issues Amb Documentation Marina-Referral Leatha Palacioeason for VisitFamily history of Luis thyroiditis Fatigue Fatty liver Multiple joint pain Obesities, morbid Sleep disturbance Vitamin D deficiency Chief Complaint M79.1 M25.50,R 76.0 UPPER BACK PAIN, KNEE PAIN FAT 1 Month Follow Up Stomach Issues Amb Documentation [place]-Referral Leatha Diaz k76.0 r73.9 k76.0Reason for VisitFamily history of Luis thyroiditis Fatigue Fatty liver Multiple joint pain Obesities, morbid Sleep disturbance Vitamin D deficiency Abnormal weight gain Fatty liver Sleep disturbance Bipolar disorder Chief Complaint knee issues Mental concerns 4 week follow upReason for VisitAdult BMI 50.0-59.9 kg/sq m Fatty liver Mixed hyperlipidemia Vitamin D deficiency Bipolar disorder Left knee pain Right knee pain Depression Adult BMI 50.0-59.9 kg/sq m Fatty liver Mixed hyperlipidemia Tachycardia Bronchitis Depression Chief Complaint knee issues Mental concerns 4 week follow up Metabolic testingReason for VisitLeft knee pain Right knee pain Depression Adult BMI 50.0-59.9 kg/sq m Fatty liver Mixed hyperlipidemia Tachycardia Bronchitis Depression Adult BMI 50.0-59.9 kg/sq m Fatty liver Mixed hyperlipidemia Tachycardia Chief Complaint Mental concerns 4 week follow up Metabolic testing cramping/blood in stoolReason for VisitDepression Adult BMI 50.0-59.9 kg/sq m Fatty liver Mixed hyperlipidemia Tachycardia Bronchitis Depression Adult BMI 50.0-59.9 kg/sq m Fatty liver Mixed hyperlipidemia Tachycardia Abdominal cramping Bloating Blood in stool Change in bowel habit Decreased appetite Left lower quadrant abdominal tenderness Chief Complaint 4 week follow up Metabolic testing cramping/blood in stool cyst still painfulReason for VisitBronchitis Depression Adult BMI 50.0-59.9 kg/sq m Fatty liver Mixed hyperlipidemia Tachycardia Abdominal cramping Bloating Blood in stool Change in bowel habit Decreased appetite Left lower quadrant abdominal tenderness Chief Complaint Metabolic testing cramping/blood in stool cyst still painfulReason for VisitAdult BMI 50.0-59.9 kg/sq m Fatty liver Mixed hyperlipidemia Tachycardia Abdominal cramping Bloating Blood in stool Change in bowel habit Decreased appetite Left lower quadrant abdominal tenderness Bloating Blood in stool Change in bowel habit Pilonidal cyst Chief Complaint Metabolic testing cramping/blood in stool cyst still painful stomach painReason for VisitAdult BMI 50.0-59.9 kg/sq m Fatty liver Mixed [...] Obesities, morbid February 25, 2024 3 :28pm Chief Complaint Admit Date change in bowel habit/abd distension & p ain/melena March 22, 2024 9:36am change in bowel habit/abd distension & p ain/melena March 22, 2024 10:10am cyst April 18, 2024 8 :23am Right lower back pain radiating down leg June 16, 2024 9:39am Reason for Visit Admit Date Pilonidal cyst April 18, 2024 8 :23am Sciatica, right side June 16, 2024 9:39am Chief Complaint Admit Date Right lower back pain radiating down leg June 16, 2024 9:39am Amb Documentation July 06, 2024 9:32am Mental Health August 31, 2024 1:0 3pm Reason for Visit Admit Date Sciatica, right side June 16, 2024 9:39am Anxiety August 31, 2024 1:0 3pm Depression August 31, 2024 1:0 3pm Bipolar disorder August 31, 2024 1:0 3pm Chief Complaint Admit Date Amb Documentation July 06, 2024 9:32am Mental Health August 31, 2024 1:0 3pm Check Up September 22, 2024 8:56a m Reason for Visit Admit Date Anxiety August 31, 2024 1:0 3pm Depression August 31, 2024 1:0 3pm Bipolar disorder August 31, 2024 1:0 3pm Chief Complaint Admit Date Mental Health August 31, 2024 1:0 3pm Check Up September 22, 2024 8:56a m pain in upper right stomach October 13 8:25am Reason for Visit Admit Date Anxiety August 31, 2024 1:0 3pm Depression August 31, 2024 1:0 3pm Bipolar disorder Kaila 23rd, 2025 1:0 3pm Anxiety September 22, 2024 8:56a m Depression September 22, 2024 8:56a m Bipolar disorder September 22, 2024 8:56a m Rib pain on right side October 13, 2024 8: 25am Reason for Referral SpecialtyDiagnoses / ProceduresReferred By ContactReferred To Contact Diagnoses Pain in both hands Bilateral carpal tunnel syndrome Procedures [facility] Magalie Cox PA [address] [facility] [address] [place] [address] Referral IDStatusReasonStart DateExpiration DateVisits RequestedVisits [id number] Review Reason CONSULT Diagnosis 1 Fatigue (R53.83) Diagnosis [...] section and content) DATE CREATED AUTHOR 01/06/2018 [facility] DATE CREATED AUTHOR AUTHOR'S ORGANIZ ATION 04/19/2021 [facility] DATE CREATED AUTHOR AUTHOR'S ORGANIZ ATION 05/02/2021 [facility] [employer] DATE CREATED AUTHOR AUTHOR'S ORGANIZ ATION 09/22/2022 [facility] DATE CREATED AUTHOR AUTHOR'S ORGANIZ ATION 06/22/2023 [facility] DATE CREATED AUTHOR AUTHOR'S ORGANIZ ATION 04/02/2024 [facility] DATE CREATED AUTHOR AUTHOR'S ORGANIZ ATION 07/07/2024 [facility] DATE CREATED AUTHOR AUTHOR'S ORGANIZ ATION 01/08/2025 [facility] DATE CREATED AUTHOR AUTHOR'S ORGANIZ ATION 01/12/2025 [facility] DATE CREATED AUTHOR AUTHOR'S ORGANIZ ATION 01/25/2025 [facility] DATE CREATED AUTHOR AUTHOR'S ORGANIZ ATION 02/15/2025 [facility] REASON FOR VISIT (unrecogniz ed section and content) ReasonCommentsNew PztrpgoJ52.50- Pain in unspecified joint R53.83 - Other fatigue R76.8- Other specified abnormal immunological findings in serumReason CommentsCystPilonidal cyst, H ER 01/21/24ReasonCommentsCystRECURRENT PILONIDAL CYSTReasonCommentsNew PatientIOC Er fu Epididymal cyst// Right hydrocele// Wyocena BCBSSpecialtyDiagnoses / ProceduresReferred By ContactReferred To Contact Urology Diagnoses Epididymal cyst Right hydrocele Tyler Bolton MD [address] [facility] [place] [address] Phone: tel: fax: [facility] [address] [place] [address] Phone: tel: fax: Referral IDStatusReasonStart DateExpiration DateVisits RequestedVisits [id number] Review Specialty Services Required /[id number] op excision of pilonidal cyst performed 01/02/25 at HReasonCommentssurgical discussion Care Teams (unrecognized sec tion and content) Team Status: Active Member Role Status Dates Baljit Pisano DO Primary Care Provider Active Team Status: Inactive Member Role Status Dates Baljit Pisano DO Primary Care Provider Active Genesis Ribeiro ProviderActive Team Status: Inactive Member Role Status Dates Wilver Felton MD Attending Provider Active Nabila Smyth Care ProviderActive Team Status: Inactive Member Role Status Dates Baljit Pisano DO Primary Care Provider Active [facility] Daly ProviderActive Team Status: Active Member Role Status Dates Leatha Diaz APRN FIRE OFFICIAL-C Primary Care Provider Active Team Status: Inactive Member Role Status Dates Baljit Pisano DO Primary Care Provider Active Start: May 19, 2023 End: May 19Monica Ibarraending ProviderActiveStart: May 19, 2023 End: May 19, 2023 Team Status: Inactive Member Role Status Dates Wilver Felton MD Attending Provider Active Start: May 26, 2023 End: May 26, 2023 Team Status: Inactive Member Role Status Dates Leatha Diaz APRN FIRE OFFICIAL-C Primary Care Provider, Attending Provider Active Start: July 07, 2023 End: July 07, 2023 Team Status: Active Member Role Status Dates Leatha Diaz APRN FIRE OFFICIAL-C Primary Care Provider, Attending Provider Active Start: July 08, 2023 Team Status: Active Member Role Status Dates Leatha Diaz APRN FIRE OFFICIAL-C Primary Care Provider Active Start: August 07, 2023 Montserrat Cardoza ProviderActiveStart: August 07, 2023 Team Status: Inactive Member Role Status Dates Leatha Diaz APRN FIRE OFFICIAL-C Primary Care Provider Active Start: August 13, 2023 End: August 12johnathan Tijerina MDAttending ProviderActiveStart: August 13, 2023 End: August 13, 2023 Team Status: Active Member Role Status Dates Leatha Diaz APRN FIRE OFFICIAL-C Primary Care Provider Active Start: August 07, 2023 Erick Rogers ProviderActiveStart: August 07, 2023 Team Status: Inactive Member Role Status Dates Leatha Diaz APRN FIRE OFFICIAL-C Primary Care Provider Active Start: August 19, 2023 End: August 18ROS Tolentino ProviderActiveStart: August 19, 2023 End: August 19, 2023 Team Status: Inactive Member Role Status Dates Leatha Diaz APRN FIRE OFFICIAL-C Primary Care Provider, Attending Provider Active Start: August 27, 2023 End: August 27, 2023 Team Status: Inactive Member Role Status Dates Leatha Diaz APRN FIRE OFFICIAL-C Primary Care Provider Active Start: September 10, 2023 End: September 09johnathan Tijerina MDAttending ProviderActiveStart: September 10, 2023 End: September 10, 2023 Team Status: Inactive Member Role Status Dates Leatha Diaz APRN FIRE OFFICIAL-C Primary Care Provider, Attending Provider Active Start: September 24, 2023 End: September 24, 2023 Team Status: Inactive Member Role Status Dates Leatha Diaz CLOTH CALENDER FIRE OFFICIAL-C Primary Care Provider, Attending Provider Active Start: October 12, 2023 End: October 12, 2023 Team Status: Active Member Role Status Dates Leatha Diaz CLOTH [employer]ER FIRE OFFICIAL-C Primary Care Provider Active Start: August 07, 2023 Erick Meier ProviderActiveStart: August 07, 2023 Team Status: Inactive Member Role Status Dates Leatha Diaz APRN FIRE OFFICIAL-C Primary Care Provider Active Start: October 22, 2023 End: October 21Monica Portilloending ProviderActiveStart: October 22, 2023 End: October 22, 2023 Team Status: Inactive Member Role Status Dates Leatha Diaz APRN FIRE OFFICIAL-C Primary Care Provider, Attending Provider Active Start: November 09, 2023 End: November 09, 2023 Team Status: Inactive Member Role Status Dates Leatha Diaz APRN FIRE OFFICIAL-C Primary Care Provider Active Start: December 09, 2023 End: December 08Monica Portilloending ProviderActiveStart: December 09, 2023 End: December 09, 2023 Team Status: Inactive Member Role Status Dates Leatha Diaz CLOTH [employer]ER FIRE OFFICIAL-C Primary Care Provider Active Start: December 15, 2023 End: December 14johnathan Tijerina MDAttending ProviderActiveStart: December 15, 2023 End: December 15, 2023 Team Status: Inactive Member Role Status Dates Leatha Diaz APRN FIRE OFFICIAL-C Primary Care Provider, Attending Provider Active Start: December 31, 2023 End: December 31, 2023 Team Status: Inactive Member Role Status Dates Leatha Diaz , CLOTH [employer]ENDER FIRE OFFICIAL-C Primary Care Provider, Attending Provider Active Start: January 28, 2024 End: January 28, 2024 Team Status: Inactive Member Role Status Dates Leatha Diaz , [employer]OTH [employer] FIRE OFFICIAL-C Primary Care Provider Active Start: February 09, 2024 End: February 08Genesis Portillo ProviderActiveStart: February 09, 2024 End: February 09, 2024 Team Status: Inactive Member Role Status Dates Leatha Diaz APRN FIRE OFFICIAL-C Primary Care Provider, Attending Provider Active Start: February 25, 2024 End: February 25, 2024 Team Status: Inactive Member Role Status Dates Leatha Diaz APRN FIRE OFFICIAL-C Primary Care Provider Active Start: March 222023 End: March 22, 2024Imacarmella Felton MDAttending ProviderActiveStart: March 22, 2024 End: March 22, 2024 Team Status: Active Member Role Status Dates Leatha Diaz APRN FIRE OFFICIAL-C Primary Care Provider Active Start: March 222023 Wilver Felton MDAttending Provider, Other ProviderActiveStart: March 22, 2024 Team Status: Inactive Member Role Status Dates Leatha Diaz APRN FIRE OFFICIAL-C Primary Care Provider, Attending Provider Active Start: April 18, 2024 End: April 18, 2024 Team Status: Inactive Member Role Status Dates Leatha Diaz APRN FIRE OFFICIAL-C Primary Care Provider Active Start: June End: June 16, 2024Madneep Esquivel ProviderActiveStart: June 16, 2024 End: June 16, 2024Team MemberRelationshipSpecialtyStart DateEnd Date Baljit Pisano DO [address] [place] [address] PCP - 01/07/17Team MemberRelationshipSpecialtyStart DateEnd Date Leatha Diaz APRN-FIRE OFFICIAL [address] [place] [address] [facility] Team Status: Active Member Role Status Dates Leatha Diaz APRN FIRE OFFICIAL-C Primary Care Provider Active Start: July 062024 Adelaida Jiang CMAAttcris ProviderActiveStart: July 06, 2024 Team Status: Inactive Member Role Status Dates Leatha Diaz APRN FIRE OFFICIAL-C Primary Care Provider, Attending Provider Active Start: August 31, 2024 End: August 31, 2024 Team Status: Inactive Member Role Status Dates Leatha Diaz APRN FIRE OFFICIAL-C Primary Care Provider, Attending Provider Active Start: September 22, 2024 End: September 22, 2024 Team Status: Inactive Member Role Status Dates Leatha Diaz APRN FIRE OFFICIAL-C Primary Care Provider, Attending Provider Active Start: October 13, 2024 End: October 13, 2024Team MemberRelationshipSpecialtyStart DateEnd Date EmilySujeyLeathaREUBEN willard-FIRE OFFICIAL [address] [place] [address] PCP - GeneralNurse Practitioner01/21/24Team MemberRelationshipSpecialtyStart Date End Date EmilySujeyLeathaCHRISTY willardN-FIRE OFFICIAL [address] [place] [address] PCP - GeneralNurse Practitioner01/21/24Team MemberRelationshipSpecialtyStart Date End Date PatLeatha gavinCHRISTYN-FIRE OFFICIAL [address] [place] [address] PCP - GeneralNurse Practitioner01/21/24Team MemberRelationshipSpecialtyStart Date End Date LucasmarlenLeatha daleCHRISTYN-FIRE OFFICIAL [address] [place] [address] PCP - GeneralNurse Practitioner01/21/24Team MemberRelationshipSpecialtyStart Date End Date EmilySujeyLeathaCHRISTYN-FIRE OFFICIAL [address] [place] [address] PCP - GeneralNurse Practitioner01/21/24Team MemberRelationshipSpecialtyStart Date End Date Leatha Diaz APRFAIZA [address] [place], [place] [id number] PCP - GeneralNurse Practitioner01/21/24 Goals (unrecognized section and content) Goals may [...] BE BASED ON THE PRIMARY CLINICAL RECORDS. [employer] provides no warranty or guarantee of the accuracy or completeness of information in this document.
--- OUTSIDE RECORDS SUMMARY | 2025-03-01 09:22 | XMS_ITS | Clinical Summary ---
Author Organization [facility] Address [address] [place] [address] Care Team Providers Care Snapper On Name Role Phone Unavailable Primary Care Provider Unavailabl e Social History Tobacco UseTypesPacks/DayYears UsedDateSmoking Tobacco: Never AssessedSex and Gender InformationValueDate RecordedSex Assigned at BirthNot on fileLegal Sex Male07/23/2022 8:05 PM EDTGender IdentityNot on fileSexual OrientationNot on file Last Filed Vital Signs Vital SignReadingTime TakenCommentsBlood Pressure--Pulse--Temperature-- Respiratory Rate--Oxygen Saturation--Inhaled Oxygen Concentration--Nvgjtp397 kg (300 lb)05/14/2021 12:00 PM UPHRjrkai307.9 cm (6')05/14/2021 12:00 PM ESTBody Mass Index40.69005/14/2021 12:00 PM EST Plan of Treatment Not on file Insurance * Guarantor: Paul DuncannAccount TypeRelation to PatientDate of BirthPhone Billing AddressPersonal/VzsbwjHami02/03/2006 [facility] [place] [address]
--- OUTSIDE RECORDS SUMMARY | 2025-03-01 09:22 | XMS_ITS | Clinical Summary ---
Author Organization [facility] Address [address] [place] [address] Care Team Providers Care Thread Marker Name Role Phone Baljit Briscoe Primary Care Provider [phone] Social History Tobacco UseTypesPacks/DayYears UsedDateSmoking Tobacco: Never AssessedSex and Gender InformationValueDate RecordedSex Assigned at BirthNot on fileLegal Sex Male12/18/2017 1:48 PM EDTGender IdentityNot on fileSexual OrientationNot on file Plan of Treatment Health MaintenanceDue DateLast DoneCommentsMMR Vaccine (1 of 1 - Standard series)07/11/2004DTaP/Tdap/Td Vaccine (1 - Tdap)07/11/2010Varicella Vaccine (1 of 2 - 13+ 2-dose series)07/11/2016HPV Vaccine (1 - Male 3-dose series) 07/11/2018Meningococcal B Vaccine (1 of 2 - Standard)2019Hepatitis B Vaccine (1 of 3 - 19+ 3-dose series)3COVID-19 Vaccine (1 - season)2025Influenza Vaccine (#1)2025HIB VaccineAged OutNo longer eligible based on patient's age to complete this topicHepatitis A VaccineAged OutNo longer eligible based on patient's age to complete this topicIPV Vaccine Aged OutNo longer eligible based on patient's age to complete this topic Meningococcal ACWY VaccineAged OutNo longer eligible based on patient's age to complete this topicPneumococcal VaccineAged OutNo longer eligible based on patient's age to complete this topicRSV AntibodiesAged OutNo longer eligible based on patient's age to complete this topicRotavirus VaccineAged OutNo longer eligible based on patient's age to complete this topic Insurance * Guarantor: Sarahy REYES TypeRelation to PatientDate of BirthPhoneBilling AddressPersonal/QyrjyiVnzady18/17/1984 [facility] [place] [address] MemberSubscriberPlan / Payer (Effective for All Dates)Name:Ta Duncan Member ID:Not on file Relation to Subscriber:ChildName:KARINA REYES Date of :1987 (Home) Address: [facility] [place] [address] Payer ID:[facility] Group ID:Not on file Type:Other Address: [place] [phone] * Guarantor: Sarahy REYES TypeRelation to PatientDate of BirthPhoneBilling AddressPersonal/ZgfglzBlkeof43/17/1982 [facility] [place] [address] [place] [address] Care Teams Team MemberRelationshipSpecialtyStart DateEnd Baljit Briscoe [address] [place] [address] PCP - GeneralFamily Medicine8/17/18
--- NOTE | 2025-03-01 09:28 | XR_ITS ---
[address] [address] Patient Name: JET HERRERA MRN: [id number] date: 2005 Sex: M Assigned Patient Location: [facility] Current Patient Location: LAB Accession/Order Number: [id number] Exam Date: 03/01/2025 09:35 Report Date: 03/01/2025 10:39 At the request of: SHERRI ORDOÑEZ Procedure: XR foot RT min 3V CLINICAL DATA: Lateral posterior right foot/ankle lump for the past 1 to 2 weeks. No injury. RIGHT ANKLE - 3 views COMPARISON: None AP, lateral and oblique views were obtained. A marker was placed at the site of patient's lump. There is no evidence of fracture or dislocation. The talar dome is intact. There are no specific soft tissue abnormalities or radiopaque foreign bodies.. XR/XR ankle RT min 3V IMPRESSION: NO ACUTE BONY FINDINGS. RIGHT FOOT - 3 views COMPARISON: None AP, lateral and oblique views were obtained. A marker was placed at the site of clinical concern. There is no evidence of fracture or dislocation. There are no significant soft tissue abnormalities. IMPRESSION: NO ACUTE BONY FINDINGS. Impression dictated by: Delfina Mcnamara M.D. 03/01/2025 10:39 AM Dictation Location: [place] [address] Electronically authenticated by: [id number] Y Date: 03/01/2025 10:39
--- NOTE | 2025-03-01 09:28 | XR_ITS ---
[address] [address] Patient Name: JET HERRERA MRN: [id number] date: 2005 Sex: M Assigned Patient Location: [facility] Current Patient Location: LAB Accession/Order Number: [id number] Exam Date: 03/01/2025 09:35 Report Date: 03/01/2025 10:39 At the request of: SHERRI ORDOÑEZ Procedure: XR foot RT min 3V CLINICAL DATA: Lateral posterior right foot/ankle lump for the past 1 to 2 weeks. No injury. RIGHT ANKLE - 3 views COMPARISON: None AP, lateral and oblique views were obtained. A marker was placed at the site of patient's lump. There is no evidence of fracture or dislocation. The talar dome is intact. There are no specific soft tissue abnormalities or radiopaque foreign bodies.. XR/XR foot RT min 3V IMPRESSION: NO ACUTE BONY FINDINGS. RIGHT FOOT - 3 views COMPARISON: None AP, lateral and oblique views were obtained. A marker was placed at the site of clinical concern. There is no evidence of fracture or dislocation. There are no significant soft tissue abnormalities. IMPRESSION: NO ACUTE BONY FINDINGS. Impression dictated by: Delfina Mcnamara M.D. 03/01/2025 10:39 AM Dictation Location: [place] [address] Electronically authenticated by: [id number] Y Date: 03/01/2025 10:39
== END 2025-03-01 09:18 | disposition home or self-care (01) ==
LOC: RAD 09:18
PROVIDERS: PCP Nurse Practitioner Family; Visit Provider Nurse Practitioner Family
DX: M25.571 Pain in right ankle and joints of right foot (principal); M79.671 Pain in right foot
CPT/HCPCS: 73610; 73630

== ENCOUNTER 2025-03-03 09:57 | Outpatient (OUT) | payer BC, SELFPAY ==
--- OUTSIDE RECORDS SUMMARY | 2024-11-02 04:45 | XMS_ITS ---
Author Organization [facility] Address [address] [place] [address] Care Team Providers Care Drop Board Man Name Role Phone Caleb Corbin Primary Care Provider SHERRI ORDOÑEZ Unavailable REASON FOR VISIT 1 month f/u Encounters Encounter Location Date Provider Diagnosis [place] [address] [place] [address] 2024 Caleb Corbin Plan Of Treatment No Information Progress Notes * JET HERRERA ADOB:2005 (19 yo M)Acc No.[id number]:11/02/2024 Behavioral Health Patient: JET CASEY :?CINDY MarieePDOB:2005???Age:19 Y???Sex: MaleDate:11/02/2024Phone:[phone]:[address] [place] [address] Subjective: * Chief Complaints: * 1 month f/u Billing Information: * Procedure Codes: * Electronic signature of TE Mariee on 03/03/2025 at 10:00 AM EDTSign off status: Pending * Provider: TE Valles Date: 0 11/02/2024 Generated for Printing/Faxing/eTransmitting on:?03/03/2025 10:00 AM EDT
--- OUTSIDE RECORDS SUMMARY | 2025-03-02 12:15 | XMS_ITS | Encounter Summary ---
Author Organization [facility] tem Address [id number] [address] [place] [address] Care Team Providers Care Telemarketing Sales Representative Name Role Phone Leatha Diaz Primary Care Provid er Encounter Details DateTypeDepartmentCare Team (Latest Contact Info)Kefsjfazzbf96/23/2025 12:15 PM EDTProcedure visit [facility] On [address] [address] Spermatocele Social History Tobacco UseTypesPacks/DayYears UsedDateSmoking Tobacco: NeverSmokeless Tobacco: NeverAlcohol UseStandard Drinks/WeekCommentsNot Currently0 (1 standard drink = 0.6 oz pure alcohol)none since julyHC UtilitiesAnswerDate RecordedIn the past 12 months has the [employer], gas, oil, or water [employer] threatened to shut off services in your home?No07/11/2024PRAPARE - TransportationAnswerDate RecordedIn the past 12 months, has lack of transportation kept you from medical appointments or from getting medications?No07/11/2024In the past 12 months, has lack of transportation kept you from meetings, work, or from getting things needed for daily living?No07/11/2024Housing InstabilityAnswerDate RecordedAre you worried or concerned that in the next two months you may not have stable housing that you own, rent or stay in as a part of a household?No07/11/2024 ChildcareAnswerDate QqpbssquFjthvylatInrmzec32/12/2019EmploymentAnswerDate MvklvjipFujbwsywzwSckhswc49/12/2019Hunger ScreeningAnswerDate RecordedWithin the past 12 months we worried whether our food would run out before we got money to buy more.Never True03/02/2025Within the past 12 months the food we bought just didn't last and we didn't have money to get more.Never True03/02/2025Purpose - LifeAnswerDate RecordedPurpose and direction in svuwPzurkcs11/11/2021ex and Gender InformationValueDate RecordedSex Assigned at BirthNot on fileLegal Sex Male12/14/2014 12:01 PM EDTGender IdentityNot on fileSexual OrientationNot on filedocumented as of this encounter Last Filed Vital Signs Vital SignReadingTime TakenCommentsBlood Lxpzuwqh240/7903/02/2025 12:24 PM EDT Ucsfx42871/23/2025 12:24 PM PMVSibrugrbbfh75.2 ??C (97.1 ??F)03/02/2025 12:24 PM EDTRespiratory Dtwe1711 12:24 PM EDTOxygen Qcflemgogp40%03/02/2025 12:24 PM EDTInhaled Oxygen Concentration--Jhwhlu759.9 kg (456 lb 2.1 oz)03/02/2025 12:24 PM NVSMuejgs548.9 cm (6')03/02/2025 12:24 PM EDTBody Mass Index61.86 03/02/2025 12:24 PM EDTdocumented in this encounter Patient Instructions * Patient Instructions* Danae Bell RN - 03/02/2025 12:15 PM EDT Your surgery/procedure is scheduled at [facility] on 03/16/25 at 1:00 pm Arrival Time 11:[address] [facility] Address: [address] [place] [address]. [address]1 Parking lot located on [facility]. Report to the Entrance B. Check in at the information desk. The waiting room is located on the second floor. If you have any questions prior to surgery, please call Pre-Admission Clinic at [phone] between 7:30 am and 4:30 pm Thursday through Thursday. If you have questions the morning of surgery, please call the Pre-op Department at [phone]. Notify your SURGEON if you develop any illness such as a cold, cough, fever, sore throat, vomiting or are hospitalized between now and your surgery. Medication Instructions (Do not stop your medications without consulting the prescribing physician). Take the following medications the morning of surgery with a sip of water: sertraline and abilify Diabetic or Weight loss medications: na Take inhalers as prescribed the morning of surgery. Due to the risk associated with these medications. If these medications are not held per instruction below, your surgery is at an increased risk for cancellation. SGLT2 Medications- Hold 3 days prior to surgery: Jardiance, Empagliflozin, Farxiga, Dapagliflozin, Invokana, Canagliflozin, Trijardy, Synjardy GLP-1 Medications (Injection or Pill)- If taken daily hold day of surgery. If taken weekly, hold 1 week prior to surgery: Adlyxin, Byetta, Bydureon, Ozempic, Rybelsus,Trulicity, Victoza, Wegovy, Lixisenatide, Exenatide, Semaglutide, Dulaglutide, Liraglutide GIP/GLP-1(Injection or Pill)- If taken daily hold day of surgery. If taken weekly, hold 1 week prior to surgery: Michaelunjaro . Blood thinners: Please contact your prescribing physician regarding a stop/hold date for these medications. Medications such as Coumadin, Heparin, Aspirin, Plavix, Eliquis, Pradaxa Diabetics: If you take insulin, contact your prescribing doctor for instructions on how to manage this the night before and the morning of surgery. Non-steriodal Anti-Inflammatory Drugs (NSAIDS)- Hold 3 days prior to surgery unless otherwise directed by your surgeon. Vitamins/Herbal Products: You may continue to take your prescribed vitamins such as potassium, iron, vitamin B, vitamin C, or multivitamin unless specifically instructed by your surgeon to hold. STOPtaking all herbal products/teas one week prior to your surgery. Marijuana: Stop marijuana 72 hours prior to surgery, stop CBD oil 48 hours prior to surgery. What do I do the day of Surgery? Age 2 through adult - Stop all solids by midnight, You may have a small amount of clear liquids up to 2 hours before surgery, unless otherwise instructed by your surgeon. Clear liquids are: water, sports drinks such as Gatorade or G2, or apple juice. You may NOT have: tube feedings, dairy products, alcoholic beverages, orange juice, or any liquids with solids or pulp in it. In order to help prevent infection post-operatively, you may be asked to use a CHG mouthwash when you arrive to the Pre-op area. Your nurse will provide instruction the morning of. What do I need to do to prepare for surgery? If you will be going home the same day as your surgery, arrange for an adult over [address] Riding in a bus or taxi by yourself is not permitted. You should not smoke or drink alcohol 24 hours before your surgery. Alcohol thins the blood and may cause bleeding problems during surgery. Smoking increases the risk of breathing problems after surgery. Do not use lotions, creams, powders, perfume, make up, cologne or after-shaves day of surgery. Remove ALL jewelry including wedding rings, body piercings (including dermal piercing's, hair extensions that contain metal, nail lithuanian, make-up, and contact lens. You may brush your teeth the morning of surgery, but do not swallow the water. Wear your dentures and partial plates to the hospital (no adhesive). Shower the night before or morning of your procedure. Place clean linens on your bed after showering and put on freshly laundered nightclothes. Do not allow pets to sleep in your bed What should I bring to the hospital? Eyeglass or contact lens case If you will be spending the night, please bring personal care items and leave them in the car untilyou are taken to your room after surgery. Leave ALL valuables at home. If any of these instructions conflict with those you received from the surgeon, please seek clarification from your surgeon's office. DEEP BREATHING EXERCISES This exercise helps promote good air exchange and helps to prevent pneumonia after surgery. Breathe in slowly and deeply through the nose. Hold your breath for a few seconds and then exhale slowly through the mouth. Repeat this three times and then cough.Coughing helps to clear your lungs. If you have had a surgery with an incision into your abdomen or chest, press gently against your incision with a pillow or a folded blanket when you cough. Please be aware - it may not be bateman to cough following some types of surgeries involving the eyes,ears, sinuses and throat. Always follow your doctor's instructions. LEG EXERCISE These exercises help promote good circulation and help to prevent blood clots after surgery. Point your toes to the ceiling and then point them to the wall. Do this slowly about 15-20 times. You may also move your feet in circles. Do the exercise that is most comfortable for you. If you have had surgery involving your shoulder or arm, we recommend you move your fingers. PRACTICING We ask that you begin practicing these exercises before your surgery. After surgery try to do both exercises at least every 2 hours during the day and early evening. Surgical Site Infection Prevention What is a Surgical Site Infection (SSI)? Infection can happen to the area of the body where surgery is done. This is called a surgical site infection (SSI). A SSI does not happen very often. What are some of the things that hospitals are doing to prevent SSIs? Soap and water or alcohol hand rub are used before and after caring for each patient. Special soap is used to clean surgery workers hands and arms just before the surgery. Masks, gowns, gloves and hair covers are worn during the surgery to keep the area clean. Hair in the surgery area may be removed with clippers (not razors). A special soap that kills germs is used to clean the skin at the surgery site. Antibiotics may be given before the surgery starts. What can you do to prevent SSIs? Before surgery: You may be asked to shower or bathe with a special soap that kills germs the night before and the day of surgery. Use the soap as you were told. Place clean sheets on your bed the night before surgery and do not allow your pets in your bed. If you smoke or vape, stop or cut down. This creates a stress response in your body that increases inflammation, constricts blood vessels and deprives your tissues of oxygen. After surgery, this stress response disrupts the travel of oxygen, nutrients, and blood to your surgical site, interfering with the wound healing process. It also decreases the ability of your cells to fight infection. Ask your doctor about ways to quit. If you have high blood sugars or diabetes please talk with your doctor about having healthy blood sugar levels to promote healing. Do not shave near where you will have surgery. Shaving can irritate the skin and make it easier to get and infection. After surgery: Be sure that the doctors and nurses clean their hands before and after touching you. Be sure your family and friends clean their hands before and after visiting you. Do not be afraid to remind them. Always wash your hands before touching your incisional area. * Care for your wound at home as told by your doctor or nurse * Call your doctor right away if you have fever, redness, increased pain, or drainage at the surgery site. Can SSIs be treated? Antibiotics are used to treat SSI. Some patients may need another surgery to treat the infection. The doctor will discuss treatment options with you. Further questions? Contact the doctor, nurse or the Infection Prevention and Control department if you have any questions. PATIENT RIGHTS AND RESPONSIBILITIES As a patient at [facility], you have the right to: Receive medical care and be informed of who is taking care of you Be treated with dignity and respect Have a family member/retail service representative of choice and your physician notified of your admission Receive information and actively participate in decisions about your care and treatment Refuse care, treatment and services Decide who may provide your support and speak for you Access pentecostalism and spiritual services Participate in ethical issues and questions about your care Receive private and confidential care Have appropriate assessment and management of your pain Know guest visitation restrictions or limitations Have an advance directive Access protective services Consent or refuse to participate in research studies or production or recordings, films or other images Have resolution of your complaints Receive information of hospital charges and payment methods Patient/patient retail service representative responsibilities are to: Provide information about health status to facilitate care, treatment and services Follow the treatment, plan, keep appointments and speak up when you do not understand the plan Respect the rights of other patients and healthcare personnel Follow organizational rules and regulations that support quality care and a safe environment Fulfill financial obligations as promptly as possible documented in this encounter H&P Notes * JESSICA Pacheco - 03/02/2025 12:15 PM EDT PRE-ADMISSION TESTING HISTORY AND PHYSICAL EXAM DATE: 03/02/25 PCP: Leatha Rohrbacher, STREETCAR REPAIRER HELPER-MANAGER DIABETES CHIEF COMPLAINT: spermatocele HISTORY OF PRESENT ILLNESS: Ta Duncan, a 19 y.o. White or male, presents to [facility] for a pre-surgical H&P. The patient has been diagnosed with a right spermatocele. He complains of a painful lump of the right testicle. He c/o right testicular swelling. He c/o urinary frequency. He denies problems with ejaculation. He denies dysuria and hematuria. Anesthesia problems: pt denies. Latex allergy: pt denies. Bleeding/ clotting disorders: pt denies. Recent hospitalizations: pt denies. PAST MEDICAL HISTORY: Past Medical History: Diagnosis Date Acute appendicitis 02/20/2022 Anxiety Bipolar disorder ([facility]) Depression Fibromyalgia Fractures Headache Liver disease fatty liver Mood disorder Morbid obesity ([facility]) 03/02/2025 Sleep apnea does not use a cpap Spermatocele 03/02/2025 URI, acute 07/03/2024 Visual impairment PAST SURGICAL HISTORY: Past Surgical History: Procedure Laterality Date COLONOSCOPY ESOPHAGOGASTRODUODENOSCOPY EXCISION CYST PILONIDAL N/A 01/02/2025 [facility]/20/2022 Performed by Dean Atkins DO at [facility] FAMILY HISTORY: Family History Problem Relation Age of Onset Anesthesia problems Neg Hx SOCIAL HISTORY: The patient reports that he does not currently use alcohol. He reports that he has never smoked. He has never used smokeless tobacco. He reports that he does not currently use drugs. ALLERGIES: Allergies Allergen Reactions Penicillins Anaphylaxis and Hives MEDICATIONS: Current Outpatient Medications: ARIPiprazole (ABILIFY) 5 mg tablet, Take 1 tablet (5 mg total) by mouth in the morning., Disp: 90 tablet, Rfl: 1 sertraline (ZOLOFT) 100 mg tablet, Take 1 tablet (100 mg total) by mouth in the morning., Disp: , Rfl: REVIEW OF SYSTEMS: Review of Systems Constitutional: Negative for fever. HENT: Negative for dental problem, ear pain, rhinorrhea, sore throat and trouble swallowing. Eyes: Negative for redness. Respiratory: Negative for cough and shortness of breath. Cardiovascular: Negative for chest pain. Gastrointestinal: Negative for nausea, vomiting and diarrhea. Musculoskeletal: Positive for joint swelling (right ankle, following with PCP). Skin: Positive for wound (states still has a surgical wound from pilonidal cyst excision on 01/02/25, still packing the wound, still following with the surgeon, next appt 03/13/25). Negative for rash. Neurological: Negative for seizures and syncope. Psychiatric/Behavioral: The patient is not nervous/anxious. VITAL SIGNS: BP 139/79 Pulse 107 Temp 36.2 ??C (97.1 ??F) (Temporal) Resp 20 Ht 182.9 cm (6') Wt (!) 206.9 kg (456 lb 2.1 oz) SpO2 97% BMI 61.86 kg/m?? PHYSICAL EXAM: Physical Exam Constitutional: General: He is not in acute distress. Appearance: He is not toxic-appearing or diaphoretic. HENT: Head: Atraumatic. Nose: No rhinorrhea. Mouth/Throat: Mouth: Mucous membranes are moist. Pharynx: No posterior oropharyngeal erythema. Eyes: Conjunctiva/sclera: Conjunctivae normal. Pupils: Pupils are equal, round, and reactive to light. Cardiovascular: Rate and Rhythm: Regular rhythm. Tachycardia present. Heart sounds: No murmur heard. Pulmonary: Effort: Pulmonary effort is normal. No respiratory distress. Breath sounds: No wheezing, rhonchi or rales. Abdominal: General: Bowel sounds are normal. Tenderness: There is no guarding. Musculoskeletal: General: Swelling (ankles) present. Skin: General: Skin is warm and dry. Neurological: Mental Status: He is alert and oriented to person, place, and time. Psychiatric: Mood and Affect: Mood normal. Behavior: Behavior normal. Behavior is cooperative. PERTINENT TESTING AVAILABLE IN [facility] (WITHIN THE PAST 2 YEARS): EK12/15/24 Sinus tachycardia Low voltage, precordial leads RECENT LABS: Lab Results Component Value Date WBC 9.4 07/11/2024 HGB 15.5 07/11/2024 HCT 43.5 07/11/2024 PLT 248 07/11/2024 SODIUM 143 12/15/2024 K 3.9 12/15/2024 CL 103 12/15/2024 CO2 28 12/15/2024 CALCIUM 10.2 12/15/2024 ALKPHOS 81 07/11/2024 ALBUMIN 4.3 07/11/2024 GLU 90 12/15/2024 HGBA1C 5.5 2024 ALT 60 (H) 07/11/2024 AST 38 07/11/2024 CREATININE 0.96 12/15/2024 BUN 14 12/15/2024 EGFR >90 12/15/2024 *Please note that labs listed above are the most recent lab values available in [facility] at the time ofthe appointment. ASSESSMENT / DIAGNOSIS: Linked DX: Spermatocele [608.1] PLAN: Ta Duncan is scheduled for Case Date: 03/16/2025 Linked Surgeon: Ronnie Shell MD Linked Procedure: SPERMATOCELECTOMY - Right. Testing performed in Pre-Admission Clinic today: / JESSICA Pacheco 03/02/25 1243 documented in this encounter Plan of Treatment DateTypeDepartmentCare Team (Latest Contact Info)Ftbkydyallc70/03/2025 10:30 AM ESTOffice Visit [facility] [address] [place] [address] Franci Byrd [facility] [address] [place] [address] 03/16/2025 1:00 PM ESTHospital Encounter [address] [phone] Kwame Shell MD [address] [place] [address] 03/16/2025 1:00 PM EST - 03/16/2025 3:[address] [phone] Kwame Shell MD [address] [place] [address] SPERMATOCELECTOMY [[id number] (CPT??)]NameTypePriorityAssociated DiagnosesDate/Time Urine CultureMicrobiologyRoutine Spermatocele 03/02/2025 12:24 PM EDTNamePriorityAssociated DiagnosesDate/Time SPERMATOCELECTOMY Spermatocele 03/16/2025 1:00 PM ESTdocumented as of this encounter Goals GoalPatient Goal TypeAssociated ProblemsRecent ProgressPatient-Stated?Author Autogenerated Goal Care PlanAutogenerated ProblemNoGriffin, Naomidocumented as of this encounter Procedures Procedure NamePriorityDate/TimeAssociated DiagnosisCommentsURINALYSISRoutine 03/02/2025 12:24 PM EDT Spermatocele documented in this encounter Results * Urinalysis (03/02/2025 12:24 PM EDT)ComponentValueRef RangeTest MethodAnalysis TimePerformed AtPathologist AqxdlodlmLJFJGXxqrwuMrhzjx90/23/2025 3:54 PM EDT [facility] YEWCOXWAKJHDVDZIWIDLmyizLptkc88/23/2025 3:54 PM EDT [facility] LABORATORYSPECIFIC GRAVITY1.0271.003 - 1.035 03/02/2025 3:54 PM [facility] LABORATORYNITRITENegative Fchbkffs01/23/2025 3:54 PM [facility] LABORATORYPH,URINE6.0 5.0 - 8.510 3:54 PM [facility] LABORATORYLEUKOCYTE SWQCFWDGWkcbhhjtItbggyvr69/23/2025 3:54 PM [facility] SRTIEGRQOWMBYXPARRkcwnfhyAzibjmmz37/23/2025 3:54 PM [facility] LABORATORYKETONES (URINE)WxgzmizgWtdavuib45/23/2025 3:54 PM [facility] LABORATORYUROBILINOGEN<1.1 eu/dL<1.1 eu/dL03/02/2025 3:54 PM [facility] LABORATORYBILIRUBIN (URINE)NegativeNegative 03/02/2025 3:54 PM [facility] LABORATORYBLOOD/HGBNegative Ygkagjce16/23/2025 3:54 PM [facility] LABORATORYGLUCOSE (URINE)AjqjiacoPabhprvo84/23/2025 3:54 PM [facility] LABORATORYSpecimen (Source)Anatomical Location / LateralityCollection Method / VolumeCollection TimeReceived TimeUrineUrine / UnknownCollection / Unknown 03/02/2025 12:24 PM EDT1 12:24 PM EDT Narrative Authorizing ProviderResult TypeResult StatusDavirenata MERCHANT ORDERABLESFinal ResultPerforming OrganizationAddressCity/State/ZIP CodePhone Number [facility] [address] [place] [address], documented in this encounter Visit Diagnoses Diagnosis Spermatocele- Primary Spermatocele Spermatocele documented in this encounter Additional Health Concerns Active ProblemsNoted DateDiagnosed DateAutogenerated Onubkip5802/17/2025documented as of this encounter Care Teams Team MemberRelationshipSpecialtyStart DateEnd Date Leatha Diaz APRN-CHECO [address] [place] [address] PCP - GeneralNurse Practitioner01/21/24documented as of this encounter
--- OUTSIDE RECORDS SUMMARY | 2025-03-03 10:00 | XMS_ITS | Encounter Summary ---
Author Organization [facility] tem Address [id number] [address] [place] [address] Care Team Providers Care Apartment Assistant Manager Name Role Phone Leatha Diaz Primary Care Provid er Encounter Details DateTypeDepartmentCare Team (Latest Contact Info)Sbskkyfwhkp55/23/2025Travel Social History Tobacco UseTypesPacks/DayYears UsedDateSmoking Tobacco: NeverSmokeless Tobacco: NeverAlcohol UseStandard Drinks/WeekCommentsNot Currently0 (1 standard drink = 0.6 oz pure alcohol)none since julyHC UtilitiesAnswerDate RecordedIn the past 12 months has the electric, gas, oil, or water [facility] threatened to shut off services in your [...] as a part of a household?No07/11/2024 ChildcareAnswerDate JrbketqmJhwqathlyDbgezgg38/12/2019EmploymentAnswerDate NpzhcmxmCwgqppjfuwYgigund55/12/2019Hunger ScreeningAnswerDate RecordedWithin the past 12 months we worried whether our food would run out before we got money to buy more.Never True03/02/2025Within the past 12 months the food we bought just didn't last and we didn't have money to get more.Never True03/02/2025Purpose - LifeAnswerDate RecordedPurpose and direction in owbiTxypyjl13/11/2021ex and Gender InformationValueDate RecordedSex Assigned at BirthNot on fileLegal Sex Male12/14/2014 12:01 PM EDTGender IdentityNot on fileSexual OrientationNot on filedocumented as of this encounter Plan of Treatment DateTypeDepartmentCare Team (Latest Contact Info)Otlmdykbftl82/03/2025 10:30 AM ESTOffice Visit [facility] [address] [place] [id number] Franci Byrd, TECHNICAL RESEARCH SCIENTIST-[facility] [address] [place], [place] [id number] 03/16/2025 1:00 PM ESTHospital Encounter [address] [phone] Kwame Shell MD [address] [place] [address] 03/16/2025 1:00 PM EST - 03/16/2025 3:[address] [phone] Kwame Shell MD [facility][note 3][address] [place] [address] SPERMATOCELECTOMY [[id number] (CPT??)]NamePriorityAssociated DiagnosesDate/Time SPERMATOCELECTOMY Spermatocele 03/16/2025 1:00 PM ESTdocumented as of this encounter Goals GoalPatient Goal TypeAssociated ProblemsRecent ProgressPatient-Stated?Author Autogenerated Goal Care PlanAutogenerated ProblemNoGriffin, Naomidocumented as of this encounter Visit Diagnoses Not on filedocumented in this encounter Additional Health Concerns Active ProblemsNoted DateDiagnosed DateAutogenerated Vcwabrl8002/17/2025documented as of this encounter Care Teams Team MemberRelationshipSpecialtyStart DateEnd Date Leatha Diaz APRN-CHEMISTRY MANAGER [address] [place] [phone] PCP - GeneralNurse Practitioner01/21/24documented as of this encounter
--- OUTSIDE RECORDS SUMMARY | 2025-03-03 10:00 | XMS_ITS | Clinical Summary ---
Author Organization [facility] Address [address] [place] [address] Care Team Providers Care Hadoop Admin Name Role Phone Unavailable Primary Care Provider Unavailabl e Social History Tobacco UseTypesPacks/DayYears UsedDateSmoking Tobacco: Never AssessedSex and Gender InformationValueDate RecordedSex Assigned at BirthNot on fileLegal Sex Male07/23/2022 8:05 PM EDTGender IdentityNot on fileSexual OrientationNot on file Last Filed Vital Signs Vital SignReadingTime TakenCommentsBlood Pressure--Pulse--Temperature-- Respiratory Rate--Oxygen Saturation--Inhaled Oxygen Concentration--Rzlgef775 kg (300 lb)05/14/2021 12:00 PM RGZBdhgno722.9 cm (6')05/14/2021 12:00 PM ESTBody Mass Index40.69005/14/2021 12:00 PM EST Plan of Treatment Not on file Insurance * Guarantor: Paul DuncannAccount TypeRelation to PatientDate of BirthPhone Billing AddressPersonal/WgcbuqHspu18/03/2004 [facility] [place] [address]
--- OUTSIDE RECORDS SUMMARY | 2025-03-03 10:00 | XMS_ITS | Clinical Summary ---
Author Organization Verifico s tem Address [id number] [address] [place] [address] Care Team Providers Care Investigations Consultant Name Role Phone Leatha Diaz Primary Care Provid er Allergies Active AllergyReactionsCriticalityNoted DateCommentsPenicillinsAnaphylaxis,Hives High01/07/2017 Medications * This document contains information received from the source organization and may not represent a complete record from that organization. MedicationSigDispense QuantityRefillsLast FilledStart DateEnd DateStatus ARIPiprazole (ABILIFY) 5 mg tablet Indications:MDD (major depressive disorder), recurrent severe, without psychosis (CMS-HCC)Take 1 tablet (5 mg total) by mouth in the morning. 90 tablet tive sertraline (ZOLOFT) 100 mg tablet Take 1 tablet (100 mg total) by mouth in the morning.Active ibuprofen (MOTRIN) 800 mg tablet Take 1 tablet (800 mg total) by mouth every 8 (eight) hours as needed for pain. 30 tablet /10/2024Discontinued(Patient Stopped On Own) Active Problems ProblemNoted DateDiagnosed DateMorbid ltvvkfz0903/02/20259604Qblkxewifglb62/21/2025 Epididymal cyst01/12/2025 Overview (01/24/2025): 01/24/25 Discussed risks benefits complications of surgery. Patient risk factors include obesity. Understands we would like to proceed. 01/11/25 Interested in surgical removal of cyst. Therefore, we will schedule him with Dr. Shell for further discussion. He declined exam today. Will defer to Dr Shell. I recommend ice, elevation, Nsaids for pain MDD (major depressive disorder), recurrent severe, without untcgpuxi21/04/2025 Generalized anxiety disorder with panic fegorna8107/12/2024t risk for intentional self-harm07/11/2024Sleep apnea Overview (03/02/2025): does not use a cpap Resolved Problems ProblemNoted DateDiagnosed DateResolved DateAcute mlananyyyfki26/13/2022 03/02/2025 Encounters DateTypeDepartmentCare JdnfRjhcxcvixff46/23/2025 12:15 PM EDTProcedure visit [facility] On [address] [address] Ahwbqtrjfttf99/23/1800Rrgbmy28/06/2025 10:15 AM EDTOffice Visit [facility] [address] [place] [address] Franci Byrd APRN-POST ACUTE CARE REGISTERED NURSE Pilonidal disease (Primary Dx)02/13/20257472Ojgwqo15/16/2025 10:30 AM EDTOffice Visit [facility] [address] [place] [address] Kwame Shell MD Epididymal cyst (Primary Dx)01/24/2025Telephone [facility] [address] [place] [address] Kwame Shell MD 01/24/20250995Duqqwe05/11/2025Telephone [facility] [address] [place] [address] Bere Dang RMA 01/16/2025 9:30 AM EDTOffice Visit [facility] [address] [place] [address] Franci Byrd APRN-POST ACUTE CARE REGISTERED NURSE Pilonidal disease (Primary Dx)01/16/20258536Hhbyro35/03/2025 10:30 AM EDTOffice Visit [facility] [address] [place] [address] [place] [address], [place] [address] Enid Taveras APRN-POST ACUTE CARE REGISTERED NURSE Epididymal cyst (Primary Dx); Right afxsuzxgm54/03/6175Bendye81/29/2025Telephone [facility] [address] [place] [address] Ese Reyna, [facility] 01/05/2025Orders Only [facility] Sign In [address] [place] [address] Dean Atkins, DO 01/03/2025Telephone [facility] General Surgery [address] [place] [address] Eleanor Kruse, [facility] 01/02/2025 10:00 AM EDT - 01/02/2025 11:00 AM EDTSurgery [facility] [address] [place] [address] Belen Snyder MD EXCISION CYST PILONIDAL [[id number] (CPT??)]01/02/2025 9:10 AM EDTAnesthesia Event [facility] - Surgery [address] [place] [address] Balaji Castelan, DO 01/02/2025 7:54 AM EDT - 01/02/2025 11:19 AM EDTHospital Encounter [facility] - Surgery [address] [place] [address] Belen Snyder MD Discharge Disposition: Home01/02/20252163Szhsln97/22/2025Telephone [facility] [address] [place] [address] Bere Dang RMA 12/29/2024 11:49 PM EDT - 12/30/2024 2:47 [facility] [address] [place] [address] Franci Hinkle, Epididymal cyst (Primary Dx); Right hydrocele Discharge Disposition: Home12/29/20246019Fumjfo84/07/2025 8:15 AM EDTProcedure visit [facility] - Pre Admit [address] [place] [address] 12/15/2024 8:09 AM EDT - 12/15/2024 11:59 PM EDTHospital Encounter [facility] - Cardiovascular [address] [place] [address] Kwame Gonzales MD Preop examination; BMI 60.0-69.9, adult ([facility]) Discharge Disposition: Home12/15/2024Travelfrom Last 3 Months Family History Medical HistoryRelationNameCommentsNo Known ProblemsFatherHeart diseaseMaternal GrandmotherThyroid diseaseMaternal GrandmotherCancerMaternal great-grandfather Lung cancerMaternal great-grandfatherFibromyalgiaMotherHeart diseaseMother Thyroid diseaseMotherAnesthesia problemsNeg HxRelationNameStatusCommentsFather AliveMaternal GrandmotherDeceasedMaternal great-grandfatherDeceasedMotherAlive Social History Tobacco UseTypesPacks/DayYears UsedDateSmoking Tobacco: NeverSmokeless Tobacco: Never Tobacco Cessation:Counseling Given: Not Answered Alcohol UseStandard Drinks/WeekCommentsNot Currently0 (1 standard drink = 0.6 oz pure alcohol)none since julyHC UtilitiesAnswerDate RecordedIn the past 12 months has the electric, gas, oil, or water [employer] threatened to shut off services in your home?07/11/2024PRAPARE - TransportationAnswerDate RecordedIn the past 12 months, has lack of transportation kept you from medical appointments or from getting medications?07/11/2024In the past 12 months, has lack of transportation kept you from meetings, work, or from getting things needed for daily living?07/11/2024Housing InstabilityAnswerDate RecordedAre you worried or concerned that in the next two months you may not have stable housing that you own, rent or stay in as a part of a household?No07/11/2024 ChildcareAnswerDate HolzpxfqJgooqgedhKdwgxvo87/12/2019EmploymentAnswerDate ChmctuxeCbjbyedrakDszjlwc61/12/2019Hunger ScreeningAnswerDate RecordedWithin the past 12 months we worried whether our food would run out before we got money to buy more.Never True03/02/2025Within the past 12 months the food we bought just didn't last and we didn't have money to get more.Never True03/02/2025Purpose - LifeAnswerDate RecordedPurpose and direction in nskeByjemsn29/11/2021ex and Gender InformationValueDate RecordedSex Assigned at BirthNot on fileLegal Sex Male12/14/2014 12:01 PM EDTGender IdentityNot on fileSexual OrientationNot on file Last Filed Vital Signs Vital SignReadingTime TakenCommentsBlood Eiqtejpq329/7903/02/2025 12:24 PM EDT Gwblh20210/23/2025 12:24 PM FGDWjgpauvkkzt64.2 ??C (97.1 ??F)03/02/2025 12:24 PM EDTRespiratory Qtcb7070 12:24 PM EDTOxygen Rvlsyuevxn49%03/02/2025 12:24 PM EDTInhaled Oxygen Concentration--Qqvxdh029.9 kg (456 lb 2.1 oz)03/02/2025 12:24 PM OXINdvrkw500.9 cm (6')03/02/2025 12:24 PM EDTBody Mass Index61.86 03/02/2025 12:24 PM EDT Plan of Treatment DateTypeDepartmentCare Team (Latest Contact Info)Arzxjgcmbax37/03/2025 10:30 AM ESTOffice Visit [facility] [address] [place] [address] Franci Byrd, VETERINARY MEDICINE SCIENTIST-POST ACUTE CARE REGISTERED NURSE [address] [place] [address] 03/16/2025 1:00 PM ESTHospital Encounter [address] [address] Kwame Shell MD [address] [place] [address] 03/16/2025 1:00 PM EST - 03/16/2025 3:15 PM ESTSurgery [facility] [address] [place] [address] Kwame Shell MD [address] [place] [address] SPERMATOCELECTOMY [[id number] (CPT??)]NamePriorityAssociated DiagnosesDate/Time SPERMATOCELECTOMY Spermatocele 03/16/2025 1:00 PM ESTHealth MaintenanceDue DateLast DoneCommentsDepression Yroeyonsx99/03/2016Adult BMI Follow Up Plan07/11/2021Influenza Ooonswz7801/09/2025 Adult BMI Aidigmnqp45Tobacco Aftyfmjis17 DTaP,Tdap and Td Vaccines (8 - Td or Tdap), 01/04/2016, 01/18/2015, Additional history exists Goals GoalPatient Goal TypeAssociated ProblemsRecent ProgressPatient-Stated?Author Autogenerated Goal Care PlanAutogenerated ProblemNoGriffin, Angie [employer] Not on file Procedures Procedure NamePriorityDate/TimeAssociated DiagnosisCommentsURINALYSISRoutine 03/02/2025 12:24 PM EDT Spermatocele SURGICAL QWYJPQCJAOhkscma35/25/2025 9:40 AM EDT [place] AN ELECTIVE ENDOTRACHEAL SATFIJTfobdht24/25/2025 9:15 AM EDT TN REMV PILONIDAL LESION OXOCCT2801/02/2025 9:12 AM EDT pilonidal cyst POCT NURSING URINE MACROSCOPIC XTXnfsqjy49/22/2025 1:23 AM EDT ER EXTRA ODOZAUAAD58/22/2025 12:50 AM EDT US SCROTUM WITH LFGRHOVAJD92/22/2025 12:20 AM EDT BASIC METABOLIC OFJKTUdxjxzu97/07/2025 8:34 AM EDT Preop examination BMI 60.0-69.9, adult (CMS-HCC) ECG 12-EGIGXfqgpfr61/07/2025 8:20 AM EDT Preop examination BMI 60.0-69.9, adult (CMS-HCC) from Last 3 Months Results * Urinalysis (03/02/2025 12:24 PM EDT)ComponentValueRef RangeTest MethodAnalysis TimePerformed AtPathologist HhglnkpqaJJTLJLpmiruPnmebp05/23/2025 3:54 PM EDT [facility] VGKPKOMRXMZILPPPXNCAfccaMmaem76/23/2025 3:54 PM EDT [facility] LABORATORYSPECIFIC GRAVITY1.0271.003 - 1.035 03/02/2025 3:54 PM [facility] LABORATORYNITRITENegative Rmsrtegm76/23/2025 3:54 PM [facility] LABORATORYPH,URINE6.0 5.0 - 8.510 3:54 PM [facility] LABORATORYLEUKOCYTE UGQGPIDZPrdjinhhKebgijuw30/23/2025 3:54 PM [facility] YCBCIDSRMANOADSCQAzmxdecgXszgutpz29/23/2025 3:54 PM [facility] LABORATORYKETONES (URINE)EtiiaauqXgbkhljx31/23/2025 3:54 PM [facility] LABORATORYUROBILINOGEN<1.1 eu/dL<1.1 eu/dL03/02/2025 3:54 PM [facility] LABORATORYBILIRUBIN (URINE)NegativeNegative 03/02/2025 3:54 PM [facility] LABORATORYBLOOD/HGBNegative Cveworgx88/23/2025 3:54 PM [facility] LABORATORYGLUCOSE (URINE)BmwluyvbImxmnsrj03/23/2025 3:54 PM [facility] LABORATORYSpecimen (Source)Anatomical Location / LateralityCollection Method / VolumeCollection TimeReceived TimeUrineUrine / UnknownCollection / Unknown 03/02/2025 12:24 PM EDT1 12:24 PM EDT Narrative Authorizing ProviderResult TypeResult StatusDavid E Fumo MDURINE ORDERABLESFinal ResultPerforming OrganizationAddressCity/State/ZIP CodePhone Number [facility] [address] [place] [address], * Surgical Pathology (01/02/2025 9:40 AM EDT)ComponentValueRef RangeTest Method Analysis TimePerformed AtPathologist SignatureCase ReportSurgical Pathology Report ? Case: [id number] ? Authorizing Provider: ??Belen Snyder MD ? Collected: ? 01/02/2025 0940 ? Ordering Location: ? [facility] ? Received: ?01/02/2025 1147 ? [facility] - [facility] ? Pathologist: ? Delon Arvizu MD ? Specimen: ?Pilonidal Cyst ? 01/06/2025 5:17 PM [facility] LABFinal DiagnosisPilonidal cyst; excision: Benign skin with dermal/subdermal chronic fibroinflammatory reaction around hair shaft structures, consistent with the clinical description of a pilonidal cyst; no neoplasm. 01/06/2025 5:17 PM [facility] LAB at 1717 EDTGross DescriptionReceived in formalin labeled DUNCAN, pilonidal cyst is an unoriented light richards wrinkled hair-bearing ellipse of skin, 4.3 x 0.6 cm excised to a depth of 0.2 cm. A linear indentation is identified, 3.5 cm in length and 0.2 cm in width. The specimen exhibits underlying yellow nodular glistening subcutaneous soft tissue, 4.6 x 1.9 x 1.5 cm. The resection margin is inked green. The specimen is serially sectioned to reveal a cavitated space underlying the linear indentation filled with friable vegetative material. Two manufacturer's service representative cross-sections are submitted in a single cassette. (1, ss, [id number],m2) DM.01/06/2025 5:17 PM [facility] LABORATORYEmbedded Bphmap0001/06/2025 5:17 PM [facility] Specimen (Source)Anatomical Location / LateralityCollection Method / Volume Collection TimeReceived TimeTissuePilonidal cyst / Rxhbucv4101/02/2025 9:40 AM EDT 01/02/2025 11:47 AM EDTComment:Pre-op diagnosis: pilonidal cyst Narrative Authorizing ProviderResult TypeResult StatusMeneleni Snyder MD PATHOLOGY/CYTOLOGY ORDERABLESFinal ResultPerforming OrganizationAddress City/State/ZIP CodePhone Number [facility] [address] [place] [address], [facility] [address] [place] [address], * [place] AN ELECTIVE ENDOTRACHEAL AIRWAY (01/02/2025 9:15 AM EDT) Narrative Romeo Palmer APRN-COMMUNITY SERVICE COORDINATOR - 01/02/2025 9:15 AM EDT Romeo Presley REUBEN Palmer-COMMUNITY SERVICE COORDINATOR 01/02/2025 9:43 AM Airway Patient location during procedure: OR Urgency: Elective Date/Time: 01/02/2025 9:15 AM Airway not difficult IV In Situ: Peripheral General Information and Staff Service Provider: Romeo Palmer APRN-COMMUNITY SERVICE COORDINATOR Placed by: ??Romeo Palmer APRN-LUANN Patient Identified, IV Checked, Risks and Benefits Discussed, Surgical Consent, Monitors and Equipment Checked, Pre-op Evaluation and Timeout Performed Fire Risk Assessment Score: 0 Consent for Emergent Airway (if performed for an anesthetic, see related documentation for consents) Risks and benefits: risks, benefits and alternatives were discussed Indications and Patient Condition Sedation level: Deep Preoxygenated: yesPatient position: Supine MILS maintained throughout Mask difficulty assessment: Vent By Mask Indications for airway management: Anesthesia Complications: No Final Airway Details Final airway type: ETT Endotracheal airway: Cuffed Techniques used for successful ETT Placement: Direct Laryngoscopy Cormack-Lehane Classification: Grade II Endotracheal tube insertion site: Oral No Bite Block Placed Post Intubation Trauma? No Visibility: ??Cords Clear Blade size: #4 Placement verified by: chest auscultation, capnography and symmetrical chest wall movement ETT size: 7.5 mm Number of attempts at approach: 4 Additional Comments Patient was ramped up and positioned well. ??Easy intubation with position. Authorizing ProviderResult TypeResult StatusBalaji Castelan DOANESTHESIA ORDERABLESFinal Result * (ABNORMAL) POCT Nursing Urine Macroscopic UA (12/30/2024 1:23 AM EDT)Component ValueRef RangeTest MethodAnalysis TimePerformed AtPathologist SignaturePOC Urine Specific [place]>=1.030(A)1.010, 1.015, 1.020, 1.3275012/30/2024 1:20 AM [facility] Urine Leukocyte EsteraseNegativeNegative 12/30/2024 1:20 AM [facility] Urine NitriteNegative Gfcpnukt45/22/2025 1:20 AM [facility] Urine pH5.55.0, 6.0, 6.5, 7.0, 7.5, 8.0, 8.5, 5.508 1:20 AM [facility] Urine JstpgvqExmubzpgTypgeinx78/22/2025 1:20 AM [facility] Urine OwkubmyEnfudqefEolgehtm30/22/2025 1:20 AM [facility] Urine EavlhitGmttmcsjQugtytgv15/22/2025 1:20 AM [facility] Urine Urobilinogen0.2 E.U./dL12/30/2024 1:20 AM [facility] Urine NwzynwszwRwyonuewPxqdxhsx89/22/2025 1:20 AM [facility] Urine Blood/HGBNegativeNegative 12/30/2024 1:20 AM [facility] LABORATORYSpecimen (Source)Anatomical Location / LateralityCollection Method / VolumeCollection TimeReceived Time Urine12/30/2024 1:23 AM EDT12/30/2024 1:20 AM EDT Narrative Authorizing ProviderResult TypeResult StatusJessica [facility] DOPOINT OF CARE TEST ORDERABLESFinal ResultPerforming OrganizationAddressCity/State/ZIP CodePhone Number [facility] [address] [facility] [place] [address], * Extra Urine (12/30/2024 12:50 AM EDT)ComponentValueRef RangeTest Method Analysis TimePerformed AtPathologist SignatureExtra TubeAuto Resulted 12/30/2024 2:02 AM [facility] LABORATORYSpecimen (Source) Anatomical Location / LateralityCollection Method / VolumeCollection Time Received TimeUrineUrine specimen collection, clean catch / Vcvqeej1212/30/2024 12:50 AM EDT12/30/2024 1:48 AM EDT Narrative Authorizing ProviderResult TypeResult StatusJohnchantel Martínez MDURINE ORDERABLES Final ResultPerforming OrganizationAddressCity/State/ZIP CodePhone Number [facility] [address] [place] [address], [place] [phone] * Ultrasound scrotum for TORSION with duplex (12/30/2024 12:20 AM EDT)Anatomical RegionLateralityModalityBodyUltrasoundSpecimen (Source)Anatomical Location / LateralityCollection Method / VolumeCollection TimeReceived Time12/30/2024 12:30 AM EDT Narrative 12/30/2024 12:32 AM EDT CLINICAL INFORMATION: right testicle pain. TECHNIQUE: Real-time [...] inflow and venous outflow of both testicles. ??Arterial and venous Doppler duplex spectralwaveforms were evaluated. COMPARISON: No relevant prior studies available. FINDINGS: The right testicle measures 4.8 x 2.6 x 2.4 cm and left testicle measures 4.7 x 2.5 x 2.4 cm. Homogeneous testicles with normal, symmetric vascularity. Complex right epididymal cyst measuring 1.0 cm.Small right hydrocele. The arterial and venous waveforms are within normal limits. IMPRESSION: * ??No evidence of testicular torsion or mass. * ??Complex right epididymal cyst measuring 1.0 cm. * ??Small complex right hydrocele. Finalized by Maciel Skaggs MD on 12/30/2024 12:32 AM Procedure Note Maciel Skaggs MD - 12/30/2024 CLINICAL INFORMATION: right testicle pain. TECHNIQUE: Real-time sonographic evaluation of the scrotum and testes was performedwith waldrop scale and color flow imaging. Real time waldrop scale, color flow imaging and duplex spectral Dopplerwaveform analysis evaluation was performed of the major arterial inflowand venous outflow structures of the testicles with arterial and venousspectral waveforms obtained and reviewed in view of the clinical historyof right testicle pain . Duplex spectral Doppler document arterial and venous spectral waveforms documented within the major arterial inflow and venous outflow of bothtesticles. Arterial and venous Doppler duplex spectral waveforms wereevaluated. COMPARISON: No relevant prior studies available. FINDINGS: The right testicle measures 4.8 x 2.6 x 2.4 cm and left testicle measures4.7 x 2.5 x 2.4 cm. Homogeneous testicles with normal, symmetricvascularity. Complex right epididymal cyst measuring 1.0 cm. Small righthydrocele. The arterial and venous waveforms are within normal limits. IMPRESSION: * No evidence of testicular torsion or mass. * Complex right epididymal cyst measuring 1.0 cm. * Small complex right hydrocele. Finalized by Maciel Skaggs MD on 12/30/2024 12:32 AM Authorizing ProviderResult TypeResult StatusJohnathon Rerucha MDNORTHSIDE HOSPITAL GWINNETT ORDERABLESFinal Result * Basic Metabolic Panel (12/15/2024 8:34 AM EDT)ComponentValueRef RangeTest MethodAnalysis TimePerformed AtPathologist XlfkijvvuENGLAB746929 - 146 mmol/L 12/15/2024 2:20 PM [facility] LABORATORYPOTASSIUM3.93.5 - 5.0 mmol/L12/15/2024 2:20 PM [facility] OPBQAMPKNRKJDWKDVB17999 - 109 mmol/L12/15/2024 2:20 PM [facility] LABORATORYCARBON ATBRCQN2066 - 32 mmol/L12/15/2024 2:20 PM [facility] LABORATORYANION ISR275 - 15 mmol/L12/15/2024 2:20 PM [facility] LABORATORYBLOOD UREA RSKVQNMS138 - 23 mg/dL12/15/2024 2:20 PM [facility] LABORATORYCREATININE0.960.60 - 1.30 mg/dL12/15/2024 2:20 PM [facility] LABORATORYComment:METHOD TRACEABLE TO IDMS QUKTLUGZXMZRCKK4959 - 99 mg/dL12/15/2024 2:20 PM [facility] HZNUOUFCZLENKMSLG39.28.5 - 10.5 mg/dL12/15/2024 2:20 PM [facility] LABORATORYEGFR Non-Race Dependent>90>=60 ml/min/1.73sq.m012/15/2024 2:20 PM [facility] LABORATORYComment: Reported eGFR is based on the CKD-EPI 2020 equation that does not use a race coefficient. Specimen (Source)Anatomical Location / LateralityCollection Method / Volume Collection TimeReceived TimeBloodVenous blood / UnknownVenipuncture / Unknown 12/15/2024 8:34 AM EDT12/15/2024 8:34 AM EDT Narrative Authorizing ProviderResult TypeResult StatusDavirenata LAWTON BLOOD ORDERABLESFinal ResultPerforming OrganizationAddressCity/State/ZIP CodePhone Number [facility] [address] [place] [address], * ECG 12 lead (12/15/2024 8:20 AM EDT)Specimen (Source)Anatomical Location / LateralityCollection Method / VolumeCollection TimeReceived Time12/15/2024 8:20 AM EDT Narrative [facility] - 12/15/2024 2:48 PM EDT Authorizing ProviderResult TypeResult StatusDamirian SANDERSG ORDERABLES Final ResultPerforming OrganizationAddressty/State/ZIP CodePhone Number [facility] from Last 3 Months Additional Health Concerns Active ProblemsNoted DateDiagnosed DateAutogenerated Tteblzn1902/17/2025 [place] [address] Advance Directives * Full Code (Latest Code Status on File) Date ActivatedDate InactivatedComments07/11/2024 8:34 PM07/15/2024 7:44 PM * Full Code Date ActivatedDate BmtlgizvjhpCabsjxcr97/13/2022 8:51 AM02/20/2022 1:58 PM Care Teams Team MemberRelationshipSpecialtyStart DateEnd Date Leatha Diaz APRN-NP [address] [place] [address] PCP - GeneralNurse Practitioner01/21/24
--- OUTSIDE RECORDS SUMMARY | 2025-03-03 10:00 | XMS_ITS | Encounter Summary ---
Author Organization [facility] [employer] Sys tem Address [id number] [address] [place] [address] Care Team Providers Care Corporate Banking Officer Name Role Phone Leatha Diaz Primary Care Provid er Encounter Details DateTypeDepartmentCare Team (Latest Contact Info)Scpsgjstjax75/16/2025Telephone [facility] [address] [place] [phone] Kwame Shell MD [address] [place] [address] Social History Tobacco UseTypesPacks/DayYears UsedDateSmoking Tobacco: NeverSmokeless Tobacco: NeverAlcohol UseStandard Drinks/WeekCommentsYes0 (1 standard drink = 0.6 oz pure alcohol)occasionallyAHC UtilitiesAnswerDate RecordedIn the past 12 months has the [employer], gas, oil, or water [employer] threatened to shut off services in your [...] stay in as a part of a household?No07/11/2024hildcareAnswer Date BohoyxvvLdguqstvhLguswkx43/12/2019EmploymentAnswerDate RecordedEmployment Eohlsfe3910/20/2018Hunger ScreeningAnswerDate RecordedWithin the past 12 months we worried whether our food would run out before we got money to buy more.Never True02/13/2025Within the past 12 months the food we bought just didn't last and we didn't have money to get more.Never True02/13/2025Purpose - LifeAnswerDate RecordedPurpose and direction in gaxnYaxzovt62/11/2021ex and Gender Information ValueDate RecordedSex Assigned at BirthNot on fileLegal TixYizy6412/14/2014 12:01 PM EDTGender IdentityNot on fileSexual OrientationNot on filedocumented as of this encounter Miscellaneous Notes * Telephone Encounter - Kwame Shell MD - 01/24/2025 11:09 AM EDT Please schedule for right spermatocele ectomy, general, 90 minutes * Telephone Encounter - Molly Jones - 01/24/2025 11:09 AM EDT PREP FOR CASE * Telephone Encounter - Molly Jones - 01/24/2025 11:09 AM EDT RETURNED CALL. HAD TO LEAVE A FOR A CALLBACK * Telephone Encounter - Molly Jones - 01/24/2025 11:09 AM EDT SPOKE W/ PATIENT SCHEDULED AT [facility] FOLLOWS: PAT- 03/02/2025 AT 1215PM SURG AT [facility] - 03/16/2025 PATIENT TO ARRIVE AT 11AM LETTER INTO MY CHART. documented in this encounter Plan of Treatment DateTypeDepartmentCare Team (Latest Contact Info)Bsoyympcmjt84/03/2025 10:30 AM ESTOffice Visit [facility] [address] [place] [phone] Franci Byrd APRN-REFRIGERATION ENGINEERING TEACHER [address] [place] [address] 03/16/2025 1:00 PM ESTHospital Encounter [address] [phone] Kwame Shell MD [address] [place] [address] 03/16/2025 1:00 PM EST - 03/16/2025 3:15 PM [address]Surgery [address] [phone] Kwame Shell MD [address] [place] [address] SPERMATOCELECTOMY [[id number] (CPT??)]NamePriorityAssociated DiagnosesDate/Time SPERMATOCELECTOMY Spermatocele 03/16/2025 1:00 PM ESTdocumented as of this encounter Goals GoalPatient Goal TypeAssociated ProblemsRecent ProgressPatient-Stated?Author Autogenerated Goal Care PlanAutogenerated ProblemNoGriffin, Naomidocumented as of this encounter Visit Diagnoses Not on filedocumented in this encounter Additional Health Concerns Active ProblemsNoted DateDiagnosed DateAutogenerated Sblmogu0102/17/2025documented as of this encounter Care Teams Team MemberRelationshipSpecialtyStart DateEnd Date Leatha Diaz APRN-[employer]IGHTER [address] [place] [address] PCP - GeneralNurse Practitioner01/21/24documented as of this encounter
--- OUTSIDE RECORDS SUMMARY | 2025-03-03 10:01 | XMS_ITS | Patient Health Record ---
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 Role Phone Caleb Corbin Primary Care Provider SHERRI ORDOÑEZ Unavailable [phone] Allergies Allergen (clinical drug ingredient) Drug/Non Drug Allergy documented on EMR Reaction Allergy Type Onset Date Status Information temporarily unavailable Penicillin anaphylaxis Drug Allergy 10/27/2007 Active Reason For Referral Reason 09/12 *2nd attempt attempt, lvmsg requesting return call referral from PCP for med mgnt of anxiety, bipolar disorder Diagnosis 1 Encounter for screen ing examination for mental health and behavioral disorders (Z13.30) Referral Organization [facility] Referring Provider First Name SHERRI Referring Provider Last Name TIAGO [facility] Referred Provider Caleb Corbin Referred Address [address] [place] [place], [place],[address], Referred Provider Specialty Medicatio ns Referral Priority Routine Medications Medication SIG (Take, Route, Frequency, Duration) Notes Start Date End Date Status hydrOXYzine HCl 50 MG Tablet Oral; Duration: 30 Days ActiveLurasidone HCl 20 MG Tablet1 tablet once a day for 10 days, 2 tablets once a day for 20 days Orally; Duration: 30 daystitration starter dose10/12/2024 ActivebusPIRone HCl 10 MG TabletOral; Duration: 90 DaysNot-Taking/PRNSertraline HCl 100 MG TabletOral; Duration: 90 DaysActive Social History Tobacco Use: Social History Observation Description Date Details (start date - stop date) Never Smoker NA - NA Social History GeneralSocial InfoQuestionAnswerNotesDepression Screening (PHQ-9):Little interest or pleasure in doing thingsNearly every dayFeeling down, depressed, or hopelessNearly every dayTrouble falling or staying asleep, or sleeping too much Nearly every dayFeeling tired or having little energyNearly every dayPoor appetite or overeatingNearly every dayFeeling bad about yourself-or that you are a failure or have let yourself or your family downNearly every dayTrouble concentrating on things, such as reading the newspaper or watching television Nearly every dayMoving or speaking so slowly that other people could have noticed. Or the opposite being so fidgetyor restless that you have been moving around a lot more than usualNot at allThoughts that you would be better off , or of hurting yourself in some wayNearly every day(Consider Suicide Assessment Risk)Total Yrjtc04IujbtozdzfvrcJpkonc DepressionDrug/Alcohol:Social InfoQuestionAnswerNotesAUDIT-C (Standard)Did you have a drink containing alcohol in the past year?Yes? How often did you have a drink containing alcohol in the past year?Monthly or less (1 point)? How many drinks did you have on a typical day when you were drinking in the past year?5 or 6 drinks (2 points)? How often did you have six or more drinks on one occasion in the past year?Less than monthly (1 point)Cuqfzm7PgfxvzpaizkujaSnxtpexeKveojkl Use:Social InfoQuestion AnswerNotesTobacco Control (Standard)Tobacco use:Nonsmoker Problems Problem Type SNOMED Code ICD Code Onset Dates Problem Status W/U Status Risk Notes Problem Information temporarily unavaila ble Bipolar disorder, current episode mixed, mild (F31.61) Activeconfirmed Vital Signs Heart Rate 93 /min 10/12/2024 Fohnirqm11 %10/12/2024lood pressure oxfivqjvg32 mm Hg10/12/20246074Hnfbdo37 in 10/12/2024lood pressure fsldgetq674 mm Hg10/12/20243519Sjocll599.4 lbs10/12/2024MI 61.49 kg/m210/12/2024 Encounters Encounter Location Date Provider Diagnosis [facility] [address] [place] [address] 10/12/2024 Kip Soviak Bipolar disorder, cu rrent episode mixed, mild F31.61 Assessments Encounter Date Diagnosis (ICD Code) Assessment Notes Treatment Notes Treatment Clinical Notes Section Notes 10/12/2024 Bipolar disorder, current episod e mixed, mild (ICD-10 - F31.61) Patient will [...] tremors, muscle spasms, slowness of movement or jerkingof muscles. . Stable . The patient verbalizes [...] start/continuation of the treatment. Plan Of Treatment No Information Insurance Providers Payer Name Payer Address Payer Phone Subscriber Number Group Number Insured Name Patient Relationship to Insured Coverage Start Date Coverage End Date ANTHE[employer] Primary [address] [place] [address] [id number] Nilay HERRERA - patient is the [id number] 2024 Medical (General) History Medical History History ICD Code Anxiety DepressionBipolar DisorderSleep apneaSurgical History Surgery Date(Month/Year) appendectormy 03/2022 Hospitalization History Reason Date(Month/Year) Admitted to [facility] for depressi on 08/02
--- OUTSIDE RECORDS SUMMARY | 2025-03-03 10:04 | XMS_ITS | CCD ---
Author Organization [facility] Team Providers Care Sizer Hand Name Role Phone NAOMI ROD Unavailable Unavailable [...] Consulting Unavailable HOUSE, DR SMILEY Attending Unavailable [facility], DR SANJAY Gavin Consulting Unavailable Wilver Felton Unavailable House, DO Smiley Primary Care Provider [phone] MD Wilver Felton Attending Provider MD Lewis [...] Care Provider MD Lewis Mirza Attending Provider Emily [employer] Leatha Primary Care Provider MD Kareem Tijerina Attending Provider [phone] [facility] [employer] [facility] Primary Care Provider Wilver Felton MD Attending Provider [phone] Asaad, Imad Attending Unavailable Luis Felipe Baljit [facility] Care Unavailable Asaad, Imad Admitting Unavailable Luis Felipe Baljit Primary Care Unavailable Lewis Mirza Admitting Unavailable Lewis Mirza Attending Unavailable Rohrbacher, [facility] Primary Care Unavailable Kareem Tijerina Admitting Unavailable Kareem Tijerina Attending Unavailable Asaariana, Imariana Attending Unavailable Rohrbacher, [facility] Primary Care Unavailable Asaad, Imad Admitting Unavailable Baljit Pisano DO Primary Care Provider [facility] [employer] HEAD-BUSINESS PROCESS ASSOCIATE, [facility] Provid er Abbi JAY Primary Care Physician [phone] Nato Lezama Attending Unavailable Nato Lezama Attending Unavailable [facility] [employer] HEAD-BUSINESS PROCESS ASSOCIATE, [facility] Primary [facility] Provid er ROHRBACHER, LEATHA Primary Care Unavailable [...] Care Unavailable ROHRBACHER, LEATHA Primary Care Unavailable HOTEIT, ROLANDOSASanchez K Admitting Unavailable HOTEIT, WISSAM K Attending Unavailable [facility], [facility] Consulting Jacquie RICKY Hernandez Referring Unavailable ROHRBACHER, LEATHA Primary Care Unavailable ROHRBACHER, LEATHA Primary Care Unavailable FRANCI YU Attending Unavailab GAIL Martin Attending Unavailable ROHRBACHER, LEATHA Referring Unavailable ROHRBACHER, LEATHA Primary Care Unavailable KIANBELEN Attending Unavailable ROHRBACHER, LEATHA Referring Unavailable ROHRBACHER, LEATAH Primary Care Unavailable KIANBELEN Attending Unavailable ROHRBACHER, LEATHA Referring Unavailable ROHRBACHER, LEATHA Primary Care Unavailable FRANCI BYRD Attending Unavailable ROHRBACHER, LEATHA Referring Unavailable ROHRBACHER, LEATHA Primary Care Unavailable FRANCI BYRD Attending Unavailable ROHRBACHER, LEATHA Referring Unavailable ROHRBACHER, LEATHA Primary Care Unavailable Rohrbacher Leatha ALEXIS Primary Care Provider Adelaida Jiang CMA Attending Provider Unavaila ble LucasrbLeatha dale APRN Attending Provider Allergies Allergy ClassificationReported Allergen(s)Allergy TypeDate of OnsetReaction(s) Facility (1 source)penicillAMINEDrug AllergyhiBothwell [facility] Web Performance Other (7 sources)Penicillin; Translations: [penicillin]Drug AllergyUrticaria (disorder)[facility] Repository (20 sources)Penicillins; Translations: [Penicillins]Allergy to substance 72-76-9640JhgoqTwiqidhdlWood [facility] Medications Current Medications MedicationDrug Class(es)DatesSig (Normalized)Sig (Original)acetaminophen 325 mg / oxyCODONE hydrochloride 5 mg oral tablet (1 source)Opioid AgonistStart: 01-23-2024 End: 61-78-1562fdjQMAIKO-acetaminophen (PERCOCET) 5-325 mg per tablet Indications: Pilonidal cyst Take 1 tablet bymouth every 4 (four) hours as needed for pain for up to 7 days. Max Daily Amount: 6 tablets 6 tablet 01/23/2024 01/30/2024 ActiveARIPiprazole 5 mg oral tablet (14 sources)Atypical AntipsychoticStart: 84-45-2659ndqk 1 tablet by mouth once dailyAripiprazole 5 mg tablet Active 5 MG PO Daily October 13, 2024 12:00am Complies with drug therapybismuth subsalicylate 17.5 mg/ml oral suspension (2 sources)BismuthStart: 88-24-9969uatx 15 mL by mouth every six hours as needed bismuth subsalicylate (PEPTO BISMOL) 262 mg/15 mL suspension Take 15 mL by mouth every 6 (six) hours as needed for indigestion. 360 mL 12/26/2022 Active cariprazine (1 source)Atypical AntipsychoticVraylar Activecefdinir 300 mg oral capsule (1 source)Cephalosporin AntibacterialStart: 07-05-2024 End: 76-45-6441qnvs 1 capsule by mouth every twelve hourscefdinir 300 mg Cap 300 mg = 1 cap(s), Oral, q12hr, X 7 day(s), # 14 cap(s), Refills(s) 0, Pharmacy: [id number], 183, cm, 07/05/24 21:52:00 EST, Height/Length Dosing, 195.2, kg, 07/05/24 21:52:00 EST, Weight Dosing Start Date: 07/05/24 Stop Date: 07/12/24 Status: Orderedclindamycin 300 mg oral capsule (1 source)Lincosamide AntibacterialStart: 01-21-2024 End: 75-51-2683xpqp 1 capsule by mouth three times dailyclindamycin (CLEOCIN) 300 mg capsule Take 1 capsule (300 mg total) by mouth 3 (three) times a day for 7 days. 21 capsule 01/21/2024 01/28/2024 Activefamotidine 20 mg oral tablet (2 sources)Histamine-2 Receptor AntagonistStart: 55-21-9465fney 1 tablet by mouth in the morning, then take 1 tablet by mouth at bedtimefamotidine (PEPCID) 20 mg tablet Take 1 tablet (20 mg total) by mouth in the morning and 1 tablet (2 0 mg total) before bedtime. 20 tablet 12/26/2022 Activeibuprofen 800 mg oral tablet (20 sources)Nonsteroidal Anti-inflammatory DrugStart: 01-05-2025 End: 93-03-7711oxoj 1 tablet by mouth every eight hours as needed for pain ibuprofen (MOTRIN) 800 mg tablet Take 1 tablet (800 mg total) by mouth every 8 (eight) hours as needed for pain. 30 tablet 01/05/2025 02/13/2025 Discontinued (Patient Stopped On Own)Start: 07-06-2023 End: 00-27-9970zics 1 tablet by mouth every six hours as neededIbuprofen 200 mg tablet Discontinued 200 MG PO Every 6 hours as needed July 06, 2023 1:00am October 22, 2023 9:43amStart: 51-47-2274wfnf 1 tablet by mouth every eight hours [...] mg oral tablet (2 sources)Nonsteroidal Anti-inflammatory DrugStart: 54-77-6064czxytjeji (MOBIC) 15 mg tablet Indications: Chronic fatigue , Pain in both hands Take one tablet inthe morning with food 30 tablet 2 07/21/2023 Activenaloxone (NARCAN) 4 mg/actuation spray,non-aerosol nasal spray (1 source)Start: 25-59-6259dhvdjiap (NARCAN) 4 mg/actuation spray,non-aerosol nasal spray Administer 1 spray (4 mg total) intoalternating nostrils as needed for opioid reversal. 01/23/2024 Activenaproxen 500 mg oral tablet (1 source)Nonsteroidal Anti-inflammatory DrugStart: 07-05-2024 End: 55-86-9604piev 1 tablet by mouth twice dailynaproxen 500 mg Tab 500 mg = 1 tab(s), Oral, BID, X 10 day(s), # 20 tab(s), Refills(s) 0, Pharmacy:[facility] #[id number], 183, cm, 07/05/24 21:52:00 EST, Height/Length Dosing, 195.2, kg, 07/05/24 21:52:00 EST, Weight Dosing Start Date: 07/05/24 Stop Date: 07/15/24 Status: Orderedondansetron 4 mg disintegrating oral tablet (2 sources)Serotonin-3 Receptor AntagonistStart: 65-45-3936izjl 1 tablet by mouth every eight hours as needed for nauseaondansetron ODT (ZOFRAN ODT) 4 mg disintegrating tablet Dissolve 1 tablet (4 mg total) on tongue every 8 (eight) hours as needed for nausea for up to 10 doses. 10 tablet 12/26/2022 Active tiZANidine 2 mg oral tablet (2 sources)Central alpha-2 Adrenergic AgonistStart: 67-26-2264thpk 1 tablet by mouth every six hours as neededtiZANidine (ZANAFLEX) 2 mg tablet Take 1 tablet (2 mg total) by mouth every 6 (six) hours as neededfor muscle spasms. 12 tablet 06/30/2023 ActivetraZODone hydrochloride 50 mg oral tablet (1 source)Serotonin Reuptake InhibitorStart: 07-28-2024 End: 11-05-6238fcqd 1 tablet by mouth once daily as needed for sleeptraZODone (DESYREL) 50 mg tablet Indications: MDD (major depressive disorder), recurrent severe, without psychosis (CMS-HCC) Take 1 tablet (50 mg total) by mouth nightly as needed for sleep. 90 tablet 1 07/28/2024 11/29/2024 Discontinued (Therapy completed) Completed/Discontinued Medications MedicationDrug Class(es)DatesSig (Normalized)Sig (Original)azithromycin 250 mg oral tablet (13 sources)Macrolide AntimicrobialStart: 11-09-2023 End: 52-86-5891Povudvviohlc 250 mg tablet Discontinued 250 MG PO daily 6 5 0 November 09, 2023 12:00am December 09, 2023 11:26am Bronchitis Bronchitis, not specified as acute or chronic Take 2 tablets today and then 1 for the next 4 daysbenzonatate 200 mg oral capsule (16 sources)Non-narcotic AntitussiveStart: 08-27-2023 End: 60-36-4098qhdy 1 capsule by mouth three times daily as needed for cough Benzonatate 200 mg capsule Discontinued 200 MG PO Three times daily as needed for cough 30 10 0 August 27, 2023 12:00am September 10, 2023 10:35am Bronchitis Bronchitis, not specified as acute or chronicbusPIRone hydrochloride 10 mg oral tablet (7 sources)Start: 09-22-2024 End: 65-96-6898xupb 1 tablet by mouth twice dailyBuspirone 10 mg tablet Discontinued 10 MG PO Twice daily 180 90 0 September 22, 2024 9:21am October 13, 2024 8:33am Anxiety Anxiety disorder, unspecifiedStart: 08-31-2024 End: 94-74-2808dbjw 1 tablet by mouth twice dailyBuspirone 5 mg tablet Discontinued 5 MG PO Twice daily 60 30 0 August 31, 2024 12:00am September 22, 2024 9:21am Anxiety Anxiety disorder, unspecifiedCholecalciferol (20 sources)Vitamin DStart: 10-22-2023 End: 19-53-3914mivl 1 capsule by mouth once dailycholecalciferol (vitamin D3) Discontinued 1 CAP PO Daily October 22, 2023 12:00am March 22, 2024 10:58am Start: 10-22-2023 End: 43-25-7953tzld 1 capsule by mouth once dailycholecalciferol (vitamin D3) Discontinued 1 CAP PO Daily October 21, 2023 11:00pm March 22, 2024 9:58am Start: 84-01-1824qhll 1 capsule by mouth once dailycholecalciferol (vitamin D3) Active 1 CAP PO Daily October 22, 2023 12:00amStart: 07-09-2023 End: 15-71-8761kvgv 1 capsule by mouth every weekCholecalciferol (Vitamin D3) 1,250 mcg (50,000 unit) capsule Discontinued 1250 MCG PO every week 5 30 1 July 09, 2023 1:00am October 22, 2023 9:43am take above dose for 8 weeks and then start 2,000 units daily of OTC vitamin w5qzgidbfxvbb hydrochloride 10 mg oral capsule (6 sources)AnticholinergicStart: 02-25-2024 End: 14-98-8301zixh 1 capsule by mouth three times daily as needed for pain Dicyclomine 10 mg capsule Discontinued 10 MG PO Three times daily as needed for abdominal pain 30 10 0 February 25, 2024 12:00am March 22, 2024 10:58am Abdominal pain Unspecified abdominal paindoxycycline hyclate 100 mg oral capsule (18 sources)Tetracycline-class DrugStart: 11-27-2024 End: 15-73-7212xuor 1 capsule by mouth in the morning, then take 1 capsule by mouth at bedtimedoxycycline (VIBRAMYCIN) 100 mg capsule Take 1 capsule (100 mg total) by mouth in the morning and 1capsule (100 mg total) before bedtime. 11/27/2024 12/15/2024 Discontinued (Therapy completed)Start: 08-27-2023 End: 55-29-7997jwrr 1 tablet by mouth twice dailyDoxycycline Monohydrate 100 mg tablet Discontinued 100 MG PO Twice daily 20 10 0 August 27, 2023 12:00am September 10, 2023 10:35am Maxillary sinusitis Bronchitis Chronic maxillary sinusitis Bronchitis, not specified as acute or chronichydrOXYzine hydrochloride 50 mg oral tablet (5 sources)AntihistamineStart: 08-31-2024 End: 45-62-5785aeex 1 tablet by mouth three times daily as neededHydroxyzine Hcl 50 mg tablet Discontinued 50 MG PO Three times daily as needed August 31, 2024 12:00am October 13, 2024 8:33amStart: 08-29-2024 End: 75-98-2993kbxc 1 tablet by mouth three times daily as neededHydroxyzine Hcl 50 mg tablet Discontinued 50 MG PO Three times daily as needed August 31, 2024 12:00am October 13, 2024 8:33ampantoprazole 40 mg delayed release oral tablet (6 sources)Proton Pump InhibitorStart: 03-22-2024 End: 50-19-4104hlah 1 tablet by mouth once dailyPantoprazole 40 mg tablet,delayed release (DR/EC) Discontinued 40 MG PO Daily 56 56 0 March 22, 2024 1:00am October 13, 2024 8:33ampredniSONE 20 mg oral tablet (5 sources)Start: 06-16-2024 End: 13-64-2183udbp 3 tablets by mouth once daily, then take 2 tablets by mouth once daily, then take 1 tablet by mouth once dailyPrednisone 20 mg tablet Discontinued 20 MG PO .COMPLEX 18 0 June 16, 2024 1:00am August 31, 2024 1:01pm Take 3 tabs po daily x 3 days, then take 2 tabs po daily x 3 days, then take 1 tab po daily x 3 days.Semaglutide (8 sources)Start: 02-09-2024 End: 72-10-0024Midpncikdlt (Ozempic) 0.25 mg or 0.5 mg (2 mg/3 mL) pen injector Discontinued 0.25 MG SUBCUT every week February 08, 2024 11:00pm February 25, 2024 2:36pm sampleStart: 02-09-2024 End: 93-01-2088Degilmllvkp (Ozempic) 0.25 mg or 0.5 mg (2 mg/3 mL) pen injector Discontinued 0.25 MG SUBCUT every week February 09, 2024 12:00am February 25, 2024 3:36pm sampleStart: 82-00-9557Qidjujsuolx (Ozempic) 0.25 mg or 0.5 mg (2 mg/3 mL) pen injector Active 0.25 MG SUBCUT every week February 09, 2024 12:00am sampleSemaglutide (Weight Loss) (20 sources)Start: 09-10-2023 End: 55-15-3581Nptwjmeojom (Weight Loss) (Wegovy) 0.25 mg/0.5 mL pen injector Discontinued 0.25 MG SUBCUT every week September 10, 2023 9:37am September 10, 2023 9:55am administer weeks 1 through of therapyStart: 09-10-2023 End: 78-58-0389Jqkfkdrliom (Weight Loss) (Wegovy) 0.25 mg/0.5 mL pen injector Discontinued 0.25 MG SUBCUT every week September 10, 2023 10:37am September 10, 2023 10:55am administer weeks 1 through of therapyStart: 08-13-2023 End: 28-85-7118Kgybxmgagte (Weight Loss) (Wegovy) 0.25 mg/0.5 mL pen injector Discontinued 0.25 MG SUBCUT every week 2 August 13, 2023 12:00am September 10, 2023 10:37am administer weeks 1 through 4 of therapyStart: 08-13-2023 End: 47-25-9852Ptqnvthhwjp (Weight Loss) (Wegovy) 0.25 mg/0.5 mL pen injector Discontinued 0.25 MG SUBCUT every week 2 August 12, 2023 11:00pm September 10, 2023 9:37am administer weeks 1 through 4 of therapyStart: 08-13-2023 End: 65-05-7291Dnryuhqktlf (Weight Loss) (Wegovy) 0.25 mg/0.5 mL pen injector Discontinued 0.25 MG SUBCUT every week 2 August 13, 2023 12:00am September 10, 2023 10:37am administer weeks 1 through 4 of therapyStart: 83-16-3776Pfanmvztmtx (Weight Loss) (Wegovy) 0.25 mg/0.5 mL pen injector Active 0.25 MG SUBCUT every week 2 August 13, 2023 12:00am administer weeks 1 through 4 of therapy sertraline 100 mg oral tablet (20 sources)Serotonin Reuptake InhibitorStart: 08-31-2024 End: 00-84-2244ducb 1 tablet by mouth once dailySertraline 100 mg tablet Discontinued 100 MG PO Daily August 31, 2024 12:00am October 13, 2024 8:33am Start: 08-29-2024 End: 74-69-5839exlr 1.5 tablets by mouth in the morningsertraline (ZOLOFT) 100 mg tablet Indications: MDD (major depressive disorder), recurrent severe, nj thout psychosis ([facility]) , Generalized anxiety disorder with panic attacks Take 1.5 tablets (150 mg total) by mouth in the morning. 135 tablet 1 08/29/2024 11/29/2024 Discontinued (Therapy completed)Start: 11-09-2023 End: 63-25-9194etxa 1 tablet by mouth once dailySertraline 50 mg tablet Discontinued 50 MG PO Daily 90 90 1 November 09, 2023 8:42am February 25, 2024 3:36pm Depression Depression, unspecifiedStart: 10-12-2023 End: 77-44-3679gceg 1 tablet by mouth once dailySertraline 25 mg tablet Discontinued 25 MG PO Daily 30 30 0 October 12, 2023 12:00am November 09, 2023 8:43am Depression Depression, unspecifiedSod Picosulf-Mag Ox-Citric Ac (6 sources)Start: 02-29-2024 End: 60-86-8587Zqz Picosulf-Mag Ox-Citric Ac (Clenpiq) 10 mg-3.5 gram- 12 gram/175 mL solution Discontinued 175 MLPO .COMPLEX 350 1 0 February 29, 2024 12:00am March 22, 2024 10:58am Follow instructions given by officeStart: 02-29-2024 End: 51-23-4201Lke Picosulf-Mag Ox-Citric Ac (Clenpiq) 10 mg-3.5 gram- 12 gram/175 mL solution Discontinued 175 MLPO .COMPLEX 350 February 29, 2024 12:00am March 22, 2024 10:58am Follow instructions given by officeStart: 02-29-2024 End: 11-45-8730Djg Picosulf-Mag Ox-Citric Ac (Clenpiq) 10 mg-3.5 gram- 12 gram/175 mL solution Discontinued 175 MLPO .COMPLEX 350 February 28, 2024 11:00pm March 22, 2024 9:58am Follow instructions given by office sulfamethoxazole 800 mg / trimethoprim 160 mg oral tablet (5 sources)Dihydrofolate Reductase Inhibitor Antibacterial, Sulfonamide AntimicrobialStart: 04-18-2024 End: 27-76-3605nomm 1 tablet by mouth twice dailySulfamethoxazole-Trimethoprim (Bactrim Ds) 800-160 mg tablet Discontinued 1 TAB PO Twice daily April 18, 2024 1:00am June 16, 2024 11:01am Pilonidal cyst Pilonidal cyst without abscess Problems Active Problems Problem ClassificationProblemDateDocumented DateEpisodic/ChronicAbdominal pain (20 sources)Abdominal tenderness of left lower quadrant; Translations: [Left lower quadrant abdominal tenderness]Onset: 268111-95-1611XsluhneqEjrxpbq disorders (20 sources)Anxiety; Translations: [Anxiety disorder, unspecified]Onset: 539202-05-5687NrlbkfnPzlruyi dysrhythmias (20 sources)Tachycardia; Translations: [Tachycardia, unspecified]Onset: 059689-10-2532HzkhwmhvDesdrng obstructive pulmonary disease and bronchiectasis (20 sources)Bronchitis; Translations: [Bronchitis, not specified as acute or chronic]77-85-6846WsobdrniTbwmhjfd mellitus without complication (20 sources)Hyperglycemia; Translations: [Hyperglycemia, unspecified]Onset: 640383-75-6114SobnfwvsTjrrzjksq of lipid metabolism (20 sources)Mixed hyperlipidemia; Translations: [Mixed hyperlipidemia]09-10-2023 ChronicGastrointestinal hemorrhage (20 sources)Hematochezia; Translations: [Melena]Onset: 219069-37-0336 EpisodicHeadache; including migraine (7 sources)Morning headache; Translations: [Morning headache]01-37-3422Wizeaugu Hepatitis (7 sources)Hepatitis A test positive; Translations: [Hepatitis A without hepatic coma]EpisodicImmunizations and screening for infectious disease (20 sources)Contact with and (suspected) exposure to other viral communicable diseases; Translations: [Anti-nuclear factor positive]EpisodicMalaise and fatigue (1 source)Fatigue; Translations: [Chronic fatigue, unspecified]68-15-8817Bnabmbr Malaise and fatigue (20 sources)Other fatigue; Translations: [Fatigue]Onset: 79-67-5317JhsrgdajNpre disorders (20 sources)Bipolar disorder; Translations: [Bipolar disorder, unspecified] Onset: 687750-77-0986PgsjhgtMcqgdirhaxc deficiencies (20 sources)Vitamin D deficiency; Translations: [Vitamin D deficiency, unspecified]50-62-8637NwluhyoPjtkq connective tissue disease (4 sources)Pain in right lower leg; Translations: [PAIN IN RIGHT LOWER LEG] Onset: 82-34-4922BtqieateEutjd connective tissue disease (2 sources)Pain in right foot; Translations: [Pain in right foot]03-01-2025 EpisodicOther gastrointestinal disorders (10 sources)Altered bowel function; Translations: [Change in bowel habit] 62-44-0878WszwntstFeqqa gastrointestinal disorders (10 sources)Abdominal bloating; Translations: [Abdominal distension (gaseous)] 22-59-1222FcwwqejtMsvgx gastrointestinal disorders (9 sources)Abdominal distension (gaseous); Translations: [Flatulence, eructation, and gas pain]86-68-4111FacofeijPtcat gastrointestinal disorders (9 sources)Change in bowel habit; Translations: [Other symptoms involving digestive system]84-88-7001NvbadiotKrwlc liver diseases (20 sources)Steatosis of liver; Translations: [Fatty (change of) liver, not elsewhere classified]92-44-0492DnknrstErnrv liver diseases (20 sources)Fatty (change of) liver, not elsewhere classified; Translations: [Other chronic nonalcoholic liver disease]Onset: 13-14-3620AbpaonqGrmyb lower respiratory disease (2 sources)Rib pain; Translations: [Pleurodynia]79-31-6543ShwkidqrFggfo lower respiratory disease (1 source)Pleurodynia; Translations: [Chest pain, unspecified]23-39-6955Sjsobgrt Other male genital disorders (8 sources)Cyst of epididymis; Translations: [Cyst of epididymis]Onset: 120826-99-3143EvikaajqKdbkz male genital disorders (1 source)Disorder of male genital organ; Translations: [Hydrocele, unspecified] 99-11-4000BuevqwzjWatbm male genital disorders (2 sources)Cyst of epididymis; Translations: [Cyst of epididymis]Onset: 38-53-0148CuoaebyxFatle male genital disorders (2 sources)Hydrocele, unspecified; Translations: [Hydrocele, unspecified]Onset: 48-39-8231OfimpmrsPiqen nervous system disorders (1 source)Bilateral carpal tunnel syndrome; Translations: [Carpal tunnel syndrome, bilateral upper limbs]64-85-5175ZjeqwaoDfawy non-traumatic joint disorders (4 sources)Other specified arthritis, unspecified site; Translations: [OTHER SPECIFIED ARTHRITIS UNS SITE]Onset: 21-59-9186ZwwrhnoSuzqm non-traumatic joint disorders (19 sources)Multiple joint pain; Translations: [Pain in unspecified joint] 36-61-9914FxbvcrqbGsnnr non-traumatic joint disorders (4 sources)Pain in unspecified joint; Translations: [Pain in joint, multiple sites]81-91-0184PyoedxujBvzuc non-traumatic joint disorders (20 sources)Pain in left knee; Translations: [Left knee pain]65-49-3381Pxkkbvgg Other non-traumatic joint disorders (6 sources)Pain in right knee; Translations: [Pain in joint, lower leg] 67-24-8244OmirovzaJxtuf non-traumatic joint disorders (2 sources)Ankle pain; Translations: [Pain in right ankle and joints of right foot]64-50-5121YxkfqlruQqely nutritional; endocrine; and metabolic disorders (19 sources)Morbid obesity; Translations: [Morbid (severe) obesity due to excess calories]55-26-4446TzslfmyGyzup nutritional; endocrine; and metabolic disorders (5 sources)Morbid (severe) obesity due to excess calories; Translations: [Morbid obesity]03-91-2858ZhwgfyaIyhxt nutritional; endocrine; and metabolic disorders (15 sources)Body mass index 40+ - severely obese; Translations: [Body mass index (BMI) 50.0-59.9, adult]81-08-8149CqqrniaBwfhm nutritional; endocrine; and metabolic disorders (15 sources)Body mass index (BMI) 50.0-59.9, adult; Translations: [Body Mass Index 50.0-59.9, adult]54-21-5977BgghgixHlxof nutritional; endocrine; and metabolic disorders (1 source)Body mass index (BMI) 60.0-69.9, adult; Translations: [Body mass index (BMI) 60.0-69.9, adult]Onset: 31-73-6267WgbsfrgJfwfd nutritional; endocrine; and metabolic disorders (18 sources)Abnormal weight gain; Translations: [Abnormal weight gain]08-13-2023 EpisodicOther nutritional; endocrine; and metabolic disorders (6 sources)Abnormal weight gain; Translations: [Abnormal weight gain]08-13-2023 EpisodicOther nutritional; endocrine; and metabolic disorders (10 sources)Decrease in appetite; Translations: [Anorexia]26-71-2540Ehquscie Other nutritional; endocrine; and metabolic disorders (5 sources)Anorexia; Translations: [Anorexia]07-88-3699MvaevfvqMjncz skin disorders (4 sources)Pilonidal disease; Translations: [Other specified disorders of the skin and subcutaneous tissue]03-14-7627PsncjkjhVkfhe skin disorders (1 source)Other specified disorders of the skin and subcutaneous tissue; Translations: [Other specified disorders of the skin and subcutaneous tissue] Onset: 23-28-8580HuxsfdetFlvuz upper respiratory infections (20 sources)Maxillary sinusitis; Translations: [Chronic maxillary sinusitis] 83-42-0549IznfulmDjsor upper respiratory infections (2 sources)Acute upper respiratory infection, unspecified; Translations: [Acute upper respiratory infection]Onset: 43-34-4207DlzvzdmgHywivi media and related conditions (1 source)Otitis media; Translations: [Otitis media, unspecified, right ear] Onset: 18-91-5986QrttkfkmNlujffmc codes; unclassified (19 sources)Family history of Luis thyroiditis; Translations: [Family history of other endocrine, nutritional and metabolic diseases]07-07-2023 EpisodicResidual codes; unclassified (19 sources)Disturbance in sleep behavior; Translations: [Sleep disorder, unspecified]77-51-8413PfczulteZouxkrfc codes; unclassified (4 sources)Family history of other endocrine, nutritional and metabolic diseases; Translations: [Family history of other endocrine and metabolic diseases]08-20-8486LjjoxbkrSosbkrki codes; unclassified (10 sources)Sleep disorder, unspecified; Translations: [Sleep disturbance, unspecified]36-56-1373PbcpyvqaSkpanuwz codes; unclassified (6 sources)Frequent night waking; Translations: [Insomnia, unspecified] 65-41-5737JtvuqajxOclbonis codes; unclassified (1 source)Insomnia, unspecified; Translations: [Other sleep disturbances] 93-35-1240VtiwrfyoIbqx and subcutaneous tissue infections (20 sources)Pilonidal abscess of teri cleft; Translations: [Pilonidal cyst with abscess]Onset: 651089-91-1663LnmakfryKyacdeokwml; intervertebral disc disorders; other back problems (8 sources)Disorder of right sciatic nerve; Translations: [Sciatica, right side] Onset: 524496-05-9308BtjmzyplSqjcjtxgetrn (1 source)Pain in right knee; Translations: [Pain in right knee]Onset: 12-01-8641Tiinvaqpnfng (2 sources)Autogenerated ProblemOnset: 35-49-468547692839-74-6282Uxynbckmsbka (1 source)Acute cough; Translations: [Acute cough]Onset: 92-88-2834Eaytsnkksuat (1 source)Tail Bone PainOnset: 98-41-3965Luzpvsbpusso (1 source)New PatientOnset: 16-01-6689Jqseqbcwhntl (1 source)Testicle PainOnset: 38-50-5772Ngidtdojmjex (1 source)SuicidalOnset: 70-97-1464Dkozbvtwdaam (1 source)my mental healthOnset: 39-50-5019Textvntyenpo (1 source)Post-opOnset: 21-32-6513Pfzfodgwwwav (1 source)CystOnset: 04-26-2024 Past or Other Problems Problem ClassificationProblemDateDocumented DateEpisodic/ChronicAppendicitis and other appendiceal conditions (14 sources)Acute appendicitis; Translations: [Unspecified acute appendicitis] Onset: 920803-96-2900SzcidyvtAmygzmgvvpovi mental health disorders (13 sources)At risk for deliberate self harm ; Translations: [Other symptoms and signs involving emotional state]Onset: 028730-60-3183EnacwjkzWuxrgfavoeb chest pain (1 source)Chest pain, unspecified; Translations: [Chest pain, unspecified]Onset: 71-24-7291QdszwelnUmssj connective tissue disease (1 source)Pain of bilateral hands; Translations: [Pain in right hand]07-21-2023 EpisodicOther lower respiratory disease (2 sources)Cough; Translations: [Cough, unspecified]Onset: 59-07-3930Hmmmrjhe Other screening for suspected conditions (not mental disorders or infectious disease) (9 sources)Elevated liver enzymes level; Translations: [Other specified abnormal findings of blood chemistry]Onset: 46-87-2370HicpsvifRsmhsrtqv and history of mental health and substance abuse codes (1 source)Personal history of other mental and behavioral disorders; Translations: [Personal history of othermental and behavioral disorders]Onset: 32-65-2549QkcpwjalVzmkrvb and intentional self-inflicted injury (1 source)Suicidal ideations; Translations: [Suicidal ideations]Onset: 87-23-6299Ozglnvsb Results Test NameValueInterpretationReference RangeFacilityPOCT NURSING URINE MACROSCOPIC UAon 72-81-5468PBODIQQRH NURNegativeNormalNegativeProLima Memorial Hospitalca [facility] HospitalComment on above:Performed By: #### 71485-3, 5643-2, CBCA, 3298-7, 4024- 6, CMP, THYR #### [facility] ([id number]) [address], [address] [place], [place] [address]CANYC/HGB NURNegativeNormalNegativeKettering Health Preble Comment on above:Performed By: #### 94661-3, 5643-2, CBCA, 3298-7, 4024-6, CMP, THYR #### [facility] ([id number]) [address], [address] [place], [place] [address]PUKCZFP NURNegativeKnoxvilleNegativeKettering Health Preble Comment on above:Performed By: #### 81504-8, 5643-2, CBCA, 3298-7, 4024-6, CMP, THYR #### [facility] ([id number]) [address], [address] [place], [place] [address]QUAKLIY NURNegativeKnoxvilleNegativeKettering Health Preble Comment on above:Performed By: #### 40613-6, 5643-2, CBCA, 3298-7, 4024-6, CMP, THYR #### [facility] ([id number]) [address], [address] [place], [place] [address]TVYUTHEHM ESTERASE NURNegativeNormalNegativeKettering Health PrebleComment on above:Performed By: #### 50419-0, 5643-2, CBCA, 3298-7, 4024- 6, CMP, THYR #### [facility] ([id number]) [address], [address] [place], [place] [address]LZSYYLH NURNegativeNormalNegativeKettering Health Preble Comment on above:Performed By: #### 22736-5, 5643-2, CBCA, 3298-7, 4024-6, CMP, THYR #### [facility] ([id number]) [address], [address] [place], [place] [address]LH NUR5.5Ntqeue9.0, 6.0, 6.5, 7.0, 7.5, 8.0, 8.5, 5.5Pro[facility] HospitalComment on above:Performed By: #### 34555-1, 5643-2, CBCA, 3298- 7, 4024-6, CMP, THYR #### [facility] ([id number]) [address], [address] [place], [place] [address]XXHKTZB NURNegativeNormalNegativeKettering Health Preble Comment on above:Performed By: #### 81484-3, 5643-2, CBCA, 3298-7, 4024-6, CMP, THYR #### [facility] ([id number]) [address], [address] [place], [place] [address]VXRLKTEX GRAVITY SUE>=1.746Yudevkia1.010, 1.015, 1.020, 1.025 [facility] HospitalComment on above:Performed By: #### 86005-1, 5643-2, CBCA, 3298-7, 4024-6, CMP, THYR #### [facility] ([id number]) [address], [address] [place], [place] [address]MDWAVJTOFCKN NUR0.2 E.U./dLNormalKettering Health Preble Comment on above:Performed By: #### 25509-9, 5643-2, CBCA, 3298-7, 4024-6, CMP, THYR #### [facility] ([id number]) [address], [address] [place], [place] [address]VY SCROTUM WITH DUPLEXon 60-34-5519OQ SCROTUM WITH DUPLEXUS SCROTUM WITH DUPLEX CLINICAL [...] by Maciel Skaggs MD on 12/30/2024 12:32 AMNormalProDoctors HospitalBASI METABOLIC PANELon 76-13-9066Afyar gap [Moles/Vol]12 mmol/LNormal 5-15T[facility]carawas HospitalComment on above:Performed By: #### BMP #### [facility] ([facility] [place]) [address] [place] [address] VIRCalcium [Mass/Vol]10.2 mg/dLNormal8.5-10.5PWayne HealthCare Main CampusComment on above:Performed By: #### BMP #### [facility] ([facility] [place]) [address] [place] [address] VIRChloride [Moles/Vol]103 mmol/AOujhza05-808SthWbxwrcStephens Memorial HospitalComment on above:Performed By: #### BMP #### [facility] ([facility] [place]) [address] [place] [address] VIRCO2 [Moles/Vol]28 mmol/KAzuvxq14-25JlfYpgrmuWayne HealthCare Main CampusComment on above:Performed By: #### BMP #### [facility] ([facility] [place]) [address] [place] [address] VIRCreatinine [Mass/Vol]0.96 mg/dLNormal0.60-1.30ProStephens Memorial HospitalComment on above:Result Comment: METHOD TRACEABLE TO IDMS STANDARDPerformed By: #### BMP #### [facility] ([facility] [place]) [address] [place] [address] VIREGFR (CKD-EPI) NON-RACE DEPENDENT>^90Normal>=60ProStephens Memorial HospitalComment on above:Result Comment: Reported eGFR is based on the CKD-EPI 2020 equation that does not use a race coefficient.Performed By: #### BMP #### [facility] ([facility] [place]) [address] [place] [address] VIRGlucose [Mass/Vol]90 mg/gEFcvezc88-93FmgYoxcqmStephens Memorial HospitalComment on above:Performed By: #### BMP #### [facility] ([facility] [place]) [address] [place] [address] VIRPotassium [Moles/Vol]3.9 mmol/LNormal3.5-5.0T[facility]carawas HospitalComment on above:Performed By: #### BMP #### [facility] ([facility] [place]) [address] [place] [address] VIRSodium [Moles/Vol]143 mmol/EHvanua773-495EllYkgbez [facility]remont HospitalComment on above:Performed By: #### BMP #### [facility] ([facility] [place]) [address] [place] [address] VIRUrea nitrogen [Mass/Vol]14 mg/dLNormal5-23ProStephens Memorial HospitalComment on above:Performed By: #### BMP #### [facility] ([facility] [place]) [address] [place] [address] VIRHGB A1C (GLYCO-HGB)on 37-08-5911Bwqvknv [Mass/Vol]111 mg/dL NormalProDiley Ridge Medical Center HospitalComment on above:Performed By: #### 07763-7, 5643-2, CBCA, 3298-7, 4024-6, CMP, THYR #### [facility] ([id number]) [address], [address] [place], [place] [address]IrA9f (Bld) [Mass fraction]5.5 %Normal4.4-5.6ProDiley Ridge Medical Center HospitalComment on above:Result Comment: NOTE ADA Guidelines Result HgbA1c Normal : less than 5.7 % Prediabetes : 5.7 % to 6.4 % Diabetes : > 6.4 % Use with caution in patients with abnormal hemoglobin variants as the half-life of red blood cells and in vivo glycation rates are affected.Performed By: #### 94192-7, 5643-2, CBCA, 3298-7, 4024-6, CMP, THYR #### [facility] ([id number]) [address], [address] [place], [place] [address]Kupon 1996 panelon 38-19-9779Cigythdoshk [Mass/Vol]172 mg/dL Dcmxer533-994QzoVlzeqd [place] HospitalComment on above:Performed By: ###Bharat OWENS 94073-2 #### [facility] ([id number]) [address], [address] [place], [place] [address]Ibgvctfztrp in HDL [Mass/Vol]33 mg/dLLow>39ProDiley Ridge Medical Center HospitalComment on above:Result Comment: HDL <40 mg/dL - High Risk HDL > or = 40mg/dL- Desirable HDL >60 mg/dL - Negative Risk Performed By: ###Bharat OWENS 59541-0 #### [facility] ([id number]) [address], [address] [place], [place] [address]Qaiirdfflwx in LDL [Mass/Vol]117 mg/dLNormal<130ProDiley Ridge Medical Center HospitalComment on above:Result Comment: LDL <100 mg/dL - Desirable LDL >160 mg/dL - High Risk Performed By: #### GRACIELA 87510-6 #### [facility] ([id number]) [address], [address] [place], [place] [address]Ywmezivvczj in VLDL [Mass/Vol]22 mg/dLNormal0-30ProDiley Ridge Medical Center HospitalComment on above:Performed By: ###Bharat OWENS 51975-7 #### [facility] ([id number]) [address], [address] [place], [place] [address]KIFMPGAAKJG:HDL5.2High1.0-5.0ProDiley Ridge Medical Center HospitalComment on above:Performed By: ###Bharat OWENS 73319-4 #### [facility] ([id number]) [address], [address] [place], [place] [address]Mvpkxdajzqma [Mass/Vol]109 mg/aSVprqnu62-547VpkDlwiaa [place] HospitalComment on above:Performed By: ###Bharat OWENS 64395-3 #### [facility] ([id number]) [address], [address] [place], [place] [address]BBVQYWWSEMRBXdh 12-15-9060Psizfkginnwcg [Mass/Vol]ug/mLLow 10.0-30.0ProDiley Ridge Medical Center HospitalComment on above:Result Comment: Reference ranges are for therapeutic limits.Performed By: #### 73424-1, 5643-2, CBCA, 3298-7, 4024-6, CMP, THYR #### [facility] ([id number]) [address], [address] [place], [place] [address]PWK AND AUTO DIFFon 04-03-9035CHNVXZRL BASOPHIL0.1 X10E9/LNormal 0.0-0.2Pro[facility] HospitalComment on above:Performed By: #### 42993-2, 5643-2, CBCA, 3298-7, 4024-6, CMP, THYR #### [facility] ([id number]) [address], [address] [place], [place] [address]EYJAVRCA NEUTROPHIL6.5 X10E9/LNormal1.5-6.6ProDoctors HospitalComment on above:Performed By: #### 35000-4, 5643-2, CBCA, 3298-7, 4024- 6, CMP, THYR #### [facility] ([id number]) [address], [address] [place], [place] [address]Fespsusui/100 WBC (Bld)0.6 %NormalKettering Health Preble Comment on above:Performed By: #### 93727-6, 5643-2, CBCA, 3298-7, 4024-6, CMP, THYR #### [facility] ([id number]) [address], [address] [place], [place] [address]Ylqgywifouc (Bld) [#/Vol]0.1 10*3/uLNormal0.0-0.4ProDoctors HospitalComment on above:Performed By: #### 96228-5, 5643-2, CBCA, 3298- 7, 4024-6, CMP, THYR #### [facility] ([id number]) [address], [address] [place], [place] [address]Qxiwszxhrau/100 WBC (Bld)0.7 %NormalKettering Health Preble Comment on above:Performed By: #### 76303-4, 5643-2, CBCA, 3298-7, 4024-6, CMP, THYR #### [facility] ([id number]) [address], [address] [place], [place] [address]Aqfrpogvqib distribution width (RBC) [Ratio]13.6 %Normal 11.5-15.0ProDiley Ridge Medical Center HospitalComment on above:Performed By: #### 92335-8, 5643-2, CBCA, 3298-7, 4024-6, CMP, THYR #### [facility] ([id number]) [address], [address] [place], [place] [address]Ubmsycknhu (Bld) [Volume fraction]43.5 %Qnvdye31-50MzaDxhnrc [place] HospitalComment on above:Performed By: #### 09257-9, 5643-2, CBCA, 3298- 7, 4024-6, CMP, THYR #### [facility] ([id number]) [address], [address] [place] [address]Xcqdhfoost (Bld) [Mass/Vol]15.5 g/sEYitult97.0-17.0ProDiley Ridge Medical Center HospitalComment on above:Performed By: #### 27748-7, 5643-2, CBCA, 3298- 7, 4024-6, CMP, THYR #### [facility] ([id number]) [address], [address] [place], [place] [address]Ghrxccnbcuk (Bld) [#/Vol]2.0 10*3/uLNormal1.0-3.5ProMedica [facility]oli HospitalComment on above:Performed By: #### 37003-3, 5643-2, CBCA, 3298- 7, 4024-6, CMP, THYR #### [facility] ([id number]) [address], [address] [place], [place] [address]Ycnpfbkbkll/100 WBC (Bld)21.0 %NormalProDiley Ridge Medical Center Hospital Comment on above:Performed By: #### 92669-6, 5643-2, CBCA, 3298-7, 4024-6, CMP, THYR #### [facility] ([id number]) [address], [address] [place], [place] [address]RUO (RBC) [Entitic mass]30.4 isIjdqgm57-37KofMoqgzo [place] HospitalComment on above:Performed By: #### 53062-6, 5643-2, CBCA, 3298-7, 4024- 6, CMP, THYR #### [facility] ([id number]) [address], [address] [place], [place] [address]CSMP (RBC) [Mass/Vol]35.7 g/zAAednhx91-38RjhDwggxw [place] HospitalComment on above:Performed By: #### 19890-2, 5643-2, CBCA, 3298-7, 4024- 6, CMP, THYR #### [facility] ([id number]) [address], [address] [place], [place] [address]HEK (RBC) [Entitic vol]85 iRWfryvr23-664ZpgCvyibk [place] HospitalComment on above:Performed By: #### 24491-7, 5643-2, CBCA, 3298-7, 4024- 6, CMP, THYR #### [facility] ([id number]) [address], [address] [place], [place] [address]Quokbwihx (Bld) [#/Vol]0.8 10*3/uLNormal0-0.9ProDiley Ridge Medical Center HospitalComment on above:Performed By: #### 88601-3, 5643-2, CBCA, 3298-7, 4024- 6, CMP, THYR #### [facility] ([id number]) [address], [address] [place], [place] [address]Obvalugrd/100 WBC (Bld)8.5 %NormalProDiley Ridge Medical Center Hospital Comment on above:Performed By: #### 69185-5, 5643-2, CBCA, 3298-7, 4024-6, CMP, THYR #### [facility] ([id number]) [address], [address] [place], [place] [address]Daxivzbifux/100 WBC (Bld)69.2 %NormalKettering Health Preble Comment on above:Performed By: #### 41863-1, 5643-2, CBCA, 3298-7, 4024-6, CMP, THYR #### [facility] ([id number]) [address], [address] [place], [place] [address]Kwlilkgu mean volume (Bld) [Entitic vol]8.7 fLNormal7-12 ProMUniversity Hospitals Cleveland Medical CenterComment on above:Performed By: #### 81015-3, 5643-2, CBCA, 3298-7, 4024-6, CMP, THYR #### [facility] ([id number]) [address], [address] [place], [place] [address]Ueipwdcch (Bld) [#/Vol]248 10*3/mKZjqrhs893-138PayKjcqlg [place] HospitalComment on above:Performed By: #### 04479-8, 5643-2, CBCA, 3298-7, 4024- 6, CMP, THYR #### [facility] ([id number]) [address], [address] [place], [place] [address]RQH COUNT5.09 X10E12/LNormal4.10-5.70[facility] Comment on above:Performed By: #### 20343-2, 5643-2, CBCA, 3298-7, 4024-6, CMP, THYR #### [facility] ([id number]) [address], [address] [place], [place] [address]CFZ (Bld) [#/Vol]9.4 10*3/uLNormal4.0-11.0Pro[facility] HospitalComment on above:Performed By: #### 35968-8, 5643-2, CBCA, 3298-7, 4024- 6, CMP, THYR #### [facility] ([id number]) [address], [address] [place] [address]ZEHLLNWAYIEDJ METABOLIC PANELon 93-68-8681Bbssspt [Mass/Vol]4.3 g/dLNormal3.2-5.3Pro[facility] Stevens HospitalComment on above:Performed By: #### 45037-9, 5643-2, CBCA, 3298-7, 4024-6, CMP, THYR #### [facility] ([id number]) [address], [address] [place] [address]GXW [Catalytic activity/Vol]81 U/OFsobes34-231AbvScwpta Stevens HospitalComment on above:Performed By: #### 51859-0, 5643-2, CBCA, 3298-7, 4024- 6, CMP, THYR #### [facility] ([id number]) [address], [address] [place], [place] [address]VIL [Catalytic activity/Vol]60 U/LHigh0-40[facility] HospitalComment on above:Performed By: #### 14400-7, 5643-2, CBCA, 3298-7, 4024- 6, CMP, THYR #### [facility] ([id number]) [address], [address] [place], [place] [address]Acnvx gap [Moles/Vol]11 mmol/LNormal5-15[facility] HospitalComment on above:Performed By: #### 95248-6, 5643-2, CBCA, 3298-7, 4024- 6, CMP, THYR #### [facility] ([id number]) [address], [address] [place] [address]BUU [Catalytic activity/Vol]38 U/LNormal0-41[facility] HospitalComment on above:Performed By: #### 10000-5, 5643-2, CBCA, 3298-7, 4024- 6, CMP, THYR #### [facility] ([id number]) [address], [address] [place], [place] [address]Dzsckqpwx [Mass/Vol]1.3 mg/dLHigh0.3-1.2PPremier Health Miami [facility] Hospital South HospitalComment on above:Performed By: #### 36382-6, 5643-2, CBCA, 3298-7, 4024- 6, CMP, THYR #### [facility] ([id number]) [address], [address] [place], [place] [address]Eymhsxh [Mass/Vol]9.6 mg/dLNormal8.5-10.5ProMedKettering Health Miamisburg HospitalComment on above:Performed By: #### 45205-8, 5643-2, CBCA, 3298-7, 4024- 6, CMP, THYR #### [facility] ([id number]) [address], [address] [place], [place] [address]Ldzczlxq [Moles/Vol]104 mmol/TPdamsh91-501BcgPbesys [place]oli HospitalComment on above:Performed By: #### 71581-0, 5643-2, CBCA, 3298-7, 4024- 6, CMP, THYR #### [facility] ([id number]) [address], [address] [place], [place] [address]NP6 [Moles/Vol]23 mmol/WGcfnem41-08HayBvgecd [facility] Comment on above:Performed By: #### 11232-0, 5643-2, CBCA, 3298-7, 4024-6, CMP, THYR #### [facility] ([id number]) [address], [address] [place], [place] [address]Bhhakkjahw [Mass/Vol]0.89 mg/dLNormal0.60-1.30Pro[facility] HospitalComment on above:Result Comment: METHOD TRACEABLE TO IDMS STANDARD Performed By: #### 37357-9, 5643-2, CBCA, 3298-7, 4024-6, CMP, THYR #### [facility] ([id number]) [address], [address] [place], [place] [address]iMSA (CKD-EPI) NON-RACE DEPENDENT>90Normal>59ProDoctors HospitalComment on above:Result Comment: Reported eGFR is based on the CKD-EPI 2020 equation that does not use a race coefficient.Performed By: #### 53283-7, 5643-2, CBCA, 3298-7, 4024-6, CMP, THYR #### [facility] ([id number]) [address], [address] [place], [place] [address]Ajzjdid [Mass/Vol]93 mg/nYTwiiah74-09CruQdzclq [facility] Comment on above:Performed By: #### 61139-4, 5643-2, CBCA, 3298-7, 4024-6, CMP, THYR #### [facility] ([id number]) [address] [address] [place], [place] [address]Seklftxzm [Moles/Vol]4.2 mmol/LNormal3.5-5.0[facility] Health PrebleComment on above:Performed By: #### 38416-2, 5643-2, CBCA, 3298-7, 4024- 6, CMP, THYR #### [facility] ([id number]) [address], [address] [place], [place] [address]Yzmptkc [Mass/Vol]7.8 g/dLNormal6.0-8.0[facility] Comment on above:Performed By: #### 99949-5, 5643-2, CBCA, 3298-7, 4024-6, CMP, THYR #### [facility] ([id number]) [address], [address] [place], [place] [address]Nvgkpc [Moles/Vol]138 mmol/AUnqgqk860-111UpxRtzseu [facility] HospitalComment on above:Performed By: #### 60748-4, 5643-2, CBCA, 3298-7, 4024- 6, CMP, THYR #### [facility] ([id number]) [address], [address] [place], [place] [address]Bgpq nitrogen [Mass/Vol]16 mg/dLNormal5-23[facility] HospitalComment on above:Performed By: #### 28997-8, 5643-2, CBCA, 3298-7, 4024- 6, CMP, THYR #### [facility] ([id number]) [address] [place], [place] [address]CPLQ SCREEN, URINEon 79-74-7852IBSBQHNBEZR/METHAMPNegativeNormal NEGProMedica Stevens HospitalComment on above:Result Comment: AMPH/METH screening cut off = 1000 ng/mLPerformed By: #### DSU #### [facility] ([id number]) [address], [address] [place], [place] [address]ROJYRXGAFMGQEhssrnulBpodggIWDOkhQjvynf Stevens HospitalComment on above:Result Comment: Barbiturates screening cut off value = 200 ng/mLPerformed By: #### DSU #### [facility] ([id number]) [address], [address] [place], [place] [address]KCHSWLTBATRJTZFPprlbjpuDbslxgXMAYfzBkrrmt [facility] HospitalComment on above:Result Comment: Benzodiazepines screening cut off value = 200 ng/mL Performed By: #### DSU #### [facility] ([id number]) [address] [place], [place] [address]RJEXVZAZPAIZGbxpvaezGdvptqJFPDieVywdgp Stevens HospitalComment on above:Result Comment: Cannabinoids/THC screening cut off value = 50 ng/mL Performed By: #### DSU #### [facility] ([id number]) [address], [address] [place], [place] [address]TCBEIFZ METABOLITENegativeNormalNEGProDiley [facility] Comment on above:Result Comment: Cocaine screening cut off value = 300 ng/mL Performed By: #### DSU #### [facility] ([id number]) [address], [address] [place], [place] [address]GDDFVKFNapgutnkFnfigpHQIZkrBrqowp [facility] HospitalComment on above:Result Comment: Ecstasy screening cut off value = 500 ng/mL This report is intended for use in clinical monitoring or management of patients.Performed By: #### DSU #### [facility] ([id number]) [address], [address] [place], [place] [address]PETMIVPTVGonrgiadUolsrtMRADzoSzjetw [place] HospitalComment on above:Result Comment: Methadone screening cut off value = 300 ng/mL.Performed By: #### DSU #### [facility] ([id number]) [address], [address] [place], [place] [address]LGFJZIEEfalphsmLeuzflSRFMfrLjsktj [facility] HospitalComment on above:Result Comment: Opiates screening cut off value = 300 ng/mL NOTE: This test is used for the detection of codeine, hydrocodone (>1000 ng/mL), morphine and hydromorphone (>900 ng/mL) in urine.Performed By: #### DSU #### [facility] ([id number]) [address], [address] [place], [place] [address]LMLJEDARLPebrcflqLogejoBNWCdaQclsrn [facility] HospitalComment on above:Result Comment: Oxycodone screening cut off value = 300 ng/mL NOTE: This test is used for the detection of oxycodone and oxymorphone in urine.Performed By: #### DSU #### [facility] ([id number]) [address], [address] [place], [place] [address]DUCWIGDPLONPIDmyihrwjHbxtpcAIZCfbYlhbsw [facility] HospitalComment on above:Result Comment: Phencyclidine screening cut off value = 25 ng/mL Performed By: #### DSU #### [facility] ([id number]) [address] [place] [address], [address] [place], [place] [address]ATICLPZfa 10-27-3307Toriqkg [Mass/Vol]mg/dLNormal0.00-0.08 [facility] PrebleComment on above:Result Comment: This report is intended for use in clinical monitoring or management of patients.Performed By: #### 33388-5, 5643-2, CBCA, 3298-7, 4024-6, CMP, THYR #### [facility] ([id number]) [address] [place] [address], [address] [place], [place] [address]Auetseeljww [Mass/Vol]on 66-71-3174EMVIEEJOUU<2.9Dkvgky0.0-25.0 [facility] PrebleComment on above:Result Comment: Reference ranges are for therapeutic limits.Performed By: #### 54591-5, 5643-2, CBCA, 3298-7, 4024-6, CMP, THYR #### [facility] ([id number]) [address] [place] [address], [address] [place], [place] [address]ERJILUJ PROFILEon 35-89-8723Bxxl T4 [Mass/Vol]0.86 ng/dLNormal 0.61-1.60ProDoctors HospitalComment on above:Performed By: #### 87194-7, 5643-2, CBCA, 3298-7, 4024-6, CMP, THYR #### [facility] ([id number]) [address] [place] [address], [address] [place], [place] [address]LSE0.67 uIU/mLNormal0.49-4.67[facility] PrebleComment on above:Performed By: #### 39454-0, 5643-2, CBCA, 3298-7, 4024-6, CMP, THYR #### [facility] ([id number]) [address] [place], [place] [address]Gjyarsdlq antidepressants [Mass/Vol]on 64-47-3737XNXDBREJKI NegativeNormalNEGProMedica Stevens HospitalComment on above:Performed By: #### 72917-8, 5643-2, CBCA, 3298-7, 4024-6, CMP, THYR #### [facility] ([id number]) [address] [facility], [address] [place], [place] [address]LMN MACROSCOPIC NURon 99-08-9679ORPWFNJEU NURNegativeNormalNEG ProMedica Stevens HospitalComment on above:Performed By: #### NUM #### [facility] ([id number]) [address] [place], [place] [address]FTYYY/HGB NURNegativeNormalNEGProMedica Stevens HospitalComment on above:Performed By: #### NUM #### [facility] ([id number]) [address], [place] [address]BRYWYEM NURNegativeNormalNEGProMedica Stevens HospitalComment on above:Performed By: #### NUM #### [facility] ([id number]) [address], [place] [address]QPKOLIA NURNegativeNormalNEGProMedica Stevens HospitalComment on above:Performed By: #### NUM #### [facility] ([id number]) [address], [place] [address]CJRNLFTXS ESTERASE NURNegativeNormalNEGProMedica Stevens Hospital Comment on above:Performed By: #### NUM #### [facility] ([id number]) [address], [place] [address]KBBTHUC NURNegativeNormalNEGProMedica Stevens HospitalComment on above:Performed By: #### NUM #### [facility] ([id number]) [address], [place] [address]XQ NUR5.7Ckgllt4.0-8.5PLouis Stokes Cleveland VA Medical CenterComment on above: Performed By: #### NUM #### [facility] ([id number]) [address], [place] [address]IGSOVWZ NURNegativeNormalNEGProDoctors HospitalComment on above:Performed By: #### NUM #### [facility] ([id number]) [address], [place] [address]KJRUXGWV GRAVITY SUE>=1.744Kbbxxp7.003-1.035ProDoctors HospitalComment on above:Performed By: #### NUM #### [facility] ([id number]) [address], [place] [address]TSJFFZPQUFUL NUR0.2 eu/dLNormal<1.1PLouis Stokes [facility] Medical Center Comment on above:Performed By: #### NUM #### [facility] ([id number]) [address], [place] [address]MW Note-Physicianon 20-48-9554PL Note-PhysicianED Note-Physician Basic Information Time Seen: Santiago Turner PA-C 07/05/2024 21:54 Chief Complaint Pt arrives to ED from home with c/o a sharp pain to his upper right chest whenever he coughs, states he sometimes gets winded. States cough is productive. Pa fevers/chills. 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 History of Present Illness Patient is a [...] day(s), # 14 cap(s), Refills(s) 0, Pharmacy: [id number], 183, cm, 07/05/24 21:52:00 EST, Height/Length Dosing, 195.2, kg, 07/05/24 21:52:00 EST, Weight Dosing naproxen, 500 mg = 1 tab(s), Oral, BI (more content not included)...[facility] Cleveland WestComment on above:Result Comment: Electronically Signed By: Santiago Turner PA-C\.br\Date and Time Signed: 07/06/2499:50 EST\.br\Electronically Co-Signed By: Nato Lezama DO\.true\Date and Time Co- Signed: 07/06/24 06:36 ESTXR Chest 2 Viewson 60-19-4952TB Chest 2 ViewsExam Date/Time: 07/05/2024 22:12 EST [...] Lewis Pineda DO Transcribed by: ADELE Technologist: [facility] Clinical Summaryon [id number] Clinical SummaryED Clinical Summary [place] [id number] ED Clinical Summary Person Information Name: JET DUNCAN/[facility] Age: 18 Years : 2005 Sex: Male Language: Telugu PCP: Abbi JAY CNP Marital Status: Single [...] 07/05/2024 23:18:30 07/05/2024 23:18:30 07/05/2024 23:18:30 ADDRESS: [address] [place] [address] [address] [place] [id number] PHYS DOC NOTES: MEDICAL INFORMATION: Prescriptions Given: New Medications [id number], [address], [place] [id number], [phone] cefdinir (cefdinir 300 mg Cap) 1 Capsules By Mouth every 12 hours for 7 Days. Refills: 0. naproxen (naproxen 500 mg Tab) 1 Tablets By Mouth 2 times a day for 10 Days. Refills: 0. PATIENT EDUCATION INFORMATION: Instructions: Upper Respiratory Infection, Adult; Otitis Media, Adult Follow up: With: Address: When: Abbi JAY [address] [place] [id number] [phone] Raiing (1) In 3 days 07/08/2024 DIAGNOSIS: Cough; Otitis media, right; Upper respiratory infectionNoC[facility] Clinic [facility] Patient Summaryon 27-60-7448IZ Patient SummaryED Patient Summary [place] [id number] Patient Discharge Instructions Person Information Name: JET DUNCAN Age: 18 Years Arrival Date: 07/05/2024 21:45:44 Discharge Diagnosis: Cough; Otitis media, right; Upper respiratory infection Primary Care Physician: Abbi JAY CNP Provider Information Primary Provider: Nato Lezama DO Advanced Power Saw Mechanic:Santiago Turner PA-C. The exam and treatment you received in the Emergency Department were for an urgent problem and are not intended as complete care. It is important that you follow up with a doctor, nurse practitioner,or physician???s miller head assistant wet process for ongoing care. If your symptoms become worse or you do not improve asexpected and you are unable to reach your usual health care provider, you should return to the Emergency Department. We are available 24 hours a day. JET DUNCAN has been given the following list of patient education materials, prescriptions and follow-up instructions: Follow-up Instructions: With: Address: When: [address] [place] [phone] Raiing (1) In 3 days 07/08/2024 In the event that this physician does not participate in your insurance network, please consult with your insurance company to find a nearby participating provider. Patient Education Materials: Upper Respiratory Infection, Adult; Otitis Media, Adult A MESSAGE TO ALL PATIENTS REGARDING OPIOIDS PRESCRIPTION OPIOIDS: WHAT YOU NEED TO KNOW Prescription opioids can be used to help relieve mywtggqa-kf-utnxvv pain and are often prescribed following a [...] be struggling with (more content not included)... [facility] Cleveland WestInfluenza A&B Agon 74-14-3662Njqucxmakp A Ag NegativeNormalNegativeOur Lady Of Mercy HospitalComment on above:Performed By: #### [id number] #### [facility] [address] [place], [place] [address]Clbrlsewwl B AgNegativeNormalNegCleveland Clinic Mentor HospitalComment on above:Result Comment: Test sensitivity and specificity vary for age group, specimen type, antigen types, and prevalence of disease. Test results must be evaluated in conjunction with other clinical data available to the physician. Individuals who received nasally administered Influenza A vaccine may havepositive test results up to 3 days after vaccination.Performed By: #### [id number] #### [facility] [address] [place], [place] [address]HTQMQ OTHER TESTSOrdered By: Pauline Munoz on 07-05-2024 Influenzae A AgNegative (07/05/24 10:36 PM)NormalNegativeNOR[facility]WE[facility] [place] Man SeroInfluenzae B AgNegative 1 (07/05/24 10:36 PM)NormalNegativeNORTHWEST SURGICAL [facility] [place] Man SeroComment on [...] vaccination.Rapid COV Int NEG CtlPass (07/05/24 10:36 PM)NormalFT Man SeroRapid COV Int POS CtlPass (07/05/24 10:36 PM)NormalNORTHWEST SURGICAL [facility]OSP[facility] [place] Man SeroSARS-CoV+SARS-CoV-2 (COVID-19) Ag IA.rapid Ql (Resp)Not Detected 2 (07/05/24 10:36 PM)NormalNot DetectedNORTHWEST SURGICAL [facility]OSPITAL [facility] [place] Man SeroComment on above:Interpretive Data: The Definigen System for Rapid Detection of SARS-CoV-2 is [...] terminated or revoked sooner.Rapid COVID Antigen ([facility])on 23-44-3974Ajrfn COV Int NEG CtlPassNormWright-Patterson Medical CenterComment on above:Performed By: #### [id number] #### [facility] [address] [place], [place] [address]Iunui COV Int POS CtlPassNormWright-Patterson Medical Center Comment on above:Performed By: #### [id number] #### [facility] [address] [place], [place] [address]HWSS-GnO+SARS-CoV-2 (COVID-19) Ag IA.rapid Ql (Resp)Not detectedNormalNot Marymount HospitalComment on above:Result Comment: The Locishitor??? System for Rapid Detection of SARS-CoV-2 is [...] is terminated or revoked sooner.Performed By: #### [id number] #### [facility] [address] [place] [id number] CHEST 1 VWon 48-39-3029NF CHEST 1 VWXR CHEST 1 VW EXAM: XR CHEST 1 VW CLINICAL INFORMATION: Cough, sob. COMPARISON: 10/30/2023 FINDINGS: There are no pleural effusions. The lungs are clear and well aerated. Heart size is within normal limits. IMPRESSION: 1. No acute cardiopulmonary disease. Finalized by Sotero Meneses MD on 07/05/2024 2:46 [facility] Pathology study report documentOrdered By: Chavez Valentine on 55-05-8194Zffbtkeim study [facility] Other Lot [id number] Specimen: [id number] Received: 03/22/24 Status: MELECIO Janessa Num: [id number] Spec Type: Surgical Subm Dr: Wilver Felton MD Tissues: A Small Intestine - Biopsy/Polyp (SMALL BOWEL BX'S R/O CELIAC) B GASTRIC FOR HP (GASTRIC BX'S R/O H PYLORI) C Colon Biopsy (RANDOM COLON BX'S R/O MICRO ) Procedures: HE/6, Gross/Micro L4/3, H PYLORI Age/ Patient Sex Location Account Attending Physician Jet Duncan 18/[facility] [id number] Wilver Felton MD SPEC NUM: [id number] RECD: 03/22/24 STATUS: MELECIO LITTLE NUM: [id number] OLEGARIO: 03/22/24 [facility] DR: Wilver Felton MD ENTERED: 03/22/24 [facility] DR: GUSTAVO TYPE: Surgical DEPT: S ENTERED BY: [id number] RECV BY: [id number] ORDERED: HE/6, Gross/Micro L4/3, H PYLORI ORDERED: [...] submitted in a single cassette. (1, ns, [id number] A) NAOMI Specimen: [id number] Received: 03/22/24 Status: MELECIO Little Num: [id number] Spec Type: Surgical Subm Dr: Wilver Felton MD Tissues: A Small Intestine - Biopsy/Polyp (SMALL BOWEL BX'S R/O CELIAC) B GASTRIC FOR HP (GASTRIC BX'S R/O H PYLORI) C Colon Biopsy (RANDOM COLON BX'S R/O MICRO ) Procedures: HE/6, Gross/Micro L4/3, H PYLORI Patient: Jet Duncan [id number] (Continued) Specimen: [id number] Received: 03/22/24 (Continued) Gross Description (Continued) Signed (signature on file) Chavez Valentine MD 03/23/24 1501 Specimen: [id number] Received: 03/22/24 Status: MELECIO Ridleypavel Num: [id number] Spec Type: Surgical Subm Dr: Wilver Felton MD Tissues: A Small Intestine - Biopsy/Polyp (SMALL BOWEL BX'S R/O CELIAC) B GASTRIC FOR HP (GASTRIC BX'S R/O H PYLORI) C Colon Biopsy (RANDOM COLON BX'S R/O MICRO ) Procedures: HE/6, Gross/Micro L4/3, H PYLORI Patient: Jet Duncan [id number] (Continued) Specimen: [id number] Received: 03/22/24 (Continued) Gross Description (Continued) Part B is received in formalin labeled with the patients name and gastric BX are two richards- waldrop, focally erythematous, friable, 0.3 cm each in greatest dimension tissue bits. The specimen is entirely submitted in a single cassette. (1, ns, [id number]) Part C is received in formalin labeled with the patients name and random colon BX'S are two richards-waldrop, focally erythematous, friable, 0.2 and 0.4 cm tissue bits. The specimen is entirely submitted in a single cassette. (1, ns, [id number] 2201 C) Microscopic Description A-C: Microscopic examination is performed. CPT Codes 19340 x3, 65990 Specimen: [id number] Received: 03/22/24 Status: MELECIO Janessa Num: [id number] Spec Type: Surgical Subm Dr: Wilver Felton MD Tissues: A Small Intestine - Biopsy/Polyp (SMALL BOWEL BX'S R/O CELIAC) B GASTRIC FOR HP (GASTRIC BX'S R/O H PYLORI) C Colon Biopsy (RANDOM COLON BX'S R/O MICRO ) Procedures: HE/6, Gross/Micro L4/3, H PYLORI (more content not included)...NormalThe Randolph Health Physician GroupCholesterol [Mass/volume] in Serum or PlasmaOrdered By: Kareem Tijerina on 08-13-2023 Cholesterol [Mass/Vol]162 mg/yWLknqdb391-373XdwibpnxqMercy Health Lorain Hospital Comment on above:Chol less than 200 mg/dl low riskChol 201-239 mg/dl borderline riskChol 240 mg/dl and greater high riskResult Comment: Chol less than 200 mg/dl low risk Chol 201-239 mg/dl borderline risk Chol 240 mg/dl and greater high riskPerformed By: #### MITOM2, L-K MICRO, ALPHA PHEN, HEMOCHROM, CERULOP, TENA, IGG, SMAB #### [facility] , #### PARVEEN, TSH3 #### [address] [address] USACholesterol in LDL Calc [Mass/Vol]Ordered By: Kareem Tijerina on 14-31-9383Tcgkqqprwsv in LDL [Mass/Vol]101 mg/dLHigh0-100Mer[facility] Health Lorain HospitalComment on above:LDL ATP III CLASSIFICATIONLDL less than 100 mg/dL OptimalLDL 100-129 mg/dL Near or above bwldayqLSA955-051 mg/dL Borderline highLDL 160-189 mg/dL HighLDL greater than 189 mg/dL Very high Cholesterol in VLDL Calc [Mass/Vol]Ordered By: Kareem Tijerina on 08-13-2023 Cholesterol in VLDL [Mass/Vol]28 mg/dLMercy Health Lorain HospitalHbA1c HPLC (Bld) [Mass fraction]on 94-31-7382PpQ5u (Bld) [Mass fraction]5.6 %[facility] HospitalInsulinon 43-90-2619Hvmmlro76.8 u[iU]/mLNormal2.6-24.9The [facility] Health Physician GroupComment on above:Result Comment: Performed at: - [facility] [id number] Lsat Instructor: Zechariah Paula PhD, Phone: [phone] PERFORMED BY: [place] [address] PATHOLOGIST PONY WORKER LISA COOLEY M.D.Performed By: #### MITOM2, L-K MICRO, ALPHA PHEN, HEMOCHROM, CERULOP, TENA, IGG, SMAB #### [facility] , #### PARVEEN, TSH3 #### [place] [address] USALipid Panelon 84-92-5166VAA Cholesterol,Mgbezyzogd794 mg/dLHigh0-100The [facility] Health Physician GroupComment on above:Result Comment: LDL ATP III CLASSIFICATION LDL less than 100 mg/dL Optimal LDL 100-129 mg/dL Near or above optimal LDL 130-159 mg/dL Borderline high LDL 160-189 mg/dL High LDL greater than 189 mg/dL Very highPerformed By: #### MITOM2, L-K MICRO, ALPHA PHEN, HEMOCHROM, CERULOP, TENA, IGG, SMAB #### [facility] , #### PARVEEN, TSH3 #### [place] [id number] USATriglyceride w/Sebrmw461 mg/dLNormal0-149The [facility] Health Physician GroupComment on above:Result Comment: TRIG ATP III CLASSIFICATION TRIG less than 150 mg/dL Normal TRIG 150-199 mg/dL Borderline high TRIG 200-500 mg/dL High TRIG greater than 500 mg/dL Very high Standard traceable to the Center for Disease Conrtrol and Prevention (CDC) test method.Performed By: #### MITOM2, L-K MICRO, ALPHA PHEN, HEMOCHROM, CERULOP, TENA, IGG, SMAB #### [facility] , #### PARVEEN, TSH3 #### [place] [id number] USAVLDL OUYYTXKDZSF46 mg/dLNormalThe Randolph Health Physician GroupComment on above:Performed By: #### MITOM2, L-K MICRO, ALPHA PHEN, HEMOCHROM, CERULOP, TENA, IGG, SMAB #### [facility] , #### PARVEEN, TSH3 #### [place] [id number] USASerum or plasma high density lipoprotein (HDL) cholesterol measurementOrdered By: Kareem Tijerina on 02-47-7952Fryejxgiaud in HDL [Mass/Vol]32 mg/wBHzozcb52-62GkvkkarnkMercy Health Lorain HospitalComment on above: HDL CHOL ATP-III CLASSIFICATION Cardiovascular RiskHDL > or equal to 60 mg/dL LOWHDL < 40 mg/dL HIGHResult Comment: HDL CHOL ATP-III CLASSIFICATION Cardiovascular Risk HDL > or equal to 60 mg/dL LOW HDL < 40 mg/dL HIGHPerformed By: #### MITOM2, L-K MICRO, ALPHA PHEN, HEMOCHROM, CERULOP, TENA, IGG, SMAB #### [facility] , #### PARVEEN, TSH3 #### [place] [address] USASerum or plasma insulin measurement (units/volume)Ordered By: Kareem Tijerina on 71-07-1125Fklrrok Qn23.8 u[iU]/mL2.6-24.9Mer[facility] Lorain HospitalComment on above:Performed at: [facility] Lab[address] Director: Zechariah Paula PhD, Phone: [phone] or plasma total cholesterol/high density lipoprotein (HDL) cholesterol mass ratOrdered By: Kareem Tijerina on 08-13-2023 Cholesterol.total/Cholesterol in HDL [Mass ratio]5.1 {ratio}Normal<5.0Mer[facility] Health Lorain HospitalComment on above:Result Comment: PERFORMED BY: [place] [address] PATHOLOGIST PONY WORKER LISA COOLEY M.D.Performed By: #### MITOM2, L-K MICRO, ALPHA PHEN, HEMOCHROM, CERULOP, TENA, IGG, SMAB #### [facility] , #### PARVEEN, TSH3 #### [place] [id number] USATriglyceride [Mass/volume] in Serum or PlasmaOrdered By: Kareem Tijerina on 68-48-3379Yywehcjyvmaj [Mass/Vol]144 mg/dL0-149Mer[facility] Lorain HospitalComment on above:TRIG ATP III CLASSIFICATIONTRIG less than 150 mg/dL NormalTRIG 150-199 mg/dL Borderline highTRIG 200-500 mg/dL High TRIG greater than 500 mg/dL Very highStandard traceable to the Center for Disease Conrtrol and Prevention (CDC) test method.Laboratory - Chemistry and Chemistry - challengeon 81-24-7131ZTQ Qn1.138 m[IU]/L0.516-4.130[facility] HospitalNo Panel Informationon 51-90-240579593522-Rsumxrd Vitamin D Total11.0 ng/mLMercy Health Lorain HospitalComment on above:<20 ng/mL Vit D kgpcdvcfe92-<30 ng/mL Vit D aibtgmlonjcu44-835 ng/mL Vit D sufficient>100 ng/mL Potential ToxicitySerum or plasma thyroperoxidase antibody assay (units/volume) on 92-82-5831OPK Ab Qn9 [IU]/mL0-26[facility] Thyroglobulin [Mass/volume] in Serum or Plasmaon 08-12-0181Ckazxtpdivcfm [Mass/Vol]<1.0 [IU]/mL0.0-0.9[facility] HospitalComment on above: Thyroglobulin Antibody measured by Ana Maria CoulterMethodologyIt should be noted that the presence of thyroglobulinantibodies may not be pathogenic nor diagnostic, especiallyat very low levels. The assay manufacturer representative has found thatfour percent of individuals without evidence of thyroiddisease or auto immunity will have positive TgAb levels upto 4 IU/mL.Performed at: [facility] Lab[address] [id number] Director: Zechariah Paula PhD, Phone: [phone] 35-83-0220Vnssoepjcxxqu [id number]#1.00[facility] Office/Clinic Noteon 04-71-2375Lhczrbxhgkffg [id number]#1.00[facility] Office/Clinic [id number]#1.00[facility] Methodist HospitalAlanine aminotransferase [Enzymatic activity/volume] in Serum or PlasmaOrdered By: Lewis Mirza on 16-23-2853VGH [Catalytic activity/Vol]56 U/LHigh7-52[facility] HospitalComment on above:Performed By: #### MITOM2, L-K MICRO, ALPHA PHEN, HEMOCHROM, CERULOP, TENA, IGG, SMAB #### [facility] , #### PARVEEN, TSH3 #### [facility] [address] [place] [address] USAAlbumin [Mass/volume] in Serum or Plasma by Bromocresol green (BCG) dye binding methoOrdered By: Lewis Mirza on 81-19-0070Vebnomc BCG dye [Mass/Vol]4.4 g/dL3.5-5.7FGrand Lake Joint Township District Memorial HospitalAlkaline phosphatase [Enzymatic activity/volume] in Serum or PlasmaOrdered By: Lewis Mirza on 41-59-6044LAZ [Catalytic activity/Vol]58 U/KEniche80-459HfffvudhtMercy Health Lorain HospitalComment on above:Performed By: #### MITOM2, L-K MICRO, ALPHA PHEN, HEMOCHROM, CERULOP, TENA, IGG, SMAB #### [facility] , #### PARVEEN, TSH3 #### [facility] [address] [place] [address] USAAnti-Centromere B Antibodieson 04-79-5285Ndzz-Centromere B Antibodies<0.6Cutoqi2.0-0.9The [facility] Health Physician GroupComment on above:Result Comment: Performed at: [facility] [id number] Lsat Instructor: Zechariah Paula PhD, Phone: [phone] By: #### MITOM2, L-K MICRO, ALPHA PHEN, HEMOCHROM, CERULOP, TENA, IGG, SMAB #### [facility] , #### PARVEEN, TSH3 #### [facility] [address] [place] [address] USAAnti-RNPon 06-42-6252Pwul-RNP0.8Hjfabg1.0-0.9The [facility] Health Physician GroupComment on above:Performed By: #### MITOM2, L-K MICRO, ALPHA PHEN, HEMOCHROM, CERULOP, TENA, IGG, SMAB #### [facility] , #### PARVEEN, TSH3 #### [place] [address] USAAnti-Newberry Antibodieson 73-37-6610Lyrd-Newberry Antibodies <0.0Fnvyyh1.0-0.9The [facility] Physician [facility]it Health NatchezComment on above:Performed By: #### MITOM2, L-K MICRO, ALPHA PHEN, HEMOCHROM, CERULOP, TENA, IGG, SMAB #### [facility] , #### PARVEEN, TSH3 #### [place] [address] USAAnti-dsDNA(DBL)Abon 38-91-7380Edqw-dsDNA(DBL)Zz9Ygefcw6-8 The [facility] Physician GroupComment on above:Result Comment: Negative <5 Equivocal 5 - 9 Positive >9Performed By: #### MITOM2, L-K MICRO, ALPHA PHEN, HEMOCHROM, CERULOP, TENA, IGG, SMAB #### [facility] , #### PARVEEN, TSH3 #### [place] [address] USAAspartate aminotransferase [Enzymatic activity/volume] in Serum or PlasmaOrdered By: Lewis Mirza on 42-34-8785XNN [Catalytic activity/Vol]30 U/VGdsuxt66-76TjeqfmqfdMercy Health Lorain HospitalComment on above: Performed By: #### MITOM2, L-K MICRO, ALPHA PHEN, HEMOCHROM, CERULOP, TENA, IGG, SMAB #### [facility] , #### PARVEEN, TSH3 #### [facility] [address] [place] [address] USAAutomated basophil %Ordered By: Lewis Mirza on 22-24-9002Nmrwzoymg/100 WBC (Bld)0.7 %Normal.[facility] Comment on above:Performed By: #### MITOM2, L-K MICRO, ALPHA PHEN, HEMOCHROM, CERULOP, TENA, IGG, SMAB #### [facility] , #### PARVEEN, TSH3 #### [facility] [address] [place] [address] USAAutomated basophil countOrdered By: Lewis Mirza on 52-35-8646Veufjsfep (Bld) [#/Vol]0.0 10*3/uLNormal0.0-0.2FGrand Lake Joint Township District Memorial HospitalComment on above:Performed By: #### MITOM2, L-K MICRO, ALPHA PHEN, HEMOCHROM, CERULOP, TENA, IGG, SMAB #### [facility] , #### PARVEEN, TSH3 #### [facility] [address] [place] [address] USAAutomated blood monocyte countOrdered By: Lewis Mirza on 45-21-5109Qvbzeeibe (Bld) [#/Vol]0.7 10*3/uLNormal0.0-0.8[facility] HospitalComment on above:Performed By: #### MITOM2, L-K MICRO, ALPHA PHEN, HEMOCHROM, CERULOP, TENA, IGG, SMAB #### [facility] , #### PARVEEN, TSH3 #### [facility] [address] [place] [address] USAAutomated eosinophil %Ordered By: Lewis Mirza on 86-36-5717Axkmfxnbqmk/100 WBC (Bld)2.7 %Normal.[facility] Comment on above:Performed By: #### MITOM2, L-K MICRO, ALPHA PHEN, HEMOCHROM, CERULOP, TENA, IGG, SMAB #### [facility] , #### PARVEEN, TSH3 #### [place] [address] USAAutomated eosinophil countOrdered By: Lewis Mirza on 47-81-0604Efzuyzfxuty (Bld) [#/Vol]0.2 10*3/uLNormal0.0-0.45[facility] HospitalComment on above:Performed By: #### MITOM2, L-K MICRO, ALPHA PHEN, HEMOCHROM, CERULOP, TENA, IGG, SMAB #### [facility] , #### PARVEEN, TSH3 #### [place] [address] USAAutomated erythrocytes count in urine sediment (number/area)Ordered By: Lewis Mirza on 99-53-3467OCT Auto (Urine sed) [#/Area]1-2 [HPF]0-4FGrand Lake Joint Township District Memorial HospitalAutomated leukocytes count in urine sediment (number/area)Ordered By: Lewis Mirza on 62-77-7942MCM Auto (Urine sed) [#/Area]None seen [HPF]0-4FGrand Lake Joint Township District Memorial HospitalAutomated monocyte %Ordered By: Lewis Mirza on 84-74-7381Ujxhvjiwd/100 WBC (Bld)10.7 % Normal.[facility] HospitalComment on above:Performed By: #### MITOM2, L-K MICRO, ALPHA PHEN, HEMOCHROM, CERULOP, TENA, IGG, SMAB #### [facility] , #### PARVEEN, TSH3 #### [place] [address] USAAutomated neutrophil %Ordered By: Lewis Mirza on 44-27-7271Ohawwuumtvv/100 WBC (Bld)53.4 %Normal.[facility] HospitalComment on above:Performed By: #### MITOM2, L-K MICRO, ALPHA PHEN, HEMOCHROM, CERULOP, TENA, IGG, SMAB #### [facility] , #### PARVEEN, TSH3 #### [place] [address] USAAutomated urine color determinationOrdered By: Lewis Mirza on 73-72-8043Mpmkn (U)YellowNormalYellowMercy Health Lorain HospitalComment on above:Order Comment: Reason for Exam Elevated LFTs Reason for Exam FatiguePerformed By: #### MITOM2, L-K MICRO, ALPHA PHEN, HEMOCHROM, CERULOP, TENA, IGG, SMAB #### [facility] , #### PARVEEN, TSH3 #### [facility] [address] [place] [address] USABilirubin Test strip Ql (U)Ordered By: Lewis Mirza on 89-45-0027Mpifwyqbq Ql (U)NegativeNegativeMercy Health Lorain Hospital Bilirubin.total [Mass/volume] in Serum or PlasmaOrdered By: Lewis Mirza on 04-45-9722Bcciqgmxu [Mass/Vol]0.8 mg/dLNormal0.3-1.0[facility] HospitalComment on above:Performed By: #### MITOM2, L-K MICRO, ALPHA PHEN, HEMOCHROM, CERULOP, TENA, IGG, SMAB #### [facility] , #### PARVEEN, TSH3 #### [facility] [address] [place] [address] USAC reactive protein [Mass/volume] in Serum or PlasmaOrdered By: eLwis Mirza on 98-26-4421QMX [Mass/Vol]< 0.5 mg/dL0.0-0.5FGrand Lake Joint Township District Memorial HospitalC-Reactive Proteinon 71-63-8261HQG [Mass/Vol]mg/LNormal 0.0-0.5The Randolph Health Physician GroupComment on above:Performed By: #### MITOM2, L-K MICRO, ALPHA PHEN, HEMOCHROM, CERULOP, TENA, IGG, SMAB #### [facility] , #### PARVEEN, TSH3 #### [facility] [address] [place] [address] USACalcium [Mass/volume] in Serum or PlasmaOrdered By: Lewis Mirza on 28-40-7447Mtkkimt [Mass/Vol]9.4 mg/dLNormal8.6-10.3FGrand Lake Joint Township District Memorial HospitalComment on above:Performed By: #### MITOM2, L-K MICRO, ALPHA PHEN, HEMOCHROM, CERULOP, TENA, IGG, SMAB #### [facility] , #### PARVEEN, TSH3 #### [facility] [address] [place] [address] USACarbon dioxide, total [Moles/volume] in Serum or Plasma Ordered By: Lewis Mirza on 95-03-5524VD8 [Moles/Vol]23.5 mmol/LNormal 21.0-31.0Mer[facility] Lorain HospitalComment on above:Performed By: #### MITOM2, L-K MICRO, ALPHA PHEN, HEMOCHROM, CERULOP, TENA, IGG, SMAB #### [facility] , #### PARVEEN, TSH3 #### [facility] [address] [place] [address] USAChloride [Moles/volume] in Serum or PlasmaOrdered By: Lewis Mirza on 75-91-3668Oinycopq [Moles/Vol]107 mmol/DDmbbdq02-013IadkpratjMercy Health Lorain HospitalComment on above:Performed By: #### MITOM2, L-K MICRO, ALPHA PHEN, HEMOCHROM, CERULOP, TENA, IGG, SMAB #### [facility] , #### PARVEEN, TSH3 #### [facility] [address] [place] [address] USAComplement C3on 60-64-2026Nlrlqnvfys C3161 mg/dLNormal 82-167The [facility] Health Physician GroupComment on above:Result Comment: Performed at: - [facility] [id number] Lsat Instructor: Zechariah Paula PhD, Phone: [phone] By: #### MITOM2, L-K MICRO, ALPHA PHEN, HEMOCHROM, CERULOP, TENA, IGG, SMAB #### [facility] , #### PARVEEN, TSH3 #### [place] [address] USAComplement C4on 87-92-7135Eixqhksjho C424 mg/iKEwssqy34-09 The [facility] Health Physician GroupComment on above:Performed By: #### MITOM2, L-K MICRO, ALPHA PHEN, HEMOCHROM, CERULOP, TENA, IGG, SMAB #### [facility] , #### PARVEEN, TSH3 #### [place] [address] USAComplement Total (CH50)on 32-19-3354Qjppyxrlan Total (CH50)49Normal>41The [facility] Health Physician GroupComment on above:Result Comment: Age Male Female 1 [...] of range values. Performed at: - [facility] [address] [id number] Lsat Instructor: Zechariah Paula PhD, Phone: [phone] PERFORMED BY: [place] [address] PATHOLOGIST PONY WORKER LISA COOLEY M.D.Performed By: #### MITOM2, L-K MICRO, ALPHA PHEN, HEMOCHROM, CERULOP, TENA, IGG, SMAB #### [facility] , #### PARVEEN, TSH3 #### [place] [address] USAComplete Blood Count Auto Diffon 07-09-4360Sibo Corpuscular HGB Conc34.1 g/oVRxtjoa05.5-35.6The [facility] Health Physician GroupComment on above:Performed By: #### MITOM2, L-K MICRO, ALPHA PHEN, HEMOCHROM, CERULOP, TENA, IGG, SMAB #### [facility] , #### PARVEEN, TSH3 #### [facility] [address] [place] [address] USANRBC%0.2 /100{WBC}Normal0-0.5[facility] Comment on above:Performed By: #### MITOM2, L-K MICRO, ALPHA PHEN, HEMOCHROM, CERULOP, TENA, IGG, SMAB #### [facility] , #### PARVEEN, TSH3 #### [place] [address] USAComprehensive Metabolic Panelon 91-62-2842Ckegqdb [Mass/Vol]4.4 g/dLNormal3.5-5.7The [facility] Health Physician GroupComment on above: Performed By: #### MITOM2, L-K MICRO, ALPHA PHEN, HEMOCHROM, CERULOP, TENA, IGG, SMAB #### [facility] , #### PARVEEN, TSH3 #### [place] [address] USAGFR/1.73 sq M.predicted MDRD (S/P/Bld) [Vol rate/Area] mL/min/{1.73_m2}NormalThe Randolph Health Physician GroupComment on above:Performed By: #### MITOM2, L-K MICRO, ALPHA PHEN, HEMOCHROM, CERULOP, TENA, IGG, SMAB #### [facility] , #### PARVEEN, TSH3 #### [place] [address] USACreatine kinase [Enzymatic activity/volume] in Serum or PlasmaOrdered By: Lewis Mirza on 39-25-6556JY [Catalytic activity/Vol]112 U/L Yyeugk66-128LugkavneuMercy Health Lorain HospitalComment on above:Result Comment: PERFORMED BY: [place] [address] PATHOLOGIST PONY WORKER LISA COOLEY M.D.Performed By: #### MITOM2, L-K MICRO, ALPHA PHEN, HEMOCHROM, CERULOP, TENA, IGG, SMAB #### [facility] , #### PARVEEN, TSH3 #### [facility] [address] [place] [address] USACreatinine [Mass/volume] in Serum or PlasmaOrdered By: Lewis Mirza on 35-20-0776Dtnhasehhl [Mass/Vol]0.78 mg/dLNormal0.70-1.30 [facility] Lorain HospitalComment on above:Performed By: #### MITOM2, L-K MICRO, ALPHA PHEN, HEMOCHROM, CERULOP, TENA, IGG, SMAB #### [facility] , #### PARVEEN, TSH3 #### [place] [address] USADNA double strand Ab [Units/volume] in SerumOrdered By: Lewis Mirza on 02-79-0194DGO double strand Ab Qn (S)3 [IU]/mL0-9Mer[facility] Health Lorain HospitalComment on above:Negative <5 Equivocal 5 - 9 Positive >9 Dipstick and Microscopicon 25-00-7536Aqgxfiajlc (U)ClearNormalClearThe Randolph Health Physician GroupComment on above:Order Comment: Reason for Exam Elevated LFTs Reason for Exam FatiguePerformed By: #### MITOM2, L-K MICRO, ALPHA PHEN, HEMOCHROM, CERULOP, TENA, IGG, SMAB #### [facility] , #### PARVEEN, TSH3 #### [facility] [address] [place] [address] USABacteria,UrineNone SeenNormalNone SeenThe Randolph Health Physician GroupComment on above:Order Comment: Reason for Exam Elevated LFTs Reason for Exam FatiguePerformed By: #### MITOM2, L-K MICRO, ALPHA PHEN, HEMOCHROM, CERULOP, TENA, IGG, SMAB #### [facility] , #### PARVEEN, TSH3 #### [facility] [address] [place] [address] USABilirubin,UrineNegativeNormalNegativeThe Randolph Health Physician GroupComment on above:Order Comment: Reason for Exam Elevated LFTs Reason for Exam FatiguePerformed By: #### MITOM2, L-K MICRO, ALPHA PHEN, HEMOCHROM, CERULOP, TENA, IGG, SMAB #### [facility] , #### PARVEEN, TSH3 #### [place] [address] USAGlucose Ql (U)NormalNormalNormalThe Randolph Health Physician GroupComment on above:Order Comment: Reason for Exam Elevated LFTs Reason for Exam FatiguePerformed By: #### MITOM2, L-K MICRO, ALPHA PHEN, HEMOCHROM, CERULOP, TENA, IGG, SMAB #### [facility] , #### PARVEEN, TSH3 #### [place] [address] USAHyaline Casts,UrineNone SeenNormal0-8The [facility] Health Physician GroupComment on above:Order Comment: Reason for Exam Elevated LFTs Reason for Exam FatigueResult Comment: PERFORMED BY: [place] [address] PATHOLOGIST PONY WORKER LISA COOLEY M.D.Performed By: #### MITOM2, L-K MICRO, ALPHA PHEN, HEMOCHROM, CERULOP, TENA, IGG, SMAB #### [facility] , #### PARVEEN, TSH3 #### [place] [address] USAKetones Ql (U)NegativeNormalNegativeAscension Sacred Heart Hospital Emerald Coast Physician GroupComment on above:Order Comment: Reason for Exam Elevated LFTs Reason for Exam FatiguePerformed By: #### MITOM2, L-K MICRO, ALPHA PHEN, HEMOCHROM, CERULOP, TENA, IGG, SMAB #### [facility] , #### PARVEEN, TSH3 #### [place] [address] USALeukocyte esterase Test strip Ql (U)NegativeNormalNegative The [facility] Health Physician GroupComment on above:Order Comment: Reason for Exam Elevated LFTs Reason for Exam FatiguePerformed By: #### MITOM2, L-K MICRO, ALPHA PHEN, HEMOCHROM, CERULOP, TENA, IGG, SMAB #### [facility] , #### PARVEEN, TSH3 #### [place] [address] USANitrite,UrineNegativeNormalNegativeAscension Sacred [facility] Hospital Emer[facility] Coast Physician GroupComment on above:Order Comment: Reason for Exam Elevated LFTs Reason for Exam FatiguePerformed By: #### MITOM2, L-K MICRO, ALPHA PHEN, HEMOCHROM, CERULOP, TENA, IGG, SMAB #### [facility] , #### PARVEEN, TSH3 #### [place] [address] USAOccult Blood,UrineNegativeNormalNegativeAscension Sacred [facility] Hospital Emer[facility] Coast Physician GroupComment on above:Order Comment: Reason for Exam Elevated LFTs Reason for Exam FatiguePerformed By: #### MITOM2, L-K MICRO, ALPHA PHEN, HEMOCHROM, CERULOP, TENA, IGG, SMAB #### [facility] , #### PARVEEN, TSH3 #### [place] [address] USAProtein,UrineNegativeNormalNegativeAscension Sacred [facility] Hospital Emerald Coast Physician GroupComment on above:Order Comment: Reason for Exam Elevated LFTs Reason for Exam FatiguePerformed By: #### MITOM2, L-K MICRO, ALPHA PHEN, HEMOCHROM, CERULOP, TENA, IGG, SMAB #### [facility] , #### PARVEEN, TSH3 #### [facility] [address] [place] [address] USARBC,Lllff9-2Vyuufu8-4Twd [facility] Health Physician GroupComment on above:Order Comment: Reason for Exam Elevated LFTs Reason for Exam FatiguePerformed By: #### MITOM2, L-K MICRO, ALPHA PHEN, HEMOCHROM, CERULOP, TENA, IGG, SMAB #### [facility] , #### PARVEEN, TSH3 #### [facility] [address] [place] [address] USASpecificy [place],Urine1.351Rfapps0.001-1.030[facility] Coast Physician GroupComment on above:Order Comment: Reason for Exam Elevated LFTs Reason for Exam FatiguePerformed By: #### MITOM2, L-K MICRO, ALPHA PHEN, HEMOCHROM, CERULOP, TENA, IGG, SMAB #### [facility] , #### PARVEEN, TSH3 #### [place] [address] USASquamous Epithelial Cell,UrineNone SeenNormal0-2The [facility] Health Physician GroupComment on above:Order Comment: Reason for Exam Elevated LFTs Reason for Exam FatiguePerformed By: #### MITOM2, L-K MICRO, ALPHA PHEN, HEMOCHROM, CERULOP, TENA, IGG, SMAB #### [facility] , #### PARVEEN, TSH3 #### [place] [address] USAUrobilinogen,UrineNormalNormalNormalThe [facility] Health Physician Merit Health NatchezComment on above:Order Comment: Reason for Exam Elevated LFTs Reason for Exam FatiguePerformed By: #### MITOM2, L-K MICRO, ALPHA PHEN, HEMOCHROM, CERULOP, TENA, IGG, SMAB #### [facility] , #### PARVEEN, TSH3 #### [place] [address] USAWBC,UrineNone SeenNormal0-4[facility] Comment on above:Order Comment: Reason for Exam Elevated LFTs Reason for Exam FatiguePerformed By: #### MITOM2, L-K MICRO, ALPHA PHEN, HEMOCHROM, CERULOP, TENA, IGG, SMAB #### [facility] , #### PARVEEN, TSH3 #### [place] [address] USAErythrocyte Sedimentation Rateon 36-84-7014EOF (Bld) [Velocity]14 mm/hNormal0-14The [facility] Health Physician GroupComment on above:Result Comment: PERFORMED BY: [place] [address] PATHOLOGIST PONY WORKER LISA COOLEY M.D.Performed By: #### MITOM2, L-K MICRO, ALPHA PHEN, HEMOCHROM, CERULOP, TENA, IGG, SMAB #### [facility] , #### PARVEEN, TSH3 #### [place] [address] USAErythrocyte distribution width [Ratio] by Automated count Ordered By: Lewis Mirza on 96-92-4398Qoajmyxcxdl distribution width (RBC) [Ratio]13.0 %Fyezak85.0-14.8Mer[facility] Lor[facility] HospitalComment on above: Performed By: #### MITOM2, L-K MICRO, ALPHA PHEN, HEMOCHROM, CERULOP, TENA, IGG, SMAB #### [facility] , #### PARVEEN, TSH3 #### [place] [address] USAErythrocyte sedimentation rate by Photometric method Ordered By: Lewis Mirza on 24-89-7530WQF Photometric method (Bld) [Velocity] 14 mm/hr0-14Mer[facility]ain HospitalErythrocytes [#/volume] in Blood by Automated countOrdered By: Lewis Mirza on 08-42-8443MBW (Bld) [#/Vol]4.85 10*6/uLNormal3.90-5.60[facility] HospitalComment on above: Performed By: #### MITOM2, L-K MICRO, ALPHA PHEN, HEMOCHROM, CERULOP, TENA, IGG, SMAB #### [facility] , #### PARVEEN, TSH3 #### [place] [address] USAFibrillarin Ab [Presence] in SerumOrdered By: Lewis Mirza on 94-33-2583Wjupqijeenz Ab Ql (S)NegativeNegativeMercy Health Lorain HospitalComment on above:This test was developed and its performance characteristicsdetermined by [facility]. It has not been cleared orapproved by the Food and Drug Administration.Performed at: [facility] [address] [place], [place] [id number] Director: Issa Thao MD, Phone: [phone] [Mass/volume] in Serum or PlasmaOrdered By: Lewis Mirza on 22-32-1357Rbjgaiq [Mass/Vol]98 mg/gYJwhznz39-029JikcpupzcMercy Health Lorain HospitalComment on above:ADA recommended reference rangeRandom Glucose Reference [...] #### [facility] , #### PARVEEN, TSH3 #### [facility] [address] [place] [id number] USAHematocrit [Volume Fraction] of Blood by Automated count Ordered By: Lewis Mirza on 17-09-4747Wfziojiwmw (Bld) [Volume fraction]41.7 % Lbbrpy61.8-50.0Mer[facility] Lor[facility] HospitalComment on above:Performed By: #### MITOM2, L-K MICRO, ALPHA PHEN, HEMOCHROM, CERULOP, TENA, IGG, SMAB #### [facility] , #### PARVEEN, TSH3 #### [facility] [address] [place] [address] USAHemoglobin [Mass/volume] in BloodOrdered By: Lewis Mirza on 73-80-8872Psobaagjsm (Bld) [Mass/Vol]14.2 g/nVRebmhc76.0-17.0 [facility] HospitalComment on above:Performed By: #### MITOM2, L-K MICRO, ALPHA PHEN, HEMOCHROM, CERULOP, TENA, IGG, SMAB #### [facility] , #### PARVEEN, TSH3 #### [facility] [address] [place] [address] USAKetones Auto test strip (U) [Mass/Vol]Ordered By: Lewis Mirza on 76-19-5821Lyyoupg (U) [Mass/Vol]NegativeNegativeMercy Health Lorain HospitalLaboratory - Serology - non-microOrdered By: Lewis Mirza on 37-30-1669OGP-70 extractable nuclear Ab IA Qn (S)<0.2 AI0.0-0.9[facility] HospitalLaboratory - UrinalysisOrdered By: Lewis Mirza on 68-06-2253Ucpboiv casts LM Ql (Urine sed)None seen [LPF]0-8[facility] HospitalLeukocytes [#/volume] corrected for nucleated erythrocytes in Blood by Automated counOrdered By: Lewis Mirza on 85-84-3197AKL corrected for nucl RBC Auto (Bld) [#/Vol]6.4 10*3/uL4.1-10.5FGrand Lake Joint Township District Memorial Hospital Leukocytes [#/volume] in Blood by Automated countOrdered By: Lewis Mirza on 29-03-8077SNQ (Bld) [#/Vol]6.4 10*3/uLNormal4.1-10.5FGrand Lake Joint Township District Memorial HospitalComment on above:Performed By: #### MITOM2, L-K MICRO, ALPHA PHEN, HEMOCHROM, CERULOP, TENA, IGG, SMAB #### [facility] , #### PARVEEN, TSH3 #### [facility] [address] [place] [address] USALymphocytes [#/volume] in Blood by Automated countOrdered By: Lewis Mirza on 49-52-5835Hyxnsnmszel (Bld) [#/Vol]2.1 10*3/uLNormal 1.00-4.8[facility] HospitalComment on above:Performed By: #### MITOM2, L-K MICRO, ALPHA PHEN, HEMOCHROM, CERULOP, TENA, IGG, SMAB #### [facility] , #### PARVEEN, TSH3 #### [place] [address] USALymphocytes/100 leukocytes in Blood by Automated count Ordered By: Lewis Mirza on 73-57-9302Ceqaydsgowb/100 WBC (Bld)32.5 %Normal. [facility] HospitalComment on above:Performed By: #### MITOM2, L-K MICRO, ALPHA PHEN, HEMOCHROM, CERULOP, TENA, IGG, SMAB #### [facility] , #### PARVEEN, TSH3 #### [address] [Entitic mass] by Automated countOrdered By: Lewis Mirza on 14-66-2238YSX (RBC) [Entitic mass]29.3 tiPvhwpx68.5-35.2FGrand Lake Joint Township District Memorial HospitalComment on above:Performed By: #### MITOM2, L-K MICRO, ALPHA PHEN, HEMOCHROM, CERULOP, TENA, IGG, SMAB #### [facility] , #### PARVEEN, TSH3 #### [address] Auto (RBC) [Mass/Vol]Ordered By: Lewis Mirza on 88-14-5659AUNT (RBC) [Mass/Vol]34.1 g/dL32.5-35.6FGrand Lake Joint Township District Memorial HospitalMCV [Entitic volume] by Automated countOrdered By: Lewis Mirza on 73-83-8828KZW (RBC) [Entitic vol]86.0 zQKyzsrt22.5-101Mer[facility] HospitalComment on above:Performed By: #### MITOM2, L-K MICRO, ALPHA PHEN, HEMOCHROM, CERULOP, TENA, IGG, SMAB #### [facility] , #### PARVEEN, TSH3 #### [facility] [address] [place] [address] USANeutrophils [#/volume] in Blood by Automated countOrdered By: Lewis Mirza on 70-69-9360Dipbvkbxjis (Bld) [#/Vol]3.4 10*3/uLNormal 1.8-7.7FGrand Lake Joint Township District Memorial HospitalComment on above:Performed By: #### MITOM2, L-K MICRO, ALPHA PHEN, HEMOCHROM, CERULOP, TENA, IGG, SMAB #### [facility] , #### PARVEEN, TSH3 #### [facility] [address] [place] [address] USANitrite Test strip Ql (U)Ordered By: Lewis Mirza on 25-31-4730Qksuanq Ql (U)NegativeNegativeMercy Health Lorain HospitalNo Panel InformationOrdered By: Lewis Mirza on 61-88-6880Cpqmxrlzx GFR (CKD-EPI) > 60.0 mL/MinMercy Health Lorain HospitalPharmacy Creatinine Clearance (Chem/[facility] HospitalRNP Antibody0.6 AI0.0-0.9[facility] Hospitalerology CommentsN/[facility] Total Complement (CH50)49 U/mL>41Mer[facility] HospitalComment on above:Age Male Female 1 - 30 [...] determine out of range values.Performed at: - [facility] [address] [id number] Director: eZchariah Paula PhD, Phone: [phone] erythrocytes [Presence] in Blood by Automated countOrdered By: Lewis Mirza on 21-35-6143Rseqxgxdu RBC Auto Ql (Bld)0.2 /100{WBC}0-0.5FGrand Lake Joint Township District Memorial HospitalPM-SCL Antibodieson 06-98-8739OLJ PM-Scl Antibody<20Normal<20The [facility] Health Physician GroupComment on above:Result Comment: This test was developed and its performance characteristics determined by [facility]. It has not been cleared or approved by the Food and Drug Administration. Negative: <20 Weak Positive: 20 - 39 Moderate Positive: 40 - 80 Strong Positive: >80 Performed at: [facility] [address] [place], [place] [id number] Lsat Instructor: Issa Thao MD, Phone: [phone] By: #### MITOM2, L-K MICRO, ALPHA PHEN, HEMOCHROM, CERULOP, TENA, IGG, SMAB #### [facility] , #### PARVEEN, TSH3 #### [place] [address] USAPM-Scl antibody assay by immunodiffusionOrdered By: Lewis Mirza on 85-29-0052MS-SCL extractable nuclear Ab Immune diff (S) [Mass/Vol] <20 Units<20[facility] HospitalComment on above:This test was developed and its performance characteristicsdetermined by [facility]. It has not been cleared orapproved by the Food and Drug Administration. Negative: <20 Weak Positive: 20 - 39 Moderate Positive: 40 - 80 Strong Positive: >80Performed at: [facility] [place], [place] [id number] Director: Issa Thao MD, Phone: [phone] mean volume [Entitic volume] in Blood by Automated countOrdered By: Lewis Mirza on 05-19-2023 Platelet mean volume (Bld) [Entitic vol]9.2 fLNormal6.6-10.1FGrand Lake Joint Township District Memorial HospitalComment on above:Performed By: #### MITOM2, L-K MICRO, ALPHA PHEN, HEMOCHROM, CERULOP, TENA, IGG, SMAB #### [facility] , #### PARVEEN, TSH3 #### [address] [address] USAPlatelets [#/volume] in Blood by Automated countOrdered By: Lewis Mirza on 99-66-7065Tqqmyxpcb (Bld) [#/Vol]254 10*3/mLQfhtwr294-601 [facility] HospitalComment on above:Performed By: #### MITOM2, L-K MICRO, ALPHA PHEN, HEMOCHROM, CERULOP, TENA, IGG, SMAB #### [facility] , #### PARVEEN, TSH3 #### [place] [address] USAPotassium [Moles/volume] in Serum or PlasmaOrdered By: Lewis Mirza on 34-39-7210Isbmlnnlg [Moles/Vol]3.8 mmol/LNormal3.5-5.1 [facility] HospitalComment on above:Performed By: #### MITOM2, L-K MICRO, ALPHA PHEN, HEMOCHROM, CERULOP, TENA, IGG, SMAB #### [facility] , #### PARVEEN, TSH3 #### [facility] [address] [place] [address] USAProtein Auto test strip (U) [Mass/Vol]Ordered By: Lewis Mirza on 03-24-4205Pyitslx (U) [Mass/Vol]NegativeNegativeMercy Health Lorain HospitalProtein [Mass/volume] in Serum or PlasmaOrdered By: Lewis Mirza on 14-24-3092Mxmruqn [Mass/Vol]7.1 g/dLNormal6.4-8.9[facility] HospitalComment on above:Performed By: #### MITOM2, L-K MICRO, ALPHA PHEN, HEMOCHROM, CERULOP, TENA, IGG, SMAB #### [facility] , #### PARVEEN, TSH3 #### [facility] [address] [place] [address] USARNA Polymerase IIion 06-81-8473HYG Polymerase IIi<20Normal <20The [facility] Health Physician GroupComment on above:Result Comment: Negative: <20 Weak Positive: 20 - 39 Moderate Positive: 40 - 80 Strong Positive: >80 Performed at: [email or web address] [address] [place] [id number] Lsat Instructor: Issa Thao MD, Phone: [phone] PERFORMED BY: [place] [address] PATHOLOGIST PONY WORKER LISA COOLEY M.D.Performed By: #### MITOM2, L-K MICRO, ALPHA PHEN, HEMOCHROM, CERULOP, TENA, IGG, SMAB #### [facility] , #### PAVREEN, TSH3 #### [place] [address] USARNA polymerase III IgG Ab [Units/volume] in Serum or Plasma by ImmunoassayOrdered By: Lewis Mirza on 89-74-9804MQX polymerase III IgG IA Qn<20 Units<20[facility] HospitalComment on above:Negative: <20 Weak Positive: 20 - 39 Moderate Positive: 40 - 80 Strong Positive: >80Performedat: [facility] [address] [place], [place] [id number] Director: Issa Thao MD, Phone: [phone] 70 Antibodieson 97-48-1914Mejblqjnbif 70 Antibodies<0.5Usxtrz0.0-0.9The [facility] Health Physician GroupComment on above:Performed By: #### MITOM2, L-K MICRO, ALPHA PHEN, HEMOCHROM, CERULOP, TENA, IGG, SMAB #### [facility] , #### PARVEEN, TSH3 #### [facility] [address] [place] [address] USASerum Newberry extractable nuclear antigen (ANDREE) antibody assay (units/volume)Ordered By: Lewis Mirza on 60-63-2172Ybshv extractable nuclear Ab Qn (S)<0.2 AI0.0-0.9[facility] Orrville Hospitalerum centromere protein B antibody assay (units/volume)Ordered By: Lewis Mirza on 05-19-2023 Centromere protein B Ab Qn (S)<0.2 AI0.0-0.9[facility] Comment on above:Performed at: [facility] [id number] Director: Zechariah Paula PhD, Phone: [phone] globulin measurement by calculation (mass/volume)Ordered By: Lewis Mirza on 05-19-2023 Globulin (S) [Mass/Vol]2.7 g/dLNormLicking Memorial HospitalComment on above:Performed By: #### MITOM2, L-K MICRO, ALPHA PHEN, HEMOCHROM, CERULOP, TENA, IGG, SMAB #### [facility] , #### PARVEEN, TSH3 #### [facility] [address] [place] [address] USASerum or plasma albumin/globulin mass ratioOrdered By: Lewis Mirza on 99-56-6961Xlhoybk/Globulin [Mass ratio]1.6 {ratio}Normal [facility] HospitalComment on above:Performed By: #### MITOM2, L-K MICRO, ALPHA PHEN, HEMOCHROM, CERULOP, TENA, IGG, SMAB #### [facility] , #### PARVEEN, TSH3 #### [facility] [address] [place] [address] USASerum or plasma anion gap determinationOrdered By: Lewis Mirza on 91-37-8312Liiqz gap [Moles/Vol]14.3 mmol/LNormal6.0-15.0[facility] HospitalComment on above:Performed By: #### MITOM2, L-K MICRO, ALPHA PHEN, HEMOCHROM, CERULOP, TENA, IGG, SMAB #### [facility] , #### PARVEEN, TSH3 #### [facility] [address] [place] [address] USASerum or plasma complement C3 measurement (mass/volume) Ordered By: Lewis Mirza on 55-11-0608Pmpyumtnwu C3 [Mass/Vol]161 mg/qZ48-244 [facility] HospitalComment on above:Performed at: [facility] [address] [id number] Director: Zechariah Paula PhD, Phone: [phone] or plasma complement C4 measurement (mass/volume)Ordered By: Lewis Mirza on 04-77-3296Rrwxsyfsmj C4 [Mass/Vol]24 mg/sZ36-54KaqsjattdAultman Orrville Hospitalodium [Moles/volume] in Serum or PlasmaOrdered By: Lewis Mirza on 82-77-6642Pgolzw [Moles/Vol]141 mmol/NDfjvah465-438PzitgacwvMercy Health Lorain HospitalComment on above:Performed By: #### MITOM2, L-K MICRO, ALPHA PHEN, HEMOCHROM, CERULOP, TENA, IGG, SMAB #### [facility] , #### PARVEEN, TSH3 #### [facility] [address] [place] [address] USASpecific gravity Auto test strip (U) [Rel density]Ordered By: Lewis Mirza on 72-16-9406Nwcttksk gravity (U) [Rel density]1.023 1.001-1.030[facility] Orrville Hospitalquamous epithelial cells detection in urine sediment by light microscopyOrdered By: Lewis Mirza on 05-19-2023 Epithelial cells.squamous LM Ql (Urine sed)None seen [HPF]0-2FGrand Lake Joint Township District Memorial HospitalTh-To Ab [Units/volume] in Serum by Line blotOrdered By: Lewis Mirza on [id number]-To Ab Line blot Qn (S)NegativeNegativeMercy Health Lorain HospitalComment on above:This test was developed and its performance characteristicsdetermined by [employer]. It has not been cleared orapproved by the Food and Drug Administration.Performed at: [facility] [id number] [place], [place] [id number] Director: Issa Thao MD, Phone: [phone]/To Antibodyon [id number]/To AntibodyNegativeNormalNegativeThe Randolph Health Physician GroupComment on above:Result Comment: This test was developed and its performance characteristics determined by [employer]. It has not been cleared or approved by the Food and Drug Administration. Performed at: [employer] [address] [place], [place] [id number] Lsat Instructor: Issa Thao MD, Phone: [phone] By: #### MITOM2, L-K MICRO, ALPHA PHEN, HEMOCHROM, CERULOP, TENA, IGG, SMAB #### [facility] , #### PARVEEN, TSH3 #### [place] [address] USAThyrotropin [Units/volume] in Serum or PlasmaOrdered By: Lewis Mirza on 24-88-1869BAF Qn1.01 m[IU]/LNormal0.45-5.33Mer[facility] Lorain HospitalComment on above:Result Comment: PERFORMED BY: [place] [address] PATHOLOGIST PONY WORKER LISA COOLEY M.D.Performed By: #### MITOM2, L-K MICRO, ALPHA PHEN, HEMOCHROM, CERULOP, TENA, IGG, SMAB #### [facility] , #### PARVEEN, TSH3 #### [place] [address] USAU3 Rnpon 38-34-1678P9 RnpNegativeNormalNegativeThe [facility] Health Physician GroupComment on above:Result Comment: This test was developed and its performance characteristics determined by [facility]. It has not been cleared or approved by the Food and Drug Administration. Performed at: [facility] [address] [id number] Lsat Instructor: Issa Thao MD, Phone: [phone] PERFORMED BY: [place] [address] PATHOLOGIST PONY WORKER LISA COOLEY M.D.Performed By: #### MITOM2, L-K MICRO, ALPHA PHEN, HEMOCHROM, CERULOP, TENA, IGG, SMAB #### [facility] , #### PARVEEN, TSH3 #### [place] [address] USAUrea nitrogen [Mass/volume] in Serum or PlasmaOrdered By: Lewis Mirza on 13-26-1467Snvt nitrogen [Mass/Vol]10 mg/dLNormal7-25Mer[facility] Lorain HospitalComment on above:Performed By: #### MITOM2, L-K MICRO, ALPHA PHEN, HEMOCHROM, CERULOP, TENA, IGG, SMAB #### [facility] , #### PARVEEN, TSH3 #### [facility] [address] [place] [address] USAUrine bacteria detection by automated methodOrdered By: Lewis Mirza on 20-87-2263Vdhvtmat Auto Ql (U)None seenNone SeenMercy Health Lorain HospitalUrine clarity by refractometry automatedOrdered By: Lewis Mirza on 64-14-9516Gcbdzow Refractometry automated (U)ClearClear [facility] Lorain HospitalUrine glucose measurement by automated test strip (mass/volume)Ordered By: Lewis Mirza on 66-20-6044Uiiqebh Auto test strip (U) [Mass/Vol]Normal mg/dLOhioHealth Grove City Methodist HospitalUrine hemoglobin detection by automated test stripOrdered By: Lewis Mirza on 48-32-1915Kpppnbenvu Auto test strip Ql (U)NegativeNegMount St. Mary HospitalUrine leukocyte esterase detection by automated test stripOrdered By: Lewis Mirza on 59-67-9147Pgfnhtaal esterase Auto test strip Ql (U) NegativeNegMount St. Mary HospitalUrine pH measurement by automated test stripOrdered By: Lewis Mirza on 27-82-9809jA (U)5.5 [pH]Normal 5.0-9.0Mer[facility] Health Lorain HospitalComment on above:Order Comment: Reason for Exam Elevated LFTs Reason for Exam FatiguePerformed By: #### MITOM2, L-K MICRO, ALPHA PHEN, HEMOCHROM, CERULOP, TENA, IGG, SMAB #### [facility] , #### PARVEEN, TSH3 #### [facility] [address] [place] [address] USAUrobilinogen Auto test strip (U) [Mass/Vol]Ordered By: Lewis Mirza on 07-57-9930Ryxlpvzceyfa (U) [Mass/Vol]Normal mg/dLPeoples HospitalXR knee BI 2Von 65-69-0019PO knee BI 2V [facility] [place] [address] XRay Report Signed Patient: Jet Duncan MR#: [id number] 0 : 2005 Acct:[id number] Age/Sex: 17 / M ADM Date: 05/19/23 Loc: ICXD Room: Type: [facility] Attending Dr: Lewis Mirza MD Copies to: Lewis Mirza MD Ordering Provider: Lewis Mirza MD Date of Service: 05/19/23 XR/XR knee BI 2V: PAIN ([id number]) XR/XR thoracic spine 3V*: PAIN THORACIC SPINE [...] Davila Jr., D.O.05/19/2023 2:25 PM Dictation Location: [place] [address] Transcribed By: [facility] 05/19/23 1425 Dictated By: Ki Davila Jr, DO 05/19/23 1424 Signed By: 05/19/23 [facility] Physician GroupMiscellaneouson 04-30-2023 [id number]#1.00OTGTIFFCleveland Clinic Fairview HospitalOutside Recordson 27-07-5875Rzagzgd Records [id number]#1.00OTGTIFFRegency Hospital Cleveland West Antinuclear Antibodieson 54-56-7418Hwagqerimen Abs, IFAPositiveCritically abnormal.The [facility] Health Physician GroupComment on above:Order Comment: Reason for Exam Elevated LFTsResult Comment: Negative <1:80 Borderline 1:80 Positive >1:80Performed By: #### MITOM2, L-K MICRO, ALPHA PHEN, HEMOCHROM, CERULOP, TENA, IGG, SMAB #### [facility] , #### PARVEEN, TSH3 #### [facility] [address] [place] [address] USAHomogeneous Pattern1:160High.[facility] Comment on above:Order Comment: Reason for Exam Elevated LFTsResult Comment: ICAP nomenclature: AC-1Performed By: #### MITOM2, L-K MICRO, ALPHA PHEN, HEMOCHROM, CERULOP, TENA, IGG, SMAB #### [facility] , #### PARVEEN, TSH3 #### [facility] [address] [place] [id number] USANote 1Normal.The [facility] Health Physician GroupComment on above:Order Comment: Reason for Exam Elevated LFTsResult Comment: Pattern Potential Disease Association Homogeneous Systemic Lupus Erythematosus, Drug Induced Systemic Lupus Erythematosus, Chronic Autoimmune hepatitis, Juvenile Idiopathic Arthritis Speckled Sjogren Syndrome, Systemic Lupus Erythematosus, Subacute Cutaneous Lupus, Lupus, Congenital Heart Block, Mixed Connective Tissue Disease, Scleroderma-diffuse, Scleroderma-Autoimmune Myositis Overlap Syndrome, Systemic Lupus Ltcsndjjuffkw-Jrcbrphgfpk-Fvtjthkdho Myositis Overlap Syndrome, Systemic Autoimmune Rheumatic Disease, [...] Linear Scleroderma, Antiphospholipid Syndrome Performed at: - [facility] [id number] Lsat Instructor: Zechariah Paula PhD, Phone: [phone] By: #### MITOM2, L-K MICRO, ALPHA PHEN, HEMOCHROM, CERULOP, TENA, IGG, SMAB #### [facility] , #### PARVEEN, TSH3 #### [facility] [address] [place] [address] USAActin smooth muscle IgG Ab [Units/volume] in SerumOrdered By: Imad Asaad on 45-70-2529Tioog smooth muscle IgG Qn (S)13 Units0-19Mer[facility] Lorain HospitalComment on above:Negative 0 - 19 Weak positive 20 - 30 Moderate to strong positive >30 Actin Antibodies are foundin 52-85% of patients with autoimmune hepatitis or chronic active hepatitis and in 22% of patients w ith primary biliary cirrhosis.Thnva-4-Pfcbitpxuzh Phenotypeon 58-69-2151Axxio 1 Anti-Swteapd736 mg/pOLslmva62-554Vbl [facility] Health Physician GroupComment on above: Order Comment: Reason for Exam Elevated LFTsPerformed By: #### MITOM2, L-K MICRO, ALPHA PHEN, HEMOCHROM, CERULOP, TENA, IGG, SMAB #### [facility] , #### PARVEEN, TSH3 #### [facility] [address] [place] [address] USAPhenotype (P1)MMNormal.[facility] Comment on above:Order Comment: Reason [...] used to confirm phenotype. Performed at: - Lab[address] [id number] Lsat Instructor: Zechariah Paula PhD, Phone: [phone] Performed at: [facility] Lab[address] [id number] Lsat Instructor: Aston Omalley MD, Phone: [phone] By: #### MITOM2, L- K MICRO, ALPHA PHEN, HEMOCHROM, CERULOP, TENA, IGG, SMAB #### [facility] , #### PARVEEN, TSH3 #### [facility] [address] [place] [address] USABlood or tissue HFE gene mutations identification by molecular genetics methodOrdered By: Wilver Felton on 41-49-7260MCC gene targeted mutation analysis Molgen Nom (Bld/Tiss)See comment.[facility] Lorain HospitalComment on above:Result:c.845G>A (p.Lka440Dci) - Not Detectedc.187C>G (p.Urj20Usd) - Not Detectedc.193A>T (p.Qta26Yil) - Not DetectedNot associated with increased risk [...] recommended for patientswho are homozygous for c.845G>A (p.Krq552Ccx) and have yetto experience clinical symptoms.Comments:The most common HFE variants associated with hereditaryhemochromatosis are c.845G>A (p.Qfj720Wql), c.187C>G(p.Wyn41Xwq), c.193A>T (p.Wpv26Ddw). While patientshomozygous for c.845G>A (p.Nnq129Yze) are the most likelyto present clinical symptoms, less than 10% developclinically significant iron overload with tissue and organdamage.Genetic counseling is recommended to discuss the potentialclinical implications of positive results, as well asrecommendations for testing family members.Genetic Coordinators are available for health careproviders to discuss results at [phone]).Test Details:Three variants analyzed:c.845G>A (p.Jyk580Dur), commonly referred to as C282Yc.187C>G (p.Lmj02Vuq), commonly referred to as H63Dc.193A>T (p.Tih91Dda), commonly referred to ukG85NMrtbwuv/Limitations:DNA Analysis of the HFE gene (NM_000410.4) was [...] was developed and its performancecharacteristics determined by [facility]. It has not beencleared or approved by the Food and Drug Administration.References:Paul BR, Joseph PC, Mohini KV, Christiano LW, Erick ;[place] [employer] the Study [employer] Liver Diseases.Diagnosis and management of hemochromatosis: 2011 practiceguideline by the [place] Association for the Study ofLiver Diseases. Hepatology. 2010;54(1):328-43. doi:10.1002/hep.77050. PMID: 56148042; PMCID: [id number].Surekha G, Shorty P, Hailey HENDERSON, Tor H, Corrine O,Simón S, Guerrero I, Alireza M, Holly S. [facility] best practiceguidelines for the molecular genetic diagnosis ofhereditary hemochromatosis (HH). Eur J Hum Meliza. 2016Ap r;24(4):479-95. doi: 10.1038/ejhg.2015.128. Epub 2014. PMID: 90644467; PMCID: PGB7411675.Ceruloplasminon 83-90-0523Bdhsqowyaqzkt56.7 mg/dLNormal 16.0-31.0[facility] Physician GroupComment on above:Order Comment: Reason for Exam Elevated LFTsResult Comment: Performed at: [facility] [address] [place], [place] [id number] Lsat Instructor: Zechariah Paula PhD, Phone: [phone] PERFORMED BY: [place] [address] PATHOLOGIST PONY WORKER LISA COOLEY M.D.Performed By: #### MITOM2, L-K MICRO, ALPHA PHEN, HEMOCHROM, CERULOP, TENA, IGG, SMAB #### [facility] , #### PARVEEN, TSH3 #### [facility] [address] [place] [address] USAFerritin [Mass/volume] in Serum or PlasmaOrdered By: Wilver Felton on 20-10-1047Zignowkc [Mass/Vol]59.0 ng/oCCdijvs28.9-336.2FGrand Lake Joint Township District Memorial HospitalComment on above:Order Comment: Reason for Exam Elevated LFTs Reason for Exam FatiguePerformed By: #### MITOM2, L-K MICRO, ALPHA PHEN, HEMOCHROM, CERULOP, TENA, IGG, SMAB #### [facility] , #### PARVEEN, TSH3 #### [facility] [address] [place], [place] [address] USAHereditary Hemochromatosis,DNAon 78-93-3427Yqzdegypnn HemochromatosisNormal.The [facility] Physician GroupComment on above:Order Comment: Reason for Exam Elevated LFTsResult Comment: Result: c.845G>A (p.Nzr832Gtm) - Not Detected c.187C>G (p.Zno76Tcn) - Not Detected c.193A>T (p.Upq95Umw) - Not Detected Not associated with increased [...] for patients who are homozygous for c.845G>A (p.Czv454Jye) and have yet to experience clinical symptoms. Comments: The most common HFE variants associated with hereditary hemochromatosis are c.845G>A (p.Ccg068Yzn), c.187C>G (p.Spe56Qmh), c.193A>T (p.Yys26Xtk). While patients homozygous for c.845G>A (p.Qax316Nay) are the most likely to present clinical symptoms, less than 10% develop clinically significant iron overload with tissue and organ damage. Genetic counseling is recommended to discuss the potential clinical implications of positive results, as well as recommendations for testing family members. Genetic Coordinators are available for health care providers to discuss results at [phone] Test Details: Three variants analyzed: c.845G>A (p.Imv095Szb), commonly referred to as C282Y c.187C>G (p.Ffv89Cqa), commonly referred to as H63D c.193A>T (p.Qay27Zfa), commonly referred to as S65C Methods/Limitations: DNA [...] developed and its performance characteristics determined by [employer]. It has not been cleared or approved by the Food and Drug Administration. References: Paul BR, Joseph PC, Mohini KV, Christiano LW, Erick ; [place] [employer] for the Study of Liver Diseases. Diagnosis and management of hemochromatosis: 2011 practice guideline by the [place] [employer] for the Study of Liver Diseases. Hepatology. 2011 Julius;54(1):328-43. doi: 10.1002/hep.54366. PMID: 93553416; PMCID: [id number]. Surekha G, Shorty P, Hailey HENDERSON, Tor H, Corrine O, Simón S, Guerrero I, Alireza M, Holly S. [facility] best practice guidelines for the molecular genetic diagnosis of hereditary hemochromatosis (HH). Eur J Hum Meliza. 2016 Apr;24(4):479-95. doi: 10.1038/ejhg.2015.128. Epub 2014Nov 15. PMID: 09393992; PMCID: GLF5629486.Performed By: #### MITOM2, L-K MICRO, ALPHA PHEN, HEMOCHROM, CERULOP, TENA, IGG, SMAB #### [facility] , #### PARVEEN, TSH3 #### [facility] [address] [place] [address] USAReviewed by:Normal.The [facility] Health Physician GroupComment on above:Order Comment: Reason for Exam Elevated LFTsResult Comment: Technical Component performed at [facility] Professional Component performed by: Daniella Birch, Ph.D., FACMG Director, Molecular Genetics [address] [place] [address] Performed at: - [facility] [address] [place], [place] [id number] Lsat Instructor: Dinesh Davis [facility], Phone: [phone] PERFORMED BY: [place] [address] PATHOLOGIST PONY WORKER LISA COOLEY M.D.Performed By: #### MITOM2, L-K MICRO, ALPHA PHEN, HEMOCHROM, CERULOP, TENA, IGG, SMAB #### [facility] , #### PARVEEN, TSH3 #### [facility] [address] [place] [address] USAIgG [Mass/volume] in Serum or PlasmaOrdered By: Wilver Felton on 67-58-8447ZxW [Mass/Vol]1272 mg/mH636-8308Jslpnnrsp [facility] Comment on above:Performed at: [facility] [place], [place] [id number] Director: Zechariah Paula PhD, Phone: [phone] G on 56-40-4996Zwmmcmofzdloqg G1272 mg/oXYaqfkq607-8897Auc [facility] Health Physician GroupComment on above:Order Comment: Reason for Exam Elevated LFTsResult Comment: Performed at: [address] [id number] Lsat Instructor: Zechariah Paula PhD, Phone: [phone] By: #### MITOM2, L-K MICRO, ALPHA PHEN, HEMOCHROM, CERULOP, TENA, IGG, SMAB #### [facility] , #### PARVEEN, TSH3 #### [facility] [address] [place] [address] USALiver-Kidney Microsomal Abon 92-97-9888Hbrtt-Kidney Microsomal Ab1.4Gzknqj9.0-20.0The [facility] Physician GroupComment on above: Order Comment: Reason for Exam Elevated LFTsResult Comment: Negative 0.0 - 20.0 Equivocal 20.1 - 24.9 Positive >24.9 LKM type 1 antibodies are detected in patients with autoimmune hepatitis type 2 and in up to 8% of patients with chronic HCV infection. Performed at: [address] [id number] Lsat Instructor: Zechariah Paula PhD, Phone: [phone] By: #### MITOM2, L-K MICRO, ALPHA PHEN, HEMOCHROM, CERULOP, TENA, IGG, SMAB #### [facility] , #### PARVEEN, TSH3 #### [facility] [address] [place] [address] USAMitochondrial (M2) Antibodyon 77-54-9148Xpunwsoevifyj (M2) Antibody<20.1Pkjryb5.0-20.0The [facility] Physician GroupComment on above:Order Comment: Reason for Exam Elevated LFTsResult Comment: Negative 0.0 - 20.0 Equivocal 20.1 - 24.9 Positive >24.9 Mitochondrial (M2) Antibodies are found in 90-96% of patients with primary biliary cirrhosis.Performed By: #### MITOM2, L-K MICRO, ALPHA PHEN, HEMOCHROM, CERULOP, TENA, IGG, SMAB #### [facility] , #### PARVEEN, TSH3 #### [address]No Panel InformationOrdered By: Wilver Felton on 04-21-2023 Anti-Nuclear Antibody Comment 2See comment.[facility] Comment on above:Pattern Potential Disease Association Homogeneous Systemic Lupus Erythematosus, Drug Induced Systemic Lupus Erythematosus, Chronic Autoimmune hepatitis, Juvenile Idiopathic Arthritis Speckled Sjogren Syndrome, Systemic Lupus Erythematosus, Subacute Cutaneous Lupus, Lupus, Congenital Heart Block, Mixed Connective Tissue Disease, Scleroderma-diffuse, Scleroderma- Autoimmune Myositis Overlap Syndrome, Systemic Lupus Temzhthrglluk-Tidhmscrrlf-Dpnshberwi Myositis Overlap Syndrome, Systemic Autoimmune Rheumatic Disease, [...] Cytopenias, Linear Scleroderma, Antiphospholipid Syndrome Performed at: [facility] [address] [id number] Director: Zechariah Paula PhD, Phone: [phone] NoteSee comment.[facility] HospitalComment on above:Technical Component performed at [facility] RTPProfessional Component performed by:Daniella Birch, Ph.D., FACMGDirector, Molecular Jfhiuesq[address] [place] [address] [place] [address]Mybqgogve at: [facility] LQW[address] [place], [place] [id number] Director: Dinesh Davis [facility], Phone: [phone] vwilh-1-uhrlsvavbjr measurementOrdered By: Imad Asaad on 95-50-6694Wiqln 1 antitrypsin [Mass/Vol]139 mg/iT93-476AmgmetcbkAultman Orrville Hospitalerum homogeneous pattern antinuclear antibody (TENA) titerOrdered By: Imad Asaad on 09-08-6755Dpimujylpz nuclear Ab pattern (S) [Titer]1:160. [facility] HospitalComment on above:ICAP nomenclature: AC-1Serum mitochondria M2 IgG antibody assay (units/volume)Ordered By: Imad Asaad on 97-54-3948Necmasbkjeez M2 IgG Qn (S)<20.0 Units0.0-20.0[facility] HospitalComment on above:Negative 0.0 - 20.0 Equivocal 20.1 - 24.9 Positive >24.9Mitochondrial (M2) Antibodies are found in 90-96% ofpatients with primary biliary cirrhosis.Serum nuclear antibody titerOrdered By: Wilver Jackson on 19-93-4411Yhjxffe Ab (S) [Titer]Positive.[facility] Comment on above:Negative <1:80 Borderline 1:80 Positive >1:80Serum or plasma alpha 1 antitrypsin phenotyping identification by immunofixationOrdered By: Wilver Felton on 32-65-9853Mezzc 1 antitrypsin phenotyping Immunofixation NomMm. [facility] HospitalComment on above:Phenotype Population A-1-AT Concentration* Incidence % [...] reference. Ranges used to confirm phenotype.Performed at: [employer] [id number] Director: Zechariah Paula PhD, Phone: [phone] at: [facility] [id number] Director: Aston Omalley MD, Phone: [phone] or plasma ceruloplasmin measurement (mass/volume)Ordered By: Wilver Felton on 28-67-6676Tamozlajrezkb [Mass/Vol]23.7 mg/dL16.0-31.0[facility] HospitalComment on above:Performed at: [facility] [id number] [place], [place] [id number] Director: Zechariah Paula PhD, Phone: [phone] or plasma lipoprotein a measurement (moles/volume)Ordered By: Wilver Felton on 94-82-6652Ieibrrvxzfi a [Moles/Vol]1.5 Units0.0-20.0[facility] HospitalComment on above:Negative 0.0 - 20.0 Equivocal 20.1 - 24.9 Positive >24.9LKM type 1 antibodies are detected in patients withautoimmune hepatitis type 2 and in up to 8% ofpatients with chronic HCV infection.Performed at: [facility]Eng[facility] Hospital and Medical CenterTqgoha[address] [place], [place] [id number] Director: Zechariah Paula PhD,Phone: [phone] Muscle Antibodyon 53-10-6590Ueutdx Muscle Jpmvfifs85Fjvmuh0-35Qtl [facility] Physician GroupComment on above:Order Comment: Reason for [...] #### [facility] , #### PARVEEN, TSH3 #### [place] [address] USAThyrotropin [Units/volume] in Serum or PlasmaOrdered By: Wilver Felton on 58-45-5437HTW Qn1.24 m[IU]/LNormal0.45-5.33[facility] HospitalComment on above:Order Comment: Reason for Exam Elevated LFTs Reason for Exam FatigueResult Comment: PERFORMED BY: [place] [address] PATHOLOGIST PONY WORKER LISA COOLEY M.D.Performed By: #### MITOM2, L-K MICRO, ALPHA PHEN, HEMOCHROM, CERULOP, TENA, IGG, SMAB #### [facility] , #### PARVEEN, TSH3 #### [facility] [address] [place] [address] USAMiscellaneouson 33-55-4140Wsyxdrrcocdwe [id number]#1.00[facility] [id number]#1.00[facility] HospitalOutside Recordson 60-69-8918Ezdbafc Records [id number]#1.00[facility] Alanine aminotransferase [Enzymatic activity/volume] in Serum or PlasmaOrdered By: Imad Asaad on 66-38-2480BLW [Catalytic activity/Vol]48 U/L7-52[facility] HospitalAlbumin [Mass/volume] in Serum or Plasma by Bromocresol green (BCG) dye binding methoOrdered By: Imad Asaad on 00-09-3603Ohhmgbl BCG dye [Mass/Vol]4.3 g/dL3.5-5.7FGrand Lake Joint Township District Memorial HospitalAlkaline phosphatase [Enzymatic activity/volume] in Serum or PlasmaOrdered By: Imad Asaad on 45-25-3965ZLK [Catalytic activity/Vol]60 U/N79-911RakrnfdvcMercy Health Lorain HospitalAspartate aminotransferase [Enzymatic activity/volume] in Serum or Plasma Ordered By: Imad Asaad on 66-49-2272ETW [Catalytic activity/Vol]27 U/L13-39 [facility] HospitalBilirubin.direct [Mass/volume] in Serum or PlasmaOrdered By: Imad Asaad on 69-26-8059Faxcsnfkv.direct [Mass/Vol]0.10 mg/dL 0.03-0.18FGrand Lake Joint Township District Memorial HospitalBilirubin.total [Mass/volume] in Serum or PlasmaOrdered By: Imad Asaad on 38-48-2139Psnvjrlae [Mass/Vol]0.8 mg/dL 0.3-1.0[facility] HospitalGlobulin Calc (S) [Mass/Vol]Ordered By: Imad Asaad on 51-25-4947Tqmhbnmy (S) [Mass/Vol]2.8 g/dLMercy Health St. Rita's Medical Center B virus surface Ab [Units/volume] in SerumOrdered By: Wilver Felton on 98-50-1922QHD surface Ab Qn (S)>1000.0 mIU/mLImmunity>9.9[facility] HospitalComment on above:Status of Immunity Anti-HBs Level Inconsistent with Immunity 0.0 -9.9Consistent with Immunity >9.9Hepatitis B virus surface Ag [Presence] in Serum or Plasma by ImmunoassayOrdered By: Wilver Felton on 49-63-3938XBX surface Ag IA QlNegative NegativeMercy Health St. Rita's Medical Center C virus IgG Ab [Presence] in Serum or Plasma by ImmunoassayOrdered By: Wilver Felton on 68-27-0262GBN IgG IA Ql Non-ReactiveNon ReactiveMercy Health Lorain HospitalNo Panel Information Ordered By: Wilver Felton on 04-32-0503Hhywmizjk A IgM AntibodyNegativeNegative [facility] B Core IgM AntibodyNegativeNegative [facility] HospitalComment on above:Performed at: [employer] [id number] Director: Zechariah Paula PhD, Phone: [phone] B Core Total AntibodyNegativeNegativeMercy Health St. Rita's Medical Center B DNA Test InformationSee comment.[facility] HospitalComment on above:The reportable range for this assay is 10 IU/mL to 1billion IU/mL.Performed at: - Lab[address] [id number] Director: Aston Omalley MD, Phone: [phone] Hepatitis C InterpretationSee comment.[facility] HospitalComment on above:Not infected with HCV unless early or acute infection issuspected (which may be delayed in an immunocompromisedindividual), or other evidence exists to indicate HCVinfection.Protein [Mass/volume] in Serum or PlasmaOrdered By: Wilver Felton on 21-08-0838Aihyibu [Mass/Vol]7.1 g/dL6.4-8.9[facility]ult[facility] Orrville Hospitalerum hepatitis B virus surface antibody detectionOrdered By: Wilver Felton on 06-78-6120WFQ surface Ab Ql (S)Reactive.[facility] HospitalComment on above:Non Reactive: Inconsistent with immunity, less than 10 mIU/mL Reactive: Consistent with immunity, greater than 9.9 mIU/mLSerum or plasma albumin/globulin mass ratioOrdered By: Wilver Felton on 03-19-2023 Albumin/Globulin [Mass ratio]1.5 {ratio}[facility] Orrville Hospitalerum or plasma hepatitis B virus DNA measurement (units/volume) (viral load) by prob Ordered By: Wilver Felton on 77-49-4741ODU DNA GITA+probe QnNot detected.[facility]rville Hospitalerum or plasma hepatitis B virus DNA viral load by probe and target amplification meOrdered By: Wilver Felton on 99-54-5614RCP DNA GITA+probe [Log units/Vol]See comment.[facility] HospitalComment on above: Result Units: log10 IU/mLUnable to calculate result since non-numeric resultobtained for component test.Serum or plasma non-glucuronidated bilirubin measurement (mass/volume)Ordered By: Wilver Felton on 64-21-4467Pkemqybxr.indirect [Mass/Vol]0.7 mg/dLMercy Health Lorain HospitalOutside Recordson 03-03-2023 Outside [id number]#1.00[facility] HospitalOutside Recordson 72-16-4176Ztfccgw Records [id number]#1.00[facility] Coding Summaryon 14-36-0907Iaxxtl SummaryHTMLBase 64 UuxamofqNUj9zDc+PGhlYWQ+FT2YBVWtE79cyJDnhS1uA0GZFGvIDwneIKHLBKlBAhHgdzBoRU8xdJWz ZXJu [file] IGN (more content not included)...[facility] HospitalReminder Messageson 69-44-6951Jgfdgzna Messages From: BALJIT PISANO DO To: [facility] Clinical Pool ([place]R_[place]); Sent: 02/12/2023 15:32:57 EDT [...] % (14 - 48) 02/12/2023 13:38 Auto [place] % 12 % (1 - 12) 02/12/2023 13:38 Auto Eos % 2.0 % (0.9 - 4.0) 02/12/2023 13:38 Auto Baso % 0.8 % (0.2 - 2.0) 02/12/2023 13:38 Neut Abs# 3.4 x103/mcL (1.5 - 9.2) 02/12/2023 13:38 Lymph Abs# 1.7 x103/mcL (1.3 - 2.9) 02/12/2023 13:38 [place] Abs# 0.7 x103/mcL (0.0 - 0.8) 02/12/2023 13:38 Eos Abs# 0.1 x103/mcL (0.0 - 0.4) 02/12/2023 13:38 Baso Abs# 0.0 x103/mcL (0.0 - 0.2) attempted to contact patient, unable to LM, multiple rings, no VM Patient returned tamra and was notified of results.[facility].Auto Diff 1on 31-79-3309Xfuw [place] %12 %Normal1-12[facility] Medical CenterComment on above: Performed By: #### [id number], 3185638, [id number] ####[facility] (DEFAULT)[address] [place] [address] 29464Iqpf Abs#0.0 z73Qmbxju2.0-0.2 [facility] CenterComment on above:Performed By: #### [id number], 3902912, [id number] ####[facility] (DEFAULT)[address] [place] [address] 70297Crjshrhyf/100 WBC (Bld)0.8 %Normal0.2-2.0[facility] Medical CenterComment on above: Performed By: #### [id number], 7248101, [id number] ####[facility] (DEFAULT)[address] [place], [place] [address]Nix Abs#0.1 q74Xvyoqq1.0-0.4 [facility] HospitalComment on above:Performed By: #### [id number], 1820049, [id number] ####[facility] (DEFAULT)[address] [place] [address] 06084Mpopegitcyt/100 WBC (Bld)2.0 %Normal0.9-4.0[facility] center HospitalComment on above:Performed By: #### [id number], 8673150, [id number] ####[facility] (DEFAULT)[address] [place] [address] 78089Uvlrs Abs#1.7 x20Kximrm8.3-2.9 [facility] HospitalComment on above:Performed By: #### 92171466, 3976343, [id number] ####[facility] (DEFAULT)[address] [place] [address] 80483Crjnwhusoqd/100 WBC (Bld)28 %Aocrhp16-26Wyummxjf HospitalComment on above: Performed By: #### 05663951, 4903841, [id number] ####[facility] (DEFAULT)[address] [place] [address] 57899Qhgh Abs#0.7 x94Dzrvha2.0-0.8 [facility] HospitalComment on above:Performed By: #### 31316305, 4396969, [id number] ####[facility] (DEFAULT)[address] [place] [address] 67436Xtyp Abs#3.4 p64Qdizji7.5-9.2[facility]uder HospitalComment on above:Performed By: #### 51477401, 9097602, [id number] ####[facility] (DEFAULT)[address] [place] [address] 57510Kvaysatjyow/100 WBC (Bld)57 %Girjds91-39Fswbfdpp HospitalComment on above:Performed By: #### 31105982, 4657249, [id number] ####[facility] (DEFAULT)[address] [place] [address] 55425FOU w/ Auto Diffon 15-48-1347Natrfcdipuz distribution width (RBC) [Ratio]12.9 %Normal 11.5-15.0[facility] Medical CenterComment on above:Performed By: #### 91102510, 3383207, [id number] #### [facility] (DEFAULT) [address] [place] [address] 80891Guphkfkaje (Bld) [Volume fraction]42.2 %Gzvwic07.8-51.9 [facility] CenterComment on above:Performed By: #### 10828924, 8727672, [id number] #### [facility] (DEFAULT) [address] [place], [place] [address]Hemoglobin (Bld) [Mass/Vol]14.7 g/kBGlxtki53.8-17.7 [facility] CenterComment on above:Performed By: #### 12697235, 5855272, [id number] #### [facility] (DEFAULT) [address] [place] [address] 34296Kug Diff?AutoInvalid Interpretation CodeDiley Ridge Medical Center Comment on above:Performed By: #### [id number], 9683414, [id number] #### [facility] (DEFAULT) [address] [place] [address] 37668IVN (RBC) [Entitic mass]30 poDmpzjm45-77Gxanhzjr Hospital Comment on above:Performed By: #### 08698015, 5032466, [id number] #### [facility] (DEFAULT) [address] [place] [address] 72856KJQH (RBC) [Mass/Vol]35 g/aTIzdlxi72-27Eujfssoz Hospital Comment on above:Performed By: #### 30631871, 0312604, [id number] #### [facility] (DEFAULT) [address] [place] [address] 73285DFJ (RBC) [Entitic vol]86 pSBnbpcc27-792Xsxyjvmk Hospital Comment on above:Performed By: #### [id number], 8789182, [id number] #### [facility] (DEFAULT) [address] [place] [address] 43035Apbuslyr190 e66Yfgyhz422-548Jfnctcpj HospitalComment on above:Performed By: #### 36961650, 0552572, [id number] #### [facility] (DEFAULT) [address] [place] [address] 76164Xgxjedto mean volume (Bld) [Entitic vol]8.6 fLNormal 6.3-10.2[facility] center HospitalComment on above:Performed By: #### [id number], 2865432, [id number] #### [facility] (DEFAULT) [address] [place] [address] 90633EXZ5.89 x50Xpssgj4.70-5.30[facility] HospitalComment on above:Performed By: #### 26280872, 0929070, [id number] #### [facility] (DEFAULT) [address] [place] [address] 25330EJC1.9 v46Rxmcbr5.5-10.5[facility] HospitalComment on above: Performed By: #### 56383485, 0087767, [id number] #### [facility] (DEFAULT) [address] [place] [address] 44086Figpv Enzymeson 29-17-0365Cld Phos56 IU/QIrwpyq17-95 [facility] HospitalComment on above:Performed By: #### 08963277, 8963217, [id number] ####[facility] (DEFAULT)[address] [place] [address] 32266GCV [Catalytic activity/Vol]53.0 U/LHigh8.0-36.0[facility] HospitalComment on above:Performed By: #### 54849687, 4195234, [id number] ####[facility] (DEFAULT)[address] [place] [address] 19521BAW [Catalytic activity/Vol]35 U/GRrjmqk75-79Cveidiaq HospitalComment on above:Performed By: #### 87176257, 6293032, [id number] ####[facility] (DEFAULT)[address] [place] [address] 35807Wmtrz glutamyl transferase [Catalytic activity/Vol]31.0 U/LHigh 7.0-26.0[facility] CenterComment on above:Performed By: #### 97147525, 2426347, [id number] ####[facility] (DEFAULT)[address] [place] [address] 31206Dtsubf Summaryon 09-88-1055Ergsto SummaryHTMLBase 64 ZznthkwzJMe4mEn+PGhlYWQ+NL9MCONuX42pfGOhgN1iT4PZOFiYGeliQAMQLMkODhQwyeBtEK2ulMJm ZXJu [file] IGN (more content not included)...[facility] HospitalOutslincoln county health system Recordson 32-93-1837Laevwjr [id number]#1.00OT[facility]IFF [facility] Messageson 98-19-9281Ptmltllq Messages From: BALJIT PISANO DO To: [facility] Clinical Pool ([place]R_[place]); Sent: 01/13/2023 07:37:35 EDT ! Show up: [...] IU/L (7.0 - 26.0) Notified patient of resultsNormFlower Hospital Messages From: BALJIT PISANO DO To: [facility] Clinical Pool ([place]R_[place]); Sent: 01/13/2023 07:34:28 EDT ! Show up: 01/13/2023 07:34:28 EDT Subject: Results Follow Up Actions: Call the patient with result(s) Due Date/Time: 01/14/2023 07:34:00 EDT Reminder Comments: swollen fatty liver consistenat with hepatitis Results: Date Result Type Result Name 01/09/2023 16:08 Radiology US Gallbladder Notified patient of resultsNormalDiley Ridge Medical CenterLiver Enzymeson 50-67-5570Sjt Phos57 IU/QYsyeaw21-74Oxqrlzqb HospitalComment on above:Performed By: #### [id number] ####[facility] (DEFAULT)[address] [place] [address] 25826AHL [Catalytic activity/Vol]54.0 U/LHigh8.0-36.0[facility] Medical CenterComment on above:Performed By: #### [id number] ####[facility] (DEFAULT)[address] [place] [address] 05791SIO [Catalytic activity/Vol]35 U/MPvekut86-70 [facility] CenterComment on above:Performed By: #### [id number] ####[facility] (DEFAULT)[address] [place] [address] 58425Ayukb glutamyl transferase [Catalytic activity/Vol]30.0 U/LHigh7.0-26.0[facility] CenterComment on above:Performed By: #### [id number] ####[facility] (DEFAULT)[address] [place] [address] 47457RJ Gallbladderon 32-31-6815MX GallbladderClinical History: Right upper quadrant pain. Technique: [...] Rafita Farris MD 01/09/23 4:08 pm Technologist: [facility] CenterComain line health/main [facility] hospitals Summaryon 37-27-3813Rjrdli SummaryMLBase 64 IqttojotDUv5mNy+PGhlYWQ+OX1ETVSmZ46ltXPgkV4xN4ERJRtUAmyvSKJQMCmVRtTplyXoAB1whOVr ZXJu [file] IGN (more content not included)...[facility] HospitalReminder Messageson 89-85-8058Ypuwrkoo Messages From: BALJIT PISANO DO To: [facility] Clinical Pool ([place]R_[place]); Sent: 01/01/2023 10:45:19 EDT [...] voicemail Notified patient of results, patient verbalized understanding.[facility] HospitalHBsAg Screen LCon 65-40-0401YEkJl Screen LCNegativeInvalid Interpretation CodeNegativeDiley Ridge Medical CenterComment on above:Result Comment: Performed At: [id number] [place], [place] [id number] Chai Apple PhD Ph:[phone] By: #### [id number], 72104477, 2334783, 01315052, 29632265, [id number] ####[facility] (DEFAULT)[address] [place] [address] 59694ITP Antibody LCon 43-98-8545Wyc C Virus Ab LC Non-ReactiveInvalid Interpretation CodeFort Hamilton HospitalComment on above:Result Comment: HCV antibody alone does not differentiate between previously resolved infection and active infection. Equivocal and Reactive HCV antibody results should be followed up with an HCV RNA test to support the diagnosis of active HCV infection. Performed At: [address] [id number] Chai Apple PhD Ph:[phone] By: #### [id number], 23076920, 6737537, 72909792, 11760720, [id number] ####[facility] (DEFAULT)[address] [place] [address] 88519Chc A Ab, Total LCon 21-46-9144Pcn A Ab, Total LCPositiveAbnormalNegGalion HospitalComment on above:Result Comment: Performed At: [address] [id number] Chai Apple PhD Ph:[phone] By: #### [id number], 67786497, 8094522, 67602221, 97790892, [id number] ####[facility] (DEFAULT)[address] [place] [address] 06518Wucgmmf Recordson 37-96-6644Lqewxer Records [id number]#1.00[facility] Patient Handouton 38-99-4075Wjxxplb Handout [id number]#1.00[facility].Auto Diff 1on 09-69-9300Cdnp [place] %8 %Normal1-12[facility] HospitalComment on above: Performed By: #### [id number], 58540744, 8246294, 34816658, 05858114, [id number] ####[facility] (DEFAULT)[address] [place] [address] 63481Gegd Abs# 0.0 a62Wnpsdm7.0-0.2[facility] center HospitalComment on above:Performed By: #### 95477821, 18349509, 2946466, 43584539, 75231727, 1048660946 ####[facility] (DEFAULT)[address] [place] [address] 94664Glsbstjrp/100 WBC (Bld) 0.6 %Normal0.2-2.0[facility] HospitalComment on above:Performed By: #### 27707634, 98119790, 4611169, 78097919, 72704775, 2141525772 ####[facility] (DEFAULT)[address] [place] [address] 31345Mad Abs#0.1 h09Gxpnvl9.0-0.4 [facility] HospitalComment on above:Performed By: #### 56717060, 37692709, 1282999, 67633818, 70690718, 9046129739 ####[facility] (DEFAULT)[address] [place] [address] 13709Xltalchmajk/100 WBC (Bld)1.9 %Normal0.9-4.0 [facility] HospitalComment on above:Performed By: #### 89983206, 52450296, 1453094, 28143788, 86131268, 5874960169 ####[facility] (DEFAULT)[address] [place] [address] 50331Gmdsj Abs#1.8 f40Tlyujt7.3-2.9[facility] HospitalComment on above:Performed By: #### 53209719, 58235416, 5240559, 47629625, 37986708, 4186030092 ####[facility] (DEFAULT)[address] [place] [address] 78613Istwgeyzvcf/100 WBC (Bld)27 %Sjdcyl41-18Aswlbjge HospitalComment on above:Performed By: #### 66895248, 54762237, 3000897, 15480789, 73161283, 6031251414 ####[facility] (DEFAULT)[address] [place] [address] 06349Ibyh Abs#0.5 r29Cezbnk1.0-0.8[facility] center Hospital Comment on above:Performed By: #### 54587625, 21016505, 0965695, 34551795, 77407600, 3468527408 ####[facility] (DEFAULT)[address] [place] [address] 24491Hurx Abs#4.3 s36Ljbaqz0.5-9.2[facility] HospitalComment on above: Performed By: #### 05664444, 36926967, 4223634, 83231729, 51112782, 4430997911 ####[facility] (DEFAULT)[address] [place] [address] 72321 Neutrophils/100 WBC (Bld)63 %Paokec27-14Vqqppqzt HospitalComment on above: Performed By: #### 32513317, 55687433, 3140526, 87483772, 82015314, 4255087616 ####[facility] (DEFAULT)[address] [place] [address] 72002WAI w/ Auto Diffon 70-17-8615Ispumhxqavv distribution width (RBC) [Ratio]13.0 %Normal 11.5-15.0[facility] HospitalComment on above:Performed By: #### 67881606, 22154184, 3038362, 81770355, 88354654, 6839925546 ####[facility] (DEFAULT)[address] [place] [address] 27469Lqusamgepm (Bld) [Volume fraction]43.9 %Modgoe41.8-51.9[facility] HospitalComment on above:Performed By: #### 34687040, 88314698, 6355745, 11260167, 70209502, 0244995989 ####[facility] (DEFAULT)[address] [place] [address] 64251Ajorzfavot (Bld) [Mass/Vol]15.4 g/fPLmntvk40.8-17.7[facility] HospitalComment on above:Performed By: #### 98804055, 72231592, 9089128, 88618982, 95778465, 2080711409 ####[facility] (DEFAULT)[address] [place] [address] 63806Fya Diff? AutoInvalid Interpretation CodeUniversity Hospitals Health System HospitalComment on above:Performed By: #### 66917695, 25486849, 5368597, 72747715, 72573827, 3762211440 ####[facility] (DEFAULT)[address] [place] [address] 72180VMI (RBC) [Entitic mass]30 qaQhyrjs66-82Asyrtaak HospitalComment on above:Performed By: #### 57194831, 88102090, 4044502, 49503788, 81209333, 6071587598 ####[facility] (DEFAULT)[address] [place] [address] 29151EOKW (RBC) [Mass/Vol]35 g/cRVovdtu91-62Baoegarz HospitalComment on above:Performed By: #### 71224359, 04854560, 8202961, 06165233, 36138739, 0552009068 ####[facility] (DEFAULT)[address] [place] [address] 14573HVB (RBC) [Entitic vol]86 fL Pqszeo76-348Rcwrfylb HospitalComment on above:Performed By: #### 29221663, 65191369, 9924166, 58435826, 69765060, 5586829146 ####[facility] (DEFAULT)[address] [place] [address] 35927Cqurlpyr293 g53Ixvxgi299-161 [facility] HospitalComment on above:Performed By: #### 28440430, 56051862, 2061912, 57027963, 40205158, 8493512935 ####[facility] (DEFAULT)[address] [place] [address] 98302Jwyjnnlg mean volume (Bld) [Entitic vol]8.5 fLNormal6.3-10.2[facility] HospitalComment on above:Performed By: #### 94206837, 04980847, 8099038, 86705434, 53577177, 7327435060 ####[facility] (DEFAULT)[address] [place] [address] 15295LSF9.08 m76Izzgxy9.70-5.30 [facility] CenterComment on above:Performed By: #### 48985531, 48985932, 8339908, 53804347, 23533525, 5713640033 ####[facility] (DEFAULT)[address] [place] [address] 70174QRF7.8 i69Jrfxvp4.5-10.5[facility] Hospital Comment on above:Performed By: #### 09650466, 74509871, 7738459, 32567954, 67926530, 5990318306 ####[facility] (DEFAULT)[address] [place] [address] 29683Hqrlu Enzymeson 11-64-4915Grv Phos62 IU/RRfnjzi91-17Pprhmfuw HospitalComment on above:Performed By: #### 45232325, 35052854, 1250354, 41919866, 12709472, 2407932650 ####[facility] (DEFAULT)[address] [place] [address] 61745QHK [Catalytic activity/Vol]60.0 U/LHigh8.0-36.0 [facility] CenterComment on above:Performed By: #### 80526564, 12961257, 1150231, 61417527, 03556170, 3610963621 ####[facility] (DEFAULT)[address] [place] [address] 73858EZH [Catalytic activity/Vol]41 U/VWdrq33-75 [facility] CenterComment on above:Performed By: #### 81342769, 85404361, 7204632, 86590830, 22771765, 4726629846 ####[facility] (DEFAULT)[address] [place] [address] 93330Dyncv glutamyl transferase [Catalytic activity/Vol]26.0 U/LNormal7.0-26.0[facility] CenterComment on above:Performed By: #### 86888599, 84054455, 0858122, 95465118, 74932989, 8484928331 ####[facility] (DEFAULT)[address] [place] [address] 14095Mshsrgi Handouton 90-91-9748Mmxpgtt Handout [id number]#1.00OTGTIFFNormMercer County Community HospitalRNP ANTIBODIESon 89-73-6601FGD Antibodies0.3 AINormal0.0-0.9[facility] Comment on above:Performed By: #### RNPAB #### [facility] [address] [place] [address] Dr. Radha Jung ANTIBODIES (Anti SSA/B)on 34-95-7846Dxgduhr'maegan Anti-SS-A <0.5Chybms6.0-0.9[facility] HospitalComment on above:Performed By: #### SAASSAB #### [facility] [address] [place] [address] Dr. Radha Lux Anti-SS-B<0.2Gkgwrb6.0-0.9[facility] HospitalComment on above:Performed By: #### SAASSAB #### [facility] [address] [place] [address] Dr. Radha SOLIS Bon 72-88-9468XDM DirectNegativeNormalNegativeCorey HospitalComment on above:Performed By: #### SLEPB #### [facility] [address] [place] [address] Dr. Radha OwensAnti-DNA (DS) Ab Qn2 IU/mLNormal0-9[facility] HospitalComment on above:Result Comment: Negative <5 Equivocal 5 - 9 Positive >9Performed By: #### SLEPB #### [facility] [address] [place] [address] Dr. Radha OwensAntichromatin Antibodies<0.5Etexka2.0-0.9[facility] Comment on above:Performed By: #### SLEPB #### [facility] [address] [place] [address] Dr. Radha Jimplement C3, Ispda476 mg/jMRecupm26-163JowCorey Hospital Comment on above:Performed By: #### SLEPB #### [facility] [address] [place] [address] Dr. Radha Jimplement C4, Serum23 mg/aTPujdmz18-10GywCorey Hospital Comment on above:Performed By: #### SLEPB #### [facility] [address] [place] [address] Dr. Radha OwensSMITH ANTIBODIESon 07-98-9528Xzypi Antibodies<0.8Iymhue7.0-0.9[facility] HospitalComment on above:Performed By: #### SMITHAB #### [facility] [address] [place] [address] Dr. Radha OwensRHEUMATOID FACTORon 55-98-2515GG Latex Turbid.<10.0Normal<14.0[facility] HospitalComment on above:Performed By: #### RF ####[facility] [address] [address]Dr. Radha Montes De [place] by IFAon 87-93-1973Kxdeqicatqa Antibodies, IFAPositiveAbProMedica Bay Park Hospital Comment on above:Result Comment: Negative <1:80 Borderline 1:80 Positive >1:80Performed By: #### ANAIFA #### [facility] [address] [place] [address] Dr. Radha Herrera PatternDayton Children's HospitalComment on above: Performed By: #### ANAIFA #### [facility] [address] [address] [address] Radha Garcia PatternNoUniversity Hospitals Portage Medical CenterComment on above: Performed By: #### ANAIFA #### [facility] [address] [address] [address] Radha Vilella Pattern1:320Critically highCorey Hospital Comment on above:Result Comment: ICAP nomenclature: AC-1Performed By: #### ANAIFA #### [facility] [address] [address] [address] Radha Benavidez PatternNoUniversity Hospitals Portage Medical CenterComment on above: Performed By: #### ANAIFA #### [facility] [address] [address] [address] Radha OwensNote:CommentNoUniversity Hospitals Portage Medical CenterComment on above:Result Comment: For more information about [...] titers Nucleosomes, Histones Drug-induced SLE Speckled Sm, DEVELOPMENTAL MATHEMATICS INSTRUCTOR, SCL-70, SLE,MCTD,PSS (diffuse form), SS-A/SS-B Sjogrens Nucleolar SCL-70, PM- 1/SCL High titers Scleroderma, PM/DM Centromere Centromere PSS (limited form)w/Crest syndrome variable Nuclear Dot Sp100,p01-npucsp Primary Biliary Cirrhosis Nuclear GP210, Primary Biliary Cirrhosis Membrane subhash A,B,C Performed By: ###Bharat DAVIS #### [facility] [address] [place] [address] Dr. Radha Moseley Dot PatternNormAvita Health System on above: Performed By: #### SUSAN #### [facility] [address] [place] [address] Dr. Radha Moseley Membrane PatternNoSelect Medical [facility] on above:Performed By: #### SUSAN #### [facility] [address] [place] [address] Dr. Radha Ganolar PatternNoSelect Medical [facility] Hospital on above: Performed By: #### ANAIFA #### [facility] [address] [address] [address] Radha Lees [facility] HospitalComment on above:Performed By: #### ANAIFA #### [facility] [address] [address] [address] Radha OwensSpeckled [facility] on above: Performed By: #### ANAIFA #### [facility] [address] [address] [address] Radha Vargasle [employer] [facility] on above:Performed By: #### ANAIFA #### [facility] [address] [place] [address] Dr. Radha SantiagoEUMATOID FACTORon [id number] Latex Turbid.<10.0Normal<14.0[facility]ble[facility] on above:Performed By: #### RF ####[facility] [address] [address]Dr. Radha Barnett AUTO DIFF on [id number] #0.0 103/ulNormal0.0-0.1[facility] on above: Performed By: #### CBC #### [facility] [address] [address] [address] Radha OwensBasophils/100 WBC (Bld)0.6 %Normal0.2-2.0The [facility] Comment on above:Performed By: #### CBC #### [facility] [address] [address] [address] Radha Aguirre #0.1 103/ulNormal0.0-0.7The [facility] on above: Performed By: #### CBC #### [facility] [address] [address] [address] Radha Burrellosinophils/100 WBC (Bld)1.8 %Normal0.9-7.0[facility] Comment on above:Performed By: #### CBC #### [facility] [address] [place] [address] Dr. Radha Burrellrythrocyte distribution width (RBC) [Ratio]12.3 %Ccafkh12.0-15.0 The [facility] on above:Performed By: #### CBC #### [facility] [address] [place] [address] Dr. Radha OwensHematocrit (Bld) [Volume fraction]42.2 %Abnszv97.0-54.0The Ridgeland HospitalComment on above:Performed By: #### CBC #### [facility] [address] [place] [address] Dr. Radha OwensHemoglobin (Bld) [Mass/Vol]14.3 g/kKOgfmrx69.0-18.0The [facility] PrebleComment on above:Performed By: #### CBC #### [facility] [address] [place] [address] Dr. Radha Farooq #0.02 10e3/ulNormal0.00-0.03The [facility] on above:Performed By: #### CBC #### [facility] [address] [place] [address] Dr. Radha Farooq %0.3 %Normal0.0-0.5The [facility] on above: Performed By: #### CBC #### [facility] [address] [place] [address] Dr. Radha BustosH #1.8 103/ulNormal1.2-3.8The [facility] on above:Performed By: #### CBC #### [facility] [address] [place] [address] Dr. Radha Wattersmphocytes/100 WBC (Bld)27.8 %Dusqif06.5-60.0The [facility]bleComment on above:Performed By: #### CBC #### [facility] [address] [place] [address] Dr. Radha DimasUAL DIFF REQNONormalThe [facility] PrebleComment on above: Performed By: #### CBC #### [facility] [address] [address] [address] Radha Penaloza (RBC) [Entitic mass]29.8 ojOdrvpw79.9-34.0The [facility] PrebleComment on above:Performed By: #### CBC #### [facility] [address] [place] [address] Dr. Radha Penaloza (RBC) [Mass/Vol]33.9 g/qPHbrzfp29.9-35.2The [facility]geland HospitalComment on above:Performed By: #### CBC #### [facility] [address] [place] [address] Dr. Radha Penaloza (RBC) [Entitic vol]87.9 kGGfyqpb28.0-94.0The [facility]bleComment on above:Performed By: #### CBC #### [facility] [address] [place] [address] Dr. Radha Lofton #0.7 103/ulNormal0.3-0.8The [facility]bleComment on above:Performed By: #### CBC #### [facility] [address] [place] [address] Dr. Radha Peralesocytes/100 WBC (Bld)11.3 %Normal1.7-12.0The [facility] Comment on above:Performed By: #### CBC #### [facility] [address] [address] [address] Radha Mcfadden #3.8 103/ulNormal1.4-6.5The [facility] PrebleComment on above:Performed By: #### CBC #### [facility] [address] [place] [address] Dr. Radha Weeksutrophils/100 WBC (Bld)58.2 %Jsszon24.0-75.0The [facility]bleComment on above:Performed By: #### CBC #### [facility] [address] [place] [address] Dr. Radha Herrmannlet mean volume (Bld) [Entitic vol]10.4 fLNormal9.5-13.5The [facility] PrebleComment on above:Performed By: #### CBC #### [facility] [address] [place] [address] Dr. Radha MarmolejoT235 103/mbCdgybp075-522Umi [facility]bleComment on above: Performed By: #### CBC #### [facility] [address] [place] [address] Dr. Radha OwensRBC4.80 106/ulNormal4.70-6.10The [facility]gel[facility] HospitalComment on above:Performed By: #### CBC #### [facility] [address] [place] [address] Dr. Radha OwensWBC6.5 103/ulNormal4.0-11.0The [facility]ble[facility] on above: Performed By: #### CBC #### [facility] [address] [place] [address] Dr. Radha Mclaughlin 14(COMP METB)on [id number] [Mass/Vol]3.9 g/dLNormal 3.4-5.0The [facility]bleComment on above:Performed By: #### CMP, URIC #### [facility] [address] [place] [address] Dr. Radha OwensAlbumin/Globulin [Mass ratio]1.0 {ratio}NormalThe [facility] PrebleComment on above:Performed By: #### CMP, URIC #### [facility] [address] [place] [address] Dr. Radha Uriarte [Catalytic activity/Vol]73 U/CCtvotp83-574Tms [facility]bleComment on above:Performed By: #### CMP, URIC #### [facility] [address] [place] [address] Dr. Radha Atkins [Catalytic activity/Vol]66 U/LCritically erau81-32Adx [facility]bleComment on above:Performed By: #### CMP, URIC #### [facility] [address] [place] [address] Dr. Radha Barron gap [Moles/Vol]13.2 mmol/LNormalCorey Hospital Comment on above:Performed By: #### CMP, URIC #### [facility] [address] [place] [address] Dr. Radha OwensAST [Catalytic activity/Vol]31 U/QGopjmh83-08Msi [facility]bleComment on above:Performed By: #### CMP, URIC #### [facility] [address] [place] [address] Dr. Radha OwensBilirubin [Mass/Vol]0.8 mg/dLNormal0.2-1.0The [facility] Comment on above:Performed By: #### CMP, URIC #### [facility] [address] [place] [address] Dr. Radha OwensCalcium [Mass/Vol]9.2 mg/dLNormal8.5-10.1[facility] Comment on above:Performed By: #### CMP, URIC #### [facility] [address] [place] [address] Dr. Radha OwensChloride [Moles/Vol]107 mmol/RSxmtij72-623MzxCorey Hospital Comment on above:Performed By: #### CMP, URIC #### [facility] [address] [place] [address] Dr. Radha OwensCO2 [Moles/Vol]26.0 mmol/LAzcfcy62.0-32.0[facility] Comment on above:Performed By: #### CMP, URIC #### [facility] [address] [place] [address] Dr. Radha OwensCreatinine [Mass/Vol]0.89 mg/dLNormal0.70-1.30The [facility]bleComment on above:Performed By: #### CMP, URIC #### [facility] [address] [place] [address] Dr. Radha BurrellGFR-AF ZIMBABWEAN>60Normal>=60The [facility] PrebleComment on above:Performed By: #### CMP, URIC #### [facility] [address] [place] [address] Dr. Radha uBrrellGFR-NON AF ZIMBABWEAN>60Normal>=60The [facility]bleComment on above:Performed By: #### CMP, URIC #### [facility] [address] [place] [address] Dr. Radha OwensGlobulin (S) [Mass/Vol]4.1 g/dLNormalThCleveland Clinic Children's Hospital for RehabilitationComment on above:Performed By: #### CMP, URIC #### [facility] [address] [place] [address] Dr. Radha OwensGlucose [Mass/Vol]99 mg/jXZmxeup93-796Rnt [facility] Comment on above:Performed By: #### CMP, URIC #### [facility] [address] [place] [address] Dr. Radha OwensPotassium [Moles/Vol]4.2 mmol/LNormal3.5-5.1[facility] Comment on above:Performed By: #### CMP, URIC #### [facility] [address] [place] [address] Dr. Radha OwensProtein [Mass/Vol]8.0 g/dLNormal6.4-8.2[facility] Comment on above:Performed By: #### CMP, URIC #### [facility] [address] [place] [address] Dr. Radha OwensSodium [Moles/Vol]142 mmol/NCjayqm670-994WjzCorey Hospital Comment on above:Performed By: #### CMP, URIC #### [facility] [address] [place] [address] Dr. Radha OwensUrea nitrogen [Mass/Vol]13.0 mg/dLNormal6.4-19.3THarrison Community HospitalComment on above:Performed By: #### CMP, URIC #### [facility] [address] [place] [address] Dr. Radha Melendrez nitrogen/Creatinine [Mass ratio]14.6 mg/mgNormalThe [facility]bleComment on above:Performed By: #### CMP, URIC #### [facility] [address] [place] [address] Dr. Yilan ChangSED RATE WESTERGRENon [id number] RATE12 mm/hrNormal<=15The [facility] PrebleComment on above:Performed By: #### SEDR #### [facility] [address] [address] [address] Radha OwensURIC ACID SERUMon [id number] [Mass/Vol]5.9 mg/dLNormal 3.5-7.2The [facility]bleComment on above:Performed By: #### CMP, URIC #### [facility] [address] [address] [address] Radha Rodriguez CLIF DOP LEG RTon [id number] CLIF DOP LEG RTEXAMINATION: US CLIF DOP LEG RT HISTORY: Pain of right calf COMPARISON: No relevant comparison available. FINDINGS: REGION: Right lower extremity THROMBI: None. COMPRESSIBILITY: Normal compressibility. FLOW: Normal waveform and antegrade flow between 5 and 20 cm/s. OTHER: None. IMPRESSION: 1. No deep vein thrombus within the right lower extremity. Electronically authenticated by: SANJAY ROJAS Date: 2022-07-03 17:14[facility] HospitalCOVID Quick Testingon [id number] Web Performance Other mRI Knee w/o Righton [id number] Knee w/o Right HISTORY: Fall with knee [...] and signed by Rafita Farris on 05/01/2021 1125NormalNorthern Yale New Haven Psychiatric HospitalKN RIGHTon [id number] RIGHTEXAMINATION: KNEE RIGHT, 04/18/2021 5:05 PM EST HISTORY: Traumatic injury, pain COMPARISON: None. TECHNIQUE: Right knee x-ray: 2 view(s). FINDINGS: Bones are normal density. No fracture, no bone destruction. Small knee effusion noted. Subcutaneous edema is seen. IMPRESSION: 1. No acute traumatic osseous pathology 2. Subcutaneous edema, possible small knee effusionNoCoshocton Regional [facility] XR ANKLE 3 VIEWS - LEFTon [id number] ANKLE 3 VIEWS - LEFTREASON FOR EXAM: [...] Kandice Noriega MD on 12/25/2017 2:18 PMNormal [facility] Vital Signs Date TimeVital SignValuePerforming OjdvhmzdcMethnjtz20-34-5317 08:35-0400Body gnbovr722.88 cmLeatha Diaz APRN Work Phone: [facility]10-22-2025 08:35-0400 Body mass index (BMI) [Ratio]61.7 kg/p2XzcdcykgLeatha Diaz APRN Work Phone: [facility]10-22-2025 08:35-0400 Body jnyimgyvvuo39.2 [degF]Leatha Diaz APRN Work Phone: 1([phone] [place], [place] [address]36[address]10-22-2025 08:35-0400 Body xuxmyy314.38 kgLaetha Diaz [employer] Work Phone: [phone])[address]10-22-2025 08:35-0400 Diastolic blood fkamwqsf84 mm[Hg]Leatha Diaz [employer] Work Phone: 1(360)702-[address] [place], [place] [address]10-22-2025 08:35-0400 Heart ljyb024 /minLeatha Diaz [employer] Work Phone: [phone])[address]10-22-2025 08:35-0400 SaO2% (BldA) [Mass fraction]94 %Leatha Diaz [employer] Work Phone: [phone])343-[address] [place], [place] [address]10-22-2025 08:35-0400 Systolic blood coagmfqw413 mm[Hg]Leatha Diaz [employer] Work Phone: 1(472)054-[address] [place], [place] [address]36[address]10-06-2025 10:06-0400 Body .9 cmFranci Byrd [employer] Work Phone: [facility]10-06-2025 10:06-0400Body mass index (BMI) [Ratio]61.28 kg/z1YvyojqlFranci Gayoll [employer] Work Phone: [facility]10-06-2025 10:06-0400Body qjsytn620.94 kgFranci Gayoll [employer] Work Phone: [facility] CenterKaiima Npklud22-11-3674 10:06-0400Diastolic blood kufmpvfu84 mm[Hg]Franci Carson [employer] Work Phone: [facility]10-06-2025 10:06-0400Heart rate 106 /minFranci Gayoll [employer] Work Phone: [facility]10-06-2025 10:06-0400Systolic blood sfxuiztt683 mm[Hg]Franci Carson [employer] Work Phone: [facility]09-16-2025 10:44-0400Body mrnupx631.9 cmGail Shell MD Work Phone: [facility]09-16-2025 10:44-0400Body mass index (BMI) [Ratio]60.49 kg/b7BdxrtGail Shell MD Work Phone: [facility]09-16-2025 10:44-0400Body uqydkp822.3 kgGail Shell MD Work Phone: [facility]09-16-2025 10:44-0400Diastolic blood mm[Hg]Gail Shell MD Work Phone: [facility]09-16-2025 10:44-0400Heart rate 111 /Johnathan Shell MD Work Phone: [facility]09-16-2025 10:44-0400Systolic blood cakwhijc300 mm[Hg]Gail Shell MD Work Phone: [facility]09-08-2025 09:34-0400Body .9 cmFranci Gayoll [employer] Work Phone: [facility]09-08-2025 09:34-0400Body mass index (BMI) [Ratio]60.33 kg/c9Wgpkaslelmo Byrd [employer] Work Phone: [facility]09-08-2025 09:34-0400Body agrnvf567.76 kgAbelinoarturo Byrd [employer] Work Phone: [facility]09-08-2025 09:34-0400Diastolic blood mpyzgqqu64 mm[Hg]Franci Byrd [employer] Work Phone: [facility]09-08-2025 09:34-0400Heart rate 100 /minFranci Byrd [employer] Work Phone: [facility]09-08-2025 09:34-0400Systolic blood blfumaov441 mm[Hg]Franci Byrd [employer] Work Phone: [facility]09-03-2025 10:35-0400Diastolic blood iymkwpaw85 mm[Hg]Enid Montenegro [employer] Work Phone: [facility]09-03-2025 10:35-0400Heart rate 90 /minEnid Montenegro [employer] Work Phone: [facility]09-03-2025 10:35-0400Systolic blood etjchwac903 mm[Hg]Enid Montenegro [employer] Work Phone: [facility]08-07-2025 08:15-0400Body .[address]08-07-2025 08:15-0400Body mass index (BMI) [Ratio]59.4 kg/m2Pmh [address] [place], [place] 6472408-07-2025 08:15-0400Body dmloyi304.[address] [place], [place] 647[address]07-22-2025 08:22-0400Body hdmuwf862.9 cmBelen Langston MD Work Phone: [facility]07-22-2025 08:22-0400Body mass index (BMI) [Ratio]60.2 kg/s4EnjwbjmidrbBelen Langston MD Work Phone: [facility]07-22-2025 08:22-0400Body mgakgh306.4 kgBelen Langston MD Work Phone: [facility]06-05-2025 08:28-0400Body .88 cmMer[facility]06-05-2025 08:28-0400Body mass index (BMI) [Ratio]61.2 kg/m3McaurxhjvMercy Health Lorain Hospital06-05-2025 08:28-0400Body duhijgkdhcp01.6 [degF][facility]06-05-2025 08:28-0400Body qzskeb120.02 kgMer[facility] Health [facility] Hospital06-05-2025 08:28-0400Diastolic blood neiybliz24 mm[Hg][facility] 10-13-2024 08:28-0400Heart rate97 /minMercy Health Lorain Hospital 10-13-2024 08:28-8245IiG8% (BldA) [Mass fraction]97 %[facility]06-05-2025 08:28-0400Systolic blood gvmyigtz174 mm[Hg][facility]05-15-2025 09:01-0400Body nkatny721.88 cmMercy Health [facility] Hospital05-15-2025 09:01-0400Body mass index (BMI) [Ratio]60.5 kg/m2 [facility]05-15-2025 09:01-0400Body bbobnokfqdd20.9 [degF][facility]05-15-2025 09:01-0400Body bvkcer581.3 kg [facility]05-15-2025 09:01-0400Diastolic blood dqicmdsk62 mm[Hg][facility]05-15-2025 09:01-0400Heart vicq188 /min [facility]05-15-2025 09:01-9135NdE5% (BldA) [Mass fraction]97 %[facility]05-15-2025 09:01-0400Systolic blood btsbmydl090 mm[Hg][facility]04-23-2025 13:04-0400 Body bgcuah476.88 cmMercy Health [facility] Hospital04-23-2025 13:04-0400Body mass index (BMI) [Ratio]59.8 kg/r1AtcembqvjMercy Health Lorain Hospital04-23-2025 13:04-0400Body [degF][facility]04-23-2025 13:04-0400Body qabnse711.03 kgMercy Health Lorain Hospital04-23-2025 13:04-0400Diastolic blood lfggnxyu40 mm[Hg][facility] 08-31-2024 13:04-0400Heart gxtj512 /[facility] 08-31-2024 13:04-1022ChO5% (BldA) [Mass fraction]96 %[facility]04-23-2025 13:04-0400Systolic blood flvrtmap116 mm[Hg][facility]02-25-2025 23:17-0500Diastolic blood ygpuusib88 mm[Hg]Nato Lezama [address] [place], [place] 1833502-25-2025 23:17-0500Heart rate96 /Joanie Lezama [address] [place], [place] 1833502-25-2025 23:17-0500 Respiratory rate18 /Joanie Lezama [address] [place], [place] 1833502-25-2025 23:17-9979NfS0% (BldA) [Mass fraction]95 %Nato Lezama [address] [place], [place] 1833502-25-2025 23:17-0500 Systolic blood tbslhnon129 mm[Hg]Nato Lezama [address] [place], [place] 1833502-25-2025 21:47-0500Body texnbgznwin78.7 [degF]Nato Lezama [address] [place], [place] 1833502-25-2025 21:47-0500 Diastolic blood otzlwojp06 mm[Hg]Nato Lezama [address] [place], [place] 1833502-25-2025 21:47-0500Heart rate96 /Joanie Lezama [address] [place], [place] 1833502-25-2025 21:47-0500 Respiratory rate18 /Joanie Lezama [address] [place], [place] 1833502-25-2025 21:47-8626WgL4% (BldA) [Mass fraction]97 %Nato Lezama [address] [place], [place] 1833502-25-2025 21:47-0500 Systolic blood mm[Hg]Nato Lezama [facility]02-06-2025 09:58-0500Body znmzef922.88 cmAbelinolanden Lucasmarlenacher [employer] Work Phone: [phone]02-06-2025 09:58-0500 Body mass index (BMI) [Ratio]59.1 kg/n0Nylbwuij Lucasmarlenacher [employer] Work Phone: 1(635)295-[address] [place], [place] 7365102-06-2025 09:58-0500 Body wbjneptlqbd19.4 [degF]Leatha Emily [employer] Work Phone: [phone]02-06-2025 09:58-0500 Body yejgah512.76 kgAbelinolanden Quintanillaacher [employer] Work Phone: [phone]02-06-2025 09:58-0500 Diastolic blood mm[Hg]Leathasudheer Diaz [employer] Work Phone: [phone] [place], [place] 7365102-06-2025 09:58-0500 Heart cwbt650 /Zuleymalanden Quintanillaacher [employer] Work Phone: 1(863)528-[address] [place], [place] 7365102-06-2025 09:58-0500 Respiratory rate18 /Zuleymabelkismaryana Socorroacher [employer] Work Phone: 1(548)047-[address] [place], [place] 7365102-06-2025 09:58-0500 SaO2% (BldA) [Mass fraction]97 %Leatha Emily [employer] Work Phone: [phone]02-06-2025 09:58-0500 Systolic blood mm[Hg]Leatha Emily [employer] Work Phone: [phone]12-09-2024 08:25-0500 Body xfnhde962.88 cmAbelinolanden Quintanillaacher [employer] Work Phone: [phone] [place], [place] 7365112-09-2024 08:25-0500 Body mass index (BMI) [Ratio]58.1 kg/a5WdhxaiqnLeatha Zavalamarlenacher [employer] Work Phone: 1(071)[address] [place], [place] 8942912-09-2024 08:25-0500 Body wpxeiyrngra74.6 [degF]Leatha Zavalamarlenacher [employer] Work Phone: 1([phone])[address] [place], [place] 8942912-09-2024 08:25-0500 Body rhlmaz281.27 kgLeatha Zavalarbacher [employer] Work Phone: [phone] [place], [place] 8942912-09-2024 08:25-0500 Diastolic blood ulzqtbkl58 mm[Hg]Leatha Emily [employer] Work Phone: [phone])[address] [place], [place] 8942912-09-2024 08:25-0500 Heart rate89 /minAbelinolanden Zavalarbacher [employer] Work Phone: [phone] [place], [place] 8942912-09-2024 08:25-0500 SaO2% (BldA) [Mass fraction]98 %Leatha Patr [employer] Work Phone: [phone] [place], [place] 8942912-09-2024 08:25-0500 Systolic blood anjmutuo006 mm[Hg]Leatha Socorroacher [employer] Work Phone: [phone] [place], [place] 8942911-12-2024 11:15-0500 Diastolic blood opdunwjl54 mm[Hg]Leatha Patr [employer] Work Phone: [phone] [place], [place] 8942911-12-2024 11:15-0500 Heart rate84 /Zuleymabelkisifer Lucasrbacher [employer] Work Phone: [phone] [place], [place] 8942911-12-2024 11:15-0500 Respiratory rate16 /minAbelinolanden Zavalarbacher [employer] Work Phone: [phone])[address] [place], [place] 8942911-12-2024 11:15-0500 SaO2% (BldA) [Mass fraction]99 %Leatha Diaz [employer] Work Phone: [facility]11-12-2024 11:15-0500 Systolic blood mm[Hg]Leatha Diaz [employer] Work Phone: [facility]11-12-2024 09:53-0500 Body bxiido103.88 cmLeatha Diaz [employer] Work Phone: [facility]11-12-2024 09:53-0500 Body ylwdto725.43 kgLeatha Diaz [employer] Work Phone: [facility]10-17-2024 15:32-0400 Body jneyfb285.88 cmMer[facility]10-17-2024 15:32-0400Body mass index (BMI) [Ratio]57.1 kg/n0JasmirysfMercy Health Lorain Hospital10-17-2024 15:32-0400Body vnfvzfshyzo75.1 [degF][facility]10-17-2024 15:32-0400Body vhzetw574.96 kgMercy Health [facility] Hospital10-17-2024 15:32-0400Diastolic blood snsxixjo42 mm[Hg][facility] 02-25-2024 15:32-0400Heart rate73 /minMercy Health Lorain Hospital 02-25-2024 15:32-6509XkX2% (BldA) [Mass fraction]97 %[facility]10-17-2024 15:32-0400Systolic blood lfgebdjx922 mm[Hg][facility]10-01-2024 09:01-0400Body ihmdsw636.88 cmMercy Health [facility] Hospital10-01-2024 09:01-0400Body mass index (BMI) [Ratio]57.4 kg/m2 [facility]10-01-2024 09:01-0400Body lhluga218.09 kg [facility]10-01-2024 09:01-0400Diastolic blood mm[Hg][facility]10-01-2024 09:01-0400Heart hxca643 /min [facility]10-01-2024 09:01-0400Respiratory rate20 /min [facility]10-01-2024 09:0670NfM5% (BldA) [Mass fraction]94 %[facility]10-01-2024 09:0400Systolic blood cevvkigf667 mm[Hg][facility]09-19-2024 10:0400 Body ynyqhk019.88 cmMer[facility] Hospital09-19-2024 10:0400Body mass index (BMI) [Ratio]57.1 kg/j3LasepjpqsMercy Health Lorain Hospital09-19-2024 10:-040Body zeruferykpr08.8 [degF][facility]09-19-2024 10:040Body psujap934.96 kgMercy Health [facility] Hospital09-19-2024 10:0400Diastolic blood zdqwcerw76 mm[Hg][facility] 01-28-2024 10:Heart ooff308 /minMercy Health [facility] Hospital 01-28-2024 10:3046NdC4% (BldA) [Mass fraction]96 %[facility]09-19-2024 10:-0400Systolic blood yfnfsalb380 mm[Hg][facility]09-17-2024 10:-0400Body .9 cmBelen Langston MD Work Phone: [facility]09-17-2024 10:20-0400Body mass index (BMI) [Ratio]56.39 kg/y9SodqpdxhgljBelen Langston MD Work Phone: [facility]09-17-2024 10:20-0400Body hasmpo078.61 kgBelen Langston MD Work Phone: [facility]09-17-2024 10:20-0400Diastolic blood mm[Hg]Belen Langston MD Work Phone: [facility]09-17-2024 10:20-0400Heart rate 108 /minBelen Langstno MD Work Phone: [facility]09-17-2024 10:20-0400Systolic blood axreitfv776 mm[Hg]Belen Langston MD Work Phone: [facility]08-22-2024 10:31-0400Body enviez247.88 cmMer[facility] Health [facility] Hospital08-22-2024 10:31-0400Body mass index (BMI) [Ratio]56.2 kg/o8XjmqmrzlbMercy Health Lorain Hospital08-22-2024 10:31-0400Body lllqyr389.24 kgMercy Health [facility] Hospital08-22-2024 10:31-0400Diastolic blood exlwsxbl98 mm[Hg][facility] 12-31-2023 10:31-0400Heart rate97 /minMercy Health [facility] Hospital 12-31-2023 10:31-5003YjI9% (BldA) [Mass fraction]98 %[facility]08-22-2024 10:31-0400Systolic blood xdzkoiho917 mm[Hg][facility]07-31-2024 11:15-0400Body vfmjre412.88 cmMer[facility] Health [facility] Hospital07-31-2024 11:15-0400Body mass index (BMI) [Ratio]54.8 kg/m2 [facility]07-31-2024 11:15-0400Body ssjofq276.42 kg [facility]07-31-2024 11:15-0400Diastolic blood mm[Hg][facility]07-31-2024 11:15-0400Heart yxce105 /min [facility]07-31-2024 11:15-0400Respiratory rate20 /min [facility]07-31-2024 11:15-4755VqQ9% (BldA) [Mass fraction]98 %[facility]07-31-2024 11:15-0400Systolic blood mm[Hg][facility]07-01-2024 08:32-0400 Body gtfrga796.88 Krista Diaz Work Phone: [facility]07-01-2024 08:32-0400 Body mass index (BMI) [Ratio]53.8 kg/m2APRJyoti Zhang Lucasrbacher Work Phone: 1(140)[address]07-01-2024 08:32-0400 Body pjeqkq156.07 kgAPRJyoti Zavalarbacher Work Phone: 1(387)[address] [place], [place] 8[address]2907-01-2024 08:32-0400 Diastolic blood uwfwsekc70 mm[Hg][employer] Leatha Lucasrbacher Work Phone: 1(542)[address]07-01-2024 08:32-0400 Heart rate91 /minAPRJyoti Zhang Lucasrbacher Work Phone: 1(075)[address] [place], [place] 8[address]2907-01-2024 08:32-0400 SaO2% (BldA) [Mass fraction]98 %[employer] Leatha Lucasrbacher Work Phone: 1(432)[address] [place], [place] 8942907-01-2024 08:32-0400 Systolic blood rinwwpvc889 mm[Hg][employer] DEPARTMENT HEADJyoti Zhang Lucasrbacher Work Phone: 1(880)[address] [place], [place] 8[address]2906-13-2024 09:32-0400 Body xhbuib992.88 cmAPRJyoti Zhang Lucasrbacher Work Phone: 1(248)[address]06-13-2024 09:32-0400 Body mass index (BMI) [Ratio]54.5 kg/m2APRJyoti Zhang Lucasrbacher Work Phone: 1(299)[address]06-13-2024 09:32-0400 Body kibfgx635.37 kgAPRJyoti Zhang Lucasrbacher Work Phone: 1(031)[address] [place], [place] 8[address]2906-13-2024 09:32-0400 Diastolic blood hvjyfxuw59 mm[Hg][employer] Leatha Lucasrbacher Work Phone: 1(157)644[address]06-13-2024 09:32-0400 Heart ppvh218 /minAPRJyoti Leatha Lucasrbacher Work Phone: 1(419)[address] [place], [place] 8942906-13-2024 09:32-0400 Respiratory rate20 /minAPRJyoti Zhang Lucasrbacher Work Phone: 1(626)[address] [place], [place] 8[address]2906-13-2024 09:32-0400 SaO2% (BldA) [Mass fraction]95 %[employer] Leatha Lucasrbacher Work Phone: 1(838)[address] [place], [place] 8942906-13-2024 09:32-0400 Systolic blood yddzwoii071 mm[Hg][employer] HEAD Leatha Lucasrbacher Work Phone: 1(263)[address] [place], [place] 8942906-03-2024 15:58-0400 Body ogcvfa170.88 cmAPRJyoti Leatha Lucasrbacher Work Phone: 1(802)[address] [place], [place] 8942906-03-2024 15:58-0400 Body mass index (BMI) [Ratio]54.2 kg/m2APRJyoti Leatha Lucasrbacher Work Phone: 1(529)[address] [place], [place] 8942906-03-2024 15:58-0400 Body .43 kgAPRJyoti Leatha Lucasrbacher Work Phone: 1(899)[address] [place], [place] 8942906-03-2024 15:58-0400 Diastolic blood mm[Hg][employer] Leatha Lucasrbacher Work Phone: 1(361)[address] [place], [place] 8[address]2906-03-2024 15:58-0400 Heart dnop974 /minAPRJyoti Leatha Lucasrbacher Work Phone: 1(205)[address] [place], [place] 8[address]2906-03-2024 15:58-0400 SaO2% (BldA) [Mass fraction]98 %[employer] Leatha Lucasrbacher Work Phone: 1(147)[address] [place], [place] 8942906-03-2024 15:58-0400 Systolic blood bbwthajl760 mm[Hg]REUBEN Leatha Lucasrbacher Work Phone: 1(650)[address] [place], [place] 8942905-16-2024 14:27-0400 Body .88 cmAPRN Leathasudheer Zavalarbacher Work Phone: 1(179)295-[address] [place], [place] 7365105-16-2024 14:27-0400 Body mass index (BMI) [Ratio]53.4 kg/m2APRJyoti Zavlaarbacher Work Phone: 1(956)[address]05-16-2024 14:27-0400 Body ushqnm407.71 kgAPRJyoti Zavalarbacher Work Phone: 1(431)[address]05-16-2024 14:27-0400 Diastolic blood relukttc08 mm[Hg][employer] DE[employer] HEADJyoti Zavalarbacher Work Phone: 1(516)[address] [place], [place] 8[address]2905-16-2024 14:27-0400 Heart zttu541 /minAPRJyoti Zavalarbacher Work Phone: 1(565)[address] [place], [place] 8[address]2905-16-2024 14:27-0400 SaO2% (BldA) [Mass fraction]98 %[employer] DEPARTMENT HEADJyoti Quintanillaacher Work Phone: 1(944)[address] [place], [place] 8[address]2905-16-2024 14:27-0400 Systolic blood jvuawpmr855 mm[Hg][employer] DEPARTMENT HEADJyoti Zavalarbacher Work Phone: 1(719)[address] [place], [place] 8942905-02-2024 10:28-0400 Body yzbery889.88 cmAPRJyoti Zavalarbacher Work Phone: 1(681)[address] [place], [place] 8[address]2905-02-2024 10:28-0400 Body mass index (BMI) [Ratio]54.3 kg/m2APRJyoti Zavalarbacher Work Phone: 1(370)[address] [place], [place] 8942905-02-2024 10:28-0400 Body pbgkby668.6 kgAPRJyoti Zavalarbacher Work Phone: 1(043)[address] [place], [place] 8[address]2905-02-2024 10:28-0400 Diastolic blood ypymnwjb43 mm[Hg][employer] Leatha Zavalarbacher Work Phone: 1(041)[address]05-02-2024 10:28-0400 Heart hsjt304 /minAPRJyoti Zavalarbacher Work Phone: 1(688)977-58[facility]05-02-2024 10:28-0400 Respiratory rate20 /minAPRJyoti Zavalarbacher Work Phone: 1(973)[address]05-02-2024 10:28-0400 SaO2% (BldA) [Mass fraction]97 %[employer] DE[employer] HEADJyoti Zavalarbacher Work Phone: 1(245)[address]05-02-2024 10:28-0400 Systolic blood eflqmopk011 mm[Hg][employer] DE[employer] HEADJyoti Zavalarbacher Work Phone: 1(149)[address] [place], [place] 8942904-18-2024 10:38-0400 Body yxpsmj451.88 cmAPRJyoti Zavalarbacher Work Phone: 1(288)[address] [place], [place] 8[address]2904-18-2024 10:38-0400 Body mass index (BMI) [Ratio]54.5 kg/m2APRJyoti Zavalarbacher Work Phone: 1(634)[address] [place], [place] 8942904-18-2024 10:38-0400 Body yisypj528.34 kgAPRJyoti Zavalarbacher Work Phone: 1(479)[address] [place], [place] 8[address]2904-18-2024 10:38-0400 Diastolic blood ajqhwmrm95 mm[Hg][employer] DE[employer] HEADJyoti Zavalarbacher Work Phone: 1(888)[address]04-18-2024 10:38-0400 Heart hcrv019 /minAPRJyoti Zavalarbacher Work Phone: 1(523)[address] [place], [place] [address]04-18-2024 10:38-0400 SaO2% (BldA) [Mass fraction]98 %[employer] DE[employer] HEADJyoti Zavalarbacher Work Phone: 1(795)238[address]04-18-2024 10:38-0400 Systolic blood kmpvykov773 mm[Hg][employer] HEAD Leatha Zavalarbacher Work Phone: 1(401)[address]04-04-2024 10:02-0400 Body .88 cmDO Baljit Pisano Work Phone: 1(925)157-[address] [place], [place] 7695004-04-2024 10:02-0400 Body mass index (BMI) [Ratio]55.2 kg/m2DO Baljit Pisano Work Phone: 1(545)437-[address] [place], [place] 7695004-04-2024 10:02-0400 Body hnaqis953.75 kgDO Baljit Pisano Work Phone: 1(309)058-[address] [place], [place] 7695004-04-2024 10:02-0400 Diastolic blood toxcixkv51 mm[Hg]DO Baljit Pisano Work Phone: 1(564)[address]04-04-2024 10:02-0400 Heart rate99 /minDO Baljit Altobeam Work Phone: 1(139)[address]04-04-2024 10:02-0400 Respiratory rate20 /minDO Baljit Pisano Work Phone: 1(047)[address]04-04-2024 10:02-0400 SaO2% (BldA) [Mass fraction]96 %DO Baljit Pisano Work Phone: 1(715)6-[address] [place], [place] 7695004-04-2024 10:02-0400 Systolic blood nekytjjj127 mm[Hg]DO Baljit Pisano Work Phone: 1(458)[address]03-12-2024 09:16-0400 Body .9 cmPriya Shendge V, PA Work Phone: [facility]03-12-2024 09:16-0400Body mass index (BMI) [Ratio]55.2 kg/s7Xzhhm Shendge V, PA Work Phone: [facility]Vjntie12-33-7698 09:16-0400Body obcmih309.61 kgPriya Shendge V, PA Work Phone: [facility]03-12-2024 09:16-0400Heart rate 85 /minPriya Shendge V, PA Work Phone: [facility]03-12-2024 09:16-0400 Respiratory rate16 /minMagalie GoERLINDA Bartlett Work Phone: [facility]02-27-2024 13:25-0500Body pkrbav658.42 cmDO Baljit Pisano Work Phone: 1(671)[address]02-27-2024 13:25-0500 Body mass index (BMI) [Percentile] Per age and sex99.9 %DO Baljit Pisano Work Phone: 1(177)[address]02-27-2024 13:25-0500 Body mass index (BMI) [Ratio]53.1 kg/m2DO Baljit Pisano Work Phone: 1(124)[address]02-27-2024 13:25-0500 Body lculha790.79 kgDO Baljit Pisano Work Phone: 1(954)[address]02-27-2024 13:25-0500 Diastolic blood ihvcimup71 mm[Hg]DO Baljit Pisano Work Phone: 1(732)[address]02-27-2024 13:25-0500 Heart rate97 /minDO Baljit Altobeam Work Phone: 4(775)[address]02-27-2024 13:25-0500 SaO2% (BldA) [Mass fraction]98 %DO Baljit Pisano Work Phone: 5(794)732-[address] [place], [place] 7695002-27-2024 13:25-0500 Systolic blood cxtlqwel651 mm[Hg]DO Baljit Pisano Work Phone: 8(874)032-[address] [place], [place] 7695001-16-2024 14:15-0500 Body .42 cmImad Asaad Other [facility]01-16-2024 14:15-0500 Body mass index (BMI) [Ratio]51.45 kg/m2Imad Asaad Other [employer] Other 01-16-2024 14:15-0500Body uodnwy576.9 kgImad Asaad Other [facility]12-12-2023 13:45-0500 Body pihewn301.42 cmImad Asaad Other [employer] Other 12-12-2023 13:45-0500Body mass index (BMI) [Ratio] 51.84 kg/m2Imad Asaad Other [employer] Other 12-12-2023 13:45-0500Body afiuqz375.26 kgImad Asaad Other [employer] Other 12-12-2023 13:45-0500Diastolic blood dkwilkif78 mm[Hg] Imad Asaad Other [employer] Other 12-12-2023 13:45-0500Systolic blood tuhkoifj933 mm[Hg] Imad Asaad Other [employer] Other 11-09-2023 13:00-0500Body mnojtd309.42 cmImad Asaad Other [employer] Other 11-09-2023 13:00-0500Body mass index (BMI) [Ratio] 51.87 kg/m2Imad Asaad Other [employer] Other 11-09-2023 13:00-0500Body ebqrjg044.36 kgImad Asaad Other [employer] Other 11-09-2023 13:00-0500Diastolic blood mm[Hg] Imad Asaad Other 448.619.3184[employer]! Other 11-09-2023 13:00-0500Systolic blood jyxvqhnn34 mm[Hg] Imad Asaad Other [employer] Other 09-27-2022 10:55-0400Body ywynhb427.07 cmAallyn Fernando Other [employer] Other 09-27-2022 10:55-0400Body mass index (BMI) [Ratio] 44.55 kg/r1JjeikDevika King Other [employer] Other 09-27-2022 10:55-0400Body gdngtnxfkzi41.5 [degF]Devika King Other [employer] Other 09-27-2022 10:55-0400Body qlymis850.88 kgDevika King Other [employer] Other 09-27-2022 10:55-0400Respiratory rate18 /minDevika King Other [employer] Other 09-27-2022 10:55-6550FtF9% (BldA) [Mass fraction]97 % Devika King Other [employer] Other Encounters Encounter DateEncounter TypeCare ProviderFacilityStart: 03-01-2025 End: 44-74-6161gneewjvlmgQycctfxj Rohrbacher APRN Work Phone: [facility] 03-01-2025 End: 29-65-5411Jgwpfyk encounter procedureJelanden Diaz APRN PROFESSOR OF GERMAN-[facility] Work Phone: Start: 02-13-2025 End: 42-85-9689Psoivc outpatient visit 10 Swati Byrd [employer] DE[employer]MENT HEAD-PROFESSOR [employer]ER[employer] Work Phone: [facility] Physicians General SurgeryComment on above: Pilonidal disease (Primary Dx)Start: 02-13-2025 End: 55-78-2805pwbpugzykgXHEIYTZValley [facility] Start: 01-24-2025 End: 42-17-8205Xorfnxzpz encounterGail Shell MD Work Phone: [facility] Genito-Urinary SurgeonsStart: 01-24-2025 End: 45-98-9182zzygwwbdfaMAYVN E FUMOProMedica Paoli HospitalStart: 01-24-2025 End: 06-38-3195Gtwbph outpatient visit 25 Rahel Shell MD Work Phone: [facility] Physicians Genito-Urinary SurgeonsComment on above:Epididymal cyst (Primary Dx)Start: 01-19-2025 End: 93-81-7947Lvlqtebir encounterBree Dang AProMedica Physicians General SurgeryStart: 01-16-2025 End: 92-07-4512Jzlzsa follow up visit related to original Tete Byrd [employer] DEPARTMENT HEAD-PROFESSOR OF [employer]ER[employer] Work Phone: [facility] Physicians General SurgeryComment on above: Pilonidal disease (Primary Dx)Start: 01-16-2025 End: 78-86-1166rhxxdydatwPXISLAJValley Medical Center [facility] Start: 01-11-2025 End: 01-20-5747Hqjfhk outpatient new 30 minutesHeather Darcy [employer] DEPARTMENT HEAD-PROFESSOR OF [employer]MAN Work Phone: [facility] Physicians Genito-Urinary SurgeonsComment on above:Epididymal cyst (Primary Dx); Right hydroceleStart: 01-11-2025 End: 21-75-4766kczstcazqdMIKMDUU [facility] HospitalStart: 01-06-2025 End: 14-51-7078Qtqibrarq encounterEse Reyna CMAProMedica Physicians General SurgeryStart: 01-05-2025 End: 74-34-6612Wnbtww OnlyDean Atkins DO Work Phone: [facility] Sign InStart: 18-03-2366Dwo-patient / Non-visitCatherine Apolinar [facility] Work Phone: Start: 01-03-2025 End: 23-38-5294Szvvcdbez encounterEleanor Kruse [facility] Physicians General SurgeryStart: 01-02-2025 End: 06-77-4173Eplipcemct and management of inpatientLEATHA DIAZ [facility] Andersontart: 12-30-2024 End: 34-50-3714Fwnlhbshx encounterNatcalvin Dang [facility] Physicians General SurgeryStart: 12-29-2024 End: 70-94-1758Fkmozsvwt department patient visitLEATHA ZAVALABEBETOLima Memorial Hospital HospitalStart: 12-15-2024 End: 69-09-8867Wcvryko encounter procedurePm Pre-Admission Testing [address] [place] [address] - Pre AdmitStart: 80-89-2589Heexqbqcu for other preprocedural examinationDAAURORA MCELROYOur Lady of Mercy Hospital - Andersontart: 12-15-2024 End: 72-35-6079hiltjkiqstJJKNOTOBAthol Hospitaltart: 11-29-2024 End: 05-55-5029Kifpwb outpatient visit 15 minutesBelen Langston MD Work Phone: [facility] Physicians General SurgeryComment on above: Pilonidal disease (Primary Dx)Start: 11-29-2024 End: 97-25-7402nogkosvxzpCDFPKNSABTI M [facility] Start: 10-13-2024 End: 51-67-7368inefhsscmoTqvdauhpgHocking Valley [facility] Hospital Work Phone: Start: 10-13-2024 End: 82-08-7558Bohuwjb encounter procedureUriah Allen [facility] Work Phone: Start: 09-22-2024 End: 33-59-1376fuhrjzatctWjrfyjydaHocking Valley Community Hospital Work Phone: Start: 09-22-2024 End: 61-35-2509Rueyrky encounter procedureRandolph Health Physician [facility] Work Phone: Start: 08-31-2024 End: 49-42-8335cnlykieuxfGcizmltuvHocking Valley Community Hospital Work Phone: Start: 08-31-2024 End: 62-45-4276Bkeyvxw encounter procedureRandolph Health Physician [facility] Work Phone: Start: 08-29-2024 End: 60-70-3300ufywjervljRMHTJSGS ROHRBACHERProMedica Kila HospitalStart: 08-11-2024 End: 91-72-9628sldlxixkikIWNPMYVE ROHRBACHERProMedica Kila HospitalStart: 07-28-2024 End: 22-90-0800proymgulfdLGXQDQQV ROHRBACHERProMedica Kila HospitalStart: 07-26-2024 End: 83-32-7233mkztubvsoxINDB C BISOSKIProMedica Paoli HospitalStart: 07-11-2024 End: 67-12-9078Viubpdwmbk and management of inpatientJENNIFER ROHRBACHER [facility] HospitalStart: 93-12-8770Aot-patient / Non-visitRandolph Health Physician [facility] Work Phone: Start: 07-05-2024 End: 22-16-1284Edhxfaxjw department patient visitJohn Lise [facility] Start: 07-05-2024 End: 49-86-9945Oanixdtph department patient visitJENNIFER ROHRBACHERProMedica Kila HospitalStart: 06-16-2024 End: 66-76-8481qlglngejlqOpbbiuvf Rohrbacher GROUP FITNESS DEPARTMENT HEAD Work Phone: [facility] Work Phone: Start: 06-16-2024 End: 15-93-8556Fljidna encounter procedureLeatha Zavalamarlenbebetosai GROUP FITNESS DEPARTMENT HEAD Work Phone: [facility] Urgent Care Jacek Work Phone: Start: 04-26-2024 End: 34-85-6249wteqossiihLWHVOWQCQDDFerry County [facility] Start: 04-18-2024 End: 22-32-2212Usvnbcp encounter procedureLeatha Socorrobebetosai GROUP FITNESS DEPARTMENT HEAD Work Phone: [facility] Work Phone: Start: 67-24-4689Nsb-patient / Non-visitRabiamaryana Quintanillabebetosai GROUP FITNESS DEPARTMENT HEAD Work Phone: [facility] Gastroenterology Work Phone: Start: 03-22-2024 End: 05-49-9630Ussewiial to same day surgery centerLeatha Emily GROUP FITNESS DEPARTMENT HEAD Work Phone: [facility] Work Phone: Start: 03-22-2024 End: 73-44-4005wrzfxonxbhSkxsmanm Emily GROUP FITNESS DEPARTMENT HEAD Work Phone: [facility] Work Phone: Start: 02-25-2024 End: 77-79-4217plddyoxlezIujhmtmseSelect Medical [facility] Work Phone: Start: 02-25-2024 End: 54-36-1677Mnpmiso encounter procedureRandolph Health Physician Group-[facility] Work Phone: Start: 02-09-2024 End: 27-44-0969ihdiwbwwfoXjfnnotdmSelect Medical [facility]ty [facility] Work Phone: Start: 02-09-2024 End: 35-73-9001Qgrzsbb encounter procedureRandolph Health Physician Group-[facility] Work Phone: Start: 01-28-2024 End: 47-10-8115rvtwtxnrwcYdjiobpclSelect Medical Specialty [facility] Work Phone: Start: 01-28-2024 End: 21-97-2660Kdhcmlq encounter procedureRandolph Health Physician GroupK[facility]tering [facility] Work Phone: Start: 01-26-2024 End: 77-47-5063Xobdwi outpatient new 30 minutesBelen Langston MD Work Phone: [facility] General SurgeryComment on above: Pilonidal abscess (Primary Dx)Start: 01-24-2024 End: 51-97-8634Xnpewieve department patient visitKettering Memorial Hospitaltart: 01-21-2024 End: 58-57-3463Wbipbadef department patient visitKettering Memorial Hospitaltart: 12-31-2023 End: 06-08-7976gdtjqnxahyImfmmjsupSelect Medical [facility] Work Phone: Start: 12-31-2023 End: 89-41-5994Qoikdcn encounter procedureRandolph Health Physician GroupKettering Health [facility] Work Phone: Start: 12-15-2023 End: 83-54-1345hsiffgebhaCwlyjsuhsSelect Medical [facility]ty [facility] Work Phone: Start: 12-15-2023 End: 18-63-8253Yfywjvm encounter procedureRandolph Health Physician [facility] Work Phone: Start: 12-09-2023 End: 13-48-5740ceowpeoksoWerginfejHocking Valley Community Hospital Work Phone: Start: 12-09-2023 End: 41-93-7355Ufnxruw encounter procedureRandolph Health Physician [facility] Work Phone: Start: 11-09-2023 End: 31-06-4580otzaergniaONFOJordan Diaz Work Phone: [facility] Work Phone: Start: 11-09-2023 End: 73-09-9255Zejkzhp encounter procedureAPRN Leatha Emily Work Phone: [facility] Work Phone: Start: 10-22-2023 End: 21-88-9753xppdhpafnlOPOV Jennifer Emily Work Phone: [facility] Work Phone: Start: 10-22-2023 End: 84-76-2811Ecizolp encounter procedureAPRJyoti Zhang Emily Work Phone: [facility] Work Phone: Start: 10-12-2023 End: 89-86-7222gqiiqlggvtGDAY Jennifer Patr Work Phone: [facility] Work Phone: Start: 10-12-2023 End: 96-95-0109Yyopkvx encounter procedureAPRJyoti Zhang Emily Work Phone: [facility] Work Phone: Start: 09-24-2023 End: 46-46-4222Orapqmc encounter procedureAPRJyoti Zhang Emily Work Phone: [facility] Work Phone: Start: 09-10-2023 End: 43-55-2438Qtdzuvn encounter procedureAPRJyoti Zhang Emily Work Phone: [facility] Work Phone: Start: 08-27-2023 End: 01-70-8869ngmrgupytsSJEH Jennifer Emily Work Phone: [facility] Work Phone: Start: 08-27-2023 End: 61-11-0591Izfmmgm encounter procedureAPRJyoti Zhang Emily Work Phone: [facility] Work Phone: Start: 08-19-2023 End: 39-83-7871bwnocjalozLXHE Jennifer Rohrbacher Work Phone: [facility] Work Phone: Start: 08-19-2023 End: 91-56-3978Frjflxr encounter procedureAPRJyoti Diaz Work Phone: [facility] Work Phone: Start: 08-13-2023 End: 59-73-6956Prnvvti encounter procedureDO [facility] Work Phone: [facility]-Lab [facility] Work Phone: Start: 08-13-2023 End: 94-73-1053ctbkasbmysAK [facility] Work Phone: [phone] [place] [address] Work Phone: Start: 08-13-2023 End: 83-82-8664dfuphvdwzyYE [facility] Work Phone: [facility] Work Phone: Start: 08-13-2023 End: 22-43-8223Cowsfty encounter procedureDO Baljit [place] Work Phone: [facility] GroupCAP[facility] Work Phone: Start: 18-48-9686Aoc-patient / Non-visitDO Baljit [place] Work Phone: [facility] Work Phone: Start: 07-21-2023 End: 75-75-6843Azirpi outpatient new 30 minutesMagalie COFFEY Work Phone: [facility] RheumatologyComment on above: Positive TENA (antinuclear antibody) (Primary Dx); Chronic fatigue; Pain in both hands; Bilateral carpal tunnel syndromeStart: 46-29-1899Pkk-patient / Non-visitDO Baljit Pisano Work Phone: [facility] Work Phone: Start: 07-07-2023 End: 89-58-3958Recqzhw encounter procedureDO Baljit Pisano Work Phone: [facility] Work Phone: Start: 05-26-2023 End: 00-62-4470bfsynwgeeaJcst Asaad Other [employer] Other Start: 82-05-8593Dqbjzp outpatient visit 25 minutes Imad AsaadFPG GastroenterologyStart: 05-26-2023 End: 63-75-9548Wiecxvr encounter procedureDO Baljit Pisano Work Phone: [facility]-Start: 05-19-2023 End: 45-97-8816Wmwqckp encounter procedureDO Baljit Pisano Work Phone: [phone]-[facility] Work Phone: Start: 05-19-2023 End: 00-44-5880bgowkdcnrwCS Baljit Pisano Work Phone: [phone]-[facility] Work Phone: Start: 04-29-2023 End: 58-15-4022vrhslwakshEFCHIUR P HOUSEFacility:[facility] ClinicStart: 04-27-2023 End: 52-96-9523hwayqnhktjJjiw Asaad Other [employer] Other Start: 37-38-7534Lcerjopfg encounterImad AsaadFPG GastroenterologyStart: 04-21-2023 End: 93-08-4360Nprpoca encounter procedureDO Baljit Pisano Work Phone: [facility] [address] [place] Work Phone: Start: 04-21-2023 End: 93-81-8131fdjqqbfewpWA Baljit Pisano Work Phone: [facility] Work Phone: Start: 91-44-1164Ihsezc outpatient new 45 minutesImad AsaadFPG GastroenterologyStart: 04-07-2023 End: 02-87-7608ybqlmfilydEURQIJF P HOUSEFacility:[facility] ClinicStart: 04-01-2023 End: 04-00-0650ucbarsdpvyUN Baljit Pisano Work Phone: [facility] Work Phone: Start: 04-01-2023 End: 06-84-4282Ckprjpd encounter procedureDO Baljit Pisano Work Phone: [facility] Work Phone: Start: 03-23-2023 End: 36-14-7976awbhymmrheHqyx Asaad Other [employer] Other Start: 24-43-7329Waspdhres encounterImad AsaadFPG GastroenterologyStart: 06-16-4218Cukfzv outpatient new 45 minutesImad AsaadFPG GastroenterologyStart: 03-19-2023 End: 27-62-5290frumewcxxdAW Baljit Pisano Work Phone: [employer] Other Start: 03-19-2023 End: 86-66-8456Nhhwvbd encounter procedureDO Baljit Pisano Work Phone: [facility] [address] [place] Work Phone: Start: 02-12-2023 End: 17-79-4328ohypzdinnvUCNZMVL P HOUSEFacility:[facility]Start: 01-28-2023 End: 78-25-4102jgxhutzyotXJDUXDM P HOUSEFacility:[facility] ClinicStart: 01-09-2023 End: 21-25-5898slorawvsmzPZKMZOE P HOUSEFacility:[facility] HospitalStart: 01-07-2023 End: 14-28-1683suxxjsuhrwZYEBGOQ P HOUSEFacility:[facility] ClinicStart: 12-31-2022 End: 51-40-3041dvjdnisjejUTYQVGA P HOUSEFacility:University [facility] HospitalStart: 12-30-2022 End: 00-61-1978ujduhmjbyxYjwqod G Cadigan MDFacility:[facility] ClinicStart: 09-19-2022 End: 67-42-0495kpwwforffzWW BALJIT HOUSEFacility:V7Renxs: 09-15-2022 End: 54-91-0840uskrsdzcixRU BALJIT HOUSEFacility:C4Zsmsu: 07-03-2022 End: 22-99-3412okocacfpotSC BALJIT BRANDEISFacility:J2Bzsef: 02-04-2022 End: 56-91-5813yjoyodumbkTllza Keller Other [employer] Other Start: 48-02-6372Iubetp outpatient new 30 minutesAmber FernandoENCOMPASS HEALTH [facility] Urgent Care ClydeStart: 12-25-2017 End: 03-43-7652Qrwjlbf encounterCHARCHELY P HOUSENationSt. Francis Hospital Procedures DateProcedureProcedure DetailPerforming ClinicianStart: 03-22-2024 EsophagogastroduodenoscopyJennifer Emily HARRISONN Work Phone: Start: 64-44-0576Lrnysvrncma of thoracic spineDO [facility] Work Phone: Start: 58-56-1881Z-ray of both kneesDO [facility] Work Phone: Start: 49-96-2711Rrbasdhttw elastography of liverDO [facility] Work Phone: Plan of Treatment DateCare ActivityDetailAuthorStart: 61-94-5905XGcU,Tdap and Td Vaccines (8 - Td or Tdap)DTaP,Tdap and Td Vaccines (8 - Td or Tdap)[facility] [employer] SystemStart: 73-53-2435Ssmnp BMI ScreeningAdult BMI ScreeningProMedica Health SystemStart: 58-53-1418Qbffgzm ScreeningTobacco ScreeningProLima Memorial Hospitalca Health SystemStart: 64-11-8957Zamlk BMI ScreeningAdult BMI ScreeningProMedica Health SystemStart: 02-91-1988Kblewao ScreeningTobacco ScreeningProLima Memorial Hospitalca Health SystemStart: 78-07-6109Lmgij BMI ScreeningAdult BMI ScreeningProLima Memorial Hospitalca Health SystemStart: 39-69-5546Abmwonc ScreeningTobacco ScreeningRegency Hospital Toledoca Health SystemStart: 92-08-1409Avksztk ScreeningTobacco ScreeningRegency Hospital Toledoca Health SystemStart: 02-12-2556YOhX,Tdap and Td Vaccines (7 - Td or Tdap)DTaP,Tdap and Td Vaccines (7 - Td or Tdap)[facility] SystemStart: 09-80-1800Bcclb BMI ScreeningAdult BMI ScreeningProLima Memorial Hospitalca [facility] SystemStart: 46-24-1749Ttufzct ScreeningTobacco ScreeningRegency Hospital Toledoca Health SystemStart: 28-65-7614Rfdnm BMI ScreeningAdult BMI ScreeningRegency Hospital [facility]edoca Health SystemStart: 47-01-8976Uqrzqvw ScreeningTobacco ScreeningRegency Hospital Toledoca Health SystemStart: 57-38-2858Pglny BMI ScreeningAdult BMI ScreeningRegency Hospital [facility]ed[facility] SystemStart: 91-32-1195Faygiwk ScreeningTobacco ScreeningRegency Hospital [facility]ed[facility] SystemStart: 03-13-2025 End: 73-24-7274Dhwbkjb encounter dwgcqenoc10/03/2025 10:30 AM EST [facility] [address] [place] [address] Franci Byrd, GROUP FITNESS DEPARTMENT HEAD-PROFESSOR OF GERMAN [address] [place] [address] [facility] General SurgeryStart: 02-13-2025 End: 15-78-0454Knibeha encounter srzbawslf10/06/2025 10:15 AM EDT [facility] [address] [place] [address] Franci Byrd, GROUP FITNESS DEPARTMENT HEAD-PROFESSOR OF GERMAN [address] [place], [place] [address] [facility] General SurgeryStart: 33-42-2247Uwumu BMI ScreeningAdult BMI ScreeningOhioHealth Berger Hospital SystemStart: 50-45-2930Ieplzww ScreeningTobacco ScreeningOhioHealth Berger Hospital SystemStart: 01-24-2025 End: 16-95-2344Vjsizzm encounter wxokpvygw37/16/2025 9:30 AM EDT Office Visit [facility] [address] [place] [address] Gail Shell MD [address] [place] [address] [facility]ito-Urinary SurgeonsStart: 01-16-2025 End: 63-53-7328Otkofop encounter yorrffmmd19/08/2025 9:30 AM EDT Office Visit [facility] [address] [place], [place] Franci Byrd, GROUP FITNESS DEPARTMENT HEAD-PROFESSOR OF GERMAN [address] [place] [address] [facility] General SurgeryStart: 01-11-2025 End: 15-69-9515Hfqaukq encounter ztwplurds97/03/2025 10:30 AM EDT Office Visit [facility] [address] [place] [address] Gail Shell MD [address] [place] [address] [facility]-Urinary SurgeonsStart: 48-33-3646Ieqmxszgm vaccinationInfluenza VaccineOhioHealth Berger Hospital SystemStart: 01-02-2025 End: 68-69-5034Qrvabutkf to same day surgery borkvf1901/02/2025 10:00 AM EDT - 01/02/2025 11:00 AM EDT Surgery [facility] Surgery [address] [place] [address] Belen Langston MD [address] [place] [address] EXCISION CYST PILONIDAL [69865 (CPT )][facility] - Surgery Comment on above:EXCISION CYST PILONIDAL [12623 (CPT )]Start: 01-02-2025 End: 52-04-4199Almfppljjn ygwzqbqtelhl63/25/2025 10:00 AM EDT Anesthesia Event [facility] Surgery [address] [place] [address] Balaji Castelan, DO [address] [place] [address] [facility] Start: 01-02-2025 End: 29-51-8633Qaowksve pilonidal cyst/sinus simpleEXCISION CYST PILONIDAL pilonidal cyst 01/02/2025 10:00 AM EDTFREMONT SURGERYStart: 33-14-5668Nidtikzbqw hospital visit by tdtvloklp47/25/2025 10:00 AM EDT Hospital Encounter [facility] - Surgery [address] [place] [address] Belen Langston MD [address] [place] [address] [facility] SurgeryStart: 12-13-2024 End: 73-80-7086Ecgrfki encounter upbhuuyqd41/05/2025 8:15 AM EDT Procedure visit [facility] - Pre Admit [address] [place] [address] [phone] [facility] AdmitStart: 81-55-9941Lrvuxxb referralOhio Valley Hospital Work Phone: Start: 41-53-1383Tsiul BMI ScreeningAdult BMI ScreeningOhioHealth Berger Hospital SystemStart: 19-44-1625Xiklfxr ScreeningTobacco ScreeningProSouthwest General Health Center SystemStart: 80-28-8208DdouprxekAultman Orrville Hospitaltart: 03-08-2024 End: 69-43-2371Fjsltdz encounter xeyzkvnmo61/29/2024 8:30 AM EDT Office Visit [facility] [address] [facility] [address] [facility] [place] [place] Belen Langston MD [address] [place] [address] [facility] General SurgeryStart: 43-65-7035Zezvcpb [facility] Work Phone: Start: 93-40-9536Akiwthxfh vaccinationInfluenza VaccineOhioHealth Berger Hospital SystemStart: 10-22-2023 End: 54-95-1088Bdaonhpgmrav consultation with gwqmqfw0610/22/2023 9:30 AM EDT Telemedicine [facility] [address] [place] [address] [place] [address] [place] [address] [facility] RheumatologyStart: 10-91-3234[facility]df[facility] Work Phone: Start: 07-08-5979Baroqhe [Units/volume] in Serum or PlasmaAultman Orrville Hospitaltart: 07-21-2023 End: 36-76-0836ELWWKC Neurology Routine Pain in both hands Bilateral carpal tunnel syndrome Expected: 07/21/2023 (Approximate), Expires: 07/20/2024[facility] Work Phone: comment on above:Expected: 07/21/2023 (Approximate), Expires: 07/20/2024Start: 07-21-2023 End: 83-62-8185TS [employer] Survey ViewsMercy Health – The Jewish HospitalComment on above:Expected: 07/21/2023, Expires: 07/20/2024Start: 37-02-6835Ncapncrhy complement CH50 levelAultman Orrville Hospitaltart: 99-82-7350NAC antibody measurementAultman Orrville Hospitaltart: 71-98-5565IocsggfofAultman Orrville Hospitaltart: 65-34-1247HtkftllbmAultman Orrville Hospitaltart: 32-13-7066Fgcrszqzf vaccinationInfluenza VaccineFormerly [facility] Hospital [facility] Wake Countytart: 72-52-9285Ubwqi BMI Follow Up PlanAdult BMI Follow Up PlanFormerly [facility] Hospital of Wake Countytart: 98-91-6366Klelkhdtyl ScreeningDepression ScreeningMercy Health – The Jewish HospitalActin smooth muscle IgG Ab [Units/volume] in SerumMercy Health Lorain HospitalAlpha 1 antitrypsin [Mass/volume] in Serum or PlasmaMercy Health Lorain HospitalAlpha 1 antitrypsin phenotyping [Identifier] in Serum or Plasma by ImmunofixationMercy Health Lorain HospitalCeruloplasmin [Mass/volume] in Serum or PlasmaMercy Health Lorain HospitalComprehensive metabolic 2000 panel - Serum or PlasmaMercy Health Lorain HospitalCT Abdomen and Pelvis WO and W contrast [facility] HospitalCT Abdomen WO and W contrast [facility]-Rittman HospitalExcision spermatocele w/wo epididymectomySPERMATOCELECTOMY SpermatoceleTOLEDO SURGERY Fibrillarin Ab [Presence] in SerumMercy Health Lorain Hospital Hemoglobin.gastrointestinal [Presence] in StoolMercy Health Lorain Hospital Hepatitis A virus antibody, IgM [facility] HospitalHepatitis B core antibody measurementMercy Health Lorain HospitalHepatitis B core antibody measurement, IgM [facility] HospitalHepatitis B virus DNA [#/volume] (viral load) in Serum or Plasma by GITA with probe detection [facility] HospitalHepatitis B virus DNA [log units/volume] (viral load) in Serum or Plasma by GITA with probe detectionMercy Health Lorain HospitalHepatitis B virus DNA [Units/volume] (viral load) in Serum or Plasma by GITA with probe detectionMercy Health Lorain HospitalHepatitis B virus surface Ab [Presence] in SerumMercy Health Lorain HospitalHepatitis B virus surface Ab [Units/volume] in SerumMercy Health Lorain HospitalHepatitennova healthcare cleveland B virus surface Ag [Presence] in Serum or Plasma by ImmunoassayMercy Health Lorain HospitalHepatitis C virus IgG Ab [Presence] in Serum or Plasma by ImmunoassayMercy Health Lorain HospitalHFE gene mutations found [Identifier] in Blood or Tissue by Molecular genetics method NominalMercy Health Lorain HospitalHomogenous nuclear Ab pattern [Titer] in SerumMercy Health Lorain HospitalIgG [Mass/volume] in Serum or PlasmaMercy Health Lorain HospitalLipoprotein a [Moles/volume] in Serum or PlasmaMercy Health Lorain HospitalMitochondria M2 IgG Ab [Units/volume] in [facility] HospitalNuclear Ab [Titer] in [facility] Patient EducationHemorrhoids (DC) Esophagitis Know your [facility] Work Phone: Patient referralOhiohealth [facility] General [facility] Work Phone: PM-SCL extractable nuclear Ab [Mass/volume] in Serum by Immune diffusion (ID)[facility] HospitalRNA polymerase III IgG Ab [Units/volume] in Serum or Plasma by ImmunoassayMercy Health Lorain HospitalTh-To Ab [Units/volume] in Serum by Line blotMercy Health Lorain Hospital End: 11-21-7325Bawezdot Procedure / SurgeryUnlisted Procedure / Surgery Procedures Routine Pilonidal disease 1 Occurrences starting 11/29/2024until 11/29/2025[facility] Work Phone: Comment on above:1 Occurrences starting 11/29/2024 until 11/29/2025XR Ankle - right GE 3 [facility] CenterXR Foot - right GE 3 [facility] CenterXR Ribs - right Views [facility][note 3] Immunizations Immunization DateImmunizationNotesCare FdccdlssDvwepxen03-63-3150snltwdfwuqqwv oligosaccharide (groups A, C, Y and W-135) diphtheria toxoid conjugate vaccine (MCV4O)DO [employer] Work Phone: [phone] [place], [place] [address]695008-26-2016 meningococcal oligosaccharide (groups A, C, Y and W-135) diphtheria toxoid conjugate vaccine (MCV4O)DO [employer] Work Phone: [phone] [place], [place] 7695008-26-2016tetanus toxoid, reduced diphtheria toxoid, and acellular pertussis vaccine, adsorbedAPRN Leatha Diaz Work Phone: [facility]09-10-2015 meningococcal oligosaccharide (groups A, C, Y and W-135) diphtheria toxoid conjugate vaccine (MCV4O)DO [employer] Work Phone: [phone] [place], [place] [address]9-10-2015tetanus toxoid, reduced diphtheria toxoid, and acellular pertussis vaccine, adsorbedAPRN Leatha Stewartr Work Phone: [facility]08-21-2014poliovirus vaccine, inactivatedDO [employer] Work Phone: [phone] [place], [place] 7695003-12-2014diphtheria, tetanus toxoids and acellular pertussis vaccineDO [employer] Work Phone: [phone] [place], [place] 7695003-12-2014hepatitis A vaccine, pediatric/adolescent dosage, 2 dose scheduleDO [employer] Work Phone: [phone] [place], [place] 7695012-06-2013hepatitis B vaccine, pediatric or pediatric/adolescent dosageDO [employer] Work Phone: [phone] [place], [place] 7695012-06-2013poliovirus vaccine, inactivatedDO [employer] Work Phone: [phone] [place], [place] 7695012-06-2013varicella virus vaccineDO [employer] Work Phone: [phone] [place], [place] [address]695009-09-2013diphtheria, tetanus toxoids and acellular pertussis vaccineDO [employer] Work Phone: [phone]09-09-2013hepatitis B vaccine, pediatric or pediatric/adolescent dosageDO [facility] Work Phone: [phone] [place], [place] [address]2009-09-2013measles, mumps and rubella virus vaccineDO [facility] Work Phone: [phone] [place], [place] [address]2009-09-2013poliovirus vaccine, inactivatedDO [facility] Work Phone: [phone] [place], [place] [address]2008-20-2013hepatitis A vaccine, pediatric/adolescent dosage, 2 dose scheduleDO [facility] Work Phone: [phone] [place], [place] 5046708-06-2013diphtheria, tetanus toxoids and acellular pertussis vaccineDO [facility] Work Phone: [phone] [place], [place] [address]2008-06-2013hepatitis B vaccine, pediatric or pediatric/adolescent dosageDO [facility] Work Phone: [phone]08-06-2013measles, mumps and rubella virus vaccineDO [facility] Work Phone: [phone]08-06-2013poliovirus vaccine, inactivatedDO [facility] Work Phone: [phone] [place], [place] [address]2008-06-2013varicella virus vaccineDO [facility] Work Phone: [phone] [place], [place] 7695005-06-2004diphtheria, tetanus toxoids and acellular pertussis vaccine, unspecified formulationDO [facility] Work Phone: [phone] [place], [place] 7695005-06-2004haemophilus influenzae type b conjugate and Hepatitis B vaccineDO [facility] Work Phone: [phone] [place], [place] 7695005-06-2004 pneumococcal conjugate vaccine, 7 valentDO [facility] Work Phone: [phone] [place], [place] [address]695005-06-2004poliovirus vaccine, inactivatedDO [facility] Work Phone: [phone] [place] [address] Payers DatePayer CategoryPayerPolicy [id number] [facility] Care - OtherANTHEM Member Subscriber Plan / Payer (Effective 2024-Present) Name: Jet Duncan Relation to Subscriber: Self Name: Jet Duncan Payer ID: [id number] (NAIC) Type: Not on file Address: [address] [place] [id number]9Hwgncvq [id number] of Defense ( and others)[id number] [id number] of Defense ( and others)[id number] Department of Defense ( and others)[id number] of Defense ( and others) [facility] [id number] 05/11/2017-Present [phone] [address] [place] [address] .2.840.931502.1.13.424.2.7.3.876935.71120-14-3009Bqqkwawuej of Defense ( and others)[id number] of Defense ( and others)[id number] 2.16.840.1.526030.3.579.2.18415-06-6370Obqlknw1372143 2.16.840.1.913743.3.579.2.29562-67-2350Hilucln9896077 2.16.840.1.349217.3.579.[id number] 2.16.840.1.008156.3.579.2.75123-08-9706Gkboqwh50206708 2.16.840.1.733352.3.579.2.68799-16-2489Cyjuagz30281028 2.16.840.1.248102.3.579.2.51571-26-9292Zipepcv32579644 2.16840.1.770591.3.579.2.94738-97-8189Etmjcpi97465977 2.16840.1.165963.3.579.2.66223-27-8594Vuxjacq06835018 2.16.840.1.874523.3.579.2.39772-76-8164Bimolyr18335307 2.16.840.1.658660.3.579.2.38097-85-9535Cbbbogj58459783 2.16840.1.215848.3.579.2.55546-15-3691Iqyiywa96341681 2.16.840.1.948573.3.579.2.39708-24-9892Fxinoxg51659989 2.16.840.1.429535.3.579.2.34831-74-7274Gxbhdgv96812604 2.16.840.1.829706.3.579.2.88674-40-3072Akrmleu240789364 2.16.840.1.037109.3.579.2.236639-90-4577Wfuivlk295794862 2.16.840.1.221753.3.579.2.334975-28-4811Euztcls736180517 2.16.840.1.925760.3.579.2.137119-14-0392Ojzvlcc671472591 2.16.840.1.097877.3.579.2.721870-31-5721Zpqgyel160305615 2.16840.1.976328.3.579.2.157227-64-2568Sxyizim145140950 2.16840.1.286942.3.579.2.383319-79-2003Nlrdmyz024773075 2.840.1.845489.3.579.2.977980-71-1105Nbcoozu585684963 2.16840.1.062817.3.579.2.403922-10-4552Nkolqmw79845747 2.840.1.454798.3.579.2.515983-88-2498Sbfmowf29560105 2.840.1.172096.3.579.2.932023-79-7066Nyuywgt930669108 2.840.1.108899.3.579.2.549581-03-2235Vlovysx616381498 2.840.1.569734.3.579.2.592983-28-1643Hltyjxc412732299 2.16840.1.054387.3.579.2.879679-75-7065Zymezpf436262424 2.16840.1.285083.3.579.2.875188-23-1497Qoiysjk809390378 2.16840.1.062436.3.579.2.613542-27-0317Rimdtyr065522050 2.16840.1.924860.3.579.2.490363-78-9000Sbeyodq821356182 2.0.1.701974.3.579.2.508348-20-1510Cdeonoa825294560 2.16840.1.180319.3.579.2.249341-47-8611Msyewmq61947291 2.840.1.392852.3.579.2.851702-92-5666Todofleqro of Defense ( and others)[id number]syze of Defense ( and others)[id number] [id number] 2.16840.1.706372.3.579.2.499Uiraaxd56374948 2.16840.1.452890.3.579.2.698Lmvmplu11309572 2.0.1.867124.3.579.2.531 Yeoqgbt80803744 2.840.1.947221.3.579.2.531Worker's Comp Other Managed [employer] 1.2.840.047458.1.13.424.2.7.9.290931.313.315 Social History DateTypeDetailFacilityUnknown if ever smokedNorth [employer] Other Start: 06-21-2020 End: 07-59-7206Zzy Assigned At BirthFormerly [facility] Hospital [facility] Wake Countytart: 71-22-4103Xgv Assigned At [facility]: 08-13-2023 End: 73-97-0126Jhdhzvp smoking status NHISNever smoked tobacco (finding) [facility]tart: 12-14-2014 End: 36-55-8090WyjOcgs (finding)[facility]tart: 28-28-1013Docmypw use and exposureSmokeless tobacco non-userOhioHealth Berger Hospital SystemStart: 07-21-2023 End: 68-18-8375Jxgqllr intakeEx-drinker (finding)Formerly [facility] Countytart: 06-21-2020 End: 85-35-1935Zxudtyx of Social functionMercy Health – The Jewish HospitalChildcareUnknown Formerly [facility] Countytart: 48-00-5397Ybp Assigned At BirthNot on file Formerly [facility] Countytart: 01-26-2024 End: 74-85-0428Fzffmfmkb beverage intakeCurrent drinker of alcohol (finding) [facility] Countytart: 48-20-0359Tulxitn CommentoccasionallyProGlenbeigh HospitalTobacco smoking statusNo Smoking Status EnteredMadison Health Har the [employer], gas, oil, or water [employer] threatened to shut off services in your home in past 12MoNDetwiler Memorial Hospital System Goals DatePatient GoalDesired Activity/StatePersonal health goal Functional Status QquoHyqgwhksioZwcidaYaxrshyy11-00-7433Jgiumydbnc StatusN/[facility] Clinical Notes 02-04-2022 to 02-13-2025 Note Date & GdjeTrwkDkjvjoss85-38-0061 History of Present illness Narrative* Franci Byrd, GROUP FITNESS DEPARTMENT HEAD-JAKE - 02/13/2025 10:15 AM EDT Images from [...] 1 month. Pilonidal disease [L98.8] JESSICA URIARTE [facility] General Surgery Kila/Addy This note was created with the assistance of a speech recognition program. While intending to generate a timely document that accurately reflects the content of the visit, no guarantee can be provided that every grammatical or spelling mistake has been or will be identified or corrected. Thank you for your understanding. JESSICA Uriarte 02/13/25 1026 documented in this [facility]09-16-2025 Miscellaneous Notes* Telephone Encounter - Gail Shell MD - 01/24/2025 11:09 AM EDT Please schedule for right spermatocele ectomy, general, 90 minutes documented in this [facility]09-16-2025 Telephone encounter Note* Telephone Encounter - Gail Shell MD - 01/24/2025 11:09 AM EDT Please schedule for right spermatocele ectomy, general, 90 minutes [facility]09-16-2025 History of Present illness Narrative* Gail Shell MD - 01/24/2025 10:30 AM EDT Images from the original note were not included. [address] [facility] [address] Patient: Jet Duncan Date of : 2005 [...] 01/02/2025 Performed by Belen Langston MD at [facility] LAPAROSCOPIC APPENDECTOMY N/A 02/20/2022 Performed by Dean Atkins DO at [facility] Family History Problem Relation Age of Onset [...] you for your understanding. documented in this encounterMercy Health – The Jewish Hospital09-11-2025 Miscellaneous Notes* Telephone Encounter - TARA Franklin - 01/19/2025 2:17 PM EDT Called patient, received disability forms from [employer]. Unable to make contact with patient, left [...] Called patient, received disability forms from [employer]. Unable to make contact with patient, left [...] unavailable for his employer. documented in this encounterMercy Health – The Jewish Hospital09-11-2025 Telephone encounter Note* Telephone Encounter - Bere DangRINKURachid - 01/19/2025 2:17 PM EDT Called patient, received disability forms from [employer]. Unable to make contact with patient, left [...] restrictions are still unavailable for his employer. [facility]09-11-2025 Telephone encounter Note* Telephone Encounter - TARA Franklin - 01/19/2025 2:17 PM EDT Called patient, received disability forms from [employer]. Unable to make contact with patient, left [...] restrictions are still unavailable for his employer. [facility]09-08-2025 History of Present illness Narrative* JESSICA Uriarte - 01/16/2025 9:30 AM EDT Subjective Jet [...] 4 weeks. Pilonidal disease [L98.8] JESSICA URIARTE [facility]icians General Surgery Kila/Addy This note was created with the assistance of a speech recognition program. While intending to generate a timely document that accurately reflects the content of the visit, no guarantee can be provided that every grammatical or spelling mistake has been or will be identified or corrected. Thank you for your understanding. JESSICA Uriarte 01/16/25 0952 documented in this encounterMercy Health – The Jewish Hospital09-03-2025 History of Present illness Narrative* JESSICA Holder - 01/11/2025 10:30 AM EDT Images from the original note were not included. [address] [facility] [address] [address] Patient: Jet Duncan Date of : 2005 Encounter Date: 01/11/2025 History of Present Illness: Chief Complaint: Chief Complaint Patient presents with New Patient [facility] Er fu Epididymal cyst// Right hydrocele// [employer] The patient is a 19 y.o. [...] Medical History: Diagnosis Date Anxiety Bipolar disorder ([facility]) Depression Fibromyalgia Fibromyalgia, primary Fractures Headache Liver disease fatty liver Mood disorder Sleep apnea does not use a cpap URI, acute 07/03/2024 Visual impairment Past Surgical History: Procedure Laterality Date COLONOSCOPY ESOPHAGOGASTRODUODENOSCOPY EXCISION CYST PILONIDAL N/A 01/02/2025 Performed by Belen Langston MD at [facility] LAPAROSCOPIC APPENDECTOMY N/A 02/20/2022 Performed by Dean Atkins DO at [facility] Family History Problem Relation Age of [...] Right hydrocele - [facility] - [place], ÁLVARO Problem List Epididymal cyst - Primary Overview 01/11/25 Interested in surgical removal of cyst. Therefore, we will schedule him with Dr. Shell for further discussion. He declined exam today. Will defer to Dr Shell. I recommend ice, elevation, Nsaids for pain Follow-up: Dr hSell for surgical discussion JESSICA CONDE This note was created with the assistance of a speech recognition program. While intending to generate a timely document that accurately reflects the content of the visit, no guarantee can be provided that every grammatical or spelling mistake has been or will be identified or corrected. Thank you for your understanding. JESSICA Holder 01/12/25 0939 documented in this encounterMer[facility]08-29-2025 Miscellaneous Notes* Telephone Encounter - Ese Reyna CMA - 01/06/2025 9:18 AM EDT ----- Message from Dean Atkins DO sent at 01/05/2025 11:26 AM EDT ----- Regarding: RE: Excision of Pilonidal Cyst Ibuprofen 800 sent to his pharmacy. Make sure he does not have any history of ulcers or gastritis. Thanks, Tylenol as [id number]. ----- Message ----- From: Ese Reyna CMA Sent: 01/05/2025 11:22 AM EDT To: Dean Atkins DO Subject: Excision of Pilonidal Cyst Dr. Kian Dhaliwal excised this patient's pilonidal cyst on [...] as she is an approved contact for [facility]. Informed her of the medication prescribed by Dr. Atkins. Ranjith verbally understood. documented in this encounterSouthwestern [facility] CenterInvodo08-29-2025 Telephone encounter Note* Telephone Encounter - Ese Reyna CMA - 01/06/2025 9:18 AM EDT ----- Message from Dean Atkins DO sent at 01/05/2025 11:26 AM EDT ----- Regarding: RE: Excision of Pilonidal Cyst Ibuprofen 800 sent to his pharmacy. Make sure he does not have any history of ulcers or gastritis. Thanks, Tylenol as [id number]-bvcbnom. ----- Message ----- From: Ese Reyna CMA Sent: 01/05/2025 11:22 AM EDT To: Dean Atkins DO Subject: Excision of Pilonidal Cyst Dr. Kian Dhaliwal excised this patient's pilonidal cyst on Thursday. He called stating the OTC tylenol was not helping. Would you be willing to call him in a prescription for Tylenol or Ibuprofen to help him? Please let me know. Thank you, Ese [facility] Medical CenterPeepsOut Inc.[id number] Telephone encounter Note* Telephone Encounter - Ese Reyna CMA - 01/06/2025 9:18 AM EDT Left message for patient regarding prescription. [facility]08-29-2025 Telephone encounter Note* Telephone Encounter - Ese Reyna CMA - 01/06/2025 9:18 AM EDT Spoke with patient's mother Ranjith as she is an approved contact for [facility]. Informed her of the medication prescribed by Dr. Atkins. Ranjith verbally understood. [facility]08-26-2025 Miscellaneous Notes* Telephone Encounter - Eleanor [...] infection at this time. documented in this encounterMercy Health [facility]08-26-2025 Telephone encounter Note* Telephone Encounter - [...] no signs of infection at this time. [facility]08-22-2025 Miscellaneous Notes* Telephone Encounter - TARA [...] out and faxed toemployer. documented in this encounterMercy Health [facility]08-22-2025 Telephone encounter Note* Telephone Encounter - TARA Franklin - 12/30/2024 12:05 PM EDT Called patient to ask additional question regarding his disability/fmla forms. Unable to make contact with patient, left voicemail message for patient to call our office back. [facility]08-22-2025 Telephone encounter Note* Telephone Encounter - TARA Franklin - 12/30/2024 12:05 PM EDT Patient called back and questions were answered. Disability/FMLA forms were filled out and faxed toemployer. [facility]08-07-2025 Instructions* Patient Instructions* Kiera Inman RN - 12/15/2024 8:15 AM EDT Preoperative Education Checklist- General Surgery date: 01/02/25 Surgery time: 1000 a.m. Arrival time: 0800 a.m. 1. Bring a photo ID and your insurance card with you the day of surgery. You will check in at the main lobby of the [facility]- registration desk is straight ahead as soon as you walk in. Tell them you are here for surgery. 2. If you have a Living Will/Durable Power of Canvas Repairer for Health Care that is not on [...] after you have bathed. 5. NO nail burundian/acrylic on at least one finger. If you are having a hand, wrist or foot surgery then all nail burundian and artificial/acrylic nails must be removed from [...] please call the Preadmission Testing office at [phone], Mon.-Fri. 7 a.m.-3 p.m. Leave a voicemail [...] go swimming or use a hot tub (Mangstoruzzi), or perform activities where your incision is [...] appointment with your doctor. documented in this encounterMercy Health [facility]08-07-2025 Miscellaneous Notes* Perioperative Nursing Note - Kiera Inman RN - 12/15/2024 8:15 AM EDT Preoperative Education Checklist- General Surgery date: 01/02/25 Surgery time: 1000 a.m. Arrival time: 0800 a.m. 1. Bring a photo ID and your insurance card with you the day of surgery. You will check in at the main lobby of the [facility]- registration desk is straight ahead as soon as you walk in. Tell them you are here for surgery. 2. If you have a Living Will/Durable Power of Canvas Repairer for Health Care that is not on [...] after you have bathed. 5. NO nail burundian/acrylic on at least one finger. If you are having a hand, wrist or foot surgery then all nail burundian and artificial/acrylic nails must be removed from [...] please call the Preadmission Testing office at [phone], Mon.-Fri. 7 a.m.-3 p.m. Leave a voicemail [...] reviewed. Patient verbalized understanding. documented in this encounterMercy Health [facility]08-07-2025 Nurse Note* Perioperative Nursing Note - Kiera Inman RN - 12/15/2024 8:15 AM EDT Preoperative Education Checklist- General Surgery date: 01/02/25 Surgery time: 1000 a.m. Arrival time: 0800 a.m. 1. Bring a photo ID and your insurance card with you the day of surgery. You will check in at the main lobby of the [facility]- registration desk is straight ahead as soon as you walk in. Tell them you are here for surgery. 2. If you have a Living Will/Durable Power of Canvas Repairer for Health Care that is not on [...] after you have bathed. 5. NO nail burundian/acrylic on at least one finger. If you are having a hand, wrist or foot surgery then all nail burundian and artificial/acrylic nails must be removed from [...] please call the Preadmission Testing office at [phone], Mon.-Fri. 7 a.m.-3 p.m. Leave a voicemail [...] to the follow-up appointment with your doctor. [facility]08-07-2025 Nurse Note* Perioperative Nursing Note - Kiera Inman RN - 12/15/2024 8:15 AM EDT Hibiclens and surgical instructions reviewed. Patient verbalized understanding. [facility]07-22-2025 History of Present illness Narrative* Belen [...] Medical History: Diagnosis Date Anxiety Bipolar disorder ([facility]) Depression Fibromyalgia Fractures Mood disorder URI, acute 07/03/2024 Past Surgical History: Procedure Laterality Date COLONOSCOPY LAPAROSCOPIC APPENDECTOMY N/A 02/20/2022 Performed by Dean Atkins DO at [facility] Allergies Allergen Reactions Penicillins Hives Current [...] patient/family/caregiver Referring and communicating with other health ambulatory care coordinator Belen Langston MD [facility] Kila/Addy documented in this encounterMercy Health [facility]04-23-2025 Evaluation note* Diagnosis Onset Date Resolution Status Admit Date Anxiety acuteApril 2024 1:03pmDepressionacuteApril 2024 1:03pmBipolar disorderchronicApril 2024 1:03pm [facility] Work Phone: 1(499) 415-976204-23-2025 Evaluation note* Diagnosis Onset Date Resolution Status Admit Date Anxiety acuteApril 2024 1:03pmDepressionacuteApril 2024 1:03pmBipolar disorderchronicApril 2024 1:03pmAnxietyacuteMay 2024 8:56am DepressionacuteMay 2024 8:56amBipolar disorderchronicMay 2024 8:56am Rib pain on right side2024 8:25am [facility] Work Phone: 1(959) 160-999802-26-2025 Hospital Discharge instructions Patient Education 07/05/2024 23:18:30 [...] medicines to help relieve symptoms, such as: Srnx-dlm-itegqcy cold medicines. Cough suppressants. Coughing is a [...] and other clear broths. General instructions Take zzgo-ope-dwbxhhn and prescription medicines only as told by [...] and water are not available, use hand litigation secretary. Avoid touching your mouth, face, eyes, or [...] provider. Document Revised: 11/27/2021 Document Reviewed: 11/27/2021 [employer] Patient Education 2023 [employer] 07/05/2024 23:18:30 Otitis Media, Adult Otitis [...] pain. Follow these instructions at home: Take egez-nky-napyiqn and prescription medicines only as told by [...] provider. Document Revised: 08/05/2021 Document Reviewed: 08/05/2021 [employer] Patient Education 2023 [employer]. Follow Up Care 07/05/2024 21:47:00 With:Abbi JAY Address: [address] [place] [phone]- [phone] Business (1) When:07/08/2024 [facility] 02-25-2025 NoteED Patient Education Note ENT Otitis [...] Follow these instructions at home: ??? Take hstb-iqz-wytvxih and prescription medicines only as told by [...] provider. Document Revised: 08/05/2021 Document Reviewed: 08/05/2021 [employer] 3d Patient Education ? 2023 [employer] Infectious Disease Upper Respiratory Infection, Adult An [...] exposed to the virus (more content not included)...[facility]02-06-2025 Evaluation note* Diagnosis Onset Date Resolution Status Admit Date Sciatica, right side acuteFebruary 2024 9:39amAnxietyacuteApril 2024 1:03pmDepressionacute Kaila 2024 1:03pmBipolar disorderchronicApril 2024 1:03pm [facility] Work Phone: 1(396) 599-272612-09-2024 Evaluation note* Diagnosis Onset Date Resolution Status Admit Date Pilonidal cyst acuteDecember 2023 8:23amSciatica, right sideacuteFebruary 2024 9:39am [facility] Work Phone: 1(334) 286-598011-12-2024 [place] [address] EGD/Colonoscopy Procedure Signed Patient: Jet Duncan MR#: [id number] : 2005 Acct:[id number] Age/Sex: 18 / M Adm Date: 4 Loc: Room: Type: [facility] Attending Dr: Wilver Felton MD Copies to: MD Leatha Ribeiro APRN, PROFESSOR OF GERMAN~ EGD & Colonoscopy Date/Provider 03/22/2024 Wilver Felton [...] was slowly withdrawnwith the findings as below. [place] bowel prep score was good. Findings: Random [...] MD 03/22/24 1012 Signed By: 03/22/24 1039 [facility]11-12-2024 [place] [address] Gastroenterology H&P Signed Patient: Jet Duncan MR#: [id number] : 2005 Acct:[id number] Age/Sex: 18 / M Adm Date: 4 Loc: Room: Type: [facility] Attending Dr: Wilver Felton MD Copies to: MD Leatha Ribeiro APRN, CNP~ Date of Service: 03/22/2024 HISTORY & PHYSICAL: [...] an appropriate candidate for the procedure. Wilver Felotn M.D. Documented By: Wilver Felton MD 03/22/24 1010 Signed By: 03/22/24 1012 [facility]11-01-2024 History and physical note Author Wilver Felton [facility] HospitalNote Date/TimeNovember 2023 10:12am [place] [address] Gastroenterology H&P Signed Patient: Jet Duncan MR#: [id number] : 2005 Acct:[id number] Age/Sex: 18 / M Adm Date: 4 Loc: Room: Type: [facility] Attending Dr: Wilver Felton MD Copies to: MD Leatha Ribeiro APRN, PROFESSOR OF GERMAN~ Date of Service: 03/22/2024 HISTORY & PHYSICAL: [...] signed by Wilver Felton MD> 03/22/24 1012 [facility] Work Phone: 1(461) 544-972510-01-2024 Evaluation note* Author Kareem Tijerina [facility] HospitalAuthoredOctober 2023 8:48amHighest weight: 407.5 lbs. Up 16.3lbs [...] is going to start working with a radiation therapy technician. 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 6. 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 Salivary cortisol x 2 ordered. [facility] Work Phone: 1(168) 816-652609-17-2024 History of Present illness Narrative* Belen Langston [...] Medical History: Diagnosis Date Anxiety Bipolar disorder ([facility]) Depression Fractures Mood disorder ([facility]) Past Surgical History: Procedure Laterality Date LAPAROSCOPIC APPENDECTOMY N/A 02/20/2022 Performed by Dean Atkins DO at [facility] Allergies Allergen Reactions Penicillins Hives Current [...] patient/family/caregiver Referring and communicating with other health ambulatory care coordinator Belen Langston MD [facility] General [facility] Kila/Addy documented in this encounterMercy Health [facility]08-06-2024 Evaluation note* Author Molly Kulkarni [facility] HospitalAuthoredAugila regional medical center 2023 9:40amPatient has been NPO other than [...] the results will be discussed with the Motion Picture Cameraman. 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 6. 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 Salivary cortisol x 2 ordered. [facility] Work Phone: 1(214) 876-121508-06-2024 Evaluation note* Author Molly Kulkarni [facility] HospitalAuthoredJanettegusalessandra 2023 9:40amPatient has been NPO other than [...] the results will be discussed with the Motion Picture Cameraman. 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 6. 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 Author Zaida Frias [facility] HospitalAuthoredOctober 2023 9:20amHighest weight: 407.5 lbs. 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 6. 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 Salivary cortisol x 2 ordered. [facility] Work Phone: 1(356) 739-731908-06-2024 Evaluation note* Author Molly Kulkarni [facility] HospitalInderjithoHa 2023 9:40amPatient has been NPO other than [...] the results will be discussed with the Motion Picture Cameraman. 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 6. 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 Author Kareem Tijerina [facility] HospitalAuthoredOctober 2023 9:48amHighest weight: 407.5 lbs. Up 16.3lbs [...] is going to start working with a radiation therapy technician. 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 6. 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 Salivary cortisol x 2 ordered. 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 6. 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 6. 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 6. 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 Salivary cortisol x 2 ordered/pending. 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 6. 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 Author Molly Kulkarni [facility] HospitalMaryam 2023 9:40amPatient has been NPO other [...] the results will be discussed with the Motion Picture Cameraman. 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 6. 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 Salivary cortisol x 2 ordered. 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 6. 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 Handout given. Our free weekly [...] and benefits of prescribed meds discussed. Initial cegw-br-jdcu interview/evaluation. The patient was counseled in detail on the options for weight loss in an individual setting. 55 minutes was spent caring for the patient, counseling/educating patient on the options for the treatment of obesity and related healthcare issues. The program's treatment goals were reviewed with the patient. Each aspect of the program was discussed with the patient. 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 6. 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 Handout given. Our free weekly [...] and benefits of prescribed meds discussed. Initial orsj-fj-meaq interview/evaluation. The patient was counseled in detail on the options for weight loss in an individual setting. 55 minutes was spent caring for the patient, counseling/educating patient on the options for the treatment of obesity and related healthcare issues. The program's treatment goals were reviewed with the patient. Each aspect of the program was discussed with the patient. 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 6. 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 Salivary cortisol x 2 ordered/pending. 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 6. 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 Handout given. Our free weekly [...] and benefits of prescribed meds discussed. Initial pzkk-gj-havd interview/evaluation. The patient was counseled in detail on the options for weight loss in an individual setting. 55 minutes was spent caring for the patient, counseling/educating patient on the options for the treatment of obesity and related healthcare issues. The program's treatment goals were reviewed with the patient. Each aspect of the program was discussed with the patient. 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 6. 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 6. 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 Salivary cortisol x 2 ordered/pending. 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 6. 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 Handout given. Our free weekly [...] and benefits of prescribed meds discussed. Initial iclm-yi-fzco interview/evaluation. The patient was counseled in detail on the options for weight loss in an individual setting. 55 minutes was spent caring for the patient, counseling/educating patient on the options for the treatment of obesity and related healthcare issues. The program's treatment goals were reviewed with the patient. Each aspect of the program was discussed with the patient. 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 6. 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 He notes in high school he put on a lot of weight but was active in 3 sports but had a very poor diet at home and had a job so could go by his own fast foods. He notes nothing healthy . He notes that the beginning of COVID he started a keto diet and during [...] on a mood stabilizing medication. 6. 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 Salivary cortisol x 2 ordered/pending. [facility] Work Phone: 1(171) 813-532103-12-2024 History of Present illness Narrative* ERLINDA Cooper - 07/21/2023 9:30 AM EDT Images from the original note were not included. [address] [address] Date of Service: 07/21/2023 Thank you for [...] 02/20/2022 Performed by Dean Atkins DO at [facility] reviewed. Social History Tobacco Use Smoking status: Never Smokeless tobacco: Never Vaping Use Vaping Use: Never used Substance Use Topics Alcohol use: Not Currently Drug use: Never reviewed. Past Medical History: Diagnosis Date Anxiety Bipolar disorder ([facility]) Depression Fractures Mood disorder ([facility]) reviewed. Social History Social History Narrative Not [...] Admits: [x] Chest pain: went to ER [place], did EKG, concluded as a muscle cramp [...] Judgement/insight intact. Musculoskeletal: b/l tender trigger points 14/18 Neck: Full ROM. no swelling, No tenderness, [...] CK was normal urine exam was normal DEVELOPMENTAL MATHEMATICS INSTRUCTOR, anti Newberry antibody, scleroderma 70 antibody, complement C3-C4, centromere antibodies, p.m. Scl antibody, andree p.m. Scl antibody, anti dsDNA antibody, U3 DEVELOPMENTAL MATHEMATICS INSTRUCTOR were all negative/ normal THC you antibody, [...] or corrected. Thank you for your understanding. [facility] Maglaie Cox PA-C [address] [place] [address] Office [phone] ERLINDA Cooper 07/21/23 [id number] ERLINDA Cooper 07/21/23 [id number] documented in [facility] Evaluation note* Encounter Date Diagnosis Assessment Notes Treatment Notes Treatment Clinical Notes May, Elevated LFTs (ICD-10 - R79.89) The liver studies are all within normal limits. May,Fatty liver (ICD-10 - K76.0)Plan for repeat fibroscan in one year for routine surveillance. [facility] Other 12-12-2023 Evaluation note* Encounter Date Diagnosis Assessment Notes Treatment Notes Treatment Clinical Notes Apr, Fatty liver (ICD-10 - K76.0) Apr,Elevated LFTs (ICD-10 - R79.89) Apr,Hepatitis A test positive (ICD-10 - B15.9) Apr,Fatigue, unspecified type (ICD-10 - R53.83) [facility] Other 11-09-2023 Evaluation note* Encounter Date Diagnosis Assessment Notes Treatment Notes Treatment Clinical Notes Mar, Hepatitis A test positive (ICD-1 0 - B15.9) f/u after testing Mar,Elevated LFTs (ICD-10 - R79.89) Mar,Fatty liver (ICD-10 - K76.0) [facility] [employer] Other 09-27-2022 Evaluation note* Encounter Date Diagnosis [...] treatment plan. Patient left in stable condition [facility] [employer] Other Chiht complaint+Reason for visit Narrative* Chief Complaint 1 Month Follow Up Stomach Issues Amb Documentation [place]-Referral Leatha Diaz k76.0 r73.9 k76.0Reason for VisitFamily history of Luis thyroiditis Fatigue Fatty liver Multiple joint pain Obesities, morbid Sleep disturbance Vitamin D deficiency Abnormal weight gain Fatty liver Sleep disturbance Bipolar disorder [facility] Work Phone: Chity complaint+Reason for visit Narrative* Chief Complaint Stomach Issues Amb Documentation [place]-Referral Leatha Diaz k76.0 r73.9 k76.0 chest congestionReason for VisitFamily history of Luis thyroiditis Fatigue Fatty liver Multiple joint pain Obesities, morbid Sleep disturbance Vitamin D deficiency Abnormal weight gain Fatty liver Sleep disturbance Bipolar disorder Bronchitis Maxillary sinusitis [facility] Work Phone: Chief complaint+Reason for visit Narrative* Chief Complaint Amb Documentation [place]-Referral Leatha Diaz k76.0 r73.9 k76.0 chest congestion knee issues Mental concernsReason for VisitAbnormal weight gain Fatty liver Sleep disturbance Bipolar disorder Bronchitis Maxillary sinusitis Adult BMI 50.0-59.9 kg/sq m Fatty liver Mixed hyperlipidemia Vitamin D deficiency Bipolar disorder Left knee pain Right knee pain Depression [facility] Work Phone: Chief complaint+Reason for visit Narrative* Chief Complaint [place]-Referral Abelino Diaz k76.0 r73.9 k76.0 chest congestion knee issues Mental concerns 4 week follow upReason for VisitAbnormal weight gain Fatty liver Sleep disturbance Bipolar disorder Bronchitis Maxillary sinusitis Adult BMI 50.0-59.9 kg/sq m Fatty liver Mixed hyperlipidemia Vitamin D deficiency Bipolar disorder Left knee pain Right knee pain Depression Adult BMI 50.0-59.9 kg/sq m Fatty liver Mixed hyperlipidemia Tachycardia Depression [facility] Work Phone: Evaluation + Plan note No data available for this section [facility] Evaluation noteNo assessment information available [facility] Work Phone: Evaluation noteNo InformationNort [employer] Other Evaluation note* Author Zaida Frias [facility] HospitalAuthoredApril 2023 10:38amAssessment: Highest weight: 407.5 lbs Start [...] Our exercise program was recommended with our director appointment/obesity exercise group. Handout given. Our free weekly [...] and benefits of prescribed meds discussed. Initial ruvt-pz-gizk interview/evaluation. The patient was counseled in detail on the options for weight loss in an individual setting. [ ] minutes was spent caring for the patient, counseling/educating patient on the options for the treatment of obesity and related healthcare issues. The program's treatment goals were reviewed with the patient. Each aspect of the program was discussed with the patient. [facility] Work Phone: Evaluation note* Diagnosis Positive TENA (antinuclear antibody)- Primary Other and unspecified nonspecific immunological findings Chronic fatigue Other malaise and fatigue Pain in both hands Bilateral carpal tunnel syndrome Carpal tunnel syndrome documented in this encounter [facility]* Diagnosis Pilonidal abscess- Primary Pilonidal cyst with abscess documented in this encounter [facility]* Diagnosis Pilonidal disease- Primary documented in this encounter [facility]* Diagnosis Epididymal cyst- Primary Other specified disorder of male genital organs Right hydrocele Unspecified hydrocele documented [facility]* Diagnosis Pilonidal disease- Primary documented [facility]* Diagnosis Epididymal cyst- Primary Other specified disorder of male genital organs documented [facility] encounter [facility] Diagnosis Onset Date Resolution Status Admit Date Ankle pain, right acuteOctober 2024 8:30amFatty liveracuteOctober 2024 8:30amMixed hyperlipidemiaacuteOctober 2024 8:30amRight foot painacuteOctober 2024 8:30am [facility] Work Phone: Hiscixm general Narrative - Reported* Type Description Date Medical History bi polar [facility] Other Hisqekl general Narrative - Reported* Type Description Date Medical History bi polar Surgical Historyappendectomy [facility] Other Hisnyvc general Narrative - Reported* Type Description Date Medical History bi polar Surgical HistoryappendectomyHospitalization Historysee above [facility] Other Hospital Discharge instructionsAmbulatory Orders* Referral to Psychiatry Time Frame: 08/31/24, Location: None Selected [facility] Work Phone: Instructions* Attachments The following attachments cannot be sent through Care Everywhere. * Carpal tunnel syndrome (Telugu) * Fibromyalgia (Telugu) * Gabapentin, ADULT (Telugu) * Duloxetine, ADULT (Telugu) * Meloxicam, ADULT (Telugu) documented in this encounterProSouthwest [facility] SystemInstructionsNot on file documented in this encounterProSouthwest General Health Center SystemInstructionsNot on file documented in this encounterProSouthwest [facility] SystemInstructionsNot on file documented in this encounterProMedica Health SystemInstructionsNot on file documented in this encounterProSouthwest [facility] SystemInstructionsNot on file documented in this encounterProSouthwest [facility] SystemInstructionsNot on file documented in this encounterProSouthwest [facility] SystemInstructionsNot on file documented in this encounterProSouthwest General Health Center SystemProgress note No data available for this section [facility] Reason for referral (narrative)No reason for referral information availableOhio [facility] Hospital Work Phone: Reason for visit NarrativePATIENT IS HERE AT THE REQUEST OF DR. PISANO FOR HEP INFECTION AND ELEVATED LIVER ENZYMES. US REGAN BL ADDER IN PT DOCS-LABS IN REFERRAL NOTESNojohn j. [facility] Other Summary Purpose Family History Relationship Condition [...] history Unknown motherFibromyalgiaUnknownDisorder of thyroidUnknown Advance Directives Advance Directive Response Recorded Date/ Time Advance Directives No December 18, 2018 8:54am Advance Directive Response Recorded Date/ Time Advance Directives No December 18, 2018 9:54am Code StatusDate ActivatedDate InactivatedCommentsFull Code02/20/2022 8:51 AM 02/20/2022 1:58 PMDate ActivatedDate HsljdhgxvwwNrugungn72/13/2022 8:51 AM 02/20/2022 1:58 PMDate ActivatedDate InactivatedComments07/11/2024 8:34 PM07/15/2024 7:44 PMDate ActivatedDate IuhlupgswxxZoublpjq96/13/2022 8:51 AM10/ 1:58 PMDate ActivatedDate InactivatedComments07/11/2024 8:34 PM07/15/2024 7:44 PMDate ActivatedDate AsjfpgvlzswNmzjaiws09/13/2022 8:51 AM02/20/2022 1:58 PM Chief Complaint and [...] Amb Documentation [place]-Referral Leatha Diaz k76.0 r73.9 k76.0Reason for VisitFamily [...] right side October 13, 2024 8: 25am Chief Complaint Admit Date Amb Documentation January 04, 2025 9: 27am R Ankle Swelling March 01, 2025 8 :30am Reason for Visit Admit Date Ankle pain, right March 01, 2025 8 :30am Fatty liver March 01, 2025 8 :30am Mixed hyperlipidemia March 01, 2025 8:30am Right foot pain March 01, 2025 8 :30am Reason for Referral SpecialtyDiagnoses / ProceduresReferred By ContactReferred To Contact Diagnoses Pain in both hands Bilateral carpal tunnel syndrome Procedures [facility] Magalie Cox PA [address] [facility] [address] [place] [address] Referral IDStatusReasonStart DateExpiration DateVisits RequestedVisits [id number] Review Reason CONSULT Diagnosis 1 Fatigue (R53.83) [...] section and content) DATE CREATED AUTHOR 01/06/2018 [facility] DATE CREATED AUTHOR AUTHOR'S ORGANIZ ATION 04/19/2021 [facility] DATE CREATED AUTHOR AUTHOR'S ORGANIZ ATION 05/02/2021 [facility] 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 CREATED AUTHOR AUTHOR'S ORGANIZ ATION 09/22/2022 [facility] DATE CREATED AUTHOR AUTHOR'S ORGANIZ ATION 06/22/2023 [facility] DATE CREATED AUTHOR AUTHOR'S ORGANIZ ATION 04/02/2024 [facility] DATE CREATED AUTHOR AUTHOR'S ORGANIZ ATION 07/07/2024 [facility] DATE CREATED AUTHOR AUTHOR'S ORGANIZ ATION 01/08/2025 [facility] DATE CREATED AUTHOR AUTHOR'S ORGANIZ ATION 01/12/2025 [facility] DATE CREATED AUTHOR AUTHOR'S ORGANIZ ATION 01/25/2025 [facility] DATE CREATED AUTHOR AUTHOR'S ORGANIZ ATION 02/15/2025 [facility] REASON FOR VISIT (unrecogniz ed section and content) ReasonCommentsNew IeewslaU77.50- Pain in unspecified joint R53.83 - Other fatigue R76.8- Other specified abnormal immunological findings in serumReason CommentsCystPilonidal cyst, [facility] 01/21/24ReasonCommentsCystRECURRENT PILONIDAL CYSTReasonCommentsNew PatientIOC Er fu Epididymal cyst// Right hydrocele// [place] BCBSSpecialtyDiagnoses / ProceduresReferred By ContactReferred To Contact Urology Diagnoses Epididymal cyst Right hydrocele Tyler Bolton MD [address] [address] Phone: tel: fax: [facility] [address] [place] [address] Phone: tel: fax: Referral IDStatusReasonStart DateExpiration DateVisits RequestedVisits [id number] Review Specialty Services Required /[id number]-fqXrjl op excision of pilonidal cyst performed 01/02/25 at PMHReasonCommentssurgical discussion Care Teams (unrecognized sec tion and [...] Member Role Status Dates Leatha Diaz APRN BUSINESS PROCESS ASSOCIATE-C Primary Care Provider Active Team Status: Inactive Member Role Status Dates Baljit Pisano DO Primary Care Provider Active Start: May 19, 2023 End: May 19Genesis Ibarra ProviderActiveStart: May 19, 2023 End: May 19, 2023 Team Status: Inactive Member Role Status Dates Wilver Felton MD Attending Provider Active Start: May 26, 2023 End: May 26, 2023 Team Status: Inactive Member Role Status Dates Leatha Diaz APRN BUSINESS PROCESS ASSOCIATE-C Primary Care Provider, Attending Provider Active Start: July 07, 2023 End: July 07, 2023 Team Status: Active Member Role Status Dates Leatha Diaz APRN BUSINESS PROCESS ASSOCIATE-C Primary Care Provider, Attending Provider Active Start: July 08, 2023 Team Status: Active Member Role Status Dates Leatha Diaz APRN BUSINESS PROCESS ASSOCIATE-C Primary Care Provider Active Start: August 07, 2023 Montserrat Cardoza ProviderActiveStart: August 07, 2023 Team Status: Inactive Member Role Status Dates Leatha Diaz APRN BUSINESS PROCESS ASSOCIATE-C Primary Care Provider Active Start: August 13, 2023 End: August 12Genesis Portillo ProviderActiveStart: August 13, 2023 End: August 13, 2023 Team Status: Active Member Role Status Dates Leatha Diaz APRN BUSINESS PROCESS ASSOCIATE-C Primary Care Provider Active Start: August 07, 2023 Erick Rogers ProviderActiveStart: August 07, 2023 Team Status: Inactive Member Role Status Dates Leatha Diaz APRN BUSINESS PROCESS ASSOCIATE-C Primary Care Provider Active Start: August 19, 2023 End: August 18ROS Tolentino ProviderActiveStart: August 19, 2023 End: August 19, 2023 Team Status: Inactive Member Role Status Dates Leatha Diaz APRN BUSINESS PROCESS ASSOCIATE-C Primary Care Provider, Attending Provider Active Start: August 27, 2023 End: August 27, 2023 Team Status: Inactive Member Role Status Dates Leatha Rohrbacher , GROUP FITNESS DEPARTMENT HEAD BUSINESS PROCESS ASSOCIATE-C Primary Care Provider Active Start: September 10, 2023 End: September 09johnathan Tijerina MDAttending ProviderActiveStart: September 10, 2023 End: September 10, 2023 Team Status: Inactive Member Role Status Dates Leatha Diaz APRN BUSINESS PROCESS ASSOCIATE-C Primary Care Provider, Attending Provider Active Start: September 24, 2023 End: September 24, 2023 Team Status: Inactive Member Role Status Dates Leatha Diaz APRN BUSINESS PROCESS ASSOCIATE-C Primary Care Provider, Attending Provider Active Start: October 12, 2023 End: October 12, 2023 Team Status: Active Member Role Status Dates Leatha Diaz APRN BUSINESS PROCESS ASSOCIATE-C Primary Care Provider Active Start: August 07, 2023 Erick Meier ProviderActiveStart: August 07, 2023 Team Status: Inactive Member Role Status Dates Leatha Diaz APRN BUSINESS PROCESS ASSOCIATE-C Primary Care Provider Active Start: October 22, 2023 End: October 21johnathan Tijerina MDAttending ProviderActiveStart: October 22, 2023 End: October 22, 2023 Team Status: Inactive Member Role Status Dates Leatha Diaz APRN BUSINESS PROCESS ASSOCIATE-C Primary Care Provider, Attending Provider Active Start: November 09, 2023 End: November 09, 2023 Team Status: Inactive Member Role Status Dates Leatha Diaz APRN BUSINESS PROCESS ASSOCIATE-C Primary Care Provider Active Start: December 09, 2023 End: December 08johnathan Tijerina MDAttending ProviderActiveStart: December 09, 2023 End: December 09, 2023 Team Status: Inactive Member Role Status Dates Leatha Diaz APRN BUSINESS PROCESS ASSOCIATE-C Primary Care Provider Active Start: December 15, 2023 End: December 14johnathan Tijerina MDAttending ProviderActiveStart: December 15, 2023 End: December 15, 2023 Team Status: Inactive Member Role Status Dates Leatha Diaz APRN BUSINESS PROCESS ASSOCIATE-C Primary Care Provider, Attending Provider Active Start: December 31, 2023 End: December 31, 2023 Team Status: Inactive Member Role Status Dates Leatha Diaz APRN BUSINESS PROCESS ASSOCIATE-C Primary Care Provider, Attending Provider Active Start: January 28, 2024 End: January 28, 2024 Team Status: Inactive Member Role Status Dates Leatha Diaz APRN BUSINESS PROCESS ASSOCIATE-C Primary Care Provider Active Start: February 09, 2024 End: February 08johnathan Tijerina MDAttending ProviderActiveStart: February 09, 2024 End: February 09, 2024 Team Status: Inactive Member Role Status Dates Leatha Diaz APRN BUSINESS PROCESS ASSOCIATE-C Primary Care Provider, Attending Provider Active Start: February 25, 2024 End: February 25, 2024 Team Status: Inactive Member Role Status Dates Leatha Diaz APRN BUSINESS PROCESS ASSOCIATE-C Primary Care Provider Active Start: March 222023 End: March 22, 2024Imarenata Felton MDAttending ProviderActiveStart: March 22, 2024 End: March 22, 2024 Team Status: Active Member Role Status Dates Leatha Diaz APRN BUSINESS PROCESS ASSOCIATE-C Primary Care Provider Active Start: March 222023 Imariana Felton , MDAttending Provider, Other ProviderActiveStart: March 22, 2024 Team Status: Inactive Member Role Status Dates Leatha Diaz APRN BUSINESS PROCESS ASSOCIATE-C Primary Care Provider, Attending Provider Active Start: April 18, 2024 End: April 18, 2024 Team Status: Inactive Member Role Status Dates Leatha Diaz APRN BUSINESS PROCESS ASSOCIATE-C Primary Care Provider Active Start: June End: June 16, 2024Mandeep Esquivel ProviderActiveStart: June 16, 2024 End: June 16, 2024Team MemberRelationshipSpecialtyStart DateEnd Date Baljit Pisano DO [address] [place] [address] PCP - General01/07/17Team MemberRelationshipSpecialtyStart DateEnd Date Leatha Diaz APRN-BUSINESS PROCESS ASSOCIATE [address] [place] [address] PCP - GeneralNurse Practitioner01/21/24 Team Status: Active Member Role Status Dates Leatha Diaz APRN BUSINESS PROCESS ASSOCIATE-C Primary Care Provider Active Start: July 062024 Cj Acuna ProviderActiveStart: July 06, 2024 Team Status: Inactive Member Role Status Dates Leatha Diaz APRN BUSINESS PROCESS ASSOCIATE-C Primary Care Provider, Attending Provider Active Start: August 31, 2024 End: August 31, 2024 Team Status: Inactive Member Role Status Dates Leatha Diaz APRN BUSINESS PROCESS ASSOCIATE-C Primary Care Provider, Attending Provider Active Start: September 22, 2024 End: September 22, 2024 Team Status: Inactive Member Role Status Dates Leatha Diaz APRN BUSINESS PROCESS ASSOCIATE-C Primary Care Provider, Attending Provider Active Start: October 13, 2024 End: October 13, 2024Team MemberRelationshipSpecialtyStart DateEnd Date Emily LeathaREUBEN willard-BUSINESS PROCESS ASSOCIATE [address] [facility] [place] [address] PCP - GeneralNurse Practitioner01/21/24Team MemberRelationshipSpecialtyStart Date End Date EmilyLeathaCHRISTYN-BUSINESS PROCESS ASSOCIATE [address] [place] [address] PCP - GeneralNurse Practitioner01/21/24Team MemberRelationshipSpecialtyStart Date End Date Emily LeathaREUBEN-BUSINESS PROCESS ASSOCIATE [address] [place] [address] PCP - GeneralNurse Practitioner01/21/24Team MemberRelationshipSpecialtyStart Date End Date Emily LeathaCHRISTYN-BUSINESS PROCESS ASSOCIATE [address] [facility] [place] [address] PCP - GeneralNurse Practitioner01/21/24Team MemberRelationshipSpecialtyStart Date End Date LucasmarlenLeatha dale REUBEN-BUSINESS PROCESS ASSOCIATE [address] [facility] [address] PCP - GeneralNurse Practitioner01/21/24Team MemberRelationshipSpecialtyStart Date End Date LucasmarlenLeatha daleREUBEN-BUSINESS PROCESS ASSOCIATE [address] [facility] [place] [address] PCP - GeneralNurse Practitioner01/21/24 Team Status: Active Member Role/Relationship Status Dates Leatha Diaz APRN BUSINESS PROCESS ASSOCIATE-C Primary Care Provider Active Team Status: Active Member Role/Relationship Status Dates Leatha Diaz APRN BUSINESS PROCESS ASSOCIATE-C Primary Care Provider Active Start: January 04, 2025 Adelaida Jiang CMAAttcris ProviderActiveStart: January 04, 2025 Team Status: Inactive Member Role/Relationship Status Dates Leatha Diaz APRN BUSINESS PROCESS ASSOCIATE-C Primary Care Provider Active Start: February End: March 01, 2025Leatha Diaz APRN BUSINESS PROCESS ASSOCIATE-CAttending ProviderActive Start: March 01, 2025 End: March 01, 2025 Goals (unrecognized section and content) Goals may [...] BE BASED ON THE PRIMARY CLINICAL RECORDS. [employer] [facility]. provides no warranty or guarantee of the accuracy or completeness of information in this document.
[2025-03-03 10:12] LABS: Hematocrit 43.5 % (42.0-54.0); Hemoglobin 15.0 g/dL (14.0-18.0); Immature Granulocytes Abs Auto 0.01 10^3/uL (0.00-0.03); Immature Granulocytes Pct Auto 0.1 % (0.0-0.5); Lymphocytes Absolute Auto 1.9 10^3/uL (1.2-3.8); Mean Corpuscular HGB Conc 34.5 g/dL (29.9-35.2); Mean Corpuscular Hemoglobin 29.2 pg (25.9-34.0); Mean Corpuscular Volume 84.8 fL (80.0-94.0); Platelet Count 258 10^3/uL (150-450); Red Blood Count 5.13 10^6/uL (4.70-6.10); White Blood Count 6.8 10^3/uL (4.0-11.0)
[2025-03-03 10:34] LABS: Alanine Aminotransferase 122 U/L (16-63); Albumin Globulin Ratio 0.9; Albumin Level 3.7 g/dL (3.4-5.0); Alkaline Phosphatase 86 U/L (46-116); Anion Gap 16.3; Aspartate Amino Transferase 70 U/L (15-37); Blood Urea Nitrogen 11.0 mg/dL (7.0-18.0); Calcium 9.0 mg/dL (8.5-10.1); Carbon Dioxide 21.7 mmol/L (21.0-32.0); Chloride 103 mmol/L (98-107); Cholesterol 167 mg/dL (<=200); Estimated GFR (African America >60 (>=60 mL/min/1.73m^2); Estimated GFR (Non-African Ame >60 (>=60 mL/min/1.73m^2); Globulin 4.2 g/dL; Glucose 97 mg/dL (74-106); HDL Cholesterol 37 mg/dL (40-60); Potassium 4.0 mmol/L (3.5-5.1); Sodium 137 mmol/L (136-145); Total Protein 7.9 g/dL (6.4-8.2); Triglycerides 164 mg/dL (<=150); VLDL CHOLESTEROL 32.8 mg/dL
== END 2025-03-03 09:58 | disposition home or self-care (01) ==
LOC: LAB 09:57
PROVIDERS: PCP Nurse Practitioner Family; Visit Provider Nurse Practitioner Family
DX: E78.2 Mixed hyperlipidemia (principal); K76.0 Fatty (change of) liver, not elsewhere classified
CPT/HCPCS: 36415; 80053; 80061; 85025

== ENCOUNTER 2025-03-18 06:47 | Emergency (ER) | payer BC, SELFPAY ==
--- OUTSIDE RECORDS SUMMARY | 2024-11-02 03:45 | XMS_ITS ---
Author Organization [facility] Address [address] [facility] [place] [place] [address] Care Team Providers Care Bottom Stop Attacher Name Role Phone Caleb Corbin Primary Care Provider SHERRI ORDOEÑZ Unavailable REASON FOR VISIT 1 month f/u Encounters Encounter Location Date Provider Diagnosis [place] [address] [place] [address] 2024 Caleb Corbin Plan Of Treatment No Information Progress Notes * JET HERRERA ADOB:2005 (19 yo M)Acc No.[id number]:11/02/2024 Behavioral Health Patient: JET CASEY :?CINDY MarieePDOB:2005???Age:19 Y???Sex: MaleDate:11/02/2024Phone:[phone]:[address] [place] [address] Subjective: * Chief Complaints: * 1 month f/u Billing Information: * Procedure Codes: * Electronic signature of TE Mariee on 03/18/2025 at 08:06 AM ESTSign off status: Pending * Provider: TE Valles Date: 0 11/02/2024 Generated for Printing/Faxing/eTransmitting on:?03/18/2025 08:06 AM EST
--- OUTSIDE RECORDS SUMMARY | 2025-03-13 10:30 | XMS_ITS | Encounter Summary ---
Author Organization [facility] Address [id number] [address] [place] [address] Care Team Providers Care Gmat Tutor Name Role Phone Leatha Diaz Primary Care Provid er Reason for Visit * ReasonCommentsFollow-up1 MONTH FOLLOW UP FROM 02/13/25 APPT, POST OP - EXCISION OF PILONIDAL PERFORMED 01/02/25 BY KIAN Encounter Details DateTypeDepartmentCare Team (Latest Contact Info)Auehsvmlcgk13/03/2025 10:30 AM ESTOffice Visit [facility] [address] [place] [phone] Franci Byrd APRN-INCOME TAX EXPERT [address] [place] [address] Pilonidal disease (Primary Dx) Social History Tobacco UseTypesPacks/DayYears UsedDateSmoking Tobacco: NeverSmokeless Tobacco: NeverAlcohol UseStandard Drinks/WeekCommentsNot Currently0 (1 standard drink = 0.6 oz pure alcohol)none since julyHC UtilitiesAnswerDate RecordedIn the past 12 months has the electric, gas, oil, or water company threatened to shut off services in your home?No07/11/2024PRAPARE - TransportationAnswerDate RecordedIn the past 12 months, has lack of transportation kept you from medical appointments or from getting medications?No07/11/2024In the past 12 months, has lack of transportation kept you from meetings, work, or from getting things needed for daily living?No07/11/2024UDIT-CAnswerDate RecordedFrequency of Alcohol ConsumptionNot on file03/13/2025Q2: How many drinks containing alcohol do you have on a typical day when you are drinking?Patient does not drink 03/13/2025Frequency of Binge DrinkingNot on file03/13/2025Housing Instability AnswerDate RecordedAre you worried or concerned that in the next two months you may not have stable housing that you own, rent or stay in as a part of a household?No07/11/2024hildcareAnswerDate MogkxdkmGqhfxitikYvztqgr25/12/2019 EmploymentAnswerDate VpkqvpywGzhkgyowxpWqlovud00/12/2019Hunger ScreeningAnswer Date RecordedWithin the past 12 months we worried whether our food would run out before we got money to buy more.Never True03/02/2025Within the past 12 months the food we bought just didn't last and we didn't have money to get more.Never True03/02/2025Purpose - LifeAnswerDate RecordedPurpose and direction in life Enphqqq9006/21/2020ex and Gender InformationValueDate RecordedSex Assigned at BirthNot on fileLegal WgdBbbi4412/14/2014 12:01 PM EDTGender IdentityNot on file Sexual OrientationNot on filedocumented as of this encounter Last Filed Vital Signs Vital SignReadingTime TakenCommentsBlood Pressure--Pulse--Temperature-- Respiratory Rate--Oxygen Saturation--Inhaled Oxygen Concentration--Msizbj554.8 kg (456 lb)03/13/2025 10:25 AM HIVKajuil528.9 cm (6')03/13/2025 10:25 AM ESTBody Mass Index61.8403/13/2025 10:25 AM ESTdocumented in this encounter Functional Status documented as of this encounter Progress Notes * Franci Byrd APRN-JAKE - 03/13/2025 10:30 AM EST Images from the original note were not included. Subjective Ta Heber Duncan is a 19 y.o. male status post excision of pilonidal disease on 01/02/2025. Packing area as instructed. No concerns. He is having a urologic cyst procedure this . Objective There were no vitals filed for this visit. Physical Exam Constitutional: General: He is not in acute distress. Appearance: Normal appearance. He is not ill-appearing. HENT: Head: Normocephalic and atraumatic. Mouth/Throat: Mouth: Mucous membranes are moist. Eyes: Pupils: Pupils are equal, round, and reactive to light. Cardiovascular: Rate and Rhythm: Normal rate. Pulmonary: Effort: Pulmonary effort is normal. No respiratory distress. Abdominal: Comments: Intergluteal cleft incision healing appropriately with granulation tissue. Smaller in size as compared to last visit. Repacked with 1/4th inch plain packing strips. Gauze placed. Musculoskeletal: General: Normal range of motion. Skin: General: Skin is warm and dry. Neurological: Mental Status: He is alert and oriented to person, place, and time. Mental status is at baseline. Assessment Ta Duncan is a 19 y.o.male postop excision of pilonidal disease. Plan Continue dressing changes. Pack less each time to promote closure. Continue warm water soaks. Follow up in 1 month. Pilonidal disease [L98.8] JESSICA URIARTE [facility] [place] This note was created with the assistance of a speech recognition program. While intending to generate a timely document that accurately reflects the content of the visit, no guarantee can be provided that every grammatical or spelling mistake has been or will be identified or corrected. Thank you for your understanding. JESSICA Uriarte 03/13/25 1104 documented in this encounter Plan of Treatment DateTypeDepartmentCare Team (Latest Contact Info)Kzdiwsemjtd20/21/2025 2:15 PM ESTOffice Visit [facility] [address] [place] [phone] Kwame Shell MD [address] [place] [address] 04/05/2025 9:30 AM ESTOffice Visit [facility] [address] [place] [place] [phone] Franci Byrd APRN-JAKE [address] [place], [place] [id number] documented as of this encounter Goals GoalPatient Goal TypeAssociated ProblemsRecent ProgressPatient-Stated?Author Autogenerated Goal Care PlanAutogenerated ProblemNoGriffin, Naomidocumented as of this encounter Visit Diagnoses Diagnosis Pilonidal disease- Primary documented in this encounter Additional Health Concerns Active ProblemsNoted DateDiagnosed DateAutogenerated Ehvppvf9403/16/2025documented as of this encounter Care Teams Team MemberRelationshipSpecialtyStart DateEnd Date Leatha Diaz APRN-SOFTWARE CONFIGURATION MANAGER [address] [place] [address] PCP - GeneralNurse Practitioner01/21/24documented as of this encounter
--- OUTSIDE RECORDS SUMMARY | 2025-03-16 11:01 | XMS_ITS | Encounter Summary ---
Author Organization [employer] Address [id number] [address] [place] [address] Care Team Providers Care Repertoire Manager Name Role Phone Leatha Diaz APRN-CHECO Primary Care Provid er Reason for Referral * Misc (Routine) - Pending ReviewSpecialtyDiagnoses / ProceduresReferred By ContactReferred To Contact Procedures Discharge Follow-Up Gera Brown MD [address] [facility], [address] [place] [address] Phone: tel: fax: Referral IDStatusReasonStart DateExpiration DateVisits RequestedVisits [id number] * Misc (Routine) - Pending ReviewSpecialtyDiagnoses / ProceduresReferred By ContactReferred To Contact Procedures Wound care (specify) Gera Brown MD [address], [address] [place] [address] Phone: tel: fax: Referral IDStatusReasonStart DateExpiration DateVisits RequestedVisits [id number] * Misc (Routine) - Pending ReviewSpecialtyDiagnoses / ProceduresReferred By ContactReferred To Contact Procedures Hygiene Gera Brown MD [address], [address] [place] [address] Phone: tel: fax: Referral IDStatusReasonStart DateExpiration DateVisits RequestedVisits [id number] * Misc (Routine) - Pending ReviewSpecialtyDiagnoses / ProceduresReferred By ContactReferred To Contact Procedures Adult diet Gera Bronw MD [address], [address] [place] [address] Phone: tel: fax: Referral IDStatusReasonStart DateExpiration DateVisits RequestedVisits [id number] Reason for Visit * Auth/CertSpecialtyDiagnoses / ProceduresReferred By ContactReferred To Contact Diagnoses Spermatocele Spermatocele [608.1] Procedures MD EXCIS SPERMATOCELE SPERMATOCELECTOMY Kwame Shell MD [address] [place] [address] Phone: tel: fax: Referral IDStatusReasonStart DateExpiration DateVisits RequestedVisits [id number] Encounter Details DateTypeDepartmentCare Team (Latest Contact Info)Qlakmorilke80/06/2025 11:01 AM EST - 03/16/2025 4:05 PM ESTHospital Encounter [facility] [address] [place] [address]. [place] [address] Kwame Shell MD [address] [place] [id number] Spermatocele Discharge Disposition: Home Social History Tobacco UseTypesPacks/DayYears UsedDateSmoking Tobacco: NeverSmokeless Tobacco: NeverAlcohol UseStandard Drinks/WeekCommentsNot Currently0 (1 standard drink = 0.6 oz pure alcohol)none since julyHC UtilitiesAnswerDate RecordedIn the past 12 months has the [employer], gas, oil, or water company threatened to [...] in as a part of a household?No07/11/2024hildcareAnswerDate OixcbblaDankuspdlHvjgoqo77/12/2019 EmploymentAnswerDate SyoopvyoLqcfauqjvfShloejq14/12/2019Hunger ScreeningAnswer Date RecordedWithin the past 12 months we worried whether our food would run out before we got money to buy more.Never True03/02/2025Within the past 12 months the food we bought just didn't last and we didn't have money to get more.Never True03/02/2025Purpose - LifeAnswerDate RecordedPurpose and direction in life Ivozcsd2606/21/2020ex and Gender InformationValueDate RecordedSex Assigned at BirthNot on fileLegal EbsZkib9412/14/2014 12:01 PM EDTGender IdentityNot on file Sexual OrientationNot on filedocumented as of this encounter Last Filed Vital Signs Vital SignReadingTime TakenCommentsBlood Mznwqdsx981/8011 3:47 PM EST Oxwkx110803/16/2025 3:47 PM QCXBmitckgfmul77.7 ??C (98.1 ??F)03/16/2025 2:53 PM ESTRespiratory Hfou987403/16/2025 3:47 PM ESTOxygen Upqsnpantf18%03/16/2025 3:47 PM ESTInhaled Oxygen Concentration--Nnrvmb939.8 kg (456 lb)03/16/2025 11:26 AM YDKNwbvvl411.9 cm (6')03/16/2025 11:26 AM ESTBody Mass Index61.8403/16/2025 11:26 AM ESTdocumented in this encounter Functional Status documented as of this encounter Discharge Instructions * Discharge Instructions* Viridiana Chavez RN - 03/16/2025 2:53 PM EST Images from the original note were not included. GENERAL ACTIVITY: If you have been put to sleep (general anesthetic) or received any sedation your judgment and/or coordination may be impaired. Be careful on steps, holding a hot drink, etc. Do not make any important decisions or sign any important papers in the next 24 Hours. You should have a responsible adult with you the rest of today and tonight. Restrict your activities and rest for the day. Resume light to normal activity tomorrow as you feel you can. Do not engage in strenuous activities that may place stress on your incision. Do not drive or operate machinery for 24 hours. Ask your Surgeon when you can resume driving. Do not consume alcohol, tranquilizers, sleeping medications, or any non-prescribed medication for 24 hours unless advised by your doctor to do so. You are advised to go directly home from the hospital. Children may become very pink and flushed for the next 24 hours. Diet: May resume normal diet as you feel you can. Begin with liquids. If not nauseated, you may progress to a regular diet when you desire. SPECIFIC PROBLEMS TO WATCH FOR: ___ Persistent bleeding or bleeding through dressing and stopped by direct pressure. A small amountof bleeding may occur. ___ Large amount of swelling around the incision. A small amount of swelling and/or bruising is expected. ___ Severe or unexplained pain. ___ Numbness, tingling or discoloration of fingers or toes. ___ Fever in the next few days. A low grade fever may occur. ___ Inability to pass urine in the next 6 to 8 hours. ___ If you have had a laparoscopic procedure you may develop shoulder pain in the first 24 hours. To help relieve this pain try setting up, reclining or lying on your side. ___ Special Instructions: ___ CASING OPERATOR procedures: You may have varying amounts of vaginal drainage, less than a normal period. Notify the Doctor: if you are changing your danilo pad more than once an hour or have any bright red bleeding/large amounts of clots. If you develop any of these problems contact your Surgeon. How to Prevent Surgical Site Infections About this topic A surgical wound is a cut in the skin from a procedure. Doctors are either taking something out of the body or treating a disease inside the body. Any cut made on the skin gives germs easy access into the body. This may result in infection. Some surgical site infections are at the skin level only. Others are more serious and involve tissues under the skin, organs, or implanted materials from the surgery. This infection can start at any time from 2 to 3 days to 2 to 3 weeks after the surgery. The infection may spread deeper in the body if it is not treated. You will start to feel unwell and serious health problems may happen. An infection may also cause the cut to open again. General These things can raise your risk of getting infection after surgery: Poor nutritional status If you have diabetes and you do not take your drugs regularly Smoking or use of tobacco products Being overweight If you have other infected wounds Weak immune system like in HIV, chemotherapy, and transplant patients Long-term use of steroids Long stay in the hospital People using contraceptive pills Certain health problems like liver disease, kidney disease, and poor blood circulation You can help to lower your chance of getting a surgical site infection. Here are some things you can do. Before Your Surgery Tell your doctor if you already have other infections. Even something like a cold or sore throat may raise your risk of getting a surgical site infection. Wash your hair and take a bath or shower before your procedure. Your doctor may have you use a special soap or shampoo. Talk to your doctor about all of the infections you have had in the past. Your doctor may order drugs for you before, during, and after your surgery. If you need to remove hair from the surgical site, clip the hair with scissors or electrical clippers. Do not shave the area with a razor. Do not apply lotions, powders, hair spray, or makeup before your surgery. If your doctor gives you antibiotics before the procedure, take them as ordered. Do not miss any doses. After Your Surgery Wash your hands before and after you touch your wound or dressing or change the dressing. Make sureany person who touches the dressing washes their hands first. Tell your doctor right away if you see signs of infection or if you feel ill. Talk to your doctor and learn how to care for your cut site. Ask your doctor about: When you should change your bandages When you may take a bath or shower If your doctor prescribes drugs for infection, you need to take the drug as directed until the drugis gone. When changing your dressing, do it in a clean room. Store your bandages in a clean bag and cabinet.Throw away the dirty dressing right away and wash your hands. What will the results be? Taking good care of your surgical site will help avoid infection and your wound will heal faster. What lifestyle changes are needed? Keep good hygiene. Cleanliness is very important for proper wound healing. Stop or lessen smoking. Get lots of rest. Sleep when you are feeling tired. Avoid doing tiring activities. Eat a healthy diet. Ask your doctor what kind of diet you should be on. Keep pets out of your bed while you recover. Take care of your general health. Other diseases you may have, such as diabetes, can affect wound healing What drugs may be needed? The doctor may order drugs to: Help with pain Prevent or fight an infection Will physical activity be limited? Movement may be limited in most used body parts like the hands, elbows, and knees. Limiting the movement may help with faster wound healing. Do not go swimming, take tub baths, or do other activities that may soak your wound. Dirty water can get in the wound and may cause infection. Avoid stretching and pulling activities that could cause your scar to pull apart. Call your doctor if this happens. Your doctor may ask you to avoid lifting, straining, exercise, or sports for the first month after surgery. Talk with your doctor about the right amount of activity for you. Will there be any other care needed? Some wounds need tubes to drain the fluids coming out of the wound. Talk with your doctor about howto care for your drain if you have one. Some stitches melt away in 1 to 3 weeks. You need to clean the cut line with care. Your doctor willgive you orders on how to clean them. If you have stitches or ayleen, you will need to have them taken out. Your doctor will often want to do this in 1 to 2 weeks. What problems could happen? Infection Scarring Wound opens up Pneumonia Blood clots When do I need to call the doctor? Signs of infection. These include a fever of 100.4??F (38??C) or higher, chills, wound that will not heal. Signs of wound infection. These include swelling, redness, warmth around the wound; too much pain when touched; yellowish, greenish, or bloody discharge; foul smell coming from the cut site; cut siteopens up. You are not feeling better in 2 to 3 days or you are feeling worse Helpful tips Wear loose clothing. Good blood supply is important for healing. Do not remove your bandages unless your doctor says so. If your wound all of a sudden bleeds, applying some pressure may help stop the bleeding. See your doctor right away. Teach Back: Helping You Understand The Teach Back Method helps you understand the information we are giving you. After you talk with the staff, tell them in your own words what you learned. This helps to make sure the staff has described each thing clearly. It also helps to explain things that may have been confusing. Before going home, make sure you can do these: I can tell you about my procedure. I can tell you what I can do to help prevent infection before and after my surgery. I can tell you what I will do if I have a fever, or swelling, redness, or warmth around my wound. Where can I learn more? Centers for Disease Control and Prevention http://www.cdc.gov/Features/SafeSurgery/ Last Reviewed Date 2020-08-08 Consumer Information Use and Disclaimer This generalized information is a limited summary of diagnosis, treatment, and/or medication information. It is not meant to be comprehensive and should be used as a tool to help the user understand and/or assess potential diagnostic and treatment options. It does NOT include all information about conditions, treatments, medications, side effects, or risks that may apply to a specific patient. Itis not intended to be medical advice or a substitute for the medical advice, diagnosis, or treatment of a health care provider based on the health care provider's examination and assessment of a patient???s specific and unique circumstances. Patients must speak with a health care provider for complete information about their health, medical questions, and treatment options, including any risks orbenefits regarding use of medications. This information does not endorse any treatments or medications as safe, effective, or approved for treating a specific patient. [employer] and its affiliates disclaim any warranty or liability relating to this information or the use thereof. The use of this information is governed by the Terms of Use, available at https://www.[employer].Pops/en/know/oaxgzhwl-iswgavnmoehnp-ygovb Copyright Copyright ?? 2022 [employer] and its affiliates and/or licensors. All rights reserved. * Attachments The following attachments cannot be sent through Care Everywhere. * Spermatocelectomy (Northern Irish) documented in this encounter Medications at Time of Discharge MedicationSigDispense QuantityRefillsLast FilledStart DateEnd Date acetaminophen (TYLENOL EXTRA STRENGTH) 500 mg tablet Take 2 tablets (1,000 mg total) by mouth every 6 (six) hours as needed for pain. 30 tablet 03/16/2025 ARIPiprazole (ABILIFY) 5 mg tablet Indications:MDD (major depressive disorder), recurrent severe, without psychosis ([facility])Take 1 tablet (5 mg total) by mouth in the morning. 90 tablet HYDROcodone-acetaminophen (NORCO) 5-325 mg per tablet Indications:SpermatoceleTake 1 tablet by mouth every 6 (six) hours as needed for pain for up to 3 days. Max Daily Amount: 4tablets 12 tablet 5105/19/2024 sertraline (ZOLOFT) 100 mg tablet Take 1 tablet (100 mg total) by mouth in the morning. doxycycline (DORYX) 150 MG EC tablet Take 1 tablet (150 mg total) by mouth in the morning and 1 tablet (150 mg total) before bedtime. Doall this for 5 days. 10 tablet 5105/17/2024documented as of this encounter H&P Notes * Kwame Shell MD - 03/16/2025 11:47 AM EST HISTORY AND PHYSICAL INTERVAL NOTE: Ta Duncan 2005 [id number] H&P reviewed. The patient was examined and there are no changes to the H&P. Kwame Shell MD Source Note - Argentina Kim APRN-[employer] - 03/02/2025 12:15 PM EDT PRE-ADMISSION TESTING HISTORY AND PHYSICAL EXAM DATE: 03/02/25 PCP: KASHIF May CHIEF COMPLAINT: spermatocele HISTORY OF PRESENT ILLNESS: Ta Duncan, a 19 y.o. White or male, presents to [facility] for a pre-surgical H&P. The [...] Date Acute appendicitis 02/20/2022 Anxiety Bipolar disorder ([facility]) Depression Fibromyalgia Fractures Headache Liver disease fatty liver Mood disorder Morbid obesity ([facility]) 03/02/2025 Sleep apnea does not use a cpap Spermatocele 03/02/2025 URI, acute 07/03/2024 Visual impairment PAST SURGICAL HISTORY: Past Surgical History: Procedure Laterality Date COLONOSCOPY ESOPHAGOGASTRODUODENOSCOPY EXCISION CYST PILONIDAL N/A 01/02/2025 Performed by Belen Snyder MD at [facility] LAPAROSCOPIC APPENDECTOMY N/A 02/20/2022 Performed by Dean Atkins DO at [facility] FAMILY HISTORY: Family History Problem Relation [...] Behavior is cooperative. PERTINENT TESTING AVAILABLE IN [facility] (WITHIN THE PAST 2 YEARS): EK12/15/24 Sinus [...] the most recent lab values available in [facility] at the time ofthe appointment. ASSESSMENT / DIAGNOSIS: Linked DX: Spermatocele [608.1] PLAN: Ta Duncan is scheduled for Case Date: 03/16/2025 Linked Surgeon: Ronnie Shell MD Linked Procedure: SPERMATOCELECTOMY - Right. Testing performed in Pre-Admission Clinic today: / JESSICA Pacheco 03/02/25 1243 JESSICA Pacheco 03/16/25 1147 * Gera Loja MD - 03/16/2025 11:04 AM EST Images from the original note were not included. Neil Mueller Jr., MD, Dean Enamorado MD, Nick Steele MD, Beverly Dueñas MD, Kaylee Murdock MD, Kwame Shell MD, Hardy Lazo MD, Manuel Delgado MD, Darius Medel MD Urology - History & Physical/Consultation Patient: Ta Duncan Date of : 2005 ATTENDING: Dr. Shell CHIEF COMPLAINT: Right Spermatocele HISTORY OF PRESENT ILLNESS: Ta Duncan is a 19 y.o. White or male with past medical history of morbid obesity, depression and bipolar disorder who presents today for planned surgical intervention. Patient initially presented back in December 2024 complains of right testicular pain. Ultrasound scrotal webbing demonstrated no evidence of testicular torsion or mass. However, a complex right epididymal cysts measuring 1.0 cm was noted. Patient was evaluated in the preoperative unit, vital signs stable and afebrile. He continues to endorse some right testicular discomfort. He denies any recent fever, chills, nausea, vomiting, hematuria or dysuria. Urine culture on 03/02/2025 was negative. Patient's old records, notes and chart reviewed and summarized above. Past Medical History: Past Medical History: Diagnosis Date Acute appendicitis 02/20/2022 Anxiety Bipolar disorder ([facility]) Depression Fibromyalgia Fractures Headache Liver disease fatty liver Mood disorder Morbid obesity ([facility]) 03/02/2025 Sleep apnea does not use a cpap Spermatocele 03/02/2025 URI, acute 07/03/2024 Visual impairment Past Surgical History: Past Surgical History: Procedure Laterality Date COLONOSCOPY ESOPHAGOGASTRODUODENOSCOPY EXCISION CYST PILONIDAL N/A 01/02/2025 Performed by Belen Snyder MD at [facility] LAPAROSCOPIC APPENDECTOMY N/A 02/20/2022 Performed by Dean Atkins DO at [facility] Medications: Scheduled Meds: Continuous Infusions:No current facility-administered medications for this encounter. PRN Meds:. Allergies: Penicillins Social History: Social History Socioeconomic History Marital status: Single Spouse name: Not on file Number of children: Not on file Years of education: Not on file Highest education level: Not on file Occupational History Not on file Tobacco Use Smoking status: Never Smokeless tobacco: Never Vaping Use Vaping status: Former Quit date: 11/08/2024 Substances: Nicotine Devices: Disposable Substance and Sexual Activity Alcohol use: Not Currently Comment: none since july 2024 Drug use: Not Currently Sexual activity: Defer Other Topics Concern Not on file Social History Narrative Not on file Social Drivers of Health Financial Resource Strain: Not on file Food Insecurity: No Food Insecurity (03/02/2025) Hunger Screening Food Insecurity - Worry: Never [...] (07/11/2024) Housing Instability Housing Instability: No Family History: Family History Problem Relation Age of Onset Heart disease Mother Thyroid disease Mother Fibromyalgia Mother No Known Problems Father Heart disease Maternal Grandmother Thyroid disease Maternal Grandmother Cancer Maternal great-grandfather Lung cancer Maternal great-grandfather Anesthesia problems Neg Hx REVIEW OF SYSTEMS: Review of Systems Constitutional: Negative. HENT: Negative. Eyes: Negative. Respiratory: Negative. Cardiovascular: Negative. Gastrointestinal: Negative. Endocrine: Negative. Genitourinary: Positive for scrotal swelling and testicular pain. Musculoskeletal: Negative. Skin: Negative. Allergic/Immunologic: Negative. Neurological: Negative. Hematological: Negative. Psychiatric/Behavioral: Negative. Physical Exam: Physical Exam Constitutional: NAD. Morbid obesity HEENT: NCAT, PERRLA, EOMI Card: RRR, extremities warm well perfused Pulm: no SOB, no increased WOB Abdominal: no tenderness, distension, pain. exam: no suprapubic tenderness, no flank pain Right hemiscrotum slight tenderness MSK: no overt deformities Neuro: no focal deficits LABS: Additional Lab/culture results: Microbiology Results No results found for the last 168 hours. Urinalysis: Lab Results Component Value Date COLOR Yellow 03/02/2025 TURBIDITY Clear 03/02/2025 SPECIFICGRA 1.027 03/02/2025 SPECIFICGRA >=1.030 07/11/2024 NITRITE Negative 03/02/2025 PHURINE 6.0 03/02/2025 LEUKOCYTE Negative 03/02/2025 LEUKOCYTE Negative 07/11/2024 PROTEIN Negative 03/02/2025 KETONES Negative 03/02/2025 UROBILINOGEN <1.1 eu/dL 03/02/2025 UROBILINOGEN 0.2 07/11/2024 BLOODHGB Negative 03/02/2025 Lab Results Component Value Date SPECIFICGRA 1.027 03/02/2025 LEUKOCYTE Negative 03/02/2025 NITRITEN Negative 12/30/2024 PHNUR 5.5 12/30/2024 PROTEINNUR Negative 12/30/2024 GLU 90 12/15/2024 KETONESNUR Negative 12/30/2024 UROBILINOGEN <1.1 eu/dL 03/02/2025 BLOODHGBNU Negative 12/30/2024 Imaging Results: No results found. Assessment and Plan Assessment: Ta Duncan is a 19 y.o. White or male with past medical history of morbid obesit,bipolar disorder and depression who presents today for planned right spermatocelectomy Plan: NPO Preoperative antibiotics Plan for OR today for right spermatocelectomy. Risks, benefits, and alternatives of the procedure explained to the patient at bedside, for which he verbally understood and all questions answered. Further treatment management pending conclusion of surgical intervention Gera Loja MD Urology Resident PGY-1 11:04 AM 03/16/25 Cosigned by Kwame Shell MD at 03/16/2025 4:19 PM EST Associated attestation - Kwame Shell MD - 03/16/2025 4:19 PM EST Attending Attestation: Jasmin Kwame Shell MD, the patient. I performed the critical/flores portions of the service. I was directly involved in the management and treatment plan of the patient. I reviewed the resident's note. Additional Notes/Findings: Kwame Shell Jr, MD [facility] 03/16/25 4:18 PM documented in this encounter Miscellaneous Notes * Op Note - Kwame Shell MD - 03/16/2025 12:46 PM EST LOCATION: [facility] DATE: 03/16/2025 Surgeon(s): Kwame Shell MD ACID PLANT HELPER: Gera West MD PREOPERATIVE DIAGNOSIS: Spermatocele [608.1] POSTOPERATIVE DIAGNOSIS: Spermatocele [608.1] PROCEDURE PERFORMED: SPERMATOCELECTOMY ANESTHESIA: General SPECIMENS: ID Type Source Tests Collected by Time A : EPIDIDYMAL LESION Tissue Epididymus SURGICAL PATHOLOGY Kwame Shell MD 03/16/2025 1352 DRAINS: * No LDAs found * IMPLANTS: Nothing was implanted during the procedure COMPLICATIONS: None ESTIMATED BLOOD LOSS: <5mL FINDINGS: Epididymal lesion at head of the epididymis INDICATIONS FOR THE PROCEDURES: Patient is a 19 y.o. male with a history of epididymal lesion causing pain. He presents today for excision. The risks and benefits of the procedure as well as possible alternatives and complications were discussed and he consented. DETAILS OF THE PROCEDURE: Patient was correctly identified in the preoperative holding area. He was brought back to the operating room and placed under General endotracheal anesthesia. Prophylactic antibiotics were given in the form of Levaquin. EPC cuffs were in place, turned on, and functional. He was then prepped and draped in the usual sterile fashion in the supine position. After an appropriate timeout was performed with all parties agreeing to the procedure incision was made in the right hemiscrotum. Dartos was dissected down to the tunica vaginalis which was opened. The testis was delivered. The lesion was identified and appeared somewhat firm potentially solid the tissue was dissected down to the lesion and it did appear that the epididymis was draining directly into the lesion. Further dissection was carried out and the epididymis was unable to be from the lesion, and there was no direct drainage from the testis into the epididymis. At this point the decision was made to excise the lesion along with the most proximal end of the epididymis. These were both tied using 2-0 Vicryl and and removed. Bleeding was controlled with Bovie electrocautery. The testis was then returned to the tunica vaginalis which was closed with 3-0 Vicryl. Testis was returned to the scrotum which was irrigated. Spermatic cord block was performed. Hemostasis was observed. Dartos was closed using 3-0 Vicryl. The skin was closed using 4-0 Monocryl. The patient tolerated the procedure was sent to PACU for postoperative monitoring. DISPOSITION: Patient was discharged home in stable condition with appropriate follow-up in clinic in 2 weeks. documented in this encounter Plan of Treatment DateTypeDepartmentCare Team (Latest Contact Info)Mouakfzkfsc78/21/2025 2:15 PM ESTOffice Visit [facility] [address] [place] [address] Kwame Shell MD [address] [place] [address] 04/05/2025 9:30 AM ESTOffice Visit [facility] [address] [place] [id number] Franci Byrd, [facility] [address] [place], [place] [id number] NameTypePriorityAssociated DiagnosesDate/TimeSurgical PathologyPathology and CytologyRoutine Spermatocele 03/16/2025 1:52 PM ESTNameTypePriorityAssociated DiagnosesOrder ScheduleSurgical PathologyPathology and CytologyRoutine Spermatocele Release Upon Ordering for 1 Occurrences starting 03/16/2025, 1 completed documented as of this encounter Goals GoalPatient Goal TypeAssociated ProblemsRecent ProgressPatient-Stated?Author Autogenerated Goal Care PlanAutogenerated ProblemNoGriffin, Naomidocumented as of this encounter Procedures Procedure NamePriorityDate/TimeAssociated DiagnosisCommentsPR EXCIS SPERMATOCELE 03/16/2025 12:46 PM EST Spermatocele Case Notes JADE REQ 90W, EPIC 109W DNM Special Needs DNM documented in this encounter Visit Diagnoses Diagnosis Spermatocele- Primary documented in this encounter Admitting Diagnoses Diagnosis Spermatocele documented in this encounter Administered Medications Medication OrderMAR ActionAction DateDoseRateSite aprepitant (EMEND) capsule 40 mg 40 mg, oral, Once, On Mitzi 03/16/25 at 1245, For 1 dose, Pre-op Given03/16/2025 12:43 PM EST40 mg fentaNYL (SUBLIMAZE) injection 25 mcg 25 mcg, intravenous, Every 5 min PRN, Pain Scale 1-5, Starting on Mitzi 03/16/25 at 1428, PACU (only),Up to a maximum dose of 150 mcg. Look-alike/sound-alike medication - verify indication for use. fentaNYL (SUBLIMAZE) injection 50 mcg 50 mcg, intravenous, Every 5 min PRN, Pain Scale 6-10, Starting on Mitzi 03/16/25 at 1428, PACU (only), Up to a maximum dose of 150 mcg. Look-alike/sound-alike medication - verify indication for use. HYDROmorphone (DILAUDID) injection 0.2 mg 0.2 mg, intravenous, Every 5 min PRN, Pain Scale 1-5 if pain not controlled by fentanyl, Starting on Mitzi 03/16/25 at 1428, PACU (only), Up to a maximum of 1.2 mg Look-alike/sound-alike medication - verify indication for use. HYDROmorphone (DILAUDID) injection 0.4 mg 0.4 mg, intravenous, Every 5 min PRN, for Pain Scale 6-10 if pain not controlled by fentanyl, Starting on Mitzi 03/16/25 at 1428, PACU (only), Up to a maximum of 1.2 mg Look-alike/sound-alike medication- verify indication for use. lactated ringers infusion 50 mL/hr, intravenous, Continuous, Starting on Mitzi 03/16/25 at 1245, Pre-op, If fluid restriction isnot indicated, infuse at a rate up to 5 mL/kg/hr not to exceed the total replacement volume (2 ml/kg/hr) from the time NPO status was initiated. Rigxzkqvg38/06/2025 12:47 PM ESTNew Bag03/16/2025 12:41 PM EST50 mL/hr50 mL/hr lactated ringers infusion 50 mL/hr, intravenous, Continuous, Starting on Mitzi 03/16/25 at 1430, PACU (only) naloxone (NARCAN) injection 0.1 mg 0.1 mg, intravenous, As needed, respiratory depression, Starting on Mitzi 03/16/25 at 1428, For 4 doses, PACU (only), Maximum dose: 0.4 mg Look-alike/sound-alike medication - verify indication for use. documented in this encounter Active and Recently Administered Medications Times are shown in EST.Medication Order/ aprepitant (EMEND) capsule 40 mg (COMPLETED) 40 mg, oral, Once, On Mitzi 03/16/25 at 1245, For 1 dose, Pre-op * 1243 (Given - Provider: Serenity So RN) levoFLOXacin (LEVAQUIN) IVPB 500 mg/100 mL in dextrose 5% (5 mg/mL premix) 500 mg, intravenous, at 100 mL/hr, Administer over 60 Minutes, call center analyst to O.R., First dose on Mitzi 03/16/25 at 1200, For 1 dose, Avoid administration through an intravenous line with a solution containing multivalent cations (eg, magnesium, calcium). Look-alike/sound-alike medication - verify indication for use. May alter blood glucose or insulin requirements., Specific Use Criteria: Other, Specify: penicillin allergy, Fluoroquinolones contain FDA Black Box warnings. Due to safety concerns, avoiduse in acute bacterial sinusitis, acute bacterial exacerbation of chronic bronchitis, or acute uncomplicated cystitis if possible. Use alternative treatment if available. I acknowledge the Black Box warnings of fluoroquinolones. * 1200 (Due) Medication Order/ lactated ringers infusion (CANCELED) 50 mL/hr, intravenous, Continuous, Starting on Mitzi 03/16/25 at 1245, Pre-op, If fluid restriction isnot indicated, infuse at a rate up to 5 mL/kg/hr not to exceed the total replacement volume (2 ml/kg/hr) from the time NPO status was initiated. * 1241 (New Bag - Provider: Serenity So RN) * 1246 (Paused - Provider: BETINA Márquez - Comment: Switch to gravity) * 1247 (Restarted - Provider: BETINA Márquez) * 1445 (Anesthesia Volume Adjustment - Provider: BETINA Márquez) * 1449 (Due: Order Ending - Provider: Automatic Transfer Provider - Comment: [Order ends at this time. Document the following action when infusion is complete: Stop Bag]) lactated ringers infusion 50 mL/hr, intravenous, Continuous, Starting on Mitzi 03/16/25 at 1430, PACU (only) * 1430 (Due) Medication Order bupivacaine PF (MARCAINE) 0.5 % (5 mg/mL) injection (CANCELED) As needed, Starting on Mitzi 03/16/25 at 1404, Intra-op * 1404 (Given - Provider: Kwame Shell MD) fentaNYL (SUBLIMAZE) injection 25 mcg 25 mcg, intravenous, Every 5 min PRN, Pain Scale 1-5, Starting on Mitzi 03/16/25 at 1428, PACU (only),Up to a maximum dose of 150 mcg. Look-alike/sound-alike medication - verify indication for use. fentaNYL (SUBLIMAZE) injection 50 mcg 50 mcg, intravenous, Every 5 min PRN, Pain Scale 6-10, Starting on Mitzi 03/16/25 at 1428, PACU (only), Up to a maximum dose of 150 mcg. Look-alike/sound-alike medication - verify indication for use. HYDROmorphone (DILAUDID) injection 0.2 mg 0.2 mg, intravenous, Every 5 min PRN, Pain Scale 1-5 if pain not controlled by fentanyl, Starting on Mitzi 03/16/25 at 1428, PACU (only), Up to a maximum of 1.2 mg Look-alike/sound-alike medication - verify indication for use. HYDROmorphone (DILAUDID) injection 0.4 mg 0.4 mg, intravenous, Every 5 min PRN, for Pain Scale 6-10 if pain not controlled by fentanyl, Starting on Mitzi 03/16/25 at 1428, PACU (only), Up to a maximum of 1.2 mg Look-alike/sound-alike medication- verify indication for use. naloxone (NARCAN) injection 0.1 mg 0.1 mg, intravenous, As needed, respiratory depression, Starting on Mitzi 03/16/25 at 1428, For 4 doses, PACU (only), Maximum dose: 0.4 mg Look-alike/sound-alike medication - verify indication for use. sodium chloride 0.9% (NS) irrigation bottle (CANCELED) As needed, Starting on Mitzi 03/16/25 at 1305, Intra-op * 1305 (Given - Provider: Kwame Shell MD - Comment: GIVEN TO ARI GRISSOM) documented in this encounter Additional Health Concerns Active ProblemsNoted DateDiagnosed DateAutogenerated Virocbh0703/16/2025documented as of this encounter Care Teams Team MemberRelationshipSpecialtyStart DateEnd Date Leatha Diaz APRN-[facility] [address] [place] [address] PCP - GeneralNurse Practitioner01/21/24documented as of this encounter
--- OUTSIDE RECORDS SUMMARY | 2025-03-16 12:47 | XMS_ITS | Encounter Summary ---
Author Organization [facility] tem Address [id number] [address] [place] [address] Care Team Providers Care Deputy Head Name Role Phone Leatha Diaz Primary Care Provid er Reason for Visit * Auth/CertSpecialtyDiagnoses / ProceduresReferred By ContactReferred To Contact Diagnoses Spermatocele Spermatocele [608.1] Procedures NE EXCIS SPERMATOCELE SPERMATOCELECTOMY Kwame Shell MD [address] [place] [address] Phone: tel: fax: Referral IDStatusReasonStart DateExpiration DateVisits RequestedVisits [id number] Encounter Details DateTypeDepartmentCare Team (Latest Contact Info)Xgfgtqqvvap54/06/2025 12:47 PM ESTAnesthesia Event [facility] [address] [facility] [place] [id number] Tono Botello MD [address] [place] [address] José Coffey MD [address] [place], [place] [id number] Anesthesia Record Procedure NameResponsible AnesthesiologistAnesthesia Start TimeAnesthesia Stop TimeSPERMATOCELECTOMY (Right)Tono Botello MD03/16/25 83070005/16/24 1454 HoeuEecuRbdahZothkwh30/06/053258583166Ce Fvbbg3480Yh Start Lmih7571Md Induction The patient was reevaluated immediately before moderate or deep sedation use and before anesthesia induction.1259An Agswzjhgbu7571Lerlnid Ready for Hixvcrp3862 Xrjvksfc2727Mq Tmcbnjtscz2801kk stop sich2602Pekkwghye/Transfer From the QY4621 Handoff to RNTransported to:PACU, Spontaneous Ventilation, O2 per Simple face mask, 6 LPM Pt. Tolerated procedure well, vital signs stable and document on nursing record Care transferred to receiving AR8388Xg Stop* NameTotalpropofol (DIPRIVAN) yhcluwutx487 mgrocuronium (ZEMURON) 50 mg/5 mL aqkgkcnau61 mg succinylcholine (ANECTINE) 20 mg/mL okaabmsdi850 mgfentaNYL (SUBLIMAZE) jxxufowtd482 mcglidocaine PF (XYLOCAINE) local injection 1%50 mgdexAMETHasone (DECADRON) injection 4 mg/mL4 mgondansetron PF (ZOFRAN) 2 mg/mL injection4 mg sugammadex (BRIDION) wdotvazmi573 mgmidazolam (VERSED) injection 1 mg/mL PF (Peds ONLY)2 mglevofloxacin (LEVAQUIN) IVPB 500 mg (premix)500 mgacetaminophen (OFIRMEV) IVPB 1000 mg/100 mL in mannitol and water (10 mg/mL premix)1,000 mg dexmedeTOMIDine (PRECEDEX) infusion 80 mcg/20 mL in sodium chloride 0.9% (4 mcg/mL premix)12 mcglactated ringers infusion1,000 mL * Agents Name Isoflurane Inspired Isoflurane * Blood No blood administrations on file. AurnPrxqvszFbvvjipckWavbrutZnolf40/25/25; 1001; Incision; Back; N/A; Wet to dry dressing with kerlix roll, foam tape01/02/25 1001 by Miguelito Ennis, RNWound 03/16/25; 1404; Incision; Scrotum; Right; ADHESIVE SKN CLS LIQUIBAND EXCEED OCTYL .8GM TOP STRL LF RPL [id number] [id number] (x1), SPONGE GZE 6.75X6IN BULKEE SUP CTTN ABS LF STRL RPL [id number] (x1), INCV/SUPPORT SCRT WHT B-B XL CTTN LG STRAP ADJ ELC WB ADLT M NS MFR DC USE [id number] (x1)03/16/25 1404 by JOSEPHINE Edenerieral IVPlacement Date: 01/02/25; Placement Time: 836; Catheter Size: 20 G; Orientation: Left, Posterior; Location: Hand; Site Prep: Chlorhexadine and isopropyl alcohol; Inserted by: Tanya Hughes RN; Insertion Attempts: 2; Patient Tolerance: Tolerated well; Removal Date: 03/16/25; Removal Time: 0837 by Tanya Hughes RN03/16/25 1540 by Viridiana Chavez RN Peripheral IVPlacement Date: 03/16/25; Placement Time: 1146; Catheter Size: 18 G; Orientation: Right; Location: Forearm; Site Prep: Chlorhexadine; Technique: Anatomical landmarks; Inserted by: Yaima So RN; Insertion Attempts: 1; Patient Tolerance: Tolerated well; Removal Date: 03/16/25; Removal Time: 1146 by Serenity So RN03/16/25 1540 by Viridiana Chavez RNETTPlacement Date: 03/16/25; Placement Time: 125 (created via procedure documentation); Type: Cuffed,Inflated; Tube Size: 8 mm; Laryngoscope: Other (Comment); Blade Size: 4; Location: Oral; Grade View: 1; Insertion Attempts: 1; Placement Verification: Auscultation, End tidal CO2, Symmetrical chest wall movement; Removal Date: 03/16/25; Removal Time: 1259 by BETINA Márquez03/16/25 1443 by Malina Hutchins APRN-LUANNdocumented in this encounter Social History Tobacco UseTypesPacks/DayYears UsedDateSmoking Tobacco: NeverSmokeless Tobacco: NeverAlcohol UseStandard Drinks/WeekCommentsNot Currently0 (1 standard drink = 0.6 oz pure alcohol)none since julyHC UtilitiesAnswerDate RecordedIn the past 12 months has the Surveypal, gas, oil, or water [employer] threatened to shut off services in your [...] in as a part of a household?No07/11/2024hildcareAnswerDate JqtoafnxRbjmknvgrYnnfbiy70/12/2019 EmploymentAnswerDate XowbnhceBsyhqwrrxnDscmeww29/12/2019Hunger ScreeningAnswer Date RecordedWithin the past 12 months we worried whether our food would run out before we got money to buy more.Never True03/02/2025Within the past 12 months the food we bought just didn't last and we didn't have money to get more.Never True03/02/2025Purpose - LifeAnswerDate RecordedPurpose and direction in life Cmpjtun0006/21/2020ex and Gender InformationValueDate RecordedSex Assigned at BirthNot on fileLegal DuoAbuf2312/14/2014 12:01 PM EDTGender IdentityNot on file Sexual OrientationNot on filedocumented as of this encounter OR Notes * Anesthesia Postprocedure Evaluation - Tono Botello MD - 03/17/2025 7:08 AM EST ANESTHESIA POST-EVALUATION [facility] Procedure Summary Date: 03/16/25 Room / Location: [facility] OR [address] [place] [address] SURGERY Anesthesia Start: 1247 Anesthesia Stop: 1454 Procedure: SPERMATOCELECTOMY (Right) Diagnosis: Spermatocele (Spermatocele [608.1]) Surgeons: Kwame Shell MD Responsible Provider: Tono Botello MD Anesthesia Type: general LMA ASA Status: 3 Vitals: 03/16/25 1547 BP: 140/80 Pulse: 92 Resp: 24 Temp: SpO2: 97% Patient Evaluated: Bedside Patient Participation: Complete - patient participated Patient Level of Consciousness: Awake Pain Management: Adequate Airway Patency: Patent Anesthetic Complications: No Cardiovascular Status: Hemodynamically Stable Respiratory Status: Stable/Baseline, Nonlabored Ventilation and Room Air Post-op Hydration: Euvolemic Final Anesthesia Type: general LMA Does patient meet criteria to D/C from PACU?: Yes Is patient sedated pharmacologically at PACU D/C?: No No notable events documented. * Anesthesia Postprocedure Evaluation - BETINA Márquez - 03/16/2025 2:53 PM EST ANESTHESIA POST-EVALUATION [facility] Procedure Summary Date: 03/16/25 Room / Location: [address] SURGERY Anesthesia Start: 1247 Anesthesia Stop: Procedure: SPERMATOCELECTOMY (Right) Diagnosis: Spermatocele (Spermatocele [608.1]) Surgeons: Kwame Shell MD Responsible Provider: Tono Botello MD Anesthesia Type: general LMA ASA Status: 3 Vitals: 03/16/25 1453 BP: 137/73 Pulse: 103 Resp: (!) 37 Temp: 36.7 ??C (98.1 ??F) SpO2: 94% Patient Evaluated: PACU Patient Participation: Complete - patient participated Patient Level of Consciousness: Sleeping and Responsive to light touch Pain Management: Adequate Airway Patency: Patent Anesthetic Complications: No Cardiovascular Status: Hemodynamically Stable Respiratory Status: Nonlabored Ventilation, Face Mask and Nasal Airway Post-op Hydration: Euvolemic Final Anesthesia Type: general endotracheal No notable events documented. * Anesthesia Procedure Notes - BETINA Márquez - 03/16/2025 1:10 PM EST Associated Order(s): Airway Airway Patient location during procedure: OR Urgency: Elective Date/Time: 03/16/2025 12:59 PM Airway not difficult IV In Situ: Peripheral General Information and Staff Service Provider: Jose Manuel Rodriguez MD MATHEMATICAL ENGINEERING TECHNICIAN: BETINA Márquez Placed by: BETINA Márquez Patient Identified, IV Checked, Risks and Benefits Discussed, Surgical Consent, Monitors and Equipment Checked, Pre-op Evaluation and Timeout Performed Fire Risk Assessment Score: 0 Consent for Emergent Airway (if performed for an anesthetic, see related documentation for consents) Risks and benefits: risks, benefits and alternatives were discussed Indications and Patient Condition Sedation level: Deep Preoxygenated: yesPatient position: Supine, Sniffing and Ramp MILS maintained throughout Mask difficulty assessment: Not Attempted Indications for airway management: Anesthesia and Airway Protection Complications: No Complicating Factors: No Final Airway Details Final airway type: ETT Endotracheal airway: Cuffed, Inflated and ETT - Single Lumen Techniques used for successful ETT Placement: Video Laryngoscopy, Rapid Sequence, With Stylet and Bass Cormack-Lehane Classification: Grade I Endotracheal tube insertion site: Oral Dentition Check Pre: See Pre-Evaluaton documentation Post Intubation Trauma? No Visibility: Cords Clear Blade: Other Blade size: #4 Placement verified by: chest auscultation, capnography and symmetrical chest wall movement ETT size: 8.0 mm Measured from: Lips Secured at (cm): 24 Number of attempts at approach: 1 * Anesthesia Preprocedure Evaluation - Jose Manuel Rodriguez MD - 03/16/2025 10:36 AM EST Images from the original note were not included. ANESTHESIA PRE-PROCEDURE EVALUATION [facility] Per PAT: 19 y.o. White or male, presents to [facility] for a pre-surgical H&P. The patient has been diagnosed with a right spermatocele. He complains of a painful lump of the right testicle. He c/o right testicular swelling. He c/o urinary frequency. Procedure(s): SPERMATOCELECTOMY NPO time: no Solids after MN Past Medical History: Diagnosis Date Acute appendicitis 02/20/2022 Anxiety Bipolar disorder ([facility]) Depression Fibromyalgia Fractures Headache Liver disease fatty liver Mood disorder Morbid obesity ([facility]) 03/02/2025 Sleep apnea does not use a cpap Spermatocele 03/02/2025 URI, acute 07/03/2024 Visual impairment EK12/15/24 Sinus tachycardia Low voltage, precordial leads Fatty liver disease BONNIE- cpap Bipolar No problems with anesthesia. No family history of problems with anesthesia. > 4 METs, no CP, SOB, orthopnea, edema, palpitations Cardiac, pulmonary, renal, gastrointestinal, neurologic and hematologic systems were reviewed with the patient, and all is negative except as noted above. Studies: No results found. No results found. No results found. No results found. No results found. No results found. No results found. Past Surgical History: Procedure Laterality Date COLONOSCOPY ESOPHAGOGASTRODUODENOSCOPY EXCISION CYST PILONIDAL N/A 01/02/2025 Performed by Belen Snyder MD at [facility] LAPAROSCOPIC APPENDECTOMY N/A 02/20/2022 Performed by Dean Atkins DO at [facility] Social History Socioeconomic History Marital status: Single [...] Risk (07/11/2024) Housing Instability Housing Instability: No Allergies Allergen Reactions Penicillins Anaphylaxis and Hives Patient Active Problem List Diagnosis At risk for intentional self-harm MDD (major depressive disorder), recurrent severe, without psychosis ([facility]) Generalized anxiety disorder with panic attacks Epididymal cyst Spermatocele Sleep apnea Morbid obesity ([facility]) Invalid input(s): LABALBU , BILITOT ANESTHESIA PHYSICAL EXAM Patient summary reviewed and nursing notes reviewed. No history of anesthetic complications Echocardiogram reviewed, stress test reviewed and patient has cardiac clearance. Airway Mallampati: III TM distance: >3 FB Neck ROM: full Patient is not intubated Dental : exam normal Pulmonary : exam normal Cardiovascular Exercise tolerance: >/= 4 METS (-) no history of heart murmur ECG reviewed Rhythm: Regular Rate: Normal Neuro Peds/appraiser oil and water Abdominal : exam normal NPO 8 hours Other Findings Eyes ANESTHESIA PLAN ASA 3 Anesthesia Type: general endotracheal and rapid sequence induction (Sore Throat, Hoarse Voice, Dental Damage, Myalgias, Serious Complications, Allergic Reactions, Post operative intubation MAP > 65 mm hg ) Induction: Intravenous and Rapid Sequence Induction Airway Management: Video Laryngoscopy Post-op Transfer Plan: Transfer to PACU Anesthetic risks, plan and alternatives discussed with Patient. Use of blood products discussed with Patient who consented to blood products. Plan discussed with MATHEMATICAL ENGINEERING TECHNICIAN. NPO Status: Past Medical History: Diagnosis Date Acute appendicitis 02/20/2022 Anxiety Bipolar disorder ([facility]) Depression Fibromyalgia Fractures Headache Liver disease fatty liver Mood disorder Morbid obesity ([facility]) 03/02/2025 Sleep apnea does not use a cpap Spermatocele 03/02/2025 URI, acute 07/03/2024 Visual impairment Past Surgical History: Procedure Laterality Date COLONOSCOPY ESOPHAGOGASTRODUODENOSCOPY EXCISION CYST PILONIDAL N/A 01/02/2025 Performed by Belen Snyder MD at [facility] LAPAROSCOPIC APPENDECTOMY N/A 02/20/2022 Performed by Dean Atkins DO at [facility] Allergies Allergen Reactions Penicillins Anaphylaxis and Hives Social History Tobacco Use Smoking Status Never Smokeless Tobacco Never Alcohol Use: Unknown (03/13/2025) AUDIT-C Frequency of Alcohol Consumption: Not on file Average Number of Drinks: Patient does not drink Frequency of Binge Drinking: Not on file OB History: Estimated Date of Delivery: None noted. Scheduled Meds: Infusion Meds: No current facility-administered medications for this encounter. PRN Meds: Vitals: There were no vitals taken for this visit. Vent: Labs: Echo: No results found. Cath: No results found. EKG: No results found. Stress: No results found. CXR: No results found. Carotid: No results found. Risk Factors: PONV: Low Risk Total Score: 1 Score Rules Non-smoker Criteria that do not apply: Female patient History of PONV and/or Motion Sickness Intended opioid administration RCRI: Low Risk: Score of 0 = 3.9% (2.8-5.4%) Risk of major cardiac event Score of 1 = 6.0% (4.9-7.4%) Risk of major cardiac event Total Score: 0 Score Rules Criteria that do not apply: Cerebrovascular Disease Ischemic Heart Disease Congestive Heart Failure Elevated Risk Surgery Pre-operative Treatment with Insulin Pre-operative Creatinine >2 mg/dL / 176.8 mol/L documented in this encounter Plan of Treatment DateTypeDepartmentCare Team (Latest Contact Info)Yxlhewzfddr08/21/2025 2:15 PM ESTOffice Visit [facility] [address] [place] [address] Kwame Shell MD [address] [place] [address] 04/05/2025 9:30 AM ESTOffice Visit [facility] [address] [place] [phone] Franci Byrd, DETECTIVE [employer] [address] [place] [address] documented as of this encounter Goals GoalPatient Goal TypeAssociated ProblemsRecent ProgressPatient-Stated?Author Autogenerated Goal Care PlanAutogenerated ProblemNoGriffin, Naomidocumented as of this encounter Procedures Procedure NamePriorityDate/TimeAssociated DiagnosisCommentsPR AN ELECTIVE ENDOTRACHEAL ZQQWGUYwrvffq23/06/2025 12:59 PM EST documented in this encounter Results * NE AN ELECTIVE ENDOTRACHEAL AIRWAY (03/16/2025 12:59 PM EST) Malina Jiménez APRN-CRNA - 03/16/2025 12:59 PM EST BETINA Márquez 03/16/2025 1:11 PM Airway Patient location during procedure: OR Urgency: Elective Date/Time: 03/16/2025 12:59 PM Airway not difficult IV In Situ: Peripheral General Information and Staff Service Provider: Jose Manuel Rodriguez MD MATHEMATICAL ENGINEERING TECHNICIAN: BETINA Márquez Placed by: ??BETINA Márquez Patient Identified, IV Checked, Risks and Benefits Discussed, Surgical Consent, Monitors and Equipment Checked, Pre-op Evaluation and Timeout Performed Fire Risk Assessment Score: 0 Consent for Emergent Airway (if performed for an anesthetic, see related documentation for consents) Risks and benefits: risks, benefits and alternatives were discussed Indications and Patient Condition Sedation level: Deep Preoxygenated: yesPatient position: Supine, Sniffing and Ramp MILS maintained throughout Mask difficulty assessment: Not Attempted Indications for airway management: Anesthesia and Airway Protection Complications: No Complicating Factors: No Final Airway Details Final airway type: ETT Endotracheal airway: Cuffed, Inflated and ETT - Single Lumen Techniques used for successful ETT Placement: Video Laryngoscopy, Rapid Sequence, With Stylet and Bass Cormack-Lehane Classification: Grade I Endotracheal tube insertion site: Oral Dentition Check Pre: See Pre-Evaluaton documentation Post Intubation Trauma? No Visibility: ??Cords Clear Blade: Other Blade size: #4 Placement verified by: chest auscultation, capnography and symmetrical chest wall movement ETT size: 8.0 mm Measured from: Lips Secured at (cm): 24 Number of attempts at approach: 1 Authorizing ProviderResult TypeResult StatusJobel Rodriguez MDANESTHESIA ORDERABLESFinal Result documented in this encounter Visit Diagnoses Not on filedocumented in this encounter Administered Medications Medication OrderMAR ActionAction DateDoseRateSite acetaminophen (OFIRMEV) IVPB Premix intravenous, Administer over 15 Minutes, As needed, Starting on Mitzi 03/16/25 at 1315, Anesthesia Intra-op Given03/16/2025 1:15 PM EST1,000 mg dexAMETHasone (DECADRON) injection intravenous, As needed, Starting on Mitzi 03/16/25 at 1306, Anesthesia Intra-op Given03/16/2025 1:06 PM EST4 mg dexmedeTOMIDine in 0.9 % NaCL (PRECEDEX) injection intravenous, As needed, Starting on Mitzi 03/16/25 at 1414, Anesthesia Intra-op Given03/16/2025 2:20 PM EST4 yvdDmqwg86/06/2025 2:17 PM EST4 vczQvhjw67/06/2025 2:14 PM EST4 mcg fentaNYL (SUBLIMAZE) injection intravenous, As needed, Starting on Mitzi 03/16/25 at 1257, Anesthesia Intra-op Given03/16/2025 1:55 PM EST50 blsIjfxr91/06/2025 1:10 PM EST50 mcgGiven 03/16/2025 12:57 PM CNO085 mcg lactated ringers infusion 50 mL/hr, intravenous, Continuous, Starting on Mitzi 03/16/25 at 1245, Pre-op, If fluid restriction isnot indicated, infuse at a rate up to 5 mL/kg/hr not to exceed the total replacement volume (2 ml/kg/hr) from the time NPO status was initiated. Ouylnkvrn69/06/2025 12:47 PM ESTNew Bag03/16/2025 12:41 PM EST50 mL/hr50 mL/hr levoFLOXacin (LEVAQUIN) IVPB 500 mg/100 mL in dextrose 5% (5 mg/mL premix) intravenous, Administer over 60 Minutes, As needed, Starting on Mitzi 03/16/25 at 1304, Anesthesia Intra-op Given03/16/2025 1:04 PM VGR403 mg lidocaine PF (XYLOCAINE) 10 mg/mL (1 %) injection intravenous, As needed, Starting on Mitzi 03/16/25 at 1257, Anesthesia Intra-op Given03/16/2025 12:57 PM EST50 mg midazolam (PF) (VERSED) injection intravenous, As needed, Starting on Mitzi 03/16/25 at 1251, Anesthesia Intra-op Given03/16/2025 12:51 PM EST2 mg ondansetron (PF) (ZOFRAN) injection intravenous, As needed, Starting on Mitzi 03/16/25 at 1403, Anesthesia Intra-op Given03/16/2025 2:03 PM EST4 mg propofoL (DIPRIVAN) infusion intravenous, As needed, Starting on Mitzi 03/16/25 at 1257, Anesthesia Intra-op Given03/16/2025 2:01 PM EST30 bpHbsfg9403/16/2025 12:57 PM NDX914 mg rocuronium (ZEMURON) injection intravenous, As needed, Starting on Mitzi 03/16/25 at 1300, Anesthesia Intra-op Given03/16/2025 1:10 PM EST10 asKazif5003/16/2025 1:00 PM EST40 mg succinylcholine (ANECTINE) injection intravenous, As needed, Starting on Mitzi 03/16/25 at 1257, Anesthesia Intra-op Given03/16/2025 12:57 PM GPE726 mg sugammadex (BRIDION) injection intravenous, As needed, Starting on Mitzi 03/16/25 at 1430, Anesthesia Intra-op Given03/16/2025 2:30 PM AWC517 mgdocumented in this encounter Additional Health Concerns Active ProblemsNoted DateDiagnosed DateAutogenerated Fbfgbfl9103/16/2025documented as of this encounter Care Teams Team MemberRelationshipSpecialtyStart DateEnd Date Leatha Diaz APRN-CHECO [address] [place] [address] PCP - GeneralNurse Practitioner01/21/24documented as of this encounter
--- OUTSIDE RECORDS SUMMARY | 2025-03-16 13:00 | XMS_ITS | Encounter Summary ---
Author Organization [facility] tem Address [id number] [address] [place] [address] Care Team Providers Care Stakeholder Manager Name Role Phone Leatha Diaz Primary Care Provid er Reason for Visit * Auth/CertSpecialtyDiagnoses / ProceduresReferred By ContactReferred To Contact Diagnoses Spermatocele Spermatocele [608.1] Procedures [place] [facility] SPERMATOCELE SPERMATOCELECTOMY Kwame Shell MD [address] [place] [address] Phone: tel: fax: Referral IDStatusReasonStart DateExpiration DateVisits RequestedVisits [id number] Encounter Details DateTypeDepartmentCare Team (Latest Contact Info)Qgjrqxdbgzc03/06/2025 1:00 PM EST - 03/16/2025 3:15 PM ESTSurgery [facility] [address] [place] [phone] Kwame Shell MD [address] [place] [address] SPERMATOCELECTOMY [46911 (CPT??)] Surgery Details Date/TimeStatusLocationORServicePatient ClassCase ClassCase TypeTrauma Case? 03/16/2025 1:00 PMPostedTOLEDO SURGERYOR [facility] ElectivePanel 1 ProcedureLRBAnesOp RegionWound ClassCommentsSPERMATOCELECTOMY RightGeneralClean Contaminated SurgeonSurgeon RoleServicePanelFumo, Kwame E, MDPrimaryUrology1 Case Notes JADE REQ 90W, EPIC 109W DNM Special Needs DNM documented in this encounter Social History Tobacco UseTypesPacks/DayYears UsedDateSmoking Tobacco: NeverSmokeless Tobacco: NeverAlcohol UseStandard Drinks/WeekCommentsNot Currently0 (1 standard drink = 0.6 oz pure alcohol)none since julyHC UtilitiesAnswerDate RecordedIn the past 12 months has the [employer], gas, oil, or water [employer] threatened to shut off services in your [...] in as a part of a household?No07/11/2024hildcareAnswerDate DynledsfMjagdlbeiRambmhi02/12/2019 EmploymentAnswerDate IcwzcolvXhhsvdrnaoTimiqce77/12/2019Hunger ScreeningAnswer Date RecordedWithin the past 12 months we worried whether our food would run out before we got money to buy more.Never True03/02/2025Within the past 12 months the food we bought just didn't last and we didn't have money to get more.Never True03/02/2025Purpose - LifeAnswerDate RecordedPurpose and direction in life Hufcuiq3906/21/2020ex and Gender InformationValueDate RecordedSex Assigned at BirthNot on fileLegal CebQtkw5612/14/2014 12:01 PM EDTGender IdentityNot on file Sexual OrientationNot on filedocumented as of this encounter Last Filed Vital Signs Vital SignReadingTime TakenCommentsBlood Xmtzldjz058/7303/16/2025 2:53 PM EST Qyhqc67954/06/2025 2:53 PM REXRdqorqdflrz21.7 ??C (98.1 ??F)03/16/2025 2:53 PM ESTRespiratory Edgr460703/16/2025 2:53 PM ESTOxygen Hnfutsmlts50%03/16/2025 2:53 PM ESTInhaled Oxygen Concentration--Qtplpg528.8 kg (456 lb)03/16/2025 11:26 AM FCZNqrwch773.9 cm (6')03/16/2025 11:26 AM ESTBody Mass Index61.8403/16/2025 [...] on your side. ___ Special Instructions: ___ REFURBISH TECHNICIAN procedures: You may have varying amounts of [...] or approved for treating a specific patient. [employer] and its affiliates disclaim any warranty or liability relating to this information or the use thereof. The use of this information is governed by the Terms of Use, available at https://www.Questra.Ourcast/en/know/ltmexcxv-szirygsoqvlfw-zdtxu Copyright Copyright ?? 2022 [employer] and its affiliates and/or licensors. All rights reserved. * Attachments The following attachments cannot be sent through Care Everywhere. * Spermatocelectomy (Uzbek) documented in this encounter Medications at Time of Discharge MedicationSigDispense QuantityRefillsLast FilledStart DateEnd Date acetaminophen (TYLENOL EXTRA STRENGTH) 500 mg tablet Take 2 tablets (1,000 mg total) by mouth every 6 (six) hours as needed for pain. 30 tablet 03/16/2025 ARIPiprazole (ABILIFY) 5 mg tablet Indications:MDD (major depressive disorder), recurrent severe, without psychosis ([facility])Take 1 tablet (5 mg total) by mouth in the morning. 90 tablet HYDROcodone-acetaminophen (NORCO) 5-325 mg per tablet Indications:SpermatoceleTake 1 tablet by mouth every 6 (six) hours as needed for pain for up to 3 days. Max Daily Amount: 4tablets 12 tablet sertraline (ZOLOFT) 100 mg tablet Take 1 [...] AND PHYSICAL INTERVAL NOTE: Ta Duncan 2005 [id number] H&P reviewed. The patient was examined and there are no changes to the H&P. Kwame Shell MD Source Note - Argentina Kim APRN-JAKE - 03/02/2025 12:15 PM EDT PRE-ADMISSION TESTING HISTORY AND PHYSICAL EXAM DATE: 03/02/25 PCP: HERLINDA MayDIGITAL PRODUCTION MANAGER CHIEF COMPLAINT: spermatocele HISTORY OF PRESENT ILLNESS: Ta Duncan, a 19 y.o. White or male, presents to [facility] for a pre-surgical H&P. The patient has [...] Date Acute appendicitis 02/20/2022 Anxiety Bipolar disorder ([facility]) Depression Fibromyalgia Fractures Headache Liver disease fatty liver Mood disorder Morbid obesity ([facility]) 03/02/2025 Sleep apnea does not use a cpap Spermatocele 03/02/2025 URI, acute 07/03/2024 Visual impairment PAST SURGICAL HISTORY: Past Surgical History: Procedure Laterality Date COLONOSCOPY ESOPHAGOGASTRODUODENOSCOPY EXCISION CYST PILONIDAL N/A 01/02/2025 Performed by Belen Snyder MD at [facility] LAPAROSCOPIC APPENDECTOMY N/A 02/20/2022 Performed by Dean Atkins DO at [facility] FAMILY HISTORY: Family History Problem Relation [...] is cooperative. PERTINENT TESTING AVAILABLE IN [facility] (WITHIN THE PAST 2 YEARS): EK12/15/24 Sinus [...] most recent lab values available in [facility] at the time ofthe appointment. ASSESSMENT / [...] Kwame Shell MD, Hardy Lazo MD, Manuel Deglado MD, Darius Medel MD Urology - History [...] Date Acute appendicitis 02/20/2022 Anxiety Bipolar disorder ([facility]) Depression Fibromyalgia Fractures Headache Liver disease fatty liver Mood disorder Morbid obesity ([facility]) 03/02/2025 Sleep apnea does not use a cpap Spermatocele 03/02/2025 URI, acute 07/03/2024 Visual impairment Past Surgical History: Past Surgical History: Procedure Laterality Date COLONOSCOPY ESOPHAGOGASTRODUODENOSCOPY EXCISION CYST PILONIDAL N/A 01/02/2025 Performed by Belen Snyder MD at [facility] LAPAROSCOPIC APPENDECTOMY N/A 02/20/2022 Performed by Dean Atkins DO at [facility] Medications: Scheduled Meds: Continuous Infusions:No current [...] - 03/16/2025 4:19 PM EST Attending Attestation: I, Kwame Shell MD, the patient. I performed [...] SURGERY DATE: 03/16/2025 Surgeon(s): Kwame Shell MD LEADERSHIP INTERN: Gera West MD PREOPERATIVE DIAGNOSIS: Spermatocele [608.1] [...] Plan of Treatment DateTypeDepartmentCare Team (Latest Contact Info)Xenhwsvmhtj88/21/2025 2:15 PM ESTOffice Visit [facility] [address] [place] [address] Kwame Shell MD [address] [place] [address] 04/05/2025 9:30 AM ESTOffice Visit [facility] [address] [place] [address] Franci Byrd, PRE PLANNING ADVISOR-CERAMIC CAPACITOR PROCESSOR [address] [place] [address] NameTypePriorityAssociated DiagnosesDate/TimeSurgical PathologyPathology and CytologyRoutine Spermatocele 03/16/2025 [...] encounter Visit Diagnoses Diagnosis Spermatocele- Primary Spermatocele documented in this encounter Admitting Diagnoses Diagnosis Spermatocele documented in this encounter Administered Medications Medication OrderMAR ActionAction DateDoseRateSite aprepitant (EMEND) capsule 40 mg 40 mg, oral, Once, On Mitzi 03/16/25 at 1245, For 1 dose, Pre-op Given03/16/2025 12:43 PM EST40 mg bupivacaine PF (MARCAINE) 0.5 % (5 mg/mL) injection As needed, Starting on Mitzi 03/16/25 at 1404, Intra-op Given03/16/2025 2:04 PM EST6 mLOperative Site fentaNYL (SUBLIMAZE) injection 25 mcg 25 mcg, [...] from the time NPO status was initiated. Vybjjgwdj47/06/2025 12:47 PM ESTNew Bag03/16/2025 12:41 PM EST50 [...] use. 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
[2025-03-18 06:52] VITALS: BP 138/91; PULSE 90; TEMP 36.8; O2SAT 98; BMI 61.0
--- OUTSIDE RECORDS SUMMARY | 2025-03-18 08:06 | XMS_ITS | Encounter Summary ---
Author Organization [email or web address] [facility] tem Address [id number] [address] [place] [address] Care Team Providers Care Bi Solutions Architect Name Role Phone Leatha Diaz Primary Care Provid er Encounter Details DateTypeDepartmentCare Team (Latest Contact Info)Cheyisbakfd65/03/2025Travel Social History Tobacco UseTypesPacks/DayYears UsedDateSmoking Tobacco: NeverSmokeless [...] in as a part of a household?No07/11/2024hildcareAnswerDate RnzunmlaLqvjaanxaCajqwnc08/04/2019 EmploymentAnswerDate GpzqnpbgKvigkkqyvnRdopjvl30/12/2019Hunger ScreeningAnswer Date RecordedWithin the past 12 months we worried whether our food would run out before we got money to buy more.Never True03/02/2025Within the past 12 months the food we bought just didn't last and we didn't have money to get more.Never True03/02/2025Purpose - LifeAnswerDate RecordedPurpose and direction in life Qomncda0806/21/2020ex and Gender InformationValueDate RecordedSex Assigned at BirthNot on fileLegal QsdBnkd9312/14/2014 12:01 PM EDTGender IdentityNot on file Sexual OrientationNot on filedocumented as of this encounter Functional Status documented as of this encounter Plan of Treatment DateTypeDepartmentCare Team (Latest Contact Info)Zbkvscfdxsm75/21/2025 2:15 PM ESTOffice Visit [facility] [address] [place] [address] Kwame Shell MD [address] [place] [address] 04/05/2025 9:30 AM ESTOffice Visit [facility] [address] [place] [phone] Franci Byrd APRN-JAKE [address] [place], [place] [phone] documented as of this encounter Goals GoalPatient Goal TypeAssociated ProblemsRecent ProgressPatient-Stated?Author Autogenerated Goal Care PlanAutogenerated ProblemNoGriffin, Naomidocumented as of this encounter Visit Diagnoses Not on filedocumented in this encounter Additional Health Concerns Active ProblemsNoted DateDiagnosed DateAutogenerated Kvdefic3203/16/2025documented as of this encounter Care Teams Team MemberRelationshipSpecialtyStart DateEnd Date Leatha Diaz APRN-CHECO [address] [place] [phone] PCP - GeneralNurse Practitioner01/21/24documented as of this encounter
--- OUTSIDE RECORDS SUMMARY | 2025-03-18 08:06 | XMS_ITS | Clinical Summary ---
Author Organization [facility] Address [address] [place] [address] Care Team Providers Care Washcoat Wiper Name Role Phone Unavailable Primary Care Provider Unavailabl e Social History Tobacco UseTypesPacks/DayYears UsedDateSmoking Tobacco: Never AssessedSex and Gender InformationValueDate RecordedSex Assigned at BirthNot on fileLegal Sex Male07/23/2022 8:05 PM EDTGender IdentityNot on fileSexual OrientationNot on file Last Filed Vital Signs Vital SignReadingTime TakenCommentsBlood Pressure--Pulse--Temperature-- Respiratory Rate--Oxygen Saturation--Inhaled Oxygen Concentration--Cbmahx738 kg (300 lb)05/14/2021 12:00 PM DRPUilxct509.9 cm (6')05/14/2021 12:00 PM ESTBody Mass Index40.69005/14/2021 12:00 PM EST Plan of Treatment Not on file Insurance * Guarantor: Paul DuncannAccount TypeRelation to PatientDate of BirthPhone Billing AddressPersonal/KjpyyoDvhk45/03/2004 [facility] [place] [address]
--- OUTSIDE RECORDS SUMMARY | 2025-03-18 08:06 | XMS_ITS | Encounter Summary ---
Author Organization [facility] tem Address [id number] [address] [place] [address] Care Team Providers Care Desk Interviewer Name Role Phone Leatha Diaz Primary Care Provid er Encounter Details DateTypeDepartmentCare Team (Latest Contact Info)Akhrcohwvlv77/28/2025Results Follow-Up [facility] [place] [phone] Enid Taveras APRN-CNP [address] [place] [address] Urinalysis, Urine Culture Social History Tobacco UseTypesPacks/DayYears UsedDateSmoking Tobacco: NeverSmokeless Tobacco: NeverAlcohol UseStandard Drinks/WeekCommentsNot Currently0 (1 standard drink = 0.6 oz pure alcohol)none since julyHC UtilitiesAnswerDate RecordedIn the past 12 months has the [employer], gas, oil, or water [employer] threatened to shut off services in your [...] as a part of a household?No07/11/2024 ChildcareAnswerDate AmshitlpPjocqyhbwGhgngzl71/12/2019EmploymentAnswerDate HdxlknirKcxvorphexUtkagfk97/12/2019Hunger ScreeningAnswerDate RecordedWithin the past 12 months we worried whether our food would run out before we got money to buy more.Never True03/02/2025Within the past 12 months the food we bought just didn't last and we didn't have money to get more.Never True03/02/2025Purpose - LifeAnswerDate RecordedPurpose and direction in jicaDzqqrch14/11/2021ex and Gender InformationValueDate RecordedSex Assigned at BirthNot on fileLegal Sex Male12/14/2014 12:01 PM EDTGender IdentityNot on fileSexual OrientationNot on filedocumented as of this encounter Plan of Treatment DateTypeDepartmentCare Team (Latest Contact Info)Jxbanrfkwwk31/21/2025 2:15 PM ESTOffice Visit [facility] [address] [place] [address] Kwame Shell MD [address] [place] [address] 04/05/2025 9:30 AM ESTOffice Visit [facility] [address] [place] [phone] Franci Byrd APRN-IT INFRASTRUCTURE SPECIALIST [address] [facility] [place], [place] [phone] documented as of this encounter Goals GoalPatient Goal TypeAssociated ProblemsRecent ProgressPatient-Stated?Author Autogenerated Goal Care PlanAutogenerated ProblemNoGriffin, Naomidocumented as of this encounter Visit Diagnoses Not on filedocumented in this encounter Additional Health Concerns Active ProblemsNoted DateDiagnosed DateAutogenerated Azobnjf2403/16/2025documented as of this encounter Care Teams Team MemberRelationshipSpecialtyStart DateEnd Date Leatha Diaz APRN-NP [address] [place] [phone] PCP - GeneralNurse Practitioner01/21/24documented as of this encounter
--- OUTSIDE RECORDS SUMMARY | 2025-03-18 08:06 | XMS_ITS | Encounter Summary ---
Author Organization [facility] tem Address [facility] [id number] [address] [place] [address] Care Team Providers Care Inner Tube Cutter Name Role Phone Leatha Diaz Primary Care Provid er Encounter Details DateTypeDepartmentCare Team (Latest Contact Info)Ypleagliycq19/07/2025Telephone [facility] [address] [place] [phone] Isabel Casper RMA Social History Tobacco UseTypesPacks/DayYears UsedDateSmoking Tobacco: NeverSmokeless Tobacco: NeverAlcohol UseStandard Drinks/WeekCommentsNot Currently0 (1 standard drink = 0.6 oz pure alcohol)none since julyHC UtilitiesAnswerDate RecordedIn the past 12 months has the [employer], gas, oil, or water [employer] threatened to shut off services in your [...] stay in as a part of a household?No5ChildcareAnswerDate DjzajqjeSphmvsladYyiqppc53/12/2019 EmploymentAnswerDate YcmvmqvvAcpfrzrsenVsdgxos08/12/2019Hunger ScreeningAnswer Date RecordedWithin the past 12 months we worried whether our food would run out before we got money to buy more.Never True03/02/2025Within the past 12 months the food we bought just didn't last and we didn't have money to get more.Never True03/02/2025Purpose - LifeAnswerDate RecordedPurpose and direction in life Leurgmi2606/21/2020ex and Gender InformationValueDate RecordedSex Assigned at BirthNot on fileLegal JjvZcom3512/14/2014 12:01 PM EDTGender IdentityNot on file Sexual OrientationNot on filedocumented as of this encounter Miscellaneous Notes * Telephone Encounter - TARA Nicholson - 03/17/2025 10:12 AM EST Pt calls stating insurance won't cover the Doxycycline. He was told by the Pharmacist that he either needs to try the slow release or generic. * Telephone Encounter - Kwame Shell MD - 03/17/2025 10:12 AM EST Switched to Bactrim * Telephone Encounter - TARA Nicholson - 03/17/2025 10:12 AM EST Pt was notified. documented in this encounter Plan of Treatment DateTypeDepartmentCare Team (Latest Contact Info)Vfrfgrjxdvg79/21/2025 2:15 PM ESTOffice Visit [facility] [address] [place] [address] Kwame Shell MD [address] [place] [address] 04/05/2025 9:30 AM ESTOffice Visit [facility] [address] [place] [phone] Franci Byrd APRN-RING MAKER [address] [place], [place] [phone] documented as of this encounter Goals GoalPatient Goal TypeAssociated ProblemsRecent ProgressPatient-Stated?Author Autogenerated Goal Care PlanAutogenerated ProblemNoGriffin, Naomidocumented as of this encounter Visit Diagnoses Not on filedocumented in this encounter Additional Health Concerns Active ProblemsNoted DateDiagnosed DateAutogenerated Apxtrek4203/16/2025documented as of this encounter Care Teams Team MemberRelationshipSpecialtyStart DateEnd Date Leatha Diaz APRN-SLITTER OPERATOR [address] [place] [address] PCP - GeneralNurse Practitioner01/21/24documented as of this encounter
--- OUTSIDE RECORDS SUMMARY | 2025-03-18 08:06 | XMS_ITS | Clinical Summary ---
Author Organization [employer] s tem Address [id number] [address] [place] [address] Care Team Providers Care Executive Administrative Assistant Name Role Phone Leatha Diaz Primary Care [...] by mouth in the morning. 90 tablet 5Active sertraline (ZOLOFT) 100 mg tablet Take 1 tablet (100 mg total) by mouth in the morning.Active acetaminophen (TYLENOL EXTRA STRENGTH) 500 mg tablet Take 2 tablets (1,000 mg total) by mouth every 6 (six) hours as needed for pain. 30 tablet 5Active HYDROcodone-acetaminophen (NORCO) 5-325 mg per tablet Indications:SpermatoceleTake 1 tablet by mouth every 6 (six) hours as needed for pain for up to 3 days. Max Daily Amount: 4tablets 12 tablet 5Active sulfamethoxazole-trimethoprim (BACTRIM DS) 800-160 mg per tablet Take 1 tablet by mouth in the morning and 1 tablet before bedtime. Do all this for 3 days. 6 tablet /5Active doxycycline (DORYX) 150 MG EC tablet Take 1 tablet (150 mg total) by mouth in the morning and 1 tablet (150 mg total) before bedtime. Doall this for 5 days. 10 tablet 5105/17/2024Discontinued Active Problems ProblemNoted DateDiagnosed DateMorbid uixxjve0803/02/20256401Rgcecenjxdkt79/21/2025 Epididymal cyst01/12/2025 Overview (01/24/2025): 01/24/25 Discussed risks benefits complications of surgery. Patient risk factors include obesity. Understands we would like to proceed. 01/11/25 Interested in surgical removal of cyst. Therefore, we will schedule him with Dr. Shell for further discussion. He declined exam today. Will defer to Dr Shell. I recommend ice, elevation, Nsaids for pain MDD (major depressive disorder), recurrent severe, without /04/2025 Generalized anxiety disorder with panic rsoflge6207/12/2024t risk for intentional self-harm07/11/2024Sleep apnea Overview (03/02/2025): does not use a cpap Resolved Problems ProblemNoted DateDiagnosed DateResolved DateAcute ghazrsomolda75/13/2022 03/02/2025 Encounters DateTypeDepartmentCare MasuLiocvlvvdgb67/07/2025Telephone [facility] [address] [place] [address] Isabel Casper Rachid 03/16/2025 1:00 PM EST - 03/16/2025 3:15 PM ESTSurgery [facility] [address] [place] [address]. [place] [address] Kwame Shell MD SPERMATOCELECTOMY [[id number] (CPT??)]03/16/2025 12:47 PM ESTAnesthesia Event [facility] [address] [place] [address]. [place] [address] Tono Botello MD Stroud, Jason, MD 03/16/2025 11:01 AM EST - 03/16/2025 4:05 PM ESTHospital Encounter [facility] [address] [place] [address]. [place] [address] Kwame Shell MD Spermatocele Discharge Disposition: Home03/16/2025Telephone [facility] [address] [place] [address]. [place] [address] Kwame Shell MD 03/16/20252055Akhsrh35/03/2025 10:30 AM ESTOffice Visit [facility] [address] [place] [address] Franci Byrd APRN-CNP Pilonidal disease (Primary Dx)03/13/20257956Bcufxy20/28/2025Results Follow-Up [facility] [address] [place] [address] Enid Taveras APRN-CNP Urinalysis, Urine Ncqkcfk6403/02/2025 12:15 PM EDTProcedure visit [facility] On [address] [address] Xqkcyodhflhd71/23/3967Kmdjwb76/06/2025 10:15 AM EDTOffice Visit [facility] [address] [place] [address] Franci Byrd APRN-CNP Pilonidal disease (Primary Dx)02/13/20257392Cyndmj96/16/2025 10:30 AM EDTOffice Visit [facility] [address] [place] [address] Kwame Shell MD Epididymal cyst (Primary Dx)01/24/2025Telephone [facility] [address] [place] [address] Kwame Shell MD 01/24/20257946Bihwdm23/11/2025Telephone [facility] [address] [place] [address] Bere Dang, Rachid 01/16/2025 9:30 AM EDTOffice Visit [facility] [address] [place] [address] Franci Byrd, SENIOR USER EXPERIENCE ARCHITECT-CUSTOMER SERVICE RECEPTIONIST Pilonidal disease (Primary Dx)01/16/20250866Vgonwk72/03/2025 10:30 AM EDTOffice Visit [facility] [address] [place] [address] [place] [address], [place] [address] Enid Taveras, SENIOR USER EXPERIENCE ARCHITECT-CUSTOMER SERVICE RECEPTIONIST Epididymal cyst (Primary Dx); Right wroxtpacl34/03/5930Ifzxvz50/29/2025Telephone [facility] [address] [place] [address] Ese Reyna, [facility] 01/05/2025Orders Only [facility] Sign In [address] [place] [address] Dean Atkins, DO 01/03/2025Telephone [facility] [address] [place] [address] Eleanor Kruse, [facility] 01/02/2025 10:00 AM EDT - 01/02/2025 11:00 AM EDTSurgery [facility] [address] [place] [address] Belen Snyder MD EXCISION CYST PILONIDAL [[id number] (CPT??)]01/02/2025 9:10 AM EDTAnesthesia Event [facility] - Surgery [address] [place] [address] Balaji Castelan, DO 01/02/2025 7:54 AM EDT - 01/02/2025 11:19 AM EDTHospital Encounter [facility] - [facility] [address] [facility] [place] [address] Belen Snyder MD Discharge Disposition: Home01/02/20254181Mzrurb95/22/2025Tephone [facility] [address] [place] [address] Bere Dang TARA 12/29/2024 11:49 PM EDT - 12/30/2024 2:47 AM [facility] [address] [place] [address] Franci Hinkle, DO Epididymal cyst (Primary Dx); Right hydrocele Discharge Disposition: Home12/29/2024Travelfrom Last 3 Months Family History Medical HistoryRelationNameCommentsNo Known ProblemsFatherHeart diseaseMaternal GrandmotherThyroid diseaseMaternal GrandmotherCancerMaternal great-grandfather Lung cancerMaternal great-grandfatherFibromyalgiaMotherHeart diseaseMother Thyroid diseaseMotherAnesthesia problemsNeg HxRelationNameStatusCommentsFather AliveMaternal GrandmotherDeceasedMaternal great-grandfatherDeceasedMotherAlive Social History Tobacco UseTypesPacks/DayYears UsedDateSmoking Tobacco: NeverSmokeless Tobacco: Never Tobacco Cessation:Counseling Given: Not Answered Alcohol UseStandard Drinks/WeekCommentsNot Currently0 (1 standard drink = 0.6 oz pure alcohol)none since julyHC UtilitiesAnswerDate RecordedIn the past 12 months has the [employer], [employer], or water [employer] threatened to shut off services in your home?07/11/2024PRAPARE - TransportationAnswerDate RecordedIn the past 12 months, has lack of transportation kept you from medical appointments or from getting medications?07/11/2024In the past 12 months, has lack of transportation kept you from meetings, work, or from getting things needed for daily living?07/11/2024UDIT-CAnswerDate RecordedFrequency of Alcohol ConsumptionNot on file03/13/2025Q2: How many drinks containing alcohol do you have on a typical day when you are drinking?Patient does not drink 03/13/2025Frequency of Binge DrinkingNot on file03/13/2025Housing Instability AnswerDate RecordedAre you worried or concerned that in the next two months you may not have stable housing that you own, rent or stay in as a part of a household?No5ChildcareAnswerDate DaijusmrMbypjxxltCcuncot34/12/2019 EmploymentAnswerDate JahkjsjxJzerddbhhyKxlcqli72/12/2019Hunger ScreeningAnswer Date RecordedWithin the past 12 months we worried whether our food would run out before we got money to buy more.Never True03/02/2025Within the past 12 months the food we bought just didn't last and we didn't have money to get more.Never True03/02/2025Purpose - LifeAnswerDate RecordedPurpose and direction in life Zidjney8106/21/2020ex and Gender InformationValueDate RecordedSex Assigned at BirthNot on fileLegal GlkQwdo1512/14/2014 12:01 PM EDTGender IdentityNot on file Sexual OrientationNot on file Last Filed Vital Signs Vital SignReadingTime TakenCommentsBlood Kagknewv455/8011 3:47 PM EST Qxvcz129103/16/2025 3:47 PM MURYtvblealpve43.7 ??C (98.1 ??F)03/16/2025 2:53 PM ESTRespiratory Ydos659903/16/2025 3:47 PM ESTOxygen Lzgeyeomxu49%03/16/2025 3:47 PM ESTInhaled Oxygen Concentration--Ldczxj404.8 kg (456 lb)03/16/2025 11:26 AM DXMIcbnss782.9 cm (6')03/16/2025 11:26 AM ESTBody Mass Index61.8403/16/2025 11:26 AM EST Plan of Treatment DateTypeDepartmentCare Team (Latest Contact Info)Pibfozlqowl44/21/2025 2:15 PM ESTOffice Visit [facility] [address] [place] [address] Kwame Shell MD [address] [place] [address] 04/05/2025 9:30 AM ESTOffice Visit [facility] [address] [place] [address] Franci Byrd, SENIOR USER EXPERIENCE ARCHITECT-CUSTOMER SERVICE RECEPTIONIST [address] [place] [address] Health MaintenanceDue DateLast DoneCommentsDepression Unnyuebju49/03/2016Adult BMI Follow Up Plan07/11/2021Influenza Qgyuwtv5501/09/2025dult BMI Screening Tobacco Zofguqoru41DTaP,Tdap and Td Vaccines (8 - Td or Tdap), 01/04/2016, 01/18/2015, Additional history exists Goals GoalPatient Goal TypeAssociated ProblemsRecent ProgressPatient-Stated?Author Autogenerated Goal Care PlanAutogenerated ProblemNoGriffin, Angie [employer] Not on file Procedures Procedure NamePriorityDate/TimeAssociated DiagnosisCommentsPR AN ELECTIVE ENDOTRACHEAL VOXAQDYtwpmnv82/06/2025 12:59 PM EST ND EXCIS KDHKWRCDMRUA29/06/2025 12:46 PM EST Spermatocele Case Notes JADE REQ 90W, EPIC 109W DNM Special Needs DNM JRZGWRGCQXHmoypfc47/23/2025 12:24 PM EDT Spermatocele URINE AHXIVUPBkgncwe27/23/2025 12:24 PM EDT Spermatocele SURGICAL FRTQVFKSXQmpoecv52/25/2025 9:40 AM EDT ND AN ELECTIVE ENDOTRACHEAL GDNQTAXpoqrns96/25/2025 9:15 AM EDT ND REMV PILONIDAL LESION QGBNGA7801/02/2025 9:12 AM EDT pilonidal cyst POCT NURSING URINE MACROSCOPIC SLWjwncqm33/22/2025 1:23 AM EDT ER EXTRA KPNBNDEJH63/22/2025 12:50 AM EDT US SCROTUM WITH UOJKZLNWST19/22/2025 12:20 AM EDT from Last 3 Months Results * ND AN ELECTIVE ENDOTRACHEAL AIRWAY (03/16/2025 12:59 PM EST) Malina Jiménez APRN-CRNA - 03/16/2025 12:59 PM EST BETINA Márquez 03/16/2025 1:11 PM Airway Patient location during procedure: OR Urgency: Elective Date/Time: 03/16/2025 12:59 PM Airway not difficult IV In Situ: Peripheral General Information and Staff Service Provider: Jose Manuel Rodriguez MD CONTENT CURATOR: BETINA Márquez Placed by: ??BETINA Márquez Patient [...] ProviderResult TypeResult StatusJobel Rodriguez MDANESTHESIA ORDERABLESFinal Result * Urinalysis (03/02/2025 12:24 PM EDT)ComponentValueRef RangeTest MethodAnalysis TimePerformed AtPathologist DbxkiymeySVAJOBjmwzePnywfi70/23/2025 3:54 PM EDT [facility] DPIYMYFYSMSWTOBUTORCeihjEjyhn51/23/2025 3:54 PM EDT [facility] LABORATORYSPECIFIC GRAVITY1.0271.003 - 1.035 03/02/2025 3:54 PM [facility] LABORATORYNITRITENegative Lohbhxsn48/23/2025 3:54 PM [facility] LABORATORYPH,URINE6.0 5.0 - 8.510 3:54 PM [facility] LABORATORYLEUKOCYTE XKMTNOBGFhqywyhxSzmdbcbl92/23/2025 3:54 PM [facility] KTUSWHBNCYSRRQNCUCrorpkqkSgxxpoqt38/23/2025 3:54 PM [facility] LABORATORYKETONES (URINE)DrkmngflSozwzevc23/23/2025 3:54 PM [facility] LABORATORYUROBILINOGEN<1.1 eu/dL<1.1 eu/dL03/02/2025 3:54 PM [facility] LABORATORYBILIRUBIN (URINE)NegativeNegative 03/02/2025 3:54 PM [facility] LABORATORYBLOOD/HGBNegative Bintennq54/23/2025 3:54 PM [facility] LABORATORYGLUCOSE (URINE)QictitczNahixyuh91/23/2025 3:54 PM [facility] LABORATORYSpecimen (Source)Anatomical Location / LateralityCollection Method / VolumeCollection TimeReceived TimeUrineUrine / UnknownCollection / Unknown 03/02/2025 12:24 PM EDT1 12:24 PM EDT Narrative Authorizing ProviderResult TypeResult StatusDavirenata MERCHANT ORDERABLESFinal ResultPerforming OrganizationAddressCity/State/ZIP CodePhone Number [facility] [address] [place] [address], * Urine Culture (03/02/2025 12:24 PM EDT)ComponentValueRef RangeTest Method Analysis TimePerformed AtPathologist SignatureCULTURE EABSMCD60-73,000 ORGANISMS/mL NORMAL UROGENITAL FLORA03/03/2025 10:17 AM [facility] LABORATORYSpecimen (Source)Anatomical Location / LateralityCollection Method / VolumeCollection TimeReceived TimeUrineUrine specimen collection, clean catch / UnknownCollection / Jswqtsp4903/02/2025 12:24 PM EDT1 12:24 PM EDT Narrative Authorizing ProviderResult TypeResult StatusDavid E Fumo MDMICROBIOLOGY - GENERAL ORDERABLESFinal ResultPerforming OrganizationAddressCity/State/ZIP Code Phone Number [facility] [address] [place] [id number], * Surgical Pathology (01/02/2025 9:40 AM EDT)ComponentValueRef RangeTest Method Analysis TimePerformed AtPathologist SignatureCase ReportSurgical Pathology Report ? Case: [id number] ? Authorizing Provider: ??Belen Snyder MD ? Collected: ? 01/02/2025 0940 ? Ordering Location: ? [facility] ? Received: ?01/02/2025 1147 ? [facility] - Surgery ? Pathologist: ? Delon Arvizu MD ? Specimen: ?Pilonidal Cyst ? 01/06/2025 5:17 PM [facility]Final DiagnosisPilonidal cyst; excision: Benign skin with dermal/subdermal chronic fibroinflammatory reaction around hair shaft structures, consistent with the clinical description of a pilonidal cyst; no neoplasm. 01/06/2025 5:17 PM [facility] at 17[address] EDTGross DescriptionReceived in formalin [...] indentation filled with friable vegetative material. Two marketing development representative cross-sections are submitted in a single cassette. (1, ss, [id number],m2) DM.01/06/2025 5:17 PM [facility] LABORATORYEmbedded Vogpqg4401/06/2025 5:17 PM [facility] Specimen (Source)Anatomical Location / LateralityCollection Method / Volume Collection TimeReceived TimeTissuePilonidal cyst / Nypkqrd2901/02/2025 9:40 AM EDT 01/02/2025 11:47 AM EDTComment:Pre-op diagnosis: pilonidal cyst Narrative Authorizing ProviderResult TypeResult StatusMeneleni Snyder MD PATHOLOGY/CYTOLOGY ORDERABLESFinal ResultPerforming OrganizationAddress City/State/ZIP CodePhone Number [facility] [address] [place] [place] [address], [facility] [address] [place] [address], * ND AN ELECTIVE ENDOTRACHEAL AIRWAY (01/02/2025 9:15 AM EDT) Yina Estela HERLINDA BarlowCONTENT CURATOR - 01/02/2025 9:15 AM EDT Romeo Sherwood BETINA Palmer 01/02/2025 9:43 AM Airway Patient location during procedure: OR Urgency: Elective Date/Time: 01/02/2025 9:15 AM Airway not difficult IV In Situ: Peripheral General Information and Staff Service Provider: BETINA Briseno Placed by: ??Romeo Presley BETINA Palmer Patient Identified, IV Checked, Risks and Benefits [...] ??Easy intubation with position. Authorizing ProviderResult TypeResult StatusVern D Castelan DOANESTHESIA ORDERABLESFinal Result * (ABNORMAL) POCT Nursing Urine Macroscopic UA (12/30/2024 1:23 AM EDT)Component ValueRef RangeTest MethodAnalysis TimePerformed AtPathologist SignaturePOC Urine Specific Sabael>=1.030(A)1.010, 1.015, 1.020, 1.6065912/30/2024 1:20 AM [facility] Urine Leukocyte EsteraseNegativeNegative 12/30/2024 1:20 AM [facility] Urine NitriteNegative Ltoblzpg65/22/2025 1:20 AM [facility] Urine pH5.55.0, 6.0, 6.5, 7.0, 7.5, 8.0, 8.5, 5.508 1:20 AM [facility] Urine AuprivqLkpwmhxlEehbains38/22/2025 1:20 AM [facility] Urine GqeakabGzmlyyuoGmniwccz20/22/2025 1:[address] [facility] Urine ZsvmmkeLanilrkwUkrgjbuj00/22/2025 1:20 AM [facility] Urine Urobilinogen0.2 E.U./dL12/30/2024 1:20 AM [facility] Urine WyrxjbntkMkqvqfzrRcezkmky55/22/2025 1:20 AM [facility] Urine Blood/HGBNegativeNegative 12/30/2024 1:20 AM [facility] LABORATORYSpecimen (Source)Anatomical Location / LateralityCollection Method / VolumeCollection TimeReceived Time Urine12/30/2024 1:23 AM EDT12/30/2024 1:20 AM EDT Narrative Authorizing ProviderResult TypeResult StatusJessica Taty [facility] DOPOINT OF CARE TEST ORDERABLESFinal ResultPerforming OrganizationAddressCity/State/ZIP CodePhone Number [facility] [address] [place] [address], * Extra Urine (12/30/2024 12:50 AM EDT)ComponentValueRef RangeTest Method Analysis TimePerformed AtPathologist SignatureExtra TubeAuto Resulted 12/30/2024 2:02 AM [facility] LABORATORYSpecimen (Source) Anatomical Location / LateralityCollection Method / VolumeCollection Time Received TimeUrineUrine specimen collection, clean catch / Lwzcjrb7312/30/2024 12:50 AM EDT12/30/2024 1:48 AM EDT Narrative Authorizing ProviderResult TypeResult StatusJohnathdonald Martínez MDURINE ORDERABLES Final ResultPerforming OrganizationAddressCity/State/ZIP CodePhone Number [facility] [address] [place] [address], [place] [phone] * Ultrasound scrotum for TORSION with duplex [...] 12/30/2024 12:32 AM Authorizing ProviderResult TypeResult StatusJohnathon Tanya [facility] ORDERABLESFinal Result from Last 3 Months Additional Health Concerns Active ProblemsNoted DateDiagnosed DateAutogenerated Dgysuzz9403/16/2025 Insurance * Guarantor: Vidal Barrientos TypeRelation to PatientDate of PhoneBilling AddressPersonal/VhoqjzLxemqu07/17/1986 [facility] [place] [address] Advance Directives * Full Code (Latest Code Status on File) Date ActivatedDate InactivatedComments07/11/2024 8:34 PM07/15/2024 7:44 PM * Full Code Date ActivatedDate HwcabkdiazyCnyvlczo20/13/2022 8:51 AM02/20/2022 1:58 PM Care Teams Team MemberRelationshipSpecialtyStart DateEnd Date Leatha Diaz APRN-NP [facility] [place] [address] PCP - GeneralNurse Practitioner01/21/24
--- OUTSIDE RECORDS SUMMARY | 2025-03-18 08:06 | XMS_ITS | Encounter Summary ---
Author Organization [facility] tem Address [facility] [address] [place] [address] Care Team Providers Care Nursing Consultant Name Role Phone Leatha Diaz APRN-CHECO Primary Care Provid er Encounter Details DateTypeDepartmentCare Team (Latest Contact Info)Ippwkdfituh38/06/2025Telephone [facility] - Surgery [address] [place] [address] Kwame Shell MD [address] [place] [address] Social History Tobacco UseTypesPacks/DayYears UsedDateSmoking Tobacco: NeverSmokeless Tobacco: NeverAlcohol UseStandard Drinks/WeekCommentsNot Currently0 (1 standard drink = 0.6 oz pure alcohol)none since julyHC UtilitiesAnswerDate RecordedIn the past 12 months has the [employer], [employer], oil, or water [employer] threatened to shut off services in your [...] in as a part of a household?No5ChildcareAnswerDate KizgiboiRnxlsnrixTgysbrm61/12/2019 EmploymentAnswerDate OemqltvlSntnzxymoxZibvfmz36/12/2019Hunger ScreeningAnswer Date RecordedWithin the past 12 months we worried whether our food would run out before we got money to buy more.Never True03/02/2025Within the past 12 months the food we bought just didn't last and we didn't have money to get more.Never True03/02/2025Purpose - LifeAnswerDate RecordedPurpose and direction in life Gqyjiin4506/21/2020ex and Gender InformationValueDate RecordedSex Assigned at BirthNot on fileLegal JffAxpu3612/14/2014 12:01 PM EDTGender IdentityNot on file Sexual OrientationNot on filedocumented as of this encounter Miscellaneous Notes * Telephone Encounter - Kwame Shell MD - 03/16/2025 3:34 PM EST Follow up with me in 2 weeks for wound check documented in this encounter Plan of Treatment DateTypeDepartmentCare Team (Latest Contact Info)Tqfkrkbzmux58/21/2025 2:15 PM ESTOffice Visit [facility] [address] [place] [address] Kwame Shell MD [address] [place] [address] 04/05/2025 9:30 AM ESTOffice Visit [facility] [address] [place] [address] Franci Byrd, SKEIN WASHER-BROADCAST METEOROLOGIST [address] [facility] [place], [place] [phone] documented as of this encounter Goals GoalPatient Goal TypeAssociated ProblemsRecent ProgressPatient-Stated?Author Autogenerated Goal Care PlanAutogenerated ProblemNoGriffin, Naomidocumented as of this encounter Visit Diagnoses Not on filedocumented in this encounter Additional Health Concerns Active ProblemsNoted DateDiagnosed DateAutogenerated Adbizid5903/16/2025documented as of this encounter Care Teams Team MemberRelationshipSpecialtyStart DateEnd Date Leatha Diaz APRN-CHECO [address] [place] [address] PCP - GeneralNurse Practitioner01/21/24documented as of this encounter
--- OUTSIDE RECORDS SUMMARY | 2025-03-18 08:06 | XMS_ITS | Patient Health Record ---
Author Organization [facility] Serv es Address [address] [place] [address] Care Team Providers Care Machine Quilt Stuffer Name Role Phone Caleb Corbin Primary Care Provider [phone] SHERRI ORDOÑEZ Unavailable Allergies Allergen (clinical drug ingredient) Drug/Non Drug Allergy documented on EMR Reaction Allergy Type Onset Date Status PenicillinanaphylaxisDrug Fiagerm1510/27/2007ctive Reason For Referral Reason 09/12 *2nd attempt attempt, lvmsg requesting return call referral from PCP for med mgnt of anxiety, bipolar disorder Diagnosis 1 Encounter for screen ing examination for mental health and behavioral disorders (Z13.30) Referral Organization [facility] Referring Provider First Name SHERRI Referring Provider Last Name TIAGO Referring Provider Speciality [facility] icine Referred Organization [facility] [place] Referred Provider Caleb Corbin Referred Address [address] [place], [place], Referred Provider Specialty Medicatio ns Referral Priority [...] some wayNearly every day(Consider Suicide Assessment Risk)Total Iegza28MrjfuqgbhoctoBgfeac DepressionDrug/Alcohol:Social InfoQuestionAnswerNotesAUDIT-C (Standard)Did you have a drink [...] in the past year?Less than monthly (1 point)Hoklsj9OetrqimqdctnwySfsotmiuBdznueo Use:Social InfoQuestion AnswerNotesTobacco Control (Standard)Tobacco use:Nonsmoker Problems Problem Type SNOMED Code ICD Code Onset Dates Problem Status W/U Status Risk Notes Problem Mixed bipolar affect ifrah disorder, mild (548899214) Bipolar disorder, current episode mixed, mild (F31.61) Activeconfirmed Vital Signs Heart Rate 93 /min 10/12/2024 Izimenfl85 %10/12/2024lood pressure exfcrxcwo63 mm Hg10/12/20247974Ltddhj78 in 10/12/2024lood pressure ydvktvdt268 mm Hg10/12/20245669Bqjbfu506.4 lbs10/12/2024MI 61.49 kg/m210/12/2024 Encounters Encounter Location Date Provider Diagnosis [place] [address] [place] [address] 10/12/2024 Kip Shaquille Bipolar disorder, cu rrent episode mixed, mild [...] Coverage End Date ANTHEM Primary [address] [place] [address] [id number] JAVIER GAVEMATTHEWelf - patient is the tyljkqv38 2024 Medical (General) History Medical History History ICD Code Anxiety DepressionBipolar DisorderSleep apneaSurgical History Surgery Date(Month/Year) appendectormy 03/2022 Hospitalization History Reason Date(Month/Year) Admitted to [facility] for depressi on 08/02
--- OUTSIDE RECORDS SUMMARY | 2025-03-18 08:06 | XMS_ITS | Encounter Summary ---
Author Organization [employer] [facility] tem Address [id number] [address] [place] [address] Care Team Providers Care Residential Support Specialist Name Role Phone Leatha Diaz Primary Care Provid er Encounter Details DateTypeDepartmentCare Team (Latest Contact Info)Gokssaogwqi25/06/2025Travel Social History Tobacco UseTypesPacks/DayYears UsedDateSmoking Tobacco: NeverSmokeless [...] in as a part of a household?No07/11/2024hildcareAnswerDate OfifrikzPyeikxzuwByabbhb44/04/2019 EmploymentAnswerDate VhjaemnuTlzznxguzmMmoudml50/12/2019Hunger ScreeningAnswer Date RecordedWithin the past 12 months we worried whether our food would run out before we got money to buy more.Never True03/02/2025Within the past 12 months the food we bought just didn't last and we didn't have money to get more.Never True03/02/2025Purpose - LifeAnswerDate RecordedPurpose and direction in life Rkkhuun1706/21/2020ex and Gender InformationValueDate RecordedSex Assigned at BirthNot on fileLegal GiiDwuw3312/14/2014 12:01 PM EDTGender IdentityNot on file Sexual OrientationNot on filedocumented as of this encounter Plan of Treatment DateTypeDepartmentCare Team (Latest Contact Info)Dfmnkecwydo38/21/2025 2:15 PM ESTOffice Visit [facility] [address] [place] [phone] Kwame Shell MD [address] [place] [address] 04/05/2025 9:30 AM ESTOffice Visit [facility] [address] [place] [phone] Franci Byrd APRN-TIP MENDER [address] [place], [place] [phone] documented as of this encounter Goals GoalPatient Goal TypeAssociated ProblemsRecent ProgressPatient-Stated?Author Autogenerated Goal Care PlanAutogenerated ProblemNoGriffin, Naomidocumented as of this encounter Visit Diagnoses Not on filedocumented in this encounter Additional Health Concerns Active ProblemsNoted DateDiagnosed DateAutogenerated Rcsztac7503/16/2025documented as of this encounter Care Teams Team MemberRelationshipSpecialtyStart DateEnd Date Leatha Diaz APRN-[facility] [address] [facility] [place] [address] PCP - GeneralNurse Practitioner01/21/24documented as of this encounter
--- OUTSIDE RECORDS SUMMARY | 2025-03-18 08:07 | XMS_ITS | CCD ---
Author Organization [facility] [place] Care Team Providers Care Spanish Literature Professor Name Role Phone NAOMI ROD Unavailable Unavailable [...] Unavailable HOUSE, DR SMILEY Attending Unavailable [facility], DR SANJAY Gavin Consulting Unavailable Jose Francisco Imariana Unavailable DO [...] Provider MD Lewis Mirza Attending Provider REUBEN Diazfer Primary Care Provider MD Kareem Tijerina Attending Provider [phone] Rohrbacher COPPER [employer]ATE PRINTER, [facility] Primary Care Provider Wilver Felton MD Attending Provider [phone] Asaariana, Imad Attending Unavailable Baljit Pisano [facility] Care Unavailable Asaad, Imad Admitting Unavailable Baljit Pisano [facility] Care Unavailable Lewis Mirza Admitting Unavailable Lewis Mirza Attending Unavailable Rohrbacher, [facility] Primary Care Unavailable Kareem Tijerina Admitting Unavailable Kareem Tijerina Attending Unavailable Jose Francisco, Wilver Attending Unavailable Rohrbacher, [facility] Primary Care Unavailable Asaad, Imad Admitting Unavailable Baljit Pisano DO Primary Care Provider Rohrbacher [employer] PLATE PRINTER-CHRONIC CARE NURSE, [facility] Provid er Abbi JAY Primary Care Physician [phone] Nato Lezama Attending Unavailable Nato Lezama Attending Unavailable Rohrbacher [employer]ATE PRINTER-CHRONIC CARE NURSE, [facility] Provid er ROHRBACHER, LEATHA Primary Care Unavailable [...] Unavailable ROHRBACHER, LEATHA Primary Care Unavailable Rohrbacher [employer] PRINTER, Leatha Primary Care Provider Adelaida Jiang CMA Attending Provider Unavaila ble Rohrbacher Leatha ALEXIS Attending Provider Rohrbacher COP[employer] PLATE PRINTER-CHRONIC CARE NURSE, Leatha Primary Care Provid er BELEN LANGSTON Attending Unavailable ROHRBACHER, LEATHA Referring Unavailable ROHRBACHER, LEATHA Primary Care Unavailable KIANBELEN BENNETT M Attending Unavailable ROHRBACHER, LEATHA Referring Unavailable ROHRBACHER, LEATHA Primary Care Unavailable FRANCI BYRD Attending Unavailable ROHRBACHER, LEATHA Referring Unavailable ROHRBACHER, LEATHA Primary Care Unavailable FRANCI BYRD Attending Unavailable ROHRBACHER, LEATHA Referring Unavailable ROHRBACHER, LEATHA Primary Care Unavailable FRANCI BYRD Attending Unavailable ROHRBACHER, LEATHA Referring Unavailable ROHRBACHER, LEATHA Primary Care Unavailable ROHRBACHER, LEATHA Primary Care Unavailable HOTEIT, WISSAM K Admitting Unavailable HOTEIT, WISSAM K Attending Unavailable PHYSICIANS, [facility] Consulting Jacquie RICKY Hernandez Referring Unavailable ROHRBACHER, LEATHA Primary Care Unavailable ROHRBACHER, LEATHA Primary Care Unavailable FRANCI YU Attending Unavailab GAIL Martin Attending Unavailable ROHRBACHER, LEATHA Referring Unavailable ROHRBACHER, LEATHA Primary Care Unavailable GAIL SHELL Referring Unavailable ROHRBACHER, LEATHA Primary Care Unavailable GAIL SHELL Admitting Unavailable GAIL SHELL Attending Unavailable ROHRBACHER, LEATHA Primary Care Unavailable Allergies Allergy ClassificationReported Allergen(s)Allergy TypeDate of OnsetReaction(s) Facility (1 source)penicillAMINEDrug AllergyhivesNoreynolds [facility] EDUS Other (7 sources)Penicillin; Translations: [penicillin]Drug AllergyUrticaria (disorder)[facility] (20 sources)Penicillins; Translations: [Penicillins]Allergy to substance 22-54-5837Uvsgu, [facility]aphylaxisMet[facility] Medications Current Medications MedicationDrug Class(es)DatesSig (Normalized)Sig (Original)acetaminophen 500 mg oral tablet (2 sources)Start: 33-11-7716yxir 2 tablets by mouth every six hours as needed for painacetaminophen (TYLENOL EXTRA STRENGTH) 500 mg tablet Take 2 tablets (1,000 mg total) by mouth every6 (six) hours as needed for pain. 30 tablet 03/16/2025 Activeacetaminophen 325 mg / HYDROcodone bitartrate 5 mg oral tablet (2 sources)Opioid AgonistStart: 03-16-2025 End: 12-15-8552MJXFDrlikbo-acetaminophen (NORCO) 5-325 mg per tablet Indications: Spermatocele Take 1 tablet by mouth every 6 (six) hours as needed for pain for up to 3 days. Max Daily Amount: 4 tablets 12 tablet 03/16/2025 03/19/2025 Activeacetaminophen 325 mg / oxyCODONE hydrochloride 5 mg oral tablet (1 source)Opioid AgonistStart: 01-23-2024 End: 35-94-2411zdyRLPHFO-acetaminophen (PERCOCET) 5-325 mg per tablet Indications: Pilonidal cyst Take 1 tablet bymouth every 4 (four) hours as needed for pain for up to 7 days. Max Daily Amount: 6 tablets 6 tablet 01/23/2024 01/30/2024 ActiveARIPiprazole 5 mg oral tablet (18 sources)Atypical AntipsychoticStart: 52-36-1316nbos 1 tablet by mouth in the morningARIPiprazole (ABILIFY) 5 mg tablet Indications: MDD (major depressive disorder), recurrent severe, without psychosis (CMS-HCC) Take 1 tablet (5 mg total) by mouth in the morning. 90 tablet 1 07/28/2024 Activebismuth subsalicylate 17.5 mg/ml oral suspension (2 sources)BismuthStart: 73-61-1242rleq 15 mL by mouth every six hours as needed bismuth subsalicylate (PEPTO BISMOL) 262 mg/15 mL suspension Take 15 mL by mouth every 6 (six) hours as needed for indigestion. 360 mL 12/26/2022 Active cariprazine (1 source)Atypical AntipsychoticVraylar Activecefdinir 300 mg oral capsule (1 source)Cephalosporin AntibacterialStart: 07-05-2024 End: 18-34-7298ktdy 1 capsule by mouth every twelve hourscefdinir 300 mg Cap 300 mg = 1 cap(s), Oral, q12hr, X 7 day(s), # 14 cap(s), Refills(s) 0, Pharmacy: [id number], 183, cm, 07/05/24 21:52:00 EST, Height/Length Dosing, 195.2, kg, 07/05/24 21:52:00 EST, Weight Dosing Start Date: 07/05/24 Stop Date: 07/12/24 Status: Orderedclindamycin 300 mg oral capsule (1 source)Lincosamide AntibacterialStart: 01-21-2024 End: 57-11-8282cpcd 1 capsule by mouth three times dailyclindamycin (CLEOCIN) 300 mg capsule Take 1 capsule (300 mg total) by mouth 3 (three) times a day for 7 days. 21 capsule 01/21/2024 01/28/2024 Activefamotidine 20 mg oral tablet (2 sources)Histamine-2 Receptor AntagonistStart: 53-95-5667ldlt 1 tablet by mouth in the morning, then take 1 tablet by mouth at bedtimefamotidine (PEPCID) 20 mg tablet Take 1 tablet (20 mg total) by mouth in the morning and 1 tablet (2 0 mg total) before bedtime. 20 tablet 12/26/2022 Activeibuprofen 800 mg oral tablet (20 sources)Nonsteroidal Anti-inflammatory DrugStart: 01-05-2025 End: 77-02-1880hvcb 1 tablet by mouth every eight hours as needed for pain ibuprofen (MOTRIN) 800 mg tablet Take 1 tablet (800 mg total) by mouth every 8 (eight) hours as needed for pain. 30 tablet 01/05/2025 02/13/2025 Discontinued (Patient Stopped On Own)Start: 07-06-2023 End: 49-36-0189fgyu 1 tablet by mouth every six hours as neededIbuprofen 200 mg tablet Discontinued 200 MG PO Every 6 hours as needed July 06, 2023 1:00am October 22, 2023 9:43amStart: 58-73-4681ptly 1 tablet by mouth every eight hours [...] mg oral tablet (2 sources)Nonsteroidal Anti-inflammatory DrugStart: 29-63-3859jmtapgoik (MOBIC) 15 mg tablet Indications: Chronic fatigue , Pain in both hands Take one tablet inthe morning with food 30 tablet 2 07/21/2023 Activenaloxone (NARCAN) 4 mg/actuation spray,non-aerosol nasal spray (1 source)Start: 84-42-3851piwxbpvw (NARCAN) 4 mg/actuation spray,non-aerosol nasal spray Administer 1 spray (4 mg total) intoalternating nostrils as needed for opioid reversal. 01/23/2024 Activenaproxen 500 mg oral tablet (1 source)Nonsteroidal Anti-inflammatory DrugStart: 07-05-2024 End: 11-36-7967jqgt 1 tablet by mouth twice dailynaproxen 500 mg Tab 500 mg = 1 tab(s), Oral, BID, X 10 day(s), # 20 tab(s), Refills(s) 0, Pharmacy:[facility] #[id number], 183, cm, 07/05/24 21:52:00 EST, Height/Length Dosing, 195.2, kg, 07/05/24 21:52:00 EST, Weight Dosing Start Date: 07/05/24 Stop Date: 07/15/24 Status: Orderedondansetron 4 mg disintegrating oral tablet (2 sources)Serotonin-3 Receptor AntagonistStart: 65-47-2813lksm 1 tablet by mouth every eight hours as needed for nauseaondansetron ODT (ZOFRAN ODT) 4 mg disintegrating tablet Dissolve 1 tablet (4 mg total) on tongue every 8 (eight) hours as needed for nausea for up to 10 doses. 10 tablet 12/26/2022 Active sulfamethoxazole 800 mg / trimethoprim 160 mg oral tablet (6 sources)Dihydrofolate Reductase Inhibitor Antibacterial, Sulfonamide AntimicrobialStart: 03-17-2025 End: 04-19-3085teuw 1 tablet by mouth once in the morningsulfamethoxazole- trimethoprim (BACTRIM DS) 800-160 mg per tablet Take 1 tablet by mouth in the morning and 1 tablet before bedtime. Do all this for 3 days. 6 tablet 03/17/2025 03/20/2025 ActiveStart: 04-18-2024 End: 60-24-7308iyol 1 tablet by mouth twice dailySulfamethoxazole-Trimethoprim (Bactrim Ds) 800-160 mg tablet Discontinued 1 TAB PO Twice daily 14 April 18, 2024 1:00am June 16, 2024 11:01am Pilonidal cyst Pilonidal cyst without abscesstiZANidine 2 mg oral tablet (2 sources)Central alpha-2 Adrenergic AgonistStart: 57-22-1731oiqr 1 tablet by mouth every six hours as neededtiZANidine (ZANAFLEX) 2 mg tablet Take 1 tablet (2 mg total) by mouth every 6 (six) hours as neededfor muscle spasms. 12 tablet 06/30/2023 ActivetraZODone hydrochloride 50 mg oral tablet (1 source)Serotonin Reuptake InhibitorStart: 07-28-2024 End: 35-01-2428rsqe 1 tablet by mouth once daily as needed for sleeptraZODone (DESYREL) 50 mg tablet Indications: MDD (major depressive disorder), recurrent severe, without psychosis ([facility]) Take 1 tablet (50 mg total) by mouth nightly as needed for sleep. 90 tablet 1 07/28/2024 11/29/2024 Discontinued (Therapy completed) Completed/Discontinued Medications MedicationDrug Class(es)DatesSig (Normalized)Sig (Original)azithromycin 250 mg oral tablet (13 sources)Macrolide AntimicrobialStart: 11-09-2023 End: 95-90-3209Iujyirtpthxn 250 mg tablet Discontinued 250 MG PO daily 6 5 0 November 09, 2023 12:00am December 09, 2023 11:26am Bronchitis Bronchitis, not specified as acute or chronic Take 2 tablets today and then 1 for the next 4 daysbenzonatate 200 mg oral capsule (16 sources)Non-narcotic AntitussiveStart: 08-27-2023 End: 57-21-0685fpwd 1 capsule by mouth three times daily as needed for cough Benzonatate 200 mg capsule Discontinued 200 MG PO Three times daily as needed for cough 30 10 0 August 27, 2023 12:00am September 10, 2023 10:35am Bronchitis Bronchitis, not specified as acute or chronicbusPIRone hydrochloride 10 mg oral tablet (7 sources)Start: 09-22-2024 End: 95-05-8737scaw 1 tablet by mouth twice dailyBuspirone 10 mg tablet Discontinued 10 MG PO Twice daily 180 90 0 September 22, 2024 9:21am October 13, 2024 8:33am Anxiety Anxiety disorder, unspecifiedStart: 08-31-2024 End: 61-89-4613vszr 1 tablet by mouth twice dailyBuspirone 5 mg tablet Discontinued 5 MG PO Twice daily 60 30 0 August 31, 2024 12:00am September 22, 2024 9:21am Anxiety Anxiety disorder, unspecifiedCholecalciferol (20 sources)Vitamin DStart: 10-22-2023 End: 98-01-9206jfzo 1 capsule by mouth once dailycholecalciferol (vitamin D3) Discontinued 1 CAP PO Daily October 22, 2023 12:00am March 22, 2024 10:58am Start: 10-22-2023 End: 80-94-7616eegx 1 capsule by mouth once dailycholecalciferol (vitamin D3) Discontinued 1 CAP PO Daily October 21, 2023 11:00pm March 22, 2024 9:58am Start: 95-27-9631zmyv 1 capsule by mouth once dailycholecalciferol (vitamin D3) Active 1 CAP PO Daily October 22, 2023 12:00amStart: 07-09-2023 End: 96-19-1760cpuk 1 capsule by mouth every weekCholecalciferol (Vitamin D3) 1,250 mcg (50,000 unit) capsule Discontinued 1250 MCG PO every week 5 30 1 July 09, 2023 1:00am October 22, 2023 9:43am take above dose for 8 weeks and then start 2,000 units daily of OTC vitamin s7rrtgqqtelfu hydrochloride 10 mg oral capsule (6 sources)AnticholinergicStart: 02-25-2024 End: 53-31-0645hnav 1 capsule by mouth three times daily as needed for pain Dicyclomine 10 mg capsule Discontinued 10 MG PO Three times daily as needed for abdominal pain 30 10 0 February 25, 2024 12:00am March 22, 2024 10:58am Abdominal pain Unspecified abdominal paindoxycycline hyclate 150 mg delayed release oral tablet (20 sources)Tetracycline-class DrugStart: 03-16-2025 End: 77-06-8136pvtv 1 tablet by mouth in the morning, then take 1 tablet by mouth at bedtimedoxycycline (DORYX) 150 MG EC tablet Take 1 tablet (150 mg total) by mouth in the morning and 1 tablet (150 mg total) before bedtime. Do all this for 5 days. 10 tablet 03/16/2025 03/17/2025 DiscontinuedStart: 11-27-2024 End: 62-62-3189tgky 1 capsule by mouth in the morning, then take 1 capsule by mouth at bedtimedoxycycline (VIBRAMYCIN) 100 mg capsule Take 1 capsule (100 mg total) by mouth in the morning and 1capsule (100 mg total) before bedtime. 11/27/2024 12/15/2024 Discontinued (Therapy completed)Start: 08-27-2023 End: 10-77-1982fsec 1 tablet by mouth twice dailyDoxycycline Monohydrate 100 mg tablet Discontinued 100 MG PO Twice daily 20 10 0 August 27, 2023 12:00am September 10, 2023 10:35am Maxillary sinusitis Bronchitis Chronic maxillary sinusitis Bronchitis, not specified as acute or chronichydrOXYzine hydrochloride 50 mg oral tablet (5 sources)AntihistamineStart: 08-31-2024 End: 26-16-7147xgbo 1 tablet by mouth three times daily as neededHydroxyzine Hcl 50 mg tablet Discontinued 50 MG PO Three times daily as needed August 31, 2024 12:00am October 13, 2024 8:33amStart: 08-29-2024 End: 62-80-1517wjbm 1 tablet by mouth three times daily as neededHydroxyzine Hcl 50 mg tablet Discontinued 50 MG PO Three times daily as needed August 31, 2024 12:00am October 13, 2024 8:33ampantoprazole 40 mg delayed release oral tablet (6 sources)Proton Pump InhibitorStart: 03-22-2024 End: 07-34-8180yoci 1 tablet by mouth once dailyPantoprazole 40 mg tablet,delayed release (DR/EC) Discontinued 40 MG PO Daily 56 56 0 March 22, 2024 1:00am October 13, 2024 8:33ampredniSONE 20 mg oral tablet (5 sources)Start: 06-16-2024 End: 65-13-8848oaah 3 tablets by mouth once daily, then [...] x 3 days.Semaglutide (8 sources)Start: 02-09-2024 End: 72-92-4918Iyfjxqreyxh (Ozempic) 0.25 mg or 0.5 mg (2 mg/3 mL) pen injector Discontinued 0.25 MG SUBCUT every week February 08, 2024 11:00pm February 25, 2024 2:36pm sampleStart: 02-09-2024 End: 66-30-3377Qceqyksbmuj (Ozempic) 0.25 mg or 0.5 mg (2 mg/3 mL) pen injector Discontinued 0.25 MG SUBCUT every week February 09, 2024 12:00am February 25, 2024 3:36pm sampleStart: 20-53-5794Grsmykgkgjs (Ozempic) 0.25 mg or 0.5 mg (2 mg/3 mL) pen injector Active 0.25 MG SUBCUT every week February 09, 2024 12:00am sampleSemaglutide (Weight Loss) (20 sources)Start: 09-10-2023 End: 72-62-5113Xvxsihnrjmz (Weight Loss) (Wegovy) 0.25 mg/0.5 mL pen injector Discontinued 0.25 MG SUBCUT every week September 10, 2023 9:37am September 10, 2023 9:55am administer weeks 1 through 4 of therapyStart: 09-10-2023 End: 13-64-9619Ctdfjsmrypc (Weight Loss) (Wegovy) 0.25 mg/0.5 mL pen injector Discontinued 0.25 MG SUBCUT every week September 10, 2023 10:37am September 10, 2023 10:55am administer weeks 1 through 4 of therapyStart: 08-13-2023 End: 89-00-4626Tjkyyuboudb (Weight Loss) (Wegovy) 0.25 mg/0.5 mL pen injector Discontinued 0.25 MG SUBCUT every week 2 August 13, 2023 12:00am September 10, 2023 10:37am administer weeks 1 through 4 of therapyStart: 08-13-2023 End: 06-12-0124Schqurfspge (Weight Loss) (Wegovy) 0.25 mg/0.5 mL pen injector Discontinued 0.25 MG SUBCUT every week 2 August 12, 2023 11:00pm September 10, 2023 9:37am administer weeks 1 through 4 of therapyStart: 08-13-2023 End: 62-85-8339Dddfsiumrwq (Weight Loss) (Wegovy) 0.25 mg/0.5 mL pen injector Discontinued 0.25 MG SUBCUT every week 2 August 13, 2023 12:00am September 10, 2023 10:37am administer weeks 1 through 4 of therapyStart: 24-31-1350Ycbjunpgmcz (Weight Loss) (Wegovy) 0.25 mg/0.5 mL pen injector Active 0.25 MG SUBCUT every week 2 August 13, 2023 12:00am administer weeks 1 through 4 of therapy sertraline 100 mg oral tablet (20 sources)Serotonin Reuptake InhibitorStart: 08-31-2024 End: 95-95-7685hasp 1 tablet by mouth once dailySertraline 100 mg tablet Discontinued 100 MG PO Daily August 31, 2024 12:00am October 13, 2024 8:33am Start: 08-29-2024 End: 28-16-4195buau 1.5 tablets by mouth in the morningsertraline (ZOLOFT) 100 mg tablet Indications: MDD (major depressive disorder), recurrent severe, wi thout psychosis (CMS-HCC) , Generalized anxiety disorder with panic attacks Take 1.5 tablets (150 mg total) by mouth in the morning. 135 tablet 1 08/29/2024 11/29/2024 Discontinued (Therapy completed)Start: 11-09-2023 End: 96-85-4888oumk 1 tablet by mouth once dailySertraline 50 mg tablet Discontinued 50 MG PO Daily 90 90 1 November 09, 2023 8:42am February 25, 2024 3:36pm Depression Depression, unspecifiedStart: 10-12-2023 End: 59-70-0745nsuq 1 tablet by mouth once dailySertraline 25 mg tablet Discontinued 25 MG PO Daily 30 30 0 October 12, 2023 12:00am November 09, 2023 8:43am Depression Depression, unspecifiedSod Picosulf-Mag Ox-Citric Ac (6 sources)Start: 02-29-2024 End: 33-07-1212Lrd Picosulf-Mag Ox-Citric Ac (Clenpiq) 10 mg-3.5 gram- 12 gram/175 mL solution Discontinued 175 MLPO .COMPLEX 350 1 0 February 29, 2024 12:00am March 22, 2024 10:58am Follow instructions given by officeStart: 02-29-2024 End: 00-52-3396Lvv Picosulf-Mag Ox-Citric Ac (Clenpiq) 10 mg-3.5 gram- 12 gram/175 mL solution Discontinued 175 MLPO .COMPLEX 350 1 February 29, 2024 12:00am March 22, 2024 10:58am Follow instructions given by officeStart: 02-29-2024 End: 33-86-4534Yit Picosulf-Mag Ox-Citric Ac (Clenpiq) 10 mg-3.5 gram- 12 gram/175 mL solution Discontinued 175 MLPO .COMPLEX 350 1 February 28, 2024 11:00pm March 22, 2024 9:58am Follow instructions given by office Problems Active Problems Problem ClassificationProblemDateDocumented DateEpisodic/ChronicAbdominal pain (20 sources)Abdominal tenderness of left lower quadrant; Translations: [Left lower quadrant abdominal tenderness]Onset: 947566-34-4406NlgwqxbbEyxjrsq disorders (20 sources)Anxiety; Translations: [Anxiety disorder, unspecified]Onset: 277869-15-9614FpjrhllFucbxsr dysrhythmias (20 sources)Tachycardia; Translations: [Tachycardia, unspecified]Onset: 748504-99-3266OnxdbwdfXlmjojs obstructive pulmonary disease and bronchiectasis (20 sources)Bronchitis; Translations: [Bronchitis, not specified as acute or chronic]43-08-1541QnywpgslTkewywnf mellitus without complication (20 sources)Hyperglycemia; Translations: [Hyperglycemia, unspecified]Onset: 249898-47-0000WfuzwvhrUpbwgqzuv of lipid metabolism (20 sources)Mixed hyperlipidemia; Translations: [Mixed hyperlipidemia]09-10-2023 ChronicGastrointestinal hemorrhage (20 sources)Hematochezia; Translations: [Melena]Onset: EpisodicHeadache; including migraine (7 sources)Morning headache; Translations: [Morning headache]19-84-6719Rybafzwr Hepatitis (7 sources)Hepatitis A test positive; Translations: [Hepatitis A without hepatic coma]EpisodicImmunizations and screening for infectious disease (20 sources)Contact with and (suspected) exposure to other viral communicable diseases; Translations: [Anti-nuclear factor positive]EpisodicMalaise and fatigue (1 source)Fatigue; Translations: [Chronic fatigue, unspecified]29-88-3424Wnncjwb Malaise and fatigue (20 sources)Other fatigue; Translations: [Fatigue]Onset: 48-93-7200VgznacvsAgbg disorders (20 sources)Bipolar disorder; Translations: [Bipolar disorder, unspecified] Onset: 684805-04-9843AoyenbtKfouheitydu deficiencies (20 sources)Vitamin D deficiency; Translations: [Vitamin D deficiency, unspecified]11-02-2914NnumzpuGzdcb connective tissue disease (4 sources)Pain in right lower leg; Translations: [PAIN IN RIGHT LOWER LEG] Onset: 86-95-2974JlgbxfsuHubty connective tissue disease (2 sources)Pain in right foot; Translations: [Pain in right foot]03-01-2025 EpisodicOther gastrointestinal disorders (10 sources)Altered bowel function; Translations: [Change in bowel habit] 70-92-6100GfobpfmfKozgm gastrointestinal disorders (10 sources)Abdominal bloating; Translations: [Abdominal distension (gaseous)] 98-68-3334PldtzafuZoats gastrointestinal disorders (9 sources)Abdominal distension (gaseous); Translations: [Flatulence, eructation, and gas pain]48-69-4564FvfcmihzWzfpg gastrointestinal disorders (9 sources)Change in bowel habit; Translations: [Other symptoms involving digestive system]94-79-0114HydxzxnmJikkg liver diseases (20 sources)Steatosis of liver; Translations: [Fatty (change of) liver, not elsewhere classified]35-46-9926EwuvlgcKmlhv liver diseases (20 sources)Fatty (change of) liver, not elsewhere classified; Translations: [Other chronic nonalcoholic liver disease]Onset: 49-15-6874LwcbxdwCmoax lower respiratory disease (2 sources)Rib pain; Translations: [Pleurodynia]11-30-5235WvxrlsihMtaoq lower respiratory disease (1 source)Pleurodynia; Translations: [Chest pain, unspecified]72-84-0946Zzaevnfe Other male genital disorders (12 sources)Cyst of epididymis; Translations: [Cyst of epididymis]Onset: 351457-75-2095JxoixqecFdwxk male genital disorders (1 source)Disorder of male genital organ; Translations: [Hydrocele, unspecified] 81-92-9021UgnaytpsHgxog male genital disorders (2 sources)Cyst of epididymis; Translations: [Cyst of epididymis]Onset: 61-71-5506LnccumcrDnlmt male genital disorders (2 sources)Hydrocele, unspecified; Translations: [Hydrocele, unspecified]Onset: 26-63-3887FrzglekhOmvym male genital disorders (5 sources)Spermatocele; Translations: [Spermatocele of epididymis, unspecified] Onset: 454773-14-7741KsxsmcogKhbji male genital disorders (1 source)Spermatocele of epididymis, unspecified; Translations: [Spermatocele of epididymis, unspecified]Onset: 21-87-0747ObvgxvbhAhyon nervous system disorders (1 source)Bilateral carpal tunnel syndrome; Translations: [Carpal tunnel syndrome, bilateral upper limbs]12-47-3909TjuecixMhdnw non-traumatic joint disorders (4 sources)Other specified arthritis, unspecified site; Translations: [OTHER SPECIFIED ARTHRITIS UNS SITE]Onset: 38-90-1793SxxgkcyRcfgh non-traumatic joint disorders (19 sources)Multiple joint pain; Translations: [Pain in unspecified joint] 05-91-6657EwfohiicPauib non-traumatic joint disorders (4 sources)Pain in unspecified joint; Translations: [Pain in joint, multiple sites]27-27-5048MuskaqnlWjtxl non-traumatic joint disorders (20 sources)Pain in left knee; Translations: [Left knee pain]61-13-0905Yptcvjcm Other non-traumatic joint disorders (6 sources)Pain in right knee; Translations: [Pain in joint, lower leg] 18-51-8354MasbxepmIomob non-traumatic joint disorders (2 sources)Ankle pain; Translations: [Pain in right ankle and joints of right foot]39-69-6434FngkzptzSwnbj nutritional; endocrine; and metabolic disorders (20 sources)Morbid obesity; Translations: [Morbid (severe) obesity due to excess calories]Onset: 929650-75-6011MtwzgfsOikyb nutritional; endocrine; and metabolic disorders (5 sources)Morbid (severe) obesity due to excess calories; Translations: [Morbid obesity]34-15-3104ZfjhnbbRvdlu nutritional; endocrine; and metabolic disorders (15 sources)Body mass index 40+ - severely obese; Translations: [Body mass index (BMI) 50.0-59.9, adult]14-16-8386MaymdcuAflkl nutritional; endocrine; and metabolic disorders (15 sources)Body mass index (BMI) 50.0-59.9, adult; Translations: [Body Mass Index 50.0-59.9, adult]49-85-4787UileymcYjqot nutritional; endocrine; and metabolic disorders (1 source)Body mass index (BMI) 60.0-69.9, adult; Translations: [Body mass index (BMI) 60.0-69.9, adult]Onset: 92-36-4301AqrphycXymfc nutritional; endocrine; and metabolic disorders (18 sources)Abnormal weight gain; Translations: [Abnormal weight gain]08-13-2023 EpisodicOther nutritional; endocrine; and metabolic disorders (6 sources)Abnormal weight gain; Translations: [Abnormal weight gain]08-13-2023 EpisodicOther nutritional; endocrine; and metabolic disorders (10 sources)Decrease in appetite; Translations: [Anorexia]63-38-6554Ikhuvksx Other nutritional; endocrine; and metabolic disorders (5 sources)Anorexia; Translations: [Anorexia]80-28-1810ToelawevSoxyf skin disorders (5 sources)Pilonidal disease; Translations: [Other specified disorders of the skin and subcutaneous tissue]70-32-8004CbdyyfozPlxih upper respiratory infections (20 sources)Maxillary sinusitis; Translations: [Chronic maxillary sinusitis] 74-67-5613YitasriYdhqq upper respiratory infections (2 sources)Acute upper respiratory infection, unspecified; Translations: [Acute upper respiratory infection]Onset: 03-96-9532SggijghdMkyfsw media and related conditions (1 source)Otitis media; Translations: [Otitis media, unspecified, right ear] Onset: 80-54-5873TczkrdoaUzpwfqqu codes; unclassified (4 sources)Sleep apnea; Translations: [Sleep apnea, unspecified]03-02-2025 ChronicResidual codes; unclassified (19 sources)Family history of Luis thyroiditis; Translations: [Family history of other endocrine, nutritional and metabolic diseases]07-07-2023 EpisodicResidual codes; unclassified (19 sources)Disturbance in sleep behavior; Translations: [Sleep disorder, unspecified]46-51-8967StorslgpOpemmqfy codes; unclassified (4 sources)Family history of other endocrine, nutritional and metabolic diseases; Translations: [Family history of other endocrine and metabolic diseases]89-83-6142PmwmqteuQovhjmzs codes; unclassified (10 sources)Sleep disorder, unspecified; Translations: [Sleep disturbance, unspecified]89-87-7208NivuwjaxBywglesi codes; unclassified (6 sources)Frequent night waking; Translations: [Insomnia, unspecified] 89-25-5550LjmtzfvlUmxiklql codes; unclassified (1 source)Insomnia, unspecified; Translations: [Other sleep disturbances] 97-44-5149XfsvspxoIvhi and subcutaneous tissue infections (20 sources)Pilonidal abscess of cleft; Translations: [Pilonidal cyst with abscess]Onset: 411388-45-1707LrczniucSxrhpaproto; intervertebral disc disorders; other back problems (8 sources)Disorder of right sciatic nerve; Translations: [Sciatica, right side] Onset: 509762-50-5601HixdygjfCljmvygfjjql (1 source)Pain in right knee; Translations: [Pain in right knee]Onset: 87-41-8509Diyruvekibyy (6 sources)Autogenerated ProblemOnset: 223149-51-5602Bysrwqxztjgs (1 source)Acute cough; Translations: [Acute cough]Onset: 95-32-9681Qvrkxnrhepyg (1 source)Tail Bone PainOnset: 24-51-3262Qbuvnuyqhbjc (1 source)New PatientOnset: 62-45-5589Qonqdhjcnqtv (1 source)Post-opOnset: 19-76-8297Srguqrsimhsn (1 source)CystOnset: 96-86-6546Xzsyyesownjp (1 source)Testicle PainOnset: 16-05-9003Eiaxwjtdwshj (1 source)SuicidalOnset: 97-60-4845Vnvmshstpomw (1 source)my mental healthOnset: 07-11-2024 Past or Other Problems Problem ClassificationProblemDateDocumented DateEpisodic/ChronicAppendicitis and other appendiceal conditions (18 sources)Acute appendicitis; Translations: [Unspecified acute appendicitis] Onset: 02-20-2022 Resolved: 160132-18-9219BniivtrqUigvyadkdnhdy mental health disorders (17 sources)At risk for deliberate self harm ; Translations: [Other symptoms and signs involving emotional state]Onset: 025097-65-0054GtwxnallTsgtaqiuhxj chest pain (1 source)Chest pain, unspecified; Translations: [Chest pain, unspecified]Onset: 81-90-4192VymrdlxaCqhhc connective tissue disease (1 source)Pain of bilateral hands; Translations: [Pain in right hand]07-21-2023 EpisodicOther lower respiratory disease (2 sources)Cough; Translations: [Cough, unspecified]Onset: 87-77-8081Kyhzuhup Other screening for suspected conditions (not mental disorders or infectious disease) (9 sources)Elevated liver enzymes level; Translations: [Other specified abnormal findings of blood chemistry]Onset: 12-51-2234IrmkzfolNzvfj skin disorders (1 source)Other specified disorders of the skin and subcutaneous tissue; Translations: [Other specified disorders of the skin and subcutaneous tissue] Onset: 51-09-0703NdwsiyvaRjrnczfbv and history of mental health and substance abuse codes (1 source)Personal history of other mental and behavioral disorders; Translations: [Personal history of othermental and behavioral disorders]Onset: 23-18-8761VopvklqbDfnauon and intentional self-inflicted injury (1 source)Suicidal ideations; Translations: [Suicidal ideations]Onset: 31-32-1072Qkrovctv Results Test NameValueInterpretationReference RangeFacilityBacteria identified Cx Nom (U)on 65-77-6019Zlqxixzt identified Aer cx Nom (Unsp spec)10-50,000 ORGANISMS/mL NORMAL UROGENITAL FLORAProMedica Health SystemProMedica Health SystemURINALYSIS on 26-99-7993Hrvbtztot Ql (U)NegativeNormalNegativeProParkwood Hospital Comment on above:Order Comment: Clean catch, midstreamif symptomatic. Urine culture if positive for bacteria, blood,protein, white blood count over 5, nitrates or leukocyte esterase positivePerformed By: #### 95901-5, THYR, 5643-2, CBCA, 3298-7, 4024-6, CMP #### [facility] ([id number]) [address] [place] [address], [address] [place], [place] [address]VWUEH/HGBNegativeNormalNegativeAvita Health System Galion HospitalComment on above:Order Comment: Clean catch, midstreamif symptomatic. Urine culture if positive for bacteria, blood,protein, white blood count over 5, nitrates or leukocyte esterase positivePerformed By: #### 00692-9, THYR, 5643-2, CBCA, 3298- 7, 4024-6, CMP #### [facility] ([id number]) [address] [place] [address], [address] [place], [place] [address]Vwsho (U)YellowNormalYellowProParkwood HospitalComment on above:Order Comment: Clean catch, midstreamif symptomatic. Urine culture if positive for bacteria, blood,protein, white blood count over 5, nitrates or leukocyte esterase positivePerformed By: #### 82803-6, THYR, 5643-2, CBCA, 3298- 7, 4024-6, CMP #### [facility] ([id number]) [address], [address] [place], [place] [address]Priktml Ql (U)NegativeNormalNegativeAvita Health System [facility] Comment on above:Order Comment: Clean catch, midstreamif symptomatic. Urine culture if positive for bacteria, blood,protein, white blood count over 5, nitrates or leukocyte esterase positivePerformed By: #### 30656-8, THYR, 5643-2, CBCA, 3298-7, 4024-6, CMP #### [facility] ([id number]) [address], [address] [place], [place] [address]Mhhngpf Ql (U)NegativeNormalNegativeAvita Health System [facility] Comment on above:Order Comment: Clean catch, midstreamif symptomatic. Urine culture if positive for bacteria, blood,protein, white blood count over 5, nitrates or leukocyte esterase positivePerformed By: #### 68785-4, THYR, 5643-2, CBCA, 3298-7, 4024-6, CMP #### [facility] ([id number]) [address], [address] [place], [place] [address]Irpxbbplk esterase Test strip Ql (U)NegativeNormalNegative [facility] HospitalComment on above:Order Comment: Clean catch, midstreamif symptomatic. Urine culture if positive for bacteria, blood,protein, white blood count over 5, nitrates or leukocyte esterase positivePerformed By: #### 35809-1, THYR, 5643-2, CBCA, 3298-7, 4024-6, CMP #### [facility] ([id number]) [address], [address] [place], [place] [address]Dundaaw Ql (U)NegativeNormalNegativeAvita Health System [facility] Comment on above:Order Comment: Clean catch, midstreamif symptomatic. Urine culture if positive for bacteria, blood,protein, white blood count over 5, nitrates or leukocyte esterase positivePerformed By: #### 96348-2, THYR, 5643-2, CBCA, 3298-7, 4024-6, CMP #### [facility] ([id number]) [address], [address] [place], [place] [address]JV,URINE6.7Saxtdy8.0-8.5ProMedica Western Reserve HospitalComment on above:Order Comment: Clean catch, midstreamif symptomatic. Urine culture if positive for bacteria, blood,protein, white blood count over 5, nitrates or leukocyte esterase positivePerformed By: #### 30767-7, THYR, 5643-2, CBCA, 3298- 7, 4024-6, CMP #### [facility] ([id number]) [address] [facility], [address] [place], [place] [address]Xnbffah Ql (U)NegativeNormalNegativeProParkwood Hospital Comment on above:Order Comment: Clean catch, midstreamif symptomatic. Urine culture if positive for bacteria, blood,protein, white blood count over 5, nitrates or leukocyte esterase positivePerformed By: #### 24688-3, THYR, 5643-2, CBCA, 3298-7, 4024-6, CMP #### [facility] ([id number]) [address] [facility], [address] [place], [place] [address]Rffimllp gravity (U) [Rel density]1.792Gvytdw4.003-1.035 [facility] Reserve HospitalComment on above:Order Comment: Clean catch, midstreamif symptomatic. Urine culture if positive for bacteria, blood,protein, white blood count over 5, nitrates or leukocyte esterase positivePerformed By: #### 34422-0, THYR, 5643-2, CBCA, 3298-7, 4024-6, CMP #### [facility] ([id number]) [address], [address] [place], [place] [address]DLLATAZOBOwxpcFktyfjNrngbKkyYkigla [facility]edo HospitalComment on above:Order Comment: Clean catch, midstreamif symptomatic. Urine culture if positive for bacteria, blood,protein, white blood count over 5, nitrates or leukocyte esterase positivePerformed By: #### 48551-4, THYR, 5643-2, CBCA, 3298- 7, 4024-6, CMP #### [facility] ([id number]) [address], [address] [place], [place] [address]XXPIMPDMJSYD<1.1 eu/dLNormal<1.1 eu/dLAvita Health System Galion Hospital Comment on above:Order Comment: Clean catch, midstreamif symptomatic. Urine culture if positive for bacteria, blood,protein, white blood count over 5, nitrates or leukocyte esterase positivePerformed By: #### 24764-1, THYR, 5643-2, CBCA, 3298-7, 4024-6, CMP #### [facility] ([id number]) [address], [address] [place], [place] [address]XZIRE CULTUREon 35-62-9451Phhmevqq identified Cx Nom (U)CULTURE RESULTS 10-50,000 ORGANISMS/mL NORMAL UROGENITAL FLORANoalAvita Health System [facility] Hospital Comment on above:Performed By: #### 27470-8, THYR, 5643-2, CBCA, 3298-7, 4024-6, CMP #### [facility] ([id number]) [address], [address] [place], [place] [address]Auxezonkmuvq 54-39-4612Nlbpqoquu Ql (U)NegativeNegativeProMedica Health SystemColor (U)YellowYellowProMedica Health SystemGlucose (U) [Mass/Vol] NegativeNegativeProMedica Health SystemHemoglobin Auto test strip Ql (U)Negative NegativeNorth Country HospitalMedica Health SystemInterpretation and review of laboratory results NormalProMedica Health SystemKetones (U) [Mass/Vol]NegativeNegativeProMedica Health SystemLeukocyte esterase Auto test strip Ql (U)NegativeNegativeProMedica Health SystemNitrite Auto test strip Ql (U)NegativeNegativeProMedica Health SystempH (U)6.0 [pH]5.0 - 8.5ProMedica Health SystemProtein (U) [Mass/Vol] NegativeNegativeProMedica Health SystemSpecific gravity Refractometry automated (U) [Rel density]1.0271.003 - 1.035ProPomerene HospitalTurbidity Ql (U)Clear ClearProPomerene HospitalUrobilinogen Qn (U){Peterson'U}/dL<1.1 eu/dLProPaoli HospitalPOCT NURSING URINE MACROSCOPIC UAon 03-83-1774SJMNTCZLO NURNegativeNormalNegativeAvita Health System Galion HospitalComment on above:Performed By: #### 55928-6, THYR, 5643-2, CBCA, 3298-7, 4024-6, CMP #### [facility] ([id number]) [address], [address] [place], [place] [address]MEOSG/HGB NURNegativeMidland ParkNegativeAvita Health System [facility] Hospital Comment on above:Performed By: #### 09382-6, THYR, 5643-2, CBCA, 3298-7, 4024-6, CMP #### [facility] ([id number]) [address], [address] [place], [place] [address]DXGUIXK NURNegativeNosandhills regional medical centerNegativeAvita Health System [facility] Comment on above:Performed By: #### 96894-6, THYR, 5643-2, CBCA, 3298-7, 4024-6, CMP #### [facility] ([id number]) [address], [address] [place], [place] [address]QYAHDZJ NURNegativeNormalNegativeAvita Health System [facility] Comment on above:Performed By: #### 59469-3, THYR, 5643-2, CBCA, 3298-7, 4024-6, CMP #### [facility] ([id number]) [address], [address] [place], [place] [address]IXKFXZIHG ESTERASE NURNegativeNormalNegativeAvita Health System Galion HospitalComment on above:Performed By: #### 48137-7, THYR, 5643-2, CBCA, 3298-7, 4024-6, CMP #### [facility] ([id number]) [address], [address] [place], [place] [address]XDFYQAB NURNegativeNormalNegativeAvita Health System [facility] Comment on above:Performed By: #### 41115-1, THYR, 5643-2, CBCA, 3298-7, 4024-6, CMP #### [facility] ([id number]) [address], [address] [place], [place] [address]VH NUR5.5Mogmgf7.0, 6.0, 6.5, 7.0, 7.5, 8.0, 8.5, 5.5ProMedica Western Reserve HospitalComment on above:Performed By: #### 78422-2, THYR, 5643-2, CBCA, 3298-7, 4024-6, CMP #### [facility] ([id number]) [address], [address] [place] [address]UPNIEMR NURNegativeNormalNegativeAvita Health System [facility] Comment on above:Performed By: #### 63877-5, THYR, 5643-2, CBCA, 3298-7, 4024-6, CMP #### [facility] ([id number]) [address], [address] [place] [address]OZRRYPPD GRAVITY SUE>=1.731Ttpzxmtc9.010, 1.015, 1.020, 1.025 [facility] HospitalComment on above:Performed By: #### 63482-8, THYR, 5643-2, CBCA, 3298-7, 4024-6, CMP #### [facility] ([id number]) [address], [address] [place], [place] [address]JZZFSOYFRNDZ NUR0.2 E.U./dLNormalAvita Health System [facility] Hospital Comment on above:Performed By: #### 98999-9, THYR, 5643-2, CBCA, 3298-7, 4024-6, CMP #### [facility] ([id number]) [address], [address] [place], [place] [address]WD SCROTUM WITH DUPLEXon 02-03-3164CW SCROTUM WITH DUPLEXUS SCROTUM WITH DUPLEX CLINICAL [...] by Maciel Skaggs MD on 12/30/2024 12:32 AMNormalProParkwood HospitalBASI METABOLIC PANELon 52-22-0278Qdkkg gap [Moles/Vol]12 mmol/LNormal 5-15ProHuntsville Memorial HospitalComment on above:Performed By: #### BMP #### [facility] ([facility]) [address] [place] [address] VIRCalcium [Mass/Vol]10.2 mg/dLNormal8.5-10.5Pro[facility] HospitalComment on above:Performed By: #### BMP #### [facility] ([facility]) [address] [place] [address] VIRChloride [Moles/Vol]103 mmol/YEaabyg94-881RrsPqdxkqHuntsville Memorial HospitalComment on above:Performed By: #### BMP #### [facility] ([facility]) [address] [place] [address] VIRCO2 [Moles/Vol]28 mmol/BOqglel08-51ObaOqqpjc [facility] HospitalComment on above:Performed By: #### BMP #### [facility] ([facility]) [address] [place] [address] VIRCreatinine [Mass/Vol]0.96 mg/dLNormal0.60-1.30ProHuntsville Memorial HospitalComment on above:Result Comment: METHOD TRACEABLE TO IDMS STANDARDPerformed By: #### BMP #### [facility] ([facility]) [address] [place] [address] VIREGFR (CKD-EPI) NON-RACE DEPENDENT>^90Normal>=60ProHuntsville Memorial HospitalComment on above:Result Comment: Reported eGFR is based on the CKD-EPI 2020 equation that does not use a race coefficient.Performed By: #### BMP #### [facility] ([facility]) [address] [place] [address] VIRGlucose [Mass/Vol]90 mg/nNEkkkge76-93FbeMwcuthHuntsville Memorial HospitalComment on above:Performed By: #### BMP #### [facility] ([facility]) [address] [place] [address] VIRPotassium [Moles/Vol]3.9 mmol/LNormal3.5-5.0ProHuntsville Memorial HospitalComment on above:Performed By: #### BMP #### [facility] ([facility]) [address] [place] [address] VIRSodium [Moles/Vol]143 mmol/MNljgqk637-784GdqEyfkmt [facility] HospitalComment on above:Performed By: #### BMP #### [facility] ([facility]) [address] [place] [address] VIRUrea nitrogen [Mass/Vol]14 mg/dLNormal5-23ProHuntsville Memorial HospitalComment on above:Performed By: #### BMP #### [facility] ([facility]) [address] [facility] [address] [place] [address] VIRHGB A1C (GLYCO-HGB)on 67-99-4857Szfumyr [Mass/Vol]111 mg/dL NormalProParkwood HospitalComment on above:Performed By: #### 83027-7, THYR, 5643-2, CBCA, 3298-7, 4024-6, CMP #### [facility] ([id number]) [address] [facility], [address] [place], [place] [address]LvH3e (Bld) [Mass fraction]5.5 %Normal4.4-5.6ProParkwood HospitalComment on above:Result Comment: NOTE ADA Guidelines Result HgbA1c Normal : less than 5.7 % Prediabetes : 5.7 % to 6.4 % Diabetes : > 6.4 % Use with caution in patients with abnormal hemoglobin variants as the half-life of red blood cells and in vivo glycation rates are affected.Performed By: #### 80147-1, THYR, 5643-2, CBCA, 3298-7, 4024-6, CMP #### [facility] ([id number]) [address] [facility], [address] [place], [place] [address]Snzwv 1996 panelon 60-61-4269Jjefcxzxfnl [Mass/Vol]172 mg/dL Fxbiho428-592YiiFcpaxl [facility] HospitalComment on above:Performed By: #### HA1C, 63136-4 #### [facility] ([id number]) [address], [address] [place], [place] [address]Rzyfzmlyfjc in HDL [Mass/Vol]33 mg/dLLow>39ProParkwood HospitalComment on above:Result Comment: HDL <40 mg/dL - High Risk HDL > or = 40mg/dL- Desirable HDL >60 mg/dL - Negative Risk Performed By: ###Bharat OWENS 94045-5 #### [facility] ([id number]) [address], [address] [place], [place] [address]Srmoonyvgpj in LDL [Mass/Vol]117 mg/dLNormal<130ProMediMagruder Hospital HospitalComment on above:Result Comment: LDL <100 mg/dL - Desirable LDL >160 mg/dL - High Risk Performed By: ###Bharat OWENS 01605-3 #### [facility] ([id number]) [address], [address] [place], [place] [address]Mllutvwraqq in VLDL [Mass/Vol]22 mg/dLNormal0-30ProKettering Health Main Campus HospitalComment on above:Performed By: #Jeffery OWENS 27423-0 #### [facility] ([id number]) [address], [address] [place], [place] [address]ZOUOKGFRJVX:HDL5.2High1.0-5.0ProKettering Health Main Campus HospitalComment on above:Performed By: #Jeffery OWENS 71164-0 #### [facility] ([id number]) [address], [address] [place], [place] [address]Qmrekfmofggz [Mass/Vol]109 mg/gOXouztb47-749RmoOhtsuc [facility] HospitalComment on above:Performed By: ###Bharat OWENS 92773-1 #### [facility] ([id number]) [address], [address] [place], [place] [address]DXDPYFEFKZXMKja 27-47-2489Cjmafzdtzqqud [Mass/Vol]ug/mLLow 10.0-30.0ProParkwood HospitalComment on above:Result Comment: Reference ranges are for therapeutic limits.Performed By: #### 56319-3, THYR, 5643-2, CBCA, 3298-7, 4024-6, CMP #### [facility] ([id number]) [address], [address] [place], [place] [address]UTN AND AUTO DIFFon 98-25-9143MXSPHMJC BASOPHIL0.1 X10E9/LNormal 0.0-0.2ProMedAultman HospitalComment on above:Performed By: #### 72139-0, THYR, 5643-2, CBCA, 3298-7, 4024-6, CMP #### [facility] ([id number]) [address], [address] [place], [place] [address]KKALQGRC NEUTROPHIL6.5 X10E9/LNormal1.5-6.6ProKettering Health Main Campus HospitalComment on above:Performed By: #### 47391-6, THYR, 5643-2, CBCA, 3298-7, 4024-6, CMP #### [facility] ([id number]) [address], [address] [place], [place] [address]Jeqnotvro/100 WBC (Bld)0.6 %NormalProKettering Health Main Campus Hospital Comment on above:Performed By: #### 00889-6, THYR, 5643-2, CBCA, 3298-7, 4024-6, CMP #### [facility] ([id number]) [address], [address] [place], [place] [address]Ovhklmmusad (Bld) [#/Vol]0.1 10*3/uLNormal0.0-0.4ProParkwood HospitalComment on above:Performed By: #### 35009-7, THYR, 5643-2, CBCA, 3298-7, 4024-6, CMP #### [facility] ([id number]) [address], [address] [place], [place] [address]Mycczksddsa/100 WBC (Bld)0.7 %NormalProKettering Health Main Campus Hospital Comment on above:Performed By: #### 49195-9, THYR, 5643-2, CBCA, 3298-7, 4024-6, CMP #### [facility] ([id number]) [address], [address] [place], [place] [address]Fmiuyatxwqq distribution width (RBC) [Ratio]13.6 %Normal 11.5-15.0ProKettering Health Main Campus HospitalComment on above:Performed By: #### 29833-0, THYR, 5643-2, CBCA, 3298-7, 4024-6, CMP #### [facility] ([id number]) [address], [address] [place], [place] [address]Fqtnnqnbyp (Bld) [Volume fraction]43.5 %Gznrff00-92DgcQpdgzw [facility] HospitalComment on above:Performed By: #### 17726-9, THYR, 5643-2, CBCA, 3298-7, 4024-6, CMP #### [facility] ([id number]) [address], [address] [place], [place] [address]Yodsdkjwsc (Bld) [Mass/Vol]15.5 g/rNMryede97.0-17.0ProKettering Health Main Campus HospitalComment on above:Performed By: #### 57158-1, THYR, 5643-2, CBCA, 3298-7, 4024-6, CMP #### [facility] ([id number]) [address] [address] [place], [place] [address]Hicealsgegx (Bld) [#/Vol]2.0 10*3/uLNormal1.0-3.5ProMedRegency Hospital Cleveland East HospitalComment on above:Performed By: #### 59211-2, THYR, 5643-2, CBCA, 3298-7, 4024-6, CMP #### [facility] ([id number]) [address], [address] [place], [place] [address]Igmptkcredr/100 WBC (Bld)21.0 %NormalProKettering Health Main Campus Hospital Comment on above:Performed By: #### 70965-3, THYR, 5643-2, CBCA, 3298-7, 4024-6, CMP #### [facility] ([id number]) [address], [address] [place], [place] [address]RII (RBC) [Entitic mass]30.4 urPgncff39-21XbhAywuee [facility] HospitalComment on above:Performed By: #### 79280-3, THYR, 5643-2, CBCA, 3298-7, 4024-6, CMP #### [facility] ([id number]) [address], [address] [place], [place] [address]MBVZ (RBC) [Mass/Vol]35.7 g/tMBoplaq54-54SjiRhdwap [facility] HospitalComment on above:Performed By: #### 70293-2, THYR, 5643-2, CBCA, 3298-7, 4024-6, CMP #### [facility] ([id number]) [address], [address] [place], [place] [address]XJJ (RBC) [Entitic vol]85 fCPhfyxj09-229GsfOvhzar [facility] HospitalComment on above:Performed By: #### 21181-3, THYR, 5643-2, CBCA, 3298-7, 4024-6, CMP #### [facility] ([id number]) [address], [address] [place], [place] [address]Nrcrbldea (Bld) [#/Vol]0.8 10*3/uLNormal0-0.9ProKettering Health Main Campus HospitalComment on above:Performed By: #### 43384-6, THYR, 5643-2, CBCA, 3298-7, 4024-6, CMP #### [facility] ([id number]) [address], [address] [place], [place] [address]Zlrthhorp/100 WBC (Bld)8.5 %NormalAvita Health System [facility] Comment on above:Performed By: #### 64900-2, THYR, 5643-2, CBCA, 3298-7, 4024-6, CMP #### [facility] ([id number]) [address], [address] [place], [place] [address]Mkqartjgfyg/100 WBC (Bld)69.2 %NormalAvita Health System [facility] Comment on above:Performed By: #### 86141-8, THYR, 5643-2, CBCA, 3298-7, 4024-6, CMP #### [facility] ([id number]) [address], [address] [place], [place] [address]Rjqgaxef mean volume (Bld) [Entitic vol]8.7 fLNormal7-12 [facility] HospitalComment on above:Performed By: #### 42588-4, THYR, 5643-2, CBCA, 3298-7, 4024-6, CMP #### [facility] ([id number]) [address], [address] [place], [place] [address]Daeofpgiy (Bld) [#/Vol]248 10*3/gWUkuodi011-333YghFanegl [facility] HospitalComment on above:Performed By: #### 33583-7, THYR, 5643-2, CBCA, 3298-7, 4024-6, CMP #### [facility] ([id number]) [address], [address] [place], [place] [address]LXY COUNT5.09 X10E12/LNormal4.10-5.70[facility] Comment on above:Performed By: #### 86782-1, THYR, 5643-2, CBCA, 3298-7, 4024-6, CMP #### [facility] ([id number]) [address], [address] [place], [place] [address]UKT (Bld) [#/Vol]9.4 10*3/uLNormal4.0-11.0[facility] HospitalComment on above:Performed By: #### 61685-8, THYR, 5643-2, CBCA, 3298-7, 4024-6, CMP #### [facility] ([id number]) [address], [address] [place], [place] [address]THFQESCCGRLHQ METABOLIC PANELon 74-01-6749Zrgiobe [Mass/Vol]4.3 g/dLNormal3.2-5.3[facility] HospitalComment on above:Performed By: #### 12629-8, THYR, 5643-2, CBCA, 3298-7, 4024-6, CMP #### [facility] ([id number]) [address], [address] [place], [place] [address] [Catalytic activity/Vol]81 U/KVarnvx47-886ZsnLklyvl Stevens HospitalComment on above:Performed By: #### 68712-5, THYR, 5643-2, CBCA, 3298-7, 4024-6, CMP #### [facility] ([id number]) [address], [address] [place], [place] [address]FHH [Catalytic activity/Vol]60 U/LHigh0-40ProMedica Stevens HospitalComment on above:Performed By: #### 92393-6, THYR, 5643-2, CBCA, 3298-7, 4024-6, CMP #### [facility] ([id number]) [address], [address] [place], [place] [address]Aghuz gap [Moles/Vol]11 mmol/LNormal5-15ProMedica Stevens HospitalComment on above:Performed By: #### 84115-2, THYR, 5643-2, CBCA, 3298-7, 4024-6, CMP #### [facility] ([id number]) [address], [address] [place], [place] [address]SMQ [Catalytic activity/Vol]38 U/LNormal0-41ProMedica Stevens HospitalComment on above:Performed By: #### 83906-3, THYR, 5643-2, CBCA, 3298-7, 4024-6, CMP #### [facility] ([id number]) [address], [address] [place], [place] [address]Rebhqbsre [Mass/Vol]1.3 mg/dLHigh0.3-1.2ProMedRegency Hospital Cleveland East HospitalComment on above:Performed By: #### 70151-3, THYR, 5643-2, CBCA, 3298-7, 4024-6, CMP #### [facility] ([id number]) [address], [address] [place], [place] [address]Fapmqln [Mass/Vol]9.6 mg/dLNormal8.5-10.5ProMedRegency Hospital Cleveland East HospitalComment on above:Performed By: #### 82464-1, THYR, 5643-2, CBCA, 3298-7, 4024-6, CMP #### [facility] ([id number]) [address], [address] [place], [place] [address]Tsgpwgen [Moles/Vol]104 mmol/HZkpxmi35-292EybLpxjvo [facility] HospitalComment on above:Performed By: #### 07558-9, THYR, 5643-2, CBCA, 3298-7, 4024-6, CMP #### [facility] ([id number]) [address], [address] [place], [place] [address]HP8 [Moles/Vol]23 mmol/PCctbes63-93BzmTeyfgw [facility] Comment on above:Performed By: #### 04012-8, THYR, 5643-2, CBCA, 3298-7, 4024-6, CMP #### [facility] ([id number]) [address], [address] [place], [place] [address]Pdoubujign [Mass/Vol]0.89 mg/dLNormal0.60-1.30ProParkwood HospitalComment on above:Result Comment: METHOD TRACEABLE TO IDMS STANDARD Performed By: #### 84724-1, THYR, 5643-2, CBCA, 3298-7, 4024-6, CMP #### [facility] ([id number]) [address], [address] [place], [place] [address]jHBJ (CKD-EPI) NON-RACE DEPENDENT>90Normal>59ProParkwood HospitalComment on above:Result Comment: Reported eGFR is based on the CKD-EPI 2020 equation that does not use a race coefficient.Performed By: #### 87439-0, THYR, 5643-2, CBCA, 3298- 7, 4024-6, CMP #### [facility] ([id number]) [address], [address] [place], [place] [address]Wsmheqp [Mass/Vol]93 mg/lOZzumpo13-82LjgKoiwfuAvita Health System [facility] Comment on above:Performed By: #### 56696-4, THYR, 5643-2, CBCA, 3298-7, 4024-6, CMP #### [facility] ([id number]) [address], [address] [place], [place] [address]Beecinmuf [Moles/Vol]4.2 mmol/LNormal3.5-5.0ProParkwood HospitalComment on above:Performed By: #### 32582-1, THYR, 5643-2, CBCA, 3298-7, 4024-6, CMP #### [facility] ([id number]) [address], [address] [place], [place] [address]Wgavthl [Mass/Vol]7.8 g/dLNormal6.0-8.0[facility] Comment on above:Performed By: #### 26172-7, THYR, 5643-2, CBCA, 3298-7, 4024-6, CMP #### [facility] ([id number]) [address], [address] [place], [place] [address]Ywmyqn [Moles/Vol]138 mmol/OZyxwyr568-498BusCwdwoz Woden HospitalComment on above:Performed By: #### 05744-0, THYR, 5643-2, CBCA, 3298-7, 4024-6, CMP #### [facility] ([id number]) [address], [address] [place], [place] [address]Kgvk nitrogen [Mass/Vol]16 mg/dLNormal5-23ProWexner Medical Centerca Woden HospitalComment on above:Performed By: #### 12328-2, THYR, 5643-2, CBCA, 3298-7, 4024-6, CMP #### [facility] ([id number]) [address], [address] [place] [address]UAYT SCREEN, URINEon 96-79-4630IFFIEAEWRZI/METHAMPNegativeNormal NEGProMedica Woden HospitalComment on above:Result Comment: AMPH/METH screening cut off = 1000 ng/mLPerformed By: #### DSU #### [facility] ([id number]) [address], [address] [place] [address]YZEIJGEFNTXQBktxpoqhLsfptiZUWXpqHseojn Woden HospitalComment on above:Result Comment: Barbiturates screening cut off value = 200 ng/mLPerformed By: #### DSU #### [facility] ([id number]) [address] [address]IEVUEXQPEZMXNXSKxxkqldgKifdfvJSCYbbWokwgo [facility]oden HospitalComment on above:Result Comment: Benzodiazepines screening cut off value = 200 ng/mL Performed By: #### DSU #### [facility] ([id number]) [address] [address] [place], [place] [address]EDLQFHXKTJWSLpzznwrfZdfqutYSVWvhLwvexd Woden HospitalComment on above:Result Comment: Cannabinoids/THC screening cut off value = 50 ng/mL Performed By: #### DSU #### [facility] ([id number]) [address] [place], [place] [address]UHFGJIR METABOLITENegativeNormalNEGProKettering Health Main Campus Hospital Comment on above:Result Comment: Cocaine screening cut off value = 300 ng/mL Performed By: #### DSU #### [facility] ([id number]) [address] [facility] [place], [place] [address]WNAKRCWQtpzuozmCcgsrqSGBVtqKfhivo [place] HospitalComment on above:Result Comment: Ecstasy screening cut off value = 500 ng/mL This report is intended for use in clinical monitoring or management of patients.Performed By: #### DSU #### [facility] ([id number]) [address] [facility] [place], [place] [address]APNNPHTHPWuylkvraBvsaleQWYNvhWhrhfk [facility] HospitalComment on above:Result Comment: Methadone screening cut off value = 300 ng/mL.Performed By: #### DSU #### [facility] ([id number]) [address] [facility] [place], [place] [address]QRMXLSZWgajekwjGtglymADBMegTchoxf [facility] HospitalComment on above:Result Comment: Opiates screening cut off value = 300 ng/mL NOTE: This test is used for the detection of codeine, hydrocodone (>1000 ng/mL), morphine and hydromorphone (>900 ng/mL) in urine.Performed By: #### DSU #### [facility] ([id number]) [address], [address] [place], [place] [address]CAOTHHEUYAmmdstzzZsuqafDUJVxdYknhqv [facility] HospitalComment on above:Result Comment: Oxycodone screening cut off value = 300 ng/mL NOTE: This test is used for the detection of oxycodone and oxymorphone in urine.Performed By: #### DSU #### [facility] ([id number]) [address] [place] [address] [address] [place], [place] [address]VIRGIGDTESQHUUlqqagrdMqtlnuPRPWwuLstjqd [facility] HospitalComcorewell health [facility] on above:Result Comment: Phencyclidine screening cut off value = 25 ng/mL Performed By: #### DSU #### [facility] ([id number]) [address] [place] [address]CGWBQCHig 45-74-2418Wpikzjk [Mass/Vol]mg/dLNormal0.00-0.08 [facility] HospitalComcorewell health greenville hospital on above:Result Comment: This report is intended for use in clinical monitoring or management of patients.Performed By: #### 02512-0, THYR, 5643-2, CBCA, 3298-7, 4024-6, CMP #### [facility] ([id number]) [address] [place] [address]Ldyfyypzoqr [Mass/Vol]on 42-23-2590CWKTDIJNGP<2.9Lthdgp1.0-25.0 [facility] HospitalComcorewell health green[facility] hospital on above:Result Comment: Reference ranges are for therapeutic limits.Performed By: #### 51994-2, THYR, 5643-2, CBCA, 3298-7, 4024-6, CMP #### [facility] ([id number]) [address] [place] [address]XFAKPWV PROFILEon 60-86-3952Oeqa T4 [Mass/Vol]0.86 ng/dLNormal 0.61-1.60[facility] HospitalComcorewell health green[facility] hospital on above:Performed By: #### 12474-8, THYR, 5643-2, CBCA, 3298-7, 4024-6, CMP #### [facility] ([id number]) [address] [place] [address]MXJ2.67 uIU/mLNormal0.49-4.67ProMedica Stevens HospitalComment on above:Performed By: #### 14237-1, THYR, 5643-2, CBCA, 3298-7, 4024-6, CMP #### [facility] ([id number]) [address] [facility] [place], [place] [address]Ylnzsvuch antidepressants [Mass/Vol]on 05-71-1327UXBGSHKLQF NegativeNormalNEGProMedica Stevens HospitalComment on above:Performed By: #### 54280-9, THYR, 5643-2, CBCA, 3298-7, 4024-6, CMP #### [facility] ([id number]) [address] [facility], [address] [place], [place] [address]MEX MACROSCOPIC NURon 59-52-7802YDQSFATOR NURNegativeNormalNEG [facility] Stevens HospitalComment on above:Performed By: #### NUM #### [facility] ([id number]) [address] [place], [place] [address]PANYQ/HGB NURNegativeNormalNEGProMedica Stevens HospitalComment on above:Performed By: #### NUM #### [facility] ([id number]) [address] [place], [place] [address]GYYEEND NURNegativeNormalNEGProMedica Stevens HospitalComment on above:Performed By: #### NUM #### [facility] ([id number]) [address] [place], [place] [address]SJSQJBX NURNegativeNormalNEGProMedica Stevens HospitalComment on above:Performed By: #### NUM #### [facility] ([id number]) [address] [place], [place] [address]SJBJQRHWU ESTERASE NURNegativeNormalNEGProMedica Stevens Hospital Comment on above:Performed By: #### NUM #### [facility] ([id number]) [address] [place], [place] [address]IPRKCPD NURNegativeNormalNEGProKettering Health Main Campus HospitalComment on above:Performed By: #### NUM #### [facility] ([id number]) [address] [place], [place] [address]BC NUR5.5Qrtpii8.0-8.5PWood County HospitalComment on above: Performed By: #### NUM #### [facility] ([id number]) [address] [place], [place] [address]BPQLJCH NURNegativeNormalNEGProKettering Health Main Campus HospitalComment on above:Performed By: #### NUM #### [facility] ([id number]) [address] [place], [place] [address]HZMZLWID GRAVITY SUE>=1.633Iksyst4.003-1.035ProParkwood HospitalComment on above:Performed By: #### NUM #### [facility] ([id number]) [address] [place], [place] [address]NMWXOAEFMLKT NUR0.2 eu/dLNormal<1.1PWood County Hospital Comment on above:Performed By: #### NUM #### [facility] ([id number]) [address] [place], [place] [address]IW Note-Physicianon 48-32-1960RY Note-PhysicianED Note-Physician Basic Information Time Seen: Santiago Turner PA-C 07/05/2024 21:54 Chief Complaint Pt arrives to ED from home with c/o a sharp pain to his upper right chest whenever he coughs, states he sometimes gets winded. States cough is productive. Pa fevers/chills. 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 History of Present Illness Patient is a [...] day(s), # 14 cap(s), Refills(s) 0, Pharmacy: [id number], 183, cm, 07/05/24 21:52:00 EST, Height/Length Dosing, 195.2, kg, 07/05/24 21:52:00 EST, Weight Dosing naproxen, 500 mg = 1 tab(s), Oral, BI (more content not included)...[facility]'s Medical CenterComment on above:Result Comment: Electronically Signed By: Santiago Turner PA-C\.br\Date and Time Signed: 07/06/2499:50 EST\.br\Electronically Co-Signed By: Nato Lezama DO\.br\Date and Time Co- Signed: 07/06/24 06:36 ESTXR Chest 2 Viewson 88-26-9420BD Chest 2 ViewsExam Date/Time: 07/05/2024 22:12 EST [...] Pineda DO Transcribed by: ADELE Technologist: Lillian [facility] Clinical Summaryon [id number] Clinical SummaryED Clinical Summary [place] [id number] ED Clinical Summary Person Information Name: JET DUNCAN/[facility] Age: 18 Years : 2005 Sex: Male Language: Danish PCP: Abbi JAY CNP Marital Status: Single [...] 07/05/2024 23:18:30 07/05/2024 23:18:30 07/05/2024 23:18:30 ADDRESS: [address] [place] [address] [address] [place] [id number] PHYS DOC NOTES: MEDICAL INFORMATION: Prescriptions Given: New Medications [id number], [address], [place] [id number], [phone] cefdinir (cefdinir 300 mg Cap) 1 Capsules By Mouth every 12 hours for 7 Days. Refills: 0. naproxen (naproxen 500 mg Tab) 1 Tablets By Mouth 2 times a day for 10 Days. Refills: 0. PATIENT EDUCATION INFORMATION: Instructions: Upper Respiratory Infection, Adult; Otitis Media, Adult Follow up: With: Address: When: Abbi JAY [address] [id number] [phone] Business (1) In 3 days 07/08/2024 DIAGNOSIS: Cough; Otitis media, right; [facility] Patient Summaryon [id number] Patient SummaryED Patient Summary [address] [address] Patient Discharge Instructions Person Information Name: JET DUNCAN Age: 18 Years Arrival Date: 07/05/2024 21:45:44 Discharge Diagnosis: Cough; Otitis media, right; Upper respiratory infection Primary Care Physician: Abbi JAY CNP Provider Information Primary Provider: Nato Lezama DO Advanced Repairer Cylinder Heads:Santiago Turner PA-C The exam and treatment you received in the Emergency Department were for an urgent problem and are not intended as complete care. It is important that you follow up with a doctor, nurse practitioner,or physician???s emergency medicine physician assistant for ongoing care. If your symptoms become [...] With: Address: When: Abbi JAY [address] [place] [phone] Business (1) In 3 days 07/08/2024 In the event that this physician does not participate in your insurance network, please consult with your insurance company to find a nearby participating provider. Patient Education Materials: Upper Respiratory Infection, Adult; Otitis Media, Adult A MESSAGE TO ALL PATIENTS REGARDING OPIOIDS PRESCRIPTION OPIOIDS: WHAT YOU NEED TO KNOW Prescription opioids can be used to help relieve wqekiids-ib-hzwscy pain and are often prescribed following a [...] be struggling with (more content not included)... NormalUniversity Hospitals Ahuja Medical CenterInfluenza A&B [facility] 08-32-9769Slwbqvgqln A Ag NegativeNormalNegativeUniversity Hospitals Ahuja Medical CenterComment on above:Performed By: #### [id number] #### [facility] [address] [place], [place] [address]Amfhbnabup B AgNegativeNormalNegativeUniversity Hospitals Ahuja Medical CenterComment on above:Result Comment: Test sensitivity and specificity vary for age group, specimen type, antigen types, and prevalence of disease. Test results must be evaluated in conjunction with other clinical data available to the physician. Individuals who received nasally administered Influenza A vaccine may havepositive test results up to 3 days after vaccination.Performed By: #### [id number] #### [facility] [address] [place], [place] [address]FPDVK OTHER TESTSOrdered By: Pauline Munoz on 07-05-2024 Influenzae A AgNegative (07/05/24 10:36 PM)NormalNegativeLAWTON INDI[facility] [place] [facility] SeroInfluenzae B AgNegative 1 (07/05/24 10:36 PM)NormalNegativeLAWTON INDIAN [facility]OS[facility] – [place] Man SeroComment on above:Interpretive Data: Test sensitivity and specificity vary for age group, specimen type, antigen types, and prevalence of disease. Test results must be evaluated in conjunction with other clinical dataavailable to the physician. Individuals who received nasally administered Influenza A vaccine may have positive test results up to 3 days after vaccination.Rapid COV Int NEG CtlPass (07/05/24 10:36 PM)NormalLAWTON INDIAN [facility]OSPITAL [facility] [place] Man SeroRapid COV Int POS CtlPass (07/05/24 10:36 PM)NormalLAWTON INDIAN [facility] [place] Man SeroSARS-CoV+SARS-CoV-2 (COVID-19) Ag IA.rapid Ql (Resp)Not Detected 2 (07/05/24 10:36 PM)NormalNot DetectedLAWTON INDIAN HOSPITAL – [place] Man SeroComment on above:Interpretive Data: The [employer] System for Rapid Detection of SARS-CoV-2 is [...] in patient care settings operating under a [place] Certificate of Waiver, Certificate of Compliance, or Certificate of Accreditation. This test has been authorized only for the detection of proteins from SARS-CoV-2, not for any otherviruses or pathogens; and, in the [facility], this test is only authorized for the duration of the declaration that circumstances exist justifying the authorization of emergency use of in vitro diagnostics for detection and/or diagnosis of the virus that causes COVID-19 under Section 564(b)(1) of the Act,21 U.S.C. 360bbb-3(b)(1), unless the authorization is terminated or revoked sooner.Rapid COVID Antigen ([facility])on 03-96-0873Ovspc COV Int NEG CtlPassNormTriHealth Bethesda Butler HospitalComment on above:Performed By: #### [id number] #### [facility] [address] [place], [place] [address]Ievah COV Int POS CtlPassNormTriHealth Bethesda Butler Hospital Comment on above:Performed By: #### [id number] #### [facility] [address] [place], [place] [address]NOID-DmT+SARS-CoV-2 (COVID-19) Ag IA.rapid Ql (Resp)Not detectedNormalNot DetectedUniversity Hospitals Ahuja Medical CenterComment on above:Result Comment: The [employer]??? System for Rapid Detection of SARS-CoV-2 is [...] under an Emergency Use Authorization. In the [facility], this test has not been FDA cleared [...] any otherviruses or pathogens; and, in the [facility], this test is only authorized for the duration of the declaration that circumstances exist justifying the authorization of emergency use of in vitro diagnostics for detection and/or diagnosis of the virus that causes COVID-19 under Section 564(b)(1) of the Act,21 U.S.C. ??? 360bbb-3(b)(1), unless the authorization is terminated or revoked sooner.Performed By: #### [id number] #### [facility] [address] [place] [address]OD CHEST 1 VWon 65-36-3066AN CHEST 1 VWXR CHEST 1 VW EXAM: XR CHEST 1 VW CLINICAL INFORMATION: Cough, sob. COMPARISON: 10/30/2023 FINDINGS: There are no pleural effusions. The lungs are clear and well aerated. Heart size is within normal limits. IMPRESSION: 1. No acute cardiopulmonary disease. Finalized by Sotero Meneses MD on 07/05/2024 2:46 [facility] Pathology study report documentOrdered By: Chavez Valentine on 45-73-0834Trtozscou study [facility] Other lon 03-22-2024L Specimen: [id number] Received: 03/22/24 Status: MELECIO Cavazosquintin Num: [id number] Spec Type: Surgical Subm Dr: Wilver Felton MD Tissues: A Small Intestine - Biopsy/Polyp (SMALL BOWEL BX'S R/O CELIAC) B GASTRIC FOR HP (GASTRIC BX'S R/O H PYLORI) C Colon Biopsy (RANDOM COLON BX'S R/O MICRO ) Procedures: HE/6, Gross/Micro L4/3, H PYLORI Age/ Patient Sex Location Account Attending Physician Jet Duncan 18/M [id number] Wilver Felton MD SPEC NUM: [id number] RECD: 03/22/24 STATUS: MELECIO CAVAZOSQuintin NUM: [id number] OLEGARIO: 03/22/[address]: Wilver Felton MD ENTERED: 03/22/[address] [facility] [address]: SPEC TYPE: Surgical DEPT: S ENTERED BY: [id number] RECV BY: [id number] ORDERED: HE/6, Gross/Micro L4/3, H PYLORI ORDERED: [...] submitted in a single cassette. (1, ns, M06-1453 A) NAOMI Specimen: [id number] Received: 03/22/24 Status: MELECIO Cavazosquintin Num: [id number] Spec Type: Surgical Subm Dr: Wilver Felton MD Tissues: A Small Intestine - Biopsy/Polyp (SMALL BOWEL BX'S R/O CELIAC) B GASTRIC FOR HP (GASTRIC BX'S R/O H PYLORI) C Colon Biopsy (RANDOM COLON BX'S R/O MICRO ) Procedures: HE/6, Gross/Micro L4/3, H PYLORI Patient: Jet Duncan [id number] (Continued) Specimen: [id number] Received: 03/22/24 (Continued) Gross Description (Continued) Signed (signature on file) Chavez Valentine MD 03/23/24 1501 Specimen: [id number] Received: 03/22/24 Status: MELECIO Riddle Num: [id number] Spec Type: Surgical Subm Dr: Wilver Felton MD Tissues: A Small Intestine - Biopsy/Polyp (SMALL BOWEL BX'S R/O CELIAC) B GASTRIC FOR HP (GASTRIC BX'S R/O H PYLORI) C Colon Biopsy (RANDOM COLON BX'S R/O MICRO ) Procedures: HE/6, Gross/Micro L4/3, H PYLORI Patient: Jet Duncan [id number] (Continued) Specimen: [id number] Received: 03/22/24 (Continued) Gross Description (Continued) Part B is received in formalin labeled with the patients name and gastric BX are two richards- waldrop, focally erythematous, friable, 0.3 cm each in greatest dimension tissue bits. The specimen is entirely submitted in a single cassette. (1, ns, R75-1079L) Part C is received in formalin labeled with the patients name and random colon BX'S are two richards-waldrop, focally erythematous, friable, 0.2 and 0.4 cm tissue bits. The specimen is entirely submitted in a single cassette. (1, ns, A62- 8515 C) Microscopic Description A-C: Microscopic examination is performed. CPT Codes 42343 x3, 55845 Specimen: [id number] Received: 03/22/24 Status: MELECIO Riddle Num: [id number] Spec Type: Surgical Subm Dr: Wilver Felton MD Tissues: A Small Intestine - Biopsy/Polyp (SMALL BOWEL BX'S R/O CELIAC) B GASTRIC FOR HP (GASTRIC BX'S R/O H PYLORI) C Colon Biopsy (RANDOM COLON BX'S R/O MICRO ) Procedures: HE/6, Gross/Micro L4/3, H PYLORI (more content not included)...NormalThe Critical Access Hospital Physician GroupCholesterol [Mass/volume] in Serum or PlasmaOrdered By: Kareem Tijerina on 08-13-2023 Cholesterol [Mass/Vol]162 mg/dNBvjllx164-444FnzaadytfMetrohealth Parma Medical Center Comment on above:Chol less than 200 mg/dl low riskChol 201-239 mg/dl borderline riskChol 240 mg/dl and greater high riskResult Comment: Chol less than 200 mg/dl low risk Chol 201-239 mg/dl borderline risk Chol 240 mg/dl and greater high riskPerformed By: #### MITOM2, L-K MICRO, ALPHA PHEN, HEMOCHROM, CERULOP, TENA, IGG, SMAB #### [facility] , #### PARVEEN, TSH3 #### [place] [address] USACholesterol in LDL Calc [Mass/Vol]Ordered By: Kareem Tijerina on 74-72-8355Igixzpyscxr in LDL [Mass/Vol]101 mg/dLHigh0-100Met[facility] Medical CenterComment on above:LDL ATP III CLASSIFICATIONLDL less than 100 mg/dL OptimalLDL 100-129 mg/dL Near or above omrkmcoMZX640-819 mg/dL Borderline highLDL 160-189 mg/dL HighLDL greater than 189 mg/dL Very high Cholesterol in VLDL Calc [Mass/Vol]Ordered By: Kareem Tijerina on 08-13-2023 Cholesterol in VLDL [Mass/Vol]28 mg/dLMetrohealth Parma Medical CenterHbA1c HPLC (Bld) [Mass fraction]on 23-05-1534CqY2v (Bld) [Mass fraction]5.6 %[facility] Medical CenterInsulinon 11-27-8227Dpcjunp02.8 u[iU]/mLNormal2.6-24.9The [facility] Access [facility] Physician [facility] CenterComment on above:Result Comment: Performed at: - [facility] [address] [id number] Footwear Sales Leader: Zechariah Paula PhD, Phone: [phone] PERFORMED BY: [place] [address] PATHOLOGIST INDUSTRIAL GARAGE SERVICER LISA COOLEY M.D.Performed By: #### MITOM2, L-K MICRO, ALPHA PHEN, HEMOCHROM, CERULOP, TENA, IGG, SMAB #### [facility] , #### PARVEEN, TSH3 #### [place] [address] USALipid Panelon 52-06-9141WWO Cholesterol,Tsindyovis660 mg/dLHigh0-100The Wellspan HealthComment on above:Result Comment: LDL ATP III CLASSIFICATION LDL less than 100 mg/dL Optimal LDL 100-129 mg/dL Near or above optimal LDL 130-159 mg/dL Borderline high LDL 160-189 mg/dL High LDL greater than 189 mg/dL Very highPerformed By: #### MITOM2, L-K MICRO, ALPHA PHEN, HEMOCHROM, CERULOP, TENA, IGG, SMAB #### [facility] , #### PARVEEN, TSH3 #### [place] [address] USATriglyceride w/Kcoidu404 mg/dLNormal0-149The [facility] Access [facility] Physician [facility] CenterComment on above:Result Comment: TRIG ATP III CLASSIFICATION TRIG less than 150 mg/dL Normal TRIG 150-199 mg/dL Borderline high TRIG 200-500 mg/dL High TRIG greater than 500 mg/dL Very high Standard traceable to the Center for Disease Conrtrol and Prevention (CDC) test method.Performed By: #### MITOM2, L-K MICRO, ALPHA PHEN, HEMOCHROM, CERULOP, TENA, IGG, SMAB #### [facility] , #### [address]VEEN, TSH3 #### [place] [address] USAVLDL ZPSSVMPGKSR52 mg/dLNoCentral Carolina Hospital Physician GroupComment on above:Performed By: #### MITOM2, L-K MICRO, ALPHA PHEN, HEMOCHROM, CERULOP, TENA, IGG, SMAB #### [facility] , #### PARVEEN, TSH3 #### [facility] [address] [place] [address] USASerum or plasma high density lipoprotein (HDL) cholesterol measurementOrdered By: Kareem Tijerina on 33-29-4264Uqxdierzqfn in HDL [Mass/Vol]32 mg/hGQbirab75-78Hseexpqty[address] [place], [place] [address]Comment on above: HDL CHOL ATP-III CLASSIFICATION Cardiovascular RiskHDL > or equal to 60 mg/dL LOWHDL < 40 mg/dL HIGHResult Comment: HDL CHOL ATP-III CLASSIFICATION Cardiovascular Risk HDL > or equal to 60 mg/dL LOW HDL < 40 mg/dL HIGHPerformed By: #### MITOM2, L-K MICRO, ALPHA PHEN, HEMOCHROM, CERULOP, TENA, IGG, SMAB #### [facility] , #### PARVEEN, TSH3 #### [facility] [address] [place] [address] USASerum or plasma insulin measurement (units/volume)Ordered By: Kareem Tijerina on 02-67-1580Cntpown Qn23.8 u[iU]/mL2.6-24.9[facility] Medical CenterComment on above:Performed at: [facility] [address] [id number] Director: Zechariah Paula PhD, Phone: [phone] or plasma total cholesterol/high density lipoprotein (HDL) cholesterol mass ratOrdered By: Kareem Tijerina on 08-13-2023 Cholesterol.total/Cholesterol in HDL [Mass ratio]5.1 {ratio}Normal<5.0[facility] Medical CenterComment on above:Result Comment: PERFORMED BY: [place] [address] PATHOLOGIST INDUSTRIAL GARAGE SERVICER LISA COOLEY M.D.Performed By: #### MITOM2, L-K MICRO, ALPHA PHEN, HEMOCHROM, CERULOP, TENA, IGG, SMAB #### [facility] , #### PARVEEN, TSH3 #### [facility] [address] [place] [address] USATriglyceride [Mass/volume] in Serum or PlasmaOrdered By: Kareem Tijerina on 70-10-9835Xmvbrmpmajeh [Mass/Vol]144 mg/dL0-149[facility] Medical CenterComment on above:TRIG ATP III CLASSIFICATIONTRIG less than 150 mg/dL NormalTRIG 150-199 mg/dL Borderline highTRIG 200-500 mg/dL High TRIG greater than 500 mg/dL Very highStandard traceable to the Center for Disease Conrtrol and Prevention (CDC) test method.Laboratory - Chemistry and Chemistry - challengeon 37-06-2305ERM Qn1.138 m[IU]/L0.516-4.130[facility] CenterNo Panel Informationon 69-90-383122767790-Eklsmmr Vitamin D Total11.0 ng/mLMetrohealth Parma Medical CenterComment on above:<20 ng/mL Vit D ndrcuevsd83-<30 ng/mL Vit D hryrbdbqhagf77-545 ng/mL Vit D sufficient>100 ng/mL Potential ToxicitySerum or plasma thyroperoxidase antibody assay (units/volume) on 98-47-1146DGE Ab Qn9 [IU]/mL0-26[facility] Thyroglobulin [Mass/volume] in Serum or Plasmaon 11-37-2267Xtcdhnvtnjrpn [Mass/Vol]<1.0 [IU]/mL0.0-0.9[facility] Medical CenterComment on above: Thyroglobulin Antibody measured by Ana Maria CoulterMethodologyIt should be noted that the presence of thyroglobulinantibodies may not be pathogenic nor diagnostic, especiallyat very low levels. The assay java xml developer has found thatfour percent of individuals without evidence of thyroiddisease or auto immunity will have positive TgAb levels upto 4 IU/mL.Performed at: [facility] [address] [id number] Director: Zechariah Paula PhD, Phone: [phone] 40-89-4626Vmgpxhfnqnpyn [id number]#1.00[facility] Noteon 17-42-5255Pjitypiicodpf [id number]#1.00[facility] [id number]#1.00[facility] HospitalAlanine aminotransferase [Enzymatic activity/volume] in Serum or PlasmaOrdered By: Lewis Mirza on 72-80-7025LIE [Catalytic activity/Vol]56 U/LHigh7-52[facility] CenterComment on above:Performed By: #### MITOM2, L-K MICRO, ALPHA PHEN, HEMOCHROM, CERULOP, TENA, IGG, SMAB #### [facility] , #### PARVEEN, TSH3 #### [facility] [address] [place] [address] USAAlbumin [Mass/volume] in Serum or Plasma by Bromocresol green (BCG) dye binding methoOrdered By: Lewis Mirza on 65-75-8730Tzstpma BCG dye [Mass/Vol]4.4 g/dL3.5-5.7FBlanchard Valley Health System Bluffton HospitalAlkaline phosphatase [Enzymatic activity/volume] in Serum or PlasmaOrdered By: Lewis Mirza on 46-59-2582IVJ [Catalytic activity/Vol]58 U/BTyrixb47-806UhkekjzvaMetrohealth Parma Medical CenterComment on above:Performed By: #### MITOM2, L-K MICRO, ALPHA PHEN, HEMOCHROM, CERULOP, TENA, IGG, SMAB #### [facility] , #### PARVEEN, TSH3 #### [facility] [address] [place] [id number] USAAnti-Centromere B Antibodieson 59-12-3934Xzeo-Centromere B Antibodies<0.8Gnaklx4.0-0.9The [facility] Hospital Physician GroupComment on above:Result Comment: Performed at: [facility] - [id number] [place], [place] [id number] Footwear Sales Leader: Zechariah Paula PhD, Phone: [phone] By: #### MITOM2, L-K MICRO, ALPHA PHEN, HEMOCHROM, CERULOP, TENA, IGG, SMAB #### [facility] , #### PARVEEN, TSH3 #### [place] [address] USAAnti-RNPon 65-77-4412Dynz-RNP0.9Jmpyid5.0-0.9The [facility] Hospital Physician GroupComment on above:Performed By: #### MITOM2, L-K MICRO, ALPHA PHEN, HEMOCHROM, CERULOP, TENA, IGG, SMAB #### [facility] , #### PARVEEN, TSH3 #### [place] [address] USAAnti-Newberry Antibodieson 66-85-9446Aoun-Newberry Antibodies <0.7Ratgtc4.0-0.9The [facility] Hospital Physician GroupComment on above:Performed By: #### MITOM2, L-K MICRO, ALPHA PHEN, HEMOCHROM, CERULOP, TENA, IGG, SMAB #### [facility] , #### PARVEEN, TSH3 #### [place] [address] USAAnti-dsDNA(DBL)Abon 35-90-6916Syne-dsDNA(DBL)Qf5Akhqgc4-2 [facility] Hospital Physician GroupComment on above:Result Comment: Negative <5 Equivocal 5 - 9 Positive >9Performed By: #### MITOM2, L-K MICRO, ALPHA PHEN, HEMOCHROM, CERULOP, TENA, IGG, SMAB #### [facility] , #### PARVEEN, TSH3 #### [place] [address] USAAspartate aminotransferase [Enzymatic activity/volume] in Serum or PlasmaOrdered By: Lewis Mirza on 28-18-2804RUT [Catalytic activity/Vol]30 U/HDhbqtf79-55Kazsylbjs Regional Medical CenterComment on above: Performed By: #### MITOM2, L-K MICRO, ALPHA PHEN, HEMOCHROM, CERULOP, ETNA, IGG, SMAB #### [facility] , #### PARVEEN, TSH3 #### [facility] [address] [place] [address] USAAutomated basophil %Ordered By: Lewis Mirza on 86-25-9653Wjhpqvubs/100 WBC (Bld)0.7 %Normal.[facility] Comment on above:Performed By: #### MITOM2, L-K MICRO, ALPHA PHEN, HEMOCHROM, CERULOP, TENA, IGG, SMAB #### [facility] , #### PARVEEN, TSH3 #### [place] [address] USAAutomated basophil countOrdered By: Lewis Mirza on 56-30-1057Zbmxvynck (Bld) [#/Vol]0.0 10*3/uLNormal0.0-0.2FBlanchard Valley Health System Bluffton HospitalComment on above:Performed By: #### MITOM2, L-K MICRO, ALPHA PHEN, HEMOCHROM, CERULOP, TENA, IGG, SMAB #### [facility] , #### PARVEEN, TSH3 #### [place] [id number] USAAutomated blood monocyte countOrdered By: Lewis Mirza on 37-23-2290Ywmxbjsls (Bld) [#/Vol]0.7 10*3/uLNormal0.0-0.8[facility] CenterComment on above:Performed By: #### MITOM2, L-K MICRO, ALPHA PHEN, HEMOCHROM, CERULOP, TENA, IGG, SMAB #### [facility] , #### PARVEEN, TSH3 #### [place] [id number] USAAutomated eosinophil %Ordered By: Lewis Mirza on 79-08-5623Dlaklfntifg/100 WBC (Bld)2.7 %Normal.[facility] Comment on above:Performed By: #### MITOM2, L-K MICRO, ALPHA PHEN, HEMOCHROM, CERULOP, TENA, IGG, SMAB #### [facility] , #### PARVEEN, TSH3 #### [facility] [address] [place] [address] USAAutomated eosinophil countOrdered By: Lewis Mirza on 23-27-2649Fyhegzteoyv (Bld) [#/Vol]0.2 10*3/uLNormal0.0-0.45[facility] CenterComment on above:Performed By: #### MITOM2, L-K MICRO, ALPHA PHEN, HEMOCHROM, CERULOP, TENA, IGG, SMAB #### [facility] , #### PARVEEN, TSH3 #### [facility] [address] [place] [address] USAAutomated erythrocytes count in urine sediment (number/area)Ordered By: Lewis Mirza on 16-72-5847AWB Auto (Urine sed) [#/Area]1-2 [HPF]0-4FBlanchard Valley Health System Bluffton HospitalAutomated leukocytes count in urine sediment (number/area)Ordered By: Lewis Mirza on 22-13-0061IAB Auto (Urine sed) [#/Area]None seen [HPF]0-4FBlanchard Valley Health System Bluffton HospitalAutomated monocyte %Ordered By: Lewis Mirza on 00-82-2102Hhlcuusco/100 WBC (Bld)10.7 % Normal.[facility] CenterComment on above:Performed By: #### MITOM2, L-K MICRO, ALPHA PHEN, HEMOCHROM, CERULOP, TENA, IGG, SMAB #### [facility] , #### PARVEEN, TSH3 #### [facility] [address] [place] [address] USAAutomated neutrophil %Ordered By: Lewis Mirza on 05-70-7568Tvkluiskvkq/100 WBC (Bld)53.4 %Normal.[facility] CenterComment on above:Performed By: #### MITOM2, L-K MICRO, ALPHA PHEN, HEMOCHROM, CERULOP, TENA, IGG, SMAB #### [facility] , #### PARVEEN, TSH3 #### [facility] [address] [place] [address] USAAutomated urine color determinationOrdered By: Lewis Mirza on 69-17-6397Avxml (U)YellowNormalYellowMetrohealth Parma Medical CenterComment on above:Order Comment: Reason for Exam Elevated LFTs Reason for Exam FatiguePerformed By: #### MITOM2, L-K MICRO, ALPHA PHEN, HEMOCHROM, CERULOP, TENA, IGG, SMAB #### [facility] , #### PARVEEN, TSH3 #### [place] [address] USABilirubin Test strip Ql (U)Ordered By: Lewis Mirza on 18-83-3534Fpkthqrho Ql (U)NegativeNegativeMetrohealth Parma Medical Center Bilirubin.total [Mass/volume] in Serum or PlasmaOrdered By: Lewis Mirza on 09-08-4114Dawgrqnwj [Mass/Vol]0.8 mg/dLNormal0.3-1.0[facility] CenterComment on above:Performed By: #### MITOM2, L-K MICRO, ALPHA PHEN, HEMOCHROM, CERULOP, TENA, IGG, SMAB #### [facility] , #### PARVEEN, TSH3 #### [facility] [address] [place] [address] USAC reactive protein [Mass/volume] in Serum or PlasmaOrdered By: Lewis Mirza on 71-10-4866UQT [Mass/Vol]< 0.5 mg/dL0.0-0.5FBlanchard Valley Health System Bluffton HospitalC-Reactive Proteinon 59-68-3872ONI [Mass/Vol]mg/LNormal 0.0-0.5The [facility] Hospital Physician GroupComment on above:Performed By: #### MITOM2, L-K MICRO, ALPHA PHEN, HEMOCHROM, CERULOP, TENA, IGG, SMAB #### [facility] , #### PARVEEN, TSH3 #### [facility] [address] [place] [id number] USACalcium [Mass/volume] in Serum or PlasmaOrdered By: Lewis Mirza on 82-36-9878Tbermfn [Mass/Vol]9.4 mg/dLNormal8.6-10.3FBlanchard Valley Health System Bluffton HospitalComment on above:Performed By: #### MITOM2, L-K MICRO, ALPHA PHEN, HEMOCHROM, CERULOP, TENA, IGG, SMAB #### [facility] , #### PARVEEN, TSH3 #### [facility] [address] [place] [address] USACarbon dioxide, total [Moles/volume] in Serum or Plasma Ordered By: Lewis Mirza on 20-07-9708MP0 [Moles/Vol]23.5 mmol/LNormal 21.0-31.0[facility] CenterComment on above:Performed By: #### MITOM2, L-K MICRO, ALPHA PHEN, HEMOCHROM, CERULOP, TENA, IGG, SMAB #### [facility] , #### PARVEEN, TSH3 #### [facility] [address] [place] [address] USAChloride [Moles/volume] in Serum or PlasmaOrdered By: Lewis Mirza on 00-41-2688Hvvqggap [Moles/Vol]107 mmol/MBoeopo83-033HbkihtqomMetrohealth Parma Medical CenterComment on above:Performed By: #### MITOM2, L-K MICRO, ALPHA PHEN, HEMOCHROM, CERULOP, TENA, IGG, SMAB #### [facility] , #### PARVEEN, TSH3 #### [facility] [address] [place] [id number] USAComplement C3on 61-11-8529Hcfkmfzhms C3161 mg/dLNormal 82-167The [facility] Access Hospital Physician GroupComment on above:Result Comment: Performed at: - [facility] [address] [id number] Footwear Sales Leader: Zechariah Paula PhD, Phone: [phone] By: #### MITOM2, L-K MICRO, ALPHA PHEN, HEMOCHROM, CERULOP, TENA, IGG, SMAB #### [facility] , #### PARVEEN, TSH3 #### [place] [address] USAComplement C4on 99-40-3719Mrthrrdfys C424 mg/gGInnnuc41-77 The [facility] Hospital Physician GroupComment on above:Performed By: #### MITOM2, L-K MICRO, ALPHA PHEN, HEMOCHROM, CERULOP, TENA, IGG, SMAB #### [facility] , #### PARVEEN, TSH3 #### [place] [address] USAComplement Total (CH50)on 27-28-8359Ltcxobltcz Total (CH50)49Normal>41The [facility] Access Hospital Physician GroupComment on above:Result Comment: Age Male [...] out of range values. Performed at: - [facility] [id number] Footwear Sales Leader: Zechariah Paula PhD, Phone: [phone] PERFORMED BY: [place] [address] PATHOLOGIST INDUSTRIAL GARAGE SERVICER LISA COOLEY M.D.Performed By: #### MITOM2, L-K MICRO, ALPHA PHEN, HEMOCHROM, CERULOP, TENA, IGG, SMAB #### [facility] , #### PARVEEN, TSH3 #### [place] [address] USAComplete Blood Count Auto Diffon 55-16-0337Vymg Corpuscular HGB Conc34.1 g/eOAmhifv29.5-35.6The [facility] Hospital Physician GroupComment on above:Performed By: #### MITOM2, L-K MICRO, ALPHA PHEN, HEMOCHROM, CERULOP, TENA, IGG, SMAB #### [facility] , #### PARVEEN, TSH3 #### [facility] [address] [place] [address] USANRBC%0.2 /100{WBC}Normal0-0.5[facility] Comment on above:Performed By: #### MITOM2, L-K MICRO, ALPHA PHEN, HEMOCHROM, CERULOP, TENA, IGG, SMAB #### [facility] , #### PARVEEN, TSH3 #### [place] [address] USAComprehensive Metabolic Panelon 82-49-3255Qqjriqs [Mass/Vol]4.4 g/dLNormal3.5-5.7The [facility] Hospital Physician GroupComment on above: Performed By: #### MITOM2, L-K MICRO, ALPHA PHEN, HEMOCHROM, CERULOP, TENA, IGG, SMAB #### [facility] , #### PARVEEN, TSH3 #### [place] [address] USAGFR/1.73 sq M.predicted MDRD (S/P/Bld) [Vol rate/Area] mL/min/{1.73_m2}NormalThe Critical Access Hospital Physician GroupComment on above:Performed By: #### MITOM2, L-K MICRO, ALPHA PHEN, HEMOCHROM, CERULOP, TENA, IGG, SMAB #### [facility] , #### PARVEEN, TSH3 #### [facility] [address] [place] [address] USACreatine kinase [Enzymatic activity/volume] in Serum or PlasmaOrdered By: Lewis Mirza on 00-19-7149AE [Catalytic activity/Vol]112 U/L Wgujet28-036RmxbhmdcyMetrohealth Parma Medical CenterComment on above:Result Comment: PERFORMED BY: [place] [address] PATHOLOGIST INDUSTRIAL GARAGE SERVICER LISA COOLEY M.D.Performed By: #### MITOM2, L-K MICRO, ALPHA PHEN, HEMOCHROM, CERULOP, TENA, IGG, SMAB #### [facility] , #### PARVEEN, TSH3 #### [place] [address] USACreatinine [Mass/volume] in Serum or PlasmaOrdered By: Lewis Mirza on 57-86-8673Nhbkzrzjxe [Mass/Vol]0.78 mg/dLNormal0.70-1.30 [facility] CenterComment on above:Performed By: #### MITOM2, L-K MICRO, ALPHA PHEN, HEMOCHROM, CERULOP, TENA, IGG, SMAB #### [facility] , #### PARVEEN, TSH3 #### [place] [address] USADNA double strand Ab [Units/volume] in SerumOrdered By: Lewis Mirza on 33-55-8450KVM double strand Ab Qn (S)3 [IU]/mL0-9[facility] CenterComment on above:Negative <5 Equivocal 5 - 9 Positive >9 Dipstick and Microscopicon 59-60-8513Wpniabtsga (U)ClearNormalClearThe Critical Access Hospital Physician GroupComment on above:Order Comment: Reason for Exam Elevated LFTs Reason for Exam FatiguePerformed By: #### MITOM2, L-K MICRO, ALPHA PHEN, HEMOCHROM, CERULOP, TENA, IGG, SMAB #### [facility] , #### PARVEEN, TSH3 #### [facility] [address] [place] [address] USABacteria,UrineNone SeenNormalNone SeenThe Critical Access Hospital Physician GroupComment on above:Order Comment: Reason for Exam Elevated LFTs Reason for Exam FatiguePerformed By: #### MITOM2, L-K MICRO, ALPHA PHEN, HEMOCHROM, CERULOP, TENA, IGG, SMAB #### [facility] , #### PARVEEN, TSH3 #### [place] [address] USABilirubin,UrineNegativeNormalNegativeSt. [facility]side Physician GroupComment on above:Order Comment: Reason for Exam Elevated LFTs Reason for Exam FatiguePerformed By: #### MITOM2, L-K MICRO, ALPHA PHEN, HEMOCHROM, CERULOP, TENA, IGG, SMAB #### [facility] , #### PARVEEN, TSH3 #### [place] [address] USAGlucose Ql (U)NormalNormalNormalThe Critical Access Hospital Physician GroupComment on above:Order Comment: Reason for Exam Elevated LFTs Reason for Exam FatiguePerformed By: #### MITOM2, L-K MICRO, ALPHA PHEN, HEMOCHROM, CERULOP, TENA, IGG, SMAB #### [facility] , #### PARVEEN, TSH3 #### [place] [address] USAHyaline Casts,UrineNone SeenNormal0-8The [facility] Hospital Physician GroupComment on above:Order Comment: Reason for Exam Elevated LFTs Reason for Exam FatigueResult Comment: PERFORMED BY: [place] [address] PATHOLOGIST INDUSTRIAL GARAGE SERVICER LISA COOLEY M.D.Performed By: #### MITOM2, L-K MICRO, ALPHA PHEN, HEMOCHROM, CERULOP, TENA, IGG, SMAB #### [facility] , #### PARVEEN, TSH3 #### [place] [address] USAKetones Ql (U)NegativeNormalNegativeSt. [facility] Physician GroupComment on above:Order Comment: Reason for Exam Elevated LFTs Reason for Exam FatiguePerformed By: #### MITOM2, L-K MICRO, ALPHA PHEN, HEMOCHROM, CERULOP, TENA, IGG, SMAB #### [facility] , #### PARVEEN, TSH3 #### [place] [address] USALeukocyte esterase Test strip Ql (U)NegativeNormalNegative The [facility] Access Hospital Physician GroupComment on above:Order Comment: Reason for Exam Elevated LFTs Reason for Exam FatiguePerformed By: #### MITOM2, L-K MICRO, ALPHA PHEN, HEMOCHROM, CERULOP, TENA, IGG, SMAB #### [facility] , #### PARVEEN, TSH3 #### [place] [address] USANitrite,UrineNegativeNormalNegativeSt. [facility] Physician GroupComment on above:Order Comment: Reason for Exam Elevated LFTs Reason for Exam FatiguePerformed By: #### MITOM2, L-K MICRO, ALPHA PHEN, HEMOCHROM, CERULOP, TENA, IGG, SMAB #### [facility] , #### PARVEEN, TSH3 #### [place] [address] USAOccult Blood,UrineNegativeNormalNegativeSt. [facility] Physician GroupComment on above:Order Comment: Reason for Exam Elevated LFTs Reason for Exam FatiguePerformed By: #### MITOM2, L-K MICRO, ALPHA PHEN, HEMOCHROM, CERULOP, TENA, IGG, SMAB #### [facility] , #### PARVEEN, TSH3 #### [facility] [address] [place] [address] USAProtein,UrineNegativeNormalNegativeSt. [facility] Physician GroupComment on above:Order Comment: Reason for Exam Elevated LFTs Reason for Exam FatiguePerformed By: #### MITOM2, L-K MICRO, ALPHA PHEN, HEMOCHROM, CERULOP, TENA, IGG, SMAB #### [facility] , #### PARVEEN, TSH3 #### [place] [address] USARBC,Nfkpb6-2Eslrby3-0P[facility] Physician GroupComment on above:Order Comment: Reason for Exam Elevated LFTs Reason for Exam FatiguePerformed By: #### MITOM2, L-K MICRO, ALPHA PHEN, HEMOCHROM, CERULOP, TENA, IGG, SMAB #### [facility] , #### PARVEEN, TSH3 #### [place] [address] USASpecificy [place],Urine1.889Iscrpj4.001-1.030The [facility] Access Hospital Physician GroupComment on above:Order Comment: Reason for Exam Elevated LFTs Reason for Exam FatiguePerformed By: #### MITOM2, L-K MICRO, ALPHA PHEN, HEMOCHROM, CERULOP, TENA, IGG, SMAB #### [facility] , #### PARVEEN, TSH3 #### [place] [address] USASquamous Epithelial Cell,UrineNone SeenNormal0-2The [facility] Hospital Physician GroupComment on above:Order Comment: Reason for Exam Elevated LFTs Reason for Exam FatiguePerformed By: #### MITOM2, L-K MICRO, ALPHA PHEN, HEMOCHROM, CERULOP, TENA, IGG, SMAB #### [facility] , #### PARVEEN, TSH3 #### [place] [address] USAUrobilinogen,UrineNormalNormalNormalThe Critical Access Hospital Physician GroupComment on above:Order Comment: Reason for Exam Elevated LFTs Reason for Exam FatiguePerformed By: #### MITOM2, L-K MICRO, ALPHA PHEN, HEMOCHROM, CERULOP, TENA, IGG, SMAB #### [facility] , #### PARVEEN, TSH3 #### [facility] [address] [place] [address] USAWBC,UrineNone SeenNormal0-4[facility] Comment on above:Order Comment: Reason for Exam Elevated LFTs Reason for Exam FatiguePerformed By: #### MITOM2, L-K MICRO, ALPHA PHEN, HEMOCHROM, CERULOP, TENA, IGG, SMAB #### [facility] , #### PARVEEN, TSH3 #### [facility] [address] [place] [address] USAErythrocyte Sedimentation Rateon 01-37-1578PML (Bld) [Velocity]14 mm/hNormal0-14The [facility] Access Hospital Physician GroupComment on above:Result Comment: PERFORMED BY: [place] [address] PATHOLOGIST INDUSTRIAL GARAGE SERVICER LISA COOLEY M.D.Performed By: #### MITOM2, L-K MICRO, ALPHA PHEN, HEMOCHROM, CERULOP, TENA, IGG, SMAB #### [facility] , #### PARVEEN, TSH3 #### [place] [address] USAErythrocyte distribution width [Ratio] by Automated count Ordered By: Lewis Mirza on 21-05-6634Hnduckexscj distribution width (RBC) [Ratio]13.0 %Loqkfu71.0-14.8[facility] CenterComment on above: Performed By: #### MITOM2, L-K MICRO, ALPHA PHEN, HEMOCHROM, CERULOP, TENA, IGG, SMAB #### [facility] , #### PARVEEN, TSH3 #### [place] [address] USAErythrocyte sedimentation rate by Photometric method Ordered By: Lewis Mirza on 66-47-7093IJM Photometric method (Bld) [Velocity] 14 mm/hr0-14[facility] Medical CenterErythrocytes [#/volume] in Blood by Automated countOrdered By: Lewis Mirza on 14-26-0803LOI (Bld) [#/Vol]4.85 10*6/uLNormal3.90-5.60[facility] CenterComment on above: Performed By: #### MITOM2, L-K MICRO, ALPHA PHEN, HEMOCHROM, CERULOP, TENA, IGG, SMAB #### [facility] , #### PARVEEN, TSH3 #### [place] [address] USAFibrillarin Ab [Presence] in SerumOrdered By: Lewis Mirza on 19-69-4582Fmdzuzphbvs Ab Ql (S)NegativeNegativeMetrohealth Parma Medical CenterComment on above:This test was developed and its performance characteristicsdetermined by [facility]. It has not been cleared orapproved by the Food and Drug Administration.Performed at: [facility] [address] [id number] Director: Issa Thao MD, Phone: [phone] [Mass/volume] in Serum or PlasmaOrdered By: Lewis Mirza on 53-07-2184Stlqwah [Mass/Vol]98 mg/rCSxuuqt35-748ZpnkfxbvfMetrohealth Parma Medical CenterComment on above:ADA recommended reference rangeRandom [...] #### [facility] , #### PARVEEN, TSH3 #### [facility] [address] [place] [address] USAHematocrit [Volume Fraction] of Blood by Automated count Ordered By: Lewis Mirza on 27-60-1974Gqlafeitis (Bld) [Volume fraction]41.7 % Rbzakc54.8-50.0[facility] CenterComment on above:Performed By: #### MITOM2, L-K MICRO, ALPHA PHEN, HEMOCHROM, CERULOP, TENA, IGG, SMAB #### [facility] , #### PARVEEN, TSH3 #### [facility] [address] [place] [address] USAHemoglobin [Mass/volume] in BloodOrdered By: Lewis Mirza on 67-52-2987Boldmifrqr (Bld) [Mass/Vol]14.2 g/uRLhiqpj54.0-17.0 [facility] CenterComment on above:Performed By: #### MITOM2, L-K MICRO, ALPHA PHEN, HEMOCHROM, CERULOP, TENA, IGG, SMAB #### [facility] , #### PARVEEN, TSH3 #### [facility] [address] [place] [address] USAKetones Auto test strip (U) [Mass/Vol]Ordered By: Lewis Mirza on 76-15-9575Ulbcenw (U) [Mass/Vol]NegativeNegativeMetrohealth Parma Medical CenterLaboratory - Serology - non-microOrdered By: Lewis Mirza on 35-71-8080QIP-70 extractable nuclear Ab IA Qn (S)<0.2 AI0.0-0.9[facility] CenterLaboratory - UrinalysisOrdered By: Lewis Mirza on 20-80-4854Llcwwyr casts LM Ql (Urine sed)None seen [LPF]0-8[facility] Medical CenterLeukocytes [#/volume] corrected for nucleated erythrocytes in Blood by Automated counOrdered By: Lewis Mirza on 23-89-0554CMS corrected for nucl RBC Auto (Bld) [#/Vol]6.4 10*3/uL4.1-10.5FBlanchard Valley Health System [facility] Leukocytes [#/volume] in Blood by Automated countOrdered By: Lewis Mirza on 64-93-1112FJF (Bld) [#/Vol]6.4 10*3/uLNormal4.1-10.5FBlanchard Valley Health System Bluffton HospitalComment on above:Performed By: #### MITOM2, L-K MICRO, ALPHA PHEN, HEMOCHROM, CERULOP, TENA, IGG, SMAB #### [facility] , #### PARVEEN, TSH3 #### [facility] [address] [place] [address] USALymphocytes [#/volume] in Blood by Automated countOrdered By: Lewis Mirza on [id number] (Bld) [#/Vol]2.1 10*3/uLNormal 1.00-4.8[facility] CenterComment on above:Performed By: #### MITOM2, L-K MICRO, ALPHA PHEN, HEMOCHROM, CERULOP, TENA, IGG, SMAB #### [facility] , #### PARVEEN, TSH3 #### [place] [address] USALymphocytes/100 leukocytes in Blood by Automated count Ordered By: Lewis Mirza on [id number]/100 WBC (Bld)32.5 %Normal. [facility] CenterComment on above:Performed By: #### MITOM2, L-K MICRO, ALPHA PHEN, HEMOCHROM, CERULOP, TENA, IGG, SMAB #### [facility] , #### PARVEEN, TSH3 #### [address] [Entitic mass] by Automated countOrdered By: Lewis Mirza on [id number] (RBC) [Entitic mass]29.3 ulAxiwxa91.5-35.2FBlanchard Valley Health System Bluffton HospitalComment on above:Performed By: #### MITOM2, L-K MICRO, ALPHA PHEN, HEMOCHROM, CERULOP, TENA, IGG, SMAB #### [facility] , #### PARVEEN, TSH3 #### [address] Auto (RBC) [Mass/Vol]Ordered By: Lewis Mirza on [id number] (RBC) [Mass/Vol]34.1 g/dL32.5-35.6FBarney Children's Medical CenterV [Entitic volume] by Automated countOrdered By: Lewis Mirza on [id number] (RBC) [Entitic vol]86.0 xXFfdnnz82.5-101Metrohealth Parma Medical CenterComment on above:Performed By: #### MITOM2, L-K MICRO, ALPHA PHEN, HEMOCHROM, CERULOP, TENA, IGG, SMAB #### [facility] , #### PARVEEN, TSH3 #### [facility] [address] [place] [address] USANeutrophils [#/volume] in Blood by Automated countOrdered By: Lewis Mirza on 68-43-1813Edwgnqalhiu (Bld) [#/Vol]3.4 10*3/uLNormal 1.8-7.7FBlanchard Valley Health System Bluffton HospitalComment on above:Performed By: #### MITOM2, L-K MICRO, ALPHA PHEN, HEMOCHROM, CERULOP, TENA, IGG, SMAB #### [facility] , #### PARVEEN, TSH3 #### [place] [address] USANitrite Test strip Ql (U)Ordered By: Lewis Mirza on 51-93-4522Drpsunp Ql (U)NegativeNegativeMetrohealth Parma Medical CenterNo Panel InformationOrdered By: Lewis Mirza on 93-04-5565Dczxfemzs GFR (CKD-EPI) > 60.0 mL/MinMetrohealth Parma Medical CenterPharmacy Creatinine Clearance ([facility] TrumbullRNP Antibody0.6 AI0.0-0.9[facility]ina Hospitalerology CommentsN/[facility] Total Complement (CH50)49 U/mL>41Met[facility] Parma Medical CenterComment on above:Age Male Female 1 [...] out of range values.Performed at: - [facility] [address] [id number] Director: Zechariah Paula PhD, Phone: [phone] erythrocytes [Presence] in Blood by Automated countOrdered By: Lewis Mirza on 31-51-1874Qofeydfjg RBC Auto Ql (Bld)0.2 /100{WBC}0-0.5FBlanchard Valley Health System Bluffton HospitalPM-SCL Antibodieson 46-71-4934HVQ PM-Scl Antibody<20Normal<20The [facility] Access Hospital Physician GroupComment on above:Result Comment: This test was developed and its performance characteristics determined by [facility]. It has not been cleared or approved by the Food and Drug Administration. Negative: <20 Weak Positive: 20 - 39 Moderate Positive: 40 - 80 Strong Positive: >80 Performed at: [facility] [address] [place], [place] [id number] Footwear Sales Leader: Issa Thao MD, Phone: [phone] By: #### MITOM2, L-K MICRO, ALPHA PHEN, HEMOCHROM, CERULOP, TENA, IGG, SMAB #### [facility] , #### PARVEEN, TSH3 #### [place] [address] USAPM-Scl antibody assay by immunodiffusionOrdered By: Lewis Mirza on 17-11-0649PT-SCL extractable nuclear Ab Immune diff (S) [Mass/Vol] <20 Units<20[facility] Parma Medical CenterComment on above:This test was developed and its performance characteristicsdetermined by [facility]. It has not been cleared orapproved by the Food and Drug Administration. Negative: <20 Weak Positive: 20 - 39 Moderate Positive: 40 - 80 Strong Positive: >80Performed at: [facility] [address] [place], [place] [id number] Director: Issa Thao MD, Phone: [phone] mean volume [Entitic volume] in Blood by Automated countOrdered By: Lewis Mirza on 05-19-2023 Platelet mean volume (Bld) [Entitic vol]9.2 fLNormal6.6-10.1FBlanchard Valley Health System Bluffton HospitalComment on above:Performed By: #### MITOM2, L-K MICRO, ALPHA PHEN, HEMOCHROM, CERULOP, TENA, IGG, SMAB #### [facility] , #### PARVEEN, TSH3 #### [facility] [address] [place] [address] USAPlatelets [#/volume] in Blood by Automated countOrdered By: Lewis Mirza on 50-69-7618Caeckjduo (Bld) [#/Vol]254 10*3/oLVrydyx187-087 [facility] Medical CenterComment on above:Performed By: #### MITOM2, L-K MICRO, ALPHA PHEN, HEMOCHROM, CERULOP, TENA, IGG, SMAB #### [facility] , #### PARVEEN, TSH3 #### [facility] [address] [place] [address] USAPotassium [Moles/volume] in Serum or PlasmaOrdered By: Lewis Mirza on 05-39-1688Unnyllxok [Moles/Vol]3.8 mmol/LNormal3.5-5.1 [facility] Medical CenterComment on above:Performed By: #### MITOM2, L-K MICRO, ALPHA PHEN, HEMOCHROM, CERULOP, TENA, IGG, SMAB #### [facility] , #### PARVEEN, TSH3 #### [place] [address] USAProtein Auto test strip (U) [Mass/Vol]Ordered By: Lewis Mirza on 01-53-0908Epzdqza (U) [Mass/Vol]NegativeNegativeMetrohealth Parma Medical CenterProtein [Mass/volume] in Serum or PlasmaOrdered By: Lewis Mirza on 71-37-0063Gujrhwm [Mass/Vol]7.1 g/dLNormal6.4-8.9Met[facility]ma Medical CenterComment on above:Performed By: #### MITOM2, L-K MICRO, ALPHA PHEN, HEMOCHROM, CERULOP, TENA, IGG, SMAB #### [facility] , #### PARVEEN, TSH3 #### [place] [address] USARNA Polymerase IIion 86-06-1606LEG Polymerase IIi<20Normal <20The Critical Access Hospital Physician GroupComment on above:Result Comment: Negative: <20 Weak Positive: 20 - 39 Moderate Positive: 40 - 80 Strong Positive: >80 Performed at: [employer] [address] [place], [place] [id number] Footwear Sales Leader: Issa Thao MD, Phone: [phone] PERFORMED BY: [place] [address] PATHOLOGIST INDUSTRIAL GARAGE SERVICER LISA COOLEY M.D.Performed By: #### MITOM2, L-K MICRO, ALPHA PHEN, HEMOCHROM, CERULOP, TENA, IGG, SMAB #### [facility] , #### PARVEEN, TSH3 #### [place] [address] USARNA polymerase III IgG Ab [Units/volume] in Serum or Plasma by ImmunoassayOrdered By: Lewis Mirza on 18-60-5022QDT polymerase III IgG IA Qn<20 Units<20[facility] Parma Medical CenterComment on above:Negative: <20 Weak Positive: 20 - 39 Moderate Positive: 40 - 80 Strong Positive: >80Performedat: [facility] [address] [place], [place] [id number] Director: Issa Thao MD, Phone: [phone] 70 Antibodieson 12-09-2846Zvnniudaftb 70 Antibodies<0.2Xkvmpv7.0-0.9The [facility] Physician [facility] CenterComment on above:Performed By: #### MITOM2, L-K MICRO, ALPHA PHEN, HEMOCHROM, CERULOP, TENA, IGG, SMAB #### [facility] , #### PARVEEN, TSH3 #### [facility] [address] [place] [address] USASerum Newberry extractable nuclear antigen (ANDREE) antibody assay (units/volume)Ordered By: Lewis Mirza on 41-68-2645Fchxw extractable nuclear Ab Qn (S)<0.2 AI0.0-0.9C[facility] Clinic Medina Hospitalerum centromere protein B antibody assay (units/volume)Ordered By: Lewis Mirza on 05-19-2023 Centromere protein B Ab Qn (S)<0.2 AI0.0-0.9[facility] Comment on above:Performed at: [facility] Lab[address] [id number] Director: Zechairah Paula PhD, Phone: [phone] globulin measurement by calculation (mass/volume)Ordered By: Lewis Mirza on 05-19-2023 Globulin (S) [Mass/Vol]2.7 g/dLNormalMetrohealth Parma Medical CenterComment on above:Performed By: #### MITOM2, L-K MICRO, ALPHA PHEN, HEMOCHROM, CERULOP, TENA, IGG, SMAB #### [facility] , #### PARVEEN, TSH3 #### [facility] [address] [place] [address] USASerum or plasma albumin/globulin mass ratioOrdered By: Lewis Mirza on 72-85-9745Zmpyjvc/Globulin [Mass ratio]1.6 {ratio}Normal [facility] Medical CenterComment on above:Performed By: #### MITOM2, L-K MICRO, ALPHA PHEN, HEMOCHROM, CERULOP, TENA, IGG, SMAB #### [facility] , #### PARVEEN, TSH3 #### [facility] [address] [place], [place] [address] USASerum or plasma anion gap determinationOrdered By: Lewis Mirza on 69-15-9607Llven gap [Moles/Vol]14.3 mmol/LNormal6.0-15.0[facility] Medical CenterComment on above:Performed By: #### MITOM2, L-K MICRO, ALPHA PHEN, HEMOCHROM, CERULOP, TENA, IGG, SMAB #### [facility] , #### PARVEEN, TSH3 #### [facility] [address] [place] [address] USASerum or plasma complement C3 measurement (mass/volume) Ordered By: Lewis Mirza on 94-62-9792Lzgujdaibg C3 [Mass/Vol]161 mg/jD41-113 [facility] Medical CenterComment on above:Performed at: [facility] LabRobert Ville [id number] [place], [place] [id number] Director: Zechariah Paula PhD, Phone: [phone] or plasma complement C4 measurement (mass/volume)Ordered By: Lewis Mirza on 88-90-6618Eaympuxtsh C4 [Mass/Vol]24 mg/hG82-55JtxhmwxoiCleveland Clinic Medina Hospitalodium [Moles/volume] in Serum or PlasmaOrdered By: Lewis Mirza on 14-15-9327Reybat [Moles/Vol]141 mmol/OWrxkey020-787KbfxqzhkcMetrohealth Parma Medical CenterComment on above:Performed By: #### MITOM2, L-K MICRO, ALPHA PHEN, HEMOCHROM, CERULOP, TENA, IGG, SMAB #### [facility] , #### PARVEEN, TSH3 #### [facility] [address] [place] [address] USASpecific gravity Auto test strip (U) [Rel density]Ordered By: Lewis Mirza on 45-17-3698Uezrlwje gravity (U) [Rel density]1.023 1.001-1.030C[facility] Clinic Medina Hospitalquamous epithelial cells detection in urine sediment by light microscopyOrdered By: Lewis Mirza on 05-19-2023 Epithelial cells.squamous LM Ql (Urine sed)None seen [HPF]0-2FBlanchard Valley Health System Bluffton HospitalTh-To Ab [Units/volume] in Serum by Line blotOrdered By: Lewis Mirza on 00-91-7844Av-To Ab Line blot Qn (S)NegativeNegativeMetrohealth Parma Medical CenterComment on above:This test was developed and its performance characteristicsdetermined by [employer]. It has not been cleared orapproved by the Food and Drug Administration.Performed at: [facility] [address] [place], [place] [id number] Director: Issa Thao MD, Phone: [phone]/To Antibodyon 17-40-9277Cd/To AntibodyNegativeNormalNegativeThe Critical Access Hospital Physician GroupComment on above:Result Comment: This test was developed and its performance characteristics determined by [facility]. It has not been cleared or approved by the Food and Drug Administration. Performed at: [facility] [address] [place], [place] [id number] Footwear Sales Leader: Issa Thao MD, Phone: [phone] By: #### MITOM2, L-K MICRO, ALPHA PHEN, HEMOCHROM, CERULOP, TENA, IGG, SMAB #### [facility] , #### PARVEEN, TSH3 #### [facility] [address] [place] [address] USAThyrotropin [Units/volume] in Serum or PlasmaOrdered By: Lewis Mirza on 24-13-4530NWV Qn1.01 m[IU]/LNormal0.45-5.33[facility]ma Medical CenterComment on above:Result Comment: PERFORMED BY: [place] [address] PATHOLOGIST INDUSTRIAL GARAGE SERVICER LISA COOLEY M.D.Performed By: #### MITOM2, L-K MICRO, ALPHA PHEN, HEMOCHROM, CERULOP, TENA, IGG, SMAB #### [facility] , #### PARVEEN, TSH3 #### [facility] [address] [place] [address] USAU3 Rnpon 42-09-4571Z4 RnpNegativeNormalNegativeThe Critical Access Hospital Physician GroupComment on above:Result Comment: This test was developed and its performance characteristics determined by [facility]. It has not been cleared or approved by the Food and Drug Administration. Performed at: [facility] [address] [place] [id number] Footwear Sales Leader: Issa Thao MD, Phone: [phone] PERFORMED BY: [place] [address] PATHOLOGIST INDUSTRIAL GARAGE SERVICER LISA COOLEY M.D.Performed By: #### MITOM2, L-K MICRO, ALPHA PHEN, HEMOCHROM, CERULOP, TENA, IGG, SMAB #### [facility] , #### PARVEEN, TSH3 #### [facility] [address] [place] [address] USAUrea nitrogen [Mass/volume] in Serum or PlasmaOrdered By: Lewis Mirza on 77-15-2349Rflr nitrogen [Mass/Vol]10 mg/dLNoal7-25[facility] Medical CenterComment on above:Performed By: #### MITOM2, L-K MICRO, ALPHA PHEN, HEMOCHROM, CERULOP, TENA, IGG, SMAB #### [facility] , #### PARVEEN, TSH3 #### [facility] [address] [place] [address] USAUrine bacteria detection by automated methodOrdered By: Lewis Mirza on 52-67-6925Mdbxgutv Auto Ql (U)None seenFlagstaff Medical Centere SCCI Hospital LimaUrine clarity by refractometry automatedOrdered By: Lewis Mirza on 31-19-7249Dsujhhn Refractometry automated (U)ClearClear [facility] Medical CenterUrine glucose measurement by automated test strip (mass/volume)Ordered By: Lewis Mirza on 33-34-2492Sseyrtb Auto test strip (U) [Mass/Vol]Normal mg/dLUniversity Hospitals Samaritan Medical CenterUrine hemoglobin detection by automated test stripOrdered By: Lewis Mirza on 42-50-5464Pgcbsfxqky Auto test strip Ql (U)NegativeNegSumma Health Barberton CampusUrine leukocyte esterase detection by automated test stripOrdered By: Lewis Mirza on 89-98-2546Yhvbjkwiz esterase Auto test strip Ql (U) NegativeNegSumma Health Barberton CampusUrine pH measurement by automated test stripOrdered By: Lewis Mirza on 56-80-2692gC (U)5.5 [pH]Normal 5.0-9.0[facility] Medical CenterComment on above:Order Comment: Reason for Exam Elevated LFTs Reason for Exam FatiguePerformed By: #### MITOM2, L-K MICRO, ALPHA PHEN, HEMOCHROM, CERULOP, TENA, IGG, SMAB #### [facility] , #### PARVEEN, TSH3 #### [facility] [address] [place] [address] USAUrobilinogen Auto test strip (U) [Mass/Vol]Ordered By: Lewis Mirza on 71-73-0154Gtmwmifxzpkr (U) [Mass/Vol]Normal mg/dLNormal [facility] CenterXR knee BI 2Von 25-84-8704JB knee BI 2V [facility] [place] [address] [place] [address] XRay Report Signed Patient: Jet Duncan MR#: [id number] 0 : 2005 Acct:[id number] Age/Sex: 17 / M ADM Date: 05/19/23 Loc: ICXD [facility] Dr: Lewis Mirza MD Copies to: Lewis Mirza MD Ordering Provider: Lewis Mirza MD Date of Service: 05/19/23 XR/XR knee BI 2V: PAIN ([id number]) XR/XR thoracic spine 3V*: PAIN THORACIC SPINE [...] Davila Jr., D.O.05/19/2023 2:25 PM Dictation Location: [place] [address] Transcribed By: [facility] 05/19/23 1425 Dictated By: Ki Davila Jr, DO 05/19/231423 Signed By: 05/19/23 [facility]LethaSt[facility] Physician GroupMiscellaneous 04-30-2023 [id number]#1.00OTGTIFFNoCleveland Clinic Marymount HospitalOutside Recordson 00-87-4728Zajxbcx Records [id number]#1.00GTTriHealth Antinuclear Antibodieson 54-15-9474Lwywmduaqpj Abs, IFAPositiveCritically abnormal.The Critical Access Hospital Physician GroupComment on above:Order Comment: Reason for Exam Elevated LFTsResult Comment: Negative <1:80 Borderline 1:80 Positive >1:80Performed By: #### MITOM2, L-K MICRO, ALPHA PHEN, HEMOCHROM, CERULOP, TENA, IGG, SMAB #### [facility] , #### PARVEEN, TSH3 #### [facility] [address] [place] [address] USAHomogeneous Pattern1:160High.[facility] Comment on above:Order Comment: Reason for Exam Elevated LFTsResult Comment: ICAP nomenclature: AC-1Performed By: #### MITOM2, L-K MICRO, ALPHA PHEN, HEMOCHROM, CERULOP, TENA, IGG, SMAB #### [facility] , #### PARVEEN, TSH3 #### [facility] [address] [place] [id number] USANote 1Normal.The Critical Access Hospital Physician GroupComment on above:Order Comment: Reason for Exam Elevated LFTsResult Comment: Pattern Potential Disease Association Homogeneous Systemic Lupus Erythematosus, Drug Induced Systemic Lupus Erythematosus, Chronic Autoimmune hepatitis, Juvenile Idiopathic Arthritis Speckled Sjogren Syndrome, Systemic Lupus Erythematosus, Subacute Cutaneous Lupus, Lupus, Congenital Heart Block, Mixed Connective Tissue Disease, Scleroderma-diffuse, Scleroderma-Autoimmune Myositis Overlap Syndrome, Systemic Lupus Whggxgzicwuzq-Frwexdipykn-Cwnjqdrkkf Myositis Overlap Syndrome, Systemic Autoimmune Rheumatic Disease, [...] Scleroderma, Antiphospholipid Syndrome Performed at: - [facility] [address] [id number] Footwear Sales Leader: Zechariah Paula PhD, Phone: [phone] By: #### MITOM2, L-K MICRO, ALPHA PHEN, HEMOCHROM, CERULOP, TENA, IGG, SMAB #### [facility] , #### PARVEEN, TSH3 #### [facility] [address] [place] [address] USAActin smooth muscle IgG Ab [Units/volume] in SerumOrdered By: Imad Asaad on 87-80-1653Sfksw smooth muscle IgG Qn (S)13 Units0-19[facility] Medical CenterComment on above:Negative 0 - 19 Weak positive 20 - 30 Moderate to strong positive >30 Actin Antibodies are foundin 52-85% of patients with autoimmune hepatitis or chronic active hepatitis and in 22% of patients w ith primary biliary cirrhosis.Bvnil-5-Xaehaykxqnr Phenotypeon 25-15-9925Lzyzz 1 Anti-Snkgbcd297 mg/cVVxotbc69-029Dea Critical Access Hospital Physician GroupComment on above: Order Comment: Reason for Exam Elevated LFTsPerformed By: #### MITOM2, L-K MICRO, ALPHA PHEN, HEMOCHROM, CERULOP, TENA, IGG, SMAB #### [facility] , #### PARVEEN, TSH3 #### [facility] [address] [place] [address] USAPhenotype (P1)MMNormal.[facility] Comment on above:Order Comment: Reason [...] Ranges used to confirm phenotype. Performed at: [facility] [id number] Footwear Sales Leader: Zechariah Paula PhD, Phone: [phone] Performed at: [facility] [id number] Footwear Sales Leader: Aston Omalley MD, Phone: [phone] By: #### MITOM2, L- K MICRO, ALPHA PHEN, HEMOCHROM, CERULOP, TENA, IGG, SMAB #### [facility] , #### PARVEEN, TSH3 #### [place] [address] USABlood or tissue HFE gene mutations identification by molecular genetics methodOrdered By: Wilver Felton on 93-74-7377MHH gene targeted mutation analysis Molgen Nom (Bld/Tiss)See comment.[facility] Medical CenterComment on above:Result:c.845G>A (p.Uak348Stf) - Not Detectedc.187C>G (p.Why31Ptg) - Not Detectedc.193A>T (p.Oli30Afg) - Not DetectedNot associated with increased risk [...] recommended for patientswho are homozygous for c.845G>A (p.Ffh859Uib) and have yetto experience clinical symptoms.Comments:The most common HFE variants associated with hereditaryhemochromatosis are c.845G>A (p.Pdj758Fyc), c.187C>G(p.Fud62Tgh), c.193A>T (p.Hdk97Nij). While patientshomozygous for c.845G>A (p.Dub538Kcr) are the most likelyto present clinical symptoms, less than 10% developclinically significant iron overload with tissue and organdamage.Genetic counseling is recommended to discuss the potentialclinical implications of positive results, as well asrecommendations for testing family members.Genetic Coordinators are available for health careproviders to discuss results at [phone] Details:Three variants analyzed:c.845G>A (p.Jgi365Zbm), commonly referred to as C282Yc.187C>G (p.Plv43Utb), commonly referred to as H63Dc.193A>T (p.Eay13Bgr), commonly referred to syP79OLqndsql/Limitations:DNA Analysis of the HFE gene (NM_000410.4) was [...] was developed and its performancecharacteristics determined by [employer] It has not beencleared or approved by the Food and Drug Administration.References:Paul BR, Joseph PC, Mohini KV, Christiano LW, Erick ;[place] Association for the Study of Liver Diseases.Diagnosis and management of hemochromatosis: 2011 practiceguideline by the [place] Association for the Study ofLiver Diseases. Hepatology. 2010;54(1):328-43. doi:10.1002/hep.80409. PMID: 88414542; PMCID: [id number].Surekha G, Shorty P, Hailey DW, Tor H, Corrine O,Simón S, Guerrero I, Alireza M, Holly S. [facility]ITALN best practiceguidelines for the molecular genetic diagnosis ofhereditary hemochromatosis (HH). Eur J Hum Meliza. 2016Ap r;24(4):479-95. doi: 10.1038/ejhg.2015.128. Epub 2014. PMID: 78752935; PMCID: [id number].Ceruloplasminon 98-52-6283Ewfzevidlylzk91.7 mg/dLNormal 16.0-31.0The Critical Access Hospital Physician GroupComment on above:Order Comment: Reason for Exam Elevated LFTsResult Comment: Performed at: - [facility] [id number] Footwear Sales Leader: Zechariah Paula PhD, Phone: [phone] PERFORMED BY: [place] [address] PATHOLOGIST INDUSTRIAL GARAGE SERVICER LISA COOLEY M.D.Performed By: #### MITOM2, L-K MICRO, ALPHA PHEN, HEMOCHROM, CERULOP, TENA, IGG, SMAB #### [facility] , #### PARVEEN, TSH3 #### [facility] [address] [place] [address] USAFerritin [Mass/volume] in Serum or PlasmaOrdered By: Wilver Felton on 76-66-6623Wfjvuizt [Mass/Vol]59.0 ng/hABnpgbq41.9-336.2FBlanchard Valley Health System Bluffton HospitalComment on above:Order Comment: Reason for Exam Elevated LFTs Reason for Exam FatiguePerformed By: #### MITOM2, L-K MICRO, ALPHA PHEN, HEMOCHROM, CERULOP, TENA, IGG, SMAB #### [facility] , #### PARVEEN, TSH3 #### [facility] [address] [place], [place] [address] USAHereditary Hemochromatosis,DNAon 24-58-2901Hizhnxwtxn HemochromatosisNormal.The Critical Access Hospital Physician GroupComment on above:Order Comment: Reason for Exam Elevated LFTsResult Comment: Result: c.845G>A (p.Plc164Nur) - Not Detected c.187C>G (p.Ddy79Hyy) - Not Detected c.193A>T (p.Tjf88Nfg) - Not Detected Not associated with increased [...] for patients who are homozygous for c.845G>A (p.Rfh172Ess) and have yet to experience clinical symptoms. Comments: The most common HFE variants associated with hereditary hemochromatosis are c.845G>A (p.Gvs199Jed), c.187C>G (p.Arc12Lqi), c.193A>T (p.Yox63Pjh). While patients homozygous for c.845G>A (p.Gsq446Ssw) are the most likely to present clinical symptoms, less than 10% develop clinically significant iron overload with tissue and organ damage. Genetic counseling is recommended to discuss the potential clinical implications of positive results, as well as recommendations for testing family members. Genetic Coordinators are available for health care providers to discuss results at [phone] Test Details: Three variants analyzed: c.845G>A (p.Tyi974Kgb), commonly referred to as C282Y c.187C>G (p.Fmj79Vdr), commonly referred to as H63D c.193A>T (p.Aug03Naw), commonly referred to as S65C Methods/Limitations: DNA [...] developed and its performance characteristics determined by [employer]). It has not been cleared or approved by the Food and Drug Administration. References: Paul BR, Joseph PC, Mohini KV, Christiano LW, Erick ; [place] [employer] for the Study of Liver Diseases. Diagnosis and management of hemochromatosis: 2011 practice guideline by the [place] [employer] for the Study of Liver Diseases. Hepatology. 2010;54(1):328-43. doi: 10.1002/hep.65580. PMID: 34525009; PMCID: [id number]. Surekha G, Shorty P, Hailey HENDERSON, Tor H, Corrine O, Simón S, Guerrero I, Alireza M, Holly S. QN best practice guidelines for the molecular genetic diagnosis of hereditary hemochromatosis (HH). Eur J Hum Meliza. 2016 Aug;24(4):479-95. doi: 10.1038/ejhg.2015.128. Epub 2014Nov 15. PMID: 88231337; PMCID: [id number].Performed By: #### MITOM2, L-K MICRO, ALPHA PHEN, HEMOCHROM, CERULOP, TENA, IGG, SMAB #### [facility] , #### PARVEEN, TSH3 #### [place] [address] USAReviewed by:Normal.The Critical Access Hospital Physician GroupComment on above:Order Comment: Reason for Exam Elevated LFTsResult Comment: Technical Component performed at [facility] Professional Component performed by: Daniella Birch, Ph.D., [facility] Director, Molecular Genetics [address] [place] [address] [facility] [address] Performed at: - [facility] [address] [place], [place] [id number] Footwear Sales Leader: Dinesh Davis [facility], Phone: [phone] PERFORMED BY: [place] [address] PATHOLOGIST INDUSTRIAL GARAGE SERVICER LISA COOLEY M.D.Performed By: #### MITOM2, L-K MICRO, ALPHA PHEN, HEMOCHROM, CERULOP, TENA, IGG, SMAB #### [facility] , #### PARVEEN, TSH3 #### [facility] [address] [place] [address] USAIgG [Mass/volume] in Serum or PlasmaOrdered By: Wilver Felton on 26-81-4744YfD [Mass/Vol]1272 mg/jY115-1499MethtebfkMetrohealth Parma Medical Center Comment on above:Performed at: [facility] [id number] Director: Zechariah Paula PhD, Phone: [phone] G on 92-03-1892Pfdvaeoonzztqv G1272 mg/pZMxjtjm107-9643Pxw Critical Access Hospital Physician GroupComment on above:Order Comment: Reason for Exam Elevated LFTsResult Comment: Performed at: [address] [id number] Footwear Sales Leader: Zechariah Paula PhD, Phone: [phone] By: #### MITOM2, L-K MICRO, ALPHA PHEN, HEMOCHROM, CERULOP, TENA, IGG, SMAB #### [facility] , #### PARVEEN, TSH3 #### [facility] [address] [place] [address] USALiver-Kidney Microsomal Abon 87-91-5982Qxcke-Kidney Microsomal Ab1.2Xdcxnk4.0-20.0The Critical Access Hospital Physician GroupComment on above: Order Comment: Reason for Exam Elevated LFTsResult Comment: Negative 0.0 - 20.0 Equivocal 20.1 - 24.9 Positive >24.9 LKM type 1 antibodies are detected in patients with autoimmune hepatitis type 2 and in up to 8% of patients with chronic HCV infection. Performed at: [facility] [id number] Footwear Sales Leader: Zechariah Paula PhD, Phone: [phone] By: #### MITOM2, L-K MICRO, ALPHA PHEN, HEMOCHROM, CERULOP, TENA, IGG, SMAB #### [facility] , #### PARVEEN, TSH3 #### [facility] [address] [place] [address] USAMitochondrial (M2) Antibodyon 02-41-8353Dykyuykwbqlvs (M2) Antibody<20.2Gyyutd3.0-20.0The [facility] Access Hospital Physician GroupComment on above:Order Comment: Reason for Exam Elevated LFTsResult Comment: Negative 0.0 - 20.0 Equivocal 20.1 - 24.9 Positive >24.9 Mitochondrial (M2) Antibodies are found in 90-96% of patients with primary biliary cirrhosis.Performed By: #### MITOM2, L-K MICRO, ALPHA PHEN, HEMOCHROM, CERULOP, TENA, IGG, SMAB #### [facility] , #### PARVEEN, TSH3 #### [place] [address] [place] Panel InformationOrdered By: Wilver Felton on 04-21-2023 Anti-Nuclear Antibody Comment 2See comment.[facility] Comment on above:Pattern Potential Disease Association Homogeneous Systemic Lupus Erythematosus, Drug Induced Systemic Lupus Erythematosus, Chronic Autoimmune hepatitis, Juvenile Idiopathic Arthritis Speckled Sjogren Syndrome, Systemic Lupus Erythematosus, Subacute Cutaneous Lupus, Lupus, Congenital Heart Block, Mixed Connective Tissue Disease, Scleroderma-diffuse, Scleroderma- Autoimmune Myositis Overlap Syndrome, Systemic Lupus Qwjusmjhpeiuw-Zusiqgihtry-Jmqmfhzpik Myositis Overlap Syndrome, Systemic Autoimmune Rheumatic Disease, [...] Linear Scleroderma, Antiphospholipid Syndrome Performed at: - [facility] [address] [id number] Director: Zechariah Paula PhD, Phone: [phone] NoteSee comment.[facility] CenterComment on above:Technical Component performed at [facility]) RTPProfessional Component performed by:Daniella Birch, Ph.D., FACMGDirector, Molecular Yasokwoz4[address] [facility] [place] [address]Chyyigecs at: - [facility]) [id number] [facility], [facility], [place] [id number] Director: Dinesh Davis [facility], Phone: [phone] sjwuy-1-vgslaptmmuf measurementOrdered By: Wilver Felton on 77-71-4494Xgryk 1 antitrypsin [Mass/Vol]139 mg/uG75-007AzsisfvlbCleveland Clinic Medina Hospitalerum homogeneous pattern antinuclear antibody (TENA) titerOrdered By: Imariana Asaad on 94-79-9133Uhiihbabcn nuclear Ab pattern (S) [Titer]1:160. [facility] CenterComment on above:ICAP nomenclature: AC-1Serum mitochondria M2 IgG antibody assay (units/volume)Ordered By: Imad Asaad on 97-04-0622Tzaoiikagmmb M2 IgG Qn (S)<20.0 Units0.0-20.0[facility] CenterComment on above:Negative 0.0 - 20.0 Equivocal 20.1 - 24.9 Positive >24.9Mitochondrial (M2) Antibodies are found in 90-96% ofpatients with primary biliary cirrhosis.Serum nuclear antibody titerOrdered By: Imad Asa on 55-09-6205Hrggaac Ab (S) [Titer]Positive.[facility] Comment on above:Negative <1:80 Borderline 1:80 Positive >1:80Serum or plasma alpha 1 antitrypsin phenotyping identification by immunofixationOrdered By: [facility] on 50-79-1293Cyjar 1 antitrypsin phenotyping Immunofixation NomMm. [facility] CenterComment on above:Phenotype Population A-1-AT Concentration* [...] reference. Ranges used to confirm phenotype.Performed at: [address] [id number] Director: Zechariah Paula PhD, Phone: [phone] at: [id number] Director: Aston Omalley MD, Phone: [phone] or plasma ceruloplasmin measurement (mass/volume)Ordered By: Wilver Felton on 65-89-7198Jsbmblxhqmedz [Mass/Vol]23.7 mg/dL16.0-31.0[facility] CenterComment on above:Performed at: [facility] [place] [id number] Director: Zechariah Paula PhD, Phone: [phone] or plasma lipoprotein a measurement (moles/volume)Ordered By: Wilver Felton on 13-34-2900Lhxwoyaifcw a [Moles/Vol]1.5 Units0.0-20.0[facility] CenterComment on above:Negative 0.0 - 20.0 Equivocal 20.1 - 24.9 Positive >24.9LKM type 1 antibodies are detected in patients withautoimmune hepatitis type 2 and in up to 8% ofpatients with chronic HCV infection.Performed at: [facility] [id number] Director: Zechariah Paula PhD,Phone: [phone] Muscle Antibodyon 39-64-5580Ajeclw Muscle Gukjjgoh19Jubckg9-09Cjg Critical Access Hospital Physician GroupComment on above:Order Comment: Reason [...] #### [facility] , #### PARVEEN, TSH3 #### [place] [address] USAThyrotropin [Units/volume] in Serum or PlasmaOrdered By: Wilver Felton on 88-68-2236HAP Qn1.24 m[IU]/LNormal0.45-5.33[facility] CenterComment on above:Order Comment: Reason for Exam Elevated LFTs Reason for Exam FatigueResult Comment: PERFORMED BY: [facility] [address] [id number] PATHOLOGIST [employer] LISA COOLEY M.D.Performed By: #### MITOM2, L-K MICRO, ALPHA PHEN, HEMOCHROM, CERULOP, TENA, IGG, SMAB #### [facility] , #### PARVEEN, TSH3 #### [place] [id number] USAMiscellaneouson 75-88-4530Rtmelwfvycihn [id number]#1.00[facility] [id number]#1.00[facility] HealthcareOutside Recordson 57-16-2508Kbgnprn Records [id number]#1.00[facility] Alanine aminotransferase [Enzymatic activity/volume] in Serum or PlasmaOrdered By: Imad Asaad on 84-69-4670JEH [Catalytic activity/Vol]48 U/L7-52[facility] CenterAlbumin [Mass/volume] in Serum or Plasma by Bromocresol green (BCG) dye binding methoOrdered By: Imad Asaad on 11-72-5365Jzzmjav BCG dye [Mass/Vol]4.3 g/dL3.5-5.7FBlanchard Valley Health System Bluffton HospitalAlkaline phosphatase [Enzymatic activity/volume] in Serum or PlasmaOrdered By: Imad Asaad on 74-00-0405KWP [Catalytic activity/Vol]60 U/U92-500VugetupiaMetrohealth Parma Medical CenterAspartate aminotransferase [Enzymatic activity/volume] in Serum or Plasma Ordered By: Imad Asaad on 19-34-1626VTH [Catalytic activity/Vol]27 U/L13-39 [facility] CenterBilirubin.direct [Mass/volume] in Serum or PlasmaOrdered By: Imad Asaad on 99-76-0874Abjkctred.direct [Mass/Vol]0.10 mg/dL 0.03-0.18FBlanchard Valley Health System Bluffton HospitalBilirubin.total [Mass/volume] in Serum or PlasmaOrdered By: ariana Jackson on 13-28-3671Wulfrmmzw [Mass/Vol]0.8 mg/dL 0.3-1.0[facility] CenterGlobulin Calc (S) [Mass/Vol]Ordered By: ad [facility] on 86-52-1372Sdhodcpp (S) [Mass/Vol]2.8 g/dLMetrohealth Parma Medical CenterHeestelle [facility]hen[facility] eye hospital B virus surface Ab [Units/volume] in SerumOrdered By: [facility] on 40-18-5250HNW surface Ab Qn (S)>1000.0 mIU/mLImmunity>9.9[facility] CenterComment on above:Status of Immunity Anti-HBs Level Inconsistent with Immunity 0.0 -9.9Consistent with Immunity >9.9Hepatitis B virus surface Ag [Presence] in Serum or Plasma by ImmunoassayOrdered By: ariana Jackson on 71-97-4367VEB surface Ag IA QlNegative NegativeSt. Anthony's Hospital C virus IgG Ab [Presence] in Serum or Plasma by ImmunoassayOrdered By: [facility] on 40-87-3567LSN IgG IA Ql Non-ReactiveNon ReactiveMetrohealth Parma Medical CenterNo Panel Information Ordered By: [facility] 40-17-3344Jodeueryr A IgM AntibodyNegativeNegative [facility] CenterHeestelle doheny eye hospital B Core IgM AntibodyNegativeNegative [facility] CenterComment on above:Performed at: [facility] [id number] Director: Zechariah Paula PhD, Phone: [phone] B Core Total AntibodyNegativeNegativeSt. Anthony's Hospital B DNA Test InformationSee comment.[facility] CenterComment on above:The reportable range for this assay is 10 IU/mL to 1billion IU/mL.Performed at: - [address] [id number] Director: Aston Omalley MD, Phone: [phone] Hepatitis C InterpretationSee comment.[facility] CenterComment on above:Not infected with HCV unless early or acute infection issuspected (which may be delayed in an immunocompromisedindividual), or other evidence exists to indicate HCVinfection.Protein [Mass/volume] in Serum or PlasmaOrdered By: Wilver Felton on 19-15-8079Fgujtlc [Mass/Vol]7.1 g/dL6.4-8.9[facility] Medina Hospitalerum hepatitis B virus surface antibody detectionOrdered By: Wilver Felton on 88-06-8123XCM surface Ab Ql (S)Reactive.[facility] CenterComment on above:Non Reactive: Inconsistent with immunity, less than 10 mIU/mL Reactive: Consistent with immunity, greater than 9.9 mIU/mLSerum or plasma albumin/globulin mass ratioOrdered By: ariana Felton on 03-19-2023 Albumin/Globulin [Mass ratio]1.5 {ratio}[facility] Hospitalerum or plasma hepatitis B virus DNA measurement (units/volume) (viral load) by prob Ordered By: Wilver Felton on 39-90-5704TPR DNA GITA+probe QnNot detected.[facility] Hospitalerum or plasma hepatitis B virus DNA viral load by probe and target amplification meOrdered By: ariana Felton on 74-55-3561SJL DNA GITA+probe [Log units/Vol]See comment.[facility] CenterComment on above: Result Units: log10 IU/mLUnable to calculate result since non-numeric resultobtained for component test.Serum or plasma non-glucuronidated bilirubin measurement (mass/volume)Ordered By: Wilver Felton on 00-07-7369Shorsgwkc.indirect [Mass/Vol]0.7 mg/dLMetrohealth Parma Medical CenterOutside Recordson 03-03-2023 Outside [id number]#1.00OTMorrow County HospitalOutside Recordson 27-87-3681Lihyxlm Records [id number]#1.00[facility] Coding Summaryon 41-64-3948Jtfcvt SummaryHTMLBase 64 TokqoothPMx7wEm+PGhlYWQ+UL7IDDVkL54baZJjlS7wT8EBOInNVrpgDCCOWCxRWnSfjiWhHW2lsWOx ZXJu [file] IGN (more content not included)...[facility] DaytonReminder Messageson 77-95-3183Avfkqubn Messages From: BALJIT PISANO DO To: [facility] Clinical Pool ([facility] Sent: 02/12/2023 15:32:57 EDT ! Show up: [...] % (14 - 48) 02/12/2023 13:38 Auto [place] % 12 % (1 - 12) 02/12/2023 13:38 Auto Eos % 2.0 % (0.9 - 4.0) 02/12/2023 13:38 Auto Baso % 0.8 % (0.2 - 2.0) 02/12/2023 13:38 Neut Abs# 3.4 x103/mcL (1.5 - 9.2) 02/12/2023 13:38 Lymph Abs# 1.7 x103/mcL (1.3 - 2.9) 02/12/2023 13:38 [place] Abs# 0.7 x103/mcL (0.0 - 0.8) 02/12/2023 13:38 Eos Abs# 0.1 x103/mcL (0.0 - 0.4) 02/12/2023 13:38 Baso Abs# 0.0 x103/mcL (0.0 - 0.2) attempted to contact patient, unable to LM, multiple rings, no VM Patient returned tamra and was notified of results.[facility].Auto Diff 1on 95-05-0417Lbgu [place] %12 %Normal1-12[facility] - TrumbullComment on above: Performed By: #### [id number], 4100497, [id number] ####[facility] (DEFAULT)[address] [place] [address]Hcga Abs#0.0 q58Gjytjl2.0-0.2 [facility] - TrumbullComment on above:Performed By: #### [id number], 3957686, [id number] ####[facility] (DEFAULT)[address] [place] [address] 63515Zsojnpwbc/100 WBC (Bld)0.8 %Normal0.2-2.0[facility]lect [facility] HospitalComment on above: Performed By: #### [id number], 0464021, [id number] ####[facility] (DEFAULT)[address] [place] [address] 70164Qyr Abs#0.1 q59Txbcmq1.0-0.4 [facility] HospitalComment on above:Performed By: #### 30627004, 7696855, [id number] ####[facility] (DEFAULT)[address] [place] [address] 65431Tniwehrxgec/100 WBC (Bld)2.0 %Normal0.9-4.0[facility] HospitalComment on above:Performed By: #### 13854380, 3680306, [id number] ####[facility] (DEFAULT)[address] [place] [address] 39268Qyhyc Abs#1.7 q23Ndbgfj1.3-2.9 [facility] HospitalComment on above:Performed By: #### 51249270, 1787571, [id number] ####[facility] (DEFAULT)[address] [place] [address] 44402Puuziiynnfg/100 WBC (Bld)28 %Orgfoy65-20Nphhinjn HospitalComment on above: Performed By: #### 93837906, 3040303, [id number] ####[facility] (DEFAULT)[address] [place] [address] 28362Alhj Abs#0.7 j61Bcnehe3.0-0.8 [facility] HospitalComment on above:Performed By: #### 29038932, 3441041, [id number] ####[facility] (DEFAULT)[address] [place] [address] 36806Kisp Abs#3.4 v92Qepkiq6.5-9.2[facility]uder HospitalComment on above:Performed By: #### 81208067, 2167553, [id number] ####[facility] (DEFAULT)[address] [place] [address] 69190Grjufwjacbq/100 WBC (Bld)57 %Kwizab79-04Ssufxvoe HospitalComment on above:Performed By: #### 34327377, 7907293, [id number] ####[facility] (DEFAULT)[address] [place] [address] 31543YSO w/ Auto Diffon 23-32-2212Dhdvqkyxalo distribution width (RBC) [Ratio]12.9 %Normal 11.5-15.0[facility] - TrumbullComment on above:Performed By: #### 98863155, 3278786, [id number] #### [facility] (DEFAULT) [address] [place] [address] 44414Vkuxlmzzrg (Bld) [Volume fraction]42.2 %Fwyvtw08.8-51.9 [facility] - TrumbullComment on above:Performed By: #### 43664977, 3142512, [id number] #### [facility] (DEFAULT) [address] [place] [address] 93788Wbtzbxfeza (Bld) [Mass/Vol]14.7 g/vBJvpllb77.8-17.7 [facility] - TrumbullComment on above:Performed By: #### 52312017, 7094613, [id number] #### [facility] (DEFAULT) [address] [place] [address] 95687Tzt Diff?AutoInvalid Interpretation [facility] Comment on above:Performed By: #### 39218890, 2205574, [id number] #### [facility] (DEFAULT) [address] [place] [address] 97939EDC (RBC) [Entitic mass]30 scJazldr50-62[facility] Comment on above:Performed By: #### 21594718, 1707524, [id number] #### [facility] (DEFAULT) [address] [place] [address] 73156WRWG (RBC) [Mass/Vol]35 g/lXJdljgm25-08Suwmrtyk Hospital Comment on above:Performed By: #### 72271661, 7983735, [id number] #### [facility] (DEFAULT) [address] [place] [address] 05033AAQ (RBC) [Entitic vol]86 gQEzzhzq72-907Ndzcmfwa Hospital Comment on above:Performed By: #### 27514502, 6901865, [id number] #### [facility] (DEFAULT) [address] [place] [address] 90708Jmnuofhn367 v51Cknoua695-133Crghpkdf HospitalComment on above:Performed By: #### 83160784, 3248305, [id number] #### [facility] (DEFAULT) [address] [place] [address] 43932Ttfiiagd mean volume (Bld) [Entitic vol]8.6 fLNormal 6.3-10.2[facility] HospitalComment on above:Performed By: #### 99420524, 5966619, [id number] #### [facility] (DEFAULT) [address] [place] [address] 93234WIS7.89 u72Jenjyk2.70-5.30[facility] HospitalComment on above:Performed By: #### 87168814, 2302642, 0467742419 #### [facility] (DEFAULT) [address] [place] [address] 10959GBI0.9 f50Qumyke9.5-10.5[facility] HospitalComment on above: Performed By: #### 76012357, 3577143, [id number] #### [facility] (DEFAULT) [address] [place] [address] 64702Pkrnv Enzymeson 70-64-3538Efm Phos56 IU/UCzfrpw91-29 [facility] - TrumbullComment on above:Performed By: #### 79085162, 3741131, [id number] ####[facility] (DEFAULT)[address] [place] [address] 05488UOI [Catalytic activity/Vol]53.0 U/LHigh8.0-36.0[facility] HospitalComment on above:Performed By: #### 02273172, 3234650, [id number] ####[facility] (DEFAULT)[address] [place], [place] [address]TGJ [Catalytic activity/Vol]35 U/UDiicfk12-21Xfmhyamv HospitalComment on above:Performed By: #### 80353022, 3366088, [id number] ####[facility] (DEFAULT)[address] [place] [address] 03923Xinjb glutamyl transferase [Catalytic activity/Vol]31.0 U/LHigh 7.0-26.0[facility] HospitalComment on above:Performed By: #### 51805936, 5926360, [id number] ####[facility] (DEFAULT)[address] [place] [address] 33977Gjrxxa Summaryon 34-36-4233Avsfau SummaryHTMLBase 64 YkomxnkqVEq0gQj+PGhlYWQ+PK5QZYGcZ33ngAFeuB3fU3NPBMbWAknjCYQYHJpGUnPenrDoJW6owWUa ZXJu [file] IGN (more content not included)...[facility] DaytonOutside Recordson 79-52-3584Fyreaay [id number]#1.00OTGTIFF [facility] DaytonReminder Messageson 54-77-8110Gbqetbdp Messages From: BALJIT PISANO DO To: [facility] Clinical Pool ([facility]); Sent: 01/13/2023 07:37:35 [...] IU/L (7.0 - 26.0) Notified patient of [facility] Messages From: BALJIT PISANO DO To: [facility] Clinical Pool ([facility] Sent: 01/13/2023 07:34:28 EDT ! Show up: 01/13/2023 07:34:28 EDT Subject: Results Follow Up Actions: Call the patient with result(s) Due Date/Time: 01/14/2023 07:34:00 EDT Reminder Comments: swollen fatty liver consistenat with hepatitis Results: Date Result Type Result Name 01/09/2023 16:08 Radiology US Gallbladder [facility] Enzymeson 68-53-8228Hxk Phos57 IU/FAtgtlc32-52Jynxcutc HospitalComment on above:Performed By: #### [id number] ####[facility] (DEFAULT)[address] [place] [address] 29300TLV [Catalytic activity/Vol]54.0 U/LHigh8.0-36.0[facility] - TrumbullComment on above:Performed By: #### [id number] ####[facility] (DEFAULT)[address] [place] [address] 66742KGB [Catalytic activity/Vol]35 U/BAgpkbx57-15 [facility] - TrumbullComment on above:Performed By: #### [id number] ####[facility] (DEFAULT)[address] [place] [address] 68941Whxzq glutamyl transferase [Catalytic activity/Vol]30.0 U/LHigh7.0-26.0[facility] - TrumbullComment on above:Performed By: #### [id number] ####[facility] (DEFAULT)[address] [place] [address] 00638XQ Gallbladderon 76-45-5765AP GallbladderClinical History: Right upper quadrant pain. Technique: [...] Rafita Farris MD 01/09/23 4:08 pm Technologist: [facility] HospitalC[facility] Summaryon 90-77-2582Daekpv SummaryHTMLBase 64 UmzevofuAZm6yZk+PGhlYWQ+QC3NCCDrG95szKKstE3xF8LLLCjGHlzvVRBZQDcDJfGvsbWwND2ieVXp ZXJu [file] IGN (more content not included)...[facility] DaytonReminder Messageson 78-51-3982Yifxnrci Messages From: BALJIT PISANO DO To: [facility] Clinical Pool ([facility] Sent: 01/01/2023 10:45:19 EDT ! Show up: [...] voicemail Notified patient of results, patient verbalized understanding.NormalSelect Medical Specialty Hospital - TrumbullHBsAg Screen LCon 25-10-2092XWlBk Screen LCNegativeInvalid Interpretation CodeNegativeSelect Medical Specialty Hospital - TrumbullComment on above:Result Comment: Performed At: [address] [id number] Chai Apple PhD Ph:[phone] By: #### [id number], 72115498, 9797891, 80347253, 84792321, [id number] ####[facility] (DEFAULT)[address] [place] [address] 39987ADW Antibody LCon 97-03-3286Afz C Virus Ab LC Non-ReactiveInvalid Interpretation CodeNon ReactiveSelect Medical Specialty Hospital - TrumbullComment on above:Result Comment: HCV antibody alone does not differentiate between previously resolved infection and active infection. Equivocal and Reactive HCV antibody results should be followed up with an HCV RNA test to support the diagnosis of active HCV infection. Performed At: [address] [id number] Chai Apple PhD Ph:[phone] By: #### 45759695, 39952121, 5360773, 66558225, 79719357, [id number] ####[facility] (DEFAULT)[address] [place] [address] 44085Vwp A Ab, Total LCon 64-09-1896Qtv A Ab, Total LCPositiveAbnormalNegativeSelect Medical Specialty Hospital - TrumbullComment on above:Result Comment: Performed At: [address] [id number] Chai Apple PhD Ph:[phone] By: #### [id number], 47072396, 0457822, 58044963, 22016705, [id number] ####[facility] (DEFAULT)[address] [place] [address] 42045Uhqvfmt Recordson 26-78-7752Boieaqw Records [id number]#1.00[facility] Patient Handouton 06-46-0164Ohyfgbz Handout [id number]#1.00[facility].Auto Diff 1on 58-30-8758Gkgl [place] %8 %Normal1-12[facility] HospitalComment on above: Performed By: #### 46345172, 91356040, 2778173, 72026118, 99049403, 4435908524 ####[facility] (DEFAULT)[address] [place] [address] 62811Weao Abs# 0.0 m94Ahxemz8.0-0.2[facility] HospitalComment on above:Performed By: #### 42803615, 49143457, 8261589, 24586143, 83041203, 9537293654 ####[facility] (DEFAULT)[address] [place] [address] 61022Mupwxqyom/100 WBC (Bld) 0.6 %Normal0.2-2.0[facility] HospitalComment on above:Performed By: #### 50611902, 82427324, 5390304, 14706256, 70565761, [id number] ####[facility] (DEFAULT)[address] [place] [address] 90904Zcm Abs#0.1 a59Mixxku7.0-0.4 [facility] HospitalComment on above:Performed By: #### 23948896, 77860746, 7512379, 45962567, 64169849, 1291401207 ####[facility] (DEFAULT)[address] [place] [address] 75279Akbxgpznpmx/100 WBC (Bld)1.9 %Normal0.9-4.0 [facility] HospitalComment on above:Performed By: #### 03565656, 85196979, 8797515, 10844303, 30563186, [id number] ####[facility] (DEFAULT)[address] [place] [address] 97699Bfhds Abs#1.8 b59Hbpjbu2.3-2.9[facility] HospitalComment on above:Performed By: #### 27046815, 58221518, 7625387, 76606693, 34258250, 6681902601 ####[facility] (DEFAULT)[address] [place] [address] 04942Iuzlbqwvita/100 WBC (Bld)27 %Tavdsh85-44Fzjezfnp HospitalComment on above:Performed By: #### 18619958, 95388131, 6640880, 82887016, 48412693, 8227261140 ####[facility] (DEFAULT)[address] [place] [address] 00912Gryj Abs#0.5 x55Jelnac2.0-0.8[facility] Hospital Comment on above:Performed By: #### 76636554, 62312392, 3828941, 25104757, 12562219, 5931953123 ####[facility] (DEFAULT)[address] [place] [address] 12465Rwes Abs#4.3 a28Gkwpbs8.5-9.2Magrkettering health – soin [facility] center HospitalComment on above: Performed By: #### 54920519, 30673946, 4376193, 13435709, 96809821, 8923834116 ####[facility] (DEFAULT)[address] [place] [address] 50050 Neutrophils/100 WBC (Bld)63 %Vvckjr96-92Nspfycqi HospitalComment on above: Performed By: #### 23804690, 53371055, 5193871, 88412267, 86817821, 7241686781 ####[facility] (DEFAULT)[address] [place] [address] 94168KIZ w/ Auto Diffon 86-51-6000Itgbdukebeo distribution width (RBC) [Ratio]13.0 %Normal 11.5-15.0[facility] HospitalComment on above:Performed By: #### 66912932, 80771375, 8162111, 33372557, 92314467, 6430700495 ####[facility] (DEFAULT)[address] [place] [address] [id number] (Bld) [Volume fraction]43.9 %Ykewbe42.8-51.9[facility] HospitalComment on above:Performed By: #### [id number], [id number], [id number], [id number], [id number], [id number] ####[facility] (DEFAULT)[address] [place] [address] [id number] (Bld) [Mass/Vol]15.4 g/dRExekuz81.8-17.7[facility] HospitalComment on above:Performed By: #### [id number], [id number], [id number], [id number], [id number], [id number] ####[facility] (DEFAULT)[address] [place] [address] [id number] Diff? AutoInvalid Interpretation CodeOhiohealth Doctors Hospital HospitalComment on above:Performed By: #### [id number], [id number], 7328032, [id number], [id number], [id number] ####[facility] (DEFAULT)[address] [place] [address] 86814PHN (RBC) [Entitic mass]30 acHznqti35-64Jfbfllfv HospitalComment on above:Performed By: #### [id number], [id number], 6466271, 06746049, 93758559, [id number] ####[facility] (DEFAULT)[address] [place] [address] [id number] (RBC) [Mass/Vol]35 g/dDBsiqct31-64Cdqwccwm HospitalComment on above:Performed By: #### [id number], [id number], 4529362, 83354560, [id number], [id number] ####[facility] (DEFAULT)[address] [place] [address] 91445SRA (RBC) [Entitic vol]86 fL Ufjduo20-994Bylsmsqv HospitalComment on above:Performed By: #### [id number], [id number], [id number], [id number], [id number], [id number] ####[facility] (DEFAULT)[address] [place] [address] [id number] [id number] [facility] TrumbullComment on above:Performed By: #### [id number], [id number], [id number], [id number], [id number], [id number] ####[facility] (DEFAULT)[address] [place] [address] 51072Obkegjgp mean volume (Bld) [Entitic vol]8.5 fLNormal6.3-10.2[facility] HospitalComment on above:Performed By: #### [id number], [id number], [id number], [id number], [id number], [id number] ####[facility] (DEFAULT)[address] [place] [address] 65652SUQ7.08 h59Xwieim8.70-5.30 [facility] TrumbullComment on above:Performed By: #### [id number], [id number], 7869981, 18452606, 63058615, [id number] ####[facility] (DEFAULT)[address] [place] [address] 12117ASX0.8 i67Nkpllw8.5-10.5[facility] Comment on above:Performed By: #### [id number], [id number], 2264959, 72167731, [id number], [id number] ####[facility] (DEFAULT)[address] [place] [address] 16276Vqdlc Enzymeson 14-03-2609Yuf Phos62 IU/TXoqxce87-46Twtgihho HospitalComment on above:Performed By: #### [id number], [id number], [id number], 86067424, 79928239, [id number] ####[facility] (DEFAULT)[address] [place] [address] 11622UYZ [Catalytic activity/Vol]60.0 U/LHigh8.0-36.0 [facility] TrumbullComment on above:Performed By: #### [id number], [id number], 9970055, 73340609, [id number], [id number] ####[facility] (DEFAULT)[address] [place] [address] 12765MKW [Catalytic activity/Vol]41 U/IIbpc57-21 [facility] TrumbullComment on above:Performed By: #### [id number], [id number], 8392910, 82944284, 94093929, [id number] ####[facility] (DEFAULT)[address] [place] [address] 49007Nohzb glutamyl transferase [Catalytic activity/Vol]26.0 U/LNormal7.0-26.0[facility] TrumbullComment on above:Performed By: #### [id number], [id number], 0367791, 19304097, [id number], [id number] ####[facility] (DEFAULT)[address] [place] [address] 30008Mbkowxf Handouton 09-91-9105Drdimap Handout [id number]#1.00OTGTIFFNoSt. Vincent HospitalRNP ANTIBODIESon 71-93-2730HCZ Antibodies0.3 AINormal0.0-0.9The [place] Comment on above:Performed By: #### RNPAB #### [facility] [address] [place] [address] Dr. Radha Jung ANTIBODIES (Anti SSA/B)on 52-94-9020Jwacmlo'maegan Anti-SS-A <0.0Nwpzwd3.0-0.9The [facility] SystemComment on above:Performed By: #### SAASSAB #### [facility] [address] [place] [address] Dr. Radha Lux Anti-SS-B<0.1Imbiju5.0-0.9The [facility]ervilleComment on above:Performed By: #### SAASSAB #### [facility] [address] [place] [address] Dr. Radha Mendez PROFILE Bon 20-29-7259LRO DirectNegativeNormalNegativeThe [facility]health SystemComment on above:Performed By: #### SLEPB #### [facility] [address] [address] [address] Radha OwensAnti-DNA (DS) Ab Qn2 IU/mLNormal0-9The [facility] SystemComment on above:Result Comment: Negative <5 Equivocal 5 - 9 Positive >9Performed By: #### SLEPB #### [facility] [address] [address] [address] Radha OwensAntichromatin Antibodies<0.5Ncoufd4.0-0.9[facility] Comment on above:Performed By: #### SLEPB #### [facility] [address] [place] [address] Dr. Radha Jimplement C3, Wlxoo678 mg/uZVzqfvt82-375UesThe [facility] System Comment on above:Performed By: #### SLEPB #### [facility] [address] [place] [address] Dr. Radha Barber C4, Serum23 mg/gQJegyvk63-64PjeThe [facility] Comment on above:Performed By: #### SLEPB #### [facility] [address] [place] [address] Dr. Radha OwensSMITH ANTIBODIESon 04-97-8296Suqvo Antibodies<0.8Iyakus1.0-0.9The [facility] SystemComment on above:Performed By: #### SMITHAB #### [facility] [address] [address] [address] Radha OwensRHEUMATOID FACTORon 67-60-9388NO Latex Turbid.<10.0Normal<14.0The [facility]ervilleComment on above:Performed By: #### RF ####[facility] [address] [address]Dr. Radha Montes De Oca by IFAon 86-37-2643Owetfstnpne Antibodies, IFAPositiveAbnoalThe [facility] Comment on above:Result Comment: Negative <1:80 Borderline 1:80 Positive >1:80Performed By: #### ANAIFA #### [facility] [address] [address] [address] Radha Herrera PatternNoKeenan Private HospitalComment on above: Performed By: #### ANAIFA #### [facility] [address] [address] [address] Radha Garcia PatternNoKeenan Private HospitalComment on above: Performed By: #### ANAIFA #### [facility] [address] [place] [address] Dr. Radha OwensHomogeneous Pattern1:320Critically highThe [facility] Comment on above:Result Comment: ICAP nomenclature: AC-1Performed By: #### ANAIFA #### [facility] [address] [place] [address] Dr. Radha Benavidez PatternNoKeenan Private HospitalComment on above: Performed By: #### ANAIFA #### [facility] [address] [place] [address] Dr. Radha OwensNote:CommentNoProMedica Defiance Regional Hospitalment on above:Result Comment: For more information about [...] titers Nucleosomes, Histones Drug-induced SLE Speckled Sm, STREET VENDOR, SCL-70, SLE,MCTD,PSS (diffuse form), SS-A/SS-B Sjogrens Nucleolar SCL-70, PM- 1/SCL High titers Scleroderma, PM/DM Centromere Centromere PSS (limited form)w/Crest syndrome variable Nuclear Dot Sp100,v60-ezpwee Primary Biliary Cirrhosis Nuclear GP210, Primary Biliary Cirrhosis Membrane subhash A,B,C Performed By: ###Bharat DAVIS #### [facility] [address] [place] [address] Dr. Radha Moseley Dot PatternNormOhio State East HospitalComment on above: Performed By: ###Bharat DAVIS #### [facility] [address] [place] [address] Dr. Radha Moseley Membrane [facility] CantonComment on above:Performed By: #### ANAIFA #### [facility] [address] [address] [address] Radha Frazierucleolar [facility] CantonComcorewell health [facility] on above: Performed By: #### ANAIFA #### [facility] [address] [address] [address] Radha HamNA [facility] - CantonComment on above:Performed By: #### ANAIFA #### [facility] [address] [address] [address] Radha Elizaldekled [facility] CantonComcorewell health [facility] hospital on above: Performed By: #### ANAIFA #### [facility] [address] [address] [address] Radha OwensSpindle Apparatus [facility] CantonComment on above:Performed By: #### ANAIFA #### [facility] [address] [address] [address] Radha SantiagoEUMATOID FACTORon 88-69-9607XE Latex Turbid.<10.0Normal<14.0The [facility] on above:Performed By: #### RF ####[facility] [address] [address]Dr. Radha Barnett AUTO DIFF on 09-45-7949ECPJ #0.0 103/ulNormal0.0-0.1The [facility] on above: Performed By: #### CBC #### [facility] [address] [address] [address] Radha Benedictphils/100 WBC (Bld)0.6 %Normal0.2-2.0[facility] Comment on above:Performed By: #### CBC #### [facility] [address] [address] [address] Garcia ChangEO #0.1 103/ulNormal0.0-0.7The [facility] on above: Performed By: #### CBC #### [facility] [address] [place] [address] Dr. Radha Burrellosinophils/100 WBC (Bld)1.8 %Normal0.9-7.0[facility] Comment on above:Performed By: #### CBC #### [facility] [address] [place] [address] Dr. Radha Burrellrythrocyte distribution width (RBC) [Ratio]12.3 %Jevcpz61.0-15.0 The [facility]ervilleComment on above:Performed By: #### CBC #### [facility] [address] [place] [address] Dr. Radha OwensHematocrit (Bld) [Volume fraction]42.2 %Tpuvzk57.0-54.0The [facility]ervilleComment on above:Performed By: #### CBC #### [facility] [address] [place] [address] Dr. Radha OwensHemoglobin (Bld) [Mass/Vol]14.3 g/sCXqnznp17.0-18.0The [facility]ervilleComment on above:Performed By: #### CBC #### [facility] [address] [place] [address] Dr. Radha Farooq #0.02 10e3/ulNormal0.00-0.03The [facility] Hospitalment on above:Performed By: #### CBC #### [facility] [address] [place] [address] Dr. Radha Farooq %0.3 %Normal0.0-0.5The [facility] Hospitalment on above: Performed By: #### CBC #### [facility] [address] [place] [address] Dr. Radha BustosH #1.8 103/ulNormal1.2-3.8The [facility]ervilleComment on above:Performed By: #### CBC #### [facility] [address] [place] [address] Dr. Radha Wattersmphocytes/100 WBC (Bld)27.8 %Xralib17.5-60.0The [facility]ervilleComment on above:Performed By: #### CBC #### [facility] [address] [place] [address] Dr. Radha Morse DIFF REQNONormalThe [facility]ervilleComment on above: Performed By: #### CBC #### [facility] [address] [place] [address] Dr. Radha Penaloza (RBC) [Entitic mass]29.8 tcFumnlz97.9-34.0The [facility] HospitalComment on above:Performed By: #### CBC #### [facility] [address] [place] [address] Dr. Radha Penaloza (RBC) [Mass/Vol]33.9 g/lAYzcpsa78.9-35.2The [facility]ervilleComment on above:Performed By: #### CBC #### [facility] [address] [place] [address] Dr. Radha Penaloza (RBC) [Entitic vol]87.9 sPPyuxrf54.0-94.0The [facility]ervilleComment on above:Performed By: #### CBC #### [facility] [address] [place] [address] Dr. Radha Lofton #0.7 103/ulNormal0.3-0.8The [facility]ervilleComment on above:Performed By: #### CBC #### [facility] [address] [place] [address] Dr. Radha Peralesocytes/100 WBC (Bld)11.3 %Normal1.7-12.0The [facility] Comment on above:Performed By: #### CBC #### [facility] [address] [place] [address] Dr. Radha Mcfadden #3.8 103/ulNormal1.4-6.5The [facility]ervilleComment on above:Performed By: #### CBC #### [facility] [address] [place] [address] Dr. Radha Weeksutrophils/100 WBC (Bld)58.2 %Ynjuyf18.0-75.0The [facility]ervilleComment on above:Performed By: #### CBC #### [facility] [address] [place] [address] Dr. Radha Herrmannlet mean volume (Bld) [Entitic vol]10.4 fLNormal9.5-13.5The [facility]ervilleComment on above:Performed By: #### CBC #### [facility] [address] [place] [address] Dr. Radha OwensPLT235 103/rtKlpnjl531-327Lxn CentervilleComment on above: Performed By: #### CBC #### [facility] [address] [place] [address] Dr. Radha OwensRBC4.80 106/ulNormal4.70-6.10The [facility]ervilleComment on above:Performed By: #### CBC #### [facility] [address] [place] [address] Dr. Radha OwensWBC6.5 103/ulNormal4.0-11.0The [facility]ervilleComment on above: Performed By: #### CBC #### [facility] [address] [place] [address] Dr. Radha Mclaughlin 14(COMP METB)on 55-94-6041Bsoapxr [Mass/Vol]3.9 g/dLNormal 3.4-5.0The [facility]ervilleComment on above:Performed By: #### CMP, URIC #### [facility] [address] [place] [address] Dr. Radha OwensAlbumin/Globulin [Mass ratio]1.0 {ratio}NormalThe [facility]ervilleComment on above:Performed By: #### CMP, URIC #### [facility] [address] [place] [address] Dr. Radha Uriarte [Catalytic activity/Vol]73 U/HKymuid68-150Qui CentervilleComment on above:Performed By: #### CMP, URIC #### [facility] [address] [place] [address] Dr. aRdha Atkins [Catalytic activity/Vol]66 U/LCritically wglb05-56Tcs CentervilleComment on above:Performed By: #### CMP, URIC #### [facility] [address] [place] [address] Dr. Radha Hwangon gap [Moles/Vol]13.2 mmol/LNormalThe [facility] Comment on above:Performed By: #### CMP, URIC #### [facility] [address] [place] [address] Dr. Radha OwensAST [Catalytic activity/Vol]31 U/EXvvqxj02-55Kvf CentervilleComment on above:Performed By: #### CMP, URIC #### [facility] [address] [place] [address] Dr. Radha OwensBilirubin [Mass/Vol]0.8 mg/dLNormal0.2-1.0[facility] Comment on above:Performed By: #### CMP, URIC #### [facility] [address] [place] [address] Dr. Radha OwensCalcium [Mass/Vol]9.2 mg/dLNormal8.5-10.1[facility] Comment on above:Performed By: #### CMP, URIC #### [facility] [address] [place] [address] Dr. Radha OwensChloride [Moles/Vol]107 mmol/SHhects44-479UxzThe [facility] Comment on above:Performed By: #### CMP, URIC #### [facility] [address] [place] [address] Dr. Radha OwensCO2 [Moles/Vol]26.0 mmol/BShtqpz15.0-32.0The [facility] Comment on above:Performed By: #### CMP, URIC #### [facility] [address] [place] [address] Dr. Radha OwensCreatinine [Mass/Vol]0.89 mg/dLNormal0.70-1.30The [facility]ervilleComment on above:Performed By: #### CMP, URIC #### [facility] [address] [place], [place] [id number] Dr. Radha BurrellGFR-AF GIBRALTARIAN>60Normal>=60The [facility]ervilleComment on above:Performed By: #### CMP, URIC #### [facility] [address] [place] [address] Dr. Radha BurrellGFR-NON AF GIBRALTARIAN>60Normal>=60The [facility]ervilleComment on above:Performed By: #### CMP, URIC #### [facility] [address] [place] [address] Dr. Radha OwensGlobulin (S) [Mass/Vol]4.1 g/dLNormalThe [facility]Comment on above:Performed By: #### CMP, URIC #### [facility] [address] [place] [address] Dr. Radha OwensGlucose [Mass/Vol]99 mg/hHFrgxqe32-792EgsThe [facility] Comment on above:Performed By: #### CMP, URIC #### [facility] [address] [place] [address] Dr. Radha OwensPotassium [Moles/Vol]4.2 mmol/LNormal3.5-5.1[facility] Comment on above:Performed By: #### CMP, URIC #### [facility] [address] [place] [address] Dr. Radha OwensProtein [Mass/Vol]8.0 g/dLNormal6.4-8.2[facility] Comment on above:Performed By: #### CMP, URIC #### [facility] [address] [place] [address] Dr. Radha OwensSodium [Moles/Vol]142 mmol/YGstfuk373-371JqpThe [facility] Comment on above:Performed By: #### CMP, URIC #### [facility] [address] [place] [address] Dr. Radha OwensUrea nitrogen [Mass/Vol]13.0 mg/dLNormal6.4-19.3THolzer HospitalComment on above:Performed By: #### CMP, URIC #### [facility] [address] [place], [place] [id number] Dr. Radha OwensUrea nitrogen/Creatinine [Mass ratio]14.6 mg/mgNoKeenan Private HospitalComment on above:Performed By: #### CMP, URIC #### [facility] [address] [place] [address] Dr. Radha OwensSED RATE WESTERGRENon 72-37-9177CST RATE12 mm/hrNormal<=15The [facility]ervilleComment on above:Performed By: #### SEDR #### [facility] [address] [place] [address] Dr. Radha OwensURIC ACID SERUMon 67-85-6737Bsrzt [Mass/Vol]5.9 mg/dLNormal 3.5-7.2The [facility]Comment on above:Performed By: #### CMP, URIC #### [facility] [address] [place] [address] Dr. Radha Rodriguez CLIF DOP LEG RTon 35-82-6020FA CLIF DOP LEG RTEXAMINATION: US CLIF DOP LEG RT HISTORY: Pain of right calf COMPARISON: No relevant comparison available. FINDINGS: REGION: Right lower extremity THROMBI: None. COMPRESSIBILITY: Normal compressibility. FLOW: Normal waveform and antegrade flow between 5 and 20 cm/s. OTHER: None. IMPRESSION: 1. No deep vein thrombus within the right lower extremity. Electronically authenticated by: SANJAY ROJAS Date: 2022-07-03 17:14[facility] HospitalCOVID Quick Testingon 55-26-3078XnzymrCrxtbvogBiwvj EDUS Other mRI Knee w/o Righton 23-45-3510GDO Knee w/o Right HISTORY: Fall with knee [...] signed by Rafita Farris on 05/01/2021 1125NormalNorthern [facility] SpecialistKNEE RIGHTon 02-88-1236EDVM RIGHTEXAMINATION: KNEE RIGHT, 04/18/2021 5:05 PM EST HISTORY: Traumatic injury, pain COMPARISON: None. TECHNIQUE: Right knee x-ray: 2 view(s). FINDINGS: Bones are normal density. No fracture, no bone destruction. Small knee effusion noted. Subcutaneous edema is seen. IMPRESSION: 1. No acute traumatic osseous pathology 2. Subcutaneous edema, possible small knee effusionNoTriHealth [facility] XR ANKLE 3 VIEWS - LEFTon 77-80-0246PJ ANKLE 3 VIEWS - LEFTREASON FOR EXAM: [...] Kandice Noriega MD on 12/25/2017 2:18 PMNormal [facility] Vital Signs Date TimeVital SignValuePerforming PzsechlsiBacmmyhc39-47-6452 10:25-0500Body grigld082.9 cmJegilbertoelmo Byrd COPPER PLATE PRINTER-DESULPHURING OPERATOR Work Phone: [facility]11-03-2025 10:25-0500Body mass index (BMI) [Ratio]61.84 kg/q8YoexkhoFranci Byrd APRN-DESULPHURING OPERATOR Work Phone: [facility]11-03-2025 10:25-0500Body .84 kgFranci Byrd COPPER PLATE PRINTER-DESULPHURING OPERATOR Work Phone: [facility]10-23-2025 12:24-0400Body irxkhj567.[address]10-23-2025 12:24-0400Body mass index (BMI) [Ratio]61.86 kg/g3Hnuir[address]10-23-2025 12:24-0400Body vthfwslrymg21.11 [degF][address]10-23-2025 12:24-0400Body oqrmcu615.[address]10-23-2025 12:24-0400Diastolic blood oxehrjkr62 mm[Hg][address]10-23-2025 12:24-0400Heart rate 107 /min[address]10-23-2025 12:24-0400Respiratory rate20 /min[address]10-23-2025 12:24-2072RsT0% (BldA) [Mass fraction]97 %[address]10-23-2025 12:24-0400Systolic blood bnjtrjii113 mm[Hg][address]10-22-2025 08:35-0400Body height 182.88 cmLeatha Emily COPPER PLATE PRINTER Work Phone: [facility]10-22-2025 08:35-0400 Body mass index (BMI) [Ratio]61.7 kg/v6Epyzvuku Emily COPPER PLATE PRINTER Work Phone: [facility]10-22-2025 08:35-0400 Body zvdsdkqrohy55.2 [degF]Leatha Diaz [employer]PER PLATE PRINTER Work Phone: [facility]10-22-2025 08:35-0400 Body xoehvu597.38 kgLeatha Diaz COPPER PLATE PRINTER Work Phone: [facility]10-22-2025 08:35-0400 Diastolic blood mm[Hg]Leatha Diaz COPPER PLATE PRINTER Work Phone: [facility]10-22-2025 08:35-0400 Heart czjg296 /minLeatha Diaz COPPER PLATE PRINTER Work Phone: [facility]10-22-2025 08:35-0400 SaO2% (BldA) [Mass fraction]94 %Leatha Diaz COPPER PLATE PRINTER Work Phone: [facility]10-22-2025 08:35-0400 Systolic blood mcsiojjx591 mm[Hg]Leatha Diaz [employer]PER PLATE PRINTER Work Phone: [facility]10-06-2025 10:06-0400 Body nqidoe568.9 cmFranci Byrd COPPER PLATE PRINTER-DESULPHURING OPERATOR Work Phone: [facility]10-06-2025 10:06-0400Body mass index (BMI) [Ratio]61.28 kg/c5Ktntqim Byrd COPPER PLATE PRINTER-DESULPHURING OPERATOR Work Phone: [facility] ChannelEyes Twhtwg56-42-5109 10:06-0400Body mmosrj332.94 kgFranci Gayoll COPPER PLATE PRINTER-DESULPHURING OPERATOR Work Phone: [facility]10-06-2025 10:06-0400Diastolic blood svzjczej18 mm[Hg]Francielmo Byrd COPPER PLATE PRINTER-DESULPHURING OPERATOR Work Phone: [facility]10-06-2025 10:06-0400Heart rate 106 /minFranci Gayoll COPPER PLATE PRINTER-DESULPHURING OPERATOR Work Phone: [facility]10-06-2025 10:06-0400Systolic blood mm[Hg]Franci Carson [employer]PER PLATE PRINTER-DESULPHURING OPERATOR Work Phone: [facility]09-16-2025 10:44-0400Body yokkjs536.9 cmGail Shell MD Work Phone: [facility]09-16-2025 10:44-0400Body mass index (BMI) [Ratio]60.49 kg/i5FqxpeGail Shell MD Work Phone: [facility]09-16-2025 10:44-0400Body imjxyz270.3 kgGail Shell MD Work Phone: [facility]09-16-2025 10:44-0400Diastolic blood dbkmhbaw07 mm[Hg]Gail Shell MD Work Phone: [facility]09-16-2025 10:44-0400Heart rate 111 /minDterence Shell MD Work Phone: [facility]09-16-2025 10:44-0400Systolic blood tycaixqz661 mm[Hg]Gail Shell MD Work Phone: [facility]09-08-2025 09:34-0400Body eaupvy857.9 cmFranci Byrd COPPER PLATE PRINTER-DESULPHURING OPERATOR Work Phone: [facility]09-08-2025 09:34-0400Body mass index (BMI) [Ratio]60.33 kg/u0Oftsoht Byrd COPPER PLATE PRINTER-DESULPHURING OPERATOR Work Phone: [facility]09-08-2025 09:34-0400Body .76 kgFranci Gayoll COPPER PLATE PRINTER-DESULPHURING OPERATOR Work Phone: [facility]09-08-2025 09:34-0400Diastolic blood xbjjalmh92 mm[Hg]Franci Carson COPPER PLATE PRINTER-DESULPHURING OPERATOR Work Phone: [facility]09-08-2025 09:34-0400Heart rate 100 /minFranci Carson COPPER PLATE PRINTER-DESULPHURING OPERATOR Work Phone: [facility]09-08-2025 09:34-0400Systolic blood mm[Hg]Franci Byrd COPPER PLATE PRINTER-DESULPHURING OPERATOR Work Phone: [facility]09-03-2025 10:35-0400Diastolic blood mm[Hg]Enid Montenegro COPPER PLATE PRINTER-DESULPHURING OPERATOR Work Phone: [facility]09-03-2025 10:35-0400Heart rate 90 /minEnid Montenegro COPPER PLATE PRINTER-DESULPHURING OPERATOR Work Phone: [facility]09-03-2025 10:35-0400Systolic blood bbzysqtx439 mm[Hg]Enid Montenegro COPPER PLATE PRINTER-DESULPHURING OPERATOR Work Phone: [facility]08-07-2025 08:15-0400Body ukente336.[address]08-07-2025 08:15-0400Body mass index (BMI) [Ratio]59.4 kg/m2Pmh [address] [place], [place] 9965308-07-2025 08:15-0400Body olnrkn827.[address] [place], [place] 9965307-22-2025 08:22-0400Body hpywqb459.9 cmBelen Langston MD Work Phone: [facility]07-22-2025 08:22-0400Body mass index (BMI) [Ratio]60.2 kg/h5KwdtyagfmyfBelen Langston MD Work Phone: [facility]07-22-2025 08:22-0400Body dpspod143.4 kgBelen Langston MD Work Phone: [facility]06-05-2025 08:28-0400Body yztfjf320.88 cmMet[facility]06-05-2025 08:28-0400Body mass index (BMI) [Ratio]61.2 kg/y4GuaodixtiMetrohealth Parma Medical Center06-05-2025 08:28-0400Body qxhjyzliqes57.6 [degF][facility]06-05-2025 08:28-0400Body bjuzxj646.02 kgMetrohealth Parma Medical Center06-05-2025 08:28-0400Diastolic blood mlaykmqm72 mm[Hg][facility] 10-13-2024 08:28-0400Heart rate97 /minMetrohealth Parma Medical Center 10-13-2024 08:28-9857MkR0% (BldA) [Mass fraction]97 %[facility]06-05-2025 08:28-0400Systolic blood ncvwvbry459 mm[Hg][facility]05-15-2025 09:01-0400Body uwokad371.88 cmMetrohealth [facility]ma Medical Center05-15-2025 09:01-0400Body mass index (BMI) [Ratio]60.5 kg/m2 [facility]05-15-2025 09:01-0400Body eieiunixnkp19.9 [degF][facility]05-15-2025 09:01-0400Body xaubnc222.3 kg [facility]05-15-2025 09:01-0400Diastolic blood mm[Hg][facility]05-15-2025 09:01-0400Heart hwjx935 /min [facility]05-15-2025 09:01-0925FtZ0% (BldA) [Mass fraction]97 %[facility]05-15-2025 09:01-0400Systolic blood zegxvywj824 mm[Hg][facility]04-23-2025 13:04-0400 Body apftpi685.88 cmMetrohealth Parma Medical Center04-23-2025 13:04-0400Body mass index (BMI) [Ratio]59.8 kg/x8KzawxsmbvMetrohealth Parma Medical Center04-23-2025 13:04-0400Body [degF][facility]04-23-2025 13:04-0400Body vzbgad437.03 kgMetrohealth Parma Medical Center04-23-2025 13:04-0400Diastolic blood ehlieskz55 mm[Hg][facility] 08-31-2024 13:04-0400Heart siyp007 /minMetrohealth Parma Medical Center 08-31-2024 13:04-9338SvR6% (BldA) [Mass fraction]96 %[facility]04-23-2025 13:04-0400Systolic blood bsvuxtoe516 mm[Hg][facility]02-25-2025 23:17-0500Diastolic blood lylynumd06 mm[Hg]Nato Lezama [address] [place], [place] 215[address]02-25-2025 23:17-0500Heart rate96 /minNato Lezama [address] [place], [place] 2153902-25-2025 23:17-0500 Respiratory rate18 /minNato Lezama [address] [place], [place] [address]02-25-2025 23:17-3011JmK8% (BldA) [Mass fraction]95 %Nato Lezama [address]02-25-2025 23:17-0500 Systolic blood ixbavizb107 mm[Hg]Nato Lezama [address] [place], [place] 2153902-25-2025 21:47-0500Body .7 [degF]Nato Lezama [address] [place], [place] 2153902-25-2025 21:47-0500 Diastolic blood wpmalubu46 mm[Hg]Nato Lezama [address] [place], [place] 2153902-25-2025 21:47-0500Heart rate96 /Joanie Lezama [address] [place], [place] 2153902-25-2025 21:47-0500 Respiratory rate18 /Joanie Lezama [address] [place], [place] 2153902-25-2025 21:47-7955QrU5% (BldA) [Mass fraction]97 %Nato Lezama [address] [place], [place] 2153902-25-2025 21:47-0500 Systolic blood zakhlnfd405 mm[Hg]Nato Lezama [address] [place], [place] 2153902-06-2025 09:58-0500Body dakldh515.88 cmLeatha Zavalarbacher [employer]PER PLATE PRINTER Work Phone: 1(676)[address] [employer], [place] 2076202-06-2025 09:58-0500 Body mass index (BMI) [Ratio]59.1 kg/u8CsxxiromLeatha Zavalarbacher [employer]PER PLATE PRINTER Work Phone: 1(516)[address] [employer], [place] 2076202-06-2025 09:58-0500 Body stjpdifwiss06.4 [degF]Leatha Zavalabrigidr [employer] PLATE PRINTER Work Phone: 1(009)[address] [employer], [place] 2076202-06-2025 09:58-0500 Body .76 kgLeatha Zavalarbacher [employer]PER PLATE PRINTER Work Phone: 1(727)[address] [employer], [place] 2076202-06-2025 09:58-0500 Diastolic blood mxiodhpv54 mm[Hg]Leatha Patr [employer] PLATE PRINTER Work Phone: 1(770)[address] [employer], [place] 2076202-06-2025 09:58-0500 Heart zegh604 /minLeatha Zavalarbacher [employer]PER PLATE PRINTER Work Phone: 1(613)[address] [employer], [place] 2076202-06-2025 09:58-0500 Respiratory rate18 /minLeatha Quintanillaacher COPPER PLATE PRINTER Work Phone: 1(250)[address] [employer], [place] 2076202-06-2025 09:58-0500 SaO2% (BldA) [Mass fraction]97 %Leatha Zavalabrigidr [employer]PER PLATE PRINTER Work Phone: 1(229)[address] [employer], [place] 2076202-06-2025 09:58-0500 Systolic blood hsrabkku201 mm[Hg]Leatha Zavalamarlencodyr [employer]PER PLATE PRINTER Work Phone: 1(816)[address] [employer], [place] 2076212-09-2024 08:25-0500 Body rdnied791.88 cmLeatha Zavalarbacher COPPER PLATE PRINTER Work Phone: 1(365)[address] [employer], [place] 2076212-09-2024 08:25-0500 Body mass index (BMI) [Ratio]58.1 kg/n1LrmwuwvgLeatha Zavalarbacher COPPER PLATE PRINTER Work Phone: 1(785)[address]12-09-2024 08:25-0500 Body ygagdqobotx00.6 [degF]Leatha Emily [employer]PER PLATE PRINTER Work Phone: 1(291)[address] [employer], [place] 2076212-09-2024 08:25-0500 Body irnyfn523.27 kgLeatha Zavalarbacher COPPER PLATE PRINTER Work Phone: 1(850)[address] [employer], [place] 2076212-09-2024 08:25-0500 Diastolic blood mfvusojh45 mm[Hg]Leatha Socorroacher COPPER PLATE PRINTER Work Phone: 1(999)[address] [employer], [place] 2076212-09-2024 08:25-0500 Heart rate89 /minMercedesbelkisifer Lucasrbacher COPPER PLATE PRINTER Work Phone: 1(009)[address] [employer], [place] 2076212-09-2024 08:25-0500 SaO2% (BldA) [Mass fraction]98 %Leatha Emily [employer]PER PLATE PRINTER Work Phone: 1(577)[address] [employer], [place] 2076212-09-2024 08:25-0500 Systolic blood inxnosgb669 mm[Hg]Leatha Socorroacher COPPER PLATE PRINTER Work Phone: 1(062)[address] [employer], [place] 2076211-12-2024 11:15-0500 Diastolic blood uxdsurwz40 mm[Hg]Leatha Socorroacher COPPER PLATE PRINTER Work Phone: 1(116)[address] [employer], [place] 2076211-12-2024 11:15-0500 Heart rate84 /minJennifer Lucasrbacher COPPER PLATE PRINTER Work Phone: 1(365)[address] [employer], [place] 2076211-12-2024 11:15-0500 Respiratory rate16 /minJennifer Rohrbacher COPPER PLATE PRINTER Work Phone: 1(756)[address] [employer], [place] 2076211-12-2024 11:15-0500 SaO2% (BldA) [Mass fraction]99 %Leatha Stewartr [employer]PER PLATE PRINTER Work Phone: 1(898)[address] [employer], [place] 2076211-12-2024 11:15-0500 Systolic blood imcstyil366 mm[Hg]Leatha Diza [employer]PER [employer]ATE PRINTER Work Phone: [facility]11-12-2024 09:53-0500 Body huedat093.88 cmLeatha Diaz [employer]PER PLATE PRINTER Work Phone: [facility]11-12-2024 09:53-0500 Body ncydny704.43 kgLeatha Diaz [employer]PER PLATE PRINTER Work Phone: [facility]10-17-2024 15:32-0400 Body .88 cmMet[facility]10-17-2024 15:32-0400Body mass index (BMI) [Ratio]57.1 kg/c2FemxfbvuvMetrohealth Parma Medical Center10-17-2024 15:32-0400Body gvjgfchruns48.1 [degF][facility]10-17-2024 15:32-0400Body cktodh225.96 kgMet[facility]health [facility] Center10-17-2024 15:32-0400Diastolic blood nmbcogbj42 mm[Hg][facility] 02-25-2024 15:32-0400Heart rate73 /minMetrohealth [facility]ma Medical Center 02-25-2024 15:32-5653TiF8% (BldA) [Mass fraction]97 %[facility]10-17-2024 15:32-0400Systolic blood tvynjwww023 mm[Hg][facility]10-01-2024 09:01-0400Body xuyyag971.88 cmMet[facility]10-01-2024 09:01-0400Body mass index (BMI) [Ratio]57.4 kg/m2 [facility]10-01-2024 09:01-0400Body ahfucx220.09 kg [facility]10-01-2024 09:01-0400Diastolic blood vxpexgqw94 mm[Hg][facility]10-01-2024 09:01-0400Heart smnq509 /min [facility]10-01-2024 09:01-0400Respiratory rate20 /min [facility]10-01-2024 09:01-7492CoH2% (BldA) [Mass fraction]94 %[facility]10-01-2024 09:Systolic blood jfgyhqmx252 mm[Hg][facility]09-19-2024 10: Body qinsze181.88 cmMet[facility]09-19-2024 10:Body mass index (BMI) [Ratio]57.1 kg/f3CkghpezmtMetrohealth Parma Medical Center09-19-2024 10:Body jdblbiuejiy50.8 [degF][facility]09-19-2024 10:Body udgsxs336.96 kgMet[facility]health [facility] Center09-19-2024 10:Diastolic blood nirerkyl03 mm[Hg][facility] 01-28-2024 10:Heart yeji329 /minMetrohealth Parma Medical Center 01-28-2024 10:8841SrT7% (BldA) [Mass fraction]96 %[facility]09-19-2024 10:Systolic blood ihiihytm719 mm[Hg][facility]09-17-2024 10:040Body ckucyt380.9 cmBelen Langston MD Work Phone: [facility]09-17-2024 10:20-0400Body mass index (BMI) [Ratio]56.39 kg/y2RpgytnyqvnlBelen Langston MD Work Phone: [facility]09-17-2024 10:040Body .61 kgBelne Langston MD Work Phone: [facility]09-17-2024 10:20-0400Diastolic blood ppqcpvri57 mm[Hg]Belen Langston MD Work Phone: [facility]09-17-2024 10:20-0400Heart rate 108 /Jaron Langston MD Work Phone: [facility]09-17-2024 10:20-0400Systolic blood mm[Hg]Belen Langston MD Work Phone: [facility]08-22-2024 10:31-0400Body .88 cmMet[facility]08-22-2024 10:31-0400Body mass index (BMI) [Ratio]56.2 kg/k8VxicujcybMetrohealth Parma Medical Center08-22-2024 10:31-0400Body tyrgnn529.24 kgMet[facility]08-22-2024 10:31-0400Diastolic blood grmamjta55 mm[Hg][facility] 12-31-2023 10:31-0400Heart rate97 /minMet[facility]health [facility] Center 12-31-2023 10:31-3678SsJ7% (BldA) [Mass fraction]98 %[facility]08-22-2024 10:31-0400Systolic blood bouboowi436 mm[Hg][facility]07-31-2024 11:15-0400Body aereit992.88 cmMet[facility]07-31-2024 11:15-0400Body mass index (BMI) [Ratio]54.8 kg/m2 [facility]07-31-2024 11:15-0400Body svflod901.42 kg [facility]07-31-2024 11:15-0400Diastolic blood mm[Hg][facility]07-31-2024 11:15-0400Heart atig635 /min [facility]07-31-2024 11:15-0400Respiratory rate20 /min [facility]07-31-2024 11:15-6898YvE3% (BldA) [Mass fraction]98 %[facility]07-31-2024 11:15-0400Systolic blood ocmyzamu304 mm[Hg][facility]07-01-2024 08:32-0400 Body ynnzyg021.88 Krista Diaz Work Phone: [facility]07-01-2024 08:32-0400 Body mass index (BMI) [Ratio]53.8 kg/m2REUBEN Diaz Work Phone: 1(419)[address] [employer], [place] 2076207-01-2024 08:32-0400 Body vzobuz974.07 kgAPRJyoti Zhang Lucasrbacher Work Phone: 1(146)[address]07-01-2024 08:32-0400 Diastolic blood hjxzinaf01 mm[Hg][employer]ATE PRINTER Leatha Lucasrbacher Work Phone: 1(642)[address]07-01-2024 08:32-0400 Heart rate91 /minAPRJyoti Leatha Lucasrbacher Work Phone: 1(233)[address] [employer], [place] 2076207-01-2024 08:32-0400 SaO2% (BldA) [Mass fraction]98 %[employer]ATE PRINTER Leatha Lucasrbacher Work Phone: 1(921)[address] [employer], [place] 2076207-01-2024 08:32-0400 Systolic blood mm[Hg]REUBEN Leatha Lucasrbacher Work Phone: 1(401)[address] [employer], [place] 2076206-13-2024 09:32-0400 Body vzumqn339.88 cmAPRJyoti Zhang Lucasrbacher Work Phone: 1(109)[address] [employer], [place] 2076206-13-2024 09:32-0400 Body mass index (BMI) [Ratio]54.5 kg/m2APRJyoti Zavalarbacher Work Phone: 1(043)[address] [employer] 2076206-13-2024 09:32-0400 Body oeuyzk845.37 kgAPRJyoti Leatha Lucasrbacher Work Phone: 1(047)[address] [employer], [place] 2076206-13-2024 09:32-0400 Diastolic blood mm[Hg]REUBEN Leatha Lucasrbacher Work Phone: 1(739)[address] [employer], [place] 2076206-13-2024 09:32-0400 Heart ocyj030 /minAPRJyoti Leatha Lucasrbacher Work Phone: 1(773)[address]06-13-2024 09:32-0400 Respiratory rate20 /minAPRJyoti Leatha Lucasrbacher Work Phone: 1(458)893-[address] [place], [place] 4468306-13-2024 09:32-0400 SaO2% (BldA) [Mass fraction]95 %COPPER PLATE PRINTERJyoti Zhang Socorroacher Work Phone: 1(767)355-[address] [place], [place] 4468306-13-2024 09:32-0400 Systolic blood mrisqcii304 mm[Hg][employer]ATE PRINTER Leatha Lucasrbacher Work Phone: 1(898)[address]06-03-2024 15:58-0400 Body nuduzj768.88 cmAPRJyoti Leatha Lucasrbacher Work Phone: 1(177)[address] [employer] 2076206-03-2024 15:58-0400 Body mass index (BMI) [Ratio]54.2 kg/m2APRJyoti Zhang Lucasrbacher Work Phone: 1(916)[address] [employer] 2076206-03-2024 15:58-0400 Body pxcebk911.43 kgAPRJyoti Leatha Socorroacher Work Phone: 1(279)[address] [employer] 2076206-03-2024 15:58-0400 Diastolic blood giavrzzz19 mm[Hg][employer]ATE PRINTER Leatha Socorroacher Work Phone: 1(314)[address] [employer] 2076206-03-2024 15:58-0400 Heart nsin322 /minAPRJyoti Zhang Lucasrbacher Work Phone: 1(273)[address] [employer] 2076206-03-2024 15:58-0400 SaO2% (BldA) [Mass fraction]98 %[employer] PRINTER Leatha Socorroacher Work Phone: 1(402)[address]06-03-2024 15:58-0400 Systolic blood wjuhionl683 mm[Hg]REUBEN Leatha Socorroacher Work Phone: 1(085)[address]05-16-2024 14:27-0400 Body nxobjk556.88 cmASILVIANO Leatha Lucasrbacher Work Phone: 1(337)[address]05-16-2024 14:27-0400 Body mass index (BMI) [Ratio]53.4 kg/m2APRJyoti Zavalarbacher Work Phone: 1(273)[address]05-16-2024 14:27-0400 Body kfksam910.71 kgAPRJyoti Zavalarbacher Work Phone: 1(547)[address]05-16-2024 14:27-0400 Diastolic blood zpmojrli52 mm[Hg][employer] PRINTER Leatha Zavalarbacher Work Phone: 1(209)[address]05-16-2024 14:27-0400 Heart brhq914 /minAPRJyoti Zavalarbacher Work Phone: 1(867)[address] [employer], [place] 2076205-16-2024 14:27-0400 SaO2% (BldA) [Mass fraction]98 %COPPER PLATE PRINTERJyoti Zavalarbacher Work Phone: 1(876)[address] [employer], [place] 2076205-16-2024 14:27-0400 Systolic blood zsatwfnm702 mm[Hg][employer] PRINTER Leatha Lucasrbacher Work Phone: 1(817)[address]05-02-2024 10:28-0400 Body onawtb103.88 cmAPRJyoti Zavalarbacher Work Phone: 1(425)[address] [employer], [place] 2076205-02-2024 10:28-0400 Body mass index (BMI) [Ratio]54.3 kg/m2APRJyoti Zavalarbacher Work Phone: 1(324)[address]05-02-2024 10:28-0400 Body oufvhj431.6 kgAPRJyoti Zavalarbacher Work Phone: 1(859)[address] [employer], [place] 2076205-02-2024 10:28-0400 Diastolic blood aqslqdnz28 mm[Hg][employer] PRINTER Leatha Lucasrbacher Work Phone: 1(521)[address] [employer], [place] 2076205-02-2024 10:28-0400 Heart jhhk831 /minAPRJyoti Leatha Lucasrbacher Work Phone: 1(392)[address]05-02-2024 10:28-0400 Respiratory rate20 /minAPRJyoti Zavalarbacher Work Phone: [facility]05-02-2024 10:28-0400 SaO2% (BldA) [Mass fraction]97 %REUBEN Zavalarbacher Work Phone: [facility]05-02-2024 10:28-0400 Systolic blood ktlykgxu312 mm[Hg]COPPER PLATE PRINTERJyoti Zhang Lucasrbacher Work Phone: [phone]04-18-2024 10:38-0400 Body vemlrc770.88 cmAPRJyoti Leatha Quintanillaacher Work Phone: 1(339)945-[address] [place], [place] 4468304-18-2024 10:38-0400 Body mass index (BMI) [Ratio]54.5 kg/m2APRJyoti Zhang Lucasrbacher Work Phone: [phone]04-18-2024 10:38-0400 Body bveeky995.34 kgAPRJyoti Zavalarbacher Work Phone: [phone]04-18-2024 10:38-0400 Diastolic blood zrisyyjz20 mm[Hg]REUBEN Quintainllaacher Work Phone: [facility]04-18-2024 10:38-0400 Heart swpx381 /minAPRJyoti Zavalarbacher Work Phone: [phone]04-18-2024 10:38-0400 SaO2% (BldA) [Mass fraction]98 %REUBEN Zavalarbacher Work Phone: [facility]04-18-2024 10:38-0400 Systolic blood lzcyjsyd847 mm[Hg]REUBEN Zavalarbacher Work Phone: [facility]04-04-2024 10:02-0400 Body wybwvr329.88 cmDO Baljit House Work Phone: [facility]04-04-2024 10:02-0400 Body mass index (BMI) [Ratio]55.2 kg/m2DO Baljit Pisano Work Phone: 1(843)154-[address] [place], [place] 2454904-04-2024 10:02-0400 Body flrsei534.75 kgDO Baljit Pisano Work Phone: 0(576)224-[address] [place], [place] 2454904-04-2024 10:02-0400 Diastolic blood wphyyvpg04 mm[Hg]DO Baljit Pisano Work Phone: 1(445)345-[address] [place], [place] 2454904-04-2024 10:02-0400 Heart rate99 /Jigna Pisano Work Phone: 1(266)204-[address] [place], [place] 2454904-04-2024 10:02-0400 Respiratory rate20 /Jigna Pisano Work Phone: 1(071)[address]04-04-2024 10:02-0400 SaO2% (BldA) [Mass fraction]96 %DO Baljit Pisano Work Phone: 1(312)231-[address] [place], [place] 2454904-04-2024 10:02-0400 Systolic blood plpkahoj403 mm[Hg]DO Baljit Pisano Work Phone: 1(549)398-[address] [place], [place] 2454903-12-2024 09:16-0400 Body .9 cmPriya Shendge V, PA Work Phone: [facility] CenterLIFEMODELER Bgvffj57-74-6579 09:16-0400Body mass index (BMI) [Ratio]55.2 kg/z8Iavkp Shendge V, PA Work Phone: [facility] Qdryeo20-87-9851 09:16-0400Body tmadwa361.61 kgPriya Shendge V, PA Work Phone: [facility] Bqadjs65-56-8246 09:16-0400Heart rate 85 /minPriya Shendge V, PA Work Phone: [facility] CenterLIFEMODELER Bclkaj48-74-9147 09:16-0400 Respiratory rate16 /minPriya Shendge V, PA Work Phone: [facility] HospitalLotedasc ChannelEyes Mdyljr34-74-3101 13:25-0500Body .42 cmDO Baljit Pisano Work Phone: 1(252)[address]02-27-2024 13:25-0500 Body mass index (BMI) [Percentile] Per age and sex99.9 %DO Baljit Pisano Work Phone: 5(473)0-[address] [place], [place] 2454902-27-2024 13:25-0500 Body mass index (BMI) [Ratio]53.1 kg/m2DO Baljit Pisano Work Phone: [phone](330)[address]02-27-2024 13:25-0500 Body qvflfu288.79 kgDO Baljit Pisano Work Phone: 0(139)[address] [place], [place] 3690402-27-2024 13:25-0500 Diastolic blood yxlzgcpl80 mm[Hg]DO Baljit Pisano Work Phone: 2(243)[address]02-27-2024 13:25-0500 Heart rate97 /minDO Baljit Pisano Work Phone: 5(754)[address] [place], [place] 3690402-27-2024 13:25-0500 SaO2% (BldA) [Mass fraction]98 %DO Baljit Pisano Work Phone: 8(100)[address]02-27-2024 13:25-0500 Systolic blood mm[Hg]DO Baljit Pisano Work Phone: 2(690)044-[address] [place], [place] 2454901-16-2024 14:15-0500 Body ojabgo157.42 cmImad Asaad Other [facility]01-16-2024 14:15-0500 Body mass index (BMI) [Ratio]51.45 kg/m2Imad Asaad Other [place] [employer] Other 01-16-2024 14:15-0500Body hyahmc567.9 kgImad Asaad Other [facility]12-12-2023 13:45-0500 Body bksqna178.42 cmImad Asaad Other [employer] Other 12-12-2023 13:45-0500Body mass index (BMI) [Ratio] 51.84 kg/m2Imad Asaad Other [employer] Other 12-12-2023 13:45-0500Body ajyilx304.26 kgImad Asaad Other [employer] Other 12-12-2023 13:45-0500Diastolic blood gzwbezvn88 mm[Hg] Imad Asaad Other [employer] Other 12-12-2023 13:45-0500Systolic blood elkwsbhd923 mm[Hg] Imad Asaad Other [employer] Other 11-09-2023 13:00-0500Body .42 cmImad Asaad Other [employer] Other 11-09-2023 13:00-0500Body mass index (BMI) [Ratio] 51.87 kg/m2Imad Asaad Other [employer] Other 11-09-2023 13:00-0500Body elhcvu623.36 kgImad Asaad Other [employer] Other 11-09-2023 13:00-0500Diastolic blood lzffrhog90 mm[Hg] Imad Asaad Other [employer] Other 11-09-2023 13:00-0500Systolic blood tsqfahod06 mm[Hg] Imad Asaad Other [place] [facility] Other 09-27-2022 10:55-0400Body urkufi933.07 cmAallyn King Other [employer] Other 09-27-2022 10:55-0400Body mass index (BMI) [Ratio] 44.55 kg/w7GffctDevika King Other [employer] Other 09-27-2022 10:55-0400Body sjxpecawprb97.5 [degF]Devika King Other [employer] Other 09-27-2022 10:55-0400Body qczssa493.88 kgDevika King Other [facility] Other 09-27-2022 10:55-0400Respiratory rate18 /minDevika King Other [employer] Other 09-27-2022 10:55-0284ReU1% (BldA) [Mass fraction]97 % Devika King Other [employer] Other Encounters Encounter DateEncounter TypeCare ProviderFacilityStart: 03-17-2025 End: 91-86-7264Fztolpemv encounterMichelle Tremayne RMAProMedica Physicians Genito- Urinary SurgeonsStart: 03-16-2025 End: 81-52-2946Gggicdlaa encounterDamirian Shell MD Work Phone: [facility] - SurgeryStart: 03-16-2025 End: 14-35-6076Aausnysxks and management of inpatientDAMIRIAN CALLEJASRiverside Methodist Hospital HospitalStart: 03-13-2025 End: 37-41-3264Bcgxim outpatient visit 10 minutesFranci Byrd COPPER PLATE PRINTER-DESULPHURING OPERATOR Work Phone: [facility] General SurgeryComment on above: Pilonidal disease (Primary Dx)Start: 03-13-2025 End: 28-06-5354vfobrkepdfOAPBUBAKlickitat Valley Health [facility] Start: 03-02-2025 End: 77-84-0598Awrttbr encounter procedureMetro Pat Provider 2[facility] ChildrenComment on above:SpermatoceleStart: 03-02-2025 End: 92-36-3159rbbyznsoarGJHRK E FUMOProMedica Stevens HospitalStart: 03-01-2025 End: 31-38-5995tyipwikwvxOqfbhdsn Rohrbacher COPPER PLATE PRINTER Work Phone: -FPG [facility] Hospitaltart: 03-01-2025 End: 77-42-1834Rlzltpm encounter procedureLeatha Diaz APRN DESULPHURING OPERATOR-[facility] Work Phone: Start: 02-13-2025 End: 14-92-1127Qhvzrq outpatient visit 10 minutesFranci Rashid Carson COPPER PLATE PRINTER-DESULPHURING OPERATOR Work Phone: [facility] General SurgeryComment on above: Pilonidal disease (Primary Dx)Start: 02-13-2025 End: 59-47-4522igbdsweyqeVVDYHQKKlickitat Valley Health [facility] Start: 01-24-2025 End: 57-82-4088Twbnssxpz encounterGail Shell MD Work Phone: [facility]-Urinary SurgeonsStart: 01-24-2025 End: 37-81-3605geiefnskcrYSQCW E FUMOProMedica Stevens HospitalStart: 01-24-2025 End: 21-39-2728Ysdydz outpatient visit 25 minutesGail Shell MD Work Phone: [facility] Genito-Urinary SurgeonsComment on above:Epididymal cyst (Primary Dx)Start: 01-19-2025 End: 40-67-6541Jzjexjocv encounterBere Dang RMAProMedica Physicians General SurgeryStart: 01-16-2025 End: 92-12-0412Uptfyz follow up visit related to original Tete Byrd COPPER PLATE PRINTER-DESULPHURING OPERATOR Work Phone: [facility] Physicians General SurgeryComment on above: Pilonidal disease (Primary Dx)Start: 01-16-2025 End: 96-14-3335imdxhbvrkjEZDHXNC Rachid WILMOTANDREASt. Mary's Medical Center [facility] Start: 01-11-2025 End: 44-43-4522Bmtxzr outpatient new 30 minutesHeather Montenegro COPPER PLATE PRINTER-DESULPHURING OPERATOR Work Phone: [facility] Genito-Urinary SurgeonsComment on above:Epididymal cyst (Primary Dx); Right hydroceleStart: 01-11-2025 End: 07-15-0773wdsevagktpSRXSMSL [facility] HospitalStart: 01-06-2025 End: 87-22-6421Qeasocvfl encounterEse Reyna [facility] Physicians General SurgeryStart: 01-05-2025 End: 76-60-6449Ogrutl OnlyDean Elaine Wilbert DO Work Phone: [facility] Surgeons Sign InStart: 53-82-6042Wfx-patient / Non-visitCatherine Apolinar [facility] Work Phone: Start: 01-03-2025 End: 06-99-1485Snonoldjo encounterEleanor Kruse [facility] Physicians General SurgeryStart: 01-02-2025 End: 54-68-7085Ktsyfkarke and management of inpatientJENNIFER SOCORROACHER Doctors Hospitaltart: 12-30-2024 End: 16-82-0837Sgcvssumj encounterBere Dang [facility] Physicians General SurgeryStart: 12-29-2024 End: 74-17-2997Sodbsswze department patient visitMERCEDESNNMARYANA FENTONroMedelmo Woden HospitalStart: 12-15-2024 End: 12-83-1070Bbxkbqw encounter procedurePmh Pre-Admission Testing [address] [place] [address] - Pre AdmitStart: 38-63-8066Mmrmkgkfk for other preprocedural examinationDAMIRIAN MCELROYProMedica [facility] Medical Centertart: 12-15-2024 End: 79-88-5105wuekihbmlfPGYUHRFD ROHRBACHERPUniversity Hospitals Portage Medical Centertart: 11-29-2024 End: 11-00-5359Ndudny outpatient visit 15 minutesBelen Langston MD Work Phone: [facility] SurgeryComment on above: Pilonidal disease (Primary Dx)Start: 11-29-2024 End: 76-69-7162smkcgrcwraDVADJBOAZRE M [facility] Start: 10-13-2024 End: 51-53-7139lvmsudshirSmateylnlUC Health Work Phone: Start: 10-13-2024 End: 36-34-9468Dipousj encounter procedureFiruva health [facility] hospital Physician [facility] Work Phone: Start: 09-22-2024 End: 46-80-5539lmelyfvasjRmkmuvzmpLake [facility] Work Phone: Start: 09-22-2024 End: 46-21-7299Psuluuu encounter procedureFiru[facility] Work Phone: Start: 08-31-2024 End: 78-62-5768hsxedyytzkIgnlyudsgLake County [facility] Work Phone: Start: 08-31-2024 End: 20-64-5633Foctemw encounter procedureFiruva health [facility] hospital [facility] Work Phone: Start: 08-29-2024 End: 17-04-2158dletoshqmvZOUOPOWG ROHRBACHERProMedRanken [facility] HospitalStart: 08-11-2024 End: 10-27-0694ckbhuibvqpTYLCXZUD ROHRBACHERProMedSuburban Medical Centertart: 07-28-2024 End: 39-47-1281ukumorqxhmQNLPRAWW ROHRBACHERProMedRanken [facility] HospitalStart: 07-26-2024 End: 51-69-1727hqtffnydvxDNUU C BISOSKIProMedica Stevens HospitalStart: 07-11-2024 End: 60-83-2272Ipnqlmvbsz and management of inpatientJENNMARYANA QUINTANILLAACHER [facility] HospitalStart: 03-78-4512Sqh-patient / Non-visitCritical Access Hospital [facility] Work Phone: Start: 07-05-2024 End: 31-01-1929Cwcocsgto department patient visitJorosi Chapmane [facility] Start: 07-05-2024 End: 13-12-9623Rcnedrkbr department patient visitLEATHA ZAVALARBACHERProMedica Manila HospitalStart: 06-16-2024 End: 16-27-1763ntlkyhiopgFksnijji Lucasrbacher COPPER PLATE PRINTER Work Phone: [facility] Work Phone: Start: 06-16-2024 End: 77-54-9226Iykzibl encounter procedureJennifer Lucasrbacher COPPER PLATE PRINTER Work Phone: [facility] Jacek Work Phone: Start: 04-26-2024 End: 03-86-1880nsgxwoautbXUEUSDCQFBMSt. Clare Hospital [facility] Start: 04-18-2024 End: 01-05-0105Krdppcf encounter procedureJennifer Lucasrbacher COPPER PLATE PRINTER Work Phone: [facility] Work Phone: Start: 86-67-2194Mir-patient / Non-visitJennifer Lucasrbacher COPPER PLATE PRINTER Work Phone: [facility] Gastroenterology Work Phone: Start: 03-22-2024 End: 57-56-4767Tzwnrdbej to same day surgery centerJennmaryana Zavalarbacher COPPER PLATE PRINTER Work Phone: [facility] Work Phone: Start: 03-22-2024 End: 02-42-7381fetbsxqcpwVoyvhgzv Rohrbacher COPPER PLATE PRINTER Work Phone: [facility] Work Phone: Start: 02-25-2024 End: 16-95-3139hkbjrkgiiqJbakebgbxUC Health Work Phone: Start: 02-25-2024 End: 24-49-5947Huncjft encounter procedureCritical Access Hospital [facility] Work Phone: Start: 02-09-2024 End: 30-80-5084tjfhgecmdgIyqfqcelcUC Health Work Phone: Start: 02-09-2024 End: 33-16-3525Soxxiao encounter procedureCritical Access Hospital Physician [facility] Work Phone: Start: 01-28-2024 End: 56-10-4767caetgsonddFjnncgnglUC Health Work Phone: Start: 01-28-2024 End: 04-56-2209Vjpdkmy encounter procedureCritical Access Hospital [facility] Work Phone: Start: 01-26-2024 End: 22-56-7387Hhxpog outpatient new 30 minutesBelen Langston MD Work Phone: [facility] General SurgeryComment on above: Pilonidal abscess (Primary Dx)Start: 01-24-2024 End: 77-78-5808Aaqisttcx department patient visitJENNMercy Health Perrysburg Hospitaltart: 01-21-2024 End: 78-80-5448Untpxphsj department patient visitJELake County Memorial Hospital - Westtart: 12-31-2023 End: 62-33-0808xrlmxehyaqVaosweyfiUC Health Work Phone: Start: 12-31-2023 End: 73-20-3076Fwxucru encounter procedureCritical Access Hospital Physician [facility] Work Phone: Start: 12-15-2023 End: 29-18-8914shmkzswmvwZlwxpwpidLake County [facility] Work Phone: Start: 12-15-2023 End: 27-54-4523Nbmgbsd encounter procedureFiru[facility] Physician [facility] Work Phone: Start: 12-09-2023 End: 00-03-8148qiyzumrkweItyhvdesyLake County Memorial Hospital [facility] Work Phone: Start: 12-09-2023 End: 04-32-5877Texeznb encounter procedureCritical Access Hospital Physician [facility] Work Phone: Start: 11-09-2023 End: 24-20-1234fstyzohxxyTVQV Jennifer Rohrbacher Work Phone: [facility] Work Phone: Start: 11-09-2023 End: 77-74-7946Vzdtpmz encounter procedureREUBEN Diaz Work Phone: [facility] Work Phone: Start: 10-22-2023 End: 59-71-9938rwahajyykpPKXU Jennifer Rohrbacher Work Phone: [facility] Work Phone: Start: 10-22-2023 End: 41-41-4639Zjwrmzw encounter procedureREUBEN Diaz Work Phone: [facility] Work Phone: Start: 10-12-2023 End: 34-65-9287zyuliwatijPMCC Jennifer Rohrbacher Work Phone: [facility] Work Phone: Start: 10-12-2023 End: 39-45-2319Ygretlm encounter procedureAPRJyoti Diaz Work Phone: [facility] Work Phone: Start: 09-24-2023 End: 77-99-8132Uxgpnti encounter procedureREUBEN Rmniparveen Diaz Work Phone: [facility] Work Phone: Start: 09-10-2023 End: 97-97-8959Nipnqoo encounter procedureAPRJyoti Diaz Work Phone: [facility] Work Phone: Start: 08-27-2023 End: 17-18-9644fbjggqnyyxXWOZ Jennifer Rohrbacher Work Phone: [facility] Work Phone: Start: 08-27-2023 End: 83-19-6903Ievwkhc encounter procedureAPRJyoti Diaz Work Phone: [facility] GroupK[facility] Work Phone: Start: 08-19-2023 End: 77-94-3271cmwogsqzfxKNMN Jennifer Rohrbacher Work Phone: [facility] Work Phone: Start: 08-19-2023 End: 07-48-8509Ygaesca encounter procedureAPRJyoti Diaz Work Phone: [facility] Work Phone: Start: 08-13-2023 End: 06-04-0254Hvrfedu encounter procedureDO Baljit [place] Work Phone: [facility] [place] Work Phone: Start: 08-13-2023 End: 49-03-3718hrxvqwrhdlYB [facility] Work Phone: [facility] Work Phone: Start: 08-13-2023 End: 84-86-9013nfewqblkyeSS Baljit Pisano Work Phone: [facility] Work Phone: Start: 08-13-2023 End: 98-44-9341Lkoklfy encounter procedureDO Baljit Pisano Work Phone: [facility] Work Phone: Start: 55-99-2308Iyq-patient / Non-visitDO Baljit Pisano Work Phone: [facility] Work Phone: Start: 07-21-2023 End: 48-68-0262Kcdnlf outpatient new 30 minutesMagalie COFFEY Work Phone: [facility] RheumatologyComment on above: Positive TENA (antinuclear antibody) (Primary Dx); Chronic fatigue; Pain in both hands; Bilateral carpal tunnel syndromeStart: 14-18-8041Yan-patient / Non-visitDO Baljit Pisano Work Phone: [facility] Work Phone: Start: 07-07-2023 End: 04-35-1720Aijkhqs encounter procedureDO Baljit Pisano Work Phone: [facility] Work Phone: Start: 05-26-2023 End: 52-82-1386upyfwxeotyPepx Asaad Other [facility] EDUS Other Start: 48-09-7438Qhyibb outpatient visit 25 minutes Imad AsaadFPG GastroenterologyStart: 05-26-2023 End: 29-12-5667Wuspvnu encounter procedureDO Baljit Pisano Work Phone: [facility]-Start: 05-19-2023 End: 64-73-4078Vsaaloi encounter procedureDO Baljit Pisano Work Phone: [facility] Work Phone: Start: 05-19-2023 End: 65-01-8316cqtoostmbvPC Baljit Pisano Work Phone: [facility] Work Phone: Start: 04-29-2023 End: 74-61-3926pvzwzbzecjNJMJQFT P HOUSEFacility:[facility] ClinicStart: 04-27-2023 End: 29-29-3891cffsihorjjBczu Asaad Other [employer] Other Start: 23-80-4786Nlitrbwiw encounterImad AsaadFPG GastroenterologyStart: 04-21-2023 End: 79-51-1956Thpkyxq encounter procedureDO Baljit Pisano Work Phone: [facility] [place] Work Phone: Start: 04-21-2023 End: 99-96-0470vkvhzttwsaBT Baljit Pisano Work Phone: [facility] Work Phone: Start: 91-57-1568Qsuxry outpatient new 45 minutesImad AsaadFPG GastroenterologyStart: 04-07-2023 End: 75-33-0686satakmrqczYOVGEBM P HOUSEFacility:[facility] ClinicStart: 04-01-2023 End: 68-43-2947ypijhckngiCY Baljit Pisano Work Phone: [facility] Work Phone: Start: 04-01-2023 End: 89-40-5860Xoxskev encounter procedureDO Baljit Pisano Work Phone: [facility] Work Phone: Start: 03-23-2023 End: 03-70-9721vazzptghsoAbmz Asaad Other [employer] Other Start: 66-35-0365Ckvkdtatc encounterImad AsaadFPG GastroenterologyStart: 92-51-9075Qfppia outpatient new 45 minutesImad AsaadFPG GastroenterologyStart: 03-19-2023 End: 43-10-5475sgfjuinisqRH Baljit House Work Phone: [facility] EDUS Other Start: 03-19-2023 End: 21-21-1993Pcltmof encounter procedureDO Baljit House Work Phone: [facility] [place] Work Phone: Start: 02-12-2023 End: 13-43-8304reijepkfsrUKQTGAV P HOUSEFacility:[facility] HospitalStart: 01-28-2023 End: 95-40-2937ucrqajnkfwHGGGBXN P HOUSEFacility:[facility] ClinicStart: 01-09-2023 End: 58-47-3920ucbrpqsigoXDTTRJD P HOUSEFacility:[facility] HospitalStart: 01-07-2023 End: 99-14-2123clcukawonpRCWIIHQ P HOUSEFacility:[facility] ClinicStart: 12-31-2022 End: 82-64-1047scqpvlcktsPIDMRRG P HOUSEFacility:[facility] HospitalStart: 12-30-2022 End: 54-81-4937ftuijpwrxmIyknhm G Cadigan MDFacility:[facility] ClinicStart: 09-19-2022 End: 10-10-7191mkbmdwcdnwEO BALJIT HOUSEFacility:T3Ehdst: 09-15-2022 End: 75-97-1843ruzwwlvldjGO BALJIT HOUSEFacility:E1Nsyxo: 07-03-2022 End: 15-62-1280qrpbxsagubKF BALJIT HOUSEFacility:M9Jjpwd: 02-04-2022 End: 81-85-8067zlwfrihlgwCjxmd [place] Other Nort EDUS Other Start: 74-35-0399Imydxm outpatient new 30 minutesAmber FernandoFPG Urgent Care ClydeStart: 12-25-2017 End: 05-67-4108Lrlvbfx encounterCHARCHELY P HOUSENationEast [facility]'s [facility] Procedures DateProcedureProcedure DetailPerforming ClinicianStart: 08-71-7235Yergxt-up visitFollow-upJESSICA Rachid JUAN ALBERTOOLLStart: 98-50-5483Nmovced bacterial quanttative colony count urineGail Shell MD Work Phone: Start: 61-63-7077Ospmh dip stick/tablet rgnt auto w/o microscopyGail Shell MD Work Phone: Start: 39-32-9453LcmlobtfprvqaiijmwynuggnijDzgngcik Rohrbacher COPPER PLATE PRINTER Work Phone: Start: 96-18-6345Nljmbpmntbk of thoracic spineDO [facility] Work Phone: Start: 22-02-9610P-ray of both kneesDO [facility] Work Phone: Start: 96-39-7216Cygdgcaiep elastography of liverDO [facility] Work Phone: Plan of Treatment DateCare ActivityDetailAuthorStart: 20-10-7709HAcK,Tdap and Td Vaccines (8 - Td or Tdap)DTaP,Tdap and Td Vaccines (8 - Td or Tdap)[facility] SystemStart: 02-77-9414Fqfdv BMI ScreeningAdult BMI ScreeningProMedica Health SystemStart: 50-77-7488Idsgynf ScreeningTobacco ScreeningProMedica Health SystemStart: 85-08-0370Nlaak BMI ScreeningAdult BMI ScreeningProMedica Health SystemStart: 57-86-3994Rvepwuv ScreeningTobacco ScreeningProMedica Health SystemStart: 94-40-9004Vqfhx BMI ScreeningAdult BMI ScreeningProMedica Health SystemStart: 19-60-7984Nfcihte ScreeningTobacco ScreeningProMedica Health SystemStart: 42-33-1588Kkrkb BMI ScreeningAdult BMI ScreeningProMedica Health SystemStart: 72-45-1858Adgdejt ScreeningTobacco ScreeningOhio State University [facility] Medical Centerca [facility] SystemStart: 77-98-6958Stano BMI ScreeningAdult BMI ScreeningProWexner Medical Centerca Health SystemStart: 34-22-9654Xjuixyc ScreeningTobacco ScreeningProMedica Health SystemStart: 48-01-1232Afyvc BMI ScreeningAdult BMI ScreeningProWexner Medical Centerca Health SystemStart: 80-72-5456Jyyejts ScreeningTobacco ScreeningOhio State University Wexner Medical Centerca Health SystemStart: 26-11-8470Lntsqky ScreeningTobacco ScreeningOhio State University Wexner Medical Centerca Health SystemStart: 42-60-6227HFbW,Tdap and Td Vaccines (7 - Td or Tdap)DTaP,Tdap and Td Vaccines (7 - Td or Tdap)[facility] SystemStart: 23-16-6169Yypbk BMI ScreeningAdult BMI ScreeningOhio State University [facility] Medical Centerca [facility] SystemStart: 01-05-6152Muhlzgr ScreeningTobacco ScreeningOhio State University Wexner Medical Centerca Health SystemStart: 44-77-1480Vuqle BMI ScreeningAdult BMI ScreeningOhio State University [facility] Medical Centerca [facility] SystemStart: 17-43-9221Kffjznz ScreeningTobacco ScreeningOhio State University [facility] Medical Centerca [facility] SystemStart: 17-32-4818Kljqb BMI ScreeningAdult BMI ScreeningOhio State University [facility] Medical Centerca [facility] SystemStart: 25-78-3160Hoxphlx ScreeningTobacco ScreeningOhio State University Wexner Medical Centerca [facility] SystemStart: 04-05-2025 End: 15-91-2029Qdtjtmn encounter rtwqoynlu24/26/2025 9:30 AM EST Office Visit [facility] [address] [facility]ITALKareem[place], [place] Franci Byrd, COPPER PLATE PRINTER-[facility] [address] [place] [address] [facility] General SurgeryStart: 03-31-2025 End: 20-20-2535Vcdxpzk encounter csovkdggb64/21/2025 2:15 PM EST Office Visit [facility] [address] [place] [address] Gail Shell MD [address] [place] [address] [facility]-Urinary SurgeonsStart: 03-16-2025 End: 42-12-0759Uvhqoiyig to same day surgery bjfccb7003/16/2025 1:00 PM EST - 03/16/2025 3:15 PM EST Surgery [facility] Surgery [address] [place] [phone] Gail Shell MD [address] [place] [address] SPERMATOCELECTOMY [79273 (CPT )][facility] SurgeryComment on above: SPERMATOCELECTOMY [67041 (CPT )]Start: 01-05-6502Jphihbbxvl hospital visit by dnvjexnux87/06/2025 1:00 PM EST Hospital Encounter [facility] Surgery [address] [place] [phone] Gail Shell MD [address] [place] [address] [facility] SurgeryStart: 03-16-2025 End: 77-01-0064Gvawmbie spermatocele w/wo epididymectomyTOLEDO SURGERYStart: 03-13-2025 End: 02-23-2504Hhquutd encounter gxfkthydl88/03/2025 10:30 AM EST Office Visit [facility] [address] [place] [phone] Franci Byrd, REUBEN-DESULPHURING OPERATOR [address] [place] [address] [facility] SurgeryStart: 02-13-2025 End: 07-87-8087Xslkhxf encounter qhectxsyj10/06/2025 10:15 AM EDT Office Visit [facility] [address] [place] [address] Franci Byrd, COPPER PLATE PRINTER-DESULPHURING OPERATOR [address] [place], [place] [phone] [facility] General SurgeryStart: 42-10-4636Gjcpx BMI ScreeningAdult BMI ScreeningOhioHealth Hardin Memorial Hospital SystemStart: 70-41-2773Dgbdaja ScreeningTobacco ScreeningOhioHealth Hardin Memorial Hospital SystemStart: 01-24-2025 End: 86-42-9100Nwzjwzk encounter vojtctjeg27/16/2025 9:30 AM EDT Office Visit [facility] [address] [place] [address] Gail Shell MD [address] [place] [address] [facility]-Urinary SurgeonsStart: 01-16-2025 End: 85-34-3179Cadspej encounter /08/2025 9:30 AM EDT Office Visit [facility] [address] [id number] Franci Byrd, COPPER PLATE PRINTER-DESULPHURING OPERATOR [address], [place] [phone] [facility] SurgeryStart: 01-11-2025 End: 73-73-9445Qwiiduf encounter lmjtiifjs53/03/2025 10:30 AM EDT Office Visit [facility] [address] [place] [phone] Gail Shell MD [address] [place] [address] [facility]-Urinary SurgeonsStart: 82-68-7785Cohfkckgp vaccinationInfluenza VaccineOhioHealth Hardin Memorial Hospital SystemStart: 01-02-2025 End: 86-17-8052Lhokevfvp to same day surgery lldkue0301/02/2025 10:00 AM EDT - 01/02/2025 11:00 AM EDT Surgery [facility] [address] [place] [address] Belen Langston MD [address] [place] [phone] EXCISION CYST PILONIDAL [27520 (CPT )][facility] Comment on above:EXCISION CYST PILONIDAL [46002 (CPT )]Start: 01-02-2025 End: 62-42-4653Wmwllmulhk ymgtpgzprojc28/25/2025 10:00 AM EDT Anesthesia Event [facility] [address] [place] [address] Balaji Castelan, DO [address] [place] [address] [facility] Start: 01-02-2025 End: 59-56-6617Hzproqmc pilonidal cyst/sinus simpleEXCISION CYST PILONIDAL pilonidal cyst 01/02/2025 10:00 AM EDTFREMONT SURGERYStart: 53-14-5320Ltfcstaxiw hospital visit by ygnbgtzxc26/25/2025 10:00 AM EDT Hospital Encounter [facility] [address] [place] [address] Belen Langston MD [address] [place] [address] [facility] - SurgeryStart: 12-13-2024 End: 88-98-1328Jkghtfi encounter /05/2025 8:15 AM EDT Procedure visit [facility] - Pre Admit [address] [place] [address] [phone] Community Hospital - Pre AdmitStart: 21-48-2523Vpxofgf [facility] Work Phone: Start: 70-44-6864Mryss BMI ScreeningAdult BMI Screeningformerly [facility] Medical Centertart: 38-95-4594Yhejhfq ScreeningTobacco Screeningformerly [facility] Medical Centertart: 34-86-8177BgaktdhvwCleveland Clinic Medina Hospitaltart: 03-08-2024 End: 30-51-3314Bpvdjsu encounter /29/2024 8:30 AM EDT Office Visit [facility] [address] [facility], [id number] Belen Langston MD [address] [place] [address] [facility] SurgeryStart: 29-42-3791Qqpioxy [facility] Work Phone: Start: 23-46-1351Bjprrtnne vaccinationInfluenza Vaccineformerly [facility] Medical Centertart: 10-22-2023 End: 54-62-3058Knsiyuijbvkj consultation with mdzpwat1710/22/2023 9:30 AM EDT Telemedicine [facility] [address] [place] [phone] [place] [address] [place] [phone] [facility] RheumatologyStart: 00-56-1920BnxiavjSumma Health [facility] Work Phone: Start: 98-06-6747Kuhcopy [Units/volume] in Serum or PlasmaCleveland Clinic Medina Hospitaltart: 07-21-2023 End: 84-40-9829QQENOO Neurology Routine Pain in both hands Bilateral carpal tunnel syndrome Expected: 07/21/2023 (Approximate), Expires: 07/20/2024[employer] Work Phone: comment on above:Expected: 07/21/2023 (Approximate), Expires: 07/20/2024Start: 07-21-2023 End: 49-03-7379WM [employer] Survey ViewsThe MetroHealth SystemComment on above:Expected: 07/21/2023, Expires: 07/20/2024Start: 35-55-6182Gjqovwreb complement CH50 levelCleveland Clinic Medina Hospitaltart: 32-86-7234JNC antibody measurementCleveland Clinic Medina Hospitaltart: 88-19-7908KjcqsleaoCleveland Clinic Medina Hospitaltart: 08-18-6739QseegqmbfCleveland Clinic Medina Hospitaltart: 67-43-4830Jibaddtoa vaccinationInfluenza Vaccineformerly [facility] Centertart: 16-39-9874Sdsbl BMI Follow Up PlanAdult BMI Follow Up Planformerly [facility] Centertart: 14-56-9331Nvnvltdxpm ScreeningDepression ScreeningThe MetroHealth SystemActin smooth muscle IgG Ab [Units/volume] in SerumMetrohealth Parma Medical CenterAlpha 1 antitrypsin [Mass/volume] in Serum or PlasmaMetrohealth Parma Medical CenterAlpha 1 antitrypsin phenotyping [Identifier] in Serum or Plasma by ImmunofixationMetrohealth Parma Medical CenterCeruloplasmin [Mass/volume] in Serum or PlasmaMetrohealth Parma Medical CenterComprehensive metabolic 2000 panel - Serum or PlasmaMetrohealth Parma Medical CenterCT Abdomen and Pelvis WO and W contrast [facility] HospitalCT Abdomen WO and W contrast Galion HospitalExcision spermatocele w/wo epididymectomySPERMATOCELECTOMY SpermatoceleTOLEDO SURGERY Fibrillarin Ab [Presence] in SerumMetrohealth Parma Medical Center Hemoglobin.gastrointestinal [Presence] in StoolMetrohealth Parma Medical Center Hepatitis A virus antibody, IgM typeMetrohealth Parma Medical CenterHepatitis B core antibody measurementMetrohealth Parma Medical CenterHepatitis B core antibody measurement, IgM [facility] HospitalHepatitis B virus DNA [#/volume] (viral load) in Serum or Plasma by GITA with probe detection [facility] CenterHepatitis B virus DNA [log units/volume] (viral load) in Serum or Plasma by GITA with probe detectionMetrohealth Parma Medical CenterHeestelle [facility] B virus DNA [Units/volume] (viral load) in Serum or Plasma by GITA with probe detectionMetrohealth Parma Medical CenterHepatitis B virus surface Ab [Presence] in SerumMetrohealth Parma Medical CenterHepatieast [facility] B virus surface Ab [Units/volume] in SerumMetrohealth Parma Medical CenterHeestelle doheny eye hospital B virus surface Ag [Presence] in Serum or Plasma by ImmunoassayMetrohealth Parma Medical CenterHepatitis C virus IgG Ab [Presence] in Serum or Plasma by ImmunoassayMetrohealth Parma Medical CenterHFE gene mutations found [Identifier] in Blood or Tissue by Molecular genetics method NominalMetrohealth Parma Medical CenterHomogenous nuclear Ab pattern [Titer] in [facility] HospitalIgG [Mass/volume] in Serum or PlasmaMetrohealth Parma Medical CenterLipoprotein a [Moles/volume] in Serum or PlasmaMetrohealth Parma Medical CenterMitochondria M2 IgG Ab [Units/volume] in SerumMetrohealth Parma Medical CenterNuclear Ab [Titer] in [facility] Patient EducationHemorrhoids (DC) Esophagitis Know your [facility] Work Phone: Patient referralAvita Health System Ctr Work Phone: PM-SCL extractable nuclear Ab [Mass/volume] in Serum by Immune diffusion (ID)[facility] Medical CenterRNA polymerase III IgG Ab [Units/volume] in Serum or Plasma by ImmunoassayMetrohealth Parma Medical CenterTh-To Ab [Units/volume] in Serum by Line blotMetrohealth Parma Medical Center End: 40-72-5167Hhsbfeyd Procedure / SurgeryUnlisted Procedure / Surgery Procedures Routine Pilonidal disease 1 Occurrences starting 11/29/2024until 11/29/2025[facility] Work Phone: Comment on above:1 Occurrences starting 11/29/2024 until 11/29/2025XR Ankle - right GE 3 ViewsMetrohealth Parma Medical CenterXR Foot - right GE 3 ViewsMetrohealth Parma Medical CenterXR Ribs - right Views [facility] CenterFire[facility] Immunizations Immunization DateImmunizationNotesCare XfusjcegBnhivlwa57-76-4777efiimehbwfseg oligosaccharide (groups A, C, Y and W-135) diphtheria toxoid conjugate vaccine (MCV4O)DO [employer] Work Phone: [phone]08-26-2016 meningococcal oligosaccharide (groups A, C, Y and W-135) diphtheria toxoid conjugate vaccine (MCV4O)DO [employer] Work Phone: [phone] [place], [place] [address]908-26-2016tetanus toxoid, reduced diphtheria toxoid, and acellular pertussis vaccine, adsorbedAPRN Leatha Diaz Work Phone: [facility]09-10-2015 meningococcal oligosaccharide (groups A, C, Y and W-135) diphtheria toxoid conjugate vaccine (MCV4O)DO [employer] Work Phone: [phone] [place], [place] [address]909-10-2015tetanus toxoid, reduced diphtheria toxoid, and acellular pertussis vaccine, adsorbedAPRN Leatha Diaz Work Phone: [facility]08-21-2014poliovirus vaccine, inactivatedDO [employer] Work Phone: [phone] [place], [place] [address]903-12-2014diphtheria, tetanus toxoids and acellular pertussis vaccineDO [employer] Work Phone: [phone]03-12-2014hepatitis A vaccine, pediatric/adolescent dosage, 2 dose scheduleDO [employer] Work Phone: [phone] [place], [place] 245[address]12-06-2013hepatitis B vaccine, pediatric or pediatric/adolescent dosageDO [employer] Work Phone: [phone] [place], [place] 2454912-06-2013poliovirus vaccine, inactivatedDO Baljit House Work Phone: [phone] [place], [place] 2454912-06-2013varicella virus vaccineDO [employer] Work Phone: [phone] [place], [place] [address]-09-2013diphtheria, tetanus toxoids and acellular pertussis vaccineDO [facility] Work Phone: [phone]09-09-2013hepatitis B vaccine, pediatric or pediatric/adolescent dosageDO [facility] Work Phone: [phone] [place], [place] [address]-09-2013measles, mumps and rubella virus vaccineDO Baljit [place] Work Phone: [phone] [place], [place] [address]-09-2013poliovirus vaccine, inactivatedDO [facility] Work Phone: [phone]08-20-2013hepatitis A vaccine, pediatric/adolescent dosage, 2 dose scheduleDO [facility] [place] Work Phone: [phone] [place], [place] 2454908-06-2013diphtheria, tetanus toxoids and acellular pertussis vaccineDO [facility] Work Phone: [phone] [place], [place] 2454908-06-2013hepatitis B vaccine, pediatric or pediatric/adolescent dosageDO [facility] [place] Work Phone: [phone] [place], [place] 2454908-06-2013measles, mumps and rubella virus vaccineDO [facility] Work Phone: [phone] [place], [place] 2454908-06-2013poliovirus vaccine, inactivatedDO [facility] [place] Work Phone: [phone] [place], [place] 2454908-06-2013varicella virus vaccineDO [facility] [place] Work Phone: [phone] [place], [place] 2454905-06-2004diphtheria, tetanus toxoids and acellular pertussis vaccine, unspecified formulationDO [facility] Work Phone: [phone] [place], [place] 2454905-06-2004haemophilus influenzae type b conjugate and Hepatitis B vaccineDO [facility] Work Phone: [phone] [place], [place] 2454905-06-2004 pneumococcal conjugate vaccine, 7 valentDO [facility] Work Phone: [phone] [place], [place] 245[address]05-06-2004poliovirus vaccine, inactivatedDO [facility] Work Phone: [facility] Payers DatePayer CategoryPayerPolicy [id number] - OtherANTHEM [id number] [id number] of Defense ( and others)[id number] of Defense ( and others)[id number] Department of Defense ( and others)[id number] of Defense ( and others) [facility] [id number] 05/11/2017-Present [phone] [address] [place] [address] 1.2.840.630193.1.13.424.2.7.3.631691.62445-53-2904Spbnsjbfzi of Defense ( and others)[id number] of Defense ( and others)[id number] 2.16.840.1.541725.3.579.[id number] 2.16.840.1.034375.3.579.2.70093-80-0398Jkmhfxg2557198 2.16.840.1.090811.3.579.2.80716-99-3785Jyzruqb24684193 2.16.840.1.382274.3.579.[id number] 2.16.840.1.969569.3.579.2.82530-02-4153Lkbrfpi79614960 2.16.840.1.648045.3.579.2.61231-92-1888Ftwkjzu26752188 2.16.840.1.776750.3.579.2.34390-00-1553Hatalob68224308 2.16.840.1.818720.3.579.2.47622-75-5578Nbnruoy37380482 2.16.840.1.212727.3.579.2.34363-37-8810Cwrudwr07126897 2.16.840.1.412661.3.579.2.91264-38-4011Uszuymn46849299 2.16.840.1.761147.3.579.2.76600-93-3067Jghwgcs26923027 2.16.840.1.947394.3.579.2.36149-84-5301Gsiialk65670721 2.16.840.1.555923.3.579.2.40890-88-3346Laowxov91508428 2.16.840.1.958066.3.579.2.02336-47-8357Jlxixtl570198545 2.16.840.1.408891.3.579.2.205426-28-7250Jjdiniw876811292 2.16.840.1.615118.3.579.2.[id number] 2.16.840.1.645577.3.579.2.408930-52-5847Kkxqhff694042248 2.16840.1.140018.3.579.2.703477-95-3451Prfvuwa656239839 2.16840.1.461132.3.579.2.466143-88-5038Gotoxwz730172052 2.16840.1.462350.3.579.2.912114-90-5084Bfqjowa225164513 2.16840.1.717824.3.579.2.127110-26-8683Dihxabh233267934 2.840.1.003479.3.579.2.435276-15-6229Vzfkuyi76169358 2.840.1.315575.3.579.2.327578-05-0308Hhzrwjy47518993 2.16840.1.287533.3.579.2.698158-19-5605Eqgnmok456627273 2.840.1.825838.3.579.2.693358-69-3574Evdeztl399257782 2.16840.1.273313.3.579.2.034917-42-7756Jgpyiks712865919 2.16840.1.532697.3.579.2.784988-30-5935Ibibnvi615958491 2.16.840.1.001073.3.579.2.935943-58-1830Oewkusi219963277 2.16840.1.708239.3.579.2.684770-37-6740Aocxffk73684112 2.0.1.744367.3.579.2.783421-31-4247Wevkqpq563487497 2.0.1.242497.3.579.2.737550-96-1237Nlozmnf449995364 2.0.1.693258.3.579.2.254464-62-8606Dfnweqd583869467 2..1.138291.3.579.2.197787-94-6708Ingwtul278565374 2..1.306465.3.579.2.889680-84-1204Vgyashy013869138 2..1.674173.3.579.2.824973-60-1688Sidvpaz969030028 2..1.088286.3.579.2.965980-93-2335Ruhvwudgyy of Defense ( and others)41124230700-81-1326Lgotdibtkf of Defense ( and others)[id number] [id number] 2..1.031862.3.579.2.874Zbapajl29002926 2..1.341848.3.579.2.684Eohqicj97984363 2..1.998632.3.579.2.531 Jpqwapw46135150 2..1.410713.3.579.2.531Worker's Comp Other Managed Care URANIA 1.2.074.205699.1.13.424.2.7.9.678312.313.315 Social History DateTypeDetailFacilityUnknown if ever smokedNort EDUS Other Start: 06-21-2020 End: 48-39-9797Tpd Assigned At BirthOhioHealth Hardin [facility] Hospital SystemStart: 99-82-4440Wvz Assigned At BirthMaleFSelect Medical Specialty Hospital - Youngstowntart: 02-20-2022 End: 54-14-7243Tpidqph smoking status NHISNever smoked tobacco (finding) [facility]: 12-14-2014 End: 98-85-9395JapCkde (finding)[facility]art: 00-77-9215Qnndhce use and exposureSmokeless tobacco non-userOhioHealth Hardin Memorial Hospital SystemStart: 07-21-2023 End: 21-89-6951Jbdygtd intakeEx-drinker (finding)[facility] SystemStart: 06-21-2020 End: 94-94-0269Ymvnqkb of Social functionThe MetroHealth SystemChildcareUnknown formerly [facility] Centertart: 69-81-5287Lay Assigned At BirthNot on file formerly [facility] Centertart: 01-26-2024 End: 95-77-1077Gqrjflgmx beverage intakeCurrent drinker of alcohol (finding) formerly [facility] Centertart: 65-29-4693Bbpbpru CommentoccasionallyProPomerene HospitalTobacco smoking statusNo Smoking Status EnteredFulton County Health Center [facility]aj [employer] [place] IMS, oil, or water [employer] threatened to shut off services in your home in past 12ThuMaria Parham Healthtart: 91-11-0470Uxnbedw Commentnone since july 2024[facility] System Goals DatePatient GoalDesired Activity/StatePersonal health goalPersonal health goal Functional Status AgigInrzarlumtRxzyalKshhytep37-30-8349Dilzvnicfs StatusN/[facility] Clinical Notes 02-04-2022 to 03-17-2025 Note Date & JkqpQmkhMzkurqsg07-82-1476 Miscellaneous Notes* Telephone Encounter - TARA Nicholson - 03/17/2025 10:12 AM EST Pt calls stating insurance won't cover the Doxycycline. He was told by the Pharmacist that he either needs to try the slow release or generic. * Telephone Encounter - Gail Shell MD - 03/17/2025 10:12 AM EST Switched to Bactrim * Telephone Encounter - TARA Nicholson - 03/17/2025 10:12 AM EST Pt was notified. documented in this encounterThe MetroHealth System11-07-2025 Telephone encounter Note* Telephone Encounter - TARA Nicholson - 03/17/2025 10:12 AM EST Pt calls stating insurance won't cover the Doxycycline. He was told by the Pharmacist that he either needs to try the slow release or generic. [facility]11-07-2025 Telephone encounter Note* Telephone Encounter - Gail Shell MD - 03/17/2025 10:12 AM EST Switched to Bactrim [facility]11-07-2025 Telephone encounter Note* Telephone Encounter - TARA Nicholson - 03/17/2025 10:12 AM EST Pt was notified. [facility]11-06-2025 Miscellaneous Notes* Telephone Encounter - Gail Shell MD - 03/16/2025 3:34 PM EST Follow up with me in 2 weeks for wound check documented in this encounterThe MetroHealth System11-06-2025 Telephone encounter Note* Telephone Encounter - Gail Shell MD - 03/16/2025 3:34 PM EST Follow up with me in 2 weeks for wound check [facility]11-03-2025 History of Present illness Narrative* Franci Byrd APRN-JAKE - 03/13/2025 10:30 AM EST Images from the original note were not included. Subjective eJt Duncan is a 19 y.o. male status [...] 1 month. Pilonidal disease [L98.8] JESSICA URIARTE [facility] [place] This note was created with the assistance of a speech recognition program. While intending to generate a timely document that accurately reflects the content of the visit, no guarantee can be provided that every grammatical or spelling mistake has been or will be identified or corrected. Thank you for your understanding. JESSICA Uriarte 03/13/25 1104 documented in this encounterThe MetroHealth System10-23-2025 History and physical note* JESSICA Pacheco - 03/02/2025 12:15 PM EDT PRE-ADMISSION TESTING HISTORY AND PHYSICAL EXAM DATE: 03/02/25 PCP: KASHIF May CHIEF COMPLAINT: spermatocele HISTORY OF PRESENT ILLNESS: Jet Duncan, a 19 y.o. White or male, presents to [facility] for a pre-surgical H&P. The patient [...] Date Acute appendicitis 02/20/2022 Anxiety Bipolar disorder ([facility] Depression Fibromyalgia Fractures Headache Liver disease fatty liver Mood disorder Morbid obesity ([facility]) 03/02/2025 Sleep apnea does not use a cpap Spermatocele 03/02/2025 URI, acute 07/03/2024 Visual impairment PAST SURGICAL HISTORY: Past Surgical History: Procedure Laterality Date COLONOSCOPY ESOPHAGOGASTRODUODENOSCOPY EXCISION CYST PILONIDAL N/A 01/02/2025 Performed by Belen Langston MD at [facility] LAPAROSCOPIC APPENDECTOMY N/A 02/20/2022 Performed by Dean Atkins DO at [facility] FAMILY HISTORY: Family History Problem Relation [...] SIGNS: BP 139/79 Pulse 107 Temp 36.2 C (97.1 F) (Temporal) Resp 20 Ht 182.9 cm (6') Wt (!) 206.9kg (456 lb 2.1 oz) SpO2 97% BMI 61.86 kg/m PHYSICAL EXAM: Physical Exam Constitutional: General: He [...] Behavior is cooperative. PERTINENT TESTING AVAILABLE IN [facility] (WITHIN THE PAST 2 YEARS): EK12/15/24 [...] the most recent lab values available in [facility] at the time ofthe appointment. ASSESSMENT / DIAGNOSIS: Linked DX: Spermatocele [608.1] PLAN: Jet Duncan is scheduled for Case Date: 03/16/2025 Linked Surgeon: Ronnie Shell MD Linked Procedure: SPERMATOCELECTOMY - Right. Testing performed in Pre-Admission Clinic today: / JESSICA Pacheco 03/02/25 1243 SNS[facility]10-23-2025 History and physical note* JESSICA Pacheco - 03/02/2025 12:15 PM EDT PRE-ADMISSION TESTING HISTORY AND PHYSICAL EXAM DATE: 03/02/25 PCP: KASHIF May CHIEF COMPLAINT: spermatocele HISTORY OF PRESENT ILLNESS: Jet Duncan, a 19 y.o. White or male, presents to [facility] for a pre-surgical H&P. The patient [...] Date Acute appendicitis 02/20/2022 Anxiety B[place] Depression Fibromyalgia Fractures Headache Liver disease fatty liver Mood disorder Morbid obesity ([facility]) 03/02/2025 Sleep apnea does not use a cpap Spermatocele 03/02/2025 URI, acute 07/03/2024 Visual impairment PAST SURGICAL HISTORY: Past Surgical History: Procedure Laterality Date COLONOSCOPY ESOPHAGOGASTRODUODENOSCOPY EXCISION CYST PILONIDAL N/A 01/02/2025 Performed by Belen Langston MD at [facility] LAPAROSCOPIC APPENDECTOMY N/A 02/20/2022 Performed by Dean Atkins DO at [facility] FAMILY HISTORY: Family History Problem Relation [...] SIGNS: BP 139/79 Pulse 107 Temp 36.2 C (97.1 F) (Temporal) Resp 20 Ht 182.9 cm (6') Wt (!) 206.9kg (456 lb 2.1 oz) SpO2 97% BMI 61.86 kg/m PHYSICAL EXAM: Physical Exam Constitutional: General: He [...] Behavior is cooperative. PERTINENT TESTING AVAILABLE IN [facility] (WITHIN THE PAST 2 YEARS): EK12/15/24 [...] the most recent lab values available in [facility] at the time ofthe appointment. ASSESSMENT / DIAGNOSIS: Linked DX: Spermatocele [608.1] PLAN: Jet Duncan is scheduled for Case Date: 03/16/2025 Linked Surgeon: Ronnie Shell MD Linked Procedure: SPERMATOCELECTOMY - Right. Testing performed in Pre-Admission Clinic today: UA/ JESSICA Pacheco 03/02/25 1243 documented in this encounterThe MetroHealth System10-23-2025 Instructions* Patient Instructions* Danae Bell RN - 03/02/2025 12:15 PM EDT Your surgery/procedure is scheduled at [facility] on 03/16/25 at 1:00 pm Arrival Time 11:00 am [facility] Address: [address] [place] [address]. [address] in [address]1 Parking lot located on [facility]. Report to the Entrance B. Check in at the information desk. The waiting room is located on the second floor. If you have any questions prior to surgery, please call Pre-Admission Clinic at [phone] between 7:30 am and 4:30 pm Thursday through Thursday. If you have questions the morning of surgery, please call the Pre-op Department at [phone]. Notify your SURGEON if you develop any [...] weekly, hold 1 week prior to surgery: Mounjaro . Blood thinners: Please contact your prescribing [...] piercing's, hair extensions that contain metal, nail malaysian, make-up, and contact lens. You may brush [...] RIGHTS AND RESPONSIBILITIES As a patient at [facility], you have the right to: Receive medical care and be informed of who is taking care of you Be treated with dignity and respect Have a family member/business development representative of choice and your physician notified of your admission Receive information and actively participate in decisions about your care and treatment Refuse care, treatment and services Decide who may provide your support and speak for you Access quaker and spiritual services Participate in ethical issues [...] of hospital charges and payment methods Patient/patient business development representative responsibilities are to: Provide information about health status to facilitate care, treatment and services Follow the treatment, plan, keep appointments and speak up when you do not understand the plan Respect the rights of other patients and healthcare personnel Follow organizational rules and regulations that support quality care and a safe environment Fulfill financial obligations as promptly as possible documented in this encounterThe MetroHealth System10-06-2025 History of Present illness Narrative* Franci Byrd, COPPER PLATE PRINTER-DESULPHURING OPERATOR - 02/13/2025 10:15 AM EDT Images from the original note were not included. Subjective Jet Heber Duncan is a 19 y.o. male [...] 1 month. Pilonidal disease [L98.8] JESSICA URIARTE [facility] General Surgery [place] This note was created with the assistance of a speech recognition program. While intending to generate a timely document that accurately reflects the content of the visit, no guarantee can be provided that every grammatical or spelling mistake has been or will be identified or corrected. Thank you for your understanding. JESSICA Uriarte 02/13/25 1026 documented in this [facility]09-16-2025 Miscellaneous Notes* Telephone Encounter - Gail Shell MD - 01/24/2025 11:09 AM EDT Please schedule for right spermatocele ectomy, general, 90 minutes documented in this [facility]09-16-2025 Telephone encounter Note* Telephone Encounter - Gail Shell MD - 01/24/2025 11:09 AM EDT Please schedule for right spermatocele ectomy, general, 90 minutes [facility]09-16-2025 History of Present illness Narrative* Gail Shell MD - 01/24/2025 10:30 AM EDT Images from the original note were not included. [address] [facility] [address] Patient: Jet Duncan Date of : 2005 [...] 01/02/2025 Performed by Belen Langston MD at [facility] LAPAROSCOPIC APPENDECTOMY N/A 02/20/2022 Performed by Dean Atkins DO at [facility] Family History Problem Relation Age of [...] you for your understanding. documented in this encounterThe MetroHealth System09-11-2025 Miscellaneous Notes* Telephone Encounter - TARA Franklin - 01/19/2025 2:17 PM EDT Called patient, received disability forms from [employer]. Unable to make contact with patient, left [...] for his employer. * Telephone Encounter - TARA Franklin - 01/19/2025 2:17 PM EDT Called patient, received disability forms from [employer]. Unable to make contact with patient, left [...] unavailable for his employer. documented in this encounterThe MetroHealth System09-11-2025 Telephone encounter Note* Telephone Encounter - Bere RmkinsTARA - 01/19/2025 2:17 PM EDT Called patient, received disability forms from [employer]. Unable to make contact with patient, left [...] restrictions are still unavailable for his employer. [facility]09-11-2025 Telephone encounter Note* Telephone Encounter - Bere RmkinsTARA - 01/19/2025 2:17 PM EDT Called patient, received disability forms from [employer]. Unable to make contact with patient, left [...] restrictions are still unavailable for his employer. [facility]09-08-2025 History of Present illness Narrative* JESSICA Uriarte [...] 4 weeks. Pilonidal disease [L98.8] JESSICA URIARTE [facility] General [facility] [place] This note was created with the assistance of a speech recognition program. While intending to generate a timely document that accurately reflects the content of the visit, no guarantee can be provided that every grammatical or spelling mistake has been or will be identified or corrected. Thank you for your understanding. JESSICA Uriarte 01/16/25 0952 documented in this encounterThe MetroHealth System09-03-2025 History of Present illness Narrative* JESSICA Holder - 01/11/2025 10:30 AM EDT Images from the original note were not included. [address] [facility] [address] [address] Patient: Jet Duncan Date of : 2005 Encounter Date: 01/11/2025 History of Present Illness: Chief Complaint: Chief Complaint Patient presents with New Patient [facility] Er fu Epididymal cyst// Right hydrocele// [employer] [employer] The patient is a 19 y.o. [...] 01/02/2025 Performed by Belen Langston MD at [facility] LAPAROSCOPIC APPENDECTOMY N/A 02/20/2022 Performed by Dean Atkins DO at [facility] Family History Problem Relation Age of [...] Epididymal cyst - [facility] [place] [place] Right hydrocele - [facility] [place] [place] Problem List Epididymal cyst - Primary Overview [...] JESSICA Holder 01/12/25 0939 documented in this encounterThe MetroHealth System08-29-2025 Miscellaneous Notes* Telephone Encounter - Ese Reyna CMA - 01/06/2025 9:18 AM EDT ----- Message from Dean Atkins DO sent at 01/05/2025 11:26 AM EDT ----- Regarding: RE: Excision of Pilonidal Cyst Ibuprofen 800 sent to his pharmacy. Make sure he does not have any history of ulcers or gastritis. Thanks, Tylenol as ueeb-jws-xuklpsu. ----- Message ----- From: Ese Reyna CMA [...] as she is an approved contact for [facility]. Informed her of the medication prescribed by Dr. Atkins. Ranjith verbally understood. documented in this encounterThe MetroHealth System08-29-2025 Telephone encounter Note* Telephone Encounter - Ese Reyna CMA - 01/06/2025 9:18 AM EDT ----- Message from Dean Atkins DO sent at 01/05/2025 11:26 AM EDT ----- Regarding: RE: Excision of Pilonidal Cyst Ibuprofen 800 sent to his pharmacy. Make sure he does not have any history of ulcers or gastritis. Thanks, Tylenol as [id number]-iovqgjw. ----- Message ----- From: Ese Reyna CMA Sent: 01/05/2025 11:22 AM EDT To: eDan Atkins DO Subject: Excision of Pilonidal Cyst Dr. Kian Dhaliwal excised this patient's pilonidal cyst on Thursday. He called stating the OTC tylenol was not helping. Would you be willing to call him in a prescription for Tylenol or Ibuprofen to help him? Please let me know. Thank you, Ese [facility]08-29-2025 Telephone encounter Note* Telephone Encounter - Ese Reyna CMA - 01/06/2025 9:18 AM EDT Left message for patient regarding prescription. [facility]08-29-2025 Telephone encounter Note* Telephone Encounter - Ese Reyna CMA - 01/06/2025 9:18 AM EDT Spoke with patient's mother Ranjith as she is an approved contact for [facility]. Informed her of the medication prescribed by Dr. Atkins. Ranjith verbally understood. [facility]08-26-2025 Miscellaneous Notes* Telephone Encounter - Eleanor Kruse [...] infection at this time. documented in this encounterThe MetroHealth System08-26-2025 Telephone encounter Note* Telephone Encounter - Eleanor [...] no signs of infection at this time. [facility]08-22-2025 Miscellaneous Notes* Telephone Encounter - TARA [place] [...] out and faxed toemployer. [facility] ChannelEyes [id number] Telephone encounter Note* Telephone Encounter - TARA Franklin - 12/30/2024 12:05 PM EDT Called patient to ask additional question regarding his disability/fmla forms. Unable to make contact with patient, left voicemail message for patient to call our office back. [facility]08-22-2025 Telephone encounter Note* Telephone Encounter - TARA Franklin - 12/30/2024 12:05 PM EDT Patient called back and questions were answered. Disability/FMLA forms were filled out and faxed toemployer. [facility]08-07-2025 Instructions* Patient Instructions* Kiera Inman RN - 12/15/2024 8:15 AM EDT Preoperative Education Checklist- General Surgery date: 01/02/25 Surgery time: 1000 a.m. Arrival time: 0800 a.m. 1. Bring a photo ID and your insurance card with you the day of surgery. You will check in at the main lobby of the [facility]- registration desk is straight ahead as soon as you walk in. Tell them you are here for surgery. 2. If you have a Living Will/Durable Power of Retail Route Supervisor for Health Care that is not on [...] after you have bathed. 5. NO nail malaysian/acrylic on at least one finger. If you are having a hand, wrist or foot surgery then all nail malaysian and artificial/acrylic nails must be removed from [...] please call the Preadmission Testing office at [phone], Mon.-Fri. 7 a.m.-3 p.m. Leave a voicemail [...] appointment with your doctor. documented in this encounterThe MetroHealth System08-07-2025 Miscellaneous Notes* Perioperative Nursing Note - Kiera Inman RN - 12/15/2024 8:15 AM EDT Preoperative Education Checklist- General Surgery date: 01/02/25 Surgery time: 1000 a.m. Arrival time: 0800 a.m. 1. Bring a photo ID and your insurance card with you the day of surgery. You will check in at the main lobby of the [facility]- registration desk is straight ahead as soon as you walk in. Tell them you are here for surgery. 2. If you have a Living Will/Durable Power of Retail Route Supervisor for Health Care that is not on [...] after you have bathed. 5. NO nail malaysian/acrylic on at least one finger. If you are having a hand, wrist or foot surgery then all nail malaysian and artificial/acrylic nails must be removed from [...] please call the Preadmission Testing office at [phone], Mon.-Fri. 7 a.m.-3 p.m. Leave a voicemail [...] reviewed. Patient verbalized understanding. documented in this encounterThe MetroHealth System08-07-2025 Nurse Note* Perioperative Nursing Note - Kiera Inman RN - 12/15/2024 8:15 AM EDT Preoperative Education Checklist- General Surgery date: 01/02/25 Surgery time: 1000 a.m. Arrival time: 0800 a.m. 1. Bring a photo ID and your insurance card with you the day of surgery. You will check in at the main lobby of the [facility]- registration desk is straight ahead as soon as you walk in. Tell them you are here for surgery. 2. If you have a Living Will/Durable Power of Retail Route Supervisor for Health Care that is not on [...] after you have bathed. 5. NO nail malaysian/acrylic on at least one finger. If you are having a hand, wrist or foot surgery then all nail malaysian and artificial/acrylic nails must be removed from [...] please call the Preadmission Testing office at [phone], Mon.-Fri. 7 a.m.-3 p.m. Leave a voicemail [...] to the follow-up appointment with your doctor. [facility]08-07-2025 Nurse Note* Perioperative Nursing Note - Kiera Inman RN - 12/15/2024 8:15 AM EDT Hibiclens and surgical instructions reviewed. Patient verbalized understanding. [facility]07-22-[facility] History of Present illness Narrative* Belen Langston [...] Medical History: Diagnosis Date Anxiety Bipolar disorder ([facility]) Depression Fibromyalgia Fractures Mood disorder URI, acute 07/03/2024 Past Surgical History: Procedure Laterality Date COLONOSCOPY LAPAROSCOPIC APPENDECTOMY N/A 02/20/2022 Performed by Dean Atkins DO at [facility] Allergies Allergen Reactions Penicillins Hives Current [...] patient/family/caregiver Referring and communicating with other health congregational care pastor Belen Langston MD [facility] [place] documented in this encounterThe [facility]04-[facility] Evaluation note* Diagnosis Onset Date Resolution Status Admit Date Anxiety acuteApril 2024 1:03pmDepressionacuteApril 2024 1:03pmBipolar disorderchronicApril 2024 1:03pm [facility] Work Phone: 1(103) 337-871104-23-2025 Evaluation note* Diagnosis Onset Date Resolution Status Admit Date Anxiety acuteApril 2024 1:03pmDepressionacuteApril 2024 1:03pmBipolar disorderchronicApril 2024 1:03pmAnxietyacuteMay 2024 8:56am DepressionacuteMay 2024 8:56amBipolar disorderchronicMay 2024 8:56am Rib pain on right sideacuteOctober 13, 2024 8:25am [facility] Work Phone: 1(141) 893-264102-26-2025 Hospital Discharge instructions Patient Education 07/05/2024 23:18:30 [...] medicines to help relieve symptoms, such as: Bdje-dag-htaswik cold medicines. Cough suppressants. Coughing is a [...] and other clear broths. General instructions Take nqdh-vxp-txzkeca and prescription medicines only as told by [...] and water are not available, use hand internal grinder set up operator. Avoid touching your mouth, face, eyes, or [...] provider. Document Revised: 11/27/2021 Document Reviewed: 11/27/2021 [employer] Patient Education 2023 [employer]. 07/05/2024 23:18:30 Otitis Media, Adult Otitis Media, [...] pain. Follow these instructions at home: Take hagj-qcx-ksdovqw and prescription medicines only as told by [...] provider. Document Revised: 08/05/2021 Document Reviewed: 08/05/2021 [employer] Patient Education 2023 [employer]. Follow Up Care 07/05/2024 21:47:00 With:Abbi JAY Address: [address] [place] [phone] Business (1) When:07/08/2024 [facility] 02-25-2025 NoteED Patient Education Note ENT Otitis [...] Follow these instructions at home: ??? Take ohjc-liv-uefeifh and prescription medicines only as told by [...] provider. Document Revised: 08/05/2021 Document Reviewed: 08/05/2021 [employer] Patient Education ? 2023 [employer] Infectious Disease Upper Respiratory Infection, Adult [...] exposed to the virus (more content not included)...[facility]02-06-2025 Evaluation note* Diagnosis Onset Date Resolution Status Admit Date Sciatica, right side acuteFebruary 2024 9:39amAnxietyacuteApril 2024 1:03pmDepressionacute Kaila 2024 1:03pmBipolar disorderchronicApril 2024 1:03pm [facility] Work Phone: 1([phone]) 878-787112-09-2024 Evaluation note* Diagnosis Onset Date Resolution Status Admit Date Pilonidal cyst acuteDecember 2023 8:23amSciatica, right sideacuteFebruary 2024 9:39am [facility] Work Phone: 1([phone]) 968-605411-12-2024 [place] [address] EGD/Colonoscopy Procedure Signed Patient: Jet Duncan MR#: [id number] : 2005 Acct:[id number] Age/Sex: 18 / M Adm Date: 4 Loc: Room: Type: [facility] Attending Dr: Wilver Felton MD Copies to: MD Leatha Ribeiro APRN, CNP~ EGD & Colonoscopy Date/Provider 03/22/2024 Wilver Felton [...] was slowly withdrawnwith the findings as below. [place] bowel prep score was good. Findings: Random [...] MD 03/22/24 1012 Signed By: 03/22/24 1039 [facility]11-12-2024 [place] [address] Gastroenterology H&P Signed Patient: Jet Duncan MR#: [id number] : 2005 Acct:[id number] Age/Sex: 18 / M Adm Date: 4 Loc: Room: Type: [facility] Attending Dr: Wilver Felton MD Copies to: MD Leatha Ribeiro APRN, DESULPHURING OPERATOR~ Date of Service: 03/22/2024 HISTORY & PHYSICAL: [...] Felton M.D. Documented By: Wilver Felton MD 03/22/241009 Signed By: 03/22/24 1012 [facility]11-01-2024 History and physical note Author Wilver Felton [facility] CenterNote Date/TimeNovember 2023 10:12am [place] [address] Gastroenterology H&P Signed Patient: Jet Duncan MR#: [id number] : 2005 Acct:[id number] Age/Sex: 18 / M Adm Date: 4 Loc: Room: Type: [facility] Attending Dr: Wilver Felton MD Copies to: MD Leatha Ribeiro APRN, DESULPHURING OPERATOR~ Date of Service: 03/22/2024 HISTORY & PHYSICAL: [...] signed by Wilver Felton MD> 03/22/24 1012 [facility] Work Phone: 1(764) 617-321810-01-2024 Evaluation note* Author Kareem Tijerina [facility] CenterAuthoredOctober 2023 8:48amHighest weight: 407.5 lbs. [...] is going to start working with a manager gyn. 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 6. 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 Salivary cortisol x 2 ordered. [facility] Work Phone: 1(647) 256-887909-17-2024 History of Present illness Narrative* Belen Langston [...] Medical History: Diagnosis Date Anxiety Bipolar disorder ([facility]) Depression Fractures Mood disorder ([facility]) Past Surgical History: Procedure Laterality Date LAPAROSCOPIC APPENDECTOMY N/A 02/20/2022 Performed by Dean Atkins DO at [facility] Allergies Allergen Reactions Penicillins Hives Current [...] patient/family/caregiver Referring and communicating with other health congregational care pastor Belen [facility]ston MD [facility] [place] documented in this encounterThe [facility] Evaluation note* Author Molly Kulkarni [facility] CenterAuthoredAuemily 2023 9:40amPatient has been NPO other than [...] the results will be discussed with the [facility]. RESULTS: RMR = [address] 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 6. 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 Salivary cortisol x 2 ordered. [facility] Work Phone: 1(558) 939-696308-06-2024 Evaluation note* Author Molly Kulkarni [facility] CenterAuthoredPaul 2023 9:40amPatient has been NPO other than [...] the results will be discussed with the [employer]. 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 6. 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 Author Zaida Frias [facility] CenterAuthoredOctober 2023 9:20amHighest weight: 407.5 lbs. 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 6. 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 Salivary cortisol x 2 ordered. [facility] Work Phone: 1(609) 488-326608-06-2024 Evaluation note* Author Molly Kulkarni [facility] CenterAuthoHa 2023 9:40amPatient has been NPO other than [...] the results will be discussed with the [employer]. 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 6. 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 Author Kareem Tijerina [facility] CenterAuthoredOctober 2023 9:48amHighest weight: 407.5 lbs. [...] is going to start working with a manager gyn. 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 6. 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 Salivary cortisol x 2 ordered. 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 6. 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 6. 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 6. 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 Salivary cortisol x 2 ordered/pending. 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 6. 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 Author Molly Kulkarni [facility] CenterMaryam 2023 9:40amPatient has been NPO [...] the results will be discussed with the [employer]. 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 6. 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 Salivary cortisol x 2 ordered. 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 6. 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 Handout given. Our free weekly [...] and benefits of prescribed meds discussed. Initial ptnk-qu-cwdr interview/evaluation. The patient was counseled in detail on the options for weight loss in an individual setting. 55 minutes was spent caring for the patient, counseling/educating patient on the options for the treatment of obesity and related healthcare issues. The program's treatment goals were reviewed with the patient. Each aspect of the program was discussed with the patient. 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 6. 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 Handout given. Our free weekly [...] and benefits of prescribed meds discussed. Initial ewvn-tu-iqig interview/evaluation. The patient was counseled in detail on the options for weight loss in an individual setting. 55 minutes was spent caring for the patient, counseling/educating patient on the options for the treatment of obesity and related healthcare issues. The program's treatment goals were reviewed with the patient. Each aspect of the program was discussed with the patient. 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 6. 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 Salivary cortisol x 2 ordered/pending. 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 6. 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 Handout given. Our free weekly [...] and benefits of prescribed meds discussed. Initial usum-cw-qiuc interview/evaluation. The patient was counseled in detail on the options for weight loss in an individual setting. 55 minutes was spent caring for the patient, counseling/educating patient on the options for the treatment of obesity and related healthcare issues. The program's treatment goals were reviewed with the patient. Each aspect of the program was discussed with the patient. 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 6. 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 6. 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 Salivary cortisol x 2 ordered/pending. 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 6. 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 Handout given. Our free weekly [...] and benefits of prescribed meds discussed. Initial yebk-mk-ejnt interview/evaluation. The patient was counseled in detail on the options for weight loss in an individual setting. 55 minutes was spent caring for the patient, counseling/educating patient on the options for the treatment of obesity and related healthcare issues. The program's treatment goals were reviewed with the patient. Each aspect of the program was discussed with the patient. 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 6. 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 6. 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 Salivary cortisol x 2 ordered/pending. [facility] Work Phone: 1(163) 456-397603-12-2024 History of Present illness Narrative* ERLINDA Cooper - 07/21/2023 9:30 AM EDT Images from the original note were not included. [id number] [id number] Date of Service: 07/21/2023 Thank you for the referral to evaluate Jet Duncan for Pain in unspecified joint and fatigue.. This is a new patient and is seen at the request of BALJIT PISANO DO. Chief Complaint: Widespread pain SUBJECTIVE: eJt Duncan is a 18 y.o. male who [...] 02/20/2022 Performed by Dean Atkins DO at [facility] reviewed. Social History Tobacco Use Smoking status: Never Smokeless tobacco: Never Vaping Use Vaping Use: Never used Substance Use Topics Alcohol use: Not Currently Drug use: Never reviewed. Past Medical History: Diagnosis Date Anxiety Bipolar disorder ([facility]) Depression Fractures Mood disorder ([facility]) reviewed. Social [...] Admits: [x] Chest pain: went to ER [place], did EKG, concluded as a muscle cramp [...] CK was normal urine exam was normal STREET VENDOR, anti Newberry antibody, scleroderma 70 antibody, complement C3-C4, centromere antibodies, p.m. Scl antibody, andree p.m. Scl antibody, anti dsDNA antibody, U3 STREET VENDOR were all negative/ normal THC you antibody, [...] joint and fatigue Patient established care with ma on 07/21/2023 Follow up in 3 months [...] or corrected. Thank you for your understanding. [facility] Magalie Cox PA-C [address] [place] [address] Office [phone] ERLINDA Cooper 07/21/23 8174 ERLINDA Cooper 07/21/23 4117 documented in this encounterThe [facility]01-[facility] Evaluation note* Encounter Date Diagnosis Assessment Notes Treatment Notes Treatment Clinical Notes May, Elevated LFTs (ICD-10 - R79.89) The liver studies are all within normal limits. May,Fatty liver (ICD-10 - K76.0)Plan for repeat fibroscan in one year for routine surveillance. [employer] Other 12-12-2023 Evaluation note* Encounter Date Diagnosis Assessment Notes Treatment Notes Treatment Clinical Notes Apr, Fatty liver (ICD-10 - K76.0) Apr,Elevated LFTs (ICD-10 - R79.89) Apr,Hepatitis A test positive (ICD-10 - B15.9) Apr,Fatigue, unspecified type (ICD-10 - R53.83) [employer] Other 11-09-2023 Evaluation note* Encounter Date Diagnosis Assessment Notes Treatment Notes Treatment Clinical Notes Mar, Hepatitis A test positive (ICD-1 0 - B15.9) f/u after testing Mar,Elevated LFTs (ICD-10 - R79.89) Mar,Fatty liver (ICD-10 - K76.0) [place] [facility] Other 09-27-2022 Evaluation note* Encounter Date Diagnosis [...] treatment plan. Patient left in stable condition [facility] [employer] Other [place] complaint+Reason for visit Narrative* Chief Complaint 1 Month Follow Up Stomach Issues Amb Documentation Marina-Referral Leatha Diaz k76.0 r73.9 k76.0Reason for VisitFamily history of Luis thyroiditis Fatigue Fatty liver Multiple joint pain Obesities, morbid Sleep disturbance Vitamin D deficiency Abnormal weight gain Fatty liver Sleep disturbance Bipolar disorder [facility] Work Phone: Chief complaint+Reason for visit Narrative* Chief Complaint Stomach Issues Amb Documentation [place]-Referral Leatha Diaz k76.0 r73.9 k76.0 chest congestionReason for VisitFamily history of Luis thyroiditis Fatigue Fatty liver Multiple joint pain Obesities, morbid Sleep disturbance Vitamin D deficiency Abnormal weight gain Fatty liver Sleep disturbance Bipolar disorder Bronchitis Maxillary sinusitis [facility] Work Phone: Chidt complaint+Reason for visit Narrative* Chief Complaint Amb Documentation Marina-Referral Leatha Rohrbacher k76.0 r73.9 k76.0 chest congestion knee issues Mental concernsReason for VisitAbnormal weight gain Fatty liver Sleep disturbance Bipolar disorder Bronchitis Maxillary sinusitis Adult BMI 50.0-59.9 kg/sq m Fatty liver Mixed hyperlipidemia Vitamin D deficiency Bipolar disorder Left knee pain Right knee pain Depression [facility] Work Phone: Chief complaint+Reason for visit Narrative* Chief Complaint Marina-Referral Mercedes Quintanillaacher k76.0 r73.9 k76.0 chest congestion knee issues Mental concerns 4 week follow upReason for VisitAbnormal weight gain Fatty liver Sleep disturbance Bipolar disorder Bronchitis Maxillary sinusitis Adult BMI 50.0-59.9 kg/sq m Fatty liver Mixed hyperlipidemia Vitamin D deficiency Bipolar disorder Left knee pain Right knee pain Depression Adult BMI 50.0-59.9 kg/sq m Fatty liver Mixed hyperlipidemia Tachycardia Depression [facility] Work Phone: Evaluation + Plan note No data available for this section [facility] Evaluation noteNo assessment information available [facility] Work Phone: Evaluation noteNo InformationNort [facility] Other Evaluation note* Author Zaida Frias [facility] CenterAuthoredApril 2023 10:38amAssessment: Highest weight: 407.5 [...] Our exercise program was recommended with our 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 Handout given. Our free weekly [...] and benefits of prescribed meds discussed. Initial jphn-lj-kykj interview/evaluation. The patient was counseled in detail on the options for weight loss in an individual setting. [ ] minutes was spent caring for the patient, counseling/educating patient on the options for the treatment of obesity and related healthcare issues. The program's treatment goals were reviewed with the patient. Each aspect of the program was discussed with the patient. [facility] Work Phone: Evaluation note* Diagnosis Positive TENA (antinuclear antibody)- Primary Other and unspecified nonspecific immunological findings Chronic fatigue Other malaise and fatigue Pain in both hands Bilateral carpal tunnel syndrome Carpal tunnel syndrome [facility] encounter [facility] Diagnosis Pilonidal abscess- Primary Pilonidal cyst with abscess documented in this encounter [facility]* Diagnosis Pilonidal disease- Primary documented in this encounter [facility]* Diagnosis Epididymal cyst- Primary Other specified disorder of male genital organs Right hydrocele Unspecified hydrocele documented in this encounter [facility]* Diagnosis Pilonidal disease- Primary documented in this encounter [facility]* Diagnosis Epididymal cyst- Primary Other specified disorder of male genital organs documented in this encounter [facility]* Diagnosis Onset Date Resolution Status Admit Date Ankle pain, right acuteOctober 2024 8:30amFatty liveracuteOctober 2024 8:30amMixed hyperlipidemiaacuteOctober 2024 8:30amRight foot painacuteOctober 2024 8:30am [facility] Work Phone: Evaluation note* Diagnosis Spermatocele- Primary Spermatocele Spermatocele [facility] Diagnosis Spermatocele- Primary Pilonidal disease- Primary Spermatocele documented [facility] this encounter [facility] Narrative - Reported* Type Description Date Medical History bi polar [facility] [employer] Other Hisdtvs general Narrative - Reported* Type Description Date Medical History bi polar Surgical Historyappendectomy [facility] [employer] Other Hisnmwl general Narrative - Reported* Type Description Date Medical History bi polar Surgical HistoryappendectomyHospitalization Historysee above [facility] [employer] Other Hospital Discharge instructionsAmbulatory Orders* Referral to Psychiatry Time Frame: 08/31/24, Location: None Selected [facility] Work Phone: Instructions* Attachments The following attachments cannot be sent through Care Everywhere. * Carpal tunnel syndrome (Danish) * Fibromyalgia (Danish) * Gabapentin, ADULT (Danish) * Duloxetine, ADULT (Danish) * Meloxicam, ADULT (Danish) documented in this [facility]Pro[facility] SystemInstructionsNot on file documented in this encounterProUniversity [facility] SystemInstructionsNot on file documented in this encounterProUniversity [facility] SystemInstructionsNot on file documented in this encounterProMedica Health SystemInstructionsNot on file documented in this encounterProSpringhill [facility] SystemInstructionsNot on file documented in this encounterProSpringhill [facility] SystemInstructionsNot on file documented in this encounterProUniversity [facility] SystemInstructionsNot on file documented in this encounterProSpringhill Medical Center Health SystemInstructionsNot on file documented in this encounterProUniversity [facility]als [facility] SystemProgress note No data available for this section [facility] Reason for referral (narrative)No reason for referral information availableC[facility] Work Phone: Reason for visit NarrativePATIENT IS HERE AT THE REQUEST OF DR. PISANO FOR HEP INFECTION AND ELEVATED LIVER ENZYMES. US REGAN MARTINEZ ADDER IN PT DOCS-LABS [place] [facility] Other Summary Purpose Family History No Family [...] Code02/20/2022 8:51 AM 02/20/2022 1:58 PMDate ActivatedDate XzqeotzdngrYhgombpn88/13/2022 8:51 AM 02/20/2022 1:58 PMDate ActivatedDate InactivatedComments07/11/2024 8:34 PM07/15/2024 7:44 PMDate ActivatedDate FujrdghdihrPuozaukx56/13/2022 8:51 AM02/20/2022 1:58 PMDate ActivatedDate InactivatedComments07/11/2024 8:34 PM07/15/2024 7:44 PMDate ActivatedDate DacltpsmlaiOwksgido86/13/2022 8:51 AM02/20/2022 1:58 PM Chief Complaint and Reason for Visit Chief Complaint B15.9 R79.89 Chief Complaint B15.9 R79.89 Fatty Liver Chief Complaint B15.9 R79.89 Fatty Liver r79.89 r53.83 Chief Complaint M79.1 M25.50,R 76.0 UPPER BACK PAIN, KNEE PAIN FAT 1 Month Follow Up Stomach Issues Amb Documentation [place]-Referral Leatha Mckennaon for VisitFamily history of Luis thyroiditis Fatigue [...] tunnel syndrome [place] [address] [place] [address] [address] [place] [address] Referral IDStatusReasonStart DateExpiration DateVisits RequestedVisits [id number] Review/ Reason CONSULT Diagnosis 1 Fatigue (R53.83) Diagnosis [...] section and content) DATE CREATED AUTHOR 01/06/2018 [facility] DATE CREATED AUTHOR AUTHOR'S ORGANIZ ATION 04/19/2021 [facility] DATE CREATED AUTHOR AUTHOR'S ORGANIZ ATION 05/02/2021 [facility] DATE CREATED AUTHOR AUTHOR'S ORGANIZ ATION 09/22/2022 [facility] DATE CREATED AUTHOR AUTHOR'S ORGANIZ ATION 06/22/2023 [facility] DATE CREATED AUTHOR AUTHOR'S ORGANIZ ATION 04/02/2024 [facility] DATE CREATED AUTHOR AUTHOR'S ORGANIZ ATION 07/07/2024 [facility] DATE CREATED AUTHOR AUTHOR'S ORGANIZ ATION 01/08/2025 [facility] DATE CREATED AUTHOR AUTHOR'S ORGANIZ ATION 01/12/2025 [facility] DATE CREATED AUTHOR AUTHOR'S ORGANIZ ATION 03/14/2025 [facility] DATE CREATED AUTHOR AUTHOR'S ORGANIZ ATION 03/18/2025 [facility] REASON FOR VISIT (unrecogniz ed section and content) ReasonCommentsNew SjpjjqlA99.50- Pain in unspecified joint R53.83 - Other fatigue R76.8- Other specified abnormal immunological findings in serumReason CommentsCystPilonidal cyst, [facility] ER 01/21/24ReasonCommentsCystRECURRENT PILONIDAL CYSTReasonCommentsNew PatientIOC Er fu Epididymal cyst// Right hydrocele// [place] BCBSSpecialtyDiagnoses / ProceduresReferred By ContactReferred To Contact Urology Diagnoses Epididymal cyst Right hydrocele Tyler Bolton MD [address] [facility] [place] [address] Phone: tel: fax: [facility] [address] [place] [address] Phone: tel: fax: Referral IDStatusReasonStart DateExpiration DateVisits RequestedVisits [id number] Review Specialty Services Required /[id number]-[id number] op excision of pilonidal cyst performed 01/02/25 at PMHReasonCommentssurgical discussionReasonCommentsFollow-up 1 MONTH FOLLOW UP FROM 02/13/25 APPT, POST OP - EXCISION OF PILONIDAL PERFORMED 01/02/25 BY [facility] Care Teams (unrecognized sec tion and content) Team Status: Active Member Role Status Dates Baljit Pisano DO Primary Care Provider Active Team Status: Inactive Member Role Status Dates Baljit Pisano DO Primary Care Provider Active Genesis Ribeiro ProviderActive Team Status: Inactive Member Role Status Dates Wilver Felton MD Attending Provider Active Nabila Smyth [facility] ProviderActive Team Status: Inactive Member Role Status Dates Baljit Pisano DO Primary Care Provider Active Genesis Daly ProviderActive Team Status: Active Member Role Status Dates Leatha Diaz APRN CHRONIC CARE NURSE-C Primary Care Provider Active Team Status: Inactive [...] Member Role Status Dates Leatha Diaz APRN CHRONIC CARE NURSE-C Primary Care Provider, Attending Provider Active Start: July 07, 2023 End: July 07, 2023 Team Status: Active Member Role Status Dates Leatha Diaz APRN CHRONIC CARE NURSE-C Primary Care Provider, Attending Provider Active Start: July 08, 2023 Team Status: Active Member Role Status Dates Leatha Diaz APRN CHRONIC CARE NURSE-C Primary Care Provider Active Start: August 07, 2023 Montserrat Cardoza ProviderActiveStart: August 07, 2023 Team Status: Inactive Member Role Status Dates Leatha Diaz APRN CHRONIC CARE NURSE-C Primary Care Provider Active Start: August 13, 2023 End: August 12Genesis Portillo ProviderActiveStart: August 13, 2023 End: August 13, 2023 Team Status: Active Member Role Status Dates Leatha Diaz APRN CHRONIC CARE NURSE-C Primary Care Provider Active Start: August 07, 2023 Erick Rogers ProviderActiveStart: August 07, 2023 Team Status: Inactive Member Role Status Dates Leatha Diaz APRN CHRONIC CARE NURSE-C Primary Care Provider Active Start: August 19, 2023 End: August 18ROS Tolentinottcris ProviderActiveStart: August 19, 2023 End: August 19, 2023 Team Status: Inactive Member Role Status Dates Leatha Diaz APRN CHRONIC CARE NURSE-C Primary Care Provider, Attending Provider Active Start: August 27, 2023 End: August 27, 2023 Team Status: Inactive Member Role Status Dates Leatha Diaz [employer] CHRONIC CARE NURSE-C Primary Care Provider Active Start: September 10, 2023 End: September 09johnathan Tijerina MDAttending ProviderActiveStart: September 10, 2023 End: September 10, 2023 Team Status: Inactive Member Role Status Dates Leatha Diaz APRN CHRONIC CARE NURSE-C Primary Care Provider, Attending Provider Active Start: September 24, 2023 End: September 24, 2023 Team Status: Inactive Member Role Status Dates Leatha Diaz APRN CHRONIC CARE NURSE-C Primary Care Provider, Attending Provider Active Start: October 12, 2023 End: October 12, 2023 Team Status: Active Member Role Status Dates Leatha Diaz APRN CHRONIC CARE NURSE-C Primary Care Provider Active Start: August 07, 2023 Erick Meier ProviderActiveStart: August 07, 2023 Team Status: Inactive Member Role Status Dates Leatha Diaz APRN CHRONIC CARE NURSE-C Primary Care Provider Active Start: October 22, 2023 End: October 21johnathan Tijerina MDAttending ProviderActiveStart: October 22, 2023 End: October 22, 2023 Team Status: Inactive Member Role Status Dates Leatha Diaz APRN CHRONIC CARE NURSE-C Primary Care Provider, Attending Provider Active Start: November 09, 2023 End: November 09, 2023 Team Status: Inactive Member Role Status Dates Leatha Diaz APRN CHRONIC CARE NURSE-C Primary Care Provider Active Start: December 09, 2023 End: December 08johnathan Tijerina MDAttending ProviderActiveStart: December 09, 2023 End: December 09, 2023 Team Status: Inactive Member Role Status Dates Leatha Diaz APRN CHRONIC CARE NURSE-C Primary Care Provider Active Start: December 15, 2023 End: December 14johnathan Tijerina MDAttending ProviderActiveStart: December 15, 2023 End: December 15, 2023 Team Status: Inactive Member Role Status Dates Leatha Diaz APRN CHRONIC CARE NURSE-C Primary Care Provider, Attending Provider Active Start: December 31, 2023 End: December 31, 2023 Team Status: Inactive Member Role Status Dates Leatha Diaz APRN CHRONIC CARE NURSE-C Primary Care Provider, Attending Provider Active Start: January 28, 2024 End: January 28, 2024 Team Status: Inactive Member Role Status Dates Leatha Diaz APRN CHRONIC CARE NURSE-C Primary Care Provider Active Start: February 09, 2024 End: February 08johnathan Tijerina MDAttending ProviderActiveStart: February 09, 2024 End: February 09, 2024 Team Status: Inactive Member Role Status Dates Leatha Diaz APRN CHRONIC CARE NURSE-C Primary Care Provider, Attending Provider Active Start: February 25, 2024 End: February 25, 2024 Team Status: Inactive Member Role Status Dates Leatha Diaz APRN CHRONIC CARE NURSE-C Primary Care Provider Active Start: March 222023 End: March 22, 2024Wilver Felton MDAttending ProviderActiveStart: March 22, 2024 End: March 22, 2024 Team Status: Active Member Role Status Dates Leatha Diaz APRN CHRONIC CARE NURSE-C Primary Care Provider Active Start: March 222023 Wilver Felton MDAttending Provider, Other ProviderActiveStart: March 22, 2024 Team Status: Inactive Member Role Status Dates Leatha Diaz APRN CHRONIC CARE NURSE-C Primary Care Provider, Attending Provider Active Start: April 18, 2024 End: April 18, 2024 Team Status: Inactive Member Role Status Dates Leatha Diaz APRN CHRONIC CARE NURSE-C Primary Care Provider Active Start: June End: June 16, 2024Mandeep Esquivel ProviderActiveStart: June 16, 2024 End: June 16, 2024Team MemberRelationshipSpecialtyStart DateEnd Date Baljit Pisano DO [address] [place] [address] [facility]01/07/17Team MemberRelationshipSpecialtyStart DateEnd Date Leatha Diaz APRN-CHRONIC CARE NURSE [address] [id number] PCP - GeneralNurse Practitioner01/21/24 Team Status: Active Member Role Status Dates Leatha Diaz APRN CHRONIC CARE NURSE-C Primary Care Provider Active Start: July 062024 Alexei Acunaending ProviderActiveStart: July 06, 2024 Team Status: Inactive Member Role Status Dates Leatha Diaz APRN CHRONIC CARE NURSE-C Primary Care Provider, Attending Provider Active Start: August 31, 2024 End: August 31, 2024 Team Status: Inactive Member Role Status Dates Leatha Diaz APRN CHRONIC CARE NURSE-C Primary Care Provider, Attending Provider Active Start: September 22, 2024 End: September 22, 2024 Team Status: Inactive Member Role Status Dates Leatha Diaz APRN CHRONIC CARE NURSE-C Primary Care Provider, Attending Provider Active Start: October 13, 2024 End: October 13, 2024Team MemberRelationshipSpecialtyStart DateEnd Date Leatha Diaz APRN-CHRONIC CARE NURSE [address] [id number] PCP - GeneralNurse Practitioner01/21/24Team MemberRelationshipSpecialtyStart Date End Date Leatha Diaz APRN-CHRONIC CARE NURSE [address] [id number] PCP - GeneralNurse Practitioner01/21/24Team MemberRelationshipSpecialtyStart Date End Date Leatha Diaz APRN-CHRONIC CARE NURSE [address] [place] [address] PCP - GeneralNurse Practitioner01/21/24Team MemberRelationshipSpecialtyStart Date End Date Leatha Diaz APRN-CHRONIC CARE NURSE [address] [facility] [place] [address] PCP - GeneralNurse Practitioner01/21/24Team MemberRelationshipSpecialtyStart Date End Date Leatha Diaz APRN-CHRONIC CARE NURSE [address] [facility] [place] [address] PCP - GeneralNurse Practitioner01/21/24Team MemberRelationshipSpecialtyStart Date End Date Leatha Diaz APRN-CHRONIC CARE NURSE [address] [facility] [place] [address] PCP - GeneralNurse Practitioner01/21/24 Team Status: Active Member Role/Relationship Status Dates Leatha Diaz APRN CHRONIC CARE NURSE-C Primary Care Provider Active Team Status: Active Member Role/Relationship Status Dates Leatha Diaz APRN CHRONIC CARE NURSE-C Primary Care Provider Active Start: January 04, 2025 Cj Acuna ProviderActiveStart: January 04, 2025 Team Status: Inactive Member Role/Relationship Status Dates Leatha Diaz APRN CHRONIC CARE NURSE-C Primary Care Provider Active Start: February End: March 01, 2025Leatha Diaz APRN CHRONIC CARE NURSE-CAttending ProviderActive Start: March 01, 2025 End: March 01, 2025Team MemberRelationshipSpecialtyStart DateEnd Date Leatha Diaz APRN-CHRONIC CARE NURSE [address] [facility] [place] [address] PCP - GeneralNurse Practitioner01/21/24Team MemberRelationshipSpecialtyStart Date End Date Leatha Diaz APRN-CHRONIC CARE NURSE [address] [facility] [place] [address] PCP - GeneralNurse Practitioner01/21/24Team MemberRelationshipSpecialtyStart Date End Date SocorroLeatha daleKASHIF [address] [place] [address] PCP - GeneralNurse Practitioner01/21/24 Goals (unrecognized section [...] BE BASED ON THE PRIMARY CLINICAL RECORDS. [employer] provides no warranty or guarantee of the accuracy or completeness of information in this document.
[2025-03-18 08:34] VITALS: BP 152/102; PULSE 76; O2SAT 98
--- NOTE | 2025-03-18 14:20 | ED_ITS ---
HPI HPI - General Adult General Chief complaint: Wound/Laceration Stated complaint: RECTAL BLEEDING Time Seen by Provider: 03/18/25 07:02 Source: patient Mode of arrival: walk-in History of Present Illness HPI narrative: Patient is a 19-year-old male presenting to the emergency department for wound check. Patient states he had his pilonidal cyst excised just over a year ago. He had a routine follow-up with the surgeon a couple weeks ago, at which time she stated everything looked okay with the wound. He states he has intermittent bleeding from the surgical site, however today just prior to arrival, he had more significant bleeding than usual. Since his arrival to ED, he states that the bleeding is subsided. He denies any associated lightheadedness, dizziness, feeling faint. He denies being on blood thinners. He denies any issues with defecation or urination. He denies any fevers or chills or abdominal pain. No chest pain or shortness of breath. Related Data Home Medications ?Medication ?Instructions ?Recorded ?Confirmed sertraline 50 mg tablet 50 mg PO DAILY 01/24/2410/09 Previous Rx's ?Medication ?Instructions ?Recorded ibuprofen 600 mg tablet 600 mg PO Q8H #10 tabs 10/21 Allergies Allergy/AdvReac Type Severity Reaction Status Date / Time Penicillins Allergy Hives Verified 03/18/25 06:52 Opioid HPI Opioid Management Most Recent Opioid Data: Last Pain Scale 5 10/21/24, 14:21 Review of Systems ROS Status of ROS 10 or more systems reviewed and unremark able except as noted in history and below PFSH PFSH Social History Little interest or pleasure in doing things: not at all Feeling down, depressed, or hopeless: not at all Exam Narrative Exam Narrative: CONSTITUTIONAL: Well-appearing, answering questions and following commands appropriately SKIN: Was warm and dry. EYES: Sclerae white. No conjunctival pallor. EARS, NOSE, THROAT: Moist oral mucosa. RESPIRATORY: Nonlabored respirations. CARDIOVASCULAR: Normal rate and regular rhythm. There is no S3, S4, murmur, rub. GASTROINTESTINAL: Abdomen is soft, nontender, nondistended. MUSCULOSKELETAL: At the superior gluteal cleft, I do appreciate the surgical site from his prior pilonidal cyst excision. The wound appears healthy with granulation tissue. There is no active bleeding. There is no purulent drainage. No surrounding induration, erythema, or cellulitic changes. NEUROLOGIC: Patient is awake and alert. Facies were symmetrical. Constitutional Vital Signs, click to edit/add: Last Vital Signs Temp 98.3 F 03/18/25 06:52 Pulse 76 03/18/25 08:34 Resp 18 03/18/25 08:34 BP 152/102 H 03/18/25 08:34 Pulse Ox 98 03/18/25 08:34 O2 Del Method Room Air 03/18/25 08:34 Course Vital Signs Vital signs: Vital Signs Temperature 98.3 F 03/18/25 06:52 Pulse Rate 90 03/18/25 06:52 Respiratory Rate 20 03/18/25 06:52 Blood Pressure 138/91 03/18/25 06:52 Pulse Oximetry 98 03/18/25 06:52 Oxygen Delivery Method Room Air 03/18/25 06:52 Temperature 98.3 F 03/18/25 06:52 Pulse Rate 76 03/18/25 08:34 Respiratory Rate 18 03/18/25 08:34 Blood Pressure 152/102 H 03/18/25 08:34 Pulse Oximetry 98 03/18/25 08:34 Oxygen Delivery Method Room Air 03/18/25 08:34 Medical Decision Making [facility] Narrative Medical decision making narrative: Patient is a 19-year-old male, history significant for pilonidal cyst excision over a year ago, presenting to the emergency department for concerns of bleeding from the surgical site. Vital signs arrival are within normal limits. He is afebrile and hemodynamically stable. On examination, the wound appears to be healing appropriately with normal granulation tissue. There is no active bleeding or evidence of infection. He just saw his surgeon 2 weeks ago, at which time she had no acute concerns. I do believe the patient is stable for discharge. They were instructed to follow up with his surgeon for further care. Return precautions were given including any new or worsening symptoms. Patient understands and agrees to the plan. FINAL IMPRESSION: #Acute encounter for wound check DISPOSITION: Discharged home CONDITION: Good Discharge Plan Discharge Chief Complaint: Wound/Laceration Clinical Impression: Pilonidal cyst without infection Patient Disposition: Home, Self-Care Time of Disposition Decision: 07:13 Condition: Good Mode of Transportation: Private Vehicle Prescriptions / Home Meds: No Action sertraline 50 mg tablet 50 mg PO DAILY ibuprofen 600 mg tablet 600 mg PO Q8H Qty: 10 0RF Print Language: Swedish Instructions: Pilonidal Cyst Excision (DC) Referrals: SHERRI ORDOÑEZ [Primary Care Provider, Unknown] - 1 week Discharge Date/Time: 03/18/25 08:37
== END 2025-03-18 08:37 | disposition home or self-care (01) ==
LOC: ER 08:04
PROVIDERS: Emergency Provider Student in an Organized Health Care Education/Training Program; PCP Nurse Practitioner Family
DX: L05.91 Pilonidal cyst without abscess (principal)
CPT/HCPCS: 99281

== ENCOUNTER 2025-05-01 06:46 | Outpatient (OUT) | payer BC, SELFPAY ==
--- OUTSIDE RECORDS SUMMARY | 2024-11-02 03:45 | XMS_ITS ---
Author Organization [facility] Address [address] [place] [address] Care Team Providers Care Manager Money Name Role Phone Caleb Corbin Primary Care Provider SHERRI ORDOÑEZ Unavailable [phone] REASON FOR VISIT 1 month f/u Encounters Encounter Location Date Provider Diagnosis [place] [address] [place] [address] 2024 Caleb Corbin Plan Of Treatment No Information Progress Notes * JET HERRERA ADOB:2005 (19 yo M)Acc No.[id number]:11/02/2024 Behavioral Health Patient: JET CASEY :?CINDY MarieePDOB:2005???Age:19 Y???Sex: MaleDate:11/02/2024Phone:[phone]:[address] [place] [address] Subjective: * Chief Complaints: * 1 month f/u Billing Information: * Procedure Codes: * Electronic signature of TE Mariee on 05/01/2025 at 06:49 AM ESTSign off status: Pending * Provider: TE Valles Date: 0 11/02/2024 Generated for Printing/Faxing/eTransmitting on:?05/01/2025 06:49 AM EST
--- OUTSIDE RECORDS SUMMARY | 2025-04-17 06:36 | XMS_ITS | Continuity of Care Document ---
Author Organization [facility] Address [address] [place] [address] Phone Care Team Providers Care Otr Owner Operator Name Role Phone Leatha Diaz APRN Primary Care Provider Leatha Diaz APRN Attending Provider [phone] Adelaida Jiang CMA Attending Provider [facility] Care Teams Patient Care Team Team Status: Active Member Role/Relationship Status Dates Leatha Diaz APRN DUST COLLECTOR-C Primary Care Provider Active Visit Care Team Team Status: Inactive Member Role/Relationship Status Dates Leatha Diaz APRN DUST COLLECTOR-C Primary Care Provider Active Start: February End: March 01, 2025Leatha iDaz APRN DUST COLLECTOR-CAttending ProviderActive Start: March 01, 2025 End: March 01, 2025 Visit Care Team Team Status: Active Member Role/Relationship Status Dates Leatha Diaz APRN DUST COLLECTOR-C Primary Care Provider Active Start: February Leatha Diaz APRN DUST COLLECTOR-CAttending ProviderActiveStart: March 03, 2025 Visit Care Team Team Status: Active Member Role/Relationship Status Dates Leatha Diaz APRN DUST COLLECTOR-C Primary Care Provider Active Start: March 202024 Adelaida Jiang CMAAttending ProviderActiveStart: March 20, 2025 Visit Care Team Team Status: Inactive Member Role/Relationship Status Dates Leatha Diaz APRN DUST COLLECTOR-C Primary Care Provider Active Start: March 222024 End: March 22, 2025Leatha Diaz APRN DUST COLLECTOR-CAttending ProviderActive Start: March 22, 2025 End: March 22, 2025 Patient Care Team Team Status: Inactive Member Role/Relationship Status Dates Leatha Diaz APRN DUST COLLECTOR-C Primary Care Provider Active Start: April End: April 17, 2025Leatha Diaz APRN DUST COLLECTOR-CAttending ProviderActive Start: April 17, 2025 End: April 17, 2025 Chief Complaint and Reason for Visit Chief Complaint Admit Date R Ankle Swelling March 01, 2025 8 :30am Amb Documentation March 20, 2025 11:25am Ankle swelling f/u March 22, 2025 8:23am headaches, blurred vision April 17, 2025 11:00am Reason for Visit Admit Date Ankle pain, right March 01, 2025 8 :30am Fatty liver March 01, 2025 8 :30am Mixed hyperlipidemia March 01, 2025 8:30am Obesities, morbid March 01, 2025 8 :30am Right foot pain March 01, 2025 8 :30am Wellness examination March 01, 2025 8:30am Bipolar disorder March 01, 2025 8 :30am Ankle pain, right March 22, 2025 8:23am Right foot pain March 22, 2025 8:23am Swelling of right ankle joint March 112024 8:23am Headache April 17, 2025 1 1:00am New onset of headaches April 17 11:00am Allergies, Adverse Reactions, Alerts Allergen Type Severity Reaction Last Updated Verified Status Penicillins Allergy Severe Hives April 17, 2025 11:02am Y es Active Social History Smoking Status Status Start Date End Date Date of Observa tion Never smoked tobacco (finding) March 21, 2025 12:13pm Observation Status Observation Response Date of Response Legal Sex Male (finding) [facility] Family History Relationship Condition Age at Onset Recorded Date/T priya father Unknown family medical history Unknown motherFibromyalgiaUnknownDisorder of thyroidUnknown Problems Active Problems Problem Diagnosis/Recorded Date Onset Date Stat us Sciatica, right side June 16, 2024 10:51am Unknow n Active Frequent nocturnal awakening February 28, 2024 8:37am Unknown Active Fatigue July 07, 2023 2:11pm Unknown A ctive Sleep disturbance July 08, 2023 9:09am Unknown Active Obesities, morbid July 08, 2023 9:09am Unknown Active Fatty liver July 06, 2023 12:20pm Unknown Active Positive TENA (antinuclear antibody) July 13, 2023 10 :26am Unknown Active Abnormal weight gain August 13, 2023 10:12am Unknown Active Anxiety August 31, 2024 12:25pm Unknown Act ifrah Bipolar disorder July 06, 2023 12:20pm Unknown Active Depression August 13, 2023 10:21am Unknown Acti ve Wellness examination March 01, 2025 8:06am Unknown Active Headache April 17, 2025 11:30am Unknown A ctive Blood glucose elevated August 13, 2023 9:52am Unknown Active Mixed hyperlipidemia September 10, 2023 10:21am Unknown Active Adult BMI 50.0-59.9 kg/sq m September 10, 2023 10:22am Unkn own Active Ankle pain, right March 01, 2025 7:51am Unknown Active Right foot pain March 01, 2025 7:51am Unknown Active New onset of headaches April 17, 2025 11:31am Unkn own Active Vitamin D deficiency July 07, 2023 2:11pm Unknow n Active Swelling of right ankle joint March 22, 2025 8:44 am Unknown Active Inactive/Resolved Problems Problem Diagnosis/Recorded Date Onset Date Stat us Change in bowel habit December 31, 2023 9:51am Unknown Resolved Morning headache February 28, 2024 8:37am Unknown Resolved Rib pain on right side October 13, 2024 7:45am Unknown Resolved Family history of Luis thyroiditis July 07, 2023 2:11pm Unknown Resolved Left lower quadrant abdomina l tenderness December 31, 2023 9:53am Unknown Resolved Abdominal cramping December 31, 2023 9:51am Unknown Resolved Pilonidal abscess of teri cleft February 09, 2024 8:1 3am Unknown Resolved Multiple joint pain July 08, 2023 9:08am Unknown Resolved Pilonidal cyst January 28, 2024 1:47pm Unknown Resolved Maxillary sinusitis August 27, 2023 9:56am Unknown Resolved Tachycardia October 22, 2023 9:09am Unknown Resol rodolfo Bloating December 31, 2023 9:51am Unknown Res olved Right knee pain September 24, 2023 1:51pm Unknown Res olved Blood in stool December 31, 2023 9:50am Unknown R esolved Decreased appetite December 31, 2023 9:53am Unknown Resolved Abdominal pain February 25, 2024 3:15pm Unknown Resolved Bronchitis August 27, 2023 9:56am Unknown Reso lved Medications Medication Status Dose Units Route Directions Qty Days Refills S tart Date Stop Date End Date Reason(s) Instructions Adherence Cholecalciferol (Vitamin D3) 1,250 mcg (50,000 unit) capsule Discontinued 1250 MCG PO every week 5 30 1 July 09, 2023 12:00am October 22, 2023 8:43amtake above dose for 8 weeks and then start 2,000 units daily of OTC vitamin d3Sod Picosulf-Mag Ox-Citric Ac (Clenpiq) 10 mg-3.5 gram- 12 gram/175 mL qvgiwyzqGpeuvruaxstc675WCRL.FJOFKLJ23284Jrqcxtu 2023 11:00pmNov2023 9:58amFollow instructions given by officePantoprazole 40 mg tablet,delayed release (DR/EC)Yukaoyqkgodh12XEZLHpvdq80320Wcjqmxib 12th, 2024 12:00amJune 2024 7:33amIbuprofen 200 mg wiukamJhpezknokqze110TCERApino 6 hours as neededFebruary 2023 12:00amJune 2023 8:43amSemaglutide (Weight Loss) (Wegovy) 0.25 mg/0.5 mL pen injectorDiscontinued0.25MGSUBCUTevery uxdb2600Dagbh 2023 11:00pmMay 2023 9:37amadminister weeks 1 through 4 of therapycholecalciferol (vitamin D3)Visttokrsqzu1BVDVQHnpvlDwec 2023 11:00pmNov2023 9:58amSertraline 25 mg oazynqLcezeypyfgbt75AZQEQnbkt 42989Cwkq 2023 11:00pmJuly 2023 7:43amDepression Depression, unspecifiedPrednisone 20 mg mgjmvfVnmcihaatmne58GBMK.ZLKIYMM131 June 16, 2024 12:00amApril 2024 12:01pmTake 3 tabs po daily x 3 days, then take 2 tabs po daily x 3 days, then take 1 tab po daily x 3 days. Hydroxyzine Hcl 50 mg ynjwygEzxmvlvobiae08WJUPRhizl times daily as neededApril 2024 11:00pmJune 2024 7:33amSertraline 100 mg vsnxkqAofycxebdtqs990JW PODailyApril 2024 11:00pmJune 2024 7:33amBuspirone 5 mg tablet Nkhgylbovzsu1DALLDaoqk pwxlg60116Emqvm 2024 11:00pmMay 2024 8:21am Anxiety Anxiety disorder, unspecifiedBuspirone 10 mg hafoipLpvyuzaqwlht67UVYMZcgfl daily 558229Meh 2024 8:21amJun2024 7:33amAnxiety Anxiety disorder, mgcrsaondenSkijzmlsvy-Faxvmxkiyrcao-Pnye 50-300-40 mg capsule ActiveCAPPOas neededDeceer 2024 12:00amComplies with drug therapy Propranolol 40 mg emwsyyRqxjvk45VLMCJayvu87185Fryloqqb 8th, 2025 12:00amHeadache Headache, unspecifiedComplies with drug therapyMethylprednisolone (Medrol (Vincent)) 4 mg tablets,dose zjykPjfjtw4DPgzm package jwhihjpdqu957Nixxfdiv 2024 12:00amPO PER PKG DIRComplies with drug therapySemaglutide (Weight Loss) (Wegovy) 0.25 mg/0.5 mL pen injectorDiscontinued0.25MGSUBCUTevery weekSeptember 10, 2023 9:37amMay 2023 9:55amadminister weeks 1 through 4 of therapy Doxycycline Monohydrate 100 mg gotkuiVowervewkoiz618WQCQRyspu ijinp27908Parwn 2023 11:00pmMay 2023 9:35amMaxillary sinusitis Bronchitis Chronic maxillary sinusitis Bronchitis, not specified as acute or chronicBenzonatate 200 mg capsule Vvadcuqwjxba168OYZCAsjct times daily as needed for lmjlm85086Csilt 2023 11:00pmMay 2023 9:35amBronchitis Bronchitis, not specified as acute or chronicSertraline 50 mg tabletDiscontinued 01HUIKKenls27345Twci 2023 7:42amOctober 2023 2:36pmDepression Depression, unspecifiedAzithromycin 250 mg rfhrqzPlgrmawesqyp830SDDAcjrgv290Rppy 2023 11:00pmJuly 2023 10:26amBronchitis Bronchitis, not specified as acute or chronicTake 2 tablets today and then 1 for the next 4 daysSemaglutide (Ozempic) 0.25 mg or 0.5 mg (2 mg/3 mL) pen injector Discontinued0.25MGSUBCUTevery weekSeptember 2023 11:00pmOctober 2023 2:36pmsampleDicyclomine 10 mg apoqtclEojhbigvcytz62RMLGVklrd times daily as needed for abdominal yebb40243Xfalcjd 2023 11:00pmNovember 2023 9:58amAbdominal pain Unspecified abdominal painSulfamethoxazole-Trimethoprim (Bactrim Ds) 800-160 mg dtgoffGcyvwcxhbspm1TITPTPmrtw jcxze3295Bzxtemuf 2023 12:00amFebruary 2024 10:01amPilonidal cyst Pilonidal cyst without abscessAripiprazole 5 mg indvliKgzudt9WUQYPlxuaLwgc 2024 11:00pmComplies with drug therapy Immunizations Immunization Event Date Not Given Reason Dose Number [employer] Lot Number Reason(s) Given Vaccine Information Statement (VIS) Detail Administration Location Haemophilus B Conjugate/HepB- Comvax September 13 04 diphtheria, TT and 5 pertussis antigensAugust 2012diphtheria, TT and 5 pertussis antigensSeptember 2012diphtheria, TT and 5 pertussis antigens July 20, 2013DTap, unspecifiedMay 2003Hepatitis A Vaccine, adol/ped, 2 doseAugust 2012Hepatitis A Vaccine, adol/ped, 2 doseMarch 2013 Hepatitis B Vaccine, adol/ped dosageAugust 2012Hepatitis B Vaccine, adol/ped dosageSeptember 2012Hepatitis B Vaccine, adol/ped dosageDecember 2012Inactivated Poliovirus VaccineMay , 2003Inactivated Poliovirus VaccineAugust 2012Inactivated Poliovirus VaccineSeptember 2012 Inactivated Poliovirus VaccineDecember 2012Inactivated Poliovirus Vaccine December 29, 2013Meningococcal QCA0DHpakttkhd2014Meningococcal MCV4O January 04, 2016Meningococcal YXG9LIyopab 2020Measles, Mumps, and Rubella Virus VaccineAugust 2012Measles, Mumps, and Rubella Virus VaccineSeptember 2012Pneumococcal Conjugate Vaccine, 7 valentMay 2003Tetanus, Diphtheria, Pertussis (Tdap)January 18, 2015Tetanus, Diphtheria, Pertussis (Tdap)January 04, 2016Varicella Virus VaccineAugust 2012Varicella Virus VaccineDecember 2012 Relevant Diagnostic Tests and/or Laboratory Data Laboratory Results Test Collection Date/Time Result Date/Time Result Interpretation Reference Range Result Comment Performing Site Cholesterol/HDL Ratio March 03, 2025 9:05am March 032024 9:05am 4.5 3.3 - 4.4 LOW RISK4.4 - 7.1 AVERAGE RISK7.1 - 11.0 MODERATE RISK>11.0 HIGH RISK Anion GapOctmon[facility] 2024 9:05amOctmonroe county medical [facility] 2024 9:05am16.3Basophils # (Auto)March 03, 2025 9:05amOctmonroe county medical center 2024 9:05am0.1 10 3/uL0.0-0.1 Cholesterol LevelAsc[facility] 2024 9:05amOctober 2024 9:69xq748 mg/dL <=200Albumin/Globulin RatioOctmonroe county medical center 2024 9:05amOctmonroe county medical center 2024 9:05am0.9 Basophils (%) (Auto)March 03, 2025 9:05amOctmonroe county medical center 2024 9:05am0.9 % 0.2-2.0HDL CholesterolAscension [facility] 2024 9:05amOctmonroe county medical center 2024 9:05am37 mg/dL Below low ufgccc48-75> or =60 mg/dl - LOW CARDIOVASCULAR RISK<40 mg/dl - HIGH CARDIOVASCULAR RISKAlbuminOct2024 9:05amOct2024 9:05am3.7 g/dL3.4-5.0Eosinophils # (Auto)March 03, 2025 9:05amOct2024 9:05am0.1 10 3/uL0.0-0.7LDL Cholesterol, CalculatedOct2024 9:05am March 03, 2025 9:05am98.0 mg/dL<100 mg/dl XPMGXNB987-289 mg/dl NEAR OR ABOVE RYZRXIR486-212 mg/dl BORDERLINE USSB577-187 mg/dl HIGH>190 mg/dl VERY HIGH Alkaline PhosphataseOct2024 9:05amOct2024 9:05am86 U/L 46-116Eosinophils (%) (Auto)March 03, 2025 9:05amOct2024 9:05am 1.9 %0.9-7.0Triglycerides LevelOct2024 9:05amOct2024 9:86im752 mg/dLAbove high normal<=150Alanine Aminotransferase (ALT/SGPT)March 03, 2025 9:05amOct2024 9:50rm708 U/LAbove high tacubb32-59 HematocritOct2024 9:05amOct2024 9:05am43.5 %42.0-54.0VLDL CholesterolOct2024 9:05amOct2024 9:05am32.8 mg/dLAspartate Amino Transf (AST/SGOT)March 03, 2025 9:05amOct2024 9:05am70 U/L Above high snapwd08-36YlrbvfphqiXplputc 24th, 2025 9:05amOct2024 9:05am15.0 g/dL14.0-18.0BUN/Creatinine RatioOct2024 9:05amOct2024 9:05am13.4Immature Granulocyte # (Auto)March 03, 2025 9:05am March 03, 2025 9:05am0.01 10 3/uL0.00-0.03Blood Urea NitrogenOct2024 9:05amOctober 2024 9:05am11.0 mg/dL7.0-18.0Immature Granulocyte % (Auto)March 03, 2025 9:05amOctober 2024 9:05am0.1 %0.0-0.5Calcium LevelOct2024 9:05amOctober 2024 9:05am9.0 mg/dL8.5-10.1 Lymphocytes # (Auto)March 03, 2025 9:05amOctober 2024 9:05am1.9 10 3/uL1.2-3.8Chloride LevelOct2024 9:05amOctober 2024 9:98ut687 mmol/Y82-448Ctretksuhzc (%) (Auto)March 03, 2025 9:05amOctober 2024 9:05am27.5 %20.5-60.0Carbon Dioxide LevelOct2024 9:05amOctober 2024 9:05am21.7 mmol/L21.0-32.0Mean Corpuscular HemoglobinOct2024 9:05amOct2024 9:05am29.2 pg25.9-34.0CreatinineOct2024 9:05amOctober 2024 9:05am0.82 mg/dL0.70-1.30Mean Corpuscular Hemoglobin ConcentOct2024 9:05amOctober 2024 9:05am34.5 g/dL29.9-35.2 Estimated GFR ()March 03, 2025 9:05amOct2024 9:05am>60>=60 mL/min/1.73m 2Mean Corpuscular VolumeOct2024 9:05am March 03, 2025 9:05am84.8 fL80.0-94.0Estimated GFR (Non- March 03, 2025 9:05amOctober 2024 9:05am>60>=60 mL/min/1.73m 2 Monocytes # (Auto)March 03, 2025 9:05amOctober 2024 9:05am0.7 10 3/uL 0.3-0.8GlobulinOctober 2024 9:05amOctober 2024 9:05am4.2 g/dL Monocytes (%) (Auto)March 03, 2025 9:05amOctober 2024 9:05am9.6 % 1.7-12.0Glucose LevelOct2024 9:05amOctober 2024 9:05am97 mg/dL 74-106Mean Platelet VolumeOct2024 9:05amOctober 2024 9:05am10.2 fL9.5-13.5Potassium LevelOct2024 9:05amOctober 2024 9:05am4.0 mmol/L3.5-5.1Neutrophils # (Auto)March 03, 2025 9:05amOctober 2024 9:05am4.1 10 3/uL1.4-6.5Sodium LevelOctober 2024 9:05amOctober 2024 9:10hj038 mmol/K435-584Xesjiyortbm (%) (Auto)March 03, 2025 9:05amOctober 2024 9:05am60.0 %43.0-75.0Total BilirubinOctober 2024 9:05amOctober 2024 9:05am1.2 mg/dLAbove high normal0.2-1.0Platelet CountOct2024 9:05amOctober 2024 9:64va490 10 3/cP654-536Wkhxe ProteinOctober 2024 9:05amOctober 2024 9:05am7.9 g/dL6.4-8.2Red Blood CountOctober 2024 9:05amOctober 2024 9:05am5.13 10 6/uL4.70-6.10Red Cell Distribution WidthOctmonroe county medical center 2024 9:05amOctober 2024 9:05am12.4 %11.0-15.0Corrected White Blood CountOctmonroe county medical center 2024 9:05amOctober 2024 9:05am6.8 10 3/uL 4.0-11.0 Vital Signs Vital Reading Result Reference Range Collection Date/Time Height 72 [in_i] March 01, 2025 7:36ipTtforj054.38 kgOctmonroe county medical center 2024 7:35amBody Tiaikpzcyaq15.2 [degF]97.6-99.0[facility] 2024 7:35amHeart Jmug398 /jur91-622 March 01, 2025 7:35amOxygen saturation by Pulse zorbmpap31 %95-100[facility] 2024 7:35amBP Nynpbkys339 mm[Hg]100-140[facility] 2024 7:35amBP Zpasxijoz27 mm[Hg]60-100Octmonroe county medical center 2024 7:35amBMI (Body Mass Index)61.7 kg/m2 March 01, 2025 7:76gzAmbhpw71 [in_i]March 21, 2025 12:53toUzmpsu924.57 kgNovlittle colorado medical center 2024 12:13pmBody Vxarsmakkap86.6 [degF]97.6-99.0[facility] 2024 12:13pmHeart Kqvr655 /jai17-784Xkpbtunz 11th, 2025 12:13pmOxygen saturation by Pulse aupreuwv51 %95-100[facility] 2024 12:13pmBP Ihzsyptp060 mm[Hg] 100-140Nov2024 12:13pmBP Xdzzxwqui08 mm[Hg]60-100Nov2024 12:13pmBMI (Body Mass Index)61.1 kg/f8Zzyvghfx 2024 12:16nyDntzzv01 [in_i]April 17, 2025 11:29uxRyymuj608.11 kgDecember 2024 11:03amBody Smciqkrficu16.6 [degF]97.6-99.0Dece2024 11:03amHeart Oplx218 /min 60-100April 17, 2025 11:03amOxygen saturation by Pulse lernlece69 %95-100 April 17, 2025 11:03amBP Itgfyfea919 mm[Hg]100-140April 17, 2025 11:03am BP Diastolic8 mm[Hg]60-100April 17, 2025 11:03amBMI (Body Mass Index)61.0 kg/b3AgltbwdjApril 17, 2025 11:03am Advance Directives Advance Directive Response Recorded Date/ Time Advance Directives No March 12:13pm Insurance Providers Guarantor Ta Duncan Address [address] [place] [id number] Info.Home Phone: Coverage Status Update:2024 Payer Group Member ID Coverage Type Subscriber Relationship to Subscriber Effective Date Expiration Date Addison LOMAX [id number] Bauer Id: [id number] [address] [place] [id number] Home Phone: Email: [email or web address] [id number] Cook , D Id: [id number] [address] [facility] [address] Home Phone: Encounters Encounter Location(s) Arrival/Admit Date Discharge/Departure Date Discharge/Departure Disposition Provider(s) Departed Physician/ Provider Office Visit -[facility] March 01, 2025 8:30am March 01, 2025 8:57am Discharged to home care or self care (routine discharge) Leatha Diaz APRN CNP Non-patient / Non-visit -[facility] O ctober 2024 10:05am Leatha Diaz APRN CNPNon-patient / Z[facility]fekc[facility] March 20, 2025 11:25amCatHany Greeneparted Physician/Provider Office Visit-[facility]2024 8:23amNovember 2024 8:55amDischarged to home care or self care (routine discharge)Leatha Diaz APRN CNPDeparted Physician/Provider [facility] 11:00amDecember 2024 11:35amDischarged to home care or self care (routine discharge)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 Recent Diagnosis Onset Date Admit Date Ankle pain, right Unknown March 01, 2025 8:30am Fatty liver Unknown March 01 8:30am Mixed hyperlipidemia Unknown February 8:30am Obesities, morbid Unknown March 01, 2025 8:30am Right foot pain Unknown March 01 8:30am Wellness examination Unknown February 8:30am Bipolar disorder Unknown March 01, 8:30am Ankle pain, right Unknown March 22, 2025 8:23am Right foot pain Unknown March 22, 025 8:23am Swelling of right ankle joint Unknown No vember 2024 8:23am Headache Unknown April 17 11:00am New onset of headaches Unknown April 17, 2025 11:00am Assessments Diagnosis Onset Date Resolution Status Admit Date Ankle pain, right acuteOctober 2024 8:30amFatty liveracuteOctober 2024 8:30amMixed hyperlipidemiaacuteOctober 2024 8:30amObesities, morbidacuteOctober 2024 8:30amRight foot painacuteOctober 2024 8:30amWellness examination acuteOctober 2024 8:30amBipolar disorderchronicOctober 2024 8:30am Ankle pain, rightacuteNovember 2024 8:23amRight foot painacuteNovember 2024 8:23amSwelling of right ankle jointacuteNovember 2024 8:23am HeadacheacuteDecember 2024 11:00amNew onset of headachesacuteDecember 2024 11:00am Plan of Treatment Author Leatha Diaz [facility]ored[facility] 2024 8:17amDiscussed dietary modifications, including decreasing red meat consumption, decreased alcohol consumption, avoiding fried foods, and cake and cookies, and sweets. Encouraged increasing fiber in diet and eat a diet rich in omega-3. Encouraged to exercise at least 150 minutes weekly. Barriers to plan of care have been addressed. Follow-up as directed. Patient given a copy of the plan of care. Due for labs. Discussed with pt will obtain x-ray of ankle and foot to rule of cause of the swelling/lump on ankle. Will call with results and further recommendations. Discussed with pt will obtain x-ray of ankle and foot to rule of cause of the swelling/lump on ankle. Will call with results and further recommendations. Personalized health advice given for screenings discussed and provided. Advanced care planning reviewed and/or information given as requested. Additional counseling was provided here today in regards to general topics regarding health education were discussed in detail. All preventative issues were discussed including remaining a nonsmoker, colorectal screening, the importance of proper sleep for brain health maintenance, maintaining a heart-healthy balanced diet, recognizing and addressing signs of anxiety and depression, maintaining positive relationships with family and friends. Continue on aripiprazole. Discussed with pt. that he needs to follow with psych. Discussed that Caleb Corbin and he is now in [place] [facility]. Pt verbalizes understanding and agrees to plan care. Patient is advised to work on healthy diet choices and appropriate servings, weight control, regular exercise as directed, reduced fat intake, and salt avoidance. Patient voiced understanding of this and agrees to this plan. Author Leatha Diaz [facility] HospitalAuthoredNovember 2024 9:02amDiscussed due to continued pain and swelling with a normal x-ray that will refer to ortho for further evaluation. Referral placed. Future Tests Future scheduled test information is unavailable Pending Tests Test Name Ordered Date Scheduled Date XR ankle RT min 3V* March 01, 2025 7:50am XR foot RT min 3V*March 01, 2025 7:50amComprehensive Metabolic PanelOctmonroe county medical center 2024 7:45am Future Visits Future appointment information is unavailable Future Procedures Future procedure information is unavailable Future Medications Future medication information is unavailable Patient Instructions Patient instructions are unavailable
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
--- OUTSIDE RECORDS SUMMARY | 2025-04-28 07:30 | XMS_ITS | Encounter Summary ---
Author Organization [facility] Healthcare Address [address] [facility] [place] [address] Care Team Providers Care Rn Long Term Care Name Role Phone Leatha Diaz LOGISTICS ENGINEER Primary Care Provider Reason for Visit * Rehabilitation - Outpatient (Routine) - AuthorizedSpecialtyDiagnoses / ProceduresReferred By ContactReferred To ContactPhysical Therapy Diagnoses Sprain of right ankle, unspecified ligament, initial encounter Procedures ID OFFICE/OUTPATIENT [facility] 60 MINUTES Santiago Miranda, LOGISTICS ENGINEER [address] [place] [address] Phone: tel: fax: Charli Schwartz, PT [address] [place] [address] Phone: tel: fax: Referral IDStatusReasonStart DateExpiration DateVisits RequestedVisits [id number] Specialty Services Required 52020 Encounter Details DateTypeDepartmentCare Team (Latest Contact Info)Ofytaykkvnl65/19/2025 7:30 AM ESTTreatment [facility] [address] [place] [address] Charli Schwartz, PT [address] [facility] [place] [address] Acute right ankle pain (Primary Dx) Social History Tobacco UseTypesPacks/DayYears UsedDateSmoking Tobacco: NeverSmokeless Tobacco: NeverSex and Gender InformationValueDate RecordedSex Assigned at BirthNot on fileLegal YgdNnwb3807/23/2022 8:05 PM EDTGender IdentityNot on fileSexual OrientationNot on filedocumented as of this encounter Progress Notes * Charli Schwartz, PT - 04/28/2025 7:00 AM EST Images from the original note were not included. Physical Therapy Physical Therapy Treatment Visit Patient Name: Ta Duncan Today's Date: 04/28/2025 Encounter Diagnoses Name Primary? Acute right ankle pain Yes Visit number: 4 Supervised time: 38 min Total time: 55 min Time in: 7:00 am Time out: 7:55 am Subjective Ta Duncan 19 y.o. male [...] area with mod swelling. Treatment Interventions Manual Therapy:x 10 min Gentle STM/massage, PROM, stretching (very TTP kept very gentle over inflamed area) Therapeutic Exercise:x 20 min per CRISS grid, ROM, flexibility, strength, balance/proprioception as able added strength in WBING and balance/proprioception work no noted exacerbation. Therapeutic Activity: Exercises to improve dynamic activities, functional tasks, functional mobility to return to prior activity level Modalities:x 8 min US (50%) 3.0 MHZ 1.1 w/cm2 lateral ankle. CP/ESU x 12 min Assessment: Pt demos good tolerance to CRISS progression. Added ESU/CP to try to break pain cycle and reduce inflammation. Continue POC progressing CRISS as able, add band to 4-way ankle next session. Plan R ankle pain, decreased Rom/strength, impaired [...] to avoid furtherimaging/intervention at DC from PT documented in this encounter Plan of Treatment DateTypeDepartmentCare Team (Latest Contact Info)Flbiblhwdrp54/23/2025 3:00 PM ESTTreatment [facility] [address] [place] [phone] Elisabeth Patton PTA [address] [place] [address] 05/08/2025 8:[address] [facility] [address] [place] [address] Santiago Miranda NP [address] [place], [place] [phone] documented as of this encounter Visit Diagnoses Diagnosis Acute right ankle pain- Primary documented in this encounter Care Teams Team MemberRelationshipSpecialtyStart DateEnd Date Leatha Diaz NP [address] [place] [address] [address] [place] [address] PCP - GeneralFamily Xighydkp10/14/25documented as of this encounter
--- NOTE | 2025-05-01 06:48 | MR_ITS ---
The [address] [address] Patient Name: JET HERRERA MRN: [facility]:[id number] date: 2005 Sex: M Assigned Patient Location: MRI Current Patient Location: MRI Accession/Order Number: [id number] Exam Date: 05/01/2025 07:00 Report Date: 05/01/2025 10:51 At the request of: SHERRI ORDOÑEZ Procedure: MR head/brain wo/w con MRI brain performed without and with contrast INDICATION: New onset headache, change in vision COMPARISON: None FINDINGS: No restricted diffusion. Ventricles and sulci unremarkable size and configuration for the patient's age. No shift midline structures. Basal cisterns are patent. Brain parenchyma unremarkable in signal intensity. Major intracranial intravascular flow voids preserved. Yiow-ef-dcichbxc paranasal sinus mucosal thickening noted. No abnormal postcontrast enhancement identified.. MR/MR head/brain wo/w con IMPRESSION: Zpwn-lk-yrismgot paranasal sinus disease. Otherwise essentially unremarkable MRI brain performed without and with contrast. Impression dictated by: Mick Sabillon M.D. 05/01/2025 10:51 AM Dictation Location: [place] [address] Electronically authenticated by: [id number] Y Date: 05/01/2025 10:51
--- OUTSIDE RECORDS SUMMARY | 2025-05-01 06:49 | XMS_ITS | Encounter Summary ---
Author Organization [facility] Healthcare Address [address] [facility] [place] [address] Care Team Providers Care Title Closer Name Role Phone Leatha Diaz NP Primary Care Provider Encounter Details DateTypeDepartmentCare Team (Latest Contact Info)Gsxifhssvag50/08/2025Travel Social History Tobacco UseTypesPacks/DayYears UsedDateSmoking Tobacco: NeverSmokeless Tobacco: NeverSex and Gender InformationValueDate RecordedSex Assigned at BirthNot on fileLegal SefXomc3107/23/2022 8:05 PM EDTGender IdentityNot on fileSexual OrientationNot on filedocumented as of this encounter Plan of Treatment DateTypeDepartmentCare Team (Latest Contact Info)Dgilxezvorm16/23/2025 3:00 PM ESTTreatment [facility] [address] [place] [address] Elisabeth Patton PTA [address] [place] [address] 05/08/2025 8:00 AM ESTOffice Visit [facility] [address] [place] [address] Santiago Miranda NP [address] [place], [place] [phone] documented as of this encounter Visit Diagnoses Not on filedocumented in this encounter Care Teams Team MemberRelationshipSpecialtyStart DateEnd Date Leatha Diaz NP [address] [place] [address] PCP - GeneralFamily Awqscahu27/14/25documented as of this encounter
--- OUTSIDE RECORDS SUMMARY | 2025-05-01 06:49 | XMS_ITS | Encounter Summary ---
Author Organization [facility] Healthcare Address [address] [facility] [place] [address] Care Team Providers Care Ticketer Name Role Phone Leatha Diaz NP Primary Care Provider Encounter Details DateTypeDepartmentCare Team (Latest Contact Info)Awxktcnzexg51/10/2025Travel Social History Tobacco UseTypesPacks/DayYears UsedDateSmoking Tobacco: NeverSmokeless Tobacco: NeverSex and Gender InformationValueDate RecordedSex Assigned at BirthNot on fileLegal HbaUofk0107/23/2022 8:05 PM EDTGender IdentityNot on fileSexual OrientationNot on filedocumented as of this encounter Plan of Treatment DateTypeDepartmentCare Team (Latest Contact Info)Zharvckyeft58/23/2025 3:00 PM ESTTreatment [facility] [address] [place] [address] Elisabeth Patton PTA [address] [place] [address] 05/08/2025 8:00 AM ESTOffice Visit [facility] [address] [place] [address] Santiago Miranda NP [address] [place], [place] [phone] documented as of this encounter Visit Diagnoses Not on filedocumented in this encounter Care Teams Team MemberRelationshipSpecialtyStart DateEnd Date Leatha Diaz NP [address] [place] [address] PCP - GeneralFamily Cqmbkeeh13/14/25documented as of this encounter
--- OUTSIDE RECORDS SUMMARY | 2025-05-01 06:49 | XMS_ITS | Encounter Summary ---
Author Organization [facility] Address [address] [place] [address] Care Team Providers Care Sales Specialist Name Role Phone Leatha Diaz NP Primary Care Provider Encounter Details DateTypeDepartmentCare Team (Latest Contact Info)Loupezqsnqu20/08/2025amboo flowsheet [facility] [address] [place] [address] Alisia Henning PTA Social History Tobacco UseTypesPacks/DayYears UsedDateSmoking Tobacco: NeverSmokeless Tobacco: NeverSex and Gender InformationValueDate RecordedSex Assigned at BirthNot on fileLegal EdhKrqe2707/23/2022 8:05 PM EDTGender IdentityNot on fileSexual OrientationNot on filedocumented as of this encounter Plan of Treatment DateTypeDepartmentCare Team (Latest Contact Info)Iaoncmfnzga55/23/2025 3:00 PM ESTTreatment [facility] [address] [place] [address] Elisabeth Patton PTA [address] [place], [place] [address] 05/08/2025 8:00 AM ESTOffice Visit [facility] [address] [place] [address] Santiago Miranda NP [address] [place] [address] documented as of this encounter Visit Diagnoses Not on filedocumented in this encounter Care Teams Team MemberRelationshipSpecialtyStart DateEnd Date Leatha Diaz, CHECO [address] [place] [address] PCP - GeneralFamily Ndkyhyum91/14/25documented as of this encounter
--- OUTSIDE RECORDS SUMMARY | 2025-05-01 06:49 | XMS_ITS | Encounter Summary ---
Author Organization [facility] Healthcare Address [address] [facility] [place] [address] Care Team Providers Care Pharmacy Technician Infusion Name Role Phone Leatha Diaz NP Primary Care Provider Encounter Details DateTypeDepartmentCare Team (Latest Contact Info)Jqezjegqzry85/19/2025Travel Social History Tobacco UseTypesPacks/DayYears UsedDateSmoking Tobacco: NeverSmokeless Tobacco: NeverSex and Gender InformationValueDate RecordedSex Assigned at BirthNot on fileLegal NjdFvbi7807/23/2022 8:05 PM EDTGender IdentityNot on fileSexual OrientationNot on filedocumented as of this encounter Plan of Treatment DateTypeDepartmentCare Team (Latest Contact Info)Sureizujqvi18/23/2025 3:00 PM ESTTreatment [facility] [address] [place] [address] Elisabeth Patton PTA [address] [place] [address] 05/08/2025 8:00 AM ESTOffice Visit [facility] [address] [place] [address] Santiago Miranda NP [address] [place], [place] [phone] documented as of this encounter Visit Diagnoses Not on filedocumented in this encounter Care Teams Team MemberRelationshipSpecialtyStart DateEnd Date Leatha Diaz NP [address] [facility] [place] [address] PCP - GeneralFamily Vlatwtvc69/14/25documented as of this encounter
--- OUTSIDE RECORDS SUMMARY | 2025-05-01 06:49 | XMS_ITS | Clinical Summary ---
Author Organization [facility] Healthcare Address [address] [place] [address] Care Team Providers Care Permit Agent Name Role Phone Leatha Diaz NP Primary Care Provider Allergies Active AllergyReactionsCriticalityNoted DateCommentsPenicillinsAnaphylaxis,Hives High01/07/2017 Active Problems ProblemNoted DateDiagnosed DateAcute right ankle pain04/10/2025 Encounters DateTypeDepartmentCare WgdlSzuvfsspaax72/19/2025 7:30 AM ESTTreatment [facility] [address] [place] [address] Charli Schwartz, PT Acute right ankle pain (Primary Dx)04/28/20252943Iubpcm73/10/4230Wbktrr66/08/2025 7:00 AM ESTTreatment [facility] [address] [place] [address] Alisia Henning, COMPUTER SCIENCE INSTRUCTOR Acute right ankle pain (Primary Dx)04/17/2025amboo flowsheet [facility] [address] [place] [address] Alisia Henning, COMPUTER SCIENCE INSTRUCTOR 04/17/20259484Khwjyh82/03/2025 7:00 AM ESTTreatment [facility] [address] [place] [address] Elisabeth Patton, TINA Acute right ankle pain (Primary Dx)04/12/20256798Sfplqs68/01/2025 7:00 AM EST Evaluation [facility] [address] [facility] [place] [address] Charli Schwartz, PT Acute right ankle pain (Primary Dx)04/10/2025Plan of Care Documentation [facility] [address] [facility] [place] [address] 04/10/2025amboo flowsheet [facility] [address] [facility] [place] [address] Charli Schwartz, PT 04/10/20254861Biipts04/17/2025 9:45 AM ESTOffice Visit [place] [address] [address] [facility] [place] [address] Santiago Miranda, CHECO Acute right ankle pain (Primary Dx); Sprain of right ankle, unspecified ligament, initial teyjlbovg94/17/2025amboo flowsheet [place] [address] [place] [address] Santiago Miranda NP 03/27/2025Travelfrom Last 3 Months Social History Tobacco UseTypesPacks/DayYears UsedDateSmoking Tobacco: NeverSmokeless Tobacco: Never Tobacco Cessation:Counseling Given: Not Answered Sex and Gender InformationValueDate RecordedSex Assigned at BirthNot on file Legal CpzTopx0107/23/2022 8:05 PM EDTGender IdentityNot on fileSexual Orientation Not on file Last Filed Vital Signs Vital SignReadingTime TakenCommentsBlood Pressure--Pulse--Temperature-- Respiratory Rate--Oxygen Saturation--Inhaled Oxygen Concentration--[place]322 kg (300 lb)05/14/2021 12:00 PM QJXVehkxv115.9 cm (6')05/14/2021 12:00 PM ESTBody Mass Index40.69005/14/2021 12:00 PM EST Plan of Treatment DateTypeDepartmentCare Team (Latest Contact Info)Jeadptdzycx86/23/2025 3:00 PM ESTTreatment [facility] [address] [place] [address] Elisabeth Patton PTA [address] [facility] [place] [address] 05/08/2025 8:00 AM ESTOffice Visit [facility] [address] [place] [address] Santiago Miranda NP [address] [place], [place] [phone] Insurance Care Teams Team MemberRelationshipSpecialtyStart DateEnd Date Leatha Diaz NP [address] [place] [address] PCP - GeneralFamily Xxkaykow55/14/25
--- OUTSIDE RECORDS SUMMARY | 2025-05-01 06:49 | XMS_ITS | Clinical Summary ---
Author Organization [facility] Address [address] [place] [address] Care Team Providers Care Credit And Collections Analyst Name Role Phone Baljit Briscoe Primary Care Provider [phone] Social History Tobacco UseTypesPacks/DayYears UsedDateSmoking Tobacco: Never AssessedSex and Gender InformationValueDate RecordedSex Assigned at BirthNot on fileLegal Sex Male12/18/2017 1:48 PM EDTGender IdentityNot on fileSexual OrientationNot on file Plan of Treatment Health MaintenanceDue DateLast DoneCommentsMMR Vaccine (1 of 1 - Standard series)07/11/2004DTaP/Tdap/Td Vaccine (1 - Tdap)07/11/2010Varicella Vaccine (1 of 2 - 13+ 2-dose series)07/11/2016HPV Vaccine (1 - Male 3-dose series) 07/11/2018Meningococcal ACWY Vaccine (1 - 2-dose series)2019Meningococcal B Vaccine (1 of 2 - Standard)2019Hepatitis B Vaccine (1 of 3 - 19+ 3-dose series)3COVID-19 Vaccine (1 - season)2025Influenza Vaccine (#1)2025HIB VaccineAged OutNo longer eligible based on patient's age to complete this topicHepatitis A VaccineAged OutNo longer eligible based on patient's age to complete this topicIPV VaccineAged OutNo longer eligible based on patient's age to complete this topicPneumococcal VaccineAged OutNo longer eligible based on patient's age to complete this topicRSV AntibodiesAged OutNo longer eligible based on patient's age to complete this topicRotavirus Vaccine Aged OutNo longer eligible based on patient's age to complete this topic Insurance * Guarantor: Sarahy REYES TypeRelation to PatientDate of BirthPhoneBilling AddressPersonal/CfcnvbXqzjxw08/17/1984 [facility] [place] [address] MemberSubscriberPlan / Payer (Effective for All Dates)Name:Ta Duncan Member ID:Not on file Relation to Subscriber:ChildName:KARINA REYES Date of :1985 (Home) Address: [facility] [place] [address] Payer ID:[facility] Group ID:Not on file Type:Other Address: [place] [id number] * Guarantor: Sarahy REYES TypeRelation to PatientDate of BirthPhoneBilling AddressPersonal/BlqxqwFqhkcq30/17/1982 [facility] [place] [address] * Guarantor: Sarahy REYES TypeRelation to PatientDate of BirthPhoneBilling AddressPersonal/EyjizbWqnntt57/17/1982 [facility] [place] [address] Care Teams Team MemberRelationshipSpecialtyStart DateEnd Baljit Robledo [address] [place] [address] PCP - GeneralFamily [facility]12/25/17
--- OUTSIDE RECORDS SUMMARY | 2025-05-01 06:49 | XMS_ITS | Patient Health Record ---
Author Organization [facility] Address [address] [place] [address] Care Team Providers Care Monitoring Coordinator Name Role Phone Caleb Corbin Primary Care Provider [phone] SHERRI ORDOÑEZ Unavailable [phone] Allergies Allergen (clinical drug ingredient) Drug/Non Drug Allergy documented on EMR Reaction Allergy Type Onset Date Status PenicillinanaphylaxisDrug Nyshnqb4210/27/2007ctive Reason For Referral Reason 09/12 *2nd attempt attempt, lvmsg requesting return call referral from PCP for med mgnt of anxiety, bipolar disorder Diagnosis 1 Encounter for screen ing examination for mental health and behavioral disorders (Z13.30) Referral Organization [facility] Referring Provider First Name SHERRI Referring Provider Last Name TIAGO Referring Provider Speciality [facility] icine Referred Organization [facility] [place] Referred Provider Caleb Corbin Referred Address [address] [place], [place],[address], Referred Provider Specialty Medicatio ns Referral Priority [...] some wayNearly every day(Consider Suicide Assessment Risk)Total Zzuue41AqbxqnjoydogeLszmdz DepressionDrug/Alcohol:Social InfoQuestionAnswerNotesAUDIT-C (Standard)Did you have a drink [...] in the past year?Less than monthly (1 point)Bzvyhm8PkwnnsswvwolmeCpkxdpklPjqgmgz Use:Social InfoQuestion AnswerNotesTobacco Control (Standard)Tobacco use:Nonsmoker Problems Problem Type SNOMED Code ICD Code Onset Dates Problem Status W/U Status Risk Notes Problem Mixed bipolar affect ifrah disorder, mild (122571864) Bipolar disorder, current episode mixed, mild (F31.61) Activeconfirmed Vital Signs Heart Rate 93 /min 10/12/2024 Qoxfnhoh90 %10/12/2024lood pressure whefnbdqq76 mm Hg10/12/20246157Riuzoo12 in 10/12/2024lood pressure gorzakst357 mm Hg10/12/20241893Uzuilg021.4 lbs10/12/2024MI 61.49 kg/m210/12/2024 Encounters Encounter Location Date Provider Diagnosis [place] [address] [place] [address] 10/12/2024 Kip Shaquille Bipolar disorder, cu rrent [...] Coverage End Date ANTHEM Primary [address] [place] [address] [id number] JAVIER GAVEMATTHEWelf - patient is the zvmftsk29 2024 Medical (General) History Medical History History ICD Code Anxiety DepressionBipolar DisorderSleep apneaSurgical History Surgery Date(Month/Year) appendectormy 03/2022 Hospitalization History Reason Date(Month/Year) Admitted to [facility] for depressi on 08/02
== END 2025-05-01 06:47 | disposition home or self-care (01) ==
LOC: MRI 06:46
PROVIDERS: PCP Nurse Practitioner Family; Visit Provider Nurse Practitioner Family
DX: R51.9 Headache, unspecified (principal); H53.9 Unspecified visual disturbance; H53.8 Other visual disturbances
CPT/HCPCS: 70553; A9575